=== PATIENT | male | born 1945 | race Caucasian/White ===

== ENCOUNTER 2022-12-01 10:36 | Outpatient (RCR) | payer OTHER, SELFPAY | END 2023-03-08 13:46 | disposition home or self-care (01) | PROVIDERS: PCP Family Medicine; Visit Provider Specialist | DX: M48.062 Spinal stenosis, lumbar region with neurogenic claudication (principal); M54.50 Low back pain, unspecified; Z74.09 Other reduced mobility; M62.81 Muscle weakness (generalized); Z51.89 Encounter for other specified aftercare | CPT/HCPCS: 97110; 97162 ==

== ENCOUNTER 2023-03-17 12:43 | Emergency (ER) | payer OTHER, SELFPAY ==
[2023-03-17 13:26] VITALS: BP 189/69; PULSE 100; RESP 16; TEMP 36.9; O2SAT 95; BMI 26.3
[2023-03-17 13:49] LABS: Appearance Urine Clear (Clear); Bilirubin Urine Negative (Negative); Blood Urine Trace-intact (Negative); Color Urine Yellow (Yellow); Glucose Urine Negative (Negative); Ketones Urine 1+ (Negative); Leukocyte Esterase Urine Negative (Negative); Nitrite Urine Negative (Negative); Protein Urine 1+ (Negative); Specific Gravity Urine 1.015 (1.000-1.030); Urobilinogen Urine 0.2 (0.2-1.0)
[2023-03-17 13:57] LABS: RBC Urine 0-2 (0-2); WBC Urine 0-2 (0-5)
--- NOTE | 2023-03-17 14:03 | ED_ITS ---
HPI - General Adult General Time Seen by Provider: 14:03 Date Seen: 03/17/23 Chief complaint: Back Injury/Pain Stated complaint: Pinched nerves in back Time Seen by Provider: 03/17/23 13:21 Source: patient Mode of arrival: wheelchair Limitations: physical limitation History of Present Illness HPI narrative: Patient is a 78 year white male has has significant lumbar spinal stenosis and Dr. Diamond terrell at [facility] is scheduled to do a decompression within the next 2 weeks. The patient reports his pain is intense. He has tried tramadol, tried oxycodone recently. He has used oxycodone 3 to 4 times a day without much relief. He is having trouble sleeping. He has not lost control of his bowel or bladder. His pain is just increased but he is feeling about the same as he has only just more pain. He denies significant weakness in his legs, he denies any bladder bowel incontinence as mention. He actually has imaging scheduled for tonight at 6:00 p.m. preoperatively. He has no history of sleep apnea or breathing difficulty., with exception of some mild COPD. He really has at his wits end in terms of pain and states ?I need help with this ?. Related Data Home Medications Medication Instructions Recorded Confirmed ascorbic acid (vitamin C) 500 mg 1 cap PO DAILY 08/05/22 03/17/23 capsule aspirin 325 mg tablet 325 mg PO QDAY 08/05/22 03/17/23 ergocalciferol (vitamin D2) 10 mcg 400 unit PO Q OTHER DAY 08/05/22 03/17/23 (400 unit) tablet latanoprost 0.005 % eye drops 1 drp ophthalmic (eye) QDAY 08/05/22 03/17/23 multivitamin (Multiple Vitamins 1 tab PO QDAY 08/05/22 03/17/23 tablet) nitroglycerin 0.4 mg sublingual 0.4 mg sublingual Q5-15M PRN 08/05/22 03/17/23 tablet Previous Rx's Medication Instructions Recorded alprazolam 0.25 mg tablet 0.25 mg PO BID PRN anxiety #60 tabs 12/17/22 simvastatin 20 mg tablet 20 mg PO QPM #180 tabs 02/01/23 lisinopril 20 mg tablet 20 mg PO DAILY #30 tabs 02/04/23 tramadol 50 mg tablet 50 - 100 mg (1 - 2 x 50 mg) PO Q6H 02/05/23 PRN pain #60 tabs oxycodone-acetaminophen 5 mg-325 1 tab PO Q6H PRN pain #28 tabs 03/15/23 mg tablet fentanyl 12 mcg/hr transdermal 1 patch transdermal Q72H #5 ea 03/17/23 patch Allergies Allergy/AdvReac Type Severity Reaction Status Date / Time No Known Allergies Allergy Unknown Unknown Verified 03/17/23 13:24 Review of Systems Status of ROS: Reports: 6 or more systems reviewed and unremarkable except as noted in History and below [facility] Medical History History of tinnitus (09/18/09) ?Z86.69 - Personal history of other diseases of the nervous system and sense organs (ICD-10) Surgical History S/P anal fissurectomy ?Z98.890 - Other specified postprocedural states (ICD-10) ?Z87.19 - Personal history of other diseases of the digestive system (ICD-10) Status post coronary artery stent placement ?Z95.5 - Presence of coronary angioplasty implant and graft (ICD-10) Status post cataract extraction ?Z98.49 - Cataract extraction status, unspecified eye (ICD-10) History of tonsillectomy and adenoidectomy (03/07/13) ?Z90.89 - Acquired absence of other organs (ICD-10) History of rhinoplasty (03/07/13) ?Z98.890 - Other specified postprocedural states (ICD-10) Social History Smoking Status: Current every day smoker What tobacco products do you use: cigarettes Smoking packs per day: 0 Smoking cigarettes per day: 0.0 Do you use any of these nicotine containing products: None Second hand tobacco smoke exposure: No How often do you have a drink containing alcohol: never AUDIT-C Alcohol total score: 0 Non-prescribed substance use: denies use service: Yes Exam Narrative: Exam Narrative: Objective: Patient's vital signs show elevated systolic pressure, afebrile Alert orient x3 Lower extremities show good strength sensation Good peripheral perfusion noted no swelling in the legs. Const: Vital Signs, click to edit/add: Vital Signs - 24 hr 03/17/23 13:26 03/17/23 14:28 03/17/23 15:02 Temperature 98.5 F 98.5 F Pulse Rate [Pulse Oximeter] 100 100 88 Respiratory Rate 16 18 18 Blood Pressure [Ri ght Upper Arm] 189/69 H 184/89 H 161/76 H Pulse Oximetry 95 94 Oxygen Delivery Me thod Room Air Room Air Course Vital Signs Vital signs: Initial Vital Signs Temperature 98.5 F 03/17/23 13:26 Temperature Source Temporal Artery Scan 03/17/23 13:26 Pulse Rate 100 03/17/23 13:26 Pulse Rhythm Regular 03/17/23 13:26 Pulse Strength 3+ Normal 03/17/23 13:26 Respiratory Rate 16 03/17/23 13:26 Blood Pressure 189/69 H 03/17/23 13:26 Blood Pressure Mean 109 H 03/17/23 13:26 Blood Pressure Position Sitting 03/17/23 13:26 Pulse Oximetry 95 03/17/23 13:26 Oxygen Delivery Method Room Air 03/17/23 13:26 Vital Signs Temperature 98.5 F 03/17/23 13:26 Pulse Rate 100 03/17/23 13:26 Respiratory Rate 16 03/17/23 13:26 Blood Pressure 189/69 H 03/17/23 13:26 Pulse Oximetry 95 03/17/23 13:26 Oxygen Delivery Method Room Air 03/17/23 13:26 Temperature 98.5 F 03/17/23 15:02 Pulse Rate 88 03/17/23 15:02 Respiratory Rate 18 03/17/23 15:02 Blood Pressure 161/76 H 03/17/23 15:02 Pulse Oximetry 94 03/17/23 15:02 Oxygen Delivery Method Room Air 03/17/23 15:02 Medical Decision Making MDM Narrative Medical decision making narrative: [age] year white male with history of severe low back pain from lumbar spinal stenosis, scheduled for surgery within the next couple of weeks. At this point he has been using oxycodone regularly without much benefit. I think it be reasonable to given injection of morphine 7.5 mg IM, I think we could try a fentanyl patch 12.5 mg every 72 hours, and he could use 1 oxycodone as annetta akthrough pain relief. Would use the oxycodone very sparingly and maybe only once or twice a day. He has no history of obstructive sleep apnea or breathing difficulty. I do think at this time he needs some relief from his pain and he is in quite a bit of discomfort and appears quite miserable. He will follow up as directed, if he is doing well, if problems or concerns or return to ED at any time. Lab Data Labs: Lab Results 03/17/23 Range/Units 13:36 Urine Color Yellow (Yellow) Urine Appearance Clear (Clear) Urine pH 6.0 (5.0-8.5) Ur Specific [place] 1.015 (1.000-1.030) Urine Protein 1+ A (Negative) Urine Glucose (UA) Negative (Negative) Urine Ketones 1+ A (Negative) Urine Blood Trace-intact A (Negative) Urine Nitrite Negative (Negative) Urine Bilirubin Negative (Negative) Urine Urobilinogen 0.2 (0.2-1.0) Ur Leukocyte Esterase Negative (Negative) Urine RBC 0-2 (0-2) Urine WBC 0-2 (0-5) Ur Squamous Epith Cells None (None-Few) Urine Bacteria None (None) Discharge Plan Discharge Clinical Impression: Lumbar spinal stenosis Patient Disposition: Home w/ Parent or Adult Condition: Stable Additional Instructions: Light activity, gentle range of motion, trial of a fentanyl patch, may use an oxycodone if pain is severe. Update surgeons in the next few days. Return to ED as needed. Activity Level: Light activity Discharge Diet: Regular Prescriptions: New fentanyl 12 mcg/hr patch 72 hour 1 patch transdermal Q72H Qty: 5 0RF No Action aspirin 325 mg tablet 325 mg PO QDAY multivitamin [Multiple Vitamins] Tablet 1 tab PO QDAY nitroglycerin 0.4 mg tablet, sublingual 0.4 mg sublingual Q5-15M PRN Rx Instructions: PRN CHEST PAIN/ MAX 3 DOSES latanoprost 0.005 % drops 1 drp ophthalmic (eye) QDAY ergocalciferol (vitamin D2) 10 mcg (400 unit) tablet 400 unit PO Q OTHER DAY ascorbic acid (vitamin C) 500 mg capsule 1 cap PO DAILY alprazolam 0.25 mg tablet 0.25 mg PO BID PRN (Reason: anxiety) Qty: 60 2RF simvastatin 20 mg tablet 20 mg PO QPM Qty: 180 1RF lisinopril 20 mg tablet 20 mg PO DAILY Qty: 30 0RF tramadol 50 mg tablet 50 - 100 mg PO Q6H PRN (Reason: pain) Qty: 60 1RF Hold Instructions: Order Change oxycodone-acetaminophen 5-325 mg tablet 1 tab PO Q6H PRN (Reason: pain) Qty: 28 0RF Follow Up/Referrals: Marco A Buckley MD [Primary Care Provider] - Stand Alone Forms: [employer] Info Instructions
[2023-03-17] MEDS: MORPHINE 10 MG/ML inj 7.5 MG IM (14:26)
[2023-03-17 14:28] VITALS: BP 184/89; PULSE 100; RESP 18
[2023-03-17 15:02] VITALS: BP 161/76; PULSE 88; RESP 18; TEMP 36.9; O2SAT 94
--- NOTE | 2023-03-17 15:04 | ED.NURSE ---
Pt is A & Ox4, tolerated IM medication and stated pain is less Instructions given and understands D/C information. notified of pt having higher BPs SBP 160-180s, okay with pt discharging.
== END 2023-03-17 15:05 | disposition home or self-care (01) ==
LOC: ED 14:15
PROVIDERS: Emergency Provider Family Medicine; PCP Family Medicine
DX: M48.061 Spinal stenosis, lumbar region without neurogenic claudication (principal)
CPT/HCPCS: 81001; 96372; 99283; 99284; J2270

== ENCOUNTER 2023-03-24 18:23 | Emergency (ER) | payer OTHER, SELFPAY ==
[2023-03-24] VITALS (16 sets, daily range): BP systolic 169–183; BP diastolic 81–88; PULSE 77–97; RESP 16–18; TEMP 37.1; O2SAT 92–96; BMI 26.9
--- NOTE | 2023-03-24 18:33 | ED_ITS ---
HPI - General Adult General Chief complaint: Abdominal Pain <Raulito Leslie MD - Last Filed: 03/30/23 11:27> Stated complaint: Abdominal pain--mass in body <Raulito Leslie MD - Last Filed: 03/30/23 11:27> Time Seen by Provider: 03/24/23 18:32 <Raulito Leslie MD - Last Filed: 03/30/23 11:27> History of Present Illness HPI narrative: 78-year-old man presenting to the emergency department upon recommendation from urgent care where he was to have a preop for radicular symptoms from lumbar spinal stenosis; anticipated decompression surgery. Concern expressed by provider was that he had a pelvic mass, lumbar MRI from 2 days ago thought to be diverticular related abscess and has elevated white count. No fever. Mr. Wu was anticipating spinal decompression for severe lumbar back pain from spinal stenosis. Sounds to have been struggling with constipation. Had been taking tramadol but this last week was changed also to a fentanyl patch which has improved degree of pain tremendously. Also takes 5/325 Percocet q.i.d. Would say that over last couple of weeks feels like has to strain more at stool. Producing little. Some discomfort more in in the low abdomen/pelvis over the last 2 days. Has also been having some urinary frequency. Has had 2 colonosc opies. Last 1 was 8 years ago. He reports that in 1 of the 2 a benign polyp was found. Underlying history of coronary artery disease status post stenting. Continues to smoke. Does not have known history of CHF either systolic or diastolic. Has however over last few days had significant painless swelling in his legs. <Raulito Leslie MD - Last Filed: 03/30/23 11:27> Related Data Home medications: Home Medications Medication Instructions Recorded Confirmed ascorbic acid (vitamin C) 500 mg 1 cap PO DAILY 08/05/22 03/24/23 capsule aspirin 325 mg tablet 325 mg PO QDAY 08/05/22 03/24/23 ergocalciferol (vitamin D2) 10 mcg 400 unit PO Q OTHER DAY 08/05/22 03/24/23 (400 unit) tablet latanoprost 0.005 % eye drops 1 drp ophthalmic (eye) QDAY 08/05/22 03/24/23 multivitamin (Multiple Vitamins 1 tab PO QDAY 08/05/22 03/24/23 tablet) nitroglycerin 0.4 mg sublingual 0.4 mg sublingual Q5-15M PRN 08/05/22 03/24/23 tablet Previous Rx's Medication Instructions Recorded alprazolam 0.25 mg tablet 0.25 mg PO BID PRN anxiety #60 tabs 12/17/22 simvastatin 20 mg tablet 20 mg PO QPM #180 tabs 02/01/23 lisinopril 20 mg tablet 20 mg PO DAILY #30 tabs 02/04/23 tramadol 50 mg tablet 50 - 100 mg (1 - 2 x 50 mg) PO Q6H 02/05/23 PRN pain #60 tabs fentanyl 12 mcg/hr transdermal 1 patch transdermal Q72H #5 ea 03/17/23 patch oxycodone-acetaminophen 5 mg-325 1 tab PO Q6H PRN pain #56 tabs 03/22/23 mg tablet amoxicillin 875 mg-potassium 1 tab PO BID 14 days #28 tabs 03/26/23 clavulanate 125 mg tablet <Raulito Leslie MD - Last Filed: 03/30/23 11:27> Allergies/adverse reactions: Allergies Allergy/AdvReac Type Severity Reaction Status Date / Time No Known Allergies Allergy Unknown Unknown Verified 03/24/23 18:41 <Raulito Leslie MD - Last Filed: 03/30/23 11:27> Review of Systems Status of ROS: Reports: 6 or more systems reviewed and unremarkable except as noted in History and below <Raulito Leslie MD - Last Filed: 03/30/23 11:27> [facility] Medical History: Medical History Peripheral edema ?R60.9 - Edema, unspecified (ICD-10) Pelvic mass in male ?R19.00 - Intra-abdominal and pelvic swelling, mass and lump, unspecified site (ICD-10) History of tinnitus (09/18/09) ?Z86.69 - Personal history of other diseases of the nervous system and sense organs (ICD-10) <Raulito Leslie MD - Last Filed: 03/30/23 11:27> Surgical History: Surgical History S/P anal fissurectomy ?Z98.890 - Other specified postprocedural states (ICD-10) ?Z87.19 - Personal history of other diseases of the digestive system (ICD-10) Status post coronary artery stent placement ?Z95.5 - Presence of coronary angioplasty implant and graft (ICD-10) Status post cataract extraction ?Z98.49 - Cataract extraction status, unspecified eye (ICD-10) History of tonsillectomy and adenoidectomy (03/07/13) ?Z90.89 - Acquired absence of other organs (ICD-10) History of rhinoplasty (03/07/13) ?Z98.890 - Other specified postprocedural states (ICD-10) <Raulito Leslie MD - Last Filed: 03/30/23 11:27> Social History: Social History Smoking Status: Current every day smoker What tobacco products do you use: cigarettes Smoking packs per day: 2 Smoking cigarettes per day: 40.0 Years smoked: 65 Smoking pack-years: 130.00 Do you use any of these nicotine containing products: None Second hand tobacco smoke exposure: No How often do you have a drink containing alcohol: never AUDIT-C Alcohol total score: 0 Non-prescribed substance use: denies use service: Yes <Raulito Leslie MD - Last Filed: 03/30/23 11:27> Exam Narrative: Exam Narrative: Very pleasant. Talkative. Oropharynx is moist. Dentures. Is breathing easily. Lungs appear to be clear. Heart with elevated rate in a regular rhythm without murmur rub or gallop though admittedly little distant. Abdomen with normoactive bowel sounds is full, soft, nontender though with repeated palpation a little uncomfortable in the low pelvis. I cannot appreciate a mass here. Is well-perfused peripherally. Lower extremities with a knee sleeve on the left knee. 1+ pitting edema above the knees through the feet. <Raulito Leslie MD - Last Filed: 03/30/23 11:27> Const: Vital Signs, click to edit/add: Vital Signs - 24 hr 03/24/23 18:36 03/24/23 18:45 03/24/23 19:00 Temperature 98.7 F Pulse Rate 92 93 Pulse Rate [Pulse Oximeter] 97 Respiratory Rate 16 Blood Pressure Blood Pressure [Ri ght Upper Arm] 176/88 H Pulse Oximetry 95 96 96 Oxygen Delivery Me thod Room Air 03/24/23 19:02 03/24/23 20:20 03/24/23 20:30 Temperature Pulse Rate 92 81 Pulse Rate [Pulse Oximeter] Respiratory Rate Blood Pressure 169/84 H Blood Pressure [Ri ght Upper Arm] Pulse Oximetry 92 93 Oxygen Delivery Me thod 03/24/23 20:32 03/24/23 20:45 03/24/23 21:09 Temperature Pulse Rate 80 86 83 Pulse Rate [Pulse Oximeter] Respiratory Rate Blood Pressure 178/87 H 179/84 H Blood Pressure [Ri ght Upper Arm] Pulse Oximetry 92 92 95 Oxygen Delivery Me thod 03/24/23 21:10 03/24/23 21:15 03/24/23 21:30 Temperature Pulse Rate 81 78 79 Pulse Rate [Pulse Oximeter] Respiratory Rate Blood Pressure Blood Pressure [Ri ght Upper Arm] Pulse Oximetry 94 93 94 Oxygen Delivery Me thod 03/24/23 21:31 03/24/23 21:45 03/24/23 23:37 Temperature Pulse Rate 79 80 77 Pulse Rate [Pulse Oximeter] Respiratory Rate 18 Blood Pressure 179/81 H 183/86 H Blood Pressure [Ri ght Upper Arm] Pulse Oximetry 94 92 93 Oxygen Delivery Me thod Room Air 03/25/23 01:28 Temperature Pulse Rate Pulse Rate [Pulse Oximeter] 78 Respiratory Rate 18 Blood Pressure Blood Pressure [Ri ght Upper Arm] Pulse Oximetry 93 Oxygen Delivery Me thod Room Air <Raulito Leslie MD - Last Filed: 03/30/23 11:27> Vital Signs, click to edit/add: Vital Signs - 24 hr 03/24/23 18:36 03/24/23 18:45 03/24/23 19:00 Temperature 98.7 F Pulse Rate 92 93 Pulse Rate [Pulse Oximeter] 97 Respiratory Rate 16 Blood Pressure Blood Pressure [Ri ght Upper Arm] 176/88 H Pulse Oximetry 95 96 96 Oxygen Delivery Me thod Room Air 03/24/23 19:02 03/24/23 20:20 03/24/23 20:30 Temperature Pulse Rate 92 81 Pulse Rate [Pulse Oximeter] Respiratory Rate Blood Pressure 169/84 H Blood Pressure [Ri ght Upper Arm] Pulse Oximetry 92 93 Oxygen Delivery Me thod 03/24/23 20:32 03/24/23 20:45 03/24/23 21:09 Temperature Pulse Rate 80 86 83 Pulse Rate [Pulse Oximeter] Respiratory Rate Blood Pressure 178/87 H 179/84 H Blood Pressure [Ri ght Upper Arm] Pulse Oximetry 92 92 95 Oxygen Delivery Me thod 03/24/23 21:10 03/24/23 21:15 03/24/23 21:30 Temperature Pulse Rate 81 78 79 Pulse Rate [Pulse Oximeter] Respiratory Rate Blood Pressure Blood Pressure [Ri ght Upper Arm] Pulse Oximetry 94 93 94 Oxygen Delivery Me thod 03/24/23 21:31 03/24/23 21:45 03/24/23 23:37 Temperature Pulse Rate 79 80 77 Pulse Rate [Pulse Oximeter] Respiratory Rate 18 Blood Pressure 179/81 H 183/86 H Blood Pressure [Ri ght Upper Arm] Pulse Oximetry 94 92 93 Oxygen Delivery Me thod Room Air 03/25/23 01:28 Temperature Pulse Rate Pulse Rate [Pulse Oximeter] 78 Respiratory Rate 18 Blood Pressure Blood Pressure [Ri ght Upper Arm] Pulse Oximetry 93 Oxygen Delivery Me thod Room Air <River Moon MD - Last Filed: 03/25/23 02:17> Documenting provider has reviewed patient's vital signs: yes <Raulito Leslie MD - Last Filed: 03/30/23 11:27> Course Reevaluation(s) Time of Reevaluation #1: 01:09 <River Moon MD - Last Filed: 03/25/23 02:17> Reevaluation #1: Patient accepted in sign-out from Dr. Rodriguez. Please see his note for complete details. Briefly, this is a 78-year-old male who has been dealing with back pain for last several months, MRI done about a week ago demonstrated multilevel degeneration but also a soft tissue mass with air-fluid level in the pelvis, patient was referred to the emergency department for further evaluation. [place] [address], CT scan demonstrates two pelvic abscess not amenable to percutaneous drainage. Care discussed with general surgery at [place] who feels that because the abscess is deep, this is a surgical case that would be better off at a site with surgical ICU capability. 1:20 a.m. care was discussed with Dr. Chavez, hospitalist at [facility] who would like me to consult with Colorectal surgery. Care was discussed with colorectal surgeryat [facility], concern that the abscess is deep and abuts the spine, recommends consultation with [facility]. 1:51 a.m. Care discussed with Dr. Miller, [facility] colorectal who recommends transfer to [facility] ED for further evaluation. Patient accepted by Dr. Ashley, emergency department. Updated patient's spouse. <River Moon MD - Last Filed: 03/25/23 02:17> Vital Signs Vital signs: Initial Vital Signs Temperature 98.7 F 03/24/23 18:36 Temperature Source Temporal Artery Scan 03/24/23 18:36 Pulse Rate 97 03/24/23 18:36 Pulse Rhythm Regular 03/24/23 18:36 Pulse Strength 3+ Normal 03/24/23 18:36 Respiratory Rate 16 03/24/23 18:36 Blood Pressure 176/88 H 03/24/23 18:36 Blood Pressure Mean 117 H 03/24/23 18:36 Blood Pressure Position Semi-Fowlers 03/24/23 18:36 Pulse Oximetry 95 03/24/23 18:36 Oxygen Delivery Method Room Air 03/24/23 18:36 Vital Signs Temperature 98.7 F 03/24/23 18:36 Pulse Rate 97 03/24/23 18:36 Respiratory Rate 16 03/24/23 18:36 Blood Pressure 176/88 H 03/24/23 18:36 Pulse Oximetry 95 03/24/23 18:36 Oxygen Delivery Method Room Air 03/24/23 18:36 Temperature 98.7 F 03/24/23 18:36 Pulse Rate 86 03/25/23 02:21 Respiratory Rate 18 03/25/23 01:28 Blood Pressure 168/74 H 03/25/23 02:21 Pulse Oximetry 90 03/25/23 02:25 Oxygen Delivery Method Room Air 03/25/23 01:28 <Raulito Leslie MD - Last Filed: 03/30/23 11:27> Initial Vital Signs Temperature 98.7 F 03/24/23 18:36 Temperature Source Temporal Artery Scan 03/24/23 18:36 Pulse Rate 97 03/24/23 18:36 Pulse Rhythm Regular 03/24/23 18:36 Pulse Strength 3+ Normal 03/24/23 18:36 Respiratory Rate 16 03/24/23 18:36 Blood Pressure 176/88 H 03/24/23 18:36 Blood Pressure Mean 117 H 03/24/23 18:36 Blood Pressure Position Semi-Fowlers 03/24/23 18:36 Pulse Oximetry 95 03/24/23 18:36 Oxygen Delivery Method Room Air 03/24/23 18:36 Vital Signs Temperature 98.7 F 03/24/23 18:36 Pulse Rate 97 03/24/23 18:36 Respiratory Rate 16 03/24/23 18:36 Blood Pressure 176/88 H 03/24/23 18:36 Pulse Oximetry 95 03/24/23 18:36 Oxygen Delivery Method Room Air 03/24/23 18:36 Temperature 98.7 F 03/24/23 18:36 Pulse Rate 86 03/25/23 02:21 Respiratory Rate 18 03/25/23 01:28 Blood Pressure 168/74 H 03/25/23 02:21 Pulse Oximetry 90 03/25/23 02:25 Oxygen Delivery Method Room Air 03/25/23 01:28 <River Moon MD - Last Filed: 03/25/23 02:17> Medical Decision Making MDM Narrative Medical decision making narrative: Reviewing notes from urgent care provider today and post MRI report, recommendations look to be for a contrasted CT abdomen pelvis with IV and oral contrast to elucidate this pelvic mass. Will also do a bladder scan. Bladder scan for 115 mL. Had both CBC and comprehensive metabolic panel earlier today. Will add to that CRP. IV hydration. White count earlier today was 13.9. Hemoglobin is 10.9 down 3 and a half g since July of this year. Platelets are elevated at 575. Creatinine is 0.8. CT scan reviewed by me clearly shows pelvic mass with some inflammatory stranding. In the area of the sigmoid. See radiology read below. INDICATION: Pelvic mass seen on lumbar MRI, leukocytosis TECHNIQUE: CT abdomen and pelvis acquired with IV contrast. COMPARISON: MRI pelvis report FINDINGS: Lower chest: Mild subpleural pulmonary fibrotic changes. Liver: Unremarkable. Spleen: Unremarkable. Pancreas: Unremarkable. Gallbladder and bile ducts: Unremarkable. Adrenal glands: Unremarkable. Kidneys: Simple cyst on the right kidney. Mild left hydronephrosis and hydroureter down to the level of the fluid collections in the pelvis. GI tract: Wall thickening of the mid sigmoid colon with mild surrounding fat stranding. There are two rim enhancing air and fluid collections adjacent to the sigmoid colon. One measures 2.2 x 1.9 x 2.1 cm and is best seen on image 76 series 2. The adjacent, larger rim enhancing air and fluid collection measures 5.2 x 4.5 x 4.3 cm. Vascular structures: Aortoiliac calcifications. Lymph nodes: Unremarkable. Miscellaneous: Unremarkable. No free air or significant free fluid. Pelvic Organs: The left testicle is located in the inguinal canal. Bones: Moderate to severe multilevel degenerative disc and facet changes. No suspicious osseous lesions. IMPRESSION: Two fluid collections adjacent to the sigmoid colon. This may be sequelae of diverticulitis or neoplasm. There is some mild wall thickening of the mid sigmoid colon and mild surrounding fat stranding. The collections are unlikely to be able to be drained by an interventional radiology drain. Mild left hydronephrosis and hydroureter down to the level of the fluid collections in the pelvis. There is no stone within the ureter. The left testicle is located in the inguinal canal. This is of unknown acuity. Mild subpleural pulmonary fibrosis. Findings discussed with Dr. Leslie at 5:58 p.m. on March 24, 2023. Did discuss these findings with radiology. Furthermore went back to recheck location of this left testicle. It is easily placed within the scrotum. Concern of ability for IR access per radiology. Did discuss with our hospitalist and General surgery on-call whether not Mr. Wu is somebody we can care for here. Concern of location of these abscesses and potential complication/involvement of retroperitoneal space in the setting of comorbidities and need for SICU postop. Challenging tertiary facility bed situation at this point. We have been calling around. This point spoke with drop machine operator and then general surgery Dr. Blevins at [place] where Mr. Wu has been cared for prior. There would be accepting him on wait list. Has needed a couple of doses of Dilaudid for pain management. Continuing NPO at this point. Blood cultures were drawn times 2 and initiated on Zosyn. Will be handed off at change of shift <Raulito Leslie MD - Last Filed: 03/30/23 11:27> Medical Records Medical records reviewed: Yes I reviewed the patient's medical records <Raulito Leslie MD - Last Filed: 03/30/23 11:27> Lab Data Lab results reviewed: Yes I reviewed the patient's lab results <Raluito Leslie MD - Last Filed: 03/30/23 11:27> Labs: Lab Results 03/24/23 Range/Units 23:55 Lab Acknowledgement Test Added <Raulito Leslie MD - Last Filed: 03/30/23 11:27> Lab Results 03/24/23 Range/Units 23:55 Lab Acknowledgement Test Added <River Moon MD - Last Filed: 03/25/23 02:17> Discharge Plan Discharge Clinical Impression: Pelvic abscess, Diverticular disease, Peripheral edema, Ureteral obstruction, left <Raulito Leslie MD - Last Filed: 03/30/23 11:27> Patient Disposition: Xfer Other <Raulito Leslie MD - Last Filed: 03/30/23 11:27> Prescriptions: No Action aspirin 325 mg tablet 325 mg PO QDAY multivitamin [Multiple Vitamins] Tablet 1 tab PO QDAY nitroglycerin 0.4 mg tablet, sublingual 0.4 mg sublingual Q5-15M PRN Rx Instructions: PRN CHEST PAIN/ MAX 3 DOSES latanoprost 0.005 % drops 1 drp ophthalmic (eye) QDAY ergocalciferol (vitamin D2) 10 mcg (400 unit) tablet 400 unit PO Q OTHER DAY ascorbic acid (vitamin C) 500 mg capsule 1 cap PO DAILY fentanyl 12 mcg/hr patch 72 hour 1 patch transdermal Q72H Qty: 5 0RF alprazolam 0.25 mg tablet 0.25 mg PO BID PRN (Reason: anxiety) Qty: 60 2RF simvastatin 20 mg tablet 20 mg PO QPM Qty: 180 1RF lisinopril 20 mg tablet 20 mg PO DAILY Qty: 30 0RF tramadol 50 mg tablet 50 - 100 mg PO Q6H PRN (Reason: pain) Qty: 60 1RF Hold Instructions: Order Change oxycodone-acetaminophen 5-325 mg tablet 1 tab PO Q6H PRN (Reason: pain) Qty: 56 0RF amoxicillin-pot clavulanate 875-125 mg tablet 1 tab PO BID 14 Days Qty: 28 0RF <Raulito Leslie MD - Last Filed: 03/30/23 11:27> Stand Alone Forms: MyHealth Info Instructions <Raulito Leslie MD - Last Filed: 03/30/23 11:27>
--- NOTE | 2023-03-24 19:02 | CRLHL7_ITS ---
For Patients: As a result of the Century Cures Act, medical imaging exams and procedure reports are released immediately into your electronic medical record. You may view this report before your referring provider. If you have questions, please contact your health care provider. INDICATION: Pelvic mass seen on lumbar MRI, leukocytosis TECHNIQUE: CT abdomen and pelvis acquired with IV contrast. COMPARISON: MRI pelvis report FINDINGS: Lower chest: Mild subpleural pulmonary fibrotic changes. Liver: Unremarkable. Spleen: Unremarkable. Pancreas: Unremarkable. Gallbladder and bile ducts: Unremarkable. Adrenal glands: Unremarkable. Kidneys: Simple cyst on the right kidney. Mild left hydronephrosis and hydroureter down to the level of the fluid collections in the pelvis. GI tract: Wall thickening of the mid sigmoid colon with mild surrounding fat stranding. There are two rim enhancing air and fluid collections adjacent to the sigmoid colon. One measures 2.2 x 1.9 x 2.1 cm and is best seen on image 76 series 2. The adjacent, larger rim enhancing air and fluid collection measures 5.2 x 4.5 x 4.3 cm. Vascular structures: Aortoiliac calcifications. Lymph nodes: Unremarkable. Miscellaneous: Unremarkable. No free air or significant free fluid. Pelvic Organs: The left testicle is located in the inguinal canal. Bones: Moderate to severe multilevel degenerative disc and facet changes. No suspicious osseous lesions. IMPRESSION: Two fluid collections adjacent to the sigmoid colon. This may be sequelae of diverticulitis or neoplasm. There is some mild wall thickening of the mid sigmoid colon and mild surrounding fat stranding. The collections are unlikely to be able to be drained by an interventional radiology drain. Mild left hydronephrosis and hydroureter down to the level of the fluid collections in the pelvis. There is no stone within the ureter. The left testicle is located in the inguinal canal. This is of unknown acuity. Mild subpleural pulmonary fibrosis. Findings discussed with Dr. Leslie at 5:58 p.m. on March 24, 2023. Please note that all CT scans at this facility use dose modulation, iterative reconstruction, and/or weight-based dosing when appropriate to reduce radiation dose to as low as reasonably achievable. Dictated by Luanne Mishra MD @ 03/24/2023 9:10:46 PM (Electronically Signed)
[2023-03-24] MEDS: 0.9 % SODIUM CHLORIDE 1000 ml 1,000 ML IV (19:25)
[2023-03-24] MEDS: HYDROmorphone 0.5 mg/0.5 ml inj IVP (20:53)
[2023-03-24] MEDS: PIPERACILLIN/TAZOBACTAM 3.375 GM in 0.9 % SODIUM CHLORIDE Mini-bag 100 ML IVPB (22:15)
[2023-03-24] MEDS: HYDROmorphone 0.5 mg/0.5 ml inj 1 MG IVP (23:51)
[2023-03-25] MEDS: 0.9 % SODIUM CHLORIDE 1000 ml 1,000 ML 150 ML IV (00:01)
[2023-03-25 01:28] VITALS: PULSE 78; RESP 18; O2SAT 93
--- NOTE | 2023-03-25 02:09 | PC.NURSE ---
[facility]
[2023-03-25 02:21] VITALS: BP 168/74; PULSE 86; O2SAT 90
[2023-03-25 02:25] VITALS: O2SAT 90
[2023-03-25] MEDS: HYDROmorphone 0.5 mg/0.5 ml inj IVP (02:30)
--- NOTE | 2023-03-25 02:39 | PC.NURSE ---
Addendum entered by Aria Galaviz RN 03/25/23 03:02: all belongings sent with . Original Note: patient left via EMS.
== END 2023-03-25 02:40 | disposition other institution (70) ==
PROVIDERS: Family Medicine; Emergency Provider Family Medicine; PCP Family Medicine
DX: K65.1 Peritoneal abscess (principal); R60.0 Localized edema; N13.5 Crossing vessel and stricture of ureter without hydronephrosis
CPT/HCPCS: 36415; 51798; 74177; 80053; 82565; 84153; 86140; 87040; 87086; 94761; 96365; 96375; 96376; 99285; J1170; J2543; J7030; Q9967

== ENCOUNTER 2023-03-25 02:26 | Outpatient (CLI) | payer OTHER, SELFPAY | END 2023-03-25 02:27 | disposition home or self-care (01) | LOC: AMB 03-26 14:42 | PROVIDERS: PCP Family Medicine; Visit Provider Family Medicine | DX: K65.1 Peritoneal abscess (principal); K57.20 Diverticulitis of large intestine with perforation and abscess without bleeding | CPT/HCPCS: A0425; A0433 ==

== ENCOUNTER 2023-04-09 09:34 | Outpatient (CLI) | payer OTHER, SELFPAY | END 2023-04-09 09:35 | disposition home or self-care (01) | PROVIDERS: PCP Family Medicine; Visit Provider Family Medicine | DX: E78.5 Hyperlipidemia, unspecified (principal); I10 Essential (primary) hypertension; D64.9 Anemia, unspecified | CPT/HCPCS: 80048; 86140 ==

== ENCOUNTER 2023-04-20 09:26 | Outpatient (CLI) | payer OTHER, SELFPAY ==
--- NOTE | 2023-04-20 10:00 | CRLHL7_ITS ---
For Patients: As a result of the Century Cures Act, medical imaging exams and procedure reports are released immediately into your electronic medical record. You may view this report before your referring provider. If you have questions, please contact your health care provider. Indication: Peritoneal abscess Technique: Postcontrast CT abdomen and pelvis. 84 cc Isovue 370 intravenous contrast. Please note that all CT scans at this facility use dose modulation, iterative reconstruction, and/or weight-based dosing when appropriate to reduce radiation dose to as low as reasonably achievable. Comparison: 03/24/2023 Findings: Fibrotic changes are present in both lung bases. No free intraperitoneal air. No intrahepatic masses. Gallbladder normal. No calcified gallstones or biliary obstruction. The spleen is within normal limits. Normal adrenal glands. Simple cyst arises from the upper pole of the right kidney. Left extrarenal pelvis. Extensive vascular calcifications are present. There is ectasia of the aorta. No pancreatic mass. Similar appearance of the inguinal canal on the left with incomplete left testicular migration. Decreased size of abscess beneath the aortic bifurcation containing air and fluid measuring 3.2 cm. No air in the bladder wall. No fracture. Degenerative changes Impression: Decreased size of abscess superior to the sigmoid colon and inferior to the aortic bifurcation. Please note that all CT scans at this facility use dose modulation, iterative reconstruction, and/or weight-based dosing when appropriate to reduce radiation dose to as low as reasonably achievable. Dictated by Raulito Carey MD @ 04/20/2023 12:32:18 PM (Electronically Signed)
== END 2023-04-20 09:27 | disposition home or self-care (01) ==
PROVIDERS: PCP Family Medicine; Visit Provider Family Medicine
DX: K65.1 Peritoneal abscess (principal)
CPT/HCPCS: 74177; Q9967

== ENCOUNTER 2023-05-04 13:36 | Outpatient (CLI) | payer OTHER, SELFPAY ==
--- NOTE | 2023-05-04 14:00 | CRLHL7_ITS ---
For Patients: As a result of the Century Cures Act, medical imaging exams and procedure reports are released immediately into your electronic medical record. You may view this report before your referring provider. If you have questions, please contact your health care provider. Indication: PERITONEAL ABSCESS Technique: Postcontrast CT abdomen and pelvis. 84 cc Isovue 370 intravenous contrast. Please note that all CT scans at this facility use dose modulation, iterative reconstruction, and/or weight-based dosing when appropriate to reduce radiation dose to as low as reasonably achievable. Comparison: 04/20/2023 Findings: Mild fibrotic changes are present within both lower lobes. No pleural effusion. No intrahepatic mass is present. The adrenal glands are normal. Normal spleen. Pancreas normal. Normal gallbladder. Simple cyst arises from the upper pole of the right kidney, as before. Similar extrarenal pelvis on the left. No hydronephrosis. Normal bladder. Ureters normal. Atherosclerotic changes with ectasia of the aorta. Similar appearance of the inguinal canals. Normal appendix. Sigmoid diverticulosis. Persistent circumscribed air and fluid collection superior to the sigmoid colon in the presacral space measuring 3.2 cm. 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 Surgical consultation recommended. Please note that all CT scans at this facility use dose modulation, iterative reconstruction, and/or weight-based dosing when appropriate to reduce radiation dose to as low as reasonably achievable. Dictated by Raulito Carey MD @ 05/05/2023 1:12:51 PM (Electronically Signed)
== END 2023-05-04 13:37 | disposition home or self-care (01) ==
LOC: CT 13:37
PROVIDERS: PCP Family Medicine; Visit Provider Family Medicine
DX: K65.1 Peritoneal abscess (principal)
CPT/HCPCS: 74177; Q9967

== ENCOUNTER 2023-05-27 12:32 | Outpatient (CLI) | payer OTHER, SELFPAY ==
--- NOTE | 2023-05-27 13:00 | CRLHL7_ITS ---
For Patients: As a result of the Century Cures Act, medical imaging exams and procedure reports are released immediately into your electronic medical record. You may view this report before your referring provider. If you have questions, please contact your health care provider. Indication: F/U PERITONEAL ABSCESS Technique: CT Abdomen/Pelvis 81CC ISOVUE 370 and water prep Please note that all CT scans at this facility use dose modulation, iterative reconstruction, and/or weight-based dosing when appropriate to reduce radiation dose to as low as reasonably achievable. Comparison: 05/04/2023, 04/20/2023, 03/24/2023 Findings: There is no significant interval change in the walled-off abscess containing air and fluid within the posterior midline of the upper pelvis adjacent to the left common iliac vessels measuring 3.2 cm. No air in the bladder. No bowel obstruction. No recurrent diverticulitis. Appendix normal. Incompletely descended left testicle incidentally noted. Mild prominence of the left renal collecting system and left ureter. No solid renal mass. Vascular calcifications with ectasia of the aorta. Simple cyst arising from the upper pole of the right kidney. Mild fatty liver. Gallbladder distended. No biliary obstruction. Spleen normal. Normal adrenal glands. Pancreas normal. Mild fibrotic changes within both lung bases. Multilevel degenerative disc disease and facet degeneration throughout the lumbar spine. No vertebral body compression fracture. Impression: No significant interval change in the chronic walled-off abscess in the posterior midline of the upper pelvis. Mild persistent left hydroureteronephrosis. Please note that all CT scans at this facility use dose modulation, iterative reconstruction, and/or weight-based dosing when appropriate to reduce radiation dose to as low as reasonably achievable. Dictated by Raulito Carey MD @ 05/28/2023 11:14:44 AM (Electronically Signed)
[2023-05-27 13:14] LABS: Creatinine* 0.7 mg/dL (0.5-1.5); Estimated Glomerular Filt Rate 94 ml/min
== END 2023-05-27 12:33 | disposition home or self-care (01) ==
LOC: CT 12:32
PROVIDERS: PCP Family Medicine; Visit Provider Family Medicine
DX: K65.1 Peritoneal abscess (principal); N13.30 Unspecified hydronephrosis
CPT/HCPCS: 36415; 74177; 82565; Q9967

== ENCOUNTER 2023-06-08 09:25 | Outpatient (CLI) | payer OTHER, SELFPAY | END 2023-06-08 09:26 | disposition home or self-care (01) | LOC: LONREF 09:26 | PROVIDERS: PCP Family Medicine; Visit Provider Family Medicine | DX: K65.1 Peritoneal abscess (principal) | CPT/HCPCS: 86140 ==

== ENCOUNTER 2023-06-14 13:37 | Outpatient (CLI) | payer OTHER, SELFPAY ==
--- OUTSIDE RECORDS SUMMARY | 2023-06-18 20:40 | XMS_ITS | Continuity of Care Document ---
Author Name Unknown Organization [facility] Address [address] [place] [address] Phone Care Team Providers Care Special Events Manager Name Role Phone Magalie Palumbo MD Unavailable [...] C, [address], [place], [address], [place] tel:[phone] [facility] No Information 3 Linwood Amisathya. [facility] [place], [address] [place] [address] [address], [place], [place], [address] , [place]. tel:[phone] Office/Outpat ient Visit,Est, Mod [facility], [address], [place], [address], [place] tel:[phone] [facility] Spinal stenosis, lumbar region with neurogenic claudication 3 Mehbod Amir. [facility], [address] [place] [address] [address], [place], [address] , [place]. tel:[phone] Referring Provider: Juan Pablo Amaya, [facility] [address], [place], [address]. tel:[phone] Office/Outpat ient Visit,[facility], [facility], [address], [place], [address], [place] tel:[phone] [facility] Low back painSpinal stenosis, lumbar region with neurogenic claudication 1 Kenzie Leary. [facility], [address], [place] [facility] [place], [address] , [place]. tel:[phone] Referring Provider: Juan Pablo Amaya, [facility] [address], [place], [address]. tel:[phone] Family History Family Member Type Diagnosis Age At Onset No Information Payers Payer name Insurance type Covered democrat ID Authoriza tion(s) Hum[employer] Medicare Gold Choice Ramesh [id number] Social History Type Description Quantity Date [...]
--- OUTSIDE RECORDS SUMMARY | 2023-06-18 20:41 | XMS_ITS | Continuity of Care Document ---
Author Name Unknown Organization Mal[facility] Address [address] [place] [address] Phone Care Team Providers Care Statuary Painter Name Role Phone Emmanuel Marya ROMAN Unavailable [...] by oral route 2 times every week 42594 UNITS - Active Procedures Procedure Date Est [...] Providers Copied on Encounter MONSERRAT Ly, [address], [place], [place], [address], [place] tel:[phone] [facility] No Information 3 [facility]. [address], [place], [address], [place]. tel:[phone] Referring Provider: Kaleb Lee, [address], [place], [address] . tel:[phone] Est Pt Eval 25 Min [facility], [address], [place], [place], [address], [place] tel:[phone] [facility] back pain (chief complaint) Body mass index (BMI) 26.0-26.9, adultRadiculopathy, lumbar region 3 Emmanuel Marya. [address], [place], [address], [place]. tel:[phone] Referring Provider: Kaleb Lee, [address], [place], [address] . tel:[phone] [facility], [address], [place], [place], [address], [place] tel:[phone] [facility] No Information 3 Jesus Zapata. [address], [place], [place], [address], [place]. tel:[phone] Referring Provider: Benny Lee, [address], [place], [address] . tel:[phone] [facility], [address], [place], [address], [place] tel:[phone] [facility] back pain (chief complaint) Radiculopathy, lumbar regionRadiculopathy , lumbar region 3 [facility]. [address], [place], [address], [place]. tel:[phone] Referring Provider: Benny Lee, [address], [place], [address] . tel:[phone] [facility], [facility], [address], [place], [place], [address], [place] tel:[phone] [facility] No Information 3 Jesus Zapata. [address], [place], [place], [address], [place]. tel:[phone] Referring Provider: Benny Lee, [address], [place], [address] . tel:[phone] New Pt Eval [address] [facility], [facility], [address], [place], [place], [address], [place] tel:[phone] [facility] back pain (chief complaint) Radiculopathy, lumbar regionVertebrogenic low back painBody mass index (BMI) 27.0-27.9, adult Fe- 3 Foster Florin. [address], [place], [address], [place]. tel:[phone] Referring Provider: Kaleb Lee, [address], [place], [address] . tel:[phone] Family History Family Member Type Diagnosis Age At Onset No Information Payers Payer name Insurance type Covered alliance party ID Anne brian(s) Jacki Medicare PPO 16 [id number] Social History Type Description Quantity Date Captured [...]
== END 2023-06-14 13:38 | disposition home or self-care (01) ==
LOC: NFLDREF 06-18 20:39
PROVIDERS: PCP Family Medicine; Referring Provider Family Medicine; Visit Provider Family Medicine
DX: K65.1 Peritoneal abscess (principal)
CPT/HCPCS: 86140

== ENCOUNTER 2023-06-18 11:06 | Emergency (ER) | payer OTHER, SELFPAY ==
[2023-06-18 11:27] VITALS: BP 145/75; PULSE 72; RESP 18; TEMP 36.5; O2SAT 98; BMI 25.1
--- OUTSIDE RECORDS SUMMARY | 2023-06-18 12:13 | XMS_ITS | Continuity of Care Document ---
Author Name Unknown Organization [facility] Address [address] [place] [address] Phone Care Team Providers Care Squash Centre Manager Name Role Phone Emmanuel Marya ROMAN Unavailable Unavailable Allergies, Adverse Reactions, Alerts Substance Reaction Status Criticality No Known Allergies Active No Inform ation Medications Medication Instructions Dosage Effective Dates (start - stop) Status Comments alprazolam 0.25 mg tablet take 1 tablet by oral route 3 times every day 0.25 MG - Active aspirin 325 mg tablet take 2 tablet by oral route 5 times every day 650 MG - Active latanoprost 0.005 % eye drops instill 1 drop by ophthalmic route every day into affected eye(s) in the evening 1.00 drop - Active lisinopril 20 mg tablet take 1 tablet by oral route 2 times every day 20 MG - Active multivitamin tablet take 1 tablet by oral route every day for 1 day 1 tablet - Active nitroglycerin 0.[address] 1 tablet by sublingual route every 5 minutes as needed for chest pain. Do not exceed 3 doses in 15 minutes. 0.4 MG - Active simvastatin 40 mg tablet take 1 tablet by oral route every day in the evening 40 MG - Active tramadol 50 mg tablet take 1 tablet by oral route every 12 hours as needed 50 MG - Active Vitamin C 500 mg tablet take 2 tablet by oral route every day 2 tablet - Active Vitamin D2 1,250 mcg (50,000 unit) capsule take 1 capsule by oral route 2 times every week 78275 UNITS - Active Procedures Procedure Date Est Pt Eval 25 Min Inject, Spine, Lumb/sacr, Epi/subarc w/ img Guid Inject, Spine, Lumb/sacr, Epi/subarc w/ img Guid Verified No Separate Anesthesia 023 New Pt Eval 60 Min Advance Directives Directive Yes / No Effective Date File Name No Information Encounters Encounter Description Practice Location Reason(s) For Visit Diagnoses Date Provider Providers Copied on Encounter MONSERRAT Ly, [address], [place], [place], [id number], [place] tel:[phone] [facility] No Information 3 [facility]. [address], [place], [address], [place]. tel:[phone] Referring Provider: Kaleb Lee, [address], [place], [address] . tel:[phone] Est Pt Eval 25 Min [facility], [address], [place], [place], [address], [place] tel:[phone] [facility] back pain (chief complaint) Body mass index (BMI) 26.0-26.9, adultRadiculopathy, lumbar region 3 Emmanuel Marya. [address], [place], [address], [place]. tel:[phone] Referring Provider: Kaleb Lee, [address], [place], [address] . tel:[phone] [facility], [address], [place], [place], [address], [place] tel:[phone] [facility] [place] No Information 3 Jesus Zapata. [address], [address], [place], [place], [address], [place]. tel:[phone] Referring Provider: Benny Lee, [address], [place], [address] . tel:[phone] [facility], [address], [place], [address], [place] tel:[phone] [facility] back pain (chief complaint) Radiculopathy, lumbar regionRadiculopathy , lumbar region 3 [facility]. [address], [place], [address], [place]. tel:[phone] Referring Provider: Benny Lee, [address], [place], [address] . tel:[phone] [facility], [facility], [address], [place], [place], [address], [place] tel:[phone] [facility] No Information 3 Jesus Zapata. [address], [address], [place], [place], [address], [place]. tel:[phone] Referring Provider: Benny Lee, [address], [place], [address] . tel:[phone] New Pt Eval 60 Min [facility], [facility], [address], [place], [place], [address], [place] tel:[phone] [facility] back pain (chief complaint) Radiculopathy, lumbar regionVertebrogenic low back painBody mass index (BMI) 27.0-27.9, adult Fe- 3 Foster Florin. [address], [place], [address], [place]. tel:[phone] Referring Provider: Kaleb Lee, [address], [place], [address] . tel:[phone] Family History Family Member Type Diagnosis Age At Onset No Information Payers Payer name Insurance type Covered alliance party ID Anne brian(s) Jacki Medicare PPO 16 [id number] Social History Type Description Quantity Date Captured Comments Alcohol Use Details Unknown Caffeine Use Details Unknown Tobacco Use Status Smoking Status No Information Sex Male Chief Complaint And Reason For Visit No Information Reason For Referral Reason For Referral No Information Plan Of Treatment Date Type Action Status Goal Tobacco cessation counseling completed Goal Lifestyle education regardin g diet completed Goal Lifestyle education regardin g diet completed Referral Referred To: Physical Therapy Ordered: Referrals: Physical Therapy. Evaluate and treat ordered History Of Present Illness Encounter Date Complaint History Of Prese nt Illness back pain Location of pain is lower back. Pain is radiated to the pelvis and left knee. back pain Location of pain is lower back. back pain Location of pain is lower back. Pain is radiated to the Right Hip and Right Knee. The patient describes the pain as sharp and Sharp in the morning. Symptoms are aggravated by bending, daily activities, lifting, standing, twisting and walking. Symptoms are relieved by exercise, pain meds/drugs and physical therapy. Functional Status Date Functional Assessmen t No Information Instructions Date Instruction Additional Infor waiion -Ordered Intracept p rocedure today, implant team will meet with you today to discuss the procedure-Per prior authorization for the intracept procedure, need to complete one session of physical therapy, ordered today and scheduling will reach out to create an appointment-Follow up with [facility] in one month or as needed, telehealth ok Related to Radiculopathy, lumbar region Lifestyle education regarding di et Related to Body mass index [BMI] 26.0-26.9, adult - Follow up in the c linic to discuss the results of the injection Related to Radiculopathy, lumbar region - Beginning tracking and authorization for intraceptLiterature provided today Related to Vertebrogenic low back pain - Schedule lumbar ep idural steroid injection as desiredOrdered today- Follow up in the clinic 2-3 weeks following the injection Related to Radiculopathy, lumbar region Lifestyle education regarding di et Related to Body mass index [BMI] 27.0-27.9, adult Assessments Type Assessment Date No Information Patient Care Teams Name Effective Dates (start - stop) Status Members No Information
--- OUTSIDE RECORDS SUMMARY | 2023-06-18 12:13 | XMS_ITS | Continuity of Care Document ---
Author Name Unknown Organization Mal[facility] Address [address] [place] [address] Phone Care Team Providers Care Graduation Coach Name Role Phone Emmanuel Marya ROMAN Unavailable [...] by oral route 2 times every week 23067 UNITS - Active Procedures Procedure Date Est [...] Providers Copied on Encounter MONSERRAT Ly, [address], [place], [place], [address], [place] tel:[phone] [facility] No Information 3 [facility]. [address], [place], [address], [place]. tel:[phone] Referring Provider: Kaleb Lee, [address], [place], [address] . tel:[phone] Est Pt Eval 25 Min Mal[facility], [address], [place], [place], [address], [place] tel:[phone] [facility] back pain (chief complaint) Body mass index (BMI) 26.0-26.9, adultRadiculopathy, lumbar region 3 Emmanuel Marya. [address], [place], [address], [place]. tel:[phone] Referring Provider: Kaleb Lee, [address], [place], [address] . tel:[phone] [facility], [address], [place], [place], [address], [place] tel:[phone] [facility] No Information 3 Jesus Zapata. [address], [place], [place], [address], [place]. tel:[phone] Referring Provider: Benny Lee, [address], [place], [address] . tel:[phone] [facility], [address], [place], [address], [place] tel:[phone] [facility] back pain (chief complaint) Radiculopathy, lumbar regionRadiculopathy , lumbar region 3 [facility]. [address], [place], [address], [place]. tel:[phone] Referring Provider: Benny Lee, [address], [place], [address] . tel:[phone] [facility], [facility], [address], [place], [place], [address], [place] tel:[phone] [facility] No Information 3 Jesus Zapata. [address], [place], [place], [address], [place]. tel:[phone] Referring Provider: Benny Lee, [address], [place], [address] . tel:[phone] New Pt Eval 60 Min [facility], [facility], [address], [place], [place], [address], [place] tel:[phone] [facility] back pain (chief complaint) Radiculopathy, lumbar regionVertebrogenic low back painBody mass index (BMI) 27.0-27.9, adult Fe- 3 Foster Florin. [address], [place], [address], [place]. tel:[phone] Referring Provider: Kaleb Lee, [address], [place], [address] . tel:[phone] Family History Family Member Type Diagnosis Age At Onset No Information Payers Payer name Insurance type Covered libertarian ID Anne brian(s) Jacki Medicare PPO 16 [id number] Social History Type Description Quantity Date Captured [...]
--- OUTSIDE RECORDS SUMMARY | 2023-06-18 12:13 | XMS_ITS | Continuity of Care Document ---
Author Name Unknown Organization [facility] Address [address] [place] [address] Phone Care Team Providers Care Fundraiser Name Role Phone Magalie Palumbo MD Unavailable Unavailable Allergies, Adverse Reactions, Alerts Substance Reaction Status Criticality No Known Allergies Active No Inform ation Medications Medication Instructions Dosage Effective Dates (start - stop) Status Comments SIMVASTATIN (unknown strength) Not Available - Active ASPIRIN (unknown strength) Not Available - Active LISINOPRIL (unknown strength) Not Available - Active Procedures Procedure Date Office/Outpatient Visit,Est, Mod 2022 Office/Outpatient Visit,New, Mod 2020 Advance Directives Directive Yes / No Effective Date File Name No Information Encounters Encounter Description Practice Location Reason(s) For Visit Diagnoses Date Provider Providers Copied on Encounter [facility], [address], [place], [address], [place] tel:[phone] [facility] No Information 3 Linwood Amisathya. [facility] [place], [address] [place] [address] [address], [place], [place], [address] , [place]. tel:[phone] Office/Outpat ient Visit,Est, Mod [facility], [address], [place], [address], [place] tel:[phone] [facility] - [facility] Spinal stenosis, lumbar region with neurogenic claudication 3 Mehbod Amir. [facility], [address] [place] [address] [address], [place], [address] , [place]. tel:[phone] Referring Provider: Juan Pablo Amaya, [facility] [address], [place], [address]. tel:[phone] Office/Outpat ient Visit,[facility], [facility], [address], [place], [address], [place] tel:[phone] [facility] Low back painSpinal stenosis, lumbar region with neurogenic claudication 1 Kenzie Leary. [facility], [address], [address], [facility], [address] , [place]. tel:[phone] Referring Provider: Juan Pablo Amaya, [facility] [address], [place], [address]. tel:[phone] Family History Family Member Type Diagnosis Age At Onset No Information Payers Payer name Insurance type Covered constitution party ID Authoriza tion(s) [employer] Medicare Gold Choice Ramesh [id number] Social History Type Description Quantity Date Captured Comments Sex Male Smoking Status No Information Chief Complaint And Reason For Visit No Information Reason For Referral Reason For Referral No Information Plan Of Treatment Date Type Action Status Appointment Theodore Wu BOOKED History Of Present Illness Encounter Date Complaint History Of Prese nt Illness No Information Functional Status Date Functional Assessmen t No Information Instructions Date Instruction Additional Infor mation No Information Assessments Type Assessment Date No Information Patient Care Teams Name Effective Dates (start - stop) Status Members No Information
--- OUTSIDE RECORDS SUMMARY | 2023-06-18 12:13 | XMS_ITS | Continuity of Care Document ---
Author Name Unknown Organization [facility] Address [address] [place] [address] Phone Care Team Providers Care Die Inspector Name Role Phone Linwood DAVID Amisathya Unavailable Unavailable Allergies, Adverse Reactions, Alerts Substance Reaction Status Criticality No Known Allergies Active No Inform ation Medications Medication Instructions Dosage Effective Dates (start - stop) Status Comments LISINOPRIL (unknown strength) Not Available - Active ASPIRIN (unknown strength) Not Available - Active SIMVASTATIN (unknown strength) Not Available - Active Procedures Procedure Date Office/Outpatient Visit,Est, Mod 2022 Office/Outpatient Visit,New, Mod 2020 Advance Directives Directive Yes / No Effective Date File Name No Information Encounters Encounter Description Practice Location Reason(s) For Visit Diagnoses Date Provider Providers Copied on Encounter [facility], [address], [place], [address], [place] tel:[phone] [facility] No Information 3 hbjames Amir. [facility] [place], [address], [place], [place], [address] , [place]. tel:[phone] Office/Outpat ient Visit,Est, Mod [facility], [address], [place], [address], [place] tel:[phone] [facility] - [facility] Spinal stenosis, lumbar region with neurogenic claudication 3 Mehbod Amir. [facility] [place], [address] [place] [address] [address], [place], [place], [address] , [place]. tel:[phone] Referring Provider: Juan Pablo Amaya, [facility] [address], [place], [address]. tel:[phone] Office/Outpat ient Visit,[facility], [facility], [address], [place], [address], [place] tel:[phone] [facility] Low back painSpinal stenosis, lumbar region with neurogenic claudication 1 Kenzie Leary. [facility], [address], [facility] [place], [address] , [place]. tel:[phone] Referring Provider: Juan Pablo Amaya, [facility] [address], [place], [address]. tel:[phone] Family History Family Member Type Diagnosis Age At Onset No Information Payers Payer name Insurance type Covered green party ID Authoriza tion(s) Hum[employer] Medicare Gold Choice Ramesh [id number] Social History Type Description Quantity Date [...]
== END 2023-06-18 12:23 | disposition left against medical advice (07) ==
PROVIDERS: Emergency Provider Emergency Medicine; PCP Family Medicine
DX: Z53.21 Procedure and treatment not carried out due to patient leaving prior to being seen by health care provider (principal)

== ENCOUNTER 2023-07-08 12:50 | Outpatient (CLI) | payer OTHER, SELFPAY ==
--- OUTSIDE RECORDS SUMMARY | 2023-07-08 12:53 | XMS_ITS | Continuity of Care Document ---
Author Name Unknown Organization [facility] Address [address] [place] [address] Phone Care Team Providers Care Welt Treater Name Role Phone Linwood DAVID Amisathya Unavailable [...] C, [address], [place], [id number], [place] tel:[phone] [facility] No Information 3 hbjames Amir. [facility] [place], [address], [place], [place], [id number] , [place]. tel:[phone] Office/Outpat ient Visit,Est, Mod [facility], [address], [place], [id number], [place] tel:[phone] [facility] Spinal stenosis, lumbar region with neurogenic claudication 3 Mehbod Amir. [facility] [place], [address] [place] [address] [address], [place], [id number] , [place]. tel:[phone] Referring Provider: Juan Pablo Amaya, [facility] [address], [place], [address]. tel:[phone] Office/Outpat ient Visit,[facility], [facility], [address], [place], [id number], [place] tel:[phone] [facility] Low back painSpinal stenosis, lumbar region with neurogenic claudication 1 Kenzie Leary. [facility], [address], [address], [facility] [place], [id number] , [place]. tel:[phone] Referring Provider: Juan Pablo Amaya, [facility] [address], [place], [address]. tel:[phone] Family History Family Member Type Diagnosis Age At Onset No Information Payers Payer name Insurance type Covered alliance party ID Authoriza tion(s) [employer] Medicare Gold Choice Ramesh CONTRERAS [id number] Social History Type Description Quantity Date Captured Comments Sex Male Smoking Status No Information Chief Complaint And Reason For Visit No Information Reason For Referral Reason For Referral No Information History Of Present Illness Encounter Date Complaint History Of Prese nt Illness No Information Functional Status Date Functional Assessmen t No Information Instructions Date Instruction Additional Infor mation No Information Assessments Type Assessment Date No Information Patient Care Teams Name Effective Dates (start - stop) Status Members No Information
--- NOTE | 2023-07-08 13:00 | CRLHL7_ITS ---
For Patients: As a result of the Century Cures Act, medical imaging exams and procedure reports are released immediately into your electronic medical record. You may view this report before your referring provider. If you have questions, please contact your health care provider. Indication: COLONIC DIVERTICULAR ABSCESS Technique: Pre and post-contrast CT abdomen and pelvis. CT Abdomen/Pelvis W/ 79CC [id number] Please note that all CT scans at this facility use dose modulation, iterative reconstruction, and/or weight-based dosing when appropriate to reduce radiation dose to as low as reasonably achievable. Comparison: 05/27/2023 Findings: Mild fibrotic change noted in the periphery of both lower lobes. No pleural effusion. No intrahepatic mass. No calcified gallstones. No biliary obstruction. The pancreas is normal. Normal spleen. Adrenal glands normal. Extrarenal pelvis is present bilaterally, left greater than right. Exophytic cyst upper pole right kidney. Atherosclerotic changes with ectasia of the aorta. Bladder normal. Undescended left testicle within the left inguinal canal. Persistent diverticular abscess in the posterior midline of the upper pelvis measuring approximately 3 cm. No disseminated free air. Multilevel degenerative disc disease. No vertebral body compression fracture. Noncontrast images demonstrate no evidence of renal stone. Impression: Persistent diverticular abscess measuring approximately 3 cm. Unchanged morphology of the left renal pelvis and left ureter. Please note that all CT scans at this facility use dose modulation, iterative reconstruction, and/or weight-based dosing when appropriate to reduce radiation dose to as low as reasonably achievable. Dictated by Raulito Carey MD @ 07/09/2023 9:01:22 AM (Electronically Signed)
[2023-07-08 13:37] LABS: Creatinine* 0.8 mg/dL (0.5-1.5); Estimated Glomerular Filt Rate 90 ml/min
== END 2023-07-08 12:51 | disposition home or self-care (01) ==
LOC: CT 12:52
PROVIDERS: PCP Family Medicine; Visit Provider Student in an Organized Health Care Education/Training Program
DX: K57.20 Diverticulitis of large intestine with perforation and abscess without bleeding (principal)
CPT/HCPCS: 36415; 74178; 82565; Q9967

== ENCOUNTER 2023-07-15 11:15 | Outpatient (CLI) | payer OTHER, SELFPAY ==
--- OUTSIDE RECORDS SUMMARY | 2023-07-17 05:44 | XMS_ITS | Continuity of Care Document ---
Author Name Unknown Organization [facility] Address [address] [place] [address] Phone Care Team Providers Care Heating Plant Superintendent Name Role Phone Magalie Palumbo MD Unavailable [...] C, [address], [place], [address], [place] tel:[phone] [facility] No Information 3 Linwood Amir. [facility], [address] [place] [address] [address], [place], [place], [address] , [place]. tel:[phone] Office/Outpat ient Visit,Est, Mod [facility], [address], [place], [address], [place] tel:[phone] [facility] Spinal stenosis, lumbar region with neurogenic claudication 3 Mehbod Amir. [facility], [address] [place] [address] [address], [place], [address] , [place]. tel:[phone] Referring Provider: Juan Pablo Amaya, [facility] [address], [place], [address]. tel:[phone] Office/Outpat ient Visit,[facility], [facility], [address], [place], [address], [place] tel:[phone] [facility] Low back painSpinal stenosis, lumbar region with neurogenic claudication 1 Kenzie Leary. [facility], [address], [facility] [place], [address] , [place]. tel:[phone] Referring Provider: Juan Pablo Amaya, [facility] [address], [place], [address]. tel:[phone] Family History Family Member Type Diagnosis Age At Onset No Information Payers Payer name Insurance type Covered green party ID Authoriza tion(s) Hum[employer] Medicare Gold Choice Ramesh CONTRERAS [id number] Social History Type Description Quantity Date [...]
--- OUTSIDE RECORDS SUMMARY | 2023-07-17 05:44 | XMS_ITS | Continuity of Care Document ---
Author Name Unknown Organization Malachi [facility] Address [address] [place] [address] Phone Care Team Providers Care Bear Keeper Name Role Phone Emmanuel Marya ROMAN Unavailable [...] by oral route 2 times every week [address] UNITS - Active Procedures Procedure Date Est [...] Providers Copied on Encounter MONSERRAT Ly, [address], [place], [place], [address], [place] tel:[phone] [facility] No Information 3 [facility]. [address], [place], [address], [place]. tel:[phone] Referring Provider: Kaleb Lee, [address], [place], [address] . tel:[phone] Est Pt Eval 25 Min Malachi [facility], [address], [place], [place], [address], [place] tel:[phone] [facility] back pain (chief complaint) Body mass index (BMI) 26.0-26.9, adultRadiculopathy, lumbar region 3 Emmanuel Marya. [address], [place], [address], [place]. tel:[phone] Referring Provider: Kaleb Lee, [address], [place], [address] . tel:[phone] Malachi [facility], [address], [place], [place], [address], [place] tel:[phone] [facility] No Information 3 Jesus Zapata. [address], [place], [place], [address], [place]. tel:[phone] Referring Provider: Benny Lee, [address], [place], [address] . tel:[phone] [facility], [address], [place], [address], [place] tel:[phone] [facility] back pain (chief complaint) Radiculopathy, lumbar regionRadiculopathy , lumbar region 3 [facility]. [address], [place], [address], [place]. tel:[phone] Referring Provider: Benny Lee, [address], [place], [address] . tel:[phone] [facility], [facility], [address], [place], [place], [address], [place] tel:[phone] [facility] No Information 3 Jesus Zapata. [address], [address], [place], [place], [address], [place]. tel:[phone] Referring Provider: Benny Lee, [address], [place], [address] . tel:[phone] New Pt Eval 60 Min [facility], [facility], [address], [place], [place], [address], [place] tel:[phone] [facility] back pain (chief complaint) Radiculopathy, lumbar regionVertebrogenic low back painBody mass index (BMI) 27.0-27.9, adult Fe- 3 Foster Florin. [address], [place], [address], [place]. tel:[phone] Referring Provider: Kaleb Lee, [address], [place], [address] . tel:[phone] Family History Family Member Type Diagnosis Age At Onset No Information Payers Payer name Insurance type Covered republican ID Anne brian(s) Jacki Medicare PPO 16 [id number] Social History Type Description Quantity Date Captured [...]
== END 2023-07-15 11:16 | disposition home or self-care (01) ==
LOC: AMB 07-17 05:42
PROVIDERS: PCP Family Medicine; Visit Provider Family Medicine
DX: R53.1 Weakness (principal); S99.912A Unspecified injury of left ankle, initial encounter; W01.0XXA Fall on same level from slipping, tripping and stumbling without subsequent striking against object, initial encounter; Y92.008 Other place in unspecified non-institutional (private) residence as the place of occurrence of the external cause
CPT/HCPCS: A0425; A0427

== ENCOUNTER 2023-07-15 11:52 | Emergency (ER) | payer OTHER, SELFPAY ==
[2023-07-15] VITALS (65 sets, daily range): BP systolic 89–162; BP diastolic 43–93; PULSE 96–116; RESP 18; TEMP 37.2–37.8; O2SAT 76–98; BMI 25.8
--- NOTE | 2023-07-15 12:14 | CRLHL7_ITS ---
For Patients: As a result of the Century Cures Act, medical imaging exams and procedure reports are released immediately into your electronic medical record. You may view this report before your referring provider. If you have questions, please contact your health care provider. INDICATION: Fall, hit head. COMPARISON: Radiographs 11/15/2020. TECHNIQUE: CT of the cervical spine without contrast. Multiplanar axial, coronal, and sagittal reformats were reconstructed. FINDINGS: No fracture or dislocation. Anterolisthesis C3 on C4, mild and unchanged. Straightening of the normal cervical lordosis. Multilevel advanced disc degenerative change. Multilevel facet degenerative change. Multilevel neural foraminal stenosis. No central canal stenosis. No focal bony lesions. Limited exam of the intracranial contents, soft tissues of the neck, and the lung apices is normal. IMPRESSION: No acute findings in the cervical spine. Degenerative change as above. Please note that all CT scans at this facility use dose modulation, iterative reconstruction, and/or weight-based dosing when appropriate to reduce radiation dose to as low as reasonably achievable. Dictated by Bozena Raymundo MD @ 07/15/2023 2:18:43 PM (Electronically Signed)
--- NOTE | 2023-07-15 12:14 | CRLHL7_ITS ---
For Patients: As a result of the Century Cures Act, medical imaging exams and procedure reports are released immediately into your electronic medical record. You may view this report before your referring provider. If you have questions, please contact your health care provider. INDICATION: Fall, hit head. COMPARISON: None. TECHNIQUE: CT of the brain/head without the use of IV contrast. Multiplanar axial, coronal, and sagittal reformats were reconstructed. FINDINGS: Generalized age-related cerebral parenchymal volume loss. Scattered small hypodensities consistent with chronic microvascular ischemic change. No acute or subacute territorial infarct. No intracranial hemorrhage. No mass, mass effect, or midline shift. T dilated ventricles are slightly out of proportion to the overall volume loss. Third and 4th ventricles are not significantly dilated. No fracture or focal osseous lesion. The mastoid and middle ears are clear. 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 The other paranasal sinuses are well aerated. Included orbit and globe are normal. IMPRESSION: 1. No acute intracranial hemorrhage or calvarial fracture. 2. Possible normal pressure hydrocephalus. Please note that all CT scans at this facility use dose modulation, iterative reconstruction, and/or weight-based dosing when appropriate to reduce radiation dose to as low as reasonably achievable. Dictated by Bozena Raymundo MD @ 07/15/2023 2:15:45 PM (Electronically Signed)
--- NOTE | 2023-07-15 12:19 | ED_ITS ---
HPI - General Adult General Date Seen: 07/15/23 Chief complaint: Fall/Minor Trauma Stated complaint: Fall Time Seen by Provider: 07/15/23 11:52 Source: patient Mode of arrival: EMS Limitations: no limitations History of Present Illness HPI narrative: Patient is a is a 78-year-old male history of coronary artery disease with stents, hypertension, hyperlipidemia, anxiety, abdominal abscess with surgery planned in July presenting to emergency department for a fall. Patient states today when he was out in his shop he felt like his legs became very weak causing him to fall. He states he has been him being issues with falls over the past here but is usually due to his right leg pain with his bad knee and hip. He states this felt different than just like the legs became weak suddenly. He is unable to get himself back up on his own in EMS was called. The time he arrived to the emergency department he felt like his strength was almost back to normal and was able to ambulate on his own. He states he caught himself with his arms but still hit his head against the floor. Denies any blood thinners. Denies lightheadedness, dizziness, fevers, chills, headache, vision changes, n umbness. He of note he says he has been having soft stools today he has been dealing with this for several weeks now. He has he has abscesses in his abdomen and is having surgery next month. He was initially on amoxicillin but was having soft stools a it sounds like he was switched to Cipro last week. He was having normal bowel movements again until today. He still says it was not watery but more ?mushy? just like his previous episodes. Is not having any chest pain, shortness of breath, abdominal pain. Related Data Home Medications Medication Instructions Recorded Confirmed ascorbic acid (vitamin C) 500 mg 1 cap PO DAILY 08/05/22 06/08/23 capsule aspirin 325 mg tablet 325 mg PO QDAY 08/05/22 06/08/23 ergocalciferol (vitamin D2) 10 mcg 400 unit PO Q OTHER DAY 08/05/22 06/08/23 (400 unit) tablet latanoprost 0.005 % eye drops 1 drp ophthalmic (eye) QDAY 08/05/22 06/08/23 multivitamin (Multiple Vitamins 1 tab PO QDAY 08/05/22 06/08/23 tablet) nitroglycerin 0.4 mg sublingual 0.4 mg sublingual Q5-15M PRN 08/05/22 06/08/23 tablet nicotine 11 mg/24 hr daily mg transdermal Q24H 04/09/23 06/08/23 transdermal patch Previous Rx's Medication Instructions Recorded simvastatin 20 mg tablet 20 mg PO QPM #180 tabs 02/01/23 lisinopril 20 mg tablet 20 mg PO DAILY #90 tabs 04/27/23 alprazolam 0.5 mg tablet 0.5 mg PO BID PRN anxiety #30 tabs 06/29/23 ciprofloxacin HCl 500 mg tablet 500 mg PO BID #20 tabs 06/29/23 metronidazole 500 mg tablet 500 mg PO BID #20 tabs 06/29/23 Allergies Allergy/AdvReac Type Severity Reaction Status Date / Time No Known Allergies Allergy Unknown Unknown Verified 07/15/23 18:18 Review of Systems Status of ROS: Reports: 10 or more systems reviewed and unremarkable except as noted in History and below PFSH PFS Medical History History of tinnitus (09/18/09) ?Z86.69 - Personal history of other diseases of the nervous system and sense organs (ICD-10) Surgical History S/P anal fissurectomy ?Z98.890 - Other specified postprocedural states (ICD-10) ?Z87.19 - Personal history of other diseases of the digestive system (ICD-10) Status post coronary artery stent placement ?Z95.5 - Presence of coronary angioplasty implant and graft (ICD-10) Status post cataract extraction ?Z98.49 - Cataract extraction status, unspecified eye (ICD-10) History of tonsillectomy and adenoidectomy (03/07/13) ?Z90.89 - Acquired absence of other organs (ICD-10) History of rhinoplasty (03/07/13) ?Z98.890 - Other specified postprocedural states (ICD-10) Social History Smoking Status: Current every day smoker What tobacco products do you use: cigarettes Smoking packs per day: 2 Smoking cigarettes per day: 40.0 Years smoked: 65 Smoking pack-years: 130.00 Do you use any of these nicotine containing products: None Second hand tobacco smoke exposure: No How often do you have a drink containing alcohol: never AUDIT-C Alcohol total score: 0 Non-prescribed substance use: denies use service: Yes Exam Narrative: Exam Narrative: Const: Well-nourished, Well-developed, in no distress Eyes: PERRL, no conjunctival injection, and symmetrical lids HENT: Atraumatic external nose and ears. Moist mucous membranes. Neck: Symmetric, trachea midline, No thyromegaly. CVS: RRR, No murmurs or gallops. Peripheral pulses 2+ and equal in all e xtremities RESP: Unlabored respiratory effort. Clear to auscultation bilaterally. GI: Nontender/Nondistended, No rebound or guarding. MSK:Extremities w/o deformity, Normal Active ROM Skin: Warm, Dry. No rashes or lesions. Neuro: Normal Muscle tone, No focal neurological deficits. Psych: Awake, Alert, & Oriented x3. Appropriate mood and affect. Const: Vital Signs, click to edit/add: Vital Signs - 24 hr 07/15/23 12:01 07/15/23 12:01 07/15/23 12:02 Temperature 98.9 F Pulse Rate 108 H 109 H Pulse Rate [Right Pulse Oximeter] 109 H Respiratory Rate 18 Blood Pressure 122/61 132/62 Blood Pressure [Ri ght Upper Arm] 122/61 Pulse Oximetry 96 96 94 Oxygen Delivery Me thod Room Air 07/15/23 12:03 07/15/23 12:10 07/15/23 12:20 Temperature Pulse Rate 108 H 110 H 109 H Pulse Rate [Right Pulse Oximeter] Respiratory Rate Blood Pressure Blood Pressure [Ri ght Upper Arm] Pulse Oximetry 96 96 94 Oxygen Delivery Me thod 07/15/23 12:57 07/15/23 13:00 07/15/23 13:02 Temperature Pulse Rate 115 H 111 H 107 H Pulse Rate [Right Pulse Oximeter] Respiratory Rate Blood Pressure 137/93 H Blood Pressure [Ri ght Upper Arm] Pulse Oximetry 82 L 98 96 Oxygen Delivery Me thod 07/15/23 13:07 07/15/23 13:32 07/15/23 18:16 Temperature 99.6 F Pulse Rate 116 H Pulse Rate [Right Pulse Oximeter] 106 H Respiratory Rate Blood Pressure 162/75 H 150/70 H Blood Pressure [Ri ght Upper Arm] 137/93 H Pulse Oximetry 78 L Oxygen Delivery Me thod 07/15/23 18:17 07/15/23 18:20 07/15/23 18:22 Temperature Pulse Rate 114 H 114 H 112 H Pulse Rate [Right Pulse Oximeter] Respiratory Rate Blood Pressure 147/67 H Blood Pressure [Ri ght Upper Arm] Pulse Oximetry 76 L 86 L 94 Oxygen Delivery Me thod 07/15/23 18:30 07/15/23 18:32 07/15/23 18:40 Temperature Pulse Rate 111 H 113 H 113 H Pulse Rate [Right Pulse Oximeter] Respiratory Rate Blood Pressure 145/68 H Blood Pressure [Ri ght Upper Arm] Pulse Oximetry 94 95 94 Oxygen Delivery Me thod 07/15/23 18:42 07/15/23 18:43 07/15/23 18:50 Temperature Pulse Rate 113 H 115 H 111 H Pulse Rate [Right Pulse Oximeter] Respiratory Rate Blood Pressure 125/61 Blood Pressure [Ri ght Upper Arm] Pulse Oximetry 94 94 94 Oxygen Delivery Me thod 07/15/23 18:51 07/15/23 18:52 07/15/23 19:00 Temperature Pulse Rate 113 H 113 H 109 H Pulse Rate [Right Pulse Oximeter] Respiratory Rate Blood Pressure 125/60 Blood Pressure [Ri ght Upper Arm] Pulse Oximetry 94 92 93 Oxygen Delivery Me thod 07/15/23 19:02 07/15/23 19:03 07/15/23 19:10 Temperature Pulse Rate 107 H 107 H 110 H Pulse Rate [Right Pulse Oximeter] Respiratory Rate Blood Pressure 113/49 L Blood Pressure [Ri ght Upper Arm] Pulse Oximetry 93 93 89 Oxygen Delivery Me thod 07/15/23 19:12 07/15/23 19:17 07/15/23 19:20 Temperature Pulse Rate 109 H 108 H 105 H Pulse Rate [Right Pulse Oximeter] Respiratory Rate Blood Pressure 100/48 L 103/49 L Blood Pressure [Ri ght Upper Arm] Pulse Oximetry 83 L 93 95 Oxygen Delivery Me thod 07/15/23 19:22 07/15/23 19:23 07/15/23 19:30 Temperature Pulse Rate 104 H 106 H 101 H Pulse Rate [Right Pulse Oximeter] Respiratory Rate Blood Pressure 104/59 L Blood Pressure [Ri ght Upper Arm] Pulse Oximetry 95 95 95 Oxygen Delivery Me thod 07/15/23 19:32 07/15/23 19:40 07/15/23 19:42 Temperature Pulse Rate 100 97 97 Pulse Rate [Right Pulse Oximeter] Respiratory Rate Blood Pressure 102/45 L 98/43 L Blood Pressure [Ri ght Upper Arm] Pulse Oximetry 96 96 96 Oxygen Delivery Me thod 07/15/23 19:50 07/15/23 19:52 07/15/23 20:51 Temperature 100.0 F H Pulse Rate 101 H 101 H Pulse Rate [Right Pulse Oximeter] Respiratory Rate Blood Pressure 99/58 L Blood Pressure [Ri ght Upper Arm] Pulse Oximetry 97 95 Oxygen Delivery Me thod Course Vital Signs Vital signs: Initial Vital Signs Temperature 98.9 F 07/15/23 12:01 Temperature Source Temporal Artery Scan 07/15/23 12:01 Pulse Rate 108 H 07/15/23 12:01 Pulse Rhythm Regular 07/15/23 12:01 Pulse Strength 3+ Normal 07/15/23 12:01 Respiratory Rate 18 07/15/23 12:01 Blood Pressure 122/61 07/15/23 12:01 Blood Pressure Mean 81 07/15/23 12:01 Blood Pressure Position Sitting 07/15/23 12:01 Pulse Oximetry 96 07/15/23 12:01 Oxygen Delivery Method Room Air 07/15/23 12:01 Vital Signs Temperature 98.9 F 07/15/23 12:01 Pulse Rate 108 H 07/15/23 12:01 Respiratory Rate 18 07/15/23 12:01 Blood Pressure 122/61 07/15/23 12:01 Pulse Oximetry 96 07/15/23 12:01 Oxygen Delivery Method Room Air 07/15/23 12:01 Temperature 100.0 F H 07/15/23 20:51 Pulse Rate 101 H 07/15/23 19:52 Respiratory Rate 18 07/15/23 12:01 Blood Pressure 99/58 L 07/15/23 19:52 Pulse Oximetry 95 07/15/23 19:52 Oxygen Delivery Method Room Air 07/15/23 12:01 Medications Administered Medications: Generic Name Dose Route Start Last Admin Trade Name Freq PRN Reason Stop Dose Admin Piperacillin Sod/Tazobactam 100 mls @ 200 mls/hr 07/15/23 14:00 07/15/23 15:11 Sod 3.375 gm/ Sodium Chloride IVPB Infused Q6H TALAT Infusion Discontinued Medications Generic Name Dose Route Start Last Admin Trade Name Jolanta PRN Reason Stop Dose Admin Acetaminophen 650 mg 07/15/23 17:30 07/15/23 20:51 Acetaminophen 325 Mg Tablet PO 07/15/23 17:31 650 mg ONCE ONE Administration Lactated Ringer's 1,000 mls @ 1,000 mls/hr 07/15/23 12:14 07/15/23 16:15 Lactated Ringers 1000 Ml IV 07/15/23 13:13 Infused .Q1H ONE Infusion Sodium Chloride 1,000 mls @ 1,000 mls/hr 07/15/23 15:15 07/15/23 16:15 0.9 % Sodium Chloride 1000 Ml IV 07/15/23 16:14 Infused .Q1H TALAT Infusion Sodium Chloride 250 mls @ 1,000 mls/hr 07/15/23 15:15 07/15/23 16:15 0.9 % Sodium Chloride 250 Ml IV 07/15/23 15:29 Infused .Q15M ONE Infusion Ondansetron HCl 4 mg 07/15/23 18:12 07/15/23 18:15 Ondansetron 2 Mg/Ml Inj IVP 07/15/23 18:13 4 mg ONCE ONE Administration Vancomycin HCl 125 mg 07/15/23 19:52 07/15/23 20:52 Vancomycin 125 Mg Capsule PO 07/15/23 19:53 125 mg ONCE ONE Administration Medical Decision Making [facility] Narrative Medical decision making narrative: Patient is a 78-year-old male presenting to the ED after a fall. He says the fall was due to lower extremity weakness thigh feels like it is resolving. He has been having soft stool and has been on chronic antibiotics now with his abd ominal abscesses. Right now he is tachycardic and dehydration is on the differential. I considered C diff but the stool description does not sound like C diff and he has been having these issues in the past so do not believe testing for C diff is necessary at this point as there is a relatively high false- positive rate. I will do a CT scan of his head and neck. He has no other injuries and further imaging is not necessary. With his tachycardia I will preemptively do a septic workup. This included CBC, CMP, lactate, troponin, EKG. Given 1 L of lactated Ringer's. CT scans of his head and cervical spine showed no concerning findings. His lab work returned with a white count of 24. He meets all SIRS criteria and has a lactic 2.2. Due to his known abscess there is concerned this could be the cause of his symptoms. Zosyn was started. I did speak to his colorectal surgeon and she is agreeable with this. While patient was in the emergency department his mental status seemed to worsen and we at have a delayed CT scan due to the scanner being down. While this was pending we did chest x-ray which showed possible mild pulmonary edema versus viral atypical pneumonia. He is not have any respiratory symptoms at this time and pneumonia seems unlikely. While he was getting his CT scan he had emesis and diarrhea. C diff was ordered. There is concerned he aspirated as he is now requiring oxygen and a repeat chest x-ray was ordered. Another L of fluid was also given because his blood pressure started to go down. He has not meet criteria for septic shock yet but we are watching him closely. CT scan returned showing hastings colitis and a smaller abscess. Is now 2 x 2.2 cm versus previously being 3. There is also the possibility of the start of a small-bowel obstruction. I spoke to [facility] again and at this time they state they do not believe the abscess is causing this but with the diarrhea they are concerned for C diff. Due to his worsening medical state they do recommend transfer at this time. Patient will be transferred to [facility]. Family is agreeable with this plan. Lab Data Labs: Lab Results 07/15/23 07/15/23 07/15/23 Range/Units 12:30 12:43 12:49 WBC 24.27 H (4.50-11.00) K/uL RBC 4.25 L (4.30-5.90) m/uL Hgb 13.1 L (13.5-17.5) gm/dL Hct 39.6 (37.0-53.0) % MCV 93 (80-100) fL MCH 31 (26-34) pg MCHC 33 (32-36) gm/dL RDW Coeff of Jose 14.2 (11.5-15.5) % Plt Count 326 (140-440) K/uL Neut % (Auto) 91.9 H (42.0-72.0) % Lymph % (Auto) 3.7 L (20-44) % [place] % (Auto) 3.8 (0.0-11.0) % Eos % (Auto) 0.3 (0.0-7.0) % Baso % (Auto) 0.1 (0.0-3.0) % Neut # (Auto) 22.30 H (1.7-7.0) K/uL Lymph # (Auto) 0.90 (0.90-2.90) K/uL [place] # (Auto) 0.90 (0.00-0.90) K/UL Eos # (Auto) 0.10 (0.00-0.50) K/uL Baso # (Auto) 0.00 (0.00-0.30) K/uL Abs Immat Gran (auto) 0.00 (0.00-0.30) K/uL Imm/Tot Granulo (auto) 0.2 % Diff Slide Review Acceptable Review (Acceptable) Sodium 136 (135-149) mmol/L Potassium 4.3 (3.6-5.1) mmol/L Chloride 102 (96-114) mmol/L Carbon Dioxide 26 (20-32) mmol/L Anion Gap 8 (7-15) mEq/L BUN 21 (7-30) mg/dL Creatinine 0.7 (0.5-1.5) mg/dL Estimated Creat Clear 56.00 Estimated GFR 94 ml/min Glucose 147 H (60-115) mg/dL Lactate 2.2 H (0.5-1.9) mmol/L Calcium 9.3 (8.4-10.6) mg/dL Total Bilirubin 0.4 (0.1-1.5) mg/dL AST 30 (12-35) U/L ALT 19 (4-50) U/L Alkaline Phosphatase 94 (40-150) U/L Troponin I < 0.01 L (0.01-0.04) ng/mL Total Protein 7.7 (6.0-8.3) g/dL Albumin 4.1 (3.3-5.0) g/dL Lipase 103 (23-300) U/L Urine Color Yellow (Yellow) Urine Appearance Clear (Clear) Urine pH 6.0 (5.0-8.5) Ur Specific [place] 1.020 (1.000-1.030) Urine Protein Negative (Negative) Urine Glucose (UA) Negative (Negative) Urine Ketones Negative (Negative) Urine Blood Negative (Negative) Urine Nitrite Negative (Negative) Urine Bilirubin Negative (Negative) Urine Urobilinogen 0.2 (0.2-1.0) Ur Leukocyte Esterase Negative (Negative) Urine RBC 0-2 (0-2) Urine WBC 0-2 (0-5) Ur Squamous Epith Cells Few (None-Few) Urine Bacteria None (None) Urine Mucus Moderate A (None) Stl C. diff Tox B Gene (Negative) Stl C. diff 027-NAP1-BI (Negative) SARS-CoV-2 (PCR) Negative SARS-CoV-2 (Negative) Influenza Type A (PCR) Negative PCR FLU A (Negative) Influenza Type B (PCR) Negative PCR FLU B (Negative) 07/15/23 Range/Units 18:16 WBC (4.50-11.00) K/uL RBC (4.30-5.90) m/uL Hgb (13.5-17.5) gm/dL Hct (37.0-53.0) % MCV (80-100) fL MCH (26-34) pg MCHC (32-36) gm/dL RDW Coeff of Jose (11.5-15.5) % Plt Count (140-440) K/uL Neut % (Auto) (42.0-72.0) % Lymph % (Auto) (20-44) % [place] % (Auto) (0.0-11.0) % Eos % (Auto) (0.0-7.0) % Baso % (Auto) (0.0-3.0) % Neut # (Auto) (1.7-7.0) K/uL Lymph # (Auto) (0.90-2.90) K/uL [place] # (Auto) (0.00-0.90) K/UL Eos # (Auto) (0.00-0.50) K/uL Baso # (Auto) (0.00-0.30) K/uL Abs Immat Gran (auto) (0.00-0.30) K/uL Imm/Tot Granulo (auto) % Diff Slide Review (Acceptable) Sodium (135-149) mmol/L Potassium (3.6-5.1) mmol/L Chloride (96-114) mmol/L Carbon Dioxide (20-32) mmol/L Anion Gap (7-15) mEq/L BUN (7-30) mg/dL Creatinine (0.5-1.5) mg/dL Estimated Creat Clear Estimated GFR ml/min Glucose (60-115) mg/dL Lactate (0.5-1.9) mmol/L Calcium (8.4-10.6) mg/dL Total Bilirubin (0.1-1.5) mg/dL AST (12-35) U/L ALT (4-50) U/L Alkaline Phosphatase (40-150) U/L Troponin I (0.01-0.04) ng/mL Total Protein (6.0-8.3) g/dL Albumin (3.3-5.0) g/dL Lipase (23-300) U/L Urine Color (Yellow) Urine Appearance (Clear) Urine pH (5.0-8.5) Ur Specific [place] (1.000-1.030) Urine Protein (Negative) Urine Glucose (UA) (Negative) Urine Ketones (Negative) Urine Blood (Negative) Urine Nitrite (Negative) Urine Bilirubin (Negative) Urine Urobilinogen (0.2-1.0) Ur Leukocyte Esterase (Negative) Urine RBC (0-2) Urine WBC (0-5) Ur Squamous Epith Cells (None-Few) Urine Bacteria (None) Urine Mucus (None) Stl C. diff Tox B Gene POSITIVE A* (Negative) Stl C. diff 027-NAP1-BI PRESUMPTIVE NEGATIVE (Negative) SARS-CoV-2 (PCR) (Negative) Influenza Type A (PCR) (Negative) Influenza Type B (PCR) (Negative) Imaging Data CT scan head: Radiologist's impression: 1. No acute intracranial hemorrhage or calvarial fracture. 2. Possible normal pressure hydrocephalus. Please note that all CT scans at this facility use dose modulation, iterative reconstruction, and/or weight-based dosing when appropriate to reduce radiation dose to as low as reasonably achievable. Dictated by Bozena Raymundo MD @ 07/15/2023 2:15:[address] scan cervical spine: Radiologist's impression: No acute findings in the cervical spine. Degenerative change as above. Please note that all CT scans at this facility use dose modulation, iterative reconstruction, and/or weight-based dosing when appropriate to reduce radiation dose to as low as reasonably achievable. Dictated by Bozena Raymundo MD @ 07/15/2023 2:18:43 PM Chest x-ray: Radiologist's impression: 1. Mild interstitial opacities bilaterally, may reflect component of mild pulmonary edema versus atypical viral process. 2. Mild cardiomegaly. Dictated by Campbell Azevedo MD @ 07/15/2023 5:37:48 PM Chest Xray post emesis: Radiologist's impression: No evidence of an acute pulmonary process. Dictated by Theodore Gallegos MD @ 07/15/2023 8:11:[address] scan abdomen and pelvis: Radiologist's impression: 1. Interval decrease in size of the peridiverticular abscess, now measuring 2.2 x 2.0 cm. 2. Pancolitis. 3. Prominent loop of nondilated fluid-filled small bowel in the left lower quadrant of the abdomen, with a transition point in the left hemipelvis. This may reflect isolated ileus versus early small bowel obstruction. 4. Stable mild left hydronephrosis and proximal left hydroureter, without obstructing calculus identified. This raises concern for possible ureteral stricture. Please note that all CT scans at this facility use dose modulation, iterative reconstruction, and/or weight-based dosing when appropriate to reduce radiation dose to as low as reasonably achievable. Dictated by Campbell Azevedo MD @ 07/15/2023 7:33:46 PM ECG Data Attestation: I personally reviewed and interpreted this ECG as follows: Prior ECG tracings: available for review Interpretation: Sinus tachycardia with a rate of 106 beats per minute, normal intervals, left axis deviation normal left fascicular walk smaller or waves in the lateral leads compared to previous EKG on file. No ST or T-wave abnormalities Critical Care Time Critical Care Time Critical Care Time: Yes Attestation: The patient required my highest level preparedness to intervene emergently and I personally spent this critical care time directly and personally managing the patient. This critical care time included: Obtaining a history; Examining the patient; Pulse oximetry; Ordering and reviewing of studies; Arranging urgent treatment with development of a management plan; Evaluation of patients response to treatment; Frequent reassessment discussions with other providers. This critical care time was performed to assess and manage the high probability of imminent life-threatening deterioration that could result in multiorgan failure. It was exclusive of separate billable procedures and treating other patients and teaching time. Total Critical Care Time in Minutes: 70 Discharge Plan Discharge Clinical Impression: C. difficile colitis Sepsis Qualifiers: Sepsis type: sepsis due to unspecified organism Sepsis acute organ dysfunction status: unspecified Qualified Code(s): A41.9 - Sepsis, unspecified organism Patient Disposition: Xfer Other Discharge Location: [facility] Condition: Guarded Prescriptions: No Action nicotine 11 mg/24 hr patch 24 hour transdermal Q24H aspirin 325 mg tablet 325 mg PO QDAY multivitamin [Multiple Vitamins] Tablet 1 tab PO QDAY nitroglycerin 0.4 mg tablet, sublingual 0.4 mg sublingual Q5-15M PRN Rx Instructions: PRN CHEST PAIN/ MAX 3 DOSES latanoprost 0.005 % drops 1 drp ophthalmic (eye) QDAY ergocalciferol (vitamin D2) 10 mcg (400 unit) tablet 400 unit PO Q OTHER DAY ascorbic acid (vitamin C) 500 mg capsule 1 cap PO DAILY simvastatin 20 mg tablet 20 mg PO QPM Qty: 180 1RF lisinopril 20 mg tablet 20 mg PO DAILY Qty: 90 3RF metronidazole 500 mg tablet 500 mg PO BID Qty: 20 0RF ciprofloxacin HCl 500 mg tablet 500 mg PO BID Qty: 20 0RF alprazolam 0.5 mg tablet 0.5 mg PO BID PRN (Reason: anxiety) Qty: 30 1RF Follow Up/Referrals: Marco A Buckley MD [Primary Care Provider] - Stand Alone Forms: [facility] Info Instructions
--- OUTSIDE RECORDS SUMMARY | 2023-07-15 12:25 | XMS_ITS | Continuity of Care Document ---
Author Name Unknown Organization [facility] Address [address] [place] [address] Phone Care Team Providers Care Assistant Produce Manager Name Role Phone Linwood DAVID Amisathya Unavailable [...] C, [address], [place], [id number], [place] tel:[phone] [facility] No Information 3 hbjames Amir. [facility], [address], [place], [place], [id number] , [place]. tel:[phone] Office/Outpat ient Visit,Est, Mod [facility], [address], [place], [id number], [place] tel:[phone] [facility] Spinal stenosis, lumbar region with neurogenic claudication 3 Mehbod Amir. [facility], [address] [place] [address] [address], [place], [place], [id number] , [place]. tel:[phone] Referring Provider: Juan Pablo Amaya, [facility] [address], [place], [address]. tel:[phone] Office/Outpat ient Visit,[facility], [facility], [address], [place], [id number], [place] tel:[phone] [facility] Low back painSpinal stenosis, lumbar region with neurogenic claudication 1 Kenzie Leary. [facility], [address], [address], [facility] [place], [place], [id number] , [place]. tel:[phone] Referring Provider: Juan Pablo Amaya, [facility] [address], [place], [address]. tel:[phone] Family History Family Member Type Diagnosis Age At Onset No Information Payers Payer name Insurance type Covered green party ID Authoriza tion(s) [employer] Gold Choice Ramesh CONTRERAS [id number] Social History Type Description Quantity Date [...]
--- OUTSIDE RECORDS SUMMARY | 2023-07-15 12:25 | XMS_ITS | Continuity of Care Document ---
Author Name Unknown Organization Malachi [facility] Address [address] [place] [address] Phone Care Team Providers Care Referral Nurse Name Role Phone Emmanuel Marya ROMAN Unavailable [...] by oral route 2 times every week [address] UNITS - Active Procedures Procedure Date Est [...] Providers Copied on Encounter MONSERRAT Ly, [address], [place], [place], [address], [place] tel:[phone] [facility] No Information 3 [facility]. [address], [place], [address], [place]. tel:[phone] Referring Provider: Kaleb Lee, [address], [place], [address] . tel:[phone] Est Pt Eval 25 Min Malachi [facility], [address], [place], [place], [address], [place] tel:[phone] [facility] back pain (chief complaint) Body mass index (BMI) 26.0-26.9, adultRadiculopathy, lumbar region 3 Emmanuel Marya. [address], [place], [address], [place]. tel:[phone] Referring Provider: Kaleb Lee, [address], [place], [address] . tel:[phone] [facility], [address], [place], [place], [address], [place] tel:[phone] [facility] No Information 3 Jesus Zapata. [address], [place], [place], [address], [place]. tel:[phone] Referring Provider: Benny Lee, [address], [place], [address] . tel:[phone] [facility], [address], [place], [address], [place] tel:[phone] [facility] back pain (chief complaint) Radiculopathy, lumbar regionRadiculopathy , lumbar region 3 [facility]. [address], [place], [address], [place]. tel:[phone] Referring Provider: Benny Lee, [address], [place], [address] . tel:[phone] [facility], [facility], [address], [place], [place], [address], [place] tel:[phone] [facility] No Information 3 Jesus Zapata. [address], [address], [place], [place], [address], [place]. tel:[phone] Referring Provider: Benny Lee, [address], [place], [address] . tel:[phone] New Pt Eval 60 Min [facility], [facility], [address], [place], [place], [address], [place] tel:[phone] [facility] back pain (chief complaint) Radiculopathy, lumbar regionVertebrogenic low back painBody mass index (BMI) 27.0-27.9, adult Fe- 3 Foster Florin. [address], [place], [address], [place]. tel:[phone] Referring Provider: Kaleb Lee, [address], [place], [address] . tel:[phone] Family History Family Member Type Diagnosis Age At Onset No Information Payers Payer name Insurance type Covered green party ID Anne brian(s) Jacki Medicare PPO 16 [id number] Social History Type Description Quantity Date Captured [...]
--- OUTSIDE RECORDS SUMMARY | 2023-07-15 12:25 | XMS_ITS | Continuity of Care Document ---
Author Name Unknown Organization [facility] Address [address] [place] [address] Phone Care Team Providers Care Appraiser Art Name Role Phone Linwood DAVID Amisathya Unavailable [...] C, [address], [place], [address], [place] tel:[phone] [facility] No Information 3 hbjames Amir. [facility], [address], [place], [place], [address] , [place]. tel:[phone] Office/Outpat ient Visit,Est, Mod [facility], [address], [place], [address], [place] tel:[phone] [facility] Spinal stenosis, lumbar region with neurogenic claudication 3 Mehbod Amir. [facility], [address] [place] [address] [address], [place], [address] , [place]. tel:[phone] Referring Provider: Juan Pablo Amaya, [facility] [address], [place], [address]. tel:[phone] Office/Outpat ient Visit,[facility], [facility], [address], [place], [address], [place] tel:[phone] [facility] Low back painSpinal stenosis, lumbar region with neurogenic claudication 1 Kenzie Leary. [facility], [address], [address], [facility] [place], [address] , [place]. tel:[phone] Referring Provider: Juan Pablo Amaya, [facility] [address], [place], [address]. tel:[phone] Family History Family Member Type Diagnosis Age At Onset No Information Payers Payer name Insurance type Covered libertarian ID Authoriza tion(s) Hum[employer] Medicare Gold Choice Ramesh CONTRERAS [id number] Social History Type Description Quantity Date [...]
--- OUTSIDE RECORDS SUMMARY | 2023-07-15 12:25 | XMS_ITS | Continuity of Care Document ---
Author Name Unknown Organization Malachi [facility] Address [address] [facility] [place] [address] Phone Care Team Providers Care Single Needle Tufting Machine Operator Name Role Phone Emmanuel Marya ROMAN Unavailable [...] by oral route 2 times every week [address] UNITS - Active Procedures Procedure Date Est [...] Providers Copied on Encounter MONSERRAT Ly, [address], [place], [place], [address], [place] tel:[phone] [facility] No Information 3 [facility]. [address], [place], [address], [place]. tel:[phone] Referring Provider: Kaleb Lee, [address], [place], [address] . tel:[phone] Est Pt Eval 25 Min Malachi [facility], [address], [place], [place], [address], [place] tel:[phone] [facility] back pain (chief complaint) Body mass index (BMI) 26.0-26.9, adultRadiculopathy, lumbar region 3 Emmanuel Marya. [address], [place], [address], [place]. tel:[phone] Referring Provider: Kaleb Lee, [address], [place], [address] . tel:[phone] Malachi [facility], [address], [place], [place], [address], [place] tel:[phone] [facility] No Information 3 Jesus Zapata. [address], [address], [place], [place], [address], [place]. tel:[phone] Referring Provider: Benny Lee, [address], [place], [address] . tel:[phone] [facility], [address], [place], [address], [place] tel:[phone] [facility] back pain (chief complaint) Radiculopathy, lumbar regionRadiculopathy , lumbar region 3 [facility]. [address], [place], [address], [place]. tel:[phone] Referring Provider: Benny Lee, [address], [place], [address] . tel:[phone] [facility], [facility], [address], [place], [place], [address], [place] tel:[phone] [facility] No Information 3 Jesus Zapata. [address], [address], [place], [place], [address], [place]. tel:[phone] Referring Provider: Benny Lee, [address], [place], [address] . tel:[phone] New Pt Eval 60 Min [facility], [facility], [address], [place], [place], [address], [place] tel:[phone] [facility] back pain (chief complaint) Radiculopathy, lumbar regionVertebrogenic low back painBody mass index (BMI) 27.0-27.9, adult Fe- 3 Foster Florin. [address], [place], [address], [place]. tel:[phone] Referring Provider: Kaleb Lee, [address], [place], [address] . tel:[phone] Family History Family Member Type Diagnosis Age At Onset No Information Payers Payer name Insurance type Covered constitution party ID Anne brian(s) Jacki Medicare PPO 16 [id number] Social History Type Description Quantity Date Captured [...]
[2023-07-15 12:40] LABS: Lactate* 2.2 mmol/L (0.5-1.9)
[2023-07-15 12:41] LABS: Basophils Percent Auto 0.1 % (0.0-3.0); Eosinophils Percent Auto 0.3 % (0.0-7.0); Hematocrit 39.6 % (37.0-53.0); Hemoglobin* 13.1 gm/dL (13.5-17.5); Immature Granulocytes Pct Auto 0.2 %; Lymphocytes Percent Auto 3.7 % (20-44); Mean Corpuscular HGB Conc 33 gm/dL (32-36); Mean Corpuscular Hemoglobin 31 pg (26-34); Mean Corpuscular Volume 93 fL (80-100); Monocytes Percent Auto 3.8 % (0.0-11.0); Neutrophils Percent Auto 91.9 % (42.0-72.0); Platelet Count* 326 K/uL (140-440); RDW Coefficient of Variation % 14.2 % (11.5-15.5); Red Blood Count 4.25 m/uL (4.30-5.90); White Blood Count* 24.27 K/uL (4.50-11.00)
[2023-07-15 12:43] LABS: Slide Review Reflex Yes
[2023-07-15 12:57] LABS: Albumin* 4.1 g/dL (3.3-5.0); Chloride* 102 mmol/L (96-114); Potassium* 4.3 mmol/L (3.6-5.1); Sodium* 136 mmol/L (135-149)
[2023-07-15 12:59] LABS: Bilirubin Total* 0.4 mg/dL (0.1-1.5); Creatinine* 0.7 mg/dL (0.5-1.5); Estimated Glomerular Filt Rate 94 ml/min
[2023-07-15 13:00] LABS: Alanine Aminotransferase* 19 U/L (4-50); Alkaline Phosphatase* 94 U/L (40-150); Anion Gap 8 mEq/L (7-15); Aspartate Amino Transferase* 30 U/L (12-35); Blood Urea Nitrogen* 21 mg/dL (7-30); Calcium* 9.3 mg/dL (8.4-10.6); Carbon Dioxide* 26 mmol/L (20-32); Glucose* 147 mg/dL (60-115); Lipase* 103 U/L (23-300); Total Protein* 7.7 g/dL (6.0-8.3)
[2023-07-15 13:04] LABS: Slide Review Acceptable Review (Acceptable)
[2023-07-15] MEDS: LACTATED RINGERS 1000 ML 1,000 ML IV (13:07)
[2023-07-15 13:12] LABS: Appearance Urine Clear (Clear); Bilirubin Urine Negative (Negative); Blood Urine Negative (Negative); Color Urine Yellow (Yellow); Glucose Urine Negative (Negative); Ketones Urine Negative (Negative); Leukocyte Esterase Urine Negative (Negative); Nitrite Urine Negative (Negative); Protein Urine Negative (Negative); Urobilinogen Urine 0.2 (0.2-1.0)
[2023-07-15 13:12] LABS: Troponin I* < 0.01 ng/mL (0.01-0.04)
[2023-07-15 13:21] LABS: Mucus Urine Moderate; RBC Urine 0-2 (0-2); Squamous Epithelial Cell Urine Few (None-Few); WBC Urine 0-2 (0-5)
[2023-07-15 13:29] LABS: PCR FLU A Negative PCR FLU A (Negative); PCR FLU B Negative PCR FLU B (Negative)
--- NOTE | 2023-07-15 13:29 | CRLHL7_ITS ---
For Patients: As a result of the Century Cures Act, medical imaging exams and procedure reports are released immediately into your electronic medical record. You may view this report before your referring provider. If you have questions, please contact your health care provider. INDICATION: Previous abdominal abscess. Leukocytosis. Weakness. TECHNIQUE: CT abdomen and pelvis acquired with 81 mL Isovue 370 IV contrast. COMPARISON: CT abdomen/pelvis dated 07/08/2023. FINDINGS: Lower chest: Significant motion artifact. Subpleural fibrotic changes in the bilateral lung bases. Liver: No suspicious focal hepatic lesion. Gallbladder and bile ducts: Unremarkable. Pancreas: Unremarkable. Spleen: Unremarkable. Adrenal glands: Unremarkable. Kidneys: Kidneys enhance symmetrically, without hydronephrosis. Stable cyst in the upper pole of the right kidney. Too small to characterize hypodense left renal lesions. Stable mild left hydronephrosis and proximal left hydroureter. Retroperitoneum: No lymphadenopathy. Bowel and mesentery: Pancolitis. Interval decrease in size of the peridiverticular abscess, now measuring 2.2 x 2.0 cm. Normal appendix. There is a prominent loop of nondilated fluid-filled small bowel in the left lower quadrant of the abdomen, with a transition point in the left hemipelvis. No significant ascites. Bladder: Unremarkable for degree of distension. Reproductive organs: Unremarkable. Pelvic lymph nodes: No lymphadenopathy. Vessels: Extensive atherosclerotic plaque. Abdominal wall: No acute abdominal wall abnormality. Bones: Multilevel degenerative changes of the spine. Bones are osteopenic. IMPRESSION: 1. Interval decrease in size of the peridiverticular abscess, now measuring 2.2 x 2.0 cm. 2. Pancolitis. 3. Prominent loop of nondilated fluid-filled small bowel in the left lower quadrant of the abdomen, with a transition point in the left hemipelvis. This may reflect isolated ileus versus early small bowel obstruction. 4. Stable mild left hydronephrosis and proximal left hydroureter, without obstructing calculus identified. This raises concern for possible ureteral stricture. Please note that all CT scans at this facility use dose modulation, iterative reconstruction, and/or weight-based dosing when appropriate to reduce radiation dose to as low as reasonably achievable. Dictated by Campbell Azevedo MD @ 07/15/2023 7:33:46 PM (Electronically Signed)
--- NOTE | 2023-07-15 13:29 | CRLHL7_ITS ---
For Patients: As a result of the Cures Act, medical imaging exams and procedure reports are released immediately into your electronic medical record. You may view this report before your referring provider. If you have questions, please contact your health care provider. INDICATION: Weakness, leukocytosis. TECHNIQUE: Chest 1 view(s) COMPARISON: None. FINDINGS: Mild cardiomegaly. Normal pulmonary vasculature. Lungs are hypoinflated. Mild interstitial opacities bilaterally. No layering pleural effusion. No pneumothorax. No acute chest wall abnormality. IMPRESSION: 1. Mild interstitial opacities bilaterally, may reflect component of mild pulmonary edema versus atypical viral process. 2. Mild cardiomegaly. Dictated by Campbell Azevedo MD @ 07/15/2023 5:37:48 PM (Electronically Signed)
[2023-07-15 14:13] LABS: SARS PCR* Negative SARS-CoV-2 (Negative)
[2023-07-15] MEDS: PIPERACILLIN/TAZOBACTAM 3.375 GM in 0.9 % SODIUM CHLORIDE Mini-bag 100 ML IVPB ×2 (14:29→14:31)
--- NOTE | 2023-07-15 14:37 | ED.NURSE ---
Pt went to the bathroom and wet his jeans. This nurse and aide tried to change him and he is verbally belligerent and refusing care. Doctor notified.
[2023-07-15] MEDS: 0.9 % SODIUM CHLORIDE 1000 ml 1,000 ML IV (15:16)
[2023-07-15] MEDS: 0.9 % SODIUM CHLORIDE 250 ml 250 ML 1000 ML IV (16:00)
--- NOTE | 2023-07-15 18:14 | CRLHL7_ITS ---
For Patients: As a result of the Century Cures Act, medical imaging exams and procedure reports are released immediately into your electronic medical record. You may view this report before your referring provider. If you have questions, please contact your health care provider. INDICATION: Possible aspiration TECHNIQUE: Chest 1 view. Permanently recorded images are archived. COMPARISON: CT abdomen and pelvis from the same day FINDINGS: Cardiovascular and mediastinum: Heart size and vasculature are normal in caliber and appearance. Lungs and pleural spaces: Left basilar atelectasis and/or fibrotic changes. No focal consolidation. No pleural effusion or pneumothorax. Bones and soft tissues: Tiny calcified intra-articular body in the right glenohumeral joint. Small calcification about the distal clavicle at the coracoclavicular interval, likely sequela of remote trauma. IMPRESSION: No evidence of an acute pulmonary process. Dictated by Theodore Gallegos MD @ 07/15/2023 8:11:30 PM (Electronically Signed)
[2023-07-15] MEDS: ONDANSETRON 2 MG/ML inj 4 MG IVP (18:15)
[2023-07-15 20:33] LABS: CDIFFEPI 027 PRESUMPTIVE NEGATIVE (Negative)
[2023-07-15 20:36] LABS: C.Difficile POSITIVE (Negative)
--- NOTE | 2023-07-15 20:37 | PC.NURSE ---
positive Cdiff per lab. Reported to Dr Kirby
[2023-07-15] MEDS: ACETAMINOPHEN 325 MG TABLET 650 MG PO (20:51)
[2023-07-15] MEDS: VANCOMYCIN 125 MG CAPSULE PO (20:52)
[2023-07-15 20:59] LABS: Lactate* 0.9 mmol/L (0.5-1.9)
--- NOTE | 2023-07-15 22:50 | ED.NURSE ---
report to [facility]s for transfer
== END 2023-07-15 22:52 | disposition other institution (70) ==
PROVIDERS: Emergency Provider Student in an Organized Health Care Education/Training Program; PCP Family Medicine
DX: A04.72 Enterocolitis due to Clostridium difficile, not specified as recurrent (principal); A41.9 Sepsis, unspecified organism
CPT/HCPCS: 36415; 70450; 71045; 72125; 74177; 80053; 81001; 83605; 83690; 84484; 85025; 87040; 87493; 87631; 93005; 96365; 96375; 99284; 99291; A9270; J2405; J2543; J7030; J7050; J7120; Q9967

== ENCOUNTER 2023-07-15 22:34 | Outpatient (CLI) | payer OTHER, SELFPAY ==
--- OUTSIDE RECORDS SUMMARY | 2023-07-17 06:46 | XMS_ITS | Continuity of Care Document ---
Author Name Unknown Organization [facility] Address [address] [place] [address] Phone Care Team Providers Care Multiple Cut Off Saw Operator Name Role Phone Linwood DAVID Amisathya Unavailable [...] C, [address], [place], [address], [place] tel:[phone] [facility] No Information 3 hbjames Amir. [facility], [address], [place], [place], [address] , [place]. tel:[phone] Office/Outpat ient Visit,Est, [facility], [address], [place], [address], [place] tel:[phone] [facility] [place] [facility] Spinal stenosis, lumbar region with neurogenic claudication 3 Mehbod Amir. [facility], [address] [place] [address] [address], [place], [address] , [place]. tel:[phone] Referring Provider: Juan Pablo Amaya, [facility] [address], [place], [address]. tel:[phone] Office/Outpat ient Visit,[facility], [facility], [address], [place], [address], [place] tel:[phone] [facility] Low back painSpinal stenosis, lumbar region with neurogenic claudication 1 Kenzie Leary. [facility], [address], [facility] [place], [address] , [place]. tel:[phone] Referring Provider: Juan Pablo Amaya, [facility] [address], [place], [address]. tel:[phone] Family History Family Member Type Diagnosis Age At Onset No Information Payers Payer name Insurance type Covered libertarian ID Authoriza tion(s) [employer] Medicare Gold Choice Ramesh CONTRERAS [id number] Social History Type Description Quantity Date [...]
--- OUTSIDE RECORDS SUMMARY | 2023-07-17 06:46 | XMS_ITS | Continuity of Care Document ---
Author Name Unknown Organization Malachi [facility] Address [address] [facility] [address] [place] [address] Phone Care Team Providers Care Cashier Associate Name Role Phone Emmanuel Marya ROMAN Unavailable [...] by oral route 2 times every week 18080 UNITS - Active Procedures Procedure Date Est [...] Providers Copied on Encounter MONSERRAT Ly, [address], [place], [place], [address], [place] tel:[phone] [facility] No Information 3 [facility]. [address], [place], [address], [place]. tel:[phone] Referring Provider: Kaleb Lee, [address], [place], [address] . tel:[phone] Est Pt Eval 25 Min Malachi [facility], [address], [place], [place], [address], [place] tel:[phone] [facility] back pain (chief complaint) Body mass index (BMI) 26.0-26.9, adultRadiculopathy, lumbar region 3 Emmanuel Marya. [address], [place], [address], [place]. tel:[phone] Referring Provider: Kaleb Lee, [address], [place], [address] . tel:[phone] Mal[facility], [address], [place], [place], [address], [place] tel:[phone] [facility] No Information 3 Jesus Zapata. [address], [place], [place], [address], [place]. tel:[phone] Referring Provider: Benny Lee, [address], [place], [address] . tel:[phone] [facility], [address], [place], [address], [place] tel:[phone] [facility] back pain (chief complaint) Radiculopathy, lumbar regionRadiculopathy , lumbar region 3 [facility]. [address], [place], [place], [address], [place]. tel:[phone] Referring Provider: Benny Lee, [address], [place], [address] . tel:[phone] [facility], [facility], [address], [place], [place], [address], [place] tel:[phone] [facility] No Information 3 Jesus Zapata. [address], [place], [place], [address], [place]. tel:[phone] Referring Provider: Benny Lee, [address], [place], [address] . tel:[phone] New Pt Eval 60 Min [facility], [facility], [address], [place], [place], [address], [place] tel:[phone] [facility] back pain (chief complaint) Radiculopathy, lumbar regionVertebrogenic low back painBody mass index (BMI) 27.0-27.9, adult Fe- 3 Foster Florni. [address], [place], [address], [place]. tel:[phone] Referring Provider: Kaleb Lee, [address], [place], [address] . tel:[phone] Family History Family Member Type Diagnosis Age At Onset No Information Payers Payer name Insurance type Covered green party ID Anne brian(s) Jacki Medicare PPO 16 [id number] Social History Type Description Quantity Date Captured [...]
== END 2023-07-15 22:35 | disposition home or self-care (01) ==
LOC: AMB 07-17 06:45
PROVIDERS: PCP Family Medicine; Visit Provider Emergency Medicine
DX: R53.1 Weakness (principal); A41.9 Sepsis, unspecified organism
CPT/HCPCS: A0425; A0426

== ENCOUNTER 2023-07-28 12:51 | Outpatient (CLI) | payer MEDICARE, SELFPAY ==
--- OUTSIDE RECORDS SUMMARY | 2023-08-01 08:39 | XMS_ITS | Continuity of Care Document ---
Author Name Unknown Organization [facility] Address [address] [place] [address] Phone Care Team Providers Care Bell Spinner Sousaphones Name Role Phone Magalie Palumbo MD Unavailable [...] C, [address], [place], [id number], [place] tel:[phone] [facility] No Information 3 Linwood Amir. [facility], [address], [place], [place], [id number] , [place]. tel:[phone] Office/Outpat ient Visit,Est, Mod [facility], [address], [place], [id number], [place] tel:[phone] [facility] Spinal stenosis, lumbar region with neurogenic claudication 3 Mehbod Amir. [facility], [address] [place] [address] [address], [place], [place], [id number] , [place]. tel:[phone] Referring Provider: Juan Pablo Amaya, [facility] [address], [place], [address]. tel:[phone] Office/Outpat ient Visit,[facility], [facility], [address], [place], [id number], [place] tel:[phone] [facility] Low back painSpinal stenosis, lumbar region with neurogenic claudication 1 Kenzie Leary. [facility], [address], [address], [facility] [place], [address] , [place]. tel:[phone] Referring Provider: Juan Pablo Amaya, [facility] [address], [place], [address]. tel:[phone] Family History Family Member Type Diagnosis Age At Onset No Information Payers Payer name Insurance type Covered constitution party ID Authoriza tion(s) [employer] Medicare Gold Choice Ramesh CONTRERAS [id number] Social History Type Description Quantity Date [...]
--- OUTSIDE RECORDS SUMMARY | 2023-08-01 08:39 | XMS_ITS | Continuity of Care Document ---
Author Name Unknown Organization [facility] Address [address] [place] [address] Phone Care Team Providers Care Electrotype Finisher Name Role Phone Emmanuel Marya ROMAN Unavailable [...] by oral route 2 times every week [address] UNITS - Active Procedures Procedure Date Est [...] Providers Copied on Encounter MONSERRAT Ly, [address], [place], [place], [address], [place] tel:[phone] [facility] No Information 3 [facility]. [address], [place], [address], [place]. tel:[phone] Referring Provider: Kaleb Lee, [address], [place], [address] . tel:[phone] Est Pt Eval [address] [facility], [address], [place], [place], [address], [place] tel:[phone] [facility] back pain (chief complaint) Body mass index (BMI) 26.0-26.9, adultRadiculopathy, lumbar region 3 Emmanuel Marya. [address], [place], [address], [place]. tel:[phone] Referring Provider: Kaleb Lee, [address], [place], [address] . tel:[phone] [facility], [address], [place], [place], [address], [place] tel:[phone] [facility] No Information 3 Jesus Zapata. [address], [place], [place], [address], [place]. tel:[phone] Referring Provider: Benny Lee, [address], [place], [address] . tel:[phone] [facility], [address], [place], [address], [place] tel:[phone] [facility] back pain (chief complaint) Radiculopathy, lumbar regionRadiculopathy , lumbar region 3 [facility]. [address], [place], [address], [place]. tel:[phone] Referring Provider: Benny Lee, [address], [place], [address] . tel:[phone] [facility], [facility], [address], [place], [place], [address], [place] tel:[phone] [facility] No Information 3 Jesus Zapata. [address], [place], [place], [address], [place]. tel:[phone] Referring Provider: Benny Lee, [address], [place], [address] . tel:[phone] New Pt Eval 60 Min [facility], [facility], [address], [place], [place], [address], [place] tel:[phone] [facility] back pain (chief complaint) Radiculopathy, lumbar regionVertebrogenic low back painBody mass index (BMI) 27.0-27.9, adult Fe- 3 Foster Florin. [address], [place], [address], [place]. tel:[phone] Referring Provider: Kaleb eLe, [address], [place], [address] . tel:[phone] Family History Family Member Type Diagnosis Age At Onset No Information Payers Payer name Insurance type Covered republican ID Anne brian(s) Jacki Medicare PPO 16 [id number] Social History Type Description Quantity Date Captured [...]
== END 2023-07-28 12:52 | disposition home or self-care (01) ==
LOC: AMB 08-01 08:38
PROVIDERS: PCP Family Medicine; Visit Provider Family Medicine
DX: R53.1 Weakness (principal)
CPT/HCPCS: A0429; A0998

== ENCOUNTER 2023-08-31 14:31 | Outpatient (CLI) | payer MEDICARE, SELFPAY ==
--- OUTSIDE RECORDS SUMMARY | 2023-08-31 14:35 | XMS_ITS | Continuity of Care Document ---
Author Name Unknown Organization [facility] Address [address] [place] [address] Phone Care Team Providers Care General Internal Medicine Doctor Name Role Phone Linwood DAVID Amisathya Unavailable [...] C, [address], [place], [id number], [place] tel:[phone] [facility] No Information 3 hbjames Amir. [facility], [address], [place], [place], [address] , [place]. tel:[phone] Office/Outpat ient Visit,Est, Mod [facility], [address], [place], [id number], [place] tel:[phone] [facility] Spinal stenosis, lumbar region with neurogenic claudication 3 Mehbod Amir. [facility], [address], [place], [address] , [place]. tel:[phone] Referring Provider: Juan Pablo Amaya, [facility] [address], [place], [address]. tel:[phone] Office/Outpat ient Visit,[facility], [facility], [address], [place], [id number], [place] tel:[phone] [facility] Low back painSpinal stenosis, lumbar region with neurogenic claudication 1 Kenzie Leary. [facility], [address], [facility] [place], [address] , [place]. tel:[phone] Referring Provider: Juan Pablo Amaya, [facility] [address], [place], [address]. tel:[phone] Family History Family Member Type Diagnosis Age At Onset No Information Payers Payer name Insurance type Covered alliance party ID Authoriza tion(s) [employer] Medicare Gold Choice Ramesh CONTRERAS [id number] Social History Type Description Quantity Date [...]
--- OUTSIDE RECORDS SUMMARY | 2023-08-31 14:35 | XMS_ITS | Clinical Summary ---
Author Name Unknown Organization [facility] Address [address] [place] [id number] Care Team Providers Care Lining Inserter Name Role Phone No Ref-Primary, Physician Primary Care Provider Allergies No known active allergies Medications Medication Sig Dispensed Refills Start Date End Date Status aspirin (ASA) 325 MG EC tablet Take 325 mg by mouth daily 0 Active simvastatin (ZOCOR) 20 MG tablet Take 20 mg by mouth At Bedtime 0 Active lisinopril (ZESTRIL) 20 MG tablet Take 20 mg by mouth at bedtime 0 Active multivitamin w/minerals (MULTI-VITAMIN) tablet Take 1 tablet by mouth daily 0 Active acetaminophen (TYLENOL) 325 MG tabletIndication s:Intra-abdomina l abscess (H) Take 2 tablets (650 mg) by mouth every 6 hours as needed for mild pain Maximum of 4,000 mg of acetaminophen in any 24 hour period. 0 03/30/2023 Active ALPRAZolam (XANAX) 0.5 MG tablet Take 0.5 mg by mouth 2 times daily as needed for anxiety 0 Active Ascorbic Acid (VITAMIN C) 500 MG CAPS Take 500 mg by mouth every other day 0 Active latanoprost (XALATAN) 0.005 % ophthalmic solution Place 1 drop into both eyes every 3 days 0 Active nicotine (NICODERM CQ) 21 MG/24HR [address] 1 patch onto the skin daily as needed for smoking cessation 0 Active traMADol (ULTRAM) 50 MG tablet TAKE ONE OR TWO TABLETS BY MOUTH EVERY SIX HOURS NEEDED FOR PAIN* 0 Active nitroGLYcerin (NITROSTAT) 0.[address] 0.4 mg under the tongue every 5 minutes as needed for chest pain 0 08/05/2022 Active cholecalciferol (VITAMIN D3) 125 mcg (5000 units) capsule Take 125 mcg by mouth daily 0 Active lactobacillus rhamnosus, GG, (CULTURELL) capsule Take 1 capsule by mouth daily 0 Active ibuprofen (ADVIL/MOTRIN) 200 MG tablet Take 600-800 mg by mouth every 6 hours as needed for pain 0 Active ergocalciferol (VITAMIN D2) 400 units (10 mcg) TABS tablet Take 400 Units by mouth daily 0 4 Discontinued (Med Rec(No AVS / No eCancel)) vancomycin (VANCOCIN) 125 MG capsuleIndicatio ns:Clostridioide s difficile Take 1 capsule (125 mg) by mouth 4 times daily 4 capsule 0 07/19/2023 4 Discontinued (Med Rec(No AVS / No eCancel)) multivitamin w/minerals (MULTI-VITAMIN) tablet Take by mouth every 24 hours 0 4 Discontinued (Med Rec(No AVS / No eCancel)) fidaxomicin (DIFICID) 200 MG tabletIndication s:Clostridioides difficile Take 1 tablet (200 mg) by mouth 2 times daily for 9 days 18 tablet 0 08/20/2023 4 Active Problems Problem Noted Date Diagnosed Date Pancolitis 08/18/2023 C. difficile colitis 08/18/2023 Clostridioides difficile infection 07/16/2023 Intra-abdominal abscess 03/25/2023 Encounters Date Type Department Care Team Description 08/20/2023 Hospital Encounter [facility] [address] [place] [id number] Mauricio Padilla MD Colonic diverticular abscess 08/18/2023 9:47 PM PRINCIPAL INVESTIGATOR - 08/21/2023 1:51 PM PRINCIPAL INVESTIGATOR Hospital Encounter [facility] General Surgery [address] [place] [address] Luisa Mendoza MD Schneider, Jun Zapata MD Clostridioides difficile infection (Primary Dx); Pancolitis (H); Intra-abdominal abscess (H); C. difficile colitis Discharge Disposition: Home-Health Care [facility] [place] 08/18/2023 Travel 08/18/2023 Orders Only [facility] [address] [place] [address] Carlyn Barba MD C. difficile diarrhea (Primary Dx) 08/17/2023 Orders Only [facility] [address] [place] [place] [address] Carlyn Barba MD 08/12/2023 Hospital Encounter [facility] Endoscopy [address] [id number] Carlyn Barba MD 08/02/2023 Prep for Procedure [facility] [address] [place] [id number] Mauricio Padilla MD Colonic diverticular abscess (Primary Dx) 07/15/2023 11:33 PM PRINCIPAL INVESTIGATOR - 07/19/2023 1:53 PM PRINCIPAL INVESTIGATOR Hospital Encounter [facility] Intermediate Care [address] [phone] Jun Dobbs, Gene Christianson MD Clostridioides difficile infection (Primary Dx) Discharge Disposition: Home or Self Care from Last 3 Months Social History Tobacco Use Types Packs/Day Years Used Date Smoking Tobacco: Every Day Cigarettes Smokeless Tobacco: Never Tobacco Cessation:Ready to Q uit: Not Asked; Counseling Given: Not Answered Alcohol Use Standard Drinks/Week Comments Not Currently 0 (1 standard drink = 0.6 oz pur e alcohol) Adolescent Education Answer Date Record ed Getting School Help Needed Not on file 04/17 Sex and Gender Information Value Date Recorded Sex Assigned at Not on file Gender Identity Not on file Sexual Orientation Not on file Last Filed Vital Signs Vital Sign Reading Time Taken Comments Blood Pressure 184/94 08/21/2023 11:03 AM PRINCIPAL INVESTIGATOR Pulse 74 08/21/2023 11:03 AM PRINCIPAL INVESTIGATOR Temperature 36.7 ??C (98 ??F) 08/21/2023 11:03 AM PRINCIPAL INVESTIGATOR Respiratory Rate 18 08/21/2023 11:03 AM PRINCIPAL INVESTIGATOR Oxygen Saturation 95% 08/21/2023 11:03 AM PRINCIPAL INVESTIGATOR Inhaled Oxygen Concentration - - Weight 73 kg (161 lb) 08/18/2023 7:03 PM PRINCIPAL INVESTIGATOR Height 170.2 cm (5' 7) 08/18/2023 7:03 PM PRINCIPAL INVESTIGATOR Body Mass Index 25.22 08/18/2023 7:03 PM PRINCIPAL INVESTIGATOR Plan of Treatment Health Maintenance Due Date Last Done Comments ADVANCE CARE PLANNING 1945 ANNUAL REVIEW OF HM ORDERS 1944 LIPID 1944 NICOTINE/TOBACCO CESSATION COUNSELING Q 1 YR 1944 HEPATITIS C SCREENING 1962 LUNG CANCER SCREENING 1994 ZOSTER IMMUNIZATION (1 of 2) 1994 RSV VACCINE ( & 60+) (1 - 1-dose 60+ series) 2004 FALL RISK ASSESSMENT 2009 MEDICARE ANNUAL WELLNESS VISIT 2009 DTAP/TDAP/TD IMMUNIZATION (1 - Tdap) 07/03/2018 07/02/2018, 07/02/2018 PHQ-2 (once per calendar year) 2023 GLUCOSE 08/21/2026 08/21/2023, 07/27, 08/18/2023, Additional history exists Pneumococcal Vaccine: 65+ Years Completed 04/15/2018, 07/25/2014 COVID-19 Vaccine Completed 05/07/2023, , 01/01/2022, Additional history exists INFLUENZA VACCINE Completed 05/07/2023, , 04/11/2021, Additional history exists HPV IMMUNIZATION Aged Out No longer e ligible based on patient's age to complete this topic IPV IMMUNIZATION Aged Out No longer e ligible based on patient's age to complete this topic MENINGITIS IMMUNIZATION Aged Out No l onger eligible based on patient's age to complete this topic RSV MONOCLONAL ANTIBODY Aged Out No l onger eligible based on patient's age to complete this topic Procedures Procedure Name Priority Date/Time Associated Diagnosis Comments CBC WITH PLATELETS & DIFFERENTIAL Routine 08/21/2023 7:42 AM PRINCIPAL INVESTIGATOR CBC WITH PLATELETS AND DIFFERENTIAL Routine 08/21/2023 7:42 AM PRINCIPAL INVESTIGATOR BASIC METABOLIC PANEL Routine 08/21/2023 7:42 AM PRINCIPAL INVESTIGATOR PHOSPHORUS Routine 08/21/2023 7:42 AM PRINCIPAL INVESTIGATOR POTASSIUM Timed 08/20/2023 10:02 PM PRINCIPAL INVESTIGATOR CBC WITH PLATELETS & DIFFERENTIAL Routine 08/20/2023 7:00 AM PRINCIPAL INVESTIGATOR CBC WITH PLATELETS AND DIFFERENTIAL Routine 08/20/2023 7:00 AM PRINCIPAL INVESTIGATOR PHOSPHORUS Routine 08/20/2023 7:00 AM PRINCIPAL INVESTIGATOR BASIC METABOLIC PANEL Routine 08/20/2023 7:00 AM PRINCIPAL INVESTIGATOR PHOSPHORUS Routine 08/19/2023 3:45 PM PRINCIPAL INVESTIGATOR ROUTINE UA WITH MICROSCOPIC REFLEX TO CULTURE Routine 08/19/2023 2:55 AM PRINCIPAL INVESTIGATOR C. DIFFICILE ANTIGEN AND TOXINS A/B BY ENZYME IMMUNOASSAY STAT 08/18/2023 11:41 PM PRINCIPAL INVESTIGATOR C. DIFFICILE TOXIN B PCR WITH REFLEX TO C. DIFFICILE ANTIGEN AND TOXINS A/B EIA STAT 08/18/2023 11:[address] ABDOMEN PELVIS W/O & W CONTRAST STAT 08/18/2023 8:56 PM PRINCIPAL INVESTIGATOR CBC WITH PLATELETS & DIFFERENTIAL STAT 08/18/2023 7:11 PM PRINCIPAL INVESTIGATOR CBC WITH PLATELETS AND DIFFERENTIAL STAT 08/18/2023 7:11 PM PRINCIPAL INVESTIGATOR COMPREHENSIVE METABOLIC PANEL STAT 08/18/2023 7:11 PM PRINCIPAL INVESTIGATOR MAGNESIUM STAT 08/18/2023 7:11 PM PRINCIPAL INVESTIGATOR MAGNESIUM Routine 07/19/2023 6:13 AM PRINCIPAL INVESTIGATOR BASIC METABOLIC PANEL Routine 07/19/2023 6:13 AM PRINCIPAL INVESTIGATOR CBC WITH PLATELETS Routine 07/19/2023 6: 13 AM PRINCIPAL INVESTIGATOR CBC WITH PLATELETS Timed 07/18/2023 2: 30 PM PRINCIPAL INVESTIGATOR BASIC METABOLIC PANEL Timed 07/18/2023 2:30 PM PRINCIPAL INVESTIGATOR POTASSIUM Timed 07/18/2023 5:52 AM PRINCIPAL INVESTIGATOR POTASSIUM Timed 07/18/2023 12:57 AM PRINCIPAL INVESTIGATOR POTASSIUM Timed 07/17/2023 6:58 PM PRINCIPAL INVESTIGATOR MAGNESIUM Add-On 07/17/2023 5:57 AM PRINCIPAL INVESTIGATOR BASIC METABOLIC PANEL Routine 07/17/2023 5:57 AM PRINCIPAL INVESTIGATOR CBC WITH PLATELETS Routine 07/17/2023 5: 57 AM PRINCIPAL INVESTIGATOR LACTIC ACID WHOLE BLOOD Routine 07/16/2023 5:42 AM PRINCIPAL INVESTIGATOR CBC WITH PLATELETS Routine 07/16/2023 5: 42 AM PRINCIPAL INVESTIGATOR COMPREHENSIVE METABOLIC PANEL Routine 07/16/2023 5:42 AM PRINCIPAL INVESTIGATOR C. DIFFICILE ANTIGEN AND TOXINS A/B BY ENZYME IMMUNOASSAY Routine 07/16/2023 1:57 AM PRINCIPAL INVESTIGATOR C. DIFFICILE TOXIN B PCR WITH REFLEX TO C. DIFFICILE ANTIGEN AND TOXINS A/B EIA Routine 07/16/2023 1:57 AM PRINCIPAL INVESTIGATOR BASIC METABOLIC PANEL STAT 07/16/2023 12:42 AM PRINCIPAL INVESTIGATOR LACTIC ACID WHOLE BLOOD STAT 07/16/2023 12:42 AM PRINCIPAL INVESTIGATOR CBC WITH PLATELETS STAT 07/16/2023 12 :42 AM PRINCIPAL INVESTIGATOR EKG CARDIAC - HIM SCAN 12:00 AM PRINCIPAL INVESTIGATOR XRAY IMAGING - HIM SCAN 07/15/2023 12:00 AM PRINCIPAL INVESTIGATOR from Last 3 Months Results * (ABNORMAL) CBC with platelets and differential (08/21/2023 7:42 AM [facility]) Only the most recent of3 resultswithin the time period is included. WBC Count 8.9 4.0 - 11.0 10e3/uL 08/21/2023 7:56 AM [facility] RBC Count 4.30(L) 4.40 - 5.90 10e6/uL 08/21/2023 7:56 AM [facility] Hemoglobin 13.0(L) 13.3 - 17.7 g/dL 08/21/2023 7:56 AM [facility] Hematocrit 38.4(L) 40.0 - 53.0 % 08/21/2023 7:56 AM [facility] MCV 89 78 - 100 fL 08/21/2023 7:56 AM [facility] MCH 30.2 26.5 - 33.0 pg 08/21/2023 7:56 AM [facility] MCHC 33.9 31.5 - 36.5 g/dL 08/21/2023 7:56 AM [facility] RDW 13.8 10.0 - 15.0 % 08/21/2023 7:56 AM [facility] Platelet Count 136(L) 150 - 450 10e3/uL 08/21/2023 7:56 AM [facility] % Neutrophils 67 % 08/21/2023 7:56 AM [facility] % Lymphocytes 22 % 08/21/2023 7:56 AM [facility] % Monocytes 9 % 08/21/2023 7:56 AM [facility] % Eosinophils 1 % 08/21/2023 7:56 AM [facility] % Basophils 0 % 08/21/2023 7:56 AM [facility] % Immature Granulocytes 1 % 08/21/2023 7:56 AM [facility] NRBCs per 100 WBC 0 <1 /100 024 7:56 AM [facility] Absolute Neutrophils 6.0 1.6 - 8.3 10e3/uL 08/21/2023 7:56 AM [facility] Absolute Lymphocytes 2.0 0.8 - 5.3 10e3/uL 08/21/2023 7:56 AM [facility] Absolute Monocytes 0.8 0.0 - 1.3 10e3/uL 08/21/2023 7:56 AM [facility] Absolute Eosinophils 0.1 0.0 - 0.7 10e3/uL 08/21/2023 7:56 AM [facility] Absolute Basophils 0.0 0.0 - 0.2 10e3/uL 08/21/2023 7:56 AM [facility] Absolute Immature Granulocytes 0.1 <=0.4 10e3/uL 08/21/2023 7:56 AM [facility] Absolute NRBCs 0.0 10e3/uL 08/21/2023 7:56 AM PRINCIPAL INVESTIGATOR LABORATORY Blood BLOOD SPECIMEN / Unknown Venipuncture / Unknown 08/21/2023 7:42 AM PRINCIPAL INVESTIGATOR 08/21/2023 7:48 AM PRINCIPAL INVESTIGATOR Chris Marie MD LAB - BLOOD ORDERAB LES [facility] [address], [address] [place] [address], [facility] [phone] * Phosphorus (08/21/2023 7:42 AM PRINCIPAL INVESTIGATOR) Only the most recent of3 resultswithin the time period is included. [facility] Signature Phosphorus 3.1 2.5 - 4.5 mg/dL 08/21/2023 8:15 AM [facility] Blood BLOOD SPECIMEN / Unknown Venipuncture / Unknown 08/21/2023 7:42 AM PRINCIPAL INVESTIGATOR 08/21/2023 7:48 AM PRINCIPAL INVESTIGATOR Jun Leone MD LAB - BLOOD OR DERABLES [facility] [address], [address] [place] [address], [facility] [phone] * (ABNORMAL) Basic metabolic panel (08/21/2023 7:42 AM PRINCIPAL INVESTIGATOR) Only the most recent of6 resultswithin the time period is included. Sodium 136 135 - 145 mmol/L 08/21/2023 8:15 AM [facility] Comment:Reference intervals for this test were updated on 04/20/2023 to more accurately reflect our healthy population. There may be differences in the flagging of prior results with similar values performed with this method. Interpretation of those prior results can be made in the context of the updated reference intervals. Potassium 3.3(L) 3.4 - 5.3 mmol/L 08/21/2023 8:15 AM [facility] Chloride 100 98 - 107 mmol/L 08/21/2023 8:15 AM [facility] Carbon Dioxide (CO2) 25 22 - 29 mmol/L 08/21/2023 8:15 AM [facility] Anion Gap 11 7 - 15 mmol/L 08/21/2023 8:15 AM [facility] Urea Nitrogen 6.9(L) 8.0 - 23.0 mg/dL 08/21/2023 8:15 AM [facility] Creatinine 0.70 0.67 - 1.17 mg/dL 08/21/2023 8:15 AM [facility] GFR Estimate >90 >60 mL/min/1. 73m2 08/21/2023 8:15 AM [facility] Calcium 8.8 8.8 - 10.2 mg/dL 08/21/2023 8:15 AM [facility] Glucose 98 70 - 99 mg/dL 08/21/2023 8:15 AM [facility] Blood BLOOD SPECIMEN / Unknown Venipuncture / Unknown 08/21/2023 7:42 AM PRINCIPAL INVESTIGATOR 08/21/2023 7:48 AM [facility] Chris Marie MD LAB - BLOOD ORDERAB LES LABORATORY [facility] [address], [address] [place] [address], [facility] [phone] * Potassium (08/20/2023 10:02 PM PRINCIPAL INVESTIGATOR) Only the most recent of4 resultswithin the time period is included. Potassium 3.6 3.4 - 5.3 mmol/L 08/20/2023 10:20 PM [facility] Blood STRUCTURE OF LEFT UPPER LIMB / Unknown Venipuncture / Unknown 08/20/2023 10:02 PM PRINCIPAL INVESTIGATOR 08/20/2023 10:07 PM [facility] Jun Leone MD LAB - BLOOD OR DERABLES LABORATORY [facility] [address], [address] [place] [address], [facility] [phone] * (ABNORMAL) UA with Microscopic reflex to Culture (08/19/2023 2:55 AM [facility]) Color Urine Light Yellow Colorless, Straw, Light Yellow, Yellow 08/19/2023 3:13 AM [facility] Appearance Urine Clear Clear 08/19/19 3:13 AM [facility] Glucose Urine Negative Negative mg/dL 08/19/2023 3:13 AM [facility] Bilirubin Urine Negative Negative 3:13 AM [facility] Ketones Urine 10(A) Negative mg/dL 08/19/2023 3:13 AM [facility] Specific [place] Urine 1.015 1.003 - 1.035 STEPHEN 08/19/2023 3:13 AM [facility] Blood Urine Negative Negative 08/19/2023 3:13 AM [facility] pH Urine 5.5 5.0 - 7.0 08/19/2023 3:13 AM [facility] Protein Albumin Urine Negative Negative mg/dL 08/19/2023 3:13 AM [facility] Urobilinogen Urine Normal Normal, 2.0 mg/dL 08/19/2023 3:13 AM [facility] Nitrite Urine Negative Negative 08/19/2023 3:13 AM [facility] Leukocyte Esterase Urine Negative Negative 08/19/2023 3:13 AM [facility] Mucus Urine Present(A) None Seen /LPF 08/19/2023 3:13 AM [facility] RBC Urine 1 <=2 /HPF 08/19/2023 3:13 AM [facility] WBC Urine 1 <=5 /HPF 08/19/2023 3:13 AM PRINCIPAL INVESTIGATOR LABORATORY Urine URINE SPECIMEN OBTAINED BY CLEAN CATCH PROCEDURE / Unknown Non-blood Collection / Unknown 08/19/2023 2:55 AM PRINCIPAL INVESTIGATOR 08/19/2023 3:05 AM PRINCIPAL INVESTIGATOR Narrative LABORATORY - 08/19/2023 3:13 AM PRINCIPAL INVESTIGATOR Urine Culture not indicated Jun Leone MD LAB - URINE OR DERABLES LABORATORY [facility] [address], [address] [place] [address], [place] [phone] * (ABNORMAL) C. difficile Antigen and Toxins A/B by Enzyme Immunoassay (08/18/2023 11:41 PM PRINCIPAL INVESTIGATOR) Only the most recent of2 resultswithin the time period is included. C. difficile GDH Antigen Positive(A ) Negative STEPHEN 08/19/2023 6:00 AM PRINCIPAL INVESTIGATOR [facility] C. difficile Toxin Positive(A ) Negative STEPHEN 08/19/2023 6:00 AM PRINCIPAL INVESTIGATOR [facility] Stool RECTAL CONTENTS / Unknown Non-blood Collection / Unknown 08/18/2023 11:41 PM PRINCIPAL INVESTIGATOR 08/18/2023 11:51 PM PRINCIPAL INVESTIGATOR Narrative [facility] - 08/19/2023 6:00 AM PRINCIPAL INVESTIGATOR C. difficile GDH antigen and C. difficile toxin were detected by enzyme immunoassay. Results must be interpreted based on clinical findings and are supportive of C. difficile infection. Luisa Mendoza MD LAB - MICRO GENERAL ORDERABLES [facility] Inf. Diseases Diag. Lab [address] [facility], [address] [place] [address], [place] [phone] * (ABNORMAL) C. difficile Toxin B PCR with reflex to C. difficile Antigen and Toxins A/B EIA (08/18/2023 11:41 PM PRINCIPAL INVESTIGATOR) Only the most recent of2 resultswithin the time period is included. C Difficile Toxin B by PCR Positive( A) Negative 08/19/2023 5:02 AM PRINCIPAL INVESTIGATOR [facility] Comment: Detection of C. difficile nucleic acid in stools confirms the presence of these organisms in diarrheal patients but may not indicate that C. difficile is the etiologic agent of the diarrhea. Results from the Xpert C. difficile assay should be interpreted in conjunction with other laboratory and clinical data available to the clinician. Patients with a positive C. difficile PCR result will receive reflex GDH/Toxin Immunoassay testing. Please interpret the PCR test result in conjunction with GDH/Toxin Immunoassay results and the clinical status of patient. Stool RECTAL CONTENTS / Unknown Non-blood Collection / Unknown 08/18/2023 11:41 PM PRINCIPAL INVESTIGATOR 08/18/2023 11:51 PM PRINCIPAL INVESTIGATOR Narrative [facility] - 08/19/2023 5:02 AM PRINCIPAL INVESTIGATOR [employer] Xpert C. difficile Assay, performed on the [employer], is a qualitative in vitro diagnostic test for rapid detection of toxin B gene sequences from unformed (liquid or soft) stool specimens collected from patients suspected of having Clostridioides difficile infection (CDI). The test utilizes automated real-time polymerase chain reaction (PCR) to detect toxin gene sequences associated with toxin producing C. difficile. The Xpert C. difficile Assay is intended as an aid in the diagnosis of CDI. Luisa Mendoza MD LAB - MICRO GENERAL ORDERABLES [facility] Inf. Diseases Diag. Lab [address] [facility], [address] [place] [address], [facility] [phone] * CT Abdomen Pelvis w/o & w Contrast (08/18/2023 8:56 PM PRINCIPAL INVESTIGATOR) Anatomical Region Laterality Modality Abdomen/Pelvis, SUBRAD CT SISSY DY, UMP CT ABDOMEN PELVIS, RAD CT Computed Tomography 08/18/2023 8:56 PM PRINCIPAL INVESTIGATOR Impressions 08/18/2023 9:14 PM PRINCIPAL INVESTIGATOR IMPRESSION: 1. ??Pancolitis, likely infectious or inflammatory. 2. ??Fluid and gas containing pelvic abscess at the level of L5-S1 has decreased in size since 03/28/2023, now measuring up to 2.2 cm. A small bowel loop and the sigmoid colon are tethered by scar tissue to the abscess, without a definite clear communication with the bowel lumen. 3. ??No new pelvic abscess. 4. ??Possible cystitis. Correlate with urinalysis. Narrative 08/18/2023 9:14 PM PRINCIPAL INVESTIGATOR EXAM: CT ABDOMEN PELVIS W/O and W CONTRAST LOCATION: [facility] DATE: 08/18/2023 INDICATION: Diarrhea. Concern for abdominal abscess. Weight loss. COMPARISON: CT abdomen pelvis 03/28/2023. TECHNIQUE: CT scan of the abdomen and pelvis was performed before and after injection of IV contrast. Multiplanar reformats were obtained. Dose reduction techniques were used. CONTRAST: 83mL Isovue 370 FINDINGS: LOWER CHEST: Paraseptal emphysema. No consolidations or pleural effusions. HEPATOBILIARY: No calcified gallstones or biliary ductal dilation. No liver lesions. PANCREAS: Normal. SPLEEN: Normal. ADRENAL GLANDS: Normal. KIDNEYS/BLADDER: Benign renal cysts, which do not require follow-up. Vascular calcifications at the right renal hilum. No urinary calculi or hydronephrosis. Mild diffuse bladder wall thickening with haziness of the surrounding perivesical fat. BOWEL: No bowel obstruction. No small bowel inflammation. Normal appendix. Diffuse wall thickening and mucosal enhancement of the colon extending from the cecum through the rectum, compatible with colitis. No pneumatosis or colonic dilation. Sigmoid colon and an adjacent small bowel loop are tethered by scar tissue to a gas and fluid containing abscess at the level of L5-S1 measuring 1.7 x 1.6 x 2.2 cm (7/#120, 14/#59), previously 5.0 x 4.0 x 5.1 cm. No clear communication with the bowel lumen. No additional pelvic abscess. Sigmoid colonic diverticulosis. LYMPH NODES: No enlarged lymph nodes. VASCULATURE: Patent portal, splenic, and superior mesenteric veins. Extensive atherosclerosis. No abdominal aortic aneurysm. PELVIC ORGANS: Normal prostate. Left testicle is slightly retracted into the left inguinal canal. MUSCULOSKELETAL: Multilevel degenerative changes of the spine. Transitional anatomy on the left at L5-S1. No acute bony abnormality. Procedure Note Venkat Lofton MD - 08/18/2023 EXAM: CT ABDOMEN PELVIS W/O and W CONTRAST LOCATION: [facility] DATE: 08/18/2023 INDICATION: Diarrhea. Concern for abdominal abscess. Weight loss. COMPARISON: CT abdomen pelvis 03/28/2023. TECHNIQUE: CT scan of the abdomen and pelvis was performed before andafter injection of IV contrast. Multiplanar reformats were obtained. Dosereduction techniques were used. CONTRAST: 83mL Isovue 370 FINDINGS: LOWER CHEST: Paraseptal emphysema. No consolidations or pleuraleffusions. HEPATOBILIARY: No calcified gallstones or biliary ductal dilation. [place]ol[place] lesions. PANCREAS: Normal. SPLEEN: Normal. ADRENAL GLANDS: Normal. KIDNEYS/BLADDER: Benign renal cysts, which do not require follow-up.Vascular calcifications at the right renal hilum. No urinary calculi orhydronephrosis. Mild diffuse bladder wall thickening with haziness of thesurrounding perivesical fat. BOWEL: No bowel obstruction. No small bowel inflammation. Normal appendix.Diffuse wall thickening and mucosal enhancement of the colon extendingfrom the cecum through the rectum, compatible with colitis. No pneumatosisor colonic dilation. Sigmoid colon and an adjacent small bowel loop are tethered by scar tissue to agas and fluid containing abscess at the level of L5-S1 measuring 1.7 x 1.6x 2.2 cm (7/#120, 14/#59), previously 5.0 x 4.0 x 5.1 cm. No clearcommunication with the bowel lumen. No additional pelvic abscess. Sigmoid colonic diverticulosis. LYMPH NODES: No enlarged lymph nodes. VASCULATURE: Patent portal, splenic, and superior mesenteric veins.Extensive atherosclerosis. No abdominal aortic aneurysm. PELVIC ORGANS: Normal prostate. Left testicle is slightly retracted intothe left inguinal canal. MUSCULOSKELETAL: Multilevel degenerative changes of the spine.Transitional anatomy on the left at L5-S1. No acute bony abnormality. IMPRESSION: 1. Pancolitis, likely infectious or inflammatory. 2. Fluid and gas containing pelvic abscess at the level of L5-S1 hasdecreased in size since 03/28/2023, now measuring up to 2.2 cm. A smallbowel loop and the sigmoid colon are tethered by scar tissue to theabscess, without a definite clear communication with the bowel lumen. 3. No new pelvic abscess. 4. Possible cystitis. Correlate with urinalysis. Luisa Mendoza MD IMG CT ORDERABLES * Magnesium (08/18/2023 7:11 PM PRINCIPAL INVESTIGATOR) Only the most recent of3 resultswithin the time period is included. Magnesium 2.1 1.7 - 2.3 mg/dL 08/18/2023 8:14 PM [facility] Blood BLOOD SPECIMEN / Unknown Venipuncture / Unknown 08/18/2023 7:11 PM PRINCIPAL INVESTIGATOR 08/18/2023 7:42 PM PRINCIPAL INVESTIGATOR Luisa Mendoza MD LAB - BLOOD ORDERABL ES LABORATORY [facility] Acute Care Lab [address], [address] [place] [address], [facility] [phone] * Comprehensive metabolic panel (08/18/2023 7:11 PM PRINCIPAL INVESTIGATOR) Only the most recent of2 resultswithin the time period is included. Pathologist [facility] Sodium 140 135 - 145 mmol/L 08/18/2023 8:14 PM [facility] Comment:Reference intervals for this test were updated on 04/20/2023 to more accurately reflect our healthy population. There may be differences in the flagging of prior results with similar values performed with this method. Interpretation of those prior results can be made in the context of the updated reference intervals. Potassium 3.8 3.4 - 5.3 mmol/L 08/18/2023 8:14 PM [facility] Carbon Dioxide (CO2) 25 22 - 29 mmol/L 08/18/2023 8:14 PM [facility] Anion Gap 11 7 - 15 mmol/L 08/18/2023 8:14 PM [facility] Urea Nitrogen 16.8 8.0 - 23.0 mg/dL 08/18/2023 8:14 PM [facility] Creatinine 0.80 0.67 - 1.17 mg/dL 08/18/2023 8:14 PM [facility] GFR Estimate 90 >60 mL/min/1. 73m2 08/18/2023 8:14 PM [facility] Calcium 9.0 8.8 - 10.2 mg/dL 08/18/2023 8:14 PM [facility] Chloride 104 98 - 107 mmol/L 08/18/2023 8:14 PM [facility] Glucose 82 70 - 99 mg/dL 08/18/2023 8:14 PM [facility] Alkaline Phosphatase 86 40 - 150 U/L 08/18/2023 8:14 PM [facility] Comment:Reference intervals for this test were updated on 06/08/2023 to more accurately reflect our healthy population. There may be differences in the flagging of prior results with similar values performed with this method. Interpretation of those prior results can be made in the context of the updated reference intervals. AST 23 0 - 45 U/L 08/18/2023 8:14 PM [facility] Comment:Reference intervals for this test were updated on 01/04/2023 to more accurately reflect our healthy population. There may be differences in the flagging of prior results with similar values performed with this method. Interpretation of those prior results can be made in the context of the updated reference intervals. ALT 22 0 - 70 U/L 08/18/2023 8:14 PM [facility] Comment:Reference intervals for this test were updated on 01/04/2023 to more accurately reflect our healthy population. There may be differences in the flagging of prior results with similar values performed with this method. Interpretation of those prior results can be made in the context of the updated reference intervals. Protein Total 6.7 6.4 - 8.3 g/dL 08/18/2023 8:14 PM [facility] Albumin 3.5 3.5 - 5.2 g/dL 08/18/2023 8:14 PM [facility] Bilirubin Total 0.5 <=1.2 mg/dL 08/18/2023 8:14 PM [facility] Blood BLOOD SPECIMEN / Unknown Venipuncture / Unknown 08/18/2023 7:11 PM PRINCIPAL INVESTIGATOR 08/18/2023 7:42 PM [facility] Luisa Mendoza MD LAB - BLOOD ORDERABL ES LABORATORY [facility] Acute Care Lab [address], [address] [place] [address], [facility] [phone] * (ABNORMAL) CBC with platelets (07/19/2023 6:13 AM PRINCIPAL INVESTIGATOR) Only the most recent of5 resultswithin the time period is included. WBC Count 7.4 4.0 - 11.0 10e3/uL 07/19/2023 6:41 AM [facility] RBC Count 3.71(L) 4.40 - 5.90 10e6/uL 07/19/2023 6:41 AM [facility] Hemoglobin 11.1(L) 13.3 - 17.7 g/dL 07/19/2023 6:41 AM [facility] Hematocrit 33.9(L) 40.0 - 53.0 % 07/19/2023 6:41 AM [facility] MCV 91 78 - 100 fL 07/19/2023 6:41 AM [facility] MCH 29.9 26.5 - 33.0 pg 07/19/2023 6:41 AM [facility] MCHC 32.7 31.5 - 36.5 g/dL 07/19/2023 6:41 AM [facility] RDW 13.6 10.0 - 15.0 % 07/19/2023 6:41 AM [facility] Platelet Count 256 150 - 450 10e3/uL 07/19/2023 6:41 AM [facility] Blood BLOOD SPECIMEN / Unknown Venipuncture / Unknown 07/19/2023 6:13 AM PRINCIPAL INVESTIGATOR 07/19/2023 6:40 AM [facility] Wiliam Henley MD LAB - BLOOD OR DERABLES LABORATORY [facility] Acute Care Lab [address], [address] [place] [address], [facility] [phone] * Lactic acid whole blood (07/16/2023 5:42 AM PRINCIPAL INVESTIGATOR) Only the most recent of2 resultswithin the time period is included. Lactic Acid 1.2 0.7 - 2.0 mmol/L 07/16/2023 6:02 AM [facility] Blood STRUCTURE OF RIGHT HAND / Unknown Venipuncture / Unknown 07/16/2023 5:42 AM PRINCIPAL INVESTIGATOR 07/16/2023 5:51 AM PRINCIPAL INVESTIGATOR Gene Nielsen MD LAB - BLOOD ORDERAB LES LABORATORY [facility] Acute Care Lab [address], [address] [place] [address], [facility] [phone] * XRAY IMAGING - HIM SCAN (07/15/2023 12:00 AM PRINCIPAL INVESTIGATOR) Anatomical Region Laterality Modality Other 07/15/2023 Provider Outside IMG DIAGNOSTIC IMAGI NG ORDERABLES * EKG CARDIAC - HIM SCAN (07/15/2023 12:00 AM PRINCIPAL INVESTIGATOR) 07/15/2023 Provider Outside ECG ORDERABLES from Last 3 Months Additional Health Concerns Infection Onset Date Last Indicated C-difficile 08/18/2023 08/18/2023 Advance Directives For more information, please contact: [phone] Latest Code Status on File Code Status Date Activated Date Inactivated Comments Full Code 08/19/2023 2:46 AM 08/21/2023 3:51 PM All b asic and advanced life-sustaining interventions are performed as appropriate Question Answer Comments Code status determined by: Discussion with patient/ legal decision maker Code Status History Code Status Date Activated Date Inactivated Comments Full Code 08/19/2023 1:00 AM 08/19/2023 2:46 AM All b asic and advanced life-sustaining interventions are performed as appropriate Question Answer Comments Code status determined by: Discussion with patient/ legal decision maker Full Code 07/16/2023 12:19 AM 07/19/2023 3:54 PM Al l basic and advanced life-sustaining interventions are performed as appropriate Question Answer Comments Code status determined by: Unable to discuss and no AD/POLST on file; continue PREVIOUSLY ORDERED code status Full Code 03/27/2023 7:49 PM 03/30/2023 4:50 PM All bas ic and advanced life-sustaining interventions are performed as appropriate Question Answer Comments Code status determined by: Discussion with patient/ legal decision maker Full Code 03/25/2023 4:53 AM 03/26/2023 3:01 AM All ba sic and advanced life-sustaining interventions are performed as appropriate Question Answer Comments Code status determined by: Discussion with patient/ legal decision maker Care Teams Lining Inserter Relationship Specialty Start Date End Date No Ref-Primary, Physician PCP - General 03/25/23
--- OUTSIDE RECORDS SUMMARY | 2023-08-31 14:36 | XMS_ITS | Encounter Summary ---
Author Name Unknown Organization [facility] Address [address] [place] [address]. [place] [address] Care Team Providers Care Gun Striper Name Role Phone No Ref-Primary, Physician Primary Care Provider Reason for Referral * Home Health Therapies & Aides (Routine: Next available opening) - Pending Review Specialty Diagnoses / Procedures Referred By Conthowie acharya Referred To Contact Diagnoses Clostridioides difficile infection Liberty Morrow MD [address] [facility] [place] [address] Referral ID Status Reason Start Date Expiration Date V isits Requested Visits Authorized [id number] Pending Review 08/21/2023 08/20/2024 1 1 Question Answer Reason for Referral: Fpc, Physical Therapy Physical Therapy Eval and Treat for: Therapeutic Exercise Fpc Eval and Treat for: Disease management Additional Services Needed: Occupational Therapy Occupational Therapy Eval and Treat for: ADLs Is the patient homebound? Yes Homebound Status (describe the functional limitations that support this patient is confined to his/her home. Medicaid recipients are not required to be homebound.): Patient has difficulty ambulating >100 ft, Mental Health condition is exacerbated by exposure to crowds, unfamiliar environment or new stressful situations I attest that I saw or will see the patient on this date: 08/21/2023 Provider to follow patient NO REF-PRIMARY, PHYSICIAN [[id number]] Comments Your provider has ordered home health services. If you have not been contacted within 2 days of your discharge please call the selected Home Care agency listed on your Discharge document. If a Home Care agency is NOT listed, please call [phone]. OSITE ASSEMBLER Reason for Visit * Reason Comments Wound Infection * Auth/Cert (Routine) Specialty Diagnoses / Procedures Referred By Contac t Referred To Contact Med Surg Diagnoses Pancolitis (H) Intra-abdominal abscess (H) C. difficile colitis Pancolitis (H) Intra-abdominal abscess (H) C. difficile colitis Gen Surg [address] [place] [address] Referral ID Status Reason Start Date Expiration Date Visits Re quested Visits Authorized [id number] 1 1 Encounter Details Date Type Department Care Team (Late st Contact Info) Description 08/18/2023 9:47 PM COMPOSITE ASSEMBLER - 08/21/2023 1:51 PM COMPOSITE ASSEMBLER Hospital Encounter [facility] Surgery [address] [place] [address] Luisa Mendoza MD [facility] [address] [place] [address] Jun Leone MD [address] [facility] [place] [address] Clostridioides difficile infection (Primary Dx); Pancolitis (H); Intra-abdominal abscess (H); C. difficile colitis Discharge Disposition: Home-Health Care Svc Social History Tobacco Use Types Packs/Day Years Used Date Smoking Tobacco: Every Day Cigarettes Smokeless Tobacco: Never Alcohol Use Standard Drinks/Week Comments Not Currently 0 (1 standard drink = 0.6 oz pur e alcohol) Adolescent Education Answer Date Record ed Getting School Help Needed Not on file 04/17 Sex and Gender Information Value Date Recorded Sex Assigned at Not on file Gender Identity Not on file Sexual Orientation Not on file documented as of this encounter Last Filed Vital Signs Vital Sign Reading Time Taken Comments Blood Pressure 184/94 08/21/2023 11:03 AM COMPOSITE ASSEMBLER Pulse 74 08/21/2023 11:03 AM COMPOSITE ASSEMBLER Temperature 36.7 ??C (98 ??F) 08/21/2023 11:03 AM COMPOSITE ASSEMBLER Respiratory Rate 18 08/21/2023 11:03 AM COMPOSITE ASSEMBLER Oxygen Saturation 95% 08/21/2023 11:03 AM COMPOSITE ASSEMBLER Inhaled Oxygen Concentration - - Weight 73 kg (161 lb) 08/18/2023 7:03 PM COMPOSITE ASSEMBLER Height 170.2 cm (5' 7) 08/18/2023 7:03 PM COMPOSITE ASSEMBLER Body Mass Index 25.22 08/18/2023 7:03 PM COMPOSITE ASSEMBLER documented in this encounter Discharge Summaries * Liberty Morrow MD - 08/21/2023 11:35 AM CST Images from the original note were not included. [facility] Hospitalist Discharge Summary Date of Admission: 08/18/2023 Date of Discharge: 08/21/2023 Discharging Provider: Liberty Morrow MD Discharge Service: Hospitalist Service Discharge Diagnoses See difficile associated pancolitis/diarrhea Mild infectious encephalopathy, due to above, resolved history of diverticulitis with colonic absence CAD, S/P stent to circumflex 2004 Hypertension Hyperlipidemia COPD Tobacco use disorder Generalized anxiety disorder Lumbar stenosis Glaucoma Depression Severe malnutrition Hypokalemia Thrombocytopenia Clinically Significant Risk Factors # Overweight: Estimated body mass index is 25.22 kg/m?? as calculated from the following: Height as of this encounter: 1.702 m (5' 7). Weight as of this encounter: 73 kg (161 lb). # Severe Malnutrition: based on nutrition assessment Follow-ups Needed After Discharge Follow-up Appointments Follow-up and recommended labs and tests Follow up with primary care provider, Physician No Ref-Primary, within 7 days to evaluate medication change, for hospital follow- up, and regarding new diagnosis. No follow up labs or test are needed. Follow up with Dr. Steinberg (infectious disease MD) via virtual visit. Call [phone] for appointment. Follow up with Dr. Barba as instructed by her. Unresulted Labs Ordered in the Past 30 Days of this Admission No orders found from 07/19/2023 to 08/19/2023. Discharge Disposition Discharged to home with home health care Condition at discharge: Stable Hospital Course This is a 78-year-old male with history of anxiety, COPD, coronary disease status post PCI in the past, hypertension, hyperlipidemia, history of diverticulitis with pelvic abscess, history of recurrent C. difficile, he was scheduled to have sigmoid colectomy by colorectal surgery, but developed diar elliott and come to the hospital and found to have C. difficile again, CT scan shows pancolitis subsequently get admitted. Assessment & Plan C. difficile associated pancolitis/diarrhea Mild infection encephalopathy: Resolved Patient has recent history of pancolitis secondary to C. difficile, in June 2023. Recently developed diarrhea again, was on oral vancomycin, and was scheduled to have sigmoid colectomy 08/20 by colorectal surgery. Surgery was canceled due to recurrent C. difficile infection. ID consult requested, I appreciate Dr. Steinberg's evaluation and recommendations She agrees with Fidaxomicin 10-day course Also per Dr. Steinberg, do not recommend any additional systemic antibiotics for the small, stable abscesses given severe recurrent C. difficile. Symptoms already started to improve, and getting better at this time. Stools are more formed and less frequent. IV fluids discontinued 08/20 Continue regular diet Colorectal surgery consult requested, I appreciate Dr. Barba's evaluation and recommendations Per her, at this time, we need to treat his C. difficile infection and get this under control before surgery. History of diverticulitis with colonic abscess Incidentally found on lumbar MRI 02/2023. Not amenable to drainage. Has been on multiple courses of inpatient and outpatient antibiotics. CT a/p 07/15 w/ decrease in size of abscess. Plan is sigmoid colectomy. This was scheduled for 08/20 but surgery was postponed due to C. difficile infection. CAD s/p stenting Cx 2003 HTN HLD He is on aspirin, lisinopril and simvastatin we will continue with that. Blood pressure is reasonably controlled COPD Not in acute exacerbation, not use any inhalers and outpatient Tobacco use disorder Smokes 1/2-1 ppd nicoderm 21 mg patch encourage cessation/ cutting back MARISOL- Xanax 0.5 mg BID prn available Lumbar stenosis- prn analgesics available Glaucoma- resume home eye gtts Depression Patient family concerned about patient being depressed, requesting psych to be evaluated. Psychiatry consult requested, I appreciate Dr. Blevins's evaluation and recommendations Please see comments in her note,I do not recommend an antidepressant currently, and patient does not want one. She makes additional comments about the risks and benefits of various antidepressant medications patient could trial if he wants to begin antidepressants in the future Psychiatry signed off, okay to discharge from a psychiatric standpoint when medically clear. Severe malnutrition Appreciate input from the dietitian/vp compliance Ensure Enlive @ 10 am and 2 pm Hypokalemia Replace potassium per protocol Thrombocytopenia Mild, likely secondary to acute infection at this time. Will continue monitor Consultations This Hospital Stay COLORECTAL SURGERY IP CONSULT INFECTIOUS DISEASES IP CONSULT SMOKING CESSATION PROGRAM IP CONSULT PHYSICAL THERAPY ADULT IP CONSULT PHYSICAL THERAPY ADULT IP CONSULT PSYCHIATRY IP CONSULT CARE MANAGEMENT / SOCIAL WORK IP CONSULT Code Status Full Code Time Spent on this Encounter I, Liberty Morrow MD, personally saw the patient today and spent greater than 30 minutes discharging this patient. Liberty Morrow MD [address] [address] Physical Exam Vital Signs: Temp: 98 ??F (36.7 ??C) Temp src: Oral BP: (!) 184/94 Pulse: 74 Resp: 18 SpO2: 95 % [id number]: None (Room air) Weight: 161 lbs 0 oz I saw and examined the patient on the date of discharge. Primary Care Physician Physician No Ref-Primary Discharge Orders Home Care Referral Reason for your hospital stay You had diarrhea due to C diff infection. Follow-up and recommended labs and tests Follow up with primary care provider, Physician No Ref-Primary, within 7 days to evaluate medication change, for hospital follow- up, and regarding new diagnosis. No follow up labs or test are needed. Follow up with Dr. Steinberg (infectious disease MD) via virtual visit. Call [phone] for appointment. Follow up with Dr. Barba as instructed by her. Activity Your activity upon discharge: activity as tolerated Diet Follow this diet upon discharge: Orders Placed This Encounter Snacks/Supplements Adult: Ensure Enlive; Between Meals Regular Diet Adult Significant Results and Procedures Most Recent 3 CBC's: Recent Labs Lab Test 08/21/23 0742 08/20/23 0700 08/18/231910 WBC 8.9 9.5 17.1* HGB 13.0* 12.4* 12.8* MCV 89 90 91 PLT 136* 110* 117* Most Recent 3 BMP's: Recent Labs Lab Test 08/21/23 0742 08/20/232 08/20/23 0700 08/18/231910 NA 136 -- 137 140 POTASSIUM 3.3* 3.6 3.1* 3.8 CHLORIDE 100 -- 102 104 CO2 -- 27 25 BUN 6.9* -- 6.4* 16.8 CR 0.70 -- 0.71 0.80 ANIONGAP 11 -- 8 11 ALEIDA 8.8 -- 8.5* 9.0 GLC 98 -- 88 82 7-Day Micro Results Collected Updated Procedure Result Status 08/18/2023 23408/19/2023 0502 C. difficile Toxin B PCR with reflex to C. difficile Antigen and Toxins A/B EIA [[id number]] (Abnormal) Stool from Per Rectum Final result Component Value C Difficile Toxin B by PCR Positive Detection of C. difficile nucleic acid in [...] PCR result will receive reflex GDH/Toxin Immunoassay testing.Please interpret the PCR test result in conjunction with GDH/Toxin Immunoassay results and the clinical status of patient. 08/18/2023 2341 08/19/2023 0600 C. difficile Antigen and Toxins A/B by Enzyme Immunoassay [[id number]] (Abnormal) Stool from Per Rectum Final result Component Value C. difficile GDH Antigen Positive C. difficile Toxin Positive , Results for orders placed or performed during the hospital encounter of 08/18/23 CT Abdomen Pelvis w/o & w Contrast Narrative EXAM: CT ABDOMEN PELVIS W/O and W CONTRAST LOCATION: [facility] DATE: 08/18/2023 INDICATION: Diarrhea. Concern for [...] do not require follow-up. Vascular calcifications at theright renal hilum. No urinary calculi or hydronephrosis. [...] left at L5-S1. No acute bony abnormality. Impression IMPRESSION: 1. Pancolitis, likely infectious or inflammatory. [...] abscess. 4. Possible cystitis. Correlate with urinalysis. Discharge Medications Current Discharge Medication List START taking these medications Details fidaxomicin (DIFICID) 200 MG tablet Take 1 tablet (200 mg) by mouth 2 times daily for 9 days Qty: 18 tablet, Refills: 0 Associated Diagnoses: Clostridioides difficile infection CONTINUE these medications which have NOT CHANGED Details acetaminophen (TYLENOL) 325 MG tablet Take 2 tablets (650 mg) by mouth every 6 hours as needed for mild pain Maximum of 4,000 mg of acetaminophen in any 24 hour period. Associated Diagnoses: Intra-abdominal abscess (H) ALPRAZolam (XANAX) 0.5 MG tablet Take 0.5 mg by mouth 2 times daily as needed for anxiety Ascorbic Acid (VITAMIN C) 500 MG CAPS Take 500 mg by mouth every other day aspirin (ASA) 325 MG EC tablet Take 325 mg by mouth daily cholecalciferol (VITAMIN D3) 125 mcg (5000 units) capsule Take 125 mcg by mouth daily ibuprofen (ADVIL/MOTRIN) 200 MG tablet Take 600-800 mg by mouth every 6 hours as needed for pain lactobacillus rhamnosus, GG, (CULTURELL) capsule Take 1 capsule by mouth daily latanoprost (XALATAN) 0.005 % ophthalmic solution Place 1 drop into both eyes every 3 days lisinopril (ZESTRIL) 20 MG tablet Take 20 mg by mouth at bedtime multivitamin w/minerals (MULTI-VITAMIN) tablet Take 1 tablet by mouth daily nicotine (NICODERM CQ) 21 MG/24HR [address] 1 patch onto the skin daily as needed for smoking cessation nitroGLYcerin (NITROSTAT) 0.[address] 0.4 mg under the tongue every 5 minutes asneeded for chest pain simvastatin (ZOCOR) 20 MG tablet Take 20 mg by mouth At Bedtime traMADol (ULTRAM) 50 MG tablet TAKE ONE OR TWO TABLETS BY MOUTH EVERY SIX HOURS NEEDED FOR PAIN* STOP taking these medications multivitamin w/minerals (MULTI-VITAMIN) tablet Comments: Reason for Stopping: Allergies No Known Allergies OSITE ASSEMBLER documented in this encounter Discharge Instructions * Discharge Instructions* Ivette Huffman LSW - 08/20/2023 3:20 PM COMPOSITE ASSEMBLER Images from the original note were not included. Some additional resources: Web: https://[employer].org/ [employer] Your [employer] is a nonprofit serving seniors and individuals with disabilities across [place]???[facility]. Our grocery assistance, home support and transportation services provide help with in-home tasks and chores. Meals on Wheels [facility] call Web: [email or web address].org/services/ If your family would like extra support, here is one great resource: Care[employer]iver [employer] call 761-667-RRMH(4474) Customer service hours: Wednesday - Wednesday, 9 a.m. - 7 p.m. Other resources: https://zbqyo-lh-uantlhFloqq/get-meals/ Meals on Wheels Getting started with Meals on Wheels is easy. Either give us a call at [phone] or complete your order right here! [employer]- [phone], or [employer]- [phone] [place] [id number] OSITE ASSEMBLER documented in this encounter Medications at Time of Discharge Medication Sig Dispensed Refills Start Date End Date acetaminophen (TYLENOL) 325 MG tabletIndications:In tra-abdominal abscess (H) Take 2 tablets (650 mg) by mouth every 6 hours as needed for mild pain Maximum of 4,000 mg of acetaminophen in any 24 hour period. 0 03/30/2023 ALPRAZolam (XANAX) 0.5 MG tablet Take 0.5 mg by mouth 2 times daily as needed for anxiety 0 Ascorbic Acid (VITAMIN C) 500 MG CAPS Take 500 mg by mouth every other day 0 aspirin (ASA) 325 MG EC tablet Take 325 mg by mouth daily 0 cholecalciferol (VITAMIN D3) 125 mcg (5000 units) capsule Take 125 mcg by mouth daily 0 ibuprofen (ADVIL/MOTRIN) 200 MG tablet Take 600-800 mg by mouth every 6 hours as needed for pain 0 lactobacillus rhamnosus, GG, (CULTURELL) capsule Take 1 capsule by mouth daily 0 latanoprost (XALATAN) 0.005 % ophthalmic solution Place 1 drop into both eyes every 3 days 0 lisinopril (ZESTRIL) 20 MG tablet Take 20 mg by mouth at bedtime 0 multivitamin w/minerals (MULTI-VITAMIN) tablet Take 1 tablet by mouth daily 0 nicotine (NICODERM CQ) 21 MG/24HR [address] 1 patch onto the skin daily as needed for smoking cessation 0 nitroGLYcerin (NITROSTAT) 0.[address] 0.4 mg under the tongue every 5 minutes as needed for chest pain 0 08/05/2022 simvastatin (ZOCOR) 20 MG tablet Take 20 mg by mouth At Bedtime 0 traMADol (ULTRAM) 50 MG tablet TAKE ONE OR TWO TABLETS BY MOUTH EVERY SIX HOURS NEEDED FOR PAIN* 0 fidaxomicin (DIFICID) 200 MG tabletIndications:Cl ostridioides difficile Take 1 tablet (200 mg) by mouth 2 times daily for 9 days 18 tablet 0 08/20/2023 08/29/2023 documented as of this encounter Progress Notes * Keri Piedra RN - 08/21/2023 9:56 AM CST Care Management Discharge Note Discharge Date: 08/21/2023 Discharge Disposition: Home Discharge Services: home Care Discharge DME: Discharge Transportation: family or friend will provide Private pay costs discussed: Not applicable Does the patient's insurance plan have a 3 day qualifying hospital stay waiver? No PAS Confirmation Code: Patient/family educated on Medicare website which has current facility and service quality ratings: Education Provided on the Discharge Plan: Persons Notified of Discharge Plans: Patient/Family in Agreement with the Plan: Handoff Referral Completed: Yes Additional Information: When medically ready to discharge, patient will go home with Home RN, PT, OT through [facility]. Please reconsult care management if new discharge needs arise. 1140 discharge orders faxed via DOD to [facility]. Roll Coating Machine Operator called intake to alert them of discharge today. Keri Peralta RN [facility] , [facility] or [phone] OSITE ASSEMBLER * Rakesh Ross PT - 08/20/2023 12:01 PM CST 08/20/23 1053 Appointment Info Signing Clinician's Name / Credentials (PT) Rakesh Ross, PT, DPT Living Environment People in Home spouse Current Living Arrangements house (one level [facility]) Home Accessibility stairs to enter home (threshold to enter house in front) Number of Stairs, Main Entrance 1 Stair Railings, Main Entrance none Transportation Anticipated family or friend will provide Living Environment Comments Patient lives in house with spouse, one step/threshold to enter house. One level house, all needs on main level. Self-Care Usual Activity Tolerance moderate Current Activity Tolerance fair Equipment Currently Used at Home cane, straight;walker, rolling Fall history within last six months yes Number of times patient has fallen within last six months 5 (per family, ~5 times) Activity/Exercise/Self-Care Comment Patient IND with mobility and cares at baseline, using General Information Onset of Illness/Injury or Date of Surgery 08/18/23 Referring Physician Jun Leone MD Patient/Family Therapy Goals Statement (PT) Patient would like to go home Pertinent History of Current Problem (include personal factors and/or comorbidities that impact thePOC) 78-year-old male with history of anxiety, COPD, coronary disease status post PCI in the past, hypertension, hyperlipidemia, history of diverticulitis with pelvic abscess, history of recurrent C.difficile, he was scheduled to have sigmoid colectomy by colorectal surgery, but developed diarrheaand come to the hospital and found to have C. difficile again, CT scan shows pancolitis subsequently get admitted. Existing Precautions/Restrictions fall General Observations current smoker. Cognition Affect/Mental Status (Cognition) WFL Orientation Status (Cognition) oriented x 4 Follows Commands (Cognition) WFL Cognitive Status Comments Difficulty with remembering year. Pain Assessment Patient Currently in Pain Yes, see Vital Sign flowsheet Strength (Manual Muscle Testing) Strength (Manual Muscle Testing) Able to perform R SLR;Able to perform L SLR Bed Mobility Comment, (Bed Mobility) supine<>sit with supervision, HOB elevated, and use of bedrail. Transfers Comment, (Transfers) sit<>stand transfers with SBA and FWW Gait/Stairs (Locomotion) Distance in Feet (Gait) 5' Comment, (Gait/Stairs) ambulation with FWW and CGA Balance Balance Comments impaired balance requiring BUE support on FWW at all times Sensory Examination Sensory Perception Comments no deficits noted. Clinical Impression Criteria for Skilled Therapeutic Intervention Yes, treatment indicated PT Diagnosis (PT) impaired mobility Influenced by the following impairments weakness, reduced activity tolerance, impaired balance Functional limitations due to impairments impaired functional mobility, impaired gait, transfers, stair navigation Clinical Presentation (PT Evaluation Complexity) stable Clinical Presentation Rationale clinical judgement Clinical Decision Making (Complexity) low complexity Planned Therapy Interventions (PT) balance training;bed mobility training;gait training;neuromuscular re-education;patient/family education;stair training;strengthening;transfer training;progressive activity/exercise Risk & Benefits of therapy have been explained evaluation/treatment results reviewed;care plan/treatment goals reviewed;risks/benefits reviewed;current/potential barriers reviewed;participants voiced agreement with care plan;participants included;patient;spouse/significant other;sibling PT Total Evaluation Time PT Eval, Low Complexity Minutes (06448) 8 Physical Therapy Goals PT Frequency Daily PT Predicted Duration/Target Date for Goal Attainment 08/25/23 PT Goals Bed Mobility;Transfers;Gait;Stairs PT: Bed Mobility Modified independent;Supine to/from sit PT: Transfers Modified independent;Sit to/from stand;Assistive device PT: Gait Modified independent;Rolling walker;Greater than 200 feet PT: Stairs Modified independent;1 stair Interventions Interventions Quick Adds Gait Training;Therapeutic Activity Therapeutic Activity Therapeutic Activities: dynamic activities to improve functional performance Minutes (83954) 18 Symptoms Noted During/After Treatment Fatigue Treatment Detail/Skilled Intervention Patient supine in bed at beginning of session with family present, agreeable to participate in PT. Performing supine<>sit transfers during session with supervision, HOB elevated, and use of bedrail. Patient performing several sit<>stands with SBA and FWW, cues for hand placement. Patient requesting use of restroom x2 during session, extra time need ed. Performing sit<>stands from toilet with supervision-SBA, unilateral grab bar, and FWW. Patient leaving walker outside of bathroom, cues to utilize assistive device when walking into bathroom for improved stability, close CGA provided when ambulating into bathroom with no AD. Patient seated at EOB with MD at end of session, all needs within reach. Gait Training Gait Training Minutes (40913) 14 Symptoms Noted During/After Treatment (Gait Training) fatigue Treatment Detail/Skilled Intervention Patient completing bout of ambulation for 150' with FWW and CGA, progressing to close SBA. Cues for upright posture and walker in closer proximity to body. Cues for keeping feet inside walker with turns. Decreased step length and gait velocity noted, cuess for increased foot clearance while ambulating. Patient completing bout of stair navigation x4 steps withbilateral handrails and CGA. Cues for sequencing, utilized reciprocal pattern while ascending and step to while descending. No overt LOB throughout. Near end of session, patient standing up from EOB and attempting to walk to bathroom impulsively. Cues and assist for pausing as patient leaving IV pole nehind and attempting to walk into bathroom. Some cognitive concerns during session, defer to OT for further assessment. Distance in Feet 150', 4 stairs, 20' PT Discharge Planning PT Plan progress ambulation distance, repeated sit<>stands, standing balance, LE exercises, stair training as needed PT Discharge Recommendation (DC Rec) home with assist;home with home care physical therapy PT Rationale for DC Rec Patient below baseline functional mobility. Presents with deficits in strength, balance, and activity tolerance resulting in need for CGA and FWW to safely mobilize. Lives in accesssible house with supportive spouse. May benefit from further cognitive assessment, defer to OT. Recommend discharge home with initial supervision and assist for mobility and cares from spouse. Use of FWW for all mobility. Recommend HH PT for improvement of strength, activity tolerance, balance, and safety/independence with functional mobility. HH OT for home safety evaluation and cognition. PT Brief overview of current status SBA-CGA for mobility with FWW Total Session Time Timed Code Treatment Minutes 32 Total Session Time (sum of timed and untimed services) 40 OSITE ASSEMBLER * Chris Marie MD - 08/20/2023 11:28 AM CST [facility] Hospitalist Progress Note Brief Summary: This is a 78-year-old male with history of anxiety, COPD, coronary disease status post PCI in the past, hypertension, hyperlipidemia, history of diverticulitis with pelvic abscess, history of recurrent C. difficile, he was scheduled to have sigmoid colectomy by colorectal surgery, but developed diar elliott and come to the hospital and found to have C. difficile again, CT scan shows pancolitis subsequently get admitted. Assessment & Plan C. difficile associated pancolitis/diarrhea Mild infection encephalopathy: Resolved Patient has recent history of pancolitis secondary to C. difficile, in June 2023. Recently developed diarrhea again, was on oral vancomycin, and scheduled to have sigmoid colectomy tomorrow by colorectal surgery. Because of worsening diarrhea he come to the hospital and found to have recurrent C. difficile. He is started on Dificid/fidaxomicin 200 mg twice daily, I agree with that we will continue for 10 days. ID consulted and agree with that. Symptoms already started to improve, and getting better at this time. Stools are more formed and less frequent. He is on IV fluids at 100 ML per hour, I will discontinue IV fluids today. Encouraged him to eat more, he is on regular diet. I will discontinue his IV Flagyl, continue with Dificid 200 mg twice daily at this time Recommend him to be more active today, ambulate few times, eat better, and discontinue IV fluids. If he tolerates oral diet well, diarrhea continue to improve, he will be able to discharge home tomorrow with oral Dificid. History of diverticulitis with colonic abscess Incidentally found on lumbar MRI 02/2023. Not amenable to drainage. Has been on multiple courses of inpatient and outpatient antibiotics. CT a/p 07/15 w/ decrease in size of abscess. - CRS already has plan to do the surgery,, but is now postponed giving current C. difficile infection. Appreciate input from the colorectal surgery No need for any antibiotics as per infectious disease which I agree. CAD s/p stenting Cx 2003 HTN HLD -He is on aspirin, lisinopril and simvastatin we will continue with that. Blood pressure is reasonably controlled COPD Not in acute exacerbation, not use any inhalers and outpatient Tobacco use disorder Smokes 1/2-1 ppd - nicoderm 21 mg patch - encourage cessation/ cutting back MARISOL- Xanax 0.5 mg BID prn available Lumbar stenosis- prn analgesics available Glaucoma- resume home eye gtts with rec Depression Patient family concerned about patient being depressed, requesting psych to be evaluated. I will I will consult psych to evaluate him for underlying depression Severe malnutrition Appreciate input from the dietitian/vp compliance Ensure Enlive @ 10 am and 2 pm Hypokalemia Will start him on replacement protocol. Thrombocytopenia Mild, likely secondary to acute infection at this time. Will continue monitor DVT Prophylaxis: Pneumatic Compression Devices Code Status: Full Code Disposition: Expected discharge tomorrow if remains stable. Chris Marie MD, Text Page (7am - 6pm) Interval History Patient feeling much better this morning, he says that his diarrhea is improved, his stools are much more formed as compared to before. He never have any pain, he denies any fever chills nausea vomiting dizziness or lightheadedness. He did not eat much yesterday, planning to have more food today No other significant event overnight -Data reviewed today: I reviewed all new labs and imaging results over the last 24 hours. I personally reviewed no images or EKG's today. Physical Exam Temp: 97.9 ??F (36.6 ??C) Temp src: Oral BP: (!) 154/88 Pulse: 76 Resp: 18 SpO2: 96 % O2 Device: None (Room air) Vitals: 08/18/231902 Weight: 73 kg (161 lb) Vital Signs with Ranges Temp: [97.6 ??F (36.4 ??C)-98.1 ??F (36.7 ??C)] 97.9 ??F (36.6 ??C) Pulse: [76-89] 76 Resp: [18] 18 BP: (131-164)/(53-88) 154/88 SpO2: [94 %-96 %] 96 % I/O last 3 completed shifts: In: 2019 [I.V.:2019] Out: 1899 [Urine:1900] Constitutional: awake, alert, cooperative, no apparent distress, and appears stated age Eyes: Lids and lashes normal, pupils equal, round and reactive to light, extra ocular muscles intact, sclera clear, conjunctiva normal Respiratory: No increased work of breathing, good air exchange, clear to auscultation bilaterally, no crackles or wheezing Cardiovascular: Normal apical impulse, regular rate and rhythm, normal S1 and S2, no S3 or S4, and no murmur noted GI: No scars, normal bowel sounds, soft, non-distended, non-tender, no masses palpated, no hepatosplenomegally Musculoskeletal: no lower extremity pitting edema present Neurologic: No focal deficit Medications fidaxomicin 200 mg Oral BID latanoprost 1 drop Both Eyes QPM lisinopril 20 mg Oral Daily multivitamin w/minerals 1 tablet Oral Q24H nicotine 1 patch Transdermal Daily nicotine Transdermal Q8H simvastatin 20 mg Oral At Bedtime sodium chloride (PF) 3 mL Intracatheter Q8H Data Recent Labs Lab 08/20/23 0700 08/18/23 1911 WBC 9.5 17.1* HGB 12.4* 12.8* MCV 90 91 PLT 110* 117* NA 137 140 POTASSIUM 3.1* 3.8 CHLORIDE 102 104 CO2 27 25 BUN 6.4* 16.8 CR 0.71 0.80 ANIONGAP 8 11 ALEIDA 8.5* 9.0 GLC 88 82 ALBUMIN -- 3.5 PROTTOTAL -- 6.7 BILITOTAL -- 0.5 ALKPHOS -- 86 ALT -- 22 AST -- 23 No results found for this or any previous visit (from the past 24 hour(s)). OSITE ASSEMBLER * Sybil Steinberg MD - 08/20/2023 10:19 AM CST [facility] Infectious Disease Progress Note Date of Service (when I saw the patient): 08/20/2023 Assessment & Plan Theodore Wu is a 78 year old who was admitted on 08/18/2023. 78 yo with PMH of hypertension, CAD s/p CABG, current smoker c/b COPD Long standing history of intra-abdominal abscess incidentally [facility]. [facility] was noted that this abscess would not amenable to IR drainage due to location. He signed out AGAINST MEDICAL ADVICE at that time. He also has history of chronic low back pain with finding of lumbar stenosis and has been seen by neurosurgery. He was admitted to [facility] from 03/27 - 03/30/23 with acute sigmoid diverticulitis with associatedpelvic abscess. He was seen by colorectal surgery. He was seen by IR and once again did not have access to safely put a percutaneous drain. It was decided that he will be treated with antibiotics with repeat scans and outpatient follow-up with colorectal surgery. Patient known to me from recent admission for c diff colitis. CT of the abdomen pelvis showed interval decrease in the peridiverticular abscess now measuring 2.2 x 2 cm. There is evidence of pancolitis. Prominent loops of nondilated fluid-filled small bowel in the left lower quadrant noted this reflected isolated ileus versus early small bowel obstruction. Now again admitted with diarrhea, tested positive for C diff Repeat CT: Fluid and gas containing pelvic abscess at the level of L5-S1 has decreased in size since 03/28/2023, now measuring up to 2.2 cm. A small bowel loop and the sigmoid colon are tethered by scar tissue to the abscess, without a definite clear communication with the bowel lumen Started on fidaxomicin Recommendations; Agree with Fidaxomicin 10 day course Diarrhea slightly better than at home Do not recommend any additional systemic antibiotics for the small stable abscesses given severe recurrent C diff Timing of surgery per surgery Patient encouraged to do a virtual follow up with ID in 2 weeks ( [place] ) call soonerif issues Discussed plan with , brother, sister in law in the room of note family feels he is not ready for discharge Sybil Steinberg MD Interval History Tolerating antibiotics ok No new rashes or issues with antibiotics Labs reviewed No changes to past medical, social or family history Still some diarrhea but not every 2 hours WBCIs better Physical Exam Temp: 97.9 ??F (36.6 ??C) Temp src: Oral BP: (!) 154/88 Pulse: 76 Resp: 18 SpO2: 96 % O2 Device: None (Room air) Vitals: 08/18/231902 Weight: 73 kg (161 lb) Vital Signs with Ranges Temp: [97.6 ??F (36.4 ??C)-98.1 ??F (36.7 ??C)] 97.9 ??F (36.6 ??C) Pulse: [76-89] 76 Resp: [18] 18 BP: (131-164)/(53-88) 154/88 SpO2: [94 %-96 %] 96 % Constitutional: Awake, alert, cooperative, no apparent distress Lungs: Clear to auscultation bilaterally, no crackles or wheezing Cardiovascular: Regular rate and rhythm, normal S1 and S2, and no murmur noted Abdomen: Normal bowel sounds, soft, non-distended, non-tender Skin: No rashes, no cyanosis, no edema Other: Medications sodium chloride 100 mL/hr at 08/19/23 1248 fidaxomicin 200 mg Oral BID latanoprost 1 drop Both Eyes QPM lisinopril 20 mg Oral Daily metroNIDAZOLE 500 mg Intravenous Q8H multivitamin w/minerals 1 tablet Oral Q24H nicotine 1 patch Transdermal Daily nicotine Transdermal Q8H simvastatin 20 mg Oral At Bedtime sodium chloride (PF) 3 mL Intracatheter Q8H Data All microbiology laboratory data reviewed. Recent Labs Lab Test 08/20/23 0708/18/23191007/19/23 0613 WBC 9.5 17.1* 7.4 HGB 12.4* 12.8* 11.1* HCT 36.5* 38.2* 33.9* MCV 90 91 91 PLT 110* 117* 256 Recent Labs Lab Test 08/20/23 0708/18/23191007/19/23 0613 CR 0.71 0.80 0.69 No lab results found. No lab results found. Invalid input(s): UC All cultures: No results for input(s): CULTURE in the last 168 hours. Blood culture: Results for orders placed or performed during the hospital encounter of 03/27/23 Blood Culture Peripheral Blood Specimen: Peripheral Blood Result Value Ref Range Culture No Growth Blood Culture Peripheral Blood Specimen: Peripheral Blood Result Value Ref Range Culture No Growth Urine culture: No results found for this or any previous visit. OSITE ASSEMBLER * Ivette Huffman, AIRPLANE FLIGHT ATTENDANT SUPERVISOR - 08/20/2023 10:14 AM CST Care Management Follow Up Length of Stay (days): 2 Expected Discharge Date: 08/21/2023 Concerns to be Addressed: Patient plan of care discussed at interdisciplinary rounds: Yes Anticipated Discharge Disposition: Anticipated Discharge Services: Anticipated Discharge DME: Patient/family educated on Medicare website which has current facility and service quality ratings: Education Provided on the Discharge Plan: Patient/Family in Agreement with the Plan: Referrals Placed by CM/SW: Private pay costs discussed: Not applicable Additional Information: Roll Coating Machine Operator approached by patients family and friends to discuss patient discharge plan. Cynthia, patients spouse, Shelby a family friend [phone]. And Arle, patiens brother. Family reported ever since patients C - diff diagnosis he has been very depressed hardly able to walk, falling a lot and generally feeling hopeless and he was unable to get the surgery he needs andis feeling overwhelmed about possibly being in pain for several more months. Family was asking for assistance with possible TCU placement or home care. Roll Coating Machine Operator assured family that we could assist with discharge planning and would wait to see assessments from PT and OT. Roll Coating Machine Operator also explained that patient is his own decision maker and director underwriter sales would not be able to talk patient into doing something he did not agree to do. (Family keeps mentioning patient is stubborn, grumpy and mean) Shelby and Bruce had concerns about the way patient treats his spouse, no indication of abuse, just that Cynthia is tired and overwhelmed. Roll Coating Machine Operator provided Cynthia with resources and encouraged her to call the senior linkage line and connect with her PCP for assistance. Roll Coating Machine Operator asking doctor for a psych consult for patient and will do a consult for discharge planning. LISS Arevalo OSITE ASSEMBLER * Carlyn Barba MD - 08/20/2023 9:17 AM CST Images from the original note were not included. COLON & RECTAL SURGERY PROGRESS NOTE August 20, 2023 SUBJECTIVE: Pain improved. Controlled with tramadol and tylenol. Had a few loose stools since last evening. Tolerating diet, but states he has not had much to eat. Tolerated oatmeal, hot chocolate yesterday. Mildly nauseous currently, denies emesis. States he is at the end of his rope due to troubles at home. WBC 9.5 from 17.1 yesterday. AVSS. OBJECTIVE: Temp: [97.6 ??F (36.4 ??C)-98.1 ??F (36.7 ??C)] 97.9 ??F (36.6 ??C) Pulse: [76-89] 76 Resp: [18] 18 BP: (131-164)/(53-88) 154/88 SpO2: [94 %-96 %] 96 % Intake/Output Summary (Last 24 hours) at 08/20/2023 0917 Last data filed at 08/20/2023 0744 Gross per 24 hour Intake 2019 ml Output 2100 ml Net -80 ml GENERAL: Awake, alert, no acute distress, lying in bed HEAD: Nomocephalic atraumatic SCLERA: anicteric EXTREMITIES: warm and well perfused ABDOMEN: Soft, non tender, non-distended, no rebound or guarding, no peritoneal signs LABS: Lab Results Component Value Date WBC 9.5 08/20/2023 Lab Results Component Value Date HGB 12.4 08/20/2023 Lab Results Component Value Date HCT 36.5 08/20/2023 Lab Results Component Value Date PLT 110 08/20/2023 Last Basic Metabolic Panel: Lab Results Component Value Date NA 137 08/20/2023 Lab Results Component Value Date POTASSIUM 3.1 08/20/2023 Lab Results Component Value Date CHLORIDE 102 08/20/2023 Lab Results Component Value Date ALEIDA 8.5 08/20/2023 Lab Results Component Value Date CO2 27 08/20/2023 Lab Results Component Value Date BUN 6.4 08/20/2023 Lab Results Component Value Date CR 0.71 08/20/2023 Lab Results Component Value Date GLC 88 08/20/2023 ASSESSMENT/PLAN: Theodore Wu is a 78-year-old male with multiple comorbidities and history of diverticulitis with persistent pelvic abscess and C. Difficile colitis admitted on 08/18/23 with recurrent C. Difficile colitis. He was scheduled for surgery on 08/20/23 which was cancelled due to recurrent C. Difficile infection. -Regular diet as tolerated -Continue antibiotics. Appreciate ID recs. -Encourage ambulation -Pain management, minimize narcotics -PRN Zofran for nausea For questions/paging, please contact the CRS office at [phone]. Galen Moffett PA-C [facility] Rectal Surgery Staff I performed a history and physical examination of the patient and discussed their management with the physician certified ophthalmic surgical assistant. I reviewed the physician assistants note and agree with the documented findings and plan of care. Feeling better, stools firming up, leukocytosis resolved. Family and family friend at bedside. Discussed will need to recover from c. Diff colitis before abdominal surgery. Would recommend close follow-up with PCP, ID and myself after discharge. Defer ABx management and other medication management to hospitalist and ID. Will have patient follow-up with me in clinic in 2-3 weeks with repeat imaging to discuss surgery in the future. Maddi Barba MD, FACS, FASCRS [facility] [address] [place] [address] T: [phone] F: [phone] OSITE ASSEMBLER * Brandi Matthews RN - 08/19/2023 4:21 PM CST Images from the original note were not included. Surgery/POD#: Cdiff colitis, pelvic abscess Orientation: A&Ox4 ABNL VS/O2: VSS on RA ABNL Labs: WBC 17.1 Pain Management: PRN Tramadol Bowel/Bladder: Voiding adequately in urinal. No BM since transfer from ED. Drains: PIV infusing NS at 100 ml/hr Diet: Regular Activity Level: SBA Tests/Procedures: ID & colorectal consults Anticipated DC Date: pending Significant Information: Blanchable redness to perineum & coccyx. Enteric precautions maintained. OSITE ASSEMBLER * Chris Marie MD - 08/19/2023 1:00 PM CST [facility] Hospitalist Progress Note Brief Summary: This is a 78-year-old male with history of anxiety, COPD, coronary disease status post PCI in the past, hypertension, hyperlipidemia, history of diverticulitis with pelvic abscess, history of recurrent C. difficile, he was scheduled to have sigmoid colectomy by colorectal surgery, but developed diar elliott and come to the hospital and found to have C. difficile again, CT scan shows pancolitis subsequently get admitted. Assessment & Plan C. difficile associated pancolitis/diarrhea Mild infection encephalopathy: Improved Patient has recent history of pancolitis secondary to C. difficile, in June 2023. Recently developed diarrhea again, was on oral vancomycin, and scheduled to have sigmoid colectomy tomorrow by colorectal surgery. Because of worsening diarrhea he come to the hospital and found to have recurrent C. difficile. He is started on Dificid/fidaxomicin 200 mg twice daily, I agree with that we will continue for 10 days. ID consulted and agree with that. Symptoms already started to improve, of only 1 or 2 bowel movements overnight and feeling better. He is on IV fluids at 100 mm/h we will continue with that. His diet is advanced to regular diet at this time. He was started on IV Flagyl as well, which I do not think is needed. If ID okay we can discontinue Flagyl. History of diverticulitis with colonic abscess Incidentally found on lumbar MRI 02/2023. Not amenable to drainage. Has been on multiple courses of inpatient and outpatient antibiotics. CT a/p 07/15 w/ decrease in size of abscess. - CRS already has plan to do the surgery tomorrow, but is postponed giving current C. difficile infection. Appreciate input from the colorectal surgery CAD s/p stenting Cx 2003 HTN HLD -He is on aspirin, lisinopril and simvastatin we will continue with that. Blood pressure is reasonably controlled COPD Not in acute exacerbation, not use any inhalers and outpatient Tobacco use disorder Smokes 1/2-1 ppd - nicoderm 21 mg patch - encourage cessation/ cutting back MARISOL- Xanax 0.5 mg BID prn available Lumbar stenosis- prn analgesics available Glaucoma- resume home eye gtts with rec DVT Prophylaxis: Pneumatic Compression Devices Code Status: Full Code Disposition: Expected discharge in 2 to 3 days once diarrhea improving remains stable Chris Marie MD, MD Text Page (7am - 6pm) Interval History Patient seen and evaluated in his room today, feeling better, diarrhea is already improving. No fever chills headache dizziness lightheadedness. Denies any pain, have 2 BM overnight. No other significant event overnight -Data reviewed today: I reviewed all new labs and imaging results over the last 24 hours. I personally reviewed no images or EKG's today. Physical Exam Temp: 97.3 ??F (36.3 ??C) Temp src: Oral BP: (!) 158/69 Pulse: 97 Resp: 18 SpO2: 93 % O2 Device: None (Room air) Vitals: 08/18/23 1903 Weight: 73 kg (161 lb) Vital Signs with Ranges Temp: [97.3 ??F (36.3 ??C)-98.3 ??F (36.8 ??C)] 97.3 ??F (36.3 ??C) Pulse: [72-97] 97 Resp: [18-20] 18 BP: (136-158)/(59-69) 158/69 SpO2: [93 %-97 %] 93 % I/O last 3 completed shifts: In: 624 [P.O.:120; I.V.:504] Out: 200 [Urine:200] Constitutional: awake, alert, cooperative, no apparent distress, and appears stated age Eyes: Lids and lashes normal, pupils equal, round and reactive to light, extra ocular muscles intact, sclera clear, conjunctiva normal Respiratory: No increased work of breathing, good air exchange, clear to auscultation bilaterally, no crackles or wheezing Cardiovascular: Normal apical impulse, regular rate and rhythm, normal S1 and S2, no S3 or S4, and no murmur noted GI: No scars, normal bowel sounds, soft, non-distended, non-tender, no masses palpated, no hepatosplenomegally Musculoskeletal: no lower extremity pitting edema present Neurologic: No focal deficit Medications sodium chloride 100 mL/hr at 08/19/23 1248 fidaxomicin 200 mg Oral BID latanoprost 1 drop Both Eyes QPM lisinopril 20 mg Oral Daily metroNIDAZOLE 500 mg Intravenous Q8H multivitamin w/minerals 1 tablet Oral Q24H nicotine 1 patch Transdermal Daily nicotine Transdermal Q8H simvastatin 20 mg Oral At Bedtime sodium chloride (PF) 3 mL Intracatheter Q8H Data Recent Labs Lab 08/18/23 1911 WBC 17.1* HGB 12.8* MCV 91 PLT 117* NA 140 POTASSIUM 3.8 CHLORIDE 104 CO2 25 BUN 16.8 CR 0.80 ANIONGAP 11 ALEIDA 9.0 GLC 82 ALBUMIN 3.5 PROTTOTAL 6.7 BILITOTAL 0.5 ALKPHOS 86 ALT 22 AST 23 Recent Results (from the past 24 hour(s)) CT Abdomen Pelvis w/o & w Contrast Narrative EXAM: CT ABDOMEN PELVIS W/O and W CONTRAST LOCATION: [facility] DATE: 08/18/2023 INDICATION: Diarrhea. Concern for [...] do not require follow-up. Vascular calcifications at theright renal hilum. No urinary calculi or hydronephrosis. [...] left at L5-S1. No acute bony abnormality. Impression IMPRESSION: 1. Pancolitis, likely infectious or inflammatory. [...] abscess. 4. Possible cystitis. Correlate with urinalysis. OSITE ASSEMBLER * Clarice Castellano - 08/19/2023 9:40 AM CST CLINICAL NUTRITION SERVICES - ASSESSMENT NOTE Recommendations Ordered by Registered Dietitian (RD): Ordered chocolate Ensure Enlive @ [address] am [address] introduced self to pt, discussed role in care. Discussed having them scheduled between meals andpt to continue ordering 3 meals/day. Try to consume what he can and supplement with Ensure between meals Malnutrition: % Weight Loss: > 5% in 1 month (severe malnutrition)-- 5% loss w/in 1 month % Intake: <75% for >/= 3 months (moderate malnutrition)-- suspected based on recent clinical course and d/w pt Subcutaneous Fat Loss: Orbital region moderate depletion and Upper arm region moderate depletion Muscle Loss: Temporal region mild depletion and Clavicle bone region moderate depletion Fluid Retention: None noted Malnutrition Diagnosis: Severe malnutrition in the context of -- Acute illness or injury Chronic illness or disease REASON FOR ASSESSMENT Theodore Wu is a 78 year old male seen by Registered Dietitian for Admission Nutrition Risk Screen for positive. Recent wt loss of 14-23# w/ decreased appetite reported. NUTRITION HISTORY Information obtained from chart review and d/w pt PMH of HTN, HLD, Anemia, MARISOL, COPD, CAD s/p stenting (2003), Hx of diverticular abscess, Tobacco use disorder, Lumbar stenosis, Glaucoma Admitted to [facility] for Acute sigmoid diverticulitis with associated pelvic abscesses 03/27-11/2022 Recent admission to [facility] for C.diff 07/15- Admitted for: Pancolitis 08/27 C. diff, Mild infectious encephalopathy Pt reported he has been eating poorly at home d/t ongoing diarrhea. Appetite is ok, not wonderfulunderstandably. Has been drinking 2 Boost supplements/day. Was told to stay away from diary products but has been tolerating the Boost fine. Endorsed wt loss. UBW about 170#. Now down to 160#. CURRENT NUTRITION ORDERS Diet: Regular Diet Adult Current Intake/Tolerance: Pt had just finished breakfast. Tolerating it ok. Appetite is a little better but still not great. Prefers Boost supplements but wiling to have Ensure Enlive. Would like chocolate BID. Discussed having them scheduled between meals and pt to continue ordering 3 meals/day. Try to consume what he can and supplement with Ensure between meals. Hopeful to start feeling better as he reported being started on a different antibiotic now. Ordered first meal today, breakfast, per health touch. No intakes documented this admission per nursing flow sheet. NUTRITION FOCUSED PHYSICAL ASSESSMENT FOR DIAGNOSING MALNUTRITION) Yes-- visual, pt up in chair w/ breakfast Observed: Muscle wasting (refer to documentation in Malnutrition section) Subcutaneous fat loss (refer to documentation in Malnutrition section) Obtained from Chart/Interdisciplinary Team: CRS consult today = At this time we need to treat his C. difficile infection and get this under control before surgery. Therefore I have canceled his surgery for tomorrow. 08/18/23 23:41 C Difficile Toxin B by PCR Positive ! C. difficile GDH Antigen Positive ! C. Difficile Toxin Positive ! ANTHROPOMETRICS Height: 5' 7 Weight: 161 lbs 0 oz Body mass index is 25.22 kg/m??. Weight Status: Overweight BMI 25-29.9 IBW: 67.3 kg % IBW: 108% Weight History: Wt loss of 4 kg over past 1 month (5%) 08/18/23 73 kg (161 lb) 07/19/23 77 kg (169 lb 11.2 oz) 03/30/23 72.4 kg (159 lb 11.2 oz) 03/25/23 77.1 kg (170 lb) No recent wt hx per care everywhere LABS Reviewed MEDICATIONS multivitamin w/minerals 1 tablet Oral Q24H sodium chloride 100 mL/hr at 08/19/23 0121 ASSESSED NUTRITION NEEDS PER APPROVED PRACTICE GUIDELINES: Dosing Weight: 73 kg (08/18) Estimated Energy Needs: 2799-6851 kcal (25-30 Kcal/Kg) Justification: maintenance Estimated Protein Needs: 88-110 grams protein (1.2-1.5 g pro/Kg) Justification: hypercatabolism with acute illness Estimated Fluid Needs: 1 mL/kcal Justification: maintenance MALNUTRITION: % Weight Loss: > 5% in 1 month (severe malnutrition)-- 5% loss w/in 1 month % Intake: <75% for >/= 3 months (moderate malnutrition)-- suspected based on recent clinical course and d/w pt Subcutaneous Fat Loss: Orbital region moderate depletion and Upper arm region moderate depletion Muscle Loss: Temporal region mild depletion and Clavicle bone region moderate depletion Fluid Retention: None noted Malnutrition Diagnosis: Severe malnutrition in the context of -- Acute illness or injury Chronic illness or disease NUTRITION DIAGNOSIS: Altered GI function related to ongoing diarrhea 2/2 c.diff pancolitis as evidenced by 5% wt loss w/in 1 month, difficulty tolerating adequate PO x3 months NUTRITION INTERVENTIONS Recommendations / Nutrition Prescription Ordered chocolate Ensure Enlive @ 10 am [address] introduced self to pt, discussed role in care. Discussed having them scheduled between meals andpt to continue ordering 3 meals/day. Try to consume what he can and supplement with Ensure between meals Implementation Medical food supplement therapy Nutrition education Nutrition Goals Pt to consume >75% of >2 meals/day Wt >73 kg MONITORING AND EVALUATION: Progress towards goals will be monitored and evaluated per protocol and Practice Guidelines Clarice Castellano RD, LD Pager: [phone] OSITE ASSEMBLER * Aurea New RN - 08/18/2023 11:28 PM CST RECEIVING UNIT ED HANDOFF REVIEW ED Nurse Handoff Report was reviewed by: Aurea New, RN on August 18, 2023 at 11:28 PM OSITE ASSEMBLER documented in this encounter H&P Notes * Jun Leone MD - 08/19/2023 1:48 AM CST [facility] History and Physical - Hospitalist Service Date of Admission: 08/18/2023 Assessment & Plan Theodore Wu is a 78 year old male admitted on 08/18/2023. He presents with diarrhea Pancolitis 2/2 C diff Mild infectious encephalopathy Hospitalized 06/2023 with pancolitis 2/2 c diff. Significant diarrhea for last week, appears to have been back on vanco QID since 08/09. No abdominal pain, no reported fevers, no blood in stools. N EDafebrile, VSS. WBC 17.1. CT w/ pancolitis infectious vs inflammatory. Abscess decreased in size c/o03/2023, now at 2.2 cm. - fidaxomicin 200 mg PO BID pending ID consult - IV flagyl - ID consult - CRS consult - IV fluids Colonic abscess Incidentally found on lumbar MRI 02/2023. Not amenable to drainage. Has been on multiple courses of inpatient and outpatient antibiotics. CT a/p 07/15 w/ decrease in size of abscess. - CRS consult CAD s/p stenting Cx 2003 HTN HLD - resume meds with rec COPD Not on inhalers outpatient Tobacco use disorder Smokes /2- ppd - nicoderm 21 mg patch - encourage cessation/ cutting back MARISOL- Xanax 0.5 mg BID prn available Lumbar stenosis- prn analgesics available Glaucoma- resume home eye gtts with rec Diet: Clear Liquid Diet DVT Prophylaxis: PCDs Velazquez Catheter: Not present Lines: None Cardiac Monitoring: None Code Status: Full Code Clinically Significant Risk Factors Present on Admission # Drug Induced Platelet Defect: home medication list includes an antiplatelet medication # Hypertension: Home medication list includes antihypertensive(s) # Overweight: Estimated body mass index is 25.22 kg/m?? as calculated from the following: Height as of this encounter: 1.702 m (5' 7). Weight as of this encounter: 73 kg (161 lb). Disposition Plan Expected Discharge Date: 08/20/2023 Jun Leone MD Hospitalist Service [facility] Securely message with [facility] (more info) Text page via [email or web address] Paging/Directory Chief Complaint diarrhea History is obtained from the patient, electronic health record, and emergency department physician History of Present Illness Theodore Wu is a 78 year old male who presents with diarrhea. Patient has had a complex recent history. He has been dealing with a colonic diverticular abscess which was incidentally found in February 2023 and MRI. He has been through outpatient and inpatient courses of antibiotics. The location of the abscess makes it not amenable to IR drainage. He has been followed by colorectal surgery. He was also admitted in June for pancolitis secondary to C. difficile. He was treated with vancomycin. Note, patient appears to be mildly encephalopathic and does not know specifics of his history. He he thinks that his stools got better after his hospitalization in June but now have worsened again with diarrhea. He is not sure if he is taking antibiotics at this time although he did have his pre scription for vancomycin filled on August 09 it would appear. He denies any blood in his stool. Hedoes state his stools are very frequent and he is becoming raw and painful in the back from cleaning himself. He has no abdominal pain. He has no chest pain or shortness of breath. Denies fevers or chills. Past Medical History Past Medical History: Diagnosis Date Anemia Anxiety COPD (chronic obstructive pulmonary disease) (H) Coronary artery disease 2003 s/p stent to circumflex History of diverticular abscess Hypertension Mixed hyperlipidemia Past Surgical History Past Surgical History: Procedure Laterality Date CARDIAC SURGERY s/p CABG Prior to Admission Medications Prior to Admission Medications Prescriptions Last Dose Informant Patient Reported? Taking? ALPRAZolam (XANAX) 0.5 MG tablet Yes No Sig: Take 0.5 mg by mouth 2 times daily as needed for anxiety Ascorbic Acid (VITAMIN C) 500 MG CAPS Yes No Sig: Take 500 mg by mouth every other day acetaminophen (TYLENOL) 325 MG tablet No No Sig: Take 2 tablets (650 mg) by mouth every 6 hours as needed for mild pain Maximum of 4,000 mg of acetaminophen in any 24 hour period. aspirin (ASA) 325 MG EC tablet Self Yes No Sig: Take 325 mg by mouth daily Patient not taking: Reported on 07/16/2023 ergocalciferol (VITAMIN D2) 400 units (10 mcg) TABS tablet Yes No Sig: Take 400 Units by mouth daily latanoprost (XALATAN) 0.005 % ophthalmic solution Yes No Sig: Place 1 drop into both eyes every evening lisinopril (ZESTRIL) 20 MG tablet Self Yes No Sig: Take 20 mg by mouth daily multivitamin w/minerals (MULTI-VITAMIN) tablet Self Yes No Sig: Take 1 tablet by mouth daily multivitamin w/minerals (MULTI-VITAMIN) tablet Yes No Sig: Take by mouth every 24 hours nicotine (NICODERM CQ) 21 MG/24HR 24 hr patch Yes No Sig: Place 1 patch onto the skin daily as needed for smoking cessation nitroGLYcerin (NITROSTAT) 0.4 MG sublingual tablet Yes No Sig: every 5 to 15 minutes simvastatin (ZOCOR) 20 MG tablet Self Yes No Sig: Take 20 mg by mouth At Bedtime traMADol (ULTRAM) 50 MG tablet Yes No Sig: TAKE ONE OR TWO TABLETS BY MOUTH EVERY SIX HOURS NEEDED FOR PAIN* vancomycin (VANCOCIN) 125 MG capsule No No Sig: Take 1 capsule (125 mg) by mouth 4 times daily Facility-Administered Medications: None Review of Systems The 10 point Review of Systems is negative other than noted in the HPI or here. Social History I have reviewed this patient's social history and updated it with pertinent information if needed. Social History Tobacco Use Smoking status: Every Day Types: Cigarettes Smokeless tobacco: Never Substance Use Topics Alcohol use: Not Currently Drug use: Never Physical Exam Vital Signs: Temp: 97.6 ??F (36.4 ??C) Temp src: Oral BP: (!) 150/69 Pulse: 74 Resp: 18 SpO2: 95 % O2 Device: None (Room air) Weight: 161 lbs 0 oz General Appearance: Alert, very pleasant, no distress, sl confused Respiratory: CTA B Cardiovascular: RRR, no murmur. No edema GI: soft, nt/nd Skin: no rashes or lesions grossly Other: CN grossly intact, PEARCE Medical Decision Making 70 MINUTES SPENT BY ME on the date of service doing chart review, history, exam, documentation & further activities per the note. Data PAST 24 HR DATA REVIEWED I have personally reviewed the following data over the past 24 hrs: 17.1 (H) \ 12.8 (L) / 117 (L) 140 104 16.8 / 82 3.8 25 0.80 \ ALT: 22 AST: 23 AP: 86 TBILI: 0.5 ALB: 3.5 TOT PROTEIN: 6.7 LIPASE: N/A Imaging results reviewed over the past 24 hrs: Recent Results (from the past 24 hour(s)) CT Abdomen Pelvis w/o & w Contrast Narrative EXAM: CT ABDOMEN PELVIS W/O and W CONTRAST LOCATION: [facility] DATE: 08/18/2023 INDICATION: Diarrhea. Concern for [...] do not require follow-up. Vascular calcifications at theright renal hilum. No urinary calculi or hydronephrosis. [...] left at L5-S1. No acute bony abnormality. Impression IMPRESSION: 1. Pancolitis, likely infectious or inflammatory. [...] abscess. 4. Possible cystitis. Correlate with urinalysis. OSITE ASSEMBLER documented in this encounter Consult Notes * Ivette Huffman, LISS - 08/20/2023 12:41 PM CSTAssociated Order(s): CARE MANAGEMENT / SOCIAL WORK IP CONSULT Care Management Initial Consult General Information Assessment completed with: Patient, (Estevan) Type of CM/SW Visit: Initial Assessment Primary Care Provider verified and updated as needed: Yes (Dr Juan Pablo Buckley) Readmission within the last 30 days: no previous admission in last 30 days Reason for Consult: discharge planning Advance Care Planning: Advance Care Planning Reviewed: no concerns identified Communication Assessment Patient's communication style: spoken language (Cuban or Bilingual) Hearing Difficulty or Deaf: no Wear Glasses or Blind: yes Cognitive Cognitive/Neuro/Behavioral: WDL Living Environment: People in home: spouse (Mary. Barreto) Current living Arrangements: house Able to return to prior arrangements: yes Living Arrangement Comments: (All on one level) Family/Social Support: Care provided by: self, spouse/significant other Provides care for: no one Marital Status: , Children, Other (specify) (Friend) Cynthia Description of Support System: Supportive, Involved Support Assessment: Adequate family and caregiver support Current Resources: Patient receiving home care services: No Community Resources: Equipment currently used at home: cane, straight, walker, rolling Supplies currently used at home: Employment/Financial: Employment Status: retired Financial Concerns: none Referral to Financial Worker: No Does the patient's insurance plan have a 3 day qualifying hospital stay waiver? No Lifestyle & Psychosocial Needs: Social Determinants of Health Food Insecurity: Not on file Depression: Not on file Housing Stability: Not on file Tobacco Use: High Risk (08/18/2023) Patient History Smoking Tobacco Use: Every Day Smokeless Tobacco Use: Never Passive Exposure: Not on file Financial Resource Strain: Not on file Alcohol Use: Not on file Transportation Needs: Not on file Physical Activity: Not on file Interpersonal Safety: Not on file Stress: Not on file Social Connections: Not on file Functional Status: Prior to admission patient needed assistance: Dependent ADLs:: Ambulation-walker, Ambulation-cane Dependent IADLs:: Independent Mental Health Status: Mental Health Status: Current Concern Mental Health Management: Medication Chemical Dependency Status: Chemical Dependency Status: No Current Concerns Values/Beliefs: Spiritual, Cultural Beliefs, Confucianist Practices, Values that affect care: Additional Information: Consult for discharge planning. 78 year old male patient admitted on 08/18/2023 for C diff and mileencephalopathy. From chart review Patient history of colonic diverticular abscess which was incidentally found in February 2023 and MRI. He has been through outpatient and inpatient courses of antibiotics. The location of the abscess makes it not amenable to IR drainage. He has been followed by colorectal surgery. He was also admitted in June for pancolitis secondary to C. difficile. He was treated with vancomycin. Roll Coating Machine Operator met with patient at bedside and introduced self and role. Patient reports using a cane and walker at baseline and independent with ADLs. Patient is interested in home care nursing, PT and OT and wants referrals sent. Roll Coating Machine Operator sending through [facility]. Patient wanted referrals for energy assistance and also for senior linkage line and meals on wheels, resources were added to patients discharge paper work. Patient also mentioned being connected with support for anxiety when prompted and admittingthat he has had a had tie adjusting to diagnosis. LISS Arevalo OSITE ASSEMBLER * Laine Blevins MD - 08/20/2023 11:33 AM CSTAssociated Order(s): PSYCHIATRY IP CONSULT Images from the original note were not included. Initial Psychiatric Consult Consult date: August 20, 2023 Reason for Consult, requesting source: Depression Requesting source: Jun Leone Labs and imaging reviewed. Patient seen and evaluated by Laine Blevins MD HPI: This is a 78-year-old male with a history of anxiety, COPD, coronary artery disease status post PCIin the past, hypertension, hyperlipidemia. Patient has a history of by reticulitis with pelvic abscess and recurrent C. difficile infection. Patient was scheduled to have sigmoid colectomy might colorectal surgery but developed diarrhea came in the hospital and was found to have C. difficile again.CT scan shows pancolitis. Patient apparently had mild encephalopathy initially, but this is improved. Patient apparently has been very depressed per family, and they are hoping for him to be assessed. Had a pleasant conversation with this gentleman today. He is insightful, and reports that he has a history of anxiety. He uses Xanax very sparingly in the community, and finds it helpful. He also reports that he has a short fuse, and tends to blow up with his anger, and then be over it. He realizesthat this is something he needs to work on. Patient identifies that his 's memory problems are something that he reacts poorly to, and does not feel good about. We discussed antidepressants, and I told the patient I would make a recommendation in the event that he wants to start them in the future. He is not inclined to start antidepressant currently, and I am in agreement. Past Psychiatric History: Patient has a history of anxiety, and has used intermittent Xanax for symptom control Substance Use and History: Patient has a history of alcohol use disorder, and has been sober for over 30 years. He attends . Past Medical History: PAST MEDICAL HISTORY: Past Medical History: Diagnosis Date Anemia Anxiety COPD (chronic obstructive pulmonary disease) (H) Coronary artery disease 2003 s/p stent to circumflex History of diverticular abscess Hypertension Mixed hyperlipidemia PAST SURGICAL HISTORY: Past Surgical History: Procedure Laterality Date CARDIAC SURGERY s/p CABG Family History: FAMILY HISTORY: No family history on file. Family Psychiatric History: Social History: SOCIAL HISTORY: Social History Tobacco Use Smoking status: Every Day Types: Cigarettes Smokeless tobacco: Never Substance Use Topics Alcohol use: Not Currently Physical ROS: The 10 point Review of Systems is negative other than noted in the HPI or here. Medications: fidaxomicin 200 mg Oral BID latanoprost 1 drop Both Eyes QPM lisinopril 20 mg Oral Daily multivitamin w/minerals 1 tablet Oral Q24H nicotine 1 patch Transdermal Daily nicotine Transdermal Q8H simvastatin 20 mg Oral At Bedtime sodium chloride (PF) 3 mL Intracatheter Q8H Allergies: No Known Allergies Labs and Imaging: Recent Results (from the past 48 hour(s)) Magnesium Collection Time: 08/18/23 7:11 PM Result Value Ref Range Magnesium 2.1 1.7 - 2.3 mg/dL Comprehensive metabolic panel Collection Time: 08/18/23 7:11 PM Result Value Ref Range Sodium 140 135 - 145 mmol/L Potassium 3.8 3.4 - 5.3 mmol/L Carbon Dioxide (CO2) 25 22 - 29 mmol/L Anion Gap 11 7 - 15 mmol/L Urea Nitrogen 16.8 8.0 - 23.0 mg/dL Creatinine 0.80 0.67 - 1.17 mg/dL GFR Estimate 90 >60 mL/min/1.73m2 Calcium 9.0 8.8 - 10.2 mg/dL Chloride 104 98 - 107 mmol/L Glucose 82 70 - 99 mg/dL Alkaline Phosphatase 86 40 - 150 U/L AST 23 0 - 45 U/L ALT 22 0 - 70 U/L Protein Total 6.7 6.4 - 8.3 g/dL Albumin 3.5 3.5 - 5.2 g/dL Bilirubin Total 0.5 <=1.2 mg/dL CBC with platelets and differential Collection Time: 08/18/23 7:11 PM Result Value Ref Range WBC Count 17.1 (H) 4.0 - 11.0 10e3/uL RBC Count 4.19 (L) 4.40 - 5.90 10e6/uL Hemoglobin 12.8 (L) 13.3 - 17.7 g/dL Hematocrit 38.2 (L) 40.0 - 53.0 % MCV 91 78 - 100 fL MCH 30.5 26.5 - 33.0 pg MCHC 33.5 31.5 - 36.5 g/dL RDW 13.9 10.0 - 15.0 % Platelet Count 117 (L) 150 - 450 10e3/uL % Neutrophils 76 % % Lymphocytes 16 % % Monocytes 5 % % Eosinophils 2 % % Basophils 0 % % Immature Granulocytes 1 % NRBCs per 100 WBC 0 <1 /100 Absolute Neutrophils 13.1 (H) 1.6 - 8.3 10e3/uL Absolute Lymphocytes 2.7 0.8 - 5.3 10e3/uL Absolute Monocytes 0.8 0.0 - 1.3 10e3/uL Absolute Eosinophils 0.3 0.0 - 0.7 10e3/uL Absolute Basophils 0.1 0.0 - 0.2 10e3/uL Absolute Immature Granulocytes 0.2 <=0.4 10e3/uL Absolute NRBCs 0.0 10e3/uL C. difficile Toxin B PCR with reflex to C. difficile Antigen and Toxins A/B EIA Collection Time: 08/18/23 11:41 PM Specimen: Per Rectum; Stool Result Value Ref Range C Difficile Toxin B by PCR Positive (A) Negative C. difficile Antigen and Toxins A/B by Enzyme Immunoassay Collection Time: 08/18/23 11:41 PM Specimen: Per Rectum; Stool Result Value Ref Range C. difficile GDH Antigen Positive (A) Negative C. difficile Toxin Positive (A) Negative UA with Microscopic reflex to Culture Collection Time: 08/19/23 2:55 AM Specimen: Urine, Clean Catch Result Value Ref Range Color Urine Light Yellow Colorless, Straw, Light Yellow, Yellow Appearance Urine Clear Clear Glucose Urine Negative Negative mg/dL Bilirubin Urine Negative Negative Ketones Urine 10 (A) Negative mg/dL Specific [place] Urine 1.015 1.003 - 1.035 Blood Urine Negative Negative pH Urine 5.5 5.0 - 7.0 Protein Albumin Urine Negative Negative mg/dL Urobilinogen Urine Normal Normal, 2.0 mg/dL Nitrite Urine Negative Negative Leukocyte Esterase Urine Negative Negative Mucus Urine Present (A) None Seen /LPF RBC Urine 1 <=2 /HPF WBC Urine 1 <=5 /HPF Phosphorus Collection Time: 08/19/23 3:45 PM Result Value Ref Range Phosphorus 2.8 2.5 - 4.5 mg/dL Basic metabolic panel Collection Time: 08/20/23 7:00 AM Result Value Ref Range Sodium 137 135 - 145 mmol/L Potassium 3.1 (L) 3.4 - 5.3 mmol/L Chloride 102 98 - 107 mmol/L Carbon Dioxide (CO2) 27 22 - 29 mmol/L Anion Gap 8 7 - 15 mmol/L Urea Nitrogen 6.4 (L) 8.0 - 23.0 mg/dL Creatinine 0.71 0.67 - 1.17 mg/dL GFR Estimate >90 >60 mL/min/1.73m2 Calcium 8.5 (L) 8.8 - 10.2 mg/dL Glucose 88 70 - 99 mg/dL Phosphorus Collection Time: 08/20/23 7:00 AM Result Value Ref Range Phosphorus 2.9 2.5 - 4.5 mg/dL CBC with platelets and differential Collection Time: 08/20/23 7:00 AM Result Value Ref Range WBC Count 9.5 4.0 - 11.0 10e3/uL RBC Count 4.06 (L) 4.40 - 5.90 10e6/uL Hemoglobin 12.4 (L) 13.3 - 17.7 g/dL Hematocrit 36.5 (L) 40.0 - 53.0 % MCV 90 78 - 100 fL MCH 30.5 26.5 - 33.0 pg MCHC 34.0 31.5 - 36.5 g/dL RDW 13.5 10.0 - 15.0 % Platelet Count 110 (L) 150 - 450 10e3/uL % Neutrophils 74 % % Lymphocytes 16 % % Monocytes 8 % % Eosinophils 1 % % Basophils 0 % % Immature Granulocytes 1 % NRBCs per 100 WBC 0 <1 /100 Absolute Neutrophils 7.0 1.6 - 8.3 10e3/uL Absolute Lymphocytes 1.5 0.8 - 5.3 10e3/uL Absolute Monocytes 0.7 0.0 - 1.3 10e3/uL Absolute Eosinophils 0.1 0.0 - 0.7 10e3/uL Absolute Basophils 0.0 0.0 - 0.2 10e3/uL Absolute Immature Granulocytes 0.1 <=0.4 10e3/uL Absolute NRBCs 0.0 10e3/uL Physical and Psychiatric Examination: BP (!) 154/88 Pulse 76 Temp 97.9 ??F (36.6 ??C) (Oral) Resp 18 Ht 1.702 m (5' 7) Wt 73 kg (161 lb) SpO2 96% BMI 25.22 kg/m?? Weight is 161 lbs 0 oz Body mass index is 25.22 kg/m??. Physical Exam: I have reviewed the physical exam as documented by by the medical team and agree with findings and assessment and have no additional findings to add at this time. Mental Status Exam: Appearance: awake, alert, adequately groomed, and appeared younger than stated age Attitude: cooperative Eye Contact: good Mood: better Affect: appropriate and in normal range Speech: clear, coherent Language: Fluent in mohawk Psychomotor Behavior: no evidence of tardive dyskinesia, dystonia, or tics Thought Process: logical, linear, and goal oriented Associations: no loose associations Thought Content: no evidence of suicidal ideation or homicidal ideation and no evidence of psychotic thought Insight: good Judgement: intact Oriented to: time, person, and place Attention Span and Concentration: intact Recent and Remote Memory: intact Fund of Knowledge: Appropriate Gait and Station: DSM-5 Diagnosis: Mood disorder due to general medical condition Alcohol dependence in long-term remission Anxiety C. difficile colitis History of diverticulitis with colonic abscess Assessment: This is a 78-year-old male with recent struggles with sequelae of a colonic abscess related to diverticulitis. He is also had C. difficile colitis. Patient was supposed to have a hemicolectomy on this hospitalization, but was found to have C. difficile again. I was asked to see him due to family's concern that he is depressed. Patient states at this point he is just frustrated and pissed off. He was humorous about this, and insightful. He is in recovery for decades from alcoholism, and attends AA. Patient uses Xanax very intermittently for anxiety. He wanted to talk about antidepressants, but did not feel like this is appropriate for him currently. I am in agreement with this. He has significant gastrointestinal issues which could be exacerbated by an antidepressant. He is also thrombocytopenic. Much of his mood is related to not feeling well, and I do not think that an antidepressant is going to help that. It is more likely to be problematic due to side effects. Summary of Recommendations: 1. I do not recommend an antidepressant currently, and patient does not want 1. 2. If an antidepressant is trialed because the patient wants to at some point, would recommend a very low-dose medication such as Lexapro 2.5 mg daily with food. Remeron 7.5 mg p.o. nightly would be another thought. I would avoid Zoloft altogether due to the propensity for GI side effects. Prozac has an extremely long half-life, which I would also avoid, because if it is problematic for him. It will take quite a while to metabolize out. 3. Psychiatry will sign off. Patient is okay to discharge from a psychiatric standpoint when medically clear. Laine Blevins MD Consult/Liaison Psychiatry and Addiction Medicine [facility] OSITE ASSEMBLER * Sybil Steinberg MD - 08/19/2023 9:53 AM CSTAssociated Order(s): INFECTIOUS DISEASES IP CONSULT [facility] Infectious Disease Consultation Date of Admission: 08/18/2023 Date of Consult (When I saw the patient): 08/19/23 Assessment & Plan Theodore Wu is a 78 year old who was admitted on 08/18/2023. Impression: 78 yo with PMH of hypertension, CAD s/p CABG, current smoker c/b COPD Long standing history of intra-abdominal abscess [facility]ally [facility]. [facility] was noted that this abscess would not amenable to IR drainage due to location. He signed out AGAINST MEDICAL ADVICE at that time. He also has history of chronic low back pain with finding of lumbar stenosis and has been seen by neurosurgery. He was admitted to [facility] from 03/27 - 03/30/23 with acute sigmoid diverticulitis with associatedpelvic abscess. He was seen by colorectal surgery. He was seen by IR and once again did not have access to safely put a percutaneous drain. It was decided that he will be treated with antibiotics with repeat scans and outpatient follow-up with colorectal surgery. Patient known to me from recent admission for c diff colitis. CT of the abdomen pelvis showed interval decrease in the peridiverticular abscess now measuring 2.2 x 2 cm. There is evidence of pancolitis. Prominent loops of nondilated fluid-filled small bowel in the left lower quadrant noted this reflected isolated ileus versus early small bowel obstruction. Now again admitted with diarrhea, tested positive for C diff Repeat CT: Fluid and gas containing pelvic abscess at the level of L5-S1 has decreased in size since 03/28/2023, now measuring up to 2.2 cm. A small bowel loop and the sigmoid colon are tethered by scar tissue to the abscess, without a definite clear communication with the bowel lumen Started on fidaxomicin Recommendations; Agree with Fidaxomicin 10 day course Sybil Steinberg MD Reason for Consult Reason for consult: I was asked to evaluate this patient for recurrent C diff . Primary Care Physician Physician No Ref-Primary Chief Complaint Diarrhea History is obtained from the patient and medical records History of Present Illness Theodore Wu is a 78 year old male who presents with diarrhea every 2 hours tested positive for Cdif Past Medical History I have reviewed this patient's medical history and updated it with pertinent information if needed. Past Medical History: Diagnosis Date Anemia Anxiety COPD (chronic obstructive pulmonary disease) (H) Coronary artery disease 2003 s/p stent to circumflex History of diverticular abscess Hypertension Mixed hyperlipidemia Past Surgical History I have reviewed this patient's surgical history and updated it with pertinent information if needed. Past Surgical History: Procedure Laterality Date CARDIAC SURGERY s/p CABG Prior to Admission Medications Prior to Admission Medications Prescriptions Last Dose Informant Patient Reported? Taking? ALPRAZolam (XANAX) 0.5 MG tablet Yes No Sig: Take 0.5 mg by mouth 2 times daily as needed for anxiety Ascorbic Acid (VITAMIN C) 500 MG CAPS Yes No Sig: Take 500 mg by mouth every other day acetaminophen (TYLENOL) 325 MG tablet No No Sig: Take 2 tablets (650 mg) by mouth every 6 hours as needed for mild pain Maximum of 4,000 mg of acetaminophen in any 24 hour period. aspirin (ASA) 325 MG EC tablet Self Yes No Sig: Take 325 mg by mouth daily Patient not taking: Reported on 07/16/2023 ergocalciferol (VITAMIN D2) 400 units (10 mcg) TABS tablet Yes No Sig: Take 400 Units by mouth daily latanoprost (XALATAN) 0.005 % ophthalmic solution Yes No Sig: Place 1 drop into both eyes every evening lisinopril (ZESTRIL) 20 MG tablet Self Yes No Sig: Take 20 mg by mouth daily multivitamin w/minerals (MULTI-VITAMIN) tablet Self Yes No Sig: Take 1 tablet by mouth daily multivitamin w/minerals (MULTI-VITAMIN) tablet Yes No Sig: Take by mouth every 24 hours nicotine (NICODERM CQ) 21 MG/24HR 24 hr patch Yes No Sig: Place 1 patch onto the skin daily as needed for smoking cessation nitroGLYcerin (NITROSTAT) 0.4 MG sublingual tablet Yes No Sig: every 5 to 15 minutes simvastatin (ZOCOR) 20 MG tablet Self Yes No Sig: Take 20 mg by mouth At Bedtime traMADol (ULTRAM) 50 MG tablet Yes No Sig: TAKE ONE OR TWO TABLETS BY MOUTH EVERY SIX HOURS NEEDED FOR PAIN* vancomycin (VANCOCIN) 125 MG capsule No No Sig: Take 1 capsule (125 mg) by mouth 4 times daily Facility-Administered Medications: None Allergies No Known Allergies Immunization History Immunization History Administered Date(s) Administered COVID-19 12+ (2022-) (MODERNA) 05/07/2023 COVID-19 Bivalent 12+ (Pfizer) 04/20/2022 COVID-19 MONOVALENT 12+ (Pfizer) 09/27/2020, 10/18/2020, 06/10/2021 COVID-19 Monovalent 12+ (Pfizer 2021) 01/01/2022 Social History I have reviewed this patient's social history and updated it with pertinent information if needed. Theodore Wu reports that he has been smoking cigarettes. He has never used smokeless tobacco. He reports that he does not currently use alcohol. He reports that he does not use drugs. Family History I have reviewed this patient's family history and updated it with pertinent information if needed. No family history on file. Review of Systems The 10 point Review of Systems is negative Physical Exam Temp: 97.3 ??F (36.3 ??C) Temp src: Oral BP: (!) 158/69 Pulse: 97 Resp: 18 SpO2: 93 % O2 Device: None (Room air) Vital Signs with Ranges Temp: [97.3 ??F (36.3 ??C)-98.3 ??F (36.8 ??C)] 97.3 ??F (36.3 ??C) Pulse: [72-97] 97 Resp: [18-20] 18 BP: (136-158)/(59-69) 158/69 SpO2: [93 %-97 %] 93 % 161 lbs 0 oz Body mass index is 25.22 kg/m??. GENERAL APPEARANCE: awake EYES: Eyes grossly normal to inspection NECK: no adenopathy RESP: lungs clear CV: regular rates and rhythm LYMPHATICS: normal ant/post cervical and supraclavicular nodes ABDOMEN: soft, nontender MS: extremities normal SKIN: no suspicious lesions or rashes Data All laboratory data reviewed No results for input(s): CULT in the last 168 hours. No lab results found. Invalid input(s): UC All cultures: No results for input(s): CULTURE in the last 168 hours. Blood culture: Results for orders placed or performed during the hospital encounter of 03/27/23 Blood Culture Peripheral Blood Specimen: Peripheral Blood Result Value Ref Range Culture No Growth Blood Culture Peripheral Blood Specimen: Peripheral Blood Result Value Ref Range Culture No Growth Urine culture: No results found for this or any previous visit. 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 Leone Reason for consult: Recurrent C. difficile colitis History of Present Illness: Theodore uW is a 78 year old male, seen at the request of Dr. Leone, presents with diarrhea.He has a history of CAD status post stenting in 2003, hypertension, hyperlipidemia, COPD, current smoker diverticulitis with a persistent pelvic abscess and prior C. difficile colitis. He is well-known to me and we actually had surgery scheduled for tomorrow August 20. Unfortunately he started noticing problems with recurrent diarrhea earlier this week. I did send another prescription for oral vancomycin and schedule some outpatient workup but he continued to struggle and therefore I told his Cynthia to bring him to the hospital. He reports that he has been having diarrhea every 2 hours. He does feel like he is getting weak. He has also been confused and more combative at home according to his Cynthia. This is consistent with his presentation of C. difficile colitis back at the end of June. Lab workup was notable for white count of 17,000. CT scan shows pancolitis and his C. difficile testing is positive. Colonoscopy History: 8 years prior No prior abdominal surgery Past Medical History: Past Medical History: Diagnosis Date Anemia Anxiety COPD (chronic obstructive pulmonary disease) (H) Coronary artery disease 2003 s/p stent to circumflex History of diverticular abscess Hypertension Mixed hyperlipidemia Past Surgical History: Past Surgical History: Procedure Laterality Date CARDIAC SURGERY s/p CABG Social History: Social History Tobacco Use Smoking status: Every Day Types: Cigarettes Smokeless tobacco: Never Substance Use Topics Alcohol use: Not Currently Family History: No family history on file. Allergies: No Known Allergies Medications: fidaxomicin 200 mg Oral BID metroNIDAZOLE 500 mg Intravenous Q8H nicotine 1 patch Transdermal Daily nicotine Transdermal Q8H sodium chloride (PF) 3 mL Intracatheter Q8H Review of Systems: A comprehensive greater than 10 system review of systems was carried out. Pertinent positives and negatives are noted above. Otherwise negative for contributory info. Physical Exam: Blood pressure (!) 150/69, pulse 74, temperature 97.6 ??F (36.4 ??C), temperature source Oral, resp. rate 18, height 1.702 m (5' 7), weight 73 kg (161 lb), SpO2 95%. Intake/Output Summary (Last 24 hours) at 08/19/2023 2103 Last data filed at 08/19/2023 0625 Gross per 24 hour Intake 624 ml Output 200 ml Net 424 ml Exam: General - Awake alert and oriented, appears stated age Pulm - Non-labored breathing with normal respiratory effort CVS - reg rate and rhythm, no peripheral edema Abd -soft, nontender, nondistended, Rectal exam was not performed. Neuro - CN II-XII grossly intact Musculoskeletal - extremities with no clubbing, cyanosis or edema; able to ambulate Psych - responsive, alert, cooperative; oriented x3; appropriate mood and affect External/skin - inspection reveals no rashes, lesions or ulcers, normal coloring Data Reviewed: Recent Results (from the past 24 hour(s)) CT Abdomen Pelvis w/o & w Contrast Narrative EXAM: CT ABDOMEN PELVIS W/O and W CONTRAST LOCATION: [facility] DATE: 08/18/2023 INDICATION: Diarrhea. Concern for [...] do not require follow-up. Vascular calcifications at theright renal hilum. No urinary calculi or hydronephrosis. [...] left at L5-S1. No acute bony abnormality. Impression IMPRESSION: 1. Pancolitis, likely infectious or inflammatory. [...] abscess. 4. Possible cystitis. Correlate with urinalysis. Recent Labs Lab 08/18/231910 WBC 17.1* HGB 12.8* HCT 38.2* MCV 91 PLT 117* Recent Labs Lab 08/18/231910 NA 140 POTASSIUM 3.8 CHLORIDE 104 CO2 25 ANIONGAP 11 GLC 82 BUN 16.8 CR 0.80 GFRESTIMATED 90 ALEIDA 9.0 Assessment and Plan: This is a 78-year-old male with multiple medical comorbidities and history of diverticulitis with persistent pelvic abscess as well as C. difficile colitis well-known to myself was admitted for recurrent C. difficile colitis. At this time we need to treat his C. difficile infection and get this under control before surgery. Therefore I have canceled his surgery for tomorrow. Will have ID involvedso that they can help with outpatient management and ensure that he is recovering from his C. difficile colitis before we proceed with surgical resection. Plan: Admit to hospitalist Surgery: (non-op, OR, elective, emergent, urgent) nonoperative Diet: Okay for clears and advance as tolerated IV Fluids: Yes Antibiotics: Per infectious disease Medications: (ie. Home meds to give/hold, blood thinners) per medicine I&O? s: strict I&O? s, (stoma output?, velazquez?) Monitor stool output Labs: - Reviewed: WBC 17K - Ordered: A.m. labs Imaging: - I have personally viewed: CT abd/pelvis - Ordered: NA Activity: (ambulate, PT/OT) up ad gem. DVT prophylaxis: SCD???s, Patient specific identified risk factors considered as part of today???s evaluation include: CAD, COPD, smoker, HTN, recurrent C. difficile infection (Blood thinners, BMI>30, Smoker, Diabetic etc.etc.) Additional history obtained from patient, patient's . Time spent on consultation: 45 minutes, greater than 50% of total encounter time was spent in counseling and or coordination of care. Maddi Barba MD [facility] [employer] documented in this encounter ED Notes * Neema Wheatley RN - 08/18/2023 11:03 PM CST [facility] ED Nurse Handoff Report ED Chief complaint: Wound Infection ED Diagnosis: Final diagnoses: Pancolitis (H) Intra-abdominal abscess (H) C. difficile colitis Code Status: MD to address Allergies: No Known Allergies Patient Story: Pt was told to come to ED by primary provider for a known colon abscess. Focused Assessment: Abd discomfort, colon abscess decreased in size, pancolitis Treatments and/or interventions provided: abx, imaging, labs Patient's response to treatments and/or interventions: in progress To be done/followed up on inpatient unit: n/a Does this patient have any cognitive concerns?: n.a Activity level - Baseline/Home: Stand with Assist Activity Level - Current: Stand with Assist Patient's Preferred language: Cuban Principal Bioinformatics Specialist Needed?: No Isolation: contact Infection: Not Applicable C-Diff Pending Patient tested for COVID 19 prior to admission: NO Bariatric?: No Vital Signs: Vitals: 08/18/23 1903 08/18/23 2203 08/18/23 2208 BP: 136/59 (P) 139/64 139/64 Pulse: 80 72 Resp: 18 (P) 20 18 Temp: 97.7 ??F (36.5 ??C) (P) 98.3 ??F (36.8 ??C) 98.3 ??F (36.8 ??C) TempSrc: (P) Oral Oral SpO2: 96% 97% Weight: 73 kg (161 lb) Height: 1.702 m (5' 7) Cardiac Rhythm: Was the PSS-3 completed: Yes What interventions are required if any? OBS brochure/video discussed/provided to patient/family: N/A For the majority of the shift this patient's behavior was Green. ED NURSE PHONE NUMBER: [phone] [employer]SEM[employer]ER * Abdirizak Michael RN - 08/18/2023 9:47 PM CST Bed: ED09 Expected date: Expected time: Means of arrival: Comments: Triage [employer]ER * Terra Alejandro RN - 08/18/2023 7:03 PM CST Pt was told by PCP to come to the hospital for a colon abscess. Triage Assessment (Adult) Row Name 08/18/23 4605 Triage Assessment Airway WDL WDL Respiratory WDL Respiratory WDL WDL Skin Circulation/Temperature WDL Skin Circulation/Temperature WDL WDL Cardiac WDL Cardiac WDL WDL Peripheral/Neurovascular WDL Peripheral Neurovascular WDL WDL Cognitive/Neuro/Behavioral WDL Cognitive/Neuro/Behavioral WDL WDL [employer]ER * Luisa Mendoza MD - 08/18/2023 6:41 PM CST History Chief Complaint: Wound Infection The history is provided by the patient. Theodore Wu is a 78 year old male who presents for evaluation of colonic abscess. Theodore reports that he has an abscess in his colon. The patient also reports that he has currently received C. Diff treatment after reported experiencing diarrhea for the past week. He is on vancomycin but he and his feel that this is actually making his symptoms worse. He talked to his doctor today who recommended that he present to the ED for admission prior to surgery to repair the can you give it to another doctor sorry abscess. Independent Historian: None - Patient Only Review of External Notes: Reviewed past medical records. Patient does have a history of C. difficile in June. He has a history of a colonic diverticular abscess. He was apparently scheduled for a robotic possible open sigmoid colectomy possible stoma a little as well as a cystoscopy with bilateral ureteric catheter and surgery at [facility] in [address] Barba is his colorectal surgeon. Medications: Acetaminophen Alprazolam Aspirin Latanoprost Lisinopril Nicotine Nitroglycerin Simvastatin Tramadol Vancomycin Past Medical History: Anemia Anxiety COPD Coronary artery disease History of diverticular abscess Hypertension Mixed hyperlipidemia Past Surgical History: Cardiac surgery Physical Exam Patient Vitals for the past 24 hrs: BP Temp Temp src Pulse Resp SpO2 Height Weight 08/19/23 0001 (!) 150/69 97.6 ??F (36.4 ??C) Oral 74 18 95 % -- -- 08/18/23 2208 139/64 98.3 ??F (36.8 ??C) Oral 72 18 97 % -- -- 08/18/23 2203 (P) 139/64 (P) 98.3 ??F (36.8 ??C) (P) Oral -- (P) 20 -- -- -- 08/18/23 1903 136/59 97.7 ??F (36.5 ??C) -- 80 18 96 % 1.702 m (5' 7) 73 kg (161 lb) Physical Exam General: Well-nourished, appears fatigued Eyes: PERRL, conjunctivae pink no scleral icterus or conjunctival injection ENT: Moist mucus membranes, posterior oropharynx clear without erythema or exudates Respiratory: Lungs clear to auscultation bilaterally, no crackles/rubs/wheezes. Good air movement CV: Normal rate and rhythm, no murmurs/rubs/gallops GI: Abdomen soft and non-distended. Normoactive BS. No tenderness, guarding or rebound Skin: Warm, dry. No rashes or petechiae Musculoskeletal: No peripheral edema or calf tenderness Neuro: Alert and oriented to person/place/time Psychiatric: Normal affect Emergency Department Course Imaging: CT Abdomen Pelvis w/o & w Contrast Final Result IMPRESSION: 1. Pancolitis, likely infectious or inflammatory. [...] abscess. 4. Possible cystitis. Correlate with urinalysis. Report per radiology. Laboratory: Labs Ordered and Resulted from Time of ED Arrival to Time of ED Departure CBC WITH PLATELETS AND DIFFERENTIAL - Abnormal Result Value WBC Count 17.1 (*) RBC Count 4.19 (*) Hemoglobin 12.8 (*) Hematocrit 38.2 (*) MCV 91 MCH 30.5 MCHC 33.5 RDW 13.9 Platelet Count 117 (*) % Neutrophils 76 % Lymphocytes 16 % Monocytes 5 % Eosinophils 2 % Basophils 0 % Immature Granulocytes 1 NRBCs per 100 WBC 0 Absolute Neutrophils 13.1 (*) Absolute Lymphocytes 2.7 Absolute Monocytes 0.8 Absolute Eosinophils 0.3 Absolute Basophils 0.1 Absolute Immature Granulocytes 0.2 Absolute NRBCs 0.0 MAGNESIUM - Normal Magnesium 2.1 COMPREHENSIVE METABOLIC PANEL - Normal Sodium 140 Potassium 3.8 Carbon Dioxide (CO2) 25 Anion Gap 11 Urea Nitrogen 16.8 Creatinine 0.80 GFR Estimate 90 Calcium 9.0 Chloride 104 Glucose 82 Alkaline Phosphatase 86 AST 23 ALT 22 Protein Total 6.7 Albumin 3.5 Bilirubin Total 0.5 C. DIFFICILE TOXIN B PCR WITH REFLEX TO C. DIFFICILE ANTIGEN AND TOXINS A/B EIA Emergency Department Course & Assessments: Interventions: Medications sodium chloride 0.9 % infusion ( Intravenous $New Bag 08/19/23 0121) traMADol (ULTRAM) tablet 50 mg (has no administration in time range) traMADol (ULTRAM) tablet 50 mg (has no administration in time range) nicotine Patch in Place (has no administration in time range) nicotine (NICODERM CQ) 21 MG/24HR 24 hr patch 1 patch (has no administration in time range) naloxone (NARCAN) injection 0.2 mg (has no administration in time range) Or naloxone (NARCAN) injection 0.4 mg (has no administration in time range) Or naloxone (NARCAN) injection 0.2 mg (has no administration in time range) Or naloxone (NARCAN) injection 0.4 mg (has no administration in time range) Saline (63 mLs As instructed $Given 08/18/232040) iopamidol (ISOVUE-370) solution 83 mL (83 mLs Intravenous $Given 08/18/232041) fidaxomicin (DIFICID) tablet 200 mg (200 mg Oral $Given 08/18/232342) Independent Interpretation (X-rays, CTs, rhythm strip): None Assessments/Consultations/Discussion of Management or Tests: ED Course as of 08/19/23241Aug 18, 20231905 Initial evaluation 2140 I spoke with Colorectal surgery regarding the patient's history and presentation in the emergency department today. 2199 I spoke with the clinical pharmacist. Given the patient's presentation and failure of outpatient oral vancomycin, they felt that I could start the patient on Dificid but did alert me that the hospitalist would need to order an infectious disease consult for additional doses. [address] Leone of the hospitalist team regarding the patient, who accepted the patient for admission. Social Determinants of Health affecting care: None Disposition: The patient was admitted to the hospital under the care of Dr. Leone. Impression & Plan [facility] Diagnoses: None Medical Decision Making: Theodore Wu is a 78 year old male with a history of C. difficile as well as a colonic diverticular abscess who comes today with ongoing diarrhea that is become too much for him. Abdomen is benign.He denies a fever. However, he does have an elevated white count and CT scan shows pancolitis. Given that he is having such a significant increase in the stool output and the findings of leukocytosisand pancolitis, I suspect this is all secondary to C. difficile colitis. This is not responded to oral vancomycin as an outpatient. I consulted with the clinical pharmacist and they felt that I couldgo ahead and treat with Dificid. First dose was given in the emergency department. Colorectal surgery on-call recommended that we go ahead and admit for likely C. difficile infection as this needs cullen treated before the patient will qualify for any sort of surgery. Colorectal will be consulted asan inpatient. Dr. Leone graciously agreed to admit the patient. Diagnosis: ICD-10-CM 1. Pancolitis (H) K51.00 2. Intra-abdominal abscess (H) K65.1 3. C. difficile colitis A04.72 Scribe Disclosure: IKen, am serving as a scribe at 7:06 PM on 08/18/2023 to document services personallyperformed by Luisa Mendoza MD based on my observations and the provider's statements to me. I, Vidya Pickens, am serving as a scribe at 7:28 PM on 08/18/2023 to document services personally performed by Luisa Mendoza MD based on my observations and the provider's statements to me. 08/18/2023 Luisa Mendoza MD Cho, Amy C, MD 08/19/23 0243 [employer]SEM[employer]ER documented in this encounter Miscellaneous Notes * Plan of Care - Aurea Donis PT - 08/21/2023 1:51 PM CST Physical Therapy Discharge Summary Reason for therapy discharge: Discharged to home with home therapy. Progress towards therapy goal(s). See goals on Care Plan in [facility] electronic health record for goal details. Goals partially met. Barriers to achieving goals: discharge from facility. Therapy recommendation(s): Continued therapy is recommended. Rationale/Recommendations: . PT Discharge Planning: PT Plan: progress ambulation distance, repeated sit<>stands, standing balance, LE exercises, stair training as needed PT Discharge Recommendation (DC Rec): home with assist, home with home care physical therapy PT Rationale for DC Rec: Patient below baseline functional mobility. Presents with deficits in strength, balance, and activity tolerance resulting in need for CGA and FWW to safely mobilize. Lives inaccesssible house with supportive spouse. May benefit from further cognitive assessment, defer to OT. Recommend discharge home with initial supervision and assist for mobility and cares from spouse. Use of FWW for all mobility. Recommend HH PT for improvement of strength, activity tolerance, balance, and safety/independence with functional mobility. HH OT for home safety evaluation and cognition. PT Brief overview of current status: SBA-CGA for mobility with FWW Recommendation above provided by last treating therapist. [employer]ITE [employer]SEMBLER * Plan of Care - Agustín Prince RN - 08/21/2023 1:43 PM CST Patient discharging home with family. AVS gone over with patient in room and prescriptions given topatient. Instructed patient on contacting pharmacy near them to fill rest of his abx as our pharmacy did not have enough. PIV removed. All belongings left with patient. Home medications returned to patient. All questions answered. 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 Denies pain. On enteric isolation. PIV intact, flushed, SL with intermittent antibiotics. No BM this shift. On regular diet. Up with SBA to the bathroom. Voiding using urinal. Continue with plan of care. OSITE ASSEMBLER * Plan of Care - Carmenza Thompson RN - 08/20/2023 9:57 PM CST Pt up with SBA. Denies pain. 1 stool on this shift, on abx. Potassium replaced, needed lab recollect. Await discharge plan [employer]ITE ASSEMBLER * Plan of Care - Agustín Prince RN - 08/20/2023 6:24 PM CST Shift: 08/20/23 [id number] Surgery/POD#: Cdiff colitis, pelvic abscess Orientation: A&O x4 Pain: Denies during shift Vitals/Tele: VSS on RA ex HTN IV Access/drains: PIV SL Diet: Regular Mobility: SBA GI/: Continent, urinal at bedside. BM x1 Wound/Skin: Blanchable redness to perineum & coccyx. Consults: ID/Colorectal Discharge Plan: Pending improvement OSITE ASSEMBLER * Plan of Care - Anna Tucker RN - 08/20/2023 1:49 PM CST Here for CDIFF. A&O x4, forgetful. VSS on RA. Up w/ SBA. Denied pain. Voiding in bathroom. Had multiple loose stools today. Encouraging PO fluids. Alarms on. Plan for possible discharge home tomorrow. OSITE ASSEMBLER * Plan of Care - Anu Munoz RN - 08/20/2023 6:30 AM CST Goal Outcome Evaluation: Patient is A&O X4, VSS on RA. Denies pain. On enteric isolation. PIV intact, infusing Ns at 100mL/hr with intermittent antibiotics and flagyl. BM X1 this shift, soft/formed. On regular diet. Up with SBA to the bathroom. Voiding using urinal. Continue with plan of care. OSITE ASSEMBLER * Plan of Care - Luba Olivo RN - 08/19/2023 11:06 PM CST Goal Outcome Evaluation: Shift: [id number] 08/19/2023 Surgery/POD#: Cdiff colitis, pelvic abscess Orientation: AO x4 Pain: Received PO Tylenol x1 for a headache Vitals/Tele: VSS RA IV Access/drains: PIV infusing NS at 100 mL/hr Diet: Regular Mobility: SBA GI/: Continent, urinal at Bedside; No BM this shift Wound/Skin: Blanchable redness to perineum & coccyx. Consults: ID/Colorectal Discharge Plan: TBD See Flow sheets for assessment OSITE ASSEMBLER * Plan of Care - Elizabeth Moran RN - 08/19/2023 6:01 PM CST Neuro: A&O x4 Tele/cardiac: N/A Respiration: on RA Activity: SBA Pain: ultram given for back and neck pain Drips: IVF Drains/tubes: none Skin: blanchable redness to coccyx GI/: incontinent at times, stool starting to form has had 4 BM today Aggression color: green Isolation:enteric precautions [employer] * Pharmacy-Admission Medication History - Syeda Hubbard [facility] - 08/19/2023 10:09 AM CST Pharmacist Admission Medication History Admission medication history is complete. The information provided in this note is only as accurateas the sources available at the time of the update. Information Source(s): Patient and CareEverywhere/SureScripts via in-person Pertinent Information: Pt hasn't taken aspirin for a while since he's been dealing with medical issues. Changes made to [facility] medication list: Added: probiotic, ibuprofen Deleted: None Changed: Vit D Allergies reviewed with patient and updates made in EHR: done by inflated pad buffer History Completed By: Syeda Hubbard [facility] 08/19/2023 10:10 AM [facility] Med List Medication Sig Last Dose acetaminophen (TYLENOL) 325 MG tablet Take 2 tablets (650 mg) by mouth every 6 hours as needed for mild pain Maximum of 4,000 mg of acetaminophen in any 24 hour period. at prn ALPRAZolam (XANAX) 0.5 MG tablet Take 0.5 mg by mouth 2 times daily as needed for anxiety at prn Ascorbic Acid (VITAMIN C) 500 MG CAPS Take 500 mg by mouth every other day 08/18/2023 at am aspirin (ASA) 325 MG EC tablet Take 325 mg by mouth daily Past Month cholecalciferol (VITAMIN D3) 125 mcg (5000 units) capsule Take 125 mcg by mouth daily 08/18/2023 at am ibuprofen (ADVIL/MOTRIN) 200 MG tablet Take 600-800 mg by mouth every 6 hours as needed for pain atprn lactobacillus rhamnosus, GG, (CULTURELL) capsule Take 1 capsule by mouth daily 08/18/2023 at am latanoprost (XALATAN) 0.005 % ophthalmic solution Place 1 drop into both eyes every 3 days 08/17/2023 at hs lisinopril (ZESTRIL) 20 MG tablet Take 20 mg by mouth at bedtime 08/17/2023 at hs multivitamin w/minerals (MULTI-VITAMIN) tablet Take 1 tablet by mouth daily 08/18/2023 at am nicotine (NICODERM CQ) 21 MG/24HR [address] 1 patch onto the skin daily as needed for smoking cessation at prn nitroGLYcerin (NITROSTAT) 0.[address] 0.4 mg under the tongue every 5 minutes asneeded for chest pain at prn simvastatin (ZOCOR) 20 MG tablet Take 20 mg by mouth At Bedtime 08/17/2023 at hs traMADol (ULTRAM) 50 MG tablet TAKE ONE OR TWO TABLETS BY MOUTH EVERY SIX HOURS NEEDED FOR PAIN*at prn [employer] * Plan of Care - Aurea New RN - 08/19/2023 6:49 AM CST Surgery/POD#: Cdiff colitis, pelvic abscess Orientation: A&Ox4 ABNL VS/O2: VSS on RA ABNL Labs: WBC 17.2 Pain Management: PRN Tramadol Bowel/Bladder: Voiding adequately in urinal. No BM since transfer from ED. Drains: PIV infusing NS at 100 ml/hr Diet: Regular Activity Level: SBA Tests/Procedures: ID & colorectal consults Anticipated DC Date: pending Significant Information: Blanchable redness to perineum & coccyx. Enteric precautions maintained. [employer] documented in this encounter Plan of Treatment Scheduled Referrals Name Type Priority Associated Diagnoses Orde r Schedule Home Care Referral Referral Routine: Next available opening Clostridioides difficile infection Ordered: 08/21/2023 documented as of this encounter Procedures Procedure Name Priority Date/Time Associated Diagnosis Comments CBC WITH PLATELETS AND DIFFERENTIAL Routine 08/21/2023 7:42 AM COMPOSITE [employer]SEMBLER CBC WITH PLATELETS & DIFFERENTIAL Routine 08/21/2023 7:42 AM COMPOSITE ASSEMBLER PHOSPHORUS Routine 08/21/2023 7:42 AM COMPOSITE ASSEMBLER BASIC METABOLIC PANEL Routine 08/21/2023 7:42 AM COMPOSITE ASSEMBLER POTASSIUM Timed 08/20/2023 10:02 PM COMPOSITE ASSEMBLER CBC WITH PLATELETS AND DIFFERENTIAL Routine 08/20/2023 7:00 AM COMPOSITE ASSEMBLER CBC WITH PLATELETS & DIFFERENTIAL Routine 08/20/2023 7:00 AM COMPOSITE ASSEMBLER PHOSPHORUS Routine 08/20/2023 7:00 AM COMPOSITE ASSEMBLER BASIC METABOLIC PANEL Routine 08/20/2023 7:00 AM COMPOSITE ASSEMBLER PHOSPHORUS Routine 08/19/2023 3:45 PM COMPOSITE ASSEMBLER ROUTINE UA WITH MICROSCOPIC REFLEX TO CULTURE Routine 08/19/2023 2:55 AM COMPOSITE ASSEMBLER C. DIFFICILE ANTIGEN AND TOXINS A/B BY ENZYME IMMUNOASSAY STAT 08/18/2023 11:41 PM COMPOSITE ASSEMBLER C. DIFFICILE TOXIN B PCR WITH REFLEX TO C. DIFFICILE ANTIGEN AND TOXINS A/B EIA STAT 08/18/2023 11:[address] ABDOMEN PELVIS W/O & W CONTRAST STAT 08/18/2023 8:56 PM COMPOSITE ASSEMBLER CBC WITH PLATELETS AND DIFFERENTIAL STAT 08/18/2023 7:11 PM COMPOSITE ASSEMBLER CBC WITH PLATELETS & DIFFERENTIAL STAT 08/18/2023 7:11 PM COMPOSITE ASSEMBLER MAGNESIUM STAT 08/18/2023 7:11 PM COMPOSITE ASSEMBLER COMPREHENSIVE METABOLIC PANEL STAT 08/18/2023 7:11 PM COMPOSITE ASSEMBLER documented in this encounter Results * (ABNORMAL) CBC with platelets and differential (08/21/2023 7:42 AM COMPOSITE ASSEMBLER) [facility] Signature WBC Count 8.9 4.0 - 11.0 10e3/uL 08/21/2023 7:56 AM [facility]ITE [facility]BL[facility] LABORATORY RBC Count 4.30(L) 4.40 - 5.90 10e6/uL 08/21/2023 7:56 AM [facility] Hemoglobin 13.0(L) 13.3 - 17.7 g/dL 08/21/2023 7:56 AM [facility] Hematocrit 38.4(L) 40.0 - 53.0 % 08/21/2023 7:56 AM [facility] MCV 89 78 - 100 fL 08/21/2023 7:56 AM [facility] MCH 30.2 26.5 - 33.0 pg 08/21/2023 7:56 AM [facility] MCHC 33.9 31.5 - 36.5 g/dL 08/21/2023 7:56 AM [facility] RDW 13.8 10.0 - 15.0 % 08/21/2023 7:56 AM [facility] Platelet Count 136(L) 150 - 450 10e3/uL 08/21/2023 7:56 AM [facility] % Neutrophils 67 % 08/21/2023 7:56 AM [facility] % Lymphocytes 22 % 08/21/2023 7:56 AM [facility] % Monocytes 9 % 08/21/2023 7:56 AM [facility] % Eosinophils 1 % 08/21/2023 7:56 AM [facility] % Basophils 0 % 08/21/2023 7:56 AM [facility] % Immature Granulocytes 1 % 08/21/2023 7:56 AM [facility] NRBCs per 100 WBC 0 <1 /100 024 7:56 AM [facility] Absolute Neutrophils 6.0 1.6 - 8.3 10e3/uL 08/21/2023 7:56 AM [facility] Absolute Lymphocytes 2.0 0.8 - 5.3 10e3/uL 08/21/2023 7:56 AM [facility] Absolute Monocytes 0.8 0.0 - 1.3 10e3/uL 08/21/2023 7:56 AM [facility] Absolute Eosinophils 0.1 0.0 - 0.7 10e3/uL 08/21/2023 7:56 AM [facility] Absolute Basophils 0.0 0.0 - 0.2 10e3/uL 08/21/2023 7:56 AM [facility] Absolute Immature Granulocytes 0.1 <=0.4 10e3/uL 08/21/2023 7:56 AM [facility] Absolute NRBCs 0.0 10e3/uL 08/21/2023 7:56 AM [facility] Blood BLOOD SPECIMEN / Unknown Venipuncture / Unknown 08/21/2023 7:42 AM [facility] 08/21/2023 7:48 AM [facility] Chris Marie MD LAB - BLOOD ORDERAB LES LABORATORY [facility] [address], [address] [place] [address], [facility] [phone] * (ABNORMAL) Basic metabolic panel (08/21/2023 7:42 AM [facility]) [facility] Signature Sodium 136 135 - 145 mmol/L 08/21/2023 8:15 AM [facility] Comment:Reference intervals for this test were updated on 04/20/2023 to more accurately reflect our healthy population. There may be differences in the flagging of prior results with similar values performed with this method. Interpretation of those prior results can be made in the context of the updated reference intervals. Potassium 3.3(L) 3.4 - 5.3 mmol/L 08/21/2023 8:15 AM [facility] Chloride 100 98 - 107 mmol/L 08/21/2023 8:15 AM [facility] Carbon Dioxide (CO2) 25 22 - 29 mmol/L 08/21/2023 8:15 AM [facility] Anion Gap 11 7 - 15 mmol/L 08/21/2023 8:15 AM [facility] Urea Nitrogen 6.9(L) 8.0 - 23.0 mg/dL 08/21/2023 8:15 AM [facility] Creatinine 0.70 0.67 - 1.17 mg/dL 08/21/2023 8:15 AM [facility] GFR Estimate >90 >60 mL/min/1. 73m2 08/21/2023 8:15 AM [facility] Calcium 8.8 8.8 - 10.2 mg/dL 08/21/2023 8:15 AM [facility] Glucose 98 70 - 99 mg/dL 08/21/2023 8:15 AM [facility] Blood BLOOD SPECIMEN / Unknown Venipuncture / Unknown 08/21/2023 7:42 AM [employer] 08/21/2023 7:48 AM [facility] Chris Marie MD LAB - BLOOD ORDERAB LES LABORATORY [facility] [address], [address] [place] [address], [facility] [phone] * Phosphorus (08/21/2023 7:42 AM COMPOSITE ASSEMBLER) Pathologist [facility] Phosphorus 3.1 2.5 - 4.5 mg/dL 08/21/2023 8:15 AM [facility] LABORATORY Blood BLOOD SPECIMEN / Unknown Venipuncture / Unknown 08/21/2023 7:42 AM COMPOSITE ASSEMBLER 08/21/2023 7:48 AM COMPOSITE ASSEMBLER Jun Leone MD LAB - BLOOD OR DERABLES LABORATORY [facility] [address], [address] [place] [address], [facility] [phone] * Potassium (08/20/2023 10:02 PM COMPOSITE ASSEMBLER) [facility] Potassium 3.6 3.4 - 5.3 mmol/L 08/20/2023 10:20 PM [facility] Blood STRUCTURE OF LEFT UPPER LIMB / Unknown Venipuncture / Unknown 08/20/2023 10:02 PM COMPOSITE ASSEMBLER 08/20/2023 10:07 PM COMPOSITE ASSEMBLER Jun Leone MD LAB - BLOOD OR DERABLES LABORATORY [facility] [address], [address] [place] [address], [facility] [phone] * (ABNORMAL) CBC with platelets and differential (08/20/2023 7:00 AM COMPOSITE ASSEMBLER) WBC Count 9.5 4.0 - 11.0 10e3/uL 08/20/2023 7:47 AM [facility] RBC Count 4.06(L) 4.40 - 5.90 10e6/uL 08/20/2023 7:47 AM [facility] LABORATORY Hemoglobin 12.4(L) 13.3 - 17.7 g/dL 08/20/2023 7:47 AM [facility] Hematocrit 36.5(L) 40.0 - 53.0 % 08/20/2023 7:47 AM [facility] MCV 90 78 - 100 fL 08/20/2023 7:47 AM [facility] MCH 30.5 26.5 - 33.0 pg 08/20/2023 7:47 AM [facility] MCHC 34.0 31.5 - 36.5 g/dL 08/20/2023 7:47 AM [facility] RDW 13.5 10.0 - 15.0 % 08/20/2023 7:47 AM [facility] Platelet Count 110(L) 150 - 450 10e3/uL 08/20/2023 7:47 AM [facility] % Neutrophils 74 % 08/20/2023 7:47 AM [facility] % Lymphocytes 16 % 08/20/2023 7:47 AM [facility] % Monocytes 8 % 08/20/2023 7:47 AM [facility] % Eosinophils 1 % 08/20/2023 7:47 AM [facility] % Basophils 0 % 08/20/2023 7:47 AM [facility] % Immature Granulocytes 1 % 08/20/2023 7:47 AM [facility] NRBCs per 100 WBC 0 <1 /100 024 7:47 AM [facility] Absolute Neutrophils 7.0 1.6 - 8.3 10e3/uL 08/20/2023 7:47 AM [facility] Absolute Lymphocytes 1.5 0.8 - 5.3 10e3/uL 08/20/2023 7:47 AM [facility] Absolute Monocytes 0.7 0.0 - 1.3 10e3/uL 08/20/2023 7:47 AM [facility] Absolute Eosinophils 0.1 0.0 - 0.7 10e3/uL 08/20/2023 7:47 AM [facility] Absolute Basophils 0.0 0.0 - 0.2 10e3/uL 08/20/2023 7:47 AM [facility] Absolute Immature Granulocytes 0.1 <=0.4 10e3/uL 08/20/2023 7:47 AM [facility] Absolute NRBCs 0.0 10e3/uL 08/20/2023 7:47 AM [facility] Blood STRUCTURE OF LEFT UPPER LIMB / Unknown Venipuncture / Unknown 08/20/2023 7:00 AM COMPOSITE ASSEMBLER 08/20/2023 7:33 AM COMPOSITE ASSEMBLER Chris Marie MD LAB - BLOOD ORDERAB LES LABORATORY [facility] [address], [address] [place] [address], [place] [phone] * Phosphorus (08/20/2023 7:00 AM COMPOSITE ASSEMBLER) Phosphorus 2.9 2.5 - 4.5 mg/dL 08/20/2023 8:00 AM [facility] Blood STRUCTURE OF LEFT UPPER LIMB / Unknown Venipuncture / Unknown 08/20/2023 7:00 AM COMPOSITE ASSEMBLER 08/20/2023 7:33 AM COMPOSITE ASSEMBLER Chris Marie MD LAB - BLOOD ORDERAB LES LABORATORY [facility] [address], [address] [address], [place] [phone] * (ABNORMAL) Basic metabolic panel (08/20/2023 7:00 AM COMPOSITE ASSEMBLER) Sodium 137 135 - 145 mmol/L 08/20/2023 8:00 AM [facility] Comment:Reference intervals for this test were updated on 04/20/2023 to more accurately reflect our healthy population. There may be differences in the flagging of prior results with similar values performed with this method. Interpretation of those prior results can be made in the context of the updated reference intervals. Potassium 3.1(L) 3.4 - 5.3 mmol/L 08/20/2023 8:00 AM [facility] Chloride 102 98 - 107 mmol/L 08/20/2023 8:00 AM [facility] Carbon Dioxide (CO2) 27 22 - 29 mmol/L 08/20/2023 8:00 AM [facility] Anion Gap 8 7 - 15 mmol/L 08/20/2023 8:00 AM [facility] Urea Nitrogen 6.4(L) 8.0 - 23.0 mg/dL 08/20/2023 8:00 AM [facility] Creatinine 0.71 0.67 - 1.17 mg/dL 08/20/2023 8:00 AM [facility] GFR Estimate >90 >60 mL/min/1. 73m2 08/20/2023 8:00 AM [facility] Calcium 8.5(L) 8.8 - 10.2 mg/dL 08/20/2023 8:00 AM [facility] Glucose 88 70 - 99 mg/dL 08/20/2023 8:00 AM [facility] Blood STRUCTURE OF LEFT UPPER LIMB / Unknown Venipuncture / Unknown 08/20/2023 7:00 AM COMPOSITE ASSEMBLER 08/20/2023 7:33 AM COMPOSITE ASSEMBLER Chris Marie MD LAB - BLOOD ORDERAB LES [facility] [address], [address] [address], [facility] [phone] * Phosphorus (08/19/2023 3:45 PM COMPOSITE ASSEMBLER) Phosphorus 2.8 2.5 - 4.5 mg/dL 08/19/2023 4:10 PM [facility] Blood STRUCTURE OF LEFT HAND / Unknown Venipuncture / Unknown 08/19/2023 3:45 PM COMPOSITE ASSEMBLER 08/19/2023 3:52 PM COMPOSITE ASSEMBLER Chris Marie MD LAB - BLOOD ORDERAB LES [facility] [address], [address] [place] [address], [facility] [phone] * (ABNORMAL) UA with Microscopic reflex to Culture (08/19/2023 2:55 AM COMPOSITE ASSEMBLER) Color Urine Light Yellow Colorless, Straw, Light Yellow, Yellow 08/19/2023 3:13 AM [facility] Appearance Urine Clear Clear 08/19/19 3:13 AM [facility] Glucose Urine Negative Negative mg/dL 08/19/2023 3:13 AM [facility] Bilirubin Urine Negative Negative 3:13 AM COM[facility]ITE [employer]SEM[facility]ER LABORATORY Ketones Urine 10(A) Negative mg/dL 08/19/2023 3:13 AM [facility] Specific [place] Urine 1.015 1.003 - 1.035 STEPHEN 08/19/2023 3:13 AM COMPOSITE ASSEMBLER LABORATORY Blood Urine Negative Negative 08/19/2023 3:13 AM [facility] pH Urine 5.5 5.0 - 7.0 08/19/2023 3:13 AM [facility] Protein Albumin Urine Negative Negative mg/dL 08/19/2023 3:13 AM COM[facility]ITE [employer]SEM[employer]ER LABORATORY Urobilinogen Urine Normal Normal, 2.0 mg/dL 08/19/2023 3:13 AM [facility] Nitrite Urine Negative Negative 08/19/2023 3:13 AM [facility] Leukocyte Esterase Urine Negative Negative 08/19/2023 3:13 AM [facility] Mucus Urine Present(A) None Seen /LPF 08/19/2023 3:13 AM [facility] RBC Urine 1 <=2 /HPF 08/19/2023 3:13 AM [facility] WBC Urine 1 <=5 /HPF 08/19/2023 3:13 AM [facility] Urine URINE SPECIMEN OBTAINED BY CLEAN CATCH PROCEDURE / Unknown Non-blood Collection / Unknown 08/19/2023 2:55 AM COMPOSITE ASSEMBLER 08/19/2023 3:05 AM COMPOSITE ASSEMBLER [facility] LABORATORY - 08/19/2023 3:13 AM COMPOSITE ASSEMBLER Urine Culture not indicated Jun Leone MD LAB - URINE OR DERABLES LABORATORY [facility] [address], [address] [place] [address], [facility] [phone] * (ABNORMAL) C. difficile Antigen and Toxins A/B by Enzyme Immunoassay (08/18/2023 11:41 PM COMPOSITE ASSEMBLER) C. difficile GDH Antigen Positive(A ) Negative STEPHEN 08/19/2023 6:00 AM COMPOSITE ASSEMBLER [facility] C. difficile Toxin Positive(A ) Negative STEPHEN 08/19/2023 6:00 AM COMPOSITE ASSEMBLER [facility] Stool RECTAL CONTENTS / Unknown Non-blood Collection / Unknown 08/18/2023 11:41 PM COMPOSITE ASSEMBLER 08/18/2023 11:51 PM COMPOSITE ASSEMBLER Narrative [facility] - 08/19/2023 6:00 AM COMPOSITE ASSEMBLER C. difficile GDH antigen and C. difficile toxin were detected by enzyme immunoassay. Results must be interpreted based on clinical findings and are supportive of C. difficile infection. Luisa Mendoza MD LAB - MICRO GENERAL ORDERABLES [facility] Inf. Diseases Diag. Lab [address] [facility], [address] [place] [address], [facility] [phone] * (ABNORMAL) C. difficile Toxin B PCR with reflex to C. difficile Antigen and Toxins A/B EIA (08/18/2023 11:41 PM COMPOSITE ASSEMBLER) [facility] C Difficile Toxin B by PCR Positive( A) Negative 08/19/2023 5:02 AM COMPOSITE ASSEMBLER [facility] Comment: Detection of C. [...] Non-blood Collection / Unknown 08/18/2023 11:41 PM COMPOSITE ASSEMBLER 08/18/2023 11:51 PM COMPOSITE ASSEMBLER Narrative [facility] - 08/19/2023 5:02 AM COMPOSITE ASSEMBLER The [employer] Xpert C. difficile Assay, performed on the YesGraph?? Instrument Systems, is a qualitative in vitro [...] - MICRO GENERAL ORDERABLES [facility] Inf. Diseases Diag. Lab [address] [facility], [address] [place] [address], [facility] [phone] * CT Abdomen Pelvis w/o & w Contrast (08/18/2023 8:56 PM COMPOSITE ASSEMBLER) Anatomical Region Laterality Modality Abdomen/Pelvis, SUBRAD CT SISSY DY, UMP CT ABDOMEN PELVIS, RAD CT Computed Tomography 08/18/2023 8:56 PM COMPOSITE ASSEMBLER Impressions 08/18/2023 9:14 PM COMPOSITE ASSEMBLER IMPRESSION: 1. ??Pancolitis, likely infectious or inflammatory. [...] Correlate with urinalysis. Narrative 08/18/2023 9:14 PM COMPOSITE ASSEMBLER EXAM: CT ABDOMEN PELVIS W/O and W CONTRAST LOCATION: [facility] DATE: 08/18/2023 INDICATION: Diarrhea. Concern for [...] ABDOMEN PELVIS W/O and W CONTRAST LOCATION: [facility] DATE: 08/18/2023 INDICATION: Diarrhea. Concern for [...] cystitis. Correlate with urinalysis. Luisa Mendoza MD [facility] CT ORDERABLES * (ABNORMAL) CBC with platelets and differential (08/18/2023 7:11 PM COMPOSITE ASSEMBLER) WBC Count 17.1(H) 4.0 - 11.0 10e3/uL 08/18/2023 7:50 PM [facility] RBC Count 4.19(L) 4.40 - 5.90 10e6/uL 08/18/2023 7:50 PM COMPOSITE ASSEMBLER LABORATORY Hemoglobin 12.8(L) 13.3 - 17.7 g/dL 08/18/2023 7:50 PM [facility] Hematocrit 38.2(L) 40.0 - 53.0 % 08/18/2023 7:50 PM [facility] MCV 91 78 - 100 fL 08/18/2023 7:50 PM [facility] MCH 30.5 26.5 - 33.0 pg 08/18/2023 7:50 PM [facility] MCHC 33.5 31.5 - 36.5 g/dL 08/18/2023 7:50 PM [facility] RDW 13.9 10.0 - 15.0 % 08/18/2023 7:50 PM [facility] Platelet Count 117(L) 150 - 450 10e3/uL 08/18/2023 7:50 PM COMPOSITE ASSEMBLER LABORATORY % Neutrophils 76 % 08/18/2023 7:50 PM COMPOSITE ASSEMBLER LABORATORY % Lymphocytes 16 % 08/18/2023 7:50 PM COMPOSITE ASSEMBLER LABORATORY % Monocytes 5 % 08/18/2023 7:50 PM COMPOSITE ASSEMBLER LABORATORY % Eosinophils 2 % 08/18/2023 7:50 PM COMPOSITE ASSEMBLER LABORATORY % Basophils 0 % 08/18/2023 7:50 PM [facility] % Immature Granulocytes 1 % 08/18/2023 7:50 PM [facility] NRBCs per 100 WBC 0 <1 /100 024 7:50 PM [facility] Absolute Neutrophils 13.1(H) 1.6 - 8.3 10e3/uL 08/18/2023 7:50 PM [facility] Absolute Lymphocytes 2.7 0.8 - 5.3 10e3/uL 08/18/2023 7:50 PM [facility] Absolute Monocytes 0.8 0.0 - 1.3 10e3/uL 08/18/2023 7:50 PM [facility] Absolute Eosinophils 0.3 0.0 - 0.7 10e3/uL 08/18/2023 7:50 PM [facility] Absolute Basophils 0.1 0.0 - 0.2 10e3/uL 08/18/2023 7:50 PM [facility] Absolute Immature Granulocytes 0.2 <=0.4 10e3/uL 08/18/2023 7:50 PM [facility] Absolute NRBCs 0.0 10e3/uL 08/18/2023 7:50 PM [facility] Blood BLOOD SPECIMEN / Unknown Venipuncture / Unknown 08/18/2023 7:11 PM [facility] 08/18/2023 7:42 PM [facility] Luisa Mendoza MD LAB - BLOOD ORDERABL ES LABORATORY [facility] [address], [address] [place] [address], [place] [phone] * Comprehensive metabolic panel (08/18/2023 7:11 PM [employer] [employer]) [facility] Sodium 140 135 - 145 mmol/L 08/18/2023 8:14 PM [facility] Comment:Reference intervals for this test were updated on 04/20/2023 to more accurately reflect our healthy population. There may be differences in the flagging of prior results with similar values performed with this method. Interpretation of those prior results can be made in the context of the updated reference intervals. Potassium 3.8 3.4 - 5.3 mmol/L 08/18/2023 8:14 PM [facility] [facility] Carbon Dioxide (CO2) 25 22 - 29 mmol/L 08/18/2023 8:14 PM [facility] Anion Gap 11 7 - 15 mmol/L 08/18/2023 8:14 PM [facility] Urea Nitrogen 16.8 8.0 - 23.0 mg/dL 08/18/2023 8:14 PM [facility] Creatinine 0.80 0.67 - 1.17 mg/dL 08/18/2023 8:14 PM [facility] GFR Estimate 90 >60 mL/min/1. 73m2 08/18/2023 8:14 PM [facility] Calcium 9.0 8.8 - 10.2 mg/dL 08/18/2023 8:14 PM [facility] Chloride 104 98 - 107 mmol/L 08/18/2023 8:14 PM [facility] Glucose 82 70 - 99 mg/dL 08/18/2023 8:14 PM [facility] Alkaline Phosphatase 86 40 - 150 U/L 08/18/2023 8:14 PM [facility] Comment:Reference intervals for this test were updated on 06/08/2023 to more accurately reflect our healthy population. There may be differences in the flagging of prior results with similar values performed with this method. Interpretation of those prior results can be made in the context of the updated reference intervals. AST 23 0 - 45 U/L 08/18/2023 8:14 PM [facility] Comment:Reference intervals for this test were updated on 01/04/2023 to more accurately reflect our healthy population. There may be differences in the flagging of prior results with similar values performed with this method. Interpretation of those prior results can be made in the context of the updated reference intervals. ALT 22 0 - 70 U/L 08/18/2023 8:14 PM [facility] Comment:Reference intervals for this test were updated on 01/04/2023 to more accurately reflect our healthy population. There may be differences in the flagging of prior results with similar values performed with this method. Interpretation of those prior results can be made in the context of the updated reference intervals. Protein Total 6.7 6.4 - 8.3 g/dL 08/18/2023 8:14 PM [facility] Albumin 3.5 3.5 - 5.2 g/dL 08/18/2023 8:14 PM [facility] Bilirubin Total 0.5 <=1.2 mg/dL 08/18/2023 8:14 PM [facility] Blood BLOOD SPECIMEN / Unknown Venipuncture / Unknown 08/18/2023 7:11 PM [facility] 08/18/2023 7:42 PM [facility] Luisa Mendoza MD LAB - BLOOD ORDERABL ES [facility] [address], [address] [place] [address], [facility] [phone] * Magnesium (08/18/2023 7:11 PM [facility]) [facility] Magnesium 2.1 1.7 - 2.3 mg/dL 08/18/2023 8:14 PM [facility] Blood BLOOD SPECIMEN / Unknown Venipuncture / Unknown 08/18/2023 7:11 PM [facility] 08/18/2023 7:42 PM [facility] Luisa Mendoza MD LAB - BLOOD ORDERABL ES [facility] [address], [address] [place] [address], [facility] [phone] documented in this encounter Visit Diagnoses Diagnosis C. difficile colitis- Primary Intestinal infection due to clostridium difficile Pancolitis (H) Sims ulcerative (chronic) colitis Intra-abdominal abscess (H) Peritoneal abscess C. difficile colitis Intestinal infection due to clostridium difficile Clostridioides difficile infection Pancolitis (H) Sims ulcerative (chronic) colitis Intra-abdominal abscess (H) Peritoneal abscess documented in this encounter Admitting Diagnoses Diagnosis C. difficile colitis Intestinal infection due to clostridium difficile documented in this encounter Administered Medications Inactive Administered Medications - up to 3 most recent administrations Medication Order MAR Action Action Date Dose Rate Site acetaminophen (TYLENOL) Suppository 650 mg 650 mg, Rectal, EVERY 4 HOURS PRN, mild pain, other, and adjunct with moderate or severe pain or per patient request, Starting on Bree 08/19/23 at 0244, Alternate with ibuprofen if ordered. Maximum acetaminophen dose from all sources = 75 mg/kg/day not to exceed 4 grams/day. acetaminophen (TYLENOL) tablet 650 mg 650 mg, Oral, EVERY 4 HOURS PRN, mild pain, other, and adjunct with moderate or severe pain or per patient request, Starting on Bree 08/19/23 at 0244, Alternate with ibuprofen if ordered. Maximum acetaminophen dose from all sources = 75 mg/kg/day not to exceed 4 grams/day. $Given 08/19/2023 10:05 PM [facility] [employer] 650 mg ALPRAZolam (XANAX) tablet 0.5 mg 0.5 mg, Oral, 2 TIMES DAILY PRN, anxiety, Starting on Wed08/19/23 at 0242, Avoid taking with grapefruit juice $Given 08/20/2023 7:36 AM [facility] [employer] 0.5 mg calcium carbonate (TUMS) chewable tablet 1,000 mg 1,000 mg, Oral, 4 TIMES DAILY PRN, heartburn, Starting on Wed08/19/23 at 0243 $Given 08/20/2023 9:48 PM [facility] [employer] 1,000 mg fidaxomicin (DIFICID) tablet 200 mg STAT, 200 mg, Oral, ONCE, On Wed08/18/23 at 2250, For 1 dose, Indications: Clostridioides difficile $Given 08/18/2023 11:43 PM [facility] [employer] 200 mg fidaxomicin (DIFICID) tablet 200 mg Routine, 200 mg, Oral, 2 TIMES DAILY, First dose on Wed08/19/23 at 0900, ID consulted, will see 08/19, Indications: Clostridioides difficile $Given 08/21/2023 9:20 AM [facility] [employer] 200 mg $Given 08/20/2023 9:48 PM [facility] 200 mg $Given 08/20/2023 9:30 AM [facility] [employer] 200 mg hydrALAZINE (APRESOLINE) injection 10 mg 10 mg, Intravenous, EVERY 4 HOURS PRN, high blood pressure, for systolic BP greater than 180 mmHg, Administer over 1 Minutes, Starting on Wed08/19/23 at 0244 hydrALAZINE (APRESOLINE) tablet 10 mg 10 mg, Oral, EVERY 4 HOURS PRN, high blood pressure, for systolic BP greater than 180 mmHg, Starting on Wed08/19/23 at 0244 $Given 08/21/2023 11:14 AM [facility] [employer] 10 mg iopamidol (ISOVUE-370) solution 83 mL 83 mL, Intravenous, ONCE, On Wed08/18/23 at 2030, For 1 dose $Given 08/18/2023 8:42 PM [facility] 83 mLs lactobacillus rhamnosus (GG) (CULTURELL) capsule 1 capsule 1 capsule, Oral, DAILY, First dose on Wed08/21/23 at 0930, Administer at least 2 hours before or after oral antibiotics. Capsules may be opened. $Given 08/21/2023 10:41 AM [facility] 1 caps ule latanoprost (XALATAN) 0.005 % ophthalmic solution 1 drop 1 drop, Both Eyes, EVERY EVENING, First dose on Wed08/19/23 at 2000 $Given 08/19/2023 10:00 PM [facility] [employer] 1 drop lisinopril (ZESTRIL) tablet 20 mg 20 mg, Oral, DAILY, First dose on Wed08/19/23 at 0930 $Given 08/21/2023 9:19 AM [facility] [employer] 20 mg $Given 08/20/2023 9:30 AM [facility] [employer] 20 mg $Given 08/19/2023 9:15 AM [employer] [employer] 20 mg metroNIDAZOLE (FLAGYL) infusion 500 mg Routine, 500 mg, Intravenous, EVERY 8 HOURS, First dose on Wed08/19/23 at 0300, Do not refrigerate., Indications: Clostridioides difficile $New Bag 08/20/2023 10:39 AM [facility] [employer] 500 mg $New Bag 08/20/2023 2:50 AM [facility] 500 mg $New Bag 08/19/2023 6:12 PM [facility] [employer] 500 mg multivitamin w/minerals (THERA-VIT-M) tablet 1 tablet 1 tablet, Oral, EVERY 24 HOURS, First dose on Wed08/19/23 at 0930 $Given 08/21/2023 9:19 AM [employer] [employer] 1 tablet $Given 08/20/2023 9:30 AM [facility] 1 tablet $Given 08/19/2023 9:15 AM [facility] 1 tablet naloxone (NARCAN) injection 0.2 mg 0.2 mg, Intravenous, EVERY 2 MIN PRN, opioid reversal, Starting on Bree 08/19/23 at 0241, Administer intravenous route when available and notify provider when administered. For unintended sedation or respiratory depression if all of the below criteria are met: ~ respiratory rate LESS than or EQUAL to 8. ~SaO2 less than 92% and or/end-tidal CO2 is greater than 50. ~ the patient is receiving an opioid, has unintended sedations assessed as RASS (-3), and is currently not on mechanical ventilation. RASS scale moderate (-3) is movement or eye opening to voice but no eye contact. Patient Monitoring Once the patient has demonstrated a response to the naloxone, continue to monitor respiratory rate, depth, oxygen saturation and end-tidal CO2 (if available) every 15 minutes x 2, then every 30 minutes x 2, then every 1 hour x 1 after each naloxone dose. Consider transfer to ICU if patient respiratory parameters have not improved after 4 naloxone doses. naloxone (NARCAN) injection 0.2 mg 0.2 mg, Intramuscular, EVERY 2 MIN PRN, opioid reversal, Starting on Bree 08/19/23 at 0241, Administer intramuscular if an intravenous route is not available and notify provider when administered. For unintended sedation or respiratory depression if all of the below criteria are met: ~ respiratory rate LESS than or EQUAL to 8. ~SaO2 less than 92% and or/end-tidal CO2 is greater than 50. ~ the patient is receiving an opioid, has unintended sedations assessed as RASS (-3), and is currently not on mechanical ventilation. RASS scale moderate (-3) is movement or eye opening to voice but no eye contact. Patient Monitoring Once the patient has demonstrated a response to the naloxone, continue to monitor respiratory rate, depth, oxygen saturation and end-tidal CO2 (if available) every 15 minutes x 2, then every 30 minutes x 2, then every 1 hour x 1 after each naloxone dose. Consider transfer to ICU if patient respiratory parameters have not improved after 4 naloxone doses. naloxone (NARCAN) injection 0.4 mg 0.4 mg, Intravenous, EVERY 2 MIN PRN, opioid reversal, Starting on Bree 08/19/23 at 0241, Administer intravenous route when available and notify provider when administered. For unintended sedation or respiratory depression if all of the below criteria are met: ~ respiratory rate LESS than or EQUAL to 8. ~ SaO2 less than 92% and or/end-tidal CO2 is greater than 50. ~ the patient is receiving an opioid, has unintended sedation assessed as RASS (-4) or (-5) and patient is currently not on mechanical ventilation. RASS scale (-4) is deep sedation with no response to voice but movement or eye opening to physical stimulation. RASS scale (-5) is unarousable. Patient Monitoring Once the patient has demonstrated a response to the naloxone, continue to monitor respiratory rate, depth, oxygen saturation and end-tidal CO2 (if available) every 15 minutes x 2, then every 30 minutes x 2, then every 1 hour x 1 after each naloxone dose. Consider transfer to ICU if patient respiratory parameters have not improved after 4 naloxone doses. naloxone (NARCAN) injection 0.4 mg 0.4 mg, Intramuscular, EVERY 2 MIN PRN, opioid reversal, Starting on Bree 08/19/23 at 0241, Administer intramuscular if an intravenous route is not available and notify provider when administered. For unintended sedation or respiratory depression if all of the below criteria are met: ~ respiratory rate LESS than or EQUAL to 8. ~ SaO2 less than 92% and or/end-tidal CO2 is greater than 50. ~ the patient is receiving an opioid, has unintended sedation assessed as RASS (-4) or (-5) and patient is currently not on mechanical ventilation. RASS scale (-4) is deep sedation with no response to voice but movement or eye opening to physical stimulation. RASS scale (-5) is unarousable. Patient Monitoring Once the patient has demonstrated a response to the naloxone, continue to monitor respiratory rate, depth, oxygen saturation and end-tidal CO2 (if available) every 15 minutes x 2, then every 30 minutes x 2, then every 1 hour x 1 after each naloxone dose. Consider transfer to ICU if patient respiratory parameters have not improved after 4 naloxone doses. nicotine (NICODERM CQ) 21 MG/24HR 24 hr patch 1 patch 1 patch, Transdermal, DAILY, Administer over 24 Hours, First dose on Bree 08/19/23 at 0900, Reminder: Remove previous patch before applying new patch. $Patch/Med Applied 08/21/2023 9:21 AM [facility] 1 patch Left Arm $Patch/Med Applied 08/20/2023 9:30 AM [facility] 1 patch Right Arm $Patch/Med Applied 08/19/2023 9:16 AM [facility]ITE [facility]ER 1 patch Left Arm nicotine Patch in Place First dose on Wed08/19/23 at 0300, Chart every shift, confirming that patch is still in place on patient (no barcode scan needed). See patch order for dose information. ondansetron (ZOFRAN ODT) ODT tab 4 mg 4 mg, Oral, EVERY 6 HOURS PRN, nausea, vomiting, Starting on Wed08/19/23 at 0244, This is Step 1 of nausea and vomiting management. If nausea not resolved in 15 minutes, go to Step 2 prochlorperazine (COMPAZINE). With dry hands, peel back foil backing and gently remove tablet. Do not push oral disintegrating tablet through foil backing. Administer immediately on tongue and oral disintegrating tablet dissolves in seconds, then swallow with saliva. Liquid not required. ondansetron (ZOFRAN) injection 4 mg 4 mg, Intravenous, EVERY 6 HOURS PRN, nausea, vomiting, Administer over 2-5 Minutes, Starting on Wed08/19/23 at 0244, Give IF patient unable to tolerate oral medication. This is Step 1 of nausea and vomiting management. If nausea not resolved in 15 minutes, go to Step 2 prochlorperazine (COMPAZINE). Irritant. potassium chloride ER (KLOR-CON M) CR tablet 40 mEq 40 mEq, Oral, ONCE, On Wed08/20/23 at 0900, For 1 dose, Potassium level 3.1 - 3.4 mmol/L Ordered from the Potassium replacement order set. DO NOT CRUSH, Potassium Replacement: Potassium level 3.1-3.4 mmol/L, Recheck: Potassium level 4 hours AFTER last oral dose $Given 08/20/2023 9:30 AM [facility] [employer] 40 mEq potassium chloride ER (KLOR-CON M) CR tablet 40 mEq 40 mEq, Oral, ONCE, On Wed08/21/23 at 1000, For 1 dose, Potassium level 3.1 - 3.4 mmol/L Ordered from the Potassium replacement order set. DO NOT CRUSH, Potassium Replacement: Potassium level 3.1-3.4 mmol/L, Recheck: Potassium level 4 hours AFTER last oral dose $Given 08/21/2023 10:41 AM [facility] 40 mEq Saline As instructed, 63 mL, ONCE, On Wed08/18/23 at 2030, For 1 dose, This entry is for use by Radiology to intermittently used as a flush in patients receiving a CT scan. $Given 08/18/2023 8:41 PM [facility] 63 mL s simvastatin (ZOCOR) tablet 20 mg 20 mg, Oral, AT BEDTIME, First dose on Wed08/19/23 at 2200 $Given 08/20/2023 9:48 PM [facility] 20 mg $Given 08/19/2023 10:00 PM [facility] 20 mg sodium chloride (PF) 0.9% PF flush 3 mL 3 mL, Intracatheter, EVERY 8 HOURS, First dose on Wed08/19/23 at 0300, to lock peripheral IV dormant line $Given 08/21/2023 10:43 AM [facility] 3 mLs $Given 08/21/2023 2:34 AM [facility] 3 mLs sodium chloride 0.9 % infusion at 100 mL/hr, Intravenous, CONTINUOUS, Starting on Wed08/19/23 at 0130, Until Wed08/20/23 at 1036 $New Bag 08/19/2023 12:48 PM [facility] 100 mL/hr $New Bag 08/19/2023 1:21 AM [facility]ITE [employer]ER 100 mL/hr traMADol (ULTRAM) tablet 50 mg 50 mg, Oral, EVERY 6 HOURS PRN, moderate pain, Starting on Wed08/19/23 at 0240 $Given 08/19/2023 6:33 PM [facility] 50 mg $Given 08/19/2023 10:14 AM [employer]ITE [employer]ER 50 mg traMADol (ULTRAM) tablet 50 mg 50 mg, Oral, ONCE, On Wed08/19/23 at 0300, For 1 dose $Given 08/19/2023 2:47 AM [facility] [employer]ER 50 mg documented in this encounter Active and Recently Administered Medications Times are shown in [facility]. Scheduled Medication Order 08/19/2023 08/20/2023 08/21/2023 fidaxomicin (DIFICID) tablet 200 mg Routine, 200 mg, Oral, 2 TIMES DAILY, First dose on Wed08/19/23 at 0900, ID consulted, will see 08/19, Indications: Clostridioides difficile 1247 ($Given - Provider: Brandi A Byron, RN)2200 ($Given - Provider: Luba Olivo RN) 0930 ($Given - Provider: Anna Tucker, MEDHAT)2148 ($Given - Provider: Carmenza Thompson, MEDHAT) 0920 ($Given - Provider: Agustín Prince, MEDHAT) lactobacillus rhamnosus (GG) (CULTURELL) capsule 1 capsule 1 capsule, Oral, DAILY, First dose on 08/21/23 at 0930, Administer at least 2 hours before or after oral antibiotics. Capsules may be opened. 1041 ($Given - Provider: Agustín Prince, MEDHAT) latanoprost (XALATAN) 0.005 % ophthalmic solution 1 drop 1 drop, Both Eyes, EVERY EVENING, First dose on Bree 08/19/23 at 2000 2200 ($Given - Provider: Luba Olivo RN) 2150 (Not Given - Provider: Carmenza Thompson RN - Reason: Patient/family refused) lisinopril (ZESTRIL) tablet 20 mg 20 mg, Oral, DAILY, First dose on Bree 08/19/23 at 0930 0915 ($Given - Provider: Brandi Matthews RN) 0930 ($Given - Provider: Anna Tucker RN) 0919 ($Given - Provider: Agustín Prince RN) metroNIDAZOLE (FLAGYL) infusion 500 mg (CANCELED) Routine, 500 mg, Intravenous, EVERY 8 HOURS, First dose on Bree 08/19/23 at 0300, Do not refrigerate., Indications: Clostridioides difficile 0345 ($New Bag - Provider: Aurea New RN)1455 ($New Bag - Provider: Brandi Matthews RN)1812 ($New Bag - Provider: Elizabeth Moran RN) 0250 ($New Bag - Provider: Anu Munoz RN)1039 ($New Bag - Provider: Anna Tucker RN) multivitamin w/minerals (THERA-VIT-M) tablet 1 tablet 1 tablet, Oral, EVERY 24 HOURS, First dose on Bree 08/19/23 at 0930 0915 ($Given - Provider: Brandi Matthews RN) 0930 ($Given - Provider: Anna Tucker RN) 0919 ($Given - Provider: Agustín Prince RN) nicotine (NICODERM CQ) 21 MG/24HR 24 hr patch 1 patch 1 patch, Transdermal, DAILY, Administer over 24 Hours, First dose on Wed08/19/23 at 0900, Reminder: Remove previous patch before applying new patch. 0916 ($Patch/Med Applied - Provider: Brandi Matthews RN) 0930 ($Patch/Med Applied - Provider: Anna Tucker, RN)0931 (Patch/Med Removed - Provider: Anna Tucker RN) 0907 (Patch/Med Removed - Provider: Agustín Prince RN)0921 ($Patch/Med Applied - Provider: Agustín Prince, MEDHAT)1351 (Due: Patch/Med Removed - Provider: Orders Generic Provider - Comment: Time automatically adjusted from order being discontinued) nicotine Patch in Place First dose on Wed08/19/23 at 0300, Chart every shift, confirming that patch is still in place on patient (no barcode scan needed). See patch order for dose information. 0249 (Patch Free Period - Provider: Aurea New RN)1133 (Patch in Place - Provider: Brandi Matthews RN)1813 (Patch in Place - Provider: Elizabeth Moran, MEDHAT) 0250 (Patch in Place - Provider: Anu Munoz RN)1013 (Patch in Place - Provider: Anna Tucker RN)2141 (Patch in Place - Provider: Carmenza Thompson, MEDHAT) 0235 (Patch in Place - Provider: Azeem Vega, MEDHAT)1027 (Patch in Place - Provider: Agustín Prince, MEDHAT) potassium chloride ER (KLOR-CON M) CR tablet 40 mEq (COMPLETED) 40 mEq, Oral, ONCE, On Wed08/20/23 at 0900, For 1 dose, Potassium level 3.1 - 3.4 mmol/L Ordered from the Potassium replacement order set. DO NOT CRUSH, Potassium Replacement: Potassium level 3.1-3.4 mmol/L, Recheck: Potassium level 4 hours AFTER last oral dose 0930 ($Given - Provider: Anna Tucker RN) potassium chloride ER (KLOR-CON M) CR tablet 40 mEq (COMPLETED) 40 mEq, Oral, ONCE, On Wed08/21/23 at 1000, For 1 dose, Potassium level 3.1 - 3.4 mmol/L Ordered from the Potassium replacement order set. DO NOT CRUSH, Potassium Replacement: Potassium level 3.1-3.4 mmol/L, Recheck: Potassium level 4 hours AFTER last oral dose 1041 ($Given - Provider: Agustín Prince, MEDHAT) simvastatin (ZOCOR) tablet 20 mg 20 mg, Oral, AT BEDTIME, First dose on Bree 08/19/23 at 2200 2200 ($Given - Provider: Luba Olivo, MEDHAT) 2148 ($Given - Provider: Carmenza Thompson, MEDHAT) sodium chloride (PF) 0.9% PF flush 3 mL 3 mL, Intracatheter, EVERY 8 HOURS, First dose on Wed08/19/23 at 0300, to lock peripheral IV dormant line 0248 (Not Given - Provider: Aurea New RN - Reason: IV Infusing)1134 (Not Given - Provider: Brandi Matthews RN - Reason: IV Infusing)1812 (Not Given - Provider: Elizabeth Moran RN - Reason: IV Infusing) 0251 (Not Given - Provider: Anu Munoz RN - Reason: IV Infusing)1013 (Not Given - Provider: Anna Tucker, MEDHAT - Reason: IV Infusing)2149 (Canceled Entry - Provider: Carmenza Thompson, MEDHAT) 0234 ($Given - Provider: Azeem Vega, MEDHAT)1043 ($Given - Provider: Agustín Prince, MEDHAT) traMADol (ULTRAM) tablet 50 mg (COMPLETED) 50 mg, Oral, ONCE, On Bree 08/19/23 at 0300, For 1 dose 0247 ($Given - Provider: Aurea New, MEDHAT) Continuous Medication Order 08/19/2023 08/20/2023 08/21/2023 sodium chloride 0.9 % infusion (CANCELED) at 100 mL/hr, Intravenous, CONTINUOUS, Starting on Bree 08/19/23 at 0130, Until Wed08/20/23 at 1036 0121 ($New Bag - Provider: Aurea New, MEDHAT)1248 ($New Bag - Provider: Brandi Matthews RN) 1036 (Stopped - Provider: Anna Tucker RN) PRN Medication Order 08/19/2023 08/20/2023 08/21/2023 acetaminophen (TYLENOL) Suppository 650 mg(Linked Group 1) 650 mg, Rectal, EVERY 4 HOURS PRN, mild pain, other, and adjunct with moderate or severe pain or per patient request, Starting on Bree 08/19/23 at 0244, Alternate with ibuprofen if ordered. Maximum acetaminophen dose from all sources = 75 mg/kg/day not to exceed 4 grams/day. 220 (See Alternative - Provider: Odette Ramirez Do, RN) acetaminophen (TYLENOL) tablet 650 mg(Linked Group 1) 650 mg, Oral, EVERY 4 HOURS PRN, mild pain, other, and adjunct with moderate or severe pain or per patient request, Starting on Bree 08/19/23 at 0244, Alternate with ibuprofen if ordered. Maximum acetaminophen dose from all sources = 75 mg/kg/day not to exceed 4 grams/day. 220 ($Given - Provider: Odette Ramirez Do, RN) ALPRAZolam (XANAX) tablet 0.5 mg 0.5 mg, Oral, 2 TIMES DAILY PRN, anxiety, Starting on Bree 08/19/23 at 0242, Avoid taking with grapefruit juice 0736 ($Given - Provider: Anna Tucker RN) calcium carbonate (TUMS) chewable tablet 1,000 mg 1,000 mg, Oral, 4 TIMES DAILY PRN, heartburn, Starting on Bree 08/19/23 at 0243 2148 ($Given - Provider: Carmenza Thompson RN) hydrALAZINE (APRESOLINE) injection 10 mg(Linked Group 2) 10 mg, Intravenous, EVERY 4 HOURS PRN, high blood pressure, for systolic BP greater than 180 mmHg, Administer over 1 Minutes, Starting on Bree 08/19/23 at 0244 1114 (See Alternative - Provider: Agustín Prince, MEDHAT) hydrALAZINE (APRESOLINE) tablet 10 mg(Linked Group 2) 10 mg, Oral, EVERY 4 HOURS PRN, high blood pressure, for systolic BP greater than 180 mmHg, Starting on Bree 08/19/23 at 0244 1114 ($Given - Provider: Agustín Prince, MEDHAT) lidocaine (LMX4) cream Topical, EVERY 1 HOUR PRN, pain, with VAD insertion, Starting on Bree 08/19/23 at 0243, Apply at least 30 minutes prior to VAD insertion in divided doses as needed for size of site for insertion. MAX Dose: 2.5 g (?? of 5 g tube) Do NOT give if patient has a history of allergy to any local anesthetic or any luis alfredo product. Do NOT use both lidocaine intradermal/subcutaneous injection and the lidocaine cream on the same site. lidocaine 1 % 0.1-1 mL 0.1-1 mL, Other, EVERY 1 HOUR PRN, mild pain with VAD insertion, Starting on Bree 08/19/23 at 0243, MAX dose 1 mL subcutaneous OR intradermal along the side of the vein in divided doses as needed for VAD insertion. Do NOT give if patient has a history of allergy to any local anesthetic or any luis alfredo product. Do NOT use both lidocaine intradermal/subcutaneous injection and the lidocaine cream on the same site. naloxone (NARCAN) injection 0.2 mg(Linked Group 3) 0.2 mg, Intravenous, EVERY 2 MIN PRN, opioid reversal, Starting on Bree 08/19/23 at 0241, Administer intravenous route when available and notify provider when administered. For unintended sedation or respiratory depression if all of the below criteria are met: ~ respiratory rate LESS than or EQUAL to 8. ~SaO2 less than 92% and or/end-tidal CO2 is greater than 50. ~ the patient is receiving an opioid, has unintended sedations assessed as RASS (-3), and is currently not on mechanical ventilation. RASS scale moderate (-3) is movement or eye opening to voice but no eye contact. Patient Monitoring Once the patient has demonstrated a response to the naloxone, continue to monitor respiratory rate, depth, oxygen saturation and end-tidal CO2 (if available) every 15 minutes x 2, then every 30 minutes x 2, then every 1 hour x 1 after each naloxone dose. Consider transfer to ICU if patient respiratory parameters have not improved after 4 naloxone doses. naloxone (NARCAN) injection 0.2 mg(Linked Group 3) 0.2 mg, Intramuscular, EVERY 2 MIN PRN, opioid reversal, Starting on Bree 08/19/23 at 0241, Administer intramuscular if an intravenous route is not available and notify provider when administered. For unintended sedation or respiratory depression if all of the below criteria are met: ~ respiratory rate LESS than or EQUAL to 8. ~SaO2 less than 92% and or/end-tidal CO2 is greater than 50. ~ the patient is receiving an opioid, has unintended sedations assessed as RASS (-3), and is currently not on mechanical ventilation. RASS scale moderate (-3) is movement or eye opening to voice but no eye contact. Patient Monitoring Once the patient has demonstrated a response to the naloxone, continue to monitor respiratory rate, depth, oxygen saturation and end-tidal CO2 (if available) every 15 minutes x 2, then every 30 minutes x 2, then every 1 hour x 1 after each naloxone dose. Consider transfer to ICU if patient respiratory parameters have not improved after 4 naloxone doses. naloxone (NARCAN) injection 0.4 mg(Linked Group 3) 0.4 mg, Intravenous, EVERY 2 MIN PRN, opioid reversal, Starting on Bree 08/19/23 at 0241, Administer intravenous route when available and notify provider when administered. For unintended sedation or respiratory depression if all of the below criteria are met: ~ respiratory rate LESS than or EQUAL to 8. ~ SaO2 less than 92% and or/end-tidal CO2 is greater than 50. ~ the patient is receiving an opioid, has unintended sedation assessed as RASS (-4) or (-5) and patient is currently not on mechanical ventilation. RASS scale (-4) is deep sedation with no response to voice but movement or eye opening to physical stimulation. RASS scale (-5) is unarousable. Patient Monitoring Once the patient has demonstrated a response to the naloxone, continue to monitor respiratory rate, depth, oxygen saturation and end-tidal CO2 (if available) every 15 minutes x 2, then every 30 minutes x 2, then every 1 hour x 1 after each naloxone dose. Consider transfer to ICU if patient respiratory parameters have not improved after 4 naloxone doses. naloxone (NARCAN) injection 0.4 mg(Linked Group 3) 0.4 mg, Intramuscular, EVERY 2 MIN PRN, opioid reversal, Starting on Bree 08/19/23 at 0241, Administer intramuscular if an intravenous route is not available and notify provider when administered. For unintended sedation or respiratory depression if all of the below criteria are met: ~ respiratory rate LESS than or EQUAL to 8. ~ SaO2 less than 92% and or/end-tidal CO2 is greater than 50. ~ the patient is receiving an opioid, has unintended sedation assessed as RASS (-4) or (-5) and patient is currently not on mechanical ventilation. RASS scale (-4) is deep sedation with no response to voice but movement or eye opening to physical stimulation. RASS scale (-5) is unarousable. Patient Monitoring Once the patient has demonstrated a response to the naloxone, continue to monitor respiratory rate, depth, oxygen saturation and end-tidal CO2 (if available) every 15 minutes x 2, then every 30 minutes x 2, then every 1 hour x 1 after each naloxone dose. Consider transfer to ICU if patient respiratory parameters have not improved after 4 naloxone doses. nitroGLYcerin (NITROSTAT) sublingual tablet 0.4 mg 0.4 mg, Sublingual, EVERY 5 MIN PRN, chest pain, Starting on Bree 08/19/23 at 0900 ondansetron (ZOFRAN ODT) ODT tab 4 mg(Linked Group 4) 4 mg, Oral, EVERY 6 HOURS PRN, nausea, vomiting, Starting on Bree 08/19/23 at 0244, This is Step 1 of nausea and vomiting management. If nausea not resolved in 15 minutes, go to Step 2 prochlorperazine (COMPAZINE). With dry hands, peel back foil backing and gently remove tablet. Do not push oral disintegrating tablet through foil backing. Administer immediately on tongue and oral disintegrating tablet dissolves in seconds, then swallow with saliva. Liquid not required. ondansetron (ZOFRAN) injection 4 mg(Linked Group 4) 4 mg, Intravenous, EVERY 6 HOURS PRN, nausea, vomiting, Administer over 2-5 Minutes, Starting on Bree 08/19/23 at 0244, Give IF patient unable to tolerate oral medication. This is Step 1 of nausea and vomiting management. If nausea not resolved in 15 minutes, go to Step 2 prochlorperazine (COMPAZINE). Irritant. sodium chloride (PF) 0.9% PF flush 3 mL 3 mL, Intracatheter, EVERY 1 MIN PRN, line flush, other, to ensure patency or to lock dormant line, Starting on Bree 08/19/23 at 0243 traMADol (ULTRAM) tablet 50 mg 50 mg, Oral, EVERY 6 HOURS PRN, moderate pain, Starting on Bree 08/19/23 at 0240 1014 ($Given - Provider: Brandi Matthews RN)[id number] ($Given - Provider: Elizabeth Moran RN) Linked Groups Order Group 1: acetaminophen (TYLENOL) tablet 650 mgJump to med 650 mg, Oral, EVERY 4 HOURS PRN, mild pain, other, and adjunct with moderate or severe pain or per patient request, Starting on Bere 08/19/23 at 0244, Alternate with ibuprofen if ordered. Maximum acetaminophen dose from all sources = 75 mg/kg/day not to exceed 4 grams/day. Or acetaminophen (TYLENOL) Suppository 650 mgJump to med 650 mg, Rectal, EVERY 4 HOURS PRN, mild pain, other, and adjunct with moderate or severe pain or per patient request, Starting on Bree 08/19/23 at 0244, Alternate with ibuprofen if ordered. Maximum acetaminophen dose from all sources = 75 mg/kg/day not to exceed 4 grams/day. Group 2: hydrALAZINE (APRESOLINE) tablet 10 mgJump to med 10 mg, Oral, EVERY 4 HOURS PRN, high blood pressure, for systolic BP greater than 180 mmHg, Starting on Bree 08/19/23 at 0244 Or hydrALAZINE (APRESOLINE) injection 10 mgJump to med 10 mg, Intravenous, EVERY 4 HOURS PRN, high blood pressure, for systolic BP greater than 180 mmHg, Administer over 1 Minutes, Starting on Bree 08/19/23 at 0244 Group 3: naloxone (NARCAN) injection 0.2 mgJump to med 0.2 mg, Intravenous, EVERY 2 MIN PRN, opioid reversal, Starting on Bree 08/19/23 at 0241, Administer intravenous route when available and notify provider when administered. For unintended sedation or respiratory depression if all of the below criteria are met: ~ respiratory rate LESS than or EQUAL to 8. ~SaO2 less than 92% and or/end-tidal CO2 is greater than 50. ~ the patient is receiving an opioid, has unintended sedations assessed as RASS (-3), and is currently not on mechanical ventilation. RASS scale moderate (-3) is movement or eye opening to voice but no eye contact. Patient Monitoring Once the patient has demonstrated a response to the naloxone, continue to monitor respiratory rate, depth, oxygen saturation and end-tidal CO2 (if available) every 15 minutes x 2, then every 30 minutes x 2, then every 1 hour x 1 after each naloxone dose. Consider transfer to ICU if patient respiratory parameters have not improved after 4 naloxone doses. Or naloxone (NARCAN) injection 0.4 mgJump to med 0.4 mg, Intravenous, EVERY 2 MIN PRN, opioid reversal, Starting on Bree 08/19/23 at 0241, Administer intravenous route when available and notify provider when administered. For unintended sedation or respiratory depression if all of the below criteria are met: ~ respiratory rate LESS than or EQUAL to 8. ~ SaO2 less than 92% and or/end-tidal CO2 is greater than 50. ~ the patient is receiving an opioid, has unintended sedation assessed as RASS (-4) or (-5) and patient is currently not on mechanical ventilation. RASS scale (-4) is deep sedation with no response to voice but movement or eye opening to physical stimulation. RASS scale (-5) is unarousable. Patient Monitoring Once the patient has demonstrated a response to the naloxone, continue to monitor respiratory rate, depth, oxygen saturation and end-tidal CO2 (if available) every 15 minutes x 2, then every 30 minutes x 2, then every 1 hour x 1 after each naloxone dose. Consider transfer to ICU if patient respiratory parameters have not improved after 4 naloxone doses. Or naloxone (NARCAN) injection 0.2 mgJump to med 0.2 mg, Intramuscular, EVERY 2 MIN PRN, opioid reversal, Starting on Bree 08/19/23 at 0241, Administer intramuscular if an intravenous route is not available and notify provider when administered. For unintended sedation or respiratory depression if all of the below criteria are met: ~ respiratory rate LESS than or EQUAL to 8. ~SaO2 less than 92% and or/end-tidal CO2 is greater than 50. ~ the patient is receiving an opioid, has unintended sedations assessed as RASS (-3), and is currently not on mechanical ventilation. RASS scale moderate (-3) is movement or eye opening to voice but no eye contact. Patient Monitoring Once the patient has demonstrated a response to the naloxone, continue to monitor respiratory rate, depth, oxygen saturation and end-tidal CO2 (if available) every 15 minutes x 2, then every 30 minutes x 2, then every 1 hour x 1 after each naloxone dose. Consider transfer to ICU if patient respiratory parameters have not improved after 4 naloxone doses. Or naloxone (NARCAN) injection 0.4 mgJump to med 0.4 mg, Intramuscular, EVERY 2 MIN PRN, opioid reversal, Starting on Bree 08/19/23 at 0241, Administer intramuscular if an intravenous route is not available and notify provider when administered. For unintended sedation or respiratory depression if all of the below criteria are met: ~ respiratory rate LESS than or EQUAL to 8. ~ SaO2 less than 92% and or/end-tidal CO2 is greater than 50. ~ the patient is receiving an opioid, has unintended sedation assessed as RASS (-4) or (-5) and patient is currently not on mechanical ventilation. RASS scale (-4) is deep sedation with no response to voice but movement or eye opening to physical stimulation. RASS scale (-5) is unarousable. Patient Monitoring Once the patient has demonstrated a response to the naloxone, continue to monitor respiratory rate, depth, oxygen saturation and end-tidal CO2 (if available) every 15 minutes x 2, then every 30 minutes x 2, then every 1 hour x 1 after each naloxone dose. Consider transfer to ICU if patient respiratory parameters have not improved after 4 naloxone doses. Group 4: ondansetron (ZOFRAN ODT) ODT tab 4 mgJump to med 4 mg, Oral, EVERY 6 HOURS PRN, nausea, vomiting, Starting on Bree 08/19/23 at 0244, This is Step 1 of nausea and vomiting management. If nausea not resolved in 15 minutes, go to Step 2 prochlorperazine (COMPAZINE). With dry hands, peel back foil backing and gently remove tablet. Do not push oral disintegrating tablet through foil backing. Administer immediately on tongue and oral disintegrating tablet dissolves in seconds, then swallow with saliva. Liquid not required. Or ondansetron (ZOFRAN) injection 4 mgJump to med 4 mg, Intravenous, EVERY 6 HOURS PRN, nausea, vomiting, Administer over 2-5 Minutes, Starting on Bree 08/19/23 at 0244, Give IF patient unable to tolerate oral medication. This is Step 1 of nausea and vomiting management. If nausea not resolved in 15 minutes, go to Step 2 prochlorperazine (COMPAZINE). Irritant. 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
--- OUTSIDE RECORDS SUMMARY | 2023-08-31 14:36 | XMS_ITS | Encounter Summary ---
Author Name Unknown Organization [facility] Address [address] [place] [address]. [place] [address] Care Team Providers Care Tin Dipper Name Role Phone No Ref-Primary, Physician Primary Care Provider Encounter Details Date Type Department Care Team (Late st Contact Info) Description 08/18/2023 Orders Only [facility] [address] [place] [address] Carlyn Barba MD [facility] [address] [id number] C. difficile diarrhea (Primary Dx) Social History Tobacco Use Types Packs/Day Years [...] on file documented as of this encounter Plan of Treatment Scheduled Orders Name Type Priority Associated Diagnoses Orde r Schedule CBC with Platelets & Differential Lab Panel Routine C. difficile diarrhea Expected: 08/18/2023 (Approximate), Expires: 08/16/2024 Comprehensive metabolic panel Lab Routine C. difficile diarrhea Expected: 08/18/2023 (Approximate), Expires: 08/16/2024 C. difficile Toxin B PCR with reflex to C. difficile Antigen and Toxins A/B EIA Microbiology Routine C. difficile diarrhea Expected: 08/18/2023 (Approximate), Expires: 08/16/2024 documented as of this encounter Visit Diagnoses Diagnosis C. difficile diarrhea- Primary Intestinal infection due to clostridium difficile documented in this encounter Additional Health Concerns Infection Onset Date Last Indicated Resolved Time Rule Out C-difficile 08/18/2023 08/18/2023 024 5:02 AM TRANSPORTATION LEAD C-difficile 08/18/2023 08/18/2023 documented as of this encounter Care Teams Tin Dipper Relationship Specialty Start Date End Date No Ref-Primary, Physician PCP - General 03/25/23 documented as of this encounter
--- OUTSIDE RECORDS SUMMARY | 2023-08-31 14:36 | XMS_ITS | Encounter Summary ---
Author Name Unknown Organization [facility] Address [address] [place] [address] Care Team Providers Care Historiography Teacher Name Role Phone No Ref-Primary, Physician Primary Care Provider 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] Procedures IA LAP,SURG,COLECTOMY, PARTIAL, W/ANAST IA LAP,SURG,COLECTOMY,W/REMVL TERM ILEUM IA LAP,SURG,COLECTOMY,W/END COLOST & CLOSUR IA LAP,SURG,COLECTOMY,W/ANAST IA LAP, SURG, COLECTOMY, W/ANAST, W/COLOSTOMY IA LAP,SURG,COLECTOMY,TOTAL,W/O PROCTECTOMY IA LAP,SURG,COLECTOMY,TOTAL,W/PROCT ECTOMY IA LAP,SURG,COLECT,TOT,W/PROCTECT,W /ILEOST IA CYSTOURETHROSCOPY W URETERAL CATH IA CYSTOURETHROSCOPY W URETERAL CATH IA CYSTOSCOPY,INSERT URETERAL STENT cystoscopy with bilateral ureteral catheter insertion [facility] [address] [place] [address] Referral ID Status Reason Start Date Expiration Date Visits Re quested Visits Authorized [id number] 1 1 Encounter Details Date Type Department Care Team (Latest Contact Info) Description 08/20/2023 Hospital Encounter [facility] [address] [place] [address] Mauricio Padilla MD [address] [place] [address] Colonic diverticular abscess Social History Tobacco Use Types Packs/Day Years [...] as of this encounter Plan of Treatment Not on file documented as of this encounter Visit Diagnoses Diagnosis Colonic diverticular abscess documented in this encounter Additional Health Concerns Infection Onset Date Last Indicated Resolved Time C-difficile 08/18/2023 08/18/2023 documented as of this encounter Care Teams Historiography Teacher Relationship Specialty Start Date End Date No Ref-Primary, Physician PCP - General 03/25/23 documented as of this encounter
--- OUTSIDE RECORDS SUMMARY | 2023-08-31 14:36 | XMS_ITS | Encounter Summary ---
Author Name Unknown Organization [facility] Address [address] [place] [address]. [place] [address] Care Team Providers Care Medical Scientist Name Role Phone No Ref-Primary, Physician Primary Care Provider Encounter Details Date Type Department Care Team (Latest Contact Info) Description 08/02/2023 Prep for Procedure [facility] [place] [address] [place] [phone] Mauricio Padilla MD [address] [place] [address] Colonic diverticular abscess (Primary Dx) Social History Tobacco Use Types Packs/Day Years Used Date Smoking Tobacco: Never Assessed Adolescent Education Answer Date Record ed Getting School Help Needed Not on file 04/17 Sex and Gender Information Value Date Recorded Sex Assigned at Not on file Gender Identity Not on file Sexual Orientation Not on file documented as of this encounter Plan of Treatment Not on file documented as of this encounter Visit Diagnoses Diagnosis Colonic diverticular abscess- Primary documented in this encounter Additional Health Concerns Infection Onset Date Last Indicated Resolved Time C-difficile 07/16/2023 07/16/2023 08/15/2023 11:3 9 PM TOOL MAKER 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
--- OUTSIDE RECORDS SUMMARY | 2023-08-31 14:36 | XMS_ITS | Encounter Summary ---
Author Name Unknown Organization [facility] Address [address] [place] [address]. [place] [address] Care Team Providers Care Orthodontist Assistant Name Role Phone No Ref-Primary, Physician Primary Care Provider Encounter Details Date Type Department Care Team (Late st Contact Info) Description 08/17/2023 Orders Only [facility] [address] [place] [phone] Carlyn Barba MD [facility] [address] [id number] Social History Tobacco Use Types Packs/Day Years [...] documented as of this encounter Visit Diagnoses Not on filedocumented in this encounter Additional Health Concerns Infection Onset Date Last Indicated Resolved Time Rule Out C-difficile 08/18/2023 08/18/2023 024 5: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
--- OUTSIDE RECORDS SUMMARY | 2023-08-31 14:36 | XMS_ITS | Encounter Summary ---
Author Name Unknown Organization [facility] Address [address] [place] [address] Care Team Providers Care Patient Service Coordinator Name Role Phone No Ref-Primary, Physician Primary Care Provider Encounter Details Date Type Department Care Team (Latest Contact Info) Description 08/18/2023 Travel Social History Tobacco Use Types Packs/Day Years [...] Out C-difficile 08/18/2023 08/18/2023 024 5:02 AM INFORMATION SYSTEMS TECHNICIAN documented as of this encounter Care Teams Patient Service Coordinator Relationship Specialty Start Date End Date No Ref-Primary, Physician PCP - General 03/25/23 documented as of this encounter
--- OUTSIDE RECORDS SUMMARY | 2023-08-31 14:36 | XMS_ITS | Encounter Summary ---
Author Name Unknown Organization [facility] Address [address] [place] [address]. 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
--- OUTSIDE RECORDS SUMMARY | 2023-08-31 14:36 | XMS_ITS | Referral Summary ---
Author Name Unknown Organization [place] Address [address] [place] [address]. [place] [address] Care Team Providers Care Fire Alarm Dispatcher Name Role Phone No Ref-Primary, Physician Primary Care Provider Encounters Date Type Department Care Team Description 08/18/2023 9:47 PM THREAT ANALYST - 08/21/2023 1:51 PM THREAT ANALYST Hospital Encounter [facility] General Surgery [address] [place] [address] Luisa Mendoza MD Schneider, Jun Zapata MD Clostridioides difficile infection (Primary Dx); Pancolitis (H); Intra-abdominal abscess (H); C. difficile colitis Discharge Disposition: Home-Health Care [facility] 08/20/2023 Hospital Encounter [facility] PeriOp Services [address] [place] [address] Mauricio Padilla MD Colonic diverticular abscess 08/18/2023 Travel 08/18/2023 Orders Only [facility] [address] [place] [address] Carlyn Barba MD C. difficile diarrhea (Primary Dx) 08/17/2023 Orders Only [facility] [address] [place] [address] Carlyn Barba MD 08/12/2023 Hospital Encounter [facility] Endoscopy [address] [phone] Caryln Barba MD 08/02/2023 Prep for Procedure [facility] [place] [address] [place] [phone] Mauricio Padilla MD Colonic diverticular abscess (Primary Dx) 07/15/2023 11:33 PM THREAT ANALYST - 07/19/2023 1:53 PM THREAT ANALYST Hospital Encounter [facility] Intermediate Care [address] [phone] Jun Dobbs DO Dasari, Paul Dayan, MD Clostridioides difficile infection (Primary Dx) Discharge Disposition: Home or Self Care from Last 3 Months Allergies No known active allergies Medications Medication [...] Clostridioides difficile infection 07/16/2023 Intra-abdominal abscess 03/25/2023 Social History Tobacco Use Types Packs/Day Years [...] Comments Blood Pressure 184/94 08/21/2023 11:03 AM THREAT ANALYST Pulse 74 08/21/2023 11:03 AM THREAT ANALYST Temperature 36.7 ??C (98 ??F) 08/21/2023 11:03 AM THREAT ANALYST Respiratory Rate 18 08/21/2023 11:03 AM THREAT ANALYST Oxygen Saturation 95% 08/21/2023 11:03 AM THREAT ANALYST Inhaled Oxygen Concentration - - Weight 73 kg (161 lb) 08/18/2023 7:03 PM THREAT ANALYST Height 170.2 cm (5' 7) 08/18/2023 7:03 PM THREAT ANALYST Body Mass Index 25.22 08/18/2023 7:03 PM THREAT ANALYST Plan of Treatment Not on file Procedures Procedure Name Priority Date/Time Associated Diagnosis Comments CBC WITH PLATELETS & DIFFERENTIAL Routine 08/21/2023 7:42 AM THREAT ANALYST CBC WITH PLATELETS AND DIFFERENTIAL Routine 08/21/2023 7:42 AM THREAT ANALYST BASIC METABOLIC PANEL Routine 08/21/2023 7:42 AM THREAT ANALYST PHOSPHORUS Routine 08/21/2023 7:42 AM THREAT ANALYST POTASSIUM Timed 08/20/2023 10:02 PM THREAT ANALYST CBC WITH PLATELETS & DIFFERENTIAL Routine 08/20/2023 7:00 AM THREAT ANALYST CBC WITH PLATELETS AND DIFFERENTIAL Routine 08/20/2023 7:00 AM THREAT ANALYST PHOSPHORUS Routine 08/20/2023 7:00 AM THREAT ANALYST BASIC METABOLIC PANEL Routine 08/20/2023 7:00 AM THREAT ANALYST PHOSPHORUS Routine 08/19/2023 3:45 PM THREAT ANALYST ROUTINE UA WITH MICROSCOPIC REFLEX TO CULTURE Routine 08/19/2023 2:55 AM THREAT ANALYST C. DIFFICILE ANTIGEN AND TOXINS A/B BY ENZYME IMMUNOASSAY STAT 08/18/2023 11:41 PM THREAT ANALYST C. DIFFICILE TOXIN B PCR WITH REFLEX TO C. DIFFICILE ANTIGEN AND TOXINS A/B EIA STAT 08/18/2023 11:[address] ABDOMEN PELVIS W/O & W CONTRAST STAT 08/18/2023 8:56 PM THREAT ANALYST CBC WITH PLATELETS & DIFFERENTIAL STAT 08/18/2023 7:11 PM THREAT ANALYST CBC WITH PLATELETS AND DIFFERENTIAL STAT 08/18/2023 7:11 PM THREAT ANALYST COMPREHENSIVE METABOLIC PANEL STAT 08/18/2023 7:11 PM THREAT ANALYST MAGNESIUM STAT 08/18/2023 7:11 PM THREAT ANALYST MAGNESIUM Routine 07/19/2023 6:13 AM THREAT ANALYST BASIC METABOLIC PANEL Routine 07/19/2023 6:13 AM THREAT ANALYST CBC WITH PLATELETS Routine 07/19/2023 6: 13 AM THREAT ANALYST CBC WITH PLATELETS Timed 07/18/2023 2: 30 PM THREAT ANALYST BASIC METABOLIC PANEL Timed 07/18/2023 2:30 PM THREAT ANALYST POTASSIUM Timed 07/18/2023 5:52 AM THREAT ANALYST POTASSIUM Timed 07/18/2023 12:57 AM THREAT ANALYST POTASSIUM Timed 07/17/2023 6:58 PM THREAT ANALYST MAGNESIUM Add-On 07/17/2023 5:57 AM THREAT ANALYST BASIC METABOLIC PANEL Routine 07/17/2023 5:57 AM THREAT ANALYST CBC WITH PLATELETS Routine 07/17/2023 5: 57 AM THREAT ANALYST LACTIC ACID WHOLE BLOOD Routine 07/16/2023 5:42 AM THREAT ANALYST CBC WITH PLATELETS Routine 07/16/2023 5: 42 AM THREAT ANALYST COMPREHENSIVE METABOLIC PANEL Routine 07/16/2023 5:42 AM THREAT ANALYST C. DIFFICILE ANTIGEN AND TOXINS A/B BY ENZYME IMMUNOASSAY Routine 07/16/2023 1:57 AM THREAT ANALYST C. DIFFICILE TOXIN B PCR WITH REFLEX TO C. DIFFICILE ANTIGEN AND TOXINS A/B EIA Routine 07/16/2023 1:57 AM THREAT ANALYST BASIC METABOLIC PANEL STAT 07/16/2023 12:42 AM THREAT ANALYST LACTIC ACID WHOLE BLOOD STAT 07/16/2023 12:42 AM THREAT ANALYST CBC WITH PLATELETS STAT 07/16/2023 12 :42 AM THREAT ANALYST EKG CARDIAC - HIM SCAN 12:00 AM THREAT ANALYST XRAY IMAGING - HIM SCAN 07/15/2023 12:00 AM THREAT ANALYST from Last 3 Months Results * (ABNORMAL) CBC with platelets and differential (08/21/2023 7:42 AM THREAT ANALYST) Only the most recent of3 resultswithin the time period is included. WBC Count 8.9 4.0 - 11.0 10e3/uL 08/21/2023 7:[address] [facility] RBC Count 4.30(L) 4.40 - 5.90 10e6/uL 08/21/2023 7:[address] [facility] Hemoglobin 13.0(L) 13.3 - 17.7 g/dL 08/21/2023 7:[address] [facility] Hematocrit 38.4(L) 40.0 - 53.0 % 08/21/2023 7:[address] [facility] MCV 89 78 - 100 fL 08/21/2023 7:[address] [facility] MCH 30.2 26.5 - 33.0 pg 08/21/2023 7:[address] [facility] MCHC 33.9 31.5 - 36.5 g/dL 08/21/2023 7:[address] [facility] RDW 13.8 10.0 - 15.0 % 08/21/2023 7:[address] [facility] Platelet Count 136(L) 150 - 450 10e3/uL 08/21/2023 7:[address] [facility] % Neutrophils 67 % 08/21/2023 7:[address] [facility] % Lymphocytes 22 % 08/21/2023 7:[address] [facility] % Monocytes 9 % 08/21/2023 7:[address] [facility] % Eosinophils 1 % 08/21/2023 7:[address] [facility] % Basophils 0 % 08/21/2023 7:[address] [facility] % Immature Granulocytes 1 % 08/21/2023 7:[address] [facility] NRBCs per 100 WBC 0 <1 /100 024 7:[address] [facility] Absolute Neutrophils 6.0 1.6 - 8.3 10e3/uL 08/21/2023 7:[address] [facility] Absolute Lymphocytes 2.0 0.8 - 5.3 10e3/uL 08/21/2023 7:[address] [facility] Absolute Monocytes 0.8 0.0 - 1.3 10e3/uL 08/21/2023 7:[address] [facility] Absolute Eosinophils 0.1 0.0 - 0.7 10e3/uL 08/21/2023 7:[address] [facility] Absolute Basophils 0.0 0.0 - 0.2 10e3/uL 08/21/2023 7:[address] [facility] Absolute Immature Granulocytes 0.1 <=0.4 10e3/uL 08/21/2023 7:[address] [facility] Absolute NRBCs 0.0 10e3/uL 08/21/2023 7:[address] [facility] Blood BLOOD SPECIMEN / Unknown Venipuncture / Unknown 08/21/2023 7:42 AM THREAT ANALYST 08/21/2023 7:48 AM [facility] Chris Marie MD LAB - BLOOD ORDERAB LES LABORATORY [facility] [address], [address] [place] [address], [facility] [phone] * Phosphorus (08/21/2023 7:42 AM THREAT ANALYST) Only the most recent of3 resultswithin the time period is included. [facility] Phosphorus 3.1 2.5 - 4.5 mg/dL 08/21/2023 8:[address] [facility] Blood BLOOD SPECIMEN / Unknown Venipuncture / Unknown 08/21/2023 7:42 AM THREAT ANALYST 08/21/2023 7:48 AM [facility] Jun Leone MD LAB - BLOOD OR DERABLES LABORATORY [facility] [address], [address] [place] [address], [facility] [phone] * (ABNORMAL) Basic metabolic panel (08/21/2023 7:42 AM [facility]) Only the most recent of6 resultswithin the time period is included. [facility] Sodium 136 135 - 145 mmol/L 08/21/2023 8:[address] [facility] Comment:Reference intervals for this test were updated on 04/20/2023 to more accurately reflect our healthy population. There may be differences in the flagging of prior results with similar values performed with this method. Interpretation of those prior results can be made in the context of the updated reference intervals. Potassium 3.3(L) 3.4 - 5.3 mmol/L 08/21/2023 8:[address] [facility] Chloride 100 98 - 107 mmol/L 08/21/2023 8:[address] [facility] Carbon Dioxide (CO2) 25 22 - 29 mmol/L 08/21/2023 8:[address] [facility] Anion Gap 11 7 - 15 mmol/L 08/21/2023 8:[address] [facility] Urea Nitrogen 6.9(L) 8.0 - 23.0 mg/dL 08/21/2023 8:[address] [facility] Creatinine 0.70 0.67 - 1.17 mg/dL 08/21/2023 8:[address] [facility] GFR Estimate >90 >60 mL/min/1. 73m2 08/21/2023 8:[address] [facility] Calcium 8.8 8.8 - 10.2 mg/dL 08/21/2023 8:[address] [facility] Glucose 98 70 - 99 mg/dL 08/21/2023 8:[address] [facility] Blood BLOOD SPECIMEN / Unknown Venipuncture / Unknown 08/21/2023 7:42 AM THREAT ANALYST 08/21/2023 7:48 AM THREAT ANALYST Chris Marie MD LAB - BLOOD ORDERAB LES LABORATORY [facility] [address], [address] [place] [address], [facility] [phone] * Potassium (08/20/2023 10:02 PM THREAT ANALYST) Only the most recent of4 resultswithin the time period is included. Potassium 3.6 3.4 - 5.3 mmol/L 08/20/2023 10:[address] [facility] Blood STRUCTURE OF LEFT UPPER LIMB / Unknown Venipuncture / Unknown 08/20/2023 10:02 PM THREAT ANALYST 08/20/2023 10:07 PM THREAT ANALYST Jun Leone MD LAB - BLOOD OR DERABLES Performing Organization Address City/[facility]/ZIP Co de Phone Number [facility] [address], [address] [address], [facility] [phone] * (ABNORMAL) UA with Microscopic reflex to Culture (08/19/2023 2:55 AM THREAT ANALYST) Color Urine Light Yellow Colorless, Straw, Light Yellow, Yellow 08/19/2023 3:[address] [facility] Appearance Urine Clear Clear 08/19/19 24 3:[address] [facility] Glucose Urine Negative Negative mg/dL 08/19/2023 3:[address] [facility] Bilirubin Urine Negative Negative 4 3:[address] [facility] Ketones Urine 10(A) Negative mg/dL 08/19/2023 3:[address] [facility] Specific Vestal Urine 1.015 1.003 - 1.035 STEPHEN 08/19/2023 3:[address] [facility] Blood Urine Negative Negative 08/19/2023 3:[address] [facility] pH Urine 5.5 5.0 - 7.0 08/19/2023 3:13 AM THREAT ANALYST LABORATORY Protein Albumin Urine Negative Negative mg/dL 08/19/2023 3:13 AM THREAT ANALYST LABORATORY Urobilinogen Urine Normal Normal, 2.0 mg/dL 08/19/2023 3:13 AM THREAT ANALYST LABORATORY Nitrite Urine Negative Negative 08/19/2023 3:13 AM THREAT ANALYST LABORATORY Leukocyte Esterase Urine Negative Negative 08/19/2023 3:13 AM THREAT ANALYST LABORATORY Mucus Urine Present(A) None Seen /LPF 08/19/2023 3:13 AM THREAT ANALYST LABORATORY RBC Urine 1 <=2 /HPF 08/19/2023 3:13 AM THREAT ANALYST LABORATORY WBC Urine 1 <=5 /HPF 08/19/2023 3:13 AM THREAT ANALYST LABORATORY Urine URINE SPECIMEN OBTAINED BY CLEAN CATCH PROCEDURE / Unknown Non-blood Collection / Unknown 08/19/2023 2:55 AM THREAT ANALYST 08/19/2023 3:05 AM THREAT ANALYST Narrative LABORATORY - 08/19/2023 3:13 AM THREAT ANALYST Urine Culture not indicated Jun Leone MD LAB - URINE OR DERABLES LABORATORY [facility] [address], [address] [place] [address], [facility] [phone] * (ABNORMAL) C. difficile Antigen and Toxins A/B by Enzyme Immunoassay (08/18/2023 11:41 PM THREAT ANALYST) Only the most recent of2 resultswithin the time period is included. C. difficile GDH Antigen Positive(A ) Negative STEPHEN 08/19/2023 6:00 AM THREAT ANALYST [facility] C. difficile Toxin Positive(A ) Negative STEPHEN 08/19/2023 6:00 AM THREAT ANALYST [facility] Stool RECTAL CONTENTS / Unknown Non-blood Collection / Unknown 08/18/2023 11:41 PM THREAT ANALYST 08/18/2023 11:51 PM THREAT ANALYST Narrative [facility] - 08/19/2023 6:00 AM THREAT ANALYST C. difficile GDH antigen and C. difficile toxin were detected by enzyme immunoassay. Results must be interpreted based on clinical findings and are supportive of C. difficile infection. Luisa Mendoza MD LAB - MICRO GENERAL ORDERABLES [facility] [address] [facility], [address] [place] [address], [facility] [phone] * (ABNORMAL) C. difficile Toxin B PCR with reflex to C. difficile Antigen and Toxins A/B EIA (08/18/2023 11:41 PM THREAT ANALYST) Only the most recent of2 resultswithin the time period is included. C Difficile Toxin B by PCR Positive( A) Negative 08/19/2023 5:02 AM THREAT ANALYST [facility] Comment: Detection of C. [...] Non-blood Collection / Unknown 08/18/2023 11:41 PM THREAT ANALYST 08/18/2023 11:51 PM THREAT ANALYST Narrative [facility] - 08/19/2023 5:02 AM THREAT ANALYST The CepP[employer]oid Xpert C. difficile Assay, performed on the [employer] GeneXpert?? Instrument Systems, is a qualitative in vitro [...] - MICRO GENERAL ORDERABLES [facility] [address] [facility], [address] [place] [address], [facility] [phone] * CT Abdomen Pelvis w/o & w Contrast (08/18/2023 8:56 PM THREAT ANALYST) Anatomical Region Laterality Modality Abdomen/Pelvis, SUBRAD CT SISSY DY, UMP CT ABDOMEN PELVIS, RAD CT Computed Tomography 08/18/2023 8:56 PM THREAT ANALYST Impressions 08/18/2023 9:14 PM THREAT ANALYST IMPRESSION: 1. ??Pancolitis, likely infectious or inflammatory. [...] Correlate with urinalysis. Narrative 08/18/2023 9:14 PM THREAT ANALYST EXAM: CT ABDOMEN PELVIS W/O and W CONTRAST LOCATION: [facility] DATE: 08/18/2023 INDICATION: Diarrhea. Concern for abdominal [...] ABDOMEN PELVIS W/O and W CONTRAST LOCATION: [facility] DATE: 08/18/2023 INDICATION: Diarrhea. Concern for abdominal [...] CT ORDERABLES * Magnesium (08/18/2023 7:11 PM THREAT ANALYST) Only the most recent of3 resultswithin the time period is included. Magnesium 2.1 1.7 - 2.3 mg/dL 08/18/2023 8:14 PM THREAT ANALYST LABORATORY Blood BLOOD SPECIMEN / Unknown Venipuncture / Unknown 08/18/2023 7:11 PM THREAT ANALYST 08/18/2023 7:42 PM THREAT ANALYST Luisa Mendoza MD LAB - BLOOD ORDERABL ES LABORATORY [facility] [address], [address] [place] [address], [facility] [phone] * Comprehensive metabolic panel (08/18/2023 7:11 PM THREAT ANALYST) Only the most recent of2 resultswithin the time period is included. Sodium 140 135 - 145 mmol/L 08/18/2023 8:[address] [facility] Comment:Reference intervals for this test were updated on 04/20/2023 to more accurately reflect our healthy population. There may be differences in the flagging of prior results with similar values performed with this method. Interpretation of those prior results can be made in the context of the updated reference intervals. Potassium 3.8 3.4 - 5.3 mmol/L 08/18/2023 8:14 PM THREAT ANALYST LABORATORY Carbon Dioxide (CO2) 25 22 - 29 mmol/L 08/18/2023 8:[address] [facility] Anion Gap 11 7 - 15 mmol/L 08/18/2023 8:[address] [facility] Urea Nitrogen 16.8 8.0 - 23.0 mg/dL 08/18/2023 8:[address] [facility] Creatinine 0.80 0.67 - 1.17 mg/dL 08/18/2023 8:[address] [facility] GFR Estimate 90 >60 mL/min/1. 73m2 08/18/2023 8:[address] [facility] Calcium 9.0 8.8 - 10.2 mg/dL 08/18/2023 8:[address] [facility] Chloride 104 98 - 107 mmol/L 08/18/2023 8:[address] [facility] Glucose 82 70 - 99 mg/dL 08/18/2023 8:[address] [facility] Alkaline Phosphatase 86 40 - 150 U/L 08/18/2023 8:[address] [facility] Comment:Reference intervals for this test were updated on 06/08/2023 to more accurately reflect our healthy population. There may be differences in the flagging of prior results with similar values performed with this method. Interpretation of those prior results can be made in the context of the updated reference intervals. AST 23 0 - 45 U/L 08/18/2023 8:[address] [facility] Comment:Reference intervals for this test were updated on 01/04/2023 to more accurately reflect our healthy population. There may be differences in the flagging of prior results with similar values performed with this method. Interpretation of those prior results can be made in the context of the updated reference intervals. ALT 22 0 - 70 U/L 08/18/2023 8:[address] [facility] Comment:Reference intervals for this test were updated on 01/04/2023 to more accurately reflect our healthy population. There may be differences in the flagging of prior results with similar values performed with this method. Interpretation of those prior results can be made in the context of the updated reference intervals. Protein Total 6.7 6.4 - 8.3 g/dL 08/18/2023 8:[address] [facility] Albumin 3.5 3.5 - 5.2 g/dL 08/18/2023 8:[address] [facility] Bilirubin Total 0.5 <=1.2 mg/dL 08/18/2023 8:[address] [facility] Blood BLOOD SPECIMEN / Unknown Venipuncture / Unknown 08/18/2023 7:11 PM THREAT ANALYST 08/18/2023 7:42 PM THREAT ANALYST Luisa Mendoza MD LAB - BLOOD ORDERABL ES LABORATORY [facility] [address], [address] [place] [address], [facility] [phone] * (ABNORMAL) CBC with platelets (07/19/2023 6:13 AM THREAT ANALYST) Only the most recent of5 resultswithin the time period is included. WBC Count 7.4 4.0 - 11.0 10e3/uL 07/19/2023 6:[address] [facility] RBC Count 3.71(L) 4.40 - 5.90 10e6/uL 07/19/2023 6:[address] [facility] Hemoglobin 11.1(L) 13.3 - 17.7 g/dL 07/19/2023 6:[address] [facility] Hematocrit 33.9(L) 40.0 - 53.0 % 07/19/2023 6:[address] [facility] MCV 91 78 - 100 fL 07/19/2023 6:[address] [facility] MCH 29.9 26.5 - 33.0 pg 07/19/2023 6:[address] [facility] MCHC 32.7 31.5 - 36.5 g/dL 07/19/2023 6:[address] [facility] RDW 13.6 10.0 - 15.0 % 07/19/2023 6:[address] [facility] Platelet Count 256 150 - 450 10e3/uL 07/19/2023 6:[address] [facility] Blood BLOOD SPECIMEN / Unknown Venipuncture / Unknown 07/19/2023 6:13 AM THREAT ANALYST 07/19/2023 6:40 AM THREAT ANALYST Wiliam Henley MD LAB - BLOOD OR DERABLES Performing Organization Address City/[facility]/ZIP Co de Phone Number LABORATORY [facility] [address], [address] [place] [address], [facility] [phone] * Lactic acid whole blood (07/16/2023 5:42 AM THREAT ANALYST) Only the most recent of2 resultswithin the time period is included. Lactic Acid 1.2 0.7 - 2.0 mmol/L 07/16/2023 6:02 AM THREAT ANALYST LABORATORY Blood STRUCTURE OF RIGHT HAND / Unknown Venipuncture / Unknown 07/16/2023 5:42 AM THREAT ANALYST 07/16/2023 5:51 AM THREAT ANALYST Gene Nielsen MD LAB - BLOOD ORDERAB LES Performing Organization Address [facility]/ZIP Co de Phone Number LABORATORY [facility] [address], [address] [place] [address], [facility] [phone] * XRAY IMAGING - HIM SCAN (07/15/2023 12:00 AM THREAT ANALYST) Anatomical Region Laterality Modality Other 07/15/2023 Provider Outside IMG DIAGNOSTIC IMAGI NG ORDERABLES * EKG CARDIAC - HIM SCAN (07/15/2023 12:00 AM THREAT ANALYST) 07/15/2023 Provider Outside ECG ORDERABLES from Last 3 Months Additional Health Concerns Infection Onset Date Last Indicated C-difficile 08/18/2023 08/18/2023 Advance Directives For more information, please contact: [phone] Latest Code Status on File Code Status [...] with patient/ legal decision maker Care Teams Fire Alarm Dispatcher Relationship Specialty Start Date End Date No Ref-Primary, Physician PCP - General 03/25/23
--- OUTSIDE RECORDS SUMMARY | 2023-08-31 14:37 | XMS_ITS | Encounter Summary ---
Author Name Unknown Organization [place] Address [address] [place] [address] Care Team Providers Care Java Technical Architect Name Role Phone No Ref-Primary, Physician Primary Care Provider Encounter Details Date Type Department Care Team (Latest Contact Info) Description 03/27/2023 Travel Social History Tobacco Use Types Packs/Day Years Used Date Smoking Tobacco: Never Assessed Sex and Gender Information Value Date Recorded Sex Assigned at Not on file Gender Identity Not on file Sexual Orientation Not on file COVID-19 Exposure Response Date Recorded In the last 10 days, have yo u been in contact with someone who was confirmed or suspected to have Coronavirus/COVID-19? No / Unsure 03/27/2023 2:42 PM CDT documented as of this encounter Plan of Treatment Not on file documented as of this encounter Visit Diagnoses Not on filedocumented in this encounter Care Teams Java Technical Architect Relationship Specialty Start Date End Date No Ref-Primary, Physician PCP - General 03/25/23 documented as of this encounter
--- OUTSIDE RECORDS SUMMARY | 2023-08-31 14:37 | XMS_ITS | Encounter Summary ---
Author Name Unknown Organization [facility] Address [address] [place] [address]. 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 Name Role Phone No Ref-Primary, Physician Primary Care Provider Reason for Visit * Reason Comments Wound Infection * Auth/Cert (Routine) Specialty Diagnoses / Procedures Referred By Henry acharya Referred To Contact Med Surg Diagnoses Intra-abdominal abscess (H) Intra-abdominal abscess (H) Gen Surg [address] [place] [address] Referral ID Status Reason Start Date Expiration Date Visits Re quested Visits Authorized [id number] 1 1 Encounter Details Date Type Department Care Team (Late st Contact Info) Description 03/27/2023 4:05 PM CDT - 03/30/2023 2:45 PM CDT Hospital Encounter [facility] General Surgery [address] [place] [address] Davis Titus, [facility] [address] [place], [place] [id number] Eldon Webster MD [address] [place] [id number] Constipation, unspecified constipation type (Primary Dx); Intra-abdominal abscess (H) Discharge Disposition: Home or Self Care Social History Tobacco Use Types Packs/Day Years [...] PM CDT documented as of this encounter Last Filed Vital Signs Vital Sign Reading Time Taken Comments Blood Pressure 173/85 03/30/2023 7:51 AM CDT Pulse 69 03/30/2023 7:51 AM CDT Temperature 36.6 ??C (97.9 ??F) 03/30/2023 7:51 AM CD T Respiratory Rate 16 03/30/2023 7:51 AM CDT Oxygen Saturation 97% 03/30/2023 7:51 AM CDT Inhaled Oxygen Concentration - - Weight 72.4 kg (159 lb 11.2 oz) 03/30/2023 6:07 AM CDT Height 170.2 cm (5' 7) 03/27/2023 2:54 PM CDT Body Mass Index 25.01 03/27/2023 2:54 PM CDT documented in this encounter Discharge Summaries * Wiliam Henley MD - 03/30/2023 1:13 PM CDT [facility] Hospitalist Discharge Summary Date of Admission: 03/27/2023 Date of Discharge: 03/30/2023 Discharging Provider: Wiliam Henley MD Discharge Service: Hospitalist Service Discharge Diagnoses Acute sigmoid diverticulitis with associated pelvic abscesses New peripheral edema Lumbar stenosis Constipation since starting narcotics CAD, s/p stent to the circumflex in 2003 Hypertension Hyperlipidemia Anemia Generalized anxiety COPD Tobacco use disorder Clinically Significant Risk Factors # Overweight: Estimated body mass index is 25.01 kg/m?? as calculated from the following: Height as of this encounter: 1.702 m (5' 7). Weight as of this encounter: 72.4 kg (159 lb 11.2 oz). Follow-ups Needed After Discharge Follow-up Appointments Follow-up and recommended labs and tests Follow up with primary care provider within 7 days for hospital follow up. The following labs/tests are recommended: CBC and BMP. Follow up with Dr. Rojo at [facility]. Their clinic will contact you to arrange follow up. If you do not hear from them in the next few days, you can contact their office at: [phone]. Unresulted Labs Ordered in the Past 30 Days of this Admission Date and Time Order Name Status Description 03/27/2023 5:07 PM Blood Culture Peripheral Blood Preliminary 03/27/2023 5:07 PM Blood Culture Peripheral Blood Preliminary These results will be followed up by Dr. Henley. Discharge Disposition Discharged to home Condition at discharge: Stable Hospital Course Matthew Wu is a very pleasant 78 year old male history of lumbar spinal stenosis, CAD, COPD, tobacco use disorder who admitted on 03/27/2023 for evaluation and treatment of 2 fluid collections adjacent to the sigmoid colon seen on CT on 03/25 concerning for diverticulitis versus neoplasm. Patient is from [place] so records were scanned in under media file. Basically he has been struggling with pain from spinal stenosis and was undergoing preoperative evaluation with MRI when he was found tohave a fluid collection in his pelvis. Subsequent CT as outlined below revealed 2 fluid collectionssuggestive of diverticulitis versus neoplasm. He then went to the [facility] where IR was consulted and found no amendable window for drainage. Given the delay in admission he left the ED AGAINST MEDICAL ADVICE on 03/25 he taking oral antibiotics since that time. He actually reports doing fairly well since he left the ED denying abdominal pain, fevers or chills and states his back pain has been better over the last week. He came into the ED to be admitted after a call from his primary care doctor. Acute sigmoid diverticulitis with associated pelvic abscesses *Colonoscopy 8 years ago with diverticulosis. *Repeat CT abd pelvis w/ shows abscesses without obvious change in size. Admitted to inpatient. Colorectal surgery consulted, appreciate their assistance. IR consulted, unable to percutaneously drain either abscess. Options for surgery now vs continuing antibiotics for 1-2 weeks with repeat imaging were discussed with patient by colorectal surgery. Patient opted for trial of antibiotics, see colorectal surgery notes for details. Treated with IV Zosyn in the hospital. Symptoms improved. Tolerating oral intake. Abdominal pain improved. Feels ready for discharge home. Discharge home today. Follow-up with PCP and colorectal surgery as noted below. Discussed antibiotic plan with ID on day of discharge. No indication for ongoing IV antibiotics at this time. No prior history resistant organisms. OK to transition to oral antibiotics to complete course. Will transition to oral Augmentin this evening, continue for 14 days. Follow-up with colorectal surgery with repeat imagine in 1-2 weeks. Discussed reasons to seek medical attention prior to follow-up appointments. New peripheral edema He thinks this has started in the last 2 to 3 weeks. He denies new onset shortness of breath, orthopnea, PND. No recent chest pain or palpitations. He has not noted any weight gain, actually thinks he lost a few pounds. Edema is a known side effect of fentanyl and onset correlates. Therefore removed fentanyl patch. TTE fairly unremarkable, see report in Epic. Normal albumin and creatinine, so nephrotic syndrome less likely. Edema improved, follow-up with PCP. Lumbar stenosis Pain has been much improved over the last week. Stopped [employer] fentanyl patch at 12 mcg per 72 hours as above (recently started). Continued [employer] oxycodone 5 mg every 6 hours as needed, however he has not used it over the past 72 hours. PRN acetaminophen available. Follow-up with neurosurgery as outpatient for potential surgery once he recovers from diverticulitis. Suspect that majority of his lumbar pain is related to diverticulitis and NOT lumbar stenosis. Question if lumbar surgery is truly needed. Constipation since starting narcotics Not on bowel regimen [employer]. Bowel regimen ordered in the hospital. Had a BM prior to discharge. Continue PRN miralax upon discharge. CAD, s/p stent to the circumflex in 2003 Hypertension Hyperlipidemia *Echo 2010 mild sclerotic aortic and mitral valve without Doppler abnormalities. Normal LV size andfunction with EF of 65% Continue [employer] lisinopril, simvastatin. Resume [employer] aspirin upon discharge. Blood pressure elevated on the morning of discharge, recheck at follow-up with PCP. Has been somewhat labile over past 24-48 hours, no changes were made to his antihypertensive regimen. Anemia Unfortunately do not have prior baseline but I see this listed in his past medical history. Hemoglobin has been stable around 10 since 03/25. No sign of bleeding. B12 level OK. Iron panel with normal sat index, low iron and iron binding capacity. Hemoglobin stable at 9.5 on 03/30. Recheck at follow-up with PCP. Generalized anxiety Continue [employer] Xanax as needed. COPD -on no [employer] FIN[employer]ER bronchodilators or inhaled steroids Tobacco use disorder - Smokes 1 pack/day. He does want to quit. He states the only reason he does it is because he is a boy and he is stupid. He has been using Nicorette lozenges at home and wantedto try the patch here. Nicotine patch 21 mg ordered with Nicorette lozenges as needed. Counseled on tobacco cessation. Consultations This Hospital Stay COLORECTAL SURGERY IP CONSULT INTERVENTIONAL RADIOLOGY ADULT/PEDS IP CONSULT CARE MANAGEMENT / SOCIAL WORK IP CONSULT Code Status Full Code Time Spent on this Encounter I, Wiliam Henley MD, personally saw the patient today and spent greater than 30 minutes discharging this patient. Wiliam Henley MD [address] [address] Physical Exam Vital Signs: Temp: 97.9 ??F (36.6 ??C) Temp src: Oral BP: (!) 173/85 Pulse: 69 Resp: 16 SpO2: 97 % O2 Device: None (Room air) Weight: 159 lbs 11.2 oz Constitutional: awake, alert, cooperative, no apparent distress, ambulating around the hospital room Respiratory: no increased work of breathing, clear to auscultation bilaterally, no crackles or wheezing Cardiovascular: regular rate and rhythm, normal S1 and S2, no murmur noted GI: normal bowel sounds, soft, non-distended, non-tender Skin: warm, dry Musculoskeletal: no lower extremity pitting edema present Neurologic: awake, alert, answers questions appropriately, moves all extremities Primary Care Physician Physician No Ref-Primary Discharge Orders Reason for your hospital stay Acute sigmoid diverticulitis with intraabdominal abscesses Follow-up and recommended labs and tests Follow up with primary care provider within 7 days for hospital follow up. The following labs/testsare recommended: CBC and BMP. Follow up with Dr. Rojo at [facility]. Their clinic will contact you to arrange follow up. If you do not hear from them in the next few days, you can contact their office at: [phone]. Activity Your activity upon discharge: activity as tolerated Diet Follow this diet upon discharge: Low Fiber Diet Significant Results and Procedures Most Recent 3 CBC's: Recent Labs Lab Test 03/30/23 0636 03/28/23 0652 03/27/23 1510 WBC 8.0 9.5 9.3 HGB 9.5* 9.1* 10.5* MCV 93 91 91 PLT 613* 614* 677* Most Recent 3 BMP's: Recent Labs Lab Test 03/30/23 0636 03/28/23 0652 03/27/23 1510 NA 144 140 142 POTASSIUM 3.4 3.6 4.0 CHLORIDE 106 105 103 CO2 28 25 25 BUN 9.0 10.3 11.4 CR 0.98 0.83 0.81 ANIONGAP 10 10 14 ALEIDA 8.8 8.8 9.3 GLC 94 90 107* Results for orders placed or performed during the hospital encounter of 03/27/23 CT Abdomen Pelvis w Contrast Narrative EXAM: CT ABDOMEN PELVIS W CONTRAST LOCATION: [facility] DATE: 03/28/2023 INDICATION: Diverticulitis. Pelvic abscess. COMPARISON: None. TECHNIQUE: CT scan of the abdomen and pelvis was performed following injection of IV contrast. Multiplanar reformats were obtained. Dose reduction techniques were used. CONTRAST: 82mL Isovue 370 FINDINGS: LOWER CHEST: Mild paraseptal emphysema. HEPATOBILIARY: Normal. PANCREAS: Normal. SPLEEN: Normal. ADRENAL GLANDS: Normal. KIDNEYS/BLADDER: Mild left hydronephrosis and left ureterectasis likely secondary to mass effect from the left pelvic abscess. Simple appearing bilateral renal cysts. No follow-up required for these. BOWEL: Normal caliber small bowel. Small appendicolith within a normal-appearing appendix. 5 x 5 x 4.1 cm peripheral enhancing fluid and gas collection within the posterior superior aspect of the pelvis, abutting the superior aspect of the sigmoid colon. There is either an anterior loculation or separate, anterior fluid collection, measuring 2.3 x 2 cm(image #125 series 3). Moderate sigmoid colon wall thickening with mild pericolonic fat stranding consistent with diverticulitis. Sigmoid colon diverticulosis. Normal caliber colon. LYMPH NODES: Normal. VASCULATURE: Moderate, partially calcified atherosclerotic changes throughout a normal caliber abdominal aorta. PELVIC ORGANS: Mild prostatic enlargement. Soft tissue thickening of the inferior aspect of the visualized left inguinal canal. MUSCULOSKELETAL: Multilevel degenerative disc disease. Degenerative changes lumbar facet joints andbilateral sacroiliac joints. Impression IMPRESSION: 1. Acute sigmoid diverticulitis with a 5 cm posterior superior pelvic abscess. 2. 2.3 cm anterior loculation versus separate, adjacent anterior abscess. 3. Mild left hydronephrosis and left ureterectasis, likely secondary to mass effect upon the distalureter from the pelvic abscess. CT Abdomen Peritonium Abscess Drainage Narrative CT ABDOMEN PERITONEUM ABSCESS DRAIN WITH CATH PLACE March 29, 2023 at 1758 hours HISTORY: 78-year-old patient with abscess in the lower abdomen/pelvis adjacent to L5-S1 and just below the aortic bifurcation. This is a difficult location for access, though attempt will be made percutaneously. TECHNIQUE: Patient was brought to the radiology department and informed consent obtained. Patient was initially placed in a supine position and skin overlying the lower abdomen was prepped and draped in standard sterile fashion. 1% lidocaine was used for local anesthesia. Attempts were made with CT guidance to access the abscess cavity anteriorly, though with mobile loops of bowel, this window closed during the procedure. Patient was then placed in a prone position and sought for a right transgluteal access, though this window also obscured by rectum and bone. Patient was then placed in the right lateral decubitus position and attempts were be made for left lower quadrant approach. However, multiple small vessels noted between the psoas muscle and sigmoid colon, as well as the ureter, therefore this access option not felt to be feasible. Iliac arterial system also overlying this area. Therefore, in summary, unable to obtain percutaneous access to this cavity, unfortunately. Sedation was administered during the procedure. MEDICATIONS: A moderate level of sedation was achieved with 1 mg IV Versed and 50 mcg IV fentanyl. Sedation time: 45 minutes. Please note the medications were administered by resource nursing staff under my direct supervision. Patient's vital signs were monitored and remained stable throughout the procedure. Contrast: None. FINDINGS: Radiation dose for this scan was reduced using automated exposure control, adjustment of the mA and/or kV according to patient size, or iterative reconstruction technique. Total of nine CT sequences obtained throughout the procedure. Initially, images obtained in supine position demonstrating no anterior ability to access the collection, prone position where a right transgluteal thought to be an option, though found to not be an option. Subsequently, right lateral decubitus position was obtained without appropriate access given overlying vasculature and ureter. Ultimately, unable to obtain percutaneous access. Impression IMPRESSION: Unsuccessful attempt at percutaneous abscess to deep abscess cavity near L5-S1. Anterior, posterior transgluteal, and right lateral decubitus position with left lower quadrant window all obscured by bowel, bone, vasculature, and left ureter. Therefore, it is felt percutaneous drainage is not an option. FINN LANDRY MD Echocardiogram Complete Value LVEF 55-60% Narrative [id number]^DARIN^ELDON^Maru [facility] Echocardiography [facility] [address] [place] [address] Name: MATTHEW WU : 1945 Study Date: 03/29/2023 08:24 AM Age: 78 yrs Gender: Male Patient Location: [facility] Reason For Study: Edema Ordering Physician: ELDON WEBSTER Referring Physician: ELDON WEBSTER Performed By: Khadijah Holland BSA: 1.9 m2 Height: 67 in Weight: 170 lb HR: 92 Procedure Complete Echo Adult. Interpretation Summary The left ventricle is normal in size. The visual ejection fraction is 55-60%. Diastolic Doppler findings (E/E' ratio and/or other parameters) suggest left ventricular filling pressures are indeterminate. No regional wall motion abnormalities noted. No significant valvular heart disease. Left Ventricle The left ventricle is normal in size. There is normal left ventricular wall thickness. The visual ejection fraction is 55-60%. Diastolic Doppler findings (E/E' ratio and/or other parameters) suggest left ventricular filling pressures are indeterminate. No regional wall motion abnormalities noted. Right Ventricle The right ventricle is normal in size and function. Atria Normal left atrial size. Right atrial size is normal. There is no color Doppler evidence of an atrial shunt. Mitral Valve The mitral valve leaflets are mildly thickened. There is trace mitral regurgitation. Tricuspid Valve There is trace tricuspid regurgitation. Right ventricular systolic pressure could not be approximated due to inadequate tricuspid regurgitation. Aortic Valve There is trivial trileaflet aortic sclerosis. No aortic regurgitation is present. Pulmonic Valve There is trace pulmonic valvular regurgitation. Vessels Normal size aorta. The aortic root is normal size. Pericardium There is no pericardial effusion. Rhythm Sinus rhythm was noted. MMode/2D Measurements & Calculations IVSd: 0.72 cm LVIDd: 4.8 cm LVIDs: 2.8 cm LVPWd: 0.85 cm FS: 41.4 % LV mass(C)d: 121.7 grams LV mass(C)dI: 64.5 grams/m2 Ao root diam: 3.1 cm asc Aorta Diam: 3.6 cm LVOT diam: 2.0 cm LVOT area: 3.1 cm2 Ao root diam Index (cm/m2): 1.6 asc Aorta Diam Index (cm/m2): 1.9 LA Volume (BP): 59.9 ml LA Volume Index (BP): 31.7 ml/m2 RWT: 0.36 TAPSE: 2.8 cm Doppler Measurements & Calculations MV E max nelson: 114.0 cm/sec MV A max nelson: 128.0 cm/sec MV E/A: 0.89 MV dec slope: 655.0 cm/sec2 MV dec time: 0.17 sec Ao V2 max: 213.0 cm/sec Ao max P.0 mmHg Ao V2 mean: 151.0 cm/sec Ao mean P.0 mmHg Ao V2 VTI: 39.5 cm DIOR(I,D): 2.3 cm2 DIOR(V,D): 1.9 cm2 LV V1 max P.8 mmHg LV V1 max: 130.0 cm/sec LV V1 VTI: 28.5 cm SV(LVOT): 89.5 ml SI(LVOT): 47.4 ml/m2 PA V2 max: 112.0 cm/sec PA max P.0 mmHg PA acc time: 0.11 sec AV Nelson Ratio (DI): 0.61 DIOR Index (cm2/m2): 1.2 E/E' av.0 Lateral E/e': 8.9 Medial E/e': 11.1 Report approved by: [employer] 03/29/2023 11:27 AM Discharge Medications Current Discharge Medication List START taking these medications Details acetaminophen (TYLENOL) 325 MG tablet Take 2 tablets (650 mg) by mouth every 6 hours as needed for mild pain Maximum of 4,000 mg of acetaminophen in any 24 hour period. Associated Diagnoses: Intra-abdominal abscess (H) polyethylene glycol (MIRALAX) 17 GM/Dose powder Take 17 g by mouth daily as needed for constipation Qty: 510 g, Refills: 0 Associated Diagnoses: Constipation, unspecified constipation type CONTINUE these medications which have CHANGED Details amoxicillin-clavulanate (AUGMENTIN) 875-125 MG tablet Take 1 tablet by mouth 2 times daily for 14 days Qty: 28 tablet, Refills: 0 Associated Diagnoses: Intra-abdominal abscess (H) oxyCODONE-acetaminophen (PERCOCET) 5-325 MG tablet Take 1 tablet by mouth every 6 hours as needed for severe pain . Maximum of 4,000 mg of acetaminophen in any 24 hour period. Refills: 0 CONTINUE these medications which have NOT CHANGED Details ALPRAZolam (XANAX) 0.25 MG tablet Take 0.25 mg by mouth 2 times daily as needed for anxiety aspirin (ASA) 325 MG EC tablet Take 325 mg by mouth daily lisinopril (ZESTRIL) 20 MG tablet Take 20 mg by mouth daily multivitamin w/minerals (MULTI-VITAMIN) tablet Take 1 tablet by mouth daily nitroGLYcerin (NITROSTAT) 0.[address] 0.4 mg under the tongue every 5 minutes asneeded for chest pain For chest pain place 1 tablet under the tongue every 5 minutes for 3 doses. If symptoms persist 5 minutes after 1st dose call 911. simvastatin (ZOCOR) 20 MG tablet Take 20 mg by mouth At Bedtime STOP taking these medications fentaNYL (DURAGESIC) 12 mcg/hr 72 hr patch Comments: Reason for Stopping: Allergies No Known Allergies documented in this encounter Medications at Time of Discharge Medication Sig Dispensed Refills Start Date End Date acetaminophen (TYLENOL) 325 MG tabletIndications:Int ra-abdominal abscess (H) Take 2 tablets (650 mg) by mouth every 6 hours as needed for mild pain Maximum of 4,000 mg of acetaminophen in any 24 hour period. 0 03/30/2023 aspirin (ASA) 325 MG EC tablet Take 325 mg by mouth daily 0 lisinopril (ZESTRIL) 20 MG tablet Take 20 mg by mouth at bedtime 0 multivitamin w/minerals (MULTI-VITAMIN) tablet Take 1 tablet by mouth daily 0 nitroGLYcerin (NITROSTAT) 0.[address] 0.4 mg under the tongue every 5 minutes as needed for chest pain 0 08/05/2022 simvastatin (ZOCOR) 20 MG tablet Take 20 mg by mouth At Bedtime 0 amoxicillin-clavulana te (AUGMENTIN) 875-125 MG tabletIndications:Int ra-abdominal abscess (H) Take 1 tablet by mouth 2 times daily for 14 days 28 tablet 0 03/30/2023 04/13/2023 ALPRAZolam (XANAX) 0.25 MG tablet Take 0.25 mg by mouth 2 times daily as needed for anxiety 0 07/16/2023 nitroGLYcerin (NITROSTAT) 0.[address] 0.4 mg under the tongue every 5 minutes as needed for chest pain For chest pain place 1 tablet under the tongue every 5 minutes for 3 doses. If symptoms persist 5 minutes after 1st dose call 911. 0 07/16/2023 oxyCODONE-acetaminoph en (PERCOCET) 5-325 MG tablet Take 1 tablet by mouth every 6 hours as needed for severe pain . Maximum of 4,000 mg of acetaminophen in any 24 hour period. 0 03/30/2023 07/16/2023 polyethylene glycol (MIRALAX) 17 GM/Dose powderIndications:Con stipation, unspecified constipation type Take 17 g by mouth daily as needed for constipation 510 g 0 03/30/2023 07/16/2023 documented as of this encounter Progress Notes * Dori Rodríguez RN - 03/30/2023 1:17 PM CDT Pt is alert and oriented, up independently, tolerates diet, denies the need for pain medications atthis time, will discharge to home, pt given written and verbal discharge instructions and knows that follow up care is needed, pt knows who to call with any questions or concern. All medications reviewed and all questions answered. * Jayme Walls MD - 03/30/2023 8:02 AM CDT Colon & Rectal Surgery Progress Note Interval History: Multiple attempts by IR yesterday to percutaneously drain his abscess were unsuccessful. He has no new complaints this morning. Stable back pain. No abdominal pain. Tolerating low fiber diet. Medications: I have reviewed this patient's current medications Physical Exam: Blood pressure (!) 173/85, pulse 69, temperature 97.9 ??F (36.6 ??C), temperature source Oral, resp. rate 16, height 1.702 m (5' 7), weight 72.4 kg (159 lb 11.2 oz), SpO2 97 %. Intake/Output Summary (Last 24 hours) at 03/29/2023 0957 Last data filed at 03/29/2023 0556 Gross per 24 hour Intake 600 ml Output 1675 ml Net -1075 ml GEN: alert, NAD HEART: RRR LUNGS: normal WOB on RA ABD: soft, NT, ND Data: Lab Results Component Value Date NA 140 03/28/2023 Lab Results Component Value Date CHLORIDE 105 03/28/2023 Lab Results Component Value Date BUN 10.3 03/28/2023 Lab Results Component Value Date POTASSIUM 3.6 03/28/2023 Lab Results Component Value Date CO2 25 03/28/2023 Lab Results Component Value Date CR 0.83 03/28/2023 CR 0.81 03/27/2023 Lab Results Component Value Date HGB 9.5 (L) 03/30/2023 HGB 9.1 (L) 03/28/2023 Lab Results Component Value Date PLT 613 (H) 03/30/2023 PLT 614 (H) 03/28/2023 Lab Results Component Value Date WBC 8.0 03/30/2023 WBC 9.5 03/28/2023 Assessment and Plan: 78 yo male with complicated diverticulitis with pelvic abscess x2, which are unfortunately located in the colonic mesentery and RP in a highly difficult to access area. Multiple attempts by IR to percutaneously drain the abscesses yesterday were unsuccessful. Otherwise stable. We discussed with him this morning that the 2 options moving forward are to continue IV antibioticsand repeat CT scan in 1 to 2 weeks to see if the abscess is shrinking, versus proceeding to surgerywhich would entail a sigmoid colectomy with surgical drainage of his abscesses. We again discussed how his surgery would be higher risk than average due to the location of the abscesses and may result in a colostomy. After discussing the possibilities, the patient states that he strongly prefers to try IV antibiotics first. 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 They have limited financial resources and no children in the area to help. He is worried about who willcare for her if he undergoes surgery. Based on this, it is reasonable to proceed with a trial of IVantibiotics. -Recommend placement of PICC line; defer to hospital medicine and ID regarding home IV antibiotic regimen and duration -Okay to discharge later today from a CRS perspective if PICC line is placed and his home antibiotics are set up -We will schedule a repeat CT scan in 1 to 2 weeks and follow-up in our clinic after this -Continue low fiber diet; no activity restrictions from our point of view Patient discussed with Dr. Barba and Dr. Rojo. Jayme Walls MD, MS Fellow, Colon & Rectal Surgery [facility] 03/30/2023 8:07 AM Associated attestation - Laura Rojo MD - 03/30/2023 10:49 AM CDT Physician Attestation I saw and evaluated Matthwe Wu as part of a shared DIGITAL ASSET COORDINATOR/PA visit. I personally reviewed the vital signs, medications, labs, and imaging. I personally performed the substantive portion of the medical decision making for this visit - please see the TRAVIS's documentation for full details. Rai management decisions made by me and carried out under my direction: Matthew Wu is a 78 year old man admitted with acute, perforated diverticulitis with 2 pelvic abscesses. Unfortunately the abscesses are not amenable to IR drainage. He reports significant improvement in his abdominal pain today. Low fiber diet. MiraLAX as needed for constipation Continue IV antibiotics. Plan for a 2-week course. Will need home health arranged for PICC and IV antibiotics. Okay for discharge today if able to coordinate outpatient antibiotics. We will plan for follow-up in colorectal surgery clinic in 1 to 2 weeks with a repeat abdominal CT scan and plans to discuss semielective surgery in 6 to 8 weeks. I personally performed the substantive portion of the physical exam - please see the TRAVIS's documentation for full details. I concur with the TRAVIS exam findings, in addition I have noted: Abdomen is soft, nontender nondistended Laura Rojo MD Date of Service (when I saw the patient): 03/30/23 * Junior Steen, RN - 03/29/2023 6:48 PM CDT Reason for admission: Diverticulitis with pelvic abscess x2 Procedure/s: CT guided access to abscess attempted via IR, but unsuccessful. Mental Status: Ox4 Activity: Ind Diet: LFD Pain: Denies /GI: Continent. Tele/Restraints/Iso: NA LDA: PIV SL w/ intermittent abx Expected D/C Date: TBD Other Info: Per CRS to continue ABx for another 1-2 weeks with repeat imaging versus proceeding with surgery. * Norberto Hinds MD - 03/29/2023 9:59 AM CDT [facility] Medicine Progress Note - Hospitalist Service Date of Admission: 03/27/2023 Assessment & Plan Matthew Wu is a very pleasant 78 year old male history of lumbar spinal stenosis, CAD, COPD, tobacco use disorder who admitted on 03/27/2023 for evaluation and treatment of 2 fluid collections adjacent to the sigmoid colon seen on CT on 03/25 concerning for diverticulitis versus neoplasm. Patient is from [place] so records were scanned in under media file. Basically he has been struggling with pain from spinal stenosis and was undergoing preoperative evaluation with MRI when he was found tohave a fluid collection in his pelvis. Subsequent CT as outlined below revealed 2 fluid collectionssuggestive of diverticulitis versus neoplasm. He then went to the [facility] where IR was consulted and found no amendable window for drainage. Given the delay in admission he left the ED AGAINST MEDICAL ADVICE on 03/25 he taking oral antibiotics since that time. He actually reports doing fairly well since he left the ED denying abdominal pain, fevers or chills and states his back pain has been better over the last week. He came into the ED to be admitted after a call from his primary care doctor. Diverticulitis, fluid collections adjacent to sigmoid colon Leukocytosis, resolved (14 on 03/25 > 9 on admission) No current signs of SIRS, and although he notes constipation after starting narcotics denies any significant abdominal pain, fevers or chills. * colonoscopy 8 years ago with diverticulosis *Repeat CT abd pelvis w/ shows abscesses without obvious change in size Zosyn ADAT to full liquids Currently not having abdominal pain. Continue WOOD [employer] FINISHER pain regimen as discussed below. N/V protocol ordered. Colorectal consulted Consult IR to see if drain can be placed, if drain cannot be placed will either need operative intervention or watch on abx for a week and then re-scan Abscess is adjacent to ureter so will need to be alert to symptoms of obstruction Follow up colonoscopy in 6 weeks. New peripheral edema - He thinks this is started in the last 2 to 3 weeks. He denies new onset shortness of breath orthopnea PND.. No recent chest pain or palpitations. He has not noted any weight gain, actually thinks he lost a few pounds. Edema is a known side effect of fentanyl and onset correlates. Therefore will remove fentanyl patch TTE pending Normal albumin, and Cr so nephrotic syndrome less likely. Lumbar stenosis - pain has been much improved over the last week Stop WO[employer] FINISHER fentanyl patch at 12 mcg per 72 hours as above (recently started) Continue WOOD [employer] FINISHER oxycodone 5 mg every 6 hours as needed Tylenol as needed ordered Follow-up with neurosurgery as outpatient for potential surgery once he recovers from diverticulitis. Suspect that majority of his lumbar pain is related to diverticulitis and NOT lumbar stenosis. Question if lumbar surgery is truly needed. Constipation since starting narcotics. Not on bowel regimen WOOD TYPE FINISHER Start MiraLAX daily As needed regimen ordered with senna increased frequency of MiraLAX and Dulcolax. CAD, s/p stent to the circumflex in 2003 Hypertension, hyperlipidemia *Echo 2010 mild sclerotic aortic and mitral valve without Doppler abnormalities. Normal LV size andfunction with EF of 65% Continue WOOD [employer] FINISHER lisinopril, simvastatin Hold aspirin initially as we await colorectal review He reports being able to climb stairs and and walks regularly without chest pain or shortness of breath. Anemia, unfortunately do not have prior baseline but I see this listed in his past medical history.Hemoglobin has been stable around 10 since 03/25. No sign of bleeding. Check iron panel and B12 Follow-up hemoglobin ordered Generalized anxiety Continue WOOD TYPE FINISHER Xanax as needed COPD -on no WOOD TYPE FINISHER bronchodilators or inhaled steroids Tobacco use disorder - Smokes 1 pack/day. He does want to quit. He states the only reason he does it is because he is a boy and he is stupid. He has been using Nicorette lozenges at home and would like to try the patch here Nicotine patch 21 mg ordered with Nicorette lozenges as needed Diet: Low Fiber Diet DVT Prophylaxis: Pneumatic Compression Devices Velazquez Catheter: Not present Lines: None Cardiac Monitoring: None Code Status: Full Code Clinically Significant Risk Factors # Hypoalbuminemia: Lowest albumin = 3.3 g/dL at 03/27/2023 3:10 PM, will monitor as appropriate # Overweight: Estimated body mass index is 25.24 kg/m?? as calculated from the following: Height as of this encounter: 1.702 m (5' 7). Weight as of this encounter: 73.1 kg (161 lb 2.5 oz). , PRESENT ON ADMISSION Disposition Plan Expected Discharge Date: 03/30/2023 Norberto Hinds MD Hospitalist Service [facility] Securely message with [employer] (more info) Text page via [employer] Paging/Directory Interval History Feels well. No new symptoms. Poor sleep overnight, wants something for this. Discussed with Dr. Barba from CRS. IR to eval if drain can be placed but she doesn't see a window for access. He may needsurgery. Physical Exam Vital Signs: Temp: 97.9 ??F (36.6 ??C) Temp src: Oral BP: 124/73 Pulse: 75 Resp: 18 SpO2: 96 % O2 Device: None (Room air) Weight: 161 lbs 2.5 oz Constitutional: Awake, alert, cooperative, no apparent distress Respiratory: Clear to auscultation bilaterally, no crackles or wheezing Cardiovascular: Regular rate and rhythm, normal S1 and S2, and no murmur noted GI: Normal bowel sounds, soft, non-distended, non-tender Skin/Integumen: No rashes, no cyanosis, no edema Other: Medical Decision Making MEDICAL DECISION MAKING MANAGEMENT DISCUSSED with the following over the past 24 hours: ETHAN MD, patient, RN, charge, sw NOTE(S)/MEDICAL RECORDS REVIEWED over the past 24 hours: ETHAN note, prior IR ontes Tests ORDERED & REVIEWED in the past 24 hours: - BMP - CBC Tests personally interpreted in the past 24 hours: - ABDOMINAL CT showing unchanged abscess Medical complexity over the past 24 hours: HIGH RISK FOR MORBIDITY - Parenteral (IV) CONTROLLED SUBSTANCES ordered Data PAST 24 HR DATA REVIEWED Imaging results reviewed over the past 24 hrs: Recent Results (from the past 24 hour(s)) CT Abdomen Pelvis w Contrast Narrative EXAM: CT ABDOMEN PELVIS W CONTRAST LOCATION: [facility] DATE: 03/28/2023 INDICATION: Diverticulitis. Pelvic abscess. COMPARISON: None. TECHNIQUE: CT scan of the abdomen and pelvis was performed following injection of IV contrast. Multiplanar reformats were obtained. Dose reduction techniques were used. CONTRAST: 82mL Isovue 370 FINDINGS: LOWER CHEST: Mild paraseptal emphysema. HEPATOBILIARY: Normal. PANCREAS: Normal. SPLEEN: Normal. ADRENAL GLANDS: Normal. KIDNEYS/BLADDER: Mild left hydronephrosis and left ureterectasis likely secondary to mass effect from the left pelvic abscess. Simple appearing bilateral renal cysts. No follow-up required for these. BOWEL: Normal caliber small bowel. Small appendicolith within a normal-appearing appendix. 5 x 5 x 4.1 cm peripheral enhancing fluid and gas collection within the posterior superior aspect of the pelvis, abutting the superior aspect of the sigmoid colon. There is either an anterior loculation or separate, anterior fluid collection, measuring 2.3 x 2 cm(image #125 series 3). Moderate sigmoid colon wall thickening with mild pericolonic fat stranding consistent with diverticulitis. Sigmoid colon diverticulosis. Normal caliber colon. LYMPH NODES: Normal. VASCULATURE: Moderate, partially calcified atherosclerotic changes throughout a normal caliber abdominal aorta. PELVIC ORGANS: Mild prostatic enlargement. Soft tissue thickening of the inferior aspect of the visualized left inguinal canal. MUSCULOSKELETAL: Multilevel degenerative disc disease. Degenerative changes lumbar facet joints andbilateral sacroiliac joints. Impression IMPRESSION: 1. Acute sigmoid diverticulitis with a 5 cm posterior superior pelvic abscess. 2. 2.3 cm anterior loculation versus separate, adjacent anterior abscess. 3. Mild left hydronephrosis and left ureterectasis, likely secondary to mass effect upon the distalureter from the pelvic abscess. * Carlyn Barba MD - 03/29/2023 9:57 AM CDT Images from the original note were not included. Colon & Rectal Surgery Progress Note Interval History: Stable. No significant pain. Repeat CT scan stable, no sig decrease in size of abscess. Medications: I have reviewed this patient's current medications Physical Exam: Blood pressure 124/73, pulse 75, temperature 97.9 ??F (36.6 ??C), temperature source Oral, resp. rate 18, height 1.702 m (5' 7), weight 73.1 kg (161 lb 2.5 oz), SpO2 96 %. Intake/Output Summary (Last 24 hours) at 03/29/2023 0957 Last data filed at 03/29/2023 0556 Gross per 24 hour Intake 600 ml Output 1675 ml Net -1075 ml GEN: alert, NAD ABD: soft, NT, ND Data: Lab Results Component Value Date NA 140 03/28/2023 Lab Results Component Value Date CHLORIDE 105 03/28/2023 Lab Results Component Value Date BUN 10.3 03/28/2023 Lab Results Component Value Date POTASSIUM 3.6 03/28/2023 Lab Results Component Value Date CO2 25 03/28/2023 Lab Results Component Value Date CR 0.83 03/28/2023 CR 0.81 03/27/2023 Lab Results Component Value Date HGB 9.1 (L) 03/28/2023 HGB 10.5 (L) 03/27/2023 Lab Results Component Value Date PLT 614 (H) 03/28/2023 PLT 677 (H) 03/27/2023 Lab Results Component Value Date WBC 9.5 03/28/2023 WBC 9.3 03/27/2023 Assessment and Plan: 78 yo male with complicated diverticulitis with pelvic abscess x2. Appears not ammenable to perc drainage. Otherwise stable. - will ask IR if they see a window to drain. - if unable to drain either cont ABx for another 1-2 weeks with repeat imaging versus proceeding with surgery which we discussed could result in temp stoma. - cont IV Abx for now Maddi Barba MD, FACS Colorectal Surgery [facility] [address] [facility] [place] [address] [address] T: [phone] F: [phone] * Claudette Blevins RN - 03/28/2023 7:04 PM CDT Pt here with pelvic abscess. A&Ox4. VSS on RA. Tolerating regular diet. Takes pills as whole. Up independently in the room. continent of bowel and bladder. Denied pain and nausea. On IV abx. Willcontinue to monitor. * Norberto Hinds MD - 03/28/2023 8:38 AM CDT [facility] Medicine Progress Note - Hospitalist Service Date of Admission: 03/27/2023 Assessment & Plan Matthew Wu is a very pleasant 78 year old male history of lumbar spinal stenosis, CAD, COPD, tobacco use disorder who admitted on 03/27/2023 for evaluation and treatment of 2 fluid collections adjacent to the sigmoid colon seen on CT on 03/25 concerning for diverticulitis versus neoplasm. Patient is from [place] so records were scanned in under media file. Basically he has been struggling with pain from spinal stenosis and was undergoing preoperative evaluation with MRI when he was found tohave a fluid collection in his pelvis. Subsequent CT as outlined below revealed 2 fluid collectionssuggestive of diverticulitis versus neoplasm. He then went to the [facility] where IR was consulted and found no amendable window for drainage. Given the delay in admission he left the ED AGAINST MEDICAL ADVICE on 03/25 he taking oral antibiotics since that time. He actually reports doing fairly well since he left the ED denying abdominal pain, fevers or chills and states his back pain has been better over the last week. He came into the ED to be admitted after a call from his primary care doctor. Suspect diverticulitis, fluid collections adjacent to sigmoid colon - not amendable to drainage by IR. Leukocytosis, resolved (14 on 03/25 > 9 on admission) No current signs of SIRS, and although he notes constipation after starting narcotics denies any significant abdominal pain, fevers or chills. * colonoscopy 8 years ago with diverticulosis Zosyn ADAT to full liquids Currently not having abdominal pain. Continue WOOD TYPE FINISHER pain regimen as discussed below. N/V protocol ordered. Colorectal consulted Repeat CT abd pelvis w03/28 Follow up colonoscopy in 6 weeks. New peripheral edema - He thinks this is started in the last 2 to 3 weeks. He denies new onset shortness of breath orthopnea PND.. No recent chest pain or palpitations. He has not noted any weight gain, actually thinks he lost a few pounds. Edema is a known side effect of fentanyl and onset correlates. Therefore will remove fentanyl patch Check echocardiogram, bnp Normal albumin, and Cr so nephrotic syndrome less likely. Lumbar stenosis - pain has been much improved over the last week Stop WO[employer] FINISHER fentanyl patch at 12 mcg per 72 hours as above (recently started) Continue WOOD [employer] FINISHER oxycodone 5 mg every 6 hours as needed Tylenol as needed ordered Follow-up with neurosurgery as outpatient for potential surgery once he recovers from diverticulitis. Constipation since starting narcotics. Not on bowel regimen WOOD TYPE FINISHER Start MiraLAX daily As needed regimen ordered with senna increased frequency of MiraLAX and Dulcolax. CAD, s/p stent to the circumflex in 2003 Hypertension, hyperlipidemia *Echo 2010 mild sclerotic aortic and mitral valve without Doppler abnormalities. Normal LV size andfunction with EF of 65% Continue WOOD TYPE FINISHER lisinopril, simvastatin Hold aspirin initially as we await colorectal review He reports being able to climb stairs and and walks regularly without chest pain or shortness of breath. Anemia, unfortunately do not have prior baseline but I see this listed in his past medical history.Hemoglobin has been stable around 10 since 03/25. No sign of bleeding. Check iron panel and B12 Follow-up hemoglobin ordered Generalized anxiety Continue WOOD TYPE FINISHER Xanax as needed COPD -on no WOOD TYPE FINISHER bronchodilators or inhaled steroids Tobacco use disorder - Smokes 1 pack/day. He does want to quit. He states the only reason he does it is because he is a boy and he is stupid. He has been using Nicorette lozenges at home and would like to try the patch here Nicotine patch 21 mg ordered with Nicorette lozenges as needed Diet: Advance Diet as Tolerated: Full Liquid Diet DVT Prophylaxis: Pneumatic Compression Devices Velazquez Catheter: Not present Lines: None Cardiac Monitoring: None Code Status: Full Code Clinically Significant Risk Factors Present on Admission # Hypoalbuminemia: Lowest albumin = 3.3 g/dL at 03/27/2023 3:10 PM, will monitor as appropriate # Drug Induced Platelet Defect: home medication list includes an antiplatelet medication # Hypertension: Home medication list includes antihypertensive(s) # Overweight: Estimated body mass index is 25.59 kg/m?? as calculated from the following: Height as of this encounter: 1.702 m (5' 7). Weight as of this encounter: 74.1 kg (163 lb 5.8 oz). Disposition Plan Expected Discharge Date: 03/29/2023 Norberto Hinds MD Hospitalist Service [facility] Securely message with [employer] (more info) Text page via [employer] Paging/Directory Interval History Feels well. Eager to get up and move. Doesn't like being in hospital.would like to be able to smoke. Discussed with patient and Dr. Barba of colorectal. Will repeat CT and further plan pending this. Physical Exam Vital Signs: Temp: 97.7 ??F (36.5 ??C) Temp src: Oral BP: (!) 146/67 Pulse: 70 Resp: 18 SpO2: 93 % O2 Device: None (Room air) Weight: 163 lbs 5.77 oz Constitutional: Awake, alert, cooperative, no apparent distress Respiratory: Clear to auscultation bilaterally, no crackles or wheezing Cardiovascular: Regular rate and rhythm, normal S1 and S2, and no murmur noted GI: Normal bowel sounds, soft, non-distended, non-tender Skin/Integumen: No rashes, no cyanosis, no edema Other: Medical Decision Making MEDICAL DECISION MAKING MANAGEMENT DISCUSSED with the following over the past 24 hours: patient, RN, home health care worker, colorectal surgery NOTE(S)/MEDICAL RECORDS REVIEWED over the past 24 hours: ED note, outside ED note, prior H&P, this H&P, prior colorectal and IR onsults Tests ORDERED & REVIEWED in the past 24 hours: - BMP - CBC Tests personally interpreted in the past 24 hours: - ABDOMINAL CT showing abscess Medical complexity over the past 24 hours: HIGH RISK FOR MORBIDITY - Parenteral (IV) CONTROLLED SUBSTANCES ordered Data PAST 24 HR DATA REVIEWED I have personally reviewed the following data over the past 24 hrs: 9.5 \ 9.1 (L) / 614 (H) 140 105 10.3 / 90 3.6 25 0.83 \ ALT: 32 AST: N/A AP: 118 TBILI: 0.3 ALB: 3.3 (L) TOT PROTEIN: 7.6 LIPASE: N/A Trop: N/A BNP: 591 Procal: N/A CRP: N/A Lactic Acid: 0.6 Imaging results reviewed over the past 24 hrs: No results found for this or any previous visit (from the past 24 hour(s)). * Keri Gerard RN - 03/27/2023 10:00 PM CDT Pt here with Intra-abdominal abscess (H) [K65.1]. Cognitive/Mentation: alert and oriented times VS: WDL Activity: WDL, SBA, GB Diet: Liquid, advanced diet as tolerated, Denies nausea and abd pain Pulmonary: WDL Pain: Denies at this time GI: BS +, + flatus. : Frequency. Continent/incontinent. IVs: PIV SL Drains: n/a Intergument, Lower extrimity +2 edema shift summary Settled to room after admission from the ED. Pt is alert and oriented times four. Skin assessment done with Christiano Montejo RN, No skin issues noted except +2 bilateral edema on lower extremities. Removed a fentanyl patch on pt from home and destroyed it in the rx med destroyer container in med room, witnessed by Jun Bentley RN documented in this encounter H&P Notes * Eldon Webster MD - 03/27/2023 6:50 PM CDT [facility] History and Physical - Hospitalist Service Date of Admission: 03/27/2023 Assessment & Plan Matthew Wu is a very pleasant 78 year old male history of lumbar spinal stenosis, CAD, COPD, tobacco use disorder who admitted on 03/27/2023 for evaluation and treatment of 2 fluid collections adjacent to the sigmoid colon seen on CT on 03/25 concerning for diverticulitis versus neoplasm. Patient is from [place] so records were scanned in under media file. Basically he has been struggling with pain from spinal stenosis and was undergoing preoperative evaluation with MRI when he was found tohave a fluid collection in his pelvis. Subsequent CT as outlined below revealed 2 fluid collectionssuggestive of diverticulitis versus neoplasm. He then went to the [facility] where IR was consulted and found no amendable window for drainage. Given the delay in admission he left the ED AGAINST MEDICAL ADVICE on 03/25 he taking oral antibiotics since that time. He actually reports doing fairly well since he left the ED denying abdominal pain, fevers or chills and states his back pain has been better over the last week. He came into the ED to be admitted after a call from his primary care doctor. At presentation. BP (!) 181/83 Pulse 100 Temp 98.3 ??F (36.8 ??C) (Oral) Resp 18 Ht 1.702 m (5' 7) Wt 77.1 kg (170 lb) SpO2 94% BMI 26.63 kg/m?? Lytes normal. BUN 11 Cr 0.81. Glucose 107, lactic acid 0.6 WBC 9.3 (previously 14.8 on 03/25), Hgb 10.5 (stable since 03/25), plts 677 INR 1.19 BCx x 2 obtained 03/23/23 MRI lumbar spine without contrast conclusion by Dr. Walter Arguello MD: 1. Midline gas containing soft tissue or complex cystic mass at the pelvic inlet below the aortic bifurcation measuring 6.3 cm in greatest dimension. Differential considerations would include diverticular abscess. Recommend CT scan of the abdomen and pelvis with IV and oral water-soluble contrast for further evaluation before general surgical consultation. 2. Multi level advanced lumbar disc degeneration, severe right L5-S1 foraminal stenosis, moderate to severe central stenosis at L3-4 with moderate right foraminal stenosis, and severe central/subarticular stenosis at L2-3 3. Mild L1-2 central/left subarticular stenosis and poorly visualized central disc herniation/stenosis at T10-11 4. No fractures identified. Note: Comparison to 03/25/2022 shows new midline pelvic inlet mass/complex cystic collection. Otherwise no obvious interval change in multilevel lumbar spondylolysis. 03/25/2023 CT abdomen/pelvis scan with IV and oral contrast 2 fluid collections adjacent to the sigmoid colon. This may be sequela of diverticulitis or neoplasm. There is some mild wall thickening of the mid sigmoid colon and mild surrounding fat stranding. The collections are unlikely to be able to be drained by interventional radiology drain. Mild left hydronephrosis and hydroureter down to the level of the fluid collection in the pelvis. There is no stone within the ureter. The left testicle is located in the inguinal canal. This is of unknown acuity. Mild subpleural pulmonary fibrosis Report by Dr. Luanne Mishra. Suspect diverticulitis, fluid collections adjacent to sigmoid colon - not amendable to drainage by IR. Leukocytosis, resolved (14 on 03/25 > 9 on admission) No current signs of SIRS, and although he notes constipation after starting narcotics denies any significant abdominal pain, fevers or chills. * colonoscopy 8 years ago with diverticulosis Zosyn started in the ED. ADAT to full liquids Currently not having abdominal pain. Continue WOOD TYPE FINISHER pain regimen as discussed below. N/V protocol ordered. Colorectal consulted Plan for follow-up CT as per colorectal recommendations Follow up colonoscopy in 6 weeks. New peripheral edema - He thinks this is started in the last 2 to 3 weeks. He denies new onset shortness of breath orthopnea PND.. No recent chest pain or palpitations. He has not noted any weight gain, actually thinks he lost a few pounds. Edema is a known side effect of fentanyl and onset correlates. Therefore will remove fentanyl patch Check echocardiogram, bnp Normal albumin, and Cr so nephrotic syndrome less likely. Lumbar stenosis - pain has been much improved over the last week Stop [employer] fentanyl patch at 12 mcg per 72 hours as above (recently started) Continue [employer] oxycodone 5 mg every 6 hours as needed Tylenol as needed ordered Follow-up with neurosurgery as outpatient for potential surgery once he recovers from diverticulitis. Constipation since starting narcotics. Not on bowel regimen [employer] Start MiraLAX daily As needed regimen ordered with senna increased frequency of MiraLAX and Dulcolax. CAD, s/p stent to the circumflex in 2003 Hypertension, hyperlipidemia *Echo 2010 mild sclerotic aortic and mitral valve without Doppler abnormalities. Normal LV size andfunction with EF of 65% Continue [employer] lisinopril, simvastatin Hold aspirin initially as we await colorectal review He reports being able to climb stairs and and walks regularly without chest pain or shortness of breath. Anemia, unfortunately do not have prior baseline but I see this listed in his past medical history.Hemoglobin has been stable around 10 since 03/25. No sign of bleeding. Check iron panel and B12 Follow-up hemoglobin ordered Generalized anxiety Continue [employer] FIN[employer]ER Xanax as needed COPD -on no [employer]OD [employer] FIN[employer]ER bronchodilators or inhaled steroids Tobacco use disorder - Smokes 1 pack/day. He does want to quit. He states the only reason he does it is because he is a boy and he is stupid. He has been using Nicorette lozenges at home and would like to try the patch here Nicotine patch 21 mg ordered with Nicorette lozenges as needed Diet: DVT Prophylaxis: Pneumatic Compression Devices Velazquez Catheter: Not present Lines: None Cardiac Monitoring: None Code Status: Full code, discussed Clinically Significant Risk Factors Present on Admission # Hypoalbuminemia: Lowest albumin = 3.3 g/dL at 03/27/2023 3:10 PM, will monitor as appropriate # Coagulation Defect: INR = 1.19 (Ref range: 0.85 - 1.15) and/or PTT = N/A, will monitor for bleeding # Drug Induced Platelet Defect: home medication list includes an antiplatelet medication # Hypertension: Home medication list includes antihypertensive(s) # Overweight: Estimated body mass index is 26.63 kg/m?? as calculated from the following: Height as of this encounter: 1.702 m (5' 7). Weight as of this encounter: 77.1 kg (170 lb). Disposition Plan Expected Discharge Date: 03/29/2023 Eldon Webster MD Hospitalist Service [facility] Securely message with [employer] (more info) Text page via [facility] Paging/Directory Chief Complaint Diverticulitis History is obtained from the patient and EMR History of Present Illness Matthew Wu is a 78 year old male history of lumbar spinal stenosis, CAD, COPD, tobacco use disorder who admitted on 03/27/2023 for evaluation and treatment of 2 fluid collections adjacent to the sigmoid colon seen on CT on 03/25 concerning for diverticulitis versus neoplasm. Patient is from [place] so records were scanned in under media file. Basically he has been struggling with pain from spinal stenosis and was undergoing preoperative evaluation with MRI when he was found to have a fluid collection in his pelvis. Subsequent CT as outlined below revealed 2 fluid collections suggestive ofdiverticulitis versus neoplasm. He then went to the [facility] where IR was consulted and found no amendable window for drainage. Given the delay in admission he left the ED AGAINST MEDICAL ADVICE on 03/25 he has been taking oral antibiotics since that time. He actually reports doing fairly well since he left the ED denying abdominal pain, fevers or chills and states his back pain hasbeen better over the last week. He came into the ED to be admitted after a call from his primary care doctor He is also noted new onset swelling. He thinks this is started in the last 2 to 3 weeks. He denies new onset shortness of breath orthopnea PND.. No recent chest pain or palpitations. He states the fentanyl and oxycodone was started in the last month he is has difficulty with the timing of things. But he does state the pain is much better. He has difficulty describing his prior pain. Although he does not recall having any significant abdominal pain. He does note onset of constipation after starting narcotics. Past Medical History No past medical history on file. As outlined above in assessment and plan as well as the following Osteoarthritis Erectile dysfunction Asthma Past Surgical History No past surgical history on file. Status post anal fissurectomy Status post CAD stent placement Status post cataract extraction Status post tonsillectomy and adenoidectomy History of rhinoplasty Prior to Admission Medications Prior to Admission Medications Prescriptions Last Dose Informant Patient Reported? Taking? ALPRAZolam (XANAX) 0.25 MG tablet Unknown at PRN Self Yes Yes Sig: Take 0.25 mg by mouth 2 times daily as needed for anxiety amoxicillin-clavulanate (AUGMENTIN) 875-125 MG tablet 03/27/2023 at AM, 2nd dose in course Self Yes Yes Sig: Take 1 tablet by mouth 2 times daily For 14 days starting 03/26/23 aspirin (ASA) 325 MG EC tablet 03/26/2023 at PM Self Yes Yes Sig: Take 325 mg by mouth daily fentaNYL (DURAGESIC) 12 mcg/hr 72 hr patch 03/27/2023 at applied in AM Self Yes Yes Sig: Place 1 patch onto the skin every 72 hours remove old patch. lisinopril (ZESTRIL) 20 MG tablet 03/26/2023 at PM Self Yes Yes Sig: Take 20 mg by mouth daily multivitamin w/minerals (MULTI-VITAMIN) tablet 03/27/2023 at AM Self Yes Yes Sig: Take 1 tablet by mouth daily nitroGLYcerin (NITROSTAT) 0.4 MG sublingual tablet Unknown at PRN, never taken but has home supply Self Yes Yes Sig: Place 0.4 mg under the tongue every 5 minutes as needed for chest pain For chest pain place 1 tablet under the tongue every 5 minutes for 3 doses. If symptoms persist 5 minutes after 1st dose call 911. oxyCODONE-acetaminophen (PERCOCET) 5-325 MG tablet 03/27/2023 at AM Self Yes Yes Sig: Take 1 tablet by mouth every 6 hours as needed for severe pain simvastatin (ZOCOR) 20 MG tablet 03/26/2023 at PM Self Yes Yes Sig: Take 20 mg by mouth At Bedtime Facility-Administered Medications: None Social History I have reviewed this patient's social history and updated it with pertinent information if needed. He is lives with his . He ambulates independently. He states his is starting at memory problem so he wants to stay alive to be able to take care of her. He continues to smoke 1 pack/day. He has a history of alcohol use disorder but has not drank for over 20 years. Physical Exam Vital Signs: Temp: 98.3 ??F (36.8 ??C) Temp src: Oral BP: (!) 181/83 Pulse: 100 Resp: 18 SpO2: 94 %O2 Device: None (Room air) Weight: 170 lbs 0 oz Constitutional: awake, alert, cooperative, no apparent distress, and appears stated age Lungs: No increased work of breathing, decreased air exchange, clear to auscultation bilaterally, no crackles or wheezing Cardiovascular: Regular rate and rhythm, normal S1 and S2, no S3 or S4, and no murmur noted. Extremities are warm. 2+ edema. Abdomen: Normal bowel sounds, soft, non-distended, non-tender, no masses palpated, no hepatosplenomegally Musculoskeletal: There is no redness, warmth, or swelling of the joints. Normal build. Neurologic: Awake, alert, oriented to name, place, but does have difficulty remembering details in recent past medical history. Speech intact. Follows commands Face symmetric Moving all 4 extremities without gross focal deficit. Neuropsychiatric: General: normal, calm and normal eye contact Skin: No excessive bruising. No bleeding, redness, warmth, or swelling and no rashes Medical Decision Making Over 75 MINUTES SPENT BY ME on the date of service doing chart review, history, exam, documentation& further activities per the note. Data I have personally reviewed the following data over the past 24 hrs: 9.3 \ 10.5 (L) / 677 (H) 142 103 11.4 / 107 (H) 4.0 25 0.81 \ ALT: 32 AST: N/A AP: 118 TBILI: 0.3 ALB: 3.3 (L) TOT PROTEIN: 7.6 LIPASE: N/A Procal: N/A CRP: N/A Lactic Acid: 0.6 Imaging results reviewed over the past 24 hrs: No results found for this or any previous visit (from the past 24 hour(s)). documented in this encounter Consult Notes * Finn Landry MD - 03/29/2023 2:01 PM CDTAssociated Order(s): INTERVENTIONAL RADIOLOGY ADULT/PEDS IP CONSULT IR Asked about deep midline lower abdominal/pelvis abscess. If CT and flying squad nurse available, will call down now in attempt to access. I see one option with right transgluteal route and angled cranially in attempt at access. Will be difficult and may be inaccessible once patient in position. Finn Landry MD * Carlyn Barba MD - 03/28/2023 11:51 AM CDT [facility] Colon and Rectal Surgery Consult Note Name: Matthew Wu Date of : 1945 Age: [age] year old Date of admission: 03/27/2023 Primary care provider: No Ref-Primary, Physician Requesting Physician: Dr. Hinds Reason for consult: Diverticulitis with abscess History of Present Illness: Matthew Wu is a 78 year old male, seen at the request of Dr. Hinds, presents with known pelvic abscess. He has medical history of hypertension, CAD, current smoker presenting with intra-abdominal abscess found on lumbar MRI. He was initially supposed to be admitted to the [facility] but left AGAINST MEDICAL ADVICE. He has been taking oral antibiotics since March 25. [facility] after speaking with his primary care physician. The patient has had back pain for quite some time and is scheduled for an upcoming procedure, this was found on an MRI. Denies fevers, abd pain, nausea, vomiting or change in bowel habits. He has had some urinary frequency but no dysuria. Hx of diverticulosis w/o diverticulitis. No prior abdominal surgeries. Colonoscopy History: 8 year prior. Past Medical History: No past medical history on file. Past Surgical History: No past surgical history on file. Social History: Social History Tobacco Use Smoking status: Not on file Smokeless tobacco: Not on file Substance Use Topics Alcohol use: Not on file Family History: No family history on file. Allergies: No Known Allergies Medications: lisinopril 20 mg Oral Daily nicotine 1 patch Transdermal Daily nicotine Transdermal Q8H piperacillin-tazobactam 3.375 g Intravenous Q6H polyethylene glycol 17 g Oral Daily simvastatin 20 mg Oral At Bedtime sodium chloride (PF) 3 mL Intracatheter Q8H Review of Systems: A comprehensive greater than 10 system review of systems was carried out. Pertinent positives and negatives are noted above. Otherwise negative for contributory info. Physical Exam: Blood pressure (!) 146/67, pulse 70, temperature 97.7 ??F (36.5 ??C), temperature source Oral, resp. rate 18, height 1.702 m (5' 7), weight 74.1 kg (163 lb 5.8 oz), SpO2 93 %. Intake/Output Summary (Last 24 hours) at 03/28/2023 1146 Last data filed at 03/28/2023 1000 Gross per 24 hour Intake 360 ml Output 645 ml Net -285 ml Exam: General - Awake alert and [...] lesions or ulcers, normal coloring Data Reviewed: No results found for this or any previous visit (from the past 24 hour(s)). Recent Labs Lab 03/28/23 0652 03/27/23 1510 03/25/23 0606 WBC 9.5 9.3 14.8* HGB 9.1* 10.5* 9.9* HCT 27.9* 32.0* 30.2* MCV 91 91 92 PLT 614* 677* 510* Lab Results Component Value Date NA 140 03/28/2023 NA 142 03/27/2023 NA 140 03/25/2023 Lab Results Component Value Date CHLORIDE 105 03/28/2023 CHLORIDE 103 03/27/2023 CHLORIDE 105 03/25/2023 Lab Results Component Value Date BUN 10.3 03/28/2023 BUN 11.4 03/27/2023 BUN 12.0 03/25/2023 Lab Results Component Value Date POTASSIUM 3.6 03/28/2023 POTASSIUM 4.0 03/27/2023 POTASSIUM 3.4 03/25/2023 Lab Results Component Value Date CO2 25 03/28/2023 CO2 25 03/27/2023 CO2 25 03/25/2023 Lab Results Component Value Date CR 0.83 03/28/2023 CR 0.81 03/27/2023 CR 0.87 03/25/2023 Assessment and Plan: This is a 78-year-old male with CAD, COPD who was admitted with concern for diverticulitis with to pelvic abscesses. I reviewed his scans from the outside facility and these do not appear to be amenable to percutaneous drainage. Given that his last CT scan was about 5 days prior we will repeat his scan to see if there is been any change or if he is on we review amenable to drainage. Otherwise at this time would continue with IV antibiotics. Plan: Admit to medicine Surgery: (non-op, OR, elective, emergent, urgent) nonoperative at this time Diet: Okay for low fiber diet IV Fluids: Per medicine Antibiotics: IV antibiotics Medications: (ie. Home meds to give/hold, blood thinners) okay for [employer] FIN[employer]ER meds I&O? s: strict I&O? s, (stoma output?, velazquez?) Monitor Labs: - Reviewed: yes - Ordered: N/A Imaging: - I have personally viewed: CT abd/pelvis pelvic abscess seen just inferior to the aortic bifurcation at the pelvic brim. - Ordered: Repeat CT scan with contrast today Activity: (ambulate, PT/OT) up ad gem. DVT prophylaxis: SCD???s, This plan has been discussed with Dr. Hinds Patient specific identified risk factors considered as part of today???s evaluation include: COPD, CAD, smoker (Blood thinners, BMI>30, Smoker, Diabetic etc. etc.) Additional history obtained from patient and chart. Time spent on consultation: 45 minutes greater than 50% of total encounter time was spent in counseling and or coordination of care. Maddi Barba MD [facility] documented in this encounter ED Notes * Sariah Duvall RN - 03/27/2023 5:09 PM CDT [facility] ED Nurse Handoff Report ED Chief complaint: Wound Infection ED Diagnosis: Final diagnoses: None Code Status: not addressed at this time Allergies: No Known Allergies Patient Story: Patient was seen at [facility] on 03/25 and was suppose to be admitted for an intraabdominal abscess. Patient left AMA, d/t feeling like he wasn't getting the help he needed. Patient is back to be admitted. Focused Assessment: patient is very anxious. Patient c/o low back pain, and a little abd pain. Denies respiratory symptoms. 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 Family Comments: at bedside OBS brochure/video discussed/provided to patient/family: N/A Name of person given brochure if not patient: NA Relationship to patient: NA For the majority of the shift this patient's behavior was Green. Behavioral interventions performed were None. ED NURSE PHONE NUMBER: [phone] * Sariah Duvall RN - 03/27/2023 2:57 PM CDT Patient was seen at [facility] on 03/25 and was suppose to be admitted for an intraabdominal abscess. Patient left AMA, d/t feeling like he wasn't getting the help he needed. Patient is back to be admitted. * Davis Titus DO - 03/27/2023 2:41 PM CDT History Chief Complaint: Wound Infection HPI Matthew Wu is a 78 year old male who presents with concern of intra- abdominal abscess. The patient reports chronic low back pain. He reports that he has been seen at [facility] spine and the [facility] pain clinic. Reports that he has had MRIs of the lumbar spine. He does not know where these were performed. He reports that he had a CT scan done through the [facility] recently that showed a intra-abdominal abscess. He reports that this was done in preoperative planning. The intra-abdominal abscess was incidental. The patient went to the [facility] for admission. They reviewed the CT and found that it was not able to be drained by interventional radiology. He was awaitingan inpatient medical bed, but got frustrated because he was waiting in the ED and left AGAINST MEDICAL ADVICE. The patient reports that his back pain is actually improved over the past week. He denies any abdominal pain, fever or chills. He has not had any nausea or vomiting. He has had no abdominal surgery. He reports a history of an anal fistula repair in the past. He had a colonoscopy 8 years ago that showed diverticulosis, but he has no history of diverticulitis. The patient is confused andunclear about any additional medical history or details of where testing was performed, but does report that his primary care physician is Dr. Buckley and he goes through the [facility]. Independent Historian: His Cynthia is concerned because of over the past few months he has had more difficulty walking because of the low back pain. She reports no noticed fever or chills recently. Review of External Notes: 03/25/2023 [facility] for a intra-abdominal abscess. 03/24/23 [facility] note which includes the report from the MRI below. 03/23/23 MRI lumbar spine without contrast conclusion by Dr. Walter Arguello MD: 1. Midline gas containing soft tissue or complex cystic mass at the pelvic inlet below the aortic bifurcation measuring 6.3 cm in greatest dimension. Differential considerations would include diverticular abscess. Recommend CT scan of the abdomen and pelvis with IV and oral water-soluble contrast for further evaluation before general surgical consultation. 2. Multi level advanced lumbar disc degeneration, severe right L5-S1 foraminal stenosis, moderate to severe central stenosis at L3-4 with moderate right foraminal stenosis, and severe central/subarticular stenosis at L2-3 3. Mild L1-2 central/left subarticular stenosis and poorly visualized central disc herniation/stenosis at T10-11 4. No fractures identified. Note: Comparison to 03/25/2022 shows new midline pelvic inlet mass/complex cystic collection. Otherwise no obvious interval change in multilevel lumbar spondylolysis. 03/25/2023 CT scan with IV and oral contrast 2 fluid collections adjacent to the sigmoid colon. This may be sequela of diverticulitis or neoplasm. There is some mild wall thickening of the mid sigmoid colon and mild surrounding fat stranding. The collections are unlikely to be able to be drained by interventional radiology drain. Mild left hydronephrosis and hydroureter down to the level of the fluid collection in the pelvis. There is no stone within the ureter. The left testicle is located in the inguinal canal. This is of unknown acuity. Mild subpleural pulmonary fibrosis Report by Dr. Luanne Mishra. Medications: ALPRAZolam (XANAX) 0.25 MG tablet amoxicillin-clavulanate (AUGMENTIN) 875-125 MG tablet aspirin (ASA) 325 MG EC tablet fentaNYL (DURAGESIC) 12 mcg/hr 72 hr patch lisinopril (ZESTRIL) 20 MG tablet multivitamin w/minerals (MULTI-VITAMIN) tablet nitroGLYcerin (NITROSTAT) 0.4 MG sublingual tablet oxyCODONE-acetaminophen (PERCOCET) 5-325 MG tablet simvastatin (ZOCOR) 20 MG tablet Past Medical History: No past medical history on file. Past Surgical History: No past surgical history on file. Physical Exam Patient Vitals for the past 24 hrs: BP Temp Temp src Pulse Resp SpO2 Height Weight 03/27/23 1454 (!) 181/83 98.3 ??F (36.8 ??C) Oral 100 18 94 % 1.702 m (5' 7) 77.1 kg (170 lb) Physical Exam General: Sitting on bed. HENT: No obvious trauma to head Right Ear: External ear normal. Left Ear: External ear normal. Nose: Nose normal. Eyes: Conjunctivae and EOM are normal. Pupils are equal, round, and reactive. Neck: Normal range of motion. Neck supple. No tracheal deviation present. CV: Normal heart sounds. No murmur heard. Pulm/Chest: Effort normal and breath sounds normal. Abd: Soft. No distension. There is no tenderness. There is no rigidity, no rebound and no guarding. M/S: Normal range of motion. Muscle strength is +5 bilateral to the lower extremities proximal and distal. Neuro: Awake and alert. Reflexes are +1 bilateral to the patella and Achilles. Skin: Skin is warm and dry. No rash noted. Not diaphoretic. Psych: Normal mood and affect. Behavior is normal. Emergency Department Course Laboratory: Labs Ordered and Resulted from Time of ED Arrival to Time of ED Departure CBC WITH PLATELETS - Abnormal Result Value WBC Count 9.3 RBC Count 3.52 (*) Hemoglobin 10.5 (*) Hematocrit 32.0 (*) MCV 91 MCH 29.8 MCHC 32.8 RDW 13.8 Platelet Count 677 (*) COMPREHENSIVE METABOLIC PANEL - Abnormal Sodium 142 Potassium 4.0 Chloride 103 Carbon Dioxide (CO2) 25 Anion Gap 14 Urea Nitrogen 11.4 Creatinine 0.81 Calcium 9.3 Glucose 107 (*) Alkaline Phosphatase 118 AST ALT 32 Protein Total 7.6 Albumin 3.3 (*) Bilirubin Total 0.3 GFR Estimate 90 ISTAT GASES LACTATE VENOUS POCT - Abnormal Lactic Acid POCT 0.6 Bicarbonate Venous POCT 29 (*) O2 Sat, Venous POCT 56 (*) pCO2 Venous POCT 41 pH Venous POCT 7.46 (*) pO2 Venous POCT 28 BLOOD CULTURE BLOOD CULTURE Emergency Department Course & Assessments: Interventions: Medications piperacillin-tazobactam (ZOSYN) 4.5 g vial to attach to NS 100 mL bag (has no administration in time range) Assessments: 1704 I evaluated the patient, obtained the above history and performed the physical exam. Independent Interpretation (X-rays, CTs, rhythm strip): None Consultations/Discussion of Management or Tests: 1753 I spoke to the hospitalist, , who has agreed to admit the patient for continued evaluation and treatment. 1816 I consulted the colorectal surgeon, , and he or one of his team members will consult andsee the patient during this admission. He agreed with continued IV antibiotics at this time. Social Determinants of Health affecting care: Healthcare Access/Compliance Disposition: The patient was admitted to the hospital under the care of Dr. Webster. Impression & Plan Medical Decision Making: Matthew Wu is a very pleasant 78 year old year old patient who presents to the emergency department with concern of an intra-abdominal abscess. The patient has had chronic low back pain secondaryto spinal stenosis. He had an outpatient lumbar spine MRI that showed an intra-abdominal abscess. He then had a follow- up CT scan that confirmed this. This was performed at the [facility]. It was recommended he go up to the [facility] to be admitted to the [facility]. He went to their ED. He reports boarding in the ED and got frustrated that he was not going to be admitted soon enough so he eloped and then came to our facility. Since eloping and arriving at our facility, he has had no fever or chills. He has a benign, nonsurgical abdomen. He has no fever or leukocytosis and lactate is normal. He did have a prior leukocytosis, but had already received IV antibiotics during his hospitalization. Blood culture report scanned into the computer from the [facility] shows no growth. I can see that he did have a leukocytosis with left shift from chart review. No blood cultures were obtained at the [facility] ED so 2 blood cultures were obtained here and he was provided Zosyn. He has not been on oral antibiotics since his elopement. The radiologist did not feel that this would be drainable by interventional radiology. The colorectal surgeon has been consulted through the [place]. The patient requires admission for continued IV antibiotics and colorectal surgery consult during his hospitalization. The patient and are in agreement. I spoke to the hospitalist, Dr. Webster, who has agreed to admit the patient for continued evaluation and treatment. Dr. Webster requested that I speak to the colorectal surgeon. I paged and spoke to who agreed with admission to the hospitalist and antibiotics. Of note, patient has [employer] and a BPA indicated his insurance may not cover an admission here, but all hospitals are currently full and he cannot be transferred because of this and requires admission for this medical condition. Diagnosis: ICD-10-CM 1. Intra-abdominal abscess (H) K65.1 Discharge Medications: New Prescriptions No medications on file 03/27/2023 Davis Titus DO Anderson, Robert James, DO 03/27/23 1822 documented in this encounter Miscellaneous Notes * Plan of Care - Aurea New RN - 03/30/2023 6:37 AM CDT A&Ox4. VSS on RA except HTN. Back pain managed w/ Tylenol. PIV SL w/ intermittent Zosyn. Tolerating low fiber diet. Voiding adequately. Up independently in room. Plan to continue ABX w/ repeat imaging vs. possible surgery. Discharge pending. * IR Note - Finn Landry MD - 03/29/2023 5:50 PM CDT IR Patient brought to CT and access to abscess attempted, though unsuccessful. Was as far as placing Yueh needle/catheter, though window of access closed anteriorly due to loops of bowel. Patient positioned supine, prone, and RL decubitus in attempt for access and none amenable. Therefore, percutaneous drainage confirmed to not be an option. Finn Landry MD * IR Note - Finn Landry MD - 03/29/2023 2:35 PM CDT IR Unable to get transport for patient. Will [place] back later to determine if logistically possible to perform procedure in this hospital. Finn Landry MD * Plan of Care - Bozena Benitez RN - 03/29/2023 6:44 AM CDT Date & Time: [id number] Surgery/POD#: Here with pelvic abscess Behavior & Aggression: Green Orientation: A&Ox4 ABNL VS/O2: VSS on RA Pain Management: Denies pain Bowel/Bladder: Continent of B/B. Voiding adequately, passing gas, no BM over shift Drains: PIV SL with int abx Diet: Advanced to low fiber for AM Activity Level: IND Anticipated DC Date: Pending Significant Information: Nicotine patch on L arm. * Plan of Care - Leighann Cole RN - 03/28/2023 10:15 PM CDT Goal Outcome Evaluation: A&O x4. Calm and cooperative. VSS on RA ex hypertensive. Up ad gem. Denies pain/nausea. Voidingspontaneously in urinal. Last BM 03/28. PIV SL between IV antibiotics. Nicotine patch on left arm. Full liquids, ADAT. Daily weights. Potential discharge 03/29. * Plan of Care - Mitra Parekh RN - 03/28/2023 2:47 PM CDT Date & Time: 03/28/23 1145-0786 Fall Risk: No Orientation: A&Ox4 ABNL VS/O2:VSS on RA ABNL Labs: Hgb 9.1 Pain Management: Denies pain. PRN Nicotine lozenges Bowel/Bladder: Up to BR Drains: PIV SL with intermittent abx. Diet:Full liq Activity Level: Ind Tests/Procedures: Abd CT this afternoon Anticipated DC Date: Pending Significant Information: Colorectal following. Nicotine patch on L arm. * Plan of Care - Bozena Benitez RN - 03/28/2023 7:00 AM CDT Date & Time: 2874-2224 Surgery/POD#: Here with inta-abdominal abscess Behavior & Aggression: Green Fall Risk: Yes Orientation: A&Ox4 ABNL VS/O2: VSS on RA, except HTN Pain Management: Some back pain, gave tylenol x1. Was anxious over night, gave xanax x1. Bowel/Bladder: Continent of B/B. Voiding adequately. One small loose BM over shift. Passing gas Drains: PIV SL Diet:Tolerating full liquid diet Activity Level: Up SBA Anticipated DC Date: Pending Significant Information: Edema in lower extremities. Gave nicotine lozenge x1. * Provider Notification - Christiano Montejo RN - 03/27/2023 8:31 PM CDT MD Notification Notified Person: MD Notified Person Name: Dr. Eldon Webster Notification Date/Time: 202903/27/23 Notification Interaction: AMCOM Purpose of Notification: Pt and family requesting [employer] nitroglycerin be ordered Orders Received: Med ordered Comments: * Pharmacy-Admission Medication History - Edith Waletrs RP - 03/27/2023 5:32 PM CDT Pharmacist Admission Medication History Admission medication history is complete. The information provided in this note is only as accurateas the sources available at the time of the update. Medication reconciliation/reorder completed by provider prior to medication history? No Information Source(s): Patient and CareEverywhere/SureScripts via in-person -also reviewed med scribe note from 03/25/23 Pertinent Information: Tramadol recently filled 03/14/23; confirmed with patient not taking. Changes made to [employer] medication list: Added: Augmentin, multivitamin, nitrostat Deleted: None Changed: None Medication Affordability: Not including over the counter (OTC) medications, was there a time in the past 3 months when you did not take your medications as prescribed because of cost?: No Allergies reviewed with patient and updates made in EHR: yes Medication History Completed By: Edith Walters RPH 03/27/2023 5:32 PM Prior to Admission medications Medication Sig Last Dose Taking? Auth Provider ALPRAZolam (XANAX) 0.25 MG tablet Take 0.25 mg by mouth 2 times daily as needed for anxiety Unknownat PRN Yes Unknown, Entered By History amoxicillin-clavulanate (AUGMENTIN) 875-125 MG tablet Take 1 tablet by mouth 2 times daily For 14 days starting 03/26/23 03/27/2023 at AM, 2nd dose in course Yes Unknown, Entered By History aspirin (ASA) 325 MG EC tablet Take 325 mg by mouth daily 03/26/2023 at PM Yes Unknown, Entered By History fentaNYL (DURAGESIC) 12 mcg/hr [address] 1 patch onto the skin every 72 hours remove old patch. 03/27/2023 at applied in AM Yes Unknown, Entered By History lisinopril (ZESTRIL) 20 MG tablet Take 20 mg by mouth daily 03/26/2023 at PM Yes Unknown, Entered By History multivitamin w/minerals (MULTI-VITAMIN) tablet Take 1 tablet by mouth daily 03/27/2023 at AM Yes Unknown, Entered By History nitroGLYcerin (NITROSTAT) 0.[address] 0.4 mg under the tongue every 5 minutes asneeded for chest pain For chest pain place 1 tablet under the tongue every 5 minutes for 3 doses. If symptoms persist 5 minutes after 1st dose call 911. Unknown at PRN, never taken but has home supply Yes Unknown, Entered By History oxyCODONE-acetaminophen (PERCOCET) 5-325 MG tablet Take 1 tablet by mouth every 6 hours as needed for severe pain 03/27/2023 at AM Yes Unknown, Entered By History simvastatin (ZOCOR) 20 MG tablet Take 20 mg by mouth At Bedtime 03/26/2023 at PM Yes Unknown, EnteredBy History documented in this encounter Plan of Treatment Not on file documented as of this encounter Procedures Procedure Name Priority Date/Time Associated Diagnosis Comments BASIC METABOLIC PANEL Routine 03/30/2023 6:36 AM CDT CBC WITH PLATELETS Routine 03/30/2023 6: [address] ABDOMEN PERITONEUM ABSCESS DRAIN W CATH PLACE STAT 03/29/2023 5:58 PM CDT ECHO COMPLETE Routine 03/29/2023 9:[address] ABDOMEN PELVIS W CONTRAST Routine 03/28/2023 2:03 PM CDT BASIC METABOLIC PANEL Routine 03/28/2023 6:52 AM CDT CBC WITH PLATELETS Routine 03/28/2023 6: 52 AM CDT NT PROBNP INPATIENT Add-On 03/27/2023 8 :56 PM CDT IRON AND IRON BINDING CAPACITY Add-On 03/27/2023 8:56 PM CDT BLOOD CULTURE STAT 03/27/2023 6:10 PM CDT ISTAT GASES LACTATE VENOUS POCT STAT 03/27/2023 3:12 PM CDT EXTRA TUBE STAT 03/27/2023 3:11 PM CDT EXTRA BLOOD CULTURE BOTTLE STAT 03/27/2023 3:11 PM CDT BLOOD CULTURE STAT 03/27/2023 3:11 PM CDT EXTRA TUBE STAT 03/27/2023 3:10 PM CDT EXTRA RED TOP TUBE STAT 03/27/2023 3: 10 PM CDT EXTRA BLUE TOP TUBE STAT 03/27/2023 3 :10 PM CDT COMPREHENSIVE METABOLIC PANEL STAT 03/27/2023 3:10 PM CDT VITAMIN B12 Add-On 03/27/2023 3:10 PM CDT CBC WITH PLATELETS STAT 03/27/2023 3: 10 PM CDT documented in this encounter Results * Basic metabolic panel (03/30/2023 6:36 AM CDT) [facility] Sodium 144 136 - 145 mmol/L 03/30/2023 7:46 AM CDT LABORATORY Potassium 3.4 3.4 - 5.3 mmol/L 03/30/2023 7:46 AM CDT LABORATORY Chloride 106 98 - 107 mmol/L 03/30/2023 7:46 AM CDT LABORATORY Carbon Dioxide (CO2) 28 22 - 29 mmol/L 03/30/2023 7:46 AM CDT LABORATORY Anion Gap 10 7 - 15 mmol/L 03/30/2023 7:46 AM CDT LABORATORY Urea Nitrogen 9.0 8.0 - 23.0 mg/dL 03/30/2023 7:46 AM CDT LABORATORY Creatinine 0.98 0.67 - 1.17 mg/dL 03/30/2023 7:46 AM CDT LABORATORY Calcium 8.8 8.8 - 10.2 mg/dL 03/30/2023 7:46 AM CDT LABORATORY Glucose 94 70 - 99 mg/dL 03/30/2023 7:46 AM CDT LABORATORY GFR Estimate 78 >60 mL/min/1.7 3m2 03/30/2023 7:46 AM CDT LABORATORY Blood STRUCTURE OF LEFT HAND / Unknown Venipuncture / Unknown 03/30/2023 6:36 AM CDT 03/30/2023 7:16 AM CDT Norberto Hinds MD LAB - BLOOD [facility] Organization Address City/State/ZIP Co de Phone Number LABORATORY [facility] [address], [address] [place] [address], [facility] [phone] * (ABNORMAL) CBC with platelets (03/30/2023 6:36 AM CDT) [facility] Signature WBC Count 8.0 4.0 - 11.0 10e3/uL 03/30/2023 7:19 AM CDT LABORATORY RBC Count 3.20(L) 4.40 - 5.90 10e6/uL 03/30/2023 7:19 AM CDT LABORATORY Hemoglobin 9.5(L) 13.3 - 17.7 g/dL 03/30/2023 7:19 AM CDT LABORATORY Hematocrit 29.6(L) 40.0 - 53.0 % 03/30/2023 7:19 AM CDT LABORATORY MCV 93 78 - 100 fL 03/30/2023 7:19 AM CDT LABORATORY MCH 29.7 26.5 - 33.0 pg 03/30/2023 7:19 AM CDT LABORATORY MCHC 32.1 31.5 - 36.5 g/dL 03/30/2023 7:19 AM CDT LABORATORY RDW 13.8 10.0 - 15.0 % 03/30/2023 7:19 AM CDT LABORATORY Platelet Count 613(H) 150 - 450 10e3/uL 03/30/2023 7:19 AM CDT LABORATORY Blood STRUCTURE OF LEFT HAND / Unknown Venipuncture / Unknown 03/30/2023 6:36 AM CDT 03/30/2023 7:16 AM CDT Norberto Hinds MD LAB - BLOOD [place] [place] [facility] Organization Address City/State/ZIP Co de Phone Number LABORATORY [facility] [address], [address] [place] [address], [facility] [phone] * CT Abdomen Peritonium Abscess Drainage (03/29/2023 5:58 PM CDT) Anatomical Region Laterality Modality Abdomen/Pelvis Computed Tomogra phy Impressions 03/30/2023 7:55 AM CDT IMPRESSION: Unsuccessful attempt at percutaneous abscess to deep abscess cavity near L5-S1. Anterior, posterior transgluteal, and right lateral decubitus position with left lower quadrant window all obscured by bowel, bone, vasculature, and left ureter. Therefore, it is felt percutaneous drainage is not an option. FINN LANDRY MD Narrative 03/30/2023 7:[address] ABDOMEN PERITONEUM ABSCESS DRAIN WITH CATH PLACE March 29, 2023 at 1758 hours HISTORY: 78-year-old patient with abscess in the lower abdomen/pelvis adjacent to L5-S1 and just below the aortic bifurcation. This is a difficult location for access, though attempt will be made percutaneously. TECHNIQUE: Patient was brought to the radiology department and informed consent obtained. Patient was initially placed in a supine position and skin overlying the lower abdomen was prepped and draped in standard sterile fashion. 1% lidocaine was used for local anesthesia. Attempts were made with CT guidance to access the abscess cavity anteriorly, though with mobile loops of bowel, this window closed during the procedure. Patient was then placed in a prone position and sought for a right transgluteal access, though this window also obscured by rectum and bone. Patient was then placed in the right lateral decubitus position and attempts were be made for left lower quadrant approach. However, multiple small vessels noted between the psoas muscle and sigmoid colon, as well as the ureter, therefore this access option not felt to be feasible. Iliac arterial system also overlying this area. Therefore, in summary, unable to obtain percutaneous access to this cavity, unfortunately. Sedation was administered during the procedure. MEDICATIONS: A moderate level of sedation was achieved with 1 mg IV Versed and 50 mcg IV fentanyl. Sedation time: 45 minutes. Please note the medications were administered by resource nursing staff under my direct supervision. Patient's vital signs were monitored and remained stable throughout the procedure. Contrast: None. FINDINGS: Radiation dose for this scan was reduced using automated exposure control, adjustment of the mA and/or kV according to patient size, or iterative reconstruction technique. Total of nine CT sequences obtained throughout the procedure. Initially, images obtained in supine position demonstrating no anterior ability to access the collection, prone position where a right transgluteal thought to be an option, though found to not be an option. Subsequently, right lateral decubitus position was obtained without appropriate access given overlying vasculature and ureter. Ultimately, unable to obtain percutaneous access. Procedure Note Finn Landry MD - 03/30/2023 CT ABDOMEN PERITONEUM ABSCESS DRAIN WITH CATH PLACE March 29, 2023 at 1758 hours HISTORY: 78-year-old patient with abscess in the lower abdomen/pelvis adjacent to L5-S1 and just below the aortic bifurcation. This is a difficult location for access, though attempt will be made percutaneously. TECHNIQUE: Patient was brought to the radiology department and informed consent obtained. Patient was initially placed in a supine position and skin overlying the lower abdomen was prepped and draped in standard sterile fashion. 1% lidocaine was used for local anesthesia. Attempts were made with CT guidance to access the abscess cavity anteriorly, though with mobile loops of bowel, this window closed during the procedure. Patient was then placed in a prone position and sought for a right transgluteal access, though this window also obscured by rectum and bone. Patient was then placed in the right lateral decubitus position and attempts were be made for left lower quadrant approach. However, multiple small vessels noted between the psoas muscle and sigmoid colon, as well as the ureter, therefore this access option not felt to be feasible. Iliac arterial system also overlying this area. Therefore, in summary, unable to obtain percutaneous access to this cavity, unfortunately. Sedation was administered during the procedure. MEDICATIONS: A moderate level of sedation was achieved with 1 mg IV Versed and 50 mcg IV fentanyl. Sedation time: 45 minutes. Please note the medications were administered by resource nursing staff under my direct supervision. Patient's vital signs were monitored and remained stable throughout the procedure. Contrast: None. FINDINGS: Radiation dose for this scan was reduced using automated exposure control, adjustment of the mA and/or kV according to patient size, or iterative reconstruction technique. Total of nine CT sequences obtained throughout the procedure. Initially, images obtained in supine position demonstrating no anterior ability to access the collection, prone position where a right transgluteal thought to be an option, though found to not be an option. Subsequently, right lateral decubitus position was obtained without appropriate access given overlying vasculature and ureter. Ultimately, unable to obtain percutaneous access. IMPRESSION: Unsuccessful attempt at percutaneous abscess to deep abscess cavity near L5-S1. Anterior, posterior transgluteal, and right lateral decubitus position with left lower quadrant window all obscured by bowel, bone, vasculature, and left ureter. Therefore, it is felt percutaneous drainage is not an option. FINN LANDRY MD Finn Landry MD IMG CT ORDERAB LES * ECHO COMPLETE (03/29/2023 9:39 AM CDT) LVEF 55-60% CARDIOLOGY RESULTS Anatomical Region Laterality Modality Echocardiography 03/29/2023 8:24 AM CDT Narrative 03/29/2023 11:27 AM CDT [id number]^DARIN^ELDON^E [facility] [address] [place], [place] [address] Name: MATTHEW WU : 1945 Study Date: 03/29/2023 08:24 AM Age: 78 yrs Gender: Male Patient Location: [facility] Reason For Study: Edema Ordering Physician: ELDON WEBSTER Referring Physician: ELDON WEBSTER Performed By: Khadijah Holland BSA: 1.9 m2 Height: 67 in Weight: 170 lb HR: 92 Procedure Complete Echo Adult. Interpretation Summary The left ventricle is normal in size. The visual ejection fraction is 55-60%. Diastolic Doppler findings (E/E' ratio and/or other parameters) suggest left ventricular filling pressures are indeterminate. No regional wall motion abnormalities noted. No significant valvular heart disease. Left Ventricle The left ventricle is normal in size. There is normal left ventricular wall thickness. The visual ejection fraction is 55-60%. Diastolic Doppler findings (E/E' ratio and/or other parameters) suggest left ventricular filling pressures are indeterminate. No regional wall motion abnormalities noted. Right Ventricle The right ventricle is normal in size and function. Atria Normal left atrial size. Right atrial size is normal. There is no color Doppler evidence of an atrial shunt. Mitral Valve The mitral valve leaflets are mildly thickened. There is trace mitral regurgitation. Tricuspid Valve There is trace tricuspid regurgitation. Right ventricular systolic pressure could not be approximated due to inadequate tricuspid regurgitation. Aortic Valve There is trivial trileaflet aortic sclerosis. No aortic regurgitation is present. Pulmonic Valve There is trace pulmonic valvular regurgitation. Vessels Normal size aorta. The aortic root is normal size. Pericardium There is no pericardial effusion. Rhythm Sinus rhythm was noted. MMode/2D Measurements & Calculations IVSd: 0.72 cm LVIDd: 4.8 cm LVIDs: 2.8 cm LVPWd: 0.85 cm FS: 41.4 % LV mass(C)d: 121.7 grams LV mass(C)dI: 64.5 grams/m2 Ao root diam: 3.1 cm asc Aorta Diam: 3.6 cm LVOT diam: 2.0 cm LVOT area: 3.1 cm2 Ao root diam Index (cm/m2): 1.6 asc Aorta Diam Index (cm/m2): 1.9 LA Volume (BP): 59.9 ml LA Volume Index (BP): 31.7 ml/m2 RWT: 0.36 TAPSE: 2.8 cm Doppler Measurements & Calculations MV E max nelson: 114.0 cm/sec MV A max nelson: 128.0 cm/sec MV E/A: 0.89 MV dec slope: 655.0 cm/sec2 MV dec time: 0.17 sec Ao V2 max: 213.0 cm/sec Ao max P.0 mmHg Ao V2 mean: 151.0 cm/sec Ao mean P.0 mmHg Ao V2 VTI: 39.5 cm DIOR(I,D): 2.3 cm2 DIOR(V,D): 1.9 cm2 LV V1 max P.8 mmHg LV V1 max: 130.0 cm/sec LV V1 VTI: 28.5 cm SV(LVOT): 89.5 ml SI(LVOT): 47.4 ml/m2 PA V2 max: 112.0 cm/sec PA max P.0 mmHg PA acc time: 0.11 sec AV Nelson Ratio (DI): 0.61 DIOR Index (cm2/m2): 1.2 E/E' av.0 Lateral E/e': 8.9 Medial E/e': 11.1 Report approved by: [employer] 03/29/2023 11:27 AM Procedure Note Jayme Clements MD - 03/29/2023 [id number]^DARIN^ELDON^Maru [facility] [address] [place] [address] Name: MATTHEW WU : 1945 Study Date: 03/29/2023 08:24 AM Age: 78 yrs Gender: Male Patient Location: [facility] Reason For Study: Edema Ordering Physician: ELDON WEBSTER Referring Physician: ELDON WEBSTER Performed By: Khadijah Holland BSA: 1.9 m2 Height: 67 in Weight: 170 lb HR: 92 Procedure Complete Echo Adult. Interpretation Summary The left ventricle is normal in size. The visual ejection fraction is 55-60%. Diastolic Doppler findings (E/E' ratio and/or other parameters) suggestleft ventricular filling pressures are indeterminate. No regional wall motion abnormalities noted. No significant valvular heart disease. Left Ventricle The left ventricle is normal in size. There is normal left ventricularwall thickness. The visual ejection fraction is 55-60%. Diastolic Dopplerfindings (E/E' ratio and/or other parameters) suggest left ventricular filling pressures are indeterminate. No regional wall motion abnormalitiesnoted. Right Ventricle The right ventricle is normal in size and function. Atria Normal left atrial size. Right atrial size is normal. There is no color Doppler evidence of an atrial shunt. Mitral Valve The mitral valve leaflets are mildly thickened. There is trace mitral regurgitation. Tricuspid Valve There is trace tricuspid regurgitation. Right ventricular systolicpressure could not be approximated due to inadequate tricuspid regurgitation. Aortic Valve There is trivial trileaflet aortic sclerosis. No aortic regurgitation is present. Pulmonic Valve There is trace pulmonic valvular regurgitation. Vessels Normal size aorta. The aortic root is normal size. Pericardium There is no pericardial effusion. Rhythm Sinus rhythm was noted. MMode/2D Measurements & Calculations IVSd: 0.72 cm LVIDd: 4.8 cm LVIDs: 2.8 cm LVPWd: 0.85 cm FS: 41.4 % LV mass(C)d: 121.7 grams LV mass(C)dI: 64.5 grams/m2 Ao root diam: 3.1 cm asc Aorta Diam: 3.6 cm LVOT diam: 2.0 cm LVOT area: 3.1 cm2 Ao root diam Index (cm/m2): 1.6 asc Aorta Diam Index (cm/m2): 1.9 LA Volume (BP): 59.9 ml LA Volume Index (BP): 31.7 ml/m2 RWT: 0.36 TAPSE: 2.8 cm Doppler Measurements & Calculations MV E max nelson: 114.0 cm/sec MV A max nelson: 128.0 cm/sec MV E/A: 0.89 MV dec slope: 655.0 cm/sec2 MV dec time: 0.17 sec Ao V2 max: 213.0 cm/sec Ao max P.0 mmHg Ao V2 mean: 151.0 cm/sec Ao mean P.0 mmHg Ao V2 VTI: 39.5 cm DOIR(I,D): 2.3 cm2 DIOR(V,D): 1.9 cm2 LV V1 max P.8 mmHg LV V1 max: 130.0 cm/sec LV V1 VTI: 28.5 cm SV(LVOT): 89.5 ml SI(LVOT): 47.4 ml/m2 PA V2 max: 112.0 cm/sec PA max P.0 mmHg PA acc time: 0.11 sec AV Nelson Ratio (DI): 0.61 DIOR Index (cm2/m2): 1.2 E/E' av.0 Lateral E/e': 8.9 Medial E/e': 11.1 Report approved by: [employer] 03/29/2023 11:27 AM Eldon Webster MD CV ECHO ORDERABLES * CT Abdomen Pelvis w Contrast (03/28/2023 2:03 PM CDT) Anatomical Region Laterality Modality Abdomen/Pelvis, SUBRAD CT SISSY DY, UMP CT ABDOMEN PELVIS, RAD CT Computed Tomography 03/28/2023 2:03 PM CDT Impressions 03/28/2023 2:16 PM CDT IMPRESSION: 1. ??Acute sigmoid diverticulitis with a 5 cm posterior superior pelvic abscess. 2. ?? 2.3 cm anterior loculation versus separate, adjacent anterior abscess. 3. ??Mild left hydronephrosis and left ureterectasis, likely secondary to mass effect upon the distal ureter from the pelvic abscess. Narrative 03/28/2023 2:16 PM CDT EXAM: CT ABDOMEN PELVIS W CONTRAST LOCATION: [facility] DATE: 03/28/2023 INDICATION: Diverticulitis. Pelvic abscess. COMPARISON: None. TECHNIQUE: CT scan of the abdomen and pelvis was performed following injection of IV contrast. Multiplanar reformats were obtained. Dose reduction techniques were used. CONTRAST: 82mL Isovue 370 FINDINGS: LOWER CHEST: Mild paraseptal emphysema. HEPATOBILIARY: Normal. PANCREAS: Normal. SPLEEN: Normal. ADRENAL GLANDS: Normal. KIDNEYS/BLADDER: Mild left hydronephrosis and left ureterectasis likely secondary to mass effect from the left pelvic abscess. Simple appearing bilateral renal cysts. No follow-up required for these. BOWEL: Normal caliber small bowel. Small appendicolith within a normal-appearing appendix. 5 x 5 x 4.1 cm peripheral enhancing fluid and gas collection within the posterior superior aspect of the pelvis, abutting the superior aspect of the sigmoid colon. There is either an anterior loculation or separate, anterior fluid collection, measuring 2.3 x 2 cm (image #125 series 3). Moderate sigmoid colon wall thickening with mild pericolonic fat stranding consistent with diverticulitis. Sigmoid colon diverticulosis. Normal caliber colon. LYMPH NODES: Normal. VASCULATURE: Moderate, partially calcified atherosclerotic changes throughout a normal caliber abdominal aorta. PELVIC ORGANS: Mild prostatic enlargement. Soft tissue thickening of the inferior aspect of the visualized left inguinal canal. MUSCULOSKELETAL: Multilevel degenerative disc disease. Degenerative changes lumbar facet joints and bilateral sacroiliac joints. Procedure Note Ned Ortiz MD - 03/28/2023 EXAM: CT ABDOMEN PELVIS W CONTRAST LOCATION: [facility] DATE: 03/28/2023 INDICATION: Diverticulitis. Pelvic abscess. COMPARISON: None. TECHNIQUE: CT scan of the abdomen and pelvis was performed followinginjection of IV contrast. Multiplanar reformats were obtained. Dosereduction techniques were used. CONTRAST: 82mL Isovue 370 FINDINGS: LOWER CHEST: Mild paraseptal emphysema. HEPATOBILIARY: Normal. PANCREAS: Normal. SPLEEN: Normal. ADRENAL GLANDS: Normal. KIDNEYS/BLADDER: Mild left hydronephrosis and left ureterectasis likelysecondary to mass effect from the left pelvic abscess. Simple appearingbilateral renal cysts. No follow-up required for these. BOWEL: Normal caliber small bowel. Small appendicolith within anormal-appearing appendix. 5 x 5 x 4.1 cm peripheral enhancing fluid andgas collection within the posterior superior aspect of the pelvis,abutting the superior aspect of the sigmoid colon. There is either an anterior loculation or separate, anterior fluidcollection, measuring 2.3 x 2 cm (image #125 series 3). Moderate sigmoidcolon wall thickening with mild pericolonic fat stranding consistent withdiverticulitis. Sigmoid colon diverticulosis. Normal caliber colon. LYMPH NODES: Normal. VASCULATURE: Moderate, partially calcified atherosclerotic changesthroughout a normal caliber abdominal aorta. PELVIC ORGANS: Mild prostatic enlargement. Soft tissue thickening of theinferior aspect of the visualized left inguinal canal. MUSCULOSKELETAL: Multilevel degenerative disc disease. Degenerativechanges lumbar facet joints and bilateral sacroiliac joints. IMPRESSION: 1. Acute sigmoid diverticulitis with a 5 cm posterior superior pelvicabscess. 2. 2.3 cm anterior loculation versus separate, adjacent anteriorabscess. 3. Mild left hydronephrosis and left ureterectasis, likely secondary tomass effect upon the distal ureter from the pelvic abscess. Norberto Hinds MD [facility] [place] S * (ABNORMAL) CBC with platelets (03/28/2023 6:52 AM CDT) [facility] WBC Count 9.5 4.0 - 11.0 10e3/uL 03/28/2023 7:50 AM CDT LABORATORY RBC Count 3.06(L) 4.40 - 5.90 10e6/uL 03/28/2023 7:50 AM CDT LABORATORY Hemoglobin 9.1(L) 13.3 - 17.7 g/dL 03/28/2023 7:50 AM CDT LABORATORY Hematocrit 27.9(L) 40.0 - 53.0 % 03/28/2023 7:50 AM CDT LABORATORY MCV 91 78 - 100 fL 03/28/2023 7:50 AM CDT LABORATORY MCH 29.7 26.5 - 33.0 pg 03/28/2023 7:50 AM CDT LABORATORY MCHC 32.6 31.5 - 36.5 g/dL 03/28/2023 7:50 AM CDT LABORATORY RDW 13.9 10.0 - 15.0 % 03/28/2023 7:50 AM CDT LABORATORY Platelet Count 614(H) 150 - 450 10e3/uL 03/28/2023 7:50 AM CDT LABORATORY Blood STRUCTURE OF LEFT UPPER LIMB / Unknown Venipuncture / Unknown 03/28/2023 6:52 AM CDT 03/28/2023 7:46 AM CDT Eldon Webster MD LAB - BLOOD ORDERABL ES LABORATORY [facility] [address], [address] [place] [address], [facility] [phone] * Basic metabolic panel (03/28/2023 6:52 AM CDT) Sodium 140 136 - 145 mmol/L 03/28/2023 8:11 AM CDT LABORATORY Potassium 3.6 3.4 - 5.3 mmol/L 03/28/2023 8:11 AM CDT LABORATORY Chloride 105 98 - 107 mmol/L 03/28/2023 8:11 AM CDT LABORATORY Carbon Dioxide (CO2) 25 22 - 29 mmol/L 03/28/2023 8:11 AM CDT LABORATORY Anion Gap 10 7 - 15 mmol/L 03/28/2023 8:11 AM CDT LABORATORY Urea Nitrogen 10.3 8.0 - 23.0 mg/dL 03/28/2023 8:11 AM CDT LABORATORY Creatinine 0.83 0.67 - 1.17 mg/dL 03/28/2023 8:11 AM CDT LABORATORY Calcium 8.8 8.8 - 10.2 mg/dL 03/28/2023 8:11 AM CDT LABORATORY Glucose 90 70 - 99 mg/dL 03/28/2023 8:11 AM CDT LABORATORY GFR Estimate 89 >60 mL/min/1.7 3m2 03/28/2023 8:11 AM CDT LABORATORY Blood STRUCTURE OF LEFT UPPER LIMB / Unknown Venipuncture / Unknown 03/28/2023 6:52 AM CDT 03/28/2023 7:46 AM CDT Eldon Webster MD LAB - BLOOD ORDERABL ES LABORATORY [facility] [address], [address] [place] [address], [place] [phone] * Nt probnp inpatient (03/27/2023 8:56 PM CDT) N terminal Pro BNP Inpatient 591 0 - 1,800 pg/mL 03/28/2023 1:59 AM CDT LABORATORY Comment: Reference range shown and results flagged as abnormal are suggested inpatient cut points for confirming diagnosis if CHF in an acute setting. Establishing a baseline value for each individual patient is useful for follow-up. An inpatient or emergency department NT-proPBNP <300 pg/mL effectively rules out acute CHF, with 99% negative predictive value. The outpatient non-acute reference range for ruling out CHF is: 0-125 pg/mL (age 18 to less than 75) 0-450 pg/mL (age 75 yrs and older) Blood STRUCTURE OF RIGHT UPPER LIMB / Unknown Venipuncture / Unknown 03/27/2023 8:56 PM CDT 03/27/2023 9:51 PM CDT Eldon Webster MD LAB - BLOOD ORDERABL ES LABORATORY [facility] [address], [address] [place] [address], [place] [phone] * (ABNORMAL) Iron and iron binding capacity (03/27/2023 8:56 PM CDT) Iron 39(L) 61 - 157 ug/dL 03/27/2023 10:16 PM CDT LABORATORY Iron Binding Capacity 164(L) 240 - 430 ug/dL 03/27/2023 10:16 PM CDT LABORATORY Iron Sat Index 24 15 - 46 % 03/27/2023 10:16 PM CDT LABORATORY Blood STRUCTURE OF RIGHT UPPER LIMB / Unknown Venipuncture / Unknown 03/27/2023 8:56 PM CDT 03/27/2023 9:51 PM CDT Eldon Webster MD LAB - BLOOD ORDERABL ES LABORATORY [facility] [address], [address] [place] [address], [place] [phone] * Blood Culture Peripheral Blood (03/27/2023 6:10 PM CDT) Pathologist [facility] Culture No Growth 04/01/2023 9:31 PM CDT [facility] LABORATORY Blood BLOOD SPECIMEN / Unknown Venipuncture / Unknown 03/27/2023 6:10 PM CDT 03/27/2023 6:13 PM CDT Davis Titus DO LAB - MICRO GEN ERAL ORDERABLES [facility] LABORATORY [facility] Lab [address], [address] [place] [address], [place] [phone] * (ABNORMAL) iStat Gases (lactate) venous, POCT (03/27/2023 3:12 PM CDT) Lactic Acid POCT 0.6 <=2.0 mmol/L 03/27/2023 3:16 PM CDT LABORATORY POC Bicarbonate Venous POCT 29(H) 21 - 28 mmol/L 03/27/2023 3:16 PM CDT LABORATORY POC O2 Sat, Venous POCT 56(L) 94 - 100 % 03/27/2023 3:16 PM CDT LABORATORY POC pCO2 Venous POCT 41 40 - 50 mm Hg 03/27/2023 3:16 PM CDT LABORATORY POC pH Venous POCT 7.46(H) 7.32 - 7.43 03/27/2023 3:16 PM CDT LABORATORY POC pO2 Venous POCT 28 25 - 47 mm Hg 03/27/2023 3:16 PM CDT LABORATORY POC Blood, venous BLOOD SPECIMEN / Unknown 03/27/2023 3:12 PM CDT 03/27/2023 3:16 PM CDT Provider Unknown LAB - BEAKER POCT LABORATORY POC [facility] [address], [address] [place] [address], [place] [phone] * Blood Culture Peripheral Blood (03/27/2023 3:11 PM CDT) Culture No Growth 04/01/2023 9:31 PM CDT [facility] LABORATORY Blood BLOOD SPECIMEN / Unknown Venipuncture / Unknown 03/27/2023 3:11 PM CDT 03/27/2023 6:14 PM CDT Davis Titus DO LAB - MICRO GEN ERAL ORDERABLES [facility] LABORATORY [facility] Lab [address] [facility], [address] [place] [address], [place] [phone] * Extra Blood Culture Bottle (03/27/2023 3:11 PM CDT) Hold Specimen JIC 03/27/2023 4:32 PM CDT LABORATORY Blood STRUCTURE OF RIGHT UPPER LIMB / Unknown Venipuncture / Unknown 03/27/2023 3:11 PM CDT 03/27/2023 3:19 PM CDT Davis Titus DO LAB - BLOOD ORD ERABLES LABORATORY [facility] [address], [address] [place] [address], [place] [phone] * Vitamin B12 (03/27/2023 3:10 PM CDT) Vitamin B12 1,230 232 - 1,245 pg/mL 03/28/2023 12:47 AM CDT LABORATORY Blood BLOOD SPECIMEN / Unknown Venipuncture / Unknown 03/27/2023 3:10 PM CDT 03/27/2023 3:19 PM CDT Eldon Webster MD LAB - BLOOD ORDERABL ES LABORATORY [facility] [address] [facility] [address], [address] [place] [address], [place] [phone] * Extra Red Top Tube (03/27/2023 3:10 PM CDT) Hold Specimen [facility] 03/27/2023 4:32 PM CDT LABORATORY Blood STRUCTURE OF RIGHT UPPER LIMB / Unknown Venipuncture / Unknown 03/27/2023 3:10 PM CDT 03/27/2023 3:19 PM CDT Davis Titus DO LAB - BLOOD ORD ERABLES LABORATORY [facility] [address], [address] [place] [address], [place] [phone] * Extra Blue Top Tube (03/27/2023 3:10 PM CDT) Hold Specimen [facility] 03/27/2023 4:32 PM CDT LABORATORY Blood STRUCTURE OF RIGHT UPPER LIMB / Unknown Venipuncture / Unknown 03/27/2023 3:10 PM CDT 03/27/2023 3:19 PM CDT Davis Titus DO LAB - BLOOD ORD ERABLES LABORATORY [facility] [address], [address] [place] [address], [facility] [phone] * (ABNORMAL) Comprehensive metabolic panel (03/27/2023 3:10 PM CDT) Sodium 142 136 - 145 mmol/L 03/27/2023 3:56 PM CDT LABORATORY Potassium 4.0 3.4 - 5.3 mmol/L 03/27/2023 3:56 PM CDT LABORATORY Chloride 103 98 - 107 mmol/L 03/27/2023 3:56 PM CDT LABORATORY Carbon Dioxide (CO2) 25 22 - 29 mmol/L 03/27/2023 3:56 PM CDT LABORATORY Anion Gap 14 7 - 15 mmol/L 03/27/2023 3:56 PM CDT LABORATORY Urea Nitrogen 11.4 8.0 - 23.0 mg/dL 03/27/2023 3:56 PM CDT LABORATORY Creatinine 0.81 0.67 - 1.17 mg/dL 03/27/2023 3:56 PM CDT LABORATORY Calcium 9.3 8.8 - 10.2 mg/dL 03/27/2023 3:56 PM CDT LABORATORY Glucose 107(H) 70 - 99 mg/dL 03/27/2023 3:56 PM CDT LABORATORY Alkaline Phosphatase 118 40 - 129 U/L 03/27/2023 3:56 PM CDT LABORATORY AST 03/27/2023 3:56 PM CDT LABORATORY Comment: Hemolyzed, results maybe affected Reference intervals for this test were updated on 01/04/2023 to more accurately reflect our healthy population. There may be differences in the flagging of prior results with similar values performed with this method. Interpretation of those prior results can be made in the context of the updated reference intervals. ALT 32 0 - 70 U/L 03/27/2023 3:56 PM CDT LABORATORY Comment:Reference intervals for this test were updated on 01/04/2023 to more accurately reflect our healthy population. There may be differences in the flagging of prior results with similar values performed with this method. Interpretation of those prior results can be made in the context of the updated reference intervals. Protein Total 7.6 6.4 - 8.3 g/dL 03/27/2023 3:56 PM CDT LABORATORY Albumin 3.3(L) 3.5 - 5.2 g/dL 03/27/2023 3:56 PM CDT LABORATORY Bilirubin Total 0.3 <=1.2 mg/dL 03/27/2023 3:56 PM CDT LABORATORY GFR Estimate 90 >60 mL/min/1. 73m2 03/27/2023 3:56 PM CDT LABORATORY Blood BLOOD SPECIMEN / Unknown Venipuncture / Unknown 03/27/2023 3:10 PM CDT 03/27/2023 3:19 PM CDT Davis Titus DO LAB - BLOOD ORD ERABLES LABORATORY [facility] [address], [address] [place] [address], [facility] [phone] * (ABNORMAL) CBC with platelets (03/27/2023 3:10 PM CDT) WBC Count 9.3 4.0 - 11.0 10e3/uL 03/27/2023 3:21 PM CDT LABORATORY RBC Count 3.52(L) 4.40 - 5.90 10e6/uL 03/27/2023 3:21 PM CDT LABORATORY Hemoglobin 10.5(L) 13.3 - 17.7 g/dL 03/27/2023 3:21 PM CDT LABORATORY Hematocrit 32.0(L) 40.0 - 53.0 % 03/27/2023 3:21 PM CDT LABORATORY MCV 91 78 - 100 fL 03/27/2023 3:21 PM CDT LABORATORY MCH 29.8 26.5 - 33.0 pg 03/27/2023 3:21 PM CDT LABORATORY MCHC 32.8 31.5 - 36.5 g/dL 03/27/2023 3:21 PM CDT LABORATORY RDW 13.8 10.0 - 15.0 % 03/27/2023 3:21 PM CDT LABORATORY Platelet Count 677(H) 150 - 450 10e3/uL 03/27/2023 3:21 PM CDT LABORATORY Blood BLOOD SPECIMEN / Unknown Venipuncture / Unknown 03/27/2023 3:10 PM CDT 03/27/2023 3:19 PM CDT Davis Titus DO LAB - BLOOD ORD ERABLES LABORATORY [facility] [address], [address] [place] [address], [facility] [phone] documented in this encounter Visit Diagnoses Diagnosis Intra-abdominal abscess (H)- Primary Peritoneal abscess Intra-abdominal abscess (H) Peritoneal abscess Constipation, unspecified constipation type documented in this encounter Admitting Diagnoses Diagnosis Intra-abdominal abscess (H) Peritoneal abscess documented in this encounter Administered Medications Inactive Administered Medications - up to 3 most recent administrations Medication Order MAR Action Action Date Dose Rate Site acetaminophen (TYLENOL) Suppository 650 mg 650 mg, Rectal, EVERY 6 HOURS PRN, mild pain, other, and adjunct with moderate or severe pain or per patient request, Starting on 03/27/23 at 194, Alternate with ibuprofen if ordered. Maximum acetaminophen dose from all sources = 75 mg/kg/day not to exceed 4 grams/day. acetaminophen (TYLENOL) tablet 650 mg 650 mg, Oral, EVERY 6 HOURS PRN, mild pain, other, and adjunct with moderate or severe pain or per patient request, Starting on 03/27/23 at 194, Alternate with ibuprofen if ordered. Maximum acetaminophen dose from all sources = 75 mg/kg/day not to exceed 4 grams/day. $Given 03/30/2023 12:45 AM CDT 650 mg $Given 03/29/2023 12:03 PM CDT 650 mg $Given 03/28/2023 5:53 AM CDT 650 mg ALPRAZolam (XANAX) tablet 0.25 mg 0.25 mg, Oral, 2 TIMES DAILY PRN, anxiety, Starting on 03/27/23 at 1949, Avoid taking with grapefruit juice $Given 03/28/2023 2:45 AM CDT 0.25 mg fentaNYL (DURAGESIC) 12 mcg/hr 72 hr patch 1 patch 1 patch (12 mcg), Transdermal, EVERY 72 HOURS, Administer over 72 Hours, First dose on 03/27/23 at 2000, Used fentaNYL patches must be disposed of by placing the patch in the slot of the CsRX container. Reminder: Remove previous patch before applying new patch., Long-acting opiates are recommended to ONLY use in the setting of chronic opiate use. Does this patient have history of chronic opiate use? Yes $Patch/Med Applied 03/27/2023 9:49 PM CDT 1 patch Right Chest fentaNYL (PF) (SUBLIMAZE) injection 25-50 mcg 25-50 mcg, Intravenous, EVERY 5 MIN PRN, severe pain, If inadequate response may repeat 25 mcg IV slowly every 5 min PRN severe pain; when verbally requested by provider., Administer over 2 Minutes, Starting on Wed03/29/23 at 1305, Doses can be exceeded under direct oversight of patient by physician., IR Intra-procedure $Given 03/29/2023 5:02 PM CDT 50 mcg iopamidol (ISOVUE-370) solution 82 mL 82 mL, Intravenous, ONCE, On 03/28/23 at 1400, For 1 dose $Given 03/28/2023 1:39 PM CDT 82 mLs lisinopril (ZESTRIL) tablet 20 mg 20 mg, Oral, DAILY, First dose on 03/27/23 at 2000 $Given 03/30/2023 8:10 AM CDT 20 mg $Given 03/29/2023 9:01 AM CDT 20 mg $Given 03/28/2023 8:34 AM CDT 20 mg melatonin tablet 3 mg 3 mg, Oral, AT BEDTIME PRN, sleep, Starting on Wed03/29/23 at 1012 midazolam (VERSED) injection 0.5-2 mg 0.5-2 mg, Intravenous, Administer over 1 Minutes, EVERY 4 MIN PRN, sedation, If inadequate response may repeat 0.5 mg IV slowly every 4 minutes PRN sedation until desired response; when verbally requested by provider., Starting on Wed03/29/23 at 1305, Doses can be exceeded under direct oversight of patient by physician. This drug may cause significant respiratory depression. Monitor respiratory status and vital signs carefully for 1 hour after each dose., IR Intra-procedure $Given 03/29/2023 5:02 PM CDT 1 mg naloxone (NARCAN) injection 0.2 mg 0.2 mg, Intravenous, EVERY 2 MIN PRN, opioid reversal, Starting on 03/27/23 at 2004, Administer intravenous route when available and notify [...] 2 MIN PRN, opioid reversal, Starting on 03/27/23 at 2004, Administer intramuscular if an intravenous route is [...] 2 MIN PRN, opioid reversal, Starting on 03/27/23 at 2004, Administer intravenous route when available and notify [...] 2 MIN PRN, opioid reversal, Starting on 03/27/23 at 2005, Administer intramuscular if an intravenous route is [...] not improved after 4 naloxone doses. nicotine (COMMIT) lozenge 2 mg 2 mg, Buccal, EVERY 1 HOUR PRN, nicotine withdrawal symptoms, Starting on 03/28/23 at 0128, Allow lozenge to dissolve completely. Do Not Bite, Chew, or Swallow. $Given 03/28/2023 8:41 AM CDT 2 mg $Given 03/28/2023 5:58 AM CDT 2 mg nicotine (NICODERM CQ) 21 MG/24HR 24 hr patch 1 patch 1 patch, Transdermal, DAILY, Administer over 24 Hours, First dose on 03/28/23 at 0900, Reminder: Remove previous patch before applying new patch. $Patch/Med Applied 03/30/2023 8:12 AM CDT 1 patch Left Arm $Patch/Med Applied 03/29/2023 9:02 AM CDT 1 patch Right Shoulder $Patch/Med Applied 03/28/2023 8:34 AM CDT 1 patch Left Arm nicotine Patch in Place First dose on 03/28/23 at 0900, Chart every shift, confirming that patch is still in place on patient (no barcode scan needed). See patch order for dose information. ondansetron (ZOFRAN ODT) ODT tab 4 mg 4 mg, Oral, EVERY 6 HOURS PRN, nausea, vomiting, Starting on 03/27/23 at 1949, This is Step 1 of nausea and [...] vomiting, Administer over 2-5 Minutes, Starting on 03/27/23 at 1949, Give IF patient unable to tolerate oral medication. This is Step 1 of nausea and vomiting management. If nausea not resolved in 15 minutes, go to Step 2 prochlorperazine (COMPAZINE). Irritant. piperacillin-tazobactam (ZOSYN) 3.375 g vial to attach to NS 100 mL bag STAT, 3.375 g, Intravenous, ONCE, On 03/27/23 at 1750, For 1 dose, Lactated Ringer's solution is not compatible with piperacillin-tazobactam for injection., Indications: Intra-Abdominal Infection $New Bag 03/27/2023 6:11 PM CDT 3.375 g piperacillin-tazobactam (ZOSYN) 3.375 g vial to attach to NS 100 mL bag Routine, 3.375 g, Intravenous, EVERY 6 HOURS, First dose on Wed03/28/23 at 0000, Lactated Ringer's solution is not compatible with piperacillin-tazobactam for injection., Indications: Intra-Abdominal Infection $New Bag 03/30/2023 12:09 PM CDT 3.375 g $New Bag 03/30/2023 6:24 AM CDT 3.375 g $New Bag 03/30/2023 12:38 AM CDT 3.375 g polyethylene glycol (MIRALAX) Packet 17 g 17 g, Oral, DAILY, First dose on 03/28/23 at 0900, 1 Packet = 17 grams. Mix each gram with at least 1/2 ounce (15 mL) of water - 8 ounces for 17 g dose, 4 ounces for 8.5 g dose, 2 ounces for 4 g dose. Follow with the same volume of water. Hold for loose stools unless being administered as part of a bowel prep regimen or bowel clean out. $Given 03/30/2023 8:11 AM CDT 17 g $Given 03/29/2023 9:00 AM CDT 17 g $Given 03/28/2023 8:34 AM CDT 17 g polyethylene glycol (MIRALAX) Packet 17 g 17 g, Oral, 2 TIMES DAILY PRN, constipation, Starting on Wed03/28/23 at 0122, IF more than 1 constipation PRN medication is ordered, administer step-keith as indicated, moving to the next step ONLY if prior step ineffective. Step 1: senna-docusate (SENOKOT-S; PERICOLACE) OR bisacodyl (DULCOLAX) EC tablet Step 2: magnesium hydroxide (MILK OF MAGNESIA) OR polyethylene glycol (MIRALAX/GLYCOLAX) Step 3: bisacodyl (DULCOLAX) suppository Step 4: sodium phosphate (FLEET ENEMA) 1 Packet = 17 grams. Mix each gram with at least 1/2 ounce (15 mL) of water - 8 ounces for 17 g dose, 4 ounces for 8.5 g dose, 2 ounces for 4 g dose. Follow with the same volume of water. Hold for loose stools unless being administered as part of a bowel prep regimen or bowel clean out. Saline As instructed, 63 mL, ONCE, On 03/28/23 at 1400, For 1 dose, This entry is for use by Radiology to intermittently used as a flush in patients receiving a CT scan. $Given 03/28/2023 1:39 PM CDT 63 mL s senna-docusate (SENOKOT-S/PERICOLACE) 8.6-50 MG per tablet 1 tablet 1 tablet, Oral, 2 TIMES DAILY PRN, constipation, Starting on 03/27/23 at 1949, If no bowel movement in 24 hours, increase to 2 tablets by mouth. IF more than 1 constipation PRN medication is ordered, administer step-keith as indicated, moving to the next step ONLY if prior step ineffective. Step 1: senna-docusate (SENOKOT-S; PERICOLACE) OR bisacodyl (DULCOLAX) EC tablet Step 2: magnesium hydroxide (MILK OF MAGNESIA) OR polyethylene glycol (MIRALAX/GLYCOLAX) Step 3: bisacodyl (DULCOLAX) suppository Step 4: sodium phosphate (FLEET ENEMA) Hold for loose stools. senna-docusate (SENOKOT-S/PERICOLACE) 8.6-50 MG per tablet 2 tablet 2 tablet, Oral, 2 TIMES DAILY PRN, constipation, Starting on 03/27/23 at 1949, IF more than 1 constipation PRN medication is ordered, administer step-keith as indicated, moving to the next step ONLY if prior step ineffective. Step 1: senna-docusate (SENOKOT-S; PERICOLACE) OR bisacodyl (DULCOLAX) EC tablet Step 2: magnesium hydroxide (MILK OF MAGNESIA) OR polyethylene glycol (MIRALAX/GLYCOLAX) Step 3: bisacodyl (DULCOLAX) suppository Step 4: sodium phosphate (FLEET ENEMA) Hold for loose stools. simvastatin (ZOCOR) tablet 20 mg 20 mg, Oral, AT BEDTIME, First dose on 03/27/23 at 2200 $Given 03/29/2023 10:07 PM CDT 20 mg $Given 03/28/2023 10:06 PM CDT 20 mg $Given 03/27/2023 8:37 PM CDT 20 mg sodium chloride (PF) 0.9% PF flush 3 mL 3 mL, Intracatheter, EVERY 8 HOURS, First dose on 03/27/23 at 2000, to lock peripheral IV dormant line $Given 03/30/2023 12:10 PM CDT 3 mLs $Given 03/30/2023 6:25 AM CDT 3 mLs $Given 03/29/2023 10:08 PM CDT 3 mLs traZODone (DESYREL) half-tab 25 mg 25 mg, Oral, AT BEDTIME, First dose on Wed03/29/23 at 2200 $Given 03/29/2023 10:07 PM CDT 25 mg traZODone (DESYREL) tablet 50 mg 50 mg, Oral, AT BEDTIME, First dose on Wed03/29/23 at 2200 documented in this encounter Active and Recently Administered Medications Times are shown in CDT. Scheduled Medication Order 03/28/2023 03/29/2023 03/30/2023 iopamidol (ISOVUE-370) solution 82 mL (COMPLETED) 82 mL, Intravenous, ONCE, On 03/28/23 at 1400, For 1 dose 1339 ($Given - Provider: Darin Darden) lidocaine 1 % 30 mL 30 mL, Injection, ONCE, On Wed03/29/23 at 1700, For 1 dose 1806 (Canceled Entry - Provider: Junior Steen RN) lisinopril (ZESTRIL) tablet 20 mg 20 mg, Oral, DAILY, First dose on 03/27/23 at 2000 0834 ($Given - Provider: Mitra Parekh RN) 0901 ($Given - Provider: Junior Steen RN) 0810 ($Given - Provider: Dori Rodríguez, MEDHAT) nicotine (NICODERM CQ) 21 MG/24HR 24 hr patch 1 patch 1 patch, Transdermal, DAILY, Administer over 24 Hours, First dose on 03/28/23 at 0900, Reminder: Remove previous patch before applying new patch. 0834 ($Patch/Med Applied - Provider: Mitra Parekh RN) 0901 (Patch/Med Removed - Provider: Junior Steen RN)0902 ($Patch/Med Applied - Provider: Junior Steen RN) 0811 (Patch/Med Removed - Provider: Dori Rodríguez RN)0812 ($Patch/Med Applied - Provider: Dori Rodríguez RN)1445 (Due: Patch/Med Removed - Provider: Orders Generic Provider - Comment: Time automatically adjusted from order being discontinued) nicotine Patch in Place First dose on 03/28/23 at 0900, Chart every shift, confirming that patch is still in place on patient (no barcode scan needed). See patch order for dose information. 0837 (Patch in Place - Provider: Mitra Parekh RN)1708 (Patch in Place - Provider: Claudette Blevins RN) 0039 (Patch in Place - Provider: Bozena Benitez RN)0903 (Patch in Place - Provider: Junior Steen, MEDHAT)1714 (Patch in Place - Provider: Junior Steen RN) 0039 (Patch in Place - Provider: Aurea New, MEDHAT)0812 (Patch in Place - Provider: Droi Rodríguez, MEDHAT) piperacillin-tazobactam (ZOSYN) 3.375 g vial to attach to NS 100 mL bag Routine, 3.375 g, Intravenous, EVERY 6 HOURS, First dose on 03/28/23 at 0000, Lactated Ringer's solution is not compatible with piperacillin-tazobactam for injection., Indications: Intra-Abdominal Infection 0047 ($New Bag - Provider: Bozena Benitez RN)0559 ($New Bag - Provider: Boezna Benitez RN)1159 ($New Bag - Provider: Mitra Parekh RN)1816 ($New Bag - Provider: Claudette Blevins RN) 0028 ($New Bag - Provider: Bozena Benitez RN)0553 ($New Bag - Provider: Bozena Benitez, MEDHAT)1157 ($New Bag - Provider: Junior Steen, MEDHAT)1826 ($New Bag - Provider: Junior Steen RN) 0038 ($New Bag - Provider: Aurea New, MEDHAT)0624 ($New Bag - Provider: Aurea New, MEDHAT)1209 ($New Bag - Provider: Dori Rodríguez, MEDHAT) polyethylene glycol (MIRALAX) Packet 17 g 17 g, Oral, DAILY, First dose on 03/28/23 at 0900, 1 Packet = 17 grams. Mix each gram with at least 1/2 ounce (15 mL) of water - 8 ounces for 17 g dose, 4 ounces for 8.5 g dose, 2 ounces for 4 g dose. Follow with the same volume of water. Hold for loose stools unless being administered as part of a bowel prep regimen or bowel clean out. 0834 ($Given - Provider: Mitra Parekh RN) 0900 ($Given - Provider: Junior Steen RN) 0811 ($Given - Provider: Dori Rodríguez, MEDHAT) Saline (COMPLETED) As instructed, 63 mL, ONCE, On 03/28/23 at 1400, For 1 dose, This entry is for use by Radiology to intermittently used as a flush in patients receiving a CT scan. 1339 ($Given - Provider: Darin Darden) simvastatin (ZOCOR) tablet 20 mg 20 mg, Oral, AT BEDTIME, First dose on 03/27/23 at 2200 2206 ($Given - Provider: Leighann Cole RN) 2207 ($Given - Provider: Aurea New, MEDHAT) sodium chloride (PF) 0.9% PF flush 3 mL 3 mL, Intracatheter, EVERY 8 HOURS, First dose on 03/27/23 at 2000, to lock peripheral IV dormant line 0400 (Not Given - Provider: Bozena Benitez, MEDHAT - Reason: Patient sleeping)1159 ($Given - Provider: Mitra Parekh RN)1951 ($Given - Provider: Leighann Cole RN) 0435 (Not Given - Provider: Bozena Benitez, MEDHAT - Reason: Patient sleeping)1157 ($Given - Provider: Junior Steen RN)2208 ($Given - Provider: Aurea New, MEDHAT) 0625 ($Given - Provider: Aurea New, MEDHAT)1210 ($Given - Provider: Dori Rodríguez, MEDHAT) traZODone (DESYREL) half-tab 25 mg(Linked Group 1) 25 mg, Oral, AT BEDTIME, First dose on 03/29/23 at 2200 2207 ($Given - Provider: Aurea New, MEDHAT) traZODone (DESYREL) tablet 50 mg(Linked Group 1) 50 mg, Oral, AT BEDTIME, First dose on 03/29/23 at 2200 2207 (See Alternative - Provider: Aurea New, MEDHAT) PRN Medication Order 03/28/2023 03/29/2023 03/30/2023 acetaminophen (TYLENOL) Suppository 650 mg(Linked Group 2) 650 mg, Rectal, EVERY 6 HOURS PRN, mild pain, other, and adjunct with moderate or severe pain or per patient request, Starting on 03/27/23 at 1949, Alternate with ibuprofen if ordered. Maximum acetaminophen dose from all sources = 75 mg/kg/day not to exceed 4 grams/day. 0553 (See Alternative - Provider: Bozena Benitez RN) 1203 (See Alternative - Provider: Junior Steen RN) 0045 (See Alternative - Provider: Aurea New, MEDHAT) acetaminophen (TYLENOL) tablet 650 mg(Linked Group 2) 650 mg, Oral, EVERY 6 HOURS PRN, mild pain, other, and adjunct with moderate or severe pain or per patient request, Starting on 03/27/23 at 1949, Alternate with ibuprofen if ordered. Maximum acetaminophen dose from all sources = 75 mg/kg/day not to exceed 4 grams/day. 0553 ($Given - Provider: Bozena Benitez RN) 1203 ($Given - Provider: Junior Steen RN) 0045 ($Given - Provider: Aurea New, MEDHAT) ALPRAZolam (XANAX) tablet 0.25 mg 0.25 mg, Oral, 2 TIMES DAILY PRN, anxiety, Starting on 03/27/23 at 1949, Avoid taking with grapefruit juice 0125 (Not Given - Provider: Bozena Benitez RN - Reason: Patient/family refused)0245 ($Given - Provider: Bozena Benitez RN) bisacodyl (DULCOLAX) suppository 10 mg 10 mg, Rectal, DAILY PRN, constipation, Starting on 03/27/23 at 1949, IF more than 1 constipation PRN medication is ordered, administer step-keith as indicated, moving to the next step ONLY if prior step ineffective. Step 1: senna-docusate (SENOKOT-S; PERICOLACE) OR bisacodyl (DULCOLAX) EC tablet Step 2: magnesium hydroxide (MILK OF MAGNESIA) OR polyethylene glycol (MIRALAX/GLYCOLAX) Step 3: bisacodyl (DULCOLAX) suppository Step 4: sodium phosphate (FLEET ENEMA) Hold for loose stools. fentaNYL (PF) (SUBLIMAZE) injection 25-50 mcg (CANCELED) 25-50 mcg, Intravenous, EVERY 5 MIN PRN, severe pain, If inadequate response may repeat 25 mcg IV slowly every 5 min PRN severe pain; when verbally requested by provider., Administer over 2 Minutes, Starting on Wed03/29/23 at 1305, Doses can be exceeded under direct oversight of patient by physician., IR Intra-procedure 1533 (Canceled Entry - Provider: David Castillo RN - Comment: meds returned, procedure delayed)1702 ($Given - Provider: Dvaid Castillo RN) lidocaine (LMX4) cream Topical, EVERY 1 HOUR PRN, pain, with VAD insertion, Starting on 03/27/23 at 1949, Apply at least 30 minutes prior to [...] mild pain with VAD insertion, Starting on 03/27/23 at 1949, MAX dose 1 mL subcutaneous OR intradermal along the side of the vein in divided doses as needed for VAD insertion. Do NOT give if patient has a history of allergy to any local anesthetic or any luis alfredo product. Do NOT use both lidocaine intradermal/subcutaneous injection and the lidocaine cream on the same site. melatonin tablet 3 mg 3 mg, Oral, AT BEDTIME PRN, sleep, Starting on 03/29/23 at 1012 midazolam (VERSED) injection 0.5-2 mg (CANCELED) 0.5-2 mg, Intravenous, Administer over 1 Minutes, EVERY 4 MIN PRN, sedation, If inadequate response may repeat 0.5 mg IV slowly every 4 minutes PRN sedation until desired response; when verbally requested by provider., Starting on 03/29/23 at 1305, Doses can be exceeded under direct oversight of patient by physician. This drug may cause significant respiratory depression. Monitor respiratory status and vital signs carefully for 1 hour after each dose., IR Intra-procedure 1534 (Canceled Entry - Provider: David Castillo RN - Comment: meds returned, Procedure delayed)1702 ($Given - Provider: David Castillo RN) naloxone (NARCAN) injection 0.2 mg(Linked Group 3) 0.2 mg, Intravenous, EVERY 2 MIN PRN, opioid reversal, Starting on 03/27/23 at 2004, Administer intravenous route when available and notify [...] 2 MIN PRN, opioid reversal, Starting on 03/27/23 at 2004, Administer intramuscular if an intravenous route is [...] 2 MIN PRN, opioid reversal, Starting on 03/27/23 at 2004, Administer intravenous route when available and notify [...] 2 MIN PRN, opioid reversal, Starting on 03/27/23 at 2004, Administer intramuscular if an intravenous route is [...] not improved after 4 naloxone doses. nicotine (COMMIT) lozenge 2 mg 2 mg, Buccal, EVERY 1 HOUR PRN, smoking cessation, Starting on 03/28/23 at 0128, Allow lozenge to dissolve completely. Do Not Bite, Chew, or Swallow. 0558 ($Given - Provider: Bozena Benitez, MEDHAT)0841 ($Given - Provider: Mitra Parekh RN) nitroGLYcerin (NITROSTAT) sublingual tablet 0.4 mg 0.4 mg, Sublingual, EVERY 5 MIN PRN, chest pain, Starting on 03/27/23 at 2037 ondansetron (ZOFRAN ODT) ODT tab 4 mg(Linked Group 4) 4 mg, Oral, EVERY 6 HOURS PRN, nausea, vomiting, Starting on 03/27/23 at 1949, This is Step 1 of nausea and [...] vomiting, Administer over 2-5 Minutes, Starting on 03/27/23 at 1949, Give IF patient unable to tolerate oral medication. This is Step 1 of nausea and vomiting management. If nausea not resolved in 15 minutes, go to Step 2 prochlorperazine (COMPAZINE). Irritant. oxyCODONE (ROXICODONE) tablet 5 mg 5 mg, Oral, EVERY 6 HOURS PRN, severe pain, Starting on 03/27/23 at 1949 polyethylene glycol (MIRALAX) Packet 17 g 17 g, Oral, 2 TIMES DAILY PRN, constipation, Starting on 03/28/23 at 0122, IF more than 1 constipation PRN medication is ordered, administer step-keith as indicated, moving to the next step ONLY if prior step ineffective. Step 1: senna-docusate (SENOKOT-S; PERICOLACE) OR bisacodyl (DULCOLAX) EC tablet Step 2: magnesium hydroxide (MILK OF MAGNESIA) OR polyethylene glycol (MIRALAX/GLYCOLAX) Step 3: bisacodyl (DULCOLAX) suppository Step 4: sodium phosphate (FLEET ENEMA) 1 Packet = 17 grams. Mix each gram with at least 1/2 ounce (15 mL) of water - 8 ounces for 17 g dose, 4 ounces for 8.5 g dose, 2 ounces for 4 g dose. Follow with the same volume of water. Hold for loose stools unless being administered as part of a bowel prep regimen or bowel clean out. senna-docusate (SENOKOT-S/PERICOLACE) 8.6-50 MG per tablet 1 tablet(Linked Group 5) 1 tablet, Oral, 2 TIMES DAILY PRN, constipation, Starting on 03/27/23 at 1949, If no bowel movement in 24 hours, increase to 2 tablets by mouth. IF more than 1 constipation PRN medication is ordered, administer step-keith as indicated, moving to the next step ONLY if prior step ineffective. Step 1: senna-docusate (SENOKOT-S; PERICOLACE) OR bisacodyl (DULCOLAX) EC tablet Step 2: magnesium hydroxide (MILK OF MAGNESIA) OR polyethylene glycol (MIRALAX/GLYCOLAX) Step 3: bisacodyl (DULCOLAX) suppository Step 4: sodium phosphate (FLEET ENEMA) Hold for loose stools. senna-docusate (SENOKOT-S/PERICOLACE) 8.6-50 MG per tablet 2 tablet(Linked Group 5) 2 tablet, Oral, 2 TIMES DAILY PRN, constipation, Starting on 03/27/23 at 1949, IF more than 1 constipation PRN medication is ordered, administer step-keith as indicated, moving to the next step ONLY if prior step ineffective. Step 1: senna-docusate (SENOKOT-S; PERICOLACE) OR bisacodyl (DULCOLAX) EC tablet Step 2: magnesium hydroxide (MILK OF MAGNESIA) OR polyethylene glycol (MIRALAX/GLYCOLAX) Step 3: bisacodyl (DULCOLAX) suppository Step 4: sodium phosphate (FLEET ENEMA) Hold for loose stools. sodium chloride (PF) 0.9% PF flush 3 mL 3 mL, Intracatheter, EVERY 1 MIN PRN, line flush, other, to ensure patency or to lock dormant line, Starting on 03/27/23 at 1949 Linked Groups Order Group 1: traZODone (DESYREL) half-tab 25 mgJump to med 25 mg, Oral, AT BEDTIME, First dose on Wed03/29/23 at 2200 Or traZODone (DESYREL) tablet 50 mgJump to med 50 mg, Oral, AT BEDTIME, First dose on Wed03/29/23 at 2200 Group 2: acetaminophen (TYLENOL) tablet 650 mgJump to med 650 mg, Oral, EVERY 6 HOURS PRN, mild pain, other, and adjunct with moderate or severe pain or per patient request, Starting on 03/27/23 at 194, Alternate with ibuprofen if ordered. Maximum acetaminophen dose from all sources = 75 mg/kg/day not to exceed 4 grams/day. Or acetaminophen (TYLENOL) Suppository 650 mgJump to med 650 mg, Rectal, EVERY 6 HOURS PRN, mild pain, other, and adjunct with moderate or severe pain or per patient request, Starting on 03/27/23 at 194, Alternate with ibuprofen if ordered. Maximum acetaminophen dose from all sources = 75 mg/kg/day not to exceed 4 grams/day. Group 3: naloxone (NARCAN) injection 0.2 mgJump to med 0.2 mg, Intravenous, EVERY 2 MIN PRN, opioid reversal, Starting on 03/27/23 at 2005, Administer intravenous route when available and notify [...] 2 MIN PRN, opioid reversal, Starting on 03/27/23 at 2004, Administer intravenous route when available and notify [...] 2 MIN PRN, opioid reversal, Starting on 03/27/23 at 2004, Administer intramuscular if an intravenous route is [...] 2 MIN PRN, opioid reversal, Starting on 03/27/23 at 2005, Administer intramuscular if an intravenous route is [...] 6 HOURS PRN, nausea, vomiting, Starting on 03/27/23 at 1949, This is Step 1 of nausea and [...] vomiting, Administer over 2-5 Minutes, Starting on 03/27/23 at 1949, Give IF patient unable to tolerate oral medication. This is Step 1 of nausea and vomiting management. If nausea not resolved in 15 minutes, go to Step 2 prochlorperazine (COMPAZINE). Irritant. Group 5: senna-docusate (SENOKOT-S/PERICOLACE) 8.6-50 MG per tablet 1 tabletJump to med 1 tablet, Oral, 2 TIMES DAILY PRN, constipation, Starting on 03/27/23 at 1949, If no bowel movement in 24 hours, increase to 2 tablets by mouth. IF more than 1 constipation PRN medication is ordered, administer step-keith as indicated, moving to the next step ONLY if prior step ineffective. Step 1: senna-docusate (SENOKOT-S; PERICOLACE) OR bisacodyl (DULCOLAX) EC tablet Step 2: magnesium hydroxide (MILK OF MAGNESIA) OR polyethylene glycol (MIRALAX/GLYCOLAX) Step 3: bisacodyl (DULCOLAX) suppository Step 4: sodium phosphate (FLEET ENEMA) Hold for loose stools. Or senna-docusate (SENOKOT-S/PERICOLACE) 8.6-50 MG per tablet 2 tabletJump to med 2 tablet, Oral, 2 TIMES DAILY PRN, constipation, Starting on 03/27/23 at 1949, IF more than 1 constipation PRN medication is ordered, administer step-keith as indicated, moving to the next step ONLY if prior step ineffective. Step 1: senna-docusate (SENOKOT-S; PERICOLACE) OR bisacodyl (DULCOLAX) EC tablet Step 2: magnesium hydroxide (MILK OF MAGNESIA) OR polyethylene glycol (MIRALAX/GLYCOLAX) Step 3: bisacodyl (DULCOLAX) suppository Step 4: sodium phosphate (FLEET ENEMA) Hold for loose stools. documented in this encounter Care Teams Office Machine Service Supervisor Relationship Specialty Start Date End Date No Ref-Primary, Physician PCP - General 03/25/23 documented as of this encounter
--- OUTSIDE RECORDS SUMMARY | 2023-08-31 14:37 | XMS_ITS | Encounter Summary ---
Author Name Unknown Organization [employer] Address [address] [place] [address]. [place] [address] Care Team Providers Care Wire Fence Builder Name Role Phone No Ref-Primary, Physician Primary Care Provider Reason for Visit * Auth/Cert (Routine) Specialty Diagnoses / Procedures Referred By Conthowie t Referred To Contact Med Surg Diagnoses Clostridioides difficile infection Sepsis, colonic abscess, aspiration pneumonia Clostridioides difficile infection [facility] [address] [id number] Referral ID Status Reason Start Date Expiration Date Visits Re quested Visits Authorized [id number] 1 1 Encounter Details Date Type Department Care Team (Latest Contact Info) Description 07/15/2023 11:33 PM [employer] - 07/19/2023 1:53 PM [employer] Hospital Encounter [facility] [address] [id number] Jun Dobbs DO [address] [id number] Gene Nielsen MD [address] [id number] Clostridioides difficile infection (Primary Dx) Discharge Disposition: Home or Self Care Social [...] Sign Reading Time Taken Comments Blood Pressure 173/89 07/19/2023 12:00 PM [employer] Pulse 73 07/19/2023 12:00 PM [employer] Temperature 36.4 ??C (97.6 ??F) 07/19/2023 12:[address] Respiratory Rate 16 07/18/2023 3:34 PM [employer] Oxygen Saturation 93% 07/19/2023 12:00 PM [employer] Inhaled Oxygen Concentration - - Weight 77 kg (169 lb 11.2 oz) 07/19/2023 5:51 AM [employer] Height - - Body Mass Index 26.58 03/27/2023 2:54 PM CDT documented in this encounter Discharge Summaries * Wiliam Henley MD - 07/19/2023 12:28 PM CST [facility] Hospitalist Discharge Summary Date of Admission: 07/15/2023 Date of Discharge: 07/19/2023 Discharging Provider: Wiliam Henley MD Discharge Service: Hospitalist Service Discharge Diagnoses Acute C.diff pancolitis Possible developing ileus, ruled out Diverticular abscess, improved Hypokalemia Lumbar stenosis Coronary artery disease, s/p stent to the circumflex in 2003 Hypertension Hyperlipidemia Anemia Generalized anxiety COPD Tobacco use disorder Glaucoma Clinically Significant Risk Factors Follow-ups Needed After Discharge Follow-up Appointments Follow-up and recommended labs and tests Follow up with primary care provider within 7 days for hospital follow up. The following labs/tests are recommended: CBC and BMP. Follow up with colorectal surgery this week, their office should contact you to arrange an appointment. If you do not hear from them in the next few days you can contact them at: [facility], [address] [place] [address], phone #: [phone]. Discharge Disposition Discharged to home Condition at discharge: Stable Hospital Course Matthew Wu is a 78 year old male with history of hypertension, CAD s/p CABG, current smoker c/bCOPD who initially presented with intra-abdominal abscess incidentally found on a lumbar MRI at theend of February 2023. The abscess is not amenable to drainage and he has been followed by colorectal surgery and has had a few admissions and is being treated with oral antibiotics with future surgical treatment by colorectal surgery. He has been on multiple courses of inpatient and outpatient antibiotics. He acute became ill yesterday with increased weakness and fell a couple of times. He was taken to [facility], where he had a normal CXR but elevated wbc. CT showed improved diverticular abscess sizes. He further decompensated with sever diarrhea associated with nausea and vomiting and repeat CXR showed possible aspiration. CT of abdomen/pelvis shows diffuse hastings colitis and c.diff toxin came back +. He was treated with initial dose of zosyn and vancomycin and transferred to [facility]. Acute C.diff pancolitis Possible developing ileus, ruled out Patient presented with soft blood pressures, but abdomen was soft, borderline tachycardic but mentation at baseline, accompanied by his . Admitted to inpatient under IMC status. Treated with oral vancomycin and IV flagyl in the hospital. IV fluids. As needed pain and nausea medications available. Colorectal surgery consulted, appreciate their assistance. Infectious disease consulted, appreciate their assistance. Symptoms slowly improved. Bowel movements much less frequent and more formed now. Tolerating regular diet. Feels ready for discharge home. Discharge home today. Follow up with PCP as noted below. Discussed reasons to seek medical attention prior to follow up appointment. Some difficulty finding oral vancomycin for discharge today. His insurance requires prior authorization for the capsules and our discharge pharmacy does not have the oral solution in stock today. Tried calling local pharmacies, however they were either closed or also did not have the vancomycin solution in stock. Will discharge home on vancomycin 125 mg capsules four times daily for four doses (he will obtain from the discharge pharmacy here today) and then can fill prescription for the vancomycin oral solution tomorrow at his local pharmacy to complete the remainder of the 14 day total course of oral vancomycin. See discharge orders below. Diverticular abscess, improved Diagnosed in March 2023. Unable to be drained percutaneously. Has been on antibiotics with someimprovement, but he does have a persistent abscess. Has been followed by colorectal surgery as an outpatient, planning sigmoid colectomy on 08/13/23. CT abdomen/pelvis on 07/15/23 at outside facility showed decrease in size of abscess. Colorectal surgery consulted, appreciate their assistance. Infectious disease consulted, appreciate their assistance. Holding off on any further antibiotics for diverticular abscess at this time given the improvement on imaging and the severity of his episode of c.diff. He would be at high risk of recurrent c.diff if restarted on antibiotics for the abscess right now. Plan for follow up with colorectal surgery this week and potential surgery in about three weeks. Discussed reasons to seek medical attention priorto follow up appointments as noted below. Hypokalemia Replaced prior to discharge. Recheck at follow up with PCP. Lumbar stenosis Tylenol as needed ordered. Follow-up with neurosurgery as outpatient for potential surgery once he recovers from his acute illness. Coronary artery disease, s/p stent to the circumflex in 2003 Hypertension Hyperlipidemia Echo 2010 mild sclerotic aortic and mitral valve without Doppler abnormalities. Normal LV size and function with EF of 65%. Continue X RAY DEVELOPER simvastatin. X RAY DEVELOPER lisinopril restarted on 07/17/23. Blood pressure elevated, discussed with patient on day of discharge. Rather than adjusting medications right now, he will monitor this after home and follow up with his primary care provider within aweek. Has not been taking aspirin for the past two months, will not resume right now. Anemia Hemoglobin has been stable around 10 since 03/25. No sign of bleeding. Hgb of 11.7 in the ER, then 11.1 on 07/19/23. Generalized anxiety Continue X RAY DEVELOPER PRN Xanax. COPD Not on bronchodilators or inhaled steroids prior to admission. PRN DuoNebs were available in the hospital but were not needed. Tobacco use disorder Smokes 1 pack/day. Nicotine patch 21 mg ordered with Nicorette lozenges as needed. Encouraged to continue to use nicotine patches after discharge and abstain from tobacco use. Glaucoma Continue X RAY DEVELOPER latanoprost drops every evening. Consultations This Hospital Stay COLORECTAL SURGERY IP CONSULT INFECTIOUS DISEASES IP CONSULT VASCULAR ACCESS ADULT IP CONSULT Code Status Full Code Time Spent on this Encounter I, Wiliam Henley MD, personally saw the patient today and spent greater than 30 minutes discharging this patient. Wiliam Henley MD [place] [address] [place] [address] Physical Exam Vital Signs: Temp: 97.6 ??F (36.4 ??C) Temp src: Oral BP: (!) 173/89 Pulse: 73 Resp: 16 SpO2: 93 % O2 Device: None (Room air) Weight: 169 lbs 11.2 oz Constitutional: awake, alert, cooperative, no apparent distress, sitting up in a chair Respiratory: no increased work of breathing, clear to auscultation bilaterally, no crackles or wheezing Cardiovascular: regular rate and rhythm, normal S1 and S2, no murmur noted GI: normal bowel sounds, soft, non-distended, non-tender Skin: warm, dry Musculoskeletal: no lower extremity pitting edema present Neurologic: awake, alert, oriented, answers questions appropriately, moves all extremities Primary Care Physician Physician No Ref-Primary Discharge Orders Reason for your hospital stay C.diff colitis Follow-up and recommended labs and tests Follow up with primary care provider within 7 days for hospital follow up. The following labs/testsare recommended: CBC and BMP. Follow up with colorectal surgery this week, their office should contact you to arrange an appointment. If you do not hear from them in the next few days you can contact them at: [facility], [address] [place] [address], phone #: [phone]. Activity Your activity upon discharge: activity as tolerated When to contact your care team Call your primary doctor if you have any of the following: fevers, chills, sweats, worsening abdominal pain, increased loose stools, or any other questions/concerns about your health. Diet Follow this diet upon discharge: Regular Diet Adult, recommend fiber and nutritional supplements w/protein Significant Results and Procedures Most Recent 3 CBC's: Recent Labs Lab Test 07/19/23 0613 07/18/23 1430 07/17/23 0557 WBC 7.4 10.8 15.8* HGB 11.1* 12.3* 11.8* MCV 91 91 92 PLT 256 276 254 Most Recent 3 BMP's: Recent Labs Lab Test 07/19/23 0613 07/18/23 1430 07/18/23 0552 07/17/23 1858 07/17/23 0557 NA 140 140 -- -- 137 POTASSIUM 3.3* 3.8 3.1* < > 3.0* CHLORIDE 108* 107 -- -- 103 CO2 23 22 -- -- 25 BUN 7.5* 11.5 -- -- 18.5 CR 0.69 0.65* -- -- 0.72 ANIONGAP 9 11 -- -- 9 ALEIDA 8.5* 8.7* -- -- 8.7* GLC 89 157* -- -- 97 < > = values in this interval not displayed. Results for orders placed or performed during the hospital encounter of 03/27/23 CT Abdomen Pelvis w Contrast Narrative EXAM: CT ABDOMEN PELVIS W CONTRAST LOCATION: [facility] DATE: 03/28/2023 INDICATION: Diverticulitis. Pelvic abscess. COMPARISON: [...] LANDRY MD Echocardiogram Complete Value LVEF 55-60% [facility] [id number]^DEBORAH^ELDON^Maru [facility] Echocardiography Laboratory [address] [place] [address] Name: MATTHEW WU : 1945 Study Date: 03/29/2023 08:24 AM Age: 78 yrs Gender: Male Patient Location: [facility] Reason For Study: Edema Ordering Physician: ELDON CABRERA Referring Physician: ELDON CABRERA Performed By: Khadijah Holland BSA: 1.9 m2 [...] Medication List START taking these medications Details vancomycin (FIRVANQ) 50 MG/ML oral solution Take 2.5 mLs (125 mg) by mouth 4 times daily for 10 days Starting on 07/20/23. Qty: 100 mL, Refills: 0 Associated Diagnoses: Clostridioides difficile infection vancomycin (VANCOCIN) 125 MG capsule Take 1 capsule (125 mg) by mouth 4 times daily Qty: 4 capsule, Refills: 0 Associated Diagnoses: Clostridioides difficile infection [...] 500 mg by mouth every other day ergocalciferol (VITAMIN D2) 400 units (10 mcg) TABS tablet Take 400 Units by mouth daily latanoprost (XALATAN) 0.005 % ophthalmic solution Place 1 drop into both eyes every evening lisinopril (ZESTRIL) 20 MG tablet Take 20 mg by mouth daily multivitamin w/minerals (MULTI-VITAMIN) tablet Take 1 tablet by mouth daily nicotine (NICODERM CQ) 21 MG/24HR [address] 1 patch onto the skin daily as needed for smoking cessation simvastatin (ZOCOR) 20 MG tablet Take 20 mg by mouth At Bedtime aspirin (ASA) 325 MG EC tablet Take 325 mg by mouth daily Allergies No Known Allergies [employer] documented in this encounter Medications at Time [...] Take 325 mg by mouth daily 0 latanoprost (XALATAN) 0.005 [...] 20 mg by mouth At Bedtime 0 vancomycin (FIRVANQ) 50 MG/ML oral solutionIndications: Clostridioides difficile infection Take 2.5 mLs (125 mg) by mouth 4 times daily for 10 days Starting on 07/20/23. 100 mL 0 07/20/2023 07/30/2023 ergocalciferol (VITAMIN D2) 400 units (10 mcg) TABS tablet Take 400 Units by mouth daily 0 08/19/2023 vancomycin (VANCOCIN) 125 MG capsuleIndications:C lostridioides difficile Take 1 capsule (125 mg) by mouth 4 times daily 4 capsule 0 07/19/2023 08/19/2023 documented as of this encounter Progress Notes * Susu Alaniz RN - 07/19/2023 1:50 PM CST Discharged to home, ride provided by brother. Discharge instructions reviewed, partial prescriptionsent with patient, additional prescription to be picked up at local pharmacy tomorrow. Pt demonstrates understanding of all discharge paperwork including follow up appointment with PCP and Colorectalteam. [employer] * Vidya Roldan MD - 07/19/2023 9:52 AM CST Images from the original note were not included. COLON & RECTAL SURGERY PROGRESS NOTE S: in good spirits, tolerating a regular diet and stools more formed. No pain Vitals: Vitals: 07/18/23 2100 07/19/23 0315 07/19/23 0551 07/19/23 0750 BP: (!) 166/94 (!) 154/77 (!) 164/85 BP Location: Right arm Right arm Left arm Patient Position: Semi-Taylor's Supine Cuff Size: Adult Regular Adult Regular Pulse: 76 74 76 Resp: Temp: 97.8 ??F (36.6 ??C) 98.1 ??F (36.7 ??C) 98 ??F (36.7 ??C) TempSrc: Oral Oral Oral SpO2: 96% 95% 94% Weight: 77 kg (169 lb 11.2 oz) I/O: I/O last 3 completed shifts: In: 3530 [P.O.:480; I.V.:3050] Out: 1675 [Urine:1675] PE: General Appearance: no acute distress, alert and oriented Abdomen: soft, not tender, minimally distended Ext: warm and well-perfused Labs: Recent Labs Lab 07/19/23 0613 07/18/23 1430 07/18/23 0552 07/18/23 0057 07/17/23 1858 07/17/23 0557 07/16/23 0542 WBC 7.4 10.8 -- -- -- 15.8* 21.3* HGB 11.1* 12.3* -- -- -- 11.8* 11.7* PLT 256 276 -- -- -- 254 271 NA 140 140 -- -- -- 137 137 POTASSIUM 3.3* 3.8 3.1* 3.1* < > 3.0* 3.5 CHLORIDE 108* 107 -- -- -- 103 105 CO2 23 22 -- -- -- 25 21* BUN 7.5* 11.5 -- -- -- 18.5 19.6 CR 0.69 0.65* -- -- -- 0.72 0.81 GLC 89 157* -- -- -- 97 109* MAG 1.7 -- -- -- -- 1.8 -- AST -- -- -- -- -- -- 25 ALT -- -- -- -- -- -- 12 < > = values in this interval not displayed. A/P: 78 year old man with diverticular abscess c/b C.diff infection. Clinically he is improving andon regular diet. Recommend fiber and nutritional supplements w/protein at discharge. OK for discharge from colorectal perspective with ID input. Will have our office follow-up with him this week. Plan for surgery in ~3 weeks. For questions/paging, please contact the CRS office at [phone]. Vidya Roldan MD Colorectal Surgery Fellow [facility] [address] [place] [address] T: [phone] F: [phone] [email or web address] [employer] * Nakia Lamb RN - 07/18/2023 3:12 PM CST [id number] Orientations: A&O x4- forgetful Vitals/Pain: VSS on room air. HTN. Denies pain. Tele: n/a Lines/Drains: L PIV infusing LR at 100, intermittent flagyl Skin/Wounds: redness to bottom GI/: loose stools x3. Continent bowel and bladder. Tolerating regular diet. Labs: Abnormal/Trends, Electrolyte Replacement- K replaced po per protocol Ambulation/Assist: SBA, independent to and from bedside commode. Plan: continue antibiotics. Continue plan of care. [employer] * Sybil Steinberg MD - 07/18/2023 11:30 AM CST ID brief note Chart reviewed WBC better yesterday, pending today Still a lot of stooling Continue on both IV flagyl and oral vanco for now. Sybil Steinberg MD Infectious Disease [employer] * Wiliam Henley MD - 07/18/2023 9:55 AM CST [facility] Medicine Progress Note - Hospitalist Service Date of Admission: 07/15/2023 Assessment & Plan Matthew Wu is a 78 year old male with history of hypertension, CAD s/p CABG, current smoker c/bCOPD who initially presented with intra-abdominal abscess incidentally found on a lumbar MRI at theend of February 2023. The abscess is not amenable to drainage and he has been followed by colorectal surgery and has had a few admissions and is being treated with oral antibiotics with future surgical treatment by colorectal surgery. He has been on multiple courses of inpatient and outpatient antibiotics. He acute became ill yesterday with increased weakness and fell a couple of times. He was taken to [facility], where he had a normal CXR but elevated wbc. CT showed improved diverticular abscess sizes. He further decompensated with sever diarrhea associated with nausea and vomiting and repeat CXR showed possible aspiration. CT of abdomen/pelvis shows diffuse hastings colitis and c.diff toxin came back +. He was treated with initial dose of zosyn and vancomycin and transferred to [facility]. Acute C.diff pancolitis Possible developing ileus Patient presented with soft blood pressures, but abdomen was soft, borderline tachycardic but mentation at baseline, accompanied by his . Admitted to inpatient under IMC status. IV fluids. Continue oral vancomycin and IV flagyl. As needed pain and nausea medications available. Symptoms improved overall, but still having fairly frequent loose stools. Tolerating regular diet, but appetite isn't very good. Colorectal surgery consulted, appreciate their assistance. Infectious disease consulted, appreciate their assistance. Patient hopeful to discharge home soon, frustrated with length of stay. Would like to see significant decrease in loose stools, improvement in oral intake, stability of electrolytes prior to discharge, this was discussed with the patient today - he is frustrated with being in the hospital but seemsto understand the recommendation. Diverticular abscess, improved Diagnosed in March 2023. Unable to be drained percutaneously. Has been on antibiotics with someimprovement, but he does have a persistent abscess. Has been followed by colorectal surgery as an outpatient, planning sigmoid colectomy on 08/13/23. CT abdomen/pelvis on 07/15/23 at outside facility showed decrease in size of abscess. Colorectal surgery consulted, appreciate their assistance. Infectious disease consulted, appreciate their assistance. Hypokalemia Replace and recheck per RN managed protocol. Lumbar stenosis Would like to avoid narcotics as much as possible in setting of c.diff hastinsg colitis. Tylenol as needed ordered. Follow-up with neurosurgery as outpatient for potential surgery once he recovers from his acute illness. Coronary artery disease, s/p stent to the circumflex in 2003 Hypertension Hyperlipidemia Echo 2010 mild sclerotic aortic and mitral valve without Doppler abnormalities. Normal LV size and function with EF of 65%. Continue X RAY DEVELOPER simvastatin. X RAY DEVELOPER lisinopril restarted on 07/17/23. Blood pressure elevated, continue to monitor and consider adjusting antihypertensive medications ifpersistently elevated. Has not been taking aspirin for the past two months, will not resume right now. Anemia Hemoglobin has been stable around 10 since 03/25. No sign of bleeding. Hgb of 11.7 in the ER. Stable at 12.3 on 07/18/23. Generalized anxiety Continue X RAY DEVELOPER Xanax. COPD Not on bronchodilators or inhaled steroids prior to admission. PRN DuoNebs available. Tobacco use disorder Smokes 1 pack/day. Nicotine patch 21 mg ordered with Nicorette lozenges as needed. Encouraged to continue to abstain from tobacco use. Glaucoma Continue X RAY DEVELOPER latanoprost drops every evening. Diet: Regular Diet Adult Room Service DVT Prophylaxis: Pneumatic Compression Devices Gomez Catheter: Not present Lines: None Cardiac Monitoring: None Code Status: Full Code Clinically Significant Risk Factors # Hypokalemia: Lowest K = 3 mmol/L in last 2 days, will replace as needed # Hypoalbuminemia: Lowest albumin = 3 g/dL at 07/16/2023 5:42 AM, will monitor as appropriate Disposition Plan Expected Discharge Date: 07/20/2023, 3:00 PM Discharge Comments: 07/15 Direct admit from [place]. septic. C Wiliam Henley MD Hospitalist Service [facility] Securely message with [employer] (more info) Text page via [facility] Paging/Directory Interval History Matthew Wu was seen this morning. He feels better. Continues to have loose stools, went about 11 times yesterday. Overall feels like the amount of loose stools is improving. Denies fevers, chest pain, shortness of breath, nausea, abdominal pain. Tolerating oral intake, but appetite isn't very good. Physical Exam Vital Signs: Temp: 98 ??F (36.7 ??C) Temp src: Oral BP: (!) 157/81 Pulse: 80 Resp: 16 SpO2: 92 % [id number]: None (Room air) Weight: 166 lbs 3.2 oz Constitutional: awake, alert, cooperative, no apparent distress, sitting at the edge of the hospital bed Respiratory: no increased work of breathing, clear to auscultation bilaterally, no crackles or wheezing Cardiovascular: regular rate and rhythm, normal S1 and S2, no murmur noted GI: normal bowel sounds, soft, non-distended, non-tender Skin: warm, dry Musculoskeletal: no lower extremity pitting edema present Neurologic: awake, alert, oriented, answers questions appropriately, moves all extremities Medical Decision Making 40 MINUTES SPENT BY ME on the date of service doing chart review, history, exam, documentation & further activities per the note. Data I have personally reviewed the following data over the past 24 hrs: 10.8 \ 12.3 (L) / 276 N/A N/A N/A / N/A 3.1 (L) N/A N/A \ [employer] * Dori Sutherland MD - 07/18/2023 8:51 AM CST Images from the original note were not included. Colorectal Surgery Progress Note Subjective: No acute events overnight. Pain well controlled.Tolerating a regular diet. No nausea oremesis. Tolerating PO with regular diet but only 220 recorded in. Had 11 stools. Ambulating. He is frustrated with his stay, would like to smoke and threatened to leave AMA several times in a dejected way. He is tired. Vitals: Vitals: 07/17/23 1614 07/17/23 1924 07/18/23 0400 07/18/23 0836 BP: 139/70 (!) 151/83 (!) 154/84 (!) 157/81 BP Location: Right arm Right arm Right arm Right arm Patient Position: Supine Supine Cuff Size: Adult Regular Pulse: 81 91 74 80 Resp: 16 16 16 Temp: 98.3 ??F (36.8 ??C) 98.1 ??F (36.7 ??C) 98.2 ??F (36.8 ??C) 98 ??F (36.7 ??C) TempSrc: Oral Oral Oral Oral SpO2: 97% 94% 95% 92% Weight: I/O: I/O last 3 completed shifts: In: 1820 [P.O.:220; I.V.:1600] Out: - Physical Exam: Gen: NAD Cardio: RRR Chest: NLB on RA Abd: Soft, non-distended, appropriately tender, no guarding BMP Recent Labs Lab 07/18/23 0552 07/18/23 0057 07/17/23 1858 07/17/23 0557 07/16/23 0542 07/16/23 0042 NA -- -- -- 137 137 138 POTASSIUM 3.1* 3.1* 3.4 3.0* 3.5 3.7 CHLORIDE -- -- -- 103 105 105 CO2 -- -- -- 25 21* 22 BUN -- -- -- 18.5 19.6 18.3 CR -- -- -- 0.72 0.81 0.88 GLC -- -- -- 97 109* 106* MAG -- -- -- 1.8 -- -- CBC Recent Labs Lab 07/17/23 0557 07/16/23 0542 07/16/23 0042 WBC 15.8* 21.3* 26.3* HGB 11.8* 11.7* 12.2* HCT 35.1* 34.7* 36.7* PLT 254 271 268 ASSESSMENT: This is a 78 year old male with diverticular abscess complicated by c diff infection. Clinically stable, awaiting return of bowel function. PLAN: No indications for urgent surgical management. Continue regular diet. Support with IVF as PO intake seems to be poor. Add metamucil. No imodium. Consider nutrition consult Potassium being replaced. Senna discontinued. Continue vanc and flagyl. No other antibiosis per ID. Last CT demonstrated 2x2 cm abscess. Would like to get him through this acute episode for elective surgery in the future. Will continue to follow along Dori Sutherland MD [facility] [address] [place] [address] T: [phone] F: [phone] Pager: [phone] For questions/paging, please contact the CRS office at [phone]. 07/18/2023 10:29 AM [employer] * Vidya Roldan MD - 07/17/2023 10:54 AM CST Images from the original note were not included. COLON & RECTAL SURGERY PROGRESS NOTE S: feels much better this AM, still having diarrhea but no pain and already OOB Vitals: Vitals: 07/16/23 2200 07/17/23 0040 07/17/23 0340 07/17/23 0741 BP: (!) 147/76 (!) 155/70 BP Location: Right arm Right arm Patient Position: Supine Cuff Size: Adult Regular Pulse: 85 80 Resp: 16 Temp: 98.7 ??F (37.1 ??C) 98.1 ??F (36.7 ??C) TempSrc: Oral Oral SpO2: 92% 94% 92% 95% Weight: I/O: I/O last 3 completed shifts: In: 2498 [P.O.:480; I.V.:2018] Out: 200 [Urine:200] PE: General - Awake alert and oriented, appears stated age Pulm - Non-labored breathing with normal respiratory effort CVS - reg rate and rhythm, no peripheral edema Abd - soft, non-tender, non-distended. No guarding, rigidity or peritoneal signs. Labs: Recent Labs Lab 07/17/23 0557 07/16/23 0542 07/16/23 0042 WBC 15.8* 21.3* 26.3* HGB 11.8* 11.7* 12.2* PLT 254 271 268 NA 137 137 138 POTASSIUM 3.0* 3.5 3.7 CHLORIDE 103 105 105 CO2 25 21* 22 BUN 18.5 19.6 18.3 CR 0.72 0.81 0.88 GLC 97 109* 106* AST -- 25 -- ALT -- 12 -- A/P: 78 year old man with diverticulitis w/abscess not amenable to percutaneous drainage, managed with courses of antibiotics who now presents with C.diff colitis. Clinically he appears well, WBC andsymptoms improving. No indication for urgent surgical intervention. Ok for diet as tolerated from CRS perspective. Appreciate hospitalist or ID management of antibiotic regimen for C.diff colitis in setting of recent antibiotic use. Will plan for surgery in a few weeks as is scheduled. CRS will follow. For questions/paging, please contact the CRS office at [phone]. Vidya Roldan MD Colorectal Surgery Fellow [facility] [address] [place] [address] T: [phone] F: [phone] [email or web address] [employer] * Wiliam Henley MD - 07/17/2023 9:57 AM CST [facility] Medicine Progress Note - Hospitalist Service Date of Admission: 07/15/2023 Assessment & Plan Matthew Wu is a 78 year old male with history of hypertension, CAD s/p CABG, current smoker c/bCOPD who initially presented with intra-abdominal abscess incidentally found on a lumbar MRI at theend of February 2023. The abscess is not amenable to drainage and he has been followed by colorectal surgery and has had a few admissions and is being treated with oral antibiotics with future surgical treatment by colorectal surgery. He has been on multiple courses of inpatient and outpatient antibiotics. He acute became ill yesterday with increased weakness and fell a couple of times. He was taken to [place] ER, where he had a normal CXR but elevated wbc. CT showed improved diverticular abscess sizes. He further decompensated with sever diarrhea associated with nausea and vomiting and repeat CXR showed possible aspiration. CT of abdomen/pelvis shows diffuse hastings colitis and c.diff toxin came back +. He was treated with initial dose of zosyn and vancomycin and transferred to [facility]. Acute C.diff pancolitis Possible developing ileus Patient presented with soft blood pressures, but abdomen was soft, borderline tachycardic but mentation at baseline, accompanied by his . Admitted to inpatient under IMC status. IV fluids. Continue oral vancomycin and IV flagyl. As needed pain and nausea medications available. Symptoms improved per patient report, but still having fairly frequent loose stools. Advance to regular diet. Colorectal surgery consulted, appreciate their assistance. Infectious disease consulted, appreciate their assistance. Diverticular abscess, improved Diagnosed in March 2023. Unable to be drained percutaneously. Has been on antibiotics with someimprovement, but he does have a persistent abscess. Has been followed by colorectal surgery as an outpatient, planning sigmoid colectomy on 08/13/23. CT abdomen/pelvis on 07/15/23 at outside facility showed decrease in size of abscess. Colorectal surgery consulted, appreciate their assistance. Infectious disease consulted, appreciate their assistance. Hypokalemia Replace and recheck per RN managed protocol. Lumbar stenosis Would like to avoid narcotics as much as possible in setting of c.diff hastings colitis. Tylenol as needed ordered. Follow-up with neurosurgery as outpatient for potential surgery once he recovers from his acute illness. Coronary artery disease, s/p stent to the circumflex in 2003 Hypertension Hyperlipidemia Echo 2010 mild sclerotic aortic and mitral valve without Doppler abnormalities. Normal LV size and function with EF of 65%. Continue [employer] simvastatin. Restart X [employer]ELOPER lisinopril today as blood pressure trending up. Has not been taking aspirin for the past two months, will not resume right now. Anemia Hemoglobin has been stable around 10 since 03/25. No sign of bleeding. Hgb of 11.7 in the ER. Stable at 11.8 on 07/17/23. Generalized anxiety Continue X R[employer]ELOPER Xanax. COPD Not on bronchodilators or inhaled steroids prior to admission. PRN DuoNebs available. Tobacco use disorder Smokes 1 pack/day. Nicotine patch 21 mg ordered with Nicorette lozenges as needed. Encouraged to continue to abstain from tobacco use. Glaucoma Continue X [employer]ELOPER latanoprost drops every evening. Diet: Clear Liquid Diet DVT Prophylaxis: Pneumatic Compression Devices Gomez Catheter: Not present Lines: None Cardiac Monitoring: None Code Status: Full Code Clinically Significant Risk Factors # Hypokalemia: Lowest K = 3 mmol/L in last 2 days, will replace as needed # Hypoalbuminemia: Lowest albumin = 3 g/dL at 07/16/2023 5:42 AM, will monitor as appropriate Disposition Plan Expected Discharge Date: 07/20/2023 Discharge Comments: 07/15 Direct admit [facility] [place] Wiliam Henley MD Hospitalist Service [facility] Securely message with [employer] (more info) Text page via [facility] Paging/Directory Interval History Matthew Wu was seen this morning. He feels better today. Denies fevers, chest pain, shortness of breath, nausea, abdominal pain. Continues to have loose stools, has had about 4 so far since midnight. Feels hungry and wants to advance diet. Physical Exam Vital Signs: Temp: 98.1 ??F (36.7 ??C) Temp src: Oral BP: (!) 155/70 Pulse: 80 Resp: 16 SpO2: 95 % O2 Device: None (Room air) Oxygen Delivery: 2 LPM Weight: 166 lbs 3.2 oz Constitutional: awake, alert, cooperative, no apparent distress, laying in the hospital bed with the head of the bed elevated Respiratory: no increased work of breathing, clear to auscultation bilaterally, no crackles or wheezing Cardiovascular: regular rate and rhythm, normal S1 and S2, no murmur noted GI: normal bowel sounds, soft, non-distended, non-tender Skin: warm, dry Musculoskeletal: no lower extremity pitting edema present Neurologic: awake, alert, answers questions appropriately, moves all extremities Medical Decision Making 40 MINUTES SPENT BY ME on the date of service doing chart review, history, exam, documentation & further activities per the note. Data I have personally reviewed the following data over the past 24 hrs: 15.8 (H) \ 11.8 (L) / 254 137 103 18.5 / 97 3.0 (L) 25 0.72 \ [facility] [employer] * Wiliam Henley MD - 07/16/2023 11:19 AM CST [facility] Medicine Progress Note - Hospitalist Service Date of Admission: 07/15/2023 Assessment & Plan Matthew Wu is a 78 year old male with history of hypertension, CAD s/p CABG, current smoker c/bCOPD who initially presented with intra-abdominal abscess incidentally found on a lumbar MRI at theend of February 2023. The abscess is not amenable to drainage and he has been followed by colorectal surgery and has had a few admissions and is being treated with oral antibiotics with future surgical treatment by colorectal surgery. He has been on multiple courses of inpatient and outpatient antibiotics. He acute became ill yesterday with increased weakness and fell a couple of times. He was taken to [place] ER, where he had a normal CXR but elevated wbc. CT showed improved diverticular abscess sizes. He further decompensated with sever diarrhea associated with nausea and vomiting and repeat CXR showed possible aspiration. CT of abdomen/pelvis shows diffuse hastings colitis and c.diff toxin came back +. He was treated with initial dose of zosyn and vancomycin and transferred to [facility]. Acute C.diff pancolitis Possible developing ileus Patient presented with soft blood pressures, but abdomen was soft, borderline tachycardic but mentation at baseline, accompanied by his . Admitted to inpatient under IMC status. IV fluids. Continue oral vancomycin and IV flagyl. As needed pain and nausea medications available. Clear liquid diet for now. Colorectal surgery consulted, appreciate their assistance. Infectious disease consulted, appreciate their assistance. Diverticular abscess, improved Diagnosed in March 2023. Unable to be drained percutaneously. Has been on antibiotics with someimprovement, but he does have a persistent abscess. Has been followed by colorectal surgery as an outpatient, planning sigmoid colectomy on 08/13/23. CT abdomen/pelvis on 07/15/23 at outside facility showed decrease in size of abscess. Colorectal surgery consulted, appreciate their assistance. Infectious disease consulted, appreciate their assistance. Lumbar stenosis Would like to avoid narcotics as much as possible in setting of c.diff hastings colitis. Tylenol as needed ordered. Follow-up with neurosurgery as outpatient for potential surgery once he recovers from his acute illness. Coronary artery disease, s/p stent to the circumflex in 2003 Hypertension Hyperlipidemia Echo 2010 mild sclerotic aortic and mitral valve without Doppler abnormalities. Normal LV size and function with EF of 65%. Continue X [employer]ELOPER simvastatin. X RAY DEVELOPER lisinopril on hold, consider restarting as BP trends up. Has not been taking aspirin for the past two months, will not resume right now. Anemia Hemoglobin has been stable around 10 since 03/25. No sign of bleeding. Hgb of 11.7 Follow-up hemoglobin ordered Generalized anxiety Continue X [employer]ELOPER Xanax as needed once verified COPD Not on bronchodilators or inhaled steroids prior to admission. PRN DuoNebs available. Tobacco use disorder Smokes 1 pack/day. Nicotine patch 21 mg ordered with Nicorette lozenges as needed. Glaucoma Continue X [employer]ELOPER latanoprost drops every evening. Diet: Clear Liquid Diet DVT Prophylaxis: Pneumatic Compression Devices Gomez Catheter: Not present Lines: None Cardiac Monitoring: ACTIVE order. Indication: sepsis Code Status: Full Code Clinically Significant Risk Factors Present on Admission # Hypoalbuminemia: Lowest albumin = 3 g/dL at 07/16/2023 5:42 AM, will monitor as appropriate # Drug Induced Platelet Defect: home medication list includes an antiplatelet medication # Hypertension: Home medication list includes antihypertensive(s) Disposition Plan Expected Discharge Date: 07/20/2023 Discharge Comments: 07/15 Direct admit [facility] [place] Wiliam Henley MD Hospitalist Service [facility] Securely message with [employer] (more info) Text page via [employer] Paging/Directory Interval History Matthew Wu was seen this morning. He feels a little better today. No abdominal pain. Continues to have loose, watery stools. No fevers, chest pain, shortness of breath, nausea. Appetite is poor. His was in the room with him, discussed plan of care. Physical Exam Vital Signs: Temp: 98.3 ??F (36.8 ??C) Temp src: Oral BP: 115/62 Pulse: 90 Resp: 20 SpO2: 96 % O2 Device: Oxymask Oxygen Delivery: 3 LPM Weight: 166 lbs 3.2 oz Constitutional: awake, alert, cooperative, no apparent distress, laying in the hospital bed with the head of the bed elevated Respiratory: no increased work of breathing, clear to auscultation bilaterally, no crackles or wheezing Cardiovascular: regular rate and rhythm, normal S1 and S2, no murmur noted GI: normal bowel sounds, soft, non-distended, non-tender Skin: warm, dry Musculoskeletal: no lower extremity pitting edema present Neurologic: awake, alert, answers questions appropriately, moves all extremities Medical Decision Making 55 MINUTES SPENT BY ME on the date of service doing chart review, history, exam, documentation & further activities per the note. Data I have personally reviewed the following data over the past 24 hrs: 21.3 (H) \ 11.7 (L) / 271 137 105 19.6 / 109 (H) 3.5 21 (L) 0.81 \ ALT: 12 AST: 25 AP: 68 TBILI: 0.4 ALB: 3.0 (L) TOT PROTEIN: 5.9 (L) LIPASE: N/A Procal: N/A CRP: N/A Lactic Acid: 1.2 [employer] documented in this encounter H&P Notes * Gene Nielsen MD - 07/16/2023 7:49 AM CST [facility] History and Physical - Hospitalist Service Date of Admission: 07/15/2023 Assessment & Plan Matthew Wu is a 78 year old male with history of hypertension, CAD s/p CABG, current smoker c/bCOPD who initially presented with intra-abdominal abscess incidentally found on a lumbar MRI at theend of February 2023. The abscess is not amenable to drainage and he has been followed by colorectal surgery and has had a few admissions and is being treated with oral antibiotics with future surgical treatment by colorectal surgery. He has been on multiple courses of inpatient and outpatient antibiotics. He acute became ill yesterday with increased weakness and fell a couple of times. He was taken to [place] ER, where he had a normal CXR but elevated wbc. CT showed improved diverticular abscess sizes. He further decompensated with sever diarrhea associated with nausea and vomiting and repeat CXR showed possible aspiration. CT of abd shows diffuse hastings colitis and c.diff toxin came back +.He was treated with initial dose of zosyn and vancomycin and transferred to [facility]. ## Acute C.diff pancolitis ## Possible developing ileus Patient presented with soft blood pressures, but abdomen is soft, borderline tachycardia but mentation at baseline accompanied by his -- admit to [facility] -- LR infusion, was given 500 ml bolus for SBP in the 90's upon arrival -- will keep NPO -- oral vancomycin, start IV flagyl -- monitor with serial abdominal exam, Abd is distended but able to palpate deeply without any tenderness -- lactic acid is normal -- ID consultation -- CRS consultation ## Diverticular abscess - stable Overall size of these abscesses have improved from prior imaging. -- suspect these abscess are not playing any active role in his current decompensation -- patient is set to undergo surgery on 08/13/23 ## Lumbar stenosis Would like to avoid narcotics as much as possible in setting of c.diff hastings colitis Tylenol as needed ordered Follow-up with neurosurgery as outpatient for potential surgery once he recovers from diverticulitis. ## CAD, s/p stent to the circumflex in 2003 ## Hypertension, hyperlipidemia *Echo 2010 mild sclerotic aortic and mitral valve without Doppler abnormalities. Normal LV size andfunction with EF of 65% hold X R[employer] DEVELOPER lisinopril, simvastatin Hold aspirin initially as we await colorectal review Anemia, unfortunately do not have prior baseline but I see this listed in his past medical history.Hemoglobin has been stable around 10 since 03/25. No sign of bleeding. Hgb of 11.7 Follow-up hemoglobin ordered Generalized anxiety Continue X R[employer] DEVELOPER Xanax as needed once verified COPD -on no X R[employer] DEVELOPER bronchodilators or inhaled steroids Tobacco use disorder - Smokes 1 pack/day. Nicotine patch 21 mg ordered with Nicorette lozenges as needed Will order duonebs prn as needed Diet: NPO for Medical/Clinical Reasons Except for: Meds DVT Prophylaxis: Pneumatic Compression Devices Gomez Catheter: Not present Lines: None Cardiac Monitoring: ACTIVE order. Indication: sepsis Code Status: Full Code Clinically Significant Risk Factors Present on Admission # Hypoalbuminemia: Lowest albumin = 3 g/dL at 07/16/2023 5:42 AM, will monitor as appropriate # Drug Induced Platelet Defect: home medication list includes an antiplatelet medication # Hypertension: Home medication list includes antihypertensive(s) Disposition Plan Expected Discharge Date: 07/20/2023 Discharge Comments: 07/15 Direct admit [facility] [place] Gene Nielsen MD Hospitalist Service [facility] Securely message with [employer] (more info) Text page via [facility] Paging/Directory Chief Complaint Fall, weakness, diarrhea History is obtained from the patient medical records, patient and his significant others. History of Present Illness Matthew Wu is a 78 year old male with history of hypertension, CAD s/p CABG, current smoker c/bCOPD who initially presented with intra-abdominal abscess incidentally found on a lumbar MRI. He was seen at [facility] at the end of February and it was noted that this abscess would not amenable toIR drainage due to location. He signed out AGAINST MEDICAL ADVICE at that time. He also has historyof chronic low back pain with finding of lumbar stenosis and has been seen by neurosurgery. He was admitted to [facility] from 03/27 - 03/30/23 with acute sigmoid diverticulitis with associated pelvic abscess. He was seen by colorectal surgery. He was seen by IR and once again did not have access to s afely put a percutaneous drain. It was decided that he will be treated with antibiotics with repeatscans and outpatient follow-up with colorectal surgery. The patient lives in [place] and suddenly became weak with multiple falls on the morning of July 15. He was taken to the emergency department after a fall. He had an episode of severe watery stools and nausea vomiting. His BMP was significant for sodium 136 potassium 4.3 normal creatinine glucose of 147 lactate of 2.2 normal LFTs and negative troponin. WBC is 24, hgb 13 and PLT 326. COVID and influenza was negative. Portable chest x-ray showed no evidence of acute pulmonary process. However after the aspiration episode a repeat chest ray showed mild interstitial opacities bilaterally that may reflect a mild pulm edema versus atypical viral process. CT of the abdomen pelvis showed interval decrease in the peridiverticular abscess now measuring 2.2 x 2 cm. There is evidence of pancolitis. Prominent loops of nondilated fluid-filled small bowel in the left lower quadrant noted this reflected isolated ileus versus early small bowel obstruction. There is also mild stable left hydronephrosis and proximal left hydroureter without obstructing stone identified. The ER physician discussed with colorectal surgery and was given Zosyn initially for possible aspiration pneumonitis. The patient's C. difficile toxin also came back positive and the patient was on oral vancomycin prior to transfer Past Medical History Osteoarthritis Erectile dysfunction Asthma Diverticulitis with diverticular abscess ASCVD with CABG COPD with hx of tobacco Lumbar stenosis HTN HLP Generalized anxiety Past Surgical History CABG Status post anal fissurectomy Status post CAD stent placement Status post cataract extraction Status post tonsillectomy and adenoidectomy History of rhinoplasty Prior to Admission Medications Prior to Admission Medications Prescriptions Last Dose Informant Patient Reported? Taking? ALPRAZolam (XANAX) 0.25 MG tablet Self Yes No Sig: Take 0.25 mg by mouth 2 times daily as needed for anxiety acetaminophen (TYLENOL) 325 MG tablet No No Sig: Take 2 tablets (650 mg) by mouth every 6 hours as needed for mild pain Maximum of 4,000 mg of acetaminophen in any 24 hour period. aspirin (ASA) 325 MG EC tablet Self Yes No Sig: Take 325 mg by mouth daily lisinopril (ZESTRIL) 20 MG tablet Self Yes No Sig: Take 20 mg by mouth daily multivitamin w/minerals (MULTI-VITAMIN) tablet Self Yes No Sig: Take 1 tablet by mouth daily nitroGLYcerin (NITROSTAT) 0.4 MG sublingual tablet Self Yes No Sig: Place 0.4 mg under the tongue every 5 minutes as needed for chest pain For chest pain place 1 tablet under the tongue every 5 minutes for 3 doses. If symptoms persist 5 minutes after 1st dose call 911. oxyCODONE-acetaminophen (PERCOCET) 5-325 MG tablet Yes No Sig: Take 1 tablet by mouth every 6 hours as needed for severe pain . Maximum of 4,000 mg of acetaminophen in any 24 hour period. polyethylene glycol (MIRALAX) 17 GM/Dose powder No No Sig: Take 17 g by mouth daily as needed for constipation simvastatin (ZOCOR) 20 MG tablet Self Yes No Sig: Take 20 mg by mouth At Bedtime Facility-Administered Medications: None Physical Exam Vital Signs: Temp: 98.6 ??F (37 ??C) Temp src: Oral BP: 105/52 Pulse: 86 Resp: 22 SpO2: 96 % O2 Device: Oxymask Oxygen Delivery: 3 LPM Weight: 166 lbs 3.2 oz General Appearance: Awake and alert, dysphoric Respiratory: diminished bilaterally Cardiovascular: RRR GI: Soft minimal bowel sounds, distended, non tender, no guard or rebound Skin: warm and dry Other: Moves all 4 ext Medical Decision Making 80 MINUTES SPENT BY ME on the date of service doing chart review, history, exam, documentation & further activities per the note. Data I have personally reviewed the following data over the past 24 hrs: 21.3 (H) \ 11.7 (L) / 271 137 105 19.6 / 109 (H) 3.5 21 (L) 0.81 \ ALT: 12 AST: 25 AP: 68 TBILI: 0.4 ALB: 3.0 (L) TOT PROTEIN: 5.9 (L) LIPASE: N/A Procal: N/A CRP: N/A Lactic Acid: 1.2 Imaging results reviewed over the past 24 hrs: No results found for this or any previous visit (from the past 24 hour(s)). [facility] [employer] documented in this encounter Consult Notes * Sybil Steinberg MD - 07/16/2023 11:15 AM CSTAssociated Order(s): INFECTIOUS DISEASES IP CONSULT [facility] Infectious Disease Consultation Date of Admission: 07/15/2023 Date of Consult (When I saw the patient): 07/16/23 Assessment & Plan Matthew Wu is a 78 year old who was admitted on 07/15/2023. Impression: 78 yo with PMH of hypertension, CAD s/p CABG, current smoker c/b COPD Long standing history of intra-abdominal abscess [facility]ally [facility]. [facility] it was noted that this abscess would not amenable to IR drainage due to location. He signed out AGAINST MEDICAL ADVICE at that time. He also has history of chronic low back pain with finding of lumbar stenosis and has been seen by neurosurgery. He was admitted to [facility] from 03/27 - 03/30/23 with acute sigmoid diverticulitis with associatedpelvic abscess. He was seen by colorectal surgery. He was seen by IR and once again did not have access to safely put a percutaneous drain. It was decided that he will be treated with antibiotics with repeat scans and outpatient follow-up with colorectal surgery. The patient lives in [place] and suddenly became weak with multiple falls on the morning of July 15. He was taken to the emergency department after a fall. He had an episode of severe watery stools and nausea vomiting. CT of the abdomen pelvis showed interval decrease in the peridiverticular abscess now measuring 2.2x 2 cm. There is evidence of pancolitis. Prominent loops of nondilated fluid-filled small bowel in the left lower quadrant noted this reflected isolated ileus versus early small bowel obstruction. Tested positive for C diff On oral vanco + metronidazole IV Pending colorectal eval Recommendations: Patient has been on one antibiotics or other systemic for the past many weeks Last antibiotics he was on was cipro C diff most likely antibiotics use related Agree with Oral Vanco + Iv flagyl Given decrease in the intraabdominal abscess size, and current constant diarrhea due to C diff, hold systemic antibiotics Watch for clinical improvement might have to consider a sooner surgery if not improving or any worsening in symptoms. Sybil Steinberg MD Reason for Consult Reason for consult: I was asked to evaluate this patient for severe C difficile infection. Primary Care Physician Physician No Ref-Primary Chief Complaint Abdomen pain Generalized weakness History is obtained from the patient and medical records History of Present Illness Matthew Wu is a 78 year old male who presents with continued diarrhea for last few days, abdominal cramping falls feeling very unwell for past few days Past Medical History I have reviewed this patient's medical history and updated it with pertinent information if needed. No past medical history on file. Past Surgical History I have reviewed this patient's surgical history and updated it with pertinent information if needed. No past surgical history on file. Prior to Admission Medications Prior to Admission Medications Prescriptions Last Dose Informant Patient Reported? Taking? ALPRAZolam (XANAX) 0.25 MG tablet Self Yes No Sig: Take 0.25 mg by mouth 2 times daily as needed for anxiety acetaminophen (TYLENOL) 325 MG tablet No No Sig: Take 2 tablets (650 mg) by mouth every 6 hours as needed for mild pain Maximum of 4,000 mg of acetaminophen in any 24 hour period. aspirin (ASA) 325 MG EC tablet Self Yes No Sig: Take 325 mg by mouth daily lisinopril (ZESTRIL) 20 MG tablet Self Yes No Sig: Take 20 mg by mouth daily multivitamin w/minerals (MULTI-VITAMIN) tablet Self Yes No Sig: Take 1 tablet by mouth daily nitroGLYcerin (NITROSTAT) 0.4 MG sublingual tablet Self Yes No Sig: Place 0.4 mg under the tongue every 5 minutes as needed for chest pain For chest pain place 1 tablet under the tongue every 5 minutes for 3 doses. If symptoms persist 5 minutes after 1st dose call 911. oxyCODONE-acetaminophen (PERCOCET) 5-325 MG tablet Yes No Sig: Take 1 tablet by mouth every 6 hours as needed for severe pain . Maximum of 4,000 mg of acetaminophen in any 24 hour period. polyethylene glycol (MIRALAX) 17 GM/Dose powder No No Sig: Take 17 g by mouth daily as needed for constipation simvastatin (ZOCOR) 20 MG tablet Self Yes No Sig: Take 20 mg by mouth At Bedtime Facility-Administered Medications: None Allergies No Known Allergies Immunization History Immunization History Administered Date(s) Administered COVID-19 12+ (2022-) (MODERNA) 05/07/2023 COVID-19 Bivalent 12+ (Pfizer) 04/20/2022 COVID-19 MONOVALENT 12+ (Pfizer) 09/27/2020, 10/18/2020, 06/10/2021 COVID-19 Monovalent 12+ (Pfizer 2021) 01/01/2022 Social History I have reviewed this patient's social history and updated it with pertinent information if needed. Matthew Wu Family History I have reviewed this patient's family history and updated it with pertinent information if needed. No family history on file. Review of Systems The 10 point Review of Systems is negative Physical Exam Temp: 98.3 ??F (36.8 ??C) Temp src: Oral BP: 115/62 Pulse: 90 Resp: 20 SpO2: 96 % O2 Device: Oxymask Oxygen Delivery: 3 LPM Vital Signs with Ranges Temp: [97.8 ??F (36.6 ??C)-99.2 ??F (37.3 ??C)] 98.3 ??F (36.8 ??C) Pulse: [86-90] 90 Resp: [16-23] 20 BP: (93-115)/(51-84) 115/62 SpO2: [95 %-99 %] 96 % 166 lbs 3.2 oz Body mass index is 26.03 kg/m??. GENERAL APPEARANCE: awake EYES: Eyes grossly normal to inspection NECK: no adenopathy RESP: lungs clear CV: regular rates and rhythm LYMPHATICS: normal ant/post cervical and supraclavicular nodes ABDOMEN: soft, nontender MS: extremities normal SKIN: no suspicious lesions or rashes Data All laboratory and imaging data in the past 24 hours reviewed No results for input(s): CULT in [...] found for this or any previous visit. [facility] [employer] * Dandy New PA-C - 07/16/2023 8:33 AM CSTAssociated Order(s): COLORECTAL SURGERY IP CONSULT Images from the original note were not included. [facility] Rectal Surgery Consult Note Name: Matthew Wu Date of : 1945 Age: [age] year old Date of admission: 07/15/2023 Primary care provider: No Ref-Primary, Physician Requesting Physician: Dr. Nielsen Reason for consult: C diff, diverticular abscess History of Present Illness: Matthew Wu is a 78 year old male with a history of CAD s/p CABG, HTN, current smoker with COPD,intraabdominal abscess, seen at the request of Dr. Nielsen, who presented to the [place] ED yesterday with weakness and diarrhea. He was admitted in March with diverticulitis with an abscess. This was discovered on workup for back pain. Surgical intervention was recommended but declined. Unfortunately percutaneous drainage was not possible. He did eventually improve with conservative management. He did continue to have some symptoms so his PCP had him on Cipro and Flagyl which she just recently finished. Repeat CT scans as recently as 07/08 showed a persistent. He followed up in clinic with Dr. Barba on 07/12 and was doing well at that time, but given the ongoing abscess he is now scheduled for a sigmoid colectomy on 08/13/23. He presented to the [place] ED yesterday after developing weakness and some diarrhea. While in the ED he had multiple episodes of diarrhea and some vomiting. Labs are notable for lactate 2.2, WBC 24, Hgb 13, and he is positive for C. difficile. CT abdomen/pelvis showed an interval decrease in the abscess compared to previous CT. There was also pancolitis and some fluid-filled loops of small bowel. He was transferred here for further evaluation and management. He is on oral vancomycin and IV Flagyl. ID has been consulted. This morning Estevan seems slightly confused/forgetful, otherwise reports he is feeling better. He denies having abdominal pain currently or when he came into the ED yesterday. He continues to have diarrhea. No longer feeling nauseous. He says he feels very thirsty and wants something to drink. He states he will leave if he is not already home by . He is hemodynamically stable and afebrile. WBC recheck was 21.3. Lactate improved to 1.2. Colonoscopy History: Last done about 8 years ago Past abdominal surgery: None Past Medical History: No past medical history on file. Past Surgical History: No past surgical history on file. Social History: Social History Tobacco Use Smoking status: Not on file Smokeless tobacco: Not on file Substance Use Topics Alcohol use: Not on file Family History: No family history on file. Allergies: No Known Allergies Medications: lactobacillus rhamnosus (GG) 1 capsule Oral TID AC metroNIDAZOLE 500 mg Intravenous Q8H nicotine 1 patch Transdermal Daily nicotine Transdermal Q8H sodium chloride (PF) 3 mL Intracatheter Q8H vancomycin 125 mg Oral 4x Daily Review of Systems: A comprehensive greater than 10 system review of systems was carried out. Pertinent positives and negatives are noted above. Otherwise negative for contributory info. Physical Exam: Blood pressure 105/52, pulse 86, temperature 99.2 ??F (37.3 ??C), temperature source Oral, resp. rate 22, weight 75.4 kg (166 lb 3.2 oz), SpO2 96%. Intake/Output Summary (Last 24 hours) at 07/16/2023 1042 Last data filed at 07/16/2023 0757 Gross per 24 hour Intake 508.33 ml Output 400 ml Net 108.33 ml Exam: General - Awake alert and oriented, appears stated age Pulm - Non-labored breathing with normal respiratory effort CVS - reg rate and rhythm, no peripheral edema Abd - soft, non-tender, non-distended. No guarding, rigidity or peritoneal signs. Neuro - CN II-XII grossly intact Musculoskeletal - extremities with no clubbing, cyanosis or edema; able to ambulate Psych - responsive, alert, cooperative; oriented x3; appropriate mood and affect External/skin - inspection reveals no rashes, lesions or ulcers, normal coloring Data Reviewed: No results found for this or any previous visit (from the past 48 hour(s)). Recent Labs Lab 07/16/23 0542 07/16/23 0042 WBC 21.3* 26.3* HGB 11.7* 12.2* HCT 34.7* 36.7* MCV 93 93 PLT 271 268 Recent Labs Lab 07/16/23 0542 07/16/23 0042 NA 137 138 POTASSIUM 3.5 3.7 CHLORIDE 105 105 CO2 21* 22 ANIONGAP 11 11 GLC 109* 106* BUN 19.6 18.3 CR 0.81 0.88 GFRESTIMATED 90 87 ALEIDA 8.3* 8.3* PROTTOTAL 5.9* -- ALBUMIN 3.0* -- BILITOTAL 0.4 -- ALKPHOS 68 -- AST 25 -- ALT 12 -- Assessment and Plan: Matthew Wu is a 78 year old male with a history of diverticulitis with an abscess which has been managed conservatively as he review surgery initially and it was not amenable to percutaneous drainage. He has been on antibiotics recently and the abscess is still there on recent scans, so he is now scheduled for sigmoid colectomy on 08/13/[address] Barba. He presented to the [place] ED yesterday with weakness and diarrhea. Workup was notable for leukocytosis to 26, C. difficile positive, and CT findings of ongoing abscess and pancolitis. He was transferred here for further evaluationand management. He is on oral Vanco and IV Flagyl. No indication for surgical intervention at this time. Recommend continuing antibiotics for treatment of C. difficile, defer to ID for duration. He denies any abdominal pain and exam is benign so there is no indication for more urgent surgery for his diverticulitis/abscess. Gave him clear liquids but stressed the importance of bowel rest. For now we will keep surgery scheduled for 08/13 as previously planned. If he has complications related to c diff he may end up needing surgery sooner. CRS willcontinue to follow. Discussed with Dr. Barba. Patient specific identified risk factors considered as part of today???s evaluation include: CAD, COPD, smoker, HTN, c diff Additional history obtained from patient/spouse, chart review, [facility] records. Time spent on consultation: 45 minutes, greater than 50% spent on counseling and/or coordination of care. 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 I personally reviewed the vital signs, medications, labs, and imaging. I personally performed the substantive portion of the medical decision making for this visit - please see the TRAVIS's documentation for full details. Rai management decisions made by me and carried out under my direction: Matthew Wu is a 78-year-old male well-known to me who was admitted with weakness, diarrhea and C.difficile colitis. Actually just saw him in clinic on Wednesday and we had planned for surgery for hispersistent pelvic abscess which is likely due to diverticulitis. He had been doing well at that time unfortunately he had acute clinical decline which prompted his visit to the ER yesterday. He is significantly improved since admission with improving mental status. He denies any abdominal pain and his white count is improved. Appreciate infectious disease recommendations regarding management of his C. difficile. We will continue to follow the patient but I do not anticipate any acute surgical in tervention during this hospitalization. I do still recommend that we proceed with surgery for his diverticulitis and pelvic abscess we will have to see how he does over the next several days. We may need to push back the surgery depending on his recovery. I personally performed the substantive portion of the history for this visit - please see the RTAVIS'sdocumentation for full details. Rai additional history findings made by me: This is a 78-year-old male with a history of coronary artery disease status post CABG, hypertension, current smoker with COPD who was admitted with weakness, diarrhea and C. difficile colitis. I had initially met him back in March when he was admitted to the hospital for pelvic abscess. We had attempted percutaneous drainage unfortunately the location of the abscess was not accessible. We therefore elected to treat him with antibiotics and he was discharged home. He had not had any follow-up with me in clinic until this past Wednesday, although we have been trying to get him into clinic for follow-up for a couple of months.. He had been seeing his primary care physician in [place] and had been on a steady course of antibiotics for roughly 8 weeks. He reports that he finished antibiotics about a week ago. When I saw him on Wednesday he was actually doing quite well. We actually scheduled him for surgery for sigmoid colectomy. He reports that after discharge she did well for couple of days and then had acute weakness and diarrhea which prompted him to present to the ER. In the ER he was noted to be tachycardic and slightly hypotensive with altered mental status. A CT scan was obtained which showed decreased size in the pelvic abscess but also pancolitis. He had stool testing which was positive for C. difficile and therefore this is likely due to C. difficile colitis. He reports since admission he is doing better. He is more alert and oriented. He continues to deny any abdominal pain. His labs have improved with a decrease in leukocytosis. Unfortunately continues tohave diarrhea and has had about 6 loose watery stools today. I personally performed the substantive portion of the physical exam - please see the TRAVIS's documentation for full details. I concur with the TRAVIS exam findings, in addition I have noted: On exam he is alert and oriented in no acute distress. His abdomen is soft, mildly distended but nontender. There is no rebound guarding or peritoneal signs. Carlyn Barba MD Date of Service (when I saw the patient): 07/16/23 documented in this encounter Miscellaneous Notes * Plan of Care - Kalyn Villalobos RN - 07/19/2023 6:50 AM CST AxOx4, forgetful. Intermittently anxious and/or frustrated. Enteric precautions. VSS on RA except HTN. Assist x1 GB; able to pivot independently to commode. Regular diet. Urinal atbedside with adequate output. BM x1. PIV x1, infusing LR at 100. Scheduled abx. Redness to perineum/buttocks. Denies pain / nausea / shortness of breath. Continue plan of care. Currently planning for colorectal surgery in July as scheduled prior to admission. [facility] [employer] * Plan of Care - Kalyn Villalobos RN - 07/18/2023 6:45 AM CST AxOx4, forgetful. Anxious at times. Enteric precautions. VSS on RA. Assist x1 GB. Regular diet, low appetite but denies nausea. Urinal at bedside with adequate output. BM x4. PIV x1, infusing LR at 100. Scheduled abx. Redness to perineum and buttocks, barrier cream applied. Denies pain / nausea / shortness of breath. K replaced x2 this shift per protocol. Continue plan of care. Currently planning for surgery in July as scheduled. [facility] [employer] * Plan of Care - Apple Betts RN - 07/17/2023 6:22 PM CST Orientation: A&Ox4, forgetful. Vitals/Pain: VSS on RA. Diet: Tolerates regular diet. Lungs: Clear/dim LS. Lines/Drains: PIV infusing LR @100 ml/hr, int abx. Skin/Wounds: Blanchable red bottom, barrier cream applied. GI/: AUO. Multiple watery/loose BM's. Enteric precautions maintained. Labs: Replaced K per protocol, awaiting for new K lab to be drawn. Ambulation/Assist: Up SBA to BSC, sat in chair. Plan: Pt will have surgery in a few weeks per colorectal. Continue to monitor. [employer] * Plan of Care - Kalyn Villalobos RN - 07/17/2023 6:50 AM CST 0526-3607. AxOx4, forgetful. Enteric precautions. VSS on RA. Assist x1 GB/W. Clear liquid diet. Urinal at bedside with adequate output. BM x3. PIV x1, infusing LR at 100. Scheduled abx. Blanchable redness/rash to buttocks + perineum. Denies pain / nausea / shortness of breath. Continue plan of care. [facility] [employer] * Plan of Care - Sissy Bustillo RN - 07/16/2023 10:29 PM CST 3073-0644: A&Ox4, forgetful. VSS. Weaned off oxygen, sating 90-92% on room air. Denies pain. LS diminished. +BS, +Gas, Diarrhea (BMx3 - 1 incontinent). Voiding via urinal. Up to bedside commode with assist of 1 w/ GB. Bottom red, applied barrier cream. LR infusing @ 100ml/hr. Continue antibiotics. Tolerating clear liquids. [facility] [employer] * Plan of Care - Deysi Boyd RN - 07/16/2023 6:30 PM CST hift: [id number] Cognition/Mentation/Neuro: Aox4, forgetful at times. Calm and cooperative. VS: VSS on RA Cardiac: SR, tele discontinued GI/: Continued to have multiple incontinent loose stools this shift. Continent in urinal. Pulmonary: LS diminished Pain: Denies Drains/Lines: LR 100/hr to R hand PIV Skin: scattered bruising, reddened groin- barrier cream applied Activity: Ax1-2 Diet: Clear liquid Discharge: Pending [facility] [employer] * Utilization Review - Michael Middleton DO - 07/16/2023 1:01 PM [employer] Admission Status; Secondary Review Determination Admission Date: 07/15/2023 11:33 PM Under the authority of the Utilization Management Committee, the utilization review process indicated a secondary review on the above patient. The review outcome is based on review of the medical records, discussions with staff, and applying clinical experience noted on the date of the review. (x) Inpatient Status Appropriate - This patient's medical care is consistent with medical management for inpatient care and reasonable inpatient medical practice. () Observation Status Appropriate - This patient does not meet hospital inpatient criteria and is placed in observation status. If this patient's primary payer is Medicare and was admitted as an inpatient, Condition Code 44 should be used and patient status changed to observation. () Admission Status NOT Appropriate - This patient's medical care is not consistent with medical management for Inpatient or Observation Status. RATIONALE FOR DETERMINATION Matthew Wu is a 78 year old male with history of hypertension, CAD s/p CABG, current smoker c/bCOPD. He presented to outside hospital with weakness and falls. Developed severe diarrhea, nausea, and vomiting. Found to have C. difficile colitis. Requiring treatment with oral vancomycin and IV met ronidazole. Also on continuous IV fluids. Expected to require a prolonged hospital stay. Has been seen consultation by infectious disease specialist. Due to this patient's advanced age, complex past medical history, acute C. difficile colitis, need for vancomycin and IV metronidazole, need for continuous IV fluids, and expectation of a prolonged hospital stay, it is appropriate to have him admitted to the hospital as an inpatient. The severity of illness, intensity of service provided, expected LOS and risk for adverse outcome make the care complex, high risk and appropriate for hospital admission. The information on this document is developed by the utilization review team in order for the business office to ensure compliance. This only denotes the appropriateness of proper admission status and does not reflect the quality of care rendered. The definitions of Inpatient Status and Observation Status used in making the determination above are those provided in the CMS Coverage Manual, Chapter 1 and Chapter 6, section 70.4. Sincerely, Michael Middleton D.O. Utilization Review/ Case Management [facility]. [facility] [employer] * Pharmacy-Admission Medication History - Diana Loya [facility] - 07/16/2023 12:14 PM CST Pharmacist Admission Medication History Admission medication history is complete. The information provided in this note is only as accurateas the sources available at the time of the update. Information Source(s): Patient and CareEverywhere/SureScripts via in-person Pertinent Information: Pt recently completed outpatient RXs for Cipro BID x 10 days and Metronidazole BID x 10 days Changes made to [employer] DEVELOPER medication list: Added: Vit C, Vit D, Nicotine patch PRN and Latanoprost ophth Deleted: Percocet PRN Changed: Alprazolam dose to 0.5 mg BID prn, Changed Aspirin to not taking as pt states he was told to hold it - he last took 1-2 months ago per pt Medication Affordability: did not ask Allergies reviewed with patient and updates made in EHR: Done by recruiter coordinator History Completed By: Diana Loya RPH 07/16/2023 12:14 PM [employer] DEVELOPER Med List Medication Sig Last Dose acetaminophen (TYLENOL) 325 MG tablet Take 2 tablets (650 mg) by mouth every 6 hours as needed for mild pain Maximum of 4,000 mg of acetaminophen in any 24 hour period. PRN ALPRAZolam (XANAX) 0.5 MG tablet Take 0.5 mg by mouth 2 times daily as needed for anxiety PRN Ascorbic Acid (VITAMIN C) 500 MG CAPS Take 500 mg by mouth every other day ergocalciferol (VITAMIN D2) 400 units (10 mcg) TABS tablet Take 400 Units by mouth daily latanoprost (XALATAN) 0.005 % ophthalmic solution Place 1 drop into both eyes every evening lisinopril (ZESTRIL) 20 MG tablet Take 20 [...] 5 minutes after 1st dose call 911. PRN at never used polyethylene glycol (MIRALAX) 17 GM/Dose powder Take 17 g by mouth daily as needed for constipationPRN simvastatin (ZOCOR) 20 MG tablet Take 20 mg by mouth At Bedtime [facility] [employer] * Plan of Care - Marcus Harvey RN - 07/16/2023 6:55 AM CST Goal Outcome Evaluation: 23:35: Received patient from [facility] as Direct admission. Orientations:Alert and oriented x 4 Vitals/Pain: Vital signs stable except for soft BP,Oxymask at 3 LPM.Denies pain. Tele: NSR Diet: NPO Except meds Lungs: Clear with wheezing Lines/Drains: R/ L PIV inserted from [facility],Infusing with LR x 100 ml/hr.Intermittent antibiotic. Skin/Wounds: WNL GI/: With BM on this shift,loose watery.Voiding freely. Labs: Abnormal/Trends, Electrolyte Replacement- Routine Ambulation/Assist: Assist x 2,GB,Walker. Pivot to Bedside commode. Sleep Quality:Fair Plan: Continue plan of care. [facility] [employer] documented in this encounter Plan of Treatment Not on file documented as of this encounter Procedures Procedure Name Priority Date/Time Associated Diagnosis Comments MAGNESIUM Routine 07/19/2023 6:13 AM [employer] [employer] BASIC METABOLIC PANEL Routine 07/19/2023 6:13 AM [facility] [employer] CBC WITH PLATELETS Routine 07/19/2023 6: 13 AM [facility] [employer] BASIC METABOLIC PANEL Timed 07/18/2023 2:30 PM [employer] CBC WITH PLATELETS Timed 07/18/2023 2: 30 PM [employer] [employer] POTASSIUM Timed 07/18/2023 5:52 AM [facility] [employer] POTASSIUM Timed 07/18/2023 12:57 AM [employer] POTASSIUM Timed 07/17/2023 6:58 PM [employer] [employer] MAGNESIUM Add-On 07/17/2023 5:57 AM [employer] BASIC METABOLIC PANEL Routine 07/17/2023 5:57 AM [employer] CBC WITH PLATELETS Routine 07/17/2023 5: 57 AM [employer] [employer] LACTIC ACID WHOLE BLOOD Routine 07/16/2023 5:42 AM [employer] [employer] COMPREHENSIVE METABOLIC PANEL Routine 07/16/2023 5:42 AM [employer] CBC WITH PLATELETS Routine 07/16/2023 5: 42 AM [employer] [employer] C. DIFFICILE ANTIGEN AND TOXINS A/B BY ENZYME IMMUNOASSAY Routine 07/16/2023 1:57 AM [employer] [employer] C. DIFFICILE TOXIN B PCR WITH REFLEX TO C. DIFFICILE ANTIGEN AND TOXINS A/B EIA Routine 07/16/2023 1:57 AM [employer] [employer] LACTIC ACID WHOLE BLOOD STAT 07/16/2023 12:42 AM [employer] BASIC METABOLIC PANEL STAT 07/16/2023 12:42 AM [employer] CBC WITH PLATELETS STAT 07/16/2023 12 :42 AM [employer] documented in this encounter Results * Magnesium (07/19/2023 6:13 AM [employer]) Magnesium 1.7 1.7 - 2.3 mg/dL 07/19/2023 7:32 AM [facility] [employer] LABORATORY Blood BLOOD SPECIMEN / Unknown Venipuncture / Unknown 07/19/2023 6:13 AM [employer] [employer] 07/19/2023 7:17 AM [employer] [employer] Wiliam Henley MD LAB - BLOOD OR DERABLES LABORATORY [facility] [address], [address] [place] [address], [facility] [phone] * (ABNORMAL) Basic metabolic panel (07/19/2023 6:13 AM [employer]) Sodium 140 135 - 145 mmol/L 07/19/2023 7:32 AM [facility]OR[facility]ORY Comment:Reference intervals for this test were updated on 04/20/2023 to more accurately reflect our healthy population. There may be differences in the flagging of prior results with similar values performed with this method. Interpretation of those prior results can be made in the context of the updated reference intervals. Potassium 3.3(L) 3.4 - 5.3 mmol/L 07/19/2023 7:32 AM [facility] Chloride 108(H) 98 - 107 mmol/L 07/19/2023 7:32 AM [facility] Carbon Dioxide (CO2) 23 22 - 29 mmol/L 07/19/2023 7:32 AM [facility] LABORATORY Anion Gap 9 7 - 15 mmol/L 07/19/2023 7:32 AM [facility] Urea Nitrogen 7.5(L) 8.0 - 23.0 mg/dL 07/19/2023 7:32 AM [facility] Creatinine 0.69 0.67 - 1.17 mg/dL 07/19/2023 7:32 AM [facility] GFR Estimate >90 >60 mL/min/1. 73m2 07/19/2023 7:32 AM [facility] Calcium 8.5(L) 8.8 - 10.2 mg/dL 07/19/2023 7:32 AM [facility] Glucose 89 70 - 99 mg/dL 07/19/2023 7:32 AM [facility] Blood BLOOD SPECIMEN / Unknown Venipuncture / Unknown 07/19/2023 6:13 AM [employer] 07/19/2023 7:17 AM [facility] Wiliam Henley MD LAB - BLOOD OR DERABLES LABORATORY [facility] [address], [address] [place] [address], [facility] [phone] * (ABNORMAL) CBC with platelets (07/19/2023 6:13 AM [facility]) [facility] WBC Count 7.4 4.0 - 11.0 10e3/uL 07/19/2023 6:41 AM [facility] RBC Count 3.71(L) 4.40 - 5.90 10e6/uL 07/19/2023 6:41 AM [facility] Hemoglobin 11.1(L) 13.3 - 17.7 g/dL 07/19/2023 6:41 AM [facility] Hematocrit 33.9(L) 40.0 - 53.0 % 07/19/2023 6:41 AM [facility] MCV 91 78 - 100 fL 07/19/2023 6:41 AM [facility] MCH 29.9 26.5 - 33.0 pg 07/19/2023 6:41 AM [facility] MCHC 32.7 31.5 - 36.5 g/dL 07/19/2023 6:41 AM [facility] RDW 13.6 10.0 - 15.0 % 07/19/2023 6:41 AM [facility] Platelet Count 256 150 - 450 10e3/uL 07/19/2023 6:41 AM [facility] Blood BLOOD SPECIMEN / Unknown Venipuncture / Unknown 07/19/2023 6:13 AM [employer] 07/19/2023 6:40 AM [employer] Wiliam Henley MD LAB - BLOOD OR DERABLES LABORATORY [facility] [address], [address] [place] [address], [facility] [phone] * (ABNORMAL) CBC with platelets (07/18/2023 2:30 PM [employer]) [facility] Signature WBC Count 10.8 4.0 - 11.0 10e3/uL 07/18/2023 2:35 PM [facility] RBC Count 4.06(L) 4.40 - 5.90 10e6/uL 07/18/2023 2:35 PM [facility] Hemoglobin 12.3(L) 13.3 - 17.7 g/dL 07/18/2023 2:35 PM [facility] Hematocrit 36.8(L) 40.0 - 53.0 % 07/18/2023 2:35 PM [facility] MCV 91 78 - 100 fL 07/18/2023 2:35 PM [facility] MCH 30.3 26.5 - 33.0 pg 07/18/2023 2:35 PM [facility] MCHC 33.4 31.5 - 36.5 g/dL 07/18/2023 2:35 PM [facility] RDW 13.9 10.0 - 15.0 % 07/18/2023 2:35 PM [facility] Platelet Count 276 150 - 450 10e3/uL 07/18/2023 2:35 PM [facility] Blood BLOOD SPECIMEN / Unknown Venipuncture / Unknown 07/18/2023 2:30 PM [employer] 07/18/2023 2:33 PM [employer] Wiliam Henley MD LAB - BLOOD OR DERABLES LABORATORY [facility] [address], [address] [place] [address], [facility] [phone] * (ABNORMAL) Basic metabolic panel (07/18/2023 2:30 PM [employer]) [facility] Sodium 140 135 - 145 mmol/L 07/18/2023 2:58 PM [facility] Comment:Reference intervals for this test were updated on 04/20/2023 to more accurately reflect our healthy population. There may be differences in the flagging of prior results with similar values performed with this method. Interpretation of those prior results can be made in the context of the updated reference intervals. Potassium 3.8 3.4 - 5.3 mmol/L 07/18/2023 2:58 PM [facility] Chloride 107 98 - 107 mmol/L 07/18/2023 2:58 PM [facility] Carbon Dioxide (CO2) 22 22 - 29 mmol/L 07/18/2023 2:58 PM [facility] Anion Gap 11 7 - 15 mmol/L 07/18/2023 2:58 PM [facility] Urea Nitrogen 11.5 8.0 - 23.0 mg/dL 07/18/2023 2:58 PM [facility] Creatinine 0.65(L) 0.67 - 1.17 mg/dL 07/18/2023 2:58 PM [facility] GFR Estimate >90 >60 mL/min/1. 73m2 07/18/2023 2:58 PM [facility] Calcium 8.7(L) 8.8 - 10.2 mg/dL 07/18/2023 2:58 PM [facility] Glucose 157(H) 70 - 99 mg/dL 07/18/2023 2:58 PM [facility] Blood STRUCTURE OF RIGHT UPPER LIMB / Unknown Venipuncture / Unknown 07/18/2023 2:30 PM [employer] 07/18/2023 2:33 PM [employer] Wiliam Henley MD LAB - BLOOD OR DERABLES LABORATORY [facility] [address], [address] [place] [address], [facility] [phone] * (ABNORMAL) Potassium (07/18/2023 5:52 AM [employer]) Potassium 3.1(L) 3.4 - 5.3 mmol/L 07/18/2023 6:27 AM [employer] LABORATORY Blood STRUCTURE OF RIGHT UPPER LIMB / Unknown Venipuncture / Unknown 07/18/2023 5:52 AM [employer] 07/18/2023 6:07 AM [employer] Wiliam Henley MD LAB - BLOOD OR DERABLES Performing Organization Address City/[facility]/ZIP Co de Phone Number LABORATORY [facility] [address], [place] [address] [address], [facility] [phone] * (ABNORMAL) Potassium (07/18/2023 12:57 AM [employer]) Potassium 3.1(L) 3.4 - 5.3 mmol/L 07/18/2023 1:22 AM [employer] LABORATORY Blood STRUCTURE OF RIGHT UPPER LIMB / Unknown Venipuncture / Unknown 07/18/2023 12:57 AM [employer] 07/18/2023 1:00 AM [employer] Wiliam Henley MD LAB - BLOOD OR DERABLES LABORATORY [facility] [address], [address] [place] [address], [facility] [phone] * Potassium (07/17/2023 6:58 PM [employer]) Pathologist [facility] Potassium 3.4 3.4 - 5.3 mmol/L 07/17/2023 7:38 PM [facility] Blood STRUCTURE OF LEFT UPPER LIMB / Unknown Venipuncture / Unknown 07/17/2023 6:58 PM [employer] 07/17/2023 7:18 PM [employer] Wiliam Henley MD LAB - BLOOD OR DERABLES LABORATORY [facility] [address], [address] [place] [address], [facility] [phone] * Magnesium (07/17/2023 5:57 AM [employer]) [facility] Magnesium 1.8 1.7 - 2.3 mg/dL 07/17/2023 3:03 PM [facility] Blood STRUCTURE OF LEFT UPPER LIMB / Unknown Venipuncture / Unknown 07/17/2023 5:57 AM [employer] 07/17/2023 6:03 AM [employer] Wiliam Henley MD LAB - BLOOD OR DERABLES LABORATORY [facility] [address], [address] [place] [address], [facility] [phone] * (ABNORMAL) Basic metabolic panel (07/17/2023 5:57 AM [employer]) [facility] Sodium 137 135 - 145 mmol/L 07/17/2023 6:27 AM [facility] Comment:Reference intervals for this test were updated on 04/20/2023 to more accurately reflect our healthy population. There may be differences in the flagging of prior results with similar values performed with this method. Interpretation of those prior results can be made in the context of the updated reference intervals. Potassium 3.0(L) 3.4 - 5.3 mmol/L 07/17/2023 6:27 AM [facility] Chloride 103 98 - 107 mmol/L 07/17/2023 6:27 AM [facility] Carbon Dioxide (CO2) 25 22 - 29 mmol/L 07/17/2023 6:27 AM [facility] Anion Gap 9 7 - 15 mmol/L 07/17/2023 6:27 AM [facility] Urea Nitrogen 18.5 8.0 - 23.0 mg/dL 07/17/2023 6:27 AM [facility] Creatinine 0.72 0.67 - 1.17 mg/dL 07/17/2023 6:27 AM [facility] GFR Estimate >90 >60 mL/min/1. 73m2 07/17/2023 6:27 AM [facility] Calcium 8.7(L) 8.8 - 10.2 mg/dL 07/17/2023 6:27 AM [facility] Glucose 97 70 - 99 mg/dL 07/17/2023 6:27 AM [facility] Blood STRUCTURE OF LEFT UPPER LIMB / Unknown Venipuncture / Unknown 07/17/2023 5:57 AM [employer] 07/17/2023 6:03 AM [facility] Wiliam Henley MD LAB - BLOOD OR DERABLES LABORATORY [facility] [address], [address] [place] [address], [facility] [phone] * (ABNORMAL) CBC with platelets (07/17/2023 5:57 AM [facility]) WBC Count 15.8(H) 4.0 - 11.0 10e3/uL 07/17/2023 6:06 AM [facility] RBC Count 3.83(L) 4.40 - 5.90 10e6/uL 07/17/2023 6:06 AM [facility] Hemoglobin 11.8(L) 13.3 - 17.7 g/dL 07/17/2023 6:06 AM [facility] Hematocrit 35.1(L) 40.0 - 53.0 % 07/17/2023 6:06 AM [facility] MCV 92 78 - 100 fL 07/17/2023 6:06 AM [facility] MCH 30.8 26.5 - 33.0 pg 07/17/2023 6:06 AM [facility] MCHC 33.6 31.5 - 36.5 g/dL 07/17/2023 6:06 AM [facility] RDW 14.1 10.0 - 15.0 % 07/17/2023 6:06 AM [facility] Platelet Count 254 150 - 450 10e3/uL 07/17/2023 6:06 AM [facility] Blood STRUCTURE OF LEFT UPPER LIMB / Unknown Venipuncture / Unknown 07/17/2023 5:57 AM [employer] 07/17/2023 6:03 AM [employer] Wiliam Henley MD LAB - BLOOD OR DERABLES [facility] Lab [address], [address] [place] [address], [facility] [phone] * Lactic acid whole blood (07/16/2023 5:42 AM [employer]) Lactic Acid 1.2 0.7 - 2.0 mmol/L 07/16/2023 6:02 AM [facility] Blood STRUCTURE OF RIGHT HAND / Unknown Venipuncture / Unknown 07/16/2023 5:42 AM [employer] 07/16/2023 5:51 AM [employer] Gene Nielsen MD LAB - BLOOD ORDERAB LES [facility] Lab [address], [address] [place] [address], [facility] [phone] * (ABNORMAL) CBC with platelets (07/16/2023 5:42 AM [employer]) WBC Count 21.3(H) 4.0 - 11.0 10e3/uL 07/16/2023 5:53 AM [facility] RBC Count 3.75(L) 4.40 - 5.90 10e6/uL 07/16/2023 5:53 AM [facility] Hemoglobin 11.7(L) 13.3 - 17.7 g/dL 07/16/2023 5:53 AM [facility] Hematocrit 34.7(L) 40.0 - 53.0 % 07/16/2023 5:53 AM [facility] MCV 93 78 - 100 fL 07/16/2023 5:53 AM [facility] MCH 31.2 26.5 - 33.0 pg 07/16/2023 5:53 AM [facility] MCHC 33.7 31.5 - 36.5 g/dL 07/16/2023 5:53 AM [facility] RDW 14.6 10.0 - 15.0 % 07/16/2023 5:53 AM [facility] Platelet Count 271 150 - 450 10e3/uL 07/16/2023 5:53 AM [facility] Blood STRUCTURE OF RIGHT HAND / Unknown Venipuncture / Unknown 07/16/2023 5:42 AM [employer] 07/16/2023 5:50 AM [facility] Gene Nielsen MD LAB - BLOOD ORDERAB LES LABORATORY [facility] [address], [address] [place] [address], [facility] [phone] * (ABNORMAL) Comprehensive metabolic panel (07/16/2023 5:42 AM [facility]) [facility] Sodium 137 135 - 145 mmol/L 07/16/2023 6:11 AM [facility] Comment:Reference intervals for this test were updated on 04/20/2023 to more accurately reflect our healthy population. There may be differences in the flagging of prior results with similar values performed with this method. Interpretation of those prior results can be made in the context of the updated reference intervals. Potassium 3.5 3.4 - 5.3 mmol/L 07/16/2023 6:11 AM [facility] Carbon Dioxide (CO2) 21(L) 22 - 29 mmol/L 07/16/2023 6:11 AM [facility] Anion Gap 11 7 - 15 mmol/L 07/16/2023 6:11 AM [facility] Urea Nitrogen 19.6 8.0 - 23.0 mg/dL 07/16/2023 6:11 AM [facility] Creatinine 0.81 0.67 - 1.17 mg/dL 07/16/2023 6:11 AM [facility] GFR Estimate 90 >60 mL/min/1. 73m2 07/16/2023 6:11 AM [facility] Calcium 8.3(L) 8.8 - 10.2 mg/dL 07/16/2023 6:11 AM [facility] Chloride 105 98 - 107 mmol/L 07/16/2023 6:11 AM [facility] Glucose 109(H) 70 - 99 mg/dL 07/16/2023 6:11 AM [facility] Alkaline Phosphatase 68 40 - 150 U/L 07/16/2023 6:11 AM [facility] Comment:Reference intervals for this test were updated on 06/08/2023 to more accurately reflect our healthy population. There may be differences in the flagging of prior results with similar values performed with this method. Interpretation of those prior results can be made in the context of the updated reference intervals. AST 25 0 - 45 U/L 07/16/2023 6:11 AM [facility] Comment:Reference intervals for this test were updated on 01/04/2023 to more accurately reflect our healthy population. There may be differences in the flagging of prior results with similar values performed with this method. Interpretation of those prior results can be made in the context of the updated reference intervals. ALT 12 0 - 70 U/L 07/16/2023 6:11 AM [facility] Comment:Reference intervals for this test were updated on 01/04/2023 to more accurately reflect our healthy population. There may be differences in the flagging of prior results with similar values performed with this method. Interpretation of those prior results can be made in the context of the updated reference intervals. Protein Total 5.9(L) 6.4 - 8.3 g/dL 07/16/2023 6:11 AM [facility] Albumin 3.0(L) 3.5 - 5.2 g/dL 07/16/2023 6:11 AM [facility] Bilirubin Total 0.4 <=1.2 mg/dL 07/16/2023 6:11 AM [facility] Blood STRUCTURE OF RIGHT HAND / Unknown Venipuncture / Unknown 07/16/2023 5:42 AM [employer] 07/16/2023 5:50 AM [employer] Gene Nielsen MD LAB - BLOOD ORDERAB LES LABORATORY [facility] [address], [address] [place] [address], [place] [phone] * (ABNORMAL) C. difficile Antigen and Toxins A/B by Enzyme Immunoassay (07/16/2023 1:57 AM [employer]) C. difficile GDH Antigen Positive(A ) Negative STEPHEN 07/16/2023 6:10 AM [employer] [facility] C. difficile Toxin Positive(A ) Negative STEPHEN 07/16/2023 6:10 AM [employer] [facility] Stool RECTAL CONTENTS / Unknown Non-blood Collection / Unknown 07/16/2023 1:57 AM [employer] 07/16/2023 2:13 AM [employer] Narrative [facility] - 07/16/2023 6:10 AM [employer] C. difficile GDH antigen and C. difficile toxin were detected by enzyme immunoassay. Results must be interpreted based on clinical findings and are supportive of C. difficile infection. Gene Nielsen MD LAB - MICRO GENERAL ORDERABLES [facility] Inf. Diseases Diag. Lab [address], [address] [place] [address], [place] [phone] * (ABNORMAL) C. difficile Toxin B PCR with reflex to C. difficile Antigen and Toxins A/B EIA (07/16/2023 1:57 AM [employer]) C Difficile Toxin B by PCR Positive( A) Negative 07/16/2023 5:19 AM [employer] [facility] Comment: Detection of C. [...] CONTENTS / Unknown Non-blood Collection / Unknown 07/16/2023 1:57 AM [employer] 07/16/2023 2:13 AM [employer] Narrative [facility] - 07/16/2023 5:19 AM [employer] Xpert C. difficile Assay, performed on the [employer], is a qualitative in vitro [...] an aid in the diagnosis of CDI. Gene Nielsen MD LAB - MICRO GENERAL ORDERABLES [facility] Inf. Diseases Diag. Lab [address], [address] [place] [address], [facility] [phone] * (ABNORMAL) Basic metabolic panel (07/16/2023 12:42 AM [employer]) [facility] Sodium 138 135 - 145 mmol/L 07/16/2023 1:08 AM [facility] Comment:Reference intervals for this test were updated on 04/20/2023 to more accurately reflect our healthy population. There may be differences in the flagging of prior results with similar values performed with this method. Interpretation of those prior results can be made in the context of the updated reference intervals. Potassium 3.7 3.4 - 5.3 mmol/L 07/16/2023 1:08 AM [facility] Chloride 105 98 - 107 mmol/L 07/16/2023 1:08 AM [facility] Carbon Dioxide (CO2) 22 22 - 29 mmol/L 07/16/2023 1:08 AM [facility] Anion Gap 11 7 - 15 mmol/L 07/16/2023 1:08 AM [facility] Urea Nitrogen 18.3 8.0 - 23.0 mg/dL 07/16/2023 1:08 AM [facility] Creatinine 0.88 0.67 - 1.17 mg/dL 07/16/2023 1:08 AM [facility] GFR Estimate 87 >60 mL/min/1. 73m2 07/16/2023 1:08 AM [facility] Calcium 8.3(L) 8.8 - 10.2 mg/dL 07/16/2023 1:08 AM [facility] Glucose 106(H) 70 - 99 mg/dL 07/16/2023 1:08 AM [facility] Blood STRUCTURE OF RIGHT HAND / Unknown Venipuncture / Unknown 07/16/2023 12:42 AM [employer] 07/16/2023 12:48 AM [employer] Gene Nielsen MD LAB - BLOOD ORDERAB LES [facility] Lab [address], [address] [address], [facility] [phone] * Lactic acid whole blood (07/16/2023 12:42 AM [employer]) Lactic Acid 1.1 0.7 - 2.0 mmol/L 07/16/2023 12:50 AM [facility] Blood STRUCTURE OF RIGHT HAND / Unknown Venipuncture / Unknown 07/16/2023 12:42 AM [employer] 07/16/2023 12:48 AM [employer] Gene Nielsen MD LAB - BLOOD ORDERAB LES [facility] Lab [address], [address] [place] [address], [facility] [phone] * (ABNORMAL) CBC with platelets (07/16/2023 12:42 AM [employer]) WBC Count 26.3(H) 4.0 - 11.0 10e3/uL 07/16/2023 12:51 AM [facility] RBC Count 3.96(L) 4.40 - 5.90 10e6/uL 07/16/2023 12:51 AM [facility] Hemoglobin 12.2(L) 13.3 - 17.7 g/dL 07/16/2023 12:51 AM [facility] Hematocrit 36.7(L) 40.0 - 53.0 % 07/16/2023 12:51 AM [facility] MCV 93 78 - 100 fL 07/16/2023 12:51 AM [facility] MCH 30.8 26.5 - 33.0 pg 07/16/2023 12:51 AM [facility] MCHC 33.2 31.5 - 36.5 g/dL 07/16/2023 12:51 AM [facility] RDW 14.5 10.0 - 15.0 % 07/16/2023 12:51 AM [facility] Platelet Count 268 150 - 450 10e3/uL 07/16/2023 12:51 AM [facility] Blood STRUCTURE OF RIGHT HAND / Unknown Venipuncture / Unknown 07/16/2023 12:42 AM [employer] 07/16/2023 12:48 AM [employer] Gene Nielsen MD LAB - BLOOD ORDERAB LES [facility] Organization Address City/State/[facility] Co de Phone Number LABORATORY [facility] [address], [address] [place] [address], [facility] [phone] documented in this encounter Visit Diagnoses Diagnosis Clostridioides difficile infection- Primary Clostridioides difficile infection documented in this encounter Admitting Diagnoses Diagnosis Clostridioides difficile infection documented in this encounter Administered Medications Inactive Administered Medications - up to 3 most recent administrations Medication Order MAR Action Action Date Dose Rate Site acetaminophen (TYLENOL) Suppository 650 mg 650 mg, Rectal, EVERY 4 HOURS PRN, mild pain, other, and adjunct with moderate or severe pain or per patient request, Starting on Wed07/16/23 at 0018, Alternate with ibuprofen if ordered. Maximum acetaminophen dose from all sources = 75 mg/kg/day not to exceed 4 grams/day. acetaminophen (TYLENOL) tablet 650 mg 650 mg, Oral, EVERY 4 HOURS PRN, mild pain, other, and adjunct with moderate or severe pain or per patient request, Starting on Wed07/16/23 at 0018, Alternate with ibuprofen if ordered. Maximum acetaminophen dose from all sources = 75 mg/kg/day not to exceed 4 grams/day. ipratropium - albuterol 0.5 mg/2.5 mg/3 mL (DUONEB) neb solution 3 mL 3 mL, Nebulization, EVERY 4 HOURS PRN, wheezing, Starting on Wed07/16/23 at 0831 lactated ringers infusion at 100 mL/hr, Intravenous, CONTINUOUS, Starting on Wed07/16/23 at 0030, Until Wed07/19/23 at 1554 Rate/Dose Verify 07/19/2023 8:33 AM [employer] 100 mL/hr $New Bag 07/19/2023 3:15 AM [employer] 100 mL/hr $New Bag 07/18/2023 2:22 PM [employer] 100 mL/hr lactobacillus rhamnosus (GG) (CULTURELL) capsule 1 capsule 1 capsule, Oral, 3 TIMES DAILY BEFORE MEALS, First dose on Wed07/16/23 at 0730, Administer at least 2 hours before or after oral antibiotics. Capsules may be opened. $Given 07/19/2023 11:52 AM [employer] 1 capsule $Given 07/19/2023 6:49 AM [employer] 1 capsule $Given 07/18/2023 5:22 PM [employer] 1 capsule latanoprost (XALATAN) 0.005 % ophthalmic solution 1 drop 1 drop, Both Eyes, EVERY EVENING, First dose on Wed07/16/23 at 2000 $Given 07/18/2023 9:03 PM [employer] 1 drop $Given 07/17/2023 9:15 PM [employer] 1 drop $Given 07/16/2023 9:37 PM [employer] 1 drop lisinopril (ZESTRIL) tablet 20 mg 20 mg, Oral, DAILY, First dose on Wed07/17/23 at 1000, Hold if SBP < 100 mmHg. $Given 07/19/2023 8:35 AM [employer] 20 mg $Given 07/18/2023 8:38 AM [employer] 20 mg $Given 07/17/2023 10:07 AM [employer] 20 mg metroNIDAZOLE (FLAGYL) infusion 500 mg Routine, 500 mg, Intravenous, EVERY 8 HOURS, First dose on Wed07/16/23 at 0030, Do not refrigerate., Indications: Clostridioides difficile $New Bag 07/19/2023 8:35 AM [employer] 500 mg $New Bag 07/19/2023 12:09 AM [employer] 500 mg 100 mL/hr $New Bag 07/18/2023 5:22 PM [employer] 500 mg nicotine (COMMIT) lozenge 2 mg 2 mg, Buccal, EVERY 1 HOUR PRN, nicotine withdrawal symptoms, Starting on Wed07/16/23 at 0830, Allow lozenge to dissolve completely. Do Not Bite, Chew, or Swallow. nicotine (NICODERM CQ) 21 MG/24HR 24 hr patch 1 patch 1 patch, Transdermal, DAILY, Administer over 24 Hours, First dose on Wed07/16/23 at 0900, Reminder: Remove previous patch before applying new patch. $Patch/Med Applied 07/19/2023 8:34 AM [employer] 1 patch Right Arm $Patch/Med Applied 07/18/2023 8:38 AM [employer] 1 patch Left Shoulder $Patch/Med Applied 07/17/2023 9:38 AM [employer] 1 patch Right Shoulder nicotine Patch in Place First dose on Wed07/16/23 at 0900, Chart every shift, confirming that patch is still in place on patient (no barcode scan needed). See patch order for dose information. ondansetron (ZOFRAN ODT) ODT tab 4 mg 4 mg, Oral, EVERY 6 HOURS PRN, nausea, vomiting, Starting on Wed07/16/23 at 0018, This is Step 1 of nausea and [...] vomiting, Administer over 2-5 Minutes, Starting on Wed07/16/23 at 0018, Give IF patient unable to tolerate oral medication. This is Step 1 of nausea and vomiting management. If nausea not resolved in 15 minutes, go to Step 2 prochlorperazine (COMPAZINE). Irritant. potassium chloride ER (KLOR-CON M) CR tablet 20 mEq 20 mEq, Oral, ONCE, On 07/17/23 at 1130, For 1 dose, Potassium level 2.7 - 3 mmol/L Ordered from the Potassium replacement order set. DO NOT CRUSH, Potassium Replacement: Potassium level 2.7-3 mmol/L, Recheck: Potassium level 4 hours AFTER last oral dose $Given 07/17/2023 11:30 AM [employer] 20 mEq potassium chloride ER (KLOR-CON M) CR tablet 40 mEq 40 mEq, Oral, ONCE, On 07/17/23 at 0930, For 1 dose, Potassium level 2.7 - 3 mmol/L Ordered from the Potassium replacement order set. DO NOT CRUSH, Potassium Replacement: Potassium level 2.7-3 mmol/L, Recheck: Potassium level 4 hours AFTER last oral dose $Given 07/17/2023 9:35 AM [employer] 40 mEq potassium chloride ER (KLOR-CON M) CR tablet 40 mEq 40 mEq, Oral, ONCE, On 07/17/23 at 2000, For 1 dose, Potassium level 3.1 - 3.4 mmol/L Ordered from the Potassium replacement order set. DO NOT CRUSH, Potassium Replacement: Potassium level 3.1-3.4 mmol/L, Recheck: Potassium level 4 hours AFTER last oral dose $Given 07/17/2023 9:13 PM [employer] 40 mEq potassium chloride ER (KLOR-CON M) CR tablet 40 mEq 40 mEq, Oral, ONCE, On 07/18/23 at 0200, For 1 dose, Potassium level 3.1 - 3.4 mmol/L Ordered from the Potassium replacement order set. DO NOT CRUSH, Potassium Replacement: Potassium level 3.1-3.4 mmol/L, Recheck: Potassium level 4 hours AFTER last oral dose $Given 07/18/2023 2:55 AM [employer] 40 mEq potassium chloride ER (KLOR-CON M) CR tablet 40 mEq 40 mEq, Oral, ONCE, On 07/18/23 at 0700, For 1 dose, Potassium level 3.1 - 3.4 mmol/L Ordered from the Potassium replacement order set. DO NOT CRUSH, Potassium Replacement: Potassium level 3.1-3.4 mmol/L, Recheck: Potassium level 4 hours AFTER last oral dose $Given 07/18/2023 8:38 AM [employer] 40 mEq potassium chloride ER (KLOR-CON M) CR tablet 40 mEq 40 mEq, Oral, ONCE, On 07/19/23 at 1130, For 1 dose, DO NOT CRUSH $Given 07/19/2023 11:52 AM [employer] 40 mEq psyllium (METAMUCIL/KONSYL) Packet 1 packet 1 packet, Oral, DAILY, First dose on Wed07/18/23 at 1100, Powder should be diluted with fluid before given. $Given 07/19/2023 8:35 AM [employer] 1 packet $Given 07/18/2023 12:05 PM [employer] 1 packet simvastatin (ZOCOR) tablet 20 mg 20 mg, Oral, AT BEDTIME, First dose on Wed07/16/23 at 2200 $Given 07/18/2023 9:01 PM [employer] 20 mg $Given 07/17/2023 9:13 PM [employer] 20 mg $Given 07/16/2023 9:06 PM [employer] 20 mg sodium chloride (PF) 0.9% PF flush 3 mL 3 mL, Intracatheter, EVERY 8 HOURS, First dose on Wed07/16/23 at 0030, to lock peripheral IV dormant line $Given 07/16/2023 4:24 PM [employer] 3 mLs $Given 07/16/2023 9:20 AM [employer] 3 mLs $Given 07/16/2023 1:03 AM [employer] 3 mLs sodium chloride (PF) 0.9% PF flush 3 mL 3 mL, Intracatheter, EVERY 8 HOURS, First dose on Wed07/16/23 at 0130, to lock peripheral IV dormant line $Given 07/16/2023 1:12 AM [employer] 3 mLs vancomycin (VANCOCIN) capsule 125 mg Routine, 125 mg, Oral, 4 TIMES DAILY, First dose on Wed07/16/23 at 0900, Indications: Clostridioides difficile $Given 07/19/2023 1:12 PM [employer] 125 mg $Given 07/19/2023 8:35 AM [employer] 125 mg $Given 07/18/2023 9:02 PM [employer] 125 mg documented in this encounter Active and Recently Administered Medications Times are shown in [employer]. Scheduled Medication Order 07/17/2023 07/18/2023 07/19/2023 lactobacillus rhamnosus (GG) (CULTURELL) capsule 1 capsule 1 capsule, Oral, 3 TIMES DAILY BEFORE MEALS, First dose on Wed07/16/23 at 0730, Administer at least 2 hours before or after oral antibiotics. Capsules may be opened. 0636 ($Given - Provider: Kalyn Villalobos RN)1130 ($Given - Provider: Apple Betts RN)1718 ($Given - Provider: Apple Betts RN) 0630 ($Given - Provider: Kalyn Villalobos, MEDHAT)1205 ($Given - Provider: Nakia Lamb, MEDHAT)1722 ($Given - Provider: Nakia Lamb RN) 0649 ($Given - Provider: Kalyn Villalobos RN)1152 ($Given - Provider: Susu Alaniz, MEDHAT) latanoprost (XALATAN) 0.005 % ophthalmic solution 1 drop 1 drop, Both Eyes, EVERY EVENING, First dose on Wed07/16/23 at 2000 2115 ($Given - Provider: Kalyn Villalobos RN) 2103 ($Given - Provider: Kalyn Villalobos RN) lisinopril (ZESTRIL) tablet 20 mg 20 mg, Oral, DAILY, First dose on Wed07/17/23 at 1000, Hold if SBP < 100 mmHg. 1007 ($Given - Provider: Apple Betts RN) 0838 ($Given - Provider: Nakia Lamb, MEDHAT) 0835 ($Given - Provider: Susu Alaniz, MEDHAT) metroNIDAZOLE (FLAGYL) infusion 500 mg Routine, 500 mg, Intravenous, EVERY 8 HOURS, First dose on Wed07/16/23 at 0030, Do not refrigerate., Indications: Clostridioides difficile 0037 ($New Bag - Provider: Kalyn Villalobos RN)0935 ($New Bag - Provider: Apple Betts RN)1543 ($New Bag - Provider: Apple Betts RN) 0042 ($New Bag - Provider: Kalyn Villalobos RN)0839 ($New Bag - Provider: Nakia Lamb, MEDHAT)1722 ($New Bag - Provider: Nakia Lamb, MEDHAT) 0009 ($New Bag - Provider: Kalyn Villalobos RN)0835 ($New Bag - Provider: Susu Alaniz RN) nicotine (NICODERM CQ) 21 MG/24HR 24 hr patch 1 patch 1 patch, Transdermal, DAILY, Administer over 24 Hours, First dose on Wed07/16/23 at 0900, Reminder: Remove previous patch before applying new patch. 0934 (Patch/Med Removed - Provider: Apple Betts RN)0938 ($Patch/Med Applied - Provider: Apple Betts RN) 0830 (Patch/Med Removed - Provider: Nakia Lamb, RN)0838 ($Patch/Med Applied - Provider: Nakia Lamb RN) 0830 (Patch/Med Removed - Provider: Susu Alaniz, RN)0834 ($Patch/Med Applied - Provider: Susu Alaniz, RN)1353 (Due: Patch/Med Removed - Provider: Orders Generic Provider - Comment: Time automatically adjusted from order being discontinued) nicotine Patch in Place First dose on Wed07/16/23 at 0900, Chart every shift, confirming that patch is still in place on patient (no barcode scan needed). See patch order for dose information. 0044 (Patch in Place - Provider: Kalyn Villalobos RN)0944 (Patch in Place - Provider: Apple Betts RN)1720 (Patch in Place - Provider: Apple Betts RN) 0020 (Patch in Place - Provider: Kalyn Villalobos RN)0840 (Patch in Place - Provider: Nakia Lamb, MEDHAT)1705 (Patch in Place - Provider: Nakia Lamb, MEDHAT) 0017 (Patch in Place - Provider: Kalyn Villalobos, MEDHAT)0956 (Patch in Place - Provider: Susu Alaniz, MEDHAT) potassium chloride ER (KLOR-CON M) CR tablet 20 mEq (COMPLETED) 20 mEq, Oral, ONCE, On 07/17/23 at 1130, For 1 dose, Potassium level 2.7 - 3 mmol/L Ordered from the Potassium replacement order set. DO NOT CRUSH, Potassium Replacement: Potassium level 2.7-3 mmol/L, Recheck: Potassium level 4 hours AFTER last oral dose 1130 ($Given - Provider: Apple Betts RN) potassium chloride ER (KLOR-CON M) CR tablet 40 mEq (COMPLETED) 40 mEq, Oral, ONCE, On 07/17/23 at 0930, For 1 dose, Potassium level 2.7 - 3 mmol/L Ordered from the Potassium replacement order set. DO NOT CRUSH, Potassium Replacement: Potassium level 2.7-3 mmol/L, Recheck: Potassium level 4 hours AFTER last oral dose 0935 ($Given - Provider: Apple Betts RN) potassium chloride ER (KLOR-CON M) CR tablet 40 mEq (COMPLETED) 40 mEq, Oral, ONCE, On 07/17/23 at 2000, For 1 dose, Potassium level 3.1 - 3.4 mmol/L Ordered from the Potassium replacement order set. DO NOT CRUSH, Potassium Replacement: Potassium level 3.1-3.4 mmol/L, Recheck: Potassium level 4 hours AFTER last oral dose 2113 ($Given - Provider: Kalyn Villalobos RN) potassium chloride ER (KLOR-CON M) CR tablet 40 mEq (COMPLETED) 40 mEq, Oral, ONCE, On 07/18/23 at 0200, For 1 dose, Potassium level 3.1 - 3.4 mmol/L Ordered from the Potassium replacement order set. DO NOT CRUSH, Potassium Replacement: Potassium level 3.1-3.4 mmol/L, Recheck: Potassium level 4 hours AFTER last oral dose 0255 ($Given - Provider: Kalyn Villalobos RN) potassium chloride ER (KLOR-CON M) CR tablet 40 mEq (COMPLETED) 40 mEq, Oral, ONCE, On 07/18/23 at 0700, For 1 dose, Potassium level 3.1 - 3.4 mmol/L Ordered from the Potassium replacement order set. DO NOT CRUSH, Potassium Replacement: Potassium level 3.1-3.4 mmol/L, Recheck: Potassium level 4 hours AFTER last oral dose 0838 ($Given - Provider: Nakia Lamb RN) potassium chloride ER (KLOR-CON M) CR tablet 40 mEq (COMPLETED) 40 mEq, Oral, ONCE, On 07/19/23 at 1130, For 1 dose, DO NOT CRUSH 1152 ($Given - Provider: Susu Alaniz RN) psyllium (METAMUCIL/KONSYL) Packet 1 packet 1 packet, Oral, DAILY, First dose on 07/18/23 at 1100, Powder should be diluted with fluid before given. 1205 ($Given - Provider: Nakia Lamb RN) 0835 ($Given - Provider: Susu Alaniz RN) simvastatin (ZOCOR) tablet 20 mg 20 mg, Oral, AT BEDTIME, First dose on Wed07/16/23 at 2200 2113 ($Given - Provider: Kalyn Villalobos RN) 2101 ($Given - Provider: Kalyn Villalobos RN) sodium chloride (PF) 0.9% PF flush 3 mL 3 mL, Intracatheter, EVERY 8 HOURS, First dose on Wed07/16/23 at 0030, to lock peripheral IV dormant line 0040 (Not Given - Provider: Kalyn Villalobos RN - Reason: IV Infusing)0938 (Not Given - Provider: Apple Betts RN - Reason: IV Infusing)1542 (Not Given - Provider: Apple Betts RN - Reason: IV Infusing) 0020 (Not Given - Provider: Kalyn Villalobos RN - Reason: IV Infusing)0840 (Not Given - Provider: Nakia Lamb RN - Reason: IV Infusing)1705 (Not Given - Provider: Nakia Lamb RN - Reason: Patient/family refused) 0030 (Not Given - Provider: Kalyn Villalobos RN - Reason: IV Infusing)0835 (Not Given - Provider: Susu Alaniz RN - Reason: IV Infusing) vancomycin (VANCOCIN) capsule 125 mg Routine, 125 mg, Oral, 4 TIMES DAILY, First dose on Wed07/16/23 at 0900, Indications: Clostridioides difficile 0935 ($Given - Provider: Apple Betts RN)1310 ($Given - Provider: Martha Lopez RN)1718 ($Given - Provider: Apple Betts RN)2113 ($Given - Provider: Kalyn Villalobos RN) 0838 ($Given - Provider: Nakia Lamb RN)1205 ($Given - Provider: Nakia Lamb RN)1722 ($Given - Provider: Nakia Lamb RN)2102 ($Given - Provider: Kalyn Villalobos RN) 0835 ($Given - Provider: Susu Alaniz RN)1312 ($Given - Provider: Susu Alaniz RN) Continuous Medication Order 07/17/2023 07/18/2023 07/19/2023 lactated ringers infusion at 100 mL/hr, Intravenous, CONTINUOUS, Starting on Wed07/16/23 at 0030, Until Wed07/19/23 at 1554 0039 ($New Bag - Provider: Kalyn Villalobos, RN)0730 (Rate/Dose Verify - Provider: Apple Betts RN)1311 ($New Bag - Provider: Martha Lopez RN)2120 (Paused - Provider: Kalyn Villalobos, MEDHAT)2145 (Restarted - Provider: Kalyn Villalobos, RN) 0255 ($New Bag - Provider: Kalyn Villalobos, MEDHAT)1422 ($New Bag - Provider: Nakia Lamb, MEDHAT) 0315 ($New Bag - Provider: Kalyn Villalobos, MEDHAT)0833 (Rate/Dose Verify - Provider: Susu Alaniz RN)1319 (Stopped - Provider: Susu Alaniz RN) PRN Medication Order 07/17/2023 07/18/2023 07/19/2023 acetaminophen (TYLENOL) Suppository 650 mg(Linked Group 1) 650 mg, Rectal, EVERY 4 HOURS PRN, mild pain, other, and adjunct with moderate or severe pain or per patient request, Starting on Wed07/16/23 at 0018, Alternate with ibuprofen if ordered. Maximum acetaminophen dose from all sources = 75 mg/kg/day not to exceed 4 grams/day. acetaminophen (TYLENOL) tablet 650 mg(Linked Group 1) 650 mg, Oral, EVERY 4 HOURS PRN, mild pain, other, and adjunct with moderate or severe pain or per patient request, Starting on Wed07/16/23 at 0018, Alternate with ibuprofen if ordered. Maximum acetaminophen dose from all sources = 75 mg/kg/day not to exceed 4 grams/day. ALPRAZolam (XANAX) tablet 0.5 mg 0.5 mg, Oral, 2 TIMES DAILY PRN, anxiety, Starting on Wed07/16/23 at 1636, Avoid taking with grapefruit juice calcium carbonate (TUMS) chewable tablet 1,000 mg 1,000 mg, Oral, 4 TIMES DAILY PRN, heartburn, Starting on Wed07/16/23 at 0016 ipratropium - albuterol 0.5 mg/2.5 mg/3 mL (DUONEB) neb solution 3 mL 3 mL, Nebulization, EVERY 4 HOURS PRN, wheezing, Starting on Wed07/16/23 at 0831 lidocaine (LMX4) cream Topical, EVERY 1 HOUR PRN, pain, with VAD insertion, Starting on Wed07/16/23 at 0016, Apply at least 30 minutes prior to [...] mild pain with VAD insertion, Starting on Wed07/16/23 at 0016, MAX dose 1 mL subcutaneous OR intradermal along the side of the vein in divided doses as needed for VAD insertion. Do NOT give if patient has a history of allergy to any local anesthetic or any luis alfredo product. Do NOT use both lidocaine intradermal/subcutaneous injection and the lidocaine cream on the same site. nicotine (COMMIT) lozenge 2 mg 2 mg, Buccal, EVERY 1 HOUR PRN, smoking cessation, Starting on Wed07/16/23 at 0830, Allow lozenge to dissolve completely. Do Not Bite, Chew, or Swallow. ondansetron (ZOFRAN ODT) ODT tab 4 mg(Linked Group 2) 4 mg, Oral, EVERY 6 HOURS PRN, nausea, vomiting, Starting on Wed07/16/23 at 0018, This is Step 1 of nausea and [...] required. ondansetron (ZOFRAN) injection 4 mg(Linked Group 2) 4 mg, Intravenous, EVERY 6 HOURS PRN, nausea, vomiting, Administer over 2-5 Minutes, Starting on Wed07/16/23 at 0018, Give IF patient unable to tolerate oral medication. This is Step 1 of nausea and vomiting management. If nausea not resolved in 15 minutes, go to Step 2 prochlorperazine (COMPAZINE). Irritant. sodium chloride (PF) 0.9% PF flush 3 mL 3 mL, Intracatheter, EVERY 1 MIN PRN, line flush, other, to ensure patency or to lock dormant line, Starting on Wed07/16/23 at 0016 Linked Groups Order Group 1: acetaminophen (TYLENOL) tablet 650 mgJump to med 650 mg, Oral, EVERY 4 HOURS PRN, mild pain, other, and adjunct with moderate or severe pain or per patient request, Starting on Wed07/16/23 at 0018, Alternate with ibuprofen if ordered. Maximum acetaminophen dose from all sources = 75 mg/kg/day not to exceed 4 grams/day. Or acetaminophen (TYLENOL) Suppository 650 mgJump to med 650 mg, Rectal, EVERY 4 HOURS PRN, mild pain, other, and adjunct with moderate or severe pain or per patient request, Starting on Wed07/16/23 at 0018, Alternate with ibuprofen if ordered. Maximum acetaminophen dose from all sources = 75 mg/kg/day not to exceed 4 grams/day. Group 2: ondansetron (ZOFRAN ODT) ODT tab 4 mgJump to med 4 mg, Oral, EVERY 6 HOURS PRN, nausea, vomiting, Starting on Wed07/16/23 at 0018, This is Step 1 of nausea and [...] vomiting, Administer over 2-5 Minutes, Starting on Wed07/16/23 at 0018, Give IF patient unable to tolerate oral medication. This is Step 1 of nausea and vomiting management. If nausea not resolved in 15 minutes, go to Step 2 prochlorperazine (COMPAZINE). Irritant. documented in this encounter Additional Health Concerns Infection Onset Date Last Indicated Resolved Time Rule Out C-difficile 07/16/2023 07/16/2023 023 5:19 AM [employer] C-difficile 07/16/2023 07/16/2023 08/15/2023 11:3 9 PM [employer] documented as of this encounter Care Teams Wire Fence Builder Relationship Specialty Start Date End Date No Ref-Primary, Physician PCP - General 03/25/23 documented as of this encounter
--- OUTSIDE RECORDS SUMMARY | 2023-08-31 14:37 | XMS_ITS | Clinical Summary ---
Author Name Unknown Organization [facility] [facility] Address [place], [place] [address] Care Team Providers Care Promotions Specialist Name Role Phone Marco A Buckley MD Primary Care Provider [phone] Allergies No known active allergies Medications Medication Sig Dispensed Refills Start Date End Date Status ASPIRIN 325 MG ORAL TAB once a day ? 0 06/25/2004 Active NITROGLYCERIN 0.4 MG SL SUBL as needed ? 0 06/25/2004 Active MULTIVITAMIN ORAL TAB once a day ? 0 06/25/2004 Active ALPRAZolam (XANAX) 0.25 mg tablet 0 10/04/2014 Active lisinopril (PRINIVIL; ZESTRIL) 20 mg tablet Take 20 mg by mouth once daily. 0 07/30/2014 Active simvastatin (ZOCOR) 40 mg tablet Take 20 mg by mouth at bedtime. 0 07/05/2014 Active latanoprost (XALATAN) 0.005 % ophthalmic solution Place 1 Drop into both eyes at bedtime. 2.5 mL 0 10/11/2014 Active Active Problems Problem Noted Date Diagnosed Date Penile pain 10/21/2015 Social History Tobacco Use Types Packs/Day Years Used Date Smoking Tobacco: Every Day Cigarettes Smokeless Tobacco: Never Tobacco Cessation:Ready to Q uit: No; Counseling Given: Yes Alcohol Use Standard Drinks/Week Comments No 0 (1 standard drink = 0.6 oz pur e alcohol) Social Connections Answer Date Recorded Frequency of Communication with Friends and Fami ly Not on file 07/26/2021 Financial Resource Strain Answer Date R ecorded Difficulty of Paying Living Expenses Not on file 07/26/2021 Difficulty of Paying Living Expenses Not on file 07/26/2021 Sex and Gender Information Value Date Recorded Sex Assigned at Not on file Gender Identity Not on file Sexual Orientation Not on file Obstetrics History Last Filed Vital Signs Vital Sign Reading Time Taken Comments Blood Pressure 147/74 07/09/2020 3:17 PM [employer] Pulse 77 07/09/2020 3:17 PM [employer] Temperature 36.3 ??C (97.4 ??F) 10/21/2015 9:36 AM CD T Respiratory Rate - - Oxygen Saturation 100% 07/09/2020 3:17 PM [employer] Inhaled Oxygen Concentration - - Weight 85.4 kg (188 lb 3.2 oz) 07/09/2020 3:17 P M [employer] Height 172.1 cm (5' 7.75) 10/21/2015 9:36 AM CD T Body Mass Index 28.83 10/21/2015 9:36 AM CDT Plan of Treatment Health Maintenance Due Date Last Done Comments Tdap 1955 Depression screening for age 12+ 1956 Hepatitis C screening for ag e 18-79 1962 Tetanus booster 1964 Zoster (shingles) series for age 50+ (1 of 2) 1994 Medicare Wellness for age 65+ 2009 Pneumococcal series for age 65+ (1 of 1 - PCV) 2009 BMI (ht and wt on same day) for age 18+ 10/20/2016 10/21/2015 COVID-19 vaccine series (2022-24 season) 2023 04/20/2022, 01/01/2022, 06/10/2021, Additional history exists Influenza for age 65+ 03/26/2023 Care Teams Promotions Specialist Relationship Specialty Start Date End Date Marco A Buckley MD PCP - General Family Practice 03/18/23
--- OUTSIDE RECORDS SUMMARY | 2023-08-31 14:37 | XMS_ITS | Encounter Summary ---
Author Name Unknown Organization [facility] Address [address] [place] [id number] Care Team Providers Care Consultant Education Name Role Phone No Ref-Primary, Physician Primary Care Provider Reason for Visit * Reason Comments Mass Pelvic mass * Auth/Cert (Routine) Specialty Diagnoses / Procedures Referred By Henry acharya Referred To Contact EMERGENCY MEDICINE Diagnoses Intra-abdominal abscess (H) Intra-abdominal abscess (H) [facility] [address] [place] [address] Referral ID Status Reason Start Date Expiration Date Visits Re quested Visits Authorized [id number] 1 1 Encounter Details Date Type Department Care Team ([facility] Contact Info) Description 03/25/2023 3:29 AM CDT - 03/25/2023 4:00 PM CDT Hospital Encounter [facility] Emergency Department [address] [place] [address] Margarito Ashley MD [address] [place] [address] [id number] Maxwell Miller MD [address] [place], [place] [id number] Intra-abdominal abscess (H) Discharge Disposition: Left Against Medical Advice Social History Tobacco Use Types Packs/Day Years [...] suspected to have Coronavirus/COVID-19? No / Unsure 03/25/2023 3:34 AM CDT documented as of this encounter Last Filed Vital Signs Vital Sign Reading Time Taken Comments Blood Pressure 167/75 03/25/2023 7:51 AM CDT Pulse 69 03/25/2023 5:39 AM CDT Temperature 36.8 ??C (98.2 ??F) 03/25/2023 5:39 AM CD T Respiratory Rate 12 03/25/2023 7:51 AM CDT Oxygen Saturation 93% 03/25/2023 5:39 AM CDT Inhaled Oxygen Concentration - - Weight 77.1 kg (170 lb) 03/25/2023 3:32 AM CDT Height 170.2 cm (5' 7) 03/25/2023 3:32 AM CDT Body Mass Index 26.63 03/25/2023 3:32 AM CDT documented in this encounter Discharge Summaries * Demetria Park PA-C - 03/25/2023 4:00 PM CDT [facility] Discharge Summary Colon and Rectal Surgery Elected to Discharge Against Medical Advice Theodore Wu Date of : 1945 Age: [age] year old Date of Admission: 03/25/2023 Date of Discharge:: 03/25/2023 4:00 PM Admitting Physician: Maxwell Miller MD Discharge Physician: Maxwell Miller MD Primary Care Physician: No Ref-Primary, Physician Admission Diagnoses: Intra-abdominal abscess (H) [K65.1] Hypertension CAD s/p prior CABG Current tobacco use COPD Acute on chronic back pain Discharge Diagnosis: Intra-abdominal abscess (H) [K65.1] Hypertension CAD s/p prior CABG Current tobacco use COPD Acute on chronic back pain Consultations: INTERVENTIONAL RADIOLOGY ADULT/PEDS IP CONSULT Imaging Studies: No results found for this or any previous visit. Discharge Medications: Discharge Medication List as of 03/26/2023 12:56 AM CONTINUE these medications which have NOT CHANGED Details ALPRAZolam (XANAX) 0.25 MG tablet Take 0.25 mg by mouth 2 times daily as needed for anxiety, Historical aspirin (ASA) 325 MG EC tablet Take 325 mg by mouth daily, Historical lisinopril (ZESTRIL) 20 MG tablet Take 20 mg by mouth daily, Historical simvastatin (ZOCOR) 20 MG tablet Take 20 mg by mouth At Bedtime, Historical fentaNYL (DURAGESIC) 12 mcg/hr [address] 1 patch onto the skin every 72 hours remove old patch., Historical oxyCODONE-acetaminophen (PERCOCET) 5-325 MG tablet Take 1 tablet by mouth every 6 hours as needed for severe pain, Historical Brief History of Illness: This is a 78 year old male PMH HTN, CAD s/p CABG, current tobacco use, COPD. Presents w/ incidentally found intra-abd abscess on lumbar MRI for acute on chronic back pain work up. Pt reports back pain for several years, however in the last 6 months back pain has significantly increased. Pt reports recently taking tramadol and then becoming constipated. Last BM was yesterday (03/24) evening. Vitalsstable. WBC 14.[address] with deep pelvic posterior abscess 2.2 x 1.9 x 2.1 cm and 5.2 x 4.5 x 4.3 cm. Hospital Course: Pt was treated conservatively with ceftriaxone and flagyl and given bowel rest. Pt did report passing gas and stools while in the ED. IR was consulted but there was no safe percutaneous window for presumed diverticular abscess. Reviewed OSH images at length with radiology and neuro radiology and also discussed at length with the Neurosurgery team. Neurosurgery recommended MRI lumbar spine with and without contrast. However, pt elected to discharge against medical advice prior to full work up and additional treatment despite multiple conversations. Do recommend that patient follows up with CRS clinic as but defer to patient wishes. Day of Discharge Physical Exam: Blood pressure (!) 167/75, pulse 69, temperature 98.2 ??F (36.8 ??C), temperature source Oral, resp. rate 12, height 1.702 m (5' 7), weight 77.1 kg (170 lb), SpO2 93 %. Gen: AAOx3, NAD Pulm: Non-labored breathing Abd: Soft, non-distended, non- tender, no guarding/rebound Ext: Warm and well-perfused Discharge Instructions and Follow-Up: No discharge procedures on file. Patient elected to discharge AMA Condition at discharge: Stable Demetria Park PA-C ..................04/13/2023 9:54 AM Colon and Rectal Surgery Pt was seen and discussed with Dr. Roldan on 03/25/2023 The above plan of care was performed and communicated to me by CRS Staff: Dr. Maxwell Miller I spent 75 minute [id number] or coordinating care of Theodore Wu. Over 50% of our time on the unit was spent counseling the patient and/or coordinating care as documented in the assessment and plan. Associated attestation - Maxwell Miller MD - 04/13/2023 11:26 AM CDT Attestation: I agree, patient left AMA. Maxwell Miller MD Division of Colon and Rectal Surgery [facility] [phone] documented in this encounter Medications at Time of Discharge Medication Sig Dispensed Refills Start Date End Date aspirin (ASA) 325 MG EC tablet Take 325 mg by mouth daily 0 lisinopril (ZESTRIL) 20 MG tablet Take 20 mg by mouth at bedtime 0 nitroGLYcerin (NITROSTAT) 0.[address] 0.4 mg under the tongue every 5 minutes as needed for chest pain 0 08/05/2022 simvastatin (ZOCOR) 20 MG tablet Take 20 mg by mouth At Bedtime 0 ALPRAZolam (XANAX) 0.25 MG tablet Take 0.25 mg by mouth 2 times daily as needed for anxiety 0 07/16/2023 fentaNYL (DURAGESIC) 12 mcg/hr [address] 1 patch onto the skin every 72 hours remove old patch. 0 03/30/2023 oxyCODONE-acetaminophen (PERCOCET) 5-325 MG tablet Take 1 tablet by mouth every 6 hours as needed for severe pain 0 03/30/2023 documented as of this encounter Progress Notes * Anna Dukes RN - 03/25/2023 3:44 PM CDT Patient left AMA, Provider notified and came down to talk with pt and family. Pt signed AMA form * Demetria Park PA-C - 03/25/2023 7:09 AM CDT Colorectal Surgery Progress Note [facility] Subjective: frustrated. Has had a rough 2 weeks. Denies current abdominal pain, N/V. Last BM was small and hard last night around supper time. Vitals: Vitals: 03/25/23 0332 03/25/23 0341 03/25/23 0436 03/25/23 0539 BP: (!) 170/87 (!) 167/78 131/68 (!) 146/69 Pulse: 82 90 67 69 Resp: 18 16 Temp: 98.4 ??F (36.9 ??C) 98.2 ??F (36.8 ??C) TempSrc: Oral Oral SpO2: 92% 94% 93% Weight: 77.1 kg (170 lb) Height: 1.702 m (5' 7) I/O: No intake/output data recorded. Physical Exam: Gen: AAOx3, NAD Pulm: Non-labored breathing Abd: Soft, non-distended, non- tender, no guarding/rebound Ext: Warm and well-perfused BMP Recent Labs Lab 03/25/23 0606 03/25/23 0339 NA 140 142 POTASSIUM 3.4 3.6 CHLORIDE 105 105 CO2 25 25 BUN 12.0 12.4 CR 0.87 0.89 GLC 100* 98 MAG 2.1 -- PHOS 3.7 -- CBC Recent Labs Lab 03/25/23 0606 03/25/23 0339 WBC 14.8* 13.6* HGB 9.9* 10.2* HCT 30.2* 31.2* PLT 510* 572* ASSESSMENT: This is a 78 year old male PMH HTN, CAD s/p CABG, current tobacco use, COPD. Presents w/ incidentally found intra-abd abscess on lumbar MRI for acute on chronic back pain work up. Pt reports back pain for several years, however in the last 6 months back pain has significantly increased.Pt reports recently taking tramadol and then becoming constipated. Last BM was yesterday (03/24) evening. Vitals stable. WBC 14.[address] with deep pelvic posterior abscess 2.2 x 1.9 x 2.1 cm and 5.2 x 4.5 x 4.3 cm. Neuro/Pain: tylenol, lidocaine patch, robaxin CV: hold home aspirin, nitroglycerin prn, lisinopril, simvastatin PULM: encourage IS. GI/FEN: - NPO - IVF - ceftriaxone and flagyl for now - apprec IR consult to review images to see if drain/aspiration/cultures are possible - apprec Neurosurgery/Ortho consult : no acute concerns at this time. Strict in and outs Heme: no acute concerns at this time ID: intra-abd abscess - ceftriaxone and flagyl Endocrine: no acute concerns at this time Activity: as tolerated. Ppx: hold for now Dispo: pending IR & neurosurg/Ortho consult, pending antibiotic plan Demetria Park PA-C ..................03/25/2023 7:09 AM Colon and Rectal Surgery Patient was seen and discussed with Dr. Roldan The above plan of care was performed and communicated to me by Dr. Miller I spent 60 minute [id number] or coordinating care of Theodore Wu. Over 50% of our time on the unit was spent counseling the patient and/or coordinating care as documented in the assessment and plan. Addendum: Requested OSH MRI Lumbar spine to be pushed from [facility]. [phone] radiology and also discussed with neuro radiology. Discussed with neurosurgery - recommend MRI lumbar Spine with and without contrast. As OSH MRI is done without contrast. Discussed with IR - no safe window for drain/aspiration Patient also reported now a small soft BM while in ED this morning. documented in this encounter H&P Notes * Yunior Greenwood MD - 03/25/2023 4:47 AM CDT Images from the original note were not included. [facility] H&P Note - Colorectal Surgery Service Date of Admission: 03/25/2023 Admitting Attending: Dr. Miller Reason for Consult: Pelvic Abscesses Assessment & Plan: Surgery Theodore Wu is a 78 year old male who has medical history of hypertension, CAD s/p CABG, currentsmoker c/b COPD. He presented with intra-abdominal abscess incidentally found on lumbar MRI. Patient was seen in outside hospital, where it was determined that the abscess is not amenable to IR drainage. Due to the deep location and adjacency to the spine, the patient was transferred to [facility] for colorectal surgery evaluation. The patient has had back pain for quite some time and is scheduled for an upcoming procedure, however, two abscesses were incidentally found on MRI and confirmed on CT afterward (2.2 x 1.9 x 2.1cm and 5.2 x 4.5 x 4.3 cm), with the larger abscess quite adjacent to the spine. Other than mild constipation (1bm/d with some straining), he is otherwise asymptomatic. No hx ofdiverticulitis. Last colonoscopy was 8yrs ago and notable for severe diverticular disease involving the sigmoid colon. No hx of abdominal surgery or hx of cancer. Plan: - NPO w/ Meds - IV ABX - IV fluids - Admit to colorectal surgery Recent Labs Lab 03/25/23 0339 WBC 13.6* HGB 10.2* PLT 572* Recent Labs Lab 03/25/23 0339 NA 142 POTASSIUM 3.6 CHLORIDE 105 CO2 25 BUN 12.4 CR 0.89 GLC 98 Drains: None Code Status: Full Code Clinically Significant Risk Factors Present on Admission # Hypoalbuminemia: Lowest albumin = 3.2 g/dL at 03/25/2023 3:39 AM, will monitor as appropriate # Coagulation Defect: INR = 1.19 (Ref range: 0.85 - 1.15) and/or PTT = N/A, will monitor for bleeding # Overweight: Estimated body mass index is 26.63 kg/m?? as calculated from the following: Height as of this encounter: 1.702 m (5' 7). Weight as of this encounter: 77.1 kg (170 lb). The patient's care was discussed with the CR fellow, Dr. Roldan. Yunior Greenwood MD General Surgery Resident [facility] Text page via [facility] Paging/Directory Chief Complaint Pelvis Mass History is obtained from the patient and the patient's chart. History of Present Illness Theodore Wu is a 78 year old male who has medical history of hypertension, CAD, current smoker presenting with intra-abdominal abscess found on lumbar MRI. Patient was seen in outside hospital, apparently the abscess is not amenable to IR drainage. The patient has had back pain for quite some time and is scheduled for an upcoming procedure, this was found on an MRI. Denies fevers, abd pain, nausea, vomiting or change in bowel habits. He has had some urinary frequency but no dysuria. Hx of diverticulosis w/o diverticulitis. Past Medical History No past medical history on file. Past Surgical History No past surgical history on file. Prior to Admission Medications I have reviewed this patient's current medications No current outpatient medications on file prior to encounter. Review of Systems The 10 point Review of Systems is negative other than noted in the HPI or here. Social History I have reviewed this patient's social history and updated it with pertinent information if needed. Family History Allergies No Known Allergies Physical Exam Vitals: Most Recent Ranges (Last 24 hours) Temp: 98.4 ??F (36.9 ??C) Pulse: 90 BP: (!) 167/78 Resp: 18 SpO2: 92 % O2 Device: None (Room air) Temp Min: 98.4 ??F (36.9 ??C) Max: 98.4 ??F (36.9 ??C) Pulse Min: 82 Max: 90 BP Min: 167/78 Max: 170/87 Resp Min: 18 Max: 18 SpO2 Min: 92 % Max: 92 % Physical Exam: Gen: Appears stated age, NAD HEENT: NC/AT, PERRL, EOMI, Sclera Anicteric, Hearing intact Neuro: AO, no focal deficits Psych: Affect appropriate, Behavior appropriate, Cooperative CV: Hypertensive, Normocardic Pulm: NWOB on NC ABD: Soft, NT, ND MSK: MAEx4, warm, PPP Skin: No obvious rashes, jaundice, erythema Data I have personally reviewed the following data over the past 24 hrs: 13.6 (H) \ 10.2 (L) / 572 (H) 142 105 12.4 / 98 3.6 25 0.89 \ ALT: 26 AST: 34 AP: 125 TBILI: 0.4 ALB: 3.2 (L) TOT PROTEIN: 7.0 LIPASE: N/A INR: 1.19 (H) PTT: N/A D-dimer: N/A Fibrinogen: N/A Imaging results reviewed over the past 24 hrs: No results found for this or any previous visit (from the past 24 hour(s)). Associated attestation - Maxwell Miller MD - 03/25/2023 9:56 AM CDT Attestation: I have reviewed vital signs, medications, lab work, imaging. This patient has been seen and evaluated by me on rounds. I agree with the findings and plan in this note. Rai Findings: Diagnoses - perforated complex diverticulitis with two abscesses, larger one overlying spine. He remains nontoxic, with a benign abdomen. -Continue IV abx, NPO for now. -Consult ortho spine. This is more for the possibility of the need of a surgical intervention, should there be anything operatively needed. -This ultimately may require a surgical intervention given its likely inaccessibility radiologically, its size, and involvement in the mesentery. Patient seen on March 25, 2023, time spent 60 minutes. Maxwell Miller MD Division of Colon and Rectal Surgery [facility] [phone] documented in this encounter Consult Notes * Mauricio Nieto PA-C - 03/25/2023 11:23 AM CDTAssociated Order(s): INTERVENTIONAL RADIOLOGY ADULT/PEDS IP CONSULT Images from the original note were not included. Interventional Radiology [facility] Consult Service Note 03/25/23 11:30 AM Consult Requested: Diverticular abscess aspiration or drainage Recommendations/Plan: Imaging reviewed with Dr. Ashley Unfortunately, there is no percutaneous window to drain or aspirate the diverticular abscess Could consider consulting GI or managing medically. If no clinical improvement, can re scan and seeif collection has grown and a window develops. Recommendations were reviewed with Vonnie Park PA-C with colorectal History of Present Illness: Theodore Wu is a 78 year old [place] male with past medical history of CAD, incidentally found abscess on MR of lumbar spine looking into back pain. Comes to ED with diverticular abscess. Denies fever or pain other than back pain. Pertinent Imaging Reviewed: Expected date of discharge: 03/29/2023 Vitals: BP (!) 167/75 Pulse 69 Temp 98.2 ??F (36.8 ??C) (Oral) Resp 12 Ht 1.702 m (5' 7) Wt 77.1kg (170 lb) SpO2 93% BMI 26.63 kg/m?? Pertinent Labs: Lab Results Component Value Date WBC 14.8 (H) 03/25/2023 WBC 13.6 (H) 03/25/2023 Lab Results Component Value Date HGB 9.9 03/25/2023 HGB 10.2 03/25/2023 Lab Results Component Value Date PLT 510 03/25/2023 PLT 572 03/25/2023 Lab Results Component Value Date INR 1.19 (H) 03/25/2023 Lab Results Component Value Date POTASSIUM 3.4 03/25/2023 COVID-19 Antibody Results, Testing for Immunity No data to display COVID-19 PCR Results No data to display Mauricio Nieto PA-C Interventional Radiology Pager: [phone] documented in this encounter ED Notes * Lis Jha RN - 03/25/2023 3:31 AM CDT [facility] from [facility] for pelvic masses - needs CRS consult. * Mariela Rosales RN - 03/25/2023 3:29 AM CDT Bed: ED07 Expected date: Expected time: Means of arrival: Comments: Kristal * Margarito Ashley MD - 03/25/2023 3:29 AM CDT ED Provider Note [facility] History Chief Complaint Patient presents with Mass Pelvic mass HPI Theodore Wu is a 78 year old male who has medical history of hypertension, CAD, current smoker presenting with intra-abdominal abscess found on lumbar MRI. Patient was seen in outside hospital, apparently the abscess is not amenable to IR drainage. The patient has had back pain for quite some time and is scheduled for an upcoming procedure, this was found on an MRI. Denies fevers, Chaz pain, nausea, vomiting or change in bowel habits. He has had some urinary frequency but no dysuria. Past Medical History No past medical history on file. No past surgical history on file. No current outpatient medications on file. No Known Allergies Family History No family history on file. Social History A medically appropriate review of systems was performed with pertinent positives and negatives noted in the HPI, and all other systems negative. Physical Exam BP: (!) 170/87 Pulse: 82 Temp: 98.4 ??F (36.9 ??C) Resp: 18 Height: 170.2 cm (5' 7) Weight: 77.1 kg (170 lb) Physical Exam Physical Exam Constitutional: oriented to person, place, and time. appears well-developed and well-nourished. HENT: Head: Normocephalic and atraumatic. Neck: Normal range of motion. Pulmonary/Chest: Effort normal. No respiratory distress. Cardiac: No murmurs, rubs, gallops. RRR. Abdominal: Abdomen soft, nontender, nondistended. No rebound tenderness. MSK: Long bones without deformity or evidence of trauma Neurological: alert and oriented to person, place, and time. Skin: Skin is warm and dry. Psychiatric: normal mood and affect. behavior is normal. Thought content normal. ED Course, Procedures, & Data Procedures Results for orders placed or performed during the hospital encounter of 03/25/23 INR Status: Abnormal Result Value Ref Range INR 1.19 (H) 0.85 - 1.15 Comprehensive metabolic panel Status: Abnormal Result Value Ref Range Sodium 142 136 - 145 mmol/L Potassium 3.6 3.4 - 5.3 mmol/L Chloride 105 98 - 107 mmol/L Carbon Dioxide (CO2) 25 22 - 29 mmol/L Anion Gap 12 7 - 15 mmol/L Urea Nitrogen 12.4 8.0 - 23.0 mg/dL Creatinine 0.89 0.67 - 1.17 mg/dL Calcium 8.8 8.8 - 10.2 mg/dL Glucose 98 70 - 99 mg/dL Alkaline Phosphatase 125 40 - 129 U/L AST 34 0 - 45 U/L ALT 26 0 - 70 U/L Protein Total 7.0 6.4 - 8.3 g/dL Albumin 3.2 (L) 3.5 - 5.2 g/dL Bilirubin Total 0.4 <=1.2 mg/dL GFR Estimate 87 >60 mL/min/1.73m2 CBC with platelets and differential Status: Abnormal Result Value Ref Range WBC Count 13.6 (H) 4.0 - 11.0 10e3/uL RBC Count 3.42 (L) 4.40 - 5.90 10e6/uL Hemoglobin 10.2 (L) 13.3 - 17.7 g/dL Hematocrit 31.2 (L) 40.0 - 53.0 % MCV 91 78 - 100 fL MCH 29.8 26.5 - 33.0 pg MCHC 32.7 31.5 - 36.5 g/dL RDW 13.9 10.0 - 15.0 % Platelet Count 572 (H) 150 - 450 10e3/uL % Neutrophils 78 % % Lymphocytes 11 % % Monocytes 9 % % Eosinophils 1 % % Basophils 0 % % Immature Granulocytes 1 % NRBCs per 100 WBC 0 <1 /100 Absolute Neutrophils 10.6 (H) 1.6 - 8.3 10e3/uL Absolute Lymphocytes 1.5 0.8 - 5.3 10e3/uL Absolute Monocytes 1.2 0.0 - 1.3 10e3/uL Absolute Eosinophils 0.1 0.0 - 0.7 10e3/uL Absolute Basophils 0.1 0.0 - 0.2 10e3/uL Absolute Immature Granulocytes 0.1 <=0.4 10e3/uL Absolute NRBCs 0.0 10e3/uL Adult Type and Screen Status: None Result Value Ref Range ABO/RH(D) O POS Antibody Screen Negative Negative SPECIMEN EXPIRATION DATE [id number] CBC with platelets differential Status: Abnormal Narrative The following orders were created for panel order CBC with platelets differential. Procedure Abnormality Status --------- ------ CBC with platelets and d...[[id number]] Abnormal Final result Please view results for these tests on the individual orders. ABO/Rh type and screen Status: None Narrative The following orders were created for panel order ABO/Rh type and screen. Procedure Abnormality Status --------- ------ Adult Type and Screen[[id number]] Final result Please view results for these tests on the individual orders. Medications - No data to display Labs Ordered and Resulted from Time of ED Arrival to Time of ED Departure - No data to display No orders to display Critical care was not performed. Medical Decision Making The patient's presentation was of high complexity (an acute health issue posing potential threat tolife or bodily function). The patient's evaluation involved: review of external note(s) from 1 sources (ED note from outside hospital) review of 3+ test result(s) ordered prior to this encounter (CT, labs) ordering and/or review of 3+ test(s) in this encounter (see separate area of note for details) discussion of management or test interpretation with another health professional (colorectal surgery) The patient's management necessitated high risk (a parenteral controlled substance) and high risk (a decision regarding hospitalization). Assessment & Plan MDM Patient here with complex intraabdominal abscess. Abx given prior to arrival. I discussed with colorectal surgery who will admit patient for IV abx and possible OR. Patient stable here, wbc elevated,labs otherwise largely unremarkable. I have reviewed the nursing notes. I have reviewed the findings, diagnosis, plan and need for follow up with the patient. New Prescriptions No medications on file Final diagnoses: Intra-abdominal abscess (H) Margarito Ashley [facility] EMERGENCY DEPARTMENT 03/25/2023 Margarito Ashley MD 03/25/23 0451 documented in this encounter Miscellaneous Notes * Provider Notification - Anna Dukes RN - 03/25/2023 12:17 PM CDT RE: ED. rm 7 M.N, Pt is requesting nicotine lozenge and patch. Anna Salinas [phone] * Medication Scribe - Admission Medication History - Antonieta Castrejon - 03/25/2023 8:26 AM CDT Medication Scribe Admission Medication History Admission medication history is complete. The information provided in this note is only as accurateas the sources available at the time of the update. Medication reconciliation/reorder completed by provider prior to medication history? No Information Source(s): Patient and Patient's pharmacy via in-person and phone Pertinent Information: No medications were listed on pt's OFFICE SUPPORT ASSISTANT prior to arrival. Pt told me a few ofhis medications, the rest and all doses were verified through pt's pharmacy. Pt falling asleep throughout interview, could not gather last doses or med affordability. Changes made to OFFICE SUPPORT ASSISTANT medication list: Added: Alprazolam Aspirin Fentanyl patch Lisinopril Oxycodone-acetaminophen Simvastatin Deleted: None Changed: None Medication Affordability: Not including over the counter (OTC) medications, was there a time in the past 3 months when you did not take your medications as prescribed because of cost?: Unable to Assess Allergies reviewed with patient and updates made in EHR: yes Medication History Completed By: Antonieta Castrejon 03/25/2023 8:26 AM Prior to Admission medications Medication Sig Last Dose Taking? Auth Provider Half-Way End Date ALPRAZolam (XANAX) 0.25 MG tablet Take 0.25 mg by mouth 2 times daily as needed for anxiety Unknownat unknown Yes Unknown, Entered By History aspirin (ASA) 325 MG EC tablet Take 325 mg by mouth daily Unknown at unknown Yes Unknown, Entered By History fentaNYL (DURAGESIC) 12 mcg/hr [address] 1 patch onto the skin every 72 hours remove old patch. Unknown at unknown Yes Unknown, Entered By History lisinopril (ZESTRIL) 20 MG tablet Take 20 mg by mouth daily Unknown at unknown Yes Unknown, EnteredBy History Yes oxyCODONE-acetaminophen (PERCOCET) 5-325 MG tablet Take 1 tablet by mouth every 6 hours as needed for severe pain Unknown at unknown Yes Unknown, Entered By History simvastatin (ZOCOR) 20 MG tablet Take 20 mg by mouth At Bedtime Unknown at unknown Yes Unknown, Entered By History Yes documented in this encounter Plan of Treatment Pending Results Name Type Priority Associated Diagnoses Date /Time [facility] STAT 03/25 11:42 AM CDT MR [facility] STAT 03/25 11:42 AM CDT Scheduled Orders Name Type Priority Associated Diagnoses Orde r Schedule [facility] t [facility] for 1 Occurrences starting 03/25/2023 until 03/25/2023 MR [facility] STAT One t chely imaging for 1 Occurrences starting 03/25/2023 until 03/25/2023 documented as of this encounter Procedures Procedure Name Priority Date/Time Associated Diagnosis Comments PHOSPHORUS STAT 03/25/2023 6:06 AM CDT MAGNESIUM STAT 03/25/2023 6:06 AM CDT BASIC METABOLIC PANEL STAT 03/25/2023 6:06 AM CDT CBC WITH PLATELETS STAT 03/25/2023 6: 06 AM CDT CBC WITH PLATELETS AND DIFFERENTIAL STAT 03/25/2023 3:39 AM CDT TYPE AND SCREEN, ADULT STAT 3:39 AM CDT CBC WITH PLATELETS & DIFFERENTIAL STAT 03/25/2023 3:39 AM CDT INR STAT 03/25/2023 3:39 AM CDT PREALBUMIN Add-On 03/25/2023 3:39 AM CDT CRP INFLAMMATION Add-On 03/25/2023 3:39 AM CDT COMPREHENSIVE METABOLIC PANEL STAT 03/25/2023 3:39 AM CDT ALBUMIN LEVEL Add-On 03/25/2023 3:39 AM CDT ABO/RH TYPE AND SCREEN STAT 3:39 AM CDT documented in this encounter Results * Phosphorus (03/25/2023 6:06 AM CDT) Phosphorus 3.7 2.5 - 4.5 mg/dL 03/25/2023 6:50 AM CDT [facility] Blood STRUCTURE OF RIGHT HAND / Unknown Venipuncture / Unknown 03/25/2023 6:06 AM CDT 03/25/2023 6:21 AM CDT Yunior Greenwood MD LAB - BLOOD ORDERABL ES [facility] [address] [facility], [address] [id number], [facility] [phone] * Magnesium (03/25/2023 6:06 AM CDT) Magnesium 2.1 1.7 - 2.3 mg/dL 03/25/2023 6:50 AM CDT [facility] Blood STRUCTURE OF RIGHT HAND / Unknown Venipuncture / Unknown 03/25/2023 6:06 AM CDT 03/25/2023 6:21 AM CDT Yunior Greenwood MD LAB - BLOOD ORDERABL ES [facility] [address] [facility], [address] [id number], [facility] [phone] * (ABNORMAL) Basic metabolic panel (03/25/2023 6:06 AM CDT) Sodium 140 136 - 145 mmol/L 03/25/2023 6:50 AM CDT [facility] Potassium 3.4 3.4 - 5.3 mmol/L 03/25/2023 6:50 AM CDT [facility] Chloride 105 98 - 107 mmol/L 03/25/2023 6:50 AM CDT [facility] Carbon Dioxide (CO2) 25 22 - 29 mmol/L 03/25/2023 6:50 AM CDT [facility] Anion Gap 10 7 - 15 mmol/L 03/25/2023 6:50 AM CDT [facility] Urea Nitrogen 12.0 8.0 - 23.0 mg/dL 03/25/2023 6:50 AM CDT [facility] Creatinine 0.87 0.67 - 1.17 mg/dL 03/25/2023 6:50 AM CDT [facility] Calcium 8.7(L) 8.8 - 10.2 mg/dL 03/25/2023 6:50 AM CDT [facility] Glucose 100(H) 70 - 99 mg/dL 03/25/2023 6:50 AM CDT [facility] GFR Estimate 88 >60 mL/min/1.7 3m2 03/25/2023 6:50 AM CDT [facility] Blood STRUCTURE OF RIGHT HAND / Unknown Venipuncture / Unknown 03/25/2023 6:06 AM CDT 03/25/2023 6:21 AM CDT Yunior Greenwood MD LAB - BLOOD ORDERABL ES [facility] [address] [facility], [address] [place] [address], [facility] [phone] * (ABNORMAL) CBC with platelets (03/25/2023 6:06 AM CDT) WBC Count 14.8(H) 4.0 - 11.0 10e3/uL 03/25/2023 6:30 AM CDT [facility] RBC Count 3.27(L) 4.40 - 5.90 10e6/uL 03/25/2023 6:30 AM CDT [facility] Hemoglobin 9.9(L) 13.3 - 17.7 g/dL 03/25/2023 6:30 AM CDT [facility] Hematocrit 30.2(L) 40.0 - 53.0 % 03/25/2023 6:30 AM CDT [facility] MCV 92 78 - 100 fL 03/25/2023 6:30 AM CDT [facility] MCH 30.3 26.5 - 33.0 pg 03/25/2023 6:30 AM CDT [facility] MCHC 32.8 31.5 - 36.5 g/dL 03/25/2023 6:30 AM CDT [facility] RDW 13.9 10.0 - 15.0 % 03/25/2023 6:30 AM CDT [facility] Platelet Count 510(H) 150 - 450 10e3/uL 03/25/2023 6:30 AM CDT [facility] Blood STRUCTURE OF RIGHT HAND / Unknown Venipuncture / Unknown 03/25/2023 6:06 AM CDT 03/25/2023 6:22 AM CDT Yunior Greenwood MD LAB - BLOOD ORDERABL ES [facility] [address] [facility], [address] [phone] [phone] * (ABNORMAL) Prealbumin (03/25/2023 3:39 AM CDT) Prealbumin 10(L) 15 - 45 mg/dL 03/25/2023 9:54 AM CDT SPECIALTY CORE/PROT/ENDO Blood BLOOD SPECIMEN / Unknown Venipuncture / Unknown 03/25/2023 3:39 AM CDT 03/25/2023 3:50 AM CDT Yunior Greenwood MD LAB - BLOOD ORDERABL ES [facility] Special[facility] Lab [address] [facility], [address] [address], [facility] [phone] SPECIALTY CORE/PROT/ENDO Specialty Core/Prot/Endo [address] [facility], [address] [address], [facility] [phone] * (ABNORMAL) Albumin level (03/25/2023 3:39 AM CDT) Albumin 3.2(L) 3.5 - 5.2 g/dL 03/25/2023 5:33 AM CDT [facility] Blood BLOOD SPECIMEN / Unknown Venipuncture / Unknown 03/25/2023 3:39 AM CDT 03/25/2023 3:50 AM CDT Yunior Greenwood MD LAB - BLOOD ORDERABL ES [facility] [address] [place] [address], [address] [address], [facility] [phone] * (ABNORMAL) CRP inflammation (03/25/2023 3:39 AM CDT) CRP Inflammation 174.00(H) <5.00 mg/L 03/25/2023 5:25 AM CDT [facility] Blood BLOOD SPECIMEN / Unknown Venipuncture / Unknown 03/25/2023 3:39 AM CDT 03/25/2023 3:50 AM CDT Yunior Greenwood MD LAB - BLOOD ORDERABL ES [facility] [address] [facility], [address] [address], [facility] [phone] * Adult Type and Screen (03/25/2023 3:39 AM CDT) ABO/RH(D) O POS 03/25/2023 3:39 AM CDT [facility] Antibody Screen Negative Negative 03/25/2023 3:39 AM CDT [facility] SPECIMEN EXPIRATION DATE [id number] 03/25/2023 3:39 AM CDT [facility] Blood BLOOD SPECIMEN / Unknown Venipuncture / Unknown 03/25/2023 3:39 AM CDT 03/25/2023 3:49 AM CDT Margarito Ashley MD LAB - BLOOD BANK TEST ORDER Performing Organization Address City/State/[facility] Co de Phone Number [facility] [address] [place] [address] * (ABNORMAL) CBC with platelets and differential (03/25/2023 3:39 AM CDT) WBC Count 13.6(H) 4.0 - 11.0 10e3/uL 03/25/2023 3:57 AM CDT [facility] RBC Count 3.42(L) 4.40 - 5.90 10e6/uL 03/25/2023 3:57 AM CDT [facility] Hemoglobin 10.2(L) 13.3 - 17.7 g/dL 03/25/2023 3:57 AM CDT [facility] Hematocrit 31.2(L) 40.0 - 53.0 % 03/25/2023 3:57 AM CDT [facility] MCV 91 78 - 100 fL 03/25/2023 3:57 AM CDT [facility] MCH 29.8 26.5 - 33.0 pg 03/25/2023 3:57 AM CDT [facility] MCHC 32.7 31.5 - 36.5 g/dL 03/25/2023 3:57 AM CDT [facility] RDW 13.9 10.0 - 15.0 % 03/25/2023 3:57 AM CDT [facility] Platelet Count 572(H) 150 - 450 10e3/uL 03/25/2023 3:57 AM CDT [facility] % Neutrophils 78 % 03/25/2023 3:57 AM CDT [facility] % Lymphocytes 11 % 03/25/2023 3:57 AM CDT [facility] % Monocytes 9 % 03/25/2023 3:57 AM CDT [facility] % Eosinophils 1 % 03/25/2023 3:57 AM CDT [facility] % Basophils 0 % 03/25/2023 3:57 AM CDT [facility] % Immature Granulocytes 1 % 03/25/2023 3:57 AM CDT [facility] NRBCs per 100 WBC 0 <1 /100 023 3:57 AM CDT [facility] Absolute Neutrophils 10.6(H) 1.6 - 8.3 10e3/uL 03/25/2023 3:57 AM CDT [facility] Absolute Lymphocytes 1.5 0.8 - 5.3 10e3/uL 03/25/2023 3:57 AM CDT [facility] Absolute Monocytes 1.2 0.0 - 1.3 10e3/uL 03/25/2023 3:57 AM CDT [facility] Absolute Eosinophils 0.1 0.0 - 0.7 10e3/uL 03/25/2023 3:57 AM CDT [facility] Absolute Basophils 0.1 0.0 - 0.2 10e3/uL 03/25/2023 3:57 AM CDT [facility] Absolute Immature Granulocytes 0.1 <=0.4 10e3/uL 03/25/2023 3:57 AM CDT [facility] Absolute NRBCs 0.0 10e3/uL 03/25/2023 3:57 AM CDT [facility] Blood BLOOD SPECIMEN / Unknown Venipuncture / Unknown 03/25/2023 3:39 AM CDT 03/25/2023 3:50 AM CDT Margarito Ashley MD LAB - BLOOD [facility] Organization Address City/State/ZIP Co de Phone Number [facility] [address] [facility] [address], [address] [place] [address], [facility] [phone] * (ABNORMAL) Comprehensive metabolic panel (03/25/2023 3:39 AM CDT) Sodium 142 136 - 145 mmol/L 03/25/2023 4:18 AM CDT [facility] Potassium 3.6 3.4 - 5.3 mmol/L 03/25/2023 4:18 AM CDT [facility] Chloride 105 98 - 107 mmol/L 03/25/2023 4:18 AM CDT [facility] Carbon Dioxide (CO2) 25 22 - 29 mmol/L 03/25/2023 4:18 AM CDT [facility] Anion Gap 12 7 - 15 mmol/L 03/25/2023 4:18 AM CDT [facility] Urea Nitrogen 12.4 8.0 - 23.0 mg/dL 03/25/2023 4:18 AM CDT [facility] Creatinine 0.89 0.67 - 1.17 mg/dL 03/25/2023 4:18 AM CDT [facility] Calcium 8.8 8.8 - 10.2 mg/dL 03/25/2023 4:18 AM CDT [facility] Glucose 98 70 - 99 mg/dL 03/25/2023 4:18 AM CDT [facility] Alkaline Phosphatase 125 40 - 129 U/L 03/25/2023 4:18 AM CDT [facility] AST 34 0 - 45 U/L 03/25/2023 4:18 AM CDT [facility] Comment:Reference intervals for this test were updated on 01/04/2023 to more accurately reflect our healthy population. There may be differences in the flagging of prior results with similar values performed with this method. Interpretation of those prior results can be made in the context of the updated reference intervals. ALT 26 0 - 70 U/L 03/25/2023 4:18 AM CDT [facility] Comment:Reference intervals for this test were updated on 01/04/2023 to more accurately reflect our healthy population. There may be differences in the flagging of prior results with similar values performed with this method. Interpretation of those prior results can be made in the context of the updated reference intervals. Protein Total 7.0 6.4 - 8.3 g/dL 03/25/2023 4:18 AM CDT [facility] Albumin 3.2(L) 3.5 - 5.2 g/dL 03/25/2023 4:18 AM CDT [facility] Bilirubin Total 0.4 <=1.2 mg/dL 03/25/2023 4:18 AM CDT [facility] GFR Estimate 87 >60 mL/min/1. 73m2 03/25/2023 4:18 AM CDT [facility] Blood BLOOD SPECIMEN / Unknown Venipuncture / Unknown 03/25/2023 3:39 AM CDT 03/25/2023 3:50 AM CDT Margarito Ashley MD LAB - BLOOD [facility] [address] [facility], [address] [place] [address], [facility] [phone] * (ABNORMAL) INR (03/25/2023 3:39 AM CDT) INR 1.19(H) 0.85 - 1.15 03/25/2023 4:06 AM CDT [facility] Blood BLOOD SPECIMEN / Unknown Venipuncture / Unknown 03/25/2023 3:39 AM CDT 03/25/2023 3:50 AM CDT Margarito Ashley MD LAB - BLOOD [facility] LAB[facility] [address] [facility], [address] [place] [address], [facility] [phone] documented in this encounter Visit Diagnoses Diagnosis Intra-abdominal abscess (H)- Primary Peritoneal abscess Intra-abdominal abscess (H) Peritoneal abscess documented in this encounter Admitting Diagnoses Diagnosis Intra-abdominal abscess (H) Peritoneal abscess documented in this encounter Administered Medications Inactive Administered Medications - up to 3 most recent administrations Medication Order MAR Action Action Date Dose Rate Site acetaminophen (TYLENOL) tablet 975 mg 975 mg, Oral, EVERY 8 HOURS, First dose on Wed03/25/23 at 0600, Maximum acetaminophen dose from all sources = 75 mg/kg/day not to exceed 4 grams/day. $Given 03/25/2023 1:52 PM CDT 975 mg $Given 03/25/2023 5:20 AM CDT 975 mg artificial saliva (BIOTENE DRY MOUTHWASH) liquid 15 mL 15 mL, Swish & Spit, 4 TIMES DAILY PRN, dry mouth, Starting on Bree 03/25/23 at 0449 calcium carbonate (TUMS) chewable tablet 500-1,000 mg 500-1,000 mg, Oral, DAILY PRN, heartburn, Starting on Wed03/25/23 at 0450, Indications: Acid Indigestion, Heartburn cefTRIAXone (ROCEPHIN) 1 g vial to attach to NS 100 mL bag for ADULTS or NS 50 mL bag for PEDS STAT, 1 g, Intravenous, EVERY 24 HOURS, First dose on Bree 03/25/23 at 0505, Indications: Abscess $New Bag 03/25/2023 5:20 AM CDT 1 g dextrose 5% and 0.45% NaCl + KCl 20 mEq/L infusion at 100 mL/hr, Intravenous, CONTINUOUS, Starting on Wed03/25/23 at 0455, Until Wed03/26/23 at 0256 Rate/Dose Verify 03/25/2023 7:49 AM CDT 100 mL/hr Rate/Dose Verify 03/25/2023 7:16 AM CDT 100 mL/ hr $New Bag 03/25/2023 5:10 AM CDT 100 mL/hr HYDROmorphone (PF) (DILAUDID) injection 0.5 mg 0.5 mg, Intravenous, ONCE, On Wed03/25/23 at 0435, For 1 dose $Given 03/25/2023 4:36 AM CDT 0.5 mg melatonin sublingual tablet 5 mg 5 mg, Sublingual, AT BEDTIME PRN, sleep, Starting on Wed03/25/23 at 0449 metroNIDAZOLE (FLAGYL) infusion 500 mg STAT, 500 mg, Intravenous, EVERY 12 HOURS, First dose on Wed03/25/23 at 0505, Do not refrigerate., Indications: Abscess $New Bag 03/25/2023 5:33 AM CDT 500 mg nicotine (NICORETTE) gum 2 mg 2 mg, Buccal, EVERY 1 HOUR PRN, nicotine withdrawal symptoms, Starting on Wed03/25/23 at 1315, Gum should be chewed slowly until it tingles, then placed between cheek and gum: when tingle gone, repeat process until tingle gone (about 30 minutes). $Given 03/25/2023 1:51 PM CDT 2 mg nicotine (NICORETTE) gum 4 mg 4 mg, Buccal, EVERY 1 HOUR PRN, nicotine withdrawal symptoms, Starting on Wed03/25/23 at 1447, Gum should be chewed slowly until it tingles, then placed between cheek and gum: when tingle gone, repeat process until tingle gone (about 30 minutes). oxyCODONE (ROXICODONE) tablet 5-10 mg 5-10 mg, Oral, EVERY 3 HOURS PRN, other, Pain, Starting on Bree 03/25/23 at 0452, For mild to moderate pain, use 5mg. For severe pain, use 10mg. $Given 03/25/2023 6:50 AM CDT 5 mg simethicone (MYLICON) chewable tablet 80 mg 80 mg, Oral, EVERY 6 HOURS PRN, cramping, Starting on Bree 03/25/23 at 0450 documented in this encounter Active and Recently Administered Medications Times are shown in CDT. Scheduled Medication Order 03/23/2023 03/24/2023 03/25/2023 acetaminophen (TYLENOL) tablet 975 mg 975 mg, Oral, EVERY 8 HOURS, First dose on Bree 03/25/23 at 0600, Maximum acetaminophen dose from all sources = 75 mg/kg/day not to exceed 4 grams/day. 0520 ($Given - Provi aurelio: Lis Jha, MEDHAT)1352 ($Given - Provider: Anna Dukes RN)2200 (Canceled Entry - Provider: Orders Generic Provider - Comment: Automatically canceled at discontinue of medication order) cefTRIAXone (ROCEPHIN) 1 g vial to attach to NS 100 mL bag for ADULTS or NS 50 mL bag for PEDS STAT, 1 g, Intravenous, EVERY 24 HOURS, First dose on Wed03/25/23 at 0505, Indications: Abscess 0520 ($New Bag - Pro vider: Lis Jha, MEDHAT)0550 (Stopped - Provider: Margarito Acosta RN) HYDROmorphone (PF) (DILAUDID) injection 0.5 mg (COMPLETED) 0.5 mg, Intravenous, ONCE, On Bree 03/25/23 at 0435, For 1 dose 0436 ($Given - Provi aurelio: Lis Jha, MEDHAT) Lidocaine (LIDOCARE) 4 % Patch 2 patch 2 patch, Transdermal, EVERY 24 HOURS 0800, Administer over 12 Hours, First dose on Wed03/25/23 at 0800, Apply patch(s) to lumbar back. To prevent lidocaine toxicity, patient should be patch free for 12 hrs daily. Patches may be cut to smaller size prior to removing release liner. Reminder: Remove previous patch before applying new patch. NEVER APPLY HEAT OVER PATCH which increases absorption and may lead to local anesthetic toxicity. Do not apply over area where liposomal bupivacaine was injected for 96 hours post injection. 0800 (Canceled Entry - Provider: Orders Generic Provider - Comment: Automatically canceled at discontinue of medication order) metroNIDAZOLE (FLAGYL) infusion 500 mg STAT, 500 mg, Intravenous, EVERY 12 HOURS, First dose on Wed03/25/23 at 0505, Do not refrigerate., Indications: Abscess 0533 ($New Bag - Pro vider: Lis Jha RN)1705 (Canceled Entry - Provider: Orders Generic Provider - Comment: Automatically canceled at discontinue of medication order) Continuous Medication Order 03/23/2023 03/24/2023 03/25/2023 dextrose 5% and 0.45% NaCl + KCl 20 mEq/L infusion at 100 mL/hr, Intravenous, CONTINUOUS, Starting on Wed03/25/23 at 0455, Until Wed03/26/23 at 0256 0510 ($New Bag - Pro vider: Lis Jha RN)0716 (Rate/Dose Verify - Provider: Lis Jha RN)0749 (Rate/Dose Verify - Provider: Margarito Acosta RN) PRN Medication Order 03/23/2023 03/24/2023 03/25/2023 acetaminophen (TYLENOL) tablet 325 mg 325 mg, Oral, EVERY 8 HOURS PRN, mild pain, fever, headaches, Starting on Wed03/25/23 at 0452, Maximum acetaminophen dose from all sources = 75 mg/kg/day not to exceed 4 grams/day. artificial saliva (BIOTENE DRY MOUTHWASH) liquid 15 mL 15 mL, Swish & Spit, 4 TIMES DAILY PRN, dry mouth, Starting on Wed03/25/23 at 0449 calcium carbonate (TUMS) chewable tablet 500-1,000 mg 500-1,000 mg, Oral, DAILY PRN, heartburn, Starting on Wed03/25/23 at 0450, Indications: Acid Indigestion, Heartburn HYDROmorphone (DILAUDID) injection 0.2-0.4 mg 0.2-0.4 mg, Intravenous, EVERY 1 HOUR PRN, other, For breakthrough pain, Starting on Wed03/25/23 at 0452 hydrOXYzine (ATARAX) tablet 25-50 mg 25-50 mg, Oral, 3 TIMES DAILY PRN, itching, anxiety, other, insomnia, Starting on Wed03/25/23 at 0452 melatonin sublingual tablet 5 mg 5 mg, Sublingual, AT BEDTIME PRN, sleep, Starting on Wed03/25/23 at 0449 nicotine (NICORETTE) gum 2 mg (CANCELED) 2 mg, Buccal, EVERY 1 HOUR PRN, nicotine withdrawal symptoms, Starting on Wed03/25/23 at 1315, Gum should be chewed slowly until it tingles, then placed between cheek and gum: when tingle gone, repeat process until tingle gone (about 30 minutes). 1351 ($Given - Provi aurelio: Anna Dukes RN) nicotine (NICORETTE) gum 4 mg 4 mg, Buccal, EVERY 1 HOUR PRN, nicotine withdrawal symptoms, Starting on Wed03/25/23 at 1447, Gum should be chewed slowly until it tingles, then placed between cheek and gum: when tingle gone, repeat process until tingle gone (about 30 minutes). oxyCODONE (ROXICODONE) tablet 5-10 mg 5-10 mg, Oral, EVERY 3 HOURS PRN, other, Pain, Starting on Wed03/25/23 at 0452, For mild to moderate pain, use 5mg. For severe pain, use 10mg. 0650 ($Given - Provi aurelio: Lis Jha RN) simethicone (MYLICON) chewable tablet 80 mg 80 mg, Oral, EVERY 6 HOURS PRN, cramping, Starting on Wed03/25/23 at 0450 documented in this encounter Care Teams Consultant Education Relationship Specialty Start Date End Date No Ref-Primary, Physician PCP - General 03/25/23 documented as of this encounter
--- OUTSIDE RECORDS SUMMARY | 2023-08-31 14:37 | XMS_ITS ---
Author Name Unknown Organization [facility] Address [address] [place] [id number] Care Team Providers Care Diesel Mechanic Apprentice Name Role Phone No Ref-Primary, Physician Primary Care Provider Transitional Care Management Status:Closed (Closed) Start date:03/31/2023 Enrollment date:04/01/2023 End date:04/14/2023 Close reason:Goals met Continued Care and Services Coordination
--- OUTSIDE RECORDS SUMMARY | 2023-08-31 14:37 | XMS_ITS | Encounter Summary ---
Author Name Unknown Organization [facility] Address [address] [place] [address] Care Team Providers Care Airport Control Operator Name Role Phone No Ref-Primary, Physician Primary Care Provider Encounter Details Date Type Department Care Team (Latest Contact Info) Description 03/25/2023 Travel Social History Tobacco Use Types Packs/Day [...] AM CDT documented as of this encounter Plan of Treatment Not on file documented as of this encounter Visit Diagnoses Not on filedocumented in this encounter Care Teams Airport Control Operator Relationship Specialty Start Date End Date No Ref-Primary, Physician PCP - General 03/25/23 documented as of this encounter
--- OUTSIDE RECORDS SUMMARY | 2023-08-31 14:37 | XMS_ITS ---
Author Name Unknown Organization [facility] Address [address] [place] [id number] Care Team Providers Care Field Rep Name Role Phone No Ref-Primary, Physician Primary Care Provider Transitional Care Management Status:Enrolled (Active) Start date:08/23/2023 Enrollment date:08/24/2023 Continued Care and Services Coordination
--- NOTE | 2023-08-31 15:00 | CT_ITS ---
INDICATION: COLONIC DIVERTICULAR ABSCESS COMPARISON: 07/15/2023 PROCEDURE: POSTCONTRAST CT ABDOMEN AND PELVIS. 78 ML ISOVUE 370 INTRAVENOUS CONTRAST. FINDINGS: CONTINUE DECREASED SIZE OF THE CHEN DIVERTICULAR ABSCESS IN THE MIDLINE OF THE POSTERIOR PELVIS, NOW MEASURING 1.4 X 1.2 CM, PREVIOUSLY MEASURING 2.2 X 2.0 CM. EXTENSIVE DIVERTICULOSIS NOTED THROUGHOUT THE SIGMOID COLON WITH CHRONIC RETICULAR STRANDING EXTENDING SUPERIOR FROM THE SIGMOID COLON TOWARD THE RESIDUAL ABSCESS CAVITY. NO MECHANICAL BOWEL OBSTRUCTION. INCREASED STOOL NOTED WITHIN THE REDUNDANT COLON. THE APPENDIX IS WITHIN NORMAL LIMITS. MILD FIBROTIC CHANGES ARE PRESENT WITHIN THE LUNG BASES. FATTY LIVER NOTED. NO INTRAHEPATIC MASS. SPLEEN IS WITHIN NORMAL LIMITS. NORMAL ADRENAL GLANDS. SIMPLE CYST ARISES FROM THE UPPER POLE OF THE RIGHT KIDNEY. SMALL CYST LEFT KIDNEY. ATHEROSCLEROTIC DISEASE WITH ECTATIC ABDOMINAL AORTA. PANCREAS APPEARS SIMILAR WITH MILD ECTASIA OF THE PANCREATIC DUCT. THE GALLBLADDER IS INCOMPLETELY DISTENDED. NO ENLARGED LYMPH NODES. THE BLADDER IS INCOMPLETELY DISTENDED. SIMILAR APPEARANCE OF THE LEFT INGUINAL CANAL. MULTILEVEL DEGENERATIVE CHANGES THROUGHOUT THE THORACIC SPINE WITH ASSOCIATED FACET DEGENERATION. IMPRESSION: CONTINUED DECREASED SIZE OF THE DIVERTICULAR ABSCESS WITHIN THE MIDLINE OF THE POSTERIOR PELVIS. A SMALL RESIDUAL FISTULA TRACT MAY BE PRESENT ARISING FROM THE SUPERIOR MARGIN OF THE SIGMOID COLON EXTENDING TOWARD THE ABSCESS. RESOLUTION OF THE PREVIOUSLY NOTED LEFT HYDRONEPHROSIS. CONSTIPATION WITHIN THE REDUNDANT COLON. NO SMALL BOWEL OBSTRUCTION.
[2023-08-31 15:15] LABS: Creatinine* 0.8 mg/dL (0.5-1.5); Estimated Glomerular Filt Rate 90 ml/min
== END 2023-08-31 14:32 | disposition home or self-care (01) ==
LOC: CT 14:32
PROVIDERS: PCP Family Medicine; Visit Provider Physician Assistant
DX: K57.20 Diverticulitis of large intestine with perforation and abscess without bleeding (principal)
CPT/HCPCS: 36415; 74177; 82565; Q9967

== ENCOUNTER 2023-09-17 17:22 | Emergency (ER) | payer MEDICARE, SELFPAY ==
[2023-09-17 17:48] VITALS: BP 130/66; PULSE 90; RESP 16; TEMP 36.9; O2SAT 95; BMI 23.5
[2023-09-17 19:41] LABS: Basophils Percent Auto 0.2 % (0.0-3.0); Eosinophils Percent Auto 2.4 % (0.0-7.0); Hematocrit 36.7 % (37.0-53.0); Immature Granulocytes Pct Auto 0.2 %; Lymphocytes Percent Auto 17.8 % (20-44); Mean Corpuscular HGB Conc 33 gm/dL (32-36); Mean Corpuscular Hemoglobin 30 pg (26-34); Mean Corpuscular Volume 92 fL (80-100); Monocytes Percent Auto 7.3 % (0.0-11.0); Neutrophils Percent Auto 72.1 % (42.0-72.0); Platelet Count* 227 K/uL (140-440); RDW Coefficient of Variation % 15.6 % (11.5-15.5); Red Blood Count 3.97 m/uL (4.30-5.90)
--- NOTE | 2023-09-17 19:48 | ED.GENADULT ---
HPI - General Adult General Date Seen: 09/17/23 Chief complaint: Weakness Stated complaint: Inf disease drs told him to get electrolytes check Time Seen by Provider: 09/17/23 18:50 Source: patient Mode of arrival: ambulatory Limitations: no limitations History of Present Illness HPI narrative: Patient is a 78-year-old male presenting to the emergency department to get electrolytes checked in concern for C diff. patient states he started noticing soft stools last night and have continued today. He states they are similar to the previous time he was diagnosed with C diff for the months ago. He denies abdominal pain, weakness, dizziness, chest pain, shortness of breath, diarrhea, muscle aches. States he is otherwise feeling asymptomatic. He spoke to his doctor today and was told to come to emergency department to get checked out before being started on any C diff medications. Of note he does have a colonic abscess that has been known for several months now. They have tried IV antibiotics that have not worked and plan on having it removed in about a month. Related Data Home Medications Medication Instructions Recorded Confirmed ascorbic acid (vitamin C) 500 mg 1 cap PO DAILY 08/05/22 08/23/23 capsule latanoprost 0.005 % eye drops 1 drp ophthalmic (eye) QDAY 08/05/22 08/23/23 multivitamin (Multiple Vitamins 1 tab PO QDAY 08/05/22 08/23/23 tablet) nitroglycerin 0.4 mg sublingual 0.4 mg sublingual Q5-15M PRN 08/05/22 08/23/23 tablet nicotine 11 mg/24 hr daily mg transdermal Q24H 04/09/23 08/23/23 transdermal patch Previous Rx's Medication Instructions Recorded simvastatin 20 mg tablet 20 mg PO QPM #180 tabs 02/01/23 lisinopril 20 mg tablet 20 mg PO DAILY #90 tabs 04/27/23 ergocalciferol (vitamin D2) 50 mcg 100 mcg (2 x 50 mcg (2,000 unit)) 07/22/23 (2,000 unit) capsule PO QDAY #60 caps alprazolam 0.5 mg tablet 0.5 mg PO BID PRN anxiety #30 tabs 08/18/23 tramadol 50 mg tablet 50 mg PO Q6H PRN pain #40 tabs 08/18/23 escitalopram oxalate 10 mg tablet 10 mg PO QDAY #30 tabs 08/23/23 fidaxomicin 200 mg tablet (Dificid) 200 mg PO Q12H 10 days #20 tabs 09/17/23 Allergies Allergy/AdvReac Type Severity Reaction Status Date / Time No Known Allergies Allergy Unknown Unknown Verified 09/17/23 17:50 PFSH [facility] Medical History History of tinnitus (09/18/09) ?Z86.69 - Personal history of other diseases of the nervous system and sense organs (ICD-10) Surgical History S/P anal fissurectomy ?Z98.890 - Other specified postprocedural states (ICD-10) ?Z87.19 - Personal history of other diseases of the digestive system (ICD-10) Status post coronary artery stent placement ?Z95.5 - Presence of coronary angioplasty implant and graft (ICD-10) Status post cataract extraction ?Z98.49 - Cataract extraction status, unspecified eye (ICD-10) History of tonsillectomy and adenoidectomy (03/07/13) ?Z90.89 - Acquired absence of other organs (ICD-10) History of rhinoplasty (03/07/13) ?Z98.890 - Other specified postprocedural states (ICD-10) Social History Smoking Status: Current every day smoker What tobacco products do you use: cigarettes Smoking packs per day: 2 Smoking cigarettes per day: 40.0 Years smoked: 65 Smoking pack-years: 130.00 Do you use any of these nicotine containing products: None Second hand tobacco smoke exposure: No How often do you have a drink containing alcohol: never AUDIT-C Alcohol total score: 0 Non-prescribed substance use: denies use service: Yes Exam Const: Vital Signs, click to edit/add: Vital Signs - 24 hr 09/17/23 17:48 Temperature 98.4 F Pulse Rate [Right Pulse Oximeter] 90 Respiratory Rate 16 Blood Pressure [Ri ght Upper Arm] 130/66 Pulse Oximetry 95 Oxygen Delivery Me thod Room Air Course Vital Signs Vital signs: Initial Vital Signs Temperature 98.4 F 09/17/23 17:48 Temperature Source Temporal Artery Scan 09/17/23 17:48 Pulse Rate 90 09/17/23 17:48 Pulse Rhythm Regular 09/17/23 17:48 Pulse Strength 3+ Normal 09/17/23 17:48 Respiratory Rate 16 09/17/23 17:48 Blood Pressure 130/66 09/17/23 17:48 Blood Pressure Mean 87 09/17/23 17:48 Blood Pressure Position Sitting 09/17/23 17:48 Pulse Oximetry 95 09/17/23 17:48 Oxygen Delivery Method Room Air 09/17/23 17:48 Vital Signs Temperature 98.4 F 09/17/23 17:48 Pulse Rate 90 09/17/23 17:48 Respiratory Rate 16 09/17/23 17:48 Blood Pressure 130/66 09/17/23 17:48 Pulse Oximetry 95 09/17/23 17:48 Oxygen Delivery Method Room Air 09/17/23 17:48 Temperature 98.4 F 09/17/23 17:48 Pulse Rate 90 09/17/23 17:48 Respiratory Rate 16 09/17/23 17:48 Blood Pressure 130/66 09/17/23 17:48 Pulse Oximetry 95 09/17/23 17:48 Oxygen Delivery Method Room Air 09/17/23 17:48 Medical Decision Making MDM Narrative Medical decision making narrative: Patient 78-year-old male presenting for concern of C diff. he states he has been having multiple stools per day saying it feels like he goes every few minutes. Has not had any episodes of diarrhea here in the emergency department. Patient last was treated for C diff 08/21/2023 in states [facility] States he otherwise feels fine not having any other symptoms. He was told to come here to get his electrolytes checked. CBC and CMP were ordered CBC shows a white count of 13. His white counts have been elevated recently to and last time he had C diff it was 24 in our emergency department. His CMP shows no concerning findings. Even though he has not produced a stool sample for us at this time he states the stools are the exact same as last time he was diagnosed with C diff he has been dealing with it a lot. I do not believe further workup is necessary as he is otherwise asymptomatic. At this time I will prescribe him the antibiotic but told him he needs to follow up with primary care provider on Wednesday and also given a cup to catch a stool sample over the weekend. He is otherwise doing well be discharged home. Lab Data Labs: Lab Results 09/17/23 Range/Units 19:28 WBC 13.10 H (4.50-11.00) K/uL RBC 3.97 L (4.30-5.90) m/uL Hgb 12.0 L (13.5-17.5) gm/dL Hct 36.7 L (37.0-53.0) % MCV 92 (80-100) fL MCH 30 (26-34) pg MCHC 33 (32-36) gm/dL RDW Coeff of Jose 15.6 H (11.5-15.5) % Plt Count 227 (140-440) K/uL Neut % (Auto) 72.1 H (42.0-72.0) % Lymph % (Auto) 17.8 L (20-44) % [place] % (Auto) 7.3 (0.0-11.0) % Eos % (Auto) 2.4 (0.0-7.0) % Baso % (Auto) 0.2 (0.0-3.0) % Neut # (Auto) 9.40 H (1.7-7.0) K/uL Lymph # (Auto) 2.30 (0.90-2.90) K/uL [place] # (Auto) 1.00 H (0.00-0.90) K/UL Eos # (Auto) 0.30 (0.00-0.50) K/uL Baso # (Auto) 0.00 (0.00-0.30) K/uL Abs Immat Gran (auto) 0.00 (0.00-0.30) K/uL Imm/Tot Granulo (auto) 0.2 % Sodium 137 (135-149) mmol/L Potassium 3.4 L (3.6-5.1) mmol/L Chloride 103 (96-114) mmol/L Carbon Dioxide 27 (20-32) mmol/L Anion Gap 7 (7-15) mEq/L BUN 20 (7-30) mg/dL Creatinine 0.6 (0.5-1.5) mg/dL Estimated Creat Clear 56.00 Estimated GFR 98 ml/min Glucose 86 (60-115) mg/dL Calcium 9.3 (8.4-10.6) mg/dL Total Bilirubin 0.7 (0.1-1.5) mg/dL AST 22 (12-35) U/L ALT 11 (4-50) U/L Alkaline Phosphatase 95 (40-150) U/L Total Protein 7.2 (6.0-8.3) g/dL Albumin 3.7 (3.3-5.0) g/dL Discharge Plan Discharge Clinical Impression: Diarrhea Qualifiers: Diarrhea type: unspecified type Qualified Code(s): R19.7 - Diarrhea, unspecified Patient Disposition: Home, Self-Care Condition: Stable Instructions: Infectious Colitis (ED) Additional Instructions: We will provide UA cup to collect a stool sample to bring to your primary care provider if they wanted. Make sure you follow-up with the primary care provider soon as possible next week. Return for new or worsening symptoms. Take the antibiotic as prescribed Prescriptions: New Dificid 200 mg tablet 200 mg PO Q12H 10 Days Qty: 20 0RF No Action nicotine 11 mg/24 hr patch 24 hour transdermal Q24H multivitamin [Multiple Vitamins] Tablet 1 tab PO QDAY nitroglycerin 0.4 mg tablet, sublingual 0.4 mg sublingual Q5-15M PRN Rx Instructions: PRN CHEST PAIN/ MAX 3 DOSES latanoprost 0.005 % drops 1 drp ophthalmic (eye) QDAY ascorbic acid (vitamin C) 500 mg capsule 1 cap PO DAILY escitalopram oxalate 10 mg tablet 10 mg PO QDAY Qty: 30 5RF simvastatin 20 mg tablet 20 mg PO QPM Qty: 180 1RF lisinopril 20 mg tablet 20 mg PO DAILY Qty: 90 3RF ergocalciferol (vitamin D2) 50 mcg (2,000 unit) capsule 100 mcg PO QDAY Qty: 60 5RF tramadol 50 mg tablet 50 mg PO Q6H PRN (Reason: pain) Qty: 40 1RF alprazolam 0.5 mg tablet 0.5 mg PO BID PRN (Reason: anxiety) Qty: 30 1RF Follow Up/Referrals: Marco A Buckley MD [Primary Care Provider] - Stand Alone Forms: [employer] Info Instructions
[2023-09-17 19:54] LABS: Albumin* 3.7 g/dL (3.3-5.0); Chloride* 103 mmol/L (96-114)
[2023-09-17 19:55] LABS: Potassium* 3.4 mmol/L (3.6-5.1); Sodium* 137 mmol/L (135-149)
[2023-09-17 19:57] LABS: Alkaline Phosphatase* 95 U/L (40-150); Anion Gap 7 mEq/L (7-15); Aspartate Amino Transferase* 22 U/L (12-35); Bilirubin Total* 0.7 mg/dL (0.1-1.5); Carbon Dioxide* 27 mmol/L (20-32); Creatinine* 0.6 mg/dL (0.5-1.5); Estimated Glomerular Filt Rate 98 ml/min; Total Protein* 7.2 g/dL (6.0-8.3)
[2023-09-17 19:58] LABS: Alanine Aminotransferase* 11 U/L (4-50); Blood Urea Nitrogen* 20 mg/dL (7-30); Calcium* 9.3 mg/dL (8.4-10.6); Glucose* 86 mg/dL (60-115)
[2023-09-17 20:00] LABS: Slide Review Reflex No
[2023-09-17 20:45] VITALS: BP 148/75; PULSE 76; RESP 18; O2SAT 95
== END 2023-09-17 20:36 | disposition home or self-care (01) ==
PROVIDERS: Emergency Provider Student in an Organized Health Care Education/Training Program; PCP Family Medicine
DX: R19.7 Diarrhea, unspecified (principal)
CPT/HCPCS: 36415; 80053; 85025; 99283

== ENCOUNTER 2023-10-06 14:06 | Outpatient (CLI) | payer MEDICARE, SELFPAY | END 2023-10-06 14:07 | disposition home or self-care (01) | LOC: LKVREF 14:08 | PROVIDERS: PCP Family Medicine; Visit Provider Family Medicine | DX: I10 Essential (primary) hypertension (principal) | CPT/HCPCS: 80048 ==

== ENCOUNTER 2023-11-10 15:44 | Outpatient (CLI) | payer MEDICARE, SELFPAY ==
--- OUTSIDE RECORDS SUMMARY | 2023-11-15 12:50 | XMS_ITS | Encounter Summary ---
Author Name Unknown Organization [facility] Address [address], [place] [address] Phone Care Team Providers Care Railway Engineer Name Role Phone Unavailable Primary Care Provider Unavailabl e Encounter Details Date Type Department Care Team (Late st Contact Info) Description 09/29/2023 11:00 AM [facility] Office Visit [employer] [facility] [address] [place] [address] Sybil Steinberg MD [address] [place] [address] Abdominal abscess ([facility]) (Primary Dx) Social History Tobacco Use Types [...] on difficid Was seen in ER at [facility] where again Difficid was prescribed. He still [...] [facility] was noted that this abscess would not amenable to IR drainage due to location. He signed out AGAINST MEDICAL ADVICE at that time. He also has history of chronic low back pain with finding of lumbar stenosis and has been seen by neurosurgery. He was admitted to [facility] from 03/27 - 03/30/23 with acute sigmoid [...] ID in 2 weeks ( [place] ) call soonerif issues. [facility] documented in this encounter Plan of Treatment Upcoming Encounters Date Type Department Care Team (Late st Contact Info) Description 11/17/2023 11:00 AM MDT Office Visit [facility] [address] [facility] [address] [place], [place] [address] Sybil Steinberg MD [address] [facility] [address] [place] [address] documented as of this encounter Visit Diagnoses Diagnosis Abdominal abscess (CMS-HCC)- Primary documented in this encounter
--- OUTSIDE RECORDS SUMMARY | 2023-11-15 12:50 | XMS_ITS | Encounter Summary ---
Author Name Unknown Organization [facility] Address [address] [place] [address] Phone Care Team Providers Care Tube Room Supervisor Name Role Phone Unavailable Primary Care Provider Unavailabl e Encounter Details Date Type Department Care Team (Late st Contact Info) Description 10/06/2023 Telephone [facility] [employer] [address] [place] [address] Mercy Bo RN Social History Tobacco Use [...] Sent 9 days of the vancomycin to [facility] in [place]. Patient stated understanding. documented in this encounter Plan of Treatment Upcoming Encounters Date Type Department Care Team (Late st Contact Info) Description 11/17/2023 11:00 AM MDT Office Visit [employer] [address] [place] [address] Sybil Steinberg MD [address] [facility] [address] [place] [address] documented as of this encounter Visit Diagnoses Not on filedocumented in this encounter
--- OUTSIDE RECORDS SUMMARY | 2023-11-15 12:50 | XMS_ITS | Encounter Summary ---
Author Name Unknown Organization [facility] Address [address] [place] [address] Phone Care Team Providers Care Fur Examiner Name Role Phone Unavailable Primary Care Provider Unavailabl e Encounter Details Date Type Department Care Team (Late st Contact Info) Description 10/21/2023 Telephone [employer] [address] [place] [address] Mercy Bo RN Social History Tobacco Use [...] Received a voicemail from Galen DSOUZA with [facility] Patient is currently in patient at [facility] having had a sigmoidectomy. They are calling on treatment for C diff following his surgery. Dr Steinberg is out of the clinic currently. Dr Martin stated that no treatment of C diff is needed. Per office visit note, Patient has been treated until his surgery date to prevent relapse. Spoke to staff at [facility] and they are going to page this message out to Galen DSOUZA. documented in this encounter Plan of Treatment Upcoming Encounters Date Type Department Care Team (Late st Contact Info) Description 11/17/2023 11:00 AM MDT Office Visit [employer] [address] [place] [address] Sybil Steinberg MD [address] [facility] [address] [place] [address] documented as of this encounter Visit Diagnoses Not on filedocumented in this encounter
--- OUTSIDE RECORDS SUMMARY | 2023-11-15 12:50 | XMS_ITS | Clinical Summary ---
Author Name Unknown Organization [place] Address [address] [place] [address] Care Team Providers Care Adolescent Medicine Specialist Name Role Phone Juan Pablo Buckley MD Primary Care Provider [phone] Allergies No known active allergies Medications Medication [...] for moderate pain 15 tablet 10/27/2023 Active vancomycin (VANCOCIN) 125 MG capsule Take 125 mg by mouth 2 times daily Discontinue d(Stop at Discharge) Active Problems Problem Noted Date Diagnosed Date Diverticulitis 10/20/2023 Pancolitis 08/18/2023 C. difficile colitis 08/18/2023 Clostridioides difficile infection 07/16/2023 Intra-abdominal abscess 03/25/2023 Encounters Date Type Department Care Team Description 10/20/2023 1:30 PM CDT Anesthesia Event [facility] PeriOp Services [address] [place] [address] Brandon Gold MD 10/20/2023 12:50 PM CDT - 10/20/2023 6:30 PM CDT Surgery [facility] [address] [place] [address] Tammy Montoya MD Intraoperative colonoscopy 10/20/2023 10:11 AM CDT - 10/27/2023 3:38 PM CDT Hospital Encounter [facility] 5 Medical Surgical [address] [place] [address] Tammy Montoya MD S/P colectomy (Primary Dx) [place]charge Disposition: [place] [facility] [place] 10/12/2023 Travel 08/20/2023 Hospital Encounter [facility] PeriOp Services [address] [place] [address] Mauricio Padilla MD Colonic diverticular abscess 08/18/2023 9:47 PM RECRUITER MANAGER - 08/21/2023 1:51 PM RECRUITER MANAGER Hospital Encounter [facility] General Surgery [address] [place] [address] Luisa Mendoza MD Schneider, Jun Zapata MD Clostridioides difficile infection (Primary Dx); Pancolitis (H); Intra-abdominal abscess (H); C. difficile colitis Discharge Disposition: Home-Health Care Svc 08/18/2023 Travel 08/18/2023 Orders Only [facility] [address] [place] [address] Tammy Montoya MD C. difficile diarrhea (Primary Dx) 08/17/2023 Orders Only [facility] [address] [place] [address] Tammy Montoya MD from Last 3 Months [...] PLATELETS & DIFFERENTIAL Routine 08/21/2023 7:42 AM RECRUITER MANAGER CBC WITH PLATELETS AND DIFFERENTIAL Routine 08/21/2023 7:42 AM RECRUITER MANAGER BASIC METABOLIC PANEL Routine 08/21/2023 7:42 AM RECRUITER MANAGER PHOSPHORUS Routine 08/21/2023 7:42 AM RECRUITER MANAGER POTASSIUM Timed 08/20/2023 10:02 PM RECRUITER MANAGER CBC WITH PLATELETS & DIFFERENTIAL Routine 08/20/2023 7:00 AM RECRUITER MANAGER CBC WITH PLATELETS AND DIFFERENTIAL Routine 08/20/2023 7:00 AM RECRUITER MANAGER PHOSPHORUS Routine 08/20/2023 7:00 AM RECRUITER MANAGER BASIC METABOLIC PANEL Routine 08/20/2023 7:00 AM RECRUITER MANAGER PHOSPHORUS Routine 08/19/2023 3:45 PM RECRUITER MANAGER ROUTINE UA WITH MICROSCOPIC REFLEX TO CULTURE Routine 08/19/2023 2:55 AM RECRUITER MANAGER C. DIFFICILE ANTIGEN AND TOXINS A/B BY ENZYME IMMUNOASSAY STAT 08/18/2023 11:41 PM RECRUITER MANAGER C. DIFFICILE TOXIN B PCR WITH REFLEX TO C. DIFFICILE ANTIGEN AND TOXINS A/B EIA STAT 08/18/2023 11:[address] ABDOMEN PELVIS W/O & W CONTRAST STAT 08/18/2023 8:56 PM RECRUITER MANAGER CBC WITH PLATELETS & DIFFERENTIAL STAT 08/18/2023 7:11 PM RECRUITER MANAGER CBC WITH PLATELETS AND DIFFERENTIAL STAT 08/18/2023 7:11 PM RECRUITER MANAGER COMPREHENSIVE METABOLIC PANEL STAT 08/18/2023 7:11 PM RECRUITER MANAGER MAGNESIUM STAT 08/18/2023 7:11 PM RECRUITER MANAGER from Last 3 Months Results * Platelet [...] MD LAB - BLOOD ORDER CHANEL LABORATORY [facility] Acute [facility] Lab [address] Lab (1st floor, no room number) [place] [address] * Basic metabolic panel (10/25/2023 7:49 AM [...] AM CDT 10/25/2023 7:57 AM CDT Adán Mcnela MD LAB - BLOOD ORDERABL ES LABORATORY [facility] [address] [facility] Lab (1st floor, no room number) [place] [address] * (ABNORMAL) CBC with platelets (10/25/2023 7:49 [...] Mcneal MD LAB - BLOOD ORDERABL ES [facility] Lab [address] [facility] Lab (1st floor, no room number) [place] [address], [facility] * XR Abdomen Port 1 View (10/23/2023 4:14 PM CDT) Anatomical Region Laterality Modality Abdomen/Pelvis Digital Radiogra phy 10/23/2023 4:14 PM CDT Impressions 10/23/2023 7:05 PM CDT IMPRESSION: Enteric tube in the body the stomach. Overall bowel loops not well assessed on this study for NG tube placement. Narrative 10/23/2023 7:05 PM CDT EXAM: XR ABDOMEN PORT 1 VIEW LOCATION: [facility] DATE: 10/23/2023 INDICATION: NG tube placement COMPARISON: None. Procedure Note Venkat Martinez MD - 10/23/2023 EXAM: XR ABDOMEN PORT 1 VIEW LOCATION: [facility] DATE: 10/23/2023 INDICATION: NG tube placement COMPARISON: [...] CDT EXAM: XR ABDOMEN 2 VIEWS LOCATION: [facility] DATE: 10/23/2023 INDICATION: Evaluate for ileus. COMPARISON: CT abdomen and pelvis 08/18/2023. Procedure Note Jillian Nicole MD - 10/23/2023 EXAM: XR ABDOMEN 2 VIEWS LOCATION: [facility] DATE: 10/23/2023 INDICATION: Evaluate for ileus. COMPARISON: [...] Tammy Montoya MD LAB - BEAKER POCT [facility] Acute Care Lab [address] [facility] Lab (1st floor, no room number) [place] [address] * Phosphorus (10/21/2023 6:22 AM CDT) Only the most recent of4 resultswithin the time period is included. Phosphorus 2.9 2.5 - 4.5 mg/dL 10/21/2023 6:58 AM CDT LABORATORY Blood STRUCTURE OF RIGHT UPPER LIMB / Unknown Venipuncture / Unknown 10/21/2023 6:22 AM CDT 10/21/2023 6:31 AM CDT Tammy Montoya MD LAB - BLOOD ORDER CHANEL [facility] [address] [facility] Lab (1st floor, no room number) [place] [phone] * Magnesium (10/21/2023 6:22 AM CDT) Only the most recent of2 resultswithin the time period is included. Magnesium 1.8 1.7 - 2.3 mg/dL 10/21/2023 6:58 AM CDT LABORATORY Blood STRUCTURE OF RIGHT UPPER LIMB / Unknown Venipuncture / Unknown 10/21/2023 6:22 AM CDT 10/21/2023 6:31 AM CDT Tammy Montoya MD LAB - BLOOD ORDER CHANEL [facility] [address] [facility] Lab (1st floor, no room number) [place] [phone] * Surgical Pathology Exam (10/20/2023 1:59 PM CDT) Case Report Surgical Pathology Report ? Case: [id number] ? Authorizing Provider: ??Tammy Montoya MD ?? Collected: ? 10/20/2023 01:59 PM ? Ordering Location: ? [facility] ?? Received: ?10/20/2023 02:44 PM [...] flowers-pink and contains a normal folding pattern. Senior Test Analyst sections are submitted as follows: B1-proximal margin, en face B2-distal margin, en face I2-V3-hjskou diverticula and mucosa B7-additional portion of bowel mucosa (MEET Oliveira) 10/22/2023 2:54 PM CDT LABORATORY Microscopic Description Microscopic examination was performed. 10/22/2023 2:54 PM CDT LABORATORY Performing Labs The technical component of this testing was completed at [facility] 10/22/2023 2:54 PM CDT LABORATORY Case Images 10/22/2023 2:54 PM CDT LABORATORY Polyp ASCENDING COLON STRUCTURE / Unknown 10/20/2023 1:59 PM CDT 10/20/2023 2:44 PM CDT Tissue specimen (specimen) SIGMOID COLON PART / Unknown 10/20/2023 4:32 PM CDT 10/20/2023 6:13 PM CDT Tammy Montoya MD LAB - KAYKAY LOPEZ LABORATORY [facility] [address] [facility] Lab (1st floor, no room number) [place] [address], [facility] * ANE AIRWAY ETT PERFORMABLE (10/20/2023 1:46 PM CDT) Narrative Layla Abdullahi APRN RISK AND INSURANCE CONSULTANT - 10/20/2023 1:46 PM CDT Layla Abdullahi APRN RISK AND INSURANCE CONSULTANT ? 10/20/2023 ??1:52 PM Airway ? Patient location during procedure: OR ? Procedure Start/Stop Times: 10/20/2023 1:46 PM Staff - ? Anesthesiologist: ??Layla Abdullahi APRN RISK AND INSURANCE CONSULTANT ? Performed By: RISK AND INSURANCE CONSULTANT Consent for Airway ? Urgency: elective Indications [...] Time: 10/20/2023 1:46 PM Brandon Gold MD PA ANESTHESIA * COLONOSCOPY (10/20/2023 1:02 PM CDT) [facility] Patient Name: Theodore Wu ? Procedure Date: [...] continuously. The ?Olympus Adult Colonoscope, Model # CF-FR257W, ?Censitrac # [id number] was introduced through the ?anus and advanced [...] Procedure Code(s): ? --- Professional --- ? 75434, Colonoscopy, flexible; with removal of tumor(s), polyp(s), or ? other lesion(s) by snare technique CPT copyright 2021 [employer]. All rights reserved. The codes documented in this report are preliminary and upon processing technologist review may be revised to meet current compliance requirements. TAMMY MONTOYA MD 10/22/2023 5:35:05 PM I was physically present for the entire viewing portion of the exam. TAMMY MONTOYA MD Number of Addenda: 0 Note Initiated On: 10/20/2023 1:02 PM MRN: ?[id number] Procedure Date: ? 10/20/2023 1:02:04 PM Scope [...] with platelets and differential (08/21/2023 7:42 AM RECRUITER MANAGER) Only the most recent of3 resultswithin the time period is included. WBC Count 8.9 4.0 - 11.0 10e3/uL 08/21/2023 7:[address] [facility] RBC Count 4.30(L) 4.40 - 5.90 10e6/uL 08/21/2023 7:[address] [facility] Hemoglobin 13.0(L) 13.3 - 17.7 g/dL 08/21/2023 7:[address] [facility] Hematocrit 38.4(L) 40.0 - 53.0 % 08/21/2023 7:[address] [facility] MCV 89 78 - 100 fL 08/21/2023 7:[address] [facility] MCH 30.2 26.5 - 33.0 pg 08/21/2023 7:[address] [facility] MCHC 33.9 31.5 - 36.5 g/dL 08/21/2023 7:[address] [facility] RDW 13.8 10.0 - 15.0 % 08/21/2023 7:[address] [facility] Platelet Count 136(L) 150 - 450 10e3/uL 08/21/2023 7:[address] [facility] % Neutrophils 67 % 08/21/2023 7:[address] [facility] % Lymphocytes 22 % 08/21/2023 7:[address] [facility] % Monocytes 9 % 08/21/2023 7:[address] [facility] % Eosinophils 1 % 08/21/2023 7:[address] [facility] % Basophils 0 % 08/21/2023 7:[address] [facility] % Immature Granulocytes 1 % 08/21/2023 7:[address] [facility] NRBCs per 100 WBC 0 <1 /100 024 7:[address] [facility] Absolute Neutrophils 6.0 1.6 - 8.3 10e3/uL 08/21/2023 7:[address] [facility] Absolute Lymphocytes 2.0 0.8 - 5.3 10e3/uL 08/21/2023 7:[address] [facility] Absolute Monocytes 0.8 0.0 - 1.3 10e3/uL 08/21/2023 7:[address] [facility] Absolute Eosinophils 0.1 0.0 - 0.7 10e3/uL 08/21/2023 7:[address] [facility] Absolute Basophils 0.0 0.0 - 0.2 10e3/uL 08/21/2023 7:[address] [facility] Absolute Immature Granulocytes 0.1 <=0.4 10e3/uL 08/21/2023 7:[address] [facility] Absolute NRBCs 0.0 10e3/uL 08/21/2023 7:[address] [facility] Blood BLOOD SPECIMEN / Unknown Venipuncture / Unknown 08/21/2023 7:42 AM RECRUITER MANAGER 08/21/2023 7:48 AM [facility] Chris Marie MD LAB - BLOOD ORDERAB LES LABORATORY [facility] Acute Care Lab [address] 1[address] floor, [address] [place] [address], [facility] [phone] * Potassium (08/20/2023 10:02 PM [facility]) [facility] Potassium 3.6 3.4 - 5.3 mmol/L 08/20/2023 10:[address] [facility] Blood STRUCTURE OF LEFT UPPER LIMB / Unknown Venipuncture / Unknown 08/20/2023 10:02 PM RECRUITER MANAGER 08/20/2023 10:07 PM RECRUITER MANAGER Jun Leone MD LAB - BLOOD OR DERABLES LABORATORY [facility] Acute [facility] Lab [address] 1[address] floor, [address] [place] [address], [facility] [phone] * (ABNORMAL) UA with Microscopic reflex to Culture (08/19/2023 2:55 AM RECRUITER MANAGER) Color Urine Light Yellow Colorless, Straw, Light Yellow, Yellow 08/19/2023 3:[address] [facility] Appearance Urine Clear Clear 08/19/19 3:[address] [facility] Glucose Urine Negative Negative mg/dL 08/19/2023 3:[address] [facility] Bilirubin Urine Negative Negative 3:[address] [facility] Ketones Urine 10(A) Negative mg/dL 08/19/2023 3:[address] [facility] Specific [place] Urine 1.015 1.003 - 1.035 STEPHEN 08/19/2023 3:[address] [facility] Blood Urine Negative Negative 08/19/2023 3:[address] [facility] pH Urine 5.5 5.0 - 7.0 08/19/2023 3:[address] [facility] Protein Albumin Urine Negative Negative mg/dL 08/19/2023 3:[address] [facility] Urobilinogen Urine Normal Normal, 2.0 mg/dL 08/19/2023 3:[address] [facility] Nitrite Urine Negative Negative 08/19/2023 3:[address] [facility] Leukocyte Esterase Urine Negative Negative 08/19/2023 3:[address] [facility] Mucus Urine Present(A) None Seen /LPF 08/19/2023 3:[address] [facility] RBC Urine 1 <=2 /HPF 08/19/2023 3:[address] [facility] WBC Urine 1 <=5 /HPF 08/19/2023 3:[address] [facility] Urine URINE SPECIMEN OBTAINED BY CLEAN CATCH PROCEDURE / Unknown Non-blood Collection / Unknown 08/19/2023 2:55 AM RECRUITER MANAGER 08/19/2023 3:05 AM RECRUITER MANAGER Narrative LABORATORY - 08/19/2023 3:13 AM RECRUITER MANAGER Urine Culture not indicated Jun Leone MD LAB - URINE OR DERABLES LABORATORY [facility] Lab [address] 1[address] floor, [address] [place] [address], [place] [phone] * (ABNORMAL) C. difficile Antigen and Toxins A/B by Enzyme Immunoassay (08/18/2023 11:41 PM RECRUITER MANAGER) C. difficile GDH Antigen Positive(A ) Negative STEPHEN 08/19/2023 6:00 AM RECRUITER MANAGER [facility] C. difficile Toxin Positive(A ) Negative STEPHEN 08/19/2023 6:00 AM RECRUITER MANAGER [facility] Stool RECTAL CONTENTS / Unknown Non-blood Collection / Unknown 08/18/2023 11:41 PM RECRUITER MANAGER 08/18/2023 11:51 PM RECRUITER MANAGER Narrative [facility] - 08/19/2023 6:00 AM RECRUITER MANAGER C. difficile GDH antigen and C. difficile toxin were detected by enzyme immunoassay. Results must be interpreted based on clinical findings and are supportive of C. difficile infection. Luisa Mendoza MD LAB - MICRO GENERAL ORDERABLES [facility] Inf. Diseases Diag. Lab [address] [facility], [address] [place] [address], [place] [phone] * (ABNORMAL) C. difficile Toxin B PCR with reflex to C. difficile Antigen and Toxins A/B EIA (08/18/2023 11:41 PM RECRUITER MANAGER) C Difficile Toxin B by PCR Positive( A) Negative 08/19/2023 5:02 AM RECRUITER MANAGER [facility] Comment: Detection of C. [...] Non-blood Collection / Unknown 08/18/2023 11:41 PM RECRUITER MANAGER 08/18/2023 11:51 PM RECRUITER MANAGER Narrative [facility] - 08/19/2023 5:02 AM RECRUITER MANAGER The CepMet[employer]id Xpert C. difficile Assay, performed on the [employer] Systems, is a qualitative in vitro [...] - MICRO GENERAL ORDERABLES [facility] Inf. Diseases Diag. Lab [address] [facility], [address] [place] [address], [facility] [phone] * CT Abdomen Pelvis w/o & w Contrast (08/18/2023 8:56 PM RECRUITER MANAGER) Anatomical Region Laterality Modality Abdomen/Pelvis, SUBRAD CT SISSY DY, UMP CT ABDOMEN PELVIS, RAD CT Computed Tomography 08/18/2023 8:56 PM RECRUITER MANAGER Impressions 08/18/2023 9:14 PM RECRUITER MANAGER IMPRESSION: 1. ??Pancolitis, likely infectious or inflammatory. [...] Correlate with urinalysis. Narrative 08/18/2023 9:14 PM RECRUITER MANAGER EXAM: CT ABDOMEN PELVIS W/O and W CONTRAST LOCATION: [facility] DATE: 08/18/2023 INDICATION: Diarrhea. Concern [...] ABDOMEN PELVIS W/O and W CONTRAST LOCATION: [facility] DATE: 08/18/2023 INDICATION: Diarrhea. Concern [...] cystitis. Correlate with urinalysis. Luisa Mendoza MD [facility] [place] * Comprehensive metabolic panel (08/18/2023 7:11 PM RECRUITER MANAGER) Pathologist [facility] Sodium 140 135 - 145 mmol/L 08/18/2023 8:14 PM RECRUITER MANAGER LABORATORY Comment:Reference intervals for this test were updated on 04/20/2023 to more accurately reflect our healthy population. There may be differences in the flagging of prior results with similar values performed with this method. Interpretation of those prior results can be made in the context of the updated reference intervals. Potassium 3.8 3.4 - 5.3 mmol/L 08/18/2023 8:[address] [facility] Carbon Dioxide (CO2) 25 22 - 29 mmol/L 08/18/2023 8:[address] [facility] Anion Gap 11 7 - 15 mmol/L 08/18/2023 8:[address] [facility] Urea Nitrogen 16.8 8.0 - 23.0 mg/dL 08/18/2023 8:[address] [facility] Creatinine 0.80 0.67 - 1.17 mg/dL 08/18/2023 8:[address] [facility] GFR Estimate 90 >60 mL/min/1. 73m2 08/18/2023 8:[address] [facility] Calcium 9.0 8.8 - 10.2 mg/dL 08/18/2023 8:[address] [facility] Chloride 104 98 - 107 mmol/L 08/18/2023 8:[address] [facility] Glucose 82 70 - 99 mg/dL 08/18/2023 8:[address] [facility] Alkaline Phosphatase 86 40 - 150 U/L 08/18/2023 8:[address] [facility] Comment:Reference intervals for this test were updated on 06/08/2023 to more accurately reflect our healthy population. There may be differences in the flagging of prior results with similar values performed with this method. Interpretation of those prior results can be made in the context of the updated reference intervals. AST 23 0 - 45 U/L 08/18/2023 8:[address] [facility] Comment:Reference intervals for this test were updated on 01/04/2023 to more accurately reflect our healthy population. There may be differences in the flagging of prior results with similar values performed with this method. Interpretation of those prior results can be made in the context of the updated reference intervals. ALT 22 0 - 70 U/L 08/18/2023 8:[address] [facility] Comment:Reference intervals for this test were updated on 01/04/2023 to more accurately reflect our healthy population. There may be differences in the flagging of prior results with similar values performed with this method. Interpretation of those prior results can be made in the context of the updated reference intervals. Protein Total 6.7 6.4 - 8.3 g/dL 08/18/2023 8:14 PM RECRUITER MANAGER LABORATORY Albumin 3.5 3.5 - 5.2 g/dL 08/18/2023 8:14 PM RECRUITER MANAGER LABORATORY Bilirubin Total 0.5 <=1.2 mg/dL 08/18/2023 8:14 PM RECRUITER MANAGER LABORATORY Blood BLOOD SPECIMEN / Unknown Venipuncture / Unknown 08/18/2023 7:11 PM RECRUITER MANAGER 08/18/2023 7:42 PM RECRUITER MANAGER Luisa Mendoza MD LAB - BLOOD ORDERABL ES LABORATORY [facility] Lab [address], [address] [place] [address], [facility] [phone] from Last 3 Months Advance Directives For more information, please contact: [phone] * Full Code (Latest Code Status on [...] deidre nt/ legal decision maker Care Teams Adolescent Medicine Specialist Relationship Specialty Start Date End Date Juan Pablo Buckley MD [facility] [id number] [place] [id number] PCP - General Family Medicine 10/20/23
--- OUTSIDE RECORDS SUMMARY | 2023-11-15 12:50 | XMS_ITS | Encounter Summary ---
Author Name Unknown Organization [facility] Address [address] [place] [address] Phone Care Team Providers Care Checker In Name Role Phone Unavailable Primary Care Provider Unavailabl e Encounter Details Date Type Department Care Team (Late st Contact Info) Description 11/11/2023 [address] [place] [address] [facility] Bo RN Social History Tobacco Use [...] Description 11/17/2023 11:00 AM MDT Office Visit [facility] [id number] [address] [place] [id number] Sybil Steinberg MD [address] [facility] [address] [place] [address] documented as of this encounter Visit Diagnoses Not on filedocumented in this encounter
--- OUTSIDE RECORDS SUMMARY | 2023-11-15 12:50 | XMS_ITS | Continuity of Care Document ---
Author Name Unknown Organization [facility] Address [address] [place] [address] Phone Care Team Providers Care Lighting Engineering Technician Name Role Phone Emmanuel Marya ROMAN Unavailable [...] by oral route 2 times every week [address] UNITS - Active Procedures Procedure Date Est [...] Providers Copied on Encounter MONSERRAT Ly, [address], [place], [place], [id number], [place] tel:[phone] [facility] No Information 3 [facility]. [address], [place], [address], [place]. tel:[phone] Referring Provider: Kaleb Lee, [address], [place], [address] . tel:[phone] Est Pt Eval 25 Min [facility], [address], [place], [place], [address], [place] tel:[phone] [facility] back pain (chief complaint) Body mass index (BMI) 26.0-26.9, adultRadiculopathy, lumbar region 3 Emmanuel Marya. [address], [place], [address], [place]. tel:[phone] Referring Provider: Kaleb Lee, [address], [place], [address] . tel:[phone] [facility], [address], [place], [place], [address], [place] tel:[phone] [facility] [place] No Information 3 Jesus Zapata. [address], [address], [place], [place], [address], [place]. tel:[phone] Referring Provider: Benny Lee, [address], [place], [address] . tel:[phone] [facility], [address], [place], [address], [place] tel:[phone] [facility] back pain (chief complaint) Radiculopathy, lumbar regionRadiculopathy , lumbar region 3 [facility]. [address], [place], [address], [place]. tel:[phone] Referring Provider: Benny Lee, [address], [place], [address] . tel:[phone] [facility], [facility], [address], [place], [place], [address], [place] tel:[phone] [facility] No Information 3 Jesus Zapata. [address], [address], [place], [place], [address], [place]. tel:[phone] Referring Provider: Benny Lee, [address], [place], [address] . tel:[phone] New Pt Eval 60 Min [facility], [facility], [address], [place], [place], [address], [place] tel:[phone] [facility] back pain (chief complaint) Radiculopathy, lumbar regionVertebrogenic low back painBody mass index (BMI) 27.0-27.9, adult Fe- 3 Foster Florin. [address], [place], [address], [place]. tel:[phone] Referring Provider: Kaleb Lee, [address], [place], [address] . tel:[phone] Family History Family Member Type Diagnosis Age At Onset No Information Payers Payer name Insurance type Covered constitution party ID Anne brian(s) Jacki Medicare PPO 16 [id number] Social History Type Description Quantity Date Captured [...]
--- OUTSIDE RECORDS SUMMARY | 2023-11-15 12:50 | XMS_ITS | Encounter Summary ---
Author Name Unknown Organization [facility] Address [address] [place] [address] Phone Care Team Providers Care Cytogenetic Technologist Name Role Phone Unavailable Primary Care Provider Unavailabl e Reason for Visit * Reason Onset Date Comments Diarrhea 09/17/2023 Encounter Details Date Type Department Care Team (Late st Contact Info) Description 09/17/2023 Telephone [employer] [place] [address] Alysia Estrada RN Diarrhea Social History Tobacco [...] Description 11/17/2023 11:00 AM MDT Office Visit [facility] [address] [place] [address] Sybil Steinberg MD [address] [facility] [address] [place] [address] documented as of this encounter Visit Diagnoses Not on filedocumented in this encounter
--- OUTSIDE RECORDS SUMMARY | 2023-11-15 12:50 | XMS_ITS | Clinical Summary ---
Author Name Unknown Organization [facility] Address [address] [place] [address] Phone Care Team Providers Care Gold Layer Name Role Phone Unavailable Primary Care Provider [...] Type Department Care Team Description 11/11/[address] [place] [address] Mercy Bo RN 10/21/2023 Telephone [employer] [address] [place] [address] [facility] Bo RN 10/06/2023 9:00 AM MDT Office Visit [address] [place] [address] Amarilys Lamb PA Clostridium difficile colitis (Primary Dx); Abdominal abscess ([facility]) 10/06/[address] [place] [address] [facility] Bo, MEDHAT 09/29/2023 11:00 AM MST Office Visit rocket staff [address] [place] [address] Sybil Steinberg MD Abdominal abscess ([facility]) (Primary Dx) 09/17/[address] [place] [id number] Alysia Estrada RN Diarrhea from Last 3 [...] Description 11/17/2023 11:00 AM MDT Office Visit [facility] [address] [facility] [address] [place], [place] [id number] Sybil Steinberg MD [address] [facility] [address] [place], [place] [id number] Health Maintenance Due Date Last Done Comments Pneumococcal PPSV23/PCV13 65 + Years / High and Highest Risk (1 of 4 - PCV) 1951 Influenza Vaccine (Season Ended) 2024
--- OUTSIDE RECORDS SUMMARY | 2023-11-15 12:50 | XMS_ITS | Continuity of Care Document ---
Author Name Unknown Organization [facility] Address [address] [place] [address] Phone Care Team Providers Care Bleach Boiler Puller Name Role Phone Linwood DAVID Amisathya Unavailable [...] C, [address], [place], [id number], [place] tel:[phone] [facility] No Information 3 hbjames Amir. [facility] [place], [address], [place], [place], [address] , [place]. tel:[phone] Office/Outpat ient Visit,Est, Mod [facility] C, [address], [place], [id number], [place] tel:[phone] [facility] Spinal stenosis, lumbar region with neurogenic claudication 3 Mehbod Amir. [facility] [place], [address], [place], [address] , [place]. tel:[phone] Referring Provider: Juan Pablo Amaya, [facility] [address], [place], [address]. tel:[phone] Office/Outpat ient Visit,[facility], [facility], [address], [place], [id number], [place] tel:[phone] [facility] Low back painSpinal stenosis, lumbar region with neurogenic claudication 1 Kenzie Leary. [facility], [address], [address], [place] [facility] [place], [address] , [place]. tel:[phone] Referring Provider: Juan Pablo Amaya, [facility] [address], [place], [address]. tel:[phone] Family History Family Member Type Diagnosis Age At Onset No Information Payers Payer name Insurance type Covered republican ID Authoriza tion(s) [employer] Medicare Gold Choice Ramesh CONTRERAS [id number] Social History Type Description Quantity Date [...]
--- OUTSIDE RECORDS SUMMARY | 2023-11-15 12:50 | XMS_ITS | Encounter Summary ---
Author Name Unknown Organization [facility] Address [address] [place] [address] Phone Care Team Providers Care Industrial Tech Instructor Name Role Phone Unavailable Primary Care Provider Unavailabl e Encounter Details Date Type Department Care Team (Late st Contact Info) Description 10/06/2023 9:00 AM MDT Office Visit [facility] [address] [place], [place] [phone] Amarilys Lamb PA [address] [place], [place] [phone] Clostridium difficile colitis (Primary Dx); Abdominal abscess ([facility]) Social History Tobacco Use Types Packs/Day [...] [facility]. [facility] noted that this abscess would not amenable to IR drainage due to location. He signed out AGAINST MEDICAL ADVICE at that time. He also has history of chronic low back pain with finding of lumbar stenosis and has been seen by neurosurgery. He was admitted to [facility] from 03/27 - 03/30/23 with acute [...] day course More recently presented again to [place] with recurrent C.diff. Fidaxomicin again prescribed. Doing [...] Description 11/17/2023 11:00 AM MDT Office Visit [facility] [address] [facility] [address] [place] [id number] Sybil Steinberg MD [address] [facility] [address] [place] [address] documented as of this encounter Visit Diagnoses Diagnosis Clostridium difficile colitis- Primary Abdominal abscess ([facility]-HCC) documented in this encounter
--- OUTSIDE RECORDS SUMMARY | 2023-11-15 12:51 | XMS_ITS | Encounter Summary ---
Author Name Unknown Organization [facility] Address [address] [place] [address] Care Team Providers Care Geosciences Professor Name Role Phone Juan Pablo Buckley MD [...] on filedocumented in this encounter Care Teams Geosciences Professor Relationship Specialty Start Date End Date Juan Pablo Buckley MD [facility] [address] [place] [address] PCP - General Family Medicine 10/20/23 documented as of this encounter
--- OUTSIDE RECORDS SUMMARY | 2023-11-15 12:51 | XMS_ITS | Encounter Summary ---
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] Procedures MD COLONOSCOPY W/WO BRUSH/WASH MD LAP,SURG,COLECTOMY, PARTIAL, W/ANAST MD LAP,SURG,COLECTOMY,W/REMVL TERM ILEUM MD LAP,SURG,COLECTOMY,W/END COLOST & CLOSUR MD LAP,SURG,COLECTOMY,W/ANAST MD LAP, SURG, COLECTOMY, W/ANAST, W/COLOSTOMY MD LAP,SURG,COLECTOMY,TOTAL,W/O PROCTECTOMY MD LAP,SURG,COLECTOMY,TOTAL,W/PRO CTECTOMY MD LAP,SURG,COLECT,TOT,W/PROCTECT ,W/ILEOST MD PART REMOVAL COLON W ANASTOMOSIS MD PART REMOVAL COLON W COLOSTOMY MD PART REMOVAL COLON W END COLOSTOMY MD PART REMOVAL COLON W OSTOMY/MUCOFIST MD PART REMOVAL COLON W COLOPROCTOSTOMY MD PART REMOVAL COLON W COLOPROC,COLOST MD PART REMOVAL COLON,ABD/TRANSANAL TRAVIS MD REMOVAL COLON/ILEOSTOMY ZZC REMOVAL COLON/ILEOSTOMY,CONTINENT MD REMOVAL COLON/PROCTECTOMY/ILEOSTOMY ZZC REMOVAL COLON/PROCTEC/ILEOSTOMY CONT ZZC REMOVAL COLON/PROCTEC/ ILEOANAL ANAST MD REMOVAL COLON/PROCTEC/ILEOANAL ANAST POUCH MD REMVL COLON/TERM ILEUM/ILEOCOLOSTOMY Intraoperative colonoscopy robotic sigmoid colectomy possible open, possible stoma [facility] [address] [place] [address] Referral ID Status Reason Start Date Expiration Date Visits Re quested Visits Authorized [id number] 1 1 Encounter Details Date Type Department Care Team (Late st Contact Info) Description 10/20/2023 1:30 PM CDT Anesthesia Event [facility] [address] [place] [address] Brandon Gold MD [facility] [address] [place], [place] [id number] Anesthesia Record Procedure Summary Procedure Name Responsible Anesthesiologist Anesthesia Start Time Anesthesia Stop Time Intraoperative colonoscopy (Rectum) Brandon Gold MD 10/20/23 1330 10/20/23 1807 Events Date Time Event Comment 10/20/2023 1232 RECORDS MANAGEMENT SPECIALIST Ready for Procedure 1330 An Start 1333 An Start Data 1334 AN REASSESS I attest that I have identified and re-evaluated the patient immediately before the induction of anesthesia and I am satisfied that the anesthetic plan is suitable for the patient's condition and procedure. The first vital signs recorded are pre- induction. Layla Abdullahi APRN RECORDS MANAGEMENT SPECIALIST 1343 An Induction 1343 MD Present 1346 [...] Stop Electronically signed by Margarito Thapa APRN RECORDS MANAGEMENT SPECIALIST on October 20, 2023 6:07 PM 1807 [...] Drain 10/20/23; 1716; LLQ ; Bulb; 19 Citizen Of [place] 10/20/23 1716 by Xenia Leal RN 10/22/23 [...] - 10/20/2023 6:58 PM CDT Patient: Christi Wu Procedure: Procedure(s): [...] PM Staff - Anesthesiologist: Layla Abdullahi APRN RECORDS MANAGEMENT SPECIALIST Performed By: RECORDS MANAGEMENT SPECIALIST Consent for Airway Urgency: elective Indications and [...] and realistic alternatives discussed. Questions answered and patient/customer loyalty representative(s) expressed understanding. - Discussed: - Discussed [...] ??Layla Abdullahi APRN CRNA ? Performed By: RECORDS MANAGEMENT SPECIALIST Consent for Airway ? Urgency: elective Indications [...] Time: 10/20/2023 1:46 PM Brandon Gold MD MD ANESTHESIA documented in this encounter Visit Diagnoses [...] mg documented in this encounter Care Teams Biopharmaceutical Rep Relationship Specialty Start Date End Date Juan Pablo Buckley MD [facility] [address] [place] [address] PCP - General Family Medicine 10/20/23 documented as of this encounter
--- OUTSIDE RECORDS SUMMARY | 2023-11-15 12:51 | XMS_ITS | Encounter Summary ---
Author Name Unknown Organization [place] Address [facility] [place] [address] Care Team Providers Care Puncher And Fastener Name Role Phone Sarina Mello MD Primary Care Provider [phone] Reason for Referral * Home Health Therapies & Aides (Routine: Next available opening) - Pending Review Specialty Diagnoses / Procedures Referred By Contac t Referred To Contact Diagnoses S/P colectomy Kalyn Villagomez PA-C [facility] [address] [place] [address] [address] Referral ID Status Reason Start Date Expiration Date V isits Requested Visits Authorized [id number] Pending Review 10/27/2023 10/26/2024 1 1 Question [...] 10/27/2023 Provider to follow patient SARINA MELLO [[id number]] Comments Your provider has ordered home health services. If you have not been contacted within 2 days of your discharge please call the selected Home Care agency listed on your Discharge document. If a Home Care agency is NOT listed, please call [phone]. 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] Procedures KS COLONOSCOPY W/WO BRUSH/WASH KS LAP,SURG,COLECTOMY, PARTIAL, W/ANAST KS LAP,SURG,COLECTOMY,W/REMVL TERM ILEUM KS LAP,SURG,COLECTOMY,W/END COLOST & CLOSUR KS LAP,SURG,COLECTOMY,W/ANAST KS LAP, SURG, COLECTOMY, W/ANAST, W/COLOSTOMY KS LAP,SURG,COLECTOMY,TOTAL,W/O PROCTECTOMY KS LAP,SURG,COLECTOMY,TOTAL,W/PRO CTECTOMY KS LAP,SURG,COLECT,TOT,W/PROCTECT ,W/ILEOST KS PART REMOVAL COLON W ANASTOMOSIS KS PART REMOVAL COLON W COLOSTOMY KS PART REMOVAL COLON W END COLOSTOMY KS PART REMOVAL COLON W OSTOMY/MUCOFIST KS PART REMOVAL COLON W COLOPROCTOSTOMY KS PART REMOVAL COLON W COLOPROC,COLOST KS PART REMOVAL COLON,ABD/TRANSANAL TRAVIS KS REMOVAL COLON/ILEOSTOMY ZZC REMOVAL COLON/ILEOSTOMY,CONTINENT KS REMOVAL COLON/PROCTECTOMY/ILEOSTOMY ZZC REMOVAL COLON/PROCTEC/ILEOSTOMY CONT ZZC REMOVAL COLON/PROCTEC/ ILEOANAL ANAST KS REMOVAL COLON/PROCTEC/ILEOANAL ANAST POUCH KS REMVL COLON/TERM ILEUM/ILEOCOLOSTOMY Intraoperative colonoscopy robotic sigmoid colectomy possible open, possible stoma [facility] [address] [place] [address] Referral ID Status Reason Start Date Expiration Date Visits Re quested Visits Authorized [id number] 1 1 Encounter Details Date Type Department Care Team (Latest Contact Info) Description 10/20/2023 10:11 AM CDT - 10/27/2023 3:38 PM CDT Hospital Encounter [place] [address] Medical Surgical [address] [place] [id number] Tammy Montoya MD [facility] [address] [place] [address] S/P colectomy (Primary Dx) Discharge Disposition: Home-Health [...] Villagomez PA-C - 10/27/2023 1:28 PM CDT [facility] Discharge Summary Christi Wu Age: [age] year old Date of : 1945 Date of Admission: 10/20/2023 Date of Discharge:: 10/27/2023 Admitting Physician: Tammy Montoya MD Discharge Physician: Tammy Montoya MD PCP: Sarina Mello Disposition: Patient discharged from [facility] to home in stable condition. Primary [...] No DVT No PE No CVA No CA No Enterocutaneous fistula No Peripheral nerve injury No Abscess (not adjacent to anastomosis) No Leak No Treated with: Antibiotics N/A Drain N/A Reoperation N/A within 30 days No Reintubation No Reoperation No Procedure N/A Associated attestation - Tammy Montoya MD - 10/28/2023 12:24 PM CDT Physician Attestation I have reviewed and discussed with the advanced practice provider their discharge plan for Chrisit Wu. I did not participate in a [...] Your home care referral was sent to [facility] If you haven't heard from them within the next 24-48 hours, Please call them at [phone] documented in this encounter Medications at Time [...] and faxed them the pt's discharge orders P:[phone] F: [phone]. Sw will continue to be available as needed until discharge. TATIANNA Alvarenga, [employer] Inpatient Care Coordination [facility] [phone] * Lexie Bang, PT - 10/27/2023 1:52 PM CDT PT: Noted in chart pt with discharge orders. Stopped in pt's room to check in if he had any additional mobility concerns to address prior to discharge and pt denied concern. Has been mobilizing well with previous PT sessions and with [facility] staff. Physical Therapy Discharge Summary Reason for therapy discharge: Discharged to home. Progress towards therapy goal(s). See goals on Care Plan in [facility] electronic health record for goal [...] questions/paging, please contact the CRS office at [phone]. Galen Moffett PA-C Colon [facility] Rectal Surgery [...] needed, minimize narcotics - Encourage ambulation - [facility] for ppx Disposition: Expected discharge in 1-2 days. Barriers to discharge: Tolerating low fiber diet, pain controlled with oral meds, return of bowel function. For questions/paging, please contact the CRS office at [phone]. Galen Moffett PA-C [facility] Associated attestation - Laura Rojo MD - 10/26/2023 1:08 PM CDT Physician Attestation I saw and evaluated Christi Wu as part of a shared PEDIATRIC DENTIST/PA visit. I personally reviewed the vital signs, [...] questions/paging, please contact the CRS office at [phone]. Galen Moffett PA-C [facility] CRS Staff. Seen and examined independently. Agree with above. I performed a history and physical examination of the patient and discussed their management with the physician railways assistant. I reviewed the physician assistants note and agree with the documented findings and plan of care. Adán Mcneal MD [facility] Colorectal Surgeon [facility] [address], [address] [place] [address] T: [phone] F: [phone] Pager: [phone] [email or web address] * Adán Mcneal MD - 10/24/2023 [...] Colorectal Surgeon [facility] [address], [address] [place] [address] T: [phone] F: [phone] Pager: [phone] [email or web address] Interval History: Xray demonstrating some ileus yesterday. [...] Colorectal Surgeon [facility] [address], [address] [place] [address] T: [phone] F: [phone] Pager: [phone] [email or web address] Interval History: Hypertensive overnight. Reports bloating and [...] needed, minimize narcotics - Encourage ambulation - [facility] for ppx Disposition: Expected discharge in 1-2 days. Barriers to discharge: Tolerating low fiber diet, pain controlled with oral meds, return of bowel function. Clinically Significant Risk Factors # Financial/Environmental Concerns: For questions/paging, please contact the CRS office at [phone]. Kalyn Villagomez PA-C Colon & Rectal Surgery [...] Evaluation Time PT Eval, Moderate Complexity Minutes (45962) 10 Physical Therapy Goals PT Frequency Daily PT Predicted Duration/Target Date for Goal Attainment 10/27/23 PT Goals Bed Mobility;Transfers;Gait PT: Bed Mobility Supine to/from sit;Rolling;Within precautions;Independent PT: Transfers Modified independent;Bed to/from chair;Sit to/from stand;Assistive device;Within precautions PT: Gait Supervision/stand-by assist;Rolling walker;150 feet Interventions Interventions Quick Adds Therapeutic Activity;Gait Training Therapeutic Activity Therapeutic Activities: dynamic activities to improve functional performance Minutes (14414) 8 Symptoms Noted During/After Treatment Increased pain;Fatigue [...] of session. Gait Training Gait Training Minutes (99150) 8 Symptoms Noted During/After Treatment (Gait Training) [...] needed, minimize narcotics - Encourage ambulation - [facility] for ppx For questions/paging, please contact the CRS office at [phone]. Kalyn Villagomez PA-C [facility] Associated attestation - Laura Rojo MD - 10/21/2023 6:45 PM CDT Physician Attestation I saw and evaluated Christi Wu as part of a shared PEDIATRIC DENTIST/PA visit. I personally reviewed the vital signs, [...] in Home spouse Current Living Arrangements house ([facility]) Home Accessibility no concerns Self-Care Usual Activity [...] weakness Bed Mobility Bed Mobility supine-sit;sit-supine Supine-Sit [place] (Bed Mobility) minimum assist (75% patient effort) Sit-Supine [place] (Bed Mobility) minimum assist (75% patient effort) Transfers Transfers sit-stand transfer;toilet transfer Sit-Stand Transfer Sit-Stand [place] (Transfers) supervision Toilet Transfer [place] Level (Toilet Transfer) supervision Balance Balance Comments Benefits from FWW, history of falls. Activities of Daily Living BADL Assessment/Intervention lower body dressing;grooming Lower Body Dressing Assessment/Training [place] Level (Lower Body Dressing) contact guard assist Grooming Assessment/Training [place] Level (Grooming) supervision Clinical Impression Criteria for [...] Evaluation Time OT Eval, Low Complexity Minutes (64081) 10 OT Goals Therapy Frequency (OT) Daily [...] Management Self-Care/Home Mgmt/ADL, Compensatory, Meal Prep Minutes (53414) 8 Symptoms Noted During/After Treatment (Meal Preparation/Planning [...] at sink. Therapeutic Activities Therapeutic Activity Minutes (23937) 29 Symptoms noted during/after treatment increased pain;fatigue [...] Communication Assessment Patient's communication style: spoken language (Bolivian or Bilingual) Hearing Difficulty or Deaf: no [...] Chemical Dependency Status: Values/Beliefs: Spiritual, Cultural Beliefs, Evangelical Practices, Values that affect care: Additional Information: [...] will transport at discharge. Referral sent to [facility] for home PT. Addendum Pt accepted by [facility] for home PT. AVS updated. Mili Proctor/TATIANNA Coley LGSW Inpatient Care Coordination Emergency Room Scrub Nurse/Float [phone] Mili Proctor LGSW documented in this encounter Miscellaneous Notes * Plan of Care - Luisa Montes OT - 10/27/2023 3:38 PM CDT Occupational Therapy Discharge Summary Reason for therapy discharge: Discharged to home with home therapy. Progress towards therapy goal(s). See goals on Care Plan in [facility] electronic health record for goal [...] and complete assessments, please see documentation flowsheets. [id number] Pertinent assessments: Pt A&Ox4. SBA with walker [...] shift note. Outcome: Progressing Flowsheets (Taken 10/27/2023 8177) Outcome Evaluation: Pt is passing gas & [...] shift note. Outcome: Progressing Flowsheets (Taken 10/26/2023 3412) Outcome Evaluation: had large bm, passing lots [...] shift note. Outcome: Progressing Flowsheets (Taken 10/26/2023 1264) Outcome Evaluation: ambulating in [place], pain controlled [...] RN Outcome: Progressing 10/25/2023 230 by Wes Biu RN Outcome: Progressing Goal: Blood Glucose Level [...] Transition of Care 10/25/2023 1438 by Lili Kmep RN Outcome: Progressing 10/25/2023 1348 by Lili [...] Flowsheet Documentation Taken 10/24/2023 1618 by Jeanie Acevse RN Infection Prevention: single patient room provided [...] Recent Flowsheet Documentation Taken 10/23/20231840 by Jeanie Aceevs RN Infection Prevention: single patient room provided [...] note. Outcome: Not Progressing Flowsheets (Taken 10/22/2023 4891) Outcome Evaluation: no gas yet, intermittent abdominal [...] and complete assessments, please see documentation flowsheets. [id number] Pertinent assessments: POD#2. Pt A&Ox4. On 2L NC. Afebrile.Elevated BP other VSS. C/O pain, nausea, & hiccups given prn oxy, one time order of baclofen, & zofran odt. PIV infusing LR at 75mls/hr. MARIZA drain in place with bloody output. B Major Shift Events: After taking oxy & tylenol Pt had a small emesis episode witnessed by gas charger. In addition Pt was found to have [...] shift note. Outcome: Progressing Flowsheets (Taken 10/21/2023 8076) Outcome Evaluation: Velazquez removed, Capno D/C'd. Pain [...] Fall Risk Recent Flowsheet Documentation Taken 10/21/2023 7535 by Milli Morales RN Safety Promotion/Fall Prevention: activity supervised assistive device/personal items within reach Intervention: Prevent Skin Injury Recent Flowsheet Documentation Taken 10/21/2023824 by Milli oMrales RN Body Position: position changed independently Intervention: [...] Flowsheet Documentation Taken 10/21/2023909 by Milli Morales RNsurveyor instrument assistant Interventions: medication (see MAR) Taken 10/21/2023824 by Milli Morales RNsurveyor instrument assistant Interventions: medication (see MAR) Goal: Readiness for [...] Flowsheet Documentation Taken 10/21/2023909 by Milli Morales RNsurveyor instrument assistant Interventions: medication (see MAR) Taken 10/21/2023824 by Milli Morales RNsurveyor instrument assistant Interventions: medication (see MAR) Goal: Nausea and [...] and complete assessments, please see documentation flowsheets. [id number] Pertinent assessments: POD#1. Pt A&Ox4. On 3L [...] Zaldivar RN Outcome: Progressing Goal: Anesthesia/Sedation Recovery 10/21/2023 [...] Jacobs MD - 10/20/2023 6:06 PM CDT [facility] Brief Operative Note Pre-operative diagnosis: Colonic [...] pneumatic leak testing Surgeon: Maddi Montoya MD Customer Solutions Supervisor: Kalyn Villagomez PA-C A skilled legal executive assistant was necessary due to the technical complexity of the procedure and for the patient's safety. The railways assistant helped me with positioning, retraction, visualization of the operative field, meticulous wound closure and moreover helped to complete the procedures in a technicallysafe and efficient manner. Second Customer Solutions Supervisor: Milli Jacobs MD (colorectal surgery fellow) Anesthesia: [...] gown and gloves. We placed a 19 Wol[place] Lit channel drain through the left most [...] interview completed by pre-admitting RN or pre- op/PROPERTY CARETAKER. Reviewed by pharmacist, including [facility] dispense records, [facility] Care Everywhere, and chart review. Jeffery Menard, Pharm.D., [facility] Last Reviewed by Lesa Reyes RN on 10/12/2023 at 4:31 PM ASSISTANT ELEMENTARY TEACHER Med List Medication Sig Last Dose acetaminophen [...] LAB - BLOOD ORDER CHANEL RH LABORATORY [facility] Lab [address] Lab (1st floor, no room number) [place] [address] * (ABNORMAL) CBC with platelets (10/25/2023 7:49 AM CDT) [facility] WBC Count 9.8 4.0 - 11.0 10e3/uL [...] LAB - BLOOD ORDERABL ES RH LABORATORY [facility] [address] Lab (1st floor, no room number) [place] [address], [facility] * Basic metabolic panel (10/25/2023 7:49 AM [...] LAB - BLOOD ORDERABL ES RH LABORATORY [facility] [address] Lab (1st floor, no room number) [place] [address], [facility] * XR Abdomen Port 1 View (10/23/2023 4:14 PM CDT) Anatomical Region Laterality Modality Abdomen/Pelvis Digital Radiogra phy 10/23/2023 4:14 PM CDT Impressions 10/23/2023 7:05 PM CDT IMPRESSION: Enteric tube in the body the stomach. Overall bowel loops not well assessed on this study for NG tube placement. Narrative 10/23/2023 7:05 PM CDT EXAM: XR ABDOMEN PORT 1 VIEW LOCATION: [facility] DATE: 10/23/2023 INDICATION: NG tube placement COMPARISON: None. Procedure Note Venkat Martinez MD - 10/23/2023 EXAM: XR ABDOMEN PORT 1 VIEW LOCATION: [facility] DATE: 10/23/2023 INDICATION: NG tube placement [...] MD LAB - BLOOD ORDERABL ES LABORATORY [facility] [address] Lab (1st floor, no room number) [place] [address] * XR Abdomen 2 Views (10/23/2023 9:42 [...] CDT EXAM: XR ABDOMEN 2 VIEWS LOCATION: [facility] DATE: 10/23/2023 INDICATION: Evaluate for ileus. COMPARISON: CT abdomen and pelvis 08/18/2023. Procedure Note Jillian Nicole MD - 10/23/2023 EXAM: XR ABDOMEN 2 VIEWS LOCATION: [facility] DATE: 10/23/2023 INDICATION: Evaluate for ileus. [...] MD LAB - BLOOD ORDERABL ES LABORATORY [facility] [address] Lab (1st floor, no room number) [place] [address], [facility] * Platelet count (10/23/2023 8:45 AM CDT) Platelet Count 320 150 - 450 10e3/uL 10/23/2023 9:00 AM CDT LABORATORY Blood STRUCTURE OF LEFT UPPER LIMB / Unknown Venipuncture / Unknown 10/23/2023 8:45 AM CDT 10/23/2023 8:57 AM CDT Tammy Montoya MD LAB - BLOOD ORDER CHANEL LABORATORY [facility] [address] Lab (1st floor, no room number) [place] [address] * (ABNORMAL) Glucose by meter (10/22/2023 6:13 AM CDT) GLUCOSE BY METER POCT 149(H) 70 - 99 mg/dL 10/22/2023 6:20 AM CDT LABORATORY POC Blood, Capillary BLOOD SPECIMEN / Unknown 10/22/2023 6:13 AM CDT 10/22/2023 6:20 AM CDT Tammy ALMARAZ - BEAKER POCT Performing Organization Address City/[facility]/ZIP Co de Phone Number LABORATORY [facility] Lab [address] Lab (1st floor, no room number) [place] [address] * (ABNORMAL) Glucose by meter (10/21/2023 6:35 AM CDT) GLUCOSE BY METER POCT 133(H) 70 - 99 mg/dL 10/21/2023 6:42 AM CDT LABORATORY POC Blood, Capillary BLOOD SPECIMEN / Unknown 10/21/2023 6:35 AM CDT 10/21/2023 6:42 AM CDT Tammy ALMARAZ - BEAKER POCT LABORATORY [facility] Care Lab [address] Lab (1st floor, no room number) [place] [id number] [place] [address] * Phosphorus (10/21/2023 6:22 AM CDT) Phosphorus 2.9 2.5 - 4.5 mg/dL 10/21/2023 6:58 AM CDT RH LABORATORY Blood STRUCTURE OF RIGHT UPPER LIMB / Unknown Venipuncture / Unknown 10/21/2023 6:22 AM CDT 10/21/2023 6:31 AM CDT Tammy Montoya MD LAB - BLOOD ORDER CHANEL LABORATORY [facility] [address] Lab (1st floor, no room number) [address] [place] [address] * Magnesium (10/21/2023 6:22 AM CDT) Magnesium 1.8 1.7 - 2.3 mg/dL 10/21/2023 6:58 AM CDT RH LABORATORY Blood STRUCTURE OF RIGHT UPPER LIMB / Unknown Venipuncture / Unknown 10/21/2023 6:22 AM CDT 10/21/2023 6:31 AM CDT Tammy Montoya MD LAB - BLOOD ORDER CHANEL LABORATORY [facility] [address] Lab (1st floor, no room number) [address] * (ABNORMAL) CBC with platelets (10/21/2023 [...] LAB - BLOOD ORDER CHANEL RH LABORATORY [facility] [address] Lab (1st floor, no room number) [place] [address] * (ABNORMAL) Basic metabolic panel (10/21/2023 6:22 AM CDT) [facility] Sodium 137 135 - 145 mmol/L 10/21/2023 [...] MD LAB - BLOOD ORDER CHANEL LABORATORY [facility] [address] Lab (1st floor, no room number) [address] [place] [address] * Platelet count (10/20/2023 8:56 PM CDT) Platelet Count 315 150 - 450 10e3/uL 10/20/2023 9:10 PM CDT RH LABORATORY Blood STRUCTURE OF LEFT UPPER LIMB / Unknown Venipuncture / Unknown 10/20/2023 8:56 PM CDT 10/20/2023 9:03 PM CDT Tammy Montoya MD LAB - BLOOD ORDER CHANEL LABORATORY [facility] [address] Lab (1st floor, no room number) [place] [phone] [place] [address] * Surgical Pathology Exam (10/20/2023 1:59 PM CDT) Case Report Surgical Pathology Report ? Case: [id number] ? Authorizing Provider: ??Tammy Montoya MD ?? Collected: ? 10/20/2023 01:59 PM ? Ordering Location: ? [facility] ?? Received: ?10/20/2023 02:44 PM ? [...] Colonic diverticular abscess [ICD-10-CM] 10/22/2023 2:54 PM [facility] Gross Description A(1). Large Intestine, Colon, [...] flowers-pink and contains a normal folding pattern. Concrete Block Plant Supervisor sections are submitted as follows: B1-proximal margin, en face B2-distal margin, en face P3-O1-ajuyel diverticula and mucosa B7-additional portion of bowel mucosa (MEET Oliveira) 10/22/2023 2:54 PM [facility] Microscopic Description Microscopic examination was performed. 10/22/2023 2:54 PM [facility]ORY Performing Labs The technical component of this testing was completed at [facility] 10/22/2023 2:54 PM [facility] Case Images 10/22/2023 2:54 PM T LABORATORY Polyp ASCENDING COLON STRUCTURE / Unknown 10/20/2023 1:59 PM CDT 10/20/2023 2:44 PM CDT Tissue specimen (specimen) SIGMOID COLON PART / Unknown 10/20/2023 4:32 PM CDT 10/20/2023 6:13 PM CDT Tammy ALMARAZ - KAYKAY LOPEZ [facility] Acute Care Lab [address] Lab (1st floor, no room number) [place] [address] * COLONOSCOPY (10/20/2023 1:02 PM CDT) Pathologist [facility] COLONOSCOPY [facility] Patient Name: Christi Santa Talongarth ? Procedure [...] and ?oxygen saturations were monitored continuously. The ?uShare Adult Colonoscope, Model # CF-ES571I, ?Censitrac # [id number] was introduced through the ?anus and advanced [...] Procedure Code(s): ? --- Professional --- ? 13336, Colonoscopy, flexible; with removal of tumor(s), polyp(s), or ? other lesion(s) by snare technique CPT copyright 2021 [employer]. All rights reserved. The codes documented in this report are preliminary and upon checker bakery products review may be revised to meet current compliance requirements. TAMMY MONTOYA MD 10/22/2023 5:35:05 PM I was physically present for the entire viewing portion of the exam. TAMMY MONTOYA MD Number of Addenda: 0 Note Initiated On: 10/20/2023 1:02 PM MRN: ?[id number] Procedure Date: ? 10/20/2023 1:02:04 PM Scope [...] AM CDT [facility] Acute Care Lab [address] Lab (1st floor, no room number) [place] [address], [facility] * EKG CARDIAC - HIM SCAN (10/06/2023 [...] analgesic side effects. Hold while on IV CHARGE MASTER ANALYST or with regular IV opioid dosing. $Given [...] analgesic side effects. Hold while on IV CHARGE MASTER ANALYST or with regular IV opioid dosing. $Given [...] analgesic side effects. Hold while on IV CHARGE MASTER ANALYST or with regular IV opioid dosing. 0435 [...] analgesic side effects. Hold while on IV CHARGE MASTER ANALYST or with regular IV opioid dosing. 0435 [...] analgesic side effects. Hold while on IV CHARGE MASTER ANALYST or with regular IV opioid dosing. Or oxyCODONE (ROXICODONE) tablet 10 mgJump to med 10 mg, Oral, EVERY 4 HOURS PRN, severe pain, Starting on Wed10/20/23 at 2038, Hold oral PRN dose for analgesic side effects. Notify provider to assess for uncontrolled pain or analgesic side effects. Hold while on IV CHARGE MASTER ANALYST or with regular IV opioid dosing. documented in this encounter Care Teams Puncher And Fastener Relationship Specialty Start Date End Date Sarina Mello MD [facility] [address] [place] [address] PCP - General Family Medicine 10/20/23 documented as of this encounter
--- OUTSIDE RECORDS SUMMARY | 2023-11-15 12:51 | XMS_ITS | Referral Summary ---
Author Name Unknown Organization [place] Address [address] [place] [address]. [place] [address] Care Team Providers Care Education Department Chair Name Role Phone Juan Pablo Buckley MD Primary Care Provider [phone] Encounters Date Type Department Care Team Description 10/20/2023 10:11 AM CDT - 10/27/2023 3:38 PM CDT Hospital Encounter [place] [address] Medical Surgical [address] [address] Tammy Montoya MD S/P colectomy (Primary Dx) Discharge Disposition: Home-Health Care [facility] [place] 10/20/2023 1:30 PM CDT Anesthesia Event [facility] [address] [place] [address] Brandon Gold MD 10/20/2023 Travel 10/20/2023 12:50 PM CDT - 10/20/2023 6:30 PM CDT Surgery [facility] [address] [phone] Tammy Montoya MD Intraoperative colonoscopy 10/12/2023 Travel 08/18/2023 9:47 PM ESTIMATING ENGINEER - 08/21/2023 1:51 PM ESTIMATING ENGINEER Hospital Encounter [facility] General Surgery [address] [phone] Luisa Mendoza MD Schneider, Jun Zapata MD Clostridioides difficile infection (Primary Dx); Pancolitis (H); Intra-abdominal abscess (H); C. difficile colitis Discharge Disposition: Home-Health Care [facility] [place] 08/20/2023 Hospital Encounter [facility] [address] [place] [phone] Mauricio Padilla MD Colonic diverticular abscess 08/18/2023 Travel 08/18/2023 Orders Only [facility] [address] [place] [phone] Tammy Montoya MD C. difficile diarrhea (Primary Dx) 08/17/2023 Orders Only [facility] [address] [place] [phone] Tammy Montoya MD from Last 3 Months [...] PLATELETS & DIFFERENTIAL Routine 08/21/2023 7:42 AM ESTIMATING ENGINEER CBC WITH PLATELETS AND DIFFERENTIAL Routine 08/21/2023 7:42 AM ESTIMATING ENGINEER BASIC METABOLIC PANEL Routine 08/21/2023 7:42 AM ESTIMATING ENGINEER PHOSPHORUS Routine 08/21/2023 7:42 AM ESTIMATING ENGINEER POTASSIUM Timed 08/20/2023 10:02 PM ESTIMATING ENGINEER CBC WITH PLATELETS & DIFFERENTIAL Routine 08/20/2023 7:00 AM ESTIMATING ENGINEER CBC WITH PLATELETS AND DIFFERENTIAL Routine 08/20/2023 7:00 AM ESTIMATING ENGINEER PHOSPHORUS Routine 08/20/2023 7:00 AM ESTIMATING ENGINEER BASIC METABOLIC PANEL Routine 08/20/2023 7:00 AM ESTIMATING ENGINEER PHOSPHORUS Routine 08/19/2023 3:45 PM ESTIMATING ENGINEER ROUTINE UA WITH MICROSCOPIC REFLEX TO CULTURE Routine 08/19/2023 2:55 AM ESTIMATING ENGINEER C. DIFFICILE ANTIGEN AND TOXINS A/B BY ENZYME IMMUNOASSAY STAT 08/18/2023 11:41 PM ESTIMATING ENGINEER C. DIFFICILE TOXIN B PCR WITH REFLEX TO C. DIFFICILE ANTIGEN AND TOXINS A/B EIA STAT 08/18/2023 11:[address] ABDOMEN PELVIS W/O & W CONTRAST STAT 08/18/2023 8:56 PM ESTIMATING ENGINEER CBC WITH PLATELETS & DIFFERENTIAL STAT 08/18/2023 7:11 PM ESTIMATING ENGINEER CBC WITH PLATELETS AND DIFFERENTIAL STAT 08/18/2023 7:11 PM ESTIMATING ENGINEER COMPREHENSIVE METABOLIC PANEL STAT 08/18/2023 7:11 PM ESTIMATING ENGINEER MAGNESIUM STAT 08/18/2023 7:11 PM ESTIMATING ENGINEER from Last 3 Months Results * Platelet count (10/26/2023 6:08 AM CDT) Only the most recent of3 resultswithin the time period is included. Platelet Count 345 150 - 450 10e3/uL 10/26/2023 6:20 AM CDT LABORATORY Blood STRUCTURE OF RIGHT UPPER LIMB / Unknown Venipuncture / Unknown 10/26/2023 6:08 AM CDT 10/26/2023 6:17 AM CDT Tammy Montoya MD LAB - BLOOD ORDER CHANEL LABORATORY [facility] Acute Care Lab [address] [facility] Lab (1st floor, no room number) [place] [address] * Basic metabolic panel (10/25/2023 7:49 AM [...] LAB - BLOOD ORDERABL ES RH LABORATORY [facility] Acute Care Lab [address] [facility] Lab (1st floor, no room number) [place] [address], [facility] * (ABNORMAL) CBC with platelets (10/25/2023 [...] MD LAB - BLOOD ORDERABL ES LABORATORY [facility] Lab [address] Lab (1st floor, no room number) [place] [address] * XR Abdomen Port 1 View (10/23/2023 4:14 PM CDT) Anatomical Region Laterality Modality Abdomen/Pelvis Digital Radiogra phy 10/23/2023 4:14 PM CDT Impressions 10/23/2023 7:05 PM CDT IMPRESSION: Enteric tube in the body the stomach. Overall bowel loops not well assessed on this study for NG tube placement. Narrative 10/23/2023 7:05 PM CDT EXAM: XR ABDOMEN PORT 1 VIEW LOCATION: [facility] DATE: 10/23/2023 INDICATION: NG tube placement COMPARISON: None. Procedure Note Venkat Martinez MD - 10/23/2023 EXAM: XR ABDOMEN PORT 1 VIEW LOCATION: [facility] DATE: 10/23/2023 INDICATION: NG tube placement [...] CDT EXAM: XR ABDOMEN 2 VIEWS LOCATION: [facility] DATE: 10/23/2023 INDICATION: Evaluate for ileus. COMPARISON: CT abdomen and pelvis 08/18/2023. Procedure Note Jillian Nicole MD - 10/23/2023 EXAM: XR ABDOMEN 2 VIEWS LOCATION: [facility] DATE: 10/23/2023 INDICATION: Evaluate for ileus. [...] of3 resultswithin the time period is included. [facility] GLUCOSE BY METER POCT 149(H) 70 - 99 mg/dL 10/22/2023 6:20 AM CDT LABORATORY POC Blood, Capillary BLOOD SPECIMEN / Unknown 10/22/2023 6:13 AM CDT 10/22/2023 6:20 AM CDT Tammy ALMARAZ - REGINOAKER POCT RH LABORATORY [facility] Acute Care Lab [address] Lab (1st floor, no room number) [place] [phone] [place] [address] * Phosphorus (10/21/2023 6:22 AM CDT) Only the most recent of4 resultswithin the time period is included. Phosphorus 2.9 2.5 - 4.5 mg/dL 10/21/2023 6:58 AM CDT RH LABORATORY Blood STRUCTURE OF RIGHT UPPER LIMB / Unknown Venipuncture / Unknown 10/21/2023 6:22 AM CDT 10/21/2023 6:31 AM CDT Tammy Montoya MD LAB - BLOOD ORDER CHANEL [facility] Acute Care Lab [address] [employer] Lab (1st floor, no room number) [address] * Magnesium (10/21/2023 6:22 AM CDT) Only the most recent of2 resultswithin the time period is included. Magnesium 1.8 1.7 - 2.3 mg/dL 10/21/2023 6:58 AM CDT RH LABORATORY Blood STRUCTURE OF RIGHT UPPER LIMB / Unknown Venipuncture / Unknown 10/21/2023 6:22 AM CDT 10/21/2023 6:31 AM CDT Tammy Montoya MD LAB - BLOOD ORDER CHANEL Performing Organization Address City/[facility]/ZIP Co de Phone Number [facility] Acute Care Lab [address] Lab (1st floor, no room number) [address] * Surgical Pathology Exam (10/20/2023 1:59 PM CDT) Case Report Surgical Pathology Report ? Case: [id number] ? Authorizing Provider: ??Tammy Montoya MD ?? Collected: ? 10/20/2023 01:59 PM ? Ordering Location: ? [facility] ?? Received: ?10/20/2023 02:44 PM ? Main [...] flowers-pink and contains a normal folding pattern. Foreign Trade Teacher sections are submitted as follows: B1-proximal margin, en face B2-distal margin, en face N3-E9-jhdcfy diverticula and mucosa B7-additional portion of bowel mucosa (MEET Oliveira) 10/22/2023 2:54 PM CDT LABORATORY Microscopic Description Microscopic examination was performed. 10/22/2023 2:54 PM T LABORATORY Performing Labs The technical component of this testing was completed at [facility] 10/22/2023 2:54 PM CDT LABORATORY Case Images 10/22/2023 2:54 PM CDT LABORATORY Polyp ASCENDING COLON STRUCTURE / Unknown 10/20/2023 1:59 PM CDT 10/20/2023 2:44 PM CDT Tissue specimen (specimen) SIGMOID COLON PART / Unknown 10/20/2023 4:32 PM CDT 10/20/2023 6:13 PM CDT Tammy MCCRACKEN [facility] Acute Care Lab [address] [facility] Lab (1st floor, no room number) [place] [address], [facility] * ANE AIRWAY ETT PERFORMABLE (10/20/2023 1:46 PM CDT) Narrative Layla Abdullahi APRN ROOF TILE LAYER - 10/20/2023 1:46 PM CDT Layla Abdullahi APRN CRNA ? 10/20/2023 ??1:52 PM Airway ? Patient location during procedure: OR ? Procedure Start/Stop Times: 10/20/2023 1:46 PM Staff - ? Anesthesiologist: ??Layla Abdullahi APRN ROOF TILE LAYER ? Performed By: ROOF TILE LAYER Consent for Airway ? Urgency: elective Indications [...] Time: 10/20/2023 1:46 PM Brandon Gold MD [place] [facility] * COLONOSCOPY (10/20/2023 1:02 PM CDT) Pathologist [facility] COLONOSCOPY [facility] Patient Name: Theodore Wu ? Procedure Date: 10/20/2023 1:02 PM ? Date of : 1945 ?Admit Type: Inpatient Age: 78 ? Gender: Male Attending MD: TAMMY MONTOYA MD, ??Total Sedation Time: per anesthesia record. Instrument Name: 223 - Adult Colonoscope Procedure: ?Colonoscopy Indications: ?Screening for colorectal malignant neoplasm, ?Incidental - Follow-up of diverticulitis Providers: ?ATMMY MONTOYA MD (Doctor) Referring MD: ? Medicines: [...] continuously. The ?Olympus Adult Colonoscope, Model # CF-QL799Q, ?Censitrac # [id number] was introduced through the ?anus and advanced [...] Procedure Code(s): ? --- Professional --- ? 14884, Colonoscopy, flexible; with removal of tumor(s), polyp(s), or ? other lesion(s) by snare technique CPT copyright 2022 [employer]. All rights reserved. The codes documented in this report are preliminary and upon local company refrigerated truck driver review may be revised to meet current compliance requirements. TAMMY MONTOYA MD 10/22/2023 5:35:05 PM I was physically present for the entire viewing portion of the exam. TAMMY MONTOYA MD Number of Addenda: 0 Note Initiated On: 10/20/2023 1:02 PM MRN: ?[id number] Procedure Date: ? 10/20/2023 1:02:04 PM Scope [...] with platelets and differential (08/21/2023 7:42 AM ESTIMATING ENGINEER) Only the most recent of3 resultswithin the time period is included. WBC Count 8.9 4.0 - 11.0 10e3/uL 08/21/2023 7:56 AM ESTIMATING ENGINEER LABORATORY RBC Count 4.30(L) 4.40 - 5.90 10e6/uL 08/21/2023 7:56 AM ESTIMATING ENGINEER LABORATORY Hemoglobin 13.0(L) 13.3 - 17.7 g/dL 08/21/2023 7:56 AM ESTIMATING ENGINEER LABORATORY Hematocrit 38.4(L) 40.0 - 53.0 % 08/21/2023 7:56 AM [facility] MCV 89 78 - 100 fL 08/21/2023 7:56 AM [facility] MCH 30.2 26.5 - 33.0 pg 08/21/2023 7:56 AM [facility] MCHC 33.9 31.5 - 36.5 g/dL 08/21/2023 7:56 AM [facility] RDW 13.8 10.0 - 15.0 % 08/21/2023 7:56 AM [facility] Platelet Count 136(L) 150 - 450 10e3/uL 08/21/2023 7:56 AM [facility] % Neutrophils 67 % 08/21/2023 7:56 AM [facility] % Lymphocytes 22 % 08/21/2023 7:56 AM [facility] % Monocytes 9 % 08/21/2023 7:56 AM [facility] % Eosinophils 1 % 08/21/2023 7:56 AM [facility] % Basophils 0 % 08/21/2023 7:56 AM [facility] % Immature Granulocytes 1 % 08/21/2023 7:56 AM [facility] NRBCs per 100 WBC 0 <1 /100 024 7:56 AM [facility] Absolute Neutrophils 6.0 1.6 - 8.3 10e3/uL 08/21/2023 7:56 AM [facility] Absolute Lymphocytes 2.0 0.8 - 5.3 10e3/uL 08/21/2023 7:56 AM [facility] Absolute Monocytes 0.8 0.0 - 1.3 10e3/uL 08/21/2023 7:56 AM [facility] Absolute Eosinophils 0.1 0.0 - 0.7 10e3/uL 08/21/2023 7:56 AM [facility] Absolute Basophils 0.0 0.0 - 0.2 10e3/uL 08/21/2023 7:56 AM [facility] Absolute Immature Granulocytes 0.1 <=0.4 10e3/uL 08/21/2023 7:56 AM [facility] Absolute NRBCs 0.0 10e3/uL 08/21/2023 7:56 AM [facility] Blood BLOOD SPECIMEN / Unknown Venipuncture / Unknown 08/21/2023 7:42 AM ESTIMATING ENGINEER 08/21/2023 7:48 AM ESTIMATING ENGINEER Chris Marie MD LAB - BLOOD ORDERAB LES LABORATORY [facility] [address] 1[address] floor, [address] [place] [address], [place] [phone] * Potassium (08/20/2023 10:02 PM ESTIMATING ENGINEER) Potassium 3.6 3.4 - 5.3 mmol/L 08/20/2023 10:20 PM [facility] Blood STRUCTURE OF LEFT UPPER LIMB / Unknown Venipuncture / Unknown 08/20/2023 10:02 PM ESTIMATING ENGINEER 08/20/2023 10:07 PM ESTIMATING ENGINEER Jun Leone MD LAB - BLOOD OR DERABLES Performing Organization Address City/[facility]/ZIP Co de Phone Number LABORATORY [facility] [address] 1[address] floor, [address] [place] [address], [place] [phone] * (ABNORMAL) UA with Microscopic reflex to Culture (08/19/2023 2:55 AM ESTIMATING ENGINEER) Color Urine Light Yellow Colorless, Straw, Light Yellow, Yellow 08/19/2023 3:13 AM [facility] Appearance Urine Clear Clear 08/19/19 3:13 AM [facility] Glucose Urine Negative Negative mg/dL 08/19/2023 3:13 AM [facility] Bilirubin Urine Negative Negative 3:13 AM [facility] Ketones Urine 10(A) Negative mg/dL 08/19/2023 3:13 AM [facility] Specific Bloomer Urine 1.015 1.003 - 1.035 STEPHEN 08/19/2023 3:13 AM [facility] Blood Urine Negative Negative 08/19/2023 3:13 AM [facility] pH Urine 5.5 5.0 - 7.0 08/19/2023 3:13 AM [facility] Protein Albumin Urine Negative Negative mg/dL 08/19/2023 3:13 AM [facility] Urobilinogen Urine Normal Normal, 2.0 mg/dL 08/19/2023 3:13 AM ESTIMATING ENGINEER LABORATORY Nitrite Urine Negative Negative 08/19/2023 3:13 AM ESTIMATING ENGINEER LABORATORY Leukocyte Esterase Urine Negative Negative 08/19/2023 3:13 AM ESTIMATING ENGINEER LABORATORY Mucus Urine Present(A) None Seen /LPF 08/19/2023 3:13 AM ESTIMATING ENGINEER LABORATORY RBC Urine 1 <=2 /HPF 08/19/2023 3:13 AM ESTIMATING ENGINEER LABORATORY WBC Urine 1 <=5 /HPF 08/19/2023 3:13 AM ESTIMATING ENGINEER LABORATORY Urine URINE SPECIMEN OBTAINED BY CLEAN CATCH PROCEDURE / Unknown Non-blood Collection / Unknown 08/19/2023 2:55 AM ESTIMATING ENGINEER 08/19/2023 3:05 AM ESTIMATING ENGINEER Narrative [facility] LAB[facility]ATORY - 08/19/2023 3:13 AM ESTIMATING ENGINEER Urine Culture not indicated Jun Leone MD LAB - URINE OR DERABLES SH LABORATORY [facility] Acute [facility] Lab [address] 1[address], [address] [place] [address], [facility] [phone] * (ABNORMAL) C. difficile Antigen and Toxins A/B by Enzyme Immunoassay (08/18/2023 11:41 PM ESTIMATING ENGINEER) C. difficile GDH Antigen Positive(A ) Negative STEPHEN 08/19/2023 6:00 AM ESTIMATING ENGINEER [facility] C. difficile Toxin Positive(A ) Negative STEPHEN 08/19/2023 6:00 AM ESTIMATING ENGINEER [facility] Stool RECTAL CONTENTS / Unknown Non-blood Collection / Unknown 08/18/2023 11:41 PM ESTIMATING ENGINEER 08/18/2023 11:51 PM ESTIMATING ENGINEER Narrative [facility] - 08/19/2023 6:00 AM ESTIMATING ENGINEER C. difficile GDH antigen and C. difficile toxin were detected by enzyme immunoassay. Results must be interpreted based on clinical findings and are supportive of C. difficile infection. Luisa Mendoza MD LAB - MICRO GENERAL ORDERABLES [facility] Inf. Diseases Diag. Lab [address] [facility], [address] [place] [address], [facility] [phone] * (ABNORMAL) C. difficile Toxin B PCR with reflex to C. difficile Antigen and Toxins A/B EIA (08/18/2023 11:41 PM ESTIMATING ENGINEER) C Difficile Toxin B by PCR Positive( A) Negative 08/19/2023 5:02 AM ESTIMATING ENGINEER [facility] Comment: Detection of C. [...] Non-blood Collection / Unknown 08/18/2023 11:41 PM ESTIMATING ENGINEER 08/18/2023 11:51 PM ESTIMATING ENGINEER Narrative [facility] - 08/19/2023 5:02 AM ESTIMATING ENGINEER The [employer] Xpert C. difficile Assay, performed on the Interactive [employer] Instrument Systems, is a qualitative in vitro [...] [facility] Lab [address] [facility], [address] [place] [address], [facility] [phone] * CT Abdomen Pelvis w/o & w Contrast (08/18/2023 8:56 PM ESTIMATING ENGINEER) Anatomical Region Laterality Modality Abdomen/Pelvis, SUBRAD CT SISSY DY, UMP CT ABDOMEN PELVIS, RAD CT Computed Tomography 08/18/2023 8:56 PM ESTIMATING ENGINEER Impressions 08/18/2023 9:14 PM ESTIMATING ENGINEER IMPRESSION: 1. ??Pancolitis, likely infectious or inflammatory. [...] Correlate with urinalysis. Narrative 08/18/2023 9:14 PM ESTIMATING ENGINEER EXAM: CT ABDOMEN PELVIS W/O and W CONTRAST LOCATION: [facility] DATE: 08/18/2023 INDICATION: Diarrhea. Concern for [...] PELVIS W/O and W CONTRAST LOCATION: [facility] DATE: 08/18/2023 INDICATION: Diarrhea. Concern for [...] * Comprehensive metabolic panel (08/18/2023 7:11 PM ESTIMATING ENGINEER) [facility] Sodium 140 135 - 145 mmol/L 08/18/2023 8:14 PM [facility] Comment:Reference intervals for this test were updated on 04/20/2023 to more accurately reflect our healthy population. There may be differences in the flagging of prior results with similar values performed with this method. Interpretation of those prior results can be made in the context of the updated reference intervals. Potassium 3.8 3.4 - 5.3 mmol/L 08/18/2023 8:14 PM [facility] Carbon Dioxide (CO2) 25 22 - 29 mmol/L 08/18/2023 8:14 PM [facility] Anion Gap 11 7 - 15 mmol/L 08/18/2023 8:14 PM [facility] Urea Nitrogen 16.8 8.0 - 23.0 mg/dL 08/18/2023 8:14 PM [facility] Creatinine 0.80 0.67 - 1.17 mg/dL 08/18/2023 8:14 PM [facility] GFR Estimate 90 >60 mL/min/1. 73m2 08/18/2023 8:14 PM [facility] Calcium 9.0 8.8 - 10.2 mg/dL 08/18/2023 8:14 PM [facility] Chloride 104 98 - 107 mmol/L 08/18/2023 8:14 PM [facility] Glucose 82 70 - 99 mg/dL 08/18/2023 8:14 PM [facility] Alkaline Phosphatase 86 40 - 150 U/L 08/18/2023 8:14 PM [facility] Comment:Reference intervals for this test were updated on 06/08/2023 to more accurately reflect our healthy population. There may be differences in the flagging of prior results with similar values performed with this method. Interpretation of those prior results can be made in the context of the updated reference intervals. AST 23 0 - 45 U/L 08/18/2023 8:14 PM [facility] Comment:Reference intervals for this test were updated on 01/04/2023 to more accurately reflect our healthy population. There may be differences in the flagging of prior results with similar values performed with this method. Interpretation of those prior results can be made in the context of the updated reference intervals. ALT 22 0 - 70 U/L 08/18/2023 8:14 PM [facility] Comment:Reference intervals for this test were updated on 01/04/2023 to more accurately reflect our healthy population. There may be differences in the flagging of prior results with similar values performed with this method. Interpretation of those prior results can be made in the context of the updated reference intervals. Protein Total 6.7 6.4 - 8.3 g/dL 08/18/2023 8:14 PM [facility] Albumin 3.5 3.5 - 5.2 g/dL 08/18/2023 8:14 PM [facility] Bilirubin Total 0.5 <=1.2 mg/dL 08/18/2023 8:14 PM [facility] Blood BLOOD SPECIMEN / Unknown Venipuncture / Unknown 08/18/2023 7:11 PM ESTIMATING ENGINEER 08/18/2023 7:42 PM ESTIMATING ENGINEER Luisa Mendoza MD LAB - BLOOD ORDERABL ES LABORATORY [facility] Lab [address], [address] [place] [address], [facility] [phone] from Last 3 Months Advance Directives For more information, please contact: [phone] * Full Code (Latest Code Status on [...] patie nt/ legal decision maker Care Teams Education Department Chair Relationship Specialty Start Date End Date Juan Pablo Buckley MD [facility] [address] [place] [address] PCP - General Family Medicine 10/20/23
--- OUTSIDE RECORDS SUMMARY | 2023-11-15 12:52 | XMS_ITS ---
Author Name Unknown Organization [facility] [facility] Address [address] [place] [address] Care Team Providers Care Occupational Health Physician Name Role Phone Juan Pablo Buckley MD Primary Care Provider [phone] Transitional Care Management Status:Closed (Closed) Start date:08/23/2023 Enrollment date:08/24/2023 End date:09/06/2023 Close reason:Goals met Continued Care and Services Coordination
--- OUTSIDE RECORDS SUMMARY | 2023-11-15 12:52 | XMS_ITS | Clinical Summary ---
Author Name Unknown Organization [facility] Address [place], [place] [address] Care Team Providers Care On Air Personality Name Role Phone Marco A Buckley MD Primary Care Provider [phone] Allergies No known active allergies Medications Medication [...] Comments Blood Pressure 147/74 07/09/2020 3:17 PM BRIM PRESSER Pulse 77 07/09/2020 3:17 PM BRIM PRESSER Temperature 36.3 ??C (97.4 ??F) 10/21/2015 9:36 AM CD T Respiratory Rate - - Oxygen Saturation 100% 07/09/2020 3:17 PM BRIM PRESSER Inhaled Oxygen Concentration - - Weight 85.4 kg (188 lb 3.2 oz) 07/09/2020 3:17 P M BRIM PRESSER Height 172.1 cm (5' 7.75) 10/21/2015 9:36 [...] Influenza for age 65+ 03/26/2024 Care Teams On Air Personality Relationship Specialty Start Date End Date Marco A Buckley MD PCP - General Family Practice 03/18/23
--- OUTSIDE RECORDS SUMMARY | 2023-11-15 12:52 | XMS_ITS | Encounter Summary ---
Author Name Unknown Organization [place] Address [facility] [place] [address] Care Team Providers Care Media Manager Name Role Phone Juan Pablo Buckley MD Primary Care Provider [phone] 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] Procedures WV COLONOSCOPY W/WO BRUSH/WASH WV LAP,SURG,COLECTOMY, PARTIAL, W/ANAST WV LAP,SURG,COLECTOMY,W/REMVL TERM ILEUM WV LAP,SURG,COLECTOMY,W/END COLOST & CLOSUR WV LAP,SURG,COLECTOMY,W/ANAST WV LAP, SURG, COLECTOMY, W/ANAST, W/COLOSTOMY WV LAP,SURG,COLECTOMY,TOTAL,W/O PROCTECTOMY WV LAP,SURG,COLECTOMY,TOTAL,W/PRO CTECTOMY WV LAP,SURG,COLECT,TOT,W/PROCTECT ,W/ILEOST WV PART REMOVAL COLON W ANASTOMOSIS WV PART REMOVAL COLON W COLOSTOMY WV PART REMOVAL COLON W END COLOSTOMY WV PART REMOVAL COLON W OSTOMY/MUCOFIST WV PART REMOVAL COLON W COLOPROCTOSTOMY WV PART REMOVAL COLON W COLOPROC,COLOST WV PART REMOVAL COLON,ABD/TRANSANAL TRAVIS WV REMOVAL COLON/ILEOSTOMY [facility] REMOVAL COLON/ILEOSTOMY,CONTINENT WV REMOVAL COLON/PROCTECTOMY/ILEOSTOMY [facility] REMOVAL COLON/PROCTEC/ILEOSTOMY CONT [facility] REMOVAL COLON/PROCTEC/ ILEOANAL ANAST WV REMOVAL COLON/PROCTEC/ILEOANAL ANAST POUCH WV REMVL COLON/TERM ILEUM/ILEOCOLOSTOMY Intraoperative colonoscopy robotic sigmoid colectomy possible open, possible stoma [facility] [address] [place] [address] Referral ID Status Reason Start Date Expiration Date Visits Re quested Visits Authorized [id number] 1 1 Encounter Details Date Type Department Care Team (Late st Contact Info) Description 10/20/2023 12:50 PM CDT - 10/20/2023 6:30 PM CDT Surgery [facility] [address] [place] [id number] Tammy Montoya MD COLO & RECTAL SURGERY [address] [id number] Intraoperative colonoscopy Surgery Details Date/Time Status Location [...] Role Service Panel Kalyn Villagomez PA-C Assisting Rehabilitation Nurse Authori zation 1 Tammy Montoya MD Primary General 1 Milli Jacobs MD Fellow - Assisting [place]-Rectal 1 Special Needs 4hr req documented in [...] - 10/27/2023 1:28 PM CDT [facility] Discharge Summary Christi Wu Age: [age] year old Date of : 1945 Date of Admission: 10/20/2023 Date of Discharge:: 10/27/2023 Admitting Physician: Tammy Montoya MD Discharge Physician: Tammy Montoya MD PCP: Juan Pablo Buckley Disposition: Patient discharged from [facility] to home in stable condition. Primary Diagnosis: [...] No DVT No PE No CVA No FL No Enterocutaneous fistula No Peripheral nerve injury [...] Your home care referral was sent to [facility] If you haven't heard from them within the next 24-48 hours, Please call them at [phone] documented in this encounter Medications at Time [...] yes Persons Notified of Discharge Plans: Home [facility] Patient/Family in Agreement with the Plan: yes Handoff Referral Completed: No Additional Information: The pt will discharge home today with resumption of [facility] PT services. Sw updated [facility] on the pt's discharge today and faxed them the pt's discharge orders P:[phone] F: [phone]. Sw will continue to be available as needed until discharge. Sonia Small, TATIANNA, [facility] Inpatient Care Coordination [facility] [phone] * Lexie Bang PT - 10/27/2023 1:52 [...] See goals on Care Plan in [facility] electronic health record for goal details. Goals [...] questions/paging, please contact the CRS office at [phone]. Galen Moffett PA-C Colon & Rectal Surgery [...] Intake/Output Summary (Last 24 hours) at 10/26/2023 0904 Last data filed at 10/26/2023 0511 Gross [...] questions/paging, please contact the CRS office at [phone]. Galen Moffett PA-C [facility] Associated attestation - Laura Rojo MD - 10/26/2023 1:08 PM CDT Physician Attestation I saw and evaluated Christi Wu as part of a shared BEAUTY COUNSELOR/PA visit. I personally reviewed the vital signs, [...] questions/paging, please contact the CRS office at [phone]. Galen Moffett PA-C [facility] CRS Staff. Seen and examined independently. Agree with above. I performed a history and physical examination of the patient and discussed their management with the physician automotive service assistant. I reviewed the physician assistants note and agree with the documented findings and plan of care. MD JEANE Villegas Colorectal Surgeon [facility] [address] , [address] [place] [address] T: [phone] F: [phone] Pager: [phone] [email or web address] * Adán Mcneal MD - 10/24/2023 [...] Colorectal Surgeon [facility] [address] , [address] [place] [address] T: [phone] F: [phone] Pager: [phone] [email or web address] Interval History: Xray demonstrating some ileus [...] Colorectal Surgeon [facility] [address], [address] [place] [address] T: [phone] F: [phone] Pager: [phone] [email or web address] Interval History: Hypertensive overnight. Reports bloating and [...] PLT 315 10/20/2023 PLT 136 (L) 08/21/2023 [facility] Recent Labs Lab Test 10/22/23 0613 10/21/23 [...] needed, minimize narcotics - Encourage ambulation - [facility] for ppx Disposition: Expected discharge in 1-2 days. Barriers to discharge: Tolerating low fiber diet, pain controlled with oral meds, return of bowel function. Clinically Significant Risk Factors # Financial/Environmental Concerns: For questions/paging, please contact the CRS office at [phone]. Kalyn Villagomez PA-C Colon & Rectal Surgery [...] Evaluation Time PT Eval, Moderate Complexity Minutes (49093) 10 Physical Therapy Goals PT Frequency Daily PT Predicted Duration/Target Date for Goal Attainment 10/27/23 PT Goals Bed Mobility;Transfers;Gait PT: Bed Mobility Supine to/from sit;Rolling;Within precautions;Independent PT: Transfers Modified independent;Bed to/from chair;Sit to/from stand;Assistive device;Within precautions PT: Gait Supervision/stand-by assist;Rolling walker;150 feet Interventions Interventions Quick Adds Therapeutic Activity;Gait Training Therapeutic Activity Therapeutic Activities: dynamic activities to improve functional performance Minutes (16326) 8 Symptoms Noted During/After Treatment Increased pain;Fatigue [...] of session. Gait Training Gait Training Minutes (19715) 8 Symptoms Noted During/After Treatment (Gait Training) [...] needed, minimize narcotics - Encourage ambulation - [facility] for ppx For questions/paging, please contact the CRS office at [phone]. Kalyn Villagomez PA-C [facility] Associated attestation - Laura Rooj MD - 10/21/2023 6:45 PM CDT Physician Attestation I saw and evaluated Christi Wu as part of a shared BEAUTY COUNSELOR/PA visit. I personally reviewed the vital signs, [...] Multimodal pain control Encourage ambulation SCDs and [facility] for DVT prophylaxis. Laura Rojo MD Date of Service (when I saw the patient): 10/21/23 * Saul Ayo Jonah, OTR - 10/21/2023 9:40 AM CDT 10/21/23 0835 Appointment Info Signing Clinician's Name / Credentials (OT) Ayo Hughes OTR/L Living Environment People in Home spouse Current Living Arrangements [facility] Home Accessibility no concerns Self-Care Usual [...] weakness Bed Mobility Bed Mobility supine-sit;sit-supine Supine-Sit Howe (Bed Mobility) minimum assist (75% patient effort) Sit-Supine Howe (Bed Mobility) minimum assist (75% patient effort) Transfers Transfers sit-stand transfer;toilet transfer Sit-Stand Transfer Sit-Stand Howe (Transfers) supervision Toilet Transfer Howe Level (Toilet Transfer) supervision Balance Balance Comments Benefits from FWW, history of falls. Activities of Daily Living BADL Assessment/Intervention lower body dressing;grooming Lower Body Dressing Assessment/Training Howe Level (Lower Body Dressing) contact guard assist Grooming Assessment/Training Howe Level (Grooming) supervision Clinical Impression Criteria for [...] Evaluation Time OT Eval, Low Complexity Minutes (49738) 10 OT Goals Therapy Frequency (OT) Daily [...] Management Self-Care/Home Mgmt/ADL, Compensatory, Meal Prep Minutes (11374) 8 Symptoms Noted During/After Treatment (Meal Preparation/Planning [...] at sink. Therapeutic Activities Therapeutic Activity Minutes (06993) 29 Symptoms noted during/after treatment increased pain;fatigue [...] Communication Assessment Patient's communication style: spoken language (Kiswahili or Bilingual) Hearing Difficulty or Deaf: no [...] Chemical Dependency Status: Values/Beliefs: Spiritual, Cultural Beliefs, Jainism Practices, Values that affect care: Additional Information: [...] will transport at discharge. Referral sent to [facility] hub for home PT. Addendum Pt accepted by Home [facility] for home PT. AVS updated. Mili Proctor/TATIANNA Coley, JAIMEE Inpatient Care Coordination Emergency Room Electric Pile Driver Operator/Float [phone] Mili Proctor LGSW documented in this encounter Miscellaneous Notes * Plan of Care - Luisa Montes OT - 10/27/2023 3:38 PM CDT Occupational Therapy Discharge Summary Reason for therapy discharge: Discharged to home with home therapy. Progress towards therapy goal(s). See goals on Care Plan in [facility] electronic health record for goal details. Patient [...] and complete assessments, please see documentation flowsheets. [id number] Pertinent assessments: Pt A&Ox4. SBA with walker [...] shift note. Outcome: Progressing Flowsheets (Taken 10/27/2023 9650) Outcome Evaluation: Pt is passing gas & [...] shift note. Outcome: Progressing Flowsheets (Taken 10/26/2023 0872) Outcome Evaluation: had large bm, passing lots [...] shift note. Outcome: Progressing Flowsheets (Taken 10/26/2023 0548) Outcome Evaluation: ambulating in [place], pain controlled [...] Flowsheet Documentation Taken 10/25/2023 0916 by Lili Kepm RN Safety Promotion/Fall Prevention: safety round/check completed [...] Documentation Taken 10/25/2023 0916 by Lili Kemp, water softener installer Interventions: rest medication (see MAR) Goal: Nausea [...] Risk Recent Flowsheet Documentation Taken 10/23/20231840 by Jeanei Aceves RN VTE Prevention/Management: SCDs (sequential compression [...] and complete assessments, please see documentation flowsheets. [id number] Pertinent assessments: POD#2. Pt A&Ox4. On 2L NC. Afebrile.Elevated BP other VSS. C/O pain, nausea, & hiccups given prn oxy, one time order of baclofen, & zofran odt. PIV infusing LR at 75mls/hr. MARIZA drain in place with bloody output. B Major Shift Events: After taking oxy & tylenol Pt had a small emesis episode witnessed by foam charger. In addition Pt was found to [...] note. Outcome: Not Progressing Flowsheets (Taken 10/22/2023 2553) Outcome Evaluation: Pt is voiding, on 2L [...] Documentation Taken 10/21/2023 09 by Milli Morales RNwater softener installer Interventions: medication (see MAR) Taken 10/21/2023824 by Milli Morales RNwater softener installer Interventions: medication (see MAR) Goal: Readiness for [...] Documentation Taken 10/21/2023 09 by Milli Morales RNwater softener installer Interventions: medication (see MAR) Taken 10/21/2023824 by Milli Morales RNwater softener installer Interventions: medication (see MAR) Goal: Nausea and [...] and complete assessments, please see documentation flowsheets. [id number] Pertinent assessments: POD#1. Pt A&Ox4. On 3L [...] Goal: Fluid and Electrolyte Balance 10/21/2023703 by Satish Zaldivar RN Outcome: Not [...] RN Outcome: Not Progressing 10/21/2023702 by Satish Zalidvar RN Outcome: Progressing Goal: Effective Urinary Elimination [...] Jacobs MD - 10/20/2023 6:06 PM CDT [facility] Brief Operative Note Pre-operative diagnosis: Colonic diverticular [...] not done) negative * Op Note - aTmmy Montoya MD - 10/20/2023 2:37 PM CDT Operative Report Pre Operative Diagnosis: 1) Complicated Sigmoid Diverticulitis with pelvic abscess Post Operative Diagnosis 1) Same Surgery: Intraoperative colonoscopy with polypectomy Robotic converted to open sigmoid colectomy Intraoperative fluorescence angiography Colorectal anastomosis Rigid proctoscopy with pneumatic leak testing Surgeon: Maddi Montoya MD Rehabilitation Nurse: Kalyn Villagomez PA-C A skilled assistant food service director was necessary due to the technical complexity of the procedure and for the patient's safety. The automotive service assistant helped me with positioning, retraction, visualization of the operative field, meticulous wound closure and moreover helped to complete the procedures in a technicallysafe and efficient manner. Second Rehabilitation Nurse: Milli Jacobs MD (colorectal surgery fellow) Anesthesia: [...] gown and gloves. We placed a 19 Japanese Lit channel drain through the left most [...] * Pharmacy-Admission Medication History - Jeffery Menard [facility] - 10/15/2023 2:21 PM CDT Pre-Admission Medication History Medication history and patient interview completed by pre-admitting RN or pre- op/PRESS OPERATOR HELPER. [facility], [facility] Everywhere, and chart review. Jeffery Menard, Pharm.D., [facility] Last Reviewed by Lesa Reyes RN on 10/12/2023 at 4:31 PM CASH REGISTER OPERATOR Med List Medication Sig Last Dose acetaminophen [...] MD LAB - BLOOD ORDER CHANEL LABORATORY [facility] Acute Care Lab [address] Lab (1st floor, no room number) [place] [address], [facility] * (ABNORMAL) CBC with platelets (10/25/2023 7:49 [...] MD LAB - BLOOD ORDERABL ES LABORATORY [facility] Acute Care Lab [address] [facility] Lab (1st floor, no room number) [place] [address], [facility] * Basic metabolic panel (10/25/2023 7:49 AM CDT) [facility] Signature Sodium 140 135 - 145 [...] Mcneal MD LAB - BLOOD ORDERABL ES [facility] Acute Care Lab [address] [facility] [address] Lab (1st floor, no room number) [place] [address] * XR Abdomen Port 1 View (10/23/2023 4:14 PM CDT) Anatomical Region Laterality Modality Abdomen/Pelvis Digital Radiogra phy 10/23/2023 4:14 PM CDT Impressions 10/23/2023 7:05 PM CDT IMPRESSION: Enteric tube in the body the stomach. Overall bowel loops not well assessed on this study for NG tube placement. Narrative 10/23/2023 7:05 PM CDT EXAM: XR ABDOMEN PORT 1 VIEW LOCATION: [facility] DATE: 10/23/2023 INDICATION: NG tube placement COMPARISON: None. Procedure Note Venkat Martinez MD - 10/23/2023 EXAM: XR ABDOMEN PORT 1 VIEW LOCATION: [facility] DATE: 10/23/2023 INDICATION: NG tube placement COMPARISON: [...] MD LAB - BLOOD ORDERABL ES LABORATORY [facility] Acute Care Lab [address] [facility] Lab (1st floor, no room number) [place] [address], [facility] * XR Abdomen 2 Views (10/23/2023 9:42 [...] CDT EXAM: XR ABDOMEN 2 VIEWS LOCATION: [facility] DATE: 10/23/2023 INDICATION: Evaluate for ileus. COMPARISON: CT abdomen and pelvis 08/18/2023. Procedure Note Jillian Nicole MD - 10/23/2023 EXAM: XR ABDOMEN 2 VIEWS LOCATION: [facility] DATE: 10/23/2023 INDICATION: Evaluate for ileus. COMPARISON: [...] 8:45 AM CDT 10/23/2023 8:57 AM CDT Adná Mcneal MD LAB - BLOOD ORDERABL ES [facility] Care Lab [address] Lab (1st floor, no room number) [address] * Platelet count (10/23/2023 8:45 AM CDT) Platelet Count 320 150 - 450 10e3/uL 10/23/2023 9:00 AM CDT RH LABORATORY Blood STRUCTURE OF LEFT UPPER LIMB / Unknown Venipuncture / Unknown 10/23/2023 8:45 AM CDT 10/23/2023 8:57 AM CDT Tammy Montoya MD LAB - BLOOD ORDER CHANEL [facility] Acute Care Lab [address] Lab (1st floor, no room number) [place] [phone] [place] [address] * (ABNORMAL) Glucose by meter (10/22/2023 6:13 AM CDT) GLUCOSE BY METER POCT 149(H) 70 - 99 mg/dL 10/22/2023 6:20 AM CDT RH LABORATORY POC Blood, Capillary BLOOD SPECIMEN / Unknown 10/22/2023 6:13 AM CDT 10/22/2023 6:20 AM CDT Tammy ALMARAZ - BEAKER POCT LABORATORY [facility] Care Lab [address] Lab (1st floor, no room number) [place] [address], [facility] * (ABNORMAL) Glucose by meter (10/21/2023 6:35 AM CDT) GLUCOSE BY METER POCT 133(H) 70 - 99 mg/dL 10/21/2023 6:42 AM CDT RH LABORATORY POC Blood, Capillary BLOOD SPECIMEN / Unknown 10/21/2023 6:35 AM CDT 10/21/2023 6:42 AM CDT Tammy ALMARAZ - BEAKER POCT LABORATORY [facility] Lab [address] Lab (1st floor, no room number) [place] [address], [facility] * Phosphorus (10/21/2023 6:22 AM CDT) Phosphorus 2.9 2.5 - 4.5 mg/dL 10/21/2023 6:58 AM CDT LABORATORY Blood STRUCTURE OF RIGHT UPPER LIMB / Unknown Venipuncture / Unknown 10/21/2023 6:22 AM CDT 10/21/2023 6:31 AM CDT Tammy Montoya MD LAB - BLOOD ORDER CHANEL [facility] Lab [address] Lab (1st floor, no room number) [place] [address] * Magnesium (10/21/2023 6:22 AM CDT) Magnesium 1.8 1.7 - 2.3 mg/dL 10/21/2023 6:58 AM CDT RH LABORATORY Blood STRUCTURE OF RIGHT UPPER LIMB / Unknown Venipuncture / Unknown 10/21/2023 6:22 AM CDT 10/21/2023 6:31 AM CDT Tammy Montoya MD LAB - BLOOD ORDER CHANEL [facility] LABORATORY [facility] Lab [address] [facility] Lab (1st floor, no room number) [place] [address] * (ABNORMAL) CBC with platelets (10/21/2023 6:22 [...] MD LAB - BLOOD ORDER CHANEL LABORATORY [facility] Lab [address] Lab (1st floor, no room number) [place] [address], [facility] * (ABNORMAL) Basic metabolic panel (10/21/2023 6:22 AM CDT) [facility] Sodium 137 135 - 145 mmol/L 10/21/2023 [...] - BLOOD ORDER CHANEL Performing Organization Address [facility]/ZIP Co de Phone Number [facility] Lab [address] Lab (1st floor, no room number) [address] * Platelet count (10/20/2023 8:56 PM CDT) Platelet Count 315 150 - 450 10e3/uL 10/20/2023 9:10 PM CDT LABORATORY Blood STRUCTURE OF LEFT UPPER LIMB / Unknown Venipuncture / Unknown 10/20/2023 8:56 PM CDT 10/20/2023 9:03 PM CDT Tammy Montoya MD LAB - BLOOD ORDER CHANEL Performing Organization Address [facility] Co de Phone Number [facility] Lab [address] [facility] Lab (1st floor, no room number) [address] * Surgical Pathology Exam (10/20/2023 1:59 PM CDT) Case Report Surgical Pathology Report ? Case: [id number] ? Authorizing Provider: ??Tammy Montoya MD ?? Collected: ? 10/20/2023 01:59 PM ? Ordering Location: ? [facility] ?? Received: ?10/20/2023 02:44 PM [...] flowers-pink and contains a normal folding pattern. Hand Stapler sections are submitted as follows: B1-proximal margin, en face B2-distal margin, en face J9-S6-ifgles diverticula and mucosa B7-additional portion of bowel mucosa (MEET Oliveira) 10/22/2023 2:54 PM CDT LABORATORY Microscopic Description Microscopic examination was performed. 10/22/2023 2:54 PM CDT LABORATORY Performing Labs The technical component of this testing was completed at [facility] Laboratory 10/22/2023 2:54 PM CDT LABORATORY Case Images 10/22/2023 2:54 PM CDT LABORATORY Polyp ASCENDING COLON STRUCTURE / Unknown 10/20/2023 1:59 PM CDT 10/20/2023 2:44 PM CDT Tissue specimen (specimen) SIGMOID COLON PART / Unknown 10/20/2023 4:32 PM CDT 10/20/2023 6:13 PM CDT Tammy Montoya MD LAB - KAYKAY LOPEZ LABORATORY [facility] Lab [address] [facility] Lab (1st floor, no room number) [place] [address] * COLONOSCOPY (10/20/2023 1:02 PM CDT) COLONOSCOPY [facility] Patient Name: Christi Wu ? Procedure [...] continuously. The ?Olympus Adult Colonoscope, Model # CF-FP862T, ?Censitrac # [id number] was introduced through the ?anus and advanced [...] Procedure Code(s): ? --- Professional --- ? 28837, Colonoscopy, flexible; with removal of tumor(s), polyp(s), or ? other lesion(s) by snare technique CPT copyright 2021 [employer]. All rights reserved. The codes documented in this report are preliminary and upon green chain operator review may be revised to meet current compliance requirements. TAMMY MONTOYA MD 10/22/2023 5:35:05 PM I was physically present for the entire viewing portion of the exam. TAMMY MONTOYA MD Number of Addenda: 0 Note Initiated On: 10/20/2023 1:02 PM MRN: ?[id number] Procedure Date: ? 10/20/2023 1:02:04 PM Scope [...] MD LAB - BEAKER POCT LABORATORY POC [facility] Lab [address] Lab (1st floor, no room number) [place] [address], [facility] * EKG CARDIAC - HIM SCAN (10/06/2023 [...] analgesic side effects. Hold while on IV ORACLE CONSULTANT or with regular IV opioid dosing. $Given [...] analgesic side effects. Hold while on IV ORACLE CONSULTANT or with regular IV opioid dosing. $Given [...] dormant line 1050 ($Given - Provider: Lili Kmep RN)1752 ($Given - Provider: Wes Bui RN) [...] analgesic side effects. Hold while on IV ORACLE CONSULTANT or with regular IV opioid dosing. 0435 [...] analgesic side effects. Hold while on IV ORACLE CONSULTANT or with regular IV opioid dosing. 0435 [...] analgesic side effects. Hold while on IV ORACLE CONSULTANT or with regular IV opioid dosing. Or oxyCODONE (ROXICODONE) tablet 10 mgJump to med 10 mg, Oral, EVERY 4 HOURS PRN, severe pain, Starting on Wed10/20/23 at 2038, Hold oral PRN dose for analgesic side effects. Notify provider to assess for uncontrolled pain or analgesic side effects. Hold while on IV ORACLE CONSULTANT or with regular IV opioid dosing. documented in this encounter Care Teams Media Manager Relationship Specialty Start Date End Date Juan Pablo Buckley MD [facility] [address] [place] [address] PCP - General Family Medicine 10/20/23 documented as of this encounter
--- OUTSIDE RECORDS SUMMARY | 2023-11-15 12:52 | XMS_ITS | Encounter Summary ---
Author Name Unknown Organization [place] Address [facility] [place] [address] Care Team Providers Care Cook Seafood Name Role Phone No Ref-Primary, Physician Primary Care Provider Juan Pablo Buckley MD Primary Care Provider [phone] Encounter Details Date Type Department Care Team (Late st Contact Info) Description 08/18/2023 Orders Only [facility] [address] [place] [address] Carlyn Barba MD COLO & RECTAL SURGERY [address] [id number] C. difficile diarrhea (Primary Dx) Social History [...] Out C-difficile 08/18/2023 08/18/2023 024 5:02 AM TWISTING FRAME OPERATOR C-difficile 08/18/2023 08/18/2023 09/17/2023 11:3 9 PM TWISTING FRAME OPERATOR documented as of this encounter Care Teams Cook Seafood Relationship Specialty Start Date End Date No Ref-Primary, Physician PCP - General 03/25/23 10/19/23 Juan Pablo Buckley MD [facility] [id number] [place] [address] PCP - General Family Medicine 10/20/23 documented as of this encounter
--- OUTSIDE RECORDS SUMMARY | 2023-11-15 12:52 | XMS_ITS | Encounter Summary ---
Author Name Unknown Organization [place] Address [facility] [place] [address] Care Team Providers Care Floorhand Name Role Phone No Ref-Primary, Physician Primary Care Provider Juan Pablo Buckley MD Primary Care Provider [phone] Encounter Details Date Type Department Care Team (Late st Contact Info) Description 08/17/2023 Orders Only [facility] [address] [place] [address] Carlyn Barba MD [facility] [address] [id number] Social History Tobacco Use Types Packs/Day Years [...] Out C-difficile 08/18/2023 08/18/2023 024 5:02 AM FOIL SPINNER C-difficile 08/18/2023 08/18/2023 09/17/2023 11:3 9 PM FOIL SPINNER documented as of this encounter Care Teams Floorhand Relationship Specialty Start Date End Date No Ref-Primary, Physician PCP - General 03/25/23 10/19/23 Juan Pablo Buckley MD [facility] [id number] [place] [id number] PCP - General Family Medicine 10/20/23 documented as of this encounter
--- OUTSIDE RECORDS SUMMARY | 2023-11-15 12:52 | XMS_ITS | Encounter Summary ---
Author Name Unknown Organization [place] Address [facility] [place] [address] Care Team Providers Care Area Sales Manager Name Role Phone No Ref-Primary, Physician Primary Care Provider Juan Pablo Buckley MD Primary Care Provider [phone] Encounter Details Date Type Department Care Team (Late st Contact Info) Description 08/12/2023 Hospital Encounter [facility] [address] [address] Carlyn Barba MD [facility] [address] [place] [id number] Social History Tobacco Use Types Packs/Day Years [...] C-difficile 07/16/2023 07/16/2023 08/15/2023 11:3 9 PM PAINTING MANAGER Rule Out C-difficile 08/18/2023 08/18/2023 024 5:02 AM PAINTING MANAGER C-difficile 08/18/2023 08/18/2023 09/17/2023 11:3 9 PM PAINTING MANAGER documented as of this encounter Care Teams Area Sales Manager Relationship Specialty Start Date End Date No Ref-Primary, Physician PCP - General 03/25/23 10/19/23 Juan Pablo Buckley MD [facility] [id number] [place] [id number] PCP - General Family Medicine 10/20/23 documented as of this encounter
--- OUTSIDE RECORDS SUMMARY | 2023-11-15 12:52 | XMS_ITS ---
Author Name Unknown Organization [place] Address [address] [place] [address] Care Team Providers Care Wardrobe Image Consultant Name Role Phone Juan Pablo Buckley MD Primary Care Provider [phone] Transitional Care Management Status:Closed (Closed) Start date:10/28/2023 Enrollment date:10/29/2023 End date:11/11/2023 Close reason:Goals met Continued Care and Services Coordination
--- OUTSIDE RECORDS SUMMARY | 2023-11-15 12:52 | XMS_ITS | Encounter Summary ---
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] Procedures SC LAP,SURG,COLECTOMY, PARTIAL, W/ANAST SC LAP,SURG,COLECTOMY,W/REMVL TERM ILEUM SC LAP,SURG,COLECTOMY,W/END COLOST & CLOSUR SC LAP,SURG,COLECTOMY,W/ANAST SC LAP, SURG, COLECTOMY, W/ANAST, W/COLOSTOMY SC LAP,SURG,COLECTOMY,TOTAL,W/O PROCTECTOMY SC LAP,SURG,COLECTOMY,TOTAL,W/PROCT ECTOMY SC LAP,SURG,COLECT,TOT,W/PROCTECT,W /ILEOST SC CYSTOURETHROSCOPY W URETERAL CATH SC CYSTOURETHROSCOPY W URETERAL CATH SC CYSTOSCOPY,INSERT URETERAL STENT cystoscopy with bilateral ureteral catheter insertion [facility] [address] [place] [address] Referral ID Status Reason Start Date Expiration Date Visits Re quested Visits Authorized [id number] 1 1 Encounter Details Date Type Department Care Team (Latest Contact Info) Description 08/20/2023 Hospital Encounter [facility] [address] [place] [id number] Mauricio Padilla MD [address] [place] [address] Colonic diverticular abscess Social History Tobacco Use [...] C-difficile 08/18/2023 08/18/2023 09/17/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
--- OUTSIDE RECORDS SUMMARY | 2023-11-15 12:52 | XMS_ITS | Encounter Summary ---
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
--- OUTSIDE RECORDS SUMMARY | 2023-11-15 12:52 | XMS_ITS | Encounter Summary ---
Author Name Unknown Organization [place] Address [address] [facility] [place] [address] Care Team Providers Care Boss Dyer Name Role Phone No Ref-Primary, Physician Primary Care Provider Reason for Referral * Home Health Therapies & Aides (Routine: Next available opening) - Pending Review Specialty Diagnoses / Procedures Referred By Contac t Referred To Contact Diagnoses Clostridioides difficile infection Liberty Morrow MD [address] [place] [address] Referral ID Status Reason Start Date Expiration Date V isits Requested Visits Authorized [id number] Pending Review 08/21/2023 08/20/2024 1 1 Question Answer Reason for Referral: Prison, Physical Therapy Physical Therapy Eval and Treat for: Therapeutic Exercise Prison Eval and Treat for: Disease management Additional [...] Provider to follow patient NO REF-PRIMARY, PHYSICIAN [[id number]] Comments Your provider has ordered home health services. If you have not been contacted within 2 days of your discharge please call the selected Home Care agency listed on your Discharge document. If a Home Care agency is NOT listed, please call [phone]. F NURSE ANESTHETIST Reason for Visit * Reason Comments Wound Infection * Auth/Cert (Routine) Specialty Diagnoses / Procedures Referred By Contac t Referred To Contact Med Surg Diagnoses Pancolitis (H) Intra-abdominal abscess (H) C. difficile colitis Pancolitis (H) Intra-abdominal abscess (H) C. difficile colitis Gen Surg [address] [place] [address] Referral ID Status Reason Start Date Expiration Date Visits Re quested Visits Authorized [id number] 1 1 Encounter Details Date Type Department Care Team (Late st Contact Info) Description 08/18/2023 9:47 PM STAFF NURSE ANESTHETIST - 08/21/2023 1:51 PM STAFF NURSE ANESTHETIST Hospital Encounter [facility] Surgery [address] [facility] [place] [address] Luisa Mendoza MD [facility] [address] [place] [address] Jun Leone MD [address] [facility] [place] [id number] Clostridioides difficile infection (Primary Dx); Pancolitis (H); [...] Comments Blood Pressure 184/94 08/21/2023 11:03 AM STAFF NURSE ANESTHETIST Pulse 74 08/21/2023 11:03 AM STAFF NURSE ANESTHETIST Temperature 36.7 ??C (98 ??F) 08/21/2023 11:03 AM STAFF NURSE ANESTHETIST Respiratory Rate 18 08/21/2023 11:03 AM STAFF NURSE ANESTHETIST Oxygen Saturation 95% 08/21/2023 11:03 AM STAFF NURSE ANESTHETIST Inhaled Oxygen Concentration - - Weight 73 kg (161 lb) 08/18/2023 7:03 PM STAFF NURSE ANESTHETIST Height 170.2 cm (5' 7) 08/18/2023 7:03 PM STAFF NURSE ANESTHETIST Body Mass Index 25.22 08/18/2023 7:03 PM STAFF NURSE ANESTHETIST documented in this encounter Discharge Summaries * Liberty Morrow MD - 08/21/2023 11:35 AM CST Images from the original note were not included. [facility] Hospitalist Discharge Summary Date of Admission: 08/18/2023 [...] (infectious disease MD) via virtual visit. Call [phone] for appointment. Follow up with Dr. Barba [...] clear. Severe malnutrition Appreciate input from the dietitian/laborer high density press Ensure Enlive @ 10 am and 2 [...] minutes discharging this patient. Liberty Morrow MD [address] [address] Physical Exam Vital Signs: Temp: 98 ??F (36.7 ??C) Temp src: Oral BP: (!) 184/94 Pulse: 74 Resp: 18 SpO2: 95 % N4Ypxatl: None (Room air) Weight: 161 lbs 0 [...] (infectious disease MD) via virtual visit. Call [phone] for appointment. Follow up with Dr. Barba [...] C. difficile Antigen and Toxins A/B EIA [[id number]] (Abnormal) Stool from Per Rectum Final result [...] Antigen and Toxins A/B by Enzyme Immunoassay [[id number]] (Abnormal) Stool from Per Rectum Final result Component Value C. difficile GDH Antigen Positive C. difficile Toxin Positive , Results for orders placed or performed during the hospital encounter of 08/18/23 CT Abdomen Pelvis w/o & w Contrast Narrative EXAM: CT ABDOMEN PELVIS W/O and W CONTRAST LOCATION: [facility] DATE: 08/18/2023 INDICATION: Diarrhea. Concern for [...] Reason for Stopping: Allergies No Known Allergies F NURSE ANESTHETIST documented in this encounter Discharge Instructions * Discharge Instructions* Ivette Huffman LSW - 08/20/2023 3:20 PM STAFF NURSE ANESTHETIST Images from the original note were not included. Some additional resources: Web: https://Hit [employer].org/ Help At Your Door is a nonprofit serving seniors and individuals with disabilities across [place]???[facility]. Our grocery assistance, home support and transportation services provide help with in-home tasks and chores. Meals on Wheels [facility] call Web: https://multiBIND biotec/services/ If your family would like extra support, here is one great resource: Caregiver Assurance call 781-980-FSOL(9536) Customer service hours: Wednesday - Wednesday, 9 a.m. - 7 p.m. Other resources: https://zpxkk-wh-tzedwkTicketFire/get-meals/ Meals on Wheels Getting started with Meals on Wheels is easy. Either give us a call at [phone] or complete your order right here! Meals [employer] Wheels- [phone], or [employer]- [phone] [place], [place] [address] F NURSE ANESTHETIST documented in this encounter Medications at Time [...] home with Home RN, PT, OT through [employer] [facility]. Please reconsult care management if new discharge needs arise. 1140 discharge orders faxed via [facility] to [employer] [facility]. Mold Preparer called intake to alert them of discharge today. Keri Peralta RN [facility] , [employer] Merchant or [phone] F NURSE ANESTHETIST * Rakesh Ross, PT - 08/20/2023 12:01 PM CST 08/20/23 1053 Appointment Info Signing Clinician's Name / Credentials (PT) Rakesh Ross PT, DPT Living Environment People in Home spouse Current Living Arrangements house (one level [facility]) Home Accessibility stairs to enter home [...] Evaluation Time PT Eval, Low Complexity Minutes (75566) 8 Physical Therapy Goals PT Frequency Daily [...] dynamic activities to improve functional performance Minutes (36927) 18 Symptoms Noted During/After Treatment Fatigue Treatment [...] within reach. Gait Training Gait Training Minutes (73135) 14 Symptoms Noted During/After Treatment (Gait Training) [...] (sum of timed and untimed services) 40 F NURSE ANESTHETIST * Chris Marie MD - 08/20/2023 11:28 AM CST [facility] Hospitalist Progress Note Brief Summary: This is [...] depression Severe malnutrition Appreciate input from the dietitian/laborer high density press Ensure Enlive @ 10 am and 2 pm Hypokalemia Will start him on replacement protocol. Thrombocytopenia Mild, likely secondary to acute infection at this time. Will continue monitor DVT Prophylaxis: Pneumatic Compression Devices Code Status: Full Code Disposition: Expected discharge tomorrow if remains stable. Chris Maire MD, MD Text Page (7am - 6pm) [...] previous visit (from the past 24 hour(s)). F NURSE ANESTHETIST * Sybil Steinberg MD - 08/20/2023 10:19 AM CST [facility] Infectious Disease Progress Note Date of Service (when I saw the patient): 08/20/2023 Assessment & Plan Theodore Wu is a 78 year old who was admitted on 08/18/2023. 78 yo with PMH of hypertension, CAD s/p CABG, current smoker c/b COPD Long standing history of intra-abdominal abscess incidentally [facility] a [facility]. [facility] it was noted that this abscess would not amenable to IR drainage due to location. He signed out AGAINST MEDICAL ADVICE at that time. He also has history of chronic low back pain with finding of lumbar stenosis and has been seen by neurosurgery. He was admitted to [facility] from 03/27 - 03/30/23 with acute sigmoid [...] ID in 2 weeks ( lives in [place] ) call soonerif issues Discussed plan with [...] found for this or any previous visit. F NURSE ANESTHETIST * Ivette Huffman LSW - 08/20/2023 10:14 [...] pay costs discussed: Not applicable Additional Information: Mold Preparer approached by patients family and friends to discuss patient discharge plan. Cynthia, patients spouse, Shelby a family friend [phone]. And Bruce, patiens brother. Family reported ever since patients C - diff diagnosis he has been very depressed hardly able to walk, falling a lot and generally feeling hopeless and he was unable to get the surgery he needs andis feeling overwhelmed about possibly being in pain for several more months. Family was asking for assistance with possible TCU placement or home care. Mold Preparer assured family that we could assist with discharge planning and would wait to see assessments from PT and OT. Mold Preparer also explained that patient is his own decision maker and technical writer and editor would not be able to talk patient into doing something he did not agree to do. (Family keeps mentioning patient is stubborn, grumpy and mean) Shelby and Bruce had concerns about the way patient treats his spouse, no indication of abuse, just that Cynthia is tired and overwhelmed. Mold Preparer provided Cynthia with resources and encouraged her to call the senior linkage line and connect with her PCP for assistance. Mold Preparer asking doctor for a psych consult for patient and will do a consult for discharge planning. LISS Arevalo F NURSE ANESTHETIST * Carlyn Barba MD - 08/20/2023 9:17 [...] questions/paging, please contact the CRS office at [phone]. Galen Moffett PA-C [facility] Staff I performed a history and physical examination of the patient and discussed their management with the physician retail administrative assistant. I reviewed the physician assistants note [...] Associates [address] [place] [address] T: [phone] F: [phone] F NURSE ANESTHETIST * Brandi Matthews RN - 08/19/2023 4:21 [...] to perineum & coccyx. Enteric precautions maintained. F NURSE ANESTHETIST * Chris Marie MD - 08/19/2023 1:00 PM CST [facility] Hospitalist Progress Note Brief Summary: This is [...] ABDOMEN PELVIS W/O and W CONTRAST LOCATION: [facility] DATE: 08/18/2023 INDICATION: Diarrhea. Concern for [...] abscess. 4. Possible cystitis. Correlate with urinalysis. F NURSE ANESTHETIST * Clarice Castellano - 08/19/2023 9:40 AM [...] use disorder, Lumbar stenosis, Glaucoma Admitted to [facility] for Acute sigmoid diverticulitis with associated pelvic abscesses 03/27-11/2022 Recent admission to [facility] for C.diff 07/15- Admitted for: Pancolitis 08/27 [...] Weight: 73 kg (08/18) Estimated Energy Needs: 2870-8109 kcal (25-30 Kcal/Kg) Justification: maintenance Estimated Protein [...] Practice Guidelines Clarice Castellano RD, LD Pager: [phone] F NURSE ANESTHETIST * Aurea New RN - 08/18/2023 11:28 PM CST RECEIVING UNIT ED HANDOFF REVIEW ED Nurse Handoff Report was reviewed by: Aurea New, MEDHAT on August 18, 2023 at 11:28 PM F NURSE ANESTHETIST documented in this encounter H&P Notes * Jun Leone MD - 08/19/2023 1:48 AM CST [facility] History and Physical - Hospitalist [...] Date: 08/20/2023 Jun Leone MD Hospitalist Service [facility] Securely message with AI Merchant (more info) Text page via [facility] Paging/Directory Chief Complaint diarrhea History [...] ABDOMEN PELVIS W/O and W CONTRAST LOCATION: [facility] DATE: 08/18/2023 INDICATION: Diarrhea. Concern for [...] abscess. 4. Possible cystitis. Correlate with urinalysis. F NURSE ANESTHETIST documented in this encounter Consult Notes * [...] Communication Assessment Patient's communication style: spoken language (Filipino or Bilingual) Hearing Difficulty or Deaf: no [...] No Current Concerns Values/Beliefs: Spiritual, Cultural Beliefs, Hoahaoism Practices, Values that affect care: Additional Information: [...] C. difficile. He was treated with vancomycin. Mold Preparer met with patient at bedside and introduced self and role. Patient reports using a cane and walker at baseline and independent with ADLs. Patient is interested in home care nursing, PT and OT and wants referrals sent. Mold Preparer sending through [facility]. Patient wanted referrals for energy assistance and also for senior linkage line and meals on wheels, resources were added to patients discharge paper work. Patient also mentioned being connected with support for anxiety when prompted and admittingthat he has had a had tie adjusting to diagnosis. LISS Arevalo F NURSE ANESTHETIST * Laine Blevins MD - 08/20/2023 11:33 [...] Ketones Urine 10 (A) Negative mg/dL Specific [place] Urine 1.015 1.003 - 1.035 Blood Urine [...] range Speech: clear, coherent Language: Fluent in uruguayan Psychomotor Behavior: no evidence of tardive dyskinesia, [...] Blevins MD Consult/Liaison Psychiatry and Addiction Medicine [facility] F NURSE ANESTHETIST * Sybil Steinberg MD - 08/19/2023 9:53 AM CSTAssociated Order(s): INFECTIOUS DISEASES IP CONSULT [facility] Infectious Disease Consultation Date of Admission: 08/18/2023 Date of Consult (When I saw the patient): 08/19/23 Assessment & Plan Theodore Wu is a 78 year old who was admitted on 08/18/2023. Impression: 78 yo with PMH of hypertension, CAD s/p CABG, current smoker c/b COPD Long standing history of intra-abdominal abscess incidentally [facility]. [facility] was noted that this abscess would not amenable to IR drainage due to location. He signed out AGAINST MEDICAL ADVICE at that time. He also has history of chronic low back pain with finding of lumbar stenosis and has been seen by neurosurgery. He was admitted to [facility] from 03/27 - 03/30/23 with acute sigmoid [...] found for this or any previous visit. F NURSE ANESTHETIST * Carlyn Barba MD - 08/19/2023 8:40 AM CSTAssociated Order(s): COLORECTAL SURGERY IP CONSULT [facility] Colon and Rectal Surgery Consult Note [...] Intake/Output Summary (Last 24 hours) at 08/19/2023 5389 Last data filed at 08/19/2023 0625 Gross [...] ABDOMEN PELVIS W/O and W CONTRAST LOCATION: [facility] DATE: 08/18/2023 INDICATION: Diarrhea. Concern for [...] Barba MD [facility] F NURSE ANESTHETIST documented in this encounter ED Notes * Neema Wheatley RN - 08/18/2023 11:03 PM CST [facility] ED Nurse Handoff Report ED Chief [...] Current: Stand with Assist Patient's Preferred language: Filipino Handkerchief Sample Clerk Needed?: No Isolation: contact Infection: Not Applicable [...] behavior was Green. ED NURSE PHONE NUMBER: [phone] F NURSE ANESTHETIST * Abdirizak Michael RN - 08/18/2023 9:47 PM CST Bed: ED09 Expected date: Expected time: Means of arrival: Comments: Triage F NURSE ANESTHETIST * Terra Alejandro RN - 08/18/2023 7:03 PM CST Pt was told by PCP to come to the hospital for a colon abscess. Triage Assessment (Adult) Row Name 08/18/23 6747 Triage Assessment Airway WDL WDL Respiratory WDL Respiratory WDL WDL Skin Circulation/Temperature WDL Skin Circulation/Temperature WDL WDL Cardiac WDL Cardiac WDL WDL Peripheral/Neurovascular WDL Peripheral Neurovascular WDL WDL Cognitive/Neuro/Behavioral WDL Cognitive/Neuro/Behavioral WDL WDL F NURSE ANESTHETIST * Luisa Mendoza MD - 08/18/2023 6:41 [...] with bilateral ureteric catheter and surgery at [facility] in [address] Barba [...] care of Dr. Leone. Impression & Plan [facility] Diagnoses: None Medical Decision Making: Theodore Wu [...] MD Cho, Amy C, MD 08/19/23 0243 F NURSE ANESTHETIST documented in this encounter Miscellaneous Notes * Plan of Care - Aurea Donis PT - 08/21/2023 1:51 PM CST Physical Therapy Discharge Summary Reason for therapy discharge: Discharged to home with home therapy. Progress towards therapy goal(s). See goals on Care Plan in [facility] electronic health record for goal details. [...] Recommendation above provided by last treating therapist. F NURSE ANESTHETIST * Plan of Care - Agustín Prince [...] medications returned to patient. All questions answered. F NURSE ANESTHETIST * Plan of Care - Anu Munoz RN - 08/21/2023 6:56 AM CST Goal Outcome Evaluation: Patient is A&O X4, VSS on RA. Denies pain. On enteric isolation. PIV intact, flushed, SL with intermittent antibiotics. No BM this shift. On regular diet. Up with SBA to the bathroom. Voiding using urinal. Continue with plan of care. F NURSE ANESTHETIST * Plan of Care - Carmenza Thompson RN - 08/20/2023 9:57 PM CST Pt up with SBA. Denies pain. 1 stool on this shift, on abx. Potassium replaced, needed lab recollect. Await discharge plan F NURSE ANESTHETIST * Plan of Care - Agustín Prince RN - 08/20/2023 6:24 PM CST Shift: 08/20/23 [id number] Surgery/POD#: Cdiff colitis, pelvic abscess Orientation: A&O x4 Pain: Denies during shift Vitals/Tele: VSS on RA ex HTN IV Access/drains: PIV SL Diet: Regular Mobility: SBA GI/: Continent, urinal at bedside. BM x1 Wound/Skin: Blanchable redness to perineum & coccyx. Consults: ID/Colorectal Discharge Plan: Pending improvement F NURSE ANESTHETIST * Plan of Care - Anna Tucker RN - 08/20/2023 1:49 PM CST Here for CDIFF. A&O x4, forgetful. VSS on RA. Up w/ SBA. Denied pain. Voiding in bathroom. Had multiple loose stools today. Encouraging PO fluids. Alarms on. Plan for possible discharge home tomorrow. F NURSE ANESTHETIST * Plan of Care - Anu Munoz RN - 08/20/2023 6:30 AM CST Goal Outcome Evaluation: Patient is A&O X4, VSS on RA. Denies pain. On enteric isolation. PIV intact, infusing Ns at 100mL/hr with intermittent antibiotics and flagyl. BM X1 this shift, soft/formed. On regular diet. Up with SBA to the bathroom. Voiding using urinal. Continue with plan of care. F NURSE ANESTHETIST * Plan of Care - Luba Olivo RN - 08/19/2023 11:06 PM CST Goal Outcome Evaluation: Shift: [id number] 08/19/2023 Surgery/POD#: Cdiff colitis, pelvic abscess Orientation: AO x4 Pain: Received PO Tylenol x1 for a headache Vitals/Tele: VSS RA IV Access/drains: PIV infusing NS at 100 mL/hr Diet: Regular Mobility: SBA GI/: Continent, urinal at Bedside; No BM this shift Wound/Skin: Blanchable redness to perineum & coccyx. Consults: ID/Colorectal Discharge Plan: TBD See Flow sheets for assessment F NURSE ANESTHETIST * Plan of Care - Elizabeth Moran RN - 08/19/2023 6:01 PM CST Neuro: A&O x4 Tele/cardiac: N/A Respiration: on RA Activity: SBA Pain: ultram given for back and neck pain Drips: IVF Drains/tubes: none Skin: blanchable redness to coccyx GI/: incontinent at times, stool starting to form has had 4 BM today Aggression color: green Isolation:enteric precautions F NURSE ANESTHETIST * Pharmacy-Admission Medication History - Syeda Hubbard, [facility] - 08/19/2023 10:09 AM CST Pharmacist Admission Medication History Admission medication history is complete. The information provided in this note is only as accurateas the sources available at the time of the update. Information Source(s): Patient and CareEverywhere/SureScripts via in-person Pertinent Information: Pt hasn't taken aspirin for a while since he's been dealing with medical issues. Changes made to INDUSTRIAL EDITOR medication list: Added: probiotic, ibuprofen Deleted: None Changed: Vit D Allergies reviewed with patient and updates made in EHR: done by american indian policy specialist History Completed By: Syeda Hubbard [facility] 08/19/2023 10:10 AM INDUSTRIAL EDITOR Med List Medication Sig Last Dose acetaminophen [...] EVERY SIX HOURS NEEDED FOR PAIN*at prn F NURSE ANESTHETIST * Plan of Care - Aurea New [...] to perineum & coccyx. Enteric precautions maintained. F NURSE ANESTHETIST documented in this encounter Plan of Treatment Scheduled Referrals Name Type Priority Associated Diagnoses Orde r Schedule Home Care Referral Referral Routine: Next available opening Clostridioides difficile infection Ordered: 08/21/2023 documented as of this encounter Procedures Procedure Name Priority Date/Time Associated Diagnosis Comments CBC WITH PLATELETS AND DIFFERENTIAL Routine 08/21/2023 7:42 AM STAFF NURSE ANESTHETIST CBC WITH PLATELETS & DIFFERENTIAL Routine 08/21/2023 7:42 AM STAFF NURSE ANESTHETIST PHOSPHORUS Routine 08/21/2023 7:42 AM STAFF NURSE ANESTHETIST BASIC METABOLIC PANEL Routine 08/21/2023 7:42 AM STAFF NURSE ANESTHETIST POTASSIUM Timed 08/20/2023 10:02 PM STAFF NURSE ANESTHETIST CBC WITH PLATELETS AND DIFFERENTIAL Routine 08/20/2023 7:00 AM STAFF NURSE ANESTHETIST CBC WITH PLATELETS & DIFFERENTIAL Routine 08/20/2023 7:00 AM STAFF NURSE ANESTHETIST PHOSPHORUS Routine 08/20/2023 7:00 AM STAFF NURSE ANESTHETIST BASIC METABOLIC PANEL Routine 08/20/2023 7:00 AM STAFF NURSE ANESTHETIST PHOSPHORUS Routine 08/19/2023 3:45 PM STAFF NURSE ANESTHETIST ROUTINE UA WITH MICROSCOPIC REFLEX TO CULTURE Routine 08/19/2023 2:55 AM STAFF NURSE ANESTHETIST C. DIFFICILE ANTIGEN AND TOXINS A/B BY ENZYME IMMUNOASSAY STAT 08/18/2023 11:41 PM STAFF NURSE ANESTHETIST C. DIFFICILE TOXIN B PCR WITH REFLEX TO C. DIFFICILE ANTIGEN AND TOXINS A/B EIA STAT 08/18/2023 11:41 [address]SE ANESTHETIST CT ABDOMEN PELVIS W/O & W CONTRAST STAT 08/18/2023 8:56 PM STAFF NURSE ANESTHETIST CBC WITH PLATELETS AND DIFFERENTIAL STAT 08/18/2023 7:11 PM STAFF NURSE ANESTHETIST CBC WITH PLATELETS & DIFFERENTIAL STAT 08/18/2023 7:11 PM STAFF NURSE ANESTHETIST MAGNESIUM STAT 08/18/2023 7:11 PM STAFF NURSE ANESTHETIST COMPREHENSIVE METABOLIC PANEL STAT 08/18/2023 7:11 PM STAFF NURSE ANESTHETIST documented in this encounter Results * (ABNORMAL) CBC with platelets and differential (08/21/2023 7:42 AM STAFF NURSE ANESTHETIST) [facility] WBC Count 8.9 4.0 - 11.0 10e3/uL 08/21/2023 7:56 AM STAFF NURSE ANESTHETIST LABORATORY RBC Count 4.30(L) 4.40 - 5.90 10e6/uL 08/21/2023 7:56 AM STAFF NURSE ANESTHETIST LABORATORY Hemoglobin 13.0(L) 13.3 - 17.7 g/dL 08/21/2023 7:56 AM STAFF NURSE ANESTHETIST LABORATORY Hematocrit 38.4(L) 40.0 - 53.0 % 08/21/2023 7:56 AM STAFF NURSE ANESTHETIST LABORATORY MCV 89 78 - 100 fL 08/21/2023 7:56 AM [facility] MCH 30.2 26.5 - 33.0 pg 08/21/2023 7:56 AM [facility] MCHC 33.9 31.5 - 36.5 g/dL 08/21/2023 7:56 AM [facility] RDW 13.8 10.0 - 15.0 % 08/21/2023 7:56 AM [facility] Platelet Count 136(L) 150 - 450 10e3/uL 08/21/2023 7:56 AM [facility] % Neutrophils 67 % 08/21/2023 7:56 AM [facility] % Lymphocytes 22 % 08/21/2023 7:56 AM [facility] % Monocytes 9 % 08/21/2023 7:56 AM [facility] % Eosinophils 1 % 08/21/2023 7:56 AM [facility] % Basophils 0 % 08/21/2023 7:56 AM [facility] % Immature Granulocytes 1 % 08/21/2023 7:56 AM [facility] NRBCs per 100 WBC 0 <1 /100 024 7:56 AM [facility] Absolute Neutrophils 6.0 1.6 - 8.3 10e3/uL 08/21/2023 7:56 AM [facility] Absolute Lymphocytes 2.0 0.8 - 5.3 10e3/uL 08/21/2023 7:56 AM [facility] Absolute Monocytes 0.8 0.0 - 1.3 10e3/uL 08/21/2023 7:56 AM [facility] Absolute Eosinophils 0.1 0.0 - 0.7 10e3/uL 08/21/2023 7:56 AM [facility] Absolute Basophils 0.0 0.0 - 0.2 10e3/uL 08/21/2023 7:56 AM [facility] Absolute Immature Granulocytes 0.1 <=0.4 10e3/uL 08/21/2023 7:56 AM [facility] Absolute NRBCs 0.0 10e3/uL 08/21/2023 7:56 AM [facility] Blood BLOOD SPECIMEN / Unknown Venipuncture / Unknown 08/21/2023 7:42 AM [facility] 08/21/2023 7:48 AM STAFF NURSE ANESTHETIST Chris Marie MD LAB - BLOOD ORDERAB LES [facility] [address], [address] [place] [address], [facility] [phone] * (ABNORMAL) Basic metabolic panel (08/21/2023 7:42 AM STAFF NURSE ANESTHETIST) [facility] Sodium 136 135 - 145 mmol/L 08/21/2023 8:15 AM [facility] Comment:Reference intervals for this test were updated on 04/20/2023 to more accurately reflect our healthy population. There may be differences in the flagging of prior results with similar values performed with this method. Interpretation of those prior results can be made in the context of the updated reference intervals. Potassium 3.3(L) 3.4 - 5.3 mmol/L 08/21/2023 8:15 AM [facility] Chloride 100 98 - 107 mmol/L 08/21/2023 8:15 AM [facility] Carbon Dioxide (CO2) 25 22 - 29 mmol/L 08/21/2023 8:15 AM [facility] Anion Gap 11 7 - 15 mmol/L 08/21/2023 8:15 AM [facility] Urea Nitrogen 6.9(L) 8.0 - 23.0 mg/dL 08/21/2023 8:15 AM [facility] Creatinine 0.70 0.67 - 1.17 mg/dL 08/21/2023 8:15 AM [facility] GFR Estimate >90 >60 mL/min/1. 73m2 08/21/2023 8:15 AM [facility] Calcium 8.8 8.8 - 10.2 mg/dL 08/21/2023 8:15 AM [facility] Glucose 98 70 - 99 mg/dL 08/21/2023 8:15 AM [facility] Blood BLOOD SPECIMEN / Unknown Venipuncture / Unknown 08/21/2023 7:42 AM STAFF NURSE ANESTHETIST 08/21/2023 7:48 AM STAFF NURSE ANESTHETIST Chris Marie MD LAB - BLOOD ORDERAB LES [facility] [address], [address] [place] [address], [facility] [phone] * Phosphorus (08/21/2023 7:42 AM STAFF NURSE ANESTHETIST) [facility] Phosphorus 3.1 2.5 - 4.5 mg/dL 08/21/2023 8:15 AM STAFF NURSE ANESTHETIST LABORATORY Blood BLOOD SPECIMEN / Unknown Venipuncture / Unknown 08/21/2023 7:42 AM STAFF NURSE ANESTHETIST 08/21/2023 7:48 AM STAFF NURSE ANESTHETIST Jun Leone MD LAB - BLOOD OR DERABLES [facility] [address], [address] [place] [address], [facility] [phone] * Potassium (08/20/2023 10:02 PM STAFF NURSE ANESTHETIST) [facility] Potassium 3.6 3.4 - 5.3 mmol/L 08/20/2023 10:20 PM STAFF NURSE ANESTHETIST LABORATORY Blood STRUCTURE OF LEFT UPPER LIMB / Unknown Venipuncture / Unknown 08/20/2023 10:02 PM STAFF NURSE ANESTHETIST 08/20/2023 10:07 PM STAFF NURSE ANESTHETIST Jun Leone MD LAB - BLOOD OR DERABLES [facility] [address], [address] [place] [address], [facility] [phone] * (ABNORMAL) CBC with platelets and differential (08/20/2023 7:00 AM STAFF NURSE ANESTHETIST) [facility] WBC Count 9.5 4.0 - 11.0 10e3/uL 08/20/2023 7:47 AM STAFF NURSE ANESTHETIST LABORATORY RBC Count 4.06(L) 4.40 - 5.90 10e6/uL 08/20/2023 7:47 AM STAFF NURSE ANESTHETIST LABORATORY Hemoglobin 12.4(L) 13.3 - 17.7 g/dL 08/20/2023 7:47 AM [facility] Hematocrit 36.5(L) 40.0 - 53.0 % 08/20/2023 7:47 AM [facility] MCV 90 78 - 100 fL 08/20/2023 7:47 AM [facility] MCH 30.5 26.5 - 33.0 pg 08/20/2023 7:47 AM [facility] MCHC 34.0 31.5 - 36.5 g/dL 08/20/2023 7:47 AM [facility] RDW 13.5 10.0 - 15.0 % 08/20/2023 7:47 AM [facility] Platelet Count 110(L) 150 - 450 10e3/uL 08/20/2023 7:47 AM [facility] % Neutrophils 74 % 08/20/2023 7:47 AM [facility] % Lymphocytes 16 % 08/20/2023 7:47 AM [facility] % Monocytes 8 % 08/20/2023 7:47 AM [facility] % Eosinophils 1 % 08/20/2023 7:47 AM [facility] % Basophils 0 % 08/20/2023 7:47 AM [facility] % Immature Granulocytes 1 % 08/20/2023 7:47 AM [facility] NRBCs per 100 WBC 0 <1 /100 024 7:47 AM [facility] Absolute Neutrophils 7.0 1.6 - 8.3 10e3/uL 08/20/2023 7:47 AM [facility] Absolute Lymphocytes 1.5 0.8 - 5.3 10e3/uL 08/20/2023 7:47 AM [facility] Absolute Monocytes 0.7 0.0 - 1.3 10e3/uL 08/20/2023 7:47 AM [facility] Absolute Eosinophils 0.1 0.0 - 0.7 10e3/uL 08/20/2023 7:47 AM [facility] Absolute Basophils 0.0 0.0 - 0.2 10e3/uL 08/20/2023 7:47 AM [facility] Absolute Immature Granulocytes 0.1 <=0.4 10e3/uL 08/20/2023 7:47 AM [facility] Absolute NRBCs 0.0 10e3/uL 08/20/2023 7:47 AM [facility] Blood STRUCTURE OF LEFT UPPER LIMB / Unknown Venipuncture / Unknown 08/20/2023 7:00 AM STAFF NURSE ANESTHETIST 08/20/2023 7:33 AM STAFF NURSE ANESTHETIST Chris Marie MD LAB - BLOOD ORDERAB LES LABORATORY [facility] [address], [address] [address], [facility] [phone] * Phosphorus (08/20/2023 7:00 AM [facility]) Phosphorus 2.9 2.5 - 4.5 mg/dL 08/20/2023 8:00 AM [facility] Blood STRUCTURE OF LEFT UPPER LIMB / Unknown Venipuncture / Unknown 08/20/2023 7:00 AM STAFF NURSE ANESTHETIST 08/20/2023 7:33 AM STAFF NURSE ANESTHETIST Chris Marie MD LAB - BLOOD ORDERAB LES LABORATORY [facility] [address], [address] [address], [facility] [phone] * (ABNORMAL) Basic metabolic panel (08/20/2023 7:00 AM [facility]) Sodium 137 135 - 145 mmol/L 08/20/2023 8:00 AM [facility] Comment:Reference intervals for this test were updated on 04/20/2023 to more accurately reflect our healthy population. There may be differences in the flagging of prior results with similar values performed with this method. Interpretation of those prior results can be made in the context of the updated reference intervals. Potassium 3.1(L) 3.4 - 5.3 mmol/L 08/20/2023 8:00 AM [facility] Chloride 102 98 - 107 mmol/L 08/20/2023 8:00 AM [facility] Carbon Dioxide (CO2) 27 22 - 29 mmol/L 08/20/2023 8:00 AM [facility] Anion Gap 8 7 - 15 mmol/L 08/20/2023 8:00 AM [facility] Urea Nitrogen 6.4(L) 8.0 - 23.0 mg/dL 08/20/2023 8:00 AM [facility] Creatinine 0.71 0.67 - 1.17 mg/dL 08/20/2023 8:00 AM [facility] GFR Estimate >90 >60 mL/min/1. 73m2 08/20/2023 8:00 AM [facility] Calcium 8.5(L) 8.8 - 10.2 mg/dL 08/20/2023 8:00 AM [facility] Glucose 88 70 - 99 mg/dL 08/20/2023 8:00 AM [facility] Blood STRUCTURE OF LEFT UPPER LIMB / Unknown Venipuncture / Unknown 08/20/2023 7:00 AM STAFF NURSE ANESTHETIST 08/20/2023 7:33 AM STAFF NURSE ANESTHETIST Chris Marie MD LAB - BLOOD ORDERAB LES [facility] [address], [address] [address], [facility] [phone] * Phosphorus (08/19/2023 3:45 PM STAFF NURSE ANESTHETIST) Phosphorus 2.8 2.5 - 4.5 mg/dL 08/19/2023 4:10 PM STAFF NURSE ANESTHETIST LABORATORY Blood STRUCTURE OF LEFT HAND / Unknown Venipuncture / Unknown 08/19/2023 3:45 PM STAFF NURSE ANESTHETIST 08/19/2023 3:52 PM STAFF NURSE ANESTHETIST Chris Marie MD LAB - BLOOD ORDERAB LES [facility] [address], [address] [place] [address], [place] [phone] * (ABNORMAL) UA with Microscopic reflex to Culture (08/19/2023 2:55 AM STAFF NURSE ANESTHETIST) Color Urine Light Yellow Colorless, Straw, Light Yellow, Yellow 08/19/2023 3:13 AM [facility] Appearance Urine Clear Clear 08/19/19 3:13 AM [facility] Glucose Urine Negative Negative mg/dL 08/19/2023 3:13 AM [facility] Bilirubin Urine Negative Negative 3:13 AM [facility] Ketones Urine 10(A) Negative mg/dL 08/19/2023 3:13 AM [facility] Specific [place] Urine 1.015 1.003 - 1.035 STEPHEN 08/19/2023 3:13 AM [facility] Blood Urine Negative Negative 08/19/2023 3:13 AM [facility] pH Urine 5.5 5.0 - 7.0 08/19/2023 3:13 AM [facility] Protein Albumin Urine Negative Negative mg/dL 08/19/2023 3:13 AM [facility] Urobilinogen Urine Normal Normal, 2.0 mg/dL 08/19/2023 3:13 AM [facility] Nitrite Urine Negative Negative 08/19/2023 3:13 AM [facility] Leukocyte Esterase Urine Negative Negative 08/19/2023 3:13 AM [facility] Mucus Urine Present(A) None Seen /LPF 08/19/2023 3:13 AM [facility] RBC Urine 1 <=2 /HPF 08/19/2023 3:13 AM [facility] WBC Urine 1 <=5 /HPF 08/19/2023 3:13 AM [facility] Urine URINE SPECIMEN OBTAINED BY CLEAN CATCH PROCEDURE / Unknown Non-blood Collection / Unknown 08/19/2023 2:55 AM STAFF NURSE ANESTHETIST 08/19/2023 3:05 AM STAFF NURSE ANESTHETIST Narrative LABORATORY - 08/19/2023 3:13 AM [facility] Urine Culture not indicated Jun Leone MD LAB - URINE OR DERABLES LABORATORY [facility] [address], [address] [place] [address], [facility] [phone] * (ABNORMAL) C. difficile Antigen and Toxins A/B by Enzyme Immunoassay (08/18/2023 11:41 PM STAFF NURSE ANESTHETIST) C. difficile GDH Antigen Positive(A ) Negative STEPHEN 08/19/2023 6:00 AM STAFF NURSE ANESTHETIST [facility] C. difficile Toxin Positive(A ) Negative STEPHEN 08/19/2023 6:00 AM STAFF NURSE ANESTHETIST [facility] Stool RECTAL CONTENTS / Unknown Non-blood Collection / Unknown 08/18/2023 11:41 PM STAFF NURSE ANESTHETIST 08/18/2023 11:51 PM STAFF NURSE ANESTHETIST Narrative [facility] - 08/19/2023 6:00 AM STAFF NURSE ANESTHETIST C. difficile GDH antigen and C. difficile toxin were detected by enzyme immunoassay. Results must be interpreted based on clinical findings and are supportive of C. difficile infection. Luisa Mendoza MD LAB - MICRO GENERAL ORDERABLES [facility] [address] [facility], [address] [place] [address], [facility] [phone] * (ABNORMAL) C. difficile Toxin B PCR with reflex to C. difficile Antigen and Toxins A/B EIA (08/18/2023 11:41 PM STAFF NURSE ANESTHETIST) C Difficile Toxin B by PCR Positive( A) Negative 08/19/2023 5:02 AM STAFF NURSE ANESTHETIST [facility] Comment: Detection of C. [...] Non-blood Collection / Unknown 08/18/2023 11:41 PM STAFF NURSE ANESTHETIST 08/18/2023 11:51 PM STAFF NURSE ANESTHETIST Narrative [facility] - 08/19/2023 5:02 AM STAFF NURSE ANESTHETIST The [employer] Expeditionid Xpert C. difficile Assay, performed on the [employer] Systems, is a qualitative in vitro [...] - MICRO GENERAL ORDERABLES [facility]. [facility] [address] [facility], [address] [place] [address], [facility] [phone] * CT Abdomen Pelvis w/o & w Contrast (08/18/2023 8:56 PM STAFF NURSE ANESTHETIST) Anatomical Region Laterality Modality Abdomen/Pelvis, SUBRAD CT SISSY DY, P CT ABDOMEN PELVIS, RAD CT Computed Tomography 08/18/2023 8:56 PM STAFF NURSE ANESTHETIST Impressions 08/18/2023 9:14 PM STAFF NURSE ANESTHETIST IMPRESSION: 1. ??Pancolitis, likely infectious or inflammatory. [...] Correlate with urinalysis. Narrative 08/18/2023 9:14 PM STAFF NURSE ANESTHETIST EXAM: CT ABDOMEN PELVIS W/O and W CONTRAST LOCATION: [facility] DATE: 08/18/2023 INDICATION: Diarrhea. Concern for [...] ABDOMEN PELVIS W/O and W CONTRAST LOCATION: [facility] DATE: 08/18/2023 INDICATION: Diarrhea. Concern for [...] cystitis. Correlate with urinalysis. Luisa Mendoza MD [facility] CT ORDERABLES * (ABNORMAL) CBC with platelets and differential (08/18/2023 7:11 PM STAFF NURSE ANESTHETIST) WBC Count 17.1(H) 4.0 - 11.0 10e3/uL 08/18/2023 7:50 PM STAFF NURSE ANESTHETIST LABORATORY RBC Count 4.19(L) 4.40 - 5.90 10e6/uL 08/18/2023 7:50 PM STAFF NURSE ANESTHETIST LABORATORY Hemoglobin 12.8(L) 13.3 - 17.7 g/dL 08/18/2023 7:50 PM STAFF NURSE ANESTHETIST LABORATORY Hematocrit 38.2(L) 40.0 - 53.0 % 08/18/2023 7:50 PM STAFF NURSE ANESTHETIST LABORATORY MCV 91 78 - 100 fL 08/18/2023 7:50 PM STAFF NURSE ANESTHETIST LABORATORY MCH 30.5 26.5 - 33.0 pg 08/18/2023 7:50 PM STAFF NURSE ANESTHETIST LABORATORY MCHC 33.5 31.5 - 36.5 g/dL 08/18/2023 7:50 PM STAFF NURSE ANESTHETIST LABORATORY RDW 13.9 10.0 - 15.0 % 08/18/2023 7:50 PM STAFF NURSE ANESTHETIST LABORATORY Platelet Count 117(L) 150 - 450 10e3/uL 08/18/2023 7:50 PM STAFF NURSE ANESTHETIST LABORATORY % Neutrophils 76 % 08/18/2023 7:50 PM STAFF NURSE ANESTHETIST LABORATORY % Lymphocytes 16 % 08/18/2023 7:50 PM STAFF NURSE ANESTHETIST LABORATORY % Monocytes 5 % 08/18/2023 7:50 PM STAFF NURSE ANESTHETIST LABORATORY % Eosinophils 2 % 08/18/2023 7:50 PM STAFF NURSE ANESTHETIST LAB[facility]ATORY % Basophils 0 % 08/18/2023 7:50 PM STAFF NURSE ANESTHETIST LABORATORY % Immature Granulocytes 1 % 08/18/2023 7:50 PM [facility] NRBCs per 100 WBC 0 <1 /100 024 7:50 PM [facility] Absolute Neutrophils 13.1(H) 1.6 - 8.3 10e3/uL 08/18/2023 7:50 PM STAFF NURSE ANESTHETIST LABORATORY Absolute Lymphocytes 2.7 0.8 - 5.3 10e3/uL 08/18/2023 7:50 PM [facility] Absolute Monocytes 0.8 0.0 - 1.3 10e3/uL 08/18/2023 7:50 PM STAFF NURSE ANESTHETIST LABORATORY Absolute Eosinophils 0.3 0.0 - 0.7 10e3/uL 08/18/2023 7:50 PM [facility] Absolute Basophils 0.1 0.0 - 0.2 10e3/uL 08/18/2023 7:50 PM STAFF NURSE ANESTHETIST LABORATORY Absolute Immature Granulocytes 0.2 <=0.4 10e3/uL 08/18/2023 7:50 PM [facility] Absolute NRBCs 0.0 10e3/uL 08/18/2023 7:50 PM [facility] Blood BLOOD SPECIMEN / Unknown Venipuncture / Unknown 08/18/2023 7:11 PM STAFF NURSE ANESTHETIST 08/18/2023 7:42 PM STAFF NURSE ANESTHETIST Luisa Mendoza MD LAB - BLOOD ORDERABL ES LABORATORY [facility] [address], [address] [place] [address], [facility] [phone] * Comprehensive metabolic panel (08/18/2023 7:11 PM [facility]) [facility] Sodium 140 135 - 145 mmol/L 08/18/2023 8:14 PM [facility] Comment:Reference intervals for this test were updated on 04/20/2023 to more accurately reflect our healthy population. There may be differences in the flagging of prior results with similar values performed with this method. Interpretation of those prior results can be made in the context of the updated reference intervals. Potassium 3.8 3.4 - 5.3 mmol/L 08/18/2023 8:14 PM [facility] Carbon Dioxide (CO2) 25 22 - 29 mmol/L 08/18/2023 8:14 PM [facility] Anion Gap 11 7 - 15 mmol/L 08/18/2023 8:14 PM [facility] Urea Nitrogen 16.8 8.0 - 23.0 mg/dL 08/18/2023 8:14 PM [facility] Creatinine 0.80 0.67 - 1.17 mg/dL 08/18/2023 8:14 PM [facility] GFR Estimate 90 >60 mL/min/1. 73m2 08/18/2023 8:14 PM [facility] Calcium 9.0 8.8 - 10.2 mg/dL 08/18/2023 8:14 PM [facility] Chloride 104 98 - 107 mmol/L 08/18/2023 8:14 PM [facility] Glucose 82 70 - 99 mg/dL 08/18/2023 8:14 PM [facility] Alkaline Phosphatase 86 40 - 150 U/L 08/18/2023 8:14 PM [facility] Comment:Reference intervals for this test were updated on 06/08/2023 to more accurately reflect our healthy population. There may be differences in the flagging of prior results with similar values performed with this method. Interpretation of those prior results can be made in the context of the updated reference intervals. AST 23 0 - 45 U/L 08/18/2023 8:14 PM [facility] Comment:Reference intervals for this test were updated on 01/04/2023 to more accurately reflect our healthy population. There may be differences in the flagging of prior results with similar values performed with this method. Interpretation of those prior results can be made in the context of the updated reference intervals. ALT 22 0 - 70 U/L 08/18/2023 8:14 PM [facility] Comment:Reference intervals for this test were updated on 01/04/2023 to more accurately reflect our healthy population. There may be differences in the flagging of prior results with similar values performed with this method. Interpretation of those prior results can be made in the context of the updated reference intervals. Protein Total 6.7 6.4 - 8.3 g/dL 08/18/2023 8:14 PM [facility] Albumin 3.5 3.5 - 5.2 g/dL 08/18/2023 8:14 PM STAFF NURSE ANESTHETIST LABORATORY Bilirubin Total 0.5 <=1.2 mg/dL 08/18/2023 8:14 PM [facility] Blood BLOOD SPECIMEN / Unknown Venipuncture / Unknown 08/18/2023 7:11 PM STAFF NURSE ANESTHETIST 08/18/2023 7:42 PM STAFF NURSE ANESTHETIST Luisa Mendoza MD LAB - BLOOD ORDERABL ES [facility] [address], [address] [place] [address], [facility] [phone] * Magnesium (08/18/2023 7:11 PM STAFF NURSE ANESTHETIST) [facility] Magnesium 2.1 1.7 - 2.3 mg/dL 08/18/2023 8:14 PM [facility] Blood BLOOD SPECIMEN / Unknown Venipuncture / Unknown 08/18/2023 7:11 PM STAFF NURSE ANESTHETIST 08/18/2023 7:42 PM STAFF NURSE ANESTHETIST Luisa Mendoza MD LAB - BLOOD ORDERABL ES [facility] [address], [address] [place] [address], [place] [phone] documented in this encounter Visit Diagnoses Diagnosis C. difficile colitis- Primary Intestinal infection due to clostridium difficile Pancolitis (H) [place] ulcerative (chronic) colitis Intra-abdominal abscess (H) Peritoneal abscess C. difficile colitis Intestinal infection due to clostridium difficile Clostridioides difficile infection Pancolitis (H) [place] ulcerative (chronic) colitis Intra-abdominal abscess (H) Peritoneal [...] exceed 4 grams/day. $Given 08/19/2023 10:05 PM STAFF NURSE ANESTHETIST 650 mg ALPRAZolam (XANAX) tablet 0.5 mg 0.5 mg, Oral, 2 TIMES DAILY PRN, anxiety, Starting on Wed08/19/23 at 0242, Avoid taking with grapefruit juice $Given 08/20/2023 7:36 AM STAFF NURSE ANESTHETIST 0.5 mg calcium carbonate (TUMS) chewable tablet 1,000 mg 1,000 mg, Oral, 4 TIMES DAILY PRN, heartburn, Starting on Wed08/19/23 at 0243 $Given 08/20/2023 9:48 PM STAFF NURSE ANESTHETIST 1,000 mg fidaxomicin (DIFICID) tablet 200 mg STAT, 200 mg, Oral, ONCE, On Wed08/18/23 at 2250, For 1 dose, Indications: Clostridioides difficile $Given 08/18/2023 11:43 PM STAFF NURSE ANESTHETIST 200 mg fidaxomicin (DIFICID) tablet 200 mg Routine, 200 mg, Oral, 2 TIMES DAILY, First dose on Wed08/19/23 at 0900, ID consulted, will see 08/19, Indications: Clostridioides difficile $Given 08/21/2023 9:20 AM STAFF NURSE ANESTHETIST 200 mg $Given 08/20/2023 9:48 PM STAFF NURSE ANESTHETIST 200 mg $Given 08/20/2023 9:30 AM STAFF NURSE ANESTHETIST 200 mg hydrALAZINE (APRESOLINE) injection 10 mg [...] Wed08/19/23 at 0244 $Given 08/21/2023 11:14 AM STAFF NURSE ANESTHETIST 10 mg iopamidol (ISOVUE-370) solution 83 mL 83 mL, Intravenous, ONCE, On Wed08/18/23 at 2030, For 1 dose $Given 08/18/2023 8:42 PM STAFF NURSE ANESTHETIST 83 mLs lactobacillus rhamnosus (GG) (CULTURELL) capsule 1 capsule 1 capsule, Oral, DAILY, First dose on Wed08/21/23 at 0930, Administer at least 2 hours before or after oral antibiotics. Capsules may be opened. $Given 08/21/2023 10:41 AM STAFF NURSE ANESTHETIST 1 caps ule latanoprost (XALATAN) 0.005 % ophthalmic solution 1 drop 1 drop, Both Eyes, EVERY EVENING, First dose on Wed08/19/23 at 2000 $Given 08/19/2023 10:00 PM STAFF NURSE ANESTHETIST 1 drop lisinopril (ZESTRIL) tablet 20 mg 20 mg, Oral, DAILY, First dose on Wed08/19/23 at 0930 $Given 08/21/2023 9:19 AM STAFF NURSE ANESTHETIST 20 mg $Given 08/20/2023 9:30 AM STAFF NURSE ANESTHETIST 20 mg $Given 08/19/2023 9:15 AM STAFF NURSE ANESTHETIST 20 mg metroNIDAZOLE (FLAGYL) infusion 500 mg Routine, 500 mg, Intravenous, EVERY 8 HOURS, First dose on Wed08/19/23 at 0300, Do not refrigerate., Indications: Clostridioides difficile $New Bag 08/20/2023 10:39 AM STAFF NURSE ANESTHETIST 500 mg $New Bag 08/20/2023 2:50 AM STAFF NURSE ANESTHETIST 500 mg $New Bag 08/19/2023 6:12 PM STAFF NURSE ANESTHETIST 500 mg multivitamin w/minerals (THERA-VIT-M) tablet 1 tablet 1 tablet, Oral, EVERY 24 HOURS, First dose on Bree 08/19/23 at 0930 $Given 08/21/2023 9:19 AM STAFF NURSE ANESTHETIST 1 tablet $Given 08/20/2023 9:30 AM STAFF NURSE ANESTHETIST 1 tablet $Given 08/19/2023 9:15 AM STAFF NURSE ANESTHETIST 1 tablet naloxone (NARCAN) injection 0.2 mg [...] new patch. $Patch/Med Applied 08/21/2023 9:21 AM STAFF NURSE ANESTHETIST 1 patch Left Arm $Patch/Med Applied 08/20/2023 9:30 AM STAFF NURSE ANESTHETIST 1 patch Right Arm $Patch/Med Applied 08/19/2023 9:16 AM STAFF NURSE ANESTHETIST 1 patch Left Arm nicotine Patch in [...] last oral dose $Given 08/20/2023 9:30 AM STAFF NURSE ANESTHETIST 40 mEq potassium chloride ER (KLOR-CON M) CR tablet 40 mEq 40 mEq, Oral, ONCE, On Wed08/21/23 at 1000, For 1 dose, Potassium level 3.1 - 3.4 mmol/L Ordered from the Potassium replacement order set. DO NOT CRUSH, Potassium Replacement: Potassium level 3.1-3.4 mmol/L, Recheck: Potassium level 4 hours AFTER last oral dose $Given 08/21/2023 10:41 AM STAFF NURSE ANESTHETIST 40 mEq Saline As instructed, 63 mL, ONCE, On Wed08/18/23 at 2030, For 1 dose, This entry is for use by Radiology to intermittently used as a flush in patients receiving a CT scan. $Given 08/18/2023 8:41 PM STAFF NURSE ANESTHETIST 63 mL s simvastatin (ZOCOR) tablet 20 mg 20 mg, Oral, AT BEDTIME, First dose on Wed08/19/23 at 2200 $Given 08/20/2023 9:48 PM STAFF NURSE ANESTHETIST 20 mg $Given 08/19/2023 10:00 PM STAFF NURSE ANESTHETIST 20 mg sodium chloride (PF) 0.9% PF flush 3 mL 3 mL, Intracatheter, EVERY 8 HOURS, First dose on Wed08/19/23 at 0300, to lock peripheral IV dormant line $Given 08/21/2023 10:43 AM STAFF NURSE ANESTHETIST 3 mLs $Given 08/21/2023 2:34 AM STAFF NURSE ANESTHETIST 3 mLs sodium chloride 0.9 % infusion at 100 mL/hr, Intravenous, CONTINUOUS, Starting on Wed08/19/23 at 0130, Until Wed08/20/23 at 1036 $New Bag 08/19/2023 12:48 PM STAFF NURSE ANESTHETIST 100 mL/hr $New Bag 08/19/2023 1:21 AM STAFF NURSE ANESTHETIST 100 mL/hr traMADol (ULTRAM) tablet 50 mg 50 mg, Oral, EVERY 6 HOURS PRN, moderate pain, Starting on Wed08/19/23 at 0240 $Given 08/19/2023 6:33 PM STAFF NURSE ANESTHETIST 50 mg $Given 08/19/2023 10:14 AM STAFF NURSE ANESTHETIST 50 mg traMADol (ULTRAM) tablet 50 mg 50 mg, Oral, ONCE, On Wed08/19/23 at 0300, For 1 dose $Given 08/19/2023 2:47 AM STAFF NURSE ANESTHETIST 50 mg documented in this encounter Active and Recently Administered Medications Times are shown in STAFF NURSE ANESTHETIST. Scheduled Medication Order 08/19/2023 08/20/2023 08/21/2023 fidaxomicin [...] 1 capsule, Oral, DAILY, First dose on [facility] 08/21/23 at 0930, Administer at least [...] 08/19/23 at 0244 1114 ($Given - Provider: gAustín Prince RN) lidocaine (LMX4) cream Topical, EVERY [...] Out C-difficile 08/18/2023 08/18/2023 024 5:02 AM STAFF NURSE ANESTHETIST C-difficile 08/18/2023 08/18/2023 09/17/2023 11:3 9 PM STAFF NURSE ANESTHETIST documented as of this encounter Care Teams Boss Dyer Relationship Specialty Start Date End Date No Ref-Primary, Physician PCP - General 03/25/23 10/19/23 documented as of this encounter
--- OUTSIDE RECORDS SUMMARY | 2023-11-15 12:52 | XMS_ITS | Encounter Summary ---
Author Name Unknown Organization [facility] Address [address] [place] [address] Care Team Providers Care Logistics/Shipper Name Role Phone No Ref-Primary, Physician Primary [...] on filedocumented in this encounter Care Teams Logistics/Shipper Relationship Specialty Start Date End Date No Ref-Primary, Physician PCP - General 03/25/23 10/19/23 documented as of this encounter
== END 2023-11-10 15:45 | disposition home or self-care (01) ==
LOC: NFLDREF 11-15 12:48
PROVIDERS: PCP Family Medicine; Referring Provider Family Medicine; Visit Provider Nurse Practitioner
DX: A04.72 Enterocolitis due to Clostridium difficile, not specified as recurrent (principal)
CPT/HCPCS: 87493

== ENCOUNTER 2023-11-12 17:24 | Outpatient (REF) | payer MEDICARE, SELFPAY ==
--- OUTSIDE RECORDS SUMMARY | 2023-11-12 17:27 | XMS_ITS | Continuity of Care Document ---
Author Name Unknown Organization [facility] Address [address] [place] [address] Phone Care Team Providers Care Lead Security Officer Name Role Phone Emmanuel Marya ROMAN Unavailable [...] by oral route 2 times every week [id number] UNITS - Active Procedures Procedure Date Est [...] Providers Copied on Encounter MONSERRAT Ly, [address], [place], [place], [id number], [place] tel:[phone] [facility] No Information 3 [facility]. [address], [place], [address], [place]. tel:[phone] Referring Provider: Kaleb Lee, [address], [place], [address] . tel:[phone] Est Pt Eval 25 Min [facility], [address], [place], [place], [id number], [place] tel:[phone] [facility] back pain (chief complaint) Body mass index (BMI) 26.0-26.9, adultRadiculopathy, lumbar region 3 Emmanuel Marya. [address], [place], [address], [place]. tel:[phone] Referring Provider: Kaleb Lee, [address], [place], [address] . tel:[phone] [facility], [address], [place], [place], [id number], [place] tel:[phone] [facility] No Information 3 Jesus Zapata. [address], [place], [place], [id number], [place]. tel:[phone] Referring Provider: Benny Lee, [address], [place], [address] . tel:[phone] [facility], [address], [place], [address], [place] tel:[phone] [facility] back pain (chief complaint) Radiculopathy, lumbar regionRadiculopathy , lumbar region 3 [facility]. [address], [place], [place], [id number], [place]. tel:[phone] Referring Provider: Benny Lee, [address], [place], [address] . tel:[phone] [facility], [facility], [address], [place], [place], [id number], [place] tel:[phone] [facility] No Information 3 Jesus Zapata. [address], [place], [place], [address], [place]. tel:[phone] Referring Provider: Benny Lee, [address], [place], [address] . tel:[phone] New Pt Eval 60 Min [facility], [facility], [address], [place], [place], [id number], [place] tel:[phone] [facility] back pain (chief complaint) Radiculopathy, lumbar regionVertebrogenic low back painBody mass index (BMI) 27.0-27.9, adult Fe- 3 Foster Florin. [address], [place], [address], [place]. tel:[phone] Referring Provider: Kaleb Lee, [address], [place], [address] . tel:[phone] Family History Family Member Type Diagnosis Age At Onset No Information Payers Payer name Insurance type Covered constitution party ID Anne brian(s) Jacki Medicare PPO 16 [id number] Social History Type Description Quantity Date Captured [...]
--- OUTSIDE RECORDS SUMMARY | 2023-11-12 17:27 | XMS_ITS | Clinical Summary ---
Author Name Unknown Organization [place] Address [address] [place] [id number] Care Team Providers Care Manager Planning Name Role Phone Juan Pablo Buckley MD Primary Care Provider [phone] Allergies No known active allergies Medications Medication Sig Dispensed Refills Start Date End Date Status simvastatin (ZOCOR) 20 MG tablet Take 20 mg by mouth At Bedtime Active lisinopril (ZESTRIL) 20 MG tablet Take 20 mg by mouth at bedtime Active multivitamin w/minerals (MULTI-VITAMIN) tablet Take 1 tablet by mouth daily Active acetaminophen (TYLENOL) 325 MG tabletIndication s:Intra-abdomina l abscess (H) Take 2 tablets (650 mg) by mouth every 6 hours as needed for mild pain Maximum of 4,000 mg of acetaminophen in any 24 hour period. 03/30/2023 Active ALPRAZolam (XANAX) 0.5 MG tablet Take 0.5 mg by mouth 2 times daily as needed for anxiety Active latanoprost (XALATAN) 0.005 % ophthalmic solution Place 1 drop into both eyes every 3 days Active nitroGLYcerin (NITROSTAT) 0.[address] 0.4 mg under the tongue every 5 minutes as needed for chest pain 08/05/2022 Active lactobacillus rhamnosus, GG, (CULTURELL) capsule Take 1 capsule by mouth daily Active niacin 50 MG tablet Take 50 mg by mouth daily (with breakfast) Active nicotine (COMMIT) [address] 2 mg inside cheek 3 times daily Active oxyCODONE (ROXICODONE) 5 MG tabletIndication s:S/P colectomy Take 1 tablet (5 mg) by mouth every 4 hours as needed for moderate pain 15 tablet 10/27/2023 Active NONFORMULARY 3 times daily Nicorette tabs ? 4 Discontinue d(Med Rec(No AVS / No eCancel)) vancomycin (VANCOCIN) 125 MG capsule Take 125 mg by mouth 2 times daily 4 Discontinue d(Stop at Discharge) Active Problems Problem Noted Date Diagnosed Date Diverticulitis 10/20/2023 Pancolitis 08/18/2023 C. difficile colitis 08/18/2023 Clostridioides difficile infection 07/16/2023 Intra-abdominal abscess 03/25/2023 Encounters Date Type Department Care Team Description 10/20/2023 1:30 PM CDT Anesthesia Event [facility] PeriOp Services [address] [phone] Brandon Gold MD 10/20/2023 12:50 PM CDT - 10/20/2023 6:30 PM CDT Surgery [facility] [address] [phone] Tammy Montoya MD Intraoperative colonoscopy 10/20/2023 10:11 AM CDT - 10/27/2023 3:38 PM CDT Hospital Encounter [facility] 5 Medical Surgical [address] [phone] Tammy Montoya MD S/P colectomy (Primary Dx) Discharge Disposition: Home-Health Care [facility] 10/20/2023 Travel 10/12/2023 Travel 08/20/2023 Hospital Encounter [facility] PeriOp Services [address] [phone] Mauricio Padilla MD Colonic diverticular abscess 08/18/2023 9:47 PM ALUMINUM WELDER - 08/21/2023 1:51 PM ALUMINUM WELDER Hospital Encounter [facility] [address] [place] [phone] Luisa Mendoza MD Schneider, Jun Zapata MD Clostridioides difficile infection (Primary Dx); Pancolitis (H); Intra-abdominal abscess (H); C. difficile colitis Discharge Disposition: Home-Health Care [facility] 08/18/2023 Travel 08/18/2023 Orders Only [facility] [address] [place] [phone] Tammy Montoya MD C. difficile diarrhea (Primary Dx) 08/17/2023 Orders Only [facility] [address] [place] [phone] Tammy Montoya MD from Last 3 Months Social History Tobacco [...] Sign Reading Time Taken Comments Blood Pressure 170/79 10/27/2023 7:37 AM CDT Pulse 62 10/27/2023 7:23 AM CDT Temperature 36.7 ??C (98.1 ??F) 10/27/2023 7:23 AM CD T Respiratory Rate 16 10/27/2023 7:23 AM CDT Oxygen Saturation 90% 10/27/2023 7:23 AM CDT Inhaled Oxygen Concentration - - Weight 69.7 kg (153 lb 9.6 oz) 10/20/2023 10:43 AM CDT Height 170.2 cm (5' 7.01) 10/20/2023 10:43 AM C DT Body Mass Index 24.05 10/20/2023 10:43 AM CDT Plan of Treatment Health Maintenance Due Date Last Done Comments ADVANCE CARE PLANNING 1945 ANNUAL REVIEW OF ORDERS 1945 LIPID 1945 NICOTINE/TOBACCO CESSATION COUNSELING Q 1 YR 1945 HEPATITIS C SCREENING 1962 ZOSTER IMMUNIZATION (1 of 2) 1963 LUNG CANCER SCREENING 1994 RSV VACCINE ( & 60+) (1 - 1-dose 60+ series) 2004 FALL RISK ASSESSMENT 2009 MEDICARE ANNUAL WELLNESS VISIT 2009 DTAP/TDAP/TD IMMUNIZATION (1 - Tdap) 07/03/2018 07/02/2018 PHQ-2 (once per calendar year) 2023 GLUCOSE 10/24/2026 10/25/2023, 09/25, 10/22/2023, Additional history exists Pneumococcal Vaccine: 65+ Years [...] Procedure Name Priority Date/Time Associated Diagnosis Comments PLATELET COUNT Routine 10/26/2023 6:08 AM CDT CBC WITH PLATELETS Routine 10/25/2023 7: 49 AM CDT BASIC METABOLIC PANEL Routine 10/25/2023 7:49 AM CDT XR ABDOMEN PORT 1 VIEW Routine 10/23/2023 4:14 PM CDT BASIC METABOLIC PANEL STAT 10/23/2023 9:50 AM CDT XR ABDOMEN 2 VIEWS Routine 10/23/2023 9: 42 AM CDT CBC WITH PLATELETS STAT Add-on 10/23/2023 8: 45 AM CDT PLATELET COUNT Routine 10/23/2023 8:45 AM CDT GLUCOSE BY METER Routine 10/22/2023 6:13 AM CDT GLUCOSE BY METER Routine 10/21/2023 6:35 AM CDT PHOSPHORUS Routine 10/21/2023 6:22 AM CDT MAGNESIUM Routine 10/21/2023 6:22 AM CDT CBC WITH PLATELETS Routine 10/21/2023 6: 22 AM CDT BASIC METABOLIC PANEL Routine 10/21/2023 6:22 AM CDT PLATELET COUNT Routine 10/20/2023 8:56 PM CDT SURGICAL PATHOLOGY EXAM Routine 10/20/2023 1:59 PM CDT ANE AIRWAY ETT PERFORMABLE Routine 10/20/2023 1:46 PM CDT COLECTOMY, ROBOT-ASSISTED, USING DA ANA LAURA XI 10/20/2023 1:34 PM CDT Colonic diverticular abscess Special Needs 4hr req COLONOSCOPY 10/20/2023 1:34 PM CDT Colonic diverticular abscess Special Needs 4hr req COLONOSCOPY Routine 10/20/2023 1:02 PM CDT GLUCOSE BY METER Routine 10/20/2023 10:3 4 AM CDT EKG CARDIAC - HIM SCAN 10/06/2023 12:00 AM CDT EKG CARDIAC - HIM SCAN 10/06/2023 12:00 AM CDT CBC WITH PLATELETS & DIFFERENTIAL Routine 08/21/2023 7:42 AM ALUMINUM WELDER CBC WITH PLATELETS AND DIFFERENTIAL Routine 08/21/2023 7:42 AM ALUMINUM WELDER BASIC METABOLIC PANEL Routine 08/21/2023 7:42 AM ALUMINUM WELDER PHOSPHORUS Routine 08/21/2023 7:42 AM ALUMINUM WELDER POTASSIUM Timed 08/20/2023 10:02 PM ALUMINUM WELDER CBC WITH PLATELETS & DIFFERENTIAL Routine 08/20/2023 7:00 AM ALUMINUM WELDER CBC WITH PLATELETS AND DIFFERENTIAL Routine 08/20/2023 7:00 AM ALUMINUM WELDER PHOSPHORUS Routine 08/20/2023 7:00 AM ALUMINUM WELDER BASIC METABOLIC PANEL Routine 08/20/2023 7:00 AM ALUMINUM WELDER PHOSPHORUS Routine 08/19/2023 3:45 PM ALUMINUM WELDER ROUTINE UA WITH MICROSCOPIC REFLEX TO CULTURE Routine 08/19/2023 2:55 AM ALUMINUM WELDER C. DIFFICILE ANTIGEN AND TOXINS A/B BY ENZYME IMMUNOASSAY STAT 08/18/2023 11:41 PM ALUMINUM WELDER C. DIFFICILE TOXIN B PCR WITH REFLEX TO C. DIFFICILE ANTIGEN AND TOXINS A/B EIA STAT 08/18/2023 11:[address] ABDOMEN PELVIS W/O & W CONTRAST STAT 08/18/2023 8:56 PM ALUMINUM WELDER CBC WITH PLATELETS & DIFFERENTIAL STAT 08/18/2023 7:11 PM ALUMINUM WELDER CBC WITH PLATELETS AND DIFFERENTIAL STAT 08/18/2023 7:11 PM ALUMINUM WELDER COMPREHENSIVE METABOLIC PANEL STAT 08/18/2023 7:11 PM ALUMINUM WELDER MAGNESIUM STAT 08/18/2023 7:11 PM ALUMINUM WELDER from Last 3 Months Results * Platelet count (10/26/2023 6:08 AM CDT) Only the most recent of3 resultswithin the time period is included. Platelet Count 345 150 - 450 10e3/uL 10/26/2023 6:20 AM CDT [facility] Blood STRUCTURE OF RIGHT UPPER LIMB / Unknown Venipuncture / Unknown 10/26/2023 6:08 AM CDT 10/26/2023 6:17 AM CDT Tammy Montoya MD LAB - BLOOD ORDER CHANEL [facility] [address] Lab (1st floor, no room number) [place] [phone] * Basic metabolic panel (10/25/2023 7:49 AM CDT) Only the most recent of5 resultswithin the time period is included. Sodium 140 135 - 145 mmol/L 10/25/2023 8:17 AM CDT [facility] Comment:Reference intervals for this test were updated on 04/20/2023 to more accurately reflect our healthy population. There may be differences in the flagging of prior results with similar values performed with this method. Interpretation of those prior results can be made in the context of the updated reference intervals. Potassium 3.5 3.4 - 5.3 mmol/L 10/25/2023 8:17 AM CDT [facility] Chloride 101 98 - 107 mmol/L 10/25/2023 8:17 AM CDT [facility] Carbon Dioxide (CO2) 29 22 - 29 mmol/L 10/25/2023 8:17 AM CDT [facility] Anion Gap 10 7 - 15 mmol/L 10/25/2023 8:17 AM CDT [facility] Urea Nitrogen 15.4 8.0 - 23.0 mg/dL 10/25/2023 8:17 AM CDT [facility] Creatinine 0.78 0.67 - 1.17 mg/dL 10/25/2023 8:17 AM CDT [facility] GFR Estimate >90 >60 mL/min/1. 73m2 10/25/2023 8:17 AM CDT [facility] Calcium 8.9 8.8 - 10.2 mg/dL 10/25/2023 8:17 AM CDT [facility] Glucose 92 70 - 99 mg/dL 10/25/2023 8:17 AM CDT [facility] Blood STRUCTURE OF RIGHT UPPER LIMB / Unknown Venipuncture / Unknown 10/25/2023 7:49 AM CDT 10/25/2023 7:57 AM CDT Adán Mcneal MD LAB - BLOOD ORDERABL ES [facility] [address] Lab (1st floor, no room number) [place] [address], [facility] * (ABNORMAL) CBC with platelets (10/25/2023 7:49 AM CDT) Only the most recent of3 resultswithin the time period is included. WBC Count 9.8 4.0 - 11.0 10e3/uL 10/25/2023 7:59 AM CDT [facility] RBC Count 3.91(L) 4.40 - 5.90 10e6/uL 10/25/2023 7:59 AM CDT [facility] Hemoglobin 12.0(L) 13.3 - 17.7 g/dL 10/25/2023 7:59 AM CDT [facility] Hematocrit 35.9(L) 40.0 - 53.0 % 10/25/2023 7:59 AM CDT [facility] MCV 92 78 - 100 fL 10/25/2023 7:59 AM CDT [facility] MCH 30.7 26.5 - 33.0 pg 10/25/2023 7:59 AM CDT [facility] MCHC 33.4 31.5 - 36.5 g/dL 10/25/2023 7:59 AM CDT [facility] RDW 15.5(H) 10.0 - 15.0 % 10/25/2023 7:59 AM CDT [facility] Platelet Count 337 150 - 450 10e3/uL 10/25/2023 7:59 AM CDT [facility] Blood STRUCTURE OF RIGHT UPPER LIMB / Unknown Venipuncture / Unknown 10/25/2023 7:49 AM CDT 10/25/2023 7:57 AM CDT Adán Mcneal MD LAB - BLOOD ORDERABL ES [facility] [address] [facility] Lab (1st floor, no room number) [place] [phone] * XR Abdomen Port 1 View (10/23/2023 4:14 PM CDT) Anatomical Region Laterality Modality Abdomen/Pelvis Digital Radiogra phy 10/23/2023 4:14 PM CDT Impressions 10/23/2023 7:05 PM CDT IMPRESSION: Enteric tube in the body the stomach. Overall bowel loops not well assessed on this study for NG tube placement. Narrative 10/23/2023 7:05 PM CDT EXAM: XR ABDOMEN PORT 1 VIEW LOCATION: [facility] DATE: 10/23/2023 INDICATION: NG tube placement COMPARISON: None. Procedure Note Venkat Martinez MD - 10/23/2023 EXAM: XR ABDOMEN PORT 1 VIEW LOCATION: [facility] DATE: 10/23/2023 INDICATION: NG tube placement COMPARISON: None. IMPRESSION: Enteric tube in the body the stomach. Overall bowel loops notwell assessed on this study for NG tube placement. Tammy Montoya MD IMG DIAGNOSTIC IM AGING ORDERABLES * XR Abdomen 2 Views (10/23/2023 9:42 AM CDT) Anatomical Region Laterality Modality Abdomen/Pelvis Digital Radiogra phy 10/23/2023 9:42 AM CDT Impressions 10/23/2023 2:07 PM CDT IMPRESSION: Mildly distended large and small bowel loops throughout the abdomen most likely reflecting ileus, although obstruction would be difficult to exclude. A few scattered air-fluid levels. No convincing free air or pneumatosis. Presumed endoscopy clip in the right colon. Probable bibasilar atelectasis. Degenerative changes of the spine. Narrative 10/23/2023 2:07 PM CDT EXAM: XR ABDOMEN 2 VIEWS LOCATION: [facility] DATE: 10/23/2023 INDICATION: Evaluate for ileus. COMPARISON: CT abdomen and pelvis 08/18/2023. Procedure Note Jillian Nicole MD - 10/23/2023 EXAM: XR ABDOMEN 2 VIEWS LOCATION: [facility] DATE: 10/23/2023 INDICATION: Evaluate for ileus. COMPARISON: CT abdomen and pelvis 08/18/2023. IMPRESSION: Mildly distended large and small bowel loops throughout theabdomen most likely reflecting ileus, although obstruction would bedifficult to exclude. A few scattered air-fluid levels. No convincing freeair or pneumatosis. Presumed endoscopy clip in the right colon. Probable bibasilar atelectasis. Degenerativechanges of the spine. Adán Mcneal MD IMG DIAGNOSTIC IMAGI NG ORDERABLES * (ABNORMAL) Glucose by meter (10/22/2023 6:13 AM CDT) Only the most recent of3 resultswithin the time period is included. GLUCOSE BY METER POCT 149(H) 70 - 99 mg/dL 10/22/2023 6:20 AM CDT LABORATORY POC Blood, Capillary BLOOD SPECIMEN / Unknown 10/22/2023 6:13 AM CDT 10/22/2023 6:20 AM CDT Tammy Montoya MD LAB - [facility] POCT LABORATORY [facility] Acute Care Lab [address] [facility] Lab (1st floor, no room number) [place] [address] * Phosphorus (10/21/2023 6:22 AM CDT) Only the most recent of4 resultswithin the time period is included. Phosphorus 2.9 2.5 - 4.5 mg/dL 10/21/2023 6:58 AM CDT LABORATORY Blood STRUCTURE OF RIGHT UPPER LIMB / Unknown Venipuncture / Unknown 10/21/2023 6:22 AM CDT 10/21/2023 6:31 AM CDT Tammy Montoya MD LAB - BLOOD ORDER CHANEL Performing Organization Address [facility] Co de Phone Number [facility] [address] Lab (1st floor, no room number) [address] * Magnesium (10/21/2023 6:22 AM CDT) Only the most recent of2 resultswithin the time period is included. Magnesium 1.8 1.7 - 2.3 mg/dL 10/21/2023 6:58 AM CDT LABORATORY Blood STRUCTURE OF RIGHT UPPER LIMB / Unknown Venipuncture / Unknown 10/21/2023 6:22 AM CDT 10/21/2023 6:31 AM CDT Tammy Montoya MD LAB - BLOOD ORDER CHANEL Performing Organization Address [facility] Co de Phone Number [facility] [address] [facility], no room number) [address] * Surgical Pathology Exam (10/20/2023 1:59 PM CDT) Case Report Surgical Pathology Report ? Case: [id number] ? Authorizing Provider: ??Tammy Montoya MD ?? Collected: ? 10/20/2023 01:59 PM ? Ordering Location: ? [facility] ?? Received: ?10/20/2023 02:44 PM ? Main OR ? Pathologist: ? Sharad Tyler MD ? Specimens: ?? A) - Large Intestine, Colon, Ascending, ASCENDING COLON POLYP ? B) - Large Intestine, Colon, Sigmoid, Sigmoid colon - suture madison distal ? 10/22/2023 2:54 PM CDT LABORATORY Final Diagnosis A(1). Colon, Ascending, polyp, polypectomy: -Fragments of sessile serrated adenoma(s) -Adenoma extends to multiple mucosal edges of fragments. -Negative for conventional dysplasia and malignancy B(2). Colon, sigmoid, segmental resection: -Colon with acute diverticulitis, subserosal abscess and focal acute serositis. -Proximal and distal margins are viable no significant pathological changes. -Negative for dysplasia or malignancy 10/22/2023 2:54 PM CDT LABORATORY Clinical Information Procedure: Intraoperative colonoscopy robotic sigmoid colectomy possible open, possible stoma Pre-op Diagnosis: Colonic diverticular abscess [K57.20] Post-op Diagnosis: K57.20 - Colonic diverticular abscess [ICD-10-CM] 10/22/2023 2:54 PM CDT LABORATORY Gross Description A(1). Large Intestine, Colon, Ascending, ASCENDING COLON POLYP: The specimen is received in formalin, labeled with the patient's name, medical record number and other identifying information designated ascending colon polyp. It consists of 2 polypoid tissue fragments, 1.0 and 1.1 cm. Inked blue and black. Sectioned and entirely submitted in 1 cassette. (MEET Oliveira) B(2). Large Intestine, Colon, Sigmoid, Sigmoid colon - suture madison distal: The specimen is received in formalin, labeled with the patient's name, medical record number and other identifying information designated sigmoid colon. It consists of a 12.5 cm in length by up to 4.1 cm in diameter portion of bowel stapled closed at each resection margin. A stitch designates distal. There is up to 2.1 cm of shaggy fat. The wall thickness averages 0.3 cm. The mucosa is flowers-pink and contains a normal folding pattern. There are multiple uncomplicated diverticula throughout the specimen. A definitive mass is not grossly identified. Also received in the same container is a 3.1 cm in length by 2.5 cm in diameter portion of additional bowel. No mass is grossly identified within the additional portion of bowel the mucosa is flowers-pink and contains a normal folding pattern. Fertilizer Applicator sections are submitted as follows: B1-proximal margin, en face B2-distal margin, en face [id number] diverticula and mucosa B7-additional portion of bowel mucosa (MEET Oliveira) 10/22/2023 2:54 PM CDT LABORATORY Microscopic Description Microscopic examination was performed. 10/22/2023 2:54 PM CDT LABORATORY Performing Labs The technical component of this testing was completed at [facility] 10/22/2023 2:54 PM CDT LABORATORY Case Images 10/22/2023 2:54 PM CDT LABORATORY Polyp ASCENDING COLON STRUCTURE / Unknown 10/20/2023 1:59 PM CDT 10/20/2023 2:44 PM CDT Tissue specimen (specimen) SIGMOID COLON PART / Unknown 10/20/2023 4:32 PM CDT 10/20/2023 6:13 PM CDT Tammy ALMARAZ - KAYKAY LOPEZ LABORATORY [facility] [address] [facility] ([facility]st floor, no room number) [place] [address], [facility] * ANE AIRWAY ETT PERFORMABLE (10/20/2023 1:46 PM CDT) Narrative Layla Abdullahi APRN GUT SNATCHER - 10/20/2023 1:46 PM CDT Layla Abdullahi APRN GUT SNATCHER ? 10/20/2023 ??1:52 PM Airway ? Patient location during procedure: OR ? Procedure Start/Stop Times: 10/20/2023 1:46 PM Staff - ? Anesthesiologist: ??Layla Abdullahi APRN GUT SNATCHER ? Performed By: GUT SNATCHER Consent for Airway ? Urgency: elective Indications and Patient Condition ? Indications for airway management: tam-procedural ? Induction type:intravenous ? Mask difficulty assessment: 1 - vent by mask Final Airway Details ? Final airway type: endotracheal airway ? Successful airway: ETT - single and Oral Endotracheal Airway Details ? ETT size (mm): 8.0 ? Cuffed: yes ? Successful intubation technique: direct laryngoscopy ? DL Blade Type: Mishra 3 ? Grade View of Cords: 1 ? Adjucts: stylet ? Position: Right ? Bite block used: None Post intubation assessment ? Placement verified by: capnometry, equal breath sounds and chest rise ? Number of attempts at approach: 1 ? Secured with: tape ? Ease of procedure: easy ? Dentition: Intact Medication(s) Administered Medication Administration Time: 10/20/2023 1:46 PM Brandon Gold MD [place] ANESTHESIA * COLONOSCOPY (10/20/2023 1:02 PM CDT) [facility] Patient Name: Theodore MontgomeryLucas Wu ? Procedure Date: 10/20/2023 1:02 PM ? Date of : 1945 ?Admit Type: Inpatient Age: 78 ? Gender: Male Attending MD: TAMMY MONTOYA MD, ??Total Sedation Time: per anesthesia record. Instrument Name: 223 - Adult Colonoscope Procedure: ?Colonoscopy Indications: ?Screening for colorectal malignant neoplasm, ?Incidental - Follow-up of diverticulitis Providers: ?TAMMY MONTOYA MD (Doctor) Referring MD: ? Medicines: ?General Anesthesia Complications: ?No immediate complications. Procedure: ?Pre-Anesthesia Assessment: ?- Prior to the procedure, a History and Physical ?was performed, and patient medications and ?allergies were reviewed. The patient's tolerance of ?previous anesthesia was also reviewed. The risks ?and benefits of the procedure and the sedation ?options and risks were discussed with the patient. ?All questions were answered, and informed consent ?was obtained. Prior Anticoagulants: The patient has ?taken no anticoagulant or antiplatelet agents ?except for aspirin. ASA Grade Assessment: III - A ?patient with severe systemic disease. After ?reviewing the risks and benefits, the patient was ?deemed in satisfactory condition to undergo the ?procedure. ?- Prior to the procedure, a History and Physical ?was performed, and patient medications, allergies ?and sensitivities were reviewed. The patient's ?tolerance of previous anesthesia was reviewed. ?- After reviewing the risks and benefits, the ?patient was deemed in satisfactory condition to ?undergo the procedure in an ambulatory setting. ?- Prior to the procedure, a History and Physical ?was performed, and patient medications, allergies ?and sensitivities were reviewed. The patient's ?tolerance of previous anesthesia was reviewed. ?- Pre-procedure physical examination revealed no ?contraindication s to sedation. ?- The heart rate, respiratory rate, oxygen ?saturations, blood pressure, adequacy of pulmonary ?ventilation, and response to care were monitored ?throughout the procedure. ?- The heart rate, respiratory rate, oxygen ?saturations, blood pressure, adequacy of pulmonary ?ventilation, and response to care were monitored ?throughout the procedure. ?After obtaining informed consent, the colonoscope ?was passed under direct vision. Throughout the ?procedure, the patient's blood pressure, pulse, and ?oxygen saturations were monitored continuously. The ?Olympus Adult Colonoscope, Model # CF-WP354C, ?Censitrac # [id number] was introduced through the ?anus and advanced to the terminal ileum. The ?colonoscopy was performed without difficulty. The ?patient tolerated the procedure well. The quality ?of the bowel preparation was adequate. ? Findings: ? The perianal and digital rectal examinations were normal. Pertinent ? negatives include normal sphincter tone, no palpable rectal lesions and ? normal prostate (size, shape, and consistency). ? The terminal ileum appeared normal. ? A 16 mm polyp was found in the ascending colon. The polyp was sessile. ? The polyp was removed with a piecemeal technique using a cold snare. ? Resection and retrieval were complete. To prevent bleeding after the ? polypectomy, one hemostatic clip was successfully placed. There was no ? bleeding at the end of the procedure. ? Multiple small and large-mouthed diverticula were found in the sigmoid ? colon. ? The exam was otherwise without abnormality on direct and retroflexion ? views. ? Impression: ? - The examined portion of the ileum was normal. ?- One 16 mm polyp in the ascending colon, removed ?piecemeal using a cold snare. Resected and ?retrieved. Clip was placed. ?- Diverticulosis in the sigmoid colon. ?- The examination was otherwise normal on direct ?and retroflexion views. Recommendation: ? - Proceed with planned sigmoidectomy today. ?- Await pathology results. ?- Repeat colonoscopy in 1 year for surveillance ?based on pathology results. ? Procedure Code(s): ? --- Professional --- ? 27458, Colonoscopy, flexible; with removal of tumor(s), polyp(s), or ? other lesion(s) by snare technique CPT copyright 2021 [employer]. All rights reserved. The codes documented in this report are preliminary and upon insulation blanket maker review may be revised to meet current compliance requirements. TAMMY MONTOYA MD 10/22/2023 5:35:05 PM I was physically present for the entire viewing portion of the exam. TAMMY MONTOYA MD Number of Addenda: 0 Note Initiated On: 10/20/2023 1:02 PM MRN: ?[id number] Procedure Date: ? 10/20/2023 1:02:04 PM Scope Withdrawal Time: 0 hours 12 minutes 56 seconds Total Procedure Duration: 0 hours 19 minutes 53 seconds Estimated Blood Loss: ? Scope In: 1:50:49 PM Scope Out: 2:10:42 PM RADIOLOGY RESULTS 10/20/2023 1:02 PM CDT Tammy Montoya MD PROCEDURES RADIOLOGY RESULTS * EKG CARDIAC - HIM SCAN (10/06/2023 12:00 AM CDT) Only the most recent of2 resultswithin the time period is included. 10/06/2023 Provider Outside ECG ORDERABLES * (ABNORMAL) CBC with platelets and differential (08/21/2023 7:42 AM ALUMINUM WELDER) Only the most recent of3 resultswithin the time period is included. WBC Count 8.9 4.0 - 11.0 10e3/uL 08/21/2023 7:56 AM [facility] RBC Count 4.30(L) 4.40 - 5.90 [...] Unknown Venipuncture / Unknown 08/21/2023 7:42 AM [facility] 08/21/2023 7:48 AM [facility] Chris Marie MD LAB - BLOOD ORDERAB LES LABORATORY [facility] Acute Care Lab [address] floor, [address] [place] [address], [facility] [phone] * Potassium (08/20/2023 10:02 PM ALUMINUM WELDER) [facility] Potassium 3.6 3.4 - 5.3 mmol/L 08/20/2023 10:20 PM [facility] Blood STRUCTURE OF LEFT UPPER LIMB / Unknown Venipuncture / Unknown 08/20/2023 10:02 PM AL[facility]INUM WELDER 08/20/2023 10:07 PM [facility] Jun Leone MD LAB - BLOOD OR DERABLES LABORATORY [facility] Acute Care Lab [address] floor, [address] [place] [address], [facility] [phone] * (ABNORMAL) UA with Microscopic reflex to Culture (08/19/2023 2:55 AM ALUMINUM WELDER) Color Urine Light Yellow Colorless, Straw, Light Yellow, Yellow 08/19/2023 3:13 AM [facility] Appearance Urine Clear Clear 08/19/19 3:13 AM [facility] Glucose Urine Negative Negative mg/dL 08/19/2023 3:13 AM [facility] Bilirubin Urine Negative Negative 3:13 AM [facility] Ketones Urine 10(A) Negative mg/dL 08/19/2023 3:13 AM [facility] Specific [place] Urine 1.015 1.003 - 1.035 STEPHEN 08/19/2023 3:13 AM [facility] Blood Urine Negative Negative 08/19/2023 3:13 AM [facility] pH Urine 5.5 5.0 - 7.0 08/19/2023 3:13 AM [facility] Protein Albumin Urine Negative Negative mg/dL 08/19/2023 3:13 AM [facility] Urobilinogen Urine Normal Normal, 2.0 mg/dL [...] Non-blood Collection / Unknown 08/19/2023 2:55 AM [facility] WELDER 08/19/2023 3:05 AM [facility]UM WELDER Narrative LABORATORY - 08/19/2023 3:13 AM [facility]ELDER Urine Culture not indicated Jun Leone MD LAB - URINE OR DERABLES LABORATORY [facility] Acute Care Lab [address] 1[address] floor, [address] [place] [address], [place] [phone] * (ABNORMAL) C. difficile Antigen and Toxins A/B by Enzyme Immunoassay (08/18/2023 11:41 PM ALUMINUM WELDER) C. difficile GDH Antigen Positive(A ) Negative STEPHEN 08/19/2023 6:00 AM [facility]UMINUM WELDER [facility] C. difficile Toxin Positive(A ) Negative STEPHEN 08/19/2023 6:00 AM [facility]UMINUM WELDER [facility] Stool RECTAL CONTENTS / Unknown Non-blood Collection / Unknown 08/18/2023 11:41 PM ALUMINUM WELDER 08/18/2023 11:51 PM ALUMINUM WELDER Narrative [facility] - 08/19/2023 6:00 AM ALUMINUM WELDER C. difficile GDH antigen and C. difficile toxin were detected by enzyme immunoassay. Results must be interpreted based on clinical findings and are supportive of C. difficile infection. Luisa Mendoza MD LAB - MICRO GENERAL ORDERABLES [facility] Inf. Diseases Diag. Lab [address], [address] [place] [address], [place] [phone] * (ABNORMAL) C. difficile Toxin B PCR with reflex to C. difficile Antigen and Toxins A/B EIA (08/18/2023 11:41 PM ALUMINUM WELDER) C Difficile Toxin B by PCR Positive( A) Negative 08/19/2023 5:02 AM ALUMINUM WELDER [facility] Comment: Detection of C. [...] Non-blood Collection / Unknown 08/18/2023 11:41 PM ALUMINUM WELDER 08/18/2023 11:51 PM ALUMINUM WELDER Narrative [facility] - 08/19/2023 5:02 AM ALUMINUM WELDER The [employer] Xpert C. difficile Assay, performed on the [place] Systems, is a qualitative in vitro [...] - MICRO GENERAL ORDERABLES [facility] Inf. Diseases Diag. Lab [address], [address] [place] [address], [facility] [phone] * CT Abdomen Pelvis w/o & w Contrast (08/18/2023 8:56 PM ALUMINUM WELDER) Anatomical Region Laterality Modality Abdomen/Pelvis, SUBRAD CT SISSY DY, UMP CT ABDOMEN PELVIS, RAD CT Computed Tomography 08/18/2023 8:56 PM ALUMINUM WELDER Impressions 08/18/2023 9:14 PM ALUMINUM WELDER IMPRESSION: 1. ??Pancolitis, likely infectious or inflammatory. [...] Correlate with urinalysis. Narrative 08/18/2023 9:14 PM ALUMINUM WELDER EXAM: CT ABDOMEN PELVIS W/O and W CONTRAST LOCATION: [facility] DATE: 08/18/2023 INDICATION: Diarrhea. Concern for abdominal [...] ABDOMEN PELVIS W/O and W CONTRAST LOCATION: [facility] DATE: 08/18/2023 INDICATION: Diarrhea. Concern for abdominal [...] Luisa Mendoza MD IMG CT ORDERABLES * Comprehensive metabolic panel (08/18/2023 7:11 PM ALUMINUM WELDER) Sodium 140 135 - 145 mmol/L 08/18/2023 [...] 6.4 - 8.3 g/dL 08/18/2023 8:14 PM [facility] LABORATORY Albumin 3.5 3.5 - 5.2 g/dL 08/18/2023 8:14 PM [facility] LABORATORY Bilirubin Total 0.5 <=1.2 mg/dL 08/18/2023 8:14 PM [facility] LABORATORY Blood BLOOD SPECIMEN / Unknown Venipuncture / Unknown 08/18/2023 7:11 PM ALUMINUM WELDER 08/18/2023 7:42 PM AL[facility]INUM WELDER Luisa Mendoza MD LAB - BLOOD ORDERABL ES LABORATORY [facility] Acute Care Lab [address], [address] [place] [address], [facility] [phone] from Last 3 Months Advance Directives For more information, please contact: [phone] * Full Code (Latest Code Status on File) Date Activated Date Inactivated Comments 10/20/2023 8:39 PM 10/27/2023 5:48 PM All basic and advanced life-sustaining interventions are performed as appropriate Question Answer Comments Code status determined by: Discussion with patie nt/ legal decision maker * Full Code Date Activated Date Inactivated Comments 08/19/2023 2:46 AM 08/21/2023 3:51 PM All basic an d advanced life-sustaining interventions are performed as appropriate Question Answer Comments Code status determined by: Discussion with patie nt/ legal decision maker * Full Code Date Activated Date Inactivated Comments 08/19/2023 1:00 AM 08/19/2023 2:46 AM All basic an d advanced life-sustaining interventions are performed as appropriate Question Answer Comments Code status determined by: Discussion with deidre nt/ legal decision maker * Full Code Date Activated Date Inactivated Comments 07/16/2023 12:19 AM 07/19/2023 3:54 PM All basic and advanced life-sustaining interventions are performed as appropriate Question Answer Comments Code status determined by: Unable to dis cuss and no AD/POLST on file; continue PREVIOUSLY ORDERED code status * Full Code Date Activated Date Inactivated Comments 03/27/2023 7:49 PM 03/30/2023 4:50 PM All basic and advanced life-sustaining interventions are performed as appropriate Question Answer Comments Code status determined by: Discussion with deidre nt/ legal decision maker Care Teams Manager Planning Relationship Specialty Start Date End Date Juan Pablo Buckley MD [facility] [address] [place] [address] PCP - General Family Medicine 10/20/23
--- OUTSIDE RECORDS SUMMARY | 2023-11-12 17:27 | XMS_ITS | Encounter Summary ---
Author Name Unknown Organization [facility] Address [address] [place] [address] Phone Care Team Providers Care Hatchery Supervisor Name Role Phone Unavailable Primary Care Provider Unavailabl e Encounter Details Date Type Department Care Team (Late st Contact Info) Description 10/06/2023 9:00 AM MDT Office Visit [facility] [address] [place], [place] [address] Amarilys Lamb PA [address] [place], [place] [id number] Clostridium difficile colitis (Primary Dx); Abdominal abscess ([facility]) Social History Tobacco Use Types Packs/Day Years Used Date Smoking Tobacco: Every Day Cigarettes Passive Smoke Exposure: Current Smokeless Tobacco: Never Alcohol Use Standard Drinks/Week Comments Not Currently 0 (1 standard drink = 0.6 oz pur e alcohol) Sex and Gender Information Value Date Recorded Sex Assigned at Not on file Gender Identity Not on file Sexual Orientation Not on file documented as of this encounter Progress Notes * MEET Gutierrez - 10/06/2023 9:00 AM CDT Subjective History of Present Illness: Theodore Wu is a 78 y.o. male with a long history of intra-abdominalabscess noted incidentally on lumbar MRI in 02/2023. This was not amenable to drainage due to anatomical location. He was then hospitalized with sigmoid diverticulitis in 03/2023 with associated abscess and again the abscess was not amenable to drainage. He was placed on antibiotics with close follow-up. Unfortunately, he developed c.diff colitis in 06/2023. There was slight interval decrease of the abscess size and evidence of pancolitis on CT. He was treated but returned the end of 07/2023 with recurrent c.diff and again in early 09/2023. He has been on Difficid and is now doing well with no further diarrhea or abdominal pain. He is scheduled for surgery by colorectal surgery on 10/20/23. Review of Systems Constitutional: Positive for appetite change (poor appetite, but has had this for some time.). Respiratory: Negative. Cardiovascular: Negative. Gastrointestinal: Negative. Skin: Negative. All other systems reviewed and are negative. Objective There were no vitals taken for this visit. Unable to do a physical exam as this was a telephone visit. Assessment/Plan Theodore Wu is a 78 year old who was admitted on 08/18/2023. 78 yo with PMH of hypertension, CAD s/p CABG, current smoker c/b COPD Long standing history of intra-abdominal abscess incidentally found on a [facility] MRI. [facility] was noted that this abscess would not amenable to IR drainage due to location. He signed out AGAINST MEDICAL ADVICE at that time. He also has history of chronic low back pain with finding of lumbar stenosis and has been seen by neurosurgery. He was admitted to [facility] from 03/27 - 03/30/23 with acute sigmoid diverticulitis with associatedpelvic abscess. He was seen by colorectal surgery. He was seen by IR and once again did not have access to safely put a percutaneous drain. It was decided that he will be treated with antibiotics with repeat scans and outpatient follow-up with colorectal surgery. Admitted for c diff colitis in 07/15/23. CT of the abdomen pelvis showed interval decrease in the peridiverticular abscess now measuring 2.2 x 2 cm. There was evidence of pancolitis. Prominent loops of nondilated fluid-filled small bowel in the left lower quadrant noted this reflected isolated ileus versus early small bowel obstruction. Now again admitted with diarrhea in 07/2023, tested positive for C diff Repeat CT: Fluid and gas containing pelvic abscess at the level of L5-S1 has decreased in size since 03/28/2023, now measuring up to 2.2 cm. A small bowel loop and the sigmoid colon are tethered by scar tissue to the abscess, without a definite clear communication with the bowel lumen Started on fidaxomicin and completed 10 day course More recently presented again to [place] with recurrent C.diff. Fidaxomicin again prescribed. Doing well. Diarrhea has resolved and having formed BMs with no abdominal pain. Recommendations Complete Fidaxomicin course (has about 5 days left). Further Fiaxomicin is not indicated. Once finished with Fidaxomicin, switch to oral Vancomycin 125 mg BID until surgery to prevent any recurrent c.diff as this has resulted in his surgery being cancelled on a few occasions. Do not recommend any additional systemic antibiotics for the small stable abscesses given severe recurrent C diff Surgery is scheduled for 10/19. Follow up with ID as needed. Patient and plan discussed with Dr. Steinberg. Amarilys Lamb PA-C documented in this encounter Plan of Treatment Upcoming Encounters Date Type Department Care Team (Late st Contact Info) Description 11/17/2023 11:00 AM MDT Office Visit [facility] [address] [facility] [address] [place] [phone] Sybil Steinberg MD [address] [facility] [address] [place] [address] documented as of this encounter Visit Diagnoses Diagnosis Clostridium difficile colitis- Primary Abdominal abscess (CMS-HCC) documented in this encounter
--- OUTSIDE RECORDS SUMMARY | 2023-11-12 17:27 | XMS_ITS | Encounter Summary ---
Author Name Unknown Organization [facility] Address [address], [place] [address] Phone Care Team Providers Care Chemical Equipment Sales Engineer Name Role Phone Unavailable Primary Care Provider Unavailabl e Encounter Details Date Type Department Care Team (Late st Contact Info) Description 09/29/2023 11:00 AM [facility] Office Visit [facility] [address] [place] [address] Sybil Steinberg MD [address] [place] [address] Abdominal abscess ([facility]) (Primary Dx) Social History Tobacco Use Types Packs/Day Years Used Date Smoking Tobacco: Every Day Cigarettes Passive Smoke Exposure: Current Smokeless Tobacco: Never Tobacco Cessation:Ready to Q uit: No; Counseling Given: Yes Alcohol Use Standard Drinks/Week Comments Not Currently 0 (1 standard drink = 0.6 oz pur e alcohol) Sex and Gender Information Value Date Recorded Sex Assigned at Not on file Gender Identity Not on file Sexual Orientation Not on file documented as of this encounter Progress Notes * Sybil Steinberg MD - 09/29/2023 11:00 AM CST Infectious disease FU: Since discharged last time C diff relapsed and is back on difficid Was seen in ER at [facility] where again Difficid was prescribed. He still has 10 more days of medication left. His diarrhea is improved I will check with them again next week. Theodore Wu is a 78 year old who was admitted on 08/18/2023. 78 yo with PMH of hypertension, CAD s/p CABG, current smoker c/b COPD Long standing history of intra-abdominal abscess incidentally found [facility] a lumbar MRI. [facility] and it was noted that this abscess would not amenable to IR drainage due to location. He signed out AGAINST MEDICAL ADVICE at that time. He also has history of chronic low back pain with finding of lumbar stenosis and has been seen by neurosurgery. He was admitted to [facility] from 03/27 - 03/30/23 with acute sigmoid [...] ID in 2 weeks ( [place] ) call soonerif issues. [facility] documented in this encounter Plan of Treatment Upcoming Encounters Date Type Department Care Team (Late st Contact Info) Description 11/17/2023 11:00 AM MDT Office Visit [facility] [address] [facility] [address] [place], [place] [phone] Sybil Steinberg MD [address] [facility] [address] [place] [address] documented as of this encounter Visit Diagnoses Diagnosis Abdominal abscess (CMS-HCC)- Primary documented in this encounter
--- OUTSIDE RECORDS SUMMARY | 2023-11-12 17:27 | XMS_ITS | Clinical Summary ---
Author Name Unknown Organization [facility] Address [address] [place] [address] Phone Care Team Providers Care Retail Property Manager Name Role Phone Unavailable Primary Care Provider Unavailabl e Allergies No known active allergies Medications Medication Sig Dispensed Refills Start Date End Date Status acetaminophen (TYLENOL) 325 MG tablet Take 650 mg by mouth every 6 (six) hours if needed for mild pain Active ALPRAZolam (XANAX) 0.5 MG tablet Take 0.5 mg by mouth 2 (two) times a day if needed for anxiety Active ascorbic acid (VITAMIN C) 500 MG CR capsule Take 500 mg by mouth every other day Active latanoprost (XALATAN) 0.005 % ophthalmic solution Administer 1 drop into both eyes 1 (one) time each day Active lisinopril (PRINIVIL) 20 MG tablet Take 20 mg by mouth 1 (one) time each day Active multivitamin (THERAGRAN) tablet Take 1 tablet by mouth 1 (one) time each day Active nicotine (NICODERM CQ) 21 MG/24HR Place 1 patch on the skin 1 (one) time each day at the same time Active nitroglycerin (NITROSTAT) 0.[address] 0.4 mg under the tongue every 5 (five) minutes if needed for chest pain Active simvastatin (ZOCOR) 20 MG tablet Take 20 mg by mouth every night Active traMADol (ULTRAM) 50 MG tablet Take 50-100 mg by mouth every 6 (six) hours if needed for moderate pain Active aspirin 325 MG tablet Take 325 mg by mouth 1 (one) time each day Active cholecalciferol, vitamin D3, 5,000 Units tablet tablet Take 5,000 Units by mouth 1 (one) time each day Active ibuprofen (ADVIL) 200 MG tablet Take 600-800 mg by mouth every 6 (six) hours if needed for mild pain Active Lactobacillus-In ulin (CULTURELLE DIGESTIVE DAILY PO) Take 1 capsule by mouth 1 (one) time each day Active vancomycin (VANCOCIN) 125 MG capsule Take 1 capsule (125 mg total) by mouth in the morning and 1 capsule (125 mg total) at noon and 1 capsule (125 mg total) in the evening and 1 capsule (125 mg total) before bedtime. Do all this for 14 days. 56 capsule 11/11/2023 4 Active vancomycin (VANCOCIN) 125 MG capsule Take 1 capsule (125 mg total) by mouth in the morning and 1 capsule (125 mg total) in the evening. Do all this for 9 days. 18 capsule 10/11/2023 4 vancomycin (VANCOCIN) 125 MG capsule Take 125 mg by mouth in the morning and 125 mg at noon and 125 mg in the evening and 125 mg before bedtime. 4 Discontinued (Reorder) Active Problems Problem Noted Date Diagnosed Date Abdominal abscess 03/25/2023 Encounters Date Type Department Care Team Description 11/11/[address] [place] [address] [facility] RN 10/21/[address] [place] [address] [facility] RN 10/06/2023 9:00 AM MDT Office Visit [address] [place] [address] Amarilys Lamb PA Clostridium difficile colitis (Primary Dx); Abdominal abscess ([facility]) 10/06/[address] [place] [address] [facility], [facility] 09/29/2023 11:00 AM MST Office Visit [facility] [address] [place] [address] Sybil Steinberg MD Abdominal abscess ([facility]) (Primary Dx) 09/17/[address] [place] [phone] Alysia Estrada RN Diarrhea from Last 3 Months Social History Tobacco [...] on file Sexual Orientation Not on file Plan of Treatment Upcoming Encounters Date Type Department Care Team (Late st Contact Info) Description 11/17/2023 11:00 AM MDT Office Visit [facility] [address] [facility] [address] [place], [place] [phone] Sybil Steinberg MD [address] [facility] [address] [place], [place] [phone] Health Maintenance Due Date Last Done Comments Pneumococcal PPSV23/PCV13 65 + Years / High and Highest Risk (1 of 4 - PCV) 1951 Influenza Vaccine (Season Ended) 2024
--- OUTSIDE RECORDS SUMMARY | 2023-11-12 17:27 | XMS_ITS | Continuity of Care Document ---
Author Name Unknown Organization [facility] Address [address] [place] [address] Phone Care Team Providers Care Director Airport Name Role Phone Magalie Palumbo MD Unavailable [...] C, [address], [place], [id number], [place] tel:[phone] [facility] No Information 3 Linwood Amir. [facility], [address], [place], [place], [id number] , [place]. tel:[phone] Office/Outpat ient Visit,Est, Mod [facility], [address], [place], [id number], [place] tel:[phone] [facility] Spinal stenosis, lumbar region with neurogenic claudication 3 Mehbod Amir. [facility], [address], [place], [id number] , [place]. tel:[phone] Referring Provider: Juan Pablo Amaya, [facility] [address], [place], [address]. tel:[phone] Office/Outpat ient Visit,[facility], [facility], [address], [place], [id number], [place] tel:[phone] [facility] Low back painSpinal stenosis, lumbar region with neurogenic claudication 1 Kenzie Leary. [facility], [address], [address], [facility] [place], [id number] , [place]. tel:[phone] Referring Provider: Juan Pablo Amaya, [facility] [address], [place], [address]. tel:[phone] Family History Family Member Type Diagnosis Age At Onset No Information Payers Payer name Insurance type Covered republican ID Authoriza tion(s) [employer] Medicare Gold Choice Ramesh CONTRERAS [id number] Social History Type Description Quantity Date [...]
--- OUTSIDE RECORDS SUMMARY | 2023-11-12 17:27 | XMS_ITS | Encounter Summary ---
Author Name Unknown Organization [facility] Address [address] [place] [address] Phone Care Team Providers Care Direct Marketing Manager Name Role Phone Unavailable Primary Care Provider Unavailabl e Encounter Details Date Type Department Care Team (Late st Contact Info) Description 11/11/2023 Telephone [employer] [address] [place] [address] [facility] RN Social History Tobacco Use Types Packs/Day Years [...] on file documented as of this encounter Miscellaneous Notes * Telephone Encounter - [facility] RN - 11/11/2023 3:52 PM CDT Theodore and his called yesterday to report increased diarrhea, going constantly. Previously treated for C diff with dificid and vanco Did have a stool sample done and C Diff toxin came back positive. Per Dr Martin can use vanco 125 mg QID for 2 weeks and to follow up with Dr Steinberg Sent Rx to [facility], patient has a follow up appointment already 11/17/23. Reviewed home cares and signs and symptoms of when to be seen. documented in this encounter Plan of Treatment Upcoming Encounters Date Type Department Care Team (Late st Contact Info) Description 11/17/2023 11:00 AM MDT Office Visit [employer] [address] [place] [phone] Sybil Steinberg MD [address] [facility] [address] [place] [address] documented as of this encounter Visit Diagnoses Not on filedocumented in this encounter
--- OUTSIDE RECORDS SUMMARY | 2023-11-12 17:27 | XMS_ITS | Encounter Summary ---
Author Name Unknown Organization [facility] Address [address] [place] [phone] Phone Care Team Providers Care Military Analyst Name Role Phone Unavailable Primary Care Provider Unavailabl e Encounter Details Date Type Department Care Team (Late st Contact Info) Description 10/21/2023 Telephone [address] [employer] [place] [address] Mercy Bo RN Social History Tobacco Use [...] Telephone Encounter - Mercy Bo RN - 10/21/2023 1:03 PM CDT Received a voicemail from Galen DSOUZA with [facility] Patient is currently in patient at [facility] having had a sigmoidectomy. They are calling on treatment for C diff following his surgery. Dr Steinberg is out of the clinic currently. Dr Martin stated that no treatment of C diff is needed. Per office visit note, Patient has been treated until his surgery date to prevent relapse. Spoke to staff at [facility] and they are going to page this message out to Galen DSOUZA. documented in this encounter Plan of Treatment Upcoming Encounters Date Type Department Care Team (Late st Contact Info) Description 11/17/2023 11:00 AM MDT Office Visit [facility] [address] [employer] [address] [place] [address] Sybil Steinberg MD [address] [facility] [address] [place] [address] documented as of this encounter Visit Diagnoses Not on filedocumented in this encounter
--- OUTSIDE RECORDS SUMMARY | 2023-11-12 17:27 | XMS_ITS | Encounter Summary ---
Author Name Unknown Organization [facility] Address [address] [place] [phone] Phone Care Team Providers Care Utilities Manager Name Role Phone Unavailable Primary Care Provider Unavailabl e Encounter Details Date Type Department Care Team (Late st Contact Info) Description 10/06/2023 Telephone [employer] [address] [place] [address] Mercy Bo RN Social History Tobacco Use [...] Telephone Encounter - Mercy Bo RN - 10/06/2023 1:33 PM CDT After visit orders: Call to patient to explain that Dr Steinberg stated Vancomycin 125 bid until day of surgery. That is the treatment of choice. Sent 9 days of the vancomycin to [facility] in [place]. Patient stated understanding. documented in this encounter Plan of Treatment Upcoming Encounters Date Type Department Care Team (Late st Contact Info) Description 11/17/2023 11:00 AM MDT Office Visit [facility] [address] [place] [address] Sybil Steinberg MD [address] [facility] [address] [facility] [address] [place] [address] documented as of this encounter Visit Diagnoses Not on filedocumented in this encounter
--- OUTSIDE RECORDS SUMMARY | 2023-11-12 17:27 | XMS_ITS | Encounter Summary ---
Author Name Unknown Organization [facility] Address [address] [place] [phone] Phone Care Team Providers Care Loom Fixer Name Role Phone Unavailable Primary Care Provider Unavailabl e Reason for Visit * Reason Onset Date Comments Diarrhea 09/17/2023 Encounter Details Date Type Department Care Team (Late st Contact Info) Description 09/17/2023 Telephone [employer] [employer] [address] [place] [address] Alysia Estrada RN Diarrhea Social History Tobacco Use Types Packs/Day Years Used Date Smoking Tobacco: Never Assessed Sex and Gender Information Value Date Recorded Sex Assigned at Not on file Gender Identity Not on file Sexual Orientation Not on file documented as of this encounter Miscellaneous Notes * Telephone Encounter - Alysia Estrada RN - 09/17/2023 4:34 PM CST Mrs. Wu called to report 2 days of diarrhea that she is confident is c-diff. It is liquid and constant, He can barely get off the toilet before he has to go again. Call reviewed with Dr. Steinberg on the phone. She feels Mr. Wu needs UC/ER evaluation to ensure he is not dehydrated, that electrolytes and RF are stable. She is not going to treat the cdiff at this time without evaluation. Message conveyed back to Mrs. Wu. She will discuss with Theodore. documented in this encounter Plan of Treatment Upcoming Encounters Date Type Department Care Team (Late st Contact Info) Description 11/17/2023 11:00 AM MDT Office Visit [employer] [address] [place] [address] Sybil Steinberg MD [address] [facility] [address] [place] [address] documented as of this encounter Visit Diagnoses Not on filedocumented in this encounter
--- OUTSIDE RECORDS SUMMARY | 2023-11-12 17:28 | XMS_ITS | Encounter Summary ---
Author Name Unknown Organization [facility] Address [facility] [place] [address] Care Team Providers Care Horse Trader Name Role Phone Juan Pablo Buckley MD Primary Care Provider [phone] 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] Procedures MI COLONOSCOPY W/WO BRUSH/WASH MI LAP,SURG,COLECTOMY, PARTIAL, W/ANAST MI LAP,SURG,COLECTOMY,W/REMVL TERM ILEUM MI LAP,SURG,COLECTOMY,W/END COLOST & CLOSUR MI LAP,SURG,COLECTOMY,W/ANAST MI LAP, SURG, COLECTOMY, W/ANAST, W/COLOSTOMY MI LAP,SURG,COLECTOMY,TOTAL,W/O PROCTECTOMY MI LAP,SURG,COLECTOMY,TOTAL,W/PRO CTECTOMY MI LAP,SURG,COLECT,TOT,W/PROCTECT ,W/ILEOST MI PART REMOVAL COLON W ANASTOMOSIS MI PART REMOVAL COLON W COLOSTOMY MI PART REMOVAL COLON W END COLOSTOMY MI PART REMOVAL COLON W OSTOMY/MUCOFIST MI PART REMOVAL COLON W COLOPROCTOSTOMY MI PART REMOVAL COLON W COLOPROC,COLOST MI PART REMOVAL COLON,ABD/TRANSANAL TRAVIS MI REMOVAL COLON/ILEOSTOMY ZZC REMOVAL COLON/ILEOSTOMY,CONTINENT MI REMOVAL COLON/PROCTECTOMY/ILEOSTOMY ZZC REMOVAL COLON/PROCTEC/ILEOSTOMY CONT ZZC REMOVAL COLON/PROCTEC/ ILEOANAL ANAST MI REMOVAL COLON/PROCTEC/ILEOANAL ANAST POUCH MI REMVL COLON/TERM ILEUM/ILEOCOLOSTOMY Intraoperative colonoscopy robotic sigmoid colectomy possible open, possible stoma Periop Services [address] [place] [place] [address] Referral ID Status Reason Start Date Expiration Date Visits Re quested Visits Authorized [id number] 1 1 Encounter Details Date Type Department Care Team (Late st Contact Info) Description 10/20/2023 12:50 PM CDT - 10/20/2023 6:30 PM CDT Surgery [facility] [address] [place] [phone] Tammy Montoya MD [facility] RECT[facility] SURGERY [address] [id number] Intraoperative colonoscopy Surgery Details Date/Time Status Location OR Service Patient Class Case Class Case Type Trauma Case? 10/20/23 12:50 PM Posted OR OR General Surgery Admit Elective Panel 1 Procedure LRB Anes Op Region Wound Class Comments Intraoperative colonoscopy N/A General Rectum II- Clean Contaminated robotic sigmoid colectomy converted to open N/A General Abdomen III-Contaminated Surgeon Surgeon Role Service Panel Kalyn Villagomez PA-C Assisting [employer] Operations Manager Authori zation 1 Tammy Montoya MD Primary General 1 Milli Jacobs MD Fellow - Assisting [place]-Rectal 1 Special Needs 4hr req documented in this encounter Social History Tobacco Use Types Packs/Day Years [...] Sign Reading Time Taken Comments Blood Pressure 160/95 10/20/2023 6:25 PM CDT Pulse 85 10/20/2023 6:25 PM CDT Temperature 36.2 ??C (97.1 ??F) 10/20/2023 6:05 PM CD T Respiratory Rate 15 10/20/2023 6:25 PM CDT Oxygen Saturation 100% 10/20/2023 6:25 PM CDT Inhaled Oxygen Concentration - - Weight 69.7 kg (153 lb 9.6 oz) 10/20/2023 10:43 AM CDT Height 170.2 cm (5' 7.01) 10/20/2023 10:43 AM C DT Body Mass Index 24.05 10/20/2023 10:43 AM CDT documented in this encounter Discharge Summaries * Kalyn Villagomez PA-C - 10/27/2023 1:28 PM CDT [facility] Discharge Summary Christi Wu Age: [age] year old Date of : 1945 Date of Admission: 10/20/2023 Date of Discharge:: 10/27/2023 Admitting Physician: Tammy Montoya MD Discharge Physician: Tammy Montoya MD PCP: Juan Pablo Buckley Disposition: Patient discharged from [facility] to home in stable condition. Primary Diagnosis: Colonic diverticular abscess Discharge Medications: Current Discharge Medication List START taking these medications Details oxyCODONE (ROXICODONE) 5 MG tablet Take 1 tablet (5 mg) by mouth every 4 hours as needed for moderate pain Qty: 15 tablet, Refills: 0 Associated Diagnoses: S/P colectomy CONTINUE these medications which have NOT CHANGED Details acetaminophen (TYLENOL) 325 MG tablet Take 2 tablets (650 mg) by mouth every 6 hours as needed for mild pain Maximum of 4,000 mg of acetaminophen in any 24 hour period. Associated Diagnoses: Intra-abdominal abscess (H) ALPRAZolam (XANAX) 0.5 MG tablet Take 0.5 mg by mouth 2 times daily as needed for anxiety lactobacillus rhamnosus, GG, (CULTURELL) capsule Take 1 capsule by mouth daily latanoprost (XALATAN) 0.005 % ophthalmic solution Place 1 drop into both eyes every 3 days lisinopril (ZESTRIL) 20 MG tablet Take 20 mg by mouth at bedtime multivitamin w/minerals (MULTI-VITAMIN) tablet Take 1 tablet by mouth daily niacin 50 MG tablet Take 50 mg by mouth daily (with breakfast) nicotine (COMMIT) [address] 2 mg inside cheek 3 times daily nitroGLYcerin (NITROSTAT) 0.[address] 0.4 mg under the tongue every 5 minutes asneeded for chest pain simvastatin (ZOCOR) 20 MG tablet Take 20 mg by mouth At Bedtime STOP taking these medications vancomycin (VANCOCIN) 125 MG capsule Comments: Reason for Stopping: Follow Up, Special Instructions: Discharge diet: Low residue Discharge activity: No heavy lifting, pushing, pulling for 6 week(s) Discharge follow-up: Follow up with Dr. Montoya in 3-4 weeks Wound care: May get incision wet in shower but do not soak or scrub Procedures: Procedure(s): Robotic sigmoid colectomy converted to open No other procedures performed during this admission Consultations: None Brief Hospital Summary: Patient is a 78 year old man who underwent Robotic sigmoid colectomy converted to open on 10/20/[address] Montoya. There were no immediate complications during this procedure. Please refer to the full operative summary for details. The patient's hospital course was remarkable for a post op ileus which resolved conservatively. Pain was controlled on oral pain regimen. He was tolerating a low fiber diet. Bowel function had returned prior to discharge. He recovered as anticipated and experienced no post-operative complications. Attestation: I have reviewed today's vital signs, notes, medications, labs and imaging. Kalyn Villagomez PA-C [facility] ADDENDUM: Length of stay: 7 days Indicate Y or N for the following: UTI No C diff No PNA No SSI No DVT No PE No CVA No [place] No Enterocutaneous fistula No Peripheral nerve injury No Abscess (not adjacent to anastomosis) No Leak No Treated with: Antibiotics N/A Drain N/A Reoperation N/A within 30 days No Reintubation No Reoperation No Procedure N/A Associated attestation - Tammy Montoya MD - 10/28/2023 12:24 PM CDT Physician Attestation I have reviewed and discussed with the advanced practice provider their discharge plan for Christi Wu. I did not participate in a shared visit by interviewing or examining the patient and this should be billed as an advanced practice provider only discharge. Tammy Montoya MD Date of Service (when I saw the patient): I did not personally see this patient on the day of discharge. documented in this encounter Discharge Instructions * Discharge Instructions* Mili Proctor LGSW - 10/22/2023 11:08 AM CDT Your home care referral was sent to [facility] If you haven't heard from them within the next 24-48 hours, Please call them at [phone] documented in this encounter Medications at Time of Discharge Medication Sig Dispensed Refills Start Date End Date acetaminophen (TYLENOL) 325 MG tabletIndications:Int ra-abdominal abscess (H) Take 2 tablets (650 mg) by mouth every 6 hours as needed for mild pain Maximum of 4,000 mg of acetaminophen in any 24 hour period. 03/30/2023 ALPRAZolam (XANAX) 0.5 MG tablet Take 0.5 mg by mouth 2 times daily as needed for anxiety lactobacillus rhamnosus, GG, (CULTURELL) capsule Take 1 capsule by mouth daily latanoprost (XALATAN) 0.005 % ophthalmic solution Place 1 drop into both eyes every 3 days lisinopril (ZESTRIL) 20 MG tablet Take 20 mg by mouth at bedtime multivitamin w/minerals (MULTI-VITAMIN) tablet Take 1 tablet by mouth daily niacin 50 MG tablet Take 50 mg by mouth daily (with breakfast) nicotine (COMMIT) [address] 2 mg inside cheek 3 times daily nitroGLYcerin (NITROSTAT) 0.[address] 0.4 mg under the tongue every 5 minutes as needed for chest pain 08/05/2022 oxyCODONE (ROXICODONE) 5 MG tabletIndications:S/P colectomy Take 1 tablet (5 mg) by mouth every 4 hours as needed for moderate pain 15 tablet 10/27/2023 simvastatin (ZOCOR) 20 MG tablet Take 20 mg by mouth At Bedtime documented as of this encounter Progress Notes * Sonia Small LSW - 10/27/2023 1:58 PM CDT Care Management Discharge Note Discharge Date: 10/27/2023 Discharge Disposition: Home Discharge Services: Home Care Discharge DME: None Discharge Transportation: family or friend will provide Private pay costs discussed: Not applicable Does the patient's insurance plan have a 3 day qualifying hospital stay waiver? No PAS Confirmation Code: N/A Patient/family educated on Medicare website which has current facility and service quality ratings:N/A Education Provided on the Discharge Plan: yes Persons Notified of Discharge Plans: [facility] Patient/Family in Agreement with the Plan: yes Handoff Referral Completed: No Additional Information: The pt will discharge home today with resumption of [facility] PT services. Sw updated [facility] on the pt's discharge today and faxed them the pt's discharge orders P:[phone] F: [phone]. Sw will continue to be available as needed until discharge. Sonia Small, TATIANNA, [facility] Inpatient Care Coordination [facility] [phone] * Lexie Bang PT - 10/27/2023 1:52 PM CDT PT: Noted in chart pt with discharge orders. Stopped in pt's room to check in if he had any additional mobility concerns to address prior to discharge and pt denied concern. Has been mobilizing well with previous PT sessions and with nrs staff. Physical Therapy Discharge Summary Reason for therapy discharge: Discharged to home. Progress towards therapy goal(s). See goals on Care Plan in [facility] electronic health record for goal details. Goals partially met. Barriers to achieving goals: discharge from facility. Therapy recommendation(s): Continued therapy is recommended. Rationale/Recommendations: Patient plans to discharge home with assisting. HHPT to promote strength, balance, and endurance.. * Galen Moffett PA-C - 10/27/2023 10:09 AM CDT COLON & RECTAL SURGERY PROGRESS NOTE October 27, 2023 Post-op Day # 7 SUBJECTIVE: Doing well, pain controlled with tylenol and oxy. Tolerating LFD from an abdominal standpoint but mostly doing a full liquid diet due to throat pain. Denies N/V. Ambulated x2. +flatus and3 stools without blood. No new labs. AVSS. OBJECTIVE: Temp: [98.1 ??F (36.7 ??C)-99.4 ??F (37.4 ??C)] 98.1 ??F (36.7 ??C) Pulse: [62-69] 62 Resp: [16-20] 16 BP: (145-180)/(63-79) 170/79 SpO2: [90 %-91 %] 90 % No intake or output data in the 24 hours ending 10/27/23 1010 GENERAL: Awake, alert, no acute distress, sitting in chair HEAD: Nomocephalic atraumatic SCLERA: anicteric EXTREMITIES: warm and well perfused ABDOMEN: Soft with some firmness above the midline incision, appropriately tender, non-distended, no rebound or guarding, no peritoneal signs INCISION: C/d/i LABS: Lab Results Component Value Date WBC 9.8 10/25/2023 Lab Results Component Value Date HGB 12.0 10/25/2023 Lab Results Component Value Date HCT 35.9 10/25/2023 Lab Results Component Value Date PLT 345 10/26/2023 Last Basic Metabolic Panel: Lab Results Component Value Date NA 140 10/25/2023 Lab Results Component Value Date POTASSIUM 3.5 10/25/2023 Lab Results Component Value Date CHLORIDE 101 10/25/2023 Lab Results Component Value Date DELMA 8.9 10/25/2023 Lab Results Component Value Date CO2 29 10/25/2023 Lab Results Component Value Date BUN 15.4 10/25/2023 Lab Results Component Value Date CR 0.78 10/25/2023 Lab Results Component Value Date GLC 92 10/25/2023 GLC 149 10/22/2023 ASSESSMENT/PLAN: Estevan is a 78 year old man who is POD # 7 s/p robotic assisted converted to open sigmoid colectomy. - LFD - Abdominal binder for comfort - Pain management as needed, minimize narcotics - Encourage ambulation - SQH for ppx, will not need at discharge - Likely discharge later today if continues to do well For questions/paging, please contact the CRS office at [phone]. Galen Moffett PA-C [facility] * Glaen Moffett PA-C - 10/26/2023 9:58 AM CDT COLON & RECTAL SURGERY PROGRESS NOTE October 26, 2023 Post-op Day # 6 SUBJECTIVE: Feeling a bit better than yesterday. Pain controlled. Had a loose BM yesterday and passing a lot of flatus. Denies blood. Tolerating fulls. No N/V. AVSS. OBJECTIVE: Temp: [97.9 ??F (36.6 ??C)-98.9 ??F (37.2 ??C)] 98 ??F (36.7 ??C) Pulse: [69-85] 69 Resp: [15-20] 15 BP: (145-179)/(61-77) 169/70 SpO2: [90 %-94 %] 92 % Intake/Output Summary (Last 24 hours) at 10/26/2023 0929 Last data filed at 10/26/2023 0511 Gross per 24 hour Intake 360 ml Output -- Net 360 ml GENERAL: Awake, alert, no acute distress, sitting in chair HEAD: Nomocephalic atraumatic SCLERA: anicteric EXTREMITIES: warm and well perfused ABDOMEN: Soft, appropriately tender, mildly-distended, no rebound or guarding, no peritoneal signs INCISION: C/d/i LABS: Lab Results Component Value Date WBC 9.8 10/25/2023 Lab Results Component Value Date HGB 12.0 10/25/2023 Lab Results Component Value Date HCT 35.9 10/25/2023 Lab Results Component Value Date PLT 345 10/26/2023 Last Basic Metabolic Panel: Lab Results Component Value Date NA 140 10/25/2023 Lab Results Component Value Date POTASSIUM 3.5 10/25/2023 Lab Results Component Value Date CHLORIDE 101 10/25/2023 Lab Results Component Value Date DELMA 8.9 10/25/2023 Lab Results Component Value Date CO2 29 10/25/2023 Lab Results Component Value Date BUN 15.4 10/25/2023 Lab Results Component Value Date CR 0.78 10/25/2023 Lab Results Component Value Date GLC 92 10/25/2023 GLC 149 10/22/2023 ASSESSMENT/PLAN: Estevan is a 78 year old man who is POD#6 s/p robotic assisted converted to open sigmoid colectomy. - Advance to low fiber diet - Abdominal binder for comfort - Pain management as needed, minimize narcotics - Encourage ambulation - SQH for ppx Disposition: Expected discharge in 1-2 days. Barriers to discharge: Tolerating low fiber diet, pain controlled with oral meds, return of bowel function. For questions/paging, please contact the CRS office at [phone]. Galen Moffett PA-C [facility] Associated attestation - Laura Rojo MD - 10/26/2023 1:08 PM CDT Physician Attestation I saw and evaluated Christi Wu as part of a shared AUTOMATIC FOLDER SEAMER/PA visit. I personally reviewed the vital signs, medications, and labs. I personally provided a substantive portion of care for this patient and I approve the care plan aswritten by the TRAVIS. I was involved with Medical Decision Making including: Please see A&P for additional details of medical decision making. Christi Wu is a 78 year old man POD # 6 s/p robotic converted to open sigmoid colectomy for management of diverticular disease. Low fiber diet. Multimodal pain control Encourage ambulation Possible discharge later on today versus tomorrow pending toleration of diet and comfort with discharging to home. Laura Rojo MD Date of Service (when I saw the patient): 10/26/23 * Adán Mcneal MD - 10/25/2023 10:21 AM CDT Images from the original note were not included. COLON & RECTAL SURGERY PROGRESS NOTE October 25, 2023 Post-op Day # 5 SUBJECTIVE: Doing okay. Tolerating diet without N/V but mainly doing clear liquids. Complains of sore throat with swallowing. Abdominal pain about the same as yesterday, controlled with tylenol and 5mg oxy. Ambulating in room. Passing flatus, no BM yet. WBC 9.8 from 13.8 two days ago. AVSS on 2 L O2. OBJECTIVE: Temp: [98.1 ??F (36.7 ??C)-98.5 ??F (36.9 ??C)] 98.1 ??F (36.7 ??C) Pulse: [68-87] 68 Resp: [16] 16 BP: (171-176)/(74-82) 171/74 SpO2: [94 %-96 %] 95 % Intake/Output Summary (Last 24 hours) at 10/25/2023 1022 Last data filed at 10/25/2023 0500 Gross per 24 hour Intake -- Output 400 ml Net -400 ml GENERAL: Awake, alert, no acute distress, lying in bed HEAD: Nomocephalic atraumatic SCLERA: anicteric EXTREMITIES: warm and well perfused ABDOMEN: Soft, appropriately tender, mildly distended, no rebound or guarding, no peritoneal signs INCISION: C/d/i LABS: Lab Results Component Value Date WBC 9.8 10/25/2023 Lab Results Component Value Date HGB 12.0 10/25/2023 Lab Results Component Value Date HCT 35.9 10/25/2023 Lab Results Component Value Date PLT 337 10/25/2023 Last Basic Metabolic Panel: Lab Results Component Value Date NA 140 10/25/2023 Lab Results Component Value Date POTASSIUM 3.5 10/25/2023 Lab Results Component Value Date CHLORIDE 101 10/25/2023 Lab Results Component Value Date DELMA 8.9 10/25/2023 Lab Results Component Value Date CO2 29 10/25/2023 Lab Results Component Value Date BUN 15.4 10/25/2023 Lab Results Component Value Date CR 0.78 10/25/2023 Lab Results Component Value Date GLC 92 10/25/2023 GLC 149 10/22/2023 ASSESSMENT/PLAN: Estevan is a 78 year old man who is POD#5 s/p robotic assisted converted to open sigmoid colectomy. - Full liquids - Abdominal binder for comfort - Pain management as needed, minimize narcotics - Encourage ambulation - SQH for ppx For questions/paging, please contact the CRS office at [phone]. Galen Moffett PA-C [facility] CRS Staff. Seen and examined independently. Agree with above. I performed a history and physical examination of the patient and discussed their management with the physician certified medical technician assistant. I reviewed the physician assistants note and agree with the documented findings and plan of care. MD JEANE Villegas Colorectal Surgeon [facility] [address] , [address] [place] [address] T: [phone] F: [phone] Pager: [phone] [email or web address] * Adán Mcneal MD - 10/24/2023 8:41 AM CDT Images from the original note were not included. [facility] Rect[facility] Progress Note Assessment and Plan: 78 yo M s/p POD #4 lap converted to open sigmoid colectomy Seems to be having some bowel function Ok for full liquid diet Stop fluids Check labs in am Adán Mcneal MD FACS FASCALESHIA Colorectal Surgeon [facility] [address] , [address] [place] [address] T: [phone] F: [phone] Pager: [phone] [email or web address] Interval History: Xray demonstrating some ileus yesterday. NG placed without much output. Patient removed NG on his own. Complains of less pain. Reports he is passing gas. Physical Exam: Vitals were reviewed Patient Vitals for the past 24 hrs: BP Temp Temp src Pulse Resp SpO2 10/24/23 0747 (!) 149/69 98.8 ??F (37.1 ??C) Oral 89 16 95 % 10/24/23 0502 (!) 161/68 -- -- 93 -- 93 % 10/24/23 0500 -- -- -- -- -- (!) 85 % 10/24/23 0452 -- -- -- -- -- 97 % 10/24/23 0420 -- -- -- -- -- 95 % 10/24/23 0414 -- -- -- -- -- 96 % 10/23/23 2303 (!) 178/74 98.6 ??F (37 ??C) Oral 85 16 94 % 10/23/23 1612 (!) 166/69 98.6 ??F (37 ??C) Oral 93 16 97 % 10/23/23 1239 (!) 140/77 -- -- -- -- -- Intake/Output Summary (Last 24 hours) at 10/24/2023 0841 Last data filed at 10/24/2023 0127 Gross per 24 hour Intake 910 ml Output -- Net 910 ml Head - Nomocephalic atraumatic Sclera anicteric Extremities warm and well perfused Lungs - breathing non labored, Abdomen - softer, but still distended but less so. No peritoneal signs Rectal exam - deferred Skin - no rash Psych - affect appropriate Neuro - no focal deficits Data: All laboratory and imaging data in the past 24 hours reviewed CBC Lab Results Component Value Date WBC 13.8 (H) 10/23/2023 WBC 12.8 (H) 10/21/2023 WBC 8.9 08/21/2023 HGB 13.1 (L) 10/23/2023 HGB 13.4 10/21/2023 HGB 13.0 (L) 08/21/2023 HCT 39.5 (L) 10/23/2023 HCT 41.4 10/21/2023 HCT 38.4 (L) 08/21/2023 PLT 320 10/23/2023 PLT 320 10/23/2023 PLT 302 10/21/2023 BMP Recent Labs Lab Test 10/23/23 0950 10/22/23 0613 10/21/23 0635 10/21/23 0622 NA 136 -- -- 137 POTASSIUM 4.2 -- -- 5.3 CHLORIDE 97* -- -- 102 CO2 31* -- -- 27 ANIONGAP 8 -- -- 8 GLC 138* 149* < > 137* BUN 12.4 -- -- 14.9 CR 0.84 -- -- 0.96 DELMA 10.0 -- -- 9.5 < > = values in this interval not displayed. Liver Function Studies - Recent Labs Lab Test 08/18/23 1911 PROTTOTAL 6.7 ALBUMIN 3.5 BILITOTAL 0.5 ALKPHOS 86 AST 23 ALT 22 New imaging data reviewed: no Total time spent in counseling, direct patient care, coordination of care, and review of data 10 min * Adán Mcneal MD - 10/23/2023 8:57 AM CDT Images from the original note were not included. [facility] Rectal Surgery Progress Note Assessment and Plan: POD #3 Seems to have an ileus NPO Check labs and xray May need NG tube Adán Mcneal MD FACS FASCRS Colorectal Surgeon [facility] [address], [address] [place] [address] T: [phone] F: [phone] Pager: [phone] [email or web address] Interval History: Hypertensive overnight. Reports bloating and burping. Passed gas x 1 Physical Exam: Vitals were reviewed Patient Vitals for the past 24 hrs: BP Temp Temp src Pulse Resp SpO2 10/23/23 0803 -- -- -- -- -- 93 % 10/23/23 0748 (!) 170/77 97.7 ??F (36.5 ??C) Oral 100 16 95 % 10/23/23 0635 (!) 182/72 -- -- -- -- -- 10/23/23 0507 (!) 194/94 -- -- -- -- -- 10/23/23 0503 (!) 202/99 98.2 ??F (36.8 ??C) Oral 85 20 96 % 10/23/23 0038 (!) 178/89 -- -- -- -- 96 % 10/22/23 2326 (!) 184/81 98.7 ??F (37.1 ??C) Oral 85 20 95 % 10/22/23 2230 (!) 166/78 98.5 ??F (36.9 ??C) Oral 90 18 95 % 10/22/23 1554 (!) 162/83 98.3 ??F (36.8 ??C) Oral 103 20 90 % Intake/Output Summary (Last 24 hours) at 10/23/2023 0857 Last data filed at 10/23/2023 0532 Gross per 24 hour Intake 1428 ml Output 120 ml Net 1308 ml Head - Nomocephalic atraumatic Sclera anicteric Extremities warm and well perfused Lungs - breathing non labored, Abdomen - soft, distended, tender, wounds ok Rectal exam - deferred Skin - no rash Psych - affect appropriate Neuro - no focal deficits Data: All laboratory and imaging data in the past 24 hours reviewed CBC Lab Results Component Value Date WBC 12.8 (H) 10/21/2023 WBC 8.9 08/21/2023 WBC 9.5 08/20/2023 HGB 13.4 10/21/2023 HGB 13.0 (L) 08/21/2023 HGB 12.4 (L) 08/20/2023 HCT 41.4 10/21/2023 HCT 38.4 (L) 08/21/2023 HCT 36.5 (L) 08/20/2023 PLT 302 10/21/2023 PLT 315 10/20/2023 PLT 136 (L) 08/21/2023 [facility] Recent Labs Lab Test 10/22/23 0613 10/21/23 0635 10/21/23 0622 10/20/23 1034 08/21/23 0742 NA -- -- 137 -- 136 POTASSIUM -- -- 5.3 -- 3.3* CHLORIDE -- -- 102 -- 100 CO2 -- -- 27 -- 25 ANIONGAP -- -- 8 -- 11 GLC 149* 133* 137* < > 98 BUN -- -- 14.9 -- 6.9* CR -- -- 0.96 -- 0.70 DELMA -- -- 9.5 -- 8.8 < > = values in this interval not displayed. Liver Function Studies - Recent Labs Lab Test 08/18/231910 PROTTOTAL 6.7 ALBUMIN 3.5 BILITOTAL 0.5 ALKPHOS 86 AST 23 ALT 22 New imaging data reviewed: no Total time spent in counseling, direct patient care, coordination of care, and review of data 10 min * Kalyn Villagomez PA-C - 10/22/2023 8:49 AM CDT COLON & RECTAL SURGERY PROGRESS NOTE October 22, 2023 Post-op Day # 2 SUBJECTIVE: Had some hiccups, nausea, and one small emesis overnight. Feeling better this morning. No gas or stool yet. AVSS. OBJECTIVE: Temp: [97.6 ??F (36.4 ??C)-97.9 ??F (36.6 ??C)] 97.6 ??F (36.4 ??C) Pulse: [82-102] 102 Resp: [16-22] 20 BP: (134-164)/(62-75) 134/75 SpO2: [90 %-95 %] 90 % Intake/Output Summary (Last 24 hours) at 10/22/2023 0849 Last data filed at 10/22/2023 0750 Gross per 24 hour Intake -- Output 1070 ml Net -1070 ml GENERAL: Awake, alert, no acute distress, lying in bed HEAD: Nomocephalic atraumatic SCLERA: anicteric EXTREMITIES: warm and well perfused ABDOMEN: Soft, appropriately tender, distended, no rebound or guarding, no peritoneal signs INCISION: C/d/i LABS: Lab Results Component Value Date WBC 12.8 10/21/2023 Lab Results Component Value Date HGB 13.4 10/21/2023 Lab Results Component Value Date HCT 41.4 10/21/2023 Lab Results Component Value Date PLT 302 10/21/2023 Last Basic Metabolic Panel: Lab Results Component Value Date NA 137 10/21/2023 Lab Results Component Value Date POTASSIUM 5.3 10/21/2023 Lab Results Component Value Date CHLORIDE 102 10/21/2023 Lab Results Component Value Date DELMA 9.5 10/21/2023 Lab Results Component Value Date CO2 27 10/21/2023 Lab Results Component Value Date BUN 14.9 10/21/2023 Lab Results Component Value Date CR 0.96 10/21/2023 Lab Results Component Value Date GLC 149 10/22/2023 ASSESSMENT/PLAN: Estevan is a 78 year old man who is POD#2 s/p robotic assisted converted to open sigmoid colectomy. - Continue full liquids. AROBF. - Abdominal binder for comfort - Spoke with ID yesterday, no need for further Vancomycin coverage for C. Diff. Will discontinue Vancomycin today. - Pain management as needed, minimize narcotics - Encourage ambulation - [facility] for ppx Disposition: Expected discharge in 1-2 days. Barriers to discharge: Tolerating low fiber diet, pain controlled with oral meds, return of bowel function. Clinically Significant Risk Factors # Financial/Environmental Concerns: For questions/paging, please contact the CRS office at [phone]. Kalyn Villagomez PA-C [facility] * Satish Zaldivar, RN - 10/22/2023 2:32 AM CDT Messaged provider: Pt requested that I ask the provider if there is anything he could have to help with hiccups. Pt stated it is keeping him from sleeping. * Aurea Ang PT - 10/21/2023 2:40 PM CDT 10/21/23 1400 Appointment Info Signing Clinician's Name / Credentials (PT) Aurea Ang, PT, DPT Rehab Comments (PT) Abdominal Living Environment People in Home spouse Current Living Arrangements house Home Accessibility no concerns Transportation Anticipated family or friend will provide Living Environment Comments Patient lives in a townhouse with his . He reports all needs are met on the main floor. Self-Care Usual Activity Tolerance good Current Activity Tolerance moderate Equipment Currently Used at Home cane, straight;walker, rolling;grab bar, tub/shower Fall history within last six months yes Number of times patient has fallen within last six months 2 Activity/Exercise/Self-Care Comment Patient reports baseline independence with I/ADLs. Prior to surgery, he was walking with a 4WW for exercise. Patient also uses a cane. General Information Onset of Illness/Injury or Date of Surgery 10/20/23 Referring Physician Tammy Montoya MD Patient/Family Therapy Goals Statement (PT) Patient hopes to return home with at discharge. Pertinent History of Current Problem (include personal factors and/or comorbidities that impact thePOC) 78 year old man who is s/p robotic assisted converted to open sigmoid colectomy. Existing Precautions/Restrictions fall;abdominal Cognition Affect/Mental Status (Cognition) WFL Orientation Status (Cognition) oriented x 3 Follows Commands (Cognition) WFL;delayed response/completion;increased processing time needed Pain Assessment Patient Currently in Pain Yes, see Vital Sign flowsheet (Reporting both abdominal pain and pain at velazquez catheter site. Also with chronic low back pain.) Integumentary/Edema Integumentary/Edema Comments Age-related skin changes, abdominal incision Posture Posture Forward head position;Protracted shoulders Range of Motion (ROM) Range of Motion ROM deficits secondary to surgical procedure ROM Comment Abdominal precautions Strength (Manual Muscle Testing) Strength (Manual Muscle Testing) Able to perform R SLR;Able to perform L SLR;Deficits observed during functional mobility Bed Mobility Comment, (Bed Mobility) SBA supine > sit transfer with UE support on L bed rail, utilizing logroll. Transfers Comment, (Transfers) SBA sit <> stand. Gait/Stairs (Locomotion) Comment, (Gait/Stairs) Progressing from CGA to SBA with FWW x 15 ft. Slow gait speed and forward flexed posture, tends to position FWW too far from body. Balance Balance Comments Impaired dynamic balance, uses cane or walker at baseline. Sensory Examination Sensory Perception patient reports no sensory changes Clinical Impression Criteria for Skilled Therapeutic Intervention Yes, treatment indicated PT Diagnosis (PT) Impaired functional mobility Influenced by the following impairments Abdominal incision, pain, weakness, decreased activity tolerance, impaired balance Functional limitations due to impairments Impaired independence with bed mobility, transfers, and ambulation Clinical Presentation (PT Evaluation Complexity) evolving Clinical Presentation Rationale Clinical judgement, PMH, social support Clinical Decision Making (Complexity) moderate complexity Planned Therapy Interventions (PT) balance training;bed mobility training;cryotherapy;gait training;home exercise program;neuromuscular re- education;patient/family education;postural re-education;strengthening;transfer training;progressive activity/exercise Risk & Benefits of therapy have been explained evaluation/treatment results reviewed;care plan/treatment goals reviewed;risks/benefits reviewed;participants voiced agreement with care plan;participants included;patient;spouse/significant other PT Total Evaluation Time PT Eval, Moderate Complexity Minutes (47938) 10 Physical Therapy Goals PT Frequency Daily PT Predicted Duration/Target Date for Goal Attainment 10/27/23 PT Goals Bed Mobility;Transfers;Gait PT: Bed Mobility Supine to/from sit;Rolling;Within precautions;Independent PT: Transfers Modified independent;Bed to/from chair;Sit to/from stand;Assistive device;Within precautions PT: Gait Supervision/stand-by assist;Rolling walker;150 feet Interventions Interventions Quick Adds Therapeutic Activity;Gait Training Therapeutic Activity Therapeutic Activities: dynamic activities to improve functional performance Minutes (04973) 8 Symptoms Noted During/After Treatment Increased pain;Fatigue Treatment Detail/Skilled Intervention Patient greeted supine in bed, present. Patient reporting increased abdominal pain as well as significant pain at velazquez catheter. Abdominal binder in place throughout session, used for comfort. RN aware of pain, may pull catheter this afternoon pending ambulation. Patient able to perform ankle pumps and SLRs to promote circulation while in bed. Cued for supine > sit via logroll to facilitate bed mobility. Patient needing cues for logroll sequencing.Patient able to complete supine > sit with SBA, maintains sitting balance with SBA. Increased abdominal pain with coughing, education on using pillow to brace abdomen for comfort. Patient performing x3 sit <> stands with SBA, reaching for IV pole so provided FWW for stability. Patient ending session seated in chair, cues for pursed lip breathing to facilitate aerobic recovery. RN presentwith pain meds and planning to remove urinary catheter at end of session. Gait Training Gait Training Minutes (62933) 8 Symptoms Noted During/After Treatment (Gait Training) fatigue;increased pain Treatment Detail/Skilled Intervention Patient ambulates ~120' with FWW, progressing to close SBA. Patient ambulates with slow gait speed and decreased step length. Cues for upright posture and keeping walker closer to body. Also instructed for pursed lip breathing to facilitate aerobic recovery. Patient does brace forearms on walker when coughing, painful. No overt loss of balance. Distance in Feet 15' eval + 120' treatment PT Discharge Planning PT Plan Progress gait with walker (bring 4WW), repeated sit <> stands, bed mob with abd precautions PT Discharge Recommendation (DC Rec) home with assist;home with home care physical therapy PT Rationale for DC Rec Patient presents below his IND/mod I prior level of function, currently needing Ax1 with FWW for mobility. Limited by pain at abdomen and velazquez catheter. Patient plans to discharge home with assisting. HHPT to promote strength, balance, and endurance. PT Brief overview of current status Ax1 FWW Total Session Time Timed Code Treatment Minutes 16 Total Session Time (sum of timed and untimed services) 26 * Kalyn Villagomez PA-C - 10/21/2023 10:15 AM CDT [facility] PROGRESS NOTE October 21, 2023 Post-op Day # 1 SUBJECTIVE: Patient doing well. Pain controlled but worse with coughing. Tolerating clear liquids. No n/v. No gas or stool yet. Main concern is that the velazquez is bothering him. AVSS. WBC 12.8. OBJECTIVE: Temp: [97.1 ??F (36.2 ??C)-98.4 ??F (36.9 ??C)] 97.9 ??F (36.6 ??C) Pulse: [67-93] 72 Resp: [0-18] 16 BP: (132-207)/(57-105) 153/57 SpO2: [86 %-100 %] 98 % Intake/Output Summary (Last 24 hours) at 10/21/2023 1015 Last data filed at 10/21/2023 0600 Gross per 24 hour Intake 2400 ml Output 1715 ml Net 685 ml GENERAL: Awake, alert, no acute distress, lying in bed HEAD: Nomocephalic atraumatic SCLERA: anicteric EXTREMITIES: warm and well perfused ABDOMEN: Soft, appropriately tender, non-distended, no rebound or guarding, no peritoneal signs. JPdrain with 190 ml serosang output. INCISION: C/d/i LABS: Lab Results Component Value Date WBC 12.8 10/21/2023 Lab Results Component Value Date HGB 13.4 10/21/2023 Lab Results Component Value Date HCT 41.4 10/21/2023 Lab Results Component Value Date PLT 302 10/21/2023 Last Basic Metabolic Panel: Lab Results Component Value Date NA 137 10/21/2023 Lab Results Component Value Date POTASSIUM 5.3 10/21/2023 Lab Results Component Value Date CHLORIDE 102 10/21/2023 Lab Results Component Value Date DELMA 9.5 10/21/2023 Lab Results Component Value Date CO2 27 10/21/2023 Lab Results Component Value Date BUN 14.9 10/21/2023 Lab Results Component Value Date CR 0.96 10/21/2023 Lab Results Component Value Date GLC 133 10/21/2023 GLC 137 10/21/2023 ASSESSMENT/PLAN: Estevan is a 78 year old man who is POD#1 s/p robotic assisted converted to open sigmoid colectomy. - Full liquids - Keep velazquez this morning. May remove this later in the afternoon - Abdominal binder for comfort - Continue Vancomycin - Pain management as needed, minimize narcotics - Encourage ambulation - [facility] for ppx For questions/paging, please contact the CRS office at [phone]. Kalyn Villagomez PA-C [facility] Associated attestation - Laura Rojo MD - 10/21/2023 6:45 PM CDT Physician Attestation I saw and evaluated Christi Wu as part of a shared [employer]/PA visit. I personally reviewed the vital signs, medications, and labs. I personally provided a substantive portion of care for this patient and I approve the care plan aswritten by the TRAVIS. I was involved with Medical Decision Making including: Please see A&P for additional details of medical decision making. Christi Wu is a 78 year old man POD # 1 s/p robotic converted to open sigmoid colectomy for management of chronic diverticulitis. Full liquid diet as tolerated. Await return of bowel function. Velazquez removed and voiding. Continue antibiotics for C. difficile. Multimodal pain control Encourage ambulation SCDs and [facility] for DVT prophylaxis. Laura Rojo MD Date of Service (when I saw the patient): 10/21/23 * Saul Ayo Jonah, OTR - 10/21/2023 9:40 AM CDT 10/21/23 0835 Appointment Info Signing Clinician's Name / Credentials (OT) Ayo Hughes OTR/L Living Environment People in Home spouse Current Living Arrangements house ([facility]) Home Accessibility no concerns Self-Care Usual Activity Tolerance moderate Current Activity Tolerance fair Equipment Currently Used at Home cane, straight;walker, rolling;grab bar, tub/shower Fall history within last six months yes Number of times patient has fallen within last six months 2 Activity/Exercise/Self-Care Comment Independent with ADL and IADL. Uses 4WW or cane for mobility. General Information Onset of Illness/Injury or Date of Surgery 10/20/23 Referring Physician Tammy Montoya MD Patient/Family Therapy Goal Statement (OT) To get better and go home Additional Occupational Profile Info/Pertinent History of Current Problem 78 YO male who is POD#1 robotic sigmoid colectomy converted to open Existing Precautions/Restrictions fall;abdominal Cognitive Status Examination Orientation Status orientation to person, place and time Follows Commands follows one-step commands;over 90% accuracy Cognitive Status Comments Forgetful Visual Perception Visual Impairment/Limitations WFL;corrective lenses for reading Pain Assessment Patient Currently in Pain Yes, see Vital Sign flowsheet Range of Motion Comprehensive Comment, General Range of Motion Impaired ROM at trunk 2/2 abdominal and back pain Strength Comprehensive (MMT) Comment, General Manual Muscle Testing (MMT) Assessment Generalized weakness Bed Mobility Bed Mobility supine-sit;sit-supine Supine-Sit [place] (Bed Mobility) minimum assist (75% patient effort) Sit-Supine [place] (Bed Mobility) minimum assist (75% patient effort) Transfers Transfers sit-stand transfer;toilet transfer Sit-Stand Transfer Sit-Stand [place] (Transfers) supervision Toilet Transfer [place] Level (Toilet Transfer) supervision Balance Balance Comments Benefits from FWW, history of falls. Activities of Daily Living BADL Assessment/Intervention lower body dressing;grooming Lower Body Dressing Assessment/Training [place] Level (Lower Body Dressing) contact guard assist Grooming Assessment/Training [place] Level (Grooming) supervision Clinical Impression Criteria for Skilled Therapeutic Interventions Met (OT) Yes, treatment indicated OT Diagnosis Decline in function OT Problem List-Impairments impacting ADL problems related to;activity tolerance impaired;balance;cognition;mobility;range of motion (ROM);strength;pain Assessment of Occupational Performance 5 or more Performance Deficits Identified Performance Deficits Dressing, bathing, toileting, functional mobility, home mgmt, and other taxing IADL Planned Therapy Interventions (OT) ADL retraining;IADL retraining;transfer training;progressive activity/exercise;home program guidelines;risk factor education Clinical Decision Making Complexity (OT) problem focused assessment/low complexity Risk & Benefits of therapy have been explained evaluation/treatment results reviewed;care plan/treatment goals reviewed;risks/benefits reviewed;current/potential barriers reviewed;participants voiced agreement with care plan;participants included;patient OT Total Evaluation Time OT Eval, Low Complexity Minutes (60705) 10 OT Goals Therapy Frequency (OT) Daily OT Predicted Duration/Target Date for Goal Attainment 10/28/23 OT Goals Hygiene/Grooming;Upper Body Dressing;Lower Body Dressing;Lower Body Bathing;Toilet Transfer/Toileting;Home Management;Cognition OT: Hygiene/Grooming modified independent OT: Upper Body Dressing Modified independent OT: Lower Body Dressing Modified independent OT: Lower Body Bathing Modified independent OT: Toilet Transfer/Toileting Modified independent OT: Home Management Modified independent;with light demand household tasks OT: Cognitive Patient/caregiver will verbalize understanding of cognitive assessment results/recommendations as needed for safe discharge planning Interventions Interventions Quick Adds Therapeutic Activity Self-Care/Home Management Self-Care/Home Mgmt/ADL, Compensatory, Meal Prep Minutes (78499) 8 Symptoms Noted During/After Treatment (Meal Preparation/Planning Training) increased pain;fatigue Treatment Detail/Skilled Intervention Pt standing at sink for standing g/h tasks to progress activity tolerance and ADL independence. Instructed on body and FWW position for safe stable posture at sink as pt tending to hunch/lean anteriorly. Tolerates 8 minutes of standing for functional tasks at sink, washing face, hands, dentures, etc. Close SBA. 1 VC to prevent excessive bending at sink. Therapeutic Activities Therapeutic Activity Minutes (05846) 29 Symptoms noted during/after treatment increased pain;fatigue Treatment Detail/Skilled Intervention The patient is supine at encounter and agreeable to OT with encouragment. Educating pt on purpose of OT and importance of mobilization post surgrery. Provided edu on general abdominal precautions to avoid straining surgical area. Edu on log roll technique for bed mobility. Pt completes supine to sit w/ min A and VCs for technique. Back to supine with mod A atLEs and VCs for log roll tech. Completing supine>sit again and pt completes min A w/ minimal VCs. STS w/ FWW and close SBA, VCs for hand placement. Extended time required to manage multiple lines.Pt ambulates ~30 feet in room with close SBA, FWW, assist for lines, and verbal cueing for walker managment. VCs for FWW proximity and upright posture w/ FWW. Transfers supine w/ min A and min cues for log roll. Positioned pt for comfort and oriented to call light, alarm on. 3 VCs for abdominal precautions throughout transfers OT Discharge Planning OT Plan Dressing with retrieval, shower transfer, toilet transfer and toileting, AE recommendationsfor home. Monitor cognition and assess if appropriate. OT Discharge Recommendation (DC Rec) home with assist OT Rationale for DC Rec The patient is presenting below his baseline of independent. Currenlty limited by pain, decreased activity tolerance, and post surgical precautions. The patient demonstrates ability to complete ADL and functional ability with minimal - supervsion assist. Anticipate that withmedical management and continued IP therapy, pt will progress to safe discharge home with assist asneeded from spouse and friends. OT Brief overview of current status SB-min A w/ FWW Total Session Time Timed Code Treatment Minutes 37 Total Session Time (sum of timed and untimed services) 47 * Dana Hull RN - 10/20/2023 8:25 PM CDT MDA updated with pt elevated BP. Labetolol given x2 with some effect. Back up to 170/80. No furtherinterventions ordered. documented in this encounter Consult Notes * Mili Proctor LGSW - 10/22/2023 10:49 AM CDTAssociated Order(s): CARE MANAGEMENT / SOCIAL WORK IP CONSULT Care Management Initial Consult General Information Assessment completed with: , Primary Care Provider verified and updated as needed: Readmission within the last 30 days: Advance Care Planning: Communication Assessment Patient's communication style: spoken language (Ukrainian or Bilingual) Hearing Difficulty or Deaf: no Wear Glasses or Blind: yes Cognitive Cognitive/Neuro/Behavioral: WDL Level of Consciousness: alert Arousal Level: opens eyes spontaneously Orientation: oriented x 4 Living Environment: People in home: spouse Cynthia Current living Arrangements: Able to return to prior arrangements: Family/Social Support: Care provided by: Provides care for: Description of Support System: Current Resources: Patient receiving home care services: Community Resources: Equipment currently used at home: cane, straight, walker, rolling, grab bar, tub/shower Supplies currently used at home: Employment/Financial: Employment Status: Financial Concerns: Does the patient's insurance plan have a 3 day qualifying hospital stay waiver? Yes Which insurance plan 3 day waiver is available? Alternative insurance waiver Will the waiver be used for post-acute placement? No Lifestyle & Psychosocial Needs: Social Determinants of Health Food Insecurity: Not on file Depression: Not on file Housing Stability: Not on file Tobacco Use: High Risk (10/20/2023) Patient History Smoking Tobacco Use: Every Day Smokeless Tobacco Use: Never Passive Exposure: Not on file Financial Resource Strain: Not on file Alcohol Use: Not on file Transportation Needs: Not on file Physical Activity: Not on file Interpersonal Safety: Not on file Stress: Not on file Social Connections: Not on file Functional Status: Prior to admission patient needed assistance: Mental Health Status: Chemical Dependency Status: Values/Beliefs: Spiritual, Cultural Beliefs, Mormon Practices, Values that affect care: Additional Information: Chart reviewed, PT recommends homecare PT. SW met with pt at the bedside who reports that he lives in a home with his spouse and would be homebound at discharge. Pt is interested in the recommendation for homecare PT and is agreeable to a referral. Pt confirms his PCP as listed in the chart. Pt reports that family will transport at discharge. Referral sent to [facility] hub for home PT. Addendum Pt accepted by [facility] [employer] [facility] for home PT. AVS updated. Mili Proctor/TATIANNA Coley, JAIMEE Inpatient Care Coordination Emergency Room Hyperion Analyst/Float [phone] Mili Proctor LGSW documented in this encounter Miscellaneous Notes * Plan of Care - Luisa Montes OT - 10/27/2023 3:38 PM CDT Occupational Therapy Discharge Summary Reason for therapy discharge: Discharged to home with home therapy. Progress towards therapy goal(s). See goals on Care Plan in [facility] electronic [facility] record for goal details. Patient was making progress towards mod I with ADLs and functional transfers at time of discharge. Therapy recommendation(s): Per treating OT At this time, pt is slightly below baseline, however continues to progress.Continues to be limited by post surgical precautions, cognition, and general weakness. Recommend assist from with IADLs due to cog concerns and reminders for abdominal precautions. Anticipate that with medical management and continued IP therapy, pt will progress to safe discharge home with assist as n eeded from spouse and friends. This patient was not seen by writing OT, information for discharge summary taken from treating OT's notes. * Plan of Care - Aria Harrison RN - 10/27/2023 11:16 AM CDT Goal Outcome Evaluation: Plan of Care Reviewed With: patient Overall Patient Progress: improvingOverall Patient Progress: improving The patient remains alert and oriented x4 and call light appropriate. Up to the bathroom SBA with walker. Has minor amount of urgency and frequency with going to the bathroom. No pain reported. VSS on RA. Discharged from the unit at 1537. Problem: Adult Inpatient Plan of Care Goal: Plan of Care Review Description: The Plan of Care Review/Shift note should be completed every shift. The Outcome Evaluation is a brief statement about your assessment that the patient is improving, declining, or no change. This information will be displayed automatically on your shift note. Outcome: Progressing Flowsheets (Taken 10/27/2023 1116) Plan of Care Reviewed With: patient Overall Patient Progress: improving Goal: Patient-Specific Goal (Individualized) Description: You can add care plan individualizations to a care plan. Examples of Individualizationmight be: Parent requests to be called daily at 9am for status, I have a hard time hearing out of my right ear, or Do not touch me to wake me up as it startles me. Outcome: Progressing Goal: Absence of Hospital-Acquired Illness or Injury Outcome: Progressing Intervention: Identify and Manage Fall Risk Recent Flowsheet Documentation Taken 10/27/2023740 by Aria Harrison RN Safety Promotion/Fall Prevention: activity supervised Intervention: Prevent Skin Injury Recent Flowsheet Documentation Taken 10/27/2023740 by Aria Harrison RN Body Position: position changed independently Intervention: Prevent and Manage VTE (Venous Thromboembolism) Risk Recent Flowsheet Documentation Taken 10/27/2023740 by Aria Harrison RN VTE Prevention/Management: SCDs (sequential compression devices) off Intervention: Prevent Infection Recent Flowsheet Documentation Taken 10/27/2023740 by Aria Harrison RN Infection Prevention: rest/sleep promoted Goal: Optimal Comfort and Wellbeing Outcome: Progressing Goal: Readiness for Transition of Care Outcome: Progressing Problem: Surgery Nonspecified Goal: Absence of Bleeding Outcome: Progressing Goal: Effective Bowel Elimination Outcome: Progressing Goal: Fluid and Electrolyte Balance Outcome: Progressing Goal: Blood Glucose Level Within Targeted Range Outcome: Progressing Goal: Absence of Infection Signs and Symptoms Outcome: Progressing Goal: Anesthesia/Sedation Recovery Outcome: Progressing Intervention: Optimize Anesthesia Recovery Recent Flowsheet Documentation Taken 10/27/2023740 by Aria Harrison RN Safety Promotion/Fall Prevention: activity supervised Administration (IS): self-administered Level Incentive Spirometer (mL): 1500 Number of Repetitions (IS): 10 Patient Tolerance (IS): good Goal: Optimal Pain Control and Function Outcome: Progressing Goal: Nausea and Vomiting Relief Outcome: Progressing Goal: Effective Urinary Elimination Outcome: Progressing Goal: Effective Oxygenation and Ventilation Outcome: Progressing Intervention: Optimize Oxygenation and Ventilation Recent Flowsheet Documentation Taken 10/27/2023740 by Aria Harrison RN Head of Bed (HOB) Positioning: HOB at 20-30 degrees * Plan of Care - Satish Zaldivar RN - 10/27/2023 5:52 AM CDT Goal Outcome Evaluation: For vital signs and complete assessments, please see documentation flowsheets. [id number] Pertinent assessments: Pt A&Ox4. SBA with walker & gait belt in room. On RA Afebrile. Elevated BP, other VSS. Denies pain, nausea, & SOB. PIV saline locked. Had one BM during shift. Major Shift Events: none Treatment Plan: Pain control. Monitor bowel function. Advance diet as tolerated. Bedside Nurse: Satish Zaldivar RN Problem: Adult Inpatient Plan of Care Goal: Plan of Care Review Description: The Plan of Care Review/Shift note should be completed every shift. The Outcome Evaluation is a brief statement about your assessment that the patient is improving, declining, or no change. This information will be displayed automatically on your shift note. Outcome: Progressing Flowsheets (Taken 10/27/2023 3444) Outcome Evaluation: Pt is passing gas & had one BM during shift ambulating SBA with walker & gait belt Plan of Care Reviewed With: patient Overall Patient Progress: improving Goal: Patient-Specific Goal (Individualized) Description: You can add care plan individualizations to a care plan. Examples of Individualizationmight be: Parent requests to be called daily at 9am for status, I have a hard time hearing out of my right ear, or Do not touch me to wake me up as it startles me. Outcome: Progressing Goal: Absence of Hospital-Acquired Illness or Injury Outcome: Progressing Intervention: Identify and Manage Fall Risk Recent Flowsheet Documentation Taken 10/27/202333 by Satish Zaldivar RN Safety Promotion/Fall Prevention: activity supervised mobility aid in reach lighting adjusted nonskid shoes/slippers when out of bed room door open room near nurse's station safety round/check completed assistive device/personal items within reach clutter free environment maintained Intervention: Prevent Skin Injury Recent Flowsheet Documentation Taken 10/27/202333 by Satish Zaldivar RN Body Position: position changed independently Intervention: Prevent and Manage VTE (Venous Thromboembolism) Risk Recent Flowsheet Documentation Taken 10/27/202333 by Satish Zaldivar RN VTE Prevention/Management: SCDs (sequential compression devices) off Intervention: Prevent Infection Recent Flowsheet Documentation Taken 10/27/202333 by Satish Zaldivar RN Infection Prevention: rest/sleep promoted single patient room provided hand hygiene promoted Goal: Optimal Comfort and Wellbeing Outcome: Progressing Goal: Readiness for Transition of Care Outcome: Progressing Problem: Surgery Nonspecified Goal: Absence of Bleeding Outcome: Progressing Goal: Effective Bowel Elimination Outcome: Progressing Goal: Fluid and Electrolyte Balance Outcome: Progressing Goal: Blood Glucose Level Within Targeted Range Outcome: Progressing Goal: Absence of Infection Signs and Symptoms Outcome: Progressing Goal: Anesthesia/Sedation Recovery Outcome: Progressing Intervention: Optimize Anesthesia Recovery Recent Flowsheet Documentation Taken 10/27/202333 by Satish Zaldivar, RN Safety Promotion/Fall Prevention: activity supervised mobility aid in reach lighting adjusted nonskid shoes/slippers when out of bed room door open room near nurse's station safety round/check completed assistive device/personal items within reach clutter free environment maintained Goal: Optimal Pain Control and Function Outcome: Progressing Goal: Nausea and Vomiting Relief Outcome: Progressing Goal: Effective Urinary Elimination Outcome: Progressing Goal: Effective Oxygenation and Ventilation Outcome: Progressing Intervention: Optimize Oxygenation and Ventilation Recent Flowsheet Documentation Taken 10/27/202333 by Satish Zaldivar, RN Head of Bed (HOB) Positioning: HOB at 20-30 degrees Plan of Care Reviewed With: patient Overall Patient Progress: improvingOverall Patient Progress: improving Outcome Evaluation: Pt is passing gas & had one BM during shift ambulating SBA with walker & gait belt * Plan of Care - Wes Bui RN - 10/26/2023 10:41 PM CDT Assessments: A&Ox4, VSS, on room air. Up with SBA walker. Oxycodone 5mg given x1 fro abdominal pain. Patientcomplained of some discomfort after eating low fiber. Lap sites and midline incisions CDI. Pt passed lots of gas and had 1 large and regular bm during shift. Treatment Plan: Pain control, encourage ambulation, monitor bowel function Bedside Nurse: Wes uBi RN Goal Outcome Evaluation: Plan of Care Reviewed With: patient Problem: Adult Inpatient Plan of Care Goal: Plan of Care Review Description: The Plan of Care Review/Shift note should be completed every shift. The Outcome Evaluation is a brief statement about your assessment that the patient is improving, declining, or no change. This information will be displayed automatically on your shift note. Outcome: Progressing Flowsheets (Taken 10/26/2023 0812) Outcome Evaluation: had large bm, passing lots of gas, ambulating well Plan of Care Reviewed With: patient Goal: Patient-Specific Goal (Individualized) Description: You can add care plan individualizations to a care plan. Examples of Individualizationmight be: Parent requests to be called daily at 9am for status, I have a hard time hearing out of my right ear, or Do not touch me to wake me up as it startles me. Outcome: Progressing Goal: Absence of Hospital-Acquired Illness or Injury Outcome: Progressing Goal: Optimal Comfort and Wellbeing Outcome: Progressing Goal: Readiness for Transition of Care Outcome: Progressing Problem: Surgery Nonspecified Goal: Absence of Bleeding Outcome: Progressing Goal: Effective Bowel Elimination Outcome: Progressing Goal: Fluid and Electrolyte Balance Outcome: Progressing Goal: Blood Glucose Level Within Targeted Range Outcome: Progressing Goal: Absence of Infection Signs and Symptoms Outcome: Progressing Goal: Anesthesia/Sedation Recovery Outcome: Progressing Goal: Optimal Pain Control and Function Outcome: Progressing Goal: Nausea and Vomiting Relief Outcome: Progressing Goal: Effective Urinary Elimination Outcome: Progressing Goal: Effective Oxygenation and Ventilation Outcome: Progressing * Plan of Care - Laura Martínez RN - 10/26/2023 2:58 PM CDT End of Shift Summary For vital signs and complete assessments, please see documentation flowsheets. Pertinent assessments: Pt A&Ox4, up with SBA walker and gait belt. Ambulated well with therapy in [place]. C/o throat pain, oxycodone and hurricaine spray given with relief. No BM today, passing gas, tolerating low fiber diet. Lap sites and midline CDI. Major Shift Events: none Treatment Plan: Pain control, tolerate diet, discharge home Problem: Adult Inpatient Plan of Care Goal: Plan of Care Review Description: The Plan of Care Review/Shift note should be completed every shift. The Outcome Evaluation is a brief statement about your assessment that the patient is improving, declining, or no change. This information will be displayed automatically on your shift note. Outcome: Progressing Flowsheets (Taken 10/26/2023 3068) Outcome Evaluation: ambulating in [place], pain controlled with PO pain medication Plan of Care Reviewed With: patient Overall Patient Progress: improving Goal: Patient-Specific Goal (Individualized) Description: You can add care plan individualizations to a care plan. Examples of Individualizationmight be: Parent requests to be called daily at 9am for status, I have a hard time hearing out of my right ear, or Do not touch me to wake me up as it startles me. Outcome: Progressing Goal: Absence of Hospital-Acquired Illness or Injury Outcome: Progressing Goal: Optimal Comfort and Wellbeing Outcome: Progressing Goal: Readiness for Transition of Care Outcome: Progressing Problem: Surgery Nonspecified Goal: Absence of Bleeding Outcome: Progressing Goal: Effective Bowel Elimination Outcome: Progressing Goal: Fluid and Electrolyte Balance Outcome: Progressing Goal: Blood Glucose Level Within Targeted Range Outcome: Progressing Goal: Absence of Infection Signs and Symptoms Outcome: Progressing Goal: Anesthesia/Sedation Recovery Outcome: Progressing Goal: Optimal Pain Control and Function Outcome: Progressing Goal: Nausea and Vomiting Relief Outcome: Progressing Goal: Effective Urinary Elimination Outcome: Progressing Goal: Effective Oxygenation and Ventilation Outcome: Progressing Goal Outcome Evaluation: Plan of Care Reviewed With: patient Overall Patient Progress: improvingOverall Patient Progress: improving Outcome Evaluation: ambulating in [place], pain controlled with PO pain medication * Plan of Care - Luanne Cedillo RN - 10/26/2023 6:22 AM CDT Assessments: VSS on room air, maintaining sats low 90s. Bowel sounds present, passing flatus. Voiding adequate amounts. Moderate abdominal pain, but declined interventions. Lap sites and midline incisions CDI. Pt's mood was more elevated than the previous night. Treatment Plan: Pain control. Encourage activity/ambulation. Monitor bowel function. CRS following * Plan of Care - Wes Bui RN - 10/25/2023 11:04 PM CDT Assessments: A/O x4. VSS. Weaned O2 to room air, maintaining sats on low 90s. Bowel sounds active. Ambulates with Ax1 with walker. No PRN analgesics given during shift. Lap sites and midline incisions CDI. Scheduled Lidocaine patch applied. Tolerated full liquid, patient just had some half of orange sherbet. Treatment Plan: Pain control. Encourage activity/ambulation. Monitor bowel function. CRS following Bedside Nurse: Wes Bui RN Problem: Adult Inpatient Plan of Care Goal: Plan of Care Review Description: The Plan of Care Review/Shift note should be completed every shift. The Outcome Evaluation is a brief statement about your assessment that the patient is improving, declining, or no change. This information will be displayed automatically on your shift note. 10/25/20232303 by Wes Bui RN Outcome: Progressing Flowsheets (Taken 10/25/20232303) Plan of Care Reviewed With: patient 10/25/20232302 by Wes Bui RN Outcome: Progressing Flowsheets (Taken 10/25/20232302) Outcome Evaluation: passing gas, cooperative with ambulation, no n/v, no PRN analgesics given Goal: Patient-Specific Goal (Individualized) Description: You can add care plan individualizations to a care plan. Examples of Individualizationmight be: Parent requests to be called daily at 9am for status, I have a hard time hearing out of my right ear, or Do not touch me to wake me up as it startles me. 10/25/20232303 by Wes Bui RN Outcome: Progressing 10/25/20232302 by Wes Bui RN Outcome: Progressing Goal: Absence of Hospital-Acquired Illness or Injury 10/25/20232303 by Wes Bui RN Outcome: Progressing 10/25/20232302 by Wes Bui RN Outcome: Progressing Intervention: Identify and Manage Fall Risk Recent Flowsheet Documentation Taken 10/25/20230 by Wes Bui RN Safety Promotion/Fall Prevention: safety round/check completed treat reversible contributory factors room near nurse's station nonskid shoes/slippers when out of bed patient and family education increase visualization of patient assistive device/personal items within reach Intervention: Prevent Skin Injury Recent Flowsheet Documentation Taken 10/25/2023 1700 by Wes Bui RN Body Position: weight shifting Intervention: Prevent and Manage VTE (Venous Thromboembolism) Risk Recent Flowsheet Documentation Taken 10/25/2023 1700 by Wes Bui RN VTE Prevention/Management: SCDs (sequential compression devices) off Intervention: Prevent Infection Recent Flowsheet Documentation Taken 10/25/2023 1700 by Wes Bui RN Infection Prevention: rest/sleep promoted Goal: Optimal Comfort and Wellbeing 10/25/2023 230 by Wes Bui RN Outcome: Progressing 10/25/2023 230 by Wes Bui RN Outcome: Progressing Goal: Readiness for Transition of Care 10/25/20232303 by Wes Bui RN Outcome: Progressing 10/25/20232302 by Wes Bui RN Outcome: Progressing Problem: Surgery Nonspecified Goal: Absence of Bleeding 10/25/20232303 by Wes Bui RN Outcome: Progressing 10/25/20232302 by Wes Bui RN Outcome: Progressing Goal: Effective Bowel Elimination 10/25/20232303 by Wes Bui RN Outcome: Progressing 10/25/20232302 by Wes Bui RN Outcome: Progressing Goal: Fluid and Electrolyte Balance 10/25/20232303 by Wes Bui RN Outcome: Progressing 10/25/20232302 by Wes Bui RN Outcome: Progressing Goal: Blood Glucose Level Within Targeted Range 10/25/20232303 by Wes Bui RN Outcome: Progressing 10/25/2023 230 by Wes Bui RN Outcome: Progressing Goal: Absence of Infection Signs and Symptoms 10/25/20232303 by Wes Bui, MEDHAT Outcome: Progressing 10/25/20232302 by Wes Bui RN Outcome: Progressing Goal: Anesthesia/Sedation Recovery 10/25/20232303 by Wes Bui, MEDHAT Outcome: Progressing 10/25/2023 230 by Wes Bui RN Outcome: Progressing Intervention: Optimize Anesthesia Recovery Recent Flowsheet Documentation Taken 10/25/2023 1700 by Wes Bui RN Safety Promotion/Fall Prevention: safety round/check completed treat reversible contributory factors room near nurse's station nonskid shoes/slippers when out of bed patient and family education increase visualization of patient assistive device/personal items within reach Goal: Optimal Pain Control and Function 10/25/20232303 by Wes Bui RN Outcome: Progressing 10/25/20232302 by Wes Bui RN Outcome: Progressing Goal: Nausea and Vomiting Relief 10/25/20232303 by Wes Bui RN Outcome: Progressing 10/25/20232302 by Wes Bui RN Outcome: Progressing Goal: Effective Urinary Elimination 10/25/20232303 by Wes Bui RN Outcome: Progressing 10/25/20232302 by Wes Bui RN Outcome: Progressing Goal: Effective Oxygenation and Ventilation 10/25/20232303 by Wes Bui RN Outcome: Progressing 10/25/20232302 by Wes Bui RN Outcome: Progressing Goal Outcome Evaluation: Outcome Evaluation: passing gas, cooperative with ambulation, no n/v, no PRN analgesics given * Plan of Care - Lili Kemp RN - 10/25/2023 2:39 PM CDT To Do: End of Shift Summary For vital signs and complete assessments, please see documentation flowsheets. Pertinent assessments: VSS except hypertensive. On 2 L NC. BS active, passing flatus, and first BM since surgery. Oxycodone and tylenol given x 1 for abdominal pain. Benzocaine spray given x1 for throat pain. Lap sites and midline incisions with no drainage. Major shift: none Treatment Plan: full liquid, pain control. -wean O2 as tolerated, Encourage activity/ambulation as tolerated. Monitor bowel function. Symptom management, CRS following Bedside Nurse: Kacy Kemp RN Goal Outcome Evaluation: Problem: Adult Inpatient Plan of Care Goal: Plan of Care Review Description: The Plan of Care Review/Shift note should be completed every shift. The Outcome Evaluation is a brief statement about your assessment that the patient is improving, declining, or no change. This information will be displayed automatically on your shift note. 10/25/2023 1438 by Lili Kemp RN Outcome: Progressing Flowsheets (Taken 10/25/2023 1438) Outcome Evaluation: Passing gas, had first NM today since surgery. No nausea/vomiting. Pain managedwith tylenol and oxycodone. Plan of Care Reviewed With: patient Overall Patient Progress: improving 10/25/2023 1348 by Lili Kemp RN Outcome: Progressing Flowsheets (Taken 10/25/2023 1348) Outcome Evaluation: Passing gas, had first BM today since surgery. No nausea/vomiting. Pain managedwith tylenol and oxycodone. Plan of Care Reviewed With: patient Overall Patient Progress: improving Goal: Patient-Specific Goal (Individualized) Description: You can add care plan individualizations to a care plan. Examples of Individualizationmight be: Parent requests to be called daily at 9am for status, I have a hard time hearing out of my right ear, or Do not touch me to wake me up as it startles me. 10/25/2023 1438 by Lili Kemp RN Outcome: Progressing 10/25/2023 1348 by Lili Kemp RN Outcome: Progressing Goal: Absence of Hospital-Acquired Illness or Injury 10/25/2023 1438 by Lili Kemp RN Outcome: Progressing 10/25/2023 1348 by Lili Kemp RN Outcome: Progressing Intervention: Identify and Manage Fall Risk Recent Flowsheet Documentation Taken 10/25/2023 0916 by Lili Kemp RN Safety Promotion/Fall Prevention: safety round/check completed Goal: Optimal Comfort and Wellbeing 10/25/2023 1438 by Lili Kemp RN Outcome: Progressing 10/25/2023 1348 by Lili Kemp RN Outcome: Progressing Intervention: Monitor Pain and Promote Comfort Recent Flowsheet Documentation Taken 10/25/2023 0916 by Lili Kemp RN Pain Management Interventions: rest medication (see MAR) Goal: Readiness for Transition of Care 10/25/2023 1438 by Lili Kemp, MEDHAT Outcome: Progressing 10/25/2023 1348 by Lili Kemp, RN Outcome: Progressing Problem: Surgery Nonspecified Goal: Absence of Bleeding 10/25/2023 1438 by Lili Kemp, MEDHAT Outcome: Progressing 10/25/2023 1348 by Lili Kemp, RN Outcome: Progressing Goal: Effective Bowel Elimination 10/25/2023 1438 by Lili Kemp, RN Outcome: Progressing 10/25/2023 1348 by Lili Kemp, MEDHAT Outcome: Progressing Goal: Fluid and Electrolyte Balance 10/25/2023 1438 by Lili Kemp, RN Outcome: Progressing 10/25/2023 1348 by Lili Kemp, RN Outcome: Progressing Goal: Blood Glucose Level Within Targeted Range 10/25/2023 1438 by Lili Kemp, RN Outcome: Progressing 10/25/2023 1348 by Lili Kemp, MEDHAT Outcome: Progressing Goal: Absence of Infection Signs and Symptoms 10/25/2023 1438 by Lili Kemp, RN Outcome: Progressing 10/25/2023 1348 by Lili Kemp, MEDHAT Outcome: Progressing Goal: Anesthesia/Sedation Recovery 10/25/2023 1438 by Lili Kemp, RN Outcome: Progressing 10/25/2023 1348 by Lili Kemp, RN Outcome: Progressing Intervention: Optimize Anesthesia Recovery Recent Flowsheet Documentation Taken 10/25/2023 0916 by Lili Kemp, MEDHAT Safety Promotion/Fall Prevention: safety round/check completed Goal: Optimal Pain Control and Function 10/25/2023 1438 by Lili Kemp, MEDHAT Outcome: Progressing 10/25/2023 1348 by Lili Kemp, MEDHAT Outcome: Progressing Intervention: Prevent or Manage Pain Recent Flowsheet Documentation Taken 10/25/2023 0916 by Lili Kemp, comber tender Interventions: rest medication (see MAR) Goal: Nausea and Vomiting Relief 10/25/2023 1438 by Lili Kemp, MEDHAT Outcome: Progressing 10/25/2023 1348 by Lili Kemp RN Outcome: Progressing Goal: Effective Urinary Elimination 10/25/2023 1438 by Lili Kemp RN Outcome: Progressing 10/25/2023 1348 by Lili Kemp RN Outcome: Progressing Goal: Effective Oxygenation and Ventilation 10/25/2023 1438 by Lili Kemp RN Outcome: Progressing 10/25/2023 1348 by Lili Kemp RN Outcome: Progressing Plan of Care Reviewed With: patient Overall Patient Progress: improvingOverall Patient Progress: improving Outcome Evaluation: Passing gas, had first NM today since surgery. No nausea/vomiting. Pain managedwith tylenol and oxycodone. * Plan of Care - Luanne Cedillo RN - 10/25/2023 5:43 AM CDT End of Shift Summary For vital signs and complete assessments, please see documentation flowsheets. Pertinent assessments: VSS except hypertensive. On 2 L NC. BS active, positive flautus. Oxycodone given x 2 for abdominal pains, lidocaine patches also in use. Lap sites and midline incisions with nodrainage. Pt was in a negative mood tonight, stating he doesn't feel like he's going to recover from this. Emotional support and encouragement offered. Treatment Plan: full liquid, pain control. -wean O2 as tolerated, Encourage activity/ambulation as tolerated. Monitor bowel function. Symptom management, CRS following * Plan of Care - Jeanie Aceves RN - 10/24/2023 11:36 PM CDT Pertinent assessments: oriented x4, VSS on 2L 02. BS active and endorses passing flautus. PRN tylenol given 1x, for abdominal pains, Lidocaine patch in place on the abdomen. Lap sites and midline incisions with no drainage, on full liquids, tolerating. Major shift: passing gas, ambulating the halls, abd soft Treatment Plan: full liquid, pain control. -wean O2 as tolerated, Encourage activity/ambulation as tolerated. Monitor bowel function. Symptom management, CRS following Problem: Adult Inpatient Plan of Care Goal: Plan of Care Review Description: The Plan of Care Review/Shift note should be completed every shift. The Outcome Evaluation is a brief statement about your assessment that the patient is improving, declining, or no change. This information will be displayed automatically on your shift note. Outcome: Progressing Flowsheets (Taken 10/24/2023 2336) Outcome Evaluation: passing gas, BS active, No nausea/emesis, pain managed with Tylenol Goal: Patient-Specific Goal (Individualized) Description: You can add care plan individualizations to a care plan. Examples of Individualizationmight be: Parent requests to be called daily at 9am for status, I have a hard time hearing out of my right ear, or Do not touch me to wake me up as it startles me. Outcome: Progressing Goal: Absence of Hospital-Acquired Illness or Injury Outcome: Progressing Intervention: Identify and Manage Fall Risk Recent Flowsheet Documentation Taken 10/24/2023 1618 by Jeanie Aceves RN Safety Promotion/Fall Prevention: assistive device/personal items within reach room organization consistent safety round/check completed room near nurse's station Intervention: Prevent Skin Injury Recent Flowsheet Documentation Taken 10/24/2023 1618 by Jeanie Aceves RN Body Position: position changed independently Intervention: Prevent Infection Recent Flowsheet Documentation Taken 10/24/2023 1618 by Jeanie Aceves RN Infection Prevention: single patient room provided Goal: Optimal Comfort and Wellbeing Outcome: Progressing Goal: Readiness for Transition of Care Outcome: Progressing * Plan of Care - Blanco Vila RN - 10/24/2023 3:44 PM CDT Goal Outcome Evaluation: Plan of Care Reviewed With: patient End of Shift Summary For vital signs and complete assessments, please see documentation flowsheets. Pertinent assessments: oriented x4, VSS on 1L 02, passing gas, BS present. PRN tylenol given 2x, for abdominal pain. Incisions with no drainage, on full liquid Major shift: passing gas, ambulating the halls, abd soft Treatment Plan: full liquid, pain control. -wean O2 as tolerated, Encourage activity/ambulation as tolerated. Monitor bowel function. Symptom management. IVF, CRS following * Plan of Care - Luanne Cedillo RN - 10/24/2023 7:30 AM CDT End of Shift Summary For vital signs and complete assessments, please see documentation flowsheets. Pertinent assessments: VSS except hypertensive. Attempted to wean pt from oxygen, but would desat with sleep and activity, down to mid 80s.It takes several minutes on 2 LPM to recover. Patient passing gas, BS present. PRN tylenol given for abdominal pain. Incisions CDI. Moderate abdominal pain overn ight, alleviated with tylenol. Treatment Plan: NPO, pain control. -wean O2 as tolerated, Encourage activity/ambulation as tolerated. Monitor bowel function. Symptom management. IVF, CRS following * Plan of Care - Jeanie Aceves RN - 10/23/2023 11:06 PM CDT Pertinent assessments: pt A&O 4, forgetful. Denies N/V/SOB, O2 on NC at 2L for dyspnea while lying flat/with exertion. Endorses abdominal pain, 6-8/10, PRN Dilaudid administered. Colectomy convertion site dressing CDI, lap sites/midline OPA, no drainage noted. BS hypoactive. Up assist of 1 withgait belt walker. Voiding spontaneously. LR at 50 mL/Hr Major shift: Pulled NG, refuses reinsertion, CRS notified Ok to have it OFF. NPO Treatment Plan: Pain control. -wean O2 as tolerated, Encourage activity/ambulation as tolerated. Monitor bowel function. Symptom management. IVF, CRS following Problem: Adult Inpatient Plan of Care Goal: Plan of Care Review Description: The Plan of Care Review/Shift note should be completed every shift. The Outcome Evaluation is a brief statement about your assessment that the patient is improving, declining, or no change. This information will be displayed automatically on your shift note. Outcome: Progressing Goal: Patient-Specific Goal (Individualized) Description: You can add care plan individualizations to a care plan. Examples of Individualizationmight be: Parent requests to be called daily at 9am for status, I have a hard time hearing out of my right ear, or Do not touch me to wake me up as it startles me. Outcome: Progressing Goal: Absence of Hospital-Acquired Illness or Injury Outcome: Progressing Intervention: Identify and Manage Fall Risk Recent Flowsheet Documentation Taken 10/23/20231840 by Jeanie Aceves RN Safety Promotion/Fall Prevention: assistive device/personal items within reach safety round/check completed room organization consistent Intervention: Prevent Skin Injury Recent Flowsheet Documentation Taken 10/23/20231840 by Jeanie Aceves RN Body Position: position changed independently Intervention: Prevent and Manage VTE (Venous Thromboembolism) Risk Recent Flowsheet Documentation Taken 10/23/20231840 by Jeanie Aceves RN VTE Prevention/Management: SCDs (sequential compression devices) off Intervention: Prevent Infection Recent Flowsheet Documentation Taken 10/23/20231840 by Jeanie Aceves RN Infection Prevention: single patient room provided rest/sleep promoted Goal: Optimal Comfort and Wellbeing Outcome: Progressing Intervention: Monitor Pain and Promote Comfort Recent Flowsheet Documentation Taken 10/23/20231840 by Jeanie Aceves RN Pain Management Interventions: medication (see MAR) Goal: Readiness for Transition of Care Outcome: Progressing Goal Outcome Evaluation: * Plan of Care - Jeanie Aceves RN - 10/23/2023 7:26 PM CDT Patient removed NG placed earlier, refuses reinsertion, paged CrsDr. Mccain called back and states OK to leave NG out at this time * Plan of Care - Blanco Vila RN - 10/23/2023 4:14 PM CDT Goal Outcome Evaluation: Plan of Care Reviewed With: patient End of Shift Summary For vital signs and complete assessments, please see documentation flowsheets. Pertinent assessments: pt A&O 4, forgetful, Ls dim, denies nausea, SOB, complained of abd pain,05/04/ gave dilaudid 1x oxy 1x Abdominal incisions, no drainage, Audible bowel sounds, pass gas 1x , Major shift: NG placed, x-ray ordered by flyer Treatment Plan: Pain control. O2 support - wean O2 as able. Encourage activity/ambulation as tolerated. Monitor bowel function. Symptom management. IVF, CRS following * Plan of Care - Luanne Cedillo RN - 10/23/2023 5:53 AM CDT End of Shift Summary For vital signs and complete assessments, please see documentation flowsheets. Pertinent assessments: A&O with intermittent mild confusion.. Abdominal incisions CDI. Audible bowel sounds, but not passing flatus yet. Voiding adequate amounts. No emesis or nausea overnight. Scheduled tylenol and prn IV Dilaudid given for abdominal pain. Major Shift Events: Elevated BP. One time dose of IV hydralzine was ordered by on -call MD. Treatment Plan: Pain control. O2 support - wean O2 as able. Encourage activity/ambulation as tolerated. Monitor bowel function. Symptom management. IVF, CRS following * Provider Notification - Luanne Cedillo RN - 10/23/2023 5:17 AM CDT Called the CRS answering service regarding elevated blood pressures. Dr Walls returned my call. He ordered a one time dose of IV hydralazine 10mg. Will continue to monitor. * Plan of Care - Wes Bui RN - 10/22/2023 11:55 PM CDT Assessments: POD#2. A&Ox3, some intermittent mild confusion noted. Abdominal incisions CDI. Audible bowel sounds. Up Ax1 gb and walker to bathroom. No flatus yet. Major Shift Events: 1x brown emesis which looked like hot chocolate from patient's supper. Abdomen was slightly distended with audible bowel sounds, pt complained of increasing abdominal epigastric pain, on-call MD was notified, PRN dilaudid and zofran given. Advised to inform patient to regulate oral fluid intake. No imaging for now and re-assess in AM. Notify back MD if patient keeps vomiting. Lidocaine patch was also ordered. Placed to 3L/nc and now saturating at mid 90s from low 80s after IV dilaudid. Treatment Plan: Pain control. O2 support - wean O2 as able. Encourage activity/ambulation as tolerated. Monitor bowel function. Symptom management. IVF, Colorectal Surgery following Bedside Nurse: Wes Bui RN Problem: Adult Inpatient Plan of Care Goal: Plan of Care Review Description: The Plan of Care Review/Shift note should be completed every shift. The Outcome Evaluation is a brief statement about your assessment that the patient is improving, declining, or no change. This information will be displayed automatically on your shift note. Outcome: Not Progressing Flowsheets (Taken 10/22/2023 2355) Outcome Evaluation: no gas yet, intermittent abdominal pain, BP elevated, 1x emesis, unable to tolerate doet Plan of Care Reviewed With: patient Goal: Patient-Specific Goal (Individualized) Description: You can add care plan individualizations to a care plan. Examples of Individualizationmight be: Parent requests to be called daily at 9am for status, I have a hard time hearing out of my right ear, or Do not touch me to wake me up as it startles me. Outcome: Not Progressing Goal: Absence of Hospital-Acquired Illness or Injury Outcome: Not Progressing Intervention: Identify and Manage Fall Risk Recent Flowsheet Documentation Taken 10/22/2023 1600 by Wes Bui RN Safety Promotion/Fall Prevention: activity supervised assistive device/personal items within reach lighting adjusted mobility aid in reach nonskid shoes/slippers when out of bed safety round/check completed room near nurse's station treat reversible contributory factors increase visualization of patient Intervention: Prevent Skin Injury Recent Flowsheet Documentation Taken 10/22/2023 1600 by Wes Bui RN Body Position: sitting up in bed Intervention: Prevent and Manage VTE (Venous Thromboembolism) Risk Recent Flowsheet Documentation Taken 10/22/2023 1600 by Wes Bui RN VTE Prevention/Management: SCDs (sequential compression devices) off Intervention: Prevent Infection Recent Flowsheet Documentation Taken 10/22/2023 1600 by Wes Bui RN Infection Prevention: rest/sleep promoted single patient room provided Goal: Optimal Comfort and Wellbeing Outcome: Not Progressing Goal: Readiness for Transition of Care Outcome: Not Progressing Problem: Surgery Nonspecified Goal: Absence of Bleeding Outcome: Not Progressing Goal: Effective Bowel Elimination Outcome: Not Progressing Goal: Fluid and Electrolyte Balance Outcome: Not Progressing Goal: Blood Glucose Level Within Targeted Range Outcome: Not Progressing Goal: Absence of Infection Signs and Symptoms Outcome: Not Progressing Goal: Anesthesia/Sedation Recovery Outcome: Not Progressing Intervention: Optimize Anesthesia Recovery Recent Flowsheet Documentation Taken 10/22/2023 1600 by Wes Bui RN Safety Promotion/Fall Prevention: activity supervised assistive device/personal items within reach lighting adjusted mobility aid in reach nonskid shoes/slippers when out of bed safety round/check completed room near nurse's station treat reversible contributory factors increase visualization of patient Goal: Optimal Pain Control and Function Outcome: Not Progressing Goal: Nausea and Vomiting Relief Outcome: Not Progressing Goal: Effective Urinary Elimination Outcome: Not Progressing Goal: Effective Oxygenation and Ventilation Outcome: Not Progressing Goal Outcome Evaluation: Plan of Care Reviewed With: patient, spouse Outcome Evaluation: no gas yet, intermittent abdominal pain, BP elevated, 1x emesis, unable to tolerate doet * Plan of Care - Blanco Vila RN - 10/22/2023 3:42 PM CDT Goal Outcome Evaluation: Plan of Care Reviewed With: patient End of Shift Summary For vital signs and complete assessments, please see documentation flowsheets. Pertinent assessments: POD#2. Pt A&Ox4. On room air, VSS. Denies SOB, nausea or vomiting, BS audible, abdominal soft, midline incision with no drainage, and 4 lap sites open to air, no gas, no BM, C/O pain, given prn oxy, 1x, and schedule tylenol, PIV infusing LR at 50mls/hr. MARIZA removed, pt ambulated to the bathroom and sat on the chair Major Shift Events: None Treatment Plan: Pain control. O2 support-wean O2. Encourage activity as tolerated. Monitor bowel function. Symptom management. IVF * Plan of Care - Satish Zaldivar RN - 10/22/2023 7:30 AM CDT For vital signs and complete assessments, please see documentation flowsheets. [id number] Pertinent assessments: POD#2. Pt A&Ox4. On 2L NC. Afebrile.Elevated BP other VSS. C/O pain, nausea, & hiccups given prn oxy, one time order of baclofen, & zofran odt. PIV infusing LR at 75mls/hr. MARIZA drain in place with bloody output. B Major Shift Events: After taking oxy & tylenol Pt had a small emesis episode witnessed by charge weigher. In addition Pt was found to have home meds in his bed inside of an Altoids container. Treatment Plan: Pain control. O2 support-wean O2. Encourage activity as tolerated. Monitor bowel function. Symptom management. IVF. MARIZA drain. Bedside Nurse: Satish Zaldivar RN Problem: Adult Inpatient Plan of Care Goal: Plan of Care Review Description: The Plan of Care Review/Shift note should be completed every shift. The Outcome Evaluation is a brief statement about your assessment that the patient is improving, declining, or no change. This information will be displayed automatically on your shift note. Outcome: Not Progressing Flowsheets (Taken 10/22/2023 6410) Outcome Evaluation: Pt is voiding, on 2L NC IVF infusing, Elevated BP pain control with tylenol & oxycodone Plan of Care Reviewed With: patient Goal: Patient-Specific Goal (Individualized) Description: You can add care plan individualizations to a care plan. Examples of Individualizationmight be: Parent requests to be called daily at 9am for status, I have a hard time hearing out of my right ear, or Do not touch me to wake me up as it startles me. Outcome: Not Progressing Goal: Absence of Hospital-Acquired Illness or Injury Outcome: Not Progressing Intervention: Identify and Manage Fall Risk Recent Flowsheet Documentation Taken 10/22/2023127 by Satish Zaldivar RN Safety Promotion/Fall Prevention: assistive device/personal items within reach clutter free environment maintained nonskid shoes/slippers when out of bed room near nurse's station room organization consistent safety round/check completed treat reversible contributory factors Intervention: Prevent Skin Injury Recent Flowsheet Documentation Taken 10/22/2023127 by Satish Zaldivar RN Body Position: position changed independently Intervention: Prevent and Manage VTE (Venous Thromboembolism) Risk Recent Flowsheet Documentation Taken 10/22/2023127 by Satish Zaldivar RN VTE Prevention/Management: SCDs (sequential compression devices) off Intervention: Prevent Infection Recent Flowsheet Documentation Taken 10/22/2023127 by Satish Zaldivar RN Infection Prevention: cohorting utilized personal protective equipment utilized rest/sleep promoted single patient room provided Goal: Optimal Comfort and Wellbeing Outcome: Not Progressing Goal: Readiness for Transition of Care Outcome: Not Progressing Problem: Surgery Nonspecified Goal: Absence of Bleeding Outcome: Not Progressing Goal: Effective Bowel Elimination Outcome: Not Progressing Goal: Fluid and Electrolyte Balance Outcome: Not Progressing Goal: Blood Glucose Level Within Targeted Range Outcome: Not Progressing Goal: Absence of Infection Signs and Symptoms Outcome: Not Progressing Goal: Anesthesia/Sedation Recovery Outcome: Not Progressing Intervention: Optimize Anesthesia Recovery Recent Flowsheet Documentation Taken 10/22/2023127 by Satish Zaldivar RN Safety Promotion/Fall Prevention: assistive device/personal items within reach clutter free environment maintained nonskid shoes/slippers when out of bed room near nurse's station room organization consistent safety round/check completed treat reversible contributory factors Goal: Optimal Pain Control and Function Outcome: Not Progressing Goal: Nausea and Vomiting Relief Outcome: Not Progressing Goal: Effective Urinary Elimination Outcome: Not Progressing Goal: Effective Oxygenation and Ventilation Outcome: Not Progressing Intervention: Optimize Oxygenation and Ventilation Recent Flowsheet Documentation Taken 10/22/2023127 by Satish Zaldivar RN Head of Bed (HOB) Positioning: HOB at 20-30 degrees Goal Outcome Evaluation: Plan of Care Reviewed With: patient Outcome Evaluation: Pt is voiding, on 2L NC IVF infusing, Elevated BP pain control with tylenol & oxycodone * Significant Event - Kenyatta Hopper MD - 10/22/2023 2:37 AM CDT Significant Event Note Time of event: 2:37 AM October 22, 2023 Description of event: Contacted by nursing that the patient was having intractable hiccups preventing him from sleeping Plan: Chart reviewed, baclofen 10 mg orally x 1 ordered Discussed with: bedside nurse Kenyatta Hopper MD * Plan of Care - Blanco Vila RN - 10/21/2023 10:51 PM CDT Goal Outcome Evaluation: Plan of Care Reviewed With: patient End of Shift Summary For vital signs and complete assessments, please see documentation flowsheets. Pertinent assessments: pt A&Ox4, VSS. On . Denies nausea and SOB,complained of abd pain, gavePRN Oxycodone 1x, refused schedule tylenol, Assist x1 with walker & gait belt. LR infusing at 75ml/hr. Midline incision & lap sites sites are open to air. No drainage noted. BS are audible, No passing gas. Tolerating full liquid diet well Major Shift Events: voided urine Treatment Plan: IVF. Pain & symptom management. IS, PT & OT, Encourage activity as tolerated * Plan of Care - Milli Morales RN - 10/21/2023 2:57 PM CDT Goal Outcome Evaluation: Plan of Care Reviewed With: patient, spouse Outcome Evaluation: Velazquez removed, Capno D/C'd. Pain control with Tylenol & Oxycodone Pertinent assessments: A&Ox4, VSS. On RA. C/O incision pain. PRN Oxycodone & scheduled Tylenol given for pain control. Assist x1 with walker & gait belt. Velazquez catheter D/C'd. Due to void. Advanced to full liquid & tolerating well. LR infusing at 75ml/hr. Midline incision & lap sites sites are open to air. No drainage noted. Ice applied for comfort. Denied Nausea or vomiting. BS are hypoactive. No passing gas. IS provided. Ambulated to [address] x1. Major Shift Events: Velazquez catheter removed, Capno D/C'd. Pain control. Treatment Plan: IVF. Pain & symptom management. IS, PT & OT, Encourage activity as tolerated Problem: Adult Inpatient Plan of Care Goal: Plan of Care Review Description: The Plan of Care Review/Shift note should be completed every shift. The Outcome Evaluation is a brief statement about your assessment that the patient is improving, declining, or no change. This information will be displayed automatically on your shift note. Outcome: Progressing Flowsheets (Taken 10/21/2023 1457) Outcome Evaluation: Velazquez removed, Capno D/C'd. Pain control with Tylenol & Oxycodone Plan of Care Reviewed With: patient spouse Goal: Patient-Specific Goal (Individualized) Description: You can add care plan individualizations to a care plan. Examples of Individualizationmight be: Parent requests to be called daily at 9am for status, I have a hard time hearing out of my right ear, or Do not touch me to wake me up as it startles me. Outcome: Progressing Goal: Absence of Hospital-Acquired Illness or Injury Outcome: Progressing Intervention: Identify and Manage Fall Risk Recent Flowsheet Documentation Taken 10/21/2023824 by Milli Morales RN Safety Promotion/Fall Prevention: activity supervised assistive device/personal items within reach Intervention: Prevent Skin Injury Recent Flowsheet Documentation Taken 10/21/2023824 by Milli Morales RN Body Position: position changed independently Intervention: Prevent and Manage VTE (Venous Thromboembolism) Risk Recent Flowsheet Documentation Taken 10/21/2023824 by Milli Morales RN VTE Prevention/Management: compression stockings off Intervention: Prevent Infection Recent Flowsheet Documentation Taken 10/21/2023824 by Milli Morales RN Infection Prevention: personal protective equipment utilized Goal: Optimal Comfort and Wellbeing Outcome: Progressing Intervention: Monitor Pain and Promote Comfort Recent Flowsheet Documentation Taken 10/21/2023 09 by Milli Morales RNcomber tender Interventions: medication (see MAR) Taken 10/21/2023824 by Milli Morales RNcomber tender Interventions: medication (see MAR) Goal: Readiness for Transition of Care Outcome: Progressing Problem: Surgery Nonspecified Goal: Absence of Bleeding Outcome: Progressing Goal: Effective Bowel Elimination Outcome: Progressing Goal: Fluid and Electrolyte Balance Outcome: Progressing Goal: Blood Glucose Level Within Targeted Range Outcome: Progressing Goal: Absence of Infection Signs and Symptoms Outcome: Progressing Goal: Anesthesia/Sedation Recovery Outcome: Progressing Intervention: Optimize Anesthesia Recovery Recent Flowsheet Documentation Taken 10/21/2023824 by Milli Morales RN Safety Promotion/Fall Prevention: activity supervised assistive device/personal items within reach Goal: Optimal Pain Control and Function Outcome: Progressing Intervention: Prevent or Manage Pain Recent Flowsheet Documentation Taken 10/21/2023 09 by Milli Morales RNcomber tender Interventions: medication (see MAR) Taken 10/21/2023824 by Milli Morales RNcomber tender Interventions: medication (see MAR) Goal: Nausea and Vomiting Relief Outcome: Progressing Goal: Effective Urinary Elimination Outcome: Progressing Goal: Effective Oxygenation and Ventilation Outcome: Progressing Intervention: Optimize Oxygenation and Ventilation Recent Flowsheet Documentation Taken 10/21/2023824 by Milli Morales RN Head of Bed (HOB) Positioning: HOB at 20-30 degrees * Plan of Care - Satish Zaldivar RN - 10/21/2023 7:05 AM CDT For vital signs and complete assessments, please see documentation flowsheets. [id number] Pertinent assessments: POD#1. Pt A&Ox4. On 3L NC. Afebrile. Elevated BP other VSS. Denies nausea. C/O pain given prn oxy po,dilaudid IV & scheduled tylenol. Velazquez in place with adequate output. MARIZA in place with bloody output. Capno in place. PIV infusing LR at 75mls/hr. B Major Shift Events: none Treatment Plan: Pain Control. IVF. Symptom management. Monitor BP. Velazquez. Encourage activity as tolerated Bedside Nurse: Satish Zaldivar RN Problem: Adult Inpatient Plan of Care Goal: Plan of Care Review Description: The Plan of Care Review/Shift note should be completed every shift. The Outcome Evaluation is a brief statement about your assessment that the patient is improving, declining, or no change. This information will be displayed automatically on your shift note. 10/21/2023703 by Satish Zaldivar RN Outcome: Not Progressing Flowsheets (Taken 10/21/2023703) Plan of Care Reviewed With: patient Overall Patient Progress: no change 10/21/2023702 by Satish Zaldivar RN Outcome: Progressing Goal: Patient-Specific Goal (Individualized) Description: You can add care plan individualizations to a care plan. Examples of Individualizationmight be: Parent requests to be called daily at 9am for status, I have a hard time hearing out of my right ear, or Do not touch me to wake me up as it startles me. 10/21/2023703 by Satish Zaldivar RN Outcome: Not Progressing 10/21/2023702 by Satish Zaldivar RN Outcome: Progressing Goal: Absence of Hospital-Acquired Illness or Injury 10/21/2023703 by Satish Zaldivar RN Outcome: Not Progressing 10/21/2023702 by Satish Zaldivar RN Outcome: Progressing Intervention: Identify and Manage Fall Risk Recent Flowsheet Documentation Taken 10/21/2023147 by Satish Zaldivar RN Safety Promotion/Fall Prevention: lighting adjusted clutter free environment maintained increased rounding and observation safety round/check completed assistive device/personal items within reach nonskid shoes/slippers when out of bed room near nurse's station room organization consistent treat reversible contributory factors Intervention: Prevent Skin Injury Recent Flowsheet Documentation Taken 10/21/2023147 by Satish Zaldivar RN Body Position: position changed independently Goal: Optimal Comfort and Wellbeing 10/21/2023703 by Satish Zaldivar RN Outcome: Not Progressing 10/21/2023702 by Satish Zaldivar RN Outcome: Progressing Goal: Readiness for Transition of Care 10/21/2023703 by Satish Zaldivar RN Outcome: Not Progressing 10/21/2023702 by Satish Zaldivar RN Outcome: Progressing Problem: Surgery Nonspecified Goal: Absence of Bleeding 10/21/2023703 by Satish Zaldivar RN Outcome: Not Progressing 10/21/2023702 by Satish Zaldivar RN Outcome: Progressing Goal: Effective Bowel Elimination 10/21/2023703 by Satish Zaldivar RN Outcome: Not Progressing 10/21/2023702 by Satish Zaldivar RN Outcome: Progressing Goal: Fluid and Electrolyte Balance 10/21/2023703 by Saitsh Zaldivar RN Outcome: Not Progressing 10/21/2023702 by Satish Zaldivar RN Outcome: Progressing Goal: Blood Glucose Level Within Targeted Range 10/21/2023703 by Satish Zaldivar RN Outcome: Not Progressing 10/21/2023702 by Satish Zaldivar RN Outcome: Progressing Goal: Absence of Infection Signs and Symptoms 10/21/2023703 by Satish Zaldivar RN Outcome: Not Progressing 10/21/2023702 by Satish Zaldivar RN Outcome: Progressing Goal: Anesthesia/Sedation Recovery 10/21/2023703 by Satish Zaldivar RN Outcome: Not Progressing 10/21/2023702 by Satish Zaldivar RN Outcome: Progressing Intervention: Optimize Anesthesia Recovery Recent Flowsheet Documentation Taken 10/21/2023 0148 by Satish Zaldivar RN Safety Promotion/Fall Prevention: lighting adjusted clutter free environment maintained increased rounding and observation safety round/check completed assistive device/personal items within reach nonskid shoes/slippers when out of bed room near nurse's station room organization consistent treat reversible contributory factors Goal: Optimal Pain Control and Function 10/21/2023703 by Satish Zaldivar RN Outcome: Not Progressing 10/21/2023702 by Satish Zaldivar RN Outcome: Progressing Goal: Nausea and Vomiting Relief 10/21/2023703 by Satish Zaldivar RN Outcome: Not Progressing 10/21/2023702 by Satish Zaldivar RN Outcome: Progressing Goal: Effective Urinary Elimination 10/21/2023703 by Satish Zaldivar RN Outcome: Not Progressing 10/21/2023702 by Satish Zaldivar RN Outcome: Progressing Goal: Effective Oxygenation and Ventilation 10/21/2023703 by Zaldivar, Satish R, RN Outcome: Not Progressing 10/21/2023 0703 by Satish Zaldivar RN Outcome: Progressing Intervention: Optimize Oxygenation and Ventilation Recent Flowsheet Documentation Taken 10/21/2023 0148 by Satish Zaldivar RN Head of Bed (HOB) Positioning: HOB at 20-30 degrees Goal Outcome Evaluation: Plan of Care Reviewed With: patient Overall Patient Progress: no changeOverall Patient Progress: no change * Plan of Care - Kaylin Bright RN - 10/20/2023 10:38 PM CDT Pertinent assessments: A&Ox4. BP elevated, but improving after better pain control. 3LNC. Incisions open to air with glue, no BS, not passing gas. Velazquez in place. MARIZA with bloody output. IV dilaudid & scheduled tylenol given for pain. Abd binder in place and ice applied. Tolerating clears. Major Shift Events Arrived from PACU @ 2029. Treatment Plan: IVF, pain control, Bedside Nurse: Kaylin Bright RN Problem: Adult Inpatient Plan of Care Goal: Plan of Care Review Description: The Plan of Care Review/Shift note should be completed every shift. The Outcome Evaluation is a brief statement about your assessment that the patient is improving, declining, or no change. This information will be displayed automatically on your shift note. Outcome: Progressing Flowsheets (Taken 10/20/20232236) Outcome Evaluation: Arrived from PACU, pt stable Plan of Care Reviewed With: patient Overall Patient Progress: no change Goal: Patient-Specific Goal (Individualized) Description: You can add care plan individualizations to a care plan. Examples of Individualizationmight be: Parent requests to be called daily at 9am for status, I have a hard time hearing out of my right ear, or Do not touch me to wake me up as it startles me. Outcome: Progressing Goal: Absence of Hospital-Acquired Illness or Injury Outcome: Progressing Intervention: Identify and Manage Fall Risk Recent Flowsheet Documentation Taken 10/20/20232223 by Kaylin Bright, RN Safety Promotion/Fall Prevention: lighting adjusted clutter free environment maintained increased rounding and observation safety round/check completed Intervention: Prevent Skin Injury Recent Flowsheet Documentation Taken 10/20/20232223 by Kaylin Bright RN Body Position: supine, head elevated Intervention: Prevent and Manage VTE (Venous Thromboembolism) Risk Recent Flowsheet Documentation Taken 10/20/20232223 by Kaylin Bright RN VTE Prevention/Management: SCDs (sequential compression devices) on Goal: Optimal Comfort and Wellbeing Outcome: Progressing Goal: Readiness for Transition of Care Outcome: Progressing Intervention: Mutually Develop Transition Plan Recent Flowsheet Documentation Taken 10/20/20232229 by Kaylin Bright RN Equipment Currently Used at Home: none Goal Outcome Evaluation: Plan of Care Reviewed With: patient Overall Patient Progress: no changeOverall Patient Progress: no change Outcome Evaluation: Arrived from PACU, pt stable * Brief Op Note - Milli Jacobs MD - 10/20/2023 6:06 PM CDT [facility] Brief Operative Note Pre-operative diagnosis: Colonic diverticular abscess [K57.20] Post-operative diagnosis Same as pre-operative diagnosis Procedure: Intraoperative colonoscopy, N/A - Rectum robotic sigmoid colectomy converted to open, N/A - Abdomen Surgeon: Surgeon(s) and Role: * Tammy Montoya MD - Primary * Kalyn Villagomez PA-C - Assisting * Milli Jacobs MD - Fellow - Assisting Anesthesia: General Estimated Blood Loss: 50 mL from 10/20/2023 1:34 PM to 10/20/2023 6:03 PM Drains: Billy-Mitchell Specimens: ID Type Source Tests Collected by Time Destination 1 : ASCENDING COLON POLYP Polyp Large Intestine, Colon, Ascending SURGICAL PATHOLOGY EXAM Tammy Montoya MD 10/20/2023 1:59 PM 2 : Sigmoid colon - suture madison distal Tissue Large Intestine, Colon, Sigmoid SURGICAL PATHOLOGY EXAM Tammy Montoya MD 10/20/2023 4:32 PM Findings: 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 Anastomosis 11 cm from anal verge. Complications: None. Implants: * No implants in log * ADDENDUM: PATIENT DATA Indicate Y or N: Home O2 No Hemodialysis No Transplant patient No Cirrhosis No Steroids in last 30 days No Immunomodulators in last 30 days No Anticoagulation at time of surgery No List medication N/A Prior abdominal surgery No Pelvic irradiation No Albumin within 30 days if known N/A Hgb within 30 days if known N/A Cr within 30 days if known N/A Body mass index is 24.05 kg/m??. OR DATA Emergent No <24 hours No <1 week No Bowel Prep (Y or N) Yes Antibiotics (Y or N) Yes DVT prophylaxis Heparin Yes SCD Yes None No Drain Yes ASA (1,2,3,4,5 if unknown) 3 OR time (min) 197 Stents No Transfuse >/= 2U No Anastomosis Stapled Yes Handsewn Yes Leak Test (pos, neg, not done) negative * Op Note - Tammy Montoya MD - 10/20/2023 2:37 PM CDT Operative Report Pre Operative Diagnosis: 1) Complicated Sigmoid Diverticulitis with pelvic abscess Post Operative Diagnosis 1) Same Surgery: Intraoperative colonoscopy with polypectomy Robotic converted to open sigmoid colectomy Intraoperative fluorescence angiography Colorectal anastomosis Rigid proctoscopy with pneumatic leak testing Surgeon: Maddi Montoya MD Wind Farm Operations Manager: Kalyn Villagomez PA-C A skilled evaluation assistant was necessary due to the technical complexity of the procedure and for the patient's safety. The certified medical technician assistant helped me with positioning, retraction, visualization of the operative field, meticulous wound closure and moreover helped to complete the procedures in a technicallysafe and efficient manner. Second Wind Farm Operations Manager: Milli Jacobs MD (colorectal surgery fellow) Anesthesia: General EBL: 50 mL Findings: There was a large flat polyp removed from the ascending colon on colonoscopy. A clip was placed. There was evidence of sigmoid diverticulitis with a chronic abscess cavity at the sacral promontory. There was a significant amount of fibrosis and scarring posterior to the sigmoid colon at the location of the abscess cavity. Given the significant amount of scarring and fibrosis from this chronic infection we had difficulty mobilizing the colon robotically and therefore elected to proceedwith open procedure. There was adhesions of the sigmoid colon to the pelvic sidewall and a loop of small bowel. The small bowel was dissected free and there is no evidence of injury. The colorectal an astomosis was noted at 11 cm from the anal verge. 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 He was advised of the risks and benefits or surgery. The risks discussed include but are not limited to the risk of bleeding, anastomotic leak, wound infection, injury to adjacent structures, development of a hernia, need for further surgeryincluding creating a stoma, and even more serious complications. We discussed expectations regarding recovery. He wishes to proceed. Description of procedure: After obtaining informed consent the patient was brought to the operatingroom after a complete bowel prep. He was placed on the operating table and general anesthesia was induced. He was intubated by the anesthesia service without difficulty. We then proceeded with intraoperative colonoscopy. Please see the Provation dictation for full details regarding this portion of the procedure. Velazquez catheter was placed under sterile conditions. An orogastric tube was placed. The patient's arms were tucked at his side. He was secured to the table with tape across the chest. He was placed inthe low modified lithotomy position. All pressure points were inspected and padded appropriately. The abdomen was shaved prepped and draped in the usual sterile fashion. A timeout was undertaken which identified the patient and the correct procedure. We began by making a stab incision in the left upper quadrant of the abdomen. A Veres needle was used to establish pneumoperitoneum. A small incision was made in the supraumbilical position. An 8 mm robotic trocar was placed here without difficulty. We then surveyed the abdomen with 30 degree angled robotic camera. There is no evidence of injury to the underlying viscera and the Veres needle was removed. The abdomen was surveyed and there is no evidence of other pathology. We then performed a laparoscopic-assisted TAP block utilizing 30 mL of half percent Marcaine plain. This was injected in four aliquots; one for each quadrant of the abdomen. We placed 2 additional 8 mm trochars on the left side of the abdomen running in the line across theabdomen transversely. We placed an additional 12 mm robotic trocar in the right lower quadrant and a 5 mm air seal trocar in the right upper quadrant. The air seal device was used to maintain pneumoperitoneum throughout the case. We then placed the patient in steep Trendelenburg position. At this point we docked the robot over the patient's left side and centered the robot on the inferior mesenteric artery. We utilized a tip up grasper in arm #1 fenestrated bipolar in arm #2 the camera in arm #3 and a monopolar scissors in arm #4. Arm #4 was switched out to the vessel sealing device and a robotic stapler as needed. With this instrumentation we performed a mobilization of the colon. We performed a lateral to medial mobilization by the utilizing the monopolar scissors to incise thelateral attachments of the colon to the pelvic sidewall incising along the white line at Toldt. There was significant adhesions of the sigmoid colon to the left pelvic sidewall. There was also evidence of scarring and fibrosis of the mesocolon of the sigmoid at the level of the sacral promontory. There was a loop of small bowel that was stuck to the area of the known chronic pelvic abscess and the area of scarring of the sigmoid mesocolon. We were able to sharply dissect this away using the robotic scissors. After this we attempted to continue to mobilize the sigmoid colon but this is very dif ficult due to the scarring. We also noted that along the left pelvic sidewall there was scarring and we were concerned about being able to identify the left ureter. At this point we elected to convert to an open procedure. The robotic instruments were removed. The robot was undocked. Removed the robotic trocars as well as the air seal device. We then made a lower midline incision extending this from the pubic symphysisto just above the umbilicus. This was done with a 10 blade scalpel. This was carried down through the subcutaneous tissue to the fascia with Bovie electrocautery. The fascia was incised and the abdomen was entered. We then placed large Sascha wound retractor within the wound. The Bookwalter device was assembled and used for retraction. We were able to pack the small bowel and the rest of the colon into the upper abdomen using the Bookwalter device. We then turned our attention back to mobilization of the sigmoid colon. We continued our lateral dissection's down towards the pelvis. We were able to clearly identify the left ureter. The left ureter was kept out of harm's way although we did note that it traveled an area of dense fibrosis and was being pulled medially towards the sigmoid colon where there is the diverticulitis and chronic abscess cavity. Ultimately we are able to dissect the sigmoid colon away from the retroperitoneum and the left pelvic sidewall using a combination of blunt and sharp dissection visualizing the left ureter at all times. Once we are able to mobilize the sigmoid colon we then chose a point for proximal transection. This was at junction of the descending and sigmoid colon. The colon was isolated here and was divided using contour stapler with a green load. We then radially divided the mesocolon using the LigaSure device. When we got towards the area of fibrosis of the mesocolon we stayed very close to the bowel wall and carefully divided the mesocolon with the LigaSure device. Again we made sure that the left ureter was out of harm's way. We thenchose our point of proximal transection a point in the upper rectum where the bowel was healthy. The rectal wall was isolated. An additional green load of the contour stapler was used to divide the rectum. The remaining mesorectum was divided with the LigaSure device. The specimen was passed off the field as sigmoid colon with suture line marking distal. We then irrigated out the abdomen with several liters of warm sterile saline. We ensured that we had adequate drainage of the chronic abscess cavity at the sacral promontory. We then ran our small bowel from the ligament of Treitz to the terminal ileum. There was no evidence of serosal injury. We paid special attention to the area of the small bowel that had been stuck to the chronic abscess cavity. There was no evidence of injury to the small bowel here. I then performed rigid proctoscopy of the rectal stump with rectal stump submerged under saline. There was no evidence of leak from the rectal stump. We then prepared the proximal bowel for anastomosis. Prior to doing this we did have to mobilize the descending colon towards the splenic flexure in order to have adequate reach. After doing so we noticed that there was about a centimeter and a halfdistal descending colon with inadequate perfusion. We elected to resect this prior to creating our anastomosis. The colon wall was isolated and the descending colon was then divided between a Annmarie and a Satish clamp. This additional piece colon was passed off the field to be sent to pathology. A 2-0 Prolene suture was then placed in a pursestring fashion around the cut edge of the bowel wall. The anvil of a 29 mm EEA stapler was then secured within the lumen of the bowel and the suture was tied down to bring the bowel wall type to the shaft of the anvil. Fat was cleared of the adjacent bowel wall close to the anvil and a second pursestring suture of the 2-0 Prolene was placed to secure the anvil. Prior to creating our anastomosis, we assessed perfusion to our proximal colonic conduit with intraoperative fluorescence angiography. Four mL of dilute indocyanine green was injected intravenously by the anesthesia team. We utilized the Firefly technology on the robotic laparoscope to identify blood flow. We identified excellent perfusion of the bowel to the entire conduit. Next the small bowel was swept up out of the pelvis. I then went to the perineal field. I then placed sizers via the anus to the top of the rectal stump. The EEA stapler was then placed via the anus to the top of the rectal stump. Stapler was flush with the bowel wall here and the spike was deployed through the bowel wall just adjacent to the staple line in its midportion. The anvil was to the stapler, stapler was closed and fired after ensuring that the proximal bowel was in proper orientation by inspecting the cut edge of the mesentery to its origin. The stapler was easily retrieved. The anastomotic rings were inspected and found to be intact. The pelvis was filled with saline fora pneumatic leak test. I performed a rigid proctoscopy and a pneumatic leak test was negative. We then proceeded with closure of the abdomen. We changed into clean closing tray as well as clean gown and gloves. We placed a 19 Amharic Lit channel drain through the left most lateral robotic port site is placed this down to the pelvis. This was secured to the skin with a 2-0 nylon drain stitch. We did closed the right lower quadrant 12 mm robotic port site with a 0 Vicryl fascial stitch. Themidline abdominal incision was then closed with looped 0 PDS from either end. The subcutaneous tissue was irrigated with sterile saline. The skin was then closed with a running subcuticular suture atthe midline incision and buried subdermal sutures at the robotic port sites with 4-0 Monocryl. Dermabond was placed as a dressing. The patient was placed in supine position, drapes were taken down, he was awakened extubated and transferred to the PACU in stable condition. Lap, sponge, and needle counts correct at the end of the case x2. SPECIMEN: Ascending colon polyp Sigmoid colon, suture madison distal Maddi Montoya MD * Provider Notification - Viridiana Aguilera RN - 10/20/2023 11:[address] Montoya would like pt to have IV vanco before IV flagyl. Verified length of each infusion and that flagyl will go into OR time. Dr Montoya aware and ordered to give vanco first. * Pharmacy-Admission Medication History - Jeffery Menard [facility] - 10/15/2023 2:21 PM CDT Pre-Admission Medication History Medication history and patient interview completed by pre-admitting RN or pre- op/[employer]. [facility]ist[facility] Everywhere, and chart review. Jeffery Menard, Pharm.D., [facility] Last Reviewed by Lesa Reyes RN on 10/12/2023 at 4:31 PM STRAIGHT CUTTER Med List Medication Sig Last Dose acetaminophen (TYLENOL) 325 MG tablet Take 2 tablets (650 mg) by mouth every 6 hours as needed for mild pain Maximum of 4,000 mg of acetaminophen in any 24 hour period. ALPRAZolam (XANAX) 0.5 MG tablet Take 0.5 mg by mouth 2 times daily as needed for anxiety lactobacillus rhamnosus, GG, (CULTURELL) capsule Take 1 capsule by mouth daily latanoprost (XALATAN) 0.005 % ophthalmic solution Place 1 drop into both eyes every 3 days lisinopril (ZESTRIL) 20 MG tablet Take 20 mg by mouth at bedtime multivitamin w/minerals (MULTI-VITAMIN) tablet Take 1 tablet by mouth daily niacin 50 MG tablet Take 50 mg by mouth daily (with breakfast) nicotine (COMMIT) [address] 2 mg inside cheek 3 times daily nitroGLYcerin (NITROSTAT) 0.[address] 0.4 mg under the tongue every 5 minutes asneeded for chest pain simvastatin (ZOCOR) 20 MG tablet Take 20 mg by mouth At Bedtime vancomycin (VANCOCIN) 125 MG capsule Take 125 mg by mouth 2 times daily documented in this encounter Plan of Treatment Scheduled Referrals Name Type Priority Associated Diagnoses Orde r Schedule Home Care Referral Referral Routine: Next available opening S/P colectomy Ordered: 10/27/2023 documented as of this encounter Procedures Procedure Name Priority Date/Time Associated Diagnosis Comments PLATELET COUNT Routine 10/26/2023 6:08 AM CDT BASIC METABOLIC PANEL Routine 10/25/2023 7:49 AM CDT CBC WITH PLATELETS Routine 10/25/2023 7: 49 AM CDT XR ABDOMEN PORT 1 VIEW Routine 10/23/2023 4:14 PM CDT BASIC METABOLIC PANEL STAT 10/23/2023 9:50 AM CDT XR ABDOMEN 2 VIEWS Routine 10/23/2023 9: 42 AM CDT PLATELET COUNT Routine 10/23/2023 8:45 AM CDT CBC WITH PLATELETS STAT Add-on 10/23/2023 8: 45 AM CDT GLUCOSE BY METER Routine 10/22/2023 6:13 AM CDT GLUCOSE BY METER Routine 10/21/2023 6:35 AM CDT PHOSPHORUS Routine 10/21/2023 6:22 AM CDT MAGNESIUM Routine 10/21/2023 6:22 AM CDT BASIC METABOLIC PANEL Routine 10/21/2023 6:22 AM CDT CBC WITH PLATELETS Routine 10/21/2023 6: 22 AM CDT PLATELET COUNT Routine 10/20/2023 8:56 PM CDT SURGICAL PATHOLOGY EXAM Routine 10/20/2023 1:59 PM CDT COLECTOMY, ROBOT-ASSISTED, USING DA ANA LAURA XI 10/20/2023 1:34 PM CDT Colonic diverticular abscess Special Needs 4hr req COLONOSCOPY 10/20/2023 1:34 PM CDT Colonic diverticular abscess Special Needs 4hr req COLONOSCOPY Routine 10/20/2023 1:02 PM CDT GLUCOSE BY METER Routine 10/20/2023 10:3 4 AM CDT EKG CARDIAC - HIM SCAN 10/06/2023 12:00 AM CDT documented in this encounter Results * Platelet count (10/26/2023 6:08 AM CDT) Platelet Count 345 150 - 450 10e3/uL 10/26/2023 6:20 AM CDT LABORATORY Blood STRUCTURE OF RIGHT UPPER LIMB / Unknown Venipuncture / Unknown 10/26/2023 6:08 AM CDT 10/26/2023 6:17 AM CDT Tammy Montoya MD LAB - BLOOD ORDER CHANEL LABORATORY [facility] [address] Lab (1st floor, no room number) [place] [address], [facility] * (ABNORMAL) CBC with platelets (10/25/2023 7:49 AM CDT) WBC Count 9.8 4.0 - 11.0 10e3/uL [...] Mcneal MD LAB - BLOOD ORDERABL ES LABORATORY [facility] Lab [address] [facility] Lab (1st floor, no room number) [place] [address], [facility] * Basic metabolic panel (10/25/2023 7:49 AM CDT) [facility] Signature Sodium 140 135 - 145 mmol/L 10/25/2023 [...] - 29 mmol/L 10/25/2023 8:17 AM CDT LABORATORY Anion Gap 10 7 - 15 mmol/L 10/25/2023 8:17 AM CDT LABORATORY Urea Nitrogen 15.4 8.0 - 23.0 mg/dL 10/25/2023 8:17 AM CDT LABORATORY Creatinine 0.78 0.67 - 1.17 mg/dL 10/25/2023 8:17 AM CDT LABORATORY GFR Estimate >90 >60 mL/min/1. 73m2 10/25/2023 8:17 AM CDT LABORATORY Calcium 8.9 8.8 - 10.2 mg/dL 10/25/2023 8:17 AM CDT LABORATORY Glucose 92 70 - 99 mg/dL 10/25/2023 8:17 AM CDT LABORATORY Blood STRUCTURE OF RIGHT UPPER LIMB / Unknown Venipuncture / Unknown 10/25/2023 7:49 AM CDT 10/25/2023 7:57 AM CDT Adán Mcneal MD LAB - BLOOD ORDERABL ES [facility] Acute Care Lab [address] [facility] Lab (1st floor, no room number) [place] [address] * XR Abdomen Port 1 View (10/23/2023 4:14 PM CDT) Anatomical Region Laterality Modality Abdomen/Pelvis Digital Radiogra phy 10/23/2023 4:14 PM CDT Impressions 10/23/2023 7:05 PM CDT IMPRESSION: Enteric tube in the body the stomach. Overall bowel loops not well assessed on this study for NG tube placement. Narrative 10/23/2023 7:05 PM CDT EXAM: XR ABDOMEN PORT 1 VIEW LOCATION: [facility] DATE: 10/23/2023 INDICATION: NG tube placement COMPARISON: None. Procedure Note Venkat Martinez MD - 10/23/2023 EXAM: XR ABDOMEN PORT 1 VIEW LOCATION: [facility] DATE: 10/23/2023 INDICATION: NG tube placement COMPARISON: None. IMPRESSION: Enteric tube in the body the stomach. Overall bowel loops notwell assessed on this study for NG tube placement. Tammy Montoya MD IMG DIAGNOSTIC IM AGING ORDERABLES * (ABNORMAL) Basic metabolic panel (10/23/2023 9:50 AM CDT) Sodium 136 135 - 145 mmol/L 10/23/2023 10:20 AM CDT LABORATORY Comment:Reference intervals for this test were updated on 04/20/2023 to more accurately reflect our healthy population. There may be differences in the flagging of prior results with similar values performed with this method. Interpretation of those prior results can be made in the context of the updated reference intervals. Potassium 4.2 3.4 - 5.3 mmol/L 10/23/2023 10:20 AM CDT LABORATORY Chloride 97(L) 98 - 107 mmol/L 10/23/2023 10:20 AM CDT LABORATORY Carbon Dioxide (CO2) 31(H) 22 - 29 mmol/L 10/23/2023 10:20 AM CDT LABORATORY Anion Gap 8 7 - 15 mmol/L 10/23/2023 10:20 AM CDT LABORATORY Urea Nitrogen 12.4 8.0 - 23.0 mg/dL 10/23/2023 10:20 AM CDT LABORATORY Creatinine 0.84 0.67 - 1.17 mg/dL 10/23/2023 10:20 AM CDT LABORATORY GFR Estimate 89 >60 mL/min/1. 73m2 10/23/2023 10:20 AM CDT LABORATORY Calcium 10.0 8.8 - 10.2 mg/dL 10/23/2023 10:20 AM CDT LABORATORY Glucose 138(H) 70 - 99 mg/dL 10/23/2023 10:20 AM CDT LABORATORY Blood STRUCTURE OF RIGHT UPPER LIMB / Unknown Venipuncture / Unknown 10/23/2023 9:50 AM CDT 10/23/2023 9:54 AM CDT Adán Mcneal MD LAB - BLOOD ORDERABL ES LABORATORY [facility] Lab [address] [facility] Lab (1st floor, no room number) [place] [address], [facility] * XR Abdomen 2 Views (10/23/2023 9:42 [...] CDT EXAM: XR ABDOMEN 2 VIEWS LOCATION: [facility] DATE: 10/23/2023 INDICATION: Evaluate for ileus. COMPARISON: CT abdomen and pelvis 08/18/2023. Procedure Note Jillian Nicole MD - 10/23/2023 EXAM: XR ABDOMEN 2 VIEWS LOCATION: [facility] DATE: 10/23/2023 INDICATION: Evaluate for ileus. COMPARISON: [...] IMG DIAGNOSTIC IMAGI NG ORDERABLES * (ABNORMAL) CBC with platelets (10/23/2023 8:45 AM CDT) WBC Count 13.8(H) 4.0 - 11.0 10e3/uL 10/23/2023 10:10 AM CDT [facility] LAB[facility]AT[facility] RBC Count 4.30(L) 4.40 - 5.90 10e6/uL 10/23/2023 10:10 AM CDT [facility] Hemoglobin 13.1(L) 13.3 - 17.7 g/dL 10/23/2023 10:10 AM CDT [facility] Hematocrit 39.5(L) 40.0 - 53.0 % 10/23/2023 10:10 AM CDT [facility] MCV 92 78 - 100 fL 10/23/2023 10:10 AM CDT [facility] MCH 30.5 26.5 - 33.0 pg 10/23/2023 10:10 AM CDT [facility] MCHC 33.2 31.5 - 36.5 g/dL 10/23/2023 10:10 AM CDT [facility] RDW 15.4(H) 10.0 - 15.0 % 10/23/2023 10:10 AM CDT [facility] Platelet Count 320 150 - 450 10e3/uL 10/23/2023 10:10 AM CDT [facility] LAB[facility]AT[facility] Blood STRUCTURE OF LEFT UPPER LIMB / Unknown Venipuncture / Unknown 10/23/2023 8:45 AM CDT 10/23/2023 8:57 AM CDT Adán Mcneal MD LAB - BLOOD ORDERABL ES [facility] [address] Lab (1st floor, no room number) [address] * Platelet count (10/23/2023 8:45 AM CDT) Platelet Count 320 150 - 450 10e3/uL 10/23/2023 9:00 AM CDT [facility] LABORATORY Blood STRUCTURE OF LEFT UPPER LIMB / Unknown Venipuncture / Unknown 10/23/2023 8:45 AM CDT 10/23/2023 8:57 AM CDT Tammy Montoya MD LAB - BLOOD ORDER CHANEL [facility] Acute Care Lab [address] Lab (1st floor, no room number) [place] [id number] [place] [address] * (ABNORMAL) Glucose by meter (10/22/2023 6:13 AM CDT) GLUCOSE BY METER POCT 149(H) 70 - 99 mg/dL 10/22/2023 6:20 AM CDT [facility] LABORATORY POC Blood, Capillary BLOOD SPECIMEN / Unknown 10/22/2023 6:13 AM CDT 10/22/2023 6:20 AM CDT Tammy ALMARAZ - BEAKER POCT LABORATORY [facility] Lab [address] Lab (1st floor, no room number) [place] [address], [facility] * (ABNORMAL) Glucose by meter (10/21/2023 6:35 AM CDT) GLUCOSE BY METER POCT 133(H) 70 - 99 mg/dL 10/21/2023 6:42 AM CDT [facility] LABORATORY POC Blood, Capillary BLOOD SPECIMEN / Unknown 10/21/2023 6:35 AM CDT 10/21/2023 6:42 AM CDT Tammy ALMARAZ - BEAKER POCT LABORATORY [facility] [address] Lab (1st floor, no room number) [place] [address], [facility] * Phosphorus (10/21/2023 6:22 AM CDT) Phosphorus 2.9 2.5 - 4.5 mg/dL 10/21/2023 6:58 AM CDT LABORATORY Blood STRUCTURE OF RIGHT UPPER LIMB / Unknown Venipuncture / Unknown 10/21/2023 6:22 AM CDT 10/21/2023 6:31 AM CDT Tammy Montoya MD LAB - BLOOD ORDER CHANEL [facility] Lab [address] Lab (1st floor, no room number) [place] [address] * Magnesium (10/21/2023 6:22 AM CDT) Magnesium 1.8 1.7 - 2.3 mg/dL 10/21/2023 6:58 AM CDT [facility] Blood STRUCTURE OF RIGHT UPPER LIMB / Unknown Venipuncture / Unknown 10/21/2023 6:22 AM CDT 10/21/2023 6:31 AM CDT Tammy Montoya MD LAB - BLOOD ORDER CHANEL [facility] [address] [facility] Lab (1st floor, no room number) [place] [address] * (ABNORMAL) CBC with platelets (10/21/2023 6:22 AM CDT) WBC Count 12.8(H) 4.0 - 11.0 10e3/uL 10/21/2023 6:35 AM CDT [facility] RBC Count 4.42 4.40 - 5.90 10e6/uL 10/21/2023 6:35 AM CDT [facility] Hemoglobin 13.4 13.3 - 17.7 g/dL 10/21/2023 6:35 AM CDT [facility] Hematocrit 41.4 40.0 - 53.0 % 10/21/2023 6:35 AM CDT [facility] MCV 94 78 - 100 fL 10/21/2023 6:35 AM CDT [facility] MCH 30.3 26.5 - 33.0 pg 10/21/2023 6:35 AM CDT [facility] MCHC 32.4 31.5 - 36.5 g/dL 10/21/2023 6:35 AM CDT [facility] RDW 15.4(H) 10.0 - 15.0 % 10/21/2023 6:35 AM CDT [facility] Platelet Count 302 150 - 450 10e3/uL 10/21/2023 6:35 AM CDT [facility] Blood STRUCTURE OF RIGHT UPPER LIMB / Unknown Venipuncture / Unknown 10/21/2023 6:22 AM CDT 10/21/2023 6:31 AM CDT Tammy Montoya MD LAB - BLOOD ORDER CHANEL LABORATORY [facility] Lab [address] Lab (1st floor, no room number) [place] [address], [facility] * (ABNORMAL) Basic metabolic panel (10/21/2023 6:22 AM CDT) [facility] Sodium 137 135 - 145 mmol/L 10/21/2023 7:30 AM CDT LABORATORY Comment:Reference intervals for this test were updated on 04/20/2023 to more accurately reflect our healthy population. There may be differences in the flagging of prior results with similar values performed with this method. Interpretation of those prior results can be made in the context of the updated reference intervals. Potassium 5.3 3.4 - 5.3 mmol/L 10/21/2023 7:30 AM CDT LABORATORY Chloride 102 98 - 107 mmol/L 10/21/2023 7:30 AM CDT LABORATORY Carbon Dioxide (CO2) 27 22 - 29 mmol/L 10/21/2023 7:30 AM CDT LABORATORY Anion Gap 8 7 - 15 mmol/L 10/21/2023 7:30 AM CDT LABORATORY Urea Nitrogen 14.9 8.0 - 23.0 mg/dL 10/21/2023 7:30 AM CDT LABORATORY Creatinine 0.96 0.67 - 1.17 mg/dL 10/21/2023 7:30 AM CDT LABORATORY GFR Estimate 80 >60 mL/min/1. 73m2 10/21/2023 7:30 AM CDT LABORATORY Calcium 9.5 8.8 - 10.2 mg/dL 10/21/2023 7:30 AM CDT LABORATORY Glucose 137(H) 70 - 99 mg/dL 10/21/2023 7:30 AM CDT LABORATORY Blood STRUCTURE OF RIGHT UPPER LIMB / Unknown Venipuncture / Unknown 10/21/2023 6:22 AM CDT 10/21/2023 6:31 AM CDT Tammy Montoya MD LAB - BLOOD ORDER CHANEL Performing Organization Address [facility]/ZIP Co de Phone Number [facility] [address] Lab (1st floor, no room number) [address] * Platelet count (10/20/2023 8:56 PM CDT) Platelet Count 315 150 - 450 10e3/uL 10/20/2023 9:10 PM CDT LABORATORY Blood STRUCTURE OF LEFT UPPER LIMB / Unknown Venipuncture / Unknown 10/20/2023 8:56 PM CDT 10/20/2023 9:03 PM CDT Tammy Montoya MD LAB - BLOOD ORDER CHANEL Performing Organization Address [facility] Co de Phone Number [facility] [address] [facility] Lab (1st floor, no room number) [address] * Surgical Pathology Exam (10/20/2023 1:59 PM CDT) Case Report Surgical Pathology Report ? Case: [id number] ? Authorizing Provider: ??Tammy Montoya MD ?? Collected: ? 10/20/2023 01:59 PM ? Ordering Location: ? [facility] ?? Received: ?10/20/2023 02:44 PM ? Main [...] flowers-pink and contains a normal folding pattern. Telephone Installer sections are submitted as follows: B1-proximal margin, en face B2-distal margin, en face T2-G1-azpbed diverticula and mucosa B7-additional portion of bowel mucosa (MEET Oliveira) 10/22/2023 2:54 PM CDT LABORATORY Microscopic Description Microscopic examination was performed. 10/22/2023 2:54 PM CDT LABORATORY Performing Labs The technical component of this testing was completed at [facility] 10/22/2023 2:54 PM CDT LABORATORY Case Images 10/22/2023 2:54 PM CDT LABORATORY Polyp ASCENDING COLON STRUCTURE / Unknown 10/20/2023 1:59 PM CDT 10/20/2023 2:44 PM CDT Tissue specimen (specimen) SIGMOID COLON PART / Unknown 10/20/2023 4:32 PM CDT 10/20/2023 6:13 PM CDT Tammy Montoya MD LAB - KAYK[facility] LOPEZ LABORATORY [facility] [address] [facility] Lab (1st floor, no room number) [place] [address] * COLONOSCOPY (10/20/2023 1:02 PM CDT) COLONOSCOPY [facility] Patient Name: Christi Wu ? Procedure Date: 10/20/2023 1:02 PM [...] continuously. The ?Olympus Adult Colonoscope, Model # CF-CC674C, ?Censitrac # [id number] was introduced through the ?anus and advanced [...] Procedure Code(s): ? --- Professional --- ? 64872, Colonoscopy, flexible; with removal of tumor(s), polyp(s), or ? other lesion(s) by snare technique CPT copyright 2021 [employer]. All rights reserved. The codes documented in this report are preliminary and upon right of way agent review may be revised to meet current compliance requirements. TAMMY MONTOYA MD 10/22/2023 5:35:05 PM I was physically present for the entire viewing portion of the exam. TAMMY MONTOYA MD Number of Addenda: 0 Note Initiated On: 10/20/2023 1:02 PM MRN: ?[id number] Procedure Date: ? 10/20/2023 1:02:04 PM Scope Withdrawal Time: 0 hours 12 minutes 56 seconds Total Procedure Duration: 0 hours 19 minutes 53 seconds Estimated Blood Loss: ? Scope In: 1:50:49 PM Scope Out: 2:10:42 PM RADIOLOGY RESULTS 10/20/2023 1:02 PM CDT Tammy Montoya MD PROCEDURES RADIOLOGY RESULTS * Glucose by meter (10/20/2023 10:34 AM CDT) GLUCOSE BY METER POCT 83 70 - 99 mg/dL 10/20/2023 10:41 AM CDT LABORATORY POC Blood, Capillary BLOOD SPECIMEN / Unknown 10/20/2023 10:34 AM CDT 10/20/2023 10:41 AM CDT Tammy Montoya MD LAB - BEAKER POCT LABORATORY POC [facility] [address] Lab (1st floor, no room number) [place] [address], [facility] * EKG CARDIAC - HIM SCAN (10/06/2023 12:00 AM CDT) 10/06/2023 Provider Outside ECG ORDERABLES documented in this encounter Visit Diagnoses Diagnosis S/P colectomy Other postprocedural status Colonic diverticular abscess documented in this encounter Admitting Diagnoses Diagnosis Diverticulitis Diverticulitis of colon (without mention of hemorrhage) documented in this encounter Administered Medications Inactive Administered Medications - up to 3 most recent administrations Medication Order MAR Action Action Date Dose Rate Site acetaminophen (TYLENOL) tablet 650 mg 650 mg, Oral, EVERY 4 HOURS PRN, other, For optimal non-opioid multimodal pain management to improve pain control., Starting on 10/23/23 at 0000, May give first dose 4 hours after last scheduled dose of acetaminophen (TYLENOL). Maximum acetaminophen dose from all sources = 75 mg/kg/day not to exceed 4 grams/day. $Given 10/27/2023 2:31 PM CDT 650 mg $Given 10/27/2023 2:30 PM CDT 650 mg $Given 10/26/2023 3:01 PM CDT 650 mg benzocaine 20% (HURRICAINE/TOPEX) 20 % spray 0.5-1 mL 0.5-1 mL (1-2 spray), Mouth/Throat, EVERY 3 HOURS PRN, sore throat, Starting on 10/24/23 at 1541 $Given 10/26/2023 12:34 PM CDT 0.5 mLs $Given 10/25/2023 10:50 AM CDT 0.5 mLs $Given 10/24/2023 5:54 PM CDT 0.5 mLs benzocaine-menthol (CHLORASEPTIC) 6-10 MG lozenge 1 lozenge 1 lozenge, Buccal, EVERY 1 HOUR PRN, sore throat, Starting on 10/24/23 at 1541 $Given 10/24/2023 5:49 PM CDT 1 lozenge $Given 10/24/2023 4:09 PM CDT 1 lozenge BUPivacaine (MARCAINE) 0.5% preservative free injection PRN, Starting on 10/20/23 at 1506, Intra-procedure $Given 10/20/2023 3:06 PM CDT 30 mLs Operative Site/Surgical Site heparin ANTICOAGULANT injection 5,000 Units 5,000 Units, Subcutaneous, EVERY 8 HOURS, First dose on Bree 10/21/23 at 1230, Check to make sure start date/time is 12-24 hours post op unless documented complication. Continue until discharge to home. HOLD if platelet count falls below 50% of baseline or less than 100,000/??L and notify provider. High concentration heparin. Not for line flush or cath care. $Given 10/27/2023 8:48 AM CDT 5,000 Units $Given 10/27/2023 12:39 AM CDT 5,000 Units $Given 10/26/2023 4:38 PM CDT 5,000 Units hydrALAZINE (APRESOLINE) injection 10 mg 10 mg, Intravenous, EVERY 6 HOURS PRN, SBP > 180, hold if HR > 100, Administer over 1 Minutes, Starting on Wed10/24/23 at 1723 HYDROmorphone (DILAUDID) injection 0.2 mg 0.2 mg, Intravenous, EVERY 2 HOURS PRN, moderate pain, Starting on Wed10/20/23 at 2038, IF patient unable to take oral pain medication or pain not controlled with oral analgesics. Hold IV PRN opioid dose for analgesic side effects. Notify provider to assess for uncontrolled pain or analgesic side effects. $Given 10/23/2023 4:35 AM CDT 0.2 mg $Given 10/22/2023 8:37 PM CDT 0.2 mg $Given 10/21/2023 2:03 AM CDT 0.2 mg HYDROmorphone (DILAUDID) injection 0.4 mg 0.4 mg, Intravenous, EVERY 2 HOURS PRN, severe pain, Starting on Wed10/20/23 at 2038, IF patient unable to take oral pain medication or pain not controlled with oral analgesics. Hold IV PRN opioid dose for analgesic side effects. Notify provider to assess for uncontrolled pain or analgesic side effects. $Given 10/23/2023 10:57 AM CDT 0.4 mg $Given 10/23/2023 6:59 AM CDT 0.4 mg $Given 10/22/2023 10:30 PM CDT 0.4 mg Lidocaine (LIDOCARE) 4 % Patch 2 patch 2 patch, Transdermal, EVERY 24 HOURS 1999, Administer over 12 Hours, First dose on Wed10/22/23 at 2300, Apply patch(s) to affected area. To prevent lidocaine toxicity, patient should be patch free for 12 hrs daily. Patches may be cut to smaller size prior to removing release liner. Reminder: Remove previous patch before applying new patch. NEVER APPLY HEAT OVER PATCH which increases absorption and may lead to local anesthetic toxicity. Do not apply over area where liposomal bupivacaine was injected for 96 hours post injection. $Patch/Med Applied 10/25/2023 8:28 PM CDT 2 patches Other (see comments) $Patch/Med Applied 10/24/2023 9:22 PM CDT 2 patches Other (see comments) $Patch/Med Applied 10/23/2023 9:29 PM CDT 2 patches Other (see comments) lisinopril (ZESTRIL) tablet 20 mg 20 mg, Oral, AT BEDTIME, First dose on Bree 10/21/23 at 2200 $Given 10/26/2023 9:25 PM CDT 20 mg $Given 10/25/2023 9:31 PM CDT 20 mg $Given 10/24/2023 9:22 PM CDT 20 mg naloxone (NARCAN) injection 0.2 mg 0.2 mg, Intravenous, EVERY 2 MIN PRN, opioid reversal, Starting on Wed10/20/23 at 2043, Administer intravenous route when available and notify [...] 2 MIN PRN, opioid reversal, Starting on Wed10/20/23 at 2043, Administer intramuscular if an intravenous route is [...] 2 MIN PRN, opioid reversal, Starting on Wed10/20/23 at 2043, Administer intravenous route when available and notify [...] 2 MIN PRN, opioid reversal, Starting on Wed10/20/23 at 2043, Administer intramuscular if an intravenous route is [...] have not improved after 4 naloxone doses. ondansetron (ZOFRAN ODT) ODT tab 4 mg 4 mg, Oral, EVERY 6 HOURS PRN, nausea, vomiting, Starting on Wed10/20/23 at 2038, This is Step 1 of nausea and vomiting management. If nausea not resolved in 15 minutes, go to Step 2 prochlorperazine (COMPAZINE). Do NOT administer if patient received granisetron (KYTRIL) pre-operatively. With dry hands, peel back foil backing and gently remove tablet. Do not push oral disintegrating tablet through foil backing. Administer immediately on tongue and oral disintegrating tablet dissolves in seconds, then swallow with saliva. Liquid not required. $Given 10/22/2023 5: 05 AM CDT 4 mg ondansetron (ZOFRAN) injection 4 mg 4 mg, Intravenous, EVERY 6 HOURS PRN, nausea, vomiting, Administer over 2-5 Minutes, Starting on Wed10/20/23 at 2038, Give IF patient unable to tolerate oral medication. This is Step 1 of nausea and vomiting management. If nausea not resolved in 15 minutes, go to Step 2 prochlorperazine (COMPAZINE). Do NOT administer if patient received granisetron (KYTRIL) pre-operatively. Irritant. $Given 10/23/2023 6:04 AM CDT 4 mg $Given 10/22/2023 10:27 PM CDT 4 mg oxyCODONE (ROXICODONE) tablet 10 mg 10 mg, Oral, EVERY 4 HOURS PRN, severe pain, Starting on Wed10/20/23 at 2038, Hold oral PRN dose for analgesic side effects. Notify provider to assess for uncontrolled pain or analgesic side effects. Hold while on IV MANAGER BEHAVIORAL or with regular IV opioid dosing. $Given 10/23/2023 5:15 PM CDT 10 mg $Given 10/22/2023 7:32 PM CDT 10 mg $Given 10/22/2023 9:16 AM CDT 10 mg oxyCODONE (ROXICODONE) tablet 5 mg 5 mg, Oral, EVERY 4 HOURS PRN, moderate pain, Starting on Wed10/20/23 at 2039, Hold oral PRN dose for analgesic side effects. Notify provider to assess for uncontrolled pain or analgesic side effects. Hold while on IV MANAGER BEHAVIORAL or with regular IV opioid dosing. $Given 10/26/2023 4:49 PM CDT 5 mg $Given 10/26/2023 12:34 PM CDT 5 mg $Given 10/25/2023 1:06 PM CDT 5 mg simvastatin (ZOCOR) tablet 20 mg 20 mg, Oral, AT BEDTIME, First dose on Wed10/21/23 at 2200 $Given 10/26/2023 9:25 PM CDT 20 mg $Given 10/25/2023 9:31 PM CDT 20 mg $Given 10/24/2023 9:22 PM CDT 20 mg sodium chloride (OCEAN) 0.65 % nasal spray 1 spray 1 spray, Both Nostrils, EVERY 1 HOUR PRN, congestion, Starting on Wed10/26/23 at 1024 $Given 10/26/2023 11:03 AM CDT 1 spray sodium chloride (PF) 0.9% PF flush 3 mL 3 mL, Intracatheter, EVERY 8 HOURS, First dose on Wed10/20/23 at 2100, to lock peripheral IV dormant line $Given 10/27/2023 8:48 AM CDT 3 mLs $Given 10/27/2023 12:39 AM CDT 3 mLs $Given 10/26/2023 4:38 PM CDT 3 mLs sodium chloride 0.9% (bottle) irrigation PRN, Starting on Wed10/20/23 at 1712, Intra-procedure $Given 10/20/2023 5:12 PM CDT 1,000 mLs Operative Site/Surgi delma Site sodium chloride 0.9% irrigation (bag) PRN, Starting on Wed10/20/23 at 1634, Intra-procedure $Given 10/20/2023 4:34 PM CDT 2,000 mLs Operative Site/Surgi delma Site documented in this encounter Active and Recently Administered Medications Times are shown in CDT. Scheduled Medication Order 10/25/2023 10/26/2023 10/27/2023 heparin ANTICOAGULANT injection 5,000 Units 5,000 Units, Subcutaneous, EVERY 8 HOURS, First dose on Bree 10/21/23 at 1230, Check to make sure start date/time is 12-24 hours post op unless documented complication. Continue until discharge to home. HOLD if platelet count falls below 50% of baseline or less than 100,000/??L and notify provider. High concentration heparin. Not for line flush or cath care. 0000 (Not Given - Provider: Luanne Cedillo RN - Reason: Patient/family refused)0916 ($Given - Provider: Lili Kemp RN)1751 ($Given - Provider: Wes Bui, MEDHAT) 0029 ($Given - Provider: Luanne Cedillo RN)0758 ($Given - Provider: Latesha Finn)1638 ($Given - Provider: Wes Bui RN) 0039 ($Given - Provider: Satish Zaldivar, MEDHAT)0848 ($Given - Provider: Aria Harrison RN)1600 (Canceled Entry - Provider: Orders Generic Provider - Comment: Automatically canceled at discontinue of medication order) Lidocaine (LIDOCARE) 4 % Patch 2 patch 2 patch, Transdermal, EVERY 24 HOURS 1999, Administer over 12 Hours, First dose on Wed10/22/23 at 2300, Apply patch(s) to affected area. To prevent lidocaine toxicity, patient should be patch free for 12 hrs daily. Patches may be cut to smaller size prior to removing release liner. Reminder: Remove previous patch before applying new patch. NEVER APPLY HEAT OVER PATCH which increases absorption and may lead to local anesthetic toxicity. Do not apply over area where liposomal bupivacaine was injected for 96 hours post injection. 0916 (Patch/Med Removed - Provider: Lili Kemp RN)2028 ($Patch/Med Applied - Provider: Wes Bui RN - Comment: abdomen) 0759 (Patch/Med Removed - Provider: Latesha Finn)212 (Not Given - Provider: Wes Bui RN - Reason: Patient/family refused) lisinopril (ZESTRIL) tablet 20 mg 20 mg, Oral, AT BEDTIME, First dose on Bree 10/21/23 at 2200 2131 ($Given - Provider: Wes Bui RN) 2124 ($Given - Provider: Wes Bui RN) simvastatin (ZOCOR) tablet 20 mg 20 mg, Oral, AT BEDTIME, First dose on Bree 10/21/23 at 2200 2131 ($Given - Provider: Wes Bui RN) 2124 ($Given - Provider: Wes Bui, MEDHAT) sodium chloride (PF) 0.9% PF flush 3 mL 3 mL, Intracatheter, EVERY 8 HOURS, First dose on Wed10/20/23 at 2100, to lock peripheral IV dormant line 1050 ($Given - Provider: Lili Kemp RN)1752 ($Given - Provider: Wes Bui RN) 0033 ($Given - Provider: Luanne Cedillo RN)0759 ($Given - Provider: Latesha Finn)1638 ($Given - Provider: Wes Bui RN) 0039 ($Given - Provider: Satish Zaldivar RN)0848 ($Given - Provider: Aria Harrison, MEDHAT)1600 (Canceled Entry - Provider: Orders Generic Provider - Comment: Automatically canceled at discontinue of medication order) PRN Medication Order 10/25/2023 10/26/2023 10/27/2023 acetaminophen (TYLENOL) tablet 650 mg 650 mg, Oral, EVERY 4 HOURS PRN, other, For optimal non-opioid multimodal pain management to improve pain control., Starting on 10/23/23 at 0000, May give first dose 4 hours after last scheduled dose of acetaminophen (TYLENOL). Maximum acetaminophen dose from all sources = 75 mg/kg/day not to exceed 4 grams/day. 1137 ($Given - Provider: Lili Kemp RN) 1501 ($Given - Provider: Laura Martínez RN) 1430 ($Given - Provider: Aria Harrison RN)1431 ($Given - Provider: Aria Harrison RN) benzocaine 20% (HURRICAINE/TOPEX) 20 % spray 0.5-1 mL 0.5-1 mL (1-2 spray), Mouth/Throat, EVERY 3 HOURS PRN, sore throat, Starting on 10/24/23 at 1541 1050 ($Given - Provider: Lili Kemp, MEDHAT) 1234 ($Given - Provider: Laura Martínez RN) benzocaine-menthol (CHLORASEPTIC) 6-10 MG lozenge 1 lozenge 1 lozenge, Buccal, EVERY 1 HOUR PRN, sore throat, Starting on 10/24/23 at 1541 diazepam (VALIUM) injection 2.5 mg 2.5 mg, Intravenous, Administer over 1-4 Minutes, EVERY 6 HOURS PRN, anxiety, muscle spasms, Starting on Wed10/20/23 at 2039, Vesicant. This drug may cause significant respiratory depression. Monitor respiratory status and vital signs carefully for 1 hour after each dose. hydrALAZINE (APRESOLINE) injection 10 mg 10 mg, Intravenous, EVERY 6 HOURS PRN, SBP > 180, hold if HR > 100, Administer over 1 Minutes, Starting on 10/24/23 at 1723 HYDROmorphone (DILAUDID) injection 0.2 mg(Linked Group 1) 0.2 mg, Intravenous, EVERY 2 HOURS PRN, moderate pain, Starting on Wed10/20/23 at 2038, IF patient unable to take oral pain medication or pain not controlled with oral analgesics. Hold IV PRN opioid dose for analgesic side effects. Notify provider to assess for uncontrolled pain or analgesic side effects. HYDROmorphone (DILAUDID) injection 0.4 mg(Linked Group 1) 0.4 mg, Intravenous, EVERY 2 HOURS PRN, severe pain, Starting on Wed10/20/23 at 2038, IF patient unable to take oral pain medication or pain not controlled with oral analgesics. Hold IV PRN opioid dose for analgesic side effects. Notify provider to assess for uncontrolled pain or analgesic side effects. lidocaine (LMX4) cream Topical, EVERY 1 HOUR PRN, pain, with VAD insertion, Starting on Wed10/20/23 at 2038, Apply at least 30 minutes prior to [...] mild pain with VAD insertion, Starting on Wed10/20/23 at 2038, MAX dose 1 mL subcutaneous OR intradermal along the side of the vein in divided doses as needed for VAD insertion. Do NOT give if patient has a history of allergy to any local anesthetic or any luis alfredo product. Do NOT use both lidocaine intradermal/subcutaneous injection and the lidocaine cream on the same site. naloxone (NARCAN) injection 0.2 mg(Linked Group 2) 0.2 mg, Intravenous, EVERY 2 MIN PRN, opioid reversal, Starting on Wed10/20/23 at 2043, Administer intravenous route when available and notify [...] doses. naloxone (NARCAN) injection 0.2 mg(Linked Group 2) 0.2 mg, Intramuscular, EVERY 2 MIN PRN, opioid reversal, Starting on Wed10/20/23 at 2043, Administer intramuscular if an intravenous route is [...] doses. naloxone (NARCAN) injection 0.4 mg(Linked Group 2) 0.4 mg, Intravenous, EVERY 2 MIN PRN, opioid reversal, Starting on Wed10/20/23 at 2043, Administer intravenous route when available and notify [...] doses. naloxone (NARCAN) injection 0.4 mg(Linked Group 2) 0.4 mg, Intramuscular, EVERY 2 MIN PRN, opioid reversal, Starting on Wed10/20/23 at 2043, Administer intramuscular if an intravenous route is [...] have not improved after 4 naloxone doses. ondansetron (ZOFRAN ODT) ODT tab 4 mg(Linked Group 3) 4 mg, Oral, EVERY 6 HOURS PRN, nausea, vomiting, Starting on Wed10/20/23 at 2038, This is Step 1 of nausea and vomiting management. If nausea not resolved in 15 minutes, go to Step 2 prochlorperazine (COMPAZINE). Do NOT administer if patient received granisetron (KYTRIL) pre-operatively. With dry hands, peel back foil backing and gently remove tablet. Do not push oral disintegrating tablet through foil backing. Administer immediately on tongue and oral disintegrating tablet dissolves in seconds, then swallow with saliva. Liquid not required. ondansetron (ZOFRAN) injection 4 mg(Linked Group 3) 4 mg, Intravenous, EVERY 6 HOURS PRN, nausea, vomiting, Administer over 2-5 Minutes, Starting on Wed10/20/23 at 2038, Give IF patient unable to tolerate oral medication. This is Step 1 of nausea and vomiting management. If nausea not resolved in 15 minutes, go to Step 2 prochlorperazine (COMPAZINE). Do NOT administer if patient received granisetron (KYTRIL) pre-operatively. Irritant. oxyCODONE (ROXICODONE) tablet 10 mg(Linked Group 4) 10 mg, Oral, EVERY 4 HOURS PRN, severe pain, Starting on Wed10/20/23 at 2038, Hold oral PRN dose for analgesic side effects. Notify provider to assess for uncontrolled pain or analgesic side effects. Hold while on IV MANAGER BEHAVIORAL or with regular IV opioid dosing. 0435 (See Alternative - Provider: Luanne Cedillo, MEDHAT)1306 (See Alternative - Provider: Lili Kemp RN) 1234 (See Alternative - Provider: Laura Martínez RN)1649 (See Alternative - Provider: Wes Bui RN) oxyCODONE (ROXICODONE) tablet 5 mg(Linked Group 4) 5 mg, Oral, EVERY 4 HOURS PRN, moderate pain, Starting on Wed10/20/23 at 2038, Hold oral PRN dose for analgesic side effects. Notify provider to assess for uncontrolled pain or analgesic side effects. Hold while on IV MANAGER BEHAVIORAL or with regular IV opioid dosing. 0435 ($Given - Provider: Luanne Cedillo, RN)1306 ($Given - Provider: Lili Kemp, RN) 1234 ($Given - Provider: Laura Martínez, MEDHAT)1649 ($Given - Provider: Wes Bui, MEDHAT) sodium chloride (OCEAN) 0.65 % nasal spray 1 spray 1 spray, Both Nostrils, EVERY 1 HOUR PRN, congestion, Starting on Wed10/26/23 at 1024 1103 ($Given - Provider: Laura Martínez, MEDHAT) sodium chloride (PF) 0.9% PF flush 3 mL 3 mL, Intracatheter, EVERY 1 MIN PRN, line flush, other, to ensure patency or to lock dormant line, Starting on Wed10/20/23 at 2038 Linked Groups Order Group 1: HYDROmorphone (DILAUDID) injection 0.2 mgJump to med 0.2 mg, Intravenous, EVERY 2 HOURS PRN, moderate pain, Starting on Wed10/20/23 at 2038, IF patient unable to take oral pain medication or pain not controlled with oral analgesics. Hold IV PRN opioid dose for analgesic side effects. Notify provider to assess for uncontrolled pain or analgesic side effects. Or HYDROmorphone (DILAUDID) injection 0.4 mgJump to med 0.4 mg, Intravenous, EVERY 2 HOURS PRN, severe pain, Starting on Wed10/20/23 at 2038, IF patient unable to take oral pain medication or pain not controlled with oral analgesics. Hold IV PRN opioid dose for analgesic side effects. Notify provider to assess for uncontrolled pain or analgesic side effects. Group 2: naloxone (NARCAN) injection 0.2 mgJump to med 0.2 mg, Intravenous, EVERY 2 MIN PRN, opioid reversal, Starting on Wed10/20/23 at 2043, Administer intravenous route when available and notify [...] 2 MIN PRN, opioid reversal, Starting on Wed10/20/23 at 2043, Administer intravenous route when available and notify [...] 2 MIN PRN, opioid reversal, Starting on Wed10/20/23 at 2043, Administer intramuscular if an intravenous route is [...] 2 MIN PRN, opioid reversal, Starting on Wed10/20/23 at 2043, Administer intramuscular if an intravenous route is [...] not improved after 4 naloxone doses. Group 3: ondansetron (ZOFRAN ODT) ODT tab 4 mgJump to med 4 mg, Oral, EVERY 6 HOURS PRN, nausea, vomiting, Starting on Wed10/20/23 at 2038, This is Step 1 of nausea and vomiting management. If nausea not resolved in 15 minutes, go to Step 2 prochlorperazine (COMPAZINE). Do NOT administer if patient received granisetron (KYTRIL) pre-operatively. With dry hands, peel back foil backing and gently remove tablet. Do not push oral disintegrating tablet through foil backing. Administer immediately on tongue and oral disintegrating tablet dissolves in seconds, then swallow with saliva. Liquid not required. Or ondansetron (ZOFRAN) injection 4 mgJump to med 4 mg, Intravenous, EVERY 6 HOURS PRN, nausea, vomiting, Administer over 2-5 Minutes, Starting on Wed10/20/23 at 2038, Give IF patient unable to tolerate oral medication. This is Step 1 of nausea and vomiting management. If nausea not resolved in 15 minutes, go to Step 2 prochlorperazine (COMPAZINE). Do NOT administer if patient received granisetron (KYTRIL) pre-operatively. Irritant. Group 4: oxyCODONE (ROXICODONE) tablet 5 mgJump to med 5 mg, Oral, EVERY 4 HOURS PRN, moderate pain, Starting on Wed10/20/23 at 2038, Hold oral PRN dose for analgesic side effects. Notify provider to assess for uncontrolled pain or analgesic side effects. Hold while on IV MANAGER BEHAVIORAL or with regular IV opioid dosing. Or oxyCODONE (ROXICODONE) tablet 10 mgJump to med 10 mg, Oral, EVERY 4 HOURS PRN, severe pain, Starting on Wed10/20/23 at 2038, Hold oral PRN dose for analgesic side effects. Notify provider to assess for uncontrolled pain or analgesic side effects. Hold while on IV MANAGER BEHAVIORAL or with regular IV opioid dosing. documented in this encounter Care Teams Horse Trader Relationship Specialty Start Date End Date Juan Pablo Buckley MD [facility] [address] [place] [address] PCP - General Family Medicine 10/20/23 documented as of this encounter
--- OUTSIDE RECORDS SUMMARY | 2023-11-12 17:28 | XMS_ITS | Encounter Summary ---
Author Name Unknown Organization [facility] Address [address] [place] [address] Care Team Providers Care Procurement Forester Name Role Phone Juan Pablo Buckley MD Primary Care Provider Encounter Details Date Type Department Care Team (Latest Contact Info) Description 10/20/2023 Travel Social History Tobacco Use Types Packs/Day [...] on filedocumented in this encounter Care Teams Procurement Forester Relationship Specialty Start Date End Date Juan Pablo Buckley MD [facility] [address] [place] [address] PCP - General Family Medicine 10/20/23 documented as of this encounter
--- OUTSIDE RECORDS SUMMARY | 2023-11-12 17:28 | XMS_ITS | Encounter Summary ---
Author Name Unknown Organization [facility] Address [facility] [place] [address] Care Team Providers Care Smelter Charger Name Role Phone Juan Pablo Buckley MD Primary Care Provider [phone] 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] Procedures WI COLONOSCOPY W/WO BRUSH/WASH WI LAP,SURG,COLECTOMY, PARTIAL, W/ANAST WI LAP,SURG,COLECTOMY,W/REMVL TERM ILEUM WI LAP,SURG,COLECTOMY,W/END COLOST & CLOSUR WI LAP,SURG,COLECTOMY,W/ANAST WI LAP, SURG, COLECTOMY, W/ANAST, W/COLOSTOMY WI LAP,SURG,COLECTOMY,TOTAL,W/O PROCTECTOMY WI LAP,SURG,COLECTOMY,TOTAL,W/PRO CTECTOMY WI LAP,SURG,COLECT,TOT,W/PROCTECT ,W/ILEOST WI PART REMOVAL COLON W ANASTOMOSIS WI PART REMOVAL COLON W COLOSTOMY WI PART REMOVAL COLON W END COLOSTOMY WI PART REMOVAL COLON W OSTOMY/MUCOFIST WI PART REMOVAL COLON W COLOPROCTOSTOMY WI PART REMOVAL COLON W COLOPROC,COLOST WI PART REMOVAL COLON,ABD/TRANSANAL TRAVIS WI REMOVAL COLON/ILEOSTOMY ZZC REMOVAL COLON/ILEOSTOMY,CONTINENT WI REMOVAL COLON/PROCTECTOMY/ILEOSTOMY ZZC REMOVAL COLON/PROCTEC/ILEOSTOMY CONT ZZC REMOVAL COLON/PROCTEC/ ILEOANAL ANAST WI REMOVAL COLON/PROCTEC/ILEOANAL ANAST POUCH WI REMVL COLON/TERM ILEUM/ILEOCOLOSTOMY Intraoperative colonoscopy robotic sigmoid colectomy possible open, possible stoma [facility] [address] [place] [address] Referral ID Status Reason Start Date Expiration Date Visits Re quested Visits Authorized [id number] 1 1 Encounter Details Date Type Department Care Team (Late st Contact Info) Description 10/20/2023 1:30 PM CDT Anesthesia Event [facility] [address] [place] [address] Brandon Gold MD [facility] [address] [place], [place] [id number] Anesthesia Record Procedure Summary Procedure Name Responsible Anesthesiologist Anesthesia Start Time Anesthesia Stop Time Intraoperative colonoscopy (Rectum) Brandon Gold MD 10/20/23 1330 10/20/23 1807 Events Date Time Event Comment 10/20/2023 1232 GARBAGE PICK UP WORKER Ready for Procedure 1330 An Start 1333 An Start Data 1334 AN REASSESS I attest that I have identified and re-evaluated the patient immediately before the induction of anesthesia and I am satisfied that the anesthetic plan is suitable for the patient's condition and procedure. The first vital signs recorded are pre- induction. Layla Abdulalhi APRN GARBAGE PICK UP WORKER 1343 An Induction 1343 MD Present 1346 An Intubation 1346 MD Present 1350 Anesthesia Ready for Procedu re 1415 Quick Note BP monitor not recording BP. BP cord reinserted. 1430 Quick Note BP npt recordin g. Pt's arm untucked and retucked. 1437 Quick Note Pt's arm retuck ed with tape removed across arm that surgeon applied for body slippage on bed. 1455 MD Present 1542 MD Present 1542 Quick Note Converting lapa roscopic to open. 1625 MD Present 1657 MD Present 1735 MD Present 1803 AN Extubation All extubation criteria met prior to removal. 1803 an stop data 1804 MD Present 180 An Stop Electronically signed by Margarito Thapa APRN GARBAGE PICK UP WORKER on October 20, 2023 6:07 PM 1807 MD Present Meds Name Total fentaNYL 50 mcg/mL 350 mcg HYDROmorphone 1 mg/mL 1 mg lidocaine 2% 50 mg propofol 10 mg/mL 200 mg propofol drip mcg/kg/min 1,014.14 mg rocuronium 10 mg/mL 120 mg ePHEDrine 5 mg/mL in NS 10 mg dexamethasone (DECADRON) 4 mg/mL 4 mg ondansetron 2 mg/mL 4 mg sugammadex (BRIDION) 200mg/2mL 200 mg labetalol 5 mg/mL 5 mg indocyanine green 25 mg 10 mg LR 2,400 mL * Agents Name NO HELIOX O2 N2O Air Exp Sevoflurane Exp Isoflurane Exp Desflurane Exp N2O Ins Sevoflurane Ins Isoflurane Ins Desflurane O2 Auxiliary * Blood No blood administrations on file. Lines, Drains, and Airways Type Details Placement Removal Incision/Surgical Site 10/20/23; 1718; U pper; Abdomen; 3 port sites and 1 mini lap incision - glue 10/20/23 1718 by Xenia Leal RN Peripheral IV 10/20/23; 1202; 20 G ; Right, Dorsal; Lower forearm; Chlorhexidine 10/20/23 1202 by Viridiana Aguilera RN 10/27/23 1500 by Aria Harrison RN ETT Placement Date: 09/24 02/15; Placement Time: 1346 (created via procedure documentation); Mask Ventilation: 1; Induction Type: Intravenous; Ease of Intubation: Easy; Technique: Direct laryngoscopy; Tube Size: 8 mm; DL Blade Size: Mishra 3; Grade View: 1; Adjucts: Stylet; Placement Person: TIMBO; Attempts: 1 10/20/23 1346 by Layla Abdullahi APRN CRNA 10/20/23 1803 by Margarito Thapa APRN CRNA Gastric Tube 10/20/23; 1357; Decompression 10/20/23 1357 by Layla Abdullahi APRN CRNA 10/20/23 1816 by Dana Hull RN Urethral Catheter 10/20/23; 1426; No; Surgical procedure; 16 fr 10/20/23 1426 by Xenia Leal RN 10/21/23 1447 by Milli Morales RN Closed/Suction Drain 10/20/23; 1716; LLQ ; Bulb; 19 Solomon Islander 10/20/23 1716 by Xenia Leal RN 10/22/23 1114 by Blanco Vila RN documented in this encounter Social History Tobacco [...] on file documented as of this encounter OR Notes * Anesthesia Postprocedure Evaluation - Davis Mcgowan MD - 10/20/2023 6:58 PM CDT Patient: Christi uW Procedure: Procedure(s): Intraoperative colonoscopy robotic sigmoid colectomy converted to open Anesthesia Type: General Note: Disposition: Inpatient Postop Pain Control: Uneventful Sign Out: Well controlled pain PONV: No Neuro/Psych: Uneventful Sign Out: Acceptable/Baseline neuro status Airway/Respiratory: Uneventful Sign Out: Acceptable/Baseline resp. status CV/Hemodynamics: Uneventful Sign Out: Acceptable CV status; No obvious hypovolemia; No obvious fluid overload Other NRE: NONE DID A NON-ROUTINE EVENT OCCUR? No Last vitals: Vitals Value Taken Time BP 164/72 10/20/23 1855 Temp 97.1 ??F (36.2 ??C) 10/20/23 1805 Pulse 75 10/20/23 1857 Resp 11 10/20/23 1857 SpO2 93 % 10/20/23 1857 Vitals shown include unfiled device data. Electronically Signed By: Davis Mcgowan MD October 20, 2023 6:58 PM * Anesthesia Procedure Notes - Layla Abdullahi APRN CRNA - 10/20/2023 1:51 PM CDTAssociated Order(s): Airway Airway Patient location during procedure: OR Procedure Start/Stop Times: 10/20/2023 1:46 PM Staff - Anesthesiologist: Layla Abdullahi APRN GARBAGE PICK UP WORKER Performed By: GARBAGE PICK UP WORKER Consent for Airway Urgency: elective Indications and Patient Condition Indications for airway management: tam-procedural Induction type:intravenous Mask difficulty assessment: 1 - vent by mask Final Airway Details Final airway type: endotracheal airway Successful airway: ETT - single and Oral Endotracheal Airway Details ETT size (mm): 8.0 Cuffed: yes Successful intubation technique: direct laryngoscopy DL Blade Type: Mishra 3 Grade View of Cords: 1 Adjucts: stylet Position: Right Bite block used: None Post intubation assessment Placement verified by: capnometry, equal breath sounds and chest rise Number of attempts at approach: 1 Secured with: tape Ease of procedure: easy Dentition: Intact Medication(s) Administered Medication Administration Time: 10/20/2023 1:46 PM * Anesthesia Preprocedure Evaluation - Brandon Gold MD - 10/20/2023 12:26 PM CDT Anesthesia Pre-Procedure Evaluation Patient: Christi Wu : 1945 Procedure : Procedure(s): Intraoperative colonoscopy robotic sigmoid colectomy possible open, possible stoma Past Medical History: Diagnosis Date Anemia Anxiety COPD (chronic obstructive pulmonary disease) (H) Coronary artery disease 2003 s/p stent to circumflex History of diverticular abscess Hypertension Mixed hyperlipidemia Stented coronary artery Past Surgical History: Procedure Laterality Date CARDIAC SURGERY s/p CABG No Known Allergies Social History Tobacco Use Smoking status: Every Day Types: Cigarettes Smokeless tobacco: Never Substance Use Topics Alcohol use: Not Currently Wt Readings from Last 1 Encounters: 10/20/23 69.7 kg (153 lb 9.6 oz) Anesthesia Evaluation Pt has had prior anesthetic. Type: General. No history of anesthetic complications ROS/MED HX ENT/Pulmonary: (+) mild, COPD, Neurologic: - neg neurologic ROS Cardiovascular: - neg cardiovascular ROS (+) hypertension- - CAD - - - METS/Exercise Tolerance: Hematologic: - neg hematologic ROS Musculoskeletal: - neg musculoskeletal ROS GI/Hepatic: Comment: Colonic abscess Renal/Genitourinary: - neg Renal ROS Endo: - neg endo ROS Psychiatric/Substance Use: - neg psychiatric ROS Infectious Disease: - neg infectious disease ROS Malignancy: - neg malignancy ROS Other: - neg other ROS Physical Exam Airway Mallampati: I TM distance: > 3 FB Neck ROM: full Mouth opening: > 3 cm Respiratory Devices and Support Dental no notable dental history (+) Edentulous Cardiovascular cardiovascular exam normal Pulmonary pulmonary exam normal OUTSIDE LABS: CBC: Lab Results Component Value Date WBC 8.9 08/21/2023 WBC 9.5 08/20/2023 HGB 13.0 (L) 08/21/2023 HGB 12.4 (L) 08/20/2023 HCT 38.4 (L) 08/21/2023 HCT 36.5 (L) 08/20/2023 PLT 136 (L) 08/21/2023 PLT 110 (L) 08/20/2023 BMP: Lab Results Component Value Date NA 136 08/21/2023 NA 137 08/20/2023 POTASSIUM 3.3 (L) 08/21/2023 POTASSIUM 3.6 08/20/2023 CHLORIDE 100 08/21/2023 CHLORIDE 102 08/20/2023 CO2 25 08/21/2023 CO2 27 08/20/2023 BUN 6.9 (L) 08/21/2023 BUN 6.4 (L) 08/20/2023 CR 0.70 08/21/2023 CR 0.71 08/20/2023 GLC 83 10/20/2023 GLC 98 08/21/2023 COAGS: Lab Results Component Value Date INR 1.19 (H) 03/25/2023 POC: No results found for: BGM, HCG, HCGS HEPATIC: Lab Results Component Value Date ALBUMIN 3.5 08/18/2023 PROTTOTAL 6.7 08/18/2023 ALT 22 08/18/2023 AST 23 08/18/2023 ALKPHOS 86 08/18/2023 BILITOTAL 0.5 08/18/2023 OTHER: Lab Results Component Value Date LACT 1.2 07/16/2023 ALEIDA 8.8 08/21/2023 PHOS 3.1 08/21/2023 MAG 2.1 08/18/2023 Anesthesia Plan ASA Status: 3 NPO Status: NPO Appropriate Anesthesia Type: General. - Airway: ETT Induction: Intravenous, Propofol. Maintenance: Balanced. Consents Anesthesia Plan(s) and associated risks, benefits, and realistic alternatives discussed. Questions answered and patient/enrollment representative(s) expressed understanding. - Discussed: - Discussed with: Patient Postoperative Care Pain management: IV analgesics, Oral pain medications, Multi-modal analgesia. PONV prophylaxis: Ondansetron (or other 5HT-3), Dexamethasone or Solumedrol Comments: Brandon Gold MD I have reviewed the pertinent notes and labs in the chart from the past 30 days and (re)examined the patient. Any updates or changes from those notes are reflected in this note. documented in this encounter Miscellaneous Notes * Anesthesia Care Transfer Note - Margarito Thapa APRN CRNA - 10/20/2023 6:07 PM CDT Patient: Christi Wu Procedure: Procedure(s): Intraoperative colonoscopy robotic sigmoid colectomy converted to open Diagnosis: Colonic diverticular abscess [K57.20] Diagnosis Additional Information: No value filed. Anesthesia Type: General Note: Oropharynx: oral airway in place and spontaneously breathing Level of Consciousness: drowsy Oxygen Supplementation: face mask Level of Supplemental Oxygen (L/min / FiO2): 10 Independent Airway: airway patency satisfactory and stable Dentition: dentition unchanged Vital Signs Stable: post-procedure vital signs reviewed and stable Report to RN Given: handoff report given Patient transferred to: PACU Handoff Report: Identifed the Patient, Identified the Reponsible Provider, Reviewed the pertinent medical history, Discussed the surgical course, Reviewed Intra-OP anesthesia mangement and issues during anesthesia, Set expectations for post-procedure period and Allowed opportunity for questions andacknowledgement of understanding Vitals: Vitals Value Taken Time BP Temp Pulse 67 10/20/23 1807 Resp 9 10/20/23 1807 SpO2 100 % 10/20/23 1807 Vitals shown include unfiled device data. Electronically Signed By: Margarito Thapa APRN CRNA October 20, 2023 6:07 PM documented in this encounter Plan of Treatment Not on file documented as of this encounter Procedures Procedure Name Priority Date/Time Associated Diagnosis Comments ANE AIRWAY ETT PERFORMABLE Routine 10/20/2023 1:46 PM CDT documented in this encounter Results * ANE AIRWAY ETT PERFORMABLE (10/20/2023 1:46 PM CDT) Narrative Layla Abdullahi APRN CRNA - 10/20/2023 1:46 PM CDT Layla Abdullahi APRN CRNA ? 10/20/2023 ??1:52 PM Airway ? Patient location during procedure: OR ? Procedure Start/Stop Times: 10/20/2023 1:46 PM Staff - ? Anesthesiologist: ??Layla Abdullahi APRN CRNA ? Performed By: GARBAGE PICK UP WORKER Consent for Airway ? Urgency: elective Indications [...] Time: 10/20/2023 1:46 PM Brandon Gold MD [facility] documented in this encounter Visit Diagnoses Not on filedocumented in this encounter Administered Medications Inactive Administered Medications - up to 3 most recent administrations Medication Order MAR Action Action Date Dose Rate Site dexAMETHasone (DECADRON) injection Intravenous, PRN, Administer over 1 Minutes, Starting on Wed10/20/23 at 1344, Anesthesia Intra-op $Given 10/20/2023 1:44 PM CDT 4 mg ePHEDrine injection Intravenous, PRN, Starting on Wed10/20/23 at 1438, Anesthesia Intra-op $Given 10/20/2023 2:38 PM CDT 5 mg $Given 10/20/2023 2:32 PM CDT 5 mg fentaNYL (PF) (SUBLIMAZE) injection Intravenous, PRN, Administer over 3-5 Minutes, Starting on Wed10/20/23 at 1343, Anesthesia Intra-op $Given 10/20/2023 5:43 PM CDT 100 mcg $Given 10/20/2023 2:49 PM CDT 50 mcg $Given 10/20/2023 2:43 PM CDT 50 mcg HYDROmorphone (DILAUDID) injection Intravenous, PRN, Starting on Wed10/20/23 at 1554, Anesthesia Intra-op $Given 10/20/2023 5:24 PM CDT 0.5 mg $Given 10/20/2023 3:54 PM CDT 0.5 mg indocyanine green (IC-GREEN) injection Intravenous, PRN, Starting on Wed10/20/23 at 1650, Anesthesia Intra-op $Given 10/20/2023 4:50 PM CDT 10 mg labetalol (NORMODYNE/TRANDATE) syringe Intravenous, PRN, Starting on Wed10/20/23 at 1531, Anesthesia Intra-op $Given 10/20/2023 3:31 PM CDT 5 mg lactated ringers infusion Intravenous, CONTINUOUS PRN, Anesthesia Intra-op, Starting on Wed10/20/23 at 1330, Until Wed10/20/23 at 1807 $New Bag 10/20/2023 4:47 PM CDT $New Bag 10/20/2023 2:30 PM CDT $New Bag 10/20/2023 1:30 PM CDT lidocaine 2% injection (MDV) Intravenous, PRN, Starting on Wed10/20/23 at 1343, Anesthesia Intra-op $Given 10/20/2023 1:43 PM CDT 50 mg ondansetron (ZOFRAN) injection Intravenous, PRN, Administer over 2-5 Minutes, Starting on Wed10/20/23 at 1727, Anesthesia Intra-op $Given 10/20/2023 5:27 PM CDT 4 mg propofol (DIPRIVAN) infusion Intravenous, CONTINUOUS PRN, Starting on Wed10/20/23 at 1401, Anesthesia Intra-op Rate/Dose Change 10/20/2023 3:01 PM CDT 75 mcg/kg/min 31.365 mL/hr Rate/Dose Change 10/20/2023 2:55 PM CDT 50 mcg/kg/min 20.9 1 mL/hr Rate/Dose Change 10/20/2023 2:43 PM CDT 150 mcg/kg/min 62. 73 mL/hr propofol (DIPRIVAN) injection 10 mg/mL vial Intravenous, PRN, Starting on Wed10/20/23 at 1343, Anesthesia Intra-op $Given 10/20/2023 2:43 PM CDT 50 mg $Given 10/20/2023 1:43 PM CDT 150 mg rocuronium injection Intravenous, PRN, Starting on Wed10/20/23 at 1344, Anesthesia Intra-op $Given 10/20/2023 4:40 PM CDT 20 mg $Given 10/20/2023 3:13 PM CDT 40 mg $Given 10/20/2023 2:27 PM CDT 10 mg sugammadex (BRIDION) injection Intravenous, PRN, Starting on Wed10/20/23 at 1739, Anesthesia Intra-op $Given 10/20/2023 5:39 PM CDT 200 mg documented in this encounter Care Teams Smelter Charger Relationship Specialty Start Date End Date Juan Pablo Buckley MD [facility] [address] [place] [address] PCP - General Family Medicine 10/20/23 documented as of this encounter
--- OUTSIDE RECORDS SUMMARY | 2023-11-12 17:28 | XMS_ITS | Encounter Summary ---
Author Name Unknown Organization [facility]ba Address [facility] [place] [address] Care Team Providers Care Silk Screen Printer Helper Name Role Phone Sarina Mello MD Primary Care Provider [phone] Reason for Referral * Home Health Therapies & Aides (Routine: Next available opening) - Pending Review Specialty Diagnoses / Procedures Referred By Contac t Referred To Contact Diagnoses S/P colectomy Kalyn Villagomez PA-C [facility] [address] [address] Referral ID Status Reason Start Date Expiration Date V isits Requested Visits Authorized [id number] Pending Review 10/27/2023 10/26/2024 1 1 Question Answer Reason for Referral: Physical Therapy Physical Therapy Eval and Treat for: Therapeutic Exercise Is the patient homebound? Yes Homebound Status (describe the functional limitations that support this patient is confined to his/her home. Medicaid recipients are not required to be homebound.): Requires assistance of another person or specialized equipment is needed I attest that I saw or will see the patient on this date: 10/27/2023 Provider to follow patient SARINA MELLO [[id number]] Comments Your provider has ordered home health services. If you have not been contacted within 2 days of your discharge please call the selected Home Care agency listed on your Discharge document. If a Home Care agency is NOT listed, please call [phone]. 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] Procedures IN COLONOSCOPY W/WO BRUSH/WASH IN LAP,SURG,COLECTOMY, PARTIAL, W/ANAST IN LAP,SURG,COLECTOMY,W/REMVL TERM ILEUM IN LAP,SURG,COLECTOMY,W/END COLOST & CLOSUR IN LAP,SURG,COLECTOMY,W/ANAST IN LAP, SURG, COLECTOMY, W/ANAST, W/COLOSTOMY IN LAP,SURG,COLECTOMY,TOTAL,W/O PROCTECTOMY IN LAP,SURG,COLECTOMY,TOTAL,W/PRO CTECTOMY IN LAP,SURG,COLECT,TOT,W/PROCTECT ,W/ILEOST IN PART REMOVAL COLON W ANASTOMOSIS IN PART REMOVAL COLON W COLOSTOMY IN PART REMOVAL COLON W END COLOSTOMY IN PART REMOVAL COLON W OSTOMY/MUCOFIST IN PART REMOVAL COLON W COLOPROCTOSTOMY IN PART REMOVAL COLON W COLOPROC,COLOST IN PART REMOVAL COLON,ABD/TRANSANAL TRAVIS IN REMOVAL COLON/ILEOSTOMY ZZC REMOVAL COLON/ILEOSTOMY,CONTINENT IN REMOVAL COLON/PROCTECTOMY/ILEOSTOMY ZZC REMOVAL COLON/PROCTEC/ILEOSTOMY CONT ZZC REMOVAL COLON/PROCTEC/ ILEOANAL ANAST IN REMOVAL COLON/PROCTEC/ILEOANAL ANAST POUCH IN REMVL COLON/TERM ILEUM/ILEOCOLOSTOMY Intraoperative colonoscopy robotic sigmoid colectomy possible open, possible stoma [facility] [address] [place] [address] Referral ID Status Reason Start Date Expiration Date Visits Re quested Visits Authorized [id number] 1 1 Encounter Details Date Type Department Care Team (Latest Contact Info) Description 10/20/2023 10:11 AM CDT - 10/27/2023 3:38 PM CDT Hospital Encounter [place] [id number] Medical Surgical [address] [place] [id number] Tammy Montoya MD [facility] [address] [id number] S/P colectomy (Primary Dx) Discharge Disposition: Home-Health Care Svc Social History [...] Villagomez PA-C - 10/27/2023 1:28 PM CDT [facility] Summary Christi Wu Age: [age] year old Date of : 1945 Date of Admission: 10/20/2023 Date of Discharge:: 10/27/2023 Admitting Physician: Tammy Montoya MD Discharge Physician: Tammy Montoya MD PCP: Sarina Mello Disposition: Patient discharged from [facility] to home in stable condition. Primary [...] No DVT No PE No CVA No NM No Enterocutaneous fistula No Peripheral nerve injury [...] Your home care referral was sent to [facility] If you haven't heard from them within the next 24-48 hours, Please call them at [phone] documented in this encounter Medications at Time [...] yes Persons Notified of Discharge Plans: [facility] Patient/Family in Agreement with the Plan: yes Handoff Referral Completed: No Additional Information: The pt will discharge home today with resumption of [facility] PT services. Jewel updated [facility] on the pt's discharge today and faxed them the pt's discharge orders P:[phone] F: [phone]. Sw will continue to be available as needed until discharge. TATIANNA Alvarenga, DIGITAL MEDIA PRODUCER Inpatient Care Coordination [facility] [phone] * Lexie Bang, PT - 10/27/2023 1:52 PM CDT PT: Noted in chart pt with discharge orders. Stopped in pt's room to check in if he had any additional mobility concerns to address prior to discharge and pt denied concern. Has been mobilizing well with previous PT sessions and with [facility] staff. Physical Therapy Discharge Summary Reason for therapy discharge: Discharged to home. Progress towards therapy goal(s). See goals on Care Plan in [facility] electronic health record for goal details. [...] 101 10/25/2023 Lab Results Component Value Date ALEIDA 8.9 10/25/2023 Lab Results Component Value Date [...] questions/paging, please contact the CRS office at [phone]. Galen Moffett PA-C [facility] * Galen Moffett PA-C - 10/26/2023 9:58 AM CDT [...] Intake/Output Summary (Last 24 hours) at 10/26/2023 0958 Last data filed at 10/26/2023 0511 Gross [...] 101 10/25/2023 Lab Results Component Value Date ALEIDA 8.9 10/25/2023 Lab Results Component Value Date [...] needed, minimize narcotics - Encourage ambulation - [facility] for ppx Disposition: Expected discharge in 1-2 days. Barriers to discharge: Tolerating low fiber diet, pain controlled with oral meds, return of bowel function. For questions/paging, please contact the CRS office at [phone]. 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 I personally reviewed the vital signs, [...] 101 10/25/2023 Lab Results Component Value Date ALEIDA 8.9 10/25/2023 Lab Results Component Value Date [...] needed, minimize narcotics - Encourage ambulation - H for ppx For questions/paging, please contact the CRS office at [phone]. Galen Moffett PA-C [facility] CRS Staff. Seen and examined independently. Agree with above. I performed a history and physical examination of the patient and discussed their management with the physician medical records assistant. I reviewed the physician assistants note and agree with the documented findings and plan of care. Adán Mcneal MD [facility] FASCRS Colorectal Surgeon [facility] [address], [address] [place] [address] T: [phone] F: [phone] Pager: [phone] [email or web address] * Adán Mcneal MD - 10/24/2023 8:41 AM CDT Images from the original note were not included. [facility] Progress Note Assessment and Plan: 78 yo M s/p POD #4 lap converted to open sigmoid colectomy Seems to be having some bowel function Ok for full liquid diet Stop fluids Check labs in am Adán Mcneal MD FACS [facility] Colorectal Surgeon [facility] [address], [address] [place] [address] T: [phone] F: [phone] Pager: [phone] [email or web address] Interval History: Xray demonstrating some ileus yesterday. [...] -- 14.9 CR 0.84 -- -- 0.96 ALEIDA 10.0 -- -- 9.5 < > = [...] Colorectal Surgeon [facility] [address], [address] [place] [address] T: [phone] F: [phone] Pager: [phone] [email or web address] Interval History: Hypertensive overnight. Reports bloating and [...] PLT 315 10/20/2023 PLT 136 (L) 08/21/2023 BMP Recent Labs Lab Test 10/22/23 0613 10/21/23 0635 10/21/23 0622 10/20/23 1034 08/21/23 0742 NA -- -- 137 -- 136 POTASSIUM -- -- 5.3 -- 3.3* CHLORIDE -- -- 102 -- 100 CO2 -- -- 27 -- 25 ANIONGAP -- -- 8 -- 11 GLC 149* 133* 137* < > 98 BUN -- -- 14.9 -- 6.9* CR -- -- 0.96 -- 0.70 ALEIDA -- -- 9.5 -- 8.8 < > [...] 102 10/21/2023 Lab Results Component Value Date ALEIDA 9.5 10/21/2023 Lab Results Component Value Date [...] needed, minimize narcotics - Encourage ambulation - [facility] for ppx Disposition: Expected discharge in 1-2 days. Barriers to discharge: Tolerating low fiber diet, pain controlled with oral meds, return of bowel function. Clinically Significant Risk Factors # Financial/Environmental Concerns: For questions/paging, please contact the CRS office at [phone]. Kalyn Villagomez PA-C [facility] * Satish Zaldivar, RN - 10/22/2023 2:32 AM CDT Messaged provider: Pt requested that I ask the provider if there is anything he could have to help with hiccups. Pt stated it is keeping him from sleeping. * Aurea Ang, PT - 10/21/2023 2:40 PM CDT 10/21/23 [...] Evaluation Time PT Eval, Moderate Complexity Minutes (02460) 10 Physical Therapy Goals PT Frequency Daily PT Predicted Duration/Target Date for Goal Attainment 10/27/23 PT Goals Bed Mobility;Transfers;Gait PT: Bed Mobility Supine to/from sit;Rolling;Within precautions;Independent PT: Transfers Modified independent;Bed to/from chair;Sit to/from stand;Assistive device;Within precautions PT: Gait Supervision/stand-by assist;Rolling walker;150 feet Interventions Interventions Quick Adds Therapeutic Activity;Gait Training Therapeutic Activity Therapeutic Activities: dynamic activities to improve functional performance Minutes (32049) 8 Symptoms Noted During/After Treatment Increased pain;Fatigue [...] of session. Gait Training Gait Training Minutes (72099) 8 Symptoms Noted During/After Treatment (Gait Training) [...] 102 10/21/2023 Lab Results Component Value Date ALEIDA 9.5 10/21/2023 Lab Results Component Value Date [...] needed, minimize narcotics - Encourage ambulation - [facility] for ppx For questions/paging, please contact the CRS office at [phone]. Kalyn Villagomez PA-C [facility] Associated attestation - Laura Rojo MD - 10/21/2023 6:45 PM CDT Physician Attestation I saw and evaluated Christi Wu as part of a shared [employer]OWER [employer]ANT SUPERINTENDENT/PA visit. I personally reviewed the vital signs, [...] Multimodal pain control Encourage ambulation SCDs and SQH for DVT prophylaxis. Laura Rojo MD Date of Service (when I saw the patient): 10/21/23 * Ayo Hughes OTR - 10/21/2023 9:40 AM CDT 10/21/23 0835 Appointment Info Signing Clinician's Name / Credentials (OT) BAILEY Luevano/L Living Environment People in Home spouse Current Living Arrangements house ([facility]) Home Accessibility no concerns Self-Care Usual Activity [...] weakness Bed Mobility Bed Mobility supine-sit;sit-supine Supine-Sit [place] (Bed Mobility) minimum assist (75% patient effort) Sit-Supine [place] (Bed Mobility) minimum assist (75% patient effort) Transfers Transfers sit-stand transfer;toilet transfer Sit-Stand Transfer Sit-Stand [place] (Transfers) supervision Toilet Transfer [place] Level (Toilet Transfer) supervision Balance Balance Comments Benefits from FWW, history of falls. Activities of Daily Living BADL Assessment/Intervention lower body dressing;grooming Lower Body Dressing Assessment/Training [place] Level (Lower Body Dressing) contact guard assist Grooming Assessment/Training [place] Level (Grooming) supervision Clinical Impression Criteria for [...] Evaluation Time OT Eval, Low Complexity Minutes (29085) 10 OT Goals Therapy Frequency (OT) Daily [...] Management Self-Care/Home Mgmt/ADL, Compensatory, Meal Prep Minutes (41299) 8 Symptoms Noted During/After Treatment (Meal Preparation/Planning [...] at sink. Therapeutic Activities Therapeutic Activity Minutes (50045) 29 Symptoms noted during/after treatment increased pain;fatigue [...] Communication Assessment Patient's communication style: spoken language (Malagasy or Bilingual) Hearing Difficulty or Deaf: no [...] Chemical Dependency Status: Values/Beliefs: Spiritual, Cultural Beliefs, Caodaism Practices, Values that affect care: Additional Information: [...] will transport at discharge. Referral sent to [facility] for home PT. Addendum Pt accepted by [facility] for home PT. AVS updated. Mili Proctor/TATIANNA Coley LGSW Inpatient Care Coordination Emergency Room Human Resource Adviser/Float [phone] Mili Proctor LGSW documented in this encounter Miscellaneous Notes * Plan of Care - Luisa Montes OT - 10/27/2023 3:38 PM CDT Occupational Therapy Discharge Summary Reason for therapy discharge: Discharged to home with home therapy. Progress towards therapy goal(s). See goals on Care Plan in [facility] electronic health record for goal details. Patient [...] Oxygenation and Ventilation Recent Flowsheet Documentation Taken 10/27/2023 0741 by Aria Harrison RN Head of Bed (HOB) Positioning: HOB at 20-30 degrees * Plan of Care - Satish Zaldivar RN - 10/27/2023 5:52 AM CDT Goal Outcome Evaluation: For vital signs and complete assessments, please see documentation flowsheets. [id number] Pertinent assessments: Pt A&Ox4. SBA with walker [...] shift note. Outcome: Progressing Flowsheets (Taken 10/27/2023 3099) Outcome Evaluation: Pt is passing gas & [...] Manage Fall Risk Recent Flowsheet Documentation Taken 10/27/2023 0034 by Satish Zaldivar RN Safety Promotion/Fall Prevention: [...] Documentation Taken 10/27/202333 by Satish Zaldivar RN Head of Bed [...] ambulation, monitor bowel function Bedside Nurse: Wes Bui RN Goal Outcome Evaluation: Plan of Care [...] shift note. Outcome: Progressing Flowsheets (Taken 10/26/2023 0322) Outcome Evaluation: had large bm, passing lots [...] shift note. Outcome: Progressing Flowsheets (Taken 10/26/2023 8937) Outcome Evaluation: ambulating in [place], pain controlled [...] Fall Risk Recent Flowsheet Documentation Taken 10/25/2023 1700 [...] rest/sleep promoted Goal: Optimal Comfort and Wellbeing 10/25/20232303 by Wes Bui RN Outcome: Progressing [...] Infection Signs and Symptoms 10/25/20232303 by Wes Bui RN Outcome: Progressing 10/25/2023 230 by Wes Bui RN Outcome: Progressing Goal: Anesthesia/Sedation Recovery 10/25/20232303 by Wes Bui RN Outcome: Progressing [...] Symptom management, CRS following Bedside Nurse: Kacy eKmp RN Goal Outcome Evaluation: Problem: Adult Inpatient [...] by Lili Kemp, RN Outcome: Progressing Goal: Absence of Hospital-Acquired Illness or Injury 10/25/2023 1438 by Lili Kemp, RN Outcome: Progressing 10/25/2023 1348 by Lili Kemp, RN Outcome: Progressing Intervention: Identify and Manage Fall Risk Recent Flowsheet Documentation Taken 10/25/2023 0916 by Lili Kemp, MEDHAT Safety Promotion/Fall Prevention: safety round/check completed Goal: Optimal Comfort and Wellbeing 10/25/2023 1438 by Lili Kemp, RN Outcome: Progressing 10/25/2023 1348 by Lili Kemp, MEDHAT Outcome: Progressing Intervention: Monitor Pain and Promote Comfort Recent Flowsheet Documentation Taken 10/25/2023 0916 by Lili Kemp RN Pain Management Interventions: rest medication (see MAR) Goal: Readiness for Transition of Care 10/25/2023 1438 by Lili Kemp RN Outcome: Progressing 10/25/2023 1348 by Lili Kemp, MEDHAT Outcome: Progressing Problem: Surgery Nonspecified Goal: Absence of Bleeding 10/25/2023 1438 by Lili Kemp, MEDHAT Outcome: Progressing 10/25/2023 1348 by Lili Kemp, MEDHAT Outcome: Progressing Goal: Effective Bowel Elimination 10/25/2023 1438 by Lili Kemp, RN Outcome: Progressing 10/25/2023 1348 by Lili Kemp, RN Outcome: Progressing Goal: Fluid and Electrolyte Balance 10/25/2023 1438 by Lili Kemp, RN Outcome: Progressing 10/25/2023 1348 by Lili Kemp, RN Outcome: Progressing Goal: Blood Glucose Level Within Targeted Range 10/25/2023 1438 by Lili Kemp, RN Outcome: Progressing 10/25/2023 1348 by Lili Kemp, RN Outcome: Progressing Goal: Absence of Infection Signs and Symptoms 10/25/2023 1438 by Lili Kemp, RN Outcome: Progressing 10/25/2023 1348 by Lili Kemp, RN Outcome: Progressing Goal: Anesthesia/Sedation Recovery 10/25/2023 1438 by Lili Kemp RN Outcome: Progressing 10/25/2023 1348 by Lili Kemp RN Outcome: Progressing Intervention: Optimize Anesthesia Recovery Recent Flowsheet Documentation Taken 10/25/2023 0916 by Lili Kemp RN Safety Promotion/Fall Prevention: safety round/check completed Goal: Optimal Pain Control and Function 10/25/2023 1438 by Lili Kemp RN Outcome: Progressing 10/25/2023 1348 by Lili Kemp RN Outcome: Progressing Intervention: Prevent or Manage Pain Recent Flowsheet Documentation Taken 10/25/2023 0916 by Lili Kemp RN Pain Management Interventions: rest medication (see MAR) Goal: Nausea and Vomiting Relief 10/25/2023 1438 by Lili Kemp RN Outcome: [...] removed NG placed earlier, refuses reinsertion, paged Crs, Dr. Mccain called back and states OK to leave NG out at this time * Plan of Care - Blanco Vila RN - 10/23/2023 4:14 PM CDT Goal Outcome Evaluation: Plan of Care Reviewed With: patient End of Shift Summary For vital signs and complete assessments, please see documentation flowsheets. Pertinent assessments: pt A&O 4, forgetful, Ls dim, denies nausea, SOB, complained of abd pain,10// gave dilaudid 1x oxy 1x Abdominal incisions, [...] note. Outcome: Not Progressing Flowsheets (Taken 10/22/2023 7265) Outcome Evaluation: no gas yet, intermittent abdominal [...] and complete assessments, please see documentation flowsheets. [id number] Pertinent assessments: POD#2. Pt A&Ox4. On 2L NC. Afebrile.Elevated BP other VSS. C/O pain, nausea, & hiccups given prn oxy, one time order of baclofen, & zofran odt. PIV infusing LR at 75mls/hr. MARIZA drain in place with bloody output. B Major Shift Events: After taking oxy & tylenol Pt had a small emesis episode witnessed by vice president and portfolio manager. In addition Pt was found to have [...] shift note. Outcome: Not Progressing Flowsheets (Taken 10/22/2023727) Outcome Evaluation: Pt is voiding, on 2L [...] Oxygenation and Ventilation Recent Flowsheet Documentation Taken 10/22/2023 0128 by Satish Zaldivar RN Head of Bed [...] flowsheets. Pertinent assessments: pt A&Ox4, VSS. On RA. Denies nausea and SOB,complained of abd pain, [...] shift note. Outcome: Progressing Flowsheets (Taken 10/21/2023 4810) Outcome Evaluation: Velazquez removed, Capno D/C'd. Pain [...] Manage Fall Risk Recent Flowsheet Documentation Taken 10/21/2023 0518 by Milli Morales RN Safety Promotion/Fall Prevention: [...] and Promote Comfort Recent Flowsheet Documentation Taken 10/21/2023909 by Milli Morales RNhand plug shaper Interventions: medication (see MAR) Taken 10/21/2023824 by Milli Morales RNhand plug shaper Interventions: medication (see MAR) Goal: Readiness for [...] or Manage Pain Recent Flowsheet Documentation Taken 10/21/2023909 by Milli Morales RNhand plug shaper Interventions: medication (see MAR) Taken 10/21/2023824 by Milli Morales RNhand plug shaper Interventions: medication (see MAR) Goal: Nausea and [...] and complete assessments, please see documentation flowsheets. [id number] Pertinent assessments: POD#1. Pt A&Ox4. On 3L [...] Recent Flowsheet Documentation Taken 10/21/2023147 by Satish Zaldivar, RN Safety Promotion/Fall Prevention: lighting adjusted clutter free environment maintained increased rounding and observation safety round/check completed assistive device/personal items within reach nonskid shoes/slippers when out of bed room near nurse's station room organization consistent treat reversible contributory factors Intervention: Prevent Skin Injury Recent Flowsheet Documentation Taken 10/21/2023147 by Satish Zaldivar RN Body Position: position changed independently Goal: Optimal Comfort and Wellbeing 10/21/2023 07 by Satish Zaldivar RN Outcome: Not Progressing 10/21/2023 07 by Satish Zaldivar RN Outcome: Progressing Goal: Readiness for Transition of Care 10/21/2023 07 by Satish Zaldivar RN Outcome: Not Progressing 10/21/2023 07 by Satish Zaldivar RN Outcome: Progressing Problem: Surgery Nonspecified Goal: Absence of Bleeding 10/21/2023 07 by Satish Zaldivar RN Outcome: Not Progressing 10/21/2023 07 by Satish Zaldivar RN Outcome: Progressing Goal: Effective Bowel Elimination 10/21/2023 07 by Satish Zaldivar RN Outcome: Not Progressing 10/21/2023 07 by Satish Zaldivar RN Outcome: Progressing Goal: Fluid and Electrolyte Balance 10/21/2023 07 by Satish Zaldivar RN Outcome: Not Progressing 10/21/2023 07 by Satish Zaldivar RN Outcome: Progressing Goal: Blood Glucose Level Within Targeted Range 10/21/2023 07 by Satish Zaldivar RN Outcome: Not Progressing 10/21/2023 07 by Satish Zaldivar RN Outcome: Progressing Goal: Absence of Infection Signs and Symptoms 10/21/2023 07 by Satish Zaldivar RN Outcome: Not Progressing 10/21/2023 07 by Satish Zladivar RN Outcome: Progressing Goal: Anesthesia/Sedation Recovery 10/21/2023 07 by Satish Zaldivar RN Outcome: Not Progressing 10/21/2023702 by Satish Zaldivar RN Outcome: Progressing Intervention: Optimize Anesthesia Recovery Recent Flowsheet Documentation Taken 10/21/2023147 by Satish Zaldivar RN Safety Promotion/Fall Prevention: lighting adjusted clutter free environment maintained increased rounding and observation safety round/check completed assistive device/personal items within reach nonskid shoes/slippers when out of bed room near nurse's station room organization consistent treat reversible contributory factors Goal: Optimal Pain Control and Function 10/21/2023 07 by Satish Zaldivar RN Outcome: Not Progressing 10/21/2023 07 by Satish Zaldivar RN Outcome: Progressing Goal: Nausea and Vomiting Relief 10/21/2023703 by Satish Zaldivar RN Outcome: Not Progressing 10/21/2023702 by Satish Zaldivar RN Outcome: Progressing Goal: Effective Urinary Elimination 10/21/2023703 by Satish Zaldivar RN Outcome: Not Progressing 10/21/2023702 by Satish Zaldivar RN Outcome: Progressing Goal: Effective Oxygenation and Ventilation 10/21/2023703 by Satish Zaldivar RN Outcome: Not Progressing 10/21/2023702 by Satish Zaldivar RN Outcome: Progressing Intervention: Optimize Oxygenation and Ventilation Recent Flowsheet Documentation Taken 10/21/2023 014 by Satish Zaldivar RN Head of Bed [...] Documentation Taken 10/20/20232223 by Kaylin Bright RN Safety Promotion/Fall Prevention: lighting adjusted clutter [...] Jacobs MD - 10/20/2023 6:06 PM CDT [facility] Brief Operative Note Pre-operative diagnosis: Colonic diverticular [...] pneumatic leak testing Surgeon: Maddi Montoya MD Lead Cargo Mover: Kalyn Villagomez PA-C A skilled first aid director was necessary due to the technical complexity of the procedure and for the patient's safety. The medical records assistant helped me with positioning, retraction, visualization of the operative field, meticulous wound closure and moreover helped to complete the procedures in a technicallysafe and efficient manner. Second Lead Cargo Mover: Milli Jacobs MD (colorectal surgery fellow) Anesthesia: [...] gown and gloves. We placed a 19 Turkish Lit channel drain through the left most [...] * Pharmacy-Admission Medication History - Jeffery Menard RPH - 10/15/2023 2:21 PM CDT Pre-Admission Medication History Medication history and patient interview completed by pre-admitting RN or pre- op/CENTRIFUGE SEPARATOR OPERATOR. Reviewed by pharmacist, including [employer] dispense records, [facility] Care Everywhere, and chart review. Jeffery Menard, Pharm.D., [facility] Last Reviewed by Lesa Reyes RN on 10/12/2023 at 4:31 PM INSURANCE CHECKER Med List Medication Sig Last Dose acetaminophen [...] LAB - BLOOD ORDER [facility] [address] Lab (1st floor, no room number) [place] [address] * (ABNORMAL) CBC with platelets (10/25/2023 7:49 AM CDT) [facility] WBC Count 9.8 4.0 - 11.0 10e3/uL [...] LAB - BLOOD ORDERABL ES [facility] [address] Lab (1st floor, no room number) [place] [address], [facility] * Basic metabolic panel (10/25/2023 7:49 AM CDT) Sodium 140 135 - 145 mmol/L 10/25/2023 [...] - 5.3 mmol/L 10/25/2023 8:17 AM CDT LABORATORY Chloride 101 98 - 107 mmol/L 10/25/2023 8:17 AM CDT LABORATORY Carbon Dioxide (CO2) 29 22 - [...] LAB - BLOOD ORDERABL ES RH LABORATORY [facility] Care Lab [address] Lab (1st floor, no room number) [place] [address], [facility] * XR Abdomen Port 1 View (10/23/2023 4:14 PM CDT) Anatomical Region Laterality Modality Abdomen/Pelvis Digital Radiogra phy 10/23/2023 4:14 PM CDT Impressions 10/23/2023 7:05 PM CDT IMPRESSION: Enteric tube in the body the stomach. Overall bowel loops not well assessed on this study for NG tube placement. Narrative 10/23/2023 7:05 PM CDT EXAM: XR ABDOMEN PORT 1 VIEW LOCATION: [facility] DATE: 10/23/2023 INDICATION: NG tube placement COMPARISON: None. Procedure Note Venkat Martinez MD - 10/23/2023 EXAM: XR ABDOMEN PORT 1 VIEW LOCATION: [facility] DATE: 10/23/2023 INDICATION: NG tube placement COMPARISON: [...] - 29 mmol/L 10/23/2023 10:20 AM CDT RH LABORATORY Anion Gap 8 7 - 15 mmol/L 10/23/2023 10:20 AM CDT RH LABORATORY Urea Nitrogen 12.4 8.0 - 23.0 [...] MD LAB - BLOOD ORDERABL ES LABORATORY [facility] Lab [address] Lab (1st floor, no room number) [place] [address] * XR Abdomen 2 Views (10/23/2023 [...] CDT EXAM: XR ABDOMEN 2 VIEWS LOCATION: [facility] DATE: 10/23/2023 INDICATION: Evaluate for ileus. COMPARISON: CT abdomen and pelvis 08/18/2023. Procedure Note Jillian Nicole MD - 10/23/2023 EXAM: XR ABDOMEN 2 VIEWS LOCATION: [facility] DATE: 10/23/2023 INDICATION: Evaluate for ileus. COMPARISON: [...] - 53.0 % 10/23/2023 10:10 AM CDT LABORATORY MCV 92 78 - 100 fL 10/23/2023 10:10 AM CDT LABORATORY MCH 30.5 26.5 - 33.0 pg 10/23/2023 10:10 AM CDT LABORATORY MCHC 33.2 31.5 - 36.5 g/dL 10/23/2023 10:10 AM CDT LABORATORY RDW 15.4(H) 10.0 - 15.0 % 10/23/2023 10:10 AM CDT LABORATORY Platelet Count 320 150 - 450 10e3/uL 10/23/2023 10:10 AM CDT LABORATORY Blood STRUCTURE OF LEFT UPPER LIMB / Unknown Venipuncture / Unknown 10/23/2023 8:45 AM CDT 10/23/2023 8:57 AM CDT Adán Mcneal MD LAB - BLOOD ORDERABL ES LABORATORY [facility] Lab [address] Lab (1st floor, no room number) [place] [address], [facility] * Platelet count (10/23/2023 8:45 AM CDT) Platelet Count 320 150 - 450 10e3/uL 10/23/2023 9:00 AM CDT LABORATORY Blood STRUCTURE OF LEFT UPPER LIMB / Unknown Venipuncture / Unknown 10/23/2023 8:45 AM CDT 10/23/2023 8:57 AM CDT Tammy Montoya MD LAB - BLOOD ORDER CHANEL LABORATORY [facility] Care Lab [address] Lab (1st floor, no room number) [place] [address] * (ABNORMAL) Glucose by meter (10/22/2023 6:13 AM CDT) GLUCOSE BY METER POCT 149(H) 70 - 99 mg/dL 10/22/2023 6:20 AM CDT LABORATORY POC Blood, Capillary BLOOD SPECIMEN / Unknown 10/22/2023 6:13 AM CDT 10/22/2023 6:20 AM CDT Tammy ALMARAZ - BEAKER POCT Performing Organization Address City/[facility]/ZIP Co de Phone Number LABORATORY [facility] Lab [address] Lab (1st floor, no room number) [place] [address] * (ABNORMAL) Glucose by meter (10/21/2023 6:35 AM CDT) GLUCOSE BY METER POCT 133(H) 70 - 99 mg/dL 10/21/2023 6:42 AM CDT LABORATORY POC Blood, Capillary BLOOD SPECIMEN / Unknown 10/21/2023 6:35 AM CDT 10/21/2023 6:42 AM CDT Tammy ALMARAZ - BEAKER POCT LABORATORY [facility] Care Lab [address] Lab (1st floor, no room number) [place] [id number] [place] [address] * Phosphorus (10/21/2023 6:22 AM CDT) Phosphorus 2.9 2.5 - 4.5 mg/dL 10/21/2023 6:58 AM CDT RH LABORATORY Blood STRUCTURE OF RIGHT UPPER LIMB / Unknown Venipuncture / Unknown 10/21/2023 6:22 AM CDT 10/21/2023 6:31 AM CDT Tammy Montoya MD LAB - BLOOD ORDER CHANEL LABORATORY [facility] Lab [address] Lab (1st floor, no room number) [address] [place] [address] * Magnesium (10/21/2023 6:22 AM CDT) Magnesium 1.8 1.7 - 2.3 mg/dL 10/21/2023 6:58 AM CDT RH LABORATORY Blood STRUCTURE OF RIGHT UPPER LIMB / Unknown Venipuncture / Unknown 10/21/2023 6:22 AM CDT 10/21/2023 6:31 AM CDT Tammy Montoya MD LAB - BLOOD ORDER CHANEL LABORATORY [facility] Lab [address] Lab (1st floor, no room number) [address] * (ABNORMAL) CBC with platelets (10/21/2023 6:22 [...] LAB - BLOOD ORDER CHANEL RH LABORATORY [facility] Lab [address] Lab (1st floor, no room number) [place] [address] * (ABNORMAL) Basic metabolic panel (10/21/2023 6:22 AM CDT) [facility] Sodium 137 135 - 145 mmol/L 10/21/2023 7:30 AM CDT RH LABORATORY Comment:Reference intervals for this test were updated on 04/20/2023 to more accurately reflect our healthy population. There may be differences in the flagging of prior results with similar values performed with this method. Interpretation of those prior results can be made in the context of the updated reference intervals. Potassium 5.3 3.4 - 5.3 mmol/L 10/21/2023 7:30 AM CDT RH LABORATORY Chloride 102 98 - 107 mmol/L 10/21/2023 7:30 AM CDT RH LABORATORY Carbon Dioxide (CO2) 27 22 - 29 mmol/L 10/21/2023 7:30 AM CDT RH LABORATORY Anion Gap 8 7 - 15 mmol/L 10/21/2023 7:30 AM CDT RH LABORATORY Urea Nitrogen 14.9 8.0 - 23.0 mg/dL 10/21/2023 7:30 AM CDT RH LABORATORY Creatinine 0.96 0.67 - 1.17 mg/dL 10/21/2023 7:30 AM CDT RH LABORATORY GFR Estimate 80 >60 mL/min/1. 73m2 10/21/2023 7:30 AM CDT RH LABORATORY Calcium 9.5 8.8 - 10.2 mg/dL 10/21/2023 7:30 AM CDT RH LABORATORY Glucose 137(H) 70 - 99 mg/dL 10/21/2023 7:30 AM CDT RH LABORATORY Blood STRUCTURE OF RIGHT UPPER LIMB / Unknown Venipuncture / Unknown 10/21/2023 6:22 AM CDT 10/21/2023 6:31 AM CDT Tammy Montoya MD LAB - BLOOD ORDER CHANEL LABORATORY [facility] Lab [address] [employer] Lab (1st floor, no room number) [address] [place] [address] * Platelet count (10/20/2023 8:56 PM CDT) Platelet Count 315 150 - 450 10e3/uL 10/20/2023 9:10 PM CDT RH LABORATORY Blood STRUCTURE OF LEFT UPPER LIMB / Unknown Venipuncture / Unknown 10/20/2023 8:56 PM CDT 10/20/2023 9:03 PM CDT Tammy Montoya MD LAB - BLOOD ORDER CHANEL LABORATORY [facility] Lab [address] Lab (1st floor, no room number) [place] [id number] [place] [address] * Surgical Pathology Exam (10/20/2023 1:59 PM CDT) Case Report Surgical Pathology Report ? Case: [id number] ? Authorizing Provider: ??Tammy Montoya MD ?? Collected: ? 10/20/2023 01:59 PM ? Ordering Location: ? [facility] ?? Received: ?10/20/2023 02:44 PM ? [...] Colonic diverticular abscess [ICD-10-CM] 10/22/2023 2:54 PM [facility] LABORATORY Gross Description A(1). Large Intestine, Colon, [...] flowers-pink and contains a normal folding pattern. Network Specialist sections are submitted as follows: B1-proximal margin, en face B2-distal margin, en face G0-D9-osydtv diverticula and mucosa B7-additional portion of bowel mucosa (MEET Oliveira) 10/22/2023 2:54 PM [facility] LABORATORY Microscopic Description Microscopic examination was performed. 10/22/2023 2:54 PM [facility] LABORATORY Performing Labs The technical component of this testing was completed at [facility] 10/22/2023 2:54 PM [facility] LABORATORY Case Images 10/22/2023 2:54 PM T LABORATORY Polyp ASCENDING COLON STRUCTURE / Unknown 10/20/2023 1:59 PM CDT 10/20/2023 2:44 PM CDT Tissue specimen (specimen) SIGMOID COLON PART / Unknown 10/20/2023 4:32 PM CDT 10/20/2023 6:13 PM CDT Tammy ALMARAZ - KAYKAY LOPEZ [facility] Acute Care Lab [address] Lab (1st floor, no room number) [place] [address] * COLONOSCOPY (10/20/2023 1:02 PM CDT) Pathologist [facility] COLONOSCOPY [facility] Patient Name: Christi Santa Talongarth ? Procedure Date: 10/20/2023 1:02 PM ? [...] and ?oxygen saturations were monitored continuously. The ?[employer] Adult Colonoscope, Model # CF-OG229W, ?Censit[employer] # [id number] was introduced through the ?anus and advanced [...] Procedure Code(s): ? --- Professional --- ? 49419, Colonoscopy, flexible; with removal of tumor(s), polyp(s), or ? other lesion(s) by snare technique CPT copyright 2021 [employer]. All rights reserved. The codes documented in this report are preliminary and upon inpatient coder review may be revised to meet current compliance requirements. TAMMY MONTOYA MD 10/22/2023 5:35:05 PM I was physically present for the entire viewing portion of the exam. TAMMY MONTOYA MD Number of Addenda: 0 Note Initiated On: 10/20/2023 1:02 PM MRN: ?[id number] Procedure Date: ? 10/20/2023 1:02:04 PM Scope [...] - 99 mg/dL 10/20/2023 10:41 AM CDT RH LABORATORY POC Blood, Capillary BLOOD SPECIMEN / Unknown 10/20/2023 10:34 AM CDT 10/20/2023 10:41 AM CDT Tam[facility] Montoya MD [facility] Acute Care Lab [address] Lab (1st floor, no room number) [place] [address], [facility] * EKG CARDIAC - HIM SCAN (10/06/2023 12:00 AM CDT) 10/06/2023 Provider Outside ECG ORDERABLES documented in this encounter Visit Diagnoses Diagnosis Diverticulitis- Primary Diverticulitis of colon (without mention of hemorrhage) S/P colectomy Other postprocedural status documented in this encounter Admitting Diagnoses Diagnosis [...] $Given 10/26/2023 3:01 PM CDT 650 mg acetaminophen (TYLENOL) tablet 975 mg 975 mg, Oral, EVERY 8 HOURS, First dose on Wed10/20/23 at 2100, For 3 days, Administer for multimodal surgical pain management. Maximum acetaminophen dose from all sources = 75 mg/kg/day not to exceed 4 grams/day. $Given 10/23/2023 4:38 AM CDT 97 5 mg $Given 10/22/2023 1:46 PM CDT 975 mg $Given 10/22/2023 4:57 AM CDT 975 mg baclofen (LIORESAL) tablet 10 mg 10 mg, Oral, ONCE, On Wed10/22/23 at 0300, For 1 dose $Given 10/22/2023 2:57 AM CDT 10 mg benzocaine 20% (HURRICAINE/TOPEX) 20 % spray [...] $Given 10/24/2023 4:09 PM CDT 1 lozenge diazepam (VALIUM) injection 2.5 mg 2.5 mg, Intravenous, Administer over 1-4 Minutes, ONCE MAY REPEAT TIMES ONE, muscle spasms, Starting on Wed10/20/23 at 1822, For 1 day, Vesicant. This drug may cause significant respiratory depression. Monitor respiratory status and vital signs carefully for 1 hour after each dose., PACU $Given 10/20/2023 7:23 PM CDT 2.5 mg fentaNYL (PF) (SUBLIMAZE) injection 50 mcg 50 mcg, Intravenous, EVERY 5 MIN PRN, severe pain, Give fentaNYL (SUBLIMAZE) first if HYDROmorphone (DILAUDID) also ordered., Starting on Wed10/20/23 at 1822, Administer fentaNYL (SUBLIMAZE) for acute pain control. Move to HYDROmorphone (DILAUDID): - IF patient has received up to 200 mcg of fentaNYL (SUBLIMAZE), OR - IF patient has received 2 doses of fentaNYL (SUBLIMAZE) AND continues to have severe pain (pain score greater than or equal to seven (7) or is unable to participate in post op recovery due to pain. Wait 5 minutes AFTER last fentaNYL (SUBLIMAZE) dose before administering HYDROmorphone (DILADUDID). Postop Anesthesia Phase I only. Notify Provider to assess for uncontrolled pain or analgesic side effects. DO NOT revert back to fentanyl (SUBLIMAZE) after administering HYDROmorphone (DILAUDID)., PACU $Given 10/20/2023 6:38 PM CDT 50 mcg $Given 10/20/2023 6:27 PM CDT 50 mcg heparin ANTICOAGULANT injection 5,000 Units 5,000 Units, Subcutaneous, PRE-OP/PRE-PROCEDURE, Starting on Wed10/20/23 at 1102, For 1 dose, IF Nerve Block is planned, DELAY SubQ Heparin administration until AFTER Block is placed. IMPORTANT: IF Patient ONLY receiving a TAP Block, Nursing does NOT need to verify order with Anesthesia, and can proceed with medication administration. High concentration heparin. Not for line flush or cath care., Pre-procedure $Given 10/20/2023 11:53 AM CDT 5,000 Units Left Upper Outer Quadrant heparin ANTICOAGULANT injection 5,000 Units 5,000 Units, [...] (APRESOLINE) injection 10 mg 10 mg, Intravenous, ONCE, Administer over 1 Minutes, On 10/23/23 at 0530, For 1 dose $Given 10/23/2023 5:30 AM C DT 10 mg hydrALAZINE (APRESOLINE) injection 10 mg 10 mg, Intravenous, EVERY 6 HOURS PRN, SBP > 180, hold if HR > 100, Administer over 1 Minutes, Starting on 10/24/23 at 1723 HYDROmorphone (DILAUDID) injection 0.2 mg 0.2 mg, Intravenous, EVERY 5 MIN PRN, moderate pain, Starting on Wed10/20/23 at 1822, Use FentaNYL (SUBLIMAZE) first if ordered. Maximum total cumulative dose NOT to exceed 2 mg. DO NOT revert back to fentanyl (SUBLIMAZE) after administering HYDROmorphone (DILAUDID). Notify Provider to assess for uncontrolled pain or analgesic side effects., PACU $Given 10/20/2023 8:01 PM CDT 0.2 mg $Given 10/20/2023 7:41 PM CDT 0.2 mg HYDROmorphone (DILAUDID) injection 0.2 mg 0.2 mg, [...] injection 0.4 mg 0.4 mg, Intravenous, EVERY 5 MIN PRN, severe pain, Starting on Wed10/20/23 at 182, Use FentaNYL (SUBLIMAZE) first if ordered. Maximum total cumulative dose NOT to exceed 2 mg. DO NOT revert back to fentanyl (SUBLIMAZE) after administering HYDROmorphone (DILAUDID). Notify Provider to assess for uncontrolled pain or analgesic side effects., PACU $Given 10/20/2023 6:56 PM CDT 0.4 mg $Given 10/20/2023 6:42 PM CDT 0.4 mg HYDROmorphone (DILAUDID) injection 0.4 mg 0.4 [...] $Given 10/22/2023 10:30 PM CDT 0.4 mg labetalol (NORMODYNE/TRANDATE) injection 10 mg 10 mg, Intravenous, EVERY 10 MIN PRN, other, for Systolic Blood Pressure greater than 160 mmHg or Diastolic Blood Pressure greater than 94, IF Heart Rate greater than 50 bpm., Starting on Wed10/20/23 at 1822, For 1 day, For PACU USE ONLY. Maximum cumulative dose 100 mg. PROTECT FROM LIGHT., PACU $Given 10/20/2023 7:33 PM CDT 10 mg $Given 10/20/2023 6:49 PM CDT 10 mg lactated ringers infusion at 10 mL/hr, Intravenous, CONTINUOUS, IF patient NOT on dialysis., Pre-procedure, Starting on Wed10/20/23 at 1130, Until Wed10/20/23 at 1805 $New Bag 10/20/2023 1:23 PM CDT 10 mL /hr lactated ringers infusion at 50 mL/hr, Intravenous, CONTINUOUS, Change to saline lock when well tolerated., Starting on Wed10/20/23 at 2100, Until Wed10/24/23 at 0843 Rate/Dose Verify 10/24/2023 1:27 AM CDT 5 0 mL/hr $New Bag 10/23/2023 6:33 PM CDT 50 mL/hr Rate/Dose Verify 10/23/2023 8:06 AM CDT 50 mL/h r Lidocaine (LIDOCARE) 4 % Patch 2 patch 2 patch, Transdermal, EVERY 24 HOURS 2000, Administer over 12 Hours, First dose on [...] $Given 10/24/2023 9:22 PM CDT 20 mg metroNIDAZOLE (FLAGYL) infusion 500 mg Routine, 500 mg, Intravenous, PRE-OP/PRE-PROCEDURE, Starting on Wed10/20/23 at 1102, For 1 dose, Do not refrigerate., Indications: Perioperative Pharmacoprophylaxis, Pre-procedure $New Bag 10/20/2023 1:22 PM CDT 500 mg naloxone (NARCAN) injection 0.2 mg 0.2 [...] with saliva. Liquid not required. $Given 10/22/2023 5:05 AM CDT 4 mg ondansetron (ZOFRAN) injection [...] analgesic side effects. Hold while on IV EVENT PRODUCER or with regular IV opioid dosing. $Given [...] analgesic side effects. Hold while on IV EVENT PRODUCER or with regular IV opioid dosing. $Given [...] $Given 10/26/2023 4:38 PM CDT 3 mLs vancomycin (VANCOCIN) 1,000 mg in 200 mL dextrose intermittent infusion Routine, 1,000 mg, Intravenous, PRE-OP/PRE-PROCEDURE, Starting on Wed10/20/23 at 1148, For 1 dose, Possible Vesicant. Infuse doses less than 1,250 mg over 1 hour. Infuse doses between 1,250 mg and less than 1,750 mg over 90 minutes. Infuse doses 1,750 mg and above over 2 hours., Indications: Perioperative Pharmacoprophylaxis, Pre-procedure $New Bag 10/20/2023 12:10 PM CDT 1,000 mg 200 mL/hr vancomycin (VANCOCIN) capsule 125 mg Routine, 125 mg, Oral, 2 TIMES DAILY, First dose on Wed10/20/23 at 2100, Indications: Perioperative Pharmacoprophylaxis $Given 10/21/2023 8:22 PM CDT 125 mg $Given 10/21/2023 8:26 AM CDT 125 mg $Given 10/20/2023 9:03 PM CDT 125 mg documented in this encounter Active [...] Lili Kemp RN)1751 ($Given - Provider: Wes Bui RN) 0029 ($Given - Provider: Luanne Cedillo RN)0758 ($Given - Provider: Latesha Finn)1638 ($Given - Provider: Wes Bui, MEDHAT) 0039 ($Given - Provider: Satish Zaldivar RN)0848 [...] abdomen) 0759 (Patch/Med Removed - Provider: Latesha Finn)2124 (Not Given - Provider: Wes Bui RN - Reason: Patient/family refused) lisinopril (ZESTRIL) tablet 20 mg 20 mg, Oral, AT BEDTIME, First dose on Wed10/21/23 at 2200 2131 ($Given - Provider: Wes Bui RN) 2124 ($Given - Provider: Wes Bui RN) simvastatin (ZOCOR) tablet 20 mg 20 mg, Oral, AT BEDTIME, First dose on Bree 10/21/23 at 2200 2131 ($Given - Provider: Wes Bui RN) 2124 ($Given - Provider: Wes Bui RN) sodium chloride (PF) 0.9% PF flush [...] Satish Zaldivar RN)0848 ($Given - Provider: Aria Harrison RN)1600 (Canceled [...] Kemp RN) 1501 ($Given - Provider: Laura Martínez, MEDHAT) 1430 ($Given - Provider: Aria Harrison, RN)1431 ($Given - Provider: Aria Harrison, RN) benzocaine 20% (HURRICAINE/TOPEX) 20 % spray 0.5-1 mL 0.5-1 mL (1-2 spray), Mouth/Throat, EVERY 3 HOURS PRN, sore throat, Starting on 10/24/23 at 1541 1050 ($Given - Provider: Lili Kemp RN) 1234 ($Given - Provider: Laura Martínez, MEDHAT) benzocaine-menthol (CHLORASEPTIC) 6-10 MG lozenge 1 lozenge 1 lozenge, Buccal, EVERY 1 HOUR PRN, sore throat, Starting on 10/24/23 at 1541 diazepam (VALIUM) injection 2.5 mg 2.5 mg, Intravenous, Administer over 1-4 Minutes, EVERY 6 HOURS PRN, anxiety, muscle spasms, Starting on Wed10/20/23 at 203, Vesicant. This drug may cause significant respiratory [...] analgesic side effects. Hold while on IV EVENT PRODUCER or with regular IV opioid dosing. 0435 (See Alternative - Provider: Luanne Cedillo RN)1306 (See Alternative - Provider: Lili Kemp RN) 1234 (See Alternative - Provider: Laura Martínez RN)1649 (See Alternative - Provider: Wes Bui, MEDHAT) oxyCODONE (ROXICODONE) tablet 5 mg(Linked Group 4) 5 mg, Oral, EVERY 4 HOURS PRN, moderate pain, Starting on Wed10/20/23 at 2038, Hold oral PRN dose for analgesic side effects. Notify provider to assess for uncontrolled pain or analgesic side effects. Hold while on IV EVENT PRODUCER or with regular IV opioid dosing. 0435 ($Given - Provider: Luanne Cedillo RN)1306 ($Given - Provider: Lili Kemp RN) 1234 ($Given - Provider: Laura Martínez, [...] analgesic side effects. Hold while on IV EVENT PRODUCER or with regular IV opioid dosing. Or oxyCODONE (ROXICODONE) tablet 10 mgJump to med 10 mg, Oral, EVERY 4 HOURS PRN, severe pain, Starting on Wed10/20/23 at 2038, Hold oral PRN dose for analgesic side effects. Notify provider to assess for uncontrolled pain or analgesic side effects. Hold while on IV EVENT PRODUCER or with regular IV opioid dosing. documented in this encounter Care Teams Silk Screen Printer Helper Relationship Specialty Start Date End Date Sarina Mello MD [facility] [id number] [place] [address] PCP - General Family Medicine 10/20/23 documented as of this encounter
--- OUTSIDE RECORDS SUMMARY | 2023-11-12 17:28 | XMS_ITS | Referral Summary ---
Author Name Unknown Organization [facility] Address [address] [place] [address]. [place] [address] Care Team Providers Care Concrete Mixer Operator Name Role Phone Juan Pablo Buckley MD Primary Care Provider [phone] Encounters Date Type Department Care Team Description 10/20/2023 10:11 AM CDT - 10/27/2023 3:38 PM CDT Hospital Encounter [place] [address] Medical Surgical [address] [address] Tammy Montoya MD S/P colectomy (Primary Dx) Discharge Disposition: [place]-Health Care [facility] 10/20/2023 1:30 PM CDT Anesthesia Event [facility] [address] [place] [address] Brandon Gold MD 10/20/2023 Travel 10/20/2023 12:50 PM CDT - 10/20/2023 6:30 PM CDT Surgery [facility] [address] [address] Tammy Montoya MD Intraoperative colonoscopy 10/12/2023 Travel 08/18/2023 9:47 PM PROSTHETIC TECHNICIAN - 08/21/2023 1:51 PM PROSTHETIC TECHNICIAN Hospital Encounter [facility] General Surgery [address] [phone] Luisa Mendoza MD Schneider, Jun Zapata MD Clostridioides difficile infection (Primary Dx); Pancolitis (H); Intra-abdominal abscess (H); C. difficile colitis Discharge Disposition: Home-Health Care [facility] 08/20/2023 Hospital Encounter [facility] [address] [place] [phone] Mauricio Padilla MD Colonic diverticular abscess 08/18/2023 Travel 08/18/2023 Orders Only [facility] [address] [place] [phone] Tammy Montoya MD C. difficile diarrhea (Primary Dx) 08/17/2023 Orders Only [facility] [address] [place] [phone] Tammy Montoya MD from Last 3 Months Allergies No known [...] 10/20/2023 10:43 AM CDT Plan of Treatment Not on file Procedures [...] PLATELETS & DIFFERENTIAL Routine 08/21/2023 7:42 AM PROSTHETIC TECHNICIAN CBC WITH PLATELETS AND DIFFERENTIAL Routine 08/21/2023 7:42 AM PROSTHETIC TECHNICIAN BASIC METABOLIC PANEL Routine 08/21/2023 7:42 AM PROSTHETIC TECHNICIAN PHOSPHORUS Routine 08/21/2023 7:42 AM PROSTHETIC TECHNICIAN POTASSIUM Timed 08/20/2023 10:02 PM PROSTHETIC TECHNICIAN CBC WITH PLATELETS & DIFFERENTIAL Routine 08/20/2023 7:00 AM PROSTHETIC TECHNICIAN CBC WITH PLATELETS AND DIFFERENTIAL Routine 08/20/2023 7:00 AM PROSTHETIC TECHNICIAN PHOSPHORUS Routine 08/20/2023 7:00 AM PROSTHETIC TECHNICIAN BASIC METABOLIC PANEL Routine 08/20/2023 7:00 AM PROSTHETIC TECHNICIAN PHOSPHORUS Routine 08/19/2023 3:45 PM PROSTHETIC TECHNICIAN ROUTINE UA WITH MICROSCOPIC REFLEX TO CULTURE Routine 08/19/2023 2:55 AM PROSTHETIC TECHNICIAN C. DIFFICILE ANTIGEN AND TOXINS A/B BY ENZYME IMMUNOASSAY STAT 08/18/2023 11:41 PM PROSTHETIC TECHNICIAN C. DIFFICILE TOXIN B PCR WITH REFLEX TO C. DIFFICILE ANTIGEN AND TOXINS A/B EIA STAT 08/18/2023 11:[address] ABDOMEN PELVIS W/O & W CONTRAST STAT 08/18/2023 8:56 PM PROSTHETIC TECHNICIAN CBC WITH PLATELETS & DIFFERENTIAL STAT 08/18/2023 7:11 PM PROSTHETIC TECHNICIAN CBC WITH PLATELETS AND DIFFERENTIAL STAT 08/18/2023 7:11 PM PROSTHETIC TECHNICIAN COMPREHENSIVE METABOLIC PANEL STAT 08/18/2023 7:11 PM PROSTHETIC TECHNICIAN MAGNESIUM STAT 08/18/2023 7:11 PM PROSTHETIC TECHNICIAN from Last 3 Months Results * Platelet count (10/26/2023 6:08 AM CDT) Only the most recent of3 resultswithin the time period is included. [facility] Platelet Count 345 150 - 450 10e3/uL 10/26/2023 6:20 AM CDT LABORATORY Blood STRUCTURE OF RIGHT UPPER LIMB / Unknown Venipuncture / Unknown 10/26/2023 6:08 AM CDT 10/26/2023 6:17 AM CDT Tammy Montoya MD LAB - BLOOD ORDER CHANEL LABORATORY [facility] Lab [address] [facility] Lab (1st floor, no room number) [place] [address], [facility] * Basic metabolic panel (10/25/2023 7:49 AM CDT) Only the most recent of5 resultswithin the time period is included. Pathologist [facility] Sodium 140 135 - 145 mmol/L 10/25/2023 8:17 AM CDT LABORATORY Comment:Reference intervals for this [...] MD LAB - BLOOD ORDERABL ES LABORATORY [facility] Lab [address] Lab (1st floor, no room number) [place] [address] * (ABNORMAL) CBC with platelets (10/25/2023 7:49 [...] MD LAB - BLOOD ORDERABL ES LABORATORY [facility] Lab [address] Lab (1st floor, no room number) [place] [address] * XR Abdomen Port 1 View (10/23/2023 4:14 PM CDT) Anatomical Region Laterality Modality Abdomen/Pelvis Digital Radiogra phy 10/23/2023 4:14 PM CDT Impressions 10/23/2023 7:05 PM CDT IMPRESSION: Enteric tube in the body the stomach. Overall bowel loops not well assessed on this study for NG tube placement. Narrative 10/23/2023 7:05 PM CDT EXAM: XR ABDOMEN PORT 1 VIEW LOCATION: [facility] DATE: 10/23/2023 INDICATION: NG tube placement COMPARISON: None. Procedure Note Venkat Martinez MD - 10/23/2023 EXAM: XR ABDOMEN PORT 1 VIEW LOCATION: [facility] DATE: 10/23/2023 INDICATION: NG tube placement [...] CDT EXAM: XR ABDOMEN 2 VIEWS LOCATION: [facility] DATE: 10/23/2023 INDICATION: Evaluate for ileus. COMPARISON: CT abdomen and pelvis 08/18/2023. Procedure Note Jillian Nicole MD - 10/23/2023 EXAM: XR ABDOMEN 2 VIEWS LOCATION: [facility] DATE: 10/23/2023 INDICATION: Evaluate for ileus. [...] AM CDT 10/22/2023 6:20 AM CDT Tammy MCCRACKEN POCT LABORATORY [facility] [address] Lab (1st floor, no room number) [place] [phone] [place] [address] * Phosphorus (10/21/2023 6:22 AM CDT) Only the most recent of4 resultswithin the time period is included. Phosphorus 2.9 2.5 - 4.5 mg/dL 10/21/2023 6:58 AM CDT [facility] LABORATORY Blood STRUCTURE OF RIGHT UPPER LIMB / Unknown Venipuncture / Unknown 10/21/2023 6:22 AM CDT 10/21/2023 6:31 AM CDT Tammy Montoya MD LAB - BLOOD ORDER CHANEL Performing Organization Address [facility]/ZIP Co de Phone Number [facility] Lab [address] Lab (1st floor, no room number) [place] [phone] [place] [address] * Magnesium (10/21/2023 6:22 AM CDT) Only the most recent of2 resultswithin the time period is included. Magnesium 1.8 1.7 - 2.3 mg/dL 10/21/2023 6:58 AM CDT [facility] Blood STRUCTURE OF RIGHT UPPER LIMB / Unknown Venipuncture / Unknown 10/21/2023 6:22 AM CDT 10/21/2023 6:31 AM CDT Tammy Montoya MD LAB - BLOOD ORDER CHANEL Performing Organization Address City/[facility]/ZIP Co de Phone Number [facility] Acute [facility] Lab [address] Lab (1st floor, no room number) [place] [phone] [place] [address] * Surgical Pathology Exam (10/20/2023 1:59 PM CDT) Case Report Surgical Pathology Report ? Case: [id number] ? Authorizing Provider: ??Tammy Montoya MD ?? Collected: ? 10/20/2023 01:59 PM ? Ordering Location: ? [facility] ?? Received: ?10/20/2023 02:44 PM [...] Colonic diverticular abscess [ICD-10-CM] 10/22/2023 2:[address] [facility]AT[facility] Gross Description A(1). Large Intestine, Colon, [...] thickness averages 0.3 cm. The mucosa is flwoers-pink and contains a normal folding pattern. There are multiple uncomplicated diverticula throughout the specimen. A definitive mass is not grossly identified. Also received in the same container is a 3.1 cm in length by 2.5 cm in diameter portion of additional bowel. No mass is grossly identified within the additional portion of bowel the mucosa is flowers-pink and contains a normal folding pattern. Patrol Supervisor sections are submitted as follows: B1-proximal margin, en face B2-distal margin, en face D3-O0-mpsqxj diverticula and mucosa B7-additional portion of bowel mucosa (MEET Oliveira) 10/22/2023 2:[address] [facility] Microscopic Description Microscopic examination was performed. 10/22/2023 2:[address] [facility] Performing Labs The technical component of this testing was completed at [facility] Laboratory 10/22/2023 2:[address] [facility] Case Images 10/22/2023 2:54 PM T LABORATORY Polyp ASCENDING COLON STRUCTURE / Unknown 10/20/2023 1:59 PM CDT 10/20/2023 2:44 PM CDT Tissue specimen (specimen) SIGMOID COLON PART / Unknown 10/20/2023 4:32 PM CDT 10/20/2023 6:13 PM CDT Tammy Montoya MD LAB - KAYK[facility] Acute [facility] Lab [address] [facility] Lab (1st floor, no room number) [place] [address] * ANE AIRWAY ETT PERFORMABLE (10/20/2023 1:46 PM CDT) Narrative Layla Abdullahi APRN CRNA - 10/20/2023 1:46 PM CDT Layla Abdullahi APRN CRNA ? 10/20/2023 ??1:52 PM Airway ? Patient location during procedure: OR ? Procedure Start/Stop Times: 10/20/2023 1:46 PM Staff - ? Anesthesiologist: ??Layla Abdullahi APRN CRNA ? Performed By: LOFT WORKER PILE DRIVING Consent for Airway ? Urgency: elective Indications [...] Time: 10/20/2023 1:46 PM Brandon Gold MD [place] ANESTHESIA * COLONOSCOPY (10/20/2023 1:02 PM CDT) Pathologist [facility] COLONOSCOPY [facility] Patient Name: Theodore Wu ? Procedure Date: 10/20/2023 1:02 PM [...] continuously. The ?Olympus Adult Colonoscope, Model # CF-FX967C, ?[facility] # [id number] was introduced through the ?anus and advanced [...] Procedure Code(s): ? --- Professional --- ? 70719, Colonoscopy, flexible; with removal of tumor(s), polyp(s), or ? other lesion(s) by snare technique CPT copyright 2021 [employer]. All rights reserved. The codes documented in this report are preliminary and upon marketing secretary review may be revised to meet current compliance requirements. TAMMY MONTOYA MD 10/22/2023 5:35:05 PM I was physically present for the entire viewing portion of the exam. TAMMY MONTOYA MD Number of Addenda: 0 Note Initiated On: 10/20/2023 1:02 PM MRN: ?[id number] Procedure Date: ? 10/20/2023 1:02:04 PM Scope [...] with platelets and differential (08/21/2023 7:42 AM PROSTHETIC TECHNICIAN) Only the most recent of3 resultswithin the time period is included. WBC Count 8.9 4.0 - 11.0 10e3/uL 08/21/2023 7:56 AM PROSTHETIC TECHNICIAN LABORATORY RBC Count 4.30(L) 4.40 - 5.90 10e6/uL 08/21/2023 7:56 AM PROSTHETIC TECHNICIAN LABORATORY Hemoglobin 13.0(L) 13.3 - 17.7 g/dL 08/21/2023 7:56 AM [facility] Hematocrit 38.4(L) 40.0 - 53.0 % 08/21/2023 7:56 AM [facility] MCV 89 78 - 100 fL 08/21/2023 7:56 AM [facility] MCH 30.2 26.5 - 33.0 pg 08/21/2023 7:56 AM [facility] MCHC 33.9 31.5 - 36.5 g/dL 08/21/2023 7:56 AM [facility] RDW 13.8 10.0 - 15.0 % 08/21/2023 7:56 AM [facility] Platelet Count 136(L) 150 - 450 10e3/uL 08/21/2023 7:56 AM [facility] % Neutrophils 67 % 08/21/2023 7:56 AM [facility] % Lymphocytes 22 % 08/21/2023 7:56 AM [facility] % Monocytes 9 % 08/21/2023 7:56 AM [facility] % Eosinophils 1 % 08/21/2023 7:56 AM [facility] % Basophils 0 % 08/21/2023 7:56 AM [facility] % Immature Granulocytes 1 % 08/21/2023 7:56 AM [facility] NRBCs per 100 WBC 0 <1 /100 024 7:56 AM [facility] Absolute Neutrophils 6.0 1.6 - 8.3 10e3/uL 08/21/2023 7:56 AM [facility] Absolute Lymphocytes 2.0 0.8 - 5.3 10e3/uL 08/21/2023 7:56 AM [facility] Absolute Monocytes 0.8 0.0 - 1.3 10e3/uL 08/21/2023 7:56 AM [facility] Absolute Eosinophils 0.1 0.0 - 0.7 10e3/uL 08/21/2023 7:56 AM [facility] Absolute Basophils 0.0 0.0 - 0.2 10e3/uL 08/21/2023 7:56 AM [facility] Absolute Immature Granulocytes 0.1 <=0.4 10e3/uL 08/21/2023 7:56 AM [facility] Absolute NRBCs 0.0 10e3/uL 08/21/2023 7:56 AM [facility] Blood BLOOD SPECIMEN / Unknown Venipuncture / Unknown 08/21/2023 7:42 AM PROSTHETIC TECHNICIAN 08/21/2023 7:48 AM PROSTHETIC TECHNICIAN Chris Marie MD LAB - BLOOD ORDERAB LES LABORATORY [facility] Lab [address] 1[address] floor, [address] [place] [address], [facility] [phone] * Potassium (08/20/2023 10:02 PM PROSTHETIC TECHNICIAN) Potassium 3.6 3.4 - 5.3 mmol/L 08/20/2023 10:20 PM [facility] Blood STRUCTURE OF LEFT UPPER LIMB / Unknown Venipuncture / Unknown 08/20/2023 10:02 PM PROSTHETIC TECHNICIAN 08/20/2023 10:07 PM PROSTHETIC TECHNICIAN Jun Leone MD LAB - BLOOD OR DERABLES LABORATORY [facility] Lab [address] 1[address] floor, [address] [place] [address], [facility] [phone] * (ABNORMAL) UA with Microscopic reflex to Culture (08/19/2023 2:55 AM PROSTHETIC TECHNICIAN) Color Urine Light Yellow Colorless, Straw, Light Yellow, Yellow 08/19/2023 3:13 AM [facility] Appearance Urine Clear Clear 08/19/19 3:13 AM [facility] Glucose Urine Negative Negative mg/dL 08/19/2023 3:13 AM [facility] Bilirubin Urine Negative Negative 3:13 AM [facility] Ketones Urine 10(A) Negative mg/dL 08/19/2023 3:13 AM [facility] Specific [place] Urine 1.015 1.003 - 1.035 STEPHEN 08/19/2023 3:13 AM [facility] Blood Urine Negative Negative 08/19/2023 3:13 AM [facility] pH Urine 5.5 5.0 - 7.0 08/19/2023 3:13 AM PROSTHETIC TECHNICIAN LABORATORY Protein Albumin Urine Negative Negative mg/dL 08/19/2023 3:13 AM PROSTHETIC TECHNICIAN LABORATORY Urobilinogen Urine Normal Normal, 2.0 mg/dL 08/19/2023 3:13 AM PROSTHETIC TECHNICIAN LABORATORY Nitrite Urine Negative Negative 08/19/2023 3:13 AM PROSTHETIC TECHNICIAN LABORATORY Leukocyte Esterase Urine Negative Negative 08/19/2023 3:13 AM PROSTHETIC TECHNICIAN LABORATORY Mucus Urine Present(A) None Seen /LPF 08/19/2023 3:13 AM PROSTHETIC TECHNICIAN LABORATORY RBC Urine 1 <=2 /HPF 08/19/2023 3:13 AM PROSTHETIC TECHNICIAN LABORATORY WBC Urine 1 <=5 /HPF 08/19/2023 3:13 AM PROSTHETIC TECHNICIAN LABORATORY Urine URINE SPECIMEN OBTAINED BY CLEAN CATCH PROCEDURE / Unknown Non-blood Collection / Unknown 08/19/2023 2:55 AM PROSTHETIC TECHNICIAN 08/19/2023 3:05 AM PROSTHETIC TECHNICIAN Narrative LABORATORY - 08/19/2023 3:13 AM PROSTHETIC TECHNICIAN Urine Culture not indicated Jun Leone MD LAB - URINE OR DERABLES LABORATORY [facility] Lab [address] 1[address] floor, [address] [place] [address], [facility] [phone] * (ABNORMAL) C. difficile Antigen and Toxins A/B by Enzyme Immunoassay (08/18/2023 11:41 PM PROSTHETIC TECHNICIAN) C. difficile GDH Antigen Positive(A ) Negative STEPHEN 08/19/2023 6:00 AM PROSTHETIC TECHNICIAN [facility] C. difficile Toxin Positive(A ) Negative STEPHEN 08/19/2023 6:00 AM PROSTHETIC TECHNICIAN [facility] Stool RECTAL CONTENTS / Unknown Non-blood Collection / Unknown 08/18/2023 11:41 PM PROSTHETIC TECHNICIAN 08/18/2023 11:51 PM PROSTHETIC TECHNICIAN Narrative [facility] - 08/19/2023 6:00 AM PROSTHETIC TECHNICIAN C. difficile GDH antigen and C. difficile toxin were detected by enzyme immunoassay. Results must be interpreted based on clinical findings and are supportive of C. difficile infection. Luisa Mendoza MD LAB - MICRO GENERAL ORDERABLES Performing Organization Address City/[facility]/ZIP Co de Phone Number [facility] Inf. Diseases Diag. Lab [address] [facility], [address] [place] [address], [facility] [phone] * (ABNORMAL) C. difficile Toxin B PCR with reflex to C. difficile Antigen and Toxins A/B EIA (08/18/2023 11:41 PM PROSTHETIC TECHNICIAN) C Difficile Toxin B by PCR Positive( A) Negative 08/19/2023 5:02 AM PROSTHETIC TECHNICIAN [facility] Comment: Detection of C. [...] Non-blood Collection / Unknown 08/18/2023 11:41 PM PROSTHETIC TECHNICIAN 08/18/2023 11:51 PM PROSTHETIC TECHNICIAN Narrative [facility] - 08/19/2023 5:02 AM PROSTHETIC TECHNICIAN The Cepheid Xpert C. difficile Assay, performed on the [employer], is a qualitative in vitro [...] - MICRO GENERAL ORDERABLES [facility] Inf. Diseases Diag. Lab [address] [facility], [address] [place] [address], [facility] [phone] * CT Abdomen Pelvis w/o & w Contrast (08/18/2023 8:56 PM PROSTHETIC TECHNICIAN) Anatomical Region Laterality Modality Abdomen/Pelvis, SUBRAD CT SISSY DY, UMP CT ABDOMEN PELVIS, RAD CT Computed Tomography 08/18/2023 8:56 PM PROSTHETIC TECHNICIAN Impressions 08/18/2023 9:14 PM PROSTHETIC TECHNICIAN IMPRESSION: 1. ??Pancolitis, likely infectious or inflammatory. [...] Correlate with urinalysis. Narrative 08/18/2023 9:14 PM PROSTHETIC TECHNICIAN EXAM: CT ABDOMEN PELVIS W/O and W CONTRAST LOCATION: [facility] DATE: 08/18/2023 INDICATION: Diarrhea. Concern for [...] ABDOMEN PELVIS W/O and W CONTRAST LOCATION: [facility] DATE: 08/18/2023 INDICATION: Diarrhea. Concern for [...] cystitis. Correlate with urinalysis. Luisa Mendoza MD [facility] CT ORDERABLES * Comprehensive metabolic panel (08/18/2023 7:11 PM PROSTHETIC TECHNICIAN) Sodium 140 135 - 145 mmol/L 08/18/2023 8:14 PM [facility] Comment:Reference intervals for this test were updated on 04/20/2023 to more accurately reflect our healthy population. There may be differences in the flagging of prior results with similar values performed with this method. Interpretation of those prior results can be made in the context of the updated reference intervals. Potassium 3.8 3.4 - 5.3 mmol/L 08/18/2023 8:14 PM [facility] Carbon Dioxide (CO2) 25 22 - 29 mmol/L 08/18/2023 8:14 PM [facility] Anion Gap 11 7 - 15 mmol/L 08/18/2023 8:14 PM [facility] Urea Nitrogen 16.8 8.0 - 23.0 mg/dL 08/18/2023 8:14 PM [facility] Creatinine 0.80 0.67 - 1.17 mg/dL 08/18/2023 8:14 PM [facility] GFR Estimate 90 >60 mL/min/1. 73m2 08/18/2023 8:14 PM [facility] Calcium 9.0 8.8 - 10.2 mg/dL 08/18/2023 8:14 PM [facility] Chloride 104 98 - 107 mmol/L 08/18/2023 8:14 PM [facility] Glucose 82 70 - 99 mg/dL 08/18/2023 8:14 PM [facility] Alkaline Phosphatase 86 40 - 150 U/L 08/18/2023 8:14 PM [facility] Comment:Reference intervals for this test were updated on 06/08/2023 to more accurately reflect our healthy population. There may be differences in the flagging of prior results with similar values performed with this method. Interpretation of those prior results can be made in the context of the updated reference intervals. AST 23 0 - 45 U/L 08/18/2023 8:14 PM [facility] Comment:Reference intervals for this test were updated on 01/04/2023 to more accurately reflect our healthy population. There may be differences in the flagging of prior results with similar values performed with this method. Interpretation of those prior results can be made in the context of the updated reference intervals. ALT 22 0 - 70 U/L 08/18/2023 8:14 PM [facility] Comment:Reference intervals for this test were updated on 01/04/2023 to more accurately reflect our healthy population. There may be differences in the flagging of prior results with similar values performed with this method. Interpretation of those prior results can be made in the context of the updated reference intervals. Protein Total 6.7 6.4 - 8.3 g/dL 08/18/2023 8:14 PM [facility] Albumin 3.5 3.5 - 5.2 g/dL 08/18/2023 8:14 PM PROSTHETIC TECHNICIAN LABORATORY Bilirubin Total 0.5 <=1.2 mg/dL 08/18/2023 8:14 PM [facility] Blood BLOOD SPECIMEN / Unknown Venipuncture / Unknown 08/18/2023 7:11 PM PROSTHETIC TECHNICIAN 08/18/2023 7:42 PM PROSTHETIC TECHNICIAN Luisa Mendoza MD LAB - BLOOD ORDERABL ES LABORATORY [facility] Lab [address] 1[address] floor, [address] [place] [address], [facility] [phone] from Last 3 Months Advance Directives For more information, please contact: [phone] * Full Code (Latest Code Status on [...] Discussion with patie nt/ legal decision maker Care Teams Concrete Mixer Operator Relationship Specialty Start Date End Date Juan Pablo Buckley MD [facility] [address] [place] [address] PCP - General Family Medicine 10/20/23
--- OUTSIDE RECORDS SUMMARY | 2023-11-12 17:28 | XMS_ITS | Encounter Summary ---
Author Name Unknown Organization [facility] Address [address] [place] [address] Care Team Providers Care Auto Design Checker Name Role Phone No Ref-Primary, Physician Primary Care Provider Encounter Details Date Type Department Care Team (Latest Contact Info) Description 10/12/2023 Travel Social History Tobacco Use Types Packs/Day [...] on filedocumented in this encounter Care Teams Auto Design Checker Relationship Specialty Start Date End Date No Ref-Primary, Physician PCP - General 03/25/23 10/19/23 documented as of this encounter
--- OUTSIDE RECORDS SUMMARY | 2023-11-12 17:29 | XMS_ITS | Encounter Summary ---
Author Name Unknown Organization [facility] Address [address] [facility] [place] [address] Care Team Providers Care Structural Metal Fabricator Apprentice Name Role Phone No Ref-Primary, Physician Primary Care Provider Reason for Referral * Home Health Therapies & Aides (Routine: Next available opening) - Pending Review Specialty Diagnoses / Procedures Referred By Contac t Referred To Contact Diagnoses Clostridioides difficile infection Liberty Morrow MD [address] [place] [address] Referral ID Status Reason Start Date Expiration Date V isits Requested Visits Authorized [id number] Pending Review 08/21/2023 08/20/2024 1 1 Question Answer Reason for Referral: Shelter, Physical Therapy Physical Therapy Eval and Treat for: Therapeutic Exercise Shelter Eval and Treat for: Disease management Additional [...] Provider to follow patient NO REF-PRIMARY, PHYSICIAN [[id number]] Comments Your provider has ordered home health services. If you have not been contacted within 2 days of your discharge please call the selected Home Care agency listed on your Discharge document. If a Home Care agency is NOT listed, please call [phone]. RITIES TRADER Reason for Visit * Reason Comments Wound Infection * Auth/Cert (Routine) Specialty Diagnoses / Procedures Referred By Contac t Referred To Contact Med Surg Diagnoses Pancolitis (H) Intra-abdominal abscess (H) C. difficile colitis Pancolitis (H) Intra-abdominal abscess (H) C. difficile colitis Gen Surg [address] [place] [address] Referral ID Status Reason Start Date Expiration Date Visits Re quested Visits Authorized [id number] 1 1 Encounter Details Date Type Department Care Team (Late st Contact Info) Description 08/18/2023 9:47 PM SECURITIES TRADER - 08/21/2023 1:51 PM SECURITIES TRADER Hospital Encounter [facility] Surgery [address] [facility] [place] [address] Luisa Mendoza MD [facility] [address] [place] [address] Jun Leone MD [address] [facility] [place] [id number] Clostridioides difficile infection (Primary Dx); Pancolitis (H); [...] Comments Blood Pressure 184/94 08/21/2023 11:03 AM SECURITIES TRADER Pulse 74 08/21/2023 11:03 AM SECURITIES TRADER Temperature 36.7 ??C (98 ??F) 08/21/2023 11:03 AM SECURITIES TRADER Respiratory Rate 18 08/21/2023 11:03 AM SECURITIES TRADER Oxygen Saturation 95% 08/21/2023 11:03 AM SECURITIES TRADER Inhaled Oxygen Concentration - - Weight 73 kg (161 lb) 08/18/2023 7:03 PM SECURITIES TRADER Height 170.2 cm (5' 7) 08/18/2023 7:03 PM SECURITIES TRADER Body Mass Index 25.22 08/18/2023 7:03 PM SECURITIES TRADER documented in this encounter Discharge Summaries * Liberty Morrow MD - 08/21/2023 11:35 AM CST Images from the original note were not included. [facility] Hospitalist Discharge Summary Date of Admission: 08/18/2023 Date of Discharge: 08/21/2023 Discharging Provider: Liberty Morrow MD Discharge Service: Hospitalist Service Discharge Diagnoses See difficile associated pancolitis/diarrhea Mild infectious encephalopathy, due to above, resolved history of diverticulitis with colonic absence CAD, S/P stent to circumflex 2003 Hypertension Hyperlipidemia COPD Tobacco use disorder Generalized [...] (infectious disease MD) via virtual visit. Call [phone] for appointment. Follow up with Dr. Barba [...] clear. Severe malnutrition Appreciate input from the dietitian/site supervisor Ensure Enlive @ 10 am and 2 [...] minutes discharging this patient. Liberty Morrow MD [address] [address] Physical Exam Vital Signs: Temp: 98 ??F (36.7 ??C) Temp src: Oral BP: (!) 184/94 Pulse: 74 Resp: 18 SpO2: 95 % [id number]: None (Room air) Weight: 161 lbs 0 [...] (infectious disease MD) via virtual visit. Call [phone] for appointment. Follow up with Dr. Barba as instructed by her. Activity Your activity upon discharge: activity as tolerated Diet Follow this diet upon discharge: Orders Placed This Encounter Snacks/Supplements Adult: Ensure Enlive; Between Meals Regular Diet Adult Significant Results and Procedures Most Recent 3 CBC's: Recent Labs Lab Test 08/21/23 0742 08/20/23 0708/18/231910 WBC 8.9 9.5 17.1* HGB 13.0* 12.4* 12.8* MCV 89 90 91 PLT 136* 110* 117* Most Recent 3 BMP's: Recent Labs Lab Test 08/21/23 0742 08/20/23220108/20/2369908/18/231910 NA 136 -- 137 140 POTASSIUM 3.3* 3.6 3.1* 3.8 CHLORIDE 100 -- 102 104 CO2 25 -- 27 25 BUN 6.9* -- 6.4* 16.8 CR 0.70 -- 0.71 0.80 ANIONGAP 11 -- 8 11 ALEIDA 8.8 -- 8.5* 9.0 GLC 98 -- 88 82 7-Day Micro Results Collected Updated Procedure Result Status 08/18/2023234008/19/2023 0502 C. difficile Toxin B PCR with reflex to C. difficile Antigen and Toxins A/B EIA [[id number]] (Abnormal) Stool from Per Rectum Final result [...] Antigen and Toxins A/B by Enzyme Immunoassay [[id number]] (Abnormal) Stool from Per Rectum Final result Component Value C. difficile GDH Antigen Positive C. difficile Toxin Positive , Results for orders placed or performed during the hospital encounter of 08/18/23 CT Abdomen Pelvis w/o & w Contrast Narrative EXAM: CT ABDOMEN PELVIS W/O and W CONTRAST LOCATION: [facility] DATE: 08/18/2023 INDICATION: Diarrhea. Concern for [...] Reason for Stopping: Allergies No Known Allergies RITIES TRADER documented in this encounter Discharge Instructions * Discharge Instructions* Ivette Huffman LSW - 08/20/2023 3:20 PM SECURITIES TRADER Images from the original note were not included. Some additional resources: Web: https://RightAnswers.org/ Help At Your Door is a nonprofit serving seniors and individuals with disabilities across [place]. Our grocery assistance, home support and transportation services provide help with in-home tasks and chores. Meals on Wheels [facility] call Web: https://SignStorey/services/ If your family would like extra support, here is one great resource: Caregiver Assurance call 082-465-YKQA(0180) Customer service hours: Wednesday - Wednesday, 9 a.m. - 7 p.m. Other resources: https://ehpvq-ah-oqdpykInfoflow/get-meals/ Meals on Wheels Getting started with Meals on Wheels is easy. Either give us a call at [phone] or complete your order right here! Meals [employer] Wheels- [phone], or [employer]- [phone] [place] [address] RITIES TRADER documented in this encounter Medications at Time [...] minutes as needed for chest pain 08/05/2022 simvastatin (ZOCOR) 20 MG tablet Take 20 mg by mouth At Bedtime fidaxomicin (DIFICID) 200 MG tabletIndications:Cl ostridioides difficile Take 1 tablet (200 mg) by mouth 2 times daily for 9 days 18 tablet 08/20/2023 08/29/2023 Ascorbic Acid (VITAMIN C) 500 MG CAPS Take 500 mg by mouth every other day 10/12/2023 aspirin (ASA) 325 MG EC tablet Take 325 mg by mouth daily 10/12/2023 cholecalciferol (VITAMIN D3) 125 mcg (5000 units) capsule Take 125 mcg by mouth daily 10/12/2023 ibuprofen (ADVIL/MOTRIN) 200 MG tablet Take 600-800 mg by mouth every 6 hours as needed for pain 10/12/2023 nicotine (NICODERM CQ) 21 MG/24HR [address] 1 patch onto the skin daily as needed for smoking cessation 10/12/2023 traMADol (ULTRAM) 50 MG tablet TAKE ONE OR TWO TABLETS BY MOUTH EVERY SIX HOURS NEEDED FOR PAIN* 10/12/2023 documented as of this encounter Progress Notes [...] home with Home RN, PT, OT through [facility]. Please reconsult care management if new discharge needs arise. 1140 discharge orders faxed via [employer] to [facility]. Cyber Defense Forensics Analyst called intake to alert them of discharge today. Keri Peralta RN [facility] , [employer] or [phone] RITIES TRADER * Rakesh Ross, PT - 08/20/2023 12:01 PM CST 08/20/23 1053 Appointment Info Signing Clinician's Name / Credentials (PT) Rakesh Ross PT, DPT Living Environment People in Home spouse Current Living Arrangements house (one level [facility]) Home Accessibility stairs to enter home [...] Evaluation Time PT Eval, Low Complexity Minutes (06073) 8 Physical Therapy Goals PT Frequency Daily [...] dynamic activities to improve functional performance Minutes (29485) 18 Symptoms Noted During/After Treatment Fatigue Treatment [...] within reach. Gait Training Gait Training Minutes (28939) 14 Symptoms Noted During/After Treatment (Gait Training) [...] (sum of timed and untimed services) 40 RITIES TRADER * Chris Marie MD - 08/20/2023 11:28 AM CST [facility] Hospitalist Progress Note Brief Summary: This is [...] depression Severe malnutrition Appreciate input from the dietitian/site supervisor Ensure Enlive @ 10 am and 2 pm Hypokalemia Will start him on replacement protocol. Thrombocytopenia Mild, likely secondary to acute infection at this time. Will continue monitor DVT Prophylaxis: Pneumatic Compression Devices Code Status: Full Code Disposition: Expected discharge tomorrow if remains stable. Chris Marie MD, MD Text Page (7am [...] previous visit (from the past 24 hour(s)). RITIES TRADER * Sybil Steinberg MD - 08/20/2023 10:19 AM CST [facility] Infectious Disease Progress Note Date of Service (when I saw the patient): 08/20/2023 Assessment & Plan Theodore Wu is a 78 year old who was admitted on 08/18/2023. 78 yo with PMH of hypertension, CAD s/p CABG, current smoker c/b COPD Long standing history of intra-abdominal abscess incidentally found [facility] a [facility]. [facility] was noted that this abscess would not amenable to IR drainage due to location. He signed out AGAINST MEDICAL ADVICE at that time. He also has history of chronic low back pain with finding of lumbar stenosis and has been seen by neurosurgery. He was admitted to [facility] from 03/27 - 03/30/23 with acute [...] ID in 2 weeks ( lives in [place] ) call soonerif issues Discussed plan with [...] data reviewed. Recent Labs Lab Test 08/20/23 0700 08/18/23 1911 07/19/23 0613 WBC 9.5 17.1* 7.4 HGB 12.4* 12.8* 11.1* HCT 36.5* 38.2* 33.9* MCV 90 91 91 PLT 110* 117* 256 Recent Labs Lab Test 08/20/23 0700 08/18/23191007/19/23 0613 CR 0.71 0.80 0.69 No lab [...] found for this or any previous visit. RITIES TRADER * Ivette Huffman LSW - 08/20/2023 10:14 AM CST Care Management [...] pay costs discussed: Not applicable Additional Information: Cyber Defense Forensics Analyst approached by patients family and friends to discuss patient discharge plan. Cynthia, patients spouse, Shelby a family friend [phone]. And Bruce, patiens brother. Family reported ever since patients C - diff diagnosis he has been very depressed hardly able to walk, falling a lot and generally feeling hopeless and he was unable to get the surgery he needs andis feeling overwhelmed about possibly being in pain for several more months. Family was asking for assistance with possible TCU placement or home care. Cyber Defense Forensics Analyst assured family that we could assist with discharge planning and would wait to see assessments from PT and OT. Cyber Defense Forensics Analyst also explained that patient is his own decision maker and typewriter mechanic would not be able to talk patient into doing something he did not agree to do. (Family keeps mentioning patient is stubborn, grumpy and mean) Shelby and Bruce had concerns about the way patient treats his spouse, no indication of abuse, just that Cynthia is tired and overwhelmed. Cyber Defense Forensics Analyst provided Cynthia with resources and encouraged her to call the senior linkage line and connect with her PCP for assistance. Cyber Defense Forensics Analyst asking doctor for a psych consult for patient and will do a consult for discharge planning. LISS Arevalo RITIES TRADER * Carlyn Barba MD - 08/20/2023 9:17 [...] 08/20/2023 0744 Gross per 24 hour Intake 2020 ml Output 2100 ml Net -80 ml [...] questions/paging, please contact the CRS office at [phone]. Galen Moffett PA-C [facility] Colon and Rectal Surgery Staff I performed a history and physical examination of the patient and discussed their management with the physician special education educational assistant. I reviewed the physician assistants note [...] FACS, FASCRS [facility] [address] [place] [address] T: [phone] F: [phone] RITIES TRADER * Brandi Matthews RN - 08/19/2023 4:21 [...] to perineum & coccyx. Enteric precautions maintained. RITIES TRADER * Chris Marie MD - 08/19/2023 1:00 PM CST [facility] Hospitalist Progress Note Brief Summary: This is [...] Intracatheter Q8H Data Recent Labs Lab 08/18/23 191 WBC 17.1* HGB 12.8* MCV 91 PLT 117* NA 140 POTASSIUM 3.8 CHLORIDE 104 CO2 25 BUN 16.8 CR 0.80 ANIONGAP 11 ALEIDA 9.0 GLC 82 ALBUMIN 3.5 PROTTOTAL 6.7 BILITOTAL 0.5 ALKPHOS 86 ALT 22 AST 23 Recent Results (from the past 24 hour(s)) CT Abdomen Pelvis w/o & w Contrast Narrative EXAM: CT ABDOMEN PELVIS W/O and W CONTRAST LOCATION: [facility] DATE: 08/18/2023 INDICATION: Diarrhea. Concern for [...] abscess. 4. Possible cystitis. Correlate with urinalysis. RITIES TRADER * Clarice Castellano - 08/19/2023 9:40 AM [...] use disorder, Lumbar stenosis, Glaucoma Admitted to [facility] for Acute sigmoid diverticulitis with associated pelvic abscesses 03/27-11/2022 Recent admission to [facility] for C.diff 07/15- Admitted for: Pancolitis 08/27 [...] Weight: 73 kg (08/18) Estimated Energy Needs: 5488-6478 kcal (25-30 Kcal/Kg) Justification: maintenance Estimated Protein [...] Practice Guidelines Clarice Castellano RD, LD Pager: [phone] RITIES TRADER * Aurea New RN - 08/18/2023 11:28 PM CST RECEIVING UNIT ED HANDOFF REVIEW ED Nurse Handoff Report was reviewed by: Aurea New, MEDHAT on August 18, 2023 at 11:28 PM RITIES TRADER documented in this encounter H&P Notes * Jun Leone MD - 08/19/2023 1:48 AM CST [facility] History and Physical - Hospitalist Service [...] Date: 08/20/2023 Jun Leone MD Hospitalist Service [facility] Securely message with Xention (more info) Text page via [facility] Paging/Directory Chief Complaint diarrhea History is obtained [...] He denies any blood in his stool. Titusoes state his stools are very frequent and [...] ABDOMEN PELVIS W/O and W CONTRAST LOCATION: [facility] DATE: 08/18/2023 INDICATION: Diarrhea. Concern for [...] abscess. 4. Possible cystitis. Correlate with urinalysis. RITIES TRADER documented in this encounter Consult Notes * Ivette Huffman LSW - 08/20/2023 12:41 PM CSTAssociated Order(s): CARE [...] Communication Assessment Patient's communication style: spoken language (Djiboutian or Bilingual) Hearing Difficulty or Deaf: no [...] No Current Concerns Values/Beliefs: Spiritual, Cultural Beliefs, Denominational Practices, Values that affect care: Additional Information: [...] C. difficile. He was treated with vancomycin. Cyber Defense Forensics Analyst met with patient at bedside and introduced self and role. Patient reports using a cane and walker at baseline and independent with ADLs. Patient is interested in home care nursing, PT and OT and wants referrals sent. Cyber Defense Forensics Analyst sending through [facility]. Patient wanted referrals for energy assistance and also for senior linkage line and meals on wheels, resources were added to patients discharge paper work. Patient also mentioned being connected with support for anxiety when prompted and admittingthat he has had a had tie adjusting to diagnosis. LISS Arevalo RITIES TRADER * Laine Blevins MD - 08/20/2023 11:33 [...] Ketones Urine 10 (A) Negative mg/dL Specific [place] Urine 1.015 1.003 - 1.035 Blood Urine [...] range Speech: clear, coherent Language: Fluent in congolese Psychomotor Behavior: no evidence of tardive dyskinesia, [...] Blevins MD Consult/Liaison Psychiatry and Addiction Medicine [facility] RITIES TRADER * Sybil Steinberg MD - 08/19/2023 9:53 AM CSTAssociated Order(s): INFECTIOUS DISEASES IP CONSULT [facility] Infectious Disease Consultation Date of Admission: 08/18/2023 Date of Consult (When I saw the patient): 08/19/23 Assessment & Plan Theodore Wu is a 78 year old who was admitted on 08/18/2023. Impression: 78 yo with PMH of hypertension, CAD s/p CABG, current smoker c/b COPD Long standing history of intra-abdominal abscess incidentally found [facility] a [facility]. [facility] and it was noted that this abscess would not amenable to IR drainage due to location. He signed out AGAINST MEDICAL ADVICE at that time. He also has history of chronic low back pain with finding of lumbar stenosis and has been seen by neurosurgery. He was admitted to [facility] from 03/27 - 03/30/23 with acute [...] Immunization History Administered Date(s) Administered COVID-19 12+ () (MODERNA) 05/07/2023 COVID-19 Bivalent 12+ (Pfizer) 04/20/2022 [...] found for this or any previous visit. RITIES TRADER * Carlyn Barba MD - 08/19/2023 8:40 AM CSTAssociated Order(s): COLORECTAL SURGERY IP CONSULT [facility] Colon and Rectal Surgery Consult Note Name: Theodore Wu Date of : 1945 Age: [age] year old Date of admission: 08/18/2023 Primary care provider: No Ref-Primary, Physician Requesting Physician: Dr. Leone Reason for consult: Recurrent C. difficile colitis History of Present Illness: Theodore Wu is a 78 year old male, [...] Intake/Output Summary (Last 24 hours) at 08/19/2023 1782 Last data filed at 08/19/2023 0625 Gross [...] ABDOMEN PELVIS W/O and W CONTRAST LOCATION: [facility] DATE: 08/18/2023 INDICATION: Diarrhea. Concern for [...] Barba MD [facility] RITIES TRADER documented in this encounter ED Notes * Neema Wheatley RN - 08/18/2023 11:03 PM CST [facility] ED Nurse Handoff Report ED Chief complaint: [...] Current: Stand with Assist Patient's Preferred language: Djiboutian Pay Agent Needed?: No Isolation: contact Infection: Not Applicable C-Diff Pending Patient tested for COVID 19 prior to admission: NO Bariatric?: No Vital Signs: Vitals: 08/18/23 1903 08/18/23 2203 08/18/238 BP: 136/59 (P) 139/64 139/64 Pulse: 80 [...] behavior was Green. ED NURSE PHONE NUMBER: [phone] RITIES TRADER * Abdirizak Michael RN - 08/18/2023 9:47 PM CST Bed: ED09 Expected date: Expected time: Means of arrival: Comments: Triage RITIES TRADER * Terra Alejandro RN - 08/18/2023 7:03 PM CST Pt was told by PCP to come to the hospital for a colon abscess. Triage Assessment (Adult) Row Name 08/18/23 2654 Triage Assessment Airway WDL WDL Respiratory WDL Respiratory WDL WDL Skin Circulation/Temperature WDL Skin Circulation/Temperature WDL WDL Cardiac WDL Cardiac WDL WDL Peripheral/Neurovascular WDL Peripheral Neurovascular WDL WDL Cognitive/Neuro/Behavioral WDL Cognitive/Neuro/Behavioral WDL WDL RITIES TRADER * Luisa Mendoza MD - 08/18/2023 6:41 [...] with bilateral ureteric catheter and surgery at [facility] in [address] Barba is his [...] Management or Tests: ED Course as of 08/19/23 0242 WedAug 18, 2023 190 Initial evaluation 2140 I spoke with Colorectal [...] care of Dr. Leone. Impression & Plan [facility] Diagnoses: None Medical Decision Making: Theodore Wu [...] observations and the provider's statements to me. IVidya, am serving as a scribe at 7:28 PM on 08/18/2023 to document services personally performed by Luisa Mendoza MD based on my observations and the provider's statements to me. 08/18/2023 Luisa Mendoza MD Cho, Amy C, MD 08/19/23 0243 RITIES TRADER documented in this encounter Miscellaneous Notes * Plan of Care - Aurea Donis PT - 08/21/2023 1:51 PM CST Physical Therapy Discharge Summary Reason for therapy discharge: Discharged to home with home therapy. Progress towards therapy goal(s). See goals on Care Plan in [facility] electronic health record for goal details. Goals [...] Recommendation above provided by last treating therapist. RITIES TRADER * Plan of Care - Agustín Prince [...] medications returned to patient. All questions answered. RITIES TRADER * Plan of Care - Anu Munoz RN - 08/21/2023 6:56 AM CST Goal Outcome Evaluation: Patient is A&O X4, VSS on RA. Denies pain. On enteric isolation. PIV intact, flushed, SL with intermittent antibiotics. No BM this shift. On regular diet. Up with SBA to the bathroom. Voiding using urinal. Continue with plan of care. RITIES TRADER * Plan of Care - Carmenza Thompson RN - 08/20/2023 9:57 PM CST Pt up with SBA. Denies pain. 1 stool on this shift, on abx. Potassium replaced, needed lab recollect. Await discharge plan RITIES TRADER * Plan of Care - Agustín Prince RN - 08/20/2023 6:24 PM CST Shift: 08/20/23 6323-1636 Surgery/POD#: Cdiff colitis, pelvic abscess Orientation: A&O x4 Pain: Denies during shift Vitals/Tele: VSS on RA ex HTN IV Access/drains: PIV SL Diet: Regular Mobility: SBA GI/: Continent, urinal at bedside. BM x1 Wound/Skin: Blanchable redness to perineum & coccyx. Consults: ID/Colorectal Discharge Plan: Pending improvement RITIES TRADER * Plan of Care - Anna Tucker RN - 08/20/2023 1:49 PM CST Here for CDIFF. A&O x4, forgetful. VSS on RA. Up w/ SBA. Denied pain. Voiding in bathroom. Had multiple loose stools today. Encouraging PO fluids. Alarms on. Plan for possible discharge home tomorrow. RITIES TRADER * Plan of Care - Anu Munoz RN - 08/20/2023 6:30 AM CST Goal Outcome Evaluation: Patient is A&O X4, VSS on RA. Denies pain. On enteric isolation. PIV intact, infusing Ns at 100mL/hr with intermittent antibiotics and flagyl. BM X1 this shift, soft/formed. On regular diet. Up with SBA to the bathroom. Voiding using urinal. Continue with plan of care. RITIES TRADER * Plan of Care - Luba Olivo RN - 08/19/2023 11:06 PM CST Goal Outcome Evaluation: Shift: 7116-8384 08/19/2023 Surgery/POD#: Cdiff colitis, pelvic abscess Orientation: AO x4 Pain: Received PO Tylenol x1 for a headache Vitals/Tele: VSS RA IV Access/drains: PIV infusing NS at 100 mL/hr Diet: Regular Mobility: SBA GI/: Continent, urinal at Bedside; No BM this shift Wound/Skin: Blanchable redness to perineum & coccyx. Consults: ID/Colorectal Discharge Plan: TBD See Flow sheets for assessment RITIES TRADER * Plan of Care - Elizabeth Moran RN - 08/19/2023 6:01 PM CST Neuro: A&O x4 Tele/cardiac: N/A Respiration: on RA Activity: SBA Pain: ultram given for back and neck pain Drips: IVF Drains/tubes: none Skin: blanchable redness to coccyx GI/: incontinent at times, stool starting to form has had 4 BM today Aggression color: green Isolation:enteric precautions RITIES TRADER * Pharmacy-Admission Medication History - Syeda Hubbard, [facility] - 08/19/2023 10:09 AM CST Pharmacist Admission Medication History Admission medication history is complete. The information provided in this note is only as accurateas the sources available at the time of the update. Information Source(s): Patient and CareEverywhere/SureScripts via in-person Pertinent Information: Pt hasn't taken aspirin for a while since he's been dealing with medical issues. Changes made to NITRATING ACID MIXER medication list: Added: probiotic, ibuprofen Deleted: None Changed: Vit D Allergies reviewed with patient and updates made in EHR: done by metal handler History Completed By: Syeda Hubbard [facility] 08/19/2023 10:10 AM NITRATING ACID MIXER Med List Medication Sig Last Dose acetaminophen [...] EVERY SIX HOURS NEEDED FOR PAIN*at prn RITIES TRADER * Plan of Care - Aurea New [...] to perineum & coccyx. Enteric precautions maintained. RITIES TRADER documented in this encounter Plan of Treatment Scheduled Referrals Name Type Priority Associated Diagnoses Orde r Schedule Home Care Referral Referral Routine: Next available opening Clostridioides difficile infection Ordered: 08/21/2023 documented as of this encounter Procedures Procedure Name Priority Date/Time Associated Diagnosis Comments CBC WITH PLATELETS AND DIFFERENTIAL Routine 08/21/2023 7:42 AM SECURITIES TRADER CBC WITH PLATELETS & DIFFERENTIAL Routine 08/21/2023 7:42 AM SECURITIES TRADER PHOSPHORUS Routine 08/21/2023 7:42 AM SECURITIES TRADER BASIC METABOLIC PANEL Routine 08/21/2023 7:42 AM SECURITIES TRADER POTASSIUM Timed 08/20/2023 10:02 PM SECURITIES TRADER CBC WITH PLATELETS AND DIFFERENTIAL Routine 08/20/2023 7:00 AM SECURITIES TRADER CBC WITH PLATELETS & DIFFERENTIAL Routine 08/20/2023 7:00 AM SECURITIES TRADER PHOSPHORUS Routine 08/20/2023 7:00 AM SECURITIES TRADER BASIC METABOLIC PANEL Routine 08/20/2023 7:00 AM SECURITIES TRADER PHOSPHORUS Routine 08/19/2023 3:45 PM SECURITIES TRADER ROUTINE UA WITH MICROSCOPIC REFLEX TO CULTURE Routine 08/19/2023 2:55 AM SECURITIES TRADER C. DIFFICILE ANTIGEN AND TOXINS A/B BY ENZYME IMMUNOASSAY STAT 08/18/2023 11:41 PM SECURITIES TRADER C. DIFFICILE TOXIN B PCR WITH REFLEX TO C. DIFFICILE ANTIGEN AND TOXINS A/B EIA STAT 08/18/2023 11:[address] ABDOMEN PELVIS W/O & W CONTRAST STAT 08/18/2023 8:56 PM SECURITIES TRADER CBC WITH PLATELETS AND DIFFERENTIAL STAT 08/18/2023 7:11 PM SECURITIES TRADER CBC WITH PLATELETS & DIFFERENTIAL STAT 08/18/2023 7:11 PM SECURITIES TRADER MAGNESIUM STAT 08/18/2023 7:11 PM SECURITIES TRADER COMPREHENSIVE METABOLIC PANEL STAT 08/18/2023 7:11 PM SECURITIES TRADER documented in this encounter Results * (ABNORMAL) CBC with platelets and differential (08/21/2023 7:42 AM SECURITIES TRADER) [facility] WBC Count 8.9 4.0 - 11.0 10e3/uL 08/21/2023 7:56 AM SECURITIES TRADER LABORATORY RBC Count 4.30(L) 4.40 - 5.90 10e6/uL 08/21/2023 7:56 AM SECURITIES TRADER LABORATORY Hemoglobin 13.0(L) 13.3 - 17.7 g/dL 08/21/2023 7:56 AM SECURITIES TRADER LABORATORY Hematocrit 38.4(L) 40.0 - 53.0 % 08/21/2023 7:56 AM SECURITIES TRADER LABORATORY MCV 89 78 - 100 fL 08/21/2023 7:56 AM [facility] MCH 30.2 26.5 - 33.0 pg 08/21/2023 7:56 AM [facility] MCHC 33.9 31.5 - 36.5 g/dL 08/21/2023 7:56 AM [facility] RDW 13.8 10.0 - 15.0 % 08/21/2023 7:56 AM [facility] Platelet Count 136(L) 150 - 450 10e3/uL 08/21/2023 7:56 AM [facility] % Neutrophils 67 % 08/21/2023 7:56 AM [facility] % Lymphocytes 22 % 08/21/2023 7:56 AM [facility] % Monocytes 9 % 08/21/2023 7:56 AM [facility] % Eosinophils 1 % 08/21/2023 7:56 AM [facility] % Basophils 0 % 08/21/2023 7:56 AM [facility] % Immature Granulocytes 1 % 08/21/2023 7:56 AM [facility] NRBCs per 100 WBC 0 <1 /100 024 7:56 AM [facility] Absolute Neutrophils 6.0 1.6 - 8.3 10e3/uL 08/21/2023 7:56 AM [facility] Absolute Lymphocytes 2.0 0.8 - 5.3 10e3/uL 08/21/2023 7:56 AM [facility] Absolute Monocytes 0.8 0.0 - 1.3 10e3/uL 08/21/2023 7:56 AM [facility] Absolute Eosinophils 0.1 0.0 - 0.7 10e3/uL 08/21/2023 7:56 AM [facility] Absolute Basophils 0.0 0.0 - 0.2 10e3/uL 08/21/2023 7:56 AM [facility] Absolute Immature Granulocytes 0.1 <=0.4 10e3/uL 08/21/2023 7:56 AM [facility] Absolute NRBCs 0.0 10e3/uL 08/21/2023 7:56 AM [facility] Blood BLOOD SPECIMEN / Unknown Venipuncture / Unknown 08/21/2023 7:42 AM [facility] 08/21/2023 7:48 AM SECURITIES TRADER Chris Marie MD LAB - BLOOD ORDERAB LES [facility] Lab [address], [address] [place] [address], [facility] [phone] * (ABNORMAL) Basic metabolic panel (08/21/2023 7:42 AM SECURITIES TRADER) [facility] Sodium 136 135 - 145 mmol/L 08/21/2023 8:15 AM [facility] Comment:Reference intervals for this test were updated on 04/20/2023 to more accurately reflect our healthy population. There may be differences in the flagging of prior results with similar values performed with this method. Interpretation of those prior results can be made in the context of the updated reference intervals. Potassium 3.3(L) 3.4 - 5.3 mmol/L 08/21/2023 8:15 AM [facility] Chloride 100 98 - 107 mmol/L 08/21/2023 8:15 AM [facility] Carbon Dioxide (CO2) 25 22 - 29 mmol/L 08/21/2023 8:15 AM [facility] Anion Gap 11 7 - 15 mmol/L 08/21/2023 8:15 AM [facility] Urea Nitrogen 6.9(L) 8.0 - 23.0 mg/dL 08/21/2023 8:15 AM [facility] Creatinine 0.70 0.67 - 1.17 mg/dL 08/21/2023 8:15 AM [facility] GFR Estimate >90 >60 mL/min/1. 73m2 08/21/2023 8:15 AM [facility] Calcium 8.8 8.8 - 10.2 mg/dL 08/21/2023 8:15 AM [facility] Glucose 98 70 - 99 mg/dL 08/21/2023 8:15 AM [facility] Blood BLOOD SPECIMEN / Unknown Venipuncture / Unknown 08/21/2023 7:42 AM SECURITIES TRADER 08/21/2023 7:48 AM SECURITIES TRADER Chris Marie MD LAB - BLOOD ORDERAB LES [facility] Lab [address], [address] [place] [address], [facility] [phone] * Phosphorus (08/21/2023 7:42 AM SECURITIES TRADER) [facility] Phosphorus 3.1 2.5 - 4.5 mg/dL 08/21/2023 8:15 AM SECURITIES TRADER LABORATORY Blood BLOOD SPECIMEN / Unknown Venipuncture / Unknown 08/21/2023 7:42 AM SECURITIES TRADER 08/21/2023 7:48 AM SECURITIES TRADER Jun Leone MD LAB - BLOOD OR DERABLES [facility] [address], [address] [place] [address], [facility] [phone] * Potassium (08/20/2023 10:02 PM SECURITIES TRADER) [facility] Potassium 3.6 3.4 - 5.3 mmol/L 08/20/2023 10:20 PM SECURITIES TRADER LABORATORY Blood STRUCTURE OF LEFT UPPER LIMB / Unknown Venipuncture / Unknown 08/20/2023 10:02 PM SECURITIES TRADER 08/20/2023 10:07 PM SECURITIES TRADER Jun Leone MD LAB - BLOOD OR DERABLES [facility] [address], [address] [place] [address], [facility] [phone] * (ABNORMAL) CBC with platelets and differential (08/20/2023 7:00 AM SECURITIES TRADER) [facility] WBC Count 9.5 4.0 - 11.0 10e3/uL 08/20/2023 7:47 AM SECURITIES TRADER LABORATORY RBC Count 4.06(L) 4.40 - 5.90 10e6/uL 08/20/2023 7:47 AM SECURITIES TRADER LABORATORY Hemoglobin 12.4(L) 13.3 - 17.7 g/dL 08/20/2023 7:47 AM [facility] Hematocrit 36.5(L) 40.0 - 53.0 % 08/20/2023 7:47 AM [facility] MCV 90 78 - 100 fL 08/20/2023 7:47 AM [facility] MCH 30.5 26.5 - 33.0 pg 08/20/2023 7:47 AM [facility] MCHC 34.0 31.5 - 36.5 g/dL 08/20/2023 7:47 AM [facility] RDW 13.5 10.0 - 15.0 % 08/20/2023 7:47 AM [facility] Platelet Count 110(L) 150 - 450 10e3/uL 08/20/2023 7:47 AM [facility] % Neutrophils 74 % 08/20/2023 7:47 AM [facility] % Lymphocytes 16 % 08/20/2023 7:47 AM [facility] % Monocytes 8 % 08/20/2023 7:47 AM [facility] % Eosinophils 1 % 08/20/2023 7:47 AM [facility] % Basophils 0 % 08/20/2023 7:47 AM [facility] % Immature Granulocytes 1 % 08/20/2023 7:47 AM [facility] NRBCs per 100 WBC 0 <1 /100 024 7:47 AM [facility] Absolute Neutrophils 7.0 1.6 - 8.3 10e3/uL 08/20/2023 7:47 AM [facility] Absolute Lymphocytes 1.5 0.8 - 5.3 10e3/uL 08/20/2023 7:47 AM [facility] Absolute Monocytes 0.7 0.0 - 1.3 10e3/uL 08/20/2023 7:47 AM [facility] Absolute Eosinophils 0.1 0.0 - 0.7 10e3/uL 08/20/2023 7:47 AM [facility] Absolute Basophils 0.0 0.0 - 0.2 10e3/uL 08/20/2023 7:47 AM [facility] Absolute Immature Granulocytes 0.1 <=0.4 10e3/uL 08/20/2023 7:47 AM [facility] Absolute NRBCs 0.0 10e3/uL 08/20/2023 7:47 AM [facility] Blood STRUCTURE OF LEFT UPPER LIMB / Unknown Venipuncture / Unknown 08/20/2023 7:00 AM SECURITIES TRADER 08/20/2023 7:33 AM SECURITIES TRADER Chris Marie MD LAB - BLOOD ORDERAB LES LABORATORY [facility] Lab [address], [address] [address], [facility] [phone] * Phosphorus (08/20/2023 7:00 AM [facility]) Phosphorus 2.9 2.5 - 4.5 mg/dL 08/20/2023 8:00 AM [facility] Blood STRUCTURE OF LEFT UPPER LIMB / Unknown Venipuncture / Unknown 08/20/2023 7:00 AM SECURITIES TRADER 08/20/2023 7:33 AM SECURITIES TRADER Chris Marie MD LAB - BLOOD ORDERAB LES LABORATORY [facility] Lab [address], [address], [place] [address], [facility] [phone] * (ABNORMAL) Basic metabolic panel (08/20/2023 7:00 AM [facility]) Sodium 137 135 - 145 mmol/L 08/20/2023 8:00 AM [facility] Comment:Reference intervals for this test were updated on 04/20/2023 to more accurately reflect our healthy population. There may be differences in the flagging of prior results with similar values performed with this method. Interpretation of those prior results can be made in the context of the updated reference intervals. Potassium 3.1(L) 3.4 - 5.3 mmol/L 08/20/2023 8:00 AM [facility] Chloride 102 98 - 107 mmol/L 08/20/2023 8:00 AM [facility] Carbon Dioxide (CO2) 27 22 - 29 mmol/L 08/20/2023 8:00 AM [facility] Anion Gap 8 7 - 15 mmol/L 08/20/2023 8:00 AM [facility] Urea Nitrogen 6.4(L) 8.0 - 23.0 mg/dL 08/20/2023 8:00 AM [facility] Creatinine 0.71 0.67 - 1.17 mg/dL 08/20/2023 8:00 AM [facility] GFR Estimate >90 >60 mL/min/1. 73m2 08/20/2023 8:00 AM [facility] Calcium 8.5(L) 8.8 - 10.2 mg/dL 08/20/2023 8:00 AM [facility] Glucose 88 70 - 99 mg/dL 08/20/2023 8:00 AM [facility] Blood STRUCTURE OF LEFT UPPER LIMB / Unknown Venipuncture / Unknown 08/20/2023 7:00 AM SECURITIES TRADER 08/20/2023 7:33 AM SECURITIES TRADER Chris Marie MD LAB - BLOOD ORDERAB LES [facility] Lab [address], [address], [place] [address], [facility] [phone] * Phosphorus (08/19/2023 3:45 PM SECURITIES TRADER) Phosphorus 2.8 2.5 - 4.5 mg/dL 08/19/2023 4:10 PM SECURITIES TRADER LABORATORY Blood STRUCTURE OF LEFT HAND / Unknown Venipuncture / Unknown 08/19/2023 3:45 PM SECURITIES TRADER 08/19/2023 3:52 PM SECURITIES TRADER Chris Marie MD LAB - BLOOD ORDERAB LES [facility] [address], [address] [place] [address], [place] [phone] * (ABNORMAL) UA with Microscopic reflex to Culture (08/19/2023 2:55 AM SECURITIES TRADER) Color Urine Light Yellow Colorless, Straw, Light Yellow, Yellow 08/19/2023 3:13 AM [facility] Appearance Urine Clear Clear 08/19/19 3:13 AM [facility] Glucose Urine Negative Negative mg/dL 08/19/2023 3:13 AM [facility] Bilirubin Urine Negative Negative 3:13 AM [facility] Ketones Urine 10(A) Negative mg/dL 08/19/2023 3:13 AM [facility] Specific [place] Urine 1.015 1.003 - 1.035 STEPHEN 08/19/2023 3:13 AM [facility] Blood Urine Negative Negative 08/19/2023 3:13 AM [facility] pH Urine 5.5 5.0 - 7.0 08/19/2023 3:13 AM [facility] Protein Albumin Urine Negative Negative mg/dL 08/19/2023 3:13 AM [facility] Urobilinogen Urine Normal Normal, 2.0 mg/dL 08/19/2023 3:13 AM [facility] Nitrite Urine Negative Negative 08/19/2023 3:13 AM [facility] Leukocyte Esterase Urine Negative Negative 08/19/2023 3:13 AM [facility] Mucus Urine Present(A) None Seen /LPF 08/19/2023 3:13 AM [facility] RBC Urine 1 <=2 /HPF 08/19/2023 3:13 AM [facility] WBC Urine 1 <=5 /HPF 08/19/2023 3:13 AM [facility] Urine URINE SPECIMEN OBTAINED BY CLEAN CATCH PROCEDURE / Unknown Non-blood Collection / Unknown 08/19/2023 2:55 AM SECURITIES TRADER 08/19/2023 3:05 AM SECURITIES TRADER Narrative LABORATORY - 08/19/2023 3:13 AM [facility] Urine Culture not indicated Jun Leone MD LAB - URINE OR DERABLES LABORATORY [facility] Lab [address], [address] [place] [address], [facility] [phone] * (ABNORMAL) C. difficile Antigen and Toxins A/B by Enzyme Immunoassay (08/18/2023 11:41 PM SECURITIES TRADER) C. difficile GDH Antigen Positive(A ) Negative STEPHEN 08/19/2023 6:00 AM SECURITIES TRADER [facility] C. difficile Toxin Positive(A ) Negative STEPHEN 08/19/2023 6:00 AM SECURITIES TRADER [facility] Stool RECTAL CONTENTS / Unknown Non-blood Collection / Unknown 08/18/2023 11:41 PM SECURITIES TRADER 08/18/2023 11:51 PM SECURITIES TRADER Narrative [facility] - 08/19/2023 6:00 AM SECURITIES TRADER C. difficile GDH antigen and C. difficile toxin were detected by enzyme immunoassay. Results must be interpreted based on clinical findings and are supportive of C. difficile infection. Luisa Mendoza MD LAB - MICRO GENERAL ORDERABLES [facility] Inf. Diseases Diag. Lab [address] [facility], [address] [place] [address], [facility] [phone] * (ABNORMAL) C. difficile Toxin B PCR with reflex to C. difficile Antigen and Toxins A/B EIA (08/18/2023 11:41 PM SECURITIES TRADER) C Difficile Toxin B by PCR Positive( A) Negative 08/19/2023 5:02 AM SECURITIES TRADER [facility] Comment: Detection of C. [...] Non-blood Collection / Unknown 08/18/2023 11:41 PM SECURITIES TRADER 08/18/2023 11:51 PM SECURITIES TRADER Narrative [facility] - 08/19/2023 5:02 AM SECURITIES TRADER The [employer] Xpert C. difficile Assay, performed on the [employer], is a qualitative in vitro [...] - MICRO GENERAL ORDERABLES [facility] Inf. Diseases Diag. Lab [address] [facility], [address] [place] [address], [facility] [phone] * CT Abdomen Pelvis w/o & w Contrast (08/18/2023 8:56 PM SECURITIES TRADER) Anatomical Region Laterality Modality Abdomen/Pelvis, SUBRAD CT SISSY DY, P CT ABDOMEN PELVIS, RAD CT Computed Tomography 08/18/2023 8:56 PM SECURITIES TRADER Impressions 08/18/2023 9:14 PM SECURITIES TRADER IMPRESSION: 1. ??Pancolitis, likely infectious or inflammatory. [...] Correlate with urinalysis. Narrative 08/18/2023 9:14 PM SECURITIES TRADER EXAM: CT ABDOMEN PELVIS W/O and W CONTRAST LOCATION: [facility] DATE: 08/18/2023 INDICATION: Diarrhea. Concern for [...] ABDOMEN PELVIS W/O and W CONTRAST LOCATION: [facility] DATE: 08/18/2023 INDICATION: Diarrhea. Concern for [...] cystitis. Correlate with urinalysis. Luisa Mendoza MD [facility] CT ORDERABLES * (ABNORMAL) CBC with platelets and differential (08/18/2023 7:11 PM SECURITIES TRADER) WBC Count 17.1(H) 4.0 - 11.0 10e3/uL 08/18/2023 7:50 PM SECURITIES TRADER LABORATORY RBC Count 4.19(L) 4.40 - 5.90 10e6/uL 08/18/2023 7:50 PM SECURITIES TRADER LABORATORY Hemoglobin 12.8(L) 13.3 - 17.7 g/dL 08/18/2023 7:50 PM SECURITIES TRADER LABORATORY Hematocrit 38.2(L) 40.0 - 53.0 % 08/18/2023 7:50 PM SECURITIES TRADER LABORATORY MCV 91 78 - 100 fL 08/18/2023 7:50 PM SECURITIES TRADER LABORATORY MCH 30.5 26.5 - 33.0 pg 08/18/2023 7:50 PM SECURITIES TRADER LABORATORY MCHC 33.5 31.5 - 36.5 g/dL 08/18/2023 7:50 PM SECURITIES TRADER LABORATORY RDW 13.9 10.0 - 15.0 % 08/18/2023 7:50 PM SECURITIES TRADER LABORATORY Platelet Count 117(L) 150 - 450 10e3/uL 08/18/2023 7:50 PM SECURITIES TRADER LABORATORY % Neutrophils 76 % 08/18/2023 7:50 PM SECURITIES TRADER LABORATORY % Lymphocytes 16 % 08/18/2023 7:50 PM SECURITIES TRADER LABORATORY % Monocytes 5 % 08/18/2023 7:50 PM SECURITIES TRADER LABORATORY % Eosinophils 2 % 08/18/2023 7:50 PM SECURITIES TRADER LABORATORY % Basophils 0 % 08/18/2023 7:50 PM SECURITIES TRADER LABORATORY % Immature Granulocytes 1 % 08/18/2023 7:50 PM [facility] NRBCs per 100 WBC 0 <1 /100 024 7:50 PM [facility] Absolute Neutrophils 13.1(H) 1.6 - 8.3 10e3/uL 08/18/2023 7:50 PM SECURITIES TRADER LABORATORY Absolute Lymphocytes 2.7 0.8 - 5.3 10e3/uL 08/18/2023 7:50 PM [facility] Absolute Monocytes 0.8 0.0 - 1.3 10e3/uL 08/18/2023 7:50 PM SECURITIES TRADER LABORATORY Absolute Eosinophils 0.3 0.0 - 0.7 10e3/uL 08/18/2023 7:50 PM [facility] Absolute Basophils 0.1 0.0 - 0.2 10e3/uL 08/18/2023 7:50 PM SECURITIES TRADER LABORATORY Absolute Immature Granulocytes 0.2 <=0.4 10e3/uL 08/18/2023 7:50 PM [facility] Absolute NRBCs 0.0 10e3/uL 08/18/2023 7:50 PM [facility] Blood BLOOD SPECIMEN / Unknown Venipuncture / Unknown 08/18/2023 7:11 PM SECURITIES TRADER 08/18/2023 7:42 PM SECURITIES TRADER Luisa Mendoza MD LAB - BLOOD ORDERABL ES LABORATORY [facility] [address], [address] [place] [address], [facility] [phone] * Comprehensive metabolic panel (08/18/2023 7:11 PM [facility]) [facility] Sodium 140 135 - 145 mmol/L 08/18/2023 8:14 PM [facility] Comment:Reference intervals for this test were updated on 04/20/2023 to more accurately reflect our healthy population. There may be differences in the flagging of prior results with similar values performed with this method. Interpretation of those prior results can be made in the context of the updated reference intervals. Potassium 3.8 3.4 - 5.3 mmol/L 08/18/2023 8:14 PM [facility] Carbon Dioxide (CO2) 25 22 - 29 mmol/L 08/18/2023 8:14 PM [facility] Anion Gap 11 7 - 15 mmol/L 08/18/2023 8:14 PM [facility] Urea Nitrogen 16.8 8.0 - 23.0 mg/dL 08/18/2023 8:14 PM [facility] Creatinine 0.80 0.67 - 1.17 mg/dL 08/18/2023 8:14 PM [facility] GFR Estimate 90 >60 mL/min/1. 73m2 08/18/2023 8:14 PM [facility] Calcium 9.0 8.8 - 10.2 mg/dL 08/18/2023 8:14 PM [facility] Chloride 104 98 - 107 mmol/L 08/18/2023 8:14 PM [facility] Glucose 82 70 - 99 mg/dL 08/18/2023 8:14 PM [facility] Alkaline Phosphatase 86 40 - 150 U/L 08/18/2023 8:14 PM [facility] Comment:Reference intervals for this test were updated on 06/08/2023 to more accurately reflect our healthy population. There may be differences in the flagging of prior results with similar values performed with this method. Interpretation of those prior results can be made in the context of the updated reference intervals. AST 23 0 - 45 U/L 08/18/2023 8:14 PM [facility] Comment:Reference intervals for this test were updated on 01/04/2023 to more accurately reflect our healthy population. There may be differences in the flagging of prior results with similar values performed with this method. Interpretation of those prior results can be made in the context of the updated reference intervals. ALT 22 0 - 70 U/L 08/18/2023 8:14 PM [facility] Comment:Reference intervals for this test were updated on 01/04/2023 to more accurately reflect our healthy population. There may be differences in the flagging of prior results with similar values performed with this method. Interpretation of those prior results can be made in the context of the updated reference intervals. Protein Total 6.7 6.4 - 8.3 g/dL 08/18/2023 8:14 PM [facility] Albumin 3.5 3.5 - 5.2 g/dL 08/18/2023 8:14 PM SECURITIES TRADER LABORATORY Bilirubin Total 0.5 <=1.2 mg/dL 08/18/2023 8:14 PM [facility] Blood BLOOD SPECIMEN / Unknown Venipuncture / Unknown 08/18/2023 7:11 PM SECURITIES TRADER 08/18/2023 7:42 PM SECURITIES TRADER Luisa Mendoza MD LAB - BLOOD ORDERABL ES [facility] [address], [address] [place] [address], [facility] [phone] * Magnesium (08/18/2023 7:11 PM SECURITIES TRADER) [facility] Magnesium 2.1 1.7 - 2.3 mg/dL 08/18/2023 8:14 PM [facility] Blood BLOOD SPECIMEN / Unknown Venipuncture / Unknown 08/18/2023 7:11 PM SECURITIES TRADER 08/18/2023 7:42 PM SECURITIES TRADER Luisa Mendoza MD LAB - BLOOD ORDERABL ES [facility] [address], [address] [place] [address], [place] [phone] documented in this encounter Visit Diagnoses Diagnosis C. 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 $Given 08/19/2023 10:05 PM SECURITIES TRADER 650 mg ALPRAZolam (XANAX) tablet 0.5 mg 0.5 mg, Oral, 2 TIMES DAILY PRN, anxiety, Starting on Wed08/19/23 at 0242, Avoid taking with grapefruit juice $Given 08/20/2023 7:36 AM SECURITIES TRADER 0.5 mg calcium carbonate (TUMS) chewable tablet 1,000 mg 1,000 mg, Oral, 4 TIMES DAILY PRN, heartburn, Starting on Wed08/19/23 at 0243 $Given 08/20/2023 9:48 PM SECURITIES TRADER 1,000 mg fidaxomicin (DIFICID) tablet 200 mg STAT, 200 mg, Oral, ONCE, On Wed08/18/23 at 2250, For 1 dose, Indications: Clostridioides difficile $Given 08/18/2023 11:43 PM SECURITIES TRADER 200 mg fidaxomicin (DIFICID) tablet 200 mg Routine, 200 mg, Oral, 2 TIMES DAILY, First dose on Wed08/19/23 at 0900, ID consulted, will see 08/19, Indications: Clostridioides difficile $Given 08/21/2023 9:20 AM SECURITIES TRADER 200 mg $Given 08/20/2023 9:48 PM SECURITIES TRADER 200 mg $Given 08/20/2023 9:30 AM SECURITIES TRADER 200 mg hydrALAZINE (APRESOLINE) injection 10 mg [...] Wed08/19/23 at 0244 $Given 08/21/2023 11:14 AM SECURITIES TRADER 10 mg iopamidol (ISOVUE-370) solution 83 mL 83 mL, Intravenous, ONCE, On Wed08/18/23 at 2030, For 1 dose $Given 08/18/2023 8:42 PM SECURITIES TRADER 83 mLs lactobacillus rhamnosus (GG) (CULTURELL) capsule 1 capsule 1 capsule, Oral, DAILY, First dose on Wed08/21/23 at 0930, Administer at least 2 hours before or after oral antibiotics. Capsules may be opened. $Given 08/21/2023 10:41 AM SECURITIES TRADER 1 caps ule latanoprost (XALATAN) 0.005 % ophthalmic solution 1 drop 1 drop, Both Eyes, EVERY EVENING, First dose on Wed08/19/23 at 2000 $Given 08/19/2023 10:00 PM SECURITIES TRADER 1 drop lisinopril (ZESTRIL) tablet 20 mg 20 mg, Oral, DAILY, First dose on Wed08/19/23 at 0930 $Given 08/21/2023 9:19 AM SECURITIES TRADER 20 mg $Given 08/20/2023 9:30 AM SECURITIES TRADER 20 mg $Given 08/19/2023 9:15 AM SECURITIES TRADER 20 mg metroNIDAZOLE (FLAGYL) infusion 500 mg Routine, 500 mg, Intravenous, EVERY 8 HOURS, First dose on Wed08/19/23 at 0300, Do not refrigerate., Indications: Clostridioides difficile $New Bag 08/20/2023 10:39 AM SECURITIES TRADER 500 mg $New Bag 08/20/2023 2:50 AM SECURITIES TRADER 500 mg $New Bag 08/19/2023 6:12 PM SECURITIES TRADER 500 mg multivitamin w/minerals (THERA-VIT-M) tablet 1 tablet 1 tablet, Oral, EVERY 24 HOURS, First dose on Bree 08/19/23 at 0930 $Given 08/21/2023 9:19 AM SECURITIES TRADER 1 tablet $Given 08/20/2023 9:30 AM SECURITIES TRADER 1 tablet $Given 08/19/2023 9:15 AM SECURITIES TRADER 1 tablet naloxone (NARCAN) injection 0.2 mg [...] over 24 Hours, First dose on Bree 1/25/24 at 0900, Reminder: Remove previous patch before applying new patch. $Patch/Med Applied 08/21/2023 9:21 AM SECURITIES TRADER 1 patch Left Arm $Patch/Med Applied 08/20/2023 9:30 AM SECURITIES TRADER 1 patch Right Arm $Patch/Med Applied 08/19/2023 9:16 AM SECURITIES TRADER 1 patch Left Arm nicotine Patch in [...] last oral dose $Given 08/20/2023 9:30 AM SECURITIES TRADER 40 mEq potassium chloride ER (KLOR-CON M) CR tablet 40 mEq 40 mEq, Oral, ONCE, On Wed08/21/23 at 1000, For 1 dose, Potassium level 3.1 - 3.4 mmol/L Ordered from the Potassium replacement order set. DO NOT CRUSH, Potassium Replacement: Potassium level 3.1-3.4 mmol/L, Recheck: Potassium level 4 hours AFTER last oral dose $Given 08/21/2023 10:41 AM SECURITIES TRADER 40 mEq Saline As instructed, 63 mL, ONCE, On Wed08/18/23 at 2030, For 1 dose, This entry is for use by Radiology to intermittently used as a flush in patients receiving a CT scan. $Given 08/18/2023 8:41 PM SECURITIES TRADER 63 mL s simvastatin (ZOCOR) tablet 20 mg 20 mg, Oral, AT BEDTIME, First dose on Wed08/19/23 at 2200 $Given 08/20/2023 9:48 PM SECURITIES TRADER 20 mg $Given 08/19/2023 10:00 PM SECURITIES TRADER 20 mg sodium chloride (PF) 0.9% PF flush 3 mL 3 mL, Intracatheter, EVERY 8 HOURS, First dose on Wed08/19/23 at 0300, to lock peripheral IV dormant line $Given 08/21/2023 10:43 AM SECURITIES TRADER 3 mLs $Given 08/21/2023 2:34 AM SECURITIES TRADER 3 mLs sodium chloride 0.9 % infusion at 100 mL/hr, Intravenous, CONTINUOUS, Starting on Wed08/19/23 at 0130, Until Wed08/20/23 at 1036 $New Bag 08/19/2023 12:48 PM SECURITIES TRADER 100 mL/hr $New Bag 08/19/2023 1:21 AM SECURITIES TRADER 100 mL/hr traMADol (ULTRAM) tablet 50 mg 50 mg, Oral, EVERY 6 HOURS PRN, moderate pain, Starting on Wed08/19/23 at 0240 $Given 08/19/2023 6:33 PM SECURITIES TRADER 50 mg $Given 08/19/2023 10:14 AM SECURITIES TRADER 50 mg traMADol (ULTRAM) tablet 50 mg 50 mg, Oral, ONCE, On Wed08/19/23 at 0300, For 1 dose $Given 08/19/2023 2:47 AM SECURITIES TRADER 50 mg documented in this encounter Active and Recently Administered Medications Times are shown in SECURITIES TRADER. Scheduled Medication Order 08/19/2023 08/20/2023 08/21/2023 fidaxomicin (DIFICID) tablet 200 mg Routine, 200 mg, Oral, 2 TIMES DAILY, First dose on Wed24 at 0900, ID consulted, will see 08/19, Indications: Clostridioides difficile 1247 ($Given - Provider: Brandi Matthews RN)2200 ($Given - Provider: Luba Olivo RN) 0930 ($Given - Provider: Anna Tucker, MEDHAT)2148 ($Given - Provider: Carmenza Thompson, MEDHAT) 0920 ($Given - Provider: Agustín Prince, MEDHAT) lactobacillus rhamnosus (GG) (CULTURELL) capsule 1 capsule 1 capsule, Oral, DAILY, First dose on [facility] 08/21/23 at 0930, Administer at least 2 [...] Matthews RN) 0930 ($Given - Provider: Anna Tucker, MEDHAT) 0919 ($Given - Provider: Agustín Prince, MEDHAT) metroNIDAZOLE (FLAGYL) infusion 500 mg (CANCELED) Routine, [...] Matthews RN) 0930 ($Given - Provider: Anna Tucker, RN) 0919 ($Given - Provider: Agustín Prince, RN) nicotine (NICODERM CQ) 21 MG/24HR 24 hr patch 1 patch 1 patch, Transdermal, DAILY, Administer over 24 Hours, First dose on Wed08/19/23 at 0900, Reminder: Remove previous patch before applying new patch. 0916 ($Patch/Med Applied - Provider: Brandi Matthews RN) 0930 ($Patch/Med Applied - Provider: Anna Tucker, RN)0931 (Patch/Med Removed - Provider: Anna Tucker, RN) 0907 (Patch/Med Removed - Provider: Agustín Prince, RN)0921 ($Patch/Med Applied - Provider: Agustín Prince, RN)1351 (Due: Patch/Med Removed - Provider: Orders Generic [...] RN)1013 (Patch in Place - Provider: Anna Tucker, MEDHAT)2141 (Patch in Place - Provider: Carmenza Thompson, [...] oral dose 0930 ($Given - Provider: Anna Tucker, MEDHAT) potassium chloride ER (KLOR-CON M) CR tablet 40 mEq (COMPLETED) 40 mEq, Oral, ONCE, On 08/21/23 at 1000, For 1 dose, Potassium level [...] Olivo, MEDHAT) 2148 ($Given - Provider: Carmenza Thompson RN) sodium chloride (PF) 0.9% PF flush 3 mL 3 mL, Intracatheter, EVERY 8 HOURS, First dose on Bree 08/19/23 at 0300, to lock peripheral IV dormant line 0248 (Not Given - Provider: Aurea New RN - Reason: IV Infusing)1134 (Not Given - Provider: Brandi Matthews RN - Reason: IV Infusing)1812 (Not Given - Provider: Elizabeth Moran RN - Reason: IV Infusing) 0251 (Not Given - Provider: Anu Munoz RN - Reason: IV Infusing)1013 (Not Given - Provider: Anna Tucker RN - Reason: IV Infusing)2149 (Canceled Entry - Provider: Carmenza Thompson RN) 0234 ($Given - Provider: Azeem Vega RN)1043 ($Given - Provider: Agustín Prince, MEDHAT) traMADol (ULTRAM) tablet 50 mg (COMPLETED) 50 mg, Oral, ONCE, On Bree 08/19/23 at 0300, For 1 dose 0247 ($Given - Provider: Aurea New RN) Continuous Medication Order 08/19/2023 08/20/2023 08/21/2023 sodium chloride 0.9 % infusion (CANCELED) at 100 mL/hr, Intravenous, CONTINUOUS, Starting on Bree 08/19/23 at 0130, Until Wed08/20/23 at 1036 0121 ($New Bag - Provider: Aurea New, RN)1248 ($New Bag - Provider: Brandi Matthews, RN) 1036 (Stopped - Provider: Anna Tucker, MEDHAT) PRN Medication Order 08/19/2023 08/20/2023 08/21/2023 acetaminophen (TYLENOL) Suppository 650 mg(Linked Group 1) 650 mg, Rectal, EVERY 4 HOURS PRN, mild pain, other, and adjunct with moderate or severe pain or per patient request, Starting on Bree 08/19/23 at 0244, Alternate with ibuprofen if ordered. Maximum acetaminophen dose from all sources = 75 mg/kg/day not to exceed 4 grams/day. 2204 (See Alternative - Provider: Odette Ramirez Do, RN) acetaminophen (TYLENOL) tablet 650 mg(Linked Group 1) 650 mg, Oral, EVERY 4 HOURS PRN, mild pain, other, and adjunct with moderate or severe pain or per patient request, Starting on Bree 08/19/23 at 0244, Alternate with ibuprofen if ordered. Maximum acetaminophen dose from all sources = 75 mg/kg/day not to exceed 4 grams/day. 2204 ($Given - Provider: Odette Ramirez Do, RN) ALPRAZolam (XANAX) tablet 0.5 mg 0.5 mg, Oral, 2 TIMES DAILY PRN, anxiety, Starting on Bree 08/19/23 at 0242, Avoid taking with grapefruit juice 0736 ($Given - Provider: Anna Tucker, MEDHAT) calcium carbonate (TUMS) chewable tablet 1,000 mg [...] at 0244 1114 ($Given - Provider: Agustín Prince RN) lidocaine (LMX4) cream Topical, EVERY 1 [...] Out C-difficile 08/18/2023 08/18/2023 024 5:02 AM SECURITIES TRADER C-difficile 08/18/2023 08/18/2023 09/17/2023 11:3 9 PM SECURITIES TRADER documented as of this encounter Care Teams Structural Metal Fabricator Apprentice Relationship Specialty Start Date End Date No Ref-Primary, Physician PCP - General 03/25/23 10/19/23 documented as of this encounter
--- OUTSIDE RECORDS SUMMARY | 2023-11-12 17:29 | XMS_ITS | Clinical Summary ---
Author Name Unknown Organization [employer] Address [place], [place] [address] Care Team Providers Care Treasury Associate Name Role Phone Marco A Buckley MD Primary Care Provider [phone] Allergies No known active allergies Medications Medication Sig Dispensed Refills Start Date End Date Status ASPIRIN 325 MG ORAL TAB once a day ? 0 06/25/2004 Active NITROGLYCERIN 0.4 MG SL SUBL as needed ? 0 06/25/2004 Active MULTIVITAMIN ORAL TAB once a day ? 0 06/25/2004 Active ALPRAZolam (XANAX) 0.25 mg tablet 10/04/2014 Active lisinopril (PRINIVIL; ZESTRIL) 20 mg tablet Take 20 mg by mouth once daily. 07/30/2014 Active simvastatin (ZOCOR) 40 mg tablet Take 20 mg by mouth at bedtime. 07/05/2014 Active latanoprost (XALATAN) 0.005 % ophthalmic [...] Comments Blood Pressure 147/74 07/09/2020 3:17 PM PRODUCT MANAGEMENT INTERN Pulse 77 07/09/2020 3:17 PM PRODUCT MANAGEMENT INTERN Temperature 36.3 ??C (97.4 ??F) 10/21/2015 9:36 AM CD T Respiratory Rate - - Oxygen Saturation 100% 07/09/2020 3:17 PM PRODUCT MANAGEMENT INTERN Inhaled Oxygen Concentration - - Weight 85.4 kg (188 lb 3.2 oz) 07/09/2020 3:17 P M PRODUCT MANAGEMENT INTERN Height 172.1 cm (5' 7.75) 10/21/2015 9:36 [...] age 18+ 10/20/2016 10/21/2015 COVID-19 vaccine series (24 season) 2023 04/20/2022, 01/01/2022, 06/10/2021, Additional history exists Influenza for age 65+ 03/26/2024 Care Teams Treasury Associate Relationship Specialty Start Date End Date Marco A Buckley MD PCP - General Family Practice 03/18/23
--- OUTSIDE RECORDS SUMMARY | 2023-11-12 17:29 | XMS_ITS | Encounter Summary ---
Author Name Unknown Organization [place] Address [facility] [place] [address] Care Team Providers Care Tourist Information Officer Name Role Phone No Ref-Primary, Physician Primary Care Provider Juan Pablo Buckley MD Primary Care Provider Encounter Details Date Type Department Care Team (Late st Contact Info) Description 08/12/2023 Hospital Encounter [facility] Endoscopy [address] [address] Carlyn Barba MD [facility] [address] [place] [id number] Social History Tobacco Use Types Packs/Day Years [...] C-difficile 07/16/2023 07/16/2023 08/15/2023 11:3 9 PM DIRECTOR BUSINESS SYSTEMS Rule Out C-difficile 08/18/2023 08/18/2023 024 5:02 AM DIRECTOR BUSINESS SYSTEMS C-difficile 08/18/2023 08/18/2023 09/17/2023 11:3 9 PM DIRECTOR BUSINESS SYSTEMS documented as of this encounter Care Teams Tourist Information Officer Relationship Specialty Start Date End Date No Ref-Primary, Physician PCP - General 03/25/23 10/19/23 Juan Pablo Buckley MD [facility] [id number] [place] [address] PCP - General Family Medicine 10/20/23 documented as of this encounter
--- OUTSIDE RECORDS SUMMARY | 2023-11-12 17:29 | XMS_ITS | Encounter Summary ---
Author Name Unknown Organization [place] Address [address] [place] [address] Care Team Providers Care Overcoil Stepper Name Role Phone No Ref-Primary, Physician Primary Care Provider Juan Pablo Buckley MD Primary Care Provider [phone] 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] Procedures MA LAP,SURG,COLECTOMY, PARTIAL, W/ANAST MA LAP,SURG,COLECTOMY,W/REMVL TERM ILEUM MA LAP,SURG,COLECTOMY,W/END COLOST & CLOSUR MA LAP,SURG,COLECTOMY,W/ANAST MA LAP, SURG, COLECTOMY, W/ANAST, W/COLOSTOMY MA LAP,SURG,COLECTOMY,TOTAL,W/O PROCTECTOMY MA LAP,SURG,COLECTOMY,TOTAL,W/PROCT ECTOMY MA LAP,SURG,COLECT,TOT,W/PROCTECT,W /ILEOST MA CYSTOURETHROSCOPY W URETERAL CATH MA CYSTOURETHROSCOPY W URETERAL CATH MA CYSTOSCOPY,INSERT URETERAL STENT cystoscopy with bilateral ureteral catheter insertion [facility] [address] [place] [address] Referral ID Status Reason Start Date Expiration Date Visits Re quested Visits Authorized [id number] 1 1 Encounter Details Date Type Department Care Team (Latest Contact Info) Description 08/20/2023 Hospital Encounter [facility] Services [address] [id number] Mauricio Padilla MD [address] [place] [address] Colonic diverticular abscess Social History Tobacco Use [...] Last Indicated Resolved Time C-difficile 08/18/2023 08/18/2023 09/17/2023 11:3 9 PM DATABASES SOFTWARE CONSULTANT documented as of this encounter Care Teams Overcoil Stepper Relationship Specialty Start Date End Date No Ref-Primary, Physician PCP - General 03/25/23 10/19/23 Juan Pablo Buckley MD [facility] [address] [place] [address] PCP - General Family Medicine 10/20/23 documented as of this encounter
--- OUTSIDE RECORDS SUMMARY | 2023-11-12 17:29 | XMS_ITS ---
Author Name Unknown Organization [place] Address [address] [place] [address] Care Team Providers Care Potato Chip Packaging Machine Operator Name Role Phone Juan Pablo Buckley MD Primary Care Provider [phone] Transitional Care Management Status:Closed (Closed) Start date:08/23/2023 Enrollment date:08/24/2023 End date:09/06/2023 Close reason:Goals met Continued Care and Services Coordination
--- OUTSIDE RECORDS SUMMARY | 2023-11-12 17:29 | XMS_ITS | Encounter Summary ---
Author Name Unknown Organization [place] Address [facility] [place] [address] Care Team Providers Care Mower Sharpener Name Role Phone No Ref-Primary, Physician Primary Care Provider Juan Pablo Buckley MD Primary Care Provider [phone] Encounter Details Date Type Department Care Team (Late st Contact Info) Description 08/17/2023 Orders Only [facility] [address] [place] [address] Carlyn Barba MD [facility] [address] [id number] Social History Tobacco Use Types Packs/Day Years [...] Out C-difficile 08/18/2023 08/18/2023 024 5:02 AM DENTAL OFFICER C-difficile 08/18/2023 08/18/2023 09/17/2023 11:3 9 PM DENTAL OFFICER documented as of this encounter Care Teams Mower Sharpener Relationship Specialty Start Date End Date No Ref-Primary, Physician PCP - General 03/25/23 10/19/23 Juan Pablo Buckley MD [facility] [id number] [place] [address] PCP - General Family Medicine 10/20/23 documented as of this encounter
--- OUTSIDE RECORDS SUMMARY | 2023-11-12 17:29 | XMS_ITS | Encounter Summary ---
Author Name Unknown Organization [place] Address [address] [place] [address] Care Team Providers Care Document Control Supervisor Name Role Phone No Ref-Primary, Physician [...] Out C-difficile 08/18/2023 08/18/2023 024 5:02 AM HIGH SCHOOL MATH TEACHER documented as of this encounter Care Teams Document Control Supervisor Relationship Specialty Start Date End Date No Ref-Primary, Physician PCP - General 03/25/23 10/19/23 documented as of this encounter
--- OUTSIDE RECORDS SUMMARY | 2023-11-12 17:29 | XMS_ITS ---
Author Name Unknown Organization [place] Address [address] [place] [address] Care Team Providers Care Concrete Tile Machine Operator Name Role Phone Juan Pablo Buckley MD Primary Care Provider [phone] Transitional Care Management Status:Closed (Closed) Start date:10/28/2023 Enrollment date:10/29/2023 End date:11/11/2023 Close reason:Goals met Continued Care and Services Coordination
--- OUTSIDE RECORDS SUMMARY | 2023-11-12 17:29 | XMS_ITS | Encounter Summary ---
Author Name Unknown Organization [place] Address [facility] [place] [address] Care Team Providers Care Publications Sales Representative Name Role Phone No Ref-Primary, Physician Primary Care Provider Juan Pablo Buckley MD Primary Care Provider [phone] Encounter Details Date Type Department Care Team (Late st Contact Info) Description 08/18/2023 Orders Only [facility] [address] [place] [address] Carlyn Barba MD [facility] [address] [id number] C. difficile diarrhea (Primary Dx) Social History [...] Out C-difficile 08/18/2023 08/18/2023 024 5:02 AM MATTRESS FILLING MACHINE TENDER C-difficile 08/18/2023 08/18/2023 09/17/2023 11:3 9 PM MATTRESS FILLING MACHINE TENDER documented as of this encounter Care Teams Publications Sales Representative Relationship Specialty Start Date End Date No Ref-Primary, Physician PCP - General 03/25/23 10/19/23 Juan Pablo Buckley MD [facility] [id number] [place] [address] PCP - General Family Medicine 10/20/23 documented as of this encounter
[2023-11-12 20:04] LABS: Basophils Absolute Auto 0.03 K/uL (0.00-0.30); Basophils Percent Auto 0.3 % (0.0-3.0); Chloride* 109 mmol/L (96-114); Eosinophils Absolute Auto 0.41 K/uL (0.00-0.50); Eosinophils Percent Auto 4.7 % (0.0-7.0); Hematocrit 38.3 % (37.0-53.0); Hemoglobin* 12.2 gm/dL (13.5-17.5); Immature Granulocytes Abs Auto 0.02 K/uL (0.00-0.30); Immature Granulocytes Pct Auto 0.2 %; Lymphocytes Absolute Auto 2.53 K/uL (0.90-2.90); Lymphocytes Percent Auto 29.3 % (20-44); Mean Corpuscular HGB Conc 32 gm/dL (32-36); Mean Corpuscular Hemoglobin 31 pg (26-34); Mean Corpuscular Volume 97 fL (80-100); Monocytes Percent Auto 9.1 % (0.0-11.0); Neutrophils Absolute Auto 4.86 K/uL (1.7-7.0); Neutrophils Percent Auto 56.4 % (42.0-72.0); Platelet Count* 389 K/uL (140-440); RDW Coefficient of Variation % 15.6 % (11.5-15.5); Red Blood Count 3.97 m/uL (4.30-5.90); Sodium* 142 mmol/L (135-149); White Blood Count* 8.64 K/uL (4.50-11.00)
[2023-11-12 20:05] LABS: Potassium* 3.8 mmol/L (3.6-5.1)
[2023-11-12 20:07] LABS: Creatinine* 0.7 mg/dL (0.5-1.5); Estimated Glomerular Filt Rate 94 ml/min
[2023-11-12 20:08] LABS: Anion Gap 2 mEq/L (7-15); Blood Urea Nitrogen* 21 mg/dL (7-30); Calcium* 9.2 mg/dL (8.4-10.6); Carbon Dioxide* 31 mmol/L (20-32); Glucose* 85 mg/dL (60-115)
[2023-11-12 20:10] LABS: Slide Review Reflex No
== END 2023-11-12 17:25 | disposition home or self-care (01) ==
LOC: NPINS 17:24
PROVIDERS: PCP Family Medicine; Visit Provider Physician Assistant
DX: R53.83 Other fatigue (principal)
CPT/HCPCS: 80048; 85025

== ENCOUNTER 2023-12-29 15:45 | Outpatient (CLI) | payer MEDICARE, SELFPAY ==
[2023-12-29 16:10] LABS: Basophils Absolute Auto 0.03 K/uL (0.00-0.30); Basophils Percent Auto 0.4 % (0.0-3.0); Eosinophils Percent Auto 9.8 % (0.0-7.0); Hematocrit 39.3 % (37.0-53.0); Hemoglobin* 12.9 gm/dL (13.5-17.5); Immature Granulocytes Abs Auto 0.01 K/uL (0.00-0.30); Immature Granulocytes Pct Auto 0.1 %; Lymphocytes Absolute Auto 2.73 K/uL (0.90-2.90); Lymphocytes Percent Auto 40.1 % (20-44); Mean Corpuscular HGB Conc 33 gm/dL (32-36); Mean Corpuscular Hemoglobin 31 pg (26-34); Mean Corpuscular Volume 95 fL (80-100); Monocytes Percent Auto 7.3 % (0.0-11.0); Neutrophils Absolute Auto 2.87 K/uL (1.7-7.0); Neutrophils Percent Auto 42.3 % (42.0-72.0); Platelet Count* 319 K/uL (140-440); RDW Coefficient of Variation % 14.5 % (11.5-15.5); Red Blood Count 4.16 m/uL (4.30-5.90); White Blood Count* 6.81 K/uL (4.50-11.00)
[2023-12-29 16:21] LABS: Slide Review Reflex No
[2023-12-29 16:26] LABS: Chloride* 105 mmol/L (96-114); Sodium* 137 mmol/L (135-149)
[2023-12-29 16:27] LABS: Potassium* 3.9 mmol/L (3.6-5.1)
[2023-12-29 16:29] LABS: Anion Gap 4 mEq/L (7-15); Carbon Dioxide* 28 mmol/L (20-32); Creatinine* 0.7 mg/dL (0.5-1.5); Estimated Glomerular Filt Rate 94 ml/min
[2023-12-29 16:30] LABS: Blood Urea Nitrogen* 18 mg/dL (7-30); Calcium* 9.2 mg/dL (8.4-10.6); Glucose* 166 mg/dL (60-115)
== END 2023-12-29 15:46 | disposition home or self-care (01) ==
LOC: LAB 15:48
PROVIDERS: PCP Family Medicine; Visit Provider Physician Assistant
DX: R53.83 Other fatigue (principal)
CPT/HCPCS: 36415; 80048; 85025

== ENCOUNTER 2023-12-31 13:43 | Outpatient (CLI) | payer MEDICARE, SELFPAY ==
--- OUTSIDE RECORDS SUMMARY | 2024-01-02 16:21 | XMS_ITS | Encounter Summary ---
Author Organization Neha Physician Silvia bansal Address [address] [place] [address] Phone Care Team Providers Care Die Storage Clerk Name Role Phone Unavailable Primary Care Provider Unavailabl e Encounter Details Date Type Department Care Team (Late st Contact Info) Description 10/06/2023 Telephone [employer] [address] [place] [address] Mercy Bo RN Social History Tobacco Use [...] Sent 9 days of the vancomycin to [facility] in [place]. Patient stated understanding. documented in this encounter Plan of Treatment Upcoming Encounters Date Type Department Care Team (Late st Contact Info) Description 02/09/2024 11:00 AM MDT Office Visit [employer] [address] [place] [address] Sybil Steinberg MD [address] [facility] [address] [place] [address] documented as of this encounter Visit Diagnoses Not on filedocumented in this encounter
--- OUTSIDE RECORDS SUMMARY | 2024-01-02 16:21 | XMS_ITS | Continuity of Care Document ---
Author Organization LUNA Ly Address [address] [facility] [address] [place] [address] Phone Care Team Providers Care Rn Er Name Role Phone Emmanuel Marya ROMAN Unavailable [...] by oral route 2 times every week [address]6465 UNITS - Active Procedures Procedure Date Est [...] Providers Copied on Encounter MONSERRAT Ly, [address], [place], [place], [address], [place] tel:[phone] [facility] No Information 3 [facility]. [address], [place], [address], [place]. tel:[phone] Referring Provider: Kaleb Lee, [address], [place], [address] . tel:[phone] Est Pt Eval 25 Min Malachi [facility], [address], [place], [place], [address], [place] tel:[phone] [facility] back pain (chief complaint) Body mass index (BMI) 26.0-26.9, adultRadiculopathy, lumbar region 3 Emmanuel Marya. [address], [place], [address], [place]. tel:[phone] Referring Provider: Kaleb Lee, [address], [place], [address] . tel:[phone] Malachi [facility], [address], [place], [place], [address], [place] tel:[phone] [facility] [place] No Information 3 Jesus Zapata. [address], [address], [place], [place], [address], [place]. tel:[phone] Referring Provider: Benny Lee, [address], [place], [address] . tel:[phone] [facility], [address], [place], [address], [place] tel:[phone] [facility] back pain (chief complaint) Radiculopathy, lumbar regionRadiculopathy , lumbar region 3 [facility]. [address], [place], [address], [place]. tel:[phone] Referring Provider: Benny Lee, [address], [place], [address] . tel:[phone] [facility], [facility], [address], [place], [place], [address], [place] tel:[phone] [facility] No Information 3 Jesus Zapata. [address], [address], [place], [address], [place]. tel:[phone] Referring Provider: Benny Lee, [address], [place], [address] . tel:[phone] New Pt Eval 60 Min [facility], [facility], [address], [place], [place], [address], [place] tel:[phone] [facility] back pain (chief complaint) Radiculopathy, lumbar regionVertebrogenic low back painBody mass index (BMI) 27.0-27.9, adult Fe- 3 Foster Florin. [address], [place], [address], [place]. tel:[phone] Referring Provider: Kaleb Lee, [address], [place], [address] . tel:[phone] Family History Family Member Type Diagnosis Age At Onset No Information Payers Payer name Insurance type Covered constitution party ID Anne brian(s) Jacki Medicare PPO 16 [id number] Social History Type Description Quantity Date Captured [...]
--- OUTSIDE RECORDS SUMMARY | 2024-01-02 16:21 | XMS_ITS | Clinical Summary ---
Author Organization Neha Physician Silvia bansal Address [address] [place] [address] Phone Care Team Providers Care Speedometer Mechanic Name Role Phone Unavailable Primary Care Provider [...] mg by mouth Taper called in to [facility] pharmacy in [place] 125 mg qid x 4 weeks 125 [...] Description 11/30/2023 9:00 AM MDT Office Visit [employer] [address] [place] [address] Amarilys Lamb PA Clostridium difficile colitis (Primary Dx) 11/24/[address] [place] [address] Mercy Bo RN 11/17/2023 11:00 AM MDT Office Visit [employer] [place] [address] Sybil Steinberg MD Recurrent Clostridium difficile infection (Primary Dx) 11/11/2023 Telephone [employer] [address] [place] [address] Mercy Bo RN 10/21/2023 Telephone [employer] [place] [address] Mercy Bo RN 10/06/2023 9:00 AM MDT Office Visit [employer] [place] [address] Amarilys Lamb PA Clostridium difficile colitis (Primary Dx); Abdominal abscess ([facility]) 10/06/2023 Telephone [employer] [address] [facility] [employer] [address] [place] [address] Mercy Bo RN from Last 3 Months [...] Description 02/09/2024 11:00 AM MDT Office Visit [employer] [address] [facility] [address] [place] [address] Sybil Steinberg MD [address] [facility] [address] [place] [address] Health Maintenance Due Date Last Done Comments Pneumococcal PPSV23/PCV13 65 + Years / High and Highest Risk (1 of 4 - PCV) 1951 Influenza Vaccine (Season Ended) 2024
--- OUTSIDE RECORDS SUMMARY | 2024-01-02 16:21 | XMS_ITS | Encounter Summary ---
Author Organization Neha Physician Silvia bansal Address [address] [place] [address] Phone Care Team Providers Care Travel Consultant Name Role Phone Unavailable Primary Care Provider Unavailabl e Encounter Details Date Type Department Care Team (Late st Contact Info) Description 11/11/2023 Telephone [employer] [address] [place] [address] Mercy Bo RN Social History Tobacco Use [...] Description 02/09/2024 11:00 AM MDT Office Visit [employer] [address] [place] [address] Sybil Steinberg MD [address] [facility] [address] [place] [address] documented as of this encounter Visit Diagnoses Not on filedocumented in this encounter
--- OUTSIDE RECORDS SUMMARY | 2024-01-02 16:21 | XMS_ITS | Encounter Summary ---
Author Organization Neha Physician Silvia bansal Address [address] [place] [address] Phone Care Team Providers Care Supervisor Plastering Name Role Phone Unavailable Primary Care Provider Unavailabl e Encounter Details Date Type Department Care Team (Late st Contact Info) Description 09/29/2023 11:00 AM [facility] Office Visit [employer] [address] [place] [address] Sybil Steinberg MD [address] [place] [address] Abdominal [facility]) (Primary Dx) Social History Tobacco Use [...] on difficid Was seen in ER at [place] where again Difficid was prescribed. He still [...] [facility]. [facility] was noted that this abscess would not amenable to IR drainage due to location. He signed out AGAINST MEDICAL ADVICE at that time. He also has history of chronic low back pain with finding of lumbar stenosis and has been seen by neurosurgery. He was admitted to [facility] from 03/27 - 03/30/23 with [...] ID in 2 weeks ( [place] ) call soonerif issues. [facility] documented in this encounter Plan of Treatment Upcoming Encounters Date Type Department Care Team (Late st Contact Info) Description 02/09/2024 11:00 AM MDT Office Visit [facility] [address] [facility] [address] [place], [place] [address] Sybil Steinberg MD [address] [facility] [address] [place] [address] documented as of this encounter Visit Diagnoses Diagnosis Abdominal abscess (CMS-HCC)- Primary documented in this encounter
--- OUTSIDE RECORDS SUMMARY | 2024-01-02 16:21 | XMS_ITS | Continuity of Care Document ---
Author Organization [facility] Address [address] [place] [address] Phone Care Team Providers Care Golf Caddy Name Role Phone Linwood DAVID, Amisathya Unavailable [...] C, [address], [place], [address], [place] tel:[phone] [facility] No Information 3 Mehbod Amir. [facility] [place], [address] [place] [address] [address], [place], [place], [address] , [place]. tel:[phone] Office/Outpat ient Visit,Est, Mod [facility], [address], [place], [address], [place] tel:[phone] [facility] Spinal stenosis, lumbar region with neurogenic claudication 3 Mehbod Amir. [facility] [place], [address] [place] [address] [address], [facility] [place], [address] , [place]. tel:[phone] Referring Provider: Juan Pablo Amaya, [facility] [address], [place], [address]. tel:[phone] Office/Outpat ient Visit,[facility], [facility], [address], [place], [id number], [place] tel:[phone] [facility] Low back painSpinal stenosis, lumbar region with neurogenic claudication 1 Kenzie Leary. [facility], [address], [address], [place], [address] , [place]. tel:[phone] Referring Provider: Juan Pablo Amaya, [facility] [address], [place], [address]. tel:[phone] Family History Family Member Type Diagnosis Age At Onset No Information Payers Payer name Insurance type Covered democrat ID Authoriza tion(s) [employer] Medicare Gold Choice Ramesh CONTRERAS [id number] Social History Type Description Quantity Date [...]
--- OUTSIDE RECORDS SUMMARY | 2024-01-02 16:21 | XMS_ITS | Encounter Summary ---
Author Organization Neha Physician Silvia bansal Address [address] [place] [address] Phone Care Team Providers Care Environmental Services Associate Name Role Phone Unavailable Primary Care Provider Unavailabl e Encounter Details Date Type Department Care Team (Late st Contact Info) Description 10/06/2023 9:00 AM MDT Office Visit [employer] [address] [place] [address] Amarilys Lamb PA [address] [place] [address] Clostridium difficile colitis (Primary Dx); Abdominal abscess ([facility]) Social History Tobacco Use Types Packs/Day Years [...] [facility]. [facility] was noted that this abscess would not amenable to IR drainage due to location. He signed out AGAINST MEDICAL ADVICE at that time. He also has history of chronic low back pain with finding of lumbar stenosis and has been seen by neurosurgery. He was admitted to [facility] from 03/27 - 03/30/23 with acute sigmoid [...] day course More recently presented again to [place] with recurrent C.diff. Fidaxomicin again prescribed. Doing [...] Description 02/09/2024 11:00 AM MDT [facility] [address] [place], [place] [address] Sybil Steinberg MD [address] [facility] [address] [place] [address] documented as of this encounter Visit Diagnoses Diagnosis Clostridium difficile colitis- Primary Abdominal abscess (CMS-HCC) documented in this encounter
--- OUTSIDE RECORDS SUMMARY | 2024-01-02 16:21 | XMS_ITS | Encounter Summary ---
Author Organization Neha Physician Silvia bansal Address [address] [place] [address] Phone Care Team Providers Care Buffing Wheel Former Automatic Name Role Phone Unavailable Primary Care Provider Unavailabl e Encounter Details Date Type Department Care Team (Late st Contact Info) Description 11/17/2023 11:00 AM MDT Office Visit [employer] [address] [employer] [address] [place] [address] Sybil Steinberg MD [address] [employer] [place] [address] Recurrent Clostridium difficile infection (Primary [...] [facility] a [facility]. [facility] was noted that this abscess would not amenable to IR drainage due to location. He signed out AGAINST MEDICAL ADVICE at that time. He also has history of chronic low back pain with finding of lumbar stenosis and has been seen by neurosurgery. He was admitted to [facility] from 03/27 - 03/30/23 with acute [...] Description 02/09/2024 11:00 AM MDT Office Visit [facility] [address] [facility] [address] [place] [address] Sybil Steinberg MD [address] [facility] [address] [place] [address] documented as of this encounter Visit Diagnoses Diagnosis Recurrent Clostridium difficile infection- Primary documented in this encounter
--- OUTSIDE RECORDS SUMMARY | 2024-01-02 16:21 | XMS_ITS | Encounter Summary ---
Author Organization Neha Physician Silvia bansal Address [address] [place] [address] Phone Care Team Providers Care Operations Plant Attendant Name Role Phone Unavailable Primary Care Provider Unavailabl e Encounter Details Date Type Department Care Team (Late st Contact Info) Description 11/30/2023 9:00 AM MDT Office Visit [employer] [address] [place] [address] Amarilys Lamb PA [address] [place] [address] Clostridium difficile colitis (Primary Dx) [...] on a lumbar [facility]. [facility] and it was noted that this abscess would not be amenable to IR drainage due to location. He signed out AMA at that time. He also has history of chronic low back pain with finding of lumbar stenosis and has been seen by neurosurgery. He was admitted to [facility] from 03/27 - 03/30/23 with acute [...] of Fidaxomicin Presented again shortly thereafter to [place] with recurrent C.diff. Fidaxomicin again prescribed. Maintained [...] [facility] [address] [facility] [address] [place] [address] Sybil Steinberg MD [address] [facility] [address] [place], [place] [address] documented as of this encounter Visit Diagnoses Diagnosis Clostridium difficile colitis- Primary documented in this encounter
--- OUTSIDE RECORDS SUMMARY | 2024-01-02 16:21 | XMS_ITS | Encounter Summary ---
Author Organization Neha Physician Silvia bansal Address [address] [place] [address] Phone Care Team Providers Care Golf Ball Marker Name Role Phone Unavailable Primary Care Provider Unavailabl e Encounter Details Date Type Department Care Team (Late st Contact Info) Description 11/24/2023 Telephone [employer] [address] [place] [address] Mercy Bo RN Social History Tobacco Use [...] daily x 1 month Left message on [employer] indicating new RX called to pharmacy of record vancomycin prolonged taper. Called with verbal order to [facility] pharmacist Laura at [facility] documented in this encounter Plan of Treatment Upcoming Encounters Date Type Department Care Team (Late st Contact Info) Description 02/09/2024 11:00 AM MDT Office Visit [employer] [address] [place] [address] Sybil Steinberg MD [address] [place] [address] documented as of this encounter Visit Diagnoses Not on filedocumented in this encounter
--- OUTSIDE RECORDS SUMMARY | 2024-01-02 16:21 | XMS_ITS | Encounter Summary ---
Author Organization Neha Physician Silvia bansal Address [address] [place] [address] Phone Care Team Providers Care Brim Blocker Name Role Phone Unavailable Primary Care Provider Unavailabl e Encounter Details Date Type Department Care Team (Late st Contact Info) Description 10/21/2023 Telephone [employer] [address] [place] [address] Mercy Bo RN Social History Tobacco Use [...] Received a voicemail from Galen DSOUZA with [facility] Patient is currently in patient at [facility] having had a sigmoidectomy. They are calling on treatment for C diff following his surgery. Dr Steinberg is out of the clinic currently. Dr Martin stated that no treatment of C diff is needed. Per office visit note, Patient has been treated until his surgery date to prevent relapse. Spoke to staff at [facility] and they are going to page this message out to Galen DSOUZA. documented in this encounter Plan of Treatment Upcoming Encounters Date Type Department Care Team (Late st Contact Info) Description 02/09/2024 11:00 AM MDT Office Visit [employer] [address] [place] [id number] Sybil Steinberg MD [address] [facility] [address] [place] [address] documented as of this encounter Visit Diagnoses Not on filedocumented in this encounter
--- OUTSIDE RECORDS SUMMARY | 2024-01-02 16:22 | XMS_ITS | Encounter Summary ---
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] Procedures NH COLONOSCOPY W/WO BRUSH/WASH NH LAP,SURG,COLECTOMY, PARTIAL, W/ANAST NH LAP,SURG,COLECTOMY,W/REMVL TERM ILEUM NH LAP,SURG,COLECTOMY,W/END COLOST & CLOSUR NH LAP,SURG,COLECTOMY,W/ANAST NH LAP, SURG, COLECTOMY, W/ANAST, W/COLOSTOMY NH LAP,SURG,COLECTOMY,TOTAL,W/O PROCTECTOMY NH LAP,SURG,COLECTOMY,TOTAL,W/PRO CTECTOMY NH LAP,SURG,COLECT,TOT,W/PROCTECT ,W/ILEOST NH PART REMOVAL COLON W ANASTOMOSIS NH PART REMOVAL COLON W COLOSTOMY NH PART REMOVAL COLON W END COLOSTOMY NH PART REMOVAL COLON W OSTOMY/MUCOFIST NH PART REMOVAL COLON W COLOPROCTOSTOMY NH PART REMOVAL COLON W COLOPROC,COLOST NH PART REMOVAL COLON,ABD/TRANSANAL TRAVIS NH REMOVAL COLON/ILEOSTOMY ZZC REMOVAL COLON/ILEOSTOMY,CONTINENT NH REMOVAL COLON/PROCTECTOMY/ILEOSTOMY ZZC REMOVAL COLON/PROCTEC/ILEOSTOMY CONT ZZC REMOVAL COLON/PROCTEC/ ILEOANAL ANAST NH REMOVAL COLON/PROCTEC/ILEOANAL ANAST POUCH NH REMVL COLON/TERM ILEUM/ILEOCOLOSTOMY Intraoperative colonoscopy robotic sigmoid colectomy possible open, possible stoma [facility] [address] [place] [address] Referral ID Status Reason Start Date Expiration Date Visits Re quested Visits Authorized [id number] 1 1 Encounter Details Date Type Department Care Team (Late st Contact Info) Description 10/20/2023 1:30 PM CDT Anesthesia Event [facility] [address] [place] [phone] Brandon Gold MD [facility] [address] [place] [address] Anesthesia Record Procedure Summary Procedure Name Responsible Anesthesiologist Anesthesia Start Time Anesthesia Stop Time Intraoperative colonoscopy (Rectum) Brandon Gold MD 10/20/23 1330 10/20/23 1807 Events Date Time Event Comment 10/20/2023 1232 MUNICIPAL MAINTENANCE WORKER Ready for Procedure 1330 An Start 1333 An Start Data 1334 AN REASSESS I attest that I have identified and re-evaluated the patient immediately before the induction of anesthesia and I am satisfied that the anesthetic plan is suitable for the patient's condition and procedure. The first vital signs recorded are pre- induction. Layla Abdullahi APRN MUNICIPAL MAINTENANCE WORKER 1343 An Induction 1343 MD Present [...] Stop Electronically signed by Margarito Thapa APRN MUNICIPAL MAINTENANCE WORKER on October 20, 2023 6:07 PM [...] Grade View: 1; Adjucts: Stylet; Placement Person: MUNICIPAL MAINTENANCE WORKER; Attempts: 1 10/20/23 1346 by Layla Abdullahi APRN CRNA 10/20/23 1803 by Margarito Thapa APRN CRNA Gastric Tube 10/20/23; 1357; Decompression 10/20/23 1357 by Layla Abdullahi APRN CRNA 10/20/23 1816 by Dana Hull RN Urethral Catheter 10/20/23; 1426; No; Surgical procedure; 16 fr 10/20/23 1426 by Xenia Leal RN 10/21/23 1447 by Milli Morales RN Closed/Suction Drain 10/20/23; 1716; LLQ ; Bulb; 19 Egyptian 10/20/23 1716 by Xenia Leal RN 10/22/23 [...] PM Staff - Anesthesiologist: Layla Abdullahi APRN MUNICIPAL MAINTENANCE WORKER Performed By: MUNICIPAL MAINTENANCE WORKER Consent for Airway Urgency: elective Indications [...] and realistic alternatives discussed. Questions answered and patient/ict sales representative(s) expressed understanding. - Discussed: - Discussed [...] ??Layla Abdullahi APRN CRNA ? Performed By: MUNICIPAL MAINTENANCE WORKER Consent for Airway ? Urgency: elective [...] Time: 10/20/2023 1:46 PM Brandon Gold MD [facility] documented in this encounter Visit Diagnoses [...] mg documented in this encounter Care Teams Protective Signal Repairer Helper Relationship Specialty Start Date End Date Juan Pablo Buckley MD PCP - General Family Medicine 10/20/23 documented as of this encounter
--- OUTSIDE RECORDS SUMMARY | 2024-01-02 16:22 | XMS_ITS | Encounter Summary ---
Author Organization [facility] Address [address] [place] [id number] Care Team Providers Care Pv Installer Tech Name Role Phone Juan Pablo Buckley MD Primary Care Provider [phone] Encounter Details Date Type Department Care Team [...] on filedocumented in this encounter Care Teams Pv Installer Tech Relationship Specialty Start Date End Date Juan Pablo Buckley MD PCP - General Family Medicine 10/20/23 documented as of this encounter
--- OUTSIDE RECORDS SUMMARY | 2024-01-02 16:22 | XMS_ITS | Encounter Summary ---
Author Organization [facility] Address [address] [place] [address] Care Team Providers Care Glost Kiln Placer Name Role Phone Juan Pablo Buckley MD Primary Care Provider [phone] Encounter Details Date Type Department Care Team (Late st Contact Info) Description 11/19/[address] [facility] [address] [place] [phone] Galen Moffett PA-C [facility] [address] [place] [id number] Fatigue (Primary Dx) Social History Tobacco Use [...] fatigue documented in this encounter Care Teams Glost Kiln Placer Relationship Specialty Start Date End Date Juan Pablo Buckley MD PCP - General Family Medicine 10/20/23 documented as of this encounter
--- OUTSIDE RECORDS SUMMARY | 2024-01-02 16:22 | XMS_ITS | Encounter Summary ---
Author Organization [facility] Address [address] [place] [id number] Care Team Providers Care Honey Producer Name Role Phone Sarina Mello MD Primary Care Provider [phone] Reason for Referral * Home Health Therapies & Aides (Routine: Next available opening) - Pending Review Specialty Diagnoses / Procedures Referred By Henry t Referred To Contact Diagnoses S/P colectomy Kalyn Villagomez PA-C [facility] [address] [facility] [address] [address] Referral ID Status Reason Start Date Expiration Date V isits Requested Visits Authorized [id number] Pending Review 10/27/2023 10/26/2024 1 1 Question [...] 10/27/2023 Provider to follow patient SARINA MELLO [[id number]] Comments Your provider has ordered home health services. If you have not been contacted within 2 days of your discharge please call the selected Home Care agency listed on your Discharge document. If a Home Care agency is NOT listed, please call [phone]. 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] Procedures ID COLONOSCOPY W/WO BRUSH/WASH ID LAP,SURG,COLECTOMY, PARTIAL, W/ANAST ID LAP,SURG,COLECTOMY,W/REMVL TERM ILEUM ID LAP,SURG,COLECTOMY,W/END COLOST & CLOSUR ID LAP,SURG,COLECTOMY,W/ANAST ID LAP, SURG, COLECTOMY, W/ANAST, W/COLOSTOMY ID LAP,SURG,COLECTOMY,TOTAL,W/O PROCTECTOMY ID LAP,SURG,COLECTOMY,TOTAL,W/PRO CTECTOMY ID LAP,SURG,COLECT,TOT,W/PROCTECT ,W/ILEOST ID PART REMOVAL COLON W ANASTOMOSIS ID PART REMOVAL COLON W COLOSTOMY ID PART REMOVAL COLON W END COLOSTOMY ID PART REMOVAL COLON W OSTOMY/MUCOFIST ID PART REMOVAL COLON W COLOPROCTOSTOMY ID PART REMOVAL COLON W COLOPROC,COLOST ID PART REMOVAL COLON,ABD/TRANSANAL TRAVIS ID REMOVAL COLON/ILEOSTOMY ZZ[facility] REMOVAL COLON/ILEOSTOMY,CONTINENT ID REMOVAL COLON/PROCTECTOMY/ILEOSTOMY ZZC REMOVAL COLON/PROCTEC/ILEOSTOMY CONT ZZC REMOVAL COLON/PROCTEC/ ILEOANAL ANAST ID REMOVAL COLON/PROCTEC/ILEOANAL ANAST POUCH ID REMVL COLON/TERM ILEUM/ILEOCOLOSTOMY Intraoperative colonoscopy robotic sigmoid colectomy possible open, possible stoma [facility] [address] [place] [address] Referral ID Status Reason Start Date Expiration Date Visits Re quested Visits Authorized [id number] 1 1 Encounter Details Date Type Department Care Team (Latest Contact Info) Description 10/20/2023 10:11 AM CDT - 10/27/2023 3:38 PM CDT Hospital Encounter [place] [address] [facility] [address] [place] [id number] Tammy Montoya MD [facility] [address] [place] [address] S/P colectomy (Primary Dx) Discharge Disposition: Home-Health [...] Villagomez PA-C - 10/27/2023 1:28 PM CDT [facility] Discharge Summary Theodore Wu Age: [age] year old Date of : 1945 Date of Admission: 10/20/2023 Date of Discharge:: 10/27/2023 Admitting Physician: Tammy Montoya MD Discharge Physician: Tammy Montoya MD PCP: Sarina Mello Disposition: Patient discharged from [facility] to home in stable condition. [...] No DVT No PE No CVA No NH No Enterocutaneous fistula No Peripheral nerve injury [...] Your home care referral was sent to [facility] If you haven't heard from them within the next 24-48 hours, Please call them at [phone] documented in this encounter Medications at Time [...] and faxed them the pt's discharge orders P:[phone] F: [phone]. Sw will continue to be available as needed until discharge. TATIANNA Alvarenga, TEST DATA DEVELOPER Inpatient Care Coordination [facility] [phone] * Lexie Bang, PT - 10/27/2023 1:52 [...] goal(s). See goals on Care Plan in [facility] electronic health record for goal details. Goals [...] questions/paging, please contact the CRS office at [phone]. Galen Moffett PA-C [facility] [...] needed, minimize narcotics - Encourage ambulation - [facility] for ppx Disposition: Expected discharge in 1-2 days. Barriers to discharge: Tolerating low fiber diet, pain controlled with oral meds, return of bowel function. For questions/paging, please contact the CRS office at [phone]. Galen Moffett PA-C [facility] Associated attestation - Laura Rojo MD - 10/26/2023 1:08 PM CDT Physician Attestation I saw and evaluated Theodore Wu as part of a shared BRUSH CLEARER SURVEYING/PA visit. I personally reviewed the vital signs, [...] needed, minimize narcotics - Encourage ambulation - [facility] for ppx For questions/paging, please contact the CRS office at [phone]. Galen Moffett PA-C [facility] CRS Staff. Seen and examined independently. Agree with above. I performed a history and physical examination of the patient and discussed their management with the physician medical receptionist medical assistant. I reviewed the physician assistants note and agree with the documented findings and plan of care. Adán Mcneal MD FACS FASCRS Colorectal Surgeon [facility] [address], [address] [place] [address] T: [phone] F: [phone] Pager: [phone] [email or web address] * Adán Mcneal MD - 10/24/2023 [...] Colorectal Surgeon [facility] [address], [address] [place] [address] T: [phone] F: [phone] Pager: [phone] [email or web address] Interval History: Xray demonstrating some ileus yesterday. [...] Colorectal Surgeon [facility] [address], [address] [place] [address] T: [phone] F: [phone] Pager: [phone] [email or web address] Interval History: Hypertensive overnight. Reports [...] needed, minimize narcotics - Encourage ambulation - [facility] for ppx Disposition: Expected discharge in 1-2 days. Barriers to discharge: Tolerating low fiber diet, pain controlled with oral meds, return of bowel function. Clinically Significant Risk Factors # Financial/Environmental Concerns: For questions/paging, please contact the CRS office at [phone]. Kalyn Villagomez PA-C Colon & Rectal Surgery [...] Evaluation Time PT Eval, Moderate Complexity Minutes (97166) 10 Physical Therapy Goals PT Frequency Daily PT Predicted Duration/Target Date for Goal Attainment 10/27/23 PT Goals Bed Mobility;Transfers;Gait PT: Bed Mobility Supine to/from sit;Rolling;Within precautions;Independent PT: Transfers Modified independent;Bed to/from chair;Sit to/from stand;Assistive device;Within precautions PT: Gait Supervision/stand-by assist;Rolling walker;150 feet Interventions Interventions Quick Adds Therapeutic Activity;Gait Training Therapeutic Activity Therapeutic Activities: dynamic activities to improve functional performance Minutes (48295) 8 Symptoms Noted During/After Treatment Increased pain;Fatigue [...] of session. Gait Training Gait Training Minutes (86671) 8 Symptoms Noted During/After Treatment (Gait Training) [...] 102 10/21/2023 Lab Results Component Value Date AELIDA 9.5 10/21/2023 Lab Results Component Value Date [...] needed, minimize narcotics - Encourage ambulation - [facility] for ppx For questions/paging, please contact the CRS office at [phone]. Kalyn Villagomez PA-C [facility] Associated attestation - Laura Rojo MD - 10/21/2023 6:45 PM CDT Physician Attestation I saw and evaluated Theodore Wu as part of a shared BRUSH CLEARER SURVEYING/PA visit. I personally reviewed the vital signs, [...] in Home spouse Current Living Arrangements house ([facility]) Home Accessibility no concerns Self-Care Usual [...] weakness Bed Mobility Bed Mobility supine-sit;sit-supine Supine-Sit [place] (Bed Mobility) minimum assist (75% patient effort) Sit-Supine [place] (Bed Mobility) minimum assist (75% patient effort) Transfers Transfers sit-stand transfer;toilet transfer Sit-Stand Transfer Sit-Stand [place] (Transfers) supervision Toilet Transfer [place] Level (Toilet Transfer) supervision Balance Balance Comments Benefits from FWW, history of falls. Activities of Daily Living BADL Assessment/Intervention lower body dressing;grooming Lower Body Dressing Assessment/Training [place] Level (Lower Body Dressing) contact guard assist Grooming Assessment/Training [place] Level (Grooming) supervision Clinical Impression Criteria for [...] Evaluation Time OT Eval, Low Complexity Minutes (92990) 10 OT Goals Therapy Frequency (OT) Daily [...] Management Self-Care/Home Mgmt/ADL, Compensatory, Meal Prep Minutes (45797) 8 Symptoms Noted During/After Treatment (Meal Preparation/Planning [...] at sink. Therapeutic Activities Therapeutic Activity Minutes (51429) 29 Symptoms noted during/after treatment increased pain;fatigue [...] Communication Assessment Patient's communication style: spoken language (Martiniquais or Bilingual) Hearing Difficulty or Deaf: no [...] Chemical Dependency Status: Values/Beliefs: Spiritual, Cultural Beliefs, Restorationism Practices, Values that affect care: Additional Information: [...] will transport at discharge. Referral sent to [facility] for home PT. Addendum Pt accepted by [facility] for home PT. AVS updated. Mili Proctor/TATIANNA Coley LGSW Inpatient Care Coordination Emergency Room Clothes Presser/Float [phone] Mili Proctor LGSW documented in this encounter [...] and complete assessments, please see documentation flowsheets. [phone] Pertinent assessments: Pt A&Ox4. SBA with walker [...] shift note. Outcome: Progressing Flowsheets (Taken 10/27/2023 0503) Outcome Evaluation: Pt is passing gas & [...] shift note. Outcome: Progressing Flowsheets (Taken 10/26/2023 3715) Outcome Evaluation: ambulating in [place], pain controlled [...] note. Outcome: Not Progressing Flowsheets (Taken 10/22/2023 9489) Outcome Evaluation: no gas yet, intermittent abdominal [...] and complete assessments, please see documentation flowsheets. [id number] Pertinent assessments: POD#2. Pt A&Ox4. On 2L NC. Afebrile.Elevated BP other VSS. C/O pain, nausea, & hiccups given prn oxy, one time order of baclofen, & zofran odt. PIV infusing LR at 75mls/hr. MARIZA drain in place with bloody output. B Major Shift Events: After taking oxy & tylenol Pt had a small emesis episode witnessed by fire extinguisher charger. In addition Pt was found to [...] shift note. Outcome: Progressing Flowsheets (Taken 10/21/2023 5148) Outcome Evaluation: Velazquez removed, Capno D/C'd. Pain [...] Fall Risk Recent Flowsheet Documentation Taken 10/21/2023 0837 by Milli Morales RN Safety Promotion/Fall Prevention: [...] Flowsheet Documentation Taken 10/21/2023909 by Milli Morales RNtechnician plant and maintenance Interventions: medication (see MAR) Taken 10/21/2023824 by Milli Morales RNtechnician plant and maintenance Interventions: medication (see MAR) Goal: Readiness for [...] Flowsheet Documentation Taken 10/21/2023909 by Milli Morales RNtechnician plant and maintenance Interventions: medication (see MAR) Taken 10/21/2023824 by Milli Morales RNtechnician plant and maintenance Interventions: medication (see MAR) Goal: Nausea and [...] and complete assessments, please see documentation flowsheets. [id number] Pertinent assessments: POD#1. Pt A&Ox4. On 3L [...] BS, not passing gas. Velazquez in place. AMRIZA with bloody output. IV dilaudid & scheduled [...] Jacobs MD - 10/20/2023 6:[address] [facility] Brief Operative Note Pre-operative diagnosis: Colonic [...] pneumatic leak testing Surgeon: Maddi Montoya MD Business Area Director: Kalyn Villagomez PA-C A skilled trust operations assistant was necessary due to the technical complexity of the procedure and for the patient's safety. The medical receptionist medical assistant helped me with positioning, retraction, visualization of the operative field, meticulous wound closure and moreover helped to complete the procedures in a technicallysafe and efficient manner. Second Business Area Director: Milli Jacobs MD (colorectal surgery fellow) Anesthesia: [...] gown and gloves. We placed a 19 Salvadorean Lit channel drain through the left most [...] interview completed by pre-admitting RN or pre- op/HOUSEKEEPER NANNY. Reviewed by pharmacist, including [facility] dispense records, [facility] Everywhere, and chart review. Jeffery Menard, Pharm.D., [facility] Last Reviewed by Lesa Reyes RN on 10/12/2023 at 4:31 PM SCIENTIFIC INFORMATICS PROJECT LEADER Med List Medication Sig Last Dose acetaminophen [...] LAB - BLOOD ORDER CHANEL RH LABORATORY [facility] Acute Care Lab [address] Lab (1st floor, no room number) [place] [address] * (ABNORMAL) CBC with platelets (10/25/2023 7:49 AM CDT) [facility] WBC Count 9.8 4.0 - 11.0 10e3/uL [...] LAB - BLOOD ORDERABL ES RH LABORATORY [facility] Acute Care Lab [address] Lab (1st floor, no room number) [place] [address] * Basic metabolic panel (10/25/2023 7:49 [...] LAB - BLOOD ORDERABL ES RH LABORATORY [facility] Acute Care Lab [address] Lab (1st floor, no room number) [place] [address], [facility] * XR Abdomen Port 1 View (10/23/2023 4:14 PM CDT) Anatomical Region Laterality Modality Abdomen/Pelvis Digital Radiogra phy 10/23/2023 4:14 PM CDT Impressions 10/23/2023 7:05 PM CDT IMPRESSION: Enteric tube in the body the stomach. Overall bowel loops not well assessed on this study for NG tube placement. Narrative 10/23/2023 7:05 PM CDT EXAM: XR ABDOMEN PORT 1 VIEW LOCATION: [facility] DATE: 10/23/2023 INDICATION: NG tube placement COMPARISON: None. Procedure Note Venkat Martinez MD - 10/23/2023 EXAM: XR ABDOMEN PORT 1 VIEW LOCATION: [facility] DATE: 10/23/2023 INDICATION: NG tube placement [...] MD LAB - BLOOD ORDERABL ES LABORATORY [facility] Acute Care Lab [address] [facility] Lab (1st floor, no room number) [place] [address] * XR Abdomen 2 Views (10/23/2023 [...] CDT EXAM: XR ABDOMEN 2 VIEWS LOCATION: [facility] DATE: 10/23/2023 INDICATION: Evaluate for ileus. COMPARISON: CT abdomen and pelvis 08/18/2023. Procedure Note Jillian Nicole MD - 10/23/2023 EXAM: XR ABDOMEN 2 VIEWS LOCATION: [facility] DATE: 10/23/2023 INDICATION: Evaluate for ileus. [...] MD LAB - BLOOD ORDERABL ES LABORATORY [facility] Acute Care Lab [address] Lab (1st floor, no room number) [place] [address], [facility] * Platelet count (10/23/2023 8:45 AM CDT) Platelet Count 320 150 - 450 10e3/uL 10/23/2023 9:00 AM CDT LABORATORY Blood STRUCTURE OF LEFT UPPER LIMB / Unknown Venipuncture / Unknown 10/23/2023 8:45 AM CDT 10/23/2023 8:57 AM CDT Tammy Montoya MD LAB - BLOOD ORDER CHANEL LABORATORY [facility] Acute Care Lab [address] Lab (1st floor, no room number) [place] [address] * (ABNORMAL) Glucose by meter (10/22/2023 6:13 AM CDT) GLUCOSE BY METER POCT 149(H) 70 - 99 mg/dL 10/22/2023 6:20 AM CDT LABORATORY POC Blood, Capillary BLOOD SPECIMEN / Unknown 10/22/2023 6:13 AM CDT 10/22/2023 6:20 AM CDT Tammy ALMARAZ - BEAKER POCT Performing Organization Address [facility]/ZIP Co de Phone Number LABORATORY [facility] [address] Lab (1st floor, no room number) [place] [address] * (ABNORMAL) Glucose by meter (10/21/2023 6:35 AM CDT) GLUCOSE BY METER POCT 133(H) 70 - 99 mg/dL 10/21/2023 6:42 AM CDT LABORATORY POC Blood, Capillary BLOOD SPECIMEN / Unknown 10/21/2023 6:35 AM CDT 10/21/2023 6:42 AM CDT Tammy ALMARAZ - BEAKER POCT LABORATORY [facility] Care Lab [address] Lab (1st floor, no room number) [address] * Phosphorus (10/21/2023 6:22 AM CDT) Phosphorus 2.9 2.5 - 4.5 mg/dL 10/21/2023 6:58 AM CDT RH LABORATORY Blood STRUCTURE OF RIGHT UPPER LIMB / Unknown Venipuncture / Unknown 10/21/2023 6:22 AM CDT 10/21/2023 6:31 AM CDT Tammy Montoya MD LAB - BLOOD ORDER CHANEL LABORATORY [facility] Acute Care Lab [address] Lab (1st floor, no room number) [address] * Magnesium (10/21/2023 6:22 AM CDT) Magnesium 1.8 1.7 - 2.3 mg/dL 10/21/2023 6:58 AM CDT RH LABORATORY Blood STRUCTURE OF RIGHT UPPER LIMB / Unknown Venipuncture / Unknown 10/21/2023 6:22 AM CDT 10/21/2023 6:31 AM CDT Tammy Montoya MD LAB - BLOOD ORDER CHANEL LABORATORY [facility] Acute Care Lab [address] Lab (1st floor, no room number) [address] * (ABNORMAL) CBC with platelets (10/21/2023 [...] LAB - BLOOD ORDER CHANEL RH LABORATORY [facility] Acute Care Lab [address] Lab (1st floor, no room number) [place] [address] * (ABNORMAL) Basic metabolic panel (10/21/2023 6:22 AM CDT) [facility] Sodium 137 135 - 145 mmol/L 10/21/2023 [...] - BLOOD ORDER CHANEL Performing Organization Address City/[facility]/ZIP Co de Phone Number LABORATORY [facility] Acute Care Lab [address] Lab (1st floor, no room number) [address] * Platelet count (10/20/2023 8:56 PM CDT) Platelet Count 315 150 - 450 10e3/uL 10/20/2023 9:10 PM CDT RH LABORATORY Blood STRUCTURE OF LEFT UPPER LIMB / Unknown Venipuncture / Unknown 10/20/2023 8:56 PM CDT 10/20/2023 9:03 PM CDT Tammy Montoya MD LAB - BLOOD ORDER CHANEL [facility] Acute Care Lab [address] Lab (1st floor, no room number) [address] * Surgical Pathology Exam (10/20/2023 1:59 PM CDT) Case Report Surgical Pathology Report ? Case: [id number] ? Authorizing Provider: ??Tammy Montoya MD ?? Collected: ? 10/20/2023 01:59 PM ? Ordering Location: ? [facility] ?? Received: ?10/20/2023 02:44 PM [...] Colonic diverticular abscess [ICD-10-CM] 10/22/2023 2:54 PM [facility] Gross Description A(1). Large [...] flowers-pink and contains a normal folding pattern. Wet Process Head Miller sections are submitted as follows: B1-proximal margin, en face B2-distal margin, en face K7-U8-igngpf diverticula and mucosa B7-additional portion of bowel mucosa (MEET Oliveira) 10/22/2023 2:54 PM [facility] Microscopic Description Microscopic examination was performed. 10/22/2023 2:54 PM [facility] Performing Labs The technical component of this testing was completed at [facility] 10/22/2023 2:54 PM [facility] Case Images 10/22/2023 2:54 PM [facility] Polyp ASCENDING COLON STRUCTURE / Unknown 10/20/2023 1:59 PM CDT 10/20/2023 2:44 PM CDT Tissue specimen (specimen) SIGMOID COLON PART / Unknown 10/20/2023 4:32 PM CDT 10/20/2023 6:13 PM CDT Tammy ALMARAZ - KAYKAY LOPEZ [facility] Acute Care Lab [address] Lab (1st floor, no room number) [place] [address] * COLONOSCOPY (10/20/2023 1:02 PM CDT) [facility] Signature COLONOSCOPY [facility] Patient Name: Theodore MontgomeryLucas Wu ? [...] and ?oxygen saturations were monitored continuously. The ?Alma Johns Adult Colonoscope, Model # CF-XP362L, ?Censitrac # [id number] was introduced through the ?anus and advanced [...] Procedure Code(s): ? --- Professional --- ? 39836, Colonoscopy, flexible; with removal of tumor(s), polyp(s), or ? other lesion(s) by snare technique CPT copyright 2021 [employer]. All rights reserved. The codes documented in this report are preliminary and upon wood car builder review may be revised to meet current compliance requirements. TAMMY MONTOYA MD 10/22/2023 5:35:05 PM I was physically present for the entire viewing portion of the exam. TAMMY MONTOYA MD Number of Addenda: 0 Note Initiated On: 10/20/2023 1:02 PM MRN: ?[id number] Procedure Date: ? 10/20/2023 1:02:04 PM Scope [...] CDT [facility] Montoya MD [facility] Acute Care Lab [address] Lab (1st floor, no room number) [place] [address], [facility] * EKG CARDIAC - HIM [...] analgesic side effects. Hold while on IV PARCEL POST ORDER CLERK or with regular IV opioid dosing. [...] analgesic side effects. Hold while on IV PARCEL POST ORDER CLERK or with regular IV opioid dosing. [...] analgesic side effects. Hold while on IV PARCEL POST ORDER CLERK or with regular IV opioid dosing. [...] analgesic side effects. Hold while on IV PARCEL POST ORDER CLERK or with regular IV opioid dosing. [...] analgesic side effects. Hold while on IV PARCEL POST ORDER CLERK or with regular IV opioid dosing. Or oxyCODONE (ROXICODONE) tablet 10 mgJump to med 10 mg, Oral, EVERY 4 HOURS PRN, severe pain, Starting on Wed10/20/23 at 2038, Hold oral PRN dose for analgesic side effects. Notify provider to assess for uncontrolled pain or analgesic side effects. Hold while on IV PARCEL POST ORDER CLERK or with regular IV opioid dosing. documented in this encounter Care Teams Honey Producer Relationship Specialty Start Date End Date Sarina Mello MD PCP - General Family Medicine 10/20/23 documented as of this encounter
--- OUTSIDE RECORDS SUMMARY | 2024-01-02 16:22 | XMS_ITS | Referral Summary ---
Author Organization [place] Address [address] [place] [address] Care Team Providers Care Paste Up Artist Name Role Phone Juan Pablo Buckley MD Primary Care Provider [phone] Encounters Date Type Department Care Team Description 11/19/2023 Orders Only [facility] [address] [place] [address] Galen Moffett PA-C Fatigue (Primary Dx) 10/20/2023 10:11 AM CDT - 10/27/2023 3:38 PM CDT Hospital Encounter [place] [address] [facility] [address] [place] [address] Tammy Montoya MD S/P colectomy (Primary Dx) Discharge Disposition: Home-Health Care Svc 10/20/2023 1:30 PM CDT Anesthesia Event [facility] [address] [place] [address] Brandon Gold MD 10/20/2023 Travel 10/20/2023 12:50 PM CDT - 10/20/2023 6:30 PM CDT Surgery [facility] [address] [place] [address] Tammy Montoya MD Intraoperative colonoscopy 10/12/2023 Travel [...] MD LAB - BLOOD ORDER [facility]ANEL LABORATORY [facility] Lab [address] Lab (1st floor, no room number) [place] [address], [facility] * Basic metabolic panel (10/25/2023 [...] MD LAB - BLOOD ORDERABL ES LABORATORY [facility] [address] Lab (1st floor, no room number) [place] [address], [facility] * (ABNORMAL) CBC with platelets [...] LAB - BLOOD ORDERABL ES RH LABORATORY [facility] [address] Lab (1st floor, no room number) [place] [address], [facility] * XR Abdomen Port 1 View (10/23/2023 4:14 PM CDT) Anatomical Region Laterality Modality Abdomen/Pelvis Digital Radiogra phy 10/23/2023 4:14 PM CDT Impressions 10/23/2023 7:05 PM CDT IMPRESSION: Enteric tube in the body the stomach. Overall bowel loops not well assessed on this study for NG tube placement. Narrative 10/23/2023 7:05 PM CDT EXAM: XR ABDOMEN PORT 1 VIEW LOCATION: [facility] DATE: 10/23/2023 INDICATION: NG tube placement COMPARISON: None. Procedure Note Venkat Martinez MD - 10/23/2023 EXAM: XR ABDOMEN PORT 1 VIEW LOCATION: [facility] DATE: 10/23/2023 INDICATION: NG tube placement [...] CDT EXAM: XR ABDOMEN 2 VIEWS LOCATION: [facility] DATE: 10/23/2023 INDICATION: Evaluate for ileus. COMPARISON: CT abdomen and pelvis 08/18/2023. Procedure Note Jillian Nicole MD - 10/23/2023 EXAM: XR ABDOMEN 2 VIEWS LOCATION: [facility] DATE: 10/23/2023 INDICATION: Evaluate for ileus. [...] Montoya MD LAB - BEAKER POCT LABORATORY [facility] Lab [address] Lab (1st floor, no room number) [address] * Phosphorus (10/21/2023 6:22 AM CDT) Phosphorus 2.9 2.5 - 4.5 mg/dL 10/21/2023 6:58 AM CDT RH LABORATORY Blood STRUCTURE OF RIGHT UPPER LIMB / Unknown Venipuncture / Unknown 10/21/2023 6:22 AM CDT 10/21/2023 6:31 AM CDT Tammy Montoya MD LAB - BLOOD ORDER CHANEL [facility] Lab [address] Lab (1st floor, no room number) [address] * Magnesium (10/21/2023 6:22 AM CDT) Magnesium 1.8 1.7 - 2.3 mg/dL 10/21/2023 6:58 AM CDT RH LABORATORY Blood STRUCTURE OF RIGHT UPPER LIMB / Unknown Venipuncture / Unknown 10/21/2023 6:22 AM CDT 10/21/2023 6:31 AM CDT Tammy Montoya MD LAB - BLOOD ORDER [facility] Acute [facility] Lab [address] [facility] Lab (1st floor, no room number) [place] [address] * Surgical Pathology Exam (10/20/2023 1:59 PM CDT) Case Report Surgical Pathology Report ? Case: [id number] ? Authorizing Provider: ??Tammy Montoya MD ?? Collected: ? 10/20/2023 01:59 PM ? Ordering Location: ? [facility] ?? Received: ?10/20/2023 02:44 PM [...] Sectioned and entirely submitted in 1 cassette. (EMET Oliveira) B(2). Large Intestine, Colon, Sigmoid, Sigmoid [...] flowers-pink and contains a normal folding pattern. Power Electronics Research Engineer sections are submitted as follows: B1-proximal margin, en face B2-distal margin, en face L2-N1-hejpxi diverticula and mucosa B7-additional portion of bowel mucosa (MEET Oliveira) 10/22/2023 2:54 PM CDT LABORATORY Microscopic Description Microscopic examination was performed. 10/22/2023 2:54 PM CDT LABORATORY Performing Labs The technical component of this testing was completed at [facility] Laboratory 10/22/2023 2:54 PM CDT RH LABORATORY Case Images 10/22/2023 2:54 PM CDT LABORATORY Polyp ASCENDING COLON STRUCTURE / Unknown 10/20/2023 1:59 PM CDT 10/20/2023 2:44 PM CDT Tissue specimen (specimen) SIGMOID COLON PART / Unknown 10/20/2023 4:32 PM CDT 10/20/2023 6:13 PM CDT Tammy Montoya MD LAB - [facility] LABORATORY [facility] Lab [address] Lab (1st floor, no room number) [place] [address] * ANE AIRWAY ETT PERFORMABLE (10/20/2023 1:46 PM CDT) Narrative Layla Abdullahi APRN CRNA - 10/20/2023 1:46 PM CDT Layla Abdullahi APRN RESOURCE CONSERVATIONIST ? 10/20/2023 ??1:52 PM Airway ? Patient location during procedure: OR ? Procedure Start/Stop Times: 10/20/2023 1:46 PM Staff - ? Anesthesiologist: ??Layla Abdullahi APRN RESOURCE CONSERVATIONIST ? Performed By: RESOURCE CONSERVATIONIST Consent for Airway ? Urgency: elective Indications [...] Time: 10/20/2023 1:46 PM Brandon Gold MD [place] ANESTHESIA * COLONOSCOPY (10/20/2023 1:02 PM CDT) [facility] COLONOSCOPY [facility] Patient Name: Theodore MontgomeryLucas Wu ? Procedure [...] and ?oxygen saturations were monitored continuously. The ?Going My Way Adult Colonoscope, Model # CF-OQ459Y, ?[employer] # [id number] was introduced through the ?anus and advanced [...] Procedure Code(s): ? --- Professional --- ? 17804, Colonoscopy, flexible; with removal of tumor(s), polyp(s), or ? other lesion(s) by snare technique CPT copyright 2021 [employer]. All rights reserved. The codes documented in this report are preliminary and upon web mobile designer review may be revised to meet current compliance requirements. TAMMY MONTOYA MD 10/22/2023 5:35:05 PM I was physically present for the entire viewing portion of the exam. TAMMY MONTOYA MD Number of Addenda: 0 Note Initiated On: 10/20/2023 1:02 PM MRN: ?[id number] Procedure Date: ? 10/20/2023 1:02:04 PM Scope [...] Advance Directives For more information, please contact: [phone] * Full Code (Latest Code Status on [...] patie nt/ legal decision maker Care Teams Paste Up Artist Relationship Specialty Start Date End Date Juan Pablo Buckley MD PCP - General Family Medicine 10/20/23
--- OUTSIDE RECORDS SUMMARY | 2024-01-02 16:22 | XMS_ITS | Clinical Summary ---
Author Organization [place] Address [address] [place] [address] Care Team Providers Care Flattening Machine Operator Name Role Phone Juan Pablo Buckley MD Primary Care Provider [phone] Allergies No known active allergies Medications Medication [...] Department Care Team Description 11/19/2023 Orders Only [facility] [address] [place] [address] Galen Moffett PA-C Fatigue (Primary Dx) 10/20/2023 1:30 PM CDT Anesthesia Event [facility] [address] [place] [address] Brandon Gold MD 10/20/2023 12:50 PM CDT - 10/20/2023 6:30 PM CDT Surgery [facility] [address] [place] [address] Tammy Montoya MD Intraoperative colonoscopy 10/20/2023 10:11 AM CDT - 10/27/2023 3:38 PM CDT Hospital Encounter [place] [address] [facility] [address] [place] [address] Tammy Montoya MD S/P colectomy (Primary Dx) Discharge Disposition: Home-Health Care [facility] 10/20/2023 Travel 10/12/2023 Travel from Last 3 [...] MD LAB - BLOOD ORDER [facility]ANEL LABORATORY [facility] Acute Care Lab [address] [facility] Lab (1st floor, no room number) [place] [address], [facility] * Basic metabolic panel (10/25/2023 7:49 [...] MD LAB - BLOOD ORDERABL ES LABORATORY [facility] Acute Care Lab [address] [facility] Lab (1st floor, no room number) [place] [address], [facility] * (ABNORMAL) CBC with platelets (10/25/2023 [...] MD LAB - BLOOD ORDERABL ES LABORATORY [facility] Lab [address] Lab (1st floor, no room number) [place] [address] * XR Abdomen Port 1 View (10/23/2023 4:14 PM CDT) Anatomical Region Laterality Modality Abdomen/Pelvis Digital Radiogra phy 10/23/2023 4:14 PM CDT Impressions 10/23/2023 7:05 PM CDT IMPRESSION: Enteric tube in the body the stomach. Overall bowel loops not well assessed on this study for NG tube placement. Narrative 10/23/2023 7:05 PM CDT EXAM: XR ABDOMEN PORT 1 VIEW LOCATION: [facility] DATE: 10/23/2023 INDICATION: NG tube placement COMPARISON: None. Procedure Note Venkat Martinez MD - 10/23/2023 EXAM: XR ABDOMEN PORT 1 VIEW LOCATION: [facility] DATE: 10/23/2023 INDICATION: NG tube placement [...] CDT EXAM: XR ABDOMEN 2 VIEWS LOCATION: [facility] DATE: 10/23/2023 INDICATION: Evaluate for ileus. COMPARISON: CT abdomen and pelvis 08/18/2023. Procedure Note Jillian Nicole MD - 10/23/2023 EXAM: XR ABDOMEN 2 VIEWS LOCATION: [facility] DATE: 10/23/2023 INDICATION: Evaluate for ileus. [...] LAB - BEAKER POCT Performing Organization Address City/[facility]/ZIP Co de Phone Number LABORATORY POC [facility] Acute Care Lab [address] Lab (1st floor, no room number) [address] * Phosphorus (10/21/2023 6:22 AM CDT) Phosphorus 2.9 2.5 - 4.5 mg/dL 10/21/2023 6:58 AM CDT RH LABORATORY Blood STRUCTURE OF RIGHT UPPER LIMB / Unknown Venipuncture / Unknown 10/21/2023 6:22 AM CDT 10/21/2023 6:31 AM CDT Tammy Montoya MD LAB - BLOOD ORDER CHANEL Performing Organization Address City/[facility]/ZIP Co de Phone Number [facility] Lab [address] Lab (1st floor, no room number) [address] * Magnesium (10/21/2023 6:22 AM CDT) Magnesium 1.8 1.7 - 2.3 mg/dL 10/21/2023 6:58 AM CDT RH LABORATORY Blood STRUCTURE OF RIGHT UPPER LIMB / Unknown Venipuncture / Unknown 10/21/2023 6:22 AM CDT 10/21/2023 6:31 AM CDT Tammy Montoya MD LAB - BLOOD ORDER CHANEL [facility] Acute Care Lab [address] Lab (1st floor, no room number) [address] * Surgical Pathology Exam (10/20/2023 1:59 PM CDT) Case Report Surgical Pathology Report ? Case: [id number] ? Authorizing Provider: ??Tammy Montoya MD ?? Collected: ? 10/20/2023 01:59 PM ? Ordering Location: ? [facility] ?? Received: ?10/20/2023 02:44 PM ? Main [...] abscess [ICD-10-CM] 10/22/2023 2:[address] [facility] LABORATORY Gross Description A(1). Large [...] flowers-pink and contains a normal folding pattern. Small Appliance Assembly Supervisor sections are submitted as follows: B1-proximal margin, en face B2-distal margin, en face [id number]-otgsjq diverticula and mucosa B7-additional portion of bowel mucosa (MEET Oliveira) 10/22/2023 2:[address] [facility] LABORATORY Microscopic Description Microscopic examination was performed. 10/22/2023 2:[address] [facility] LABORATORY Performing Labs The technical component of this testing was completed at [facility] Laboratory 10/22/2023 2:[address] [facility] LABORATORY Case Images 10/22/2023 2:[address] [facility] LABORATORY Polyp ASCENDING COLON STRUCTURE / Unknown 10/20/2023 1:59 PM CDT 10/20/2023 2:44 PM CDT Tissue specimen (specimen) SIGMOID COLON PART / Unknown 10/20/2023 4:32 PM CDT 10/20/2023 6:13 PM CDT Tammy Montoya MD LAB - KAYKAY [facility] Lab [address] [facility] Lab (1st floor, no room number) [place] [address] * ANE AIRWAY ETT PERFORMABLE (10/20/2023 1:46 PM CDT) Narrative Layla Abdullahi APRN CRNA - 10/20/2023 1:46 PM CDT Layla Abdullahi APRN CRNA ? 10/20/2023 ??1:52 PM Airway ? Patient location during procedure: OR ? Procedure Start/Stop Times: 10/20/2023 1:46 PM Staff - ? Anesthesiologist: ??Layla Abdullahi APRN CRNA ? Performed By: GRIPPER ATTACHER Consent for Airway ? Urgency: elective Indications [...] Time: 10/20/2023 1:46 PM Brandon Gold MD [place] ANESTHESIA * COLONOSCOPY (10/20/2023 1:02 PM CDT) COLONOSCOPY [facility] Patient Name: Theodore Wu ? Procedure [...] continuously. The ?Olympus Adult Colonoscope, Model # CF-GX983A, ?[facility] # [id number] was introduced through the ?anus and advanced [...] Procedure Code(s): ? --- Professional --- ? 13163, Colonoscopy, flexible; with removal of tumor(s), polyp(s), or ? other lesion(s) by snare technique CPT copyright 2021 [employer]. All rights reserved. The codes documented in this report are preliminary and upon him coder review may be revised to meet current compliance requirements. TAMMY MONTOYA MD 10/22/2023 5:35:05 PM I was physically present for the entire viewing portion of the exam. TAMMY MONTOYA MD Number of Addenda: 0 Note Initiated On: 10/20/2023 1:02 PM MRN: ?[id number] Procedure Date: ? 10/20/2023 1:02:04 PM Scope [...] Advance Directives For more information, please contact: [phone] * Full Code (Latest Code Status on [...] patie nt/ legal decision maker Care Teams Flattening Machine Operator Relationship Specialty Start Date End Date Juan Pablo Buckley MD PCP - General Family Medicine 10/20/23
--- OUTSIDE RECORDS SUMMARY | 2024-01-02 16:22 | XMS_ITS | Encounter Summary ---
Author Organization [place] Address [address] [place] [address] Care Team Providers Care Cafeteria Operator Name Role Phone Juan Pablo Buckley MD Primary Care Provider 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] Procedures FL COLONOSCOPY W/WO BRUSH/WASH FL LAP,SURG,COLECTOMY, PARTIAL, W/ANAST FL LAP,SURG,COLECTOMY,W/REMVL TERM ILEUM FL LAP,SURG,COLECTOMY,W/END COLOST & CLOSUR FL LAP,SURG,COLECTOMY,W/ANAST FL LAP, SURG, COLECTOMY, W/ANAST, W/COLOSTOMY FL LAP,SURG,COLECTOMY,TOTAL,W/O PROCTECTOMY FL LAP,SURG,COLECTOMY,TOTAL,W/PRO CTECTOMY FL LAP,SURG,COLECT,TOT,W/PROCTECT ,W/ILEOST FL PART REMOVAL COLON W ANASTOMOSIS FL PART REMOVAL COLON W COLOSTOMY FL PART REMOVAL COLON W END COLOSTOMY FL PART REMOVAL COLON W OSTOMY/MUCOFIST FL PART REMOVAL COLON W COLOPROCTOSTOMY FL PART REMOVAL COLON W COLOPROC,COLOST FL PART REMOVAL COLON,ABD/TRANSANAL TRAVIS FL REMOVAL COLON/ILEOSTOMY ZZC REMOVAL COLON/ILEOSTOMY,CONTINENT FL REMOVAL COLON/PROCTECTOMY/ILEOSTOMY ZZC REMOVAL COLON/PROCTEC/ILEOSTOMY CONT ZZC REMOVAL COLON/PROCTEC/ ILEOANAL ANAST FL REMOVAL COLON/PROCTEC/ILEOANAL ANAST POUCH FL REMVL COLON/TERM ILEUM/ILEOCOLOSTOMY Intraoperative colonoscopy robotic sigmoid colectomy possible open, possible stoma Periop Services [address] [place] [address] Referral ID Status Reason Start Date Expiration Date Visits Re quested Visits Authorized [id number] 1 1 Encounter Details Date Type Department Care Team (Late st Contact Info) Description 10/20/2023 12:50 PM CDT - 10/20/2023 6:30 PM CDT Surgery [facility] PeriOp Services [address] [place] [phone] Tammy Montoya MD COLO & RECTAL SURGERY [address] [id number] Intraoperative colonoscopy Surgery Details Date/Time Status Location [...] Role Service Panel Kalyn Villagomez PA-C Assisting Weatherstrip Machine Operator Authori zation 1 Tammy Montoya MD Primary General 1 Milli Jacobs MD Fellow - Assisting Swengel-Rectal 1 Special Needs 4hr req documented in [...] Villagomez PA-C - 10/27/2023 1:28 PM CDT [facility] Discharge Summary Christi Wu Age: [age] year old Date of : 1945 Date of Admission: 10/20/2023 Date of Discharge:: 10/27/2023 Admitting Physician: Tammy Montoya MD Discharge Physician: Tammy Montoya MD PCP: Juan Pablo Buckley Disposition: Patient discharged from [facility] to home in stable condition. Primary [...] No DVT No PE No CVA No MS No Enterocutaneous fistula No Peripheral nerve injury [...] Your home care referral was sent to [facility] If you haven't heard from them within the next 24-48 hours, Please call them at [phone] documented in this encounter Medications at Time [...] and faxed them the pt's discharge orders P:[phone] F: [phone]. Sw will continue to be available as needed until discharge. TATIANNA Alvarenga, [facility] Inpatient Care Coordination [facility] [phone] * Lexie Bang PT - 10/27/2023 1:52 [...] questions/paging, please contact the CRS office at [phone]. Galen Moffett PA-C Colon & Rectal Surgery [...] questions/paging, please contact the CRS office at [phone]. Galen Moffett PA-C [facility] Associated attestation - Laura Rojo MD - 10/26/2023 1:08 PM CDT Physician Attestation I saw and evaluated Christi Wu as part of a shared CRM MANAGER/PA visit. I personally reviewed the vital [...] questions/paging, please contact the CRS office at [phone]. Galen Moffett PA-C [facility] CRS Staff. Seen and examined independently. Agree with above. I performed a history and physical examination of the patient and discussed their management with the physician assistant kitchen manager. I reviewed the physician assistants note and agree with the documented findings and plan of care. MD JEANE Villegas Colorectal Surgeon [facility] [address] , [address] [place] [address] T: [phone] F: [phone] Pager: [phone] [email or web address] * Adán Mcneal MD - 10/24/2023 [...] Colorectal Surgeon [facility] [address] , [address] [place] [address] T: [phone] F: [phone] Pager: [phone] [email or web address] Interval History: Xray demonstrating some ileus yesterday. [...] Colorectal Surgeon [facility] [address], [address] [place] [address] T: [phone] F: [phone] Pager: [phone] [email or web address] Interval History: Hypertensive overnight. Reports bloating and [...] PLT 315 10/20/2023 PLT 136 (L) 08/21/2023 [facility] Recent Labs Lab Test 10/22/23 0613 [...] questions/paging, please contact the CRS office at [phone]. Kalyn Villagomez PA-C Colon & Rectal Surgery [...] Evaluation Time PT Eval, Moderate Complexity Minutes (01747) 10 Physical Therapy Goals PT Frequency Daily PT Predicted Duration/Target Date for Goal Attainment 10/27/23 PT Goals Bed Mobility;Transfers;Gait PT: Bed Mobility Supine to/from sit;Rolling;Within precautions;Independent PT: Transfers Modified independent;Bed to/from chair;Sit to/from stand;Assistive device;Within precautions PT: Gait Supervision/stand-by assist;Rolling walker;150 feet Interventions Interventions Quick Adds Therapeutic Activity;Gait Training Therapeutic Activity Therapeutic Activities: dynamic activities to improve functional performance Minutes (77773) 8 Symptoms Noted During/After Treatment Increased pain;Fatigue [...] of session. Gait Training Gait Training Minutes (57565) 8 Symptoms Noted During/After Treatment (Gait Training) [...] questions/paging, please contact the CRS office at [phone]. Kalyn Villagomez PA-C [facility] Associated attestation - Laura Rojo MD - 10/21/2023 6:45 PM CDT Physician Attestation I saw and evaluated Christi Wu as part of a shared CRM MANAGER/PA visit. I personally reviewed the vital [...] Home spouse Current Living Arrangements house ([facility]) Home Accessibility no concerns Self-Care Usual [...] weakness Bed Mobility Bed Mobility supine-sit;sit-supine Supine-Sit [place] (Bed Mobility) minimum assist (75% patient effort) Sit-Supine [place] (Bed Mobility) minimum assist (75% patient effort) Transfers Transfers sit-stand transfer;toilet transfer Sit-Stand Transfer Sit-Stand [place] (Transfers) supervision Toilet Transfer [place] Level (Toilet Transfer) supervision Balance Balance Comments Benefits from FWW, history of falls. Activities of Daily Living BADL Assessment/Intervention lower body dressing;grooming Lower Body Dressing Assessment/Training [place] Level (Lower Body Dressing) contact guard assist Grooming Assessment/Training [place] Level (Grooming) supervision Clinical Impression Criteria for [...] Evaluation Time OT Eval, Low Complexity Minutes (09347) 10 OT Goals Therapy Frequency (OT) Daily [...] Management Self-Care/Home Mgmt/ADL, Compensatory, Meal Prep Minutes (90421) 8 Symptoms Noted During/After Treatment (Meal Preparation/Planning [...] at sink. Therapeutic Activities Therapeutic Activity Minutes (01842) 29 Symptoms noted during/after treatment increased pain;fatigue [...] Communication Assessment Patient's communication style: spoken language (Taiwanese or Bilingual) Hearing Difficulty or Deaf: no [...] Chemical Dependency Status: Values/Beliefs: Spiritual, Cultural Beliefs, Amish Practices, Values that affect care: Additional Information: [...] will transport at discharge. Referral sent to [facility] hub for home PT. Addendum Pt accepted by [facility] for home PT. AVS updated. Mili Proctor/TATIANNA Coley, JAIMEE Inpatient Care Coordination Emergency Room Validation Consultant/Float [phone] Mili Proctor LGSW documented in this encounter Miscellaneous Notes * Plan of Care - Luisa Montes OT - 10/27/2023 3:38 PM CDT Occupational Therapy Discharge Summary Reason for therapy discharge: Discharged to home with home therapy. Progress towards therapy goal(s). See goals on Care Plan in [facility] electronic health record for goal [...] and complete assessments, please see documentation flowsheets. [id number] Pertinent assessments: Pt A&Ox4. SBA with walker [...] shift note. Outcome: Progressing Flowsheets (Taken 10/27/2023 7130) Outcome Evaluation: Pt is passing gas & [...] shift note. Outcome: Progressing Flowsheets (Taken 10/26/2023 4882) Outcome Evaluation: had large bm, passing lots [...] shift note. Outcome: Progressing Flowsheets (Taken 10/26/2023 7707) Outcome Evaluation: ambulating in [place], pain controlled [...] Fluid and Electrolyte Balance 10/25/20232303 by Wes Biu RN Outcome: Progressing 10/25/20232302 by Wes Bui [...] Documentation Taken 10/25/2023 0916 by Lili Kemp, sales attendant Interventions: rest medication (see MAR) Goal: Nausea [...] note. Outcome: Not Progressing Flowsheets (Taken 10/22/2023 0755) Outcome Evaluation: no gas yet, intermittent abdominal [...] and complete assessments, please see documentation flowsheets. [id number] Pertinent assessments: POD#2. Pt A&Ox4. On 2L NC. Afebrile.Elevated BP other VSS. C/O pain, nausea, & hiccups given prn oxy, one time order of baclofen, & zofran odt. PIV infusing LR at 75mls/hr. MARIZA drain in place with bloody output. B Major Shift Events: After taking oxy & tylenol Pt had a small emesis episode witnessed by charge entry clerk. In addition Pt was found to have [...] note. Outcome: Not Progressing Flowsheets (Taken 10/22/2023 2930) Outcome Evaluation: Pt is voiding, on 2L [...] Recent Flowsheet Documentation Taken 10/21/2023 0910 by iMlli Morales RNsales attendant Interventions: medication (see MAR) Taken 10/21/2023824 by Milli Morales RNsales attendant Interventions: medication (see MAR) Goal: Readiness for [...] Documentation Taken 10/21/2023 09 by Milli Morales RNsales attendant Interventions: medication (see MAR) Taken 10/21/2023824 by Milli Morales RNsales attendant Interventions: medication (see MAR) Goal: Nausea and [...] and complete assessments, please see documentation flowsheets. [id number] Pertinent assessments: POD#1. Pt A&Ox4. On 3L [...] Jacobs MD - 10/20/2023 6:06 PM CDT [facility] Brief Operative Note Pre-operative diagnosis: Colonic [...] pneumatic leak testing Surgeon: Maddi Montoya MD Weatherstrip Machine Operator: Kalyn Villagomez PA-C A skilled sampler first was necessary due to the technical complexity of the procedure and for the patient's safety. The assistant kitchen manager helped me with positioning, retraction, visualization of the operative field, meticulous wound closure and moreover helped to complete the procedures in a technicallysafe and efficient manner. Second Weatherstrip Machine Operator: Milli Jacobs MD (colorectal surgery fellow) Anesthesia: [...] * Pharmacy-Admission Medication History - Jeffery Menard [facility] - 10/15/2023 2:21 PM CDT Pre-Admission Medication History Medication history and patient interview completed by pre-admitting RN or pre- op/MACHINE LOAD CLERK. Reviewed by pharmacist, including [employer] dispense records, [facility] Care Everywhere, and chart review. Jeffery Menard, Pharm.D., [facility] Last Reviewed by Lesa Reyes, MEDHAT on 10/12/2023 at 4:31 PM POST OFFICE CLERK Med List Medication Sig Last Dose acetaminophen [...] MD LAB - BLOOD ORDER CHANEL LABORATORY [facility] Acute Care Lab [address] Lab (1st floor, no room number) [place] [address], [facility] * (ABNORMAL) CBC with [...] MD LAB - BLOOD ORDERABL ES LABORATORY [facility] Acute Care Lab [address] [facility] Lab (1st floor, no room number) [place] [address], [facility] * Basic metabolic panel (10/25/2023 [...] Mcneal MD LAB - BLOOD ORDERABL ES [facility] Acute Care Lab [address] [facility] Lab (1st floor, no room number) [place] [address] * XR Abdomen Port 1 View (10/23/2023 4:14 PM CDT) Anatomical Region Laterality Modality Abdomen/Pelvis Digital Radiogra phy 10/23/2023 4:14 PM CDT Impressions 10/23/2023 7:05 PM CDT IMPRESSION: Enteric tube in the body the stomach. Overall bowel loops not well assessed on this study for NG tube placement. Narrative 10/23/2023 7:05 PM CDT EXAM: XR ABDOMEN PORT 1 VIEW LOCATION: [facility] DATE: 10/23/2023 INDICATION: NG tube placement COMPARISON: None. Procedure Note Venkat Martinez MD - 10/23/2023 EXAM: XR ABDOMEN PORT 1 VIEW LOCATION: [facility] DATE: 10/23/2023 INDICATION: NG tube [...] MD LAB - BLOOD ORDERABL ES LABORATORY [facility] [address] [facility] (1st floor, no room number) [place] [address] * XR Abdomen 2 Views (10/23/2023 9:42 [...] EXAM: XR ABDOMEN 2 VIEWS LOCATION: [facility] DATE: 10/23/2023 INDICATION: Evaluate for ileus. COMPARISON: CT abdomen and pelvis 08/18/2023. Procedure Note Jillian Nicole MD - 10/23/2023 EXAM: XR ABDOMEN 2 VIEWS LOCATION: [facility] DATE: 10/23/2023 INDICATION: Evaluate for [...] Mcneal MD LAB - BLOOD ORDERABL ES [facility] Care Lab [address] Lab (1st floor, no room number) [address] [place] [address] * Platelet count (10/23/2023 8:45 AM CDT) Platelet Count 320 150 - 450 10e3/uL 10/23/2023 9:00 AM CDT LABORATORY Blood STRUCTURE OF LEFT UPPER LIMB / Unknown Venipuncture / Unknown 10/23/2023 8:45 AM CDT 10/23/2023 8:57 AM CDT Tammy Montoya MD LAB - BLOOD ORDER CHANEL [facility] Care Lab [address] Lab (1st floor, no room number) [place] [id number] [place] [address] * (ABNORMAL) Glucose by meter (10/22/2023 6:13 AM CDT) GLUCOSE BY METER POCT 149(H) 70 - 99 mg/dL 10/22/2023 6:20 AM CDT RH LABORATORY POC Blood, Capillary BLOOD SPECIMEN / Unknown 10/22/2023 6:13 AM CDT 10/22/2023 6:20 AM CDT Tammy ALMARAZ - BEAKER POCT LABORATORY [facility] Care Lab [address] Lab (1st floor, no room number) [place] [phone] [place] [address] * (ABNORMAL) Glucose by meter (10/21/2023 6:35 AM CDT) GLUCOSE BY METER POCT 133(H) 70 - 99 mg/dL 10/21/2023 6:42 AM CDT LABORATORY POC Blood, Capillary BLOOD SPECIMEN / Unknown 10/21/2023 6:35 AM CDT 10/21/2023 6:42 AM CDT Tammy ALMARAZ - BEAKER POCT LABORATORY [facility] Lab [address] Lab (1st floor, no room number) [place] [id number], [facility] * Phosphorus (10/21/2023 6:22 AM CDT) Phosphorus 2.9 2.5 - 4.5 mg/dL 10/21/2023 6:58 AM CDT LABORATORY Blood STRUCTURE OF RIGHT UPPER LIMB / Unknown Venipuncture / Unknown 10/21/2023 6:22 AM CDT 10/21/2023 6:31 AM CDT Tammy Montoya MD LAB - BLOOD ORDER CHANEL [facility] Lab [address] Lab (1st floor, no room number) [place] [address], [facility] * Magnesium (10/21/2023 6:22 AM CDT) Magnesium 1.8 1.7 - 2.3 mg/dL 10/21/2023 6:58 AM CDT RH LABORATORY Blood STRUCTURE OF RIGHT UPPER LIMB / Unknown Venipuncture / Unknown 10/21/2023 6:22 AM CDT 10/21/2023 6:31 AM CDT Tammy Montoya MD LAB - BLOOD ORDER CHANEL RH LABORATORY [facility] Acute Care Lab [address] [facility] Lab (1st floor, no room number) [place] [address] * (ABNORMAL) CBC with platelets (10/21/2023 6:22 [...] MD LAB - BLOOD ORDER CHANEL LABORATORY [facility] Acute Care Lab [address] Lab (1st floor, no room number) [place] [address], [facility] * (ABNORMAL) Basic metabolic panel (10/21/2023 6:22 AM CDT) [facility] Sodium 137 135 - 145 mmol/L [...] - BLOOD ORDER CHANEL Performing Organization Address [facility] de Phone Number LABORATORY [facility] Lab [address] Lab (1st floor, no room number) [address] * Platelet count (10/20/2023 8:56 PM CDT) Platelet Count 315 150 - 450 10e3/uL 10/20/2023 9:10 PM CDT LABORATORY Blood STRUCTURE OF LEFT UPPER LIMB / Unknown Venipuncture / Unknown 10/20/2023 8:56 PM CDT 10/20/2023 9:03 PM CDT Tammy Montoya MD LAB - BLOOD ORDER CHANEL Performing Organization Address [facility] de Phone Number [facility] Acute Care Lab [address] Lab (1st floor, no room number) [address] * Surgical Pathology Exam (10/20/2023 1:59 PM CDT) Case Report Surgical Pathology Report ? Case: [id number] ? Authorizing Provider: ??Tammy Montoya MD ?? Collected: ? 10/20/2023 01:59 PM ? Ordering Location: ? [facility] ?? Received: ?10/20/2023 02:44 PM ? [...] flowers-pink and contains a normal folding pattern. Automatic Seamer sections are submitted as follows: B1-proximal margin, en face B2-distal margin, en face E9-O8-[id number] diverticula and mucosa B7-additional portion of bowel mucosa (MEET Oliveira) 10/22/2023 2:54 PM CDT LABORATORY Microscopic Description Microscopic examination was performed. 10/22/2023 2:54 PM CDT LABORATORY Performing Labs The technical component of this testing was completed at [facility] Laboratory 10/22/2023 2:54 PM CDT LABORATORY Case Images 10/22/2023 2:54 PM CDT LABORATORY Polyp ASCENDING COLON STRUCTURE / Unknown 10/20/2023 1:59 PM CDT 10/20/2023 2:44 PM CDT Tissue specimen (specimen) SIGMOID COLON PART / Unknown 10/20/2023 4:32 PM CDT 10/20/2023 6:13 PM CDT Tammy Montoya MD LAB - KAYKAY LOPEZ LABORATORY [facility] Acute Care Lab [address] [facility] Lab (1st floor, no room number) [place] [address] * COLONOSCOPY (10/20/2023 1:02 PM CDT) COLONOSCOPY [facility] Patient Name: Christi Wu ? Procedure Date: [...] continuously. The ?Olympus Adult Colonoscope, Model # CF-SP804F, ?Censitrac # [id number] was introduced through the ?anus and advanced [...] Procedure Code(s): ? --- Professional --- ? 40981, Colonoscopy, flexible; with removal of tumor(s), polyp(s), or ? other lesion(s) by snare technique CPT copyright 2021 [employer]. All rights reserved. The codes documented in this report are preliminary and upon custom furrier review may be revised to meet current compliance requirements. TAMMY MONTOYA MD 10/22/2023 5:35:05 PM I was physically present for the entire viewing portion of the exam. TAMMY MONTOYA MD Number of Addenda: 0 Note Initiated On: 10/20/2023 1:02 PM MRN: ?[id number] Procedure Date: ? 10/20/2023 1:02:04 PM Scope [...] MD LAB - BEAKER POCT LABORATORY POC [facility] Lab [address] Lab (1st floor, no room number) [place] [address], [facility] * EKG CARDIAC - HIM [...] analgesic side effects. Hold while on IV RESEARCH PHYSIOLOGIST or with regular IV opioid dosing. $Given [...] analgesic side effects. Hold while on IV RESEARCH PHYSIOLOGIST or with regular IV opioid dosing. $Given [...] - Provider: Latesha Finn)1638 ($Given - Provider: Wse Bui, MEDHAT) 0039 ($Given - Provider: Satish [...] analgesic side effects. Hold while on IV RESEARCH PHYSIOLOGIST or with regular IV opioid dosing. 0435 [...] analgesic side effects. Hold while on IV RESEARCH PHYSIOLOGIST or with regular IV opioid dosing. 0435 [...] analgesic side effects. Hold while on IV RESEARCH PHYSIOLOGIST or with regular IV opioid dosing. Or oxyCODONE (ROXICODONE) tablet 10 mgJump to med 10 mg, Oral, EVERY 4 HOURS PRN, severe pain, Starting on Wed10/20/23 at 2038, Hold oral PRN dose for analgesic side effects. Notify provider to assess for uncontrolled pain or analgesic side effects. Hold while on IV RESEARCH PHYSIOLOGIST or with regular IV opioid dosing. documented in this encounter Care Teams Cafeteria Operator Relationship Specialty Start Date End Date Juan Pablo Buckley MD PCP - General Family Medicine 10/20/23 documented as of this encounter
--- OUTSIDE RECORDS SUMMARY | 2024-01-02 16:23 | XMS_ITS | Encounter Summary ---
Author Organization [place] Address [address] [place] [address]. [place] [address] Care Team Providers Care Unix Consultant Name Role Phone No Ref-Primary, Physician Primary Care Provider Juan Pablo Buckley MD Primary Care Provider [phone] Encounter Details Date Type Department Care Team (Late st Contact Info) Description 08/18/2023 Orders Only [facility] [address] [place] [address] Carlyn Barba MD COLO & RECTAL SURGERY [address] [id number] C. difficile diarrhea (Primary Dx) Social History [...] Out C-difficile 08/18/2023 08/18/2023 024 5:02 AM INDUSTRIAL TRACTOR DRIVER C-difficile 08/18/2023 08/18/2023 09/17/2023 11:3 9 PM INDUSTRIAL TRACTOR DRIVER documented as of this encounter Care Teams Unix Consultant Relationship Specialty Start Date End Date No Ref-Primary, Physician PCP - General 03/25/23 10/19/23 Juan Pablo Buckley MD PCP - General Family Medicine 10/20/23 documented as of this encounter
--- OUTSIDE RECORDS SUMMARY | 2024-01-02 16:23 | XMS_ITS | Encounter Summary ---
Author Organization [place] Address [facility] [place] [address] Care Team Providers Care College Professor Name Role Phone No Ref-Primary, Physician Primary Care Provider Juan Pablo Buckley MD Primary Care Provider [phone] Encounter Details Date Type Department Care Team (Late st Contact Info) Description 08/12/2023 Hospital Encounter [facility] Endoscopy [address] [address] Carlyn Barba MD COLO & RECTAL SURGERY [address] [id number] Social History Tobacco Use Types Packs/Day Years [...] C-difficile 07/16/2023 07/16/2023 08/15/2023 11:3 9 PM CLINICAL RECRUITER Rule Out C-difficile 08/18/2023 08/18/2023 024 5:02 AM CLINICAL RECRUITER C-difficile 08/18/2023 08/18/2023 09/17/2023 11:3 9 PM CLINICAL RECRUITER documented as of this encounter Care Teams College Professor Relationship Specialty Start Date End Date No Ref-Primary, Physician PCP - General 03/25/23 10/19/23 Juan Pablo Buckley MD PCP - General Family Medicine 10/20/23 documented as of this encounter
--- OUTSIDE RECORDS SUMMARY | 2024-01-02 16:23 | XMS_ITS ---
Author Organization [place] Address [address] [place] [address] Care Team Providers Care Electronics Assembler And Tester Name Role Phone Juan Pablo Buckley MD Primary Care Provider [phone] Transitional Care Management Status:Closed (Closed) Start date:10/28/2023 Enrollment date:10/29/2023 End date:11/11/2023 Close reason:Goals met Continued Care and Services Coordination
--- OUTSIDE RECORDS SUMMARY | 2024-01-02 16:23 | XMS_ITS | Encounter Summary ---
Author Organization [facility] Address [address] [place] [address] Care Team Providers Care Tool Carrier Name Role Phone No Ref-Primary, Physician Primary Care Provider Juan Pablo Buckley MD Primary Care Provider [phone] 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] Procedures SD LAP,SURG,COLECTOMY, PARTIAL, W/ANAST SD LAP,SURG,COLECTOMY,W/REMVL TERM ILEUM SD LAP,SURG,COLECTOMY,W/END COLOST & CLOSUR SD LAP,SURG,COLECTOMY,W/ANAST SD LAP, SURG, COLECTOMY, W/ANAST, W/COLOSTOMY SD LAP,SURG,COLECTOMY,TOTAL,W/O PROCTECTOMY SD LAP,SURG,COLECTOMY,TOTAL,W/PROCT ECTOMY SD LAP,SURG,COLECT,TOT,W/PROCTECT,W /ILEOST SD CYSTOURETHROSCOPY W URETERAL CATH SD CYSTOURETHROSCOPY W URETERAL CATH SD CYSTOSCOPY,INSERT URETERAL STENT cystoscopy with bilateral ureteral catheter insertion Periop Services [address] [place] [address] Referral ID Status Reason Start Date Expiration Date Visits Re quested Visits Authorized [id number] 1 1 Encounter Details Date Type Department Care Team (Latest Contact Info) Description 08/20/2023 Hospital Encounter [facility] Services [address] [place] [address] Mauricio Padilla MD [address] [place] [address] Colonic diverticular abscess Social History Tobacco Use [...] C-difficile 08/18/2023 08/18/2023 09/17/2023 11:3 9 PM TELEMETRY NURSE documented as of this encounter Care Teams Tool Carrier Relationship Specialty Start Date End Date No Ref-Primary, Physician PCP - General 03/25/23 10/19/23 Juan Pablo Buckley MD PCP - General Family Medicine 10/20/23 documented as of this encounter
--- OUTSIDE RECORDS SUMMARY | 2024-01-02 16:23 | XMS_ITS | Clinical Summary ---
Author Organization [facility] Address [place], [place] [address] Care Team Providers Care Call Center Operator Name Role Phone Marco A Buckley MD Primary Care Provider [phone] Allergies No known active allergies Medications Medication [...] Comments Blood Pressure 147/74 07/09/2020 3:17 PM INDUSTRIAL CHEMISTRY TEACHER Pulse 77 07/09/2020 3:17 PM INDUSTRIAL CHEMISTRY TEACHER Temperature 36.3 ??C (97.4 ??F) 10/21/2015 9:36 AM CD T Respiratory Rate - - Oxygen Saturation 100% 07/09/2020 3:17 PM INDUSTRIAL CHEMISTRY TEACHER Inhaled Oxygen Concentration - - Weight 85.4 kg (188 lb 3.2 oz) 07/09/2020 3:17 P M INDUSTRIAL CHEMISTRY TEACHER Height 172.1 cm (5' 7.75) 10/21/2015 9:36 [...] Influenza for age 65+ 03/26/2024 Care Teams Call Center Operator Relationship Specialty Start Date End Date Marco A Buckley MD PCP - General Family Practice 03/18/23
--- OUTSIDE RECORDS SUMMARY | 2024-01-02 16:23 | XMS_ITS | Encounter Summary ---
Author Organization [facility] Address [address] [place] [address] Care Team Providers Care Maintenance Mechanic Helper Name Role Phone No Ref-Primary, Physician Primary [...] on filedocumented in this encounter Care Teams Maintenance Mechanic Helper Relationship Specialty Start Date End Date No Ref-Primary, Physician PCP - General 03/25/23 10/19/23 documented as of this encounter
--- OUTSIDE RECORDS SUMMARY | 2024-01-02 16:23 | XMS_ITS | Encounter Summary ---
Author Organization [facility] Address [address] [place] [address]. [place] [address] Care Team Providers Care Rail Car Painter/Sandblaster Name Role Phone No Ref-Primary, Physician Primary Care Provider Juan Pablo Buckley MD Primary Care Provider [phone] Encounter Details Date Type Department Care Team (Late st Contact Info) Description 08/17/2023 Orders Only [facility] [address] [place] [address] Carlyn Barba MD [facility] [address] [id number] Social History Tobacco Use Types Packs/Day Years [...] Out C-difficile 08/18/2023 08/18/2023 024 5:02 AM FISHING VESSEL OPERATOR C-difficile 08/18/2023 08/18/2023 09/17/2023 11:3 9 PM FISHING VESSEL OPERATOR documented as of this encounter Care Teams Rail Car Painter/Sandblaster Relationship Specialty Start Date End Date No Ref-Primary, Physician PCP - General 03/25/23 10/19/23 Juan Pablo Buckley MD PCP - General Family Medicine 10/20/23 documented as of this encounter
== END 2023-12-31 13:44 | disposition home or self-care (01) ==
LOC: AMB 01-02 16:19
PROVIDERS: PCP Family Medicine; Visit Provider Emergency Medicine Emergency Medical Services
DX: R55 Syncope and collapse (principal)
CPT/HCPCS: A0425; A0427

== ENCOUNTER 2023-12-31 14:08 | Emergency (ER) | payer MEDICARE, SELFPAY ==
[2023-12-31] VITALS (20 sets, daily range): BP systolic 83–122; BP diastolic 45–72; PULSE 74–86; RESP 18; TEMP 36.4; O2SAT 83–99; BMI 22.7
--- OUTSIDE RECORDS SUMMARY | 2023-12-31 14:13 | XMS_ITS | Encounter Summary ---
Author Organization [facility] Address [address] [place] [address] Phone Care Team Providers Care Tobacco Sieve Operator Name Role Phone Unavailable Primary Care Provider Unavailabl e Encounter Details Date Type Department Care Team (Late st Contact Info) Description 11/17/2023 11:00 AM MDT Office Visit [facility] [address] [place] [address] Sybil Steinberg MD [address] [place] [address] Recurrent Clostridium difficile infection (Primary Dx) Social History Tobacco Use Types [...] Progress Notes * Sybil Steinberg MD - 11/17/2023 11:00 AM CDT Infectious disease FU: Pt did not make it to the appointment. When I called them they requested to call back again as they were at the gas station I called again and the phone went to voice mail Since seen last time C diff relapsed and is back on oral vanco. s/p robotic assisted converted to open sigmoid colectomy. Story so far: Theodore Wu is a 78 year old who was admitted on 08/18/2023. 78 yo with PMH of hypertension, CAD s/p CABG, current smoker c/b COPD Long standing history of intra-abdominal abscess incidentally found [facility] a [facility] MRI. [facility] was noted that this abscess would not amenable to IR drainage due to location. He signed out AGAINST MEDICAL ADVICE at that time. He also has history of chronic low back pain with finding of lumbar stenosis and has been seen by neurosurgery. He was admitted to [facility] from 03/27 - 03/30/23 with acute [...] definite clear communication with the bowel lumen documented in this encounter Plan of Treatment Upcoming Encounters Date Type Department Care Team (Late st Contact Info) Description 02/09/2024 11:00 AM MDT Office Visit [facility] [address] [facility] [address] [place] [address] Sybil Steinberg MD [address] [facility] [address] [place] [address] documented as of this encounter Visit Diagnoses Diagnosis Recurrent Clostridium difficile infection- Primary documented in this encounter
--- OUTSIDE RECORDS SUMMARY | 2023-12-31 14:13 | XMS_ITS | Encounter Summary ---
Author Organization [facility] Address [address] [place] [address] Phone Care Team Providers Care Specialty Development Consultant Name Role Phone Unavailable Primary Care Provider Unavailabl e Encounter Details Date Type Department Care Team (Late st Contact Info) Description 11/30/2023 9:00 AM MDT Office Visit [facility] [address] [place] [address] Amarilys Lamb PA [address] [place] [address] Clostridium difficile colitis (Primary Dx) Social History Tobacco Use Types [...] encounter Progress Notes * MEET Gutierrez - 11/30/2023 9:00 AM CDT INFECTIOUS DISEASE FOLLOW-UP Subjective History of Present Illness: Theodore Wu [...] c.diff and again in early 09/2023. He had been on Difficid and then was maintained on oral vancomycin until his surgery by colorectal surgery (open sigmoid colectomy) on 10/20/23. In middle of October he developed recurrent c.diff. He was again started on oral vancomycin. Plan hasbeen to do a long taper. He is currently taking it 4 tomes daily. He states he is now down to only 2 BMs per day and they are more formed. He denies abdominal pain, fever, chills. Review of Systems Constitutional: Positive for appetite change (poor appetite, but has had this for some time.). Respiratory: Negative. Cardiovascular: Negative. Gastrointestinal: Negative. Skin: Negative. All other systems reviewed and are negative. Objective There were no vitals taken for this visit. Unable to do a physical exam as this was a telephone visit. Assessment/Plan Impression: 78 yo with PMH of hypertension, CAD s/p CABG, current smoker c/b COPD Long standing history of intra-abdominal abscess incidentally found on a lumbar MRI. [facility] and it was noted that this abscess would not be amenable to IR drainage due to location. He signed out AMA at that time. He also has history of chronic low back pain with finding of lumbar stenosis and has been seen by neurosurgery. He was admitted to [facility] from 03/27 - 03/30/23 with acute sigmoid diverticulitis with associatedpelvic abscess. He was seen by colorectal surgery. He was seen by IR and once again did not have access to safely put a percutaneous drain. It was decided that he will be treated with antibiotics with repeat scans and outpatient follow-up with colorectal surgery. Admitted for c diff colitis on 07/15/23. CT of the abdomen/pelvis showed interval decrease in the peridiverticular abscess now measuring 2.2 x 2 cm. There was evidence of pancolitis. Prominent loops of nondilated fluid-filled small bowel in the left lower quadrant noted this reflected isolated ileus versus early small bowel obstruction. Admitted again with diarrhea in 07/2023, tested positive again for C diff Repeat CT: Fluid and gas containing pelvic abscess at the level of L5-S1 has decreased in size since 03/28/2023, now measuring up to 2.2 cm. A small bowel loop and the sigmoid colon are tethered by scar tissue to the abscess, without a definite clear communication with the bowel lumen Started and completed 10 day course of Fidaxomicin Presented again shortly thereafter to [facility] with recurrent C.diff. Fidaxomicin again prescribed. Maintained on oral vancomycin prophylaxis until his open sigmoid resection on 10/20/23. Now again with recurrent c.diff 10/2023. Started on long taper of oral vancomycin. Doing well with only 2 formed BM per day. Recommendations: Continue oral vancomycin taper: 125 mg qid x 4 weeks 125 mg tid x 2 weeks 125 mg bid x 2 weeks 125 mg daily x 1 month Follow up with Dr. Steinberg in about 2 months (prior to finishing oral vancomycin taper). They had many questions about low fiber diet after surgery. I advised that they follow-up with Colorectal Surgery regarding that. Amarilys Lamb PA-C documented in this encounter Plan of Treatment Upcoming Encounters Date Type Department Care Team (Late st Contact Info) Description 02/09/2024 11:00 AM MDT [facility] [address] [facility] [address] [place] [address] Sybil Steinberg MD [address] [facility] [address] [place], [place] [address] documented as of this encounter Visit Diagnoses Diagnosis Clostridium difficile colitis- Primary documented in this encounter
--- OUTSIDE RECORDS SUMMARY | 2023-12-31 14:13 | XMS_ITS | Continuity of Care Document ---
Author Organization [facility] Address [address] [place] [address] Phone Care Team Providers Care Ground Crew Linesman Name Role Phone Linwood DAVID, Amisathya Unavailable Unavailable Allergies, Adverse Reactions, Alerts [...] C, [address], [place], [id number], [place] tel:[phone] [facility] No Information 3 Mehbod Amir. [facility] [place], [address] [place] [address] [address], [place], [place], [id number] , [place]. tel:[phone] Office/Outpat ient Visit,Est, Mod [facility], [address], [place], [id number], [place] tel:[phone] [facility] Spinal stenosis, lumbar region with neurogenic claudication 3 Mehbod Amir. [facility] [place], [address] [place] [address] [address], [facility], [id number] , [place]. tel:[phone] Referring Provider: Juan Pablo Amaya, [facility] [address], [place], [address]. tel:[phone] Office/Outpat ient Visit,[facility], [facility], [address], [place], [id number], [place] tel:[phone] [facility] Low back painSpinal stenosis, lumbar region with neurogenic claudication 1 Kenzie Leary. [facility], [address], [address], [place], [id number] , [place]. tel:[phone] Referring Provider: Juan Pablo Amaya, [facility] [address], [place], [address]. tel:[phone] Family History Family Member Type Diagnosis Age At Onset No Information Payers Payer name Insurance type Covered green party ID Authoriza tion(s) [employer] Medicare Gold Choice Ramesh CONTRERAS [id number] Social History Type Description Quantity Date [...]
--- OUTSIDE RECORDS SUMMARY | 2023-12-31 14:13 | XMS_ITS | Clinical Summary ---
Author Organization [facility] Address [address] [place] [address] Phone Care Team Providers Care School Cleaner Name Role Phone Unavailable Primary Care Provider [...] hours if needed for mild pain Active Lactobacillus-Inulin (CULTURELLE DIGESTIVE DAILY PO) Take 1 capsule by mouth 1 (one) time each day Active escitalopram (LEXAPRO) 10 MG tablet Take 10 mg by mouth 1 (one) time each day in the morning 08/23/2023 Active vancomycin (VANCOCIN) 125 MG capsule Take 125 mg by mouth Taper called in to [facility] in [place] 125 mg qid x 4 weeks 125 mg tid x 2 weeks 125 mg bid x 2 weeks 125 mg daily x 28 days No refills Active niacin 50 MG tablet Take 50 mg by mouth in the morning. Active oxyCODONE (ROXICODONE) 5 MG immediate release tablet Take 5 mg by mouth 10/27/2023 Active Active Problems Problem Noted Date Diagnosed Date Diverticulitis 10/20/2023 Clostridium difficile colitis 08/18/2023 Pancolitis 08/18/2023 Clostridioides difficile infection 07/16/2023 Abdominal abscess 03/25/2023 Pain in penis 10/21/2015 Encounters Date Type Department Care Team Description 11/30/2023 9:00 AM MDT Office Visit [address] [place] [address] Amarilys Lamb PA Clostridium difficile colitis (Primary Dx) 11/24/[address] [place] [address] Mercy Bo RN 11/17/2023 11:00 AM MDT Office Visit [facility] [place] [address] Sybil Steinberg MD Recurrent Clostridium difficile infection (Primary Dx) 11/11/2023 Telephone [facility] [address] [place] [address] Mercy Bo RN 10/21/[address] [place] [address] Mercy Bo RN 10/06/2023 9:00 AM MDT Office Visit [facility] [place] [address] Amarilys Lamb PA Clostridium difficile colitis (Primary Dx); Abdominal abscess ([facility]) 10/06/2023 Telephone [facility] [address] [facility] [address] [place] [address] Mercy Bo RN from Last 3 Months Social History Tobacco [...] Description 02/09/2024 11:00 AM MDT Office Visit [facility] [address] [facility] [address] [place] [address] Sybil Steinberg MD [address] [facility] [address] [place] [address] Health Maintenance Due Date Last Done Comments Pneumococcal PPSV23/PCV13 65 + Years / High and Highest Risk (1 of 4 - PCV) 1951 Influenza Vaccine (Season Ended) 2024
--- OUTSIDE RECORDS SUMMARY | 2023-12-31 14:13 | XMS_ITS | Clinical Summary ---
Author Organization [facility] Address [address] [place] [address] Care Team Providers Care Easement Worker Name Role Phone Juan Pablo Buckley MD Primary Care Provider [phone] Allergies No known active allergies Medications Medication Sig Dispensed Refills Start Date End Date Status simvastatin (ZOCOR) 20 MG tablet Take 20 mg by mouth At Bedtime Active lisinopril (ZESTRIL) 20 MG tablet Take 20 mg by mouth at bedtime Active multivitamin w/minerals (MULTI-VITAMIN) tablet Take 1 tablet by mouth daily Active acetaminophen (TYLENOL) 325 MG tabletIndications: Intra-abdominal abscess (H) Take 2 tablets (650 mg) [...] times daily Active oxyCODONE (ROXICODONE) 5 MG tabletIndications: S/P colectomy Take 1 tablet (5 mg) by mouth every 4 hours as needed for moderate pain 15 tablet 10/27/2023 Active Active Problems Problem Noted Date Diagnosed Date Diverticulitis 10/20/2023 Pancolitis 08/18/2023 C. difficile colitis 08/18/2023 Clostridioides difficile infection 07/16/2023 Intra-abdominal abscess 03/25/2023 Encounters Date Type Department Care Team Description 11/19/2023 Orders Only [facility] [address] [place] [address] Galen Moffett PA-C Fatigue (Primary Dx) 10/20/2023 1:30 PM CDT Anesthesia Event [facility] [address] [place] [address] Brandon Gold MD 10/20/2023 12:50 PM CDT - 10/20/2023 6:30 PM CDT Surgery [facility] [address] [place] [address] Tammy Montoya MD Intraoperative colonoscopy 10/20/2023 10:11 AM CDT - 10/27/2023 3:38 PM CDT Hospital Encounter [place] [address] [facility] [address] [place] [address] Tammy Montoya MD S/P colectomy (Primary Dx) Discharge Disposition: Home-Health Care [facility] 10/20/2023 Travel 10/12/2023 Travel from Last 3 Months Social History Tobacco [...] DTAP/TDAP/TD IMMUNIZATION (1 - Tdap) 07/03/2018 07/02/2018 COVID-19 Vaccine (2022- season) 2023 05/07/2023, 04/20/2022, 01/01/2022, Additional history exists PHQ-2 (once per calendar year) 2023 GLUCOSE 10/24/2026 10/25/2023, 03, 10/22/2023, Additional history exists Pneumococcal Vaccine: 65+ Years Completed 04/15/2018, 07/25/2014 INFLUENZA VACCINE Completed 05/07/2023, , 04/11/2021, Additional [...] - HIM SCAN 10/06/2023 12:00 AM CDT from Last 3 Months Results * Platelet count (10/26/2023 6:08 AM CDT) Only the most recent of3 resultswithin the time period is included. Platelet Count 345 150 - 450 10e3/uL 10/26/2023 6:20 AM CDT LABORATORY Blood STRUCTURE OF RIGHT UPPER LIMB / Unknown Venipuncture / Unknown 10/26/2023 6:08 AM CDT 10/26/2023 6:17 AM CDT Tammy Montoya MD LAB - BLOOD ORDER CHANEL LABORATORY [facility] [address] [facility] Lab (1st floor, no room number) [place] [address], [facility] * Basic metabolic panel (10/25/2023 7:49 AM CDT) Only the most recent of3 resultswithin the time period is included. Sodium [...] MD LAB - BLOOD ORDERABL ES LABORATORY [facility] [address] [facility] Lab (1st floor, no room number) [place] [address], [facility] * (ABNORMAL) CBC with platelets (10/25/2023 7:49 AM CDT) Only the most recent of3 resultswithin the time period is included. WBC Count 9.8 4.0 - 11.0 10e3/uL 10/25/2023 7:59 AM CDT LABORATORY RBC Count 3.91(L) 4.40 - 5.90 10e6/uL 10/25/2023 7:59 AM CDT LABORATORY Hemoglobin 12.0(L) 13.3 - 17.7 g/dL 10/25/2023 7:59 AM CDT LABORATORY Hematocrit 35.9(L) 40.0 - 53.0 % [...] MD LAB - BLOOD ORDERABL ES LABORATORY [facility] [address] Lab (1st floor, no room number) [place] [address] * XR Abdomen Port 1 View (10/23/2023 4:14 PM CDT) Anatomical Region Laterality Modality Abdomen/Pelvis Digital Radiogra phy 10/23/2023 4:14 PM CDT Impressions 10/23/2023 7:05 PM CDT IMPRESSION: Enteric tube in the body the stomach. Overall bowel loops not well assessed on this study for NG tube placement. Narrative 10/23/2023 7:05 PM CDT EXAM: XR ABDOMEN PORT 1 VIEW LOCATION: [facility] DATE: 10/23/2023 INDICATION: NG tube placement COMPARISON: None. Procedure Note Venkat Martinez MD - 10/23/2023 EXAM: XR ABDOMEN PORT 1 VIEW LOCATION: [facility] DATE: 10/23/2023 INDICATION: NG tube placement [...] CDT EXAM: XR ABDOMEN 2 VIEWS LOCATION: [facility] DATE: 10/23/2023 INDICATION: Evaluate for ileus. COMPARISON: CT abdomen and pelvis 08/18/2023. Procedure Note Jillian Nicole MD - 10/23/2023 EXAM: XR ABDOMEN 2 VIEWS LOCATION: [facility] DATE: 10/23/2023 INDICATION: Evaluate for ileus. [...] Tammy Montoya MD LAB - BEAKER POCT Performing Organization Address City/[facility]/ZIP Co de Phone Number LABORATORY POC [facility] [address] Lab (1st floor, no room number) [address] * Phosphorus (10/21/2023 6:22 AM CDT) Phosphorus 2.9 2.5 - 4.5 mg/dL 10/21/2023 6:58 AM CDT [facility] LABORATORY Blood STRUCTURE OF RIGHT UPPER LIMB / Unknown Venipuncture / Unknown 10/21/2023 6:22 AM CDT 10/21/2023 6:31 AM CDT Tammy Montoya MD LAB - BLOOD ORDER CHANEL Performing Organization Address City/[facility]/ZIP Co de Phone Number [facility] [address] Lab (1st floor, no room number) [address] * Magnesium (10/21/2023 6:22 AM CDT) Magnesium 1.8 1.7 - 2.3 mg/dL 10/21/2023 6:58 AM CDT [facility] LABORATORY Blood STRUCTURE OF RIGHT UPPER LIMB / Unknown Venipuncture / Unknown 10/21/2023 6:22 AM CDT 10/21/2023 6:31 AM CDT Tammy Montoya MD LAB - BLOOD ORDER CHANEL [facility] [address] Lab (1st floor, no room number) [address] * Surgical Pathology Exam (10/20/2023 1:59 PM CDT) Case Report Surgical Pathology Report ? Case: [id number] ? Authorizing Provider: ??Tammy Montoya MD ?? Collected: ? 10/20/2023 01:59 PM ? Ordering Location: ? [facility] ?? Received: ?10/20/2023 02:44 PM ? Main [...] Colonic diverticular abscess [ICD-10-CM] 10/22/2023 2:54 PM [facility] Gross Description A(1). Large Intestine, Colon, [...] flowers-pink and contains a normal folding pattern. Medical Records Coder sections are submitted as follows: B1-proximal margin, en face B2-distal margin, en face Q5-X8-wycpit diverticula and mucosa B7-additional portion of bowel mucosa (MEET Oliveira) 10/22/2023 2:54 PM [facility] Microscopic Description Microscopic examination was performed. 10/22/2023 2:54 PM [facility] Performing Labs The technical component of this testing was completed at [facility] 10/22/2023 2:54 PM [facility] Case Images 10/22/2023 2:54 PM [facility] Polyp ASCENDING COLON STRUCTURE / Unknown 10/20/2023 1:59 PM CDT 10/20/2023 2:44 PM CDT Tissue specimen (specimen) SIGMOID COLON PART / Unknown 10/20/2023 4:32 PM CDT 10/20/2023 6:13 PM CDT Tammy Montoya MD LAB - KAYKAY [facility] [address] [facility] Lab (1st floor, no room number) [place] [address] * ANE AIRWAY ETT PERFORMABLE (10/20/2023 1:46 PM CDT) Narrative Layla Abdullahi APRN CRNA - 10/20/2023 1:46 PM CDT Layla Abdullahi APRN CRNA ? 10/20/2023 ??1:52 PM Airway ? Patient location during procedure: OR ? Procedure Start/Stop Times: 10/20/2023 1:46 PM Staff - ? Anesthesiologist: ??Layla Abdullahi APRN CRNA ? Performed By: SOCIAL WORKER Consent for Airway ? Urgency: elective [...] Time: 10/20/2023 1:46 PM Brandon Gold MD [facility] * COLONOSCOPY (10/20/2023 1:02 PM CDT) COLONOSCOPY [facility] Patient Name: Theodore Wu ? Procedure Date: [...] continuously. The ?Olympus Adult Colonoscope, Model # CF-HZ940F, ?[facility] # [id number] was introduced through the ?anus and advanced [...] Procedure Code(s): ? --- Professional --- ? 26547, Colonoscopy, flexible; with removal of tumor(s), polyp(s), or ? other lesion(s) by snare technique CPT copyright 2021 [employer]. All rights reserved. The codes documented in this report are preliminary and upon retail delivery driver review may be revised to meet current compliance requirements. TAMMY MONTOYA MD 10/22/2023 5:35:05 PM I was physically present for the entire viewing portion of the exam. TAMMY MONTOYA MD Number of Addenda: 0 Note Initiated On: 10/20/2023 1:02 PM MRN: ?[id number] Procedure Date: ? 10/20/2023 1:02:04 PM Scope [...] is included. 10/06/2023 Provider Outside ECG ORDERABLES from Last 3 Months Advance Directives For more information, please contact: [phone] * Full Code (Latest Code Status on [...] patie nt/ legal decision maker Care Teams Easement Worker Relationship Specialty Start Date End Date Juan Pablo Buckley MD PCP - General Family Medicine 10/20/23
--- OUTSIDE RECORDS SUMMARY | 2023-12-31 14:13 | XMS_ITS | Encounter Summary ---
Author Organization [facility] Address [address] [place] [address] Phone Care Team Providers Care Engineering Specialist Technician Name Role Phone Unavailable Primary Care Provider Unavailabl e Encounter Details Date Type Department Care Team (Late st Contact Info) Description 10/06/2023 9:00 AM MDT Office Visit [facility] [address] [place] [address] Amarilys Lamb PA [address] [place] [address] Clostridium difficile colitis (Primary Dx); Abdominal abscess ([facility]) Social History Tobacco Use Types Packs/Day [...] [facility]. [facility] was noted that this abscess would not amenable to IR drainage due to location. He signed out AGAINST MEDICAL ADVICE at that time. He also has history of chronic low back pain with finding of lumbar stenosis and has been seen by neurosurgery. He was admitted to [facility] from 03/27 - 03/30/23 with acute [...] day course More recently presented again to [facility] with recurrent C.diff. Fidaxomicin again prescribed. Doing [...] Description 02/09/2024 11:00 AM MDT [facility] [address] [place], [place] [address] Sybil Steinberg MD [address] [facility] [address] [place] [address] documented as of this encounter Visit Diagnoses Diagnosis Clostridium difficile colitis- Primary Abdominal abscess ([facility]) documented in this encounter
--- OUTSIDE RECORDS SUMMARY | 2023-12-31 14:13 | XMS_ITS | Continuity of Care Document ---
Author Organization [facility] Address [address] [facility] [address] [place] [address] Phone Care Team Providers Care Traveling Secretary Name Role Phone Emmanuel Marya ROMAN Unavailable [...] by oral route 2 times every week [id number] UNITS - Active Procedures Procedure Date Est [...] Providers Copied on Encounter [facility], [address], [place], [place], [id number], [place] tel:[phone] [facility] No Information 3 [facility]. [address], [place], [address], [place]. tel:[phone] Referring Provider: Kaleb Lee, [address], [place], [address] . tel:[phone] Est Pt Eval 25 Min Malachi [facility], [address], [place], [place], [id number], [place] tel:[phone] [facility] back pain (chief complaint) Body mass index (BMI) 26.0-26.9, adultRadiculopathy, lumbar region 3 Emmanuel Marya. [address], [place], [address], [place]. tel:[phone] Referring Provider: Kaleb Lee, [address], [place], [address] . tel:[phone] Malachi [facility], [address], [place], [place], [id number], [place] tel:[phone] [facility] [place] No Information 3 Jesus Zapata. [address], [place], [place], [id number], [place]. tel:[phone] Referring Provider: Benny Lee, [address], [place], [address] . tel:[phone] [facility], [address], [place], [address], [place] tel:[phone] [facility] back pain (chief complaint) Radiculopathy, lumbar regionRadiculopathy , lumbar region 3 [facility]. [address], [place], [address], [place]. tel:[phone] Referring Provider: Benny Lee, [address], [place], [address] . tel:[phone] [facility], [facility], [address], [place], [place], [id number], [place] tel:[phone] [facility] No Information 3 Jesus Zapata. [address], [address], [place], [address], [place]. tel:[phone] Referring Provider: Benny Lee, [address], [place], [address] . tel:[phone] New Pt Eval 60 Min [facility], [facility], [address], [place], [place], [address], [place] tel:[phone] [facility] back pain (chief complaint) Radiculopathy, lumbar regionVertebrogenic low back painBody mass index (BMI) 27.0-27.9, adult Fe- 3 Foster Florin. [address], [place], [address], [place]. tel:[phone] Referring Provider: Kaleb Lee, [address], [place], [address] . tel:[phone] Family History Family Member Type Diagnosis Age At Onset No Information Payers Payer name Insurance type Covered democrat ID Anen brian(s) Jacki Medicare PPO 16 [id number] Social History Type Description Quantity Date Captured [...] No Information Instructions Date Instruction Additional Infor lucita -Ordered Intracept p rocedure today, implant team [...]
--- OUTSIDE RECORDS SUMMARY | 2023-12-31 14:13 | XMS_ITS | Encounter Summary ---
Author Organization [facility] Sil[facility] bansal Address [address] [place] [address] Phone Care Team Providers Care Manufacturing Process Technician Name Role Phone Unavailable Primary Care Provider Unavailabl e Encounter Details Date Type Department Care Team (Late st Contact Info) Description 11/24/2023 Telephone [employer] [address] [place] [address] [facility] RN Social History Tobacco Use [...] Telephone Encounter - [facility] RN - 11/24/2023 2:58 PM CDT Call to christi and his Dr Steinberg would like patient to have a vanco taper to treat recurrent c diff 125 mg qid x 4 weeks 125 mg tid x 2 weeks 125 mg bid x 2 weeks 125 mg daily x 1 month Left message on [employer] indicating new RX called to pharmacy of record vancomycin prolonged taper. Called with verbal order to John pharmacist Laura at [facility] documented in this encounter Plan of Treatment Upcoming Encounters Date Type Department Care Team (Late st Contact Info) Description 02/09/2024 11:00 AM MDT Office Visit [employer] [address] [place] [address] Sybil Steinberg MD [address] [place] [address] documented as of this encounter Visit Diagnoses Not on filedocumented in this encounter
--- OUTSIDE RECORDS SUMMARY | 2023-12-31 14:13 | XMS_ITS | Encounter Summary ---
Author Organization [facility] Silvia bansal Address [address] [place] [address] Phone Care Team Providers Care Beaming Machine Operator Name Role Phone Unavailable Primary Care Provider Unavailabl e Encounter Details Date Type Department Care Team (Late st Contact Info) Description 10/21/2023 Telephone [employer] [address] [place] [address] [facility] Bo RN Social History Tobacco Use [...] Received a voicemail from Galen DSOUZA with [facility] Patient is currently in patient at [facility] having had a sigmoidectomy. They are calling on treatment for C diff following his surgery. Dr Steinberg is out of the clinic currently. Dr Martin stated that no treatment of C diff is needed. Per office visit note, Patient has been treated until his surgery date to prevent relapse. Spoke to staff at [facility] and they are going to page this message out to Galen DSOUZA. documented in this encounter Plan of Treatment Upcoming Encounters Date Type Department Care Team (Late st Contact Info) Description 02/09/2024 11:00 AM MDT Office Visit [employer] [address] [place] [id number] Sybil Steinberg MD [address] [facility] [address] [place] [address] documented as of this encounter Visit Diagnoses Not on filedocumented in this encounter
--- OUTSIDE RECORDS SUMMARY | 2023-12-31 14:13 | XMS_ITS | Encounter Summary ---
Author Organization [facility] Silvia bansal Address [address] [place] [phone] Phone Care Team Providers Care Primary Care Nurse Name Role Phone Unavailable Primary Care Provider Unavailabl e Encounter Details Date Type Department Care Team (Late st Contact Info) Description 11/11/2023 Telephone [employer] [address] [place] [address] [facility] RN Social History Tobacco Use [...] Description 02/09/2024 11:00 AM MDT Office Visit [employer] [address] [place] [address] Sybil Steinberg MD [address] [facility] [address] [place] [address] documented as of this encounter Visit Diagnoses Not on filedocumented in this encounter
--- OUTSIDE RECORDS SUMMARY | 2023-12-31 14:13 | XMS_ITS | Encounter Summary ---
Author Organization [facility] Silvia bansal Address [address] [place] [address] Phone Care Team Providers Care Depot Agent Name Role Phone Unavailable Primary Care Provider Unavailabl e Encounter Details Date Type Department Care Team (Late st Contact Info) Description 09/29/2023 11:00 AM [facility] Office Visit [employer] [address] [place] [address] Sybil Steinberg MD [address] [place] [address] Abdominal abscess ([facility]) (Primary Dx) Social History Tobacco Use [...] on difficid Was seen in ER at [place] where again Difficid was prescribed. He still [...] [facility] was noted that this abscess would not amenable to IR drainage due to location. He signed out AGAINST MEDICAL ADVICE at that time. He also has history of chronic low back pain with finding of lumbar stenosis and has been seen by neurosurgery. He was admitted to [facility] from 03/27 - 03/30/23 with acute [...] ID in 2 weeks ( [place] call soonerif issues. [facility] documented in this encounter Plan of Treatment Upcoming Encounters Date Type Department Care Team (Late st Contact Info) Description 02/09/2024 11:00 AM MDT Office Visit [facility] [address] [facility] [address] [place], [place] [id number] Sybil Steinberg MD [address] [facility] [address] [place] [address] documented as of this encounter Visit Diagnoses Diagnosis Abdominal abscess (CMS-HCC)- Primary documented in this encounter
--- OUTSIDE RECORDS SUMMARY | 2023-12-31 14:13 | XMS_ITS | Encounter Summary ---
Author Organization [facility] Silvia bansal Address [address] [place] [address] Phone Care Team Providers Care Radar Air Traffic Controller Name Role Phone Unavailable Primary Care Provider Unavailabl e Encounter Details Date Type Department Care Team (Late st Contact Info) Description 10/06/2023 Telephone [employer] [address] [place] [address] Mecry Bo RN Social History Tobacco Use Types [...] Sent 9 days of the vancomycin to [facility] in [place]. Patient stated understanding. documented in this encounter Plan of Treatment Upcoming Encounters Date Type Department Care Team (Late st Contact Info) Description 02/09/2024 11:00 AM MDT Office Visit [employer] [address] [place] [address] Sybil Steinberg MD [address] [facility] [address] [place] [address] documented as of this encounter Visit Diagnoses Not on filedocumented in this encounter
--- NOTE | 2023-12-31 14:14 | CRLHL7_ITS ---
For Patients: As a result of the Century Cures Act, medical imaging exams and procedure reports are released immediately into your electronic medical record. You may view this report before your referring provider. If you have questions, please contact your health care provider. INDICATION: Syncope TECHNIQUE: CT head without contrast. COMPARISON: None. FINDINGS: CSF spaces: Within normal limits for age. Brain parenchyma: The foote-white differentiation is normal. No sign of mass, hemorrhage, or midline shift. Cerebral atrophy. Moderate low-density in the deep white matter. Skull base and calvarium: Mucosal thickening paranasal sinuses the visualized orbits are grossly unremarkable. No skull fractures. IMPRESSION: 1. No intracranial bleed or mass effect. 2. Cerebral atrophy with nonspecific white matter disease, likely microangiopathy. 3. Mild sinus disease. Please note that all CT scans at this facility use dose modulation, iterative reconstruction, and/or weight-based dosing when appropriate to reduce radiation dose to as low as reasonably achievable. Dictated by Ed Peter MD @ 12/31/2023 2:46:01 PM (Electronically Signed)
--- OUTSIDE RECORDS SUMMARY | 2023-12-31 14:14 | XMS_ITS | Encounter Summary ---
Author Organization [facility] Address [address] [place] [address] Care Team Providers Care Fire Sprinkler Inspector Name Role Phone No Ref-Primary, Physician Primary [...] on filedocumented in this encounter Care Teams Fire Sprinkler Inspector Relationship Specialty Start Date End Date No Ref-Primary, Physician PCP - General 03/25/23 10/19/23 documented as of this encounter
--- OUTSIDE RECORDS SUMMARY | 2023-12-31 14:14 | XMS_ITS | Encounter Summary ---
Author Organization [place] Address [address] [place] [address] Care Team Providers Care Wet Press Tender Name Role Phone Juan Pablo Buckley MD [...] on filedocumented in this encounter Care Teams Wet Press Tender Relationship Specialty Start Date End Date Juan Pablo Buckley MD PCP - General Family Medicine 10/20/23 documented as of this encounter
--- OUTSIDE RECORDS SUMMARY | 2023-12-31 14:14 | XMS_ITS | Encounter Summary ---
Author Organization [facility] Address [address] [place] [address] Care Team Providers Care Roller Gold Leaf Name Role Phone Sarina Mello MD Primary Care Provider [phone] Reason for Referral * Home Health Therapies & Aides (Routine: Next available opening) - Pending Review Specialty Diagnoses / Procedures Referred By Henry t Referred To Contact Diagnoses S/P colectomy Kalyn Villagomez PA-C [facility] [address] [facility] [address] [address] Referral ID Status Reason Start Date Expiration Date V isits Requested Visits Authorized [id number] Pending Review 10/27/2023 10/26/2024 1 1 Question [...] 10/27/2023 Provider to follow patient SARINA MELLO [[id number]] Comments Your provider has ordered home health services. If you have not been contacted within 2 days of your discharge please call the selected Home Care agency listed on your Discharge document. If a Home Care agency is NOT listed, please call [phone]. 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] Procedures NE COLONOSCOPY W/WO BRUSH/WASH NE LAP,SURG,COLECTOMY, PARTIAL, W/ANAST NE LAP,SURG,COLECTOMY,W/REMVL TERM ILEUM NE LAP,SURG,COLECTOMY,W/END COLOST & CLOSUR NE LAP,SURG,COLECTOMY,W/ANAST NE LAP, SURG, COLECTOMY, W/ANAST, W/COLOSTOMY NE LAP,SURG,COLECTOMY,TOTAL,W/O PROCTECTOMY NE LAP,SURG,COLECTOMY,TOTAL,W/PRO CTECTOMY NE LAP,SURG,COLECT,TOT,W/PROCTECT ,W/ILEOST NE PART REMOVAL COLON W ANASTOMOSIS NE PART REMOVAL COLON W COLOSTOMY NE PART REMOVAL COLON W END COLOSTOMY NE PART REMOVAL COLON W OSTOMY/MUCOFIST NE PART REMOVAL COLON W COLOPROCTOSTOMY NE PART REMOVAL COLON W COLOPROC,COLOST NE PART REMOVAL COLON,ABD/TRANSANAL TRAVIS NE REMOVAL COLON/ILEOSTOMY ZZC REMOVAL COLON/ILEOSTOMY,CONTINENT NE REMOVAL COLON/PROCTECTOMY/ILEOSTOMY ZZC REMOVAL COLON/PROCTEC/ILEOSTOMY CONT ZZC REMOVAL COLON/PROCTEC/ ILEOANAL ANAST NE REMOVAL COLON/PROCTEC/ILEOANAL ANAST POUCH NE REMVL COLON/TERM ILEUM/ILEOCOLOSTOMY Intraoperative colonoscopy robotic sigmoid colectomy possible open, possible stoma [facility] [address] [place] [address] Referral ID Status Reason Start Date Expiration Date Visits Re quested Visits Authorized [id number] 1 1 Encounter Details Date Type Department Care Team (Latest Contact Info) Description 10/20/2023 10:11 AM CDT - 10/27/2023 3:38 PM CDT Hospital Encounter [place] [address] [facility] [address] [place] [phone] Tammy Montoya MD [facility] [address] [place] [place] [address] S/P colectomy (Primary Dx) Discharge Disposition: Home-Health [...] Villagomez PA-C - 10/27/2023 1:28 PM CDT [facility] Discharge Summary Theodore Wu Age: [age] year old Date of : 1945 Date of Admission: 10/20/2023 Date of Discharge:: 10/27/2023 Admitting Physician: Tammy Montoya MD Discharge Physician: Tammy Montoya MD PCP: Sarina Mello Disposition: Patient discharged from [facility] to home in stable condition. Primary Diagnosis: [...] No DVT No PE No CVA No SC No Enterocutaneous fistula No Peripheral nerve injury No Abscess (not adjacent to anastomosis) No Leak No Treated with: Antibiotics N/A Drain N/A Reoperation N/A within 30 days No Reintubation No Reoperation No Procedure N/A Associated attestation - Tammy Montoya MD - 10/28/2023 12:24 PM CDT Physician Attestation I have reviewed and discussed with the advanced practice provider their discharge plan for Theodore Wu. I did not participate in a [...] Your home care referral was sent to [facility] If you haven't heard from them within the next 24-48 hours, Please call them at [phone] documented in this encounter Medications at Time [...] and faxed them the pt's discharge orders P:[phone] F: [phone]. Sw will continue to be available as needed until discharge. TATIANNA Alvarenga, ASIAN ART CURATOR Inpatient Care Coordination [facility] [phone] * Lexie Bang, PT - 10/27/2023 1:52 [...] goal(s). See goals on Care Plan in [facility] electronic health record for goal [...] questions/paging, please contact the CRS office at [phone]. Galen Moffett PA-C Colon [facility] Rectal Surgery [...] needed, minimize narcotics - Encourage ambulation - [facility] for ppx Disposition: Expected discharge in 1-2 days. Barriers to discharge: Tolerating low fiber diet, pain controlled with oral meds, return of bowel function. For questions/paging, please contact the CRS office at [phone]. Galen Moffett PA-C [facility] Associated attestation - Laura Rojo MD - 10/26/2023 1:08 PM CDT Physician Attestation I saw and evaluated Theodore Wu as part of a shared PLANNING ASSISTANT/PA visit. I personally reviewed the vital signs, medications, and labs. I personally provided a substantive portion of care for this patient and I approve the care plan aswritten by the TRAVIS. I was involved with Medical Decision Making including: Please see A&P for additional details of medical decision making. Theodore Wu is a 78 year old man [...] needed, minimize narcotics - Encourage ambulation - [facility] for ppx For questions/paging, please contact the CRS office at [phone]. Galen Moffett PA-C [facility] CRS Staff. Seen and examined independently. Agree with above. I performed a history and physical examination of the patient and discussed their management with the physician drilling assistant. I reviewed the physician assistants note and agree with the documented findings and plan of care. Adán Mcneal MD FACS FASCRS Colorectal Surgeon [facility] [address], [address] [place] [address] T: [phone] F: [phone] Pager: [phone] [email or web address] * Adán Mcneal MD - 10/24/2023 [...] Colorectal Surgeon [facility] [address], [address] [place] [address] T: [phone] F: [phone] Pager: [phone] [email or web address] Interval History: Xray demonstrating some ileus yesterday. [...] Colorectal Surgeon [facility] [address], [address] [place] [address] T: [phone] F: [phone] Pager: [phone] [email or web address] Interval History: Hypertensive overnight. Reports bloating and [...] Studies - Recent Labs Lab Test 08/18/23 191 PROTTOTAL 6.7 ALBUMIN 3.5 BILITOTAL 0.5 ALKPHOS [...] needed, minimize narcotics - Encourage ambulation - [facility] for ppx Disposition: Expected discharge in 1-2 days. Barriers to discharge: Tolerating low fiber diet, pain controlled with oral meds, return of bowel function. Clinically Significant Risk Factors # Financial/Environmental Concerns: For questions/paging, please contact the CRS office at [phone]. Kalyn Villagomez PA-C [facility] * Satish Zaldivar RN - 10/22/2023 2:32 AM CDT Messaged [...] Evaluation Time PT Eval, Moderate Complexity Minutes (50687) 10 Physical Therapy Goals PT Frequency Daily PT Predicted Duration/Target Date for Goal Attainment 10/27/23 PT Goals Bed Mobility;Transfers;Gait PT: Bed Mobility Supine to/from sit;Rolling;Within precautions;Independent PT: Transfers Modified independent;Bed to/from chair;Sit to/from stand;Assistive device;Within precautions PT: Gait Supervision/stand-by assist;Rolling walker;150 feet Interventions Interventions Quick Adds Therapeutic Activity;Gait Training Therapeutic Activity Therapeutic Activities: dynamic activities to improve functional performance Minutes (67963) 8 Symptoms Noted During/After Treatment Increased pain;Fatigue [...] of session. Gait Training Gait Training Minutes (18506) 8 Symptoms Noted During/After Treatment (Gait Training) [...] needed, minimize narcotics - Encourage ambulation - [facility] for ppx For questions/paging, please contact the CRS office at [phone]. Kalyn Villagomez PA-C [facility] Associated attestation - Laura Rojo MD - 10/21/2023 6:45 PM CDT Physician Attestation I saw and evaluated Theodore Wu as part of a shared PLANNING ASSISTANT/PA visit. I personally reviewed the vital signs, medications, and labs. I personally provided a substantive portion of care for this patient and I approve the care plan aswritten by the TRAVIS. I was involved with Medical Decision Making including: Please see A&P for additional details of medical decision making. Theodore Wu is a 78 year old man [...] I saw the patient): 10/21/23 * Ayo Hughes, OTR - 10/21/2023 9:40 AM CDT 10/21/23 0835 Appointment Info Signing Clinician's Name / Credentials (OT) BAILEY Luevano/L Living Environment People in Home spouse Current Living Arrangements house ([facility]) Home Accessibility no concerns Self-Care Usual Activity [...] weakness Bed Mobility Bed Mobility supine-sit;sit-supine Supine-Sit [place] (Bed Mobility) minimum assist (75% patient effort) Sit-Supine [place] (Bed Mobility) minimum assist (75% patient effort) Transfers Transfers sit-stand transfer;toilet transfer Sit-Stand Transfer Sit-Stand [place] (Transfers) supervision Toilet Transfer [place] Level (Toilet Transfer) supervision Balance Balance Comments Benefits from FWW, history of falls. Activities of Daily Living BADL Assessment/Intervention lower body dressing;grooming Lower Body Dressing Assessment/Training [place] Level (Lower Body Dressing) contact guard assist Grooming Assessment/Training [place] Level (Grooming) supervision Clinical Impression Criteria for [...] Evaluation Time OT Eval, Low Complexity Minutes (19709) 10 OT Goals Therapy Frequency (OT) Daily [...] Management Self-Care/Home Mgmt/ADL, Compensatory, Meal Prep Minutes (76264) 8 Symptoms Noted During/After Treatment (Meal Preparation/Planning [...] at sink. Therapeutic Activities Therapeutic Activity Minutes (64087) 29 Symptoms noted during/after treatment increased pain;fatigue [...] Communication Assessment Patient's communication style: spoken language (Namibian or Bilingual) Hearing Difficulty or Deaf: no [...] Chemical Dependency Status: Values/Beliefs: Spiritual, Cultural Beliefs, Sikh Practices, Values that affect care: Additional Information: [...] will transport at discharge. Referral sent to [facility] for home PT. Addendum Pt accepted by [facility] for home PT. AVS updated. Mili Proctor/TATIANNA Coley LGSW Inpatient Care Coordination Emergency Room Intellectual Property Manager/Float [phone] Mili Proctor LGSW documented in this encounter Miscellaneous Notes * Plan of Care - Luisa Montes OT - 10/27/2023 3:38 PM CDT Occupational Therapy Discharge Summary Reason for therapy discharge: Discharged to home with home therapy. Progress towards therapy goal(s). See goals on Care Plan in Epic electronic health record for goal details. Patient [...] and complete assessments, please see documentation flowsheets. [id number] Pertinent assessments: Pt A&Ox4. SBA with walker [...] shift note. Outcome: Progressing Flowsheets (Taken 10/27/2023 0574) Outcome Evaluation: Pt is passing gas & [...] shift note. Outcome: Progressing Flowsheets (Taken 10/26/2023 2242) Outcome Evaluation: had large bm, passing lots [...] shift note. Outcome: Progressing Flowsheets (Taken 10/26/2023 8324) Outcome Evaluation: ambulating in [place], pain controlled [...] Nausea and Vomiting Relief 10/25/20232303 by Wes Bui, MEDHAT Outcome: Progressing [...] RN Outcome: Progressing 10/25/2023 1348 by Lili Kepm, RN Outcome: Progressing Intervention: Identify and Manage [...] following * Plan of Care - Jeanie cAeves RN - 10/24/2023 11:36 PM CDT Pertinent [...] dim, denies nausea, SOB, complained of abd pain,10/ gave dilaudid 1x oxy 1x Abdominal incisions, [...] note. Outcome: Not Progressing Flowsheets (Taken 10/22/2023 0589) Outcome Evaluation: no gas yet, intermittent abdominal [...] and complete assessments, please see documentation flowsheets. [id number] Pertinent assessments: POD#2. Pt A&Ox4. On 2L NC. Afebrile.Elevated BP other VSS. C/O pain, nausea, & hiccups given prn oxy, one time order of baclofen, & zofran odt. PIV infusing LR at 75mls/hr. MARIZA drain in place with bloody output. B Major Shift Events: After taking oxy & tylenol Pt had a small emesis episode witnessed by charge loader. In addition Pt was found to have home meds in his bed inside of an Altoids container. Treatment Plan: Pain control. O2 support-wean O2. Encourage activity as tolerated. Monitor bowel function. Symptom management. IVF. MRAIZA drain. Bedside Nurse: Satish aZldivar RN Problem: Adult Inpatient Plan of Care [...] Flowsheet Documentation Taken 10/22/2023 0128 by Satish Zaldivar, RN Head of Bed [...] shift note. Outcome: Progressing Flowsheets (Taken 10/21/2023 3393) Outcome Evaluation: Velazquez removed, Capno D/C'd. Pain [...] Fall Risk Recent Flowsheet Documentation Taken 10/21/2023 0811 by Milli Morales RN Safety Promotion/Fall Prevention: [...] Flowsheet Documentation Taken 10/21/2023909 by Milli Morales RNenvironmental science professor Interventions: medication (see MAR) Taken 10/21/2023824 by Milli Morales RNenvironmental science professor Interventions: medication (see MAR) Goal: Readiness for [...] Flowsheet Documentation Taken 10/21/2023909 by Milli Morales RNenvironmental science professor Interventions: medication (see MAR) Taken 10/21/2023824 by Milli Morales RNenvironmental science professor Interventions: medication (see MAR) Goal: Nausea and [...] and complete assessments, please see documentation flowsheets. [id number] Pertinent assessments: POD#1. Pt A&Ox4. On 3L [...] pneumatic leak testing Surgeon: Maddi Montoya MD School Age Program Associate: Kalyn Villagomez PA-C A skilled first helper was necessary due to the technical complexity of the procedure and for the patient's safety. The drilling assistant helped me with positioning, retraction, visualization of the operative field, meticulous wound closure and moreover helped to complete the procedures in a technicallysafe and efficient manner. Second School Age Program Associate: Milli Jacobs MD (colorectal surgery fellow) Anesthesia: [...] 11 cm from the anal verge. Indication: Theodore Wu is a 78 year old [...] gown and gloves. We placed a 19 Gabonese Lit channel drain through the left most [...] interview completed by pre-admitting RN or pre- op/BOBBIN FIXER. Reviewed by pharmacist, including [facility] dispense records, [facility] Care Everywhere, and chart review. Jeffery Menard, Pharm.D., [facility] Last Reviewed by Lesa Reyes RN on 10/12/2023 at 4:31 PM TRAVELING PLANT OPERATOR Med List Medication Sig Last Dose [...] LAB - BLOOD ORDER CHANEL RH LABORATORY [facility] [address] Lab (1st floor, no room number) [place] [address] * (ABNORMAL) CBC with platelets (10/25/2023 7:49 AM CDT) [facility] WBC Count 9.8 4.0 - 11.0 [...] LAB - BLOOD ORDERABL ES RH LABORATORY [facility] [address] Lab (1st floor, no room number) [place] [address] * Basic metabolic panel (10/25/2023 7:49 [...] LAB - BLOOD ORDERABL ES RH LABORATORY [facility] [address] Lab (1st floor, no room number) [place] [address], [facility] * XR Abdomen Port 1 View (10/23/2023 4:14 PM CDT) Anatomical Region Laterality Modality Abdomen/Pelvis Digital Radiogra phy 10/23/2023 4:14 PM CDT Impressions 10/23/2023 7:05 PM CDT IMPRESSION: Enteric tube in the body the stomach. Overall bowel loops not well assessed on this study for NG tube placement. Narrative 10/23/2023 7:05 PM CDT EXAM: XR ABDOMEN PORT 1 VIEW LOCATION: [facility] DATE: 10/23/2023 INDICATION: NG tube placement COMPARISON: None. Procedure Note Venkat Martinez MD - 10/23/2023 EXAM: XR ABDOMEN PORT 1 VIEW LOCATION: [facility] DATE: 10/23/2023 INDICATION: NG tube [...] - 1.17 mg/dL 10/23/2023 10:20 AM CDT RH LABORATORY GFR Estimate 89 >60 mL/min/1. 73m2 10/23/2023 10:20 AM CDT LABORATORY Calcium 10.0 8.8 - 10.2 mg/dL 10/23/2023 10:20 AM CDT LABORATORY Glucose 138(H) 70 - 99 mg/dL 10/23/2023 10:20 AM CDT LABORATORY Blood STRUCTURE OF RIGHT UPPER LIMB / Unknown Venipuncture / Unknown 10/23/2023 9:50 AM CDT 10/23/2023 9:54 AM CDT Adán Mcneal MD LAB - BLOOD ORDERABL ES LABORATORY [facility] [address] [facility] Lab (1st floor, no room number) [place] [address] * XR Abdomen 2 Views [...] CDT EXAM: XR ABDOMEN 2 VIEWS LOCATION: [facility] DATE: 10/23/2023 INDICATION: Evaluate for ileus. COMPARISON: CT abdomen and pelvis 08/18/2023. Procedure Note Jillian Nicole MD - 10/23/2023 EXAM: XR ABDOMEN 2 VIEWS LOCATION: [facility] DATE: 10/23/2023 INDICATION: Evaluate for [...] MD LAB - BLOOD ORDERABL ES LABORATORY [facility] [address] Lab (1st floor, no room number) [place] [address], [facility] * Platelet count (10/23/2023 8:45 AM CDT) Platelet Count 320 150 - 450 10e3/uL 10/23/2023 9:00 AM CDT LABORATORY Blood STRUCTURE OF LEFT UPPER LIMB / Unknown Venipuncture / Unknown 10/23/2023 8:45 AM CDT 10/23/2023 8:57 AM CDT Tammy Montoya MD LAB - BLOOD ORDER CHANEL LABORATORY [facility] [address] Lab (1st floor, no room number) [place] [address] * (ABNORMAL) Glucose by meter (10/22/2023 6:13 AM CDT) GLUCOSE BY METER POCT 149(H) 70 - 99 mg/dL 10/22/2023 6:20 AM CDT LABORATORY POC Blood, Capillary BLOOD SPECIMEN / Unknown 10/22/2023 6:13 AM CDT 10/22/2023 6:20 AM CDT Tammy ALMARAZ - BEAKER POCT Performing Organization Address [facility]/ZIP Co de Phone Number LABORATORY [facility] [address] Lab (1st floor, no room number) [place] [address] * (ABNORMAL) Glucose by meter (10/21/2023 6:35 AM CDT) GLUCOSE BY METER POCT 133(H) 70 - 99 mg/dL 10/21/2023 6:42 AM CDT LABORATORY POC Blood, Capillary BLOOD SPECIMEN / Unknown 10/21/2023 6:35 AM CDT 10/21/2023 6:42 AM CDT Tammy ALMARAZ - BEAKER POCT LABORATORY [facility] Care Lab [address] Lab (1st floor, no room number) [address] * Phosphorus (10/21/2023 6:22 AM CDT) Phosphorus 2.9 2.5 - 4.5 mg/dL 10/21/2023 6:58 AM CDT RH LABORATORY Blood STRUCTURE OF RIGHT UPPER LIMB / Unknown Venipuncture / Unknown 10/21/2023 6:22 AM CDT 10/21/2023 6:31 AM CDT Tammy Montoya MD LAB - BLOOD ORDER CHANEL LABORATORY [facility] [address] Lab (1st floor, no room number) [address] * Magnesium (10/21/2023 6:22 AM CDT) Magnesium 1.8 1.7 - 2.3 mg/dL 10/21/2023 6:58 AM CDT RH LABORATORY Blood STRUCTURE OF RIGHT UPPER LIMB / Unknown Venipuncture / Unknown 10/21/2023 6:22 AM CDT 10/21/2023 6:31 AM CDT Tammy Montoya MD LAB - BLOOD ORDER CHANEL LABORATORY [facility] [address] Lab (1st floor, no room number) [address] * (ABNORMAL) CBC with platelets (10/21/2023 [...] LAB - BLOOD ORDER CHANEL RH LABORATORY [facility] [address] Lab (1st floor, no room number) [place] [address] * (ABNORMAL) Basic metabolic panel (10/21/2023 6:22 AM CDT) [facility] Sodium 137 135 - 145 mmol/L [...] - BLOOD ORDER CHANEL Performing Organization Address City/[facility]/ZIP Co de Phone Number LABORATORY [facility] [address] Lab (1st floor, no room number) [address] * Platelet count (10/20/2023 8:56 PM CDT) Platelet Count 315 150 - 450 10e3/uL 10/20/2023 9:10 PM CDT RH LABORATORY Blood STRUCTURE OF LEFT UPPER LIMB / Unknown Venipuncture / Unknown 10/20/2023 8:56 PM CDT 10/20/2023 9:03 PM CDT Tammy Montoya MD LAB - BLOOD ORDER CHANEL [facility] Lab [address] Lab (1st floor, no room number) [address] * Surgical Pathology Exam (10/20/2023 1:59 PM CDT) Case Report Surgical Pathology Report ? Case: [id number] ? Authorizing Provider: ??Tammy Montoya MD ?? Collected: ? 10/20/2023 01:59 PM ? Ordering Location: ? [facility] ?? Received: ?10/20/2023 02:44 PM ? [...] Colonic diverticular abscess [ICD-10-CM] 10/22/2023 2:54 PM [facility] LAB[facility]ATORY Gross Description A(1). Large Intestine, [...] flowers-pink and contains a normal folding pattern. Yolk Spray Drier sections are submitted as follows: B1-proximal margin, en face B2-distal margin, en face U3-J3-xnekva diverticula and mucosa B7-additional portion of bowel mucosa (MEET Oliveira) 10/22/2023 2:54 PM [facility] Microscopic Description Microscopic examination was performed. 10/22/2023 2:54 PM [facility] LABOR[facility]ORY Performing Labs The technical component of this testing was completed at [facility] 10/22/2023 2:54 PM [facility] Case Images 10/22/2023 2:54 PM [facility] Polyp ASCENDING COLON STRUCTURE / Unknown 10/20/2023 1:59 PM CDT 10/20/2023 2:44 PM CDT Tissue specimen (specimen) SIGMOID COLON PART / Unknown 10/20/2023 4:32 PM CDT 10/20/2023 6:13 PM CDT Tammy ALMARAZ - KAYKAY LOPEZ [facility] Lab [address] Lab (1st floor, no room number) [place] [address] * COLONOSCOPY (10/20/2023 1:02 PM CDT) [facility] Signature COLONOSCOPY [facility] Patient Name: Theodore MontgomeryLucas uW ? Procedure Date: 10/20/2023 1:02 PM ? [...] and ?oxygen saturations were monitored continuously. The ?Yibailin Adult Colonoscope, Model # CF-FI937L, ?Censitrac # [id number] was introduced through the ?anus and advanced [...] Procedure Code(s): ? --- Professional --- ? 48806, Colonoscopy, flexible; with removal of tumor(s), polyp(s), or ? other lesion(s) by snare technique CPT copyright 2021 [employer]. All rights reserved. The codes documented in this report are preliminary and upon refrigeration service technician review may be revised to meet current compliance requirements. TAMMY MONTOYA MD 10/22/2023 5:35:05 PM I was physically present for the entire viewing portion of the exam. TAMMY MONTOYA MD Number of Addenda: 0 Note Initiated On: 10/20/2023 1:02 PM MRN: ?[id number] Procedure Date: ? 10/20/2023 1:02:04 PM Scope [...] CDT [facility] Lab [address] Lab (1st floor, no room number) [place] [address], [facility] * EKG CARDIAC - HIM SCAN [...] management to improve pain control., Starting on Wed10/23/23 at 0000, May give first dose 4 [...] PRN, severe pain, Starting on Wed10/20/23 at 1822, Use [...] analgesic side effects. Hold while on IV REGIONAL GEODETIC ADVISOR or with regular IV opioid dosing. $Given [...] analgesic side effects. Hold while on IV REGIONAL GEODETIC ADVISOR or with regular IV opioid dosing. $Given [...] Provider: Latesha Finn)1638 ($Given - Provider: Wes uBi, MEDHAT) 0039 ($Given - Provider: Satish Zaldivar [...] 1 HOUR PRN, sore throat, Starting on Wed10/24/23 at 1541 diazepam (VALIUM) injection 2.5 mg [...] analgesic side effects. Hold while on IV REGIONAL GEODETIC ADVISOR or with regular IV opioid dosing. 0435 [...] analgesic side effects. Hold while on IV REGIONAL GEODETIC ADVISOR or with regular IV opioid dosing. 0435 [...] analgesic side effects. Hold while on IV REGIONAL GEODETIC ADVISOR or with regular IV opioid dosing. Or oxyCODONE (ROXICODONE) tablet 10 mgJump to med 10 mg, Oral, EVERY 4 HOURS PRN, severe pain, Starting on Wed10/20/23 at 2038, Hold oral PRN dose for analgesic side effects. Notify provider to assess for uncontrolled pain or analgesic side effects. Hold while on IV REGIONAL GEODETIC ADVISOR or with regular IV opioid dosing. documented in this encounter Care Teams Roller Gold Leaf Relationship Specialty Start Date End Date Sarina Mello MD PCP - General Family Medicine 10/20/23 documented as of this encounter
--- OUTSIDE RECORDS SUMMARY | 2023-12-31 14:14 | XMS_ITS | Encounter Summary ---
Author Organization [facility] Address [address] [place] [id number] Care Team Providers Care Non Destructive Testing Inspector Name Role Phone Juan Pablo Buckley MD Primary Care Provider [phone] 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] Procedures TN COLONOSCOPY W/WO BRUSH/WASH TN LAP,SURG,COLECTOMY, PARTIAL, W/ANAST TN LAP,SURG,COLECTOMY,W/REMVL TERM ILEUM TN LAP,SURG,COLECTOMY,W/END COLOST & CLOSUR TN LAP,SURG,COLECTOMY,W/ANAST TN LAP, SURG, COLECTOMY, W/ANAST, W/COLOSTOMY TN LAP,SURG,COLECTOMY,TOTAL,W/O PROCTECTOMY TN LAP,SURG,COLECTOMY,TOTAL,W/PRO CTECTOMY TN LAP,SURG,COLECT,TOT,W/PROCTECT ,W/ILEOST TN PART REMOVAL COLON W ANASTOMOSIS TN PART REMOVAL COLON W COLOSTOMY TN PART REMOVAL COLON W END COLOSTOMY TN PART REMOVAL COLON W OSTOMY/MUCOFIST TN PART REMOVAL COLON W COLOPROCTOSTOMY TN PART REMOVAL COLON W COLOPROC,COLOST TN PART REMOVAL COLON,ABD/TRANSANAL TRAVIS TN REMOVAL COLON/ILEOSTOMY ZZC REMOVAL COLON/ILEOSTOMY,CONTINENT TN REMOVAL COLON/PROCTECTOMY/ILEOSTOMY ZZC REMOVAL COLON/PROCTEC/ILEOSTOMY CONT ZZC REMOVAL COLON/PROCTEC/ ILEOANAL ANAST TN REMOVAL COLON/PROCTEC/ILEOANAL ANAST POUCH TN REMVL COLON/TERM ILEUM/ILEOCOLOSTOMY Intraoperative colonoscopy robotic sigmoid colectomy possible open, possible stoma [facility] [address] [place] [address] Referral ID Status Reason Start Date Expiration Date Visits Re quested Visits Authorized [id number] 1 1 Encounter Details Date Type Department Care Team (Late st Contact Info) Description 10/20/2023 12:50 PM CDT - 10/20/2023 6:30 PM CDT Surgery [facility] [address] [place] [phone] Tammy Montoya MD COLO & RECTAL SURGERY [address] [id number] Intraoperative colonoscopy Surgery Details Date/Time Status Location OR Service Patient Class Case Class Case Type Trauma Case? 10/20/23 12:50 PM Posted OR OR 01 General Surgery Admit Elective Panel 1 Procedure LRB Anes Op Region Wound Class Comments Intraoperative colonoscopy N/A General Rectum II- Clean Contaminated robotic sigmoid colectomy converted to open N/A General Abdomen III-Contaminated Surgeon Surgeon Role Service Panel Kalyn Villagomez PA-C Assisting Director Of Pharmacy Authori zation 1 Tammy Montoya MD Primary General 1 Milli Jacobs MD Fellow - Assisting [place]-Rectal 1 Special Needs 4hr req documented in [...] Villagomez PA-C - 10/27/2023 1:28 PM CDT [facility] Discharge Summary Christi Wu Age: [age] year old Date of : 1945 Date of Admission: 10/20/2023 Date of Discharge:: 10/27/2023 Admitting Physician: Tammy Montoya MD Discharge Physician: Tammy Montoya MD PCP: Juan Pablo Buckley Disposition: Patient discharged from [facility] to home in stable condition. [...] week(s) Discharge follow-up: Follow up with Dr. oMntoya in 3-4 weeks Wound care: May get [...] No DVT No PE No CVA No OK No Enterocutaneous fistula No Peripheral nerve injury [...] Your home care referral was sent to [facility] If you haven't heard from them within the next 24-48 hours, Please call them at [phone] documented in this encounter Medications at Time [...] and faxed them the pt's discharge orders P:[phone] F: [phone]. Sw will continue to be available as needed until discharge. TATIANNA Alvarenga, [facility] Inpatient Care Coordination [facility] [phone] * Lexie Bang PT - 10/27/2023 1:52 PM CDT PT: Noted in chart pt with discharge orders. Stopped in pt's room to check in if he had any additional mobility concerns to address prior to discharge and pt denied concern. Has been mobilizing well with previous PT sessions and with [facility] staff. Physical Therapy Discharge Summary Reason for therapy discharge: Discharged to home. Progress towards therapy goal(s). See goals on Care Plan in Epic electronic health record for goal details. Goals [...] questions/paging, please contact the CRS office at [phone]. Galen Moffett PA-C Colon & Rectal Surgery [...] questions/paging, please contact the CRS office at [phone]. Galen Moffett PA-C [facility] Associated attestation - Laura Rojo MD - 10/26/2023 1:08 PM CDT Physician Attestation I saw and evaluated Christi Wu as part of a shared CUSTOMER SALES DISTRIBUTOR/PA visit. I personally reviewed the vital signs, [...] questions/paging, please contact the CRS office at [phone]. Galen Moffett PA-C [facility] CRS Staff. Seen and examined independently. Agree with above. I performed a history and physical examination of the patient and discussed their management with the physician physical laboratory assistant. I reviewed the physician assistants note and agree with the documented findings and plan of care. MD JEANE Villegas Colorectal Surgeon [facility] [address] , [address] [place] [address] T: [phone] F: [phone] Pager: [phone] [email or web address] * Adán Mcneal MD - 10/24/2023 [...] Colorectal Surgeon [facility] [address] , [address] [place] [address] T: [phone] F: [phone] Pager: [phone] [email or web address] Interval History: Xray demonstrating some ileus yesterday. [...] Colorectal Surgeon [facility] [address], [address] [place] [address] T: [phone] F: [phone] Pager: [phone] [email or web address] Interval History: Hypertensive overnight. Reports bloating and [...] PLT 315 10/20/2023 PLT 136 (L) 08/21/2023 [facility] Recent Labs Lab Test 10/22/23 0613 10/21/23 [...] needed, minimize narcotics - Encourage ambulation - [facility] for ppx Disposition: Expected discharge in 1-2 days. Barriers to discharge: Tolerating low fiber diet, pain controlled with oral meds, return of bowel function. Clinically Significant Risk Factors # Financial/Environmental Concerns: For questions/paging, please contact the CRS office at [phone]. Kalyn Villagomez PA-C Colon & Rectal Surgery [...] Evaluation Time PT Eval, Moderate Complexity Minutes (46560) 10 Physical Therapy Goals PT Frequency Daily PT Predicted Duration/Target Date for Goal Attainment 10/27/23 PT Goals Bed Mobility;Transfers;Gait PT: Bed Mobility Supine to/from sit;Rolling;Within precautions;Independent PT: Transfers Modified independent;Bed to/from chair;Sit to/from stand;Assistive device;Within precautions PT: Gait Supervision/stand-by assist;Rolling walker;150 feet Interventions Interventions Quick Adds Therapeutic Activity;Gait Training Therapeutic Activity Therapeutic Activities: dynamic activities to improve functional performance Minutes (40193) 8 Symptoms Noted During/After Treatment Increased pain;Fatigue [...] of session. Gait Training Gait Training Minutes (59672) 8 Symptoms Noted During/After Treatment (Gait Training) [...] questions/paging, please contact the CRS office at [phone]. Kalyn Villagomez PA-C [facility] Associated attestation - Laura Rojo MD - 10/21/2023 6:45 PM CDT Physician Attestation I saw and evaluated Christi Wu as part of a shared CUSTOMER SALES DISTRIBUTOR/PA visit. I personally reviewed the vital signs, [...] in Home spouse Current Living Arrangements house ([facility]) Home Accessibility no concerns Self-Care Usual [...] weakness Bed Mobility Bed Mobility supine-sit;sit-supine Supine-Sit [place] (Bed Mobility) minimum assist (75% patient effort) Sit-Supine [place] (Bed Mobility) minimum assist (75% patient effort) Transfers Transfers sit-stand transfer;toilet transfer Sit-Stand Transfer Sit-Stand [place] (Transfers) supervision Toilet Transfer [place] Level (Toilet Transfer) supervision Balance Balance Comments Benefits from FWW, history of falls. Activities of Daily Living BADL Assessment/Intervention lower body dressing;grooming Lower Body Dressing Assessment/Training [place] Level (Lower Body Dressing) contact guard assist Grooming Assessment/Training [place] Level (Grooming) supervision Clinical Impression Criteria for [...] Evaluation Time OT Eval, Low Complexity Minutes (17988) 10 OT Goals Therapy Frequency (OT) Daily [...] Management Self-Care/Home Mgmt/ADL, Compensatory, Meal Prep Minutes (97568) 8 Symptoms Noted During/After Treatment (Meal Preparation/Planning [...] at sink. Therapeutic Activities Therapeutic Activity Minutes (92834) 29 Symptoms noted during/after treatment increased pain;fatigue [...] Communication Assessment Patient's communication style: spoken language (Mosotho or Bilingual) Hearing Difficulty or Deaf: no [...] Chemical Dependency Status: Values/Beliefs: Spiritual, Cultural Beliefs, Yazidi Practices, Values that affect care: Additional Information: [...] will transport at discharge. Referral sent to [facility] hub for home PT. Addendum Pt accepted by [facility] [employer] for home PT. AVS updated. Mili Proctor/TATIANNA Coley, JAIMEE Inpatient Care Coordination Emergency Room Flower Picker/Float [phone] Mili Proctor LGSW documented in this encounter Miscellaneous Notes * Plan of Care - Luisa Montes OT - 10/27/2023 3:38 PM CDT Occupational Therapy Discharge Summary Reason for therapy discharge: Discharged to home with home therapy. Progress towards therapy goal(s). See goals on Care Plan in [facility] electronic health record for goal details. [...] and complete assessments, please see documentation flowsheets. [id number] Pertinent assessments: Pt A&Ox4. SBA with walker [...] shift note. Outcome: Progressing Flowsheets (Taken 10/27/2023 6420) Outcome Evaluation: Pt is passing gas & [...] shift note. Outcome: Progressing Flowsheets (Taken 10/26/2023 3762) Outcome Evaluation: had large bm, passing lots [...] shift note. Outcome: Progressing Flowsheets (Taken 10/26/2023 3574) Outcome Evaluation: ambulating in byrne, pain controlled [...] of Bleeding 10/25/2023 1438 by Lili Kemp, RN Outcome: [...] Documentation Taken 10/25/2023 0916 by Lili Kemp, services engineer Interventions: rest medication (see MAR) Goal: Nausea [...] note. Outcome: Not Progressing Flowsheets (Taken 10/22/2023 1185) Outcome Evaluation: no gas yet, intermittent abdominal [...] and complete assessments, please see documentation flowsheets. [id number] Pertinent assessments: POD#2. Pt A&Ox4. On 2L NC. Afebrile.Elevated BP other VSS. C/O pain, nausea, & hiccups given prn oxy, one time order of baclofen, & zofran odt. PIV infusing LR at 75mls/hr. MARIZA drain in place with bloody output. B Major Shift Events: After taking oxy & tylenol Pt had a small emesis episode witnessed by roll mill operator. In addition Pt was found to have [...] note. Outcome: Not Progressing Flowsheets (Taken 10/22/2023 9978) Outcome Evaluation: Pt is voiding, on 2L [...] Promote Comfort Recent Flowsheet Documentation Taken 10/21/2023 0910 by Milli Morales RNservices engineer Interventions: medication (see MAR) Taken 10/21/2023824 by Milli Morales RNservices engineer Interventions: medication (see MAR) Goal: Readiness for [...] Documentation Taken 10/21/2023 09 by Milli Morales RNservices engineer Interventions: medication (see MAR) Taken 10/21/2023824 by Milli Morales RNservices engineer Interventions: medication (see MAR) Goal: Nausea and [...] and complete assessments, please see documentation flowsheets. 5604-1960 Pertinent assessments: POD#1. Pt A&Ox4. On 3L [...] Zaldivar RN Outcome: Not Progressing 10/21/2023702 by Staish Zaldivar RN Outcome: Progressing Goal: Absence of [...] Anesthesia Recovery Recent Flowsheet Documentation Taken 10/21/2023 014 by Satish Zaldivar RN Safety Promotion/Fall Prevention: [...] Jacobs MD - 10/20/2023 6:06 PM CDT [facility] Brief Operative Note Pre-operative diagnosis: Colonic diverticular abscess [K57.20] Post-operative diagnosis Same as pre-operative diagnosis Procedure: Intraoperative colonoscopy, N/A - Rectum robotic sigmoid colectomy converted to open, N/A - Abdomen Surgeon: Surgeon(s) and Role: * Tammy Montoya MD - Primary * Kalyn Villagomez PA-Monique - Assisting * Milli Jacobs MD - [...] pneumatic leak testing Surgeon: Maddi Montoya MD Director Of Pharmacy: Kalyn Villagomez PA-C A skilled waiter/waitress first class was necessary due to the technical complexity of the procedure and for the patient's safety. The physical laboratory assistant helped me with positioning, retraction, visualization of the operative field, meticulous wound closure and moreover helped to complete the procedures in a technicallysafe and efficient manner. Second Director Of Pharmacy: Milli Jacobs MD (colorectal surgery fellow) Anesthesia: [...] gown and gloves. We placed a 19 Hungarian Lit channel drain through the left most [...] * Pharmacy-Admission Medication History - Jeffery Menard [facility] - 10/15/2023 2:21 PM CDT Pre-Admission Medication History Medication history and patient interview completed by pre-admitting RN or pre- op/FLAGMAN. Reviewed by pharmacist, including [facility] dispense records, [facility] Care Everywhere, and chart review. Jeffery Menard, Pharm.D., [facility] Last Reviewed by Lesa Reyes, MEDHAT on 10/12/2023 at 4:31 PM [facility] Med List Medication Sig Last Dose acetaminophen [...] MD LAB - BLOOD ORDER CHANEL LABORATORY [facility] [address] Lab (1st floor, no room number) [place] [address], [facility] * (ABNORMAL) CBC with platelets (10/25/2023 [...] MD LAB - BLOOD ORDERABL ES LABORATORY [facility] [address] [facility] Lab (1st floor, no room number) [place] [address], [facility] * Basic metabolic panel (10/25/2023 7:49 [...] Mcneal MD LAB - BLOOD ORDERABL ES [facility] [address] [facility] Lab (1st floor, no room number) [place] [address] * XR Abdomen Port 1 View (10/23/2023 4:14 PM CDT) Anatomical Region Laterality Modality Abdomen/Pelvis Digital Radiogra phy 10/23/2023 4:14 PM CDT Impressions 10/23/2023 7:05 PM CDT IMPRESSION: Enteric tube in the body the stomach. Overall bowel loops not well assessed on this study for NG tube placement. Narrative 10/23/2023 7:05 PM CDT EXAM: XR ABDOMEN PORT 1 VIEW LOCATION: [facility] DATE: 10/23/2023 INDICATION: NG tube placement COMPARISON: None. Procedure Note Venkat Martinez MD - 10/23/2023 EXAM: XR ABDOMEN PORT 1 VIEW LOCATION: [facility] DATE: 10/23/2023 INDICATION: NG tube placement [...] MD LAB - BLOOD ORDERABL ES LABORATORY [facility] [address] Lab (1st floor, no room number) [place] [address]RUST * XR Abdomen 2 Views (10/23/2023 9:42 [...] CDT EXAM: XR ABDOMEN 2 VIEWS LOCATION: [facility] DATE: 10/23/2023 INDICATION: Evaluate for ileus. COMPARISON: CT abdomen and pelvis 08/18/2023. Procedure Note Jillian Nicole MD - 10/23/2023 EXAM: XR ABDOMEN 2 VIEWS LOCATION: [facility] DATE: 10/23/2023 INDICATION: Evaluate for ileus. [...] Mcneal MD LAB - BLOOD ORDERABL ES [facility] [address] [employer] Lab (1st floor, no room number) [address] [place] [address] * Platelet count (10/23/2023 8:45 AM CDT) Platelet Count 320 150 - 450 10e3/uL 10/23/2023 9:00 AM CDT LABORATORY Blood STRUCTURE OF LEFT UPPER LIMB / Unknown Venipuncture / Unknown 10/23/2023 8:45 AM CDT 10/23/2023 8:57 AM CDT Tammy Montoya MD LAB - BLOOD ORDER CHANEL [facility] [address] Lab (1st floor, no room number) [place] [id number] [place] [address] * (ABNORMAL) Glucose by meter (10/22/2023 6:13 AM CDT) GLUCOSE BY METER POCT 149(H) 70 - 99 mg/dL 10/22/2023 6:20 AM CDT RH LABORATORY POC Blood, Capillary BLOOD SPECIMEN / Unknown 10/22/2023 6:13 AM CDT 10/22/2023 6:20 AM CDT Tammy ALMARAZ - BEAKER POCT LABORATORY [facility] [address] Lab (1st floor, no room number) [place] [phone] [place] [address] * (ABNORMAL) Glucose by meter (10/21/2023 6:35 AM CDT) GLUCOSE BY METER POCT 133(H) 70 - 99 mg/dL 10/21/2023 6:42 AM CDT LABORATORY POC Blood, Capillary BLOOD SPECIMEN / Unknown 10/21/2023 6:35 AM CDT 10/21/2023 6:42 AM CDT Tammy ALMARAZ - BEAKER POCT LABORATORY [facility] [address] Lab (1st floor, no room number) [place] [phone], [facility] * Phosphorus (10/21/2023 6:22 AM CDT) Phosphorus 2.9 2.5 - 4.5 mg/dL 10/21/2023 6:58 AM CDT LABORATORY Blood STRUCTURE OF RIGHT UPPER LIMB / Unknown Venipuncture / Unknown 10/21/2023 6:22 AM CDT 10/21/2023 6:31 AM CDT Tammy Montoya MD LAB - BLOOD ORDER CHANEL [facility] [address] Lab (1st floor, no room number) [place] [address], [facility] * Magnesium (10/21/2023 6:22 AM CDT) Magnesium 1.8 1.7 - 2.3 mg/dL 10/21/2023 6:58 AM CDT RH LABORATORY Blood STRUCTURE OF RIGHT UPPER LIMB / Unknown Venipuncture / Unknown 10/21/2023 6:22 AM CDT 10/21/2023 6:31 AM CDT Tammy Montoya MD LAB - BLOOD ORDER CHANEL [facility] LABORATORY [facility] [address] [facility] Lab (1st floor, no room number) [place] [address] * (ABNORMAL) CBC with platelets (10/21/2023 6:22 [...] MD LAB - BLOOD ORDER CHANEL LABORATORY [facility] [address] Lab (1st floor, no room number) [place] [address], [facility] * (ABNORMAL) Basic metabolic panel (10/21/2023 [...] - BLOOD ORDER CHANEL Performing Organization Address [facility] de Phone Number LABORATORY [facility] [address] Lab (1st floor, no room number) [address] * Platelet count (10/20/2023 8:56 PM CDT) Platelet Count 315 150 - 450 10e3/uL 10/20/2023 9:10 PM CDT LABORATORY Blood STRUCTURE OF LEFT UPPER LIMB / Unknown Venipuncture / Unknown 10/20/2023 8:56 PM CDT 10/20/2023 9:03 PM CDT Tammy Montoya MD LAB - BLOOD ORDER CHANEL Performing Organization Address [facility] de Phone Number [facility] [address] Lab (1st floor, no room number) [address] * Surgical Pathology Exam (10/20/2023 1:59 PM CDT) Case Report Surgical Pathology Report ? Case: [id number] ? Authorizing Provider: ??Tammy Montoya MD ?? Collected: ? 10/20/2023 01:59 PM ? Ordering Location: ? [facility] ?? Received: ?10/20/2023 02:44 PM ? Main [...] flowers-pink and contains a normal folding pattern. Director Of Marketing Communications sections are submitted as follows: B1-proximal margin, en face B2-distal margin, en face O7-G8-zlcidu diverticula and mucosa B7-additional portion of bowel mucosa (MEET Oliveira) 10/22/2023 2:54 PM CDT LABORATORY Microscopic Description Microscopic examination was performed. 10/22/2023 2:54 PM CDT LABORATORY Performing Labs The technical component of this testing was completed at [facility] 10/22/2023 2:54 PM CDT LABORATORY Case Images 10/22/2023 2:54 PM CDT LABORATORY Polyp ASCENDING COLON STRUCTURE / Unknown 10/20/2023 1:59 PM CDT 10/20/2023 2:44 PM CDT Tissue specimen (specimen) SIGMOID COLON PART / Unknown 10/20/2023 4:32 PM CDT 10/20/2023 6:13 PM CDT Tammy Montoya MD LAB - KAYKAY LOPEZ LABORATORY [facility] [address] [facility] Lab (1st floor, no room number) [place] [address] * COLONOSCOPY (10/20/2023 1:02 PM CDT) COLONOSCOPY [facility] Patient Name: Christi Wu ? Procedure Date: [...] continuously. The ?Olympus Adult Colonoscope, Model # CF-UI705W, ?Censitrac # [id number] was introduced through the ?anus and advanced [...] Procedure Code(s): ? --- Professional --- ? 61843, Colonoscopy, flexible; with removal of tumor(s), polyp(s), or ? other lesion(s) by snare technique CPT copyright 2021 [employer]. All rights reserved. The codes documented in this report are preliminary and upon senior mortgage underwriter review may be revised to meet current compliance requirements. TAMMY MONTOYA MD 10/22/2023 5:35:05 PM I was physically present for the entire viewing portion of the exam. TAMMY MONTOYA MD Number of Addenda: 0 Note Initiated On: 10/20/2023 1:02 PM MRN: ?[id number] Procedure Date: ? 10/20/2023 1:02:04 PM Scope [...] MD LAB - BEAKER POCT LABORATORY POC [facility] [address] Lab (1st floor, no room number) [place] [address], [facility] * EKG CARDIAC - HIM SCAN [...] analgesic side effects. Hold while on IV MEDICAL DEVICE or with regular IV opioid dosing. $Given [...] analgesic side effects. Hold while on IV MEDICAL DEVICE or with regular IV opioid dosing. $Given [...] Bui, MEDHAT) 0029 ($Given - Provider: Luanne Cedillo, MEDHAT)0758 ($Given - Provider: Latesha Finn)1638 ($Given - Provider: Wes Bui, MEDHAT) 0039 ($Given - Provider: Satish Zaldivar, MEDHAT)0848 [...] abdomen) 0759 (Patch/Med Removed - Provider: Latesha Finn)2125 (Not Given - Provider: Wes Bui RN - Reason: Patient/family refused) lisinopril (ZESTRIL) tablet 20 mg 20 mg, Oral, AT BEDTIME, First dose on Wed10/21/23 at 2200 2131 ($Given - Provider: Wes Bui RN) 2124 ($Given - Provider: Wes Bui, MEDHAT) simvastatin (ZOCOR) tablet 20 mg 20 mg, Oral, AT BEDTIME, First dose on Bree 10/21/23 at 2200 2131 ($Given - Provider: Wes Bui RN) 212 ($Given - Provider: Wes Bui, MEDHAT) sodium [...] Martínez RN) 1430 ($Given - Provider: Aria Harrison, MEDHAT)1431 ($Given - Provider: Aria Harrison, MEDHAT) benzocaine 20% (HURRICAINE/TOPEX) 20 % spray 0.5-1 mL 0.5-1 mL (1-2 spray), Mouth/Throat, EVERY 3 HOURS PRN, sore throat, Starting on 10/24/23 at 1541 1050 ($Given - Provider: Lili Kemp, RN) 1234 ($Given - Provider: Laura Martínez RN) [...] analgesic side effects. Hold while on IV MEDICAL DEVICE or with regular IV opioid dosing. 0435 [...] analgesic side effects. Hold while on IV MEDICAL DEVICE or with regular IV opioid dosing. 0435 [...] analgesic side effects. Hold while on IV MEDICAL DEVICE or with regular IV opioid dosing. Or oxyCODONE (ROXICODONE) tablet 10 mgJump to med 10 mg, Oral, EVERY 4 HOURS PRN, severe pain, Starting on Wed10/20/23 at 2038, Hold oral PRN dose for analgesic side effects. Notify provider to assess for uncontrolled pain or analgesic side effects. Hold while on IV MEDICAL DEVICE or with regular IV opioid dosing. documented in this encounter Care Teams Non Destructive Testing Inspector Relationship Specialty Start Date End Date Juan Pablo Buckley MD PCP - General Family Medicine 10/20/23 documented as of this encounter
--- OUTSIDE RECORDS SUMMARY | 2023-12-31 14:14 | XMS_ITS | Encounter Summary ---
Author Organization [facility] Address [address] [place] [address]. [place] [address] Care Team Providers Care Director Of Agronomy Name Role Phone No Ref-Primary, Physician Primary Care Provider Juan Pablo Buckley MD Primary Care Provider [phone] Encounter Details Date Type Department Care Team (Late st Contact Info) Description 08/18/[address] [facility] [address] [place] [address] Carlyn Barba MD [facility] [address] [id number] C. difficile diarrhea (Primary Dx) Social History [...] Out C-difficile 08/18/2023 08/18/2023 024 5:02 AM MUSIC RESEARCHER C-difficile 08/18/2023 08/18/2023 09/17/2023 11:3 9 PM MUSIC RESEARCHER documented as of this encounter Care Teams Director Of Agronomy Relationship Specialty Start Date End Date No Ref-Primary, Physician PCP - General 03/25/23 10/19/23 Juan Pablo Buckley MD PCP - General Family Medicine 10/20/23 documented as of this encounter
--- OUTSIDE RECORDS SUMMARY | 2023-12-31 14:14 | XMS_ITS | Referral Summary ---
Author Organization [facility] Address [address] [place] [address] Care Team Providers Care Air Liaison And Special Staff Name Role Phone Juan Pablo Buckley MD Primary Care Provider [phone] Encounters Date Type Department Care Team Description 11/19/2023 Orders Only [facility] [address] [place] [address] Galen Moffett PA-C Fatigue (Primary Dx) 10/20/2023 10:11 AM CDT - 10/27/2023 3:38 PM CDT Hospital Encounter [place] [address] [facility] [address] [place] [address] Tammy Montoya MD S/P colectomy (Primary Dx) Discharge Disposition: Home-Health Care Svc 10/20/2023 1:30 PM CDT Anesthesia Event [facility] Services [address] [place] [address] Brandon Gold MD 10/20/2023 Travel 10/20/2023 12:50 PM CDT - 10/20/2023 6:30 PM CDT Surgery [facility] [address] [place] [address] Tammy Montoya MD Intraoperative colonoscopy 10/12/2023 Travel from Last 3 Months Allergies No known [...] [facility] [address] Lab (1st floor, no room number) [place] [address], [facility] * Basic metabolic panel (10/25/2023 [...] [facility] [address] Lab (1st floor, no room number) [place] [address], [facility] * (ABNORMAL) CBC with platelets [...] LAB - BLOOD ORDERABL ES [facility] LABORATORY [facility] [address] Lab (1st floor, no room number) [place] [address], [facility] * XR Abdomen Port 1 View (10/23/2023 4:14 PM CDT) Anatomical Region Laterality Modality Abdomen/Pelvis Digital Radiogra phy 10/23/2023 4:14 PM CDT Impressions 10/23/2023 7:05 PM CDT IMPRESSION: Enteric tube in the body the stomach. Overall bowel loops not well assessed on this study for NG tube placement. Narrative 10/23/2023 7:05 PM CDT EXAM: XR ABDOMEN PORT 1 VIEW LOCATION: [facility] DATE: 10/23/2023 INDICATION: NG tube placement COMPARISON: None. Procedure Note Venkat Martinez MD - 10/23/2023 EXAM: XR ABDOMEN PORT 1 VIEW LOCATION: [facility] DATE: 10/23/2023 INDICATION: NG tube placement [...] CDT EXAM: XR ABDOMEN 2 VIEWS LOCATION: [facility] DATE: 10/23/2023 INDICATION: Evaluate for ileus. COMPARISON: CT abdomen and pelvis 08/18/2023. Procedure Note Jillian Nicole MD - 10/23/2023 EXAM: XR ABDOMEN 2 VIEWS LOCATION: [facility] DATE: 10/23/2023 INDICATION: Evaluate for ileus. [...] Montoya MD LAB - [facility] LABORATORY [facility] Lab [address] Lab (1st floor, no room number) [address] * Phosphorus (10/21/2023 6:22 AM CDT) Phosphorus 2.9 2.5 - 4.5 mg/dL 10/21/2023 6:58 AM CDT [facility] LAB[facility] Blood STRUCTURE OF RIGHT UPPER LIMB / Unknown Venipuncture / Unknown 10/21/2023 6:22 AM CDT 10/21/2023 6:31 AM CDT Tammy Montoya MD LAB - BLOOD ORDER [facility] Lab [address] Lab (1st floor, no room number) [address] * Magnesium (10/21/2023 6:22 AM CDT) Magnesium 1.8 1.7 - 2.3 mg/dL 10/21/2023 6:58 AM CDT [facility] Blood STRUCTURE OF RIGHT UPPER LIMB / Unknown Venipuncture / Unknown 10/21/2023 6:22 AM CDT 10/21/2023 6:31 AM CDT Tammy Montoya MD LAB - BLOOD ORDER [facility] Acute [facility] Lab [address] [facility] Lab (1st floor, no room number) [place] [address] * Surgical Pathology Exam (10/20/2023 1:59 PM CDT) Case Report Surgical Pathology Report ? Case: [id number] ? Authorizing Provider: ??Tammy Montoya MD ?? Collected: ? 10/20/2023 01:59 PM ? Ordering Location: ? [facility] ?? Received: ?10/20/2023 02:44 PM ? Main OR ? Pathologist: ? Sharad Tyler MD ? Specimens: ?? A) - Large Intestine, Colon, Ascending, ASCENDING COLON POLYP ? B) - Large Intestine, Colon, Sigmoid, Sigmoid colon - suture madison distal ? 10/22/2023 2:54 PM CDT [facility] LAB[facility]AT[facility] Final Diagnosis A(1). Colon, Ascending, polyp, [...] diverticular abscess [ICD-10-CM] 10/22/2023 2:54 PM CDT [facility] LAB[facility]AT[facility] Gross Description A(1). Large Intestine, Colon, [...] flowers-pink and contains a normal folding pattern. Base Manager sections are submitted as follows: B1-proximal margin, en face B2-distal margin, en face K7-C2-trlyge diverticula and mucosa B7-additional portion of bowel mucosa (MEET Oliveira) 10/22/2023 2:54 PM CDT LABORATORY Microscopic Description Microscopic examination was performed. 10/22/2023 2:54 PM CDT LABORATORY Performing Labs The technical component of this testing was completed at [facility] 10/22/2023 2:54 PM CDT [facility] LAB[facility]AT[facility] Case Images 10/22/2023 2:54 PM CDT LABORATORY Polyp ASCENDING COLON STRUCTURE / Unknown 10/20/2023 1:59 PM CDT 10/20/2023 2:44 PM CDT Tissue specimen (specimen) SIGMOID COLON PART / Unknown 10/20/2023 4:32 PM CDT 10/20/2023 6:13 PM CDT Tammy Montoya MD LAB - [facility] LABORATORY [facility] [address] Lab (1st floor, no room number) [place] [address] * ANE AIRWAY ETT PERFORMABLE (10/20/2023 1:46 PM CDT) Narrative Layla Abdullahi APRN CRNA - 10/20/2023 1:46 PM CDT Layla Abdullahi APRN SUPERVISOR MATTRESS AND BOXSPRINGS ? 10/20/2023 ??1:52 PM Airway ? Patient location during procedure: OR ? Procedure Start/Stop Times: 10/20/2023 1:46 PM Staff - ? Anesthesiologist: ??Layla Abdullahi APRN SUPERVISOR MATTRESS AND BOXSPRINGS ? Performed By: SUPERVISOR MATTRESS AND BOXSPRINGS Consent for Airway ? Urgency: elective Indications [...] Time: 10/20/2023 1:46 PM Brandon Gold MD [place] ANESTHESIA * COLONOSCOPY (10/20/2023 1:02 PM CDT) [facility] COLONOSCOPY [facility] Patient Name: Theodore MontgomeryLucas Wu ? Procedure [...] and ?oxygen saturations were monitored continuously. The ?Endoclear Adult Colonoscope, Model # CF-HZ209C, ?Censitrac # [id number] was introduced through the ?anus and advanced [...] Procedure Code(s): ? --- Professional --- ? 96864, Colonoscopy, flexible; with removal of tumor(s), polyp(s), or ? other lesion(s) by snare technique CPT copyright 2021 [employer]. All rights reserved. The codes documented in this report are preliminary and upon customer experience intern review may be revised to meet current compliance requirements. TAMMY MONTOYA MD 10/22/2023 5:35:05 PM I was physically present for the entire viewing portion of the exam. TAMMY MONTOYA MD Number of Addenda: 0 Note Initiated On: 10/20/2023 1:02 PM MRN: ?[id number] Procedure Date: ? 10/20/2023 1:02:04 PM Scope [...] Advance Directives For more information, please contact: [phone] * Full Code (Latest Code Status on [...] patie nt/ legal decision maker Care Teams Air Liaison And Special Staff Relationship Specialty Start Date End Date Juan Pablo Buckley MD PCP - General Family Medicine 10/20/23
--- OUTSIDE RECORDS SUMMARY | 2023-12-31 14:14 | XMS_ITS | Encounter Summary ---
Author Organization [facility] Address [address] [place] [address] Care Team Providers Care Second Mate Name Role Phone Juan Pablo Buckley MD Primary Care Provider [phone] Encounter Details Date Type Department Care Team (Late st Contact Info) Description 11/19/2023 Orders Only [facility] [address] [place] [address] Galen Moffett PA-C [facility] [address] [place] [id number] Fatigue (Primary Dx) Social History Tobacco Use Types [...] Type Priority Associated Diagnoses Orde r Schedule Basic metabolic panel Lab Routine Fatigue Expected: 11/19/2023 (Approximate), Expires: 11/18/2024 CBC with platelets Lab Routine Fatigue Expected: 11/19/2023 (Approximate), Expires: 11/18/2024 documented as of this encounter Visit Diagnoses Diagnosis Fatigue- Primary Other malaise and fatigue documented in this encounter Care Teams Second Mate Relationship Specialty Start Date End Date Juan Pablo Buckley MD PCP - General Family Medicine 10/20/23 documented as of this encounter
--- OUTSIDE RECORDS SUMMARY | 2023-12-31 14:14 | XMS_ITS | Encounter Summary ---
Author Organization [facility] Address [address] [place] [address] Care Team Providers Care Body Art Technician Name Role Phone Juan Pablo Buckley MD Primary Care Provider [phone] 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] Procedures SC COLONOSCOPY W/WO BRUSH/WASH SC LAP,SURG,COLECTOMY, PARTIAL, W/ANAST SC LAP,SURG,COLECTOMY,W/REMVL TERM ILEUM SC LAP,SURG,COLECTOMY,W/END COLOST & CLOSUR SC LAP,SURG,COLECTOMY,W/ANAST SC LAP, SURG, COLECTOMY, W/ANAST, W/COLOSTOMY SC LAP,SURG,COLECTOMY,TOTAL,W/O PROCTECTOMY SC LAP,SURG,COLECTOMY,TOTAL,W/PRO CTECTOMY SC LAP,SURG,COLECT,TOT,W/PROCTECT ,W/ILEOST SC PART REMOVAL COLON W ANASTOMOSIS SC PART REMOVAL COLON W COLOSTOMY SC PART REMOVAL COLON W END COLOSTOMY SC PART REMOVAL COLON W OSTOMY/MUCOFIST SC PART REMOVAL COLON W COLOPROCTOSTOMY SC PART REMOVAL COLON W COLOPROC,COLOST SC PART REMOVAL COLON,ABD/TRANSANAL TRAVIS SC REMOVAL COLON/ILEOSTOMY ZZC REMOVAL COLON/ILEOSTOMY,CONTINENT SC REMOVAL COLON/PROCTECTOMY/ILEOSTOMY ZZC REMOVAL COLON/PROCTEC/ILEOSTOMY CONT ZZC REMOVAL COLON/PROCTEC/ ILEOANAL ANAST SC REMOVAL COLON/PROCTEC/ILEOANAL ANAST POUCH SC REMVL COLON/TERM ILEUM/ILEOCOLOSTOMY Intraoperative colonoscopy robotic sigmoid colectomy possible open, possible stoma [facility] [address] [place] [address] Referral ID Status Reason Start Date Expiration Date Visits Re quested Visits Authorized [id number] 1 1 Encounter Details Date Type Department Care Team (Late st Contact Info) Description 10/20/2023 1:30 PM CDT Anesthesia Event [facility] PeriOp Services [address] [place] [address] Brandon Gold MD [facility] [address] [place] [place] [address] Anesthesia Record Procedure Summary Procedure Name Responsible Anesthesiologist Anesthesia Start Time Anesthesia Stop Time Intraoperative colonoscopy (Rectum) Brandon Gold MD 10/20/23 1330 10/20/23 1807 Events Date Time Event Comment 10/20/2023 1232 EXERCISE SCIENCE INTERNSHIP Ready for Procedure 1330 An Start 1333 An Start Data 1334 AN REASSESS I attest that I have identified and re-evaluated the patient immediately before the induction of anesthesia and I am satisfied that the anesthetic plan is suitable for the patient's condition and procedure. The first vital signs recorded are pre- induction. Layla Abdullahi APRN [employer]NSHIP 1343 An Induction 1343 MD Present 1346 [...] prior to removal. 1803 an stop data 180 MD Present 180 An Stop Electronically signed by Margarito Thapa APRN [employer] on October 20, 2023 6:07 PM 1807 [...] Grade View: 1; Adjucts: Stylet; Placement Person: EXERCISE SCIENCE INTERNSHIP; Attempts: 1 10/20/23 1346 by Layla Abdullahi APRN CRNA 10/20/23 1803 by Margarito Thapa APRN CRNA Gastric Tube 10/20/23; 1357; Decompression 10/20/23 1357 by Layla Abdullahi APRN CRNA 10/20/23 1816 by Dana Hull RN Urethral Catheter 10/20/23; 1426; No; Surgical procedure; 16 fr 10/20/23 1426 by Xenia Leal RN 10/21/23 1447 by Milli Morales RN Closed/Suction Drain 10/20/23; 1716; LLQ ; Bulb; 19 Burundian 10/20/23 1716 by Xenia Leal RN 10/22/23 [...] PM Staff - Anesthesiologist: Layla Abdullahi APRN [employer] Performed By: [employer]ERC[employer]IP Consent for Airway Urgency: elective Indications and [...] and realistic alternatives discussed. Questions answered and patient/front office representative(s) expressed understanding. - Discussed: - Discussed [...] ??Layla Abdullahi APRN CRNA ? Performed By: EXERCISE SCI[employer] INTERNSHIP Consent for Airway ? Urgency: elective Indications [...] Time: 10/20/2023 1:46 PM Brandon Gold MD [place] ANESTHESIA documented in this encounter Visit Diagnoses [...] mg documented in this encounter Care Teams Body Art Technician Relationship Specialty Start Date End Date Juan Pablo Buckley MD PCP - General Family Medicine 10/20/23 documented as of this encounter
--- OUTSIDE RECORDS SUMMARY | 2023-12-31 14:14 | XMS_ITS | Encounter Summary ---
Author Organization [facility] Address [address] [place] [address] Care Team Providers Care Doctor'S Assistant Name Role Phone No Ref-Primary, Physician Primary Care Provider Juan Pablo Buckley MD Primary Care Provider [phone] 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] Procedures TX LAP,SURG,COLECTOMY, PARTIAL, W/ANAST TX LAP,SURG,COLECTOMY,W/REMVL TERM ILEUM TX LAP,SURG,COLECTOMY,W/END COLOST & CLOSUR TX LAP,SURG,COLECTOMY,W/ANAST TX LAP, SURG, COLECTOMY, W/ANAST, W/COLOSTOMY TX LAP,SURG,COLECTOMY,TOTAL,W/O PROCTECTOMY TX LAP,SURG,COLECTOMY,TOTAL,W/PROCT ECTOMY TX LAP,SURG,COLECT,TOT,W/PROCTECT,W /ILEOST TX CYSTOURETHROSCOPY W URETERAL CATH TX CYSTOURETHROSCOPY W URETERAL CATH TX CYSTOSCOPY,INSERT URETERAL STENT cystoscopy with bilateral ureteral catheter insertion Periop Services [address] [place] [address] Referral ID Status Reason Start Date Expiration Date Visits Re quested Visits Authorized [id number] 1 1 Encounter Details Date Type Department Care Team (Latest Contact Info) Description 08/20/2023 Hospital Encounter [facility] Services [address] [place] [address] Mauricio Padilla MD [address] [place] [address] Colonic diverticular abscess Social History Tobacco Use [...] C-difficile 08/18/2023 08/18/2023 09/17/2023 11:3 9 PM TEXTILE FINISHER documented as of this encounter Care Teams Doctor'S Assistant Relationship Specialty Start Date End Date No Ref-Primary, Physician PCP - General 03/25/23 10/19/23 Juan Pablo Buckley MD PCP - General Family Medicine 10/20/23 documented as of this encounter
--- OUTSIDE RECORDS SUMMARY | 2023-12-31 14:15 | XMS_ITS | Encounter Summary ---
Author Organization [facility] Address [address] [place] [address]. [place] [address] Care Team Providers Care Quality Measurement Specialist Name Role Phone No Ref-Primary, Physician Primary Care Provider Juan Pablo Buckley MD Primary Care Provider [phone] Encounter Details Date Type Department Care Team (Late st Contact Info) Description 08/17/2023 Orders Only [facility] [address] [place] [address] Carlyn Barba MD [facility] [address] [id number] Social History Tobacco Use Types Packs/Day Years [...] Out C-difficile 08/18/2023 08/18/2023 024 5:02 AM MEDICAL RADIATION DOSIMETRIST C-difficile 08/18/2023 08/18/2023 09/17/2023 11:3 9 PM MEDICAL RADIATION DOSIMETRIST documented as of this encounter Care Teams Quality Measurement Specialist Relationship Specialty Start Date End Date No Ref-Primary, Physician PCP - General 03/25/23 10/19/23 Juan Pablo Buckley MD PCP - General Family Medicine 10/20/23 documented as of this encounter
--- OUTSIDE RECORDS SUMMARY | 2023-12-31 14:15 | XMS_ITS ---
Author Organization [facility] Address [address] [place] [address] Care Team Providers Care Numerical Control Operator Name Role Phone Juan Pablo Buckley MD Primary Care Provider Transitional Care Management Status:Closed (Closed) Start date:10/28/2023 Enrollment date:10/29/2023 End date:11/11/2023 Close reason:Goals met Continued Care and Services Coordination
--- OUTSIDE RECORDS SUMMARY | 2023-12-31 14:15 | XMS_ITS | Encounter Summary ---
Author Organization [facility] Address [facility] 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
--- OUTSIDE RECORDS SUMMARY | 2023-12-31 14:15 | XMS_ITS | Clinical Summary ---
Author Organization [facility] Address [place], [place] [address] Care Team Providers Care Cotton Ginner Name Role Phone Marco A Buckley MD Primary Care Provider [phone] Allergies No known active allergies Medications Medication [...] Comments Blood Pressure 147/74 07/09/2020 3:17 PM CATERING SERVER Pulse 77 07/09/2020 3:17 PM CATERING SERVER Temperature 36.3 ??C (97.4 ??F) 10/21/2015 9:36 AM CD T Respiratory Rate - - Oxygen Saturation 100% 07/09/2020 3:17 PM CATERING SERVER Inhaled Oxygen Concentration - - Weight 85.4 kg (188 lb 3.2 oz) 07/09/2020 3:17 P M CATERING SERVER Height 172.1 cm (5' 7.75) 10/21/2015 9:36 [...] Influenza for age 65+ 03/26/2024 Care Teams Cotton Ginner Relationship Specialty Start Date End Date Marco A Buckley MD PCP - General Family Practice 03/18/23
--- NOTE | 2023-12-31 14:16 | ED.SYNCOPE ---
HPI - Syncope General Chief Complaint: Syncope/Fainted Stated Complaint: Syncope Time Seen by Provider: 12/31/23 14:12 History of Present Illness HPI narrative: This 78-year-old male comes in by ambulance because of a syncopal event. He continued to be unresponsive until ambulance arrived. He was at home in his garage and in a sitting position. When ambulance arrived they laid him down flat on the floor and he awakened rather quickly. He did have low blood pressures initially but arrives here with reassuring vital signs. The patient states that he feels normal and has no complaints. He does not report any injury event. He states that he did have a bowel surgery a couple months ago and is recovering normally from that. He has some chronic back pain that he says needs attention but he needed to have his abdominal surgery first. Related Data Home Medications ?Medication ?Instructions ?Recorded ?Confirmed latanoprost 0.005 % eye drops 1 drp ophthalmic (eye) QDAY 08/05/22 11/10/23 multivitamin (Multiple Vitamins 1 tab PO QDAY 08/05/22 12/31/23 tablet) nicotine 11 mg/24 hr daily mg transdermal Q24H 04/09/23 11/10/23 transdermal patch cholecalciferol (vitamin D3) 125 125 mcg PO QDAY 10/06/23 12/31/23 mcg (5,000 unit) capsule Previous Rx's ?Medication ?Instructions ?Recorded simvastatin 20 mg tablet 20 mg PO QPM #180 tabs 02/01/23 lisinopril 20 mg tablet 20 mg PO DAILY #90 tabs 04/27/23 fidaxomicin 200 mg tablet (Dificid) 200 mg PO Q12H 10 days #20 tabs 11/11/23 alprazolam 0.5 mg tablet 0.5 mg PO BID PRN anxiety #30 tabs 12/17/23 nitroglycerin 0.4 mg sublingual 0.4 mg sublingual Q5-15M PRN chest 12/27/23 tablet pain #25 tabs Allergies Allergy/AdvReac Type Severity Reaction Status Date / Time No Known Allergies Allergy Unknown Unknown Verified 12/31/23 14:19 Review of Systems Status of ROS: Reports: 10 or more systems reviewed and unremarkable except as noted in History and below Narrative: Constitutional: No fevers, no weight gain or loss. Eyes: No discharge. No vision changes. HENT: No congestion, no sore throat, no ear pain. Cardiovascular: No chest pain, no palpitations. Respiratory: No shortness of breath, no wheezes, no cough. Gastrointestinal: No abdominal pain, no vomiting, no diarrhea. Genitourinary: No dysuria, no hematuria. Musculoskeletal: Normal range of motion. He reports chronic low back pain. Skin: No rashes, no pruritis. Neurological: No dizziness, weakness, sensory change, speech change. Endo/Heme/Allergies: No bruising or bleeding. No polydipsia. Pysch: no suicidality, no anxiety, no insomnia. All other systems reviewed and are negative. [facility] Medical History (Updated 12/31/23 @ 16:29 by Marco A Pandey MD) History of tinnitus (09/18/09) ?Z86.69 - Personal history of other diseases of the nervous system and sense organs (ICD-10) Surgical History S/P anal fissurectomy ?Z98.890 - Other specified postprocedural states (ICD-10) ?Z87.19 - Personal history of other diseases of the digestive system (ICD-10) Status post coronary artery stent placement ?Z95.5 - Presence of coronary angioplasty implant and graft (ICD-10) Status post cataract extraction ?Z98.49 - Cataract extraction status, unspecified eye (ICD-10) History of tonsillectomy and adenoidectomy (03/07/13) ?Z90.89 - Acquired absence of other organs (ICD-10) History of rhinoplasty (03/07/13) ?Z98.890 - Other specified postprocedural states (ICD-10) Social History Smoking Status: Current every day smoker What tobacco products do you use: cigarettes Smoking packs per day: 2 Smoking cigarettes per day: 40.0 Years smoked: 65 Smoking pack-years: 130.00 Do you use any of these nicotine containing products: None Second hand tobacco smoke exposure: No How often do you have a drink containing alcohol: never AUDIT-C Alcohol total score: 0 Non-prescribed substance use: denies use service: Yes Exam Narrative: Exam Narrative: Constitutional: Well-developed, well-nourished, no acute distress. HEENT: Normocephalic, atraumatic. Neck: Normal range of motion. Nontender. Supple. Heart: Regular. No murmurs. Normal rate. Intact distal pulses. Lungs: Clear to auscultation. No chest discomfort. No wheezes, rhonchi, or rales. Abdomen: Normal bowel sounds. Nontender. No rebound tenderness. Genitalia: Deferred. Back: No midline tenderness. Normal range of motion. Extremities: Normal range of motion. No injury. Skin: Intact. No rash. Warm. No erythema or pallor. Neurologic: No altered sensation. No weakness. Alert and oriented. GCS is 15. No facial asymmetry. Tongue is midline. [id number] is normal. No pronator drift. Woodwork Teacher strength is equal bilaterally. Able to raise each leg from the bed. Psychiatric: No suicidality. No anxiety or depression. No insomnia. Nursing notes and vitals signs are reviewed. Const: Vital Signs, click to edit/add: Vital Signs - 24 hr 12/31/23 14:14 12/31/23 14:44 12/31/23 14:45 Temperature 97.6 F Pulse Rate 79 78 Pulse Rate [Left P ulse Oximeter] 75 Respiratory Rate 18 Blood Pressure 106/52 L Blood Pressure [Ri ght Upper Arm] 83/45 L Pulse Oximetry 97 95 99 Oxygen Delivery [facility] Room Air 12/31/23 14:46 12/31/23 14:46 12/31/23 14:47 Temperature Pulse Rate 80 80 78 Pulse Rate [Left P ulse Oximeter] Respiratory Rate Blood Pressure 106/53 L 106/53 L Blood Pressure [Ri ght Upper Arm] Pulse Oximetry 98 98 97 [facility] 12/31/23 15:00 12/31/23 15:04 12/31/23 15:15 Temperature Pulse Rate 75 74 75 Pulse Rate [Left P ulse Oximeter] Respiratory Rate Blood Pressure Blood Pressure [Ri ght Upper Arm] Pulse Oximetry 98 98 98 Oxygen Delivery [facility] 12/31/23 15:16 12/31/23 15:30 12/31/23 15:31 Temperature Pulse Rate 77 85 81 Pulse Rate [Left P ulse Oximeter] Respiratory Rate Blood Pressure 116/55 L 115/58 L Blood Pressure [Ri ght Upper Arm] Pulse Oximetry 97 83 L 93 Oxygen Delivery Me thod Course Vital Signs Vital signs: Initial Vital Signs Temperature 97.6 F 12/31/23 14:14 Temperature Source Temporal Artery Scan 12/31/23 14:14 Pulse Rate 75 12/31/23 14:14 Respiratory Rate 18 12/31/23 14:14 Blood Pressure 83/45 L 12/31/23 14:14 Blood Pressure Mean 57 L 12/31/23 14:14 Pulse Oximetry 97 12/31/23 14:14 Oxygen Delivery Method Room Air 12/31/23 14:14 Vital Signs Temperature 97.6 F 12/31/23 14:14 Pulse Rate 75 12/31/23 14:14 Respiratory Rate 18 12/31/23 14:14 Blood Pressure 83/45 L 12/31/23 14:14 Pulse Oximetry 97 12/31/23 14:14 Oxygen Delivery Method Room Air 12/31/23 14:14 Temperature 97.6 F 12/31/23 14:14 Pulse Rate 81 12/31/23 15:31 Respiratory Rate 18 12/31/23 14:14 Blood Pressure 115/58 L 12/31/23 15:31 Pulse Oximetry 93 12/31/23 15:31 Oxygen Delivery Method Room Air 12/31/23 14:14 Medications Administered Medications: Discontinued Medications Generic Name Dose Route Start Last Admin Trade Name Freq PRN Reason Stop Dose Admin Sodium Chloride 1,000 mls @ 1,000 mls/hr 12/31/23 14:30 12/31/23 15:30 0.9 % Sodium Chloride 1000 Ml IV 12/31/23 15:29 Infused .Q1H TALAT Infusion MDM - Syncope MDM Narrative Medical decision making narrative: This patient comes in for evaluation of syncopal event as described above. A CT scan of his head is obtained and returns with reassuring findings. Additionally his lab results are also within normal range except for notable increase in his white blood cell count with a left shift. The patient is currently taking vancomycin because of a C diff infection and did have a bowel surgery a couple months ago. The patient has normal vital signs here. He was able to get up to the bathroom without any difficulty. He is repeatedly stating that he wants to go home. It seems okay for him to be discharged. I encouraged him to continue with his vancomycin and follow up with his colorectal surgeon and primary physician. Lab Data Labs: Lab Results 12/31/23 Range/Units 15:44 WBC 18.86 H (4.50-11.00) K/uL RBC 4.03 L (4.30-5.90) m/uL Hgb 12.7 L (13.5-17.5) gm/dL Hct 38.6 (37.0-53.0) % MCV 96 (80-100) fL MCH 32 (26-34) pg MCHC 33 (32-36) gm/dL RDW Coeff of Jose 14.6 (11.5-15.5) % Plt Count 265 (140-440) K/uL Neut % (Auto) 88.8 H (42.0-72.0) % Lymph % (Auto) 4.0 L (20-44) % [place] % (Auto) 6.6 (0.0-11.0) % Eos % (Auto) 0.2 (0.0-7.0) % Baso % (Auto) 0.1 (0.0-3.0) % Neut # (Auto) 16.70 H (1.7-7.0) K/uL Lymph # (Auto) 0.80 L (0.90-2.90) K/uL [place] # (Auto) 1.20 H (0.00-0.90) K/UL Eos # (Auto) 0.00 (0.00-0.50) K/uL Baso # (Auto) 0.00 (0.00-0.30) K/uL Abs Immat Gran (auto) 0.10 (0.00-0.30) K/uL Imm/Tot Granulo (auto) 0.3 % Sodium 136 (135-149) mmol/L Potassium 4.4 (3.6-5.1) mmol/L Chloride 106 (96-114) mmol/L Carbon Dioxide 27 (20-32) mmol/L Anion Gap 3 L (7-15) mEq/L BUN 25 (7-30) mg/dL Creatinine 0.9 (0.5-1.5) mg/dL Estimated Creat Clear 55.72 Estimated GFR 87 ml/min Glucose 100 (60-115) mg/dL Calcium 8.7 (8.4-10.6) mg/dL POC Troponin I 0.01 (0.01-0.04) ng/ml Imaging Data CT scan - head: Radiologist's impression: 1. No intracranial bleed or mass effect. 2. Cerebral atrophy with nonspecific white matter disease, likely microangiopathy. 3. Mild sinus disease. ECG Data Attestation: I personally reviewed and interpreted this ECG as follows: Interpretation: Normal sinus rhythm. Rate is 75 beats per minute. There are no ST or T-wave abnormalities. Discharge Plan Discharge Clinical Impression: Syncope Patient Disposition: Home w/ Parent or Adult Condition: Improved Additional Instructions: Continue current plans. Follow up with primary physician for ongoing management. Return if symptoms are recurrent or worsening. Prescriptions: No Action nicotine 11 mg/24 hr patch 24 hour transdermal Q24H cholecalciferol (vitamin D3) 125 mcg (5,000 unit) capsule 125 mcg PO QDAY multivitamin [Multiple Vitamins] Tablet 1 tab PO QDAY latanoprost 0.005 % drops 1 drp ophthalmic (eye) QDAY Dificid 200 mg tablet 200 mg PO Q12H 10 Days Qty: 20 0RF simvastatin 20 mg tablet 20 mg PO QPM Qty: 180 1RF lisinopril 20 mg tablet 20 mg PO DAILY Qty: 90 3RF alprazolam 0.5 mg tablet 0.5 mg PO BID PRN (Reason: anxiety) Qty: 30 0RF nitroglycerin 0.4 mg tablet, sublingual 0.4 mg sublingual Q5-15M PRN (Reason: chest pain) Qty: 25 1RF Rx Instructions: PRN CHEST PAIN/ MAX 3 DOSES Follow Up/Referrals: Marco A Buckley MD [Primary Care Provider] - Stand Alone Forms: [employer] Info Instructions
[2023-12-31] MEDS: 0.9 % SODIUM CHLORIDE 1000 ml 1,000 ML IV (14:35)
--- OUTSIDE RECORDS SUMMARY | 2023-12-31 15:10 | XMS_ITS | Encounter Summary ---
Author Organization [facility] Address [address] [place] [address] Phone Care Team Providers Care Director Banking Name Role Phone Unavailable Primary Care Provider Unavailabl e Encounter Details Date Type Department Care Team (Late st Contact Info) Description 11/24/2023 Telephone [employer] [address] [place] [address] Mercy Bo RN Social History Tobacco Use [...] daily x 1 month Left message on [employer] indicating new RX called to pharmacy of record vancomycin prolonged taper. Called with verbal order to [facility] pharmacist Laura at [facility] documented in this encounter Plan of Treatment Upcoming Encounters Date Type Department Care Team (Late st Contact Info) Description 02/09/2024 11:00 AM MDT Office Visit [facility] [address] [place] [address] Sybil Steinberg MD [address] [place] [address] documented as of this encounter Visit Diagnoses Not on filedocumented in this encounter
--- OUTSIDE RECORDS SUMMARY | 2023-12-31 15:10 | XMS_ITS | Encounter Summary ---
Author Organization [facility] Address [address] [place] [address] Phone Care Team Providers Care Statistical Methods Professor Name Role Phone Unavailable Primary Care Provider Unavailabl e Encounter Details Date Type Department Care Team (Late st Contact Info) Description 11/11/2023 Telephone [employer] [address] [place] [address] Mercy Bo RN Social History Tobacco Use [...] Description 02/09/2024 11:00 AM MDT Office Visit [employer] [address] [place] [address] Sybil Steinberg MD [address] [facility] [address] [place] [address] documented as of this encounter Visit Diagnoses Not on filedocumented in this encounter
--- OUTSIDE RECORDS SUMMARY | 2023-12-31 15:10 | XMS_ITS | Encounter Summary ---
Author Organization [facility] bansal Address [address] [place] [address] Phone Care Team Providers Care Admissions Supervisor Name Role Phone Unavailable Primary Care Provider Unavailabl e Encounter Details Date Type Department Care Team (Late st Contact Info) Description 09/29/2023 11:00 AM [facility] [employer] [address] [place] [address] Sybil Steinberg MD [address] [place] [address] Abdominal abscess ([facility]) (Primary Dx) Social History Tobacco Use Types [...] on difficid Was seen in ER at [place] where again Difficid was prescribed. He still [...] [facility] was noted that this abscess would not amenable to IR drainage due to location. He signed out AGAINST MEDICAL ADVICE at that time. He also has history of chronic low back pain with finding of lumbar stenosis and has been seen by neurosurgery. He was admitted to [facility] from 03/27 - 03/30/23 with acute [...] ID in 2 weeks ( lives [place] ) call soonerif issues. [facility] documented in this encounter Plan of Treatment Upcoming Encounters Date Type Department Care Team (Late st Contact Info) Description 02/09/2024 11:00 AM MDT [facility] [address] [facility] [address] [place], [place] [phone] Sybil Steinberg MD [address] [facility] [address] [place] [address] documented as of this encounter Visit Diagnoses Diagnosis Abdominal abscess (CMS-HCC)- Primary documented in this encounter
--- OUTSIDE RECORDS SUMMARY | 2023-12-31 15:10 | XMS_ITS | Clinical Summary ---
Author Organization [facility] bansal Address [address] [place] [address] Phone Care Team Providers Care Pasting Inspector Name Role Phone Unavailable Primary Care Provider [...] mg by mouth Taper called in to [facility] pharmacy in [place] 125 mg qid x 4 weeks 125 [...] Description 11/30/2023 9:00 AM MDT Office Visit [employer] [address] [place] [address] Amarilys Lamb PA Clostridium difficile colitis (Primary Dx) 11/24/[address] [employer] [address] [place] [address] Mercy Bo RN 11/17/2023 11:00 AM MDT Office Visit [employer] [address] [place] [address] Sybil Steinberg MD Recurrent Clostridium difficile infection (Primary Dx) 11/11/2023 Telephone [employer] [address] [place] [address] Mercy Bo RN 10/21/[address] [place] [address] Mercy Bo RN 10/06/2023 9:00 AM MDT Office Visit [employer] [address] [place] [address] Amarilys Lamb PA Clostridium difficile colitis (Primary Dx); Abdominal abscess ([facility]) 10/06/2023 Telephone [employer] [address] [facility] [address] [place] [address] Mercy Bo RN from Last 3 Months [...] Description 02/09/2024 11:00 AM MDT Office Visit [employer] [address] [facility] [address] [place] [address] Sybil Steinberg MD [address] [facility] [address] [place] [address] Health Maintenance Due Date Last Done Comments Pneumococcal PPSV23/PCV13 65 + Years / High and Highest Risk (1 of 4 - PCV) 1951 Influenza Vaccine (Season Ended) 2024
--- OUTSIDE RECORDS SUMMARY | 2023-12-31 15:10 | XMS_ITS | Encounter Summary ---
Author Organization [facility] bansal Address [address] [place] [address] Phone Care Team Providers Care Power Equipment Mechanics Instructor Name Role Phone Unavailable Primary Care Provider Unavailabl e Encounter Details Date Type Department Care Team (Late st Contact Info) Description 11/30/2023 9:00 AM MDT Office Visit [employer] [facility] [address] [place] [address] Amarilys Lamb PA [address] [place] [address] Clostridium difficile colitis (Primary Dx) [...] [facility] a [facility]. [facility] and it was noted that this abscess would not be amenable to IR drainage due to location. He signed out AMA at that time. He also has history of chronic low back pain with finding of lumbar stenosis and has been seen by neurosurgery. He was admitted to [facility] from 03/27 - 03/30/23 with acute [...] of Fidaxomicin Presented again shortly thereafter to [place] with recurrent C.diff. Fidaxomicin again prescribed. Maintained [...] Description 02/09/2024 11:00 AM MDT [facility] [address] [facility] [address] [place] [address] Sybil Steinberg MD [address] [facility] [address] [place], [place] [address] documented as of this encounter Visit Diagnoses Diagnosis Clostridium difficile colitis- Primary documented in this encounter
--- OUTSIDE RECORDS SUMMARY | 2023-12-31 15:10 | XMS_ITS | Encounter Summary ---
Author Organization [facility] bansal Address [address] [place] [address] Phone Care Team Providers Care Buttonhole Machine Operator Name Role Phone Unavailable Primary Care Provider Unavailabl e Encounter Details Date Type Department Care Team (Late st Contact Info) Description 10/21/2023 Telephone [employer] [address] [place] [address] Mercy Bo RN Social History Tobacco Use [...] Received a voicemail from Galen DSOUZA with [facility] Patient is currently in patient at [facility] having had a sigmoidectomy. They are calling on treatment for C diff following his surgery. Dr Steinberg is out of the clinic currently. Dr Martin stated that no treatment of C diff is needed. Per office visit note, Patient has been treated until his surgery date to prevent relapse. Spoke to staff at [facility] and they are going to page this message out to Galen DSOUZA. documented in this encounter Plan of Treatment Upcoming Encounters Date Type Department Care Team (Late st Contact Info) Description 02/09/2024 11:00 AM MDT Office Visit [employer] [address] [place] [id number] Sybil tSeinberg MD [address] [facility] [address] [place] [address] documented as of this encounter Visit Diagnoses Not on filedocumented in this encounter
--- OUTSIDE RECORDS SUMMARY | 2023-12-31 15:10 | XMS_ITS | Encounter Summary ---
Author Organization [facility] bansal Address [address] [place] [address] Phone Care Team Providers Care Shuttle Inspector Name Role Phone Unavailable Primary Care Provider Unavailabl e Encounter Details Date Type Department Care Team (Late st Contact Info) Description 10/06/2023 9:00 AM MDT Office Visit [employer] [address] [place] [address] Amarilys Lamb PA [address] [place] [address] Clostridium difficile colitis (Primary Dx); Abdominal abscess ([facility]) Social History Tobacco Use Types Packs/Day Years [...] [facility]. [facility] was noted that this abscess would not amenable to IR drainage due to location. He signed out AGAINST MEDICAL ADVICE at that time. He also has history of chronic low back pain with finding of lumbar stenosis and has been seen by neurosurgery. He was admitted to [facility] from 03/27 - 03/30/23 with acute [...] day course More recently presented again to [place] with recurrent C.diff. Fidaxomicin again prescribed. Doing [...] 11:00 AM MDT [facility] [address] [place], [place] [address] Sybil Steinberg MD [address] [facility] [address] [place] [address] documented as of this encounter Visit Diagnoses Diagnosis Clostridium difficile colitis- Primary Abdominal abscess (CMS-HCC) documented in this encounter
--- OUTSIDE RECORDS SUMMARY | 2023-12-31 15:10 | XMS_ITS | Encounter Summary ---
Author Organization [facility] bansal Address [address] [place] [address] Phone Care Team Providers Care Ice Guard Inspector Name Role Phone Unavailable Primary Care Provider Unavailabl e Encounter Details Date Type Department Care Team (Late st Contact Info) Description 10/06/2023 Telephone [employer] [address] [place] [address] Mercy Bo RN Social History Tobacco Use [...] Sent 9 days of the vancomycin to [facility] in [place]. Patient stated understanding. documented in this encounter Plan of Treatment Upcoming Encounters Date Type Department Care Team (Late st Contact Info) Description 02/09/2024 11:00 AM MDT Office Visit [employer] [address] [place] [address] Sybil Steinberg MD [address] [facility] [address] [place] [address] documented as of this encounter Visit Diagnoses Not on filedocumented in this encounter
--- OUTSIDE RECORDS SUMMARY | 2023-12-31 15:10 | XMS_ITS | Encounter Summary ---
Author Organization [facility] Sil[facility] bansal Address [address] [place] [address] Phone Care Team Providers Care Baby Formula Worker Name Role Phone Unavailable Primary Care Provider Unavailabl e Encounter Details Date Type Department Care Team (Late st Contact Info) Description 11/17/2023 11:00 AM MDT Office Visit [employer] [address] [place] [address] Sybil Steinberg MD [address] [place] [address] Recurrent Clostridium difficile infection (Primary [...] seen by neurosurgery. He was admitted to [facility] from 03/27 - 03/30/23 with acute sigmoid [...] Description 02/09/2024 11:00 AM MDT Office Visit [facility] [address] [facility] [address] [place] [address] Sybil Steinberg MD [address] [facility] [address] [place] [address] documented as of this encounter Visit Diagnoses Diagnosis Recurrent Clostridium difficile infection- Primary documented in this encounter
--- OUTSIDE RECORDS SUMMARY | 2023-12-31 15:11 | XMS_ITS | Encounter Summary ---
Author Organization [facility] Address [address] [place] [address] Care Team Providers Care Clinical Audiologist Name Role Phone Juan Pablo Buckley MD [...] on filedocumented in this encounter Care Teams Clinical Audiologist Relationship Specialty Start Date End Date Juan Pablo Buckley MD PCP - General Family Medicine 10/20/23 documented as of this encounter
--- OUTSIDE RECORDS SUMMARY | 2023-12-31 15:11 | XMS_ITS | Continuity of Care Document ---
Author Organization [facility] Address [address] [place] [address] Phone Care Team Providers Care Wood Machinist Apprentice Name Role Phone Emmanuel Marya ROMAN Unavailable [...] by oral route 2 times every week [address] UNITS - Active Procedures Procedure Date Est [...] Providers Copied on Encounter [facility], [address], [place], [place], [id number], [place] tel:[phone] [facility] No Information 3 [facility]. [address], [place], [address], [place]. tel:[phone] Referring Provider: Kaleb Lee, [address], [place], [address] . tel:[phone] Est Pt Eval [address] [facility], [address], [place], [place], [address], [place] tel:[phone] [facility] back pain (chief complaint) Body mass index (BMI) 26.0-26.9, adultRadiculopathy, lumbar region 3 Emmanuel Marya. [address], [place], [address], [place]. tel:[phone] Referring Provider: Kaleb Lee, [address], [place], [address] . tel:[phone] [facility], [address], [place], [place], [id number], [place] tel:[phone] [facility] No Information 3 Jesus Zapata. [address], [address], [place], [place], [address], [place]. tel:[phone] Referring Provider: Benny Lee, [address], [place], [address] . tel:[phone] [facility], [address], [place], [address], [place] tel:[phone] [facility] back pain (chief complaint) Radiculopathy, lumbar regionRadiculopathy , lumbar region 3 [facility]. [address], [place], [address], [place]. tel:[phone] Referring Provider: Benny Lee, [address], [place], [address] . tel:[phone] [facility], [facility], [address], [place], [place], [address], [place] tel:[phone] [facility] No Information 3 Jesus Zapata. [address], [address], [place], [address], [place]. tel:[phone] Referring Provider: Benny Lee, [address], [place], [address] . tel:[phone] New Pt Eval 60 Min [facility], [facility], [address], [place], [place], [address], [place] tel:[phone] [facility] back pain (chief complaint) Radiculopathy, lumbar regionVertebrogenic low back painBody mass index (BMI) 27.0-27.9, adult Fe- 3 Foster Florin. [address], [place], [address], [place]. tel:[phone] Referring Provider: Kaleb Lee, [address], [place], [address] . tel:[phone] Family History Family Member Type Diagnosis Age At Onset No Information Payers Payer name Insurance type Covered libertarian ID Anne brian(s) Jacki Medicare PPO 16 [id number] Social History Type Description Quantity Date Captured [...]
--- OUTSIDE RECORDS SUMMARY | 2023-12-31 15:11 | XMS_ITS | Encounter Summary ---
Author Organization [facility] Address [address] [place] [address] Care Team Providers Care Railroad Dining Car Steward/Stewardess Name Role Phone Juan Pablo Buckley MD Primary Care Provider [phone] 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] Procedures [place] COLONOSCOPY W/WO BRUSH/WASH [place] LAP,SURG,COLECTOMY, PARTIAL, W/ANAST [place] LAP,SURG,COLECTOMY,W/REMVL TERM ILEUM [place] LAP,SURG,COLECTOMY,W/END COLOST & CLOSUR [place] LAP,SURG,COLECTOMY,W/ANAST [place] LAP, SURG, COLECTOMY, W/ANAST, W/COLOSTOMY [place] LAP,SURG,COLECTOMY,TOTAL,W/O PROCTECTOMY [place] LAP,SURG,COLECTOMY,TOTAL,W/PRO CTECTOMY [place] LAP,SURG,COLECT,TOT,W/PROCTECT ,W/ILEOST [place] PART REMOVAL COLON W ANASTOMOSIS [place] PART REMOVAL COLON W COLOSTOMY [place] PART REMOVAL COLON W END COLOSTOMY [place] PART REMOVAL COLON W OSTOMY/MUCOFIST [place] PART REMOVAL COLON W COLOPROCTOSTOMY [place] PART REMOVAL COLON W COLOPROC,COLOST [place] PART REMOVAL COLON,ABD/TRANSANAL TRAVIS [place] REMOVAL COLON/ILEOSTOMY ZZC REMOVAL COLON/ILEOSTOMY,CONTINENT [place] REMOVAL COLON/PROCTECTOMY/ILEOSTOMY ZZC REMOVAL COLON/PROCTEC/ILEOSTOMY CONT ZZC REMOVAL COLON/PROCTEC/ ILEOANAL ANAST [place] REMOVAL COLON/PROCTEC/ILEOANAL ANAST POUCH [place] REMVL COLON/TERM ILEUM/ILEOCOLOSTOMY Intraoperative colonoscopy robotic sigmoid colectomy possible open, possible stoma [facility] [address] [place] [address] Referral ID Status Reason Start Date Expiration Date Visits Re quested Visits Authorized [id number] 1 1 Encounter Details Date Type Department Care Team (Late st Contact Info) Description 10/20/2023 1:30 PM CDT Anesthesia Event [facility] [address] [place] [id number] Brandon Gold MD [facility] [address] [place] [address] Anesthesia Record Procedure Summary Procedure Name Responsible Anesthesiologist Anesthesia Start Time Anesthesia Stop Time Intraoperative colonoscopy (Rectum) Brandon Gold MD 10/20/23 1330 10/20/23 1807 Events Date Time Event Comment 10/20/2023 1232 ELEMENTARY SCHOOL TEACHER'S AIDE Ready for Procedure 1330 An Start 1333 An Start Data 1334 AN REASSESS I attest that I have identified and re-evaluated the patient immediately before the induction of anesthesia and I am satisfied that the anesthetic plan is suitable for the patient's condition and procedure. The first vital signs recorded are pre- induction. Layla Abdullahi APRN ELEMENTARY SCHOOL TEACHER'S AIDE 1343 An Induction 1343 MD Present 1346 [...] Stop Electronically signed by Margarito Thapa APRN ELEMENTARY SCHOOL TEACHER'S AIDE on October 20, 2023 6:07 PM 1807 [...] Grade View: 1; Adjucts: Stylet; Placement Person: ELEMENTARY SCHOOL TEACHER'S AIDE; Attempts: 1 10/20/23 1346 by Layla Abdullahi APRN CRNA 10/20/23 1803 by Margarito Thapa APRN CRNA Gastric Tube 10/20/23; 1357; Decompression 10/20/23 1357 by Layla Abdullahi APRN CRNA 10/20/23 1816 by Dana Hull RN Urethral Catheter 10/20/23; 1426; No; Surgical procedure; 16 fr 10/20/23 1426 by Xenia Leal RN 10/21/23 1447 by Milli Morales RN Closed/Suction Drain 10/20/23; 1716; LLQ ; Bulb; 19 Belarusian 10/20/23 1716 by Xenia Leal RN 10/22/23 [...] PM Staff - Anesthesiologist: Layla Abdullahi APRN ELEMENTARY SCHOOL TEACHER'S AIDE Performed By: ELEMENTARY SCHOOL TEACHER'S AIDE Consent for Airway Urgency: elective Indications and [...] and realistic alternatives discussed. Questions answered and patient/technical service representative(s) expressed understanding. - Discussed: - Discussed [...] ??Layla Abdullahi APRN CRNA ? Performed By: ELEMENTARY SCHOOL TEACHER'S AIDE Consent for Airway ? Urgency: elective Indications [...] Time: 10/20/2023 1:46 PM Brandon Gold MD [place] [facility] documented in this encounter Visit Diagnoses [...] mg documented in this encounter Care Teams Railroad Dining Car Steward/Stewardess Relationship Specialty Start Date End Date Juan Pablo Buckley MD PCP - General Family Medicine 10/20/23 documented as of this encounter
--- OUTSIDE RECORDS SUMMARY | 2023-12-31 15:11 | XMS_ITS | Encounter Summary ---
Author Organization [facility] Address [address] [place] [address] Care Team Providers Care Marquetry Worker Name Role Phone Sarina Mello MD Primary Care Provider [phone] Reason for Referral * Home Health Therapies & Aides (Routine: Next available opening) - Pending Review Specialty Diagnoses / Procedures Referred By Henry t Referred To Contact Diagnoses S/P colectomy Kalyn Villagomez PA-C [facility] [address] [facility] [address] [address] Referral ID Status Reason Start Date Expiration Date V isits Requested Visits Authorized [id number] Pending Review 10/27/2023 10/26/2024 1 1 Question [...] 10/27/2023 Provider to follow patient SARINA MELLO [[id number]] Comments Your provider has ordered home health services. If you have not been contacted within 2 days of your discharge please call the selected Home Care agency listed on your Discharge document. If a Home Care agency is NOT listed, please call [phone]. 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] Procedures AL COLONOSCOPY W/WO BRUSH/WASH AL LAP,SURG,COLECTOMY, PARTIAL, W/ANAST AL LAP,SURG,COLECTOMY,W/REMVL TERM ILEUM AL LAP,SURG,COLECTOMY,W/END COLOST & CLOSUR AL LAP,SURG,COLECTOMY,W/ANAST AL LAP, SURG, COLECTOMY, W/ANAST, W/COLOSTOMY AL LAP,SURG,COLECTOMY,TOTAL,W/O PROCTECTOMY AL LAP,SURG,COLECTOMY,TOTAL,W/PRO CTECTOMY AL LAP,SURG,COLECT,TOT,W/PROCTECT ,W/ILEOST AL PART REMOVAL COLON W ANASTOMOSIS AL PART REMOVAL COLON W COLOSTOMY AL PART REMOVAL COLON W END COLOSTOMY AL PART REMOVAL COLON W OSTOMY/MUCOFIST AL PART REMOVAL COLON W COLOPROCTOSTOMY AL PART REMOVAL COLON W COLOPROC,COLOST AL PART REMOVAL COLON,ABD/TRANSANAL TRAVIS AL REMOVAL COLON/ILEOSTOMY ZZC REMOVAL COLON/ILEOSTOMY,CONTINENT AL REMOVAL COLON/PROCTECTOMY/ILEOSTOMY ZZC REMOVAL COLON/PROCTEC/ILEOSTOMY CONT ZZC REMOVAL COLON/PROCTEC/ ILEOANAL ANAST AL REMOVAL COLON/PROCTEC/ILEOANAL ANAST POUCH AL REMVL COLON/TERM ILEUM/ILEOCOLOSTOMY Intraoperative colonoscopy robotic sigmoid colectomy possible open, possible stoma [facility] [address] [place] [address] Referral ID Status Reason Start Date Expiration Date Visits Re quested Visits Authorized [id number] 1 1 Encounter Details Date Type Department Care Team (Latest Contact Info) Description 10/20/2023 10:11 AM CDT - 10/27/2023 3:38 PM CDT Hospital Encounter [place] [address] [facility] [address] [place] [id number] Tammy Montoya MD [facility] [address] [place] [address] S/P colectomy (Primary Dx) Discharge Disposition: Home-Health [...] Villagomez PA-C - 10/27/2023 1:28 PM CDT [facility] Discharge Summary Theodore Wu Age: [age] year old Date of : 1945 Date of Admission: 10/20/2023 Date of Discharge:: 10/27/2023 Admitting Physician: Tammy Montoya MD Discharge Physician: Tammy Montoya MD PCP: Sarina Mello Disposition: Patient discharged from [facility] to home in stable condition. Primary [...] No DVT No PE No CVA No PR No Enterocutaneous fistula No Peripheral nerve injury [...] Your home care referral was sent to [facility] If you haven't heard from them within the next 24-48 hours, Please call them at [phone] documented in this encounter Medications at Time [...] and faxed them the pt's discharge orders P:[phone] F: [phone]. Sw will continue to be available as needed until discharge. TATIANNA Alvarenga, WASTEWATER TREATMENT SUPERVISOR Inpatient Care Coordination [facility] [phone] * Lexie Bang, PT - 10/27/2023 1:52 [...] questions/paging, please contact the CRS office at [phone]. Galen Moffett PA-C [facility] [...] needed, minimize narcotics - Encourage ambulation - [facility] for ppx Disposition: Expected discharge in 1-2 days. Barriers to discharge: Tolerating low fiber diet, pain controlled with oral meds, return of bowel function. For questions/paging, please contact the CRS office at [phone]. Galen Moffett PA-C [facility] Associated attestation - Laura Rojo MD - 10/26/2023 1:08 PM CDT Physician Attestation I saw and evaluated Theodore Wu as part of a shared TEAM MANAGER/PA visit. I personally reviewed the vital signs, [...] needed, minimize narcotics - Encourage ambulation - [facility] for ppx For questions/paging, please contact the CRS office at [phone]. Galen Moffett PA-C [facility] CRS Staff. Seen and examined independently. Agree with above. I performed a history and physical examination of the patient and discussed their management with the physician corporate law assistant. I reviewed the physician assistants note and agree with the documented findings and plan of care. Adán Mcneal MD FACS FASCRS Colorectal Surgeon [facility] [address], [address] [place] [address] T: [phone] F: [phone] Pager: [phone] [email or web address] * Adán Mcneal MD - 10/24/2023 [...] Colorectal Surgeon [facility] [address], [address] [place] [address] T: [phone] F: [phone] Pager: [phone] [email or web address] Interval History: Xray demonstrating some ileus yesterday. [...] Colorectal Surgeon [facility] [address], [address] [place] [address] T: [phone] F: [phone] Pager: [phone] [email or web address] Interval History: Hypertensive overnight. Reports bloating and [...] needed, minimize narcotics - Encourage ambulation - [facility] for ppx Disposition: Expected discharge in 1-2 days. Barriers to discharge: Tolerating low fiber diet, pain controlled with oral meds, return of bowel function. Clinically Significant Risk Factors # Financial/Environmental Concerns: For questions/paging, please contact the CRS office at [phone]. Kalyn Villagomez PA-C Colon [facility] Rectal Surgery [...] Evaluation Time PT Eval, Moderate Complexity Minutes (03679) 10 Physical Therapy Goals PT Frequency Daily PT Predicted Duration/Target Date for Goal Attainment 10/27/23 PT Goals Bed Mobility;Transfers;Gait PT: Bed Mobility Supine to/from sit;Rolling;Within precautions;Independent PT: Transfers Modified independent;Bed to/from chair;Sit to/from stand;Assistive device;Within precautions PT: Gait Supervision/stand-by assist;Rolling walker;150 feet Interventions Interventions Quick Adds Therapeutic Activity;Gait Training Therapeutic Activity Therapeutic Activities: dynamic activities to improve functional performance Minutes (40953) 8 Symptoms Noted During/After Treatment Increased pain;Fatigue [...] of session. Gait Training Gait Training Minutes (96950) 8 Symptoms Noted During/After Treatment (Gait Training) [...] needed, minimize narcotics - Encourage ambulation - [facility] for ppx For questions/paging, please contact the CRS office at [phone]. Kalyn Villagomez PA-C [facility] Associated attestation - Laura Rojo MD - 10/21/2023 6:45 PM CDT Physician Attestation I saw and evaluated Theodore Wu as part of a shared TEAM MANAGER/PA visit. I personally reviewed the vital signs, [...] in Home spouse Current Living Arrangements house ([facility]) Home Accessibility no concerns Self-Care Usual [...] weakness Bed Mobility Bed Mobility supine-sit;sit-supine Supine-Sit Randolph (Bed Mobility) minimum assist (75% patient effort) Sit-Supine Randolph (Bed Mobility) minimum assist (75% patient effort) Transfers Transfers sit-stand transfer;toilet transfer Sit-Stand Transfer Sit-Stand Randolph (Transfers) supervision Toilet Transfer Randolph Level (Toilet Transfer) supervision Balance Balance Comments Benefits from FWW, history of falls. Activities of Daily Living BADL Assessment/Intervention lower body dressing;grooming Lower Body Dressing Assessment/Training Randolph Level (Lower Body Dressing) contact guard assist Grooming Assessment/Training Randolph Level (Grooming) supervision Clinical Impression Criteria for [...] Evaluation Time OT Eval, Low Complexity Minutes (38541) 10 OT Goals Therapy Frequency (OT) Daily [...] Management Self-Care/Home Mgmt/ADL, Compensatory, Meal Prep Minutes (87333) 8 Symptoms Noted During/After Treatment (Meal Preparation/Planning [...] at sink. Therapeutic Activities Therapeutic Activity Minutes (66983) 29 Symptoms noted during/after treatment increased pain;fatigue [...] Chemical Dependency Status: Values/Beliefs: Spiritual, Cultural Beliefs, Islam Practices, Values that affect care: Additional Information: [...] will transport at discharge. Referral sent to [facility] for home PT. Addendum Pt accepted by [facility] for home PT. AVS updated. Mili Proctor/TATIANNA Coley LGSW Inpatient Care Coordination Emergency Room Family Member Caretaker/Float [phone] Mili Proctor LGSW documented in this encounter [...] and complete assessments, please see documentation flowsheets. [id number] Pertinent assessments: Pt A&Ox4. SBA with walker [...] shift note. Outcome: Progressing Flowsheets (Taken 10/27/2023 0528) Outcome Evaluation: Pt is passing gas & [...] shift note. Outcome: Progressing Flowsheets (Taken 10/26/2023 1442) Outcome Evaluation: ambulating in byrne, pain controlled [...] note. Outcome: Not Progressing Flowsheets (Taken 10/22/2023 4006) Outcome Evaluation: no gas yet, intermittent abdominal [...] and complete assessments, please see documentation flowsheets. [id number] Pertinent assessments: POD#2. Pt A&Ox4. On 2L NC. Afebrile.Elevated BP other VSS. C/O pain, nausea, & hiccups given prn oxy, one time order of baclofen, & zofran odt. PIV infusing LR at 75mls/hr. MARIZA drain in place with bloody output. B Major Shift Events: After taking oxy & tylenol Pt had a small emesis episode witnessed by abstract searcher. In addition Pt was found to have [...] shift note. Outcome: Progressing Flowsheets (Taken 10/21/2023 2389) Outcome Evaluation: Velazquez removed, Capno D/C'd. Pain [...] Fall Risk Recent Flowsheet Documentation Taken 10/21/2023 0897 by Milli Morales RN Safety Promotion/Fall Prevention: [...] Flowsheet Documentation Taken 10/21/2023909 by Milli Morales RNcustomer associate Interventions: medication (see MAR) Taken 10/21/2023824 by Milli Morales RNcustomer associate Interventions: medication (see MAR) Goal: Readiness for [...] Flowsheet Documentation Taken 10/21/2023909 by Milli Morales RNcustomer associate Interventions: medication (see MAR) Taken 10/21/2023824 by Milli Morales RNcustomer associate Interventions: medication (see MAR) Goal: Nausea and [...] and complete assessments, please see documentation flowsheets. [id number] Pertinent assessments: POD#1. Pt A&Ox4. On 3L [...] Jacobs MD - 10/20/2023 6:06 PM CDT [facility] Brief Operative Note Pre-operative diagnosis: Colonic diverticular [...] pneumatic leak testing Surgeon: Maddi Montoya MD Bar Turner: Kalyn Villagomez PA-C A skilled student assistant was necessary due to the technical complexity of the procedure and for the patient's safety. The corporate law assistant helped me with positioning, retraction, visualization of the operative field, meticulous wound closure and moreover helped to complete the procedures in a technicallysafe and efficient manner. Second Bar Turner: Milli Jacobs MD (colorectal surgery fellow) Anesthesia: [...] gown and gloves. We placed a 19 Citizen Of [place] Lit channel drain through the left most [...] interview completed by pre-admitting RN or pre- op/DRAWBRIDGE TENDER. Reviewed by pharmacist, including [facility] dispense records, [facility] Care Everywhere, and chart review. Jeffery Menard, Pharm.D., [facility] Last Reviewed by Lesa Reyes RN on 10/12/2023 at 4:31 PM CLOUD ENGINEER Med List Medication Sig Last Dose acetaminophen [...] LAB - BLOOD ORDER CHANEL RH LABORATORY [facility] Acute Care Lab [address] Lab (1st floor, no room number) [place] [address] * (ABNORMAL) CBC with platelets (10/25/2023 7:49 AM CDT) [facility] WBC Count 9.8 4.0 - 11.0 [...] LAB - BLOOD ORDERABL ES RH LABORATORY [facility] Acute Care Lab [address] Lab (1st floor, no room number) [place] [address] * Basic metabolic panel (10/25/2023 7:49 AM [...] LAB - BLOOD ORDERABL ES RH LABORATORY [facility] Acute Care Lab [address] Lab (1st floor, no room number) [place] [address], [facility] * XR Abdomen Port 1 View (10/23/2023 4:14 PM CDT) Anatomical Region Laterality Modality Abdomen/Pelvis Digital Radiogra phy 10/23/2023 4:14 PM CDT Impressions 10/23/2023 7:05 PM CDT IMPRESSION: Enteric tube in the body the stomach. Overall bowel loops not well assessed on this study for NG tube placement. Narrative 10/23/2023 7:05 PM CDT EXAM: XR ABDOMEN PORT 1 VIEW LOCATION: [facility] DATE: 10/23/2023 INDICATION: NG tube placement COMPARISON: None. Procedure Note Venkat Martinez MD - 10/23/2023 EXAM: XR ABDOMEN PORT 1 VIEW LOCATION: [facility] DATE: 10/23/2023 INDICATION: NG tube placement [...] MD LAB - BLOOD ORDERABL ES LABORATORY [facility] Acute Care Lab [address] [facility] Lab (1st floor, no room number) [place] [address] * XR Abdomen 2 Views (10/23/2023 9:42 [...] CDT EXAM: XR ABDOMEN 2 VIEWS LOCATION: [facility] DATE: 10/23/2023 INDICATION: Evaluate for ileus. COMPARISON: CT abdomen and pelvis 08/18/2023. Procedure Note Jillian Nicole MD - 10/23/2023 EXAM: XR ABDOMEN 2 VIEWS LOCATION: [facility] DATE: 10/23/2023 INDICATION: Evaluate for ileus. [...] MD LAB - BLOOD ORDERABL ES LABORATORY [facility] Acute Care Lab [address] Lab (1st floor, no room number) [place] [address], [facility] * Platelet count (10/23/2023 8:45 AM CDT) Platelet Count 320 150 - 450 10e3/uL 10/23/2023 9:00 AM CDT LABORATORY Blood STRUCTURE OF LEFT UPPER LIMB / Unknown Venipuncture / Unknown 10/23/2023 8:45 AM CDT 10/23/2023 8:57 AM CDT Tammy Montoya MD LAB - BLOOD ORDER CHANEL LABORATORY [facility] Acute Care Lab [address] Lab (1st floor, no room number) [place] [address] * (ABNORMAL) Glucose by meter (10/22/2023 6:13 AM CDT) GLUCOSE BY METER POCT 149(H) 70 - 99 mg/dL 10/22/2023 6:20 AM CDT LABORATORY POC Blood, Capillary BLOOD SPECIMEN / Unknown 10/22/2023 6:13 AM CDT 10/22/2023 6:20 AM CDT Tammy ALMARAZ - BEAKER POCT Performing Organization Address [facility]/ZIP Co de Phone Number LABORATORY [facility] Lab [address] Lab (1st floor, no room number) [place] [address] * (ABNORMAL) Glucose by meter (10/21/2023 6:35 AM CDT) GLUCOSE BY METER POCT 133(H) 70 - 99 mg/dL 10/21/2023 6:42 AM CDT LABORATORY POC Blood, Capillary BLOOD SPECIMEN / Unknown 10/21/2023 6:35 AM CDT 10/21/2023 6:42 AM CDT Tammy ALMARAZ - BEAKER POCT LABORATORY [facility] Care Lab [address] Lab (1st floor, no room number) [address] * Phosphorus (10/21/2023 6:22 AM CDT) Phosphorus 2.9 2.5 - 4.5 mg/dL 10/21/2023 6:58 AM CDT RH LABORATORY Blood STRUCTURE OF RIGHT UPPER LIMB / Unknown Venipuncture / Unknown 10/21/2023 6:22 AM CDT 10/21/2023 6:31 AM CDT Tammy Montoya MD LAB - BLOOD ORDER CHANLE LABORATORY [facility] Acute Care Lab [address] Lab (1st floor, no room number) [address] * Magnesium (10/21/2023 6:22 AM CDT) Magnesium 1.8 1.7 - 2.3 mg/dL 10/21/2023 6:58 AM CDT RH LABORATORY Blood STRUCTURE OF RIGHT UPPER LIMB / Unknown Venipuncture / Unknown 10/21/2023 6:22 AM CDT 10/21/2023 6:31 AM CDT Tammy Montoya MD LAB - BLOOD ORDER CHANEL LABORATORY [facility] Care Lab [address] Lab (1st floor, no room number) [address] * (ABNORMAL) CBC with platelets (10/21/2023 [...] LAB - BLOOD ORDER CHANEL RH LABORATORY [facility] Care Lab [address] Lab (1st floor, no room number) [place] [address] * (ABNORMAL) Basic metabolic panel (10/21/2023 6:22 AM CDT) [facility] Sodium 137 135 - 145 mmol/L [...] - BLOOD ORDER CHANEL Performing Organization Address City/[facility]/ZIP Co de Phone Number LABORATORY [facility] Care Lab [address] [facility] Lab (1st floor, no room number) [address] * Platelet count (10/20/2023 8:56 PM CDT) Platelet Count 315 150 - 450 10e3/uL 10/20/2023 9:10 PM CDT RH LABORATORY Blood STRUCTURE OF LEFT UPPER LIMB / Unknown Venipuncture / Unknown 10/20/2023 8:56 PM CDT 10/20/2023 9:03 PM CDT Tammy Montoya MD LAB - BLOOD ORDER CHANEL [facility] Acute Care Lab [address] Lab (1st floor, no room number) [address] * Surgical Pathology Exam (10/20/2023 1:59 PM CDT) Case Report Surgical Pathology Report ? Case: [id number] ? Authorizing Provider: ??Tammy Montoya MD ?? Collected: ? 10/20/2023 01:59 PM ? Ordering Location: ? [facility] ?? Received: ?10/20/2023 02:44 PM [...] Colonic diverticular abscess [ICD-10-CM] 10/22/2023 2:54 PM [facility] Gross Description A(1). Large Intestine, Colon, [...] flowers-pink and contains a normal folding pattern. Jackscrew Worker sections are submitted as follows: B1-proximal margin, en face B2-distal margin, en face K6-E2-lqqwye diverticula and mucosa B7-additional portion of bowel mucosa (MEET Oliveira) 10/22/2023 2:54 PM [facility] Microscopic Description Microscopic examination was performed. 10/22/2023 2:54 PM [facility] Performing Labs The technical component of this testing was completed at [facility] 10/22/2023 2:54 PM [facility] Case Images 10/22/2023 2:54 PM [facility] Polyp ASCENDING COLON STRUCTURE / Unknown 10/20/2023 1:59 PM CDT 10/20/2023 2:44 PM CDT Tissue specimen (specimen) SIGMOID COLON PART / Unknown 10/20/2023 4:32 PM CDT 10/20/2023 6:13 PM CDT Tammy ALMARAZ - KAYKAY LOPEZ [facility] Acute Care Lab [address] Lab (1st floor, no room number) [place] [address] * COLONOSCOPY (10/20/2023 1:02 PM CDT) [facility] Signature COLONOSCOPY [facility] Patient Name: Theodore MontgomeryLucas Wu ? Procedure [...] and ?oxygen saturations were monitored continuously. The ?[employer] Adult Colonoscope, Model # CF-YY583D, ?Censitrac # [id number] was introduced through the ?anus and advanced [...] Procedure Code(s): ? --- Professional --- ? 13692, Colonoscopy, flexible; with removal of tumor(s), polyp(s), or ? other lesion(s) by snare technique CPT copyright 2021 [employer]. All rights reserved. The codes documented in this report are preliminary and upon massage therapist review may be revised to meet current compliance requirements. TAMMY MONTOYA MD 10/22/2023 5:35:05 PM I was physically present for the entire viewing portion of the exam. TAMMY MONTOYA MD Number of Addenda: 0 Note Initiated On: 10/20/2023 1:02 PM MRN: ?[id number] Procedure Date: ? 10/20/2023 1:02:04 PM Scope [...] CDT [facility] MD [facility] Lab [address] Lab (1st floor, no room number) [place] [address], [facility] * EKG CARDIAC - HIM SCAN [...] analgesic side effects. Hold while on IV LICENSE CLERK or with regular IV opioid dosing. $Given [...] analgesic side effects. Hold while on IV LICENSE CLERK or with regular IV opioid dosing. $Given [...] analgesic side effects. Hold while on IV LICENSE CLERK or with regular IV opioid dosing. 0435 [...] analgesic side effects. Hold while on IV LICENSE CLERK or with regular IV opioid dosing. 0435 [...] analgesic side effects. Hold while on IV LICENSE CLERK or with regular IV opioid dosing. Or oxyCODONE (ROXICODONE) tablet 10 mgJump to med 10 mg, Oral, EVERY 4 HOURS PRN, severe pain, Starting on Wed10/20/23 at 2038, Hold oral PRN dose for analgesic side effects. Notify provider to assess for uncontrolled pain or analgesic side effects. Hold while on IV LICENSE CLERK or with regular IV opioid dosing. documented in this encounter Care Teams Marquetry Worker Relationship Specialty Start Date End Date Sarina Mello MD PCP - General Family Medicine 10/20/23 documented as of this encounter
--- OUTSIDE RECORDS SUMMARY | 2023-12-31 15:11 | XMS_ITS | Encounter Summary ---
Author Organization [facility] Address [address] [place] [address] Care Team Providers Care Office Administrator Name Role Phone Juan Pablo Buckley MD Primary Care Provider [phone] Encounter Details Date Type Department Care Team (Late st Contact Info) Description 11/19/2023 Orders Only [facility] [address] [place], [place] [phone] Galen Moffett PA-C [facility] [address] [place] [id number] Fatigue (Primary Dx) Social History Tobacco Use [...] fatigue documented in this encounter Care Teams Office Administrator Relationship Specialty Start Date End Date Juan Pablo Buckley MD PCP - General Family Medicine 10/20/23 documented as of this encounter
--- OUTSIDE RECORDS SUMMARY | 2023-12-31 15:11 | XMS_ITS | Clinical Summary ---
Author Organization [place] Address [address] [place] [address] Care Team Providers Care Crew Dispatcher Name Role Phone Juan Pablo Buckley MD Primary Care Provider [phone] Allergies No known active allergies Medications Medication [...] Orders Only [facility] [address] [place] [address] Galen Moffett PA-C Fatigue (Primary Dx) 10/20/2023 1:30 PM CDT Anesthesia Event [facility] [address] [place] [address] Brandon Gold MD 10/20/2023 12:50 PM CDT - 10/20/2023 6:[address] [facility] [address] [place] [address] Tammy Montoya MD Intraoperative colonoscopy 10/20/2023 10:11 AM CDT - 10/27/2023 3:38 PM CDT Hospital Encounter [place] [address] [facility] [address] [place] [address] Tammy Montoya MD S/P colectomy (Primary Dx) Discharge Disposition: Home-Health Care [facility] 10/20/2023 Travel 10/12/2023 Travel from Last 3 [...] MD LAB - BLOOD ORDER CHANEL LABORATORY [facility] [address] [facility] Lab (1st floor, no room number) [place] [address], [place] * Basic metabolic panel (10/25/2023 7:49 AM [...] MD LAB - BLOOD ORDERABL ES LABORATORY [facility] [address] [facility] Lab (1st floor, no room number) [place] [address], [place] * (ABNORMAL) CBC with platelets (10/25/2023 7:49 [...] MD LAB - BLOOD ORDERABL ES LABORATORY [facility] [address] Lab (1st floor, no room number) [place] [address] * XR Abdomen Port 1 View (10/23/2023 4:14 PM CDT) Anatomical Region Laterality Modality Abdomen/Pelvis Digital Radiogra phy 10/23/2023 4:14 PM CDT Impressions 10/23/2023 7:05 PM CDT IMPRESSION: Enteric tube in the body the stomach. Overall bowel loops not well assessed on this study for NG tube placement. Narrative 10/23/2023 7:05 PM CDT EXAM: XR ABDOMEN PORT 1 VIEW LOCATION: [facility] DATE: 10/23/2023 INDICATION: NG tube placement COMPARISON: None. Procedure Note Venkat Martinez MD - 10/23/2023 EXAM: XR ABDOMEN PORT 1 VIEW LOCATION: [facility] DATE: 10/23/2023 INDICATION: [...] CDT EXAM: XR ABDOMEN 2 VIEWS LOCATION: [facility] DATE: 10/23/2023 INDICATION: Evaluate for ileus. COMPARISON: CT abdomen and pelvis 08/18/2023. Procedure Note Jillian Nicole MD - 10/23/2023 EXAM: XR ABDOMEN 2 VIEWS LOCATION: [facility] DATE: 10/23/2023 INDICATION: [...] LAB - BEAKER POCT Performing Organization Address City/[facility]/ZIP Co de Phone Number LABORATORY POC [facility] [address] Lab (1st floor, no room number) [address] * Phosphorus (10/21/2023 6:22 AM CDT) Phosphorus 2.9 2.5 - 4.5 mg/dL 10/21/2023 6:58 AM CDT [facility] Blood STRUCTURE OF RIGHT UPPER LIMB / Unknown Venipuncture / Unknown 10/21/2023 6:22 AM CDT 10/21/2023 6:31 AM CDT Tammy Montoya MD LAB - BLOOD ORDER CHANEL Performing Organization Address City/[facility]/ZIP Co de Phone Number [facility] [address] Lab (1st floor, no room number) [address] * Magnesium (10/21/2023 6:22 AM CDT) Magnesium 1.8 1.7 - 2.3 mg/dL 10/21/2023 6:58 AM CDT [facility] LAB[facility] Blood STRUCTURE OF RIGHT UPPER LIMB / Unknown Venipuncture / Unknown 10/21/2023 6:22 AM CDT 10/21/2023 6:31 AM CDT Tammy Montoya MD LAB - BLOOD ORDER CHANEL [facility] Lab [address] Lab (1st floor, no room number) [address] * Surgical Pathology Exam (10/20/2023 1:59 PM CDT) Case Report Surgical Pathology Report ? Case: [id number] ? Authorizing Provider: ??Tammy Montoya MD ?? [...] diverticular abscess [ICD-10-CM] 10/22/2023 2:[address] [facility] Gross Description A(1). Large [...] flowers-pink and contains a normal folding pattern. Lab Rn sections are submitted as follows: B1-proximal margin, en face B2-distal margin, en face Q4-S8-ociiyz diverticula and mucosa B7-additional portion of bowel mucosa (MEET Oliveira) 10/22/2023 2:[address] [facility] Microscopic Description Microscopic examination was performed. 10/22/2023 2:[address] [facility] Performing Labs The technical component of this testing was completed at [facility] 10/22/2023 2:[address] [facility] Case Images 10/22/2023 2:[address] [facility] Polyp ASCENDING COLON STRUCTURE / Unknown 10/20/2023 1:59 PM CDT 10/20/2023 2:44 PM CDT Tissue specimen (specimen) SIGMOID COLON PART / Unknown 10/20/2023 4:32 PM CDT 10/20/2023 6:13 PM CDT Tammy Montoya MD LAB - KAYKAY [facility] Lab [address] [facility] Lab (1st floor, no room number) [place] [address] * ANE AIRWAY ETT PERFORMABLE (10/20/2023 1:46 PM CDT) Narrative Layla Abdullahi APRN CRNA - 10/20/2023 1:46 PM CDT Layla Abdullahi APRN CRNA ? 10/20/2023 ??1:52 PM Airway ? Patient location during procedure: OR ? Procedure Start/Stop Times: 10/20/2023 1:46 PM Staff - ? Anesthesiologist: ??Layla Abdullahi APRN CRNA ? Performed By: HEMATOLOGY NURSE Consent for Airway ? Urgency: elective Indications [...] Time: 10/20/2023 1:46 PM Brandon Gold MD [place] ANESTHESIA * COLONOSCOPY (10/20/2023 1:02 PM CDT) COLONOSCOPY [facility] Patient Name: Theodore Wu ? Procedure [...] continuously. The ?[employer] Adult Colonoscope, Model # CF-FZ580B, ?[facility] # [id number] was introduced through the ?anus and advanced [...] Procedure Code(s): ? --- Professional --- ? 00439, Colonoscopy, flexible; with removal of tumor(s), polyp(s), or ? other lesion(s) by snare technique CPT copyright 2021 [employer]. All rights reserved. The codes documented in this report are preliminary and upon logistics technician review may be revised to meet current compliance requirements. TAMMY MONTOYA MD 10/22/2023 5:35:05 PM I was physically present for the entire viewing portion of the exam. TAMMY MONTOYA MD Number of Addenda: 0 Note Initiated On: 10/20/2023 1:02 PM MRN: ?[id number] Procedure Date: ? 10/20/2023 1:02:04 PM Scope [...] Advance Directives For more information, please contact: [phone] * Full Code (Latest Code Status on [...] patie nt/ legal decision maker Care Teams Crew Dispatcher Relationship Specialty Start Date End Date Juan Pablo Buckley MD PCP - General Family Medicine 10/20/23
--- OUTSIDE RECORDS SUMMARY | 2023-12-31 15:11 | XMS_ITS | Referral Summary ---
Author Organization [facility] Address [address] [place] [address] Care Team Providers Care Polysom Tech Name Role Phone Juan Pablo Buckley MD Primary Care Provider [phone] Encounters Date Type Department Care Team Description 11/19/2023 Orders Only [facility] [address] [place] [address] Galen Moffett PA-C Fatigue (Primary Dx) 10/20/2023 10:11 AM CDT - 10/27/2023 3:38 PM CDT Hospital Encounter [place] [address] [facility] [address] [place] [address] Tammy Montoya MD S/P colectomy (Primary Dx) Discharge Disposition: Home-Health Care S[facility] 10/20/2023 1:30 PM CDT Anesthesia Event [facility] [address] [place] [address] Brandon Gold MD 10/20/2023 Travel 10/20/2023 12:50 PM CDT - 10/20/2023 6:30 PM CDT Surgery [facility] [address] [place] [address] Tammy Montoya MD Intraoperative colonoscopy 10/12/2023 Travel [...] MD LAB - BLOOD ORDER CHANEL LABORATORY [facility] Lab [address] Lab (1st floor, no room number) [place] [address], [facility] * Basic metabolic panel [...] MD LAB - BLOOD ORDERABL ES LABORATORY [facility] Lab [address] Lab (1st floor, no room number) [place] [address], [facility] * (ABNORMAL) CBC with platelets [...] LAB - BLOOD ORDERABL ES RH LABORATORY [facility] [address] Lab (1st floor, no room number) [place] [address], [facility] * XR Abdomen Port 1 View (10/23/2023 4:14 PM CDT) Anatomical Region Laterality Modality Abdomen/Pelvis Digital Radiogra phy 10/23/2023 4:14 PM CDT Impressions 10/23/2023 7:05 PM CDT IMPRESSION: Enteric tube in the body the stomach. Overall bowel loops not well assessed on this study for NG tube placement. Narrative 10/23/2023 7:05 PM CDT EXAM: XR ABDOMEN PORT 1 VIEW LOCATION: [facility] DATE: 10/23/2023 INDICATION: NG tube placement COMPARISON: None. Procedure Note Venkat Martinez MD - 10/23/2023 EXAM: XR ABDOMEN PORT 1 VIEW LOCATION: [facility] DATE: 10/23/2023 INDICATION: NG tube placement COMPARISON: [...] CDT EXAM: XR ABDOMEN 2 VIEWS LOCATION: [facility] DATE: 10/23/2023 INDICATION: Evaluate for ileus. COMPARISON: CT abdomen and pelvis 08/18/2023. Procedure Note Jillian Nicole MD - 10/23/2023 EXAM: XR ABDOMEN 2 VIEWS LOCATION: [facility] DATE: 10/23/2023 INDICATION: Evaluate for ileus. COMPARISON: [...] Montoya MD LAB - BEAKER POCT LABORATORY [facility] Lab [address] Lab (1st floor, no room number) [address] * Phosphorus (10/21/2023 6:22 AM CDT) Phosphorus 2.9 2.5 - 4.5 mg/dL 10/21/2023 6:58 AM CDT [facility] LABORATORY Blood STRUCTURE OF RIGHT UPPER LIMB / Unknown Venipuncture / Unknown 10/21/2023 6:22 AM CDT 10/21/2023 6:31 AM CDT Tammy Montoya MD LAB - BLOOD ORDER CHANEL [facility] [address] Lab (1st floor, no room number) [address] * Magnesium (10/21/2023 6:22 AM CDT) Magnesium 1.8 1.7 - 2.3 mg/dL 10/21/2023 6:58 AM CDT [facility] LABORATORY Blood STRUCTURE OF RIGHT UPPER LIMB / Unknown Venipuncture / Unknown 10/21/2023 6:22 AM CDT 10/21/2023 6:31 AM CDT Tammy Montoya MD LAB - BLOOD ORDER [facility] [address] [facility] Lab (1st floor, no room number) [place] [address] * Surgical Pathology Exam (10/20/2023 1:59 PM CDT) Case Report Surgical Pathology Report ? Case: [id number] ? Authorizing Provider: ??Tammy Montoya MD ?? Collected: ? 10/20/2023 01:59 PM ? Ordering Location: ? [facility] ?? Received: ?10/20/2023 02:44 PM ? [...] flowers-pink and contains a normal folding pattern. Safety Analyst sections are submitted as follows: B1-proximal margin, en face B2-distal margin, en face P2-E1-nmizrc diverticula and mucosa B7-additional portion of bowel mucosa (MEET Oliveira) 10/22/2023 2:54 PM CDT LABORATORY Microscopic Description Microscopic examination was performed. 10/22/2023 2:54 PM CDT LABORATORY Performing Labs The technical component of this testing was completed at [facility] 10/22/2023 2:54 PM CDT RH LABORATORY Case Images 10/22/2023 2:54 PM CDT LABORATORY Polyp ASCENDING COLON STRUCTURE / Unknown 10/20/2023 1:59 PM CDT 10/20/2023 2:44 PM CDT Tissue specimen (specimen) SIGMOID COLON PART / Unknown 10/20/2023 4:32 PM CDT 10/20/2023 6:13 PM CDT Tammy Montoya MD LAB - [facility] LABORATORY [facility] [address] Lab (1st floor, no room number) [place] [address] * ANE AIRWAY ETT PERFORMABLE (10/20/2023 1:46 PM CDT) Narrative Layla Abdullahi APRN CRNA - 10/20/2023 1:46 PM CDT Layla Abdullahi APRN ETCHER MACHINE ? 10/20/2023 ??1:52 PM Airway ? Patient location during procedure: OR ? Procedure Start/Stop Times: 10/20/2023 1:46 PM Staff - ? Anesthesiologist: ??Layla Abdullahi APRN ETCHER MACHINE ? Performed By: ETCHER MACHINE Consent for Airway ? Urgency: elective Indications [...] Time: 10/20/2023 1:46 PM Brandon Gold MD [place] ANESTHESIA * COLONOSCOPY (10/20/2023 1:02 PM CDT) [facility] COLONOSCOPY [facility] Patient Name: hTeodore MontgomeryLucas Wu ? Procedure Date: 10/20/2023 1:02 [...] and ?oxygen saturations were monitored continuously. The ?[employer] Adult Colonoscope, Model # CF-JB598W, ?[employer] # [id number] was introduced through the ?anus and advanced [...] Procedure Code(s): ? --- Professional --- ? 51932, Colonoscopy, flexible; with removal of tumor(s), polyp(s), or ? other lesion(s) by snare technique CPT copyright 2021 [employer]. All rights reserved. The codes documented in this report are preliminary and upon electrician office review may be revised to meet current compliance requirements. TAMMY MONTOYA MD 10/22/2023 5:35:05 PM I was physically present for the entire viewing portion of the exam. TAMMY MONTOYA MD Number of Addenda: 0 Note Initiated On: 10/20/2023 1:02 PM MRN: ?[id number] Procedure Date: ? 10/20/2023 1:02:04 PM Scope [...] Advance Directives For more information, please contact: [phone] * Full Code (Latest Code Status on [...] patie nt/ legal decision maker Care Teams Polysom Tech Relationship Specialty Start Date End Date Juan Pablo Buckley MD PCP - General Family Medicine 10/20/23
--- OUTSIDE RECORDS SUMMARY | 2023-12-31 15:11 | XMS_ITS | Continuity of Care Document ---
Author Organization [facility] Address [address] [place] [address] Phone Care Team Providers Care Commuter Pilot Name Role Phone Linwood DAVID, Amisathya Unavailable [...] C, [address], [place], [id number], [place] tel:[phone] [facility] No Information 3 Mehbod Amir. [facility] [place], [address] [place] [address] [address], [place], [place], [id number] , [place]. tel:[phone] Office/Outpat ient Visit,Est, Mod [facility] C, [address], [place], [id number], [place] tel:[phone] [facility] Spinal stenosis, lumbar region with neurogenic claudication 3 Mehbod Amir. [facility] [place], [address] [place] [address] [address], [facility] [place], [id number] , [place]. tel:[phone] Referring Provider: Juan Pablo Amaya, [facility] [address], [place], [address]. tel:[phone] Office/Outpat ient Visit,[facility], [facility], [address], [place], [id number], [place] tel:[phone] [facility] Low back painSpinal stenosis, lumbar region with neurogenic claudication 1 Kenzie Leary. [facility], [address], [address], [place], [id number] , [place]. tel:[phone] Referring Provider: Juan Pablo Amaya, [facility] [address], [place], [address]. tel:[phone] Family History Family Member Type Diagnosis Age At Onset No Information Payers Payer name Insurance type Covered constitution party ID Authoriza tion(s) [employer] Medicare Gold Choice Ramesh CONTRERAS [id number] Social History Type Description Quantity Date [...]
--- OUTSIDE RECORDS SUMMARY | 2023-12-31 15:12 | XMS_ITS | Encounter Summary ---
Author Organization [facility] [place] Address [address] [place] [address] Care Team Providers Care Recreation Facility Manager Name Role Phone No Ref-Primary, Physician [...] on filedocumented in this encounter Care Teams Recreation Facility Manager Relationship Specialty Start Date End Date No Ref-Primary, Physician PCP - General 03/25/23 10/19/23 documented as of this encounter
--- OUTSIDE RECORDS SUMMARY | 2023-12-31 15:12 | XMS_ITS | Encounter Summary ---
Author Organization [place] Address [address] [place] [address]. [place] [address] Care Team Providers Care Sack Sewer Name Role Phone No Ref-Primary, Physician Primary Care Provider Juan Pablo Buckley MD Primary Care Provider [phone] Encounter Details Date Type Department Care Team (Late st Contact Info) Description 08/17/2023 Orders Only [facility] [address] [place] [address] Carlyn Barba MD [facility] [address] [id number] Social History Tobacco Use Types Packs/Day Years [...] Out C-difficile 08/18/2023 08/18/2023 024 5:02 AM TRAFFIC ENUMERATOR C-difficile 08/18/2023 08/18/2023 09/17/2023 11:3 9 PM TRAFFIC ENUMERATOR documented as of this encounter Care Teams Sack Sewer Relationship Specialty Start Date End Date No Ref-Primary, Physician PCP - General 03/25/23 10/19/23 Juan Pablo Buckley MD PCP - General Family Medicine 10/20/23 documented as of this encounter
--- OUTSIDE RECORDS SUMMARY | 2023-12-31 15:12 | XMS_ITS | Encounter Summary ---
Author Organization [place] Address [facility] [place] [address] Care Team Providers Care Mason Tender Name Role Phone No Ref-Primary, Physician Primary Care Provider Juan Pablo Buckley MD Primary Care Provider [phone] Encounter Details Date Type Department Care Team (Late st Contact Info) Description 08/12/2023 Hospital Encounter [facility] [address] [address] Carlyn Barba MD [facility]O [facility] RECTAL SURGERY [address] [id number] Social History Tobacco Use Types Packs/Day Years [...] C-difficile 07/16/2023 07/16/2023 08/15/2023 11:3 9 PM FUR DRY CLEANER HAND Rule Out C-difficile 08/18/2023 08/18/2023 024 5:02 AM FUR DRY CLEANER HAND C-difficile 08/18/2023 08/18/2023 09/17/2023 11:3 9 PM FUR DRY CLEANER HAND documented as of this encounter Care Teams Mason Tender Relationship Specialty Start Date End Date No Ref-Primary, Physician PCP - General 03/25/23 10/19/23 Juan Pablo Buckley MD PCP - General Family Medicine 10/20/23 documented as of this encounter
--- OUTSIDE RECORDS SUMMARY | 2023-12-31 15:12 | XMS_ITS ---
Author Organization [facility] Address [address] [place] [address] Care Team Providers Care Taxi Dancer Name Role Phone Juan Pablo Buckley MD Primary Care Provider Transitional Care Management Status:Closed (Closed) Start date:10/28/2023 Enrollment date:10/29/2023 End date:11/11/2023 Close reason:Goals met Continued Care and Services Coordination
--- OUTSIDE RECORDS SUMMARY | 2023-12-31 15:12 | XMS_ITS | Continuity of Care Document ---
Author Organization [facility] Address [address] [place] [address] Phone Care Team Providers Care Office Technician Name Role Phone Linwood DAVID, Amisathya Unavailable [...] C, [address], [place], [id number], [place] tel:[phone] [facility] No Information 3 Mehbod Amir. [facility] [place], [address] [place] [address] [address], [place], [place], [id number] , [place]. tel:[phone] Office/Outpat ient Visit,Est, Mod [facility], [address], [place], [id number], [place] tel:[phone] [facility] Spinal stenosis, lumbar region with neurogenic claudication 3 Mehbod Amir. [facility] [place], [address] [place] [address] [address], [place], [place], [id number] , [place]. tel:[phone] Referring Provider: Juan Pablo Amaya, [facility] [address], [place], [address]. tel:[phone] Office/Outpat ient Visit,[facility], [facility], [address], [place], [id number], [place] tel:[phone] [facility] Low back painSpinal stenosis, lumbar region with neurogenic claudication 1 Kenzie Leary. [facility], [address], [address], [place], [id number] , [place]. tel:[phone] Referring Provider: Juan Pablo Amaya, [facility] [address], [place], [address]. tel:[phone] Family History Family Member Type Diagnosis Age At Onset No Information Payers Payer name Insurance type Covered democrat ID Authoriza tion(s) [employer] Medicare Gold Choice Ramesh CONTRERAS [id number] Social History Type Description Quantity Date [...]
--- OUTSIDE RECORDS SUMMARY | 2023-12-31 15:12 | XMS_ITS | Encounter Summary ---
Author Organization [facility] Address [address] [place] [address] Care Team Providers Care Maintenance Analyst Name Role Phone Juan Pablo Buckley MD Primary Care Provider [phone] Reason for Visit * Auth/Cert (Routine) Specialty [...] possible stoma Periop Services [address] [place] [address] Referral ID Status Reason Start Date Expiration Date Visits Re quested Visits Authorized [id number] 1 1 Encounter Details Date Type Department Care Team (Late st Contact Info) Description 10/20/2023 12:50 PM CDT - 10/20/2023 6:30 PM CDT Surgery [facility] PeriOp Services [address] [place] [phone] Tammy Montoya MD COLO & RECTAL SURGERY [address] [id number] Intraoperative colonoscopy Surgery Details Date/Time Status Location [...] Role Service Panel Kalyn Villagomez PA-C Assisting Solar Fabrication Technician Authori zation 1 Tammy Montoya MD Primary General 1 Milli Jacobs MD Fellow - Assisting [place]-Rectal 1 Special Needs 4hr req documented in [...] Villagomez PA-C - 10/27/2023 1:28 PM CDT [facility] Discharge Summary Christi Wu Age: [age] year old Date of : 1945 Date of Admission: 10/20/2023 Date of Discharge:: 10/27/2023 Admitting Physician: Tammy Montoya MD Discharge Physician: Tammy Montoya MD PCP: Juan Pablo Buckley Disposition: Patient discharged from [facility] to home in stable condition. Primary Diagnosis: [...] No DVT No PE No CVA No ID No Enterocutaneous fistula No Peripheral nerve injury [...] Your home care referral was sent to [facility] If you haven't heard from them within the next 24-48 hours, Please call them at [phone] documented in this encounter Medications at Time [...] and faxed them the pt's discharge orders P:[phone] F: [phone]. Sw will continue to be available as needed until discharge. TATIANNA Alvarenga, [facility] Inpatient Care Coordination [facility] [phone] * Lexie Bang PT - 10/27/2023 1:52 PM CDT PT: Noted in chart pt with discharge orders. Stopped in pt's room to check in if he had any additional mobility concerns to address prior to discharge and pt denied concern. Has been mobilizing well with previous PT sessions and with [facility] staff. Physical Therapy Discharge Summary Reason for [...] questions/paging, please contact the CRS office at [phone]. Galen Moffett PA-C Colon & Rectal Surgery [...] questions/paging, please contact the CRS office at [phone]. Galen Moffett PA-C [facility] Associated attestation - Luara Rojo MD - 10/26/2023 1:08 PM CDT Physician Attestation I saw and evaluated Christi Wu as part of a shared COMPUTER INFORMATION SYSTEMS INSTRUCTOR/PA visit. I personally reviewed the vital signs, [...] questions/paging, please contact the CRS office at [phone]. Galen Moffett PA-C [facility] CRS Staff. Seen and examined independently. Agree with above. I performed a history and physical examination of the patient and discussed their management with the physician marketing assistant retail division. I reviewed the physician assistants note and agree with the documented findings and plan of care. MD JEANE Villegas Colorectal Surgeon [facility] [address] , [address] [place] [address] T: [phone] F: [phone] Pager: [phone] [email or web address] * Adán Mcneal MD - 10/24/2023 [...] Colorectal Surgeon [facility] [address] , [address] [place] [address] T: [phone] F: [phone] Pager: [phone] [email or web address] Interval History: Xray demonstrating some ileus yesterday. [...] Colorectal Surgeon [facility] [address], [address] [place] [address] T: [phone] F: [phone] Pager: [phone] [email or web address] Interval History: Hypertensive overnight. Reports bloating and [...] PLT 315 10/20/2023 PLT 136 (L) 08/21/2023 [facility] Recent Labs Lab Test 10/22/23 0613 10/21/23 [...] needed, minimize narcotics - Encourage ambulation - [facility] for ppx Disposition: Expected discharge in 1-2 days. Barriers to discharge: Tolerating low fiber diet, pain controlled with oral meds, return of bowel function. Clinically Significant Risk Factors # Financial/Environmental Concerns: For questions/paging, please contact the CRS office at [phone]. Kalyn Villagomez PA-C Colon & Rectal Surgery [...] Evaluation Time PT Eval, Moderate Complexity Minutes (94496) 10 Physical Therapy Goals PT Frequency Daily PT Predicted Duration/Target Date for Goal Attainment 10/27/23 PT Goals Bed Mobility;Transfers;Gait PT: Bed Mobility Supine to/from sit;Rolling;Within precautions;Independent PT: Transfers Modified independent;Bed to/from chair;Sit to/from stand;Assistive device;Within precautions PT: Gait Supervision/stand-by assist;Rolling walker;150 feet Interventions Interventions Quick Adds Therapeutic Activity;Gait Training Therapeutic Activity Therapeutic Activities: dynamic activities to improve functional performance Minutes (14799) 8 Symptoms Noted During/After Treatment Increased pain;Fatigue [...] of session. Gait Training Gait Training Minutes (31883) 8 Symptoms Noted During/After Treatment (Gait Training) [...] questions/paging, please contact the CRS office at [phone]. Kalyn Villagomez PA-C [facility] Associated attestation - Laura Rojo MD - 10/21/2023 6:45 PM CDT Physician Attestation I saw and evaluated Christi Wu as part of a shared COMPUTER INFORMATION SYSTEMS INSTRUCTOR/PA visit. I personally reviewed the vital signs, [...] in Home spouse Current Living Arrangements house ([facility]) Home Accessibility no concerns Self-Care Usual [...] weakness Bed Mobility Bed Mobility supine-sit;sit-supine Supine-Sit Dundy (Bed Mobility) minimum assist (75% patient effort) Sit-Supine Dundy (Bed Mobility) minimum assist (75% patient effort) Transfers Transfers sit-stand transfer;toilet transfer Sit-Stand Transfer Sit-Stand Dundy (Transfers) supervision Toilet Transfer Dundy Level (Toilet Transfer) supervision Balance Balance Comments Benefits from FWW, history of falls. Activities of Daily Living BADL Assessment/Intervention lower body dressing;grooming Lower Body Dressing Assessment/Training Dundy Level (Lower Body Dressing) contact guard assist Grooming Assessment/Training Dundy Level (Grooming) supervision Clinical Impression Criteria for [...] Evaluation Time OT Eval, Low Complexity Minutes (10844) 10 OT Goals Therapy Frequency (OT) Daily [...] Management Self-Care/Home Mgmt/ADL, Compensatory, Meal Prep Minutes (89358) 8 Symptoms Noted During/After Treatment (Meal Preparation/Planning [...] at sink. Therapeutic Activities Therapeutic Activity Minutes (58456) 29 Symptoms noted during/after treatment increased pain;fatigue [...] Communication Assessment Patient's communication style: spoken language (Burmese or Bilingual) Hearing Difficulty or Deaf: no [...] will transport at discharge. Referral sent to [facility] hub for home PT. Addendum Pt accepted by [facility] for home PT. AVS updated. Mili Proctor/TATIANNA Coley, [facility] Inpatient Care Coordination Emergency Room Hydro Plant Operator/Float [phone] Mili Proctor LGSW documented in this encounter Miscellaneous Notes * Plan of Care - Luisa Montes OT - 10/27/2023 3:38 PM CDT Occupational Therapy Discharge Summary Reason for therapy discharge: Discharged to home with home therapy. Progress towards therapy goal(s). See goals on Care Plan in [facility] electronic health record for goal details. [...] and complete assessments, please see documentation flowsheets. [id number] Pertinent assessments: Pt A&Ox4. SBA with walker [...] shift note. Outcome: Progressing Flowsheets (Taken 10/27/2023 6838) Outcome Evaluation: Pt is passing gas & [...] shift note. Outcome: Progressing Flowsheets (Taken 10/26/2023 5872) Outcome Evaluation: had large bm, passing lots [...] shift note. Outcome: Progressing Flowsheets (Taken 10/26/2023 3296) Outcome Evaluation: ambulating in [place], pain controlled [...] Documentation Taken 10/25/2023 0916 by Lili Kemp, heater mechanic Interventions: rest medication (see MAR) Goal: Nausea [...] note. Outcome: Not Progressing Flowsheets (Taken 10/22/2023 9325) Outcome Evaluation: no gas yet, intermittent abdominal [...] and complete assessments, please see documentation flowsheets. [id number] Pertinent assessments: POD#2. Pt A&Ox4. On 2L NC. Afebrile.Elevated BP other VSS. C/O pain, nausea, & hiccups given prn oxy, one time order of baclofen, & zofran odt. PIV infusing LR at 75mls/hr. MARIZA drain in place with bloody output. B Major Shift Events: After taking oxy & tylenol Pt had a small emesis episode witnessed by studio operations engineer in charge. In addition Pt was found to have [...] note. Outcome: Not Progressing Flowsheets (Taken 10/22/2023 3471) Outcome Evaluation: Pt is voiding, on 2L [...] Documentation Taken 10/21/2023 0910 by Milli Morales RNheater mechanic Interventions: medication (see MAR) Taken 10/21/2023824 by Milli Morales RNheater mechanic Interventions: medication (see MAR) Goal: Readiness for [...] Documentation Taken 10/21/2023 09 by Milli Morales RNheater mechanic Interventions: medication (see MAR) Taken 10/21/2023824 by Milli Morales RNheater mechanic Interventions: medication (see MAR) Goal: Nausea and [...] and complete assessments, please see documentation flowsheets. [id number] Pertinent assessments: POD#1. Pt A&Ox4. On 3L [...] Zaldivar RN Outcome: Not Progressing 10/21/2023702 by aStish Zaldivar RN Outcome: Progressing Goal: Effective Bowel [...] Goal: Effective Urinary Elimination 10/21/2023703 by Satish Zalidvar RN Outcome: Not Progressing 10/21/2023702 by Satish [...] Jacobs MD - 10/20/2023 6:06 PM CDT [facility] Brief Operative Note Pre-operative diagnosis: [...] pneumatic leak testing Surgeon: Maddi Montoya MD Solar Fabrication Technician: Kalyn Villagomez PA-C A skilled assistant case manager was necessary due to the technical complexity of the procedure and for the patient's safety. The marketing assistant retail division helped me with positioning, retraction, visualization of the operative field, meticulous wound closure and moreover helped to complete the procedures in a technicallysafe and efficient manner. Second Solar Fabrication Technician: Milli Jacbos MD (colorectal surgery fellow) Anesthesia: General EBL: [...] gown and gloves. We placed a 19 Faroese Lit channel drain through the left most [...] * Pharmacy-Admission Medication History - [facility] - 10/15/2023 2:21 PM CDT Pre-Admission Medication History Medication history and patient interview completed by pre-admitting RN or pre- op/PLASTICS TOOLING ENGINEER. Reviewed by pharmacist, including [facility] dispense records, [facility] Care Everywhere, and chart review. [facility], Pharm.D., [facility] Last Reviewed by Lesa Reyes, MEDHAT on 10/12/2023 at 4:31 PM CONFERENCE TRANSLATOR Med List Medication Sig Last Dose acetaminophen [...] MD LAB - BLOOD ORDER CHANEL LABORATORY [facility] Acute Care Lab [address] Lab (1st floor, no room number) [place] [address], [facility] * (ABNORMAL) CBC with platelets (10/25/2023 7:49 [...] MD LAB - BLOOD ORDERABL ES LABORATORY [facility] Acute Care Lab [address] [facility] Lab (1st floor, no room number) [place] [address], [facility] * Basic [...] Mcneal MD LAB - BLOOD ORDERABL ES [facility] Acute Care Lab [address] Lab (1st floor, no room number) [place] [address] * XR [...] EXAM: XR ABDOMEN PORT 1 VIEW LOCATION: [facility] DATE: 10/23/2023 INDICATION: NG tube placement COMPARISON: None. Procedure Note Venkat Martinez MD - 10/23/2023 EXAM: XR ABDOMEN PORT 1 VIEW LOCATION: [facility] DATE: 10/23/2023 INDICATION: NG tube placement COMPARISON: [...] MD LAB - BLOOD ORDERABL ES LABORATORY [facility] Acute [facility] [address] [facility] (1st floor, no room number) [place] [address] * XR Abdomen 2 Views (10/23/2023 9:42 [...] CDT EXAM: XR ABDOMEN 2 VIEWS LOCATION: [facility] DATE: 10/23/2023 INDICATION: Evaluate for ileus. COMPARISON: CT abdomen and pelvis 08/18/2023. Procedure Note Jillian Nicole MD - 10/23/2023 EXAM: XR ABDOMEN 2 VIEWS LOCATION: [facility] DATE: 10/23/2023 INDICATION: Evaluate for ileus. COMPARISON: [...] Mcneal MD LAB - BLOOD ORDERABL ES [facility] Care Lab [address] Lab (1st floor, no room number) [address] [place] [address] * Platelet count (10/23/2023 8:45 AM CDT) Platelet Count 320 150 - 450 10e3/uL 10/23/2023 9:00 AM CDT LABORATORY Blood STRUCTURE OF LEFT UPPER LIMB / Unknown Venipuncture / Unknown 10/23/2023 8:45 AM CDT 10/23/2023 8:57 AM CDT Tammy Montoya MD LAB - BLOOD ORDER CHANEL [facility] Care Lab [address] Lab (1st floor, no room number) [place] [phone] [place] [address] * (ABNORMAL) Glucose by meter (10/22/2023 6:13 AM CDT) GLUCOSE BY METER POCT 149(H) 70 - 99 mg/dL 10/22/2023 6:20 AM CDT RH LABORATORY POC Blood, Capillary BLOOD SPECIMEN / Unknown 10/22/2023 6:13 AM CDT 10/22/2023 6:20 AM CDT Tammy ALMARAZ - BEAKER POCT LABORATORY [facility] Care Lab [address] Lab (1st floor, no room number) [place] [phone] [place] [address] * (ABNORMAL) Glucose by meter (10/21/2023 6:35 AM CDT) GLUCOSE BY METER POCT 133(H) 70 - 99 mg/dL 10/21/2023 6:42 AM CDT LABORATORY POC Blood, Capillary BLOOD SPECIMEN / Unknown 10/21/2023 6:35 AM CDT 10/21/2023 6:42 AM CDT Tammy ALMARAZ - BEAKER POCT LABORATORY [facility] Lab [address] Lab (1st floor, no room number) [place] [phone], [facility] * Phosphorus (10/21/2023 6:22 AM CDT) Phosphorus 2.9 2.5 - 4.5 mg/dL 10/21/2023 6:58 AM CDT LABORATORY Blood STRUCTURE OF RIGHT UPPER LIMB / Unknown Venipuncture / Unknown 10/21/2023 6:22 AM CDT 10/21/2023 6:31 AM CDT Tammy Montoya MD LAB - BLOOD ORDER CHANEL [facility] Lab [address] Lab (1st floor, no room number) [place] [address], [facility] * Magnesium (10/21/2023 6:22 AM CDT) Magnesium 1.8 1.7 - 2.3 mg/dL 10/21/2023 6:58 AM CDT RH LABORATORY Blood STRUCTURE OF RIGHT UPPER LIMB / Unknown Venipuncture / Unknown 10/21/2023 6:22 AM CDT 10/21/2023 6:31 AM CDT Tammy Montoya MD LAB - BLOOD ORDER CHANEL [facility] LABORATORY [facility] Acute Care Lab [address] [facility] Lab (1st floor, no room number) [place] [address] * (ABNORMAL) CBC with platelets (10/21/2023 6:22 [...] MD LAB - BLOOD ORDER CHANEL LABORATORY [facility] Acute Care Lab [address] Lab (1st floor, no room number) [place] [address], [facility] * (ABNORMAL) Basic metabolic panel (10/21/2023 6:22 AM CDT) [facility] Sodium 137 135 - 145 mmol/L 10/21/2023 [...] - BLOOD ORDER CHANEL Performing Organization Address [facility] de Phone Number LABORATORY [facility] Acute Care Lab [address] Lab (1st floor, no room number) [address] * Platelet count (10/20/2023 8:56 PM CDT) Platelet Count 315 150 - 450 10e3/uL 10/20/2023 9:10 PM CDT LABORATORY Blood STRUCTURE OF LEFT UPPER LIMB / Unknown Venipuncture / Unknown 10/20/2023 8:56 PM CDT 10/20/2023 9:03 PM CDT Tammy Montoya MD LAB - BLOOD ORDER CHANEL Performing Organization Address [facility] de Phone Number [facility] Acute Care Lab [address] Lab (1st floor, no room number) [address] * Surgical Pathology Exam (10/20/2023 1:59 PM CDT) Case Report Surgical Pathology Report ? Case: [id number] ? Authorizing Provider: ??Tammy Montoya MD ?? Collected: ? 10/20/2023 01:59 PM ? Ordering Location: ? [facility] ?? Received: ?10/20/2023 02:44 PM ? Main [...] flowers-pink and contains a normal folding pattern. Computer Art Instructor sections are submitted as follows: B1-proximal margin, en face B2-distal margin, en face Q7-B5-mhqsdx diverticula and mucosa B7-additional portion of bowel mucosa (MEET Oliveira) 10/22/2023 2:54 PM CDT LABORATORY Microscopic Description Microscopic examination was performed. 10/22/2023 2:54 PM CDT LABORATORY Performing Labs The technical component of this testing was completed at [facility] Laboratory 10/22/2023 2:54 PM CDT LABORATORY Case Images 10/22/2023 2:54 PM CDT LABORATORY Polyp ASCENDING COLON STRUCTURE / Unknown 10/20/2023 1:59 PM CDT 10/20/2023 2:44 PM CDT Tissue specimen (specimen) SIGMOID COLON PART / Unknown 10/20/2023 4:32 PM CDT 10/20/2023 6:13 PM CDT Tammy Montoya MD LAB - KAYKAY LOPEZ LABORATORY [facility] Acute Care Lab [address] [facility] Lab (1st floor, no room number) [place] [address] * COLONOSCOPY (10/20/2023 1:02 PM CDT) COLONOSCOPY [facility] Patient Name: Christi Wu ? Procedure [...] continuously. The ?Olympus Adult Colonoscope, Model # CF-KT513V, ?Censitrac # [id number] was introduced through the ?anus and advanced [...] Procedure Code(s): ? --- Professional --- ? 03920, Colonoscopy, flexible; with removal of tumor(s), polyp(s), or ? other lesion(s) by snare technique CPT copyright 2021 [employer]. All rights reserved. The codes documented in this report are preliminary and upon customer quality engineer review may be revised to meet current compliance requirements. TAMMY MONTOYA MD 10/22/2023 5:35:05 PM I was physically present for the entire viewing portion of the exam. TAMMY MONTOYA MD Number of Addenda: 0 Note Initiated On: 10/20/2023 1:02 PM MRN: ?[id number] Procedure Date: ? 10/20/2023 1:02:04 PM Scope [...] MD LAB - BEAKER POCT LABORATORY POC [facility] Acute Care Lab [address] Lab (1st floor, no room number) [place] [address], [facility] * EKG CARDIAC - HIM SCAN (10/06/2023 [...] analgesic side effects. Hold while on IV METAL SANDER or with regular IV opioid dosing. $Given [...] analgesic side effects. Hold while on IV METAL SANDER or with regular IV opioid dosing. $Given [...] Provider: Lili Kemp RN)1751 ($Given - Provider: eWs Bui, MEDHAT) 0029 ($Given - Provider: Luanne [...] Wes Bui RN) 212 ($Given - Provider: eWs Bui, MEDHAT) sodium chloride (PF) 0.9% PF [...] analgesic side effects. Hold while on IV METAL SANDER or with regular IV opioid dosing. 0435 [...] analgesic side effects. Hold while on IV METAL SANDER or with regular IV opioid dosing. 0435 [...] analgesic side effects. Hold while on IV METAL SANDER or with regular IV opioid dosing. Or oxyCODONE (ROXICODONE) tablet 10 mgJump to med 10 mg, Oral, EVERY 4 HOURS PRN, severe pain, Starting on Wed10/20/23 at 2038, Hold oral PRN dose for analgesic side effects. Notify provider to assess for uncontrolled pain or analgesic side effects. Hold while on IV METAL SANDER or with regular IV opioid dosing. documented in this encounter Care Teams Maintenance Analyst Relationship Specialty Start Date End Date Juan Pablo Buckley MD PCP - General Family Medicine 10/20/23 documented as of this encounter
--- OUTSIDE RECORDS SUMMARY | 2023-12-31 15:12 | XMS_ITS | Encounter Summary ---
Author Organization [place] Address [address] [place] [address] Care Team Providers Care Sole Splitter Name Role Phone No Ref-Primary, Physician Primary Care Provider Juan Pablo Buckley MD Primary Care Provider [phone] 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] Procedures MD LAP,SURG,COLECTOMY, PARTIAL, W/ANAST MD LAP,SURG,COLECTOMY,W/REMVL TERM ILEUM MD LAP,SURG,COLECTOMY,W/END COLOST & CLOSUR MD LAP,SURG,COLECTOMY,W/ANAST MD LAP, SURG, COLECTOMY, W/ANAST, W/COLOSTOMY MD LAP,SURG,COLECTOMY,TOTAL,W/O PROCTECTOMY MD LAP,SURG,COLECTOMY,TOTAL,W/PROCT ECTOMY MD LAP,SURG,COLECT,TOT,W/PROCTECT,W /ILEOST MD CYSTOURETHROSCOPY W URETERAL CATH MD CYSTOURETHROSCOPY W URETERAL CATH MD CYSTOSCOPY,INSERT URETERAL STENT cystoscopy with bilateral ureteral catheter insertion Periop Services [address] [place] [address] Referral ID Status Reason Start Date Expiration Date Visits Re quested Visits Authorized [id number] 1 1 Encounter Details Date Type Department Care Team (Latest Contact Info) Description 08/20/2023 Hospital Encounter [facility] [address] [place] [address] Mauricio Padilla MD [address] [place] [address] Colonic diverticular abscess Social History Tobacco Use [...] C-difficile 08/18/2023 08/18/2023 09/17/2023 11:3 9 PM SALES SUPERVISOR documented as of this encounter Care Teams Sole Splitter Relationship Specialty Start Date End Date No Ref-Primary, Physician PCP - General 03/25/23 10/19/23 Juan Pablo Buckley MD PCP - General Family Medicine 10/20/23 documented as of this encounter
--- OUTSIDE RECORDS SUMMARY | 2023-12-31 15:12 | XMS_ITS | Clinical Summary ---
Author Organization [facility] Address [place], [place] [address] Care Team Providers Care Armament Repairer Name Role Phone Marco A Buckley MD Primary Care Provider [phone] Allergies No known active allergies Medications Medication [...] Comments Blood Pressure 147/74 07/09/2020 3:17 PM YARDER ENGINEER Pulse 77 07/09/2020 3:17 PM YARDER ENGINEER Temperature 36.3 ??C (97.4 ??F) 10/21/2015 9:36 AM CD T Respiratory Rate - - Oxygen Saturation 100% 07/09/2020 3:17 PM YARDER ENGINEER Inhaled Oxygen Concentration - - Weight 85.4 kg (188 lb 3.2 oz) 07/09/2020 3:17 P M YARDER ENGINEER Height 172.1 cm (5' 7.75) 10/21/2015 9:36 [...] Influenza for age 65+ 03/26/2024 Care Teams Armament Repairer Relationship Specialty Start Date End Date Marco A Buckley MD PCP - General Family Practice 03/18/23
--- OUTSIDE RECORDS SUMMARY | 2023-12-31 15:12 | XMS_ITS | Encounter Summary ---
Author Organization [place] Address [address] [place] [address]. [place] [address] Care Team Providers Care Horse Show Judge Name Role Phone No Ref-Primary, Physician Primary Care Provider Juan Pablo Buckley MD Primary Care Provider [phone] Encounter Details Date Type Department Care Team (Late st Contact Info) Description 08/18/2023 Orders Only [facility] [address] [place] [address] Carlyn Barba MD COLO & RECTAL SURGERY [address] [address] C. difficile diarrhea (Primary Dx) Social History [...] Out C-difficile 08/18/2023 08/18/2023 024 5:02 AM BELTING AND WEBBING INSPECTOR C-difficile 08/18/2023 08/18/2023 09/17/2023 11:3 9 PM BELTING AND WEBBING INSPECTOR documented as of this encounter Care Teams Horse Show Judge Relationship Specialty Start Date End Date No Ref-Primary, Physician PCP - General 03/25/23 10/19/23 Juan Pablo Buckley MD PCP - General Family Medicine 10/20/23 documented as of this encounter
--- OUTSIDE RECORDS SUMMARY | 2023-12-31 15:12 | XMS_ITS | Continuity of Care Document ---
Author Organization LUNA Ly Address [address] [facility] [address] [place] [address] Phone Care Team Providers Care Ticket Counter Name Role Phone Emmanuel Marya ROMAN Unavailable [...] by oral route 2 times every week [address] UNITS - Active Procedures Procedure Date Est [...] Providers Copied on Encounter MONSERRAT Ly, [address], [place], [place], [address], [place] tel:[phone] [facility] No Information 3 [facility]. [address], [place], [address], [place]. tel:[phone] Referring Provider: Kaleb Lee, [address], [place], [address] . tel:[phone] Est Pt Eval [address] [facility], [address], [place], [place], [address], [place] tel:[phone] [facility] back pain (chief complaint) Body mass index (BMI) 26.0-26.9, adultRadiculopathy, lumbar region 3 Emmanuel Marya. [address], [place], [address], [place]. tel:[phone] Referring Provider: Kaleb Lee, [address], [place], [address] . tel:[phone] [facility], [address], [place], [place], [address], [place] tel:[phone] [facility] [place] No Information 3 Jesus Zapaat. [address], [address], [place], [place], [id number], [place]. tel:[phone] Referring Provider: Benny Lee, [address], [place], [address] . tel:[phone] [facility], [address], [place], [address], [place] tel:[phone] [facility] back pain (chief complaint) Radiculopathy, lumbar regionRadiculopathy , lumbar region 3 [facility]. [address], [place], [address], [place]. tel:[phone] Referring Provider: Benny Lee, [address], [place], [address] . tel:[phone] [facility], [facility], [address], [place], [place], [address], [place] tel:[phone] [facility] No Information 3 Jesus Zapata. [address], [address], [place], [address], [place]. tel:[phone] Referring Provider: Benny Lee, [address], [place], [address] . tel:[phone] New Pt Eval [address] [facility], [facility], [address], [place], [place], [address], [place] tel:[phone] [facility] back pain (chief complaint) Radiculopathy, lumbar regionVertebrogenic low back painBody mass index (BMI) 27.0-27.9, adult Fe- 3 Foster Florin. [address], [place], [address], [place]. tel:[phone] Referring Provider: Kaleb Lee, [address], [place], [address] . tel:[phone] Family History Family Member Type Diagnosis Age At Onset No Information Payers Payer name Insurance type Covered libertarian ID Anne brian(s) Jacki Medicare PPO 16 [id number] Social History Type Description Quantity Date Captured [...]
[2023-12-31 15:51] LABS: Basophils Percent Auto 0.1 % (0.0-3.0); Eosinophils Percent Auto 0.2 % (0.0-7.0); Hematocrit 38.6 % (37.0-53.0); Hemoglobin* 12.7 gm/dL (13.5-17.5); Immature Granulocytes Pct Auto 0.3 %; Mean Corpuscular HGB Conc 33 gm/dL (32-36); Mean Corpuscular Hemoglobin 32 pg (26-34); Mean Corpuscular Volume 96 fL (80-100); Monocytes Percent Auto 6.6 % (0.0-11.0); Neutrophils Percent Auto 88.8 % (42.0-72.0); Platelet Count* 265 K/uL (140-440); RDW Coefficient of Variation % 14.6 % (11.5-15.5); Red Blood Count 4.03 m/uL (4.30-5.90); White Blood Count* 18.86 K/uL (4.50-11.00)
[2023-12-31 15:57] LABS: Troponin, Point-of-Care* 0.01 ng/ml (0.01-0.04)
[2023-12-31 16:09] LABS: Chloride* 106 mmol/L (96-114); Potassium* 4.4 mmol/L (3.6-5.1); Sodium* 136 mmol/L (135-149)
[2023-12-31 16:12] LABS: Anion Gap 3 mEq/L (7-15); Blood Urea Nitrogen* 25 mg/dL (7-30); Carbon Dioxide* 27 mmol/L (20-32); Creatinine* 0.9 mg/dL (0.5-1.5); Est. Creatinine Clearance* 55.72; Estimated Glomerular Filt Rate 87 ml/min
[2023-12-31 16:13] LABS: Calcium* 8.7 mg/dL (8.4-10.6); Glucose* 100 mg/dL (60-115); Slide Review Reflex No
== END 2023-12-31 16:51 | disposition home or self-care (01) ==
PROVIDERS: Emergency Provider Emergency Medicine Emergency Medical Services; PCP Family Medicine
DX: R55 Syncope and collapse (principal)
CPT/HCPCS: 36415; 70450; 80048; 84484; 85025; 93005; 99213; 99284; J7030

== ENCOUNTER 2024-03-16 15:09 | Outpatient (CLI) | payer MEDICARE, SELFPAY ==
--- OUTSIDE RECORDS SUMMARY | 2024-03-16 15:13 | XMS_ITS | Continuity of Care Document ---
Author Organization [facility] Address [address] [place] [address] Phone Care Team Providers Care Rehab Director Name Role Phone Linwood DAVID, Amisathya Unavailable Unavailable Allergies, Adverse Reactions, Alerts Substance Reaction Status Criticality No Known Allergies Active No Inform ation Medications Medication Instructions Dosage Effective Dates (start - stop) Status Comments LISINOPRIL (unknown strength) Not Available - Active ASPIRIN (unknown strength) Not Available - Active SIMVASTATIN (unknown strength) Not Available - Active Procedures Procedure Date Office/Outpatient Visit,Est, Mod 2023 Office/Outpatient Visit,Est, Mod 2022 Office/Outpatient Visit,New, Mod 2020 Advance Directives Directive Yes / No Effective Date File Name No Information Encounters Encounter Description Practice Location Reason(s) For Visit Diagnoses Date Provider Providers Copied on Encounter [facility], [address], [facility] [place], [id number], [place] tel:[phone] [facility] 4 Mehbod Amir. [facility], [address], [place], [place], [id number] , [place]. tel:[phone] Office/Outpat ient Visit,Est, Mod [facility], [address], [place], [address], [place] tel:[phone] [facility] Spinal stenosis, lumbar region with neurogenic claudication 4 Mehbod Amir. [facility], [address] [place] [address] [address], [place], [place], [address] , . tel:[phone] Referring Provider: Juan Pablo Amaya, [address], [facility]. tel:[phone] Office/Outpat ient Visit,Est, Mod [facility], [address], [place], [place], [id number], [place] tel:[phone] [facility] Spinal stenosis, lumbar region with neurogenic claudication 3 Mehbod Amir. [facility], [address] [place] [address] [address], [place], [place], [address] , . tel:[phone] Referring Provider: Juan Pablo Amaya, [address], [facility]. tel:[phone] Office/Outpat ient Visit,New, Mod [facility], [address], [place], [place], [address], [place] tel:[phone] [facility] Low back painSpinal stenosis, lumbar region with neurogenic claudication 1 Kenzie Leary. [facility], [address] [place] [address], [address], [place], [place], [address] , . tel:[phone] Referring Provider: Juan Pablo Amaya, [address], [facility]. tel:[phone] Family History Family Member Type Diagnosis Age At Onset No Information Payers Payer name Insurance type Covered alliance party ID Anne brian(s) [facility] Medicare [facility] 2021 CI [id number] Social History Type Description Quantity Date Captured Comments Sex Male Smoking Status No Information Chief Complaint And Reason For Visit No Information Reason For Referral Reason For Referral No Information Plan Of Treatment Date Type Action Status Appointment Theodore Wu BOOKED Appointment Theodore Wu BOOKED Appointment Theodore Wu BOOKED History Of Present Illness Encounter Date Complaint History Of Prese nt Illness No Information Functional Status Date Functional Assessmen t No Information Instructions Date Instruction Additional Infor mation No Information Assessments Type Assessment Date No Information Patient Care Teams Name Effective Dates (start - stop) Status Members No Information
--- OUTSIDE RECORDS SUMMARY | 2024-03-16 15:13 | XMS_ITS | Encounter Summary ---
Author Organization [facility] Address [address] [place] [address] Care Team Providers Care Water Mechanic Name Role Phone No Ref-Primary, Physician Primary Care Provider Juan Pablo Buckley MD Primary Care Provider [phone] 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] Procedures PA LAP,SURG,COLECTOMY, PARTIAL, W/ANAST PA LAP,SURG,COLECTOMY,W/REMVL TERM ILEUM PA LAP,SURG,COLECTOMY,W/END COLOST & CLOSUR PA LAP,SURG,COLECTOMY,W/ANAST PA LAP, SURG, COLECTOMY, W/ANAST, W/COLOSTOMY PA LAP,SURG,COLECTOMY,TOTAL,W/O PROCTECTOMY PA LAP,SURG,COLECTOMY,TOTAL,W/PROCT ECTOMY PA LAP,SURG,COLECT,TOT,W/PROCTECT,W /ILEOST PA CYSTOURETHROSCOPY W URETERAL CATH PA CYSTOURETHROSCOPY W URETERAL CATH PA CYSTOSCOPY,INSERT URETERAL STENT cystoscopy with bilateral ureteral catheter insertion [facility] [address] [place] [address] Referral ID Status Reason Start Date Expiration Date Visits Re quested Visits Authorized [id number] 1 1 Encounter Details Date Type Department Care Team (Latest Contact Info) Description 08/20/2023 Hospital Encounter [facility] Services [address] [place] [address] Mauricio Padilla MD [address] [place] [id number] Colonic diverticular abscess Social History Tobacco Use [...] C-difficile 08/18/2023 08/18/2023 09/17/2023 11:3 9 PM AUTOMATIC DIE CUTTING MACHINE OPERATOR documented as of this encounter Care Teams Water Mechanic Relationship Specialty Start Date End Date No Ref-Primary, Physician PCP - General 03/25/23 10/19/23 Juan Pablo Buckley MD PCP - General Family Medicine 10/20/23 documented as of this encounter
--- OUTSIDE RECORDS SUMMARY | 2024-03-16 15:13 | XMS_ITS | Encounter Summary ---
Author Organization [facility] Address [address] [place] [address]. [place] [address] Care Team Providers Care Barrel Racer Name Role Phone No Ref-Primary, Physician Primary Care Provider Juan Pablo Buckley MD Primary Care Provider [phone] Encounter Details Date Type Department Care Team (Late st Contact Info) Description 08/18/[address] [facility] [address] [place] [address] Carlyn Barba MD [facility] [address] [address] C. difficile diarrhea (Primary Dx) Social History [...] Out C-difficile 08/18/2023 08/18/2023 024 5:02 AM SHIPPING WEIGHER C-difficile 08/18/2023 08/18/2023 09/17/2023 11:3 9 PM SHIPPING WEIGHER documented as of this encounter Care Teams Barrel Racer Relationship Specialty Start Date End Date No Ref-Primary, Physician PCP - General 03/25/23 10/19/23 Juan Pablo Buckley MD PCP - General Family Medicine 10/20/23 documented as of this encounter
--- OUTSIDE RECORDS SUMMARY | 2024-03-16 15:13 | XMS_ITS | Referral Summary ---
Author Organization [facility] Address [address] [place] [address] Care Team Providers Care Marketing Assistant Name Role Phone Juan Pablo Buckley MD Primary Care Provider [phone] Allergies No known active allergies Medications Medication [...] Associated Diagnosis Comments BASIC METABOLIC PANEL Routine 10/25/2023 7:49 AM CDT from Last 3 Months or Most Recently Relevant to Health Maintenance Results * Basic metabolic panel (10/25/2023 7:49 AM [...] MD LAB - BLOOD ORDERABL ES LABORATORY [facility] [address] Lab (1st floor, no room number) [place] [address], [facility] from Last 3 Months or Most Recently Relevant to Health Maintenance Advance Directives For more information, please contact: [phone] * Full Code (Latest Code Status on [...] patie nt/ legal decision maker Care Teams Marketing Assistant Relationship Specialty Start Date End Date Juan Pablo Buckley MD PCP - General Family Medicine 10/20/23
--- OUTSIDE RECORDS SUMMARY | 2024-03-16 15:13 | XMS_ITS | Continuity of Care Document ---
Author Organization [facility] Address [address] [facility] [address] [place] [address] Phone Care Team Providers Care Furnace Setter Name Role Phone Emmanuel Marya ROMAN Unavailable [...] by oral route 2 times every week [address] UNITS - Active Procedures Procedure Date Est [...] Providers Copied on Encounter [facility], [address], [place], [place], [address], [place] tel:[phone] [facility] No Information 3 [facility]. [address], [place], [address], [place]. tel:[phone] Referring Provider: Kaleb Lee, [address], [place], [address] . tel:[phone] Est Pt Eval 25 Min Malachi [facility], [address], [place], [place], [address], [place] tel:[phone] [facility] back pain (chief complaint) Body mass index (BMI) 26.0-26.9, adultRadiculopathy, lumbar region 3 Emmanuel Marya. [address], [place], [address], [place]. tel:[phone] Referring Provider: Kaleb Lee, [address], [place], [address] . tel:[phone] Malachi [facility], [address], [place], [place], [address], [place] tel:[phone] [facility] No Information 3 Jesus Zapata. [address], [address], [place], [place], [address], [place]. tel:[phone] Referring Provider: Benny Lee, [address], [place], [address] . tel:[phone] [facility], [address], [place], [address], [place] tel:[phone] [facility] back pain (chief complaint) Radiculopathy, lumbar regionRadiculopathy , lumbar region 3 [facility]. [address], [place], [address], [place]. tel:[phone] Referring Provider: Benny Lee, [address], [place], [address] . tel:[phone] [facility], [facility], [address], [place], [place], [address], [place] tel:[phone] [facility] No Information 3 Jesus Zapata. [address], [address], [place], [address], [place]. tel:[phone] Referring Provider: Benny Lee, [address], [place], [address] . tel:[phone] New Pt Eval 60 Min [facility], [facility], [address], [place], [place], [address], [place] tel:[phone] [facility] back pain (chief complaint) Radiculopathy, lumbar regionVertebrogenic low back painBody mass index (BMI) 27.0-27.9, adult Fe- 3 Foster Florin. [address], [place], [address], [place]. tel:[phone] Referring Provider: Kaleb Lee, [address], [place], [address] . tel:[phone] Family History Family Member Type Diagnosis Age At Onset No Information Payers Payer name Insurance type Covered libertarian ID Anne brian(s) Jacki Medicare PPO 16 [id number] Social History Type Description Quantity Date Captured [...]
--- OUTSIDE RECORDS SUMMARY | 2024-03-16 15:13 | XMS_ITS | Encounter Summary ---
Author Organization [facility] Address [address] [place] [address] Care Team Providers Care Secondary Art Teacher Name Role Phone Juan Pablo Buckley MD Primary Care Provider [phone] Encounter Details Date Type Department Care Team (Late st Contact Info) Description 11/19/2023 Orders Only [facility] [address] [place] [address] Galen Moffett PA-C [facility] [address] [place] [address] Fatigue (Primary Dx) Social History Tobacco Use [...] fatigue documented in this encounter Care Teams Secondary Art Teacher Relationship Specialty Start Date End Date Juan Pablo Buckley MD PCP - General Family Medicine 10/20/23 documented as of this encounter
--- OUTSIDE RECORDS SUMMARY | 2024-03-16 15:13 | XMS_ITS | Clinical Summary ---
Author Organization [facility] Address [place], [place] [address] Care Team Providers Care Slab Puller Name Role Phone Marco A Buckley MD Primary Care Provider [phone] Allergies No known active allergies Medications Medication [...] Comments Blood Pressure 147/74 07/09/2020 3:17 PM MEDICATION AIDE Pulse 77 07/09/2020 3:17 PM MEDICATION AIDE Temperature 36.3 ??C (97.4 ??F) 10/21/2015 9:36 AM CD T Respiratory Rate - - Oxygen Saturation 100% 07/09/2020 3:17 PM MEDICATION AIDE Inhaled Oxygen Concentration - - Weight 85.4 kg (188 lb 3.2 oz) 07/09/2020 3:17 P M MEDICATION AIDE Height 172.1 cm (5' 7.75) 10/21/2015 9:36 AM CD T Body Mass Index 28.83 10/21/2015 9:36 AM CDT Plan of Treatment Upcoming Encounters Date Type Department Care Team (Latest Contact Info) Description 04/19/2024 11:45 AM CDT Hospital Encounter [facility] [address] [place] [address] Magalie Palumbo MD [address] [place] [address] 04/19/2024 11:45 AM CDT - 04/19/2024 2:56 PM CDT Surgery [facility] [address] [place] [address] Magalie Palumbo MD [address] [place] [address] PROCEDURE(S): Decompression - Lateral recess Levels: L1 to: L4 Scheduled Procedures Name Priority Associated Diagnoses Date/Ti me LAMINECTOMY DECOMPRESSION SPINE LEVEL 03 Class E Urgent Stenosis, 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 04/19/2024 11:45 AM CDT Health Maintenance Due Date Last Done Comments Tdap 1955 Depression screening for age 12+ 1956 Tetanus booster 1964 Zoster (shingles) series for age 50+ (1 of 2) 1994 Medicare Wellness for age 65+ 2009 Pneumococcal series for age 65+ (1 of 1 - PCV) 2009 BMI (ht and wt on same day) for age 18+ 10/20/2016 10/21/2015 COVID-19 vaccine series (2022- season) 2023 04/20/2022, 01/01/2022, 06/10/2021, Additional history exists Influenza for age 65+ 03/26/2024 Care Teams Slab Puller Relationship Specialty Start Date End Date Marco A Buckley MD PCP - General Family Practice 03/18/23
--- OUTSIDE RECORDS SUMMARY | 2024-03-16 15:13 | XMS_ITS | Encounter Summary ---
Author Organization [facility] Address [address] [place] [address]. [place] [address] Care Team Providers Care Compressor Operator Adjuster Name Role Phone No Ref-Primary, Physician Primary Care Provider Juan Pablo Buckley MD Primary Care Provider [phone] Encounter Details Date Type Department Care Team (Late st Contact Info) Description 08/17/2023 Orders Only [facility] [address] [place] [address] Carlyn Barba MD [facility] [address] [address] Social History Tobacco Use Types Packs/Day Years [...] Out C-difficile 08/18/2023 08/18/2023 024 5:02 AM IRIDOLOGIST C-difficile 08/18/2023 08/18/2023 09/17/2023 11:3 9 PM IRIDOLOGIST documented as of this encounter Care Teams Compressor Operator Adjuster Relationship Specialty Start Date End Date No Ref-Primary, Physician PCP - General 03/25/23 10/19/23 Juan Pablo Buckley MD PCP - General Family Medicine 10/20/23 documented as of this encounter
--- OUTSIDE RECORDS SUMMARY | 2024-03-16 15:13 | XMS_ITS | Clinical Summary ---
Author Organization [facility] Address [address] [place] [address] Phone Care Team Providers Care Gastroenterology Physician Name Role Phone Unavailable Primary Care Provider [...] mg by mouth Taper called in to [facility] pharmacy in [place] 125 mg qid x 4 weeks 125 [...] Encounters Date Type Department Care Team Description 02/09/2024 11:00 AM CDT Office Visit [employer] [place] [id number] [facility] [address] [place] [address] Sybil Steinberg MD Clostridium difficile colitis (Primary Dx) from Last 3 Months Social History Tobacco [...] Orientation Not on file Plan of Treatment Health Maintenance Due Date Last Done Comments Pneumococcal PPSV23/PCV13 65 + Years / High and Highest Risk (1 of 4 - PCV) 1951 Influenza Vaccine (#1) [address] [place] [id number]
--- OUTSIDE RECORDS SUMMARY | 2024-03-16 15:13 | XMS_ITS | Clinical Summary ---
Author Organization [facility] Address [address] [place] [address] Care Team Providers Care Red Lead Burner Name Role Phone Juan Pablo Buckley MD Primary Care Provider [phone] Allergies No known active allergies Medications Medication [...] NICOTINE/TOBACCO CESSATION COUNSELING Q 1 YR 1944 ZOSTER IMMUNIZATION (1 of 2) 1963 RSV VACCINE ( & 60+) (1 - 1-dose 60+ series) 2004 FALL RISK ASSESSMENT 2009 MEDICARE ANNUAL WELLNESS VISIT 2009 DTAP/TDAP/TD IMMUNIZATION (1 - Tdap) 07/03/2018 07/02/2018 COVID-19 Vaccine (24 season) 2023 05/07/2023, 04/20/2022, 01/01/2022, Additional history exists PHQ-2 (once per calendar year) 2023 INFLUENZA VACCINE (#1) 2024 , 03/11/2022, 04/11/2021, Additional history exists GLUCOSE 10/24/2026 10/25/2023, 09/25, 10/22/2023, Additional history exists Pneumococcal Vaccine: 65+ Years Completed 04/15/2018, 07/25/2014 HPV IMMUNIZATION Aged Out No longer e [...] LAB - BLOOD ORDERABL ES RH LABORATORY [facility] Lab [address] [facility] Lab (1st floor, no room number) [place] [address], [facility] from Last 3 Months or Most Recently Relevant to Health Maintenance Advance Directives For more information, please contact: [phone] * Full Code (Latest Code Status on [...] Code status determined by: Discussion with deidre hart/ legal decision maker Care Teams Red Lead Burner Relationship Specialty Start Date End Date Juan Pablo Buckley MD PCP - General Family Medicine 10/20/23
--- OUTSIDE RECORDS SUMMARY | 2024-03-16 15:13 | XMS_ITS | Encounter Summary ---
Author Organization [facility] Address [facility] [place] [address] Care Team Providers Care Interventional Tech Name Role Phone No Ref-Primary, Physician Primary Care Provider Juan Pablo Buckley MD Primary Care Provider [phone] Encounter Details Date Type Department Care Team (Late st Contact Info) Description 08/12/[address] [facility] [address] [address] Carlyn Barba MD [facility] [address] [address] Social History Tobacco Use Types Packs/Day Years [...] C-difficile 07/16/2023 07/16/2023 08/15/2023 11:3 9 PM BAND MAKER Rule Out C-difficile 08/18/2023 08/18/2023 024 5:02 AM BAND MAKER C-difficile 08/18/2023 08/18/2023 09/17/2023 11:3 9 PM BAND MAKER documented as of this encounter Care Teams Interventional Tech Relationship Specialty Start Date End Date No Ref-Primary, Physician PCP - General 03/25/23 10/19/23 Juan Pablo Buckley MD PCP - General Family Medicine 10/20/23 documented as of this encounter
--- OUTSIDE RECORDS SUMMARY | 2024-03-16 15:13 | XMS_ITS | Encounter Summary ---
Author Organization [facility] Address [address] [place] [address] Phone Care Team Providers Care Road Conductor Name Role Phone Unavailable Primary Care Provider Unavailabl e Encounter Details Date Type Department Care Team (Late st Contact Info) Description 02/09/2024 11:00 AM CDT Office Visit [facility] [address] [place], [place] [address] Sybil Steinberg MD [address] [place] [address] Clostridium difficile colitis (Primary Dx) [...] Progress Notes * Sybil Steinberg MD - 02/09/2024 11:00 AM CDT Telephone encounter Doing well Only 1- 3 formed stool a day Done with vanco oral taper No new recommendations Fu is PRN documented in this encounter Plan of Treatment Not on file documented as of this encounter Visit Diagnoses Diagnosis Clostridium difficile colitis- Primary documented in this encounter
--- NOTE | 2024-03-16 15:30 | CRLHL7_ITS ---
For Patients: As a result of the Century Cures Act, medical imaging exams and procedure reports are released immediately into your electronic medical record. You may view this report before your referring provider. If you have questions, please contact your health care provider. INDICATION: Lumbar stenosis. COMPARISON: 02/27/2021. Technique Sagittal T1, T2, and STIR sequences. Axial T1 and T2 weighted sequences. FINDINGS: Normal vertebral body alignment. No fractures. No vertebral body loss of height. No spondylolisthesis. No ligamentous injury. No suspicious osseous lesions. Normal conus terminates at L1-2. Lumbar spondylosis with multilevel disc degeneration and facet arthropathy. T12-L1: Disc degeneration. Loss disc height. Modic type 1 endplate changes. Diffuse disc bulge eccentric to the left. Central disc protrusion measures approximately 3 mm in short axis. Mild narrowing of spinal canal. No neural foraminal narrowing. L1-2: Disc degeneration loss disc height. Diffuse disc bulge and endplate osteophytic ridging eccentric to the left. Mild to moderate narrowing of spinal canal. Left subarticular recess narrowing with potential impingement of the traversing left L2 nerve root. Mild narrowing of the left neural foramen. No narrowing of the right neural foramen. Mild facet arthropathy. L2-3: Disc degeneration. Diffuse disc bulge and endplate osteophytic ridging eccentric to the left. Moderate narrowing of spinal canal. Mild narrowing of bilateral foramina. Mild os arthropathy. L3-4: Disc degeneration. Loss disc height. Modic type 1 endplate changes. Diffuse disc bulge eccentric to the right. Combined with ligamentum flavum facet hypertrophy, there is moderate severe narrowing of spinal canal. Mild narrowing of the right neural foramen. No narrowing of left neural foramen. Mild os arthropathy. L4-5: Disc degeneration. Diffuse disc bulge eccentric to the left. No narrowing of spinal canal. Mild narrowing of the left neural foramen. No narrowing of the right neural foramen. Moderate arthropathy. L5-S1: Sacralization of L5 on the left. No narrowing of the spinal canal. No impingement of the traversing S1 nerve roots. Mild narrowing of the right neural foramen. No narrowing of left neural foramen. Moderate facet arthropathy. Degenerative changes of the SI joints. IMPRESSION: 1. Normal alignment. No fractures. 2. Lumbar spondylosis. 3. At T12-L1, disc degeneration. Diffuse disc bulge asymmetric to the left. Central disc protrusion. Mild narrowing of the spinal canal 4. At L1-2, mild to moderate narrowing of the spinal canal. Potential impingement of the traversing left L2 nerve root. Mild narrowing of left neural foramen 5. At L2-3, moderate narrowing of the spinal canal 6. At L3-4, moderate to severe narrowing of the spinal canal. Mild narrowing of the right neural foramen 7. At L4-5, mild narrowing of the left neural foramen 8. At L5-S1, mild narrowing of the right neural foramen Dictated by Kaleb Matthews MD @ 03/17/2024 12:16:02 PM (Electronically Signed)
== END 2024-03-16 15:10 | disposition home or self-care (01) ==
LOC: MRI 15:10
PROVIDERS: PCP Family Medicine; Visit Provider Specialist
DX: M48.062 Spinal stenosis, lumbar region with neurogenic claudication (principal); M47.896 Other spondylosis, lumbar region; M51.35 Other intervertebral disc degeneration, thoracolumbar region; M51.26 Other intervertebral disc displacement, lumbar region
CPT/HCPCS: 72148

== ENCOUNTER 2024-04-03 09:16 | Outpatient (CLI) | payer MEDICARE, SELFPAY | END 2024-04-03 09:17 | disposition home or self-care (01) | LOC: LKVREF 09:18 | PROVIDERS: PCP Family Medicine; Visit Provider Family Medicine | DX: Z01.818 Encounter for other preprocedural examination (principal) | CPT/HCPCS: 80053 ==

== ENCOUNTER 2024-04-13 07:35 | Outpatient (CLI) | payer MEDICARE, SELFPAY ==
--- OUTSIDE RECORDS SUMMARY | 2024-04-13 07:41 | XMS_ITS | Continuity of Care Document ---
Author Organization [facility] Address [address] [place] [address] Phone Care Team Providers Care Special Events Planner Name Role Phone Linwood DAVID, Amisathya Unavailable [...] on Encounter [facility], [address], [facility] [place], [id number], [place] tel:[phone] [facility] No Information 4 Mehbod Amir. [facility], [address], [place], [place], [address] , [place]. tel:[phone] Office/Outpat ient Visit,Est, Mod [facility], [address], [place], [id number], [place] tel:[phone] [facility] Spinal stenosis, lumbar region with neurogenic claudication 4 Mehbod Amir. [facility], [address] [place] [address] [address], [place], [place], [id number] , . tel:[phone] Referring Provider: Juan Pablo Amaya, [address], [facility]. tel:[phone] Office/Outpat ient Visit,Est, Mod [facility], [address], [place], [place], [id number], [place] tel:[phone] [facility] Spinal stenosis, lumbar region with neurogenic claudication 3 Mehbod Amir. [facility], [address] [place] [address] [address], [place], [place], [id number] , [place]. tel:[phone] Referring Provider: Juan Pablo Amaya, [address], [facility]. tel:[phone] Office/Outpat ient Visit,New, Mod [facility], [address], [place], [place], [id number], [place] tel:[phone] [facility] Low back painSpinal stenosis, lumbar region with neurogenic claudication 1 Kenzie Leary. [facility], [address] [place] [address], [address], [place], [place], [address] , . tel:[phone] Referring Provider: Juan Pablo Amaya, [address], [facility]. tel:[phone] Family History Family Member Type Diagnosis Age At Onset No Information Payers Payer name Insurance type Covered libertarian ID Anne brian(s) [employer] [facility] 2021 CI [id number] Social History Type Description Quantity Date Captured [...]
--- OUTSIDE RECORDS SUMMARY | 2024-04-13 07:41 | XMS_ITS | Clinical Summary ---
Author Organization [facility] Address [place], [place] [address] Care Team Providers Care Lard Refiner Name Role Phone Marco A Buckley MD Primary Care Provider [phone] Allergies No known active allergies Medications Medication [...] Comments Blood Pressure 147/74 07/09/2020 3:17 PM COMMUNICATIONS EDITOR Pulse 77 07/09/2020 3:17 PM COMMUNICATIONS EDITOR Temperature 36.3 ??C (97.4 ??F) 10/21/2015 9:36 AM CD T Respiratory Rate - - Oxygen Saturation 100% 07/09/2020 3:17 PM COMMUNICATIONS EDITOR Inhaled Oxygen Concentration - - Weight 85.4 kg (188 lb 3.2 oz) 07/09/2020 3:17 P M COMMUNICATIONS EDITOR Height 172.1 cm (5' 7.75) 10/21/2015 9:36 AM CD T Body Mass Index 28.83 10/21/2015 9:36 AM CDT Plan of Treatment Upcoming Encounters Date Type Department Care Team (Latest Contact Info) Description 04/13/2024 8:30 AM CDT Ancillary Procedure [facility] [address] [place] [address] 04/19/2024 11:45 AM CDT Hospital Encounter [facility] [address] [place] [address] Magalie Palumbo MD [address] [place] [address] 04/19/2024 11:45 AM CDT - 04/19/2024 2:56 PM CDT Surgery [facility] [address] [place] [address] Magalie Palumbo MD [address] [place] [address] PROCEDURE(S): Decompression - Lateral recess Levels: L1 to: L4 Scheduled Procedures Name Priority Associated Diagnoses Date/Ti me LAMINECTOMY DECOMPRESSION SPINE LEVEL 03 Class E Urgent Stenosis, 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 04/19/2024 11:45 AM CDT Health Maintenance Due Date Last Done Comments Tdap 1955 Depression screening for age 12+ 1956 Tetanus booster 1964 Zoster (shingles) series for age 50+ (1 of 2) 1994 RSV vaccine for adults or (1 - 1-dose 60+ series) 2004 Medicare Wellness for age 65+ 2009 Pneumococcal series for age 65+ (1 of 1 - PCV) 2009 BMI (ht and wt on same day) for age 18+ 10/20/2016 10/21/2015 COVID-19 vaccine series (2022- season) 2024 05/07/2023, 04/20/2022, 01/01/2022, Additional history exists Influenza for age 65+ 03/26/2024 Care Teams Lard Refiner Relationship Specialty Start Date End Date Marco A Buckley MD PCP - General Family Practice 03/18/23
--- OUTSIDE RECORDS SUMMARY | 2024-04-13 07:41 | XMS_ITS | Referral Summary ---
Author Organization [facility] Address [address] [place] [address] Care Team Providers Care Head Transfer Clerk Name Role Phone Juan Pablo Buckley MD Primary Care Provider [phone] Allergies No known active allergies Medications Medication [...] MD LAB - BLOOD ORDERABL ES LABORATORY [facility] Acute Care Lab [address] Lab (1st floor, no room number) [place] [address], [facility] from Last 3 Months or Most Recently Relevant to Health Maintenance Advance Directives For more information, please contact: [phone] * Full Code (Latest Code Status on [...] Comments Code status determined by: Discussion with Hav[employer] nt/ legal decision maker Care Teams Head Transfer Clerk Relationship Specialty Start Date End Date Juan Pablo Buckley MD PCP - General Family Medicine 10/20/23
--- OUTSIDE RECORDS SUMMARY | 2024-04-13 07:41 | XMS_ITS | Clinical Summary ---
Author Organization [facility] Address [address] [place] [address] Phone Care Team Providers Care Music Autographer Name Role Phone Unavailable Primary Care Provider [...] mg by mouth Taper called in to [facility] pharmacy in [place] 125 mg qid x 4 weeks 125 [...] Description 02/09/2024 11:00 AM CDT Office Visit [facility] [place] 899[address] [facility] [address] [place] [address] Sybil Steinberg MD Clostridium difficile colitis (Primary [...] 1951 Influenza Vaccine (#1) [address] [place] [address]
--- OUTSIDE RECORDS SUMMARY | 2024-04-13 07:41 | XMS_ITS | Encounter Summary ---
Author Organization [facility] Address [facility] [place] [address] Care Team Providers Care Team Coordinator Name Role Phone No Ref-Primary, Physician Primary Care Provider Juan Pablo Buckley MD Primary Care Provider [phone] Encounter Details Date Type Department Care Team (Late st Contact Info) Description 08/12/[address] [facility] [address] [address] Carlyn Barba MD [facility] [address] [id number] Social History Tobacco Use Types Packs/Day Years [...] C-difficile 07/16/2023 07/16/2023 08/15/2023 11:3 9 PM INCIDENT HANDLER Rule Out C-difficile 08/18/2023 08/18/2023 024 5:02 AM INCIDENT HANDLER C-difficile 08/18/2023 08/18/2023 09/17/2023 11:3 9 PM INCIDENT HANDLER documented as of this encounter Care Teams Team Coordinator Relationship Specialty Start Date End Date No Ref-Primary, Physician PCP - General 03/25/23 10/19/23 Juan Pablo Buckley MD PCP - General Family Medicine 10/20/23 documented as of this encounter
--- OUTSIDE RECORDS SUMMARY | 2024-04-13 07:41 | XMS_ITS | Encounter Summary ---
Author Organization [facility] Address [address] [place] [address] Care Team Providers Care Pantry Goods Maker Name Role Phone Juan Pablo Buckley MD Primary Care Provider [phone] Encounter Details Date Type Department Care Team (Late st Contact Info) Description 11/19/2023 Orders Only [facility] [address] [place] [address] Galen Moffett PA-C [facility] [address] [place] [address] Fatigue (Primary Dx) Social History Tobacco Use [...] fatigue documented in this encounter Care Teams Pantry Goods Maker Relationship Specialty Start Date End Date Juan Pablo Buckley MD PCP - General Family Medicine 10/20/23 documented as of this encounter
--- OUTSIDE RECORDS SUMMARY | 2024-04-13 07:41 | XMS_ITS | Encounter Summary ---
Author Organization [facility] Address [address] [place] [address] Care Team Providers Care Histotechnologist Supervisor Name Role Phone No Ref-Primary, Physician Primary Care Provider Juan Pablo Buckley MD Primary Care Provider [phone] 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] Procedures AR LAP,SURG,COLECTOMY, PARTIAL, W/ANAST AR LAP,SURG,COLECTOMY,W/REMVL TERM ILEUM AR LAP,SURG,COLECTOMY,W/END COLOST & CLOSUR AR LAP,SURG,COLECTOMY,W/ANAST AR LAP, SURG, COLECTOMY, W/ANAST, W/COLOSTOMY AR LAP,SURG,COLECTOMY,TOTAL,W/O PROCTECTOMY AR LAP,SURG,COLECTOMY,TOTAL,W/PROCT ECTOMY AR LAP,SURG,COLECT,TOT,W/PROCTECT,W /ILEOST AR CYSTOURETHROSCOPY W URETERAL CATH AR CYSTOURETHROSCOPY W URETERAL CATH AR CYSTOSCOPY,INSERT URETERAL STENT cystoscopy with bilateral ureteral catheter insertion [facility] [address] [place] [address] Referral ID Status Reason Start Date Expiration Date Visits Re quested Visits Authorized [id number] 1 1 Encounter Details Date Type Department Care Team (Latest Contact Info) Description 08/20/2023 Hospital Encounter [facility] [address] [place] [address] [place] [address] Mauricio Padilla MD [address] [place] [address] Colonic diverticular abscess Social History Tobacco Use [...] C-difficile 08/18/2023 08/18/2023 09/17/2023 11:3 9 PM WAD BLANKING PRESS ADJUSTER documented as of this encounter Care Teams Histotechnologist Supervisor Relationship Specialty Start Date End Date No Ref-Primary, Physician PCP - General 03/25/23 10/19/23 Juan Pablo Buckley MD PCP - General Family Medicine 10/20/23 documented as of this encounter
--- OUTSIDE RECORDS SUMMARY | 2024-04-13 07:41 | XMS_ITS | Encounter Summary ---
Author Organization [facility] Address [address] [place] [address]. [place] [address] Care Team Providers Care Compensation Consultant Name Role Phone No Ref-Primary, Physician Primary Care Provider Juan Pablo Buckley MD Primary Care Provider [phone] Encounter Details Date Type Department Care Team (Late st Contact Info) Description 08/18/2023 Orders Only [facility] [address] [place] [address] Carlyn Barba MD [facility] [address] [id number] C. difficile diarrhea (Primary Dx) Social History [...] Out C-difficile 08/18/2023 08/18/2023 024 5:02 AM THROUGH FREIGHT ENGINEER C-difficile 08/18/2023 08/18/2023 09/17/2023 11:3 9 PM THROUGH FREIGHT ENGINEER documented as of this encounter Care Teams Compensation Consultant Relationship Specialty Start Date End Date No Ref-Primary, Physician PCP - General 03/25/23 10/19/23 Juan Pablo Buckley MD PCP - General Family Medicine 10/20/23 documented as of this encounter
--- OUTSIDE RECORDS SUMMARY | 2024-04-13 07:41 | XMS_ITS | Encounter Summary ---
Author Organization [facility] Address [address] [place] [address] Phone Care Team Providers Care Embedded Systems Software Engineer Name Role Phone Unavailable Primary Care Provider Unavailabl e Encounter Details Date Type Department Care Team (Late st Contact Info) Description 02/09/2024 11:00 AM CDT Office Visit [facility] [address] [place], [place] [address] Sybil Steinberg MD [address] [place] [address] Clostridium difficile colitis (Primary Dx) [...]
--- OUTSIDE RECORDS SUMMARY | 2024-04-13 07:41 | XMS_ITS | Clinical Summary ---
Author Organization [facility] Address [address] [place] [address] Care Team Providers Care Stamping Operator Name Role Phone Juan Pablo Buckley MD Primary Care Provider [phone] Allergies No known active allergies Medications Medication [...] 1944 ZOSTER IMMUNIZATION (1 of 2) 1963 FALL RISK ASSESSMENT 2009 MEDICARE ANNUAL WELLNESS VISIT 2009 DTAP/TDAP/TD IMMUNIZATION (1 - Tdap) 07/03/2018 07/02/2018 RSV VACCINE (1 - 1-dose 75+ series) 2019 PHQ-2 (once per calendar year) 2023 COVID-19 Vaccine ( season) 2024 05/07/2023, 04/20/2022, 01/01/2022, Additional history exists INFLUENZA VACCINE (#1) 2024 , 03/11/2022, 04/11/2021, [...] LAB - BLOOD ORDERABL ES RH LABORATORY [facility] Acute Care Lab [address] Lab (1st floor, no room number) [place] [address], [facility] from Last 3 Months or Most Recently Relevant to Health Maintenance Advance Directives For more information, please contact: [phone] * Full Code (Latest Code Status on File) Date Activated Date Inactivated Comments 10/20/2023 8:39 PM 10/27/2023 5:48 PM All basic and advanced life-sustaining interventions are performed as appropriate Question Answer Comments Code status determined by: Discussion with deidre hart/ legal decision maker * Full Code Date [...] deidre nt/ legal decision maker Care Teams Stamping Operator Relationship Specialty Start Date End Date Juan Pablo Buckley MD PCP - General Family Medicine 10/20/23
--- OUTSIDE RECORDS SUMMARY | 2024-04-13 07:41 | XMS_ITS | Encounter Summary ---
Author Organization [facility] Address [address] [place] [address]. [place] [address] Care Team Providers Care Historiographer Name Role Phone No Ref-Primary, Physician Primary Care Provider Juan Pablo Buckley MD Primary Care Provider [phone] Encounter Details Date Type Department Care Team (Late st Contact Info) Description 08/17/2023 Orders Only [facility] [address] [place] [address] Carlyn Barba MD [facility] [address] [address] Social History Tobacco Use Types Packs/Day Years [...] Out C-difficile 08/18/2023 08/18/2023 024 5:02 AM GAMEROOM TECHNICIAN C-difficile 08/18/2023 08/18/2023 09/17/2023 11:3 9 PM GAMEROOM TECHNICIAN documented as of this encounter Care Teams Historiographer Relationship Specialty Start Date End Date No Ref-Primary, Physician PCP - General 03/25/23 10/19/23 Juan Pablo Buckley MD PCP - General Family Medicine 10/20/23 documented as of this encounter
--- OUTSIDE RECORDS SUMMARY | 2024-04-13 07:41 | XMS_ITS | Continuity of Care Document ---
Author Organization [facility] Address [address] [facility] [address] [place] [address] Phone Care Team Providers Care Insurance Risk Analyst Name Role Phone Emmanuel BOX COVERING MACHINE OPERATORGraham, Marya Unavailable Unavailable Allergies, Adverse Reactions, Alerts Substance Reaction Status Criticality No Known Allergies Active No Inform ation Medications Medication Instructions Dosage Effective Dates (start - stop) Status Comments Vitamin D2 1,250 mcg (50,000 unit) capsule take 1 capsule by oral route 2 times every week [address] UNITS - Active Vitamin C 500 mg tablet take 2 tablet by oral route every day 2 tablet - Active tramadol 50 mg tablet take 1 tablet by oral route every 12 hours as needed 50 MG - Active simvastatin 40 mg tablet take 1 tablet by oral route every day in the evening 40 MG - Active nitroglycerin 0.[address] 1 tablet by sublingual route every 5 minutes as needed for chest pain. Do not exceed 3 doses in 15 minutes. 0.4 MG - Active multivitamin tablet take 1 tablet by oral route every day for 1 day 1 tablet - Active lisinopril 20 mg tablet take 1 tablet by oral route 2 times every day 20 MG - Active latanoprost 0.005 % eye drops instill 1 drop by ophthalmic route every day into affected eye(s) in the evening 1.00 drop - Active aspirin 325 mg tablet take 2 tablet by oral route 5 times every day 650 MG - Active alprazolam 0.25 mg tablet take 1 tablet by oral route 3 times every day 0.25 MG - Active Procedures Procedure Date Est Pt [...] Providers Copied on Encounter [facility], [address], [place], [place], [id number], [place] tel:[phone] [facility] No Information 3 [facility]. [address], [place], [address], [place]. tel:[phone] Referring Provider: Kaleb Lee, [address], [place], [address] . tel:[phone] Est Pt Eval 25 Min Malachi [facility], [address], [place], [place], [address], [place] tel:[phone] [facility] back pain (chief complaint) Body mass index (BMI) 26.0-26.9, adultRadiculopathy, lumbar region 3 Emmanuel Marya. [address], [place], [address], [place]. tel:[phone] Referring Provider: Kaleb Lee, [address], [place], [address] . tel:[phone] Malachi [facility], [address], [place], [place], [id number], [place] tel:[phone] [facility] No Information 3 Jesus Zapata. [address], [address], [place], [place], [address], [place]. tel:[phone] Referring Provider: Benny Lee, [address], [place], [address] . tel:[phone] [facility], [address], [place], [address], [place] tel:[phone] [facility] back pain (chief complaint) Radiculopathy, lumbar regionRadiculopathy , lumbar region 3 [facility]. [address], [place], [place], [address], [place]. tel:[phone] Referring Provider: Benny Lee, [address], [place], [address] . tel:[phone] [facility], [facility], [address], [place], [place], [address], [place] tel:[phone] [facility] No Information 3 Jesus Zapata. [address], [address], [place], [place], [address], [place]. tel:[phone] Referring Provider: Benny Lee, [address], [place], [address] . tel:[phone] New Pt Eval 60 Min [facility], [facility], [address], [place], [place], [address], [place] tel:[phone] [facility] back pain (chief complaint) Radiculopathy, lumbar regionVertebrogenic low back painBody mass index (BMI) 27.0-27.9, adult Fe- 3 Foster Florin. [address], [place], [address], [place]. tel:[phone] Referring Provider: Kaleb Lee, [address], [place], [address] . tel:[phone] Family History Family Member Type Diagnosis Age At Onset No Information Payers Payer name Insurance type Covered libertarian ID Anne brian(s) Jacki Medicare PPO 16 [id number] Social History Type Description Quantity Date Captured [...]
[2024-04-13] MEDS: SODIUM CHLORIDE 0.9 % (FLUSH) 10 ML SYRINGE IVF (09:45)
[2024-04-13] MEDS: REGADENOSON 0.4 MG/5 ML SYRINGE IVP (09:45)
[2024-04-13 10:30] VITALS: BP 147/71; PULSE 72
--- NOTE | 2024-04-13 11:50 | P.STN_ITS ---
Stress Test Note Date Date Seen: 04/13/24 Date of test: 04/13/24 Providers Primary care provider: Marco A Buckley Stress test physician: Maryan Mckeon Stress Test Note Stress test ordered: Lexiscan Indication for test: Known CAD, preoperative assessment prior to laminectomy Stress test medicine: Lexiscan Results discussion: Resting EKG: Sinus bradycardia, 55 beats per minute. Nonspecific T-wave changes. Resting blood pressure: 159/74 Stress test: Patient was consented on stress test ordered. Patient underwent a nonwalking Lexiscan. With the infusion of the regadenoson, patient experienced lightheadedness and then had some abdominal cramping. Patient had no chest pain, symptoms were short lived. There was no arrhythmia noted, there was no diagnostic criteria for ischemia. Patient continued to have the nonspecific T- wave changes in observed leads without significant worsening. Patient was asymptomatic at termination of the test. Await nuclear medicine images to couple this for a full formal diagnostic. Impression: Subjectively negative, objectively negative EKG portion of this Lexiscan. Follow up suggested: Patient will have post stressed nuclear medicine images obtained and then discharge to home. He will await final report from his primary provider.
== END 2024-04-13 07:36 | disposition home or self-care (01) ==
LOC: STRESS 07:38
PROVIDERS: PCP Family Medicine; Visit Provider Family Medicine
DX: I25.810 Atherosclerosis of coronary artery bypass graft(s) without angina pectoris (principal); Z72.0 Tobacco use; E78.00 Pure hypercholesterolemia, unspecified
CPT/HCPCS: 78452; 93016; 93017; A9500; J2785

== ENCOUNTER 2024-04-23 14:55 | Emergency (ER) | payer MEDICARE, SELFPAY ==
--- OUTSIDE RECORDS SUMMARY | 2024-04-23 14:56 | XMS_ITS | Encounter Summary ---
Author Organization [facility] Address [address] [place] [address] Phone Care Team Providers Care Guest Services Attendant Name Role Phone Unavailable Primary Care Provider Unavailabl e Encounter Details Date Type Department Care Team (Late st Contact Info) Description 02/09/2024 11:00 AM CDT Office Visit [facility] [address] [place], [place] [address] Sybil Steinberg MD [address] [place] [address] Clostridium difficile colitis (Primary Dx) [...]
--- OUTSIDE RECORDS SUMMARY | 2024-04-23 14:56 | XMS_ITS | Continuity of Care Document ---
Author Organization [facility] Address [address] [place] [address] Phone Care Team Providers Care Food Services Coordinator Name Role Phone Theodore Valladares Unavailable Unavailable Allergies, Adverse Reactions, Alerts Substance Reaction Status Criticality No Known Allergies Active No Inform ation Medications Medication Instructions Dosage Effective Dates (start - stop) Status Comments SIMVASTATIN (unknown strength) Not Available - Active ASPIRIN (unknown strength) Not Available - Active LISINOPRIL (unknown strength) Not Available - Active Procedures Procedure Date Lami, Facetectomy/Foraminotomy, Lumbar ( Stenosis) Lami, Facetectomy/Foraminotomy - Additio nal Level(s) - PA Lami, Facetectomy/Foraminotomy, Lumbar ( Stenosis) [place]ami, Facetectomy/Foraminotomy - Additio nal Level(s) Office/Outpatient Visit,Est, Mod 2023 Office/Outpatient Visit,Est, Mod 2022 Office/Outpatient Visit,New, Mod 2020 Advance Directives Directive Yes / No Effective Date File Name No Information Encounters Encounter Description Practice Location Reason(s) For Visit Diagnoses Date Provider Providers Copied on Encounter Ramesh/KOSTAS Amaya, [address], [place], [id number], [place] tel:[phone] [facility] No Information Willy Jaimes. [address] [address], [place], [id number] , [place]. tel:[phone] Referring Provider: Juan Pablo Amaya, [address], [address]. tel:[phone] [facility], [address], [place], [place], [id number], [place] tel:[phone] [facility] No Information Mar- 4 Mehbod Amir. [facility], [address] [place] [address] [address], [facility] [place], [id number] , [place]. tel:[phone] Referring Provider: Juan Pablo Amaya, [address], [facility]. tel:[phone] Office/Outpat ient Visit,Est, Mod [facility], [address], [place], [id number], [place] tel:[phone] [facility] Spinal stenosis, lumbar region with neurogenic claudication 4 Mehbod Amir. [facility], [address] [place] [address] [address], [place], [place], [id number] , [place]. tel:[phone] Referring Provider: Juan Pablo Amaya, [address], [address]. tel:[phone] Office/Outpat ient Visit,Est, Mod [facility], [address], [place], [id number], [place] tel:[phone] [facility] Spinal stenosis, lumbar region with neurogenic claudication 3 Mehbod Amir. [facility], [address] [place] [address] [address], [place], [place], [id number] , [place]. tel:[phone] Referring Provider: Juan Pablo Amaya, [address], [address]. tel:[phone] Office/Outpat ient Visit,New, Mod [facility], [address], [place], [id number], [place] tel:[phone] [facility] Low back painSpinal stenosis, lumbar region with neurogenic claudication 1 Kenzie Leary. [facility], [address] [place] [address], [address], [place], [place], [id number] , [place]. tel:[phone] Referring Provider: Juan Pablo Amaya, [facility] [address] [place] [address], [address]. tel:[phone] Family History Family Member Type Diagnosis Age At Onset No Information Payers Payer name Insurance type Covered constitution party ID Anne brian(s) [employer] [facility] 2021 CI [id number] Social History Type Description Quantity Date Captured [...]
--- OUTSIDE RECORDS SUMMARY | 2024-04-23 14:56 | XMS_ITS | Clinical Summary ---
Author Organization [facility] Sil[facility]al Address [address] [place] [address] Phone Care Team Providers Care County Director Welfare Name Role Phone Unavailable Primary Care Provider [...] mg by mouth Taper called in to [facility] in [place] 125 mg qid x 4 weeks 125 [...] Description 02/09/2024 11:00 AM CDT Office Visit [address] [facility] [address] [place] [address] Sybil Steinberg MD Clostridium difficile colitis (Primary [...] 1951 Influenza Vaccine (#1) 20[address] [place] [address]
--- OUTSIDE RECORDS SUMMARY | 2024-04-23 14:56 | XMS_ITS | Continuity of Care Document ---
Author Organization [facility] Address [address] [facility] [address] [place] [address] Phone Care Team Providers Care Office Inspector Name Role Phone Emmanuel Marya ROMAN Unavailable [...] by oral route 2 times every week [address] UNITS - Active Procedures Procedure Date Est [...] Providers Copied on Encounter MONSERRAT Ly, [address], [place], [place], [id number], [place] tel:[phone] [facility] No Information 3 [facility]. [address], [place], [address], [place]. tel:[phone] Referring Provider: Kaleb Lee, [address], [place], [address] . tel:[phone] Est Pt Eval 25 Min Malachi [facility], [address], [place], [place], [address], [place] tel:[phone] [facility] back pain (chief complaint) Body mass index (BMI) 26.0-26.9, adultRadiculopathy, lumbar region 3 Emmanuel Marya. [address], [place], [address], [place]. tel:[phone] Referring Provider: Kaleb Lee, [address], [place], [address] . tel:[phone] Malachi [facility], [address], [place], [place], [id number], [place] tel:[phone] [facility] No Information 3 Jesus Zapata. [address], [address], [place], [place], [id number], [place]. tel:[phone] Referring Provider: Benny Lee, [address], [place], [address] . tel:[phone] [facility], [address], [place], [address], [place] tel:[phone] [facility] back pain (chief complaint) Radiculopathy, lumbar regionRadiculopathy , lumbar region 3 [facility]. [address], [place], [address], [place]. tel:[phone] Referring Provider: Benny Lee, [address], [place], [address] . tel:[phone] [facility], [facility], [address], [place], [place], [address], [place] tel:[phone] [facility] No Information 3 Jesus Zapata. [address], [address], [place], [address], [place]. tel:[phone] Referring Provider: Benny Lee, [address], [place], [address] . tel:[phone] New Pt Eval 60 Min [facility], [facility], [address], [place], [place], [id number], [place] tel:[phone] [facility] back pain (chief complaint) Radiculopathy, lumbar regionVertebrogenic low back painBody mass index (BMI) 27.0-27.9, adult Fe- 3 Foster Florin. [address], [place], [address], [place]. tel:[phone] Referring Provider: Kaleb Lee, [address], [place], [address] . tel:[phone] Family History Family Member Type Diagnosis Age At Onset No Information Payers Payer name Insurance type Covered green party ID Anne brian(s) [employer] Medicare PPO 16 [id number] Social History Type Description Quantity Date Captured [...]
--- OUTSIDE RECORDS SUMMARY | 2024-04-23 14:57 | XMS_ITS | Encounter Summary ---
Author Organization [facility] Address [address] [place] [address]. [place] [address] Care Team Providers Care Dressing Machine Operator Name Role Phone No Ref-Primary, Physician Primary Care Provider Juan Pablo Buckley MD Primary Care Provider [phone] Encounter Details Date Type Department Care Team (Late st Contact Info) Description 08/17/2023 Orders Only [facility] [address] [place] [address] Carlyn Barba MD [facility] [address] [id number] Social History Tobacco Use Types Packs/Day Years [...] Out C-difficile 08/18/2023 08/18/2023 024 5:02 AM STRUCTURAL METAL FABRICATOR APPRENTICE C-difficile 08/18/2023 08/18/2023 09/17/2023 11:3 9 PM STRUCTURAL METAL FABRICATOR APPRENTICE documented as of this encounter Care Teams Dressing Machine Operator Relationship Specialty Start Date End Date No Ref-Primary, Physician PCP - General 03/25/23 10/19/23 Juan Pablo Buckley MD PCP - General Family Medicine 10/20/23 documented as of this encounter
--- OUTSIDE RECORDS SUMMARY | 2024-04-23 14:57 | XMS_ITS | Encounter Summary ---
Author Organization [facility] Address [facility] [place] [address] Care Team Providers Care Boardmarker Name Role Phone No Ref-Primary, Physician Primary Care Provider Juan Pablo Buckley MD Primary Care Provider [phone] Encounter Details Date Type Department Care Team (Late st Contact Info) Description 08/12/2023 Hospital Encounter [facility] [address] [address] Carlyn Barba MD [facility] [address] [place] [id number] Social History Tobacco Use Types Packs/Day Years [...] C-difficile 07/16/2023 07/16/2023 08/15/2023 11:3 9 PM INSPECTOR GENERAL Rule Out C-difficile 08/18/2023 08/18/2023 024 5:02 AM INSPECTOR GENERAL C-difficile 08/18/2023 08/18/2023 09/17/2023 11:3 9 PM INSPECTOR GENERAL documented as of this encounter Care Teams Boardmarker Relationship Specialty Start Date End Date No Ref-Primary, Physician PCP - General 03/25/23 10/19/23 Juan Pablo Buckley MD PCP - General Family Medicine 10/20/23 documented as of this encounter
--- OUTSIDE RECORDS SUMMARY | 2024-04-23 14:57 | XMS_ITS | Encounter Summary ---
Author Organization [facility] Address [address] [place] [address]. [place] [address] Care Team Providers Care Hazardous Substances Engineer Name Role Phone No Ref-Primary, Physician Primary Care Provider Juan Pablo Buckley MD Primary Care Provider [phone] Encounter Details Date Type Department Care Team (Late st Contact Info) Description 08/18/2023 Orders Only [facility] [address] [place] [address] Carlyn Barba MD [facility] SURGERY [address] [id number] C. difficile diarrhea (Primary Dx) Social History [...] Out C-difficile 08/18/2023 08/18/2023 024 5:02 AM EGG GRADER C-difficile 08/18/2023 08/18/2023 09/17/2023 11:3 9 PM EGG GRADER documented as of this encounter Care Teams Hazardous Substances Engineer Relationship Specialty Start Date End Date No Ref-Primary, Physician PCP - General 03/25/23 10/19/23 Juan Pablo Buckley MD PCP - General Family Medicine 10/20/23 documented as of this encounter
--- OUTSIDE RECORDS SUMMARY | 2024-04-23 14:57 | XMS_ITS | Clinical Summary ---
Author Organization [facility] Address [address] [place] [address] Care Team Providers Care Wardrobe Supervisor Name Role Phone Juan Pablo Buckley MD Primary Care Provider [phone] Allergies No known active allergies Medications Medication [...] into both eyes every 3 days Active lactobacillus rhamnosus, GG, (CULTURELL) capsule Take [...] for moderate pain 15 tablet 10/27/2023 Active nitroGLYcerin (NITROSTAT) 0.[address] 0.4 mg under the tongue every 5 minutes as needed for chest pain 08/05/2022 Discontinue d(Patient Discharge) Active Problems Problem Noted Date Diagnosed [...] YR 1945 ZOSTER IMMUNIZATION (1 of 2) 1994 FALL RISK ASSESSMENT 2009 MEDICARE ANNUAL WELLNESS VISIT 2009 DTAP/TDAP/TD IMMUNIZATION (1 - Tdap) 07/03/2018 07/02/2018 RSV VACCINE (1 - 1-dose 75+ series) 2019 PHQ-2 (once per calendar year) 2023 COVID-19 Vaccine (2023- season) 2024 05/07/2023, 04/20/2022, 01/01/2022, Additional history [...] Basic metabolic panel (10/25/2023 7:49 AM CDT) [facility] Sodium 140 135 - 145 mmol/L 10/25/2023 [...] LAB - BLOOD ORDERABL ES [facility] [address] [facility] (1st floor, no room number) [place] [address] from Last 3 Months or Most Recently Relevant to Health Maintenance Advance Directives For more information, please contact: [phone] * Full Code (Latest Code Status on [...] deidre nt/ legal decision maker Care Teams Wardrobe Supervisor Relationship Specialty Start Date End Date Juan Pablo Buckley MD PCP - General Family Medicine 10/20/23
--- OUTSIDE RECORDS SUMMARY | 2024-04-23 14:57 | XMS_ITS | Clinical Summary ---
Author Organization [facility] Address [place], [place] [address] Care Team Providers Care Director Style Name Role Phone Marco A Mello MD Primary Care Provider [phone] Allergies Active Allergy Reactions Criticality Noted Date Comments Unlisted Allergen (Include Detail In Comments) Other - Describe In Comment Field 04/18/2024 Seasonal and environmental allergies Medications Medication Sig Dispensed Refills Start Date End Date Status ASPIRIN 325 MG ORAL TAB Take 325 mg by mouth once daily. ? 0 4 Active nitroglycerin (NITROSTAT) 0.[address] 0.4 mg under the tongue every 5 minutes if needed for Chest Pain. ? 0 4 Active MULTIVITAMIN ORAL TAB Take 1 Tablet by mouth once daily. ? 0 4 Active ALPRAZolam (XANAX) 0.5 mg tablet Take 0.5 mg by mouth 2 times daily if needed for Anxiety. 5 Active lisinopril (PRINIVIL; ZESTRIL) 20 mg tablet Take 20 mg by mouth once daily in the evening. 5 Active simvastatin (ZOCOR) 20 mg tablet Take 20 mg by mouth at bedtime. 4 Active latanoprost (XALATAN) 0.005 % ophthalmic solution Place 1 Drop into both eyes at bedtime. 2.5 mL 0 5 Active cholecalciferol, Vitamin D3, (Vitamin D-3) 5,000 unit tab tablet Take 5,000 units by mouth once daily. Active acetaminophen (Tylenol Extra Strength) 500 mg tablet Take 500-1,000 mg by mouth every 6 hours if needed. Max acetaminophen dose: 4000mg in 24 hrs. Active oxyCODONE (ROXICODONE) 5 mg immediate release tabletIndications: Spinal stenosis of lumbar region with neurogenic claudication Take 1-2 Tablets (5-10 mg) by mouth every 4 hours if needed for Pain (First choice for severe pain.). 25 Tablet 4 Active ondansetron (ZOFRAN ODT) 4 mg disintegrating tabletIndications: Spinal stenosis of lumbar region with neurogenic claudication Place 1 Tablet (4 mg) on the tongue every 8 hours if needed for Nausea/Vomiting. 30 Tablet 4 Active polyethylene glycoL (MIRALAX) 17 gram/scoop powderIndications: Spinal stenosis of lumbar region with neurogenic claudication Take 1 scoop (17 g) mixed in liquid by mouth or nasogastric tube once daily if needed for Constipation. 510 g 4 Active sennosides-docusat e (SENOKOT S) (8.6-50 mg) tabletIndications: Spinal stenosis of lumbar region with neurogenic claudication Take 1-4 Tablets by mouth two times daily. 240 Tablet 4 024 Active methocarbamoL (ROBAXIN) 500 mg tabletIndications: Spinal stenosis of lumbar region with neurogenic claudication Take 1 Tablet (500 mg) by mouth every 6 hours if needed for Muscle Spasm 1st choice. 30 Tablet 4 Active WalkerIndications: Spinal stenosis of lumbar region with neurogenic claudication Walker with front wheels for home use for 3 months. 1 Each 4 Active albuterol HFA (PRO-AIR; VENTOLIN; PROVENTIL) 90 mcg/actuation inhalerIndications :Chronic obstructive pulmonary disease, unspecified COPD type (HC) Inhale 1 to 2 Puffs by mouth every 4 hours if needed for Shortness of Breath 1st choice or Wheezing 1st choice. 8.5 g 4 Active IBUPROFEN ORAL Take 200-400 mg by mouth every 6 hours if needed. As needed 024 Discontinued( Pharmacist change per medication history (E-cancel not sent)) naproxen sodium (ALEVE ORAL) Take 1 Tablet by mouth 2 times daily if needed. As needed 024 Discontinued( Pharmacist change per medication history (E-cancel not sent)) Active Problems Problem Noted Date Diagnosed Date COPD (chronic obstructive pulmonary disease) CAD (coronary artery disease) 04/19/2024 Overview (04/19/2024): S/p PCI to CFX 2003 Hypertension 04/19/2024 Hyperlipidemia 04/19/2024 Increased intraocular pressure 04/19/2024 Anxiety 04/19/2024 S/P colectomy 04/19/2024 Overview (04/19/2024): 09/2023 at [place] for h/o sigmoid diverticulitis with intra-abdominal abscess, c diff colitis. Followed with Dr. Idris BAEZ, off vancomycin taper ~01/2024 Spinal stenosis 04/19/2024 Penile pain 10/21/2015 Encounters Date Type Department Care Team Description 04/19/2024 12:29 PM CDT Anesthesia Event [facility] [address] [place] [address] Yamil Tinsley MD 04/19/2024 11:45 AM CDT - 04/19/2024 2:56 PM CDT Surgery [facility] [address] [place] [address] Magalie Palumbo MD Decompression - Lateral recess Levels: L1 to: L4 04/19/2024 9:02 AM CDT - 04/21/2024 4:27 PM CDT Hospital Encounter [facility] [address] [place] [address] Magalie Palumbo MD Spinal stenosis of lumbar region with neurogenic claudication (Primary Dx); Chronic obstructive pulmonary disease, unspecified COPD type (HC) Discharge Disposition: Home Self Care 04/18/2024 Travel 04/13/2024 8:30 AM CDT Ancillary Procedure [facility] [address] [place] [address] from Last 3 Months Social History Tobacco Use Types Packs/Day Years Used Date Smoking Tobacco: Every Day Cigarettes Smokeless Tobacco: Never Tobacco Cessation:Ready to Q uit: Not Asked; Counseling Given: Not Answered Comments:1 ppd per day per 04/03/24 H&P Alcohol Use Standard Drinks/Week Comments No 0 (1 standard drink = 0.6 oz pur e alcohol) sober since 1990 Social Connections Answer Date Recorded Frequency of [...] Sign Reading Time Taken Comments Blood Pressure 164/92 04/21/2024 9:18 AM CDT Pulse 75 04/21/2024 9:18 AM CDT Temperature 36.6 ??C (97.8 ??F) 04/21/2024 9:18 AM CD T Respiratory Rate 18 04/21/2024 11:23 AM CDT Oxygen Saturation 94% 04/21/2024 11:23 AM CDT Inhaled Oxygen Concentration - - Weight 68.9 kg (152 lb) 04/19/2024 9:30 AM CDT Height 170.2 cm (5' 7) 04/19/2024 9:30 AM CDT Body Mass Index 23.81 04/19/2024 9:30 AM CDT Plan of Treatment Health Maintenance Due Date Last Done Comments Pneumococcal series for age 65+ (1 of 2 - PCV) 1950 Tdap 1955 Depression screening for age 12+ 1956 Tetanus booster 1964 Zoster (shingles) series for age 50+ (1 of 2) 1994 Medicare Wellness for age 65+ 2009 BMI (ht and wt on same day) for age 18+ 10/20/2016 10/21/2015 RSV vaccine for adults or (1 - 1-dose 75+ series) 2019 COVID-19 vaccine series ( season) 2024 05/07/2023, 04/20/2022, 01/01/2022, Additional history exists Influenza for age 65+ 03/26/2024 Procedures Procedure Name Priority Date/Time Associated Diagnosis Comments HEMOGLOBIN Today 04/21/2024 11:29 AM CDT CREATININE Early AM 04/20/2024 6:36 AM CDT POTASSIUM Early AM 04/20/2024 6:36 AM CDT SODIUM Early AM 04/20/2024 6:36 AM CDT XR SPINE 1 VIEW PORTABLE Routine 04/19/2024 1:05 PM CDT ENDOTRACHEAL TUBE Routine 04/19/2024 12: 50 PM CDT ENDOTRACHEAL TUBE Routine 04/19/2024 12: 50 PM CDT LAMINECTOMY DECOMPRESSION SPINE LEVEL 03 Class E Urgent 04/19/2024 12:11 PM CDT Stenosis, 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 Case Notes DEBBIE DE JESUS, OLD STYLE ARMBOARDS, as GLUCOSE METER Timed 04/19/2024 9:51 AM CDT SCAN-CARDIAC STRIP 04/19/2024 12 :00 AM CDT SCAN CORRESP-EKG RESULTS 04/14/2024 1:08 PM CDT NM CARDIAC MPI STRESS TEST Routine 04/13/2024 1:37 PM CDT Arteriosclerosis of coronary artery bypass graft from Last 3 Months Results * (ABNORMAL) Hemoglobin TODAY (04/21/2024 11:29 AM CDT) HEMOGLOBIN 12.4(L) 13.5 - 17.5 g/dL 04/21/2024 11:41 AM CDT [facility] MCV 93 80 - 100 fL 04/21/2024 11:41 AM CDT [facility] Blood BLOOD SPECIMEN / Unknown Venipuncture / Unknown 04/21/2024 11:29 AM CDT 04/21/2024 11:35 AM CDT Raulito Gudino MD HEMATOLOGY Performing Organization Address City/[facility]/ZIP Co de Phone Number [facility] [address] [place] [address], * SODIUM (04/20/2024 6:36 AM CDT) SODIUM 137 136 - 145 mmol/L 04/20/2024 7:42 AM CDT [facility] Blood BLOOD SPECIMEN / Unknown Venipuncture / Unknown 04/20/2024 6:36 AM CDT 04/20/2024 7:05 AM CDT Maritza Gregg MD CHEMISTRY Performing Organization Address [facility] Co de Phone Number [facility] [address] [place] [address], [place] * POTASSIUM (04/20/2024 6:36 AM CDT) POTASSIUM 4.0 3.5 - 5.1 mmol/L 04/20/2024 7:42 AM CDT [facility] Blood BLOOD SPECIMEN / Unknown Venipuncture / Unknown 04/20/2024 6:36 AM CDT 04/20/2024 7:05 AM CDT Maritza Gregg MD CHEMISTRY Performing Organization Address City/[facility] Co de Phone Number [facility] [address] [place] [address], [place] * (ABNORMAL) CREATININE (04/20/2024 6:36 AM CDT) eGFR 88(L) >90 mL/min/1.7 3m2 04/20/2024 7:42 AM CDT [facility] Comment:As of 2021, eG FR is calculated by the CKD-EPI creatinine equation without race adjustment. ??eGFR can be influenced by muscle mass, exercise, and diet. ??The reported eGFR is an estimation only and is only applicable if the renal function is stable. CREATININE 0.85 0.70 - 1.20 mg/dL 04/20/2024 7:42 AM CDT [facility] Blood BLOOD SPECIMEN / Unknown Venipuncture / Unknown 04/20/2024 6:36 AM CDT 04/20/2024 7:05 AM CDT Maritza Gregg MD CHEMISTRY [facility] [address] [place] [address], * XR SPINE 1 VIEW PORTABLE (04/19/2024 1:05 PM CDT) Anatomical Region Laterality Modality Spine, CERVICAL SPINE, THORACIC SPINE, LUMBAR SP INE Digital Radiography 04/19/2024 2:59 PM CDT Narrative 04/19/2024 2:59 PM CDT For Patients: ??As a result of the Cures Act, medical imaging exams and procedure reports are released immediately into your electronic medical record. ??You may view this report before your referring provider. ??If you have questions, please contact your health care provider. Indication: Spine surgery Technique: A single portable cross-table lateral x-ray of the lumbar spine is obtained in surgery at 1251 hours. Comparison: None Findings: The surgical probe tip is directed over the spinous process of L3, and the probe is directed towards the posterior aspect of the L3-4 disc space. Impression: Intraoperative localization of the L3 level. Dictated by Sanju Mcdaniel MD @ Apr 19 2024 ??2:59PM (Electronically Signed) Neuroradiologist [email or web address] Procedure Note Sanju Mcdaniel MD - 04/19/2024 For Patients: As a result of the Cures Act, medical imagingexams and procedure reports are released immediately into your electronicmedical record. You may view this report before your referring provider.If you have questions, please contact your health care provider. Indication: Spine surgery Technique: A single portable cross-table lateral x-ray of the lumbar spine isobtained in surgery at 1251 hours. Comparison: None Findings: The surgical probe tip is directed over the spinous process of L3, and theprobe is directed towards the posterior aspect of the L3-4 disc space. Impression: Intraoperative localization of the L3 level. Dictated by Sanju Mcdaniel MD @ Apr 19 2024 2:59PM (Electronically Signed) Neuroradiologist [email or web address] Magalie Palumbo MD GENERAL IMAGING * HCHG TUBE PR1, HCHG STYLET PR1 (04/19/2024 12:50 PM CDT) Narrative Patsy German CRNA - 04/19/2024 12:50 PM CDT Patsy German CRNA ? 04/19/2024 12:50 PM Procedure: ETT Patient location during procedure: OR ETT Properties Mask Ventilation: easy and oral airway Final Technique: direct laryngoscopy Type: straight Location: oral Cuffed: yes Tube Size: 7.5 mm Stylet: yes Laryngoscope Blade: Mac Blade Size: 4 Cormack-Lehane Grade View: 1 Insertion Attempts: 1 Placement Verification: auscultation, end tidal CO2 and symmetrical chest wall movement Assessment: pharynx clear, atraumatic and dentition unchanged Secured at: 22 Measured From: lips Difficulty: 0 (not difficult) Yamil Tinsley MD ANESTHESIA PX NOT E ORDERABLES * GLUCOSE METER (04/19/2024 9:51 AM CDT) [facility] GLUCOSE METER 89 65 - 100 mg/dL 04/19/2024 9:51 AM CDT [facility] Blood BLOOD SPECIMEN / Unknown 04/19/2024 9:51 AM CDT 04/19/2024 9:51 AM CDT Magalie Palumbo MD CHEMISTRY [facility] [employer] [facility] [address] [place] [address], * SCAN-CARDIAC STRIP (04/19/2024 12:00 AM CDT) Narrative 04/19/2024 12:00 AM CDT Ordered by an unspecified provider. Other Clinical Staff OTHER * SCAN CORRESP-EKG RESULTS (04/14/2024 1:08 PM CDT) Narrative 04/14/2024 1:08 PM CDT Ordered by an unspecified provider. Other Clinical Staff OTHER * NM CARDIAC MPI STRESS TEST (04/13/2024 1:37 PM CDT) Anatomical Region Laterality Modality HEART Ultrasound 04/13/2024 9:00 AM CDT Narrative 04/13/2024 2:26 PM CDT ? Toll -free: [phone] ?[employer] ? MYOCARDIAL PERFUSION IMAGING REPORT REST/STRESS SINGLE ISOTOPE GATED SPECT IMAGING Patient Name: ?? MATTHEW WU ? Gender: ? M ? Height: ? 67 in Accession #: ?[id number] ?Weight: ? 158 lb Study Date: ? 04/13/2024 9:00:26 AM ? BSA: ?1.83 m? ? ? : ?1945 79 years ? BMI: ?24.75 kg/m? ? ? Ord. Prov.: ? MARCO A MELLO ?Monitoring Prov.: Maryan Wagoner Performing [facility] Clinical History: ? No symptoms. Known coronary artery disease. Cardiac Risk Factors: Tobacco use and hypercholesterolemia. Cardiac History: ?PCI. Beta aundrea/calcium channel aundrea/nitrate taken today: No. Caffeine/methylxanthine taken within 12 hrs: ?Unknown. Chest pain/discomfort at baseline: ?No. IMPRESSION 1. Myocardial perfusion was normal. 2. Left ventricular cavity size was normal (resting EDV 115 ml). 3. Overall left ventricular systolic function was normal without wall motion abnormalities. The post stress LVEF was calculated to be 62 %. 4. See separate report for EKG intrepretation. 5. Compared to prior study of June 25, 2004, there is no significant change. STRESS MPI PROCEDURE The patient was studied utilizing a same day rest/stress protocol. Myocardial perfusion imaging was performed at rest, 35 minutes following the intravenous injection of 8.2 mCi of 99mTc sestamibi. 30 seconds after the 15 second IV regadenoson injection, the patient was injected via IV with 29.6 mCi of 99mTc sestamibi. Gated post-stress tomographic imaging was performed 45 minutes after stress. After image acquisition was completed, data was reconstructed in short, horizontal long and vertical long axis views and tomographic slices were generated. - Pharmacologic stress testing was performed with an IV regadenoson dose of 0.4 mg. - No low level exercise was performed. - Resting heart rate was 56 bpm, peak heart rate was 91 bpm. - Resting blood pressure was 159 mmHg/74 mmHg; peak blood pressure was 147 mmHg/71 mmHg. - Patient did not develop significant symptoms. FINDINGS Imaging - The overall quality of the study was excellent with mild soft tissue attenuation on rest and stress studies. Computerized motion correction was not applied. - SPECT perfusion images were normal without evidence of ischemia or infarction. - Computer processed gated imaging revealed normal left ventricular size with a calculated LVEF of 62 %. (Lab normals: LVEF >50%, LV Size <150 ml). - There was normal post-stress myocardial thickening and wall motion. - No right ventricular abnormalities were identified. - There was no evidence of abnormal lung or extracardiac activity. - Risk/extent of ischemia per ACC Noninvasive Risk Stratification Guideline: LOW RISK. This study was interpreted and electronically signed by Raulito Hubbard MD on 04/13/2024 2:26:23 PM. ??Final ?? Procedure Note Raulito Hubbard MD - 04/13/2024 Toll -free: [phone] [employer] MYOCARDIAL PERFUSION IMAGING REPORT REST/STRESS SINGLE ISOTOPE GATED SPECT IMAGING Patient Name: MATTHEW WU Gender: Jonah Height: 67 in Weight: 158 lb Study Date: 04/13/2024 9:00:26 AM BSA: 1.83 m? ? ? : 1945 79 years BMI: 24.75kg/m? ? ? Ord. Prov.: MARCO A MELLO Monitoring Prov.: Maryan Wagoner Performing Site [facility] Clinical History: No symptoms. Known coronary artery disease. Cardiac Risk Factors: Tobacco use and hypercholesterolemia. Cardiac History: PCI. Beta aundrea/calcium channel aundrea/nitrate taken today: No. Caffeine/methylxanthine taken within 12 hrs: Unknown. Chest pain/discomfort at baseline: No. IMPRESSION 1. Myocardial perfusion was normal. 2. Left ventricular cavity size was normal (resting EDV 115 ml). 3. Overall left ventricular systolic function was normal without wallmotion abnormalities. The post stress LVEF was calculated to be 62 %. 4. See separate report for EKG intrepretation. 5. Compared to prior study of June 25, 2004, there is no significantchange. STRESS MPI PROCEDURE The patient was studied utilizing a same day rest/stress protocol.Myocardial perfusion imaging was performed at rest, 35 minutes followingthe intravenous injection of 8.2 mCi of 99mTc sestamibi. 30 seconds afterthe 15 second IV regadenoson injection, the patient was injected via IVwith 29.6 mCi of 99mTc sestamibi. Gated post-stress tomographic imagingwas performed 45 minutes after stress. After image acquisition wascompleted, data was reconstructed in short, horizontal long and verticallong axis views and tomographic slices were generated. - Pharmacologic stress testing was performed with an IV regadenoson doseof 0.4 mg. - No low level exercise was performed. - Resting heart rate was 56 bpm, peak heart rate was 91 bpm. - Resting blood pressure was 159 mmHg/74 mmHg; peak blood pressure lnj313 mmHg/71 mmHg. - Patient did not develop significant symptoms. FINDINGS Imaging - The overall quality of the study was excellent with mild soft tissue attenuation on rest and stress studies. Computerized motion correction wasnot applied. - SPECT perfusion images were normal without evidence of ischemia orinfarction. - Computer processed gated imaging revealed normal left ventricular sizewith a calculated LVEF of 62 %. (Lab normals: LVEF >50%, LV Size <150 ml). - There was normal post-stress myocardial thickening and wall motion. - No right ventricular abnormalities were identified. - There was no evidence of abnormal lung or extracardiac activity. - Risk/extent of ischemia per ACC Noninvasive Risk StratificationGuideline: LOW RISK. This study was interpreted and electronically signed by Opal Ambrose 04/13/2024 2:26:23 PM. Final Marco A Mello MD NM from Last 3 Months Advance Directives * Full Code (Latest Code Status on File) Date Activated Date Inactivated Comments 04/19/2024 5:27 PM 04/21/2024 6:32 PM Question Answer Comments Code Status Discussion: Unable to Assess Preferences, Provider to review later Care Teams Director Style Relationship Specialty Start Date End Date Marco A Mello MD [address] [place] [address] PCP - General Family Practice 03/18/23
--- OUTSIDE RECORDS SUMMARY | 2024-04-23 14:57 | XMS_ITS | Referral Summary ---
Author Organization [facility] Address [address] [place] [address] Care Team Providers Care Telecine Operator Name Role Phone Juan Pablo Buckley MD Primary Care Provider [phone] Allergies No known active allergies Medications Medication [...] LAB - BLOOD ORDERABL ES RH LABORATORY [facility] [address] Lab (1st floor, no room number) [place] [address], [facility] from Last 3 Months or Most Recently Relevant to Health Maintenance Advance Directives For more information, please contact: [phone] * Full Code (Latest Code Status on [...] patie nt/ legal decision maker Care Teams Telecine Operator Relationship Specialty Start Date End Date Juan Pablo Buckley MD PCP - General Family Medicine 10/20/23
--- OUTSIDE RECORDS SUMMARY | 2024-04-23 14:57 | XMS_ITS | Encounter Summary ---
Author Organization [facility] Address [address] [place] [address] Care Team Providers Care Code And Test Clerk Name Role Phone Juan Pablo Buckley MD Primary Care Provider [phone] Encounter Details Date Type Department Care Team (Late st Contact Info) Description 11/19/2023 Orders Only [facility] [address] [place] [id number] Galen Moffett PA-C [facility] [address] [place] [id number] Fatigue (Primary Dx) Social History Tobacco Use [...] fatigue documented in this encounter Care Teams Code And Test Clerk Relationship Specialty Start Date End Date Juan Pablo Buckley MD PCP - General Family Medicine 10/20/23 documented as of this encounter
[2024-04-23 15:36] VITALS: BP 148/71; PULSE 88; RESP 12; TEMP 36.8; O2SAT 96; BMI 24.3
--- NOTE | 2024-04-23 16:14 | ED_ITS ---
HPI - General Adult General Chief complaint: Post Op Complication Stated complaint: post-op concerns Time Seen by Provider: 04/23/24 16:00 History of Present Illness HPI narrative: Patient is 79 year white male had a 2 level lumbar decompression on Wednesday at [facility] with Dr. Makeda epps. He was in short-stay recovery for a couple days then came home. He is does not sure he is presenting today unsure when to route move his dressing and if he should exercise or not. He is feeling well. He has had no leg pain or fevers or chills. He has reviewed his literature he got from the surgical visit and does not know that information. Related Data Home Medications ?Medication ?Instructions ?Recorded ?Confirmed latanoprost 0.005 % eye drops 1 drp ophthalmic (eye) QDAY 08/05/22 04/03/24 multivitamin (Multiple Vitamins 1 tab PO QDAY 08/05/22 04/03/24 tablet) cholecalciferol (vitamin D3) 125 125 mcg PO QDAY 10/06/23 04/03/24 mcg (5,000 unit) capsule Previous Rx's ?Medication ?Instructions ?Recorded lisinopril 20 mg tablet 20 mg PO DAILY #90 tabs 04/27/23 nitroglycerin 0.4 mg sublingual 0.4 mg sublingual Q5-15M PRN chest 12/27/23 tablet pain #25 tabs simvastatin 20 mg tablet 20 mg PO QPM #180 tabs 02/08/24 alprazolam 0.5 mg tablet 0.5 mg PO BID PRN anxiety #30 tabs 04/07/24 Allergies Allergy/AdvReac Type Severity Reaction Status Date / Time No Known Allergies Allergy Unknown Unknown Verified 04/03/24 08:27 Review of Systems Status of ROS: Reports: 6 or more systems reviewed and unremarkable except as noted in History and below [facility] Medical History C. difficile colitis ?A04.72 - Enterocolitis due to Clostridium difficile, not specified as recurrent (ICD-10) Health care directive on file ?Z78.9 - Other specified health status (ICD-10) History of tinnitus (09/18/09) ?Z86.69 - Personal history of other diseases of the nervous system and sense organs (ICD-10) Surgical History S/P anal fissurectomy ?Z98.890 - Other specified postprocedural states (ICD-10) ?Z87.19 - Personal history of other diseases of the digestive system (ICD-10) Status post coronary artery stent placement ?Z95.5 - Presence of coronary angioplasty implant and graft (ICD-10) Status post cataract extraction ?Z98.49 - Cataract extraction status, unspecified eye (ICD-10) History of tonsillectomy and adenoidectomy (03/07/13) ?Z90.89 - Acquired absence of other organs (ICD-10) History of rhinoplasty (03/07/13) ?Z98.890 - Other specified postprocedural states (ICD-10) Social History Smoking Status: Current every day smoker What tobacco products do you use: cigarettes Smoking packs per day: 2 Smoking cigarettes per day: 40.0 Years smoked: 65 Smoking pack-years: 130.00 Do you use any of these nicotine containing products: None Second hand tobacco smoke exposure: No How often do you have a drink containing alcohol: never AUDIT-C Alcohol total score: 0 Non-prescribed substance use: denies use Little interest or pleasure in doing things: several days Feeling down, depressed, or hopeless: several days service: Yes Exam Narrative: Exam Narrative: Objective: Patient's vital signs are within normal limits he is afebrile he is slightly systolic hypertension at 1:48 a.m. His wound is clean dry he has got Steri-Strips on there is no erythema or cellulitis, they been on for 5 days as mention He has got a sq dressing on the left side of his wound that was removed that is intact and there does appear to be any findings there. No cellulitis. Const: Vital Signs, click to edit/add: Vital Signs - 24 hr 04/23/24 15:36 Temperature 98.2 F Pulse Rate [Pulse Oximeter] 88 Respiratory Rate 12 Blood Pressure [Ri ght Upper Arm] 148/71 H Pulse Oximetry 96 Oxygen Delivery Me thod Room Air Course Vital Signs Vital signs: Initial Vital Signs Temperature 98.2 F 04/23/24 15:36 Temperature Source Temporal Artery Scan 04/23/24 15:36 Pulse Rate 88 04/23/24 15:36 Pulse Rhythm Regular 04/23/24 15:36 Respiratory Rate 12 04/23/24 15:36 Blood Pressure 148/71 H 04/23/24 15:36 Blood Pressure Mean 96 04/23/24 15:36 Blood Pressure Position Sitting 04/23/24 15:36 Pulse Oximetry 96 04/23/24 15:36 Oxygen Delivery Method Room Air 04/23/24 15:36 Vital Signs Temperature 98.2 F 04/23/24 15:36 Pulse Rate 88 04/23/24 15:36 Respiratory Rate 12 04/23/24 15:36 Blood Pressure 148/71 H 04/23/24 15:36 Pulse Oximetry 96 04/23/24 15:36 Oxygen Delivery Method Room Air 04/23/24 15:36 Temperature 98.2 F 04/23/24 15:36 Pulse Rate 88 04/23/24 15:36 Respiratory Rate 12 04/23/24 15:36 Blood Pressure 148/71 H 04/23/24 15:36 Pulse Oximetry 96 04/23/24 15:36 Oxygen Delivery Method Room Air 04/23/24 15:36 Medical Decision Making MDM Narrative Medical decision making narrative: Postop wound check, at this point the patient should leave the Steri-Strips on, consult with Dr. Diamond freeman office regarding when he can shower and bathe, and usually these are left on to come off for the next 5-7 days. He can also check with the office regarding exercise. He can return as needed. Discharge Plan Discharge Clinical Impression: Encounter for post surgical wound check Patient Disposition: Home w/ Parent or Adult Condition: Stable Additional Instructions: Check with the surgeon's office regarding exercise and when you can shower bathe, and then when to remove the Steri-Strips. Return as needed. Activity Level: Light activity Discharge Diet: Regular Prescriptions: No Action cholecalciferol (vitamin D3) 125 mcg (5,000 unit) capsule 125 mcg PO QDAY multivitamin [Multiple Vitamins] Tablet 1 tab PO QDAY latanoprost 0.005 % drops 1 drp ophthalmic (eye) QDAY lisinopril 20 mg tablet 20 mg PO DAILY Qty: 90 3RF nitroglycerin 0.4 mg tablet, sublingual 0.4 mg sublingual Q5-15M PRN (Reason: chest pain) Qty: 25 1RF Rx Instructions: PRN CHEST PAIN/ MAX 3 DOSES simvastatin 20 mg tablet 20 mg PO QPM Qty: 180 1RF alprazolam 0.5 mg tablet 0.5 mg PO BID PRN (Reason: anxiety) Qty: 30 0RF Follow Up/Referrals: Marco A Buckley MD [Primary Care Provider] - Stand Alone Forms: [employer] Info Instructions
--- OUTSIDE RECORDS SUMMARY | 2024-04-23 16:22 | XMS_ITS | Clinical Summary ---
Author Organization [facility] Sil[facility] bansal Address [address] [place] [address] Phone Care Team Providers Care Outpatient Clerk Name Role Phone Unavailable Primary Care [...] mg by mouth Taper called in to [facility] pharmacy in [place] 125 mg qid x 4 weeks 125 [...] Description 02/09/2024 11:00 AM CDT Office Visit [employer] [place] [id number] [facility] [address] [place] [address] Sybil Steinberg MD Clostridium difficile colitis (Primary [...] 1951 Influenza Vaccine (#1) 2024 [place] [address]
--- OUTSIDE RECORDS SUMMARY | 2024-04-23 16:23 | XMS_ITS | Clinical Summary ---
Author Organization [place] [facility] Address [address] [place] [address] Care Team Providers Care Armoring Machine Operator Name Role Phone Juan Pablo Buckley MD Primary Care Provider [phone] Allergies No known active allergies Medications Medication [...] Basic metabolic panel (10/25/2023 7:49 AM CDT) [facility] Sodium 140 135 - [...] LAB - BLOOD ORDERABL ES RH LABORATORY [facility] [address] [facility] (1st floor, no room number) [place] [address] from Last 3 Months or Most Recently Relevant to Health Maintenance Advance Directives For more information, please contact: [phone] * Full Code (Latest Code Status on [...] deidre nt/ legal decision maker Care Teams Armoring Machine Operator Relationship Specialty Start Date End Date Juan Pablo Buckley MD PCP - General Family Medicine 10/20/23
--- OUTSIDE RECORDS SUMMARY | 2024-04-23 16:23 | XMS_ITS | Continuity of Care Document ---
Author Organization [facility] Address [address] [place] [address] Phone Care Team Providers Care Fine Patcher Name Role Phone Theodore Valladares Unavailable Unavailable [...] Copied on Encounter Ramesh/KOSTAS Amaya, [address], [place], [id number], [place] tel:[phone] [facility] No Information Willy Jaimes. [address] [address], [place], [id number] , [place]. tel:[phone] Referring Provider: Juan Pablo Amaya, [address], [address]. tel:[phone] [facility], [address], [place], [id number], [place] tel:[phone] [facility] No Information Mar- 4 Mehbod Amir. [facility] [place], [address] [place] [address] [address], [facility] [place], [id number] , [place]. tel:[phone] Referring Provider: Juan Pablo Amaya, [address], [facility]. tel:[phone] Office/Outpat ient Visit,Est, Mod [facility], [address], [place], [id number], [place] tel:[phone] [facility] Spinal stenosis, lumbar region with neurogenic claudication 4 Mehbod Amir. [facility], [address] [place] [address] [address], [place], [place], [id number] , [place]. tel:[phone] Referring Provider: Juan Pablo Amaya, [address], [address]. tel:[phone] Office/Outpat ient Visit,Est, Mod [facility], [address], [place], [id number], [place] tel:[phone] [facility] Spinal stenosis, lumbar region with neurogenic claudication 3 Mehbod Amir. [facility], [address] [place] [address] [address], [place], [place], [id number] , [place]. tel:[phone] Referring Provider: Juan Pablo Amaya, [address], [address]. tel:[phone] Office/Outpat ient Visit,New, Mod [facility], [address], [place], [id number], [place] tel:[phone] [facility] Low back painSpinal stenosis, lumbar region with neurogenic claudication 1 Kenzie Leary. [facility], [address] [place] [address], [address], [place], [place], [id number] , [place]. tel:[phone] Referring Provider: Juan Pablo Amaya, [facility] [address] [place] [address], [address]. tel:[phone] Family History Family Member Type Diagnosis Age At Onset No Information Payers Payer name Insurance type Covered republican ID Anne brian(s) [employer] Medicare [facility] 2021 CI [id number] Social History Type Description Quantity Date Captured [...]
--- OUTSIDE RECORDS SUMMARY | 2024-04-23 16:23 | XMS_ITS | Encounter Summary ---
Author Organization [facility] Address [address] [place] [address] Care Team Providers Care Technician Chemical Cleaning Name Role Phone Juan Pablo Buckley MD Primary Care Provider [phone] Encounter Details Date Type Department Care Team (Late st Contact Info) Description 11/19/2023 Orders Only [facility] [address] [place] [address] Galen Moffett PA-C [facility] [address] [place] [id number] Fatigue (Primary Dx) Social History Tobacco Use [...] fatigue documented in this encounter Care Teams Technician Chemical Cleaning Relationship Specialty Start Date End Date Juan Pablo Buckley MD PCP - General Family Medicine 10/20/23 documented as of this encounter
--- OUTSIDE RECORDS SUMMARY | 2024-04-23 16:23 | XMS_ITS | Clinical Summary ---
Author Organization [facility] Address [place], [place] [address] Care Team Providers Care Coating Mixer Name Role Phone Marco A Mello MD Primary Care Provider [phone] Allergies Active Allergy Reactions Criticality Noted Date [...] S/P colectomy 04/19/2024 Overview (04/19/2024): 09/2023 at [facility] for h/o sigmoid diverticulitis with intra-abdominal abscess, c diff colitis. Followed with Dr. Idris BAEZ, off vancomycin taper ~01/2024 Spinal stenosis 04/19/2024 Penile pain 10/21/2015 Encounters Date Type Department Care Team Description 04/19/2024 12:29 PM CDT Anesthesia Event [facility] [address] [place] [address] Yamil Tinsley MD 04/19/2024 11:45 AM CDT - 04/19/2024 2:56 PM CDT Surgery [facility] [address] [place] [address] Magalie Palumbo MD Decompression - Lateral recess Levels: L1 to: L4 04/19/2024 9:02 AM CDT - 04/21/2024 4:27 PM CDT Hospital Encounter [facility] [address] [place] [address] Magalie Palumbo MD Spinal stenosis of lumbar region with neurogenic claudication (Primary Dx); Chronic obstructive pulmonary disease, unspecified COPD type (HC) Discharge Disposition: Home Self Care 04/18/2024 Travel 04/13/2024 8:30 AM CDT Ancillary Procedure [facility] [address] [place] [address] from Last 3 Months Social History Tobacco [...] - 17.5 g/dL 04/21/2024 11:41 AM CDT [facility] MCV 93 80 - 100 fL 04/21/2024 11:41 AM CDT [facility] Blood BLOOD SPECIMEN / Unknown Venipuncture / Unknown 04/21/2024 11:29 AM CDT 04/21/2024 11:35 AM CDT Raulito Gudino MD HEMATOLOGY Performing Organization Address City/[facility]/ZIP Co de Phone Number [facility] [address] [place] [address], * SODIUM (04/20/2024 6:36 AM CDT) SODIUM 137 136 - 145 mmol/L 04/20/2024 7:42 AM CDT [facility] Blood BLOOD SPECIMEN / Unknown Venipuncture / Unknown 04/20/2024 6:36 AM CDT 04/20/2024 7:05 AM CDT Maritza Gregg MD CHEMISTRY Performing Organization Address [facility] Co de Phone Number [facility] [address] [place] [address], [place] * POTASSIUM (04/20/2024 6:36 AM CDT) POTASSIUM 4.0 3.5 - 5.1 mmol/L 04/20/2024 7:42 AM CDT [facility] Blood BLOOD SPECIMEN / Unknown Venipuncture / Unknown 04/20/2024 6:36 AM CDT 04/20/2024 7:05 AM CDT Maritza Gregg MD CHEMISTRY Performing Organization Address City/[facility] Co de Phone Number [facility] [address] [place] [address], [place] * (ABNORMAL) CREATININE (04/20/2024 6:36 AM CDT) eGFR 88(L) >90 mL/min/1.7 3m2 04/20/2024 7:42 AM CDT [facility] Comment:As of 2021, eG FR is calculated by the CKD-EPI creatinine equation without race adjustment. ??eGFR can be influenced by muscle mass, exercise, and diet. ??The reported eGFR is an estimation only and is only applicable if the renal function is stable. CREATININE 0.85 0.70 - 1.20 mg/dL 04/20/2024 7:42 AM CDT [facility] Blood BLOOD SPECIMEN / Unknown Venipuncture / Unknown 04/20/2024 6:36 AM CDT 04/20/2024 7:05 AM CDT Maritza Gregg MD CHEMISTRY [facility] [address] [place] [address], * XR SPINE 1 VIEW PORTABLE (04/19/2024 [...] * GLUCOSE METER (04/19/2024 9:51 AM CDT) [facility] GLUCOSE METER 89 65 - 100 mg/dL 04/19/2024 9:51 AM CDT [facility] Blood BLOOD SPECIMEN / Unknown 04/19/2024 9:51 AM CDT 04/19/2024 9:51 AM CDT Magalie Palumbo MD CHEMISTRY [facility] Big Cont[facility] [address] [place] [address], * SCAN-CARDIAC STRIP (04/19/2024 12:00 AM CDT) [...] 04/13/2024 2:26 PM CDT ? Toll -free: [phone] ?[facility] ? MYOCARDIAL PERFUSION IMAGING REPORT REST/STRESS SINGLE ISOTOPE GATED SPECT IMAGING Patient Name: ?? MATTHEW WU ? Gender: ? M ? Height: ? 67 in Accession #: ?[id number] ?Weight: ? 158 lb Study Date: ? 04/13/2024 9:00:26 AM ? BSA: ?1.83 m? ? ? : ?1945 79 years ? BMI: ?24.75 kg/m? ? ? Ord. Prov.: ? MARCO A MELLO ?Monitoring Prov.: Maryan Wagoner Performing [facility] Clinical History: ? No symptoms. Known coronary [...] Raulito Hubbard MD - 04/13/2024 Toll -free: [phone] [facility] MYOCARDIAL PERFUSION IMAGING REPORT REST/STRESS SINGLE ISOTOPE GATED SPECT IMAGING Patient Name: MATTHEW WU Gender: Jonah Height: 67 in Weight: 158 lb Study Date: 04/13/2024 9:00:26 AM BSA: 1.83 m? ? ? : 1945 79 years BMI: 24.75kg/m? ? ? Ord. Prov.: MARCO A MELLO Monitoring Prov.: Maryan Wagoner Performing Site [facility] Clinical History: No symptoms. [...] was 159 mmHg/74 mmHg; peak blood pressure mzt434 mmHg/71 mmHg. - Patient did not develop [...] Preferences, Provider to review later Care Teams Coating Mixer Relationship Specialty Start Date End Date Marco A Mello MD [address] [place] [address] PCP - General Family Practice 03/18/23
--- OUTSIDE RECORDS SUMMARY | 2024-04-23 16:23 | XMS_ITS | Continuity of Care Document ---
Author Organization [facility] Address [address] [facility] [address] [place] [address] Phone Care Team Providers Care Pump Press Operator Name Role Phone Emmanuel Marya ROMAN [...] by oral route 2 times every week [address] UNITS - Active Procedures Procedure Date Est [...] Copied on Encounter [facility], [address], [place], [place], [id number], [place] tel:[phone] [facility] No Information 3 [facility]. [address], [place], [address], [place]. tel:[phone] Referring Provider: Kaleb Lee, [address], [place], [address] . tel:[phone] Est Pt Eval 25 Min Malachi [facility], [address], [place], [place], [id number], [place] tel:[phone] [facility] back pain (chief complaint) Body mass index (BMI) 26.0-26.9, adultRadiculopathy, lumbar region 3 Emmanuel Marya. [address], [place], [address], [place]. tel:[phone] Referring Provider: Kaleb Lee, [address], [place], [address] . tel:[phone] Malachi [facility], [address], [place], [place], [id number], [place] tel:[phone] [facility] [place] No Information 3 Jesus Zapata. [address], [address], [place], [place], [id number], [place]. tel:[phone] Referring Provider: Benny Lee, [address], [place], [address] . tel:[phone] [facility], [address], [place], [address], [place] tel:[phone] [facility] back pain (chief complaint) Radiculopathy, lumbar regionRadiculopathy , lumbar region 3 [facility]. [address], [place], [address], [place]. tel:[phone] Referring Provider: Benny Lee, [address], [place], [address] . tel:[phone] [facility], [facility], [address], [place], [place], [address], [place] tel:[phone] [facility] No Information 3 Jesus Zapata. [address], [address], [place], [address], [place]. tel:[phone] Referring Provider: Benny Lee, [address], [place], [address] . tel:[phone] New Pt Eval [address] [facility], [facility], [address], [place], [place], [id number], [place] tel:[phone] [facility] back pain (chief complaint) Radiculopathy, lumbar regionVertebrogenic low back painBody mass index (BMI) 27.0-27.9, adult Fe- 3 Foster Florin. [address], [place], [address], [place]. tel:[phone] Referring Provider: Kaleb Lee, [address], [place], [address] . tel:[phone] Family History Family Member Type Diagnosis Age At Onset No Information Payers Payer name Insurance type Covered constitution party ID Anne brian(s) Jack[employer] Medicare PPO 16 [id number] Social History Type Description Quantity Date Captured [...]
--- OUTSIDE RECORDS SUMMARY | 2024-04-23 16:23 | XMS_ITS | Encounter Summary ---
Author Organization [facility] Address [address] [place] [address]. [place] [address] Care Team Providers Care Drama Teacher Name Role Phone No Ref-Primary, Physician Primary Care Provider Juan Pablo Buckley MD Primary Care Provider [phone] Encounter Details Date Type Department Care Team (Late st Contact Info) Description 08/17/2023 Orders Only [facility] [address] [place] [address] Carlyn Barba MD [facility] [address] [address] Social History Tobacco Use Types Packs/Day Years [...] Out C-difficile 08/18/2023 08/18/2023 024 5:02 AM DYED YARN OPERATOR C-difficile 08/18/2023 08/18/2023 09/17/2023 11:3 9 PM DYED YARN OPERATOR documented as of this encounter Care Teams Drama Teacher Relationship Specialty Start Date End Date No Ref-Primary, Physician PCP - General 03/25/23 10/19/23 Juan Pablo Buckley MD PCP - General Family Medicine 10/20/23 documented as of this encounter
--- OUTSIDE RECORDS SUMMARY | 2024-04-23 16:23 | XMS_ITS | Referral Summary ---
Author Organization [facility] Address [address] [place] [address] Care Team Providers Care Sales Assistant Entertainment And Media Name Role Phone Juan Pablo Buckley MD Primary Care Provider [phone] Allergies No known active allergies Medications Medication [...] LAB - BLOOD ORDERABL ES RH LABORATORY [facility] [address] Lab (1st floor, no room number) [place] [address], [facility] from Last 3 Months or Most Recently Relevant to Health Maintenance Advance Directives For more information, please contact: [phone] * Full Code (Latest Code Status on [...] patie nt/ legal decision maker Care Teams Sales Assistant Entertainment And Media Relationship Specialty Start Date End Date Juan Pablo Buckley MD PCP - General Family Medicine 10/20/23
--- OUTSIDE RECORDS SUMMARY | 2024-04-23 16:23 | XMS_ITS | Encounter Summary ---
Author Organization [facility] Address [address] [place] [address]. [place] [address] Care Team Providers Care Digital Service Engineer Name Role Phone No Ref-Primary, Physician Primary Care Provider Juan Pablo Buckley MD Primary Care Provider [phone] Encounter Details Date Type Department Care Team (Late st Contact Info) Description 08/18/2023 Orders Only [facility] [address] [place] [address] Carlyn Barba MD [facility] [address] [id number] C. difficile diarrhea (Primary Dx) Social History [...] Out C-difficile 08/18/2023 08/18/2023 024 5:02 AM KILN DOOR REPAIRER C-difficile 08/18/2023 08/18/2023 09/17/2023 11:3 9 PM KILN DOOR REPAIRER documented as of this encounter Care Teams Digital Service Engineer Relationship Specialty Start Date End Date No Ref-Primary, Physician PCP - General 03/25/23 10/19/23 Juan Pablo Buckley MD PCP - General Family Medicine 10/20/23 documented as of this encounter
--- OUTSIDE RECORDS SUMMARY | 2024-04-23 16:23 | XMS_ITS | Continuity of Care Document ---
Author Organization [facility] Address [address] [place] [address] Phone Care Team Providers Care Director Hematology Name Role Phone Theodore Valladares Unavailable Unavailable [...] Copied on Encounter Ramesh/KOSTAS Amaya, [address], [place], [id number], [place] tel:[phone] [facility] No Information Willy Jaimes. [address] [address], [place], [id number] , [place]. tel:[phone] Referring Provider: Juan Pablo Amaya, [address], [address]. tel:[phone] [facility], [address], [place], [id number], [place] tel:[phone] [facility] No Information Mar- 4 Mehbod Amir. [facility], [address] [place] [address] [address], [facility] [place], [place], [id number] , [place]. tel:[phone] Referring Provider: Juan Pablo Amaya, [address], [facility]. tel:[phone] Office/Outpat ient Visit,Est, Mod [facility], [address], [place], [id number], [place] tel:[phone] [facility] Spinal stenosis, lumbar region with neurogenic claudication 4 Mehbod Amir. [facility], [address] [place] [address] [address], [place], [place], [id number] , [place]. tel:[phone] Referring Provider: Juan Pablo Amaya, [address], [address]. tel:[phone] Office/Outpat ient Visit,Est, Mod [facility], [address], [place], [id number], [place] tel:[phone] [facility] Spinal stenosis, lumbar region with neurogenic claudication 3 Mehbod Amir. [facility], [address] [place] [address] [address], [place], [place], [id number] , [place]. tel:[phone] Referring Provider: Juan Pablo Amaya, [address], [address]. tel:[phone] Office/Outpat ient Visit,New, Mod [facility], [address], [place], [id number], [place] tel:[phone] [facility] [place] Low back painSpinal stenosis, lumbar region with neurogenic claudication 1 Kenzie Leary. [facility], [address] [place] [address], [address], [place], [place], [address] , [place]. tel:[phone] Referring Provider: Juan Pablo Amaya, [facility] [address] [place] [address], [address]. tel:[phone] Family History Family Member Type Diagnosis Age At Onset No Information Payers Payer name Insurance type Covered constitution party ID Anne brian(s) [employer] Medicare [facility] 2021 CI [id number] Social History Type Description Quantity Date Captured [...]
--- OUTSIDE RECORDS SUMMARY | 2024-04-23 16:23 | XMS_ITS | Encounter Summary ---
Author Organization [facility] Address [facility] [address] Care Team Providers Care Business Solutions Architect Name Role Phone No Ref-Primary, Physician Primary Care Provider Juan Pablo Buckley MD Primary Care Provider [phone] Encounter Details Date Type Department Care Team (Late st Contact Info) Description 08/12/2023 Hospital Encounter [facility] [address] [address] Carlyn Barba MD [facility] [address] [id number] Social History Tobacco Use Types Packs/Day Years [...] 07/16/2023 07/16/2023 08/15/2023 11:3 9 PM DIRECTOR SUPPLIER QUALITY Rule Out C-difficile 08/18/2023 08/18/2023 024 5:02 AM DIRECTOR SUPPLIER QUALITY C-difficile 08/18/2023 08/18/2023 09/17/2023 11:3 9 PM DIRECTOR SUPPLIER QUALITY documented as of this encounter Care Teams Business Solutions Architect Relationship Specialty Start Date End Date No Ref-Primary, Physician PCP - General 03/25/23 10/19/23 Juan Pablo Buckley MD PCP - General Family Medicine 10/20/23 documented as of this encounter
--- OUTSIDE RECORDS SUMMARY | 2024-04-23 16:23 | XMS_ITS | Continuity of Care Document ---
Author Organization [facility] Address [address] [facility] [address] [place] [address] Phone Care Team Providers Care Director Client Name Role Phone Emmanuel Marya ROMAN Unavailable [...] by oral route 2 times every week [id number] UNITS - Active Procedures Procedure Date Est [...] Providers Copied on Encounter [facility], [address], [place], [place], [id number], [place] tel:[phone] [facility] No Information 3 [facility]. [address], [place], [address], [place]. tel:[phone] Referring Provider: Kaleb Lee, [address], [place], [address] . tel:[phone] Est Pt Eval 25 Min Malachi [facility], [address], [place], [place], [address], [place] tel:[phone] [facility] back pain (chief complaint) Body mass index (BMI) 26.0-26.9, adultRadiculopathy, lumbar region 3 Emmanuel Marya. [address], [place], [address], [place]. tel:[phone] Referring Provider: Kaleb Lee, [address], [place], [address] . tel:[phone] Malachi [facility], [address], [place], [place], [address], [place] tel:[phone] [facility] No Information 3 Jesus Zapata. [address], [address], [place], [place], [id number], [place]. tel:[phone] Referring Provider: Benny Lee, [address], [place], [address] . tel:[phone] [facility], [address], [place], [address], [place] tel:[phone] [facility] back pain (chief complaint) Radiculopathy, lumbar regionRadiculopathy , lumbar region 3 [facility]. [address], [place], [address], [place]. tel:[phone] Referring Provider: Benny Lee, [address], [place], [address] . tel:[phone] [facility], [facility], [address], [place], [place], [address], [place] tel:[phone] [facility] No Information 3 Jesus Zapata. [address], [address], [place], [address], [place]. tel:[phone] Referring Provider: Benny Lee, [address], [place], [address] . tel:[phone] New Pt Eval 60 Min [facility], [facility], [address], [place], [place], [address], [place] tel:[phone] [facility] back pain (chief complaint) Radiculopathy, lumbar regionVertebrogenic low back painBody mass index (BMI) 27.0-27.9, adult Fe- 3 Foster Florin. [address], [place], [address], [place]. tel:[phone] Referring Provider: Kaleb Lee, [address], [place], [address] . tel:[phone] Family History Family Member Type Diagnosis Age At Onset No Information Payers Payer name Insurance type Covered green party ID Anne brian(s) Jacki Medicare PPO 16 [id number] Social History Type Description Quantity Date Captured [...]
--- OUTSIDE RECORDS SUMMARY | 2024-04-23 16:23 | XMS_ITS | Encounter Summary ---
Author Organization [facility] Address [address] [place] [address] Phone Care Team Providers Care Desktop Manager Name Role Phone Unavailable Primary Care Provider Unavailabl e Encounter Details Date Type Department Care Team (Late st Contact Info) Description 02/09/2024 11:00 AM CDT Office Visit [facility] [address] [place], [place] [address] Sybil Steinberg MD [address] [place] [address] Clostridium difficile colitis (Primary Dx) [...]
== END 2024-04-23 16:29 | disposition home or self-care (01) ==
LOC: ED 16:21
PROVIDERS: Emergency Provider Family Medicine; PCP Family Medicine
DX: Z48.89 Encounter for other specified surgical aftercare (principal)
CPT/HCPCS: 99282; 99283

== ENCOUNTER 2024-08-30 12:30 | Outpatient (RCR) | payer MEDICARE, SELFPAY ==
--- NOTE | 2024-08-14 15:03 | PT.OPEX ---
PT [facility] Outpatient Eval PT [facility] Outpatient Eval Start: 08/07/24 08:23 Freq: Status: Active Protocol: Document 08/14/24 08:38 CRP (Rec: 08/14/24 15:00 CRP [id number]) E-signed By Vincenzo Bui PT Physical Therapy Outpatient Evaluation Insurance Information Recert Due Date 11/12/24 Insurance Name Medicare B,RAFAELAare Medical Diagnosis Chronic LBP Lumbar Decompression surgery Referring MD Dr Aparicio Subjective Subjective Pt reports he does have some issues with LBP and pain into the back of the L hip. Pts biggest c.o is that he cannot walk well. Walks with cane most of the time. Does end up stooped forward and struggles staying up straight. Had lumbar decompression 03/2024 secondary to LBP. Back pain is mild at this time. Not having pains going into his legs. No numbness or tingling. No falls in recent past. Sleep is OK. Morning stiffness noted but not necessarily pain. Several times per week he is getting to [address] [place] [address] Colon Abscess surgery C-diff - 2 rounds prior to low back surgery Pain Comments 10/02 Current Work Status Retired Objective Other/Pertinent Objective Posture: Flattened lumbar spine. Slight knee flexion. Trunk ROM: flex WNL, Ext mod dec, R SB WNL, L SB min dec with crepitus, rotation mod dec bilat Hip ROM WNL SLR shows adverse neurodynamics bilat Sit to stand - WNL without arm use Feet together - eyes closed - shows balance deficit Functional Test Performed & Score Tinetti 19/28 Assessment Assessment/Impression Pt presents to the clinic with long standing issue of LBP, low back tightness, weakness and gait difficulties. Within the last two years the pt has had colon surgery, C-diff x 2 and lumbar spine decompression surgery. Pt demonstrates loss of lumbar spine ROM, poor lumbopelvic control, closed-chain weakness with LE functional strength and balance deficits which are related to increased risk for falls as noted on Tinetti score of 19/28. Skilled PT is necessary to incorporate ther ex, nm brody, manual therapy and pt education to improve functional strength and reduce risk for falling. Primary Functional Limitations Standing Walking Lifting Carrying Balance deficits with risk for falls Plan of Care Rehabilitation Potential Excellent Physical Therapy Goals 1. Pt will be independent with HEP in 8 weeks. 2. 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 Pt will score 23/28 or higher on Tinetti scored demonstrating a reduced risk for falls in 12 weeks. Coordination/Communication With Referral Source Treatment Plan/Direct Interventions Manual Therapy,Neuromuscular Re-ed,Self-Care/Home Management,Therapeutic Activities,Therapeutic Exercises Patient Will Be Discharged From Therapy Completion of LTG(s),Skills Plateau,Independent w/HEP, Independently Progressing Evaluation Billing Untimed Code Treatment Minutes 40 Complexity Moderate Certification Information Initial Certification Date 08/14/24 Ending Certification Date 11/12/24 Provider Signature Required Yes Provider Signature Shows Agreement With POC & Medical Necessity Physician NPI Number Write NPI# Here Physician Comment/Change : Physician Signature & Date Requested Please Sign/Date Here
== END 2024-12-28 23:59 | disposition home or self-care (01) ==
PROVIDERS: PCP Family Medicine; Visit Provider Family Medicine
DX: M54.50 Low back pain, unspecified (principal); G89.29 Other chronic pain; Z98.890 Other specified postprocedural states; Z51.89 Encounter for other specified aftercare
CPT/HCPCS: 97110; 97162

== ENCOUNTER 2024-11-03 17:46 | Emergency (ER) | payer MEDICARE, SELFPAY ==
--- OUTSIDE RECORDS SUMMARY | 2024-11-03 17:49 | XMS_ITS | Encounter Summary ---
Author Organization [facility] Address [address] [place] [address] Care Team Providers Care Brusher Machine Name Role Phone No Ref-Primary, Physician Primary Care Provider Juan Pablo Buckley MD Primary Care Provider [phone] Encounter Details Date Type Department Care Team (Late st Contact Info) Description 08/18/[address] [facility] [address] [place] [address] Carlyn Barba MD [facility] [address] [id number] C. difficile diarrhea (Primary Dx) Social History [...] Recorded Sex Assigned at Not on file Legal Sex Male 12:01 AM CDT Gender Identity Not on file Sexual Orientation [...] Out C-difficile 08/18/2023 08/18/2023 024 5:02 AM [facility] C-difficile 08/18/2023 08/18/2023 09/17/2023 11:3 9 PM [facility] documented as of this encounter Care Teams Brusher Machine Relationship Specialty Start Date End Date No Ref-Primary, Physician PCP - General 03/25/23 10/19/23 Juan Pablo Buckley MD PCP - General Family Medicine 10/20/23 documented as of this encounter
--- OUTSIDE RECORDS SUMMARY | 2024-11-03 17:49 | XMS_ITS | Encounter Summary ---
Author Organization [facility] Address [address] [place] [address] Care Team Providers Care Motocross Racer Name Role Phone Juan Pablo Buckley MD Primary Care Provider Encounter Details Date Type Department Care Team (Late st Contact Info) Description 11/19/2023 Orders Only [facility] [address] [place] [address] Galen Moffett PA-C [facility] [address] [place] [id number] Fatigue (Primary Dx) Social History Tobacco Use [...] fatigue documented in this encounter Care Teams Motocross Racer Relationship Specialty Start Date End Date Juan Pablo Buckley MD PCP - General Family Medicine 10/20/23 documented as of this encounter
--- OUTSIDE RECORDS SUMMARY | 2024-11-03 17:49 | XMS_ITS | Encounter Summary ---
Author Organization [facility] Address [address] [place] [address] Care Team Providers Care Epic Anesthesia Analyst Name Role Phone No Ref-Primary, Physician Primary Care Provider Juan Pablo Buckley MD Primary Care Provider Encounter Details Date Type Department Care Team (Late st Contact Info) Description 08/17/2023 Orders Only [facility] [address] [place] [address] Carlyn Barba MD [facility] [address] [address] Social History Tobacco Use Types Packs/Day Years [...] Out C-difficile 08/18/2023 08/18/2023 024 5:02 AM COUPON CLERK C-difficile 08/18/2023 08/18/2023 09/17/2023 11:3 9 PM COUPON CLERK documented as of this encounter Care Teams Epic Anesthesia Analyst Relationship Specialty Start Date End Date No Ref-Primary, Physician PCP - General 03/25/23 10/19/23 Juan Pablo Buckley MD PCP - General Family Medicine 10/20/23 documented as of this encounter
--- OUTSIDE RECORDS SUMMARY | 2024-11-03 17:49 | XMS_ITS | Clinical Summary ---
Author Organization [facility] Address [address] [place] [address] Phone Care Team Providers Care Explosive Ordnance Specialist Name Role Phone Unavailable Primary Care Provider Unavailabl e Allergies No known active allergies Medications acetaminophen (TYLENOL) 325 MG tablet Take 650 [...] mouth 1 (one) time each day Active cholecalciferol , vitamin D3, 5,000 Units tablet tablet Take 5,000 Units by mouth 1 (one) time each day Active ibuprofen (ADVIL) 200 MG tablet Take 600-800 mg by mouth every 6 (six) hours if needed for mild pain Active Lactobacillus-I nulin (CULTURELLE DIGESTIVE DAILY PO) Take 1 capsule by mouth 1 (one) time each day Active escitalopram (LEXAPRO) 10 MG tablet Take 10 mg by mouth 1 (one) time each day in the morning 4 Active vancomycin (VANCOCIN) 125 MG capsule Take 125 mg by mouth Taper called in to [facility] pharmacy in [place] 125 mg qid x 4 weeks 125 mg tid x 2 weeks 125 mg bid x 2 weeks 125 mg daily x 28 days No refills Active niacin 50 MG tablet Take 50 mg by mouth in the morning. Active oxyCODONE (ROXICODONE) 5 MG immediate release tablet Take 5 mg by mouth 4 Active Active Problems Problem Noted Date Diagnosed Date Diverticulitis 10/20/2023 Clostridium difficile colitis 08/18/2023 Pancolitis 08/18/2023 Clostridioides difficile infection 07/16/2023 Abdominal abscess 03/25/2023 Pain in penis 10/21/2015 Social History Tobacco Use Types Packs/Day [...] at Not on file Legal Sex Male 10:26 AM [facility] Gender Identity Not on file Sexual Orientation Not on file Plan of Treatment Health Maintenance Due Date Last Done Comments Pneumococcal PPSV23/PCV13 65 + Years / High and Highest Risk (1 of 5 - PCV) 1964 Influenza Vaccine (Season Ended) [address] [place] [id number] PM INTERFACED INSURANCE PM INTERFACED INSURANCE
--- OUTSIDE RECORDS SUMMARY | 2024-11-03 17:49 | XMS_ITS | Clinical Summary ---
Author Organization [facility] Address [address] [place] [address] Care Team Providers Care Family Centered Specialist Name Role Phone Marco A Buckley MD Primary Care Provider [phone] Allergies Active Allergy Reactions Criticality Noted Date Comments Unlisted Allergen (Include Detail In Comments) Other - Describe In Comment Field 04/18/2024 Seasonal and environmental allergies Medications ASPIRIN 325 MG ORAL TAB Take 325 mg by mouth once daily. ? 0 06/25/20 04 Active nitroglycerin (NITROSTAT) 0.[address] 0.4 mg under the tongue every 5 minutes if needed for Chest Pain. ? 0 06/25/20 04 Active MULTIVITAMIN ORAL TAB Take 1 Tablet by mouth once daily. ? 0 06/25/20 04 Active ALPRAZolam (XANAX) 0.5 mg tablet Take 0.5 mg by mouth 2 times daily if needed for Anxiety. 10/05/19 15 Active lisinopril (PRINIVIL; ZESTRIL) 20 mg tablet Take 20 mg by mouth once daily in the evening. 07/30/19 15 Active simvastatin (ZOCOR) 20 mg tablet Take 20 mg by mouth at bedtime. 07/05/20 14 Active latanoprost (XALATAN) 0.005 % ophthalmic solution Place 1 Drop into both eyes at bedtime. 2.5 mL 0 10/12/19 15 Active cholecalciferol, Vitamin D3, (Vitamin D-3) 5,000 [...] choice for severe pain.). 25 Tablet 4 10:08 AM CDT 04/20/20 24 Active ondansetron (ZOFRAN ODT) 4 mg disintegrating tabletIndications: Spinal stenosis of lumbar region with neurogenic claudication Place 1 Tablet (4 mg) on the tongue every 8 hours if needed for Nausea/Vomiting. 30 Tablet 4 10:08 AM CDT 04/20/20 24 Active polyethylene glycoL (MIRALAX) 17 gram/scoop powderIndications: Spinal stenosis of lumbar region with neurogenic claudication Take 1 scoop (17 g) mixed in liquid by mouth or nasogastric tube once daily if needed for Constipation. 510 g 4 10:08 AM CDT 04/20/20 24 Active methocarbamoL (ROBAXIN) 500 mg tabletIndications: Spinal stenosis of lumbar region with neurogenic claudication Take 1 Tablet (500 mg) by mouth every 6 hours if needed for Muscle Spasm 1st choice. 30 Tablet 4 10:08 AM CDT 04/20/20 24 Active WalkerIndications: Spinal stenosis of lumbar region with neurogenic claudication Walker with front wheels for home use for 3 months. 1 Each 04/20/20 24 Active albuterol HFA (PRO-AIR; VENTOLIN; PROVENTIL) 90 mcg/actuation inhalerIndications :Chronic obstructive pulmonary disease, unspecified COPD type (HC) Inhale 1 to 2 Puffs by mouth every 4 hours if needed for Shortness of Breath 1st choice or Wheezing 1st choice. 8.5 g 04/21/20 24 Active Active Problems Problem Noted Date Diagnosed Date COPD (chronic obstructive pulmonary disease) CAD (coronary artery disease) 04/19/2024 Overview (04/19/2024): S/p PCI to CFX 2004 Hypertension 04/19/2024 Hyperlipidemia 04/19/2024 Increased intraocular pressure 04/19/2024 Anxiety 04/19/2024 S/P colectomy 04/19/2024 Overview (04/19/2024): 09/2023 at [place] for h/o sigmoid diverticulitis with intra-abdominal abscess, c diff colitis. Followed with Dr. 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 Gender Identity Not on file Sexual Orientation Not on file Obstetrics History Last Filed Vital Signs Vital Sign Reading Time Taken Comments Blood Pressure 164/92 04/21/2024 9:18 AM CDT Pulse 75 04/21/2024 9:18 AM CDT Temperature 36.6 C (97.8 F) 04/21/2024 9:18 AM CDT Respiratory Rate 18 04/21/2024 11:23 AM CDT Oxygen Saturation 94% 04/21/2024 11:23 AM CDT Inhaled Oxygen Concentration - - Weight 68.9 kg (152 lb) 04/19/2024 9:30 AM CDT Height 170.2 cm (5' 7) 04/19/2024 9:30 AM CDT Body Mass Index 23.81 04/19/2024 9:30 AM CDT Plan of Treatment Health Maintenance Due Date Last Done Comments Tdap 1955 Depression screening for age 12+ 1956 Pneumococcal series for age 50+ (1 of 2 - PCV) 1963 Tetanus booster 1964 Zoster (shingles) series for age 50+ (1 of 2) 1994 Medicare Wellness for age 65+ 2009 BMI (ht and wt on same day) for age 18+ 10/20/2016 10/21/2015 RSV vaccine for adults or (1 - 1-dose 75+ series) 2019 COVID-19 vaccine series ( season) 2024 05/07/2023, 04/20/2022, 01/01/2022, Additional history exists Influenza Vaccine (Season Ended) 2025 [place] [id number] MEDICARE PART A HB ONLY [employer] MEDICARE ADVANTAGE Advance Directives * Full Code (Latest Code Status on File) Date Activated Date Inactivated Comments 04/19/2024 5:27 PM 04/21/2024 6:32 PM Question Answer Comments Code Status Discussion: Unable to Assess Preferences, Provider to review later Care Teams Family Centered Specialist Relationship Specialty Start Date End Date Marco A Buckley MD [address] [place] [address] PCP - General Family Practice 03/18/23
--- OUTSIDE RECORDS SUMMARY | 2024-11-03 17:49 | XMS_ITS | Clinical Summary ---
Author Organization [facility] Address [address] [place] [address] Care Team Providers Care Auto Rental Clerk Name Role Phone Juan Pablo Buckley MD Primary Care Provider [phone] Allergies No known active allergies Medications simvastatin (ZOCOR) 20 MG tablet Take 20 mg by mouth At Bedtime Active lisinopril (ZESTRIL) 20 MG tablet Take 20 mg by mouth at bedtime Active multivitamin w/minerals (MULTI-VITAMIN ) tablet Take 1 tablet by mouth daily Active acetaminophen (TYLENOL) 325 MG tabletIndicati ons:Intra-abdo jade abscess (H) Take 2 tablets (650 mg) by mouth every 6 hours as needed for mild pain Maximum of 4,000 mg of acetaminophen in any 24 hour period. 3 Active ALPRAZolam (XANAX) 0.5 MG tablet Take [...] times daily Active oxyCODONE (ROXICODONE) 5 MG tabletIndicati ons:S/P colectomy Take 1 tablet (5 mg) by mouth every 4 hours as needed for moderate pain 15 tablet Active Active Problems Problem Noted Date Diagnosed [...] 62 10/27/2023 7:23 AM CDT Temperature 36.7 C (98.1 F) 10/27/2023 7:23 AM CDT Respiratory Rate 16 10/27/2023 7:23 AM CDT [...] REVIEW OF HM ORDERS 1944 LIPID 1944 ZOSTER IMMUNIZATION (1 of 2) 1994 FALL RISK ASSESSMENT 2009 MEDICARE ANNUAL WELLNESS VISIT 2009 DTAP/TDAP/TD IMMUNIZATION (1 - Tdap) 07/03/2018 07/02/2018 RSV VACCINE (1 - 1-dose 75+ series) 2019 COVID-19 Vaccine ( season) 2024 05/07/2023, 04/20/2022, 01/01/2022, Additional history exists INFLUENZA VACCINE (#1) 2024 , 03/11/2022, 04/11/2021, Additional history exists PHQ-2 (once per calendar year) 2024 DIABETES SCREENING 10/24/2026 10/25/2023, 0 10/23/2023, 10/22/2023, Additional history exists Pneumococcal Vaccine: 50+ Years Completed 04/15/2018, 07/25/2014 HPV IMMUNIZATION Aged [...] CDT Adán Mcneal MD LAB - BLOOD ORDERABLES Final R esult [facility] [address] [facility] (1st floor, no room number) [place] [address] from Last 3 Months or Most Recently Relevant to Health Maintenance Insurance UCARE MEDICARE UC[employer] MEDICARE Advance Directives For more information, please contact: [phone] * Full Code (Latest Code Status on [...] patie nt/ legal decision maker Care Teams Auto Rental Clerk Relationship Specialty Start Date End Date Juan Pablo Buckley MD PCP - General Family Medicine 10/20/23
--- OUTSIDE RECORDS SUMMARY | 2024-11-03 17:49 | XMS_ITS | Continuity of Care Document ---
[facility] [address] [place] [address] Phone Care Team Providers Care Contact Manager Name Role Phone Emmanuel Marya ROMAN [...] by oral route 2 times every week [id number] UNITS - Active Procedures Procedure Date Est [...] Providers Copied on Encounter MONSERRAT Ly, [address], [place], [place], [id number], [place] tel:[phone] [facility] No Information [facility]. [address], [place], [place], [id number], [place]. tel:[phone] Referring Provider: Kaleb Lee, [address], [place], [address] . tel:[phone] Est Pt Eval 25 Min MONSERRAT Ly, [address], [place], [place], [id number], [place] tel:[phone] [facility] back pain (chief complaint) Body mass index (BMI) 26.0-26.9, adultRadiculopathy, lumbar region 3 Emmanuel Marya. [address], [place], [place], [id number], [place]. tel:[phone] Referring Provider: aKleb Lee, [address], [place], [address] . tel:[phone] Malachi [facility], [address], [place], [place], [id number], [place] tel:[phone] [facility] No Information 3 Jesus Zapata. [address], [address], [place], [place], [id number], [place]. tel:[phone] Referring Provider: Benny Lee, [address], [place], [address] . tel:[phone] [facility], [address], [place], [address], [place] tel:[phone] [facility] back pain (chief complaint) Radiculopathy, lumbar regionRadiculopathy , lumbar region 3 [facility]. [address], [place], [address], [place]. tel:[phone] Referring Provider: Benny Lee, [address], [place], [address] . tel:[phone] Malachi, [facility], [address], [place], [place], [id number], [place] tel:[phone] [facility] No Information 3 Jesus Zapata. [address], [address], [place], [address], [place]. tel:[phone] Referring Provider: Benny Lee, [address], [place], [address] . tel:[phone] New Pt Eval 60 Min [facility], [facility], [address], [place], [place], [id number], [place] tel:[phone] [facility] back pain (chief complaint) Radiculopathy, lumbar regionVertebrogenic low back painBody mass index (BMI) 27.0-27.9, adult Fe- 3 Foster Florin. [address], [place], [address], [place]. tel:[phone] Referring Provider: Kaleb Lee, [address], [place], [address] . tel:[phone] Family History Family Member Type Diagnosis Age At Onset No Information Payers Payer name Insurance type Covered democrat ID Anne brian(s) Jacki Medicare PPO [id number] Social History Type Description Quantity Date Captured [...]
[2024-11-03 17:53] VITALS: BP 162/76; PULSE 89; RESP 16; TEMP 36.7; O2SAT 97; BMI 25.1
--- NOTE | 2024-11-03 17:56 | ED.GENADULT ---
HPI - General Adult General Date Seen: 11/03/24 Chief complaint: Syncope/Fainted Stated complaint: fell Time Seen by Provider: 11/03/24 17:56 History of Present Illness HPI narrative: 79-year-old male with a complex past medical history including hypertension, hyperlipidemia, coronary artery disease, COPD, tobacco use, pulmonary fibrosis, asthma, anemia , anxiety, dysthymia., spinal stenosis (lumbar surgery at [facility] in 2023, but still having quite a lot of back pain and is frustrated with his surgeon), arthritis. He presents to the ER today by private car from home with his . History is obtained from the patient and his together. Neither the patient nor his seem to be completely reliable historians and sometimes they argue somewhat bitterly about details. Best history I can put together is below. He does have some chronic pain and trouble with his back but is generally trying to rehab. He tries to walk is best he can and can not probably walk about 1 block at a time. He usually uses a cane for balance but sometimes a walker and occasionally will walk without a cane or walker. He has been doing pretty well on that front for the past few weeks. Beginning last night he started to have some pain in his low back, very low in the lumbar spine on the posterior sacrum and more off to the right than in the midline. This pain does not radiate down his legs. Early This morning he was able to get out of bed to go to the bathroom to urinate and that went fine. Later this morning he had another episode where he walked to the bathroom and apparently needed to have diarrhea but in the bathroom his body or his legs became so weak that he just could not move. It does not sound like he had any focal paralysis of 1 side or 1 arm or 1 leg but just in general his body was weak. He had to lean over the bathroom counter to keep his balance. He was incontinent of soft mushy stool. Nonbloody. He called his for help. He was so weak that she had to a system in transferring from the bathroom and getting him cleaned up. He apparently moved to the couch and was resting there for awhile. Later on he was able to get off the couch but had a lot of trouble with weakness. His said he actually had to crawl across the house at 1 point. He was not really dizzy or vertiginous. He was not really presyncopal. No chest pain. No palpitations. He was just very weak. No headache. He had a couple more episodes when he was trying to walk at home where he lost his balance and actually fell sideways against the wall and had to hold himself up. He had another episode when he was in the kitchen where apparently got weak and he had leaned on the cabinet and then lower himself to the floor. His had been under the impression that he fainted, but the patient disagrees and says that he just got weak and had to lower himself to the floor. He did not black out. Finally this afternoon and his called a family friend and they came over to help him transfer and helped him come here to the ER. Related Data Home Medications ?Medication ?Instructions ?Recorded ?Confirmed multivitamin (Multiple Vitamins 1 tab PO QDAY 08/05/22 11/03/24 tablet) cholecalciferol (vitamin D3) 125 125 mcg PO QDAY 10/06/23 11/03/24 mcg (5,000 unit) capsule epinephrine 0.125 mg/actuation 1 puff inhalation Q6H PRN 08/29/24 08/29/24 aerosol inhaler (Primatene Mist) latanoprost 0.005 % eye drops 1 drp ophthalmic (eye) QDAY PRN 08/29/24 11/03/24 Previous Rx's ?Medication ?Instructions ?Recorded nitroglycerin 0.4 mg sublingual 0.4 mg sublingual Q5-15M PRN chest 12/27/23 tablet pain #25 tabs simvastatin 20 mg tablet 20 mg PO QPM #180 tabs 02/08/24 lisinopril 20 mg tablet 20 mg PO DAILY #90 tabs 07/17/24 bupropion HCl 150 mg 24 hr tablet, 150 mg PO QAM #30 tabs 08/29/24 extended release alprazolam 0.5 mg tablet 0.5 mg PO BID PRN anxiety #30 tabs 09/06/24 doxycycline monohydrate 100 mg 100 mg PO BID #14 caps 11/03/24 capsule Allergies Allergy/AdvReac Type Severity Reaction Status Date / Time No Known Allergies Allergy Unknown Unknown Verified 11/03/24 20:46 PFSH [facility] Medical History Marital stress ?Z63.0 - Problems in relationship with spouse or partner (ICD-10) Tobacco use (03/07/13) ?Z72.0 - Tobacco use (ICD-10) Osteoarthritis of left knee ?M17.12 - Unilateral primary osteoarthritis, left knee (ICD-10) Spinal stenosis ?M48.00 - Spinal stenosis, site unspecified (ICD-10) Hypertension (02/04/07) ?I10 - Essential (primary) hypertension (ICD-10) Hyperlipidemia (02/04/07) ?E78.5 - Hyperlipidemia, unspecified (ICD-10) Coronary artery disease (09/07/06) ?I25.10 - Atherosclerotic heart disease of [place] coronary artery without angina pectoris (ICD-10) Chronic obstructive pulmonary disease (03/07/13) ?J44.9 - Chronic obstructive pulmonary disease, unspecified (ICD-10) Pulmonary fibrosis ?J84.10 - Pulmonary fibrosis, unspecified (ICD-10) Back pain ?M54.9 - Dorsalgia, unspecified (ICD-10) Osteoarthritis of lumbar spine ?M47.816 - Spondylosis without myelopathy or radiculopathy, lumbar region (ICD-10) Anemia ?D64.9 - Anemia, unspecified (ICD-10) Vitamin D deficiency ?E55.9 - Vitamin D deficiency, unspecified (ICD-10) Anxiety ?F41.9 - Anxiety disorder, unspecified (ICD-10) Trigger thumb of both thumbs ?M65.311 - Trigger thumb, right thumb (ICD-10) ?M65.312 - Trigger thumb, left thumb (ICD-10) Degeneration of intervertebral disc of cervical region ?M50.30 - Other cervical disc degeneration, unspecified cervical region (ICD-10) Osteoarthritis of carpometacarpal joint of left thumb ?M18.12 - Unilateral primary osteoarthritis of first carpometacarpal joint, left hand (ICD-10) Osteoarthritis of carpometacarpal joint of right thumb ?M18.11 - Unilateral primary osteoarthritis of first carpometacarpal joint, right hand (ICD-10) Osteoarthritis of right knee ?M17.11 - Unilateral primary osteoarthritis, right knee (ICD-10) Acquired pes planus of both feet ?M21.41 - Flat foot [pes planus] (acquired), right foot (ICD-10) ?M21.42 - Flat foot [pes planus] (acquired), left foot (ICD-10) Elevated IOP ?H40.059 - Ocular hypertension, unspecified eye (ICD-10) Rosacea (01/01/10) ?L71.9 - Rosacea, unspecified (ICD-10) Erectile dysfunction ?N52.9 - Male erectile dysfunction, unspecified (ICD-10) Asthma (02/04/07) ?J45.909 - Unspecified asthma, uncomplicated (ICD-10) C. difficile colitis ?A04.72 - Enterocolitis due to Clostridium difficile, not specified as recurrent (ICD-10) Health care directive on file ?Z78.9 - Other specified health status (ICD-10) History of tinnitus (09/18/09) ?Z86.69 - Personal history of other diseases of the nervous system and sense organs (ICD-10) Surgical History Status post lumbar spine surgery for decompression of spinal cord ?Z98.890 - Other specified postprocedural states (ICD-10) S/P anal fissurectomy ?Z98.890 - Other specified postprocedural states (ICD-10) ?Z87.19 - Personal history of other diseases of the digestive system (ICD-10) Status post coronary artery stent placement ?Z95.5 - Presence of coronary angioplasty implant and graft (ICD-10) Status post cataract extraction ?Z98.49 - Cataract extraction status, unspecified eye (ICD-10) History of tonsillectomy and adenoidectomy (03/07/13) ?Z90.89 - Acquired absence of other organs (ICD-10) History of rhinoplasty (03/07/13) ?Z98.890 - Other specified postprocedural states (ICD-10) Social History Smoking Status: Current every day smoker What tobacco products do you use: cigarettes Smoking packs per day: 0.5 Smoking cigarettes per day: 10.0 Years smoked: 65 Smoking pack-years: 32.50 Do you use any of these nicotine containing products: None Second hand tobacco smoke exposure: No How often do you have a drink containing alcohol: never How often do you have six or more drinks on one occasion: Never AUDIT-C Alcohol total score: 0 Non-prescribed substance use: denies use service: Yes Exam Narrative: Exam Narrative: Constitutional: Appears well-developed and well-nourished. Alert. Conversant but somewhat 10 gentle and disorganized historian. Seems a little confused.. Non toxic. HENT: Head: Atraumatic. No depressed skull fracture, [place], Jo's sign, or hemotympanum. Face normal. TMs normal Nose: Nose normal. Mouth/Throat: Oral mucosa is clear and moist. no trismus. Pharynx normal. Tonsils symmetric. No tonsillar enlargement, erythema, or exudate. Eyes: Conjunctivae normal. EOM normal. Pupils equal, round, and reactive to light. No scleral icterus. Neck: Normal range of motion. Neck supple. No tracheal deviation present. Cardiovascular: Normal rate, regular rhythm. No gallop. No friction rub. No murmur heard. Symmetric radial artery pulses Pulmonary/Chest: Effort normal. No stridor. No respiratory distress. No wheezes. No rales. No rhonchi . L>R lower rib tenderness. Abdominal: Soft. Bowel sounds normal. No distension. No mass. No tenderness. No rebound. No guarding. Musculoskeletal: Healed midline lumbar incision. He is tender over the lower lumbar spine/posterior sacrum. Pelvis is stable RUE: Normal range of motion. No tenderness. No deformity LUE: Normal range of motion. No tenderness. No deformity RLE: Normal range of motion. No edema. No tenderness. No deformity LLE: Normal range of motion. No edema. No tenderness. No deformity Neurological: Alert and oriented to person, place, and time. Normal strength. CN II-VII intact. No sensory deficit. GCS eye subscore is 4. GCS verbal subscore is 5. GCS motor subscore is 6. Normal coordination Sensory: Normal light touch sensation bilaterally on the anteromedial thigh (L3), medial malleolus (L4), dorsal first web space (L5), lateral malleolus (S1). Strength: He is able to sit up for posterior exam unassisted. 5/5 strength hip flexors (L3) on the right and left 5/5 strength in the quadriceps (L4) on the right and left 5/5 strength in the tibialis anterior 5/5 strength in the EHL (L5) on the right and left 5/5 strength in the gastrocnemius (S1) on the right and left 5/5 strength in the hamstring on the right and left DTRs: symmetric in the patella (2/4) Negative straight leg raise bilaterally. Skin: Skin is warm and dry. No rash noted. No pallor. Normal capillary refill. Psychiatric: Normal mood. At times gets somewhat feisty 1 arguing with his . Const: Vital Signs, click to edit/add: Vital Signs - 24 hr 11/03/24 17:53 11/03/24 18:53 11/03/24 19:30 Temperature 98.1 F Pulse Rate [Pulse Oximeter] 89 81 Pulse Rate [orthos tatic lying] 78 Pulse Rate [orthos tatic sitting] 86 Pulse Rate [orthos tatic standing] 93 Respiratory Rate 16 16 Blood Pressure [Ri ght Upper Arm] 162/76 H 131/66 Blood Pressure [or thostatic lying] 153/68 H Blood Pressure [or thostatic sitting] 142/77 H Blood Pressure [or thostatic standing ] 131/61 Pulse Oximetry 97 96 Oxygen Delivery Me thod Room Air Room Air 11/03/24 20:00 11/03/24 21:04 Temperature Pulse Rate [Pulse Oximeter] 78 80 Pulse Rate [orthos tatic lying] Pulse Rate [orthos tatic sitting] Pulse Rate [orthos tatic standing] Respiratory Rate 16 16 Blood Pressure [Ri ght Upper Arm] 130/72 160/82 H Blood Pressure [or thostatic lying] Blood Pressure [or thostatic sitting] Blood Pressure [or thostatic standing ] Pulse Oximetry 95 95 Oxygen Delivery Me thod Room Air Room Air Course Vital Signs Vital signs: Initial Vital Signs Temperature 98.1 F 11/03/24 17:53 Temperature Source Temporal Artery Scan 11/03/24 17:53 Pulse Rate 89 11/03/24 17:53 Respiratory Rate 16 11/03/24 17:53 Blood Pressure 162/76 H 11/03/24 17:53 Blood Pressure Mean 104 11/03/24 17:53 Blood Pressure Position Semi-Fowlers 11/03/24 17:53 Pulse Oximetry 97 11/03/24 17:53 Oxygen Delivery Method Room Air 11/03/24 17:53 Vital Signs Temperature 98.1 F 11/03/24 17:53 Pulse Rate 89 11/03/24 17:53 Respiratory Rate 16 11/03/24 17:53 Blood Pressure 162/76 H 11/03/24 17:53 Pulse Oximetry 97 11/03/24 17:53 Oxygen Delivery Method Room Air 11/03/24 17:53 Temperature 98.1 F 11/03/24 17:53 Pulse Rate 80 11/03/24 21:04 Respiratory Rate 16 11/03/24 21:04 Blood Pressure 160/82 H 11/03/24 21:04 Pulse Oximetry 95 11/03/24 21:04 Oxygen Delivery Method Room Air 11/03/24 21:04 Medications Administered Medications: Discontinued Medications Generic Name Dose Route Start Last Admin Trade Name Freq PRN Reason Stop Dose Admin Doxycycline Hyclate 100 mg 11/03/24 21:49 11/03/24 21:54 Doxycycline Hyclate 100 Mg PO 11/03/24 21:50 100 mg ONCE ONE Administration Sodium Chloride 1,000 mls @ 1,000 mls/hr 11/03/24 18:30 11/03/24 19:24 0.9 % Sodium Chloride 1000 Ml IV 11/03/24 19:29 1,000 mls/hr .Q1H TALAT Administration Ceftriaxone Sodium 1 gm/ 100 mls @ 200 mls/hr 11/03/24 21:23 11/03/24 21:45 Sodium Chloride IVPB 11/03/24 21:24 200 mls/hr ONCE ONE Administration Medical Decision Making MDM Narrative Medical decision making narrative: 79-year-old male presenting to the ER today with his with concern for trouble with his balance, unsteadiness, generalized weakness, leading to a couple of episodes where he had trouble walking and falls at home today. He also has chronic ongoing trouble with his low back and has had a bit of an upper check in his low back pain today but no specific back injury that he knows of. Differential is broad. In terms of trauma CT scan of his head, C-spine, L-spine and chest/abdomen/pelvis show no sign of any acute traumatic injury. Although he does have some chronic low back pain he is not having any new focal neurologic deficits in his leg nor is a having any new true bowel or bladder dysfunction to suggest cauda equina. L-spine CT negative for any acute injury. At this point I do not think he needs transfer to an alternative Hospital for emergent L-spine MRI. History varies between the patient and his whether not he actually fainted in lost consciousness or just fell because of weakness. compliance monitor shows sinus rhythm an EKG confirms sinus rhythm with no arrhythmia or other ischemia. Troponin is negative. He is not having any chest pain. No murmurs to suggest valvular disease. At this point I do not think he needs further workup for cardiac causes of dizziness or falls. He did have 1 episode of loose soft mushy stool this morning but has not had any further diarrhea. He does have a distant history of C diff but no recent C diff or recent antibiotics. He also has abdominal pain. CT scan is obtained and is essentially normal. I ordered a stool C diff test but the patient was not having any further diarrhea and therefore not able to provide a stool sample tonight. At this point I have low clinical suspicions for C diff given the absence of ongoing diarrhea. Electrolytes, kidney function, blood sugar are normal. No clear cause for falls or unsteadiness from a metabolic standpoint[place] [address]. Prompting workup for possible infections although he is not febrile. Urinalysis negative for UTI. Initially denied any cough but reported chronic COPD. Chest CT scan did reveal evidence for right middle lobe infiltrate. When I asked him directly about cough he does note that he has had a cough that started this morning which he thought was just due to all the excitement and has got a little bit worse here in the ER. The oxygen saturations are normal. He is not having any respiratory distress. Pulse and blood pressure are stable. No evidence for septic shock as result of his pneumonia. Patient overall is feeling much better after IV fluids here in the ER. I had a detailed discussion with the patient and his about the results of his workup and the finding of pneumonia. We discussed possible admission. He is firmly requesting discharge and says he feels much better. Will start him on antibiotics for community-acquired pneumonia-Rocephin and doxycycline with 1st doses being given here in the ER. Will then discharge home with a 7 day course of doxycycline 1 mg p.o. did b.i.d.. He is not having any wheezing or bronchospasm to require nebulizers or steroids at this point Precautions for return to the ER reviewed. Need for follow-up reviewed. Lab Data Labs: Lab Results 11/03/24 11/03/24 Range/Units 18:35 20:06 WBC 16.99 H (4.50-11.00) K/uL RBC 4.44 (4.30-5.90) m/uL Hgb 14.1 (13.5-17.5) gm/dL Hct 41.5 (37.0-53.0) % MCV 94 (80-100) fL MCH 32 (26-34) pg MCHC 34 (32-36) gm/dL RDW Coeff of Jose 13.6 (11.5-15.5) % Plt Count 257 (140-440) K/uL Neut % (Auto) 79.9 H (42.0-72.0) % Lymph % (Auto) 11.8 L (20-44) % [place] % (Auto) 7.9 (0.0-11.0) % Eos % (Auto) 0.1 (0.0-7.0) % Baso % (Auto) 0.1 (0.0-3.0) % Neut # (Auto) 13.60 H (1.7-7.0) K/uL Lymph # (Auto) 2.00 (0.90-2.90) K/uL [place] # (Auto) 1.30 H (0.00-0.90) K/UL Eos # (Auto) 0.00 (0.00-0.50) K/uL Baso # (Auto) 0.00 (0.00-0.30) K/uL Abs Immat Gran (auto) 0.00 (0.00-0.30) K/uL Imm/Tot Granulo (auto) 0.2 % VBG pH 7.387 (7.32-7.43) VBG pCO2 45 (40-50) mmHG VBG pO2 41.4 (25-47) mmHG VBG HCO3 27 (21-28) mmol/L Sodium 135 (135-149) mmol/L Potassium 3.6 (3.6-5.1) mmol/L Chloride 102 (96-114) mmol/L Carbon Dioxide 25 (20-32) mmol/L Anion Gap 8 (7-15) mEq/L BUN 26 (7-30) mg/dL Creatinine 0.8 (0.5-1.5) mg/dL Estimated Creat Clear 55.08 Estimated GFR 89 ml/min Glucose 113 (60-115) mg/dL Lactate 1.4 (0.5-1.9) mmol/L Calcium 9.7 (8.4-10.6) mg/dL Total Bilirubin 0.7 (0.1-1.5) mg/dL AST 192 H (12-35) U/L ALT 58 H (4-50) U/L Alkaline Phosphatase 128 (40-150) U/L Troponin I < 0.01 (0.01-0.04) ng/mL Total Protein 7.7 (6.0-8.3) g/dL Albumin 4.5 (3.3-5.0) g/dL Urine Color Yellow (Yellow) Urine Appearance Clear (Clear) Urine pH 6.0 (5.0-8.5) Ur Specific [place] 1.025 (1.000-1.030) Urine Protein 2+ A (Negative) Urine Glucose (UA) Negative (Negative) Urine Ketones Negative (Negative) Urine Blood 3+ A (Negative) Urine Nitrite Negative (Negative) Urine Bilirubin Negative (Negative) Urine Urobilinogen 0.2 (0.2-1.0) Ur Leukocyte Esterase Negative (Negative) Urine RBC 5-10 A (0-2) Urine WBC 0-2 (0-5) Ur Squamous Epith Cells Few (None-Few) Urine Bacteria Few A (None) SARS-CoV-2 (PCR) Negative SARS-CoV-2 (Negative) Influenza Type A (PCR) Negative PCR FLU A (Negative) Influenza Type B (PCR) Negative PCR FLU B (Negative) Imaging Data CT scan - head: Attestation: I have reviewed the pertinent imaging results. Radiologist's impression: Impression: Stable age-related and chronic small-vessel disease changes of the brain without acute intracranial abnormality. CT C spine: Attestation: I have reviewed the pertinent imaging results. Radiologist's impression: Impression: Stable severe degenerative changes of the cervical spine from comparison exam without evidence of acute osseous abnormality. CT scan - abdomen: Attestation: I have reviewed the pertinent imaging results. Radiologist's impression: IMPRESSION: 1. No CT correlate for the patient`s symptoms seen. CT scan - chest: Attestation: I have reviewed the pertinent imaging results. My impression: It looks like there may be a right lower lobe/right middle lobe pneumonia. Awaiting radiology read. Radiologist's impression: Preliminary report IMPRESSIONS: 1. No CT evidence of acute pulmonary emboli seen. 2. Consolidation is seen in the base of the lateral right middle lobe with central cystic spaces measuring up to 2 cm. Clinical correlation is recommended to exclude pneumonia. CT L spine: Attestation: I have reviewed the pertinent imaging results. Radiologist's impression: IMPRESSION: 1. Normal alignment. No fractures. 2. Advanced lumbar spondylosis 3. At L1-2, [id number] narrowing of the spinal canal. 4. At L3-4, [id number] narrowing of the spinal canal. Mild narrowing of the right neural foramen 5. At L4-5, Mild narrowing of the right neural foramen ECG Data Interpretation: Normal sinus rhythm Rate: 85 MN: 160 QRS axis: Left axis deviation. ST segment/T wave: No ST segment elevation or depression. Nonspecific T-wave flattening in V1 and V2 and V3. QTc: Prolonged QT. 4 85 Discharge Plan Discharge Clinical Impression: Pneumonia, Generalized weakness, Falls Patient Disposition: Home, Self-Care Condition: Stable Instructions: Weakness (ED), Pneumonia (ED) Additional Instructions: Please continue on the antibiotics treat your pneumonia tomorrow. Take the antibiotic twice daily for 1 week. As we discussed, if you have any worsening trouble breathing, worsening cough, high fever, weakness, more falls, or any problems, please come back to the emergency department right away. Please recheck with your regular doctor for a recheck visit within 1 week Prescriptions: New doxycycline monohydrate 100 mg capsule 100 mg PO BID Qty: 14 0RF No Action cholecalciferol (vitamin D3) 125 mcg (5,000 unit) capsule 125 mcg PO QDAY multivitamin [Multiple Vitamins] Tablet 1 tab PO QDAY latanoprost 0.005 % drops 1 drp ophthalmic (eye) QDAY PRN Primatene Mist 0.125 mg/actuation HFA aerosol inhaler 1 puff inhalation Q6H PRN Rx Instructions: may repeat once after 1 minute bupropion HCl 150 mg tablet extended release 24 hr 150 mg PO QAM Qty: 30 5RF nitroglycerin 0.4 mg tablet, sublingual 0.4 mg sublingual Q5-15M PRN (Reason: chest pain) Qty: 25 1RF Rx Instructions: PRN CHEST PAIN/ MAX 3 DOSES simvastatin 20 mg tablet 20 mg PO QPM Qty: 180 1RF lisinopril 20 mg tablet 20 mg PO DAILY Qty: 90 3RF alprazolam 0.5 mg tablet 0.5 mg PO BID PRN (Reason: anxiety) Qty: 30 2RF Follow Up/Referrals: Marco A Buckley MD [Primary Care Provider] - Stand Alone Forms: peerTransfer Info Instructions
--- NOTE | 2024-11-03 18:27 | CRLHL7_ITS ---
For Patients: As a result of the Century Cures Act, medical imaging exams and procedure reports are released immediately into your electronic medical record. You may view this report before your referring provider. If you have questions, please contact your health care provider. Indication: Falls, weakness and confusion, left-sided chest pain Technique: Volumetric multidetector CT images of the head were obtained without the administration of low osmolar intravenous contrast. Comparison: CT head July 15, 2023 Findings: There is no intra-axial or extra-axial fluid collection. There is no mass effect or midline shift. There is again seen moderate global cortical atrophy with sulcal widening and ex vacuo dilatation of the lateral ventricles. There are chronic small vessel disease changes in the subcortical and periventricular white matter without lost foote-white differentiation. The orbits and their contents are grossly within normal limits. The bony calvarium is grossly intact. The paranasal sinuses are clear. The mastoid air cells are well aerated. Impression: Stable age-related and chronic small-vessel disease changes of the brain without acute intracranial abnormality. Please note that all CT scans at this facility use dose modulation, iterative reconstruction, and/or weight-based dosing when appropriate to reduce radiation dose to as low as reasonably achievable. Dictated by Yusuf Howard MD @ 11/03/2024 9:00:38 PM (Electronically Signed)
--- NOTE | 2024-11-03 18:27 | CRLHL7_ITS ---
For Patients: As a result of the Century Cures Act, medical imaging exams and procedure reports are released immediately into your electronic medical record. You may view this report before your referring provider. If you have questions, please contact your health care provider. INDICATION: Back pain. Trauma. Falls. Weakness. COMPARISON: 03/16/2024. TECHNIQUE: Noncontrast CT lumbar spine. FINDINGS: Normal vertebral body alignment. No acute fractures. No vertebral body loss of height. No spondylolisthesis. No fractures visualized lower ribs. No sacral fractures. Advanced lumbar spondylosis with multilevel disc degeneration and facet arthropathy. [id number]: Disc degeneration. Loss disc height. Vacuum disc. No spinal canal or neural foraminal narrowing. L1-2: Disc degeneration loss disc height. Vacuum disc. Diffuse disc bulge and endplate osteophytic ridging eccentric to left. Imed-nb-fyqprdlh narrowing of spinal canal. Mild narrowing of the left neural foramen. No narrowing of the right neural foramen. L2-3: Disc degeneration loss disc height. Vacuum disc. Mild narrowing of spinal canal. No neural foraminal narrowing. L3-4: Disc degeneration loss disc height. Vacuum disc. Hwku-ss-jrnwfsmy narrowing of spinal canal. Mild narrowing of the right neural foramen. No narrowing of left neural foramen. Mild facet arthropathy. L4-5: Disc degeneration. Loss disc height. No narrowing of spinal canal. Mild narrowing of the right neural foramen. No narrowing of left neural foramen. Moderate arthropathy. L5-S1: No narrowing of the spinal canal. No impingement of the traversing S1 nerve roots. No neural foraminal narrowing. Moderate arthropathy. Degenerative changes of the SI joints. Vascular calcifications. IMPRESSION: 1. Normal alignment. No fractures. 2. Advanced lumbar spondylosis 3. At L1-2, mriv-lg-kbslqsev narrowing of the spinal canal. 4. At L3-4, rucx-zn-ohyamxcw narrowing of the spinal canal. Mild narrowing of the right neural foramen 5. At L4-5, Mild narrowing of the right neural foramen Please note that all CT scans at this facility use dose modulation, iterative reconstruction, and/or weight-based dosing when appropriate to reduce radiation dose to as low as reasonably achievable. Dictated by Kaleb Matthews MD @ 11/03/2024 9:05:23 PM (Electronically Signed)
--- NOTE | 2024-11-03 18:28 | CRLHL7_ITS ---
For Patients: As a result of the Century Cures Act, medical imaging exams and procedure reports are released immediately into your electronic medical record. You may view this report before your referring provider. If you have questions, please contact your health care provider. INDICATION: Fall. Weakness. Confusion. Left-sided chest pain. TECHNIQUE: CT pulmonary angiogram with 95 cc of Isovue-370 given intravenously. FINDINGS: No pulmonary emboli. No aneurysmal dilatation of the thoracic aorta. Atherosclerotic vascular calcifications. Small mediastinal lymph nodes do not meet size criteria for adenopathy. No hilar adenopathy. No axillary adenopathy. The lungs show emphysema. Consolidation/airspace opacity in the lower portion of the right middle lobe. No pneumothorax. No focal abnormalities identified in the visualized portions of the liver, spleen, pancreas, and adrenal glands. 3.2 cm probable cyst extending off the superior pole the right kidney. Degenerative changes of the spine. IMPRESSION: 1. No pulmonary emboli. 2. Emphysema. 3. Consolidation/airspace opacity in the lower portion of the right middle lobe may represent a pneumonia. Recommend follow-up chest CT scan in 3 months to document resolution. Please note that all CT scans at this facility use dose modulation, iterative reconstruction, and/or weight-based dosing when appropriate to reduce radiation dose to as low as reasonably achievable. Dictated by Christiano Bonilla MD @ 11/06/2024 9:02:10 AM (Electronically Signed)
--- NOTE | 2024-11-03 18:28 | CRLHL7_ITS ---
For Patients: As a result of the Century Cures Act, medical imaging exams and procedure reports are released immediately into your electronic medical record. You may view this report before your referring provider. If you have questions, please contact your health care provider. INDICATION: Diarrhea, weakness, abdominal pain from a fall TECHNIQUE: CT Abdomen and pelvis with i.v. contrast. Coronal and sagittal reformats were obtained. CONTRAST: 95 mL Isovue 370 COMPARISON: 07/15/2023 FINDINGS: Liver: Unremarkable. Spleen: Unremarkable. Pancreas: Unremarkable. Gallbladder: Unremarkable. Kidney: There is a cyst in the upper pole of the right kidney measuring 3.8 cm. Adrenal: Unremarkable. Bowel: An anastomotic staple line is present in the mid sigmoid colon. The appendix is normal in appearance and size. Vascular: Moderate atherosclerotic calcifications of the abdominal aorta and its tributaries are present. Lymph: Unremarkable. Peritoneum: Unremarkable. No pneumoperitoneum is seen. No significant ascites is noted. Pelvis: Unremarkable. Soft tissue: Unremarkable. Bone: Lumbar spinal findings are described on separate report. IMPRESSION: 1. No CT correlate for the patient`s symptoms seen. Dictated by Suresh Murray MD @ 11/03/2024 9:01:44 PM Please note that all CT scans at this facility use dose modulation, iterative reconstruction, and/or weight-based dosing when appropriate to reduce radiation dose to as low as reasonably achievable. Dictated by: Suresh Murray MD @ 11/03/2024 21:01:54 (Electronically Signed)
--- NOTE | 2024-11-03 18:28 | CRLHL7_ITS ---
For Patients: As a result of the Cures Act, medical imaging exams and procedure reports are released immediately into your electronic medical record. You may view this report before your referring provider. If you have questions, please contact your health care provider. Indication: Falls, weakness and confusion, left-sided chest pain Technique: Volumetric multidetector CT images of the cervical spine were obtained without the administration of IV contrast. Comparison: CT cervical spine July 15, 2023 Findings: The cervical vertebral body heights are grossly maintained with minimal endplate Schmorl`s defects. Again seen is mild reversal of the normal cervical lordosis with anterolisthesis of C3 on C4 and C4 on C5. There is no displaced fracture or dislocation. There is moderate to severe degenerative disc disease with disc desiccation, height loss and marginal osteophyte formation. Severe facet arthrosis. Mild biapical pleural thickening is appreciated. Impression: Stable severe degenerative changes of the cervical spine from comparison exam without evidence of acute osseous abnormality. Please note that all CT scans at this facility use dose modulation, iterative reconstruction, and/or weight-based dosing when appropriate to reduce radiation dose to as low as reasonably achievable. Dictated by Yusuf Howard MD @ 11/03/2024 8:58:16 PM (Electronically Signed)
[2024-11-03 18:46] LABS: HCO3 VBG 27 mmol/L (21-28); Lactate* 1.4 mmol/L (0.5-1.9); PCO2 VBG 45 mmHG (40-50); PO2 VBG 41.4 mmHG (25-47); pH VBG 7.387 (7.32-7.43)
--- OUTSIDE RECORDS SUMMARY | 2024-11-03 18:47 | XMS_ITS | Encounter Summary ---
Author Organization [facility] Address [address] [place] [address] Care Team Providers Care Bond Broker Name Role Phone Juan Pablo Buckley MD Primary Care Provider [phone] Encounter Details Date Type Department Care Team (Late st Contact Info) Description 11/19/2023 Orders Only [facility] [address] [place] [address] Galen Moffett PA-C [facility] [address] [place] [id number] Fatigue (Primary Dx) Social History Tobacco Use [...] fatigue documented in this encounter Care Teams Bond Broker Relationship Specialty Start Date End Date Juan Pablo Buckley MD PCP - General Family Medicine 10/20/23 documented as of this encounter
--- OUTSIDE RECORDS SUMMARY | 2024-11-03 18:47 | XMS_ITS | Clinical Summary ---
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 Gender Identity Not on file Sexual Orientation [...] exists Influenza Vaccine (Season Ended) [address] [place] [phone] MEDICARE PART A HB ONLY [employer] MEDICARE ADVANTAGE Advance Directives * Full Code (Latest Code Status on File) Date Activated Date Inactivated Comments 04/19/2024 5:27 PM 04/21/2024 6:32 PM Question Answer Comments Code Status Discussion: Unable to Assess Preferences, Provider to review later Care Teams Telecommunications Field Engineer Relationship Specialty Start Date End Date Marco A Buckley MD [address] [place] [address] PCP - General Family Practice 03/18/23
--- OUTSIDE RECORDS SUMMARY | 2024-11-03 18:47 | XMS_ITS | Clinical Summary ---
Author Organization [facility] Address [address] [place] [address] Phone Care Team Providers Care Chain Pegger Name Role Phone Unavailable Primary Care Provider [...] mg by mouth Taper called in to [facility] pharmacy in [place] 125 mg qid x 4 weeks 125 [...] on file Legal Sex Male 10:26 AM [facility] Gender Identity Not on file Sexual Orientation Not on file Plan of Treatment Health Maintenance Due Date Last Done Comments Pneumococcal PPSV23/PCV13 65 + Years / High and Highest Risk (1 of 5 - PCV) 1964 Influenza Vaccine (Season Ended) [address] [place] [id number] PM INTERFACED INSURANCE PM INTERFACED INSURANCE
--- OUTSIDE RECORDS SUMMARY | 2024-11-03 18:47 | XMS_ITS | Clinical Summary ---
Author Organization [facility] Address [address] [place] [address] Care Team Providers Care Automatic Vulcanizing Lead Operator Name Role Phone Juan Pablo Buckley MD Primary Care Provider [phone] Allergies No known active allergies Medications simvastatin [...] BLOOD ORDERABLES Final R esult [facility] [address] [facility] (1st floor, no room number) [place] [address] from Last 3 Months or Most Recently Relevant to Health Maintenance Insurance UCARE MEDICARE UCARE MEDICARE Advance Directives For more information, please contact: [phone] * Full Code (Latest Code Status on [...] patie nt/ legal decision maker Care Teams Automatic Vulcanizing Lead Operator Relationship Specialty Start Date End Date Juan Pablo Buckley MD PCP - General Family Medicine 10/20/23
--- OUTSIDE RECORDS SUMMARY | 2024-11-03 18:48 | XMS_ITS | Encounter Summary ---
Author Organization [facility] Address [address] [place] [address] Care Team Providers Care K 9 Police Officer Name Role Phone No Ref-Primary, Physician Primary Care Provider Juan Pablo Buckley MD Primary Care Provider [phone] Encounter Details Date Type Department Care Team (Late st Contact Info) Description 08/18/2023 Orders Only [facility] [address] [place] [address] Carlyn Barba MD [facility] [address] [id number] C. 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
--- OUTSIDE RECORDS SUMMARY | 2024-11-03 18:48 | XMS_ITS | Encounter Summary ---
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
--- OUTSIDE RECORDS SUMMARY | 2024-11-03 18:48 | XMS_ITS | Continuity of Care Document ---
Author Organization [facility] Address [address] [place] [address] Phone Care Team Providers Care Factory Machine Computer Operator Name Role Phone Emmanuel Marya ROMAN [...] by oral route 2 times every week [id number] UNITS - Active Procedures Procedure Date Est [...] Providers Copied on Encounter MONSERRAT Ly, [address], [place], [place], [address], [place] tel:[phone] [facility] No Information [address] [facility]. [address], [place], [place], [id number], [place]. tel:[phone] Referring Provider: Kaleb Lee, [address], [place], [address] . tel:[phone] Est Pt Eval 25 Min MONSERRAT Ly, [address], [place], [place], [address], [place] tel:[phone] [facility] back pain (chief complaint) Body mass index (BMI) 26.0-26.9, adultRadiculopathy, lumbar region 3 Emmanuel Marya. [address], [place], [place], [address], [place]. tel:[phone] Referring Provider: Kaleb Lee, [address], [place], [address] . tel:[phone] [facility], [address], [place], [place], [address], [place] tel:[phone] [facility] No Information 3 Jesus Zapata. [address], [place], [place], [address], [place]. tel:[phone] Referring Provider: Benny Lee, [address], [place], [address] . tel:[phone] [facility], [address], [place], [address], [place] tel:[phone] [facility] back pain (chief complaint) Radiculopathy, lumbar regionRadiculopathy , lumbar region 3 [facility]. [address], [place], [place], [address], [place]. tel:[phone] Referring Provider: Benny Lee, [address], [place], [address] . tel:[phone] [facility], [facility], [address], [place], [place], [address], [place] tel:[phone] [facility] No Information 3 Jesus Zapata. [address], [address], [place], [place], [address], [place]. tel:[phone] Referring Provider: Benny Lee, [address], [place], [address] . tel:[phone] New Pt Eval [address] [facility], [facility], [address], [place], [place], [address], [place] tel:[phone] [facility] back pain (chief complaint) Radiculopathy, lumbar regionVertebrogenic low back painBody mass index (BMI) 27.0-27.9, adult Fe- 3 Foster [facility]. [address], [place], [address], [place]. tel:[phone] Referring Provider: Kaleb Lee, [address], [place], [address] . tel:[phone] Family History Family Member Type Diagnosis Age At Onset No Information Payers Payer name Insurance type Covered constitution party ID Anne brian(s) Jacki Medicare PPO 16 [id number] Social History Type Description Quantity Date Captured Comments Alcohol Use Details Unknown Caffeine Use Details Unknown Tobacco Use Status Smoking Status No Information Sex Male Chief Complaint And Reason For Visit No Information Reason For Referral Reason For Referral No Information Plan Of Treatment Date Type Action Status Goal Lifestyle education regardin g diet completed Goal Tobacco cessation counseling completed Goal Lifestyle [...]
[2024-11-03 18:49] LABS: Basophils Percent Auto 0.1 % (0.0-3.0); Eosinophils Percent Auto 0.1 % (0.0-7.0); Hematocrit 41.5 % (37.0-53.0); Hemoglobin* 14.1 gm/dL (13.5-17.5); Immature Granulocytes Pct Auto 0.2 %; Lymphocytes Percent Auto 11.8 % (20-44); Mean Corpuscular HGB Conc 34 gm/dL (32-36); Mean Corpuscular Hemoglobin 32 pg (26-34); Mean Corpuscular Volume 94 fL (80-100); Monocytes Percent Auto 7.9 % (0.0-11.0); Neutrophils Percent Auto 79.9 % (42.0-72.0); Platelet Count* 257 K/uL (140-440); RDW Coefficient of Variation % 13.6 % (11.5-15.5); Red Blood Count 4.44 m/uL (4.30-5.90); White Blood Count* 16.99 K/uL (4.50-11.00)
[2024-11-03 18:53] VITALS: BP 131/61; BP 142/77; BP 153/68; PULSE 78; PULSE 86; PULSE 93
[2024-11-03 18:56] LABS: Slide Review Reflex No
[2024-11-03 19:24] LABS: PCR FLU A Negative PCR FLU A (Negative); PCR FLU B Negative PCR FLU B (Negative); SARS PCR* Negative SARS-CoV-2 (Negative)
[2024-11-03] MEDS: 0.9 % SODIUM CHLORIDE 1000 ml 1,000 ML IV (19:24)
[2024-11-03 19:30] VITALS: BP 131/66; PULSE 81; RESP 16; O2SAT 96
[2024-11-03 19:33] LABS: Chloride* 102 mmol/L (96-114)
[2024-11-03 19:34] LABS: Albumin* 4.5 g/dL (3.3-5.0); Potassium* 3.6 mmol/L (3.6-5.1); Sodium* 135 mmol/L (135-149)
[2024-11-03 19:36] LABS: Alanine Aminotransferase* 58 U/L (4-50); Anion Gap 8 mEq/L (7-15); Aspartate Amino Transferase* 192 U/L (12-35); Blood Urea Nitrogen* 26 mg/dL (7-30); Carbon Dioxide* 25 mmol/L (20-32); Creatinine* 0.8 mg/dL (0.5-1.5); Est. Creatinine Clearance* 55.08; Estimated Glomerular Filt Rate 89 ml/min
[2024-11-03 19:37] LABS: Alkaline Phosphatase* 128 U/L (40-150); Bilirubin Total* 0.7 mg/dL (0.1-1.5); Calcium* 9.7 mg/dL (8.4-10.6); Glucose* 113 mg/dL (60-115); Total Protein* 7.7 g/dL (6.0-8.3)
[2024-11-03 19:54] LABS: Troponin I* < 0.01 ng/mL (0.01-0.04)
[2024-11-03 20:00] VITALS: BP 130/72; PULSE 78; RESP 16; O2SAT 95
[2024-11-03 20:15] LABS: Appearance Urine Clear (Clear); Bilirubin Urine Negative (Negative); Blood Urine 3+ (Negative); Color Urine Yellow (Yellow); Glucose Urine Negative (Negative); Ketones Urine Negative (Negative); Leukocyte Esterase Urine Negative (Negative); Nitrite Urine Negative (Negative); Protein Urine 2+ (Negative); Specific Gravity Urine 1.025 (1.000-1.030); Urobilinogen Urine 0.2 (0.2-1.0)
[2024-11-03 20:34] LABS: Bacteria Urine Few; Squamous Epithelial Cell Urine Few (None-Few); WBC Urine 0-2 (0-5)
[2024-11-03 21:04] VITALS: BP 160/82; PULSE 80; RESP 16; O2SAT 95
[2024-11-03] MEDS: cefTRIAXone 1 GM in 0.9 % SODIUM CHLORIDE Mini-bag 100 ML IVPB (21:45)
[2024-11-03] MEDS: DOXYCYCLINE HYCLATE 100 MG PO (21:54)
== END 2024-11-03 22:51 | disposition home or self-care (01) ==
PROVIDERS: Emergency Provider Emergency Medicine; PCP Family Medicine
DX: J18.9 Pneumonia, unspecified organism (principal); R53.1 Weakness; R03.0 Elevated blood-pressure reading, without diagnosis of hypertension; W19.XXXA Unspecified fall, initial encounter
CPT/HCPCS: 36415; 70450; 71275; 72125; 72131; 74177; 80053; 81001; 82803; 83605; 84484; 85025; 87040; 87086; 87493; 87631; 93005; 96365; 99284; 99285; A9270; J0696; J7030; Q9967

== ENCOUNTER 2024-11-23 12:25 | Inpatient (IN) | payer MEDICARE, SELFPAY ==
[2024-11-23 12:58] VITALS: BP 108/55; PULSE 85; RESP 16; TEMP 36.3; O2SAT 98; BMI 25.1
[2024-11-23 13:23] LABS: Basophils Percent Auto 0.1 % (0.0-3.0); Eosinophils Percent Auto 0.2 % (0.0-7.0); Hematocrit 39.8 % (37.0-53.0); Hemoglobin* 13.2 gm/dL (13.5-17.5); Immature Granulocytes Pct Auto 0.5 %; Lymphocytes Percent Auto 4.2 % (20-44); Mean Corpuscular HGB Conc 33 gm/dL (32-36); Mean Corpuscular Hemoglobin 32 pg (26-34); Mean Corpuscular Volume 95 fL (80-100); Monocytes Percent Auto 8.8 % (0.0-11.0); Neutrophils Percent Auto 86.2 % (42.0-72.0); Platelet Count* 310 K/uL (140-440); Red Blood Count 4.18 m/uL (4.30-5.90); White Blood Count* 21.18 K/uL (4.50-11.00)
--- NOTE | 2024-11-23 13:23 | CRLHL7_ITS ---
For Patients: As a result of the 21st Century Cures Act, medical imaging exams and procedure reports are released immediately into your electronic medical record. You may view this report before your referring provider. If you have questions, please contact your health care provider. INDICATION: Abdominal pain, diarrhea, history of C difficile colitis, rectal pain. COMPARISON: 11/03/2024, 08/31/2023 TECHNIQUE: CT of the abdomen and pelvis with intravenous contrast. Multiplanar axial, coronal, and sagittal reformats were reconstructed. Contrast: 79 mL Isovue 370. FINDINGS: Lung bases: Peripheral reticulation and borderline honeycombing again noted. No new consolidations. Liver: Normal. No mass. Gallbladder and bile ducts: Normal gallbladder. No bile duct dilation. Pancreas: Normal. Spleen: Normal. Adrenal glands: Normal. Kidneys: Normal renal size and position. Normal renal enhancement. There is a 2.7 x 3.7 centimeter right upper pole cyst. Small left lower pole parapelvic cyst and tiny left lower pole cortical cyst. Calcifications appear to be atherosclerotic and not renal calculi. No definitive collecting system calculi. No urinary tract dilation. Urinary bladder: Normal. Pelvis: No cyst or mass. Vessels: Heavy atherosclerosis. Ectasia of the infrarenal abdominal aorta with a maximum diameter of about 2.4 centimeters. Patent mesenteric arteries and veins. Bowel: There is mucosal hyperenhancement with submucosal edema that begins at the mid transverse colon and extends through the rectum. There is a sigmoid anastomotic suture line that is unremarkable. Rectal wall thickening and hyperemia is severe. The inflamed bowel has a normal caliber without dilatation. No pneumatosis. No perirectal abscess. No perianal abscess. The remainder of the bowel has a normal appearance without significant inflammation. Normal appendix. Mild proximal stool burden. Lymph nodes: No adenopathy. Peritoneum: No ascites. No free air. Abdominal wall: High-riding testicle in the left inguinal canal. No bowel containing hernia. Bones: No fractures. No focal worrisome bone lesions. IMPRESSION: Severe proctocolitis. No perforation or abscess. No findings specific to inflammatory bowel disease. No obstruction. There is atherosclerosis but there is not any substantial mesenteric arterial stenosis. Please note that all CT scans at this facility use dose modulation, iterative reconstruction, and/or weight-based dosing when appropriate to reduce radiation dose to as low as reasonably achievable. Dictated by Bozena Raymundo MD @ 11/23/2024 2:28:56 PM (Electronically Signed)
--- NOTE | 2024-11-23 13:27 | ED.GENADULT ---
HPI - General Adult General Chief complaint: Diarrhea Stated complaint: doesn't have much mobility on legs Time Seen by Provider: 11/23/24 12:30 Source: patient Mode of arrival: ambulatory Limitations: no limitations History of Present Illness HPI narrative: 79-year-old male with a notable prior history of C diff presents to the emergency department for evaluation of diarrhea that started this morning, severe in nature per his report. Prior history of C diff last year after he will underwent abscess removal and partial colon resection for what sounds like a diverticular abscess at [facility]. Limited records. It sounds like he developed C diff as a postoperative complication and this was treated with no other complication or relapse. He has not required subsequent treatment in the interim. Reports he was started on a new medication 2 days ago, records reflect that it was prescribed 6 days ago. He reports that he had small caliber stools for a couple of days leading up to the diarrhea starting this morning. No weakness, no fever. He does feel little distended in the abdomen but denies bloody stools, abdominal trauma or severe pain. No nausea or vomiting. Appetite has been normal. No recent abdominal surgeries, no recent colonoscopy. Apparently a polyp was found as part of the resected part of colon, has not had a reason to have a follow-up colonoscopy. He wonders if the new medication could be the culprit. It looks as though this was Lexapro. Denies use of this medication frequently. He admits that he and his both have some memory problems and they are a bit unclear on their details, interview did take quite a while. They are adamant that if this is C diff again, they do not want a new prescription for an antibiotic. They list a medication that is not a known medication to treat this condition and are adamant that this is what they were given. They report they have the bottle here with them somewhere but it cannot be located. It was a rather confusing interview. Past medical history per his report is notable for hypertension, hyperlipidemia and the prior C diff. According Dr. Concepcion notes, also has a history of anxiety. Prior colon resection and C diff as stated above. Does also have a history of COPD. No anticoagulation. ROS is notable for the abdominal symptoms otherwise denies times 12 systems. Related Data Home Medications ?Medication ?Instructions ?Recorded ?Confirmed multivitamin (Multiple Vitamins 1 tab PO QDAY 08/05/22 11/23/24 tablet) cholecalciferol (vitamin D3) 125 125 mcg PO QDAY 10/06/23 11/23/24 mcg (5,000 unit) capsule epinephrine 0.125 mg/actuation 1 puff inhalation Q6H PRN 08/29/24 11/23/24 aerosol inhaler (Primatene Mist) latanoprost 0.005 % eye drops 1 drp ophthalmic (eye) QDAY PRN 08/29/24 11/23/24 ephedrine sulfate 25 mg tablet 25 mg PO Q4H 11/16/24 11/23/24 (Bronkaid Max) Previous Rx's ?Medication ?Instructions ?Recorded nitroglycerin 0.4 mg sublingual 0.4 mg sublingual Q5-15M PRN chest 12/27/23 tablet pain #25 tabs simvastatin 20 mg tablet 20 mg PO QPM #180 tabs 02/08/24 lisinopril 20 mg tablet 20 mg PO DAILY #90 tabs 07/17/24 alprazolam 0.5 mg tablet 0.5 mg PO BID PRN anxiety #30 tabs 09/06/24 escitalopram oxalate 10 mg tablet 10 mg PO QDAY #90 tabs 11/17/24 Allergies Allergy/AdvReac Type Severity Reaction Status Date / Time No Known Allergies Allergy Unknown Unknown Verified 11/23/24 13:49 [facility] Medical History Marital stress ?Z63.0 - Problems in relationship with spouse or partner (ICD-10) Tobacco use (03/07/13) ?Z72.0 - Tobacco use (ICD-10) Osteoarthritis of left knee ?M17.12 - Unilateral primary osteoarthritis, left knee (ICD-10) Spinal stenosis ?M48.00 - Spinal stenosis, site unspecified (ICD-10) Hypertension (02/04/07) ?I10 - Essential (primary) hypertension (ICD-10) Hyperlipidemia (02/04/07) ?E78.5 - Hyperlipidemia, unspecified (ICD-10) Coronary artery disease (09/07/06) ?I25.10 - Atherosclerotic heart disease of [place] coronary artery without angina pectoris (ICD-10) Chronic obstructive pulmonary disease (03/07/13) ?J44.9 - Chronic obstructive pulmonary disease, unspecified (ICD-10) Pulmonary fibrosis ?J84.10 - Pulmonary fibrosis, unspecified (ICD-10) Back pain ?M54.9 - Dorsalgia, unspecified (ICD-10) Osteoarthritis of lumbar spine ?M47.816 - Spondylosis without myelopathy or radiculopathy, lumbar region (ICD-10) Anemia ?D64.9 - Anemia, unspecified (ICD-10) Vitamin D deficiency ?E55.9 - Vitamin D deficiency, unspecified (ICD-10) Anxiety ?F41.9 - Anxiety disorder, unspecified (ICD-10) Trigger thumb of both thumbs ?M65.311 - Trigger thumb, right thumb (ICD-10) ?M65.312 - Trigger thumb, left thumb (ICD-10) Degeneration of intervertebral disc of cervical region ?M50.30 - Other cervical disc degeneration, unspecified cervical region (ICD-10) Osteoarthritis of carpometacarpal joint of left thumb ?M18.12 - Unilateral primary osteoarthritis of first carpometacarpal joint, left hand (ICD-10) Osteoarthritis of carpometacarpal joint of right thumb ?M18.11 - Unilateral primary osteoarthritis of first carpometacarpal joint, right hand (ICD-10) Osteoarthritis of right knee ?M17.11 - Unilateral primary osteoarthritis, right knee (ICD-10) Acquired pes planus of both feet ?M21.41 - Flat foot [pes planus] (acquired), right foot (ICD-10) ?M21.42 - Flat foot [pes planus] (acquired), left foot (ICD-10) Elevated IOP ?H40.059 - Ocular hypertension, unspecified eye (ICD-10) Rosacea (01/01/10) ?L71.9 - Rosacea, unspecified (ICD-10) Erectile dysfunction ?N52.9 - Male erectile dysfunction, unspecified (ICD-10) Asthma (02/04/07) ?J45.909 - Unspecified asthma, uncomplicated (ICD-10) C. difficile colitis ?A04.72 - Enterocolitis due to Clostridium difficile, not specified as recurrent (ICD-10) Health care directive on file ?Z78.9 - Other specified health status (ICD-10) History of tinnitus (09/18/09) ?Z86.69 - Personal history of other diseases of the nervous system and sense organs (ICD-10) Surgical History Status post lumbar spine surgery for decompression of spinal cord ?Z98.890 - Other specified postprocedural states (ICD-10) S/P anal fissurectomy ?Z98.890 - Other specified postprocedural states (ICD-10) ?Z87.19 - Personal history of other diseases of the digestive system (ICD-10) Status post coronary artery stent placement ?Z95.5 - Presence of coronary angioplasty implant and graft (ICD-10) Status post cataract extraction ?Z98.49 - Cataract extraction status, unspecified eye (ICD-10) History of tonsillectomy and adenoidectomy (03/07/13) ?Z90.89 - Acquired absence of other organs (ICD-10) History of rhinoplasty (03/07/13) ?Z98.890 - Other specified postprocedural states (ICD-10) Social History Smoking Status: Current every day smoker What tobacco products do you use: cigarettes Smoking packs per day: 0.5 Smoking cigarettes per day: 10.0 Years smoked: 65 Smoking pack-years: 32.50 Do you use any of these nicotine containing products: None Second hand tobacco smoke exposure: No How often do you have a drink containing alcohol: never How often do you have six or more drinks on one occasion: Never AUDIT-C Alcohol total score: 0 Non-prescribed substance use: denies use service: Yes Exam Const: Vital Signs, click to edit/add: Vital Signs - 24 hr 11/23/24 12:58 Temperature 97.3 F L Pulse Rate [Pulse Oximeter] 85 Respiratory Rate 16 Blood Pressure [Ri ght Upper Arm] 108/55 L Pulse Oximetry 98 Oxygen Delivery Me thod Room Air Documenting provider has reviewed patient's vital signs: yes Other: Mild cognitive impairment, appears well nourished and well hydrated. HENMT: Common normals: moist oral mucous membranes and oropharynx normal Head and scalp: normal to inspection Face and sinus: normal facial exam Mouth: oral and palatal mucosa normal Throat: posterior oropharynx normal Eye: Common normals: conjunctivae normal General eye: normal appearance of both eyes Conjunctiva: conjunctiva(e) normal Neck & C-Spine: Common normals: full ROM and no lymphadenopathy Resp: Common normals: normal respiratory effort, no use of accessory muscles and clear to auscultation bilaterally Effort & inspection: able to speak in complete sentences Auscultation: clear to auscultation bilaterally Cardio: Common normals: regular rate, regular rhythm, S1 normal heart sound and S2 normal heart sound Rate: regular rate Rhythm: regular rhythm Heart sounds: S1 normal and S2 normal GI: Other: Abdomen does seem slightly distended. Bowel sounds are present in all 4 quadrants. He is very distracted and talking with his during the exam is difficult that interpret his tenderness. Does not seem to have rebound tenderness or guarding of any particular area. No obvious mass. Back & Pelvis: Common normals: thoracic and lumbar spine normal to inspection Thoracic spine/upper back: normal to inspection Extremity: Common normals: normal to inspection and normal capillary refill Neuro: Speech: speech normal Motor exam: strength 5/5 throughout Psych: Appearance: grossly normal Activity/motor behavior: appropriate eye contact Insight: fair Judgement: fair Skin: Common normals: no rashes or lesions noted General skin exam: no rashes or lesions noted Course Course ED Course: 7-year-old male with diarrhea suspicious for recurrence of C diff. No recent antibiotic use. No bloody stools. Differential diagnosis so including bowel obstruction, gastroenteritis, volvulus, other intra-abdominal pathology. Recommended CT of the abdomen and pelvis, C diff, stool culture, 500 mL of LR bolus, typical intra-abdominal labs. Await findings. Reevaluation(s) Time of Reevaluation #1: 14:59 Reevaluation #1: Counseled patient on CT findings. Significant leukocytosis. Somehow the comprehensive metabolic panel cut canceled instead of the duplicate C diff test. C diff test is still currently pending. Have clarified with lab and they will be completing the metabolic panel as well. No spoke with the hospitalist and he is in agreement that the patient requires admission. I have spoken with General surgery and I have asked them to consult as well, but we are hoping the patient does not require surgical intervention. Will start vancomycin 250 p.o. q.i.d.. Has been given 500 mL LR bolus. Awaiting final C diff test. Update: Thanks to the sharp chart digging of Dr. Hensley, we have determined that the patient was in fact on doxycycline 3 weeks ago for pneumonia. This certainly could have been the etiology of his C diff. transferred for inpatient care. Vital Signs Vital signs: Initial Vital Signs Temperature 97.3 F L 11/23/24 12:58 Temperature Source Temporal Artery Scan 11/23/24 12:58 Pulse Rate 85 11/23/24 12:58 Respiratory Rate 16 11/23/24 12:58 Blood Pressure 108/55 L 11/23/24 12:58 Blood Pressure Mean 72 11/23/24 12:58 Blood Pressure Position Sitting 11/23/24 12:58 Pulse Oximetry 98 11/23/24 12:58 Oxygen Delivery Method Room Air 11/23/24 12:58 Vital Signs Temperature 97.3 F L 11/23/24 12:58 Pulse Rate 85 11/23/24 12:58 Respiratory Rate 16 11/23/24 12:58 Blood Pressure 108/55 L 11/23/24 12:58 Pulse Oximetry 98 11/23/24 12:58 Oxygen Delivery Method Room Air 11/23/24 12:58 Temperature 97.3 F L 11/23/24 12:58 Pulse Rate 85 11/23/24 12:58 Respiratory Rate 16 11/23/24 12:58 Blood Pressure 108/55 L 11/23/24 12:58 Pulse Oximetry 98 11/23/24 12:58 Oxygen Delivery Method Room Air 11/23/24 12:58 Medications Administered Medications: Discontinued Medications Generic Name Dose Route Start Last Admin Trade Name Freq PRN Reason Stop Dose Admin Sodium Chloride 500 mls @ 500 mls/hr 11/23/24 13:22 11/23/24 14:35 0.9 % Sodium Chloride 500 Ml IV 11/23/24 14:21 Infused .Q1H ONE Infusion Medical Decision Making Lab Data Lab results reviewed: Yes I reviewed the patient's lab results Lab results narrative: Significant leukocytosis, elevated CRP. Overall pattern is quite suspicious for C diff. Update: Remainder of labs have come back and have indicated some mild dehydration with elevated BUN but otherwise reassuring. Labs: Lab Results 11/23/24 11/23/24 Range/Units 13:15 14:58 WBC 21.18 H (4.50-11.00) K/uL RBC 4.18 L (4.30-5.90) m/uL Hgb 13.2 L (13.5-17.5) gm/dL Hct 39.8 (37.0-53.0) % MCV 95 (80-100) fL MCH 32 (26-34) pg MCHC 33 (32-36) gm/dL RDW Coeff of Jose 14.0 (11.5-15.5) % Plt Count 310 (140-440) K/uL Neut % (Auto) 86.2 H (42.0-72.0) % Lymph % (Auto) 4.2 L (20-44) % Bradley % (Auto) 8.8 (0.0-11.0) % Eos % (Auto) 0.2 (0.0-7.0) % Baso % (Auto) 0.1 (0.0-3.0) % Neut # (Auto) 18.30 H (1.7-7.0) K/uL Lymph # (Auto) 0.90 (0.90-2.90) K/uL Bradley # (Auto) 1.90 H (0.00-0.90) K/UL Eos # (Auto) 0.00 (0.00-0.50) K/uL Baso # (Auto) 0.00 (0.00-0.30) K/uL Abs Immat Gran (auto) 0.10 (0.00-0.30) K/uL Imm/Tot Granulo (auto) 0.5 % Sodium 135 (135-149) mmol/L Potassium 4.1 (3.6-5.1) mmol/L Chloride 104 (96-114) mmol/L Carbon Dioxide 20 (20-32) mmol/L Anion Gap 11 (7-15) mEq/L BUN 35 H (7-30) mg/dL Creatinine 1.2 (0.5-1.5) mg/dL Estimated Creat Clear 45.90 Estimated GFR 61 ml/min Glucose 115 (60-115) mg/dL Lactate 2.0 H (0.5-1.9) mmol/L Calcium 9.3 (8.4-10.6) mg/dL Magnesium 1.8 (1.5-2.6) mg/dL Total Bilirubin 1.0 (0.1-1.5) mg/dL AST 56 H (12-35) U/L ALT 22 (4-50) U/L Alkaline Phosphatase 98 (40-150) U/L C-Reactive Protein 8.3 H (0.5-1.0) mg/dL Total Protein 7.4 (6.0-8.3) g/dL Albumin 4.0 (3.3-5.0) g/dL Lab Acknowledgement Test Added Imaging Data CT scan - abdomen: Attestation: I have reviewed the pertinent imaging results. My impression: Inflammation of lower colon, no obvious abscess or free air. No obvious obstruction or inflammation of other organs. Radiologist's impression: FINDINGS: Lung bases: Peripheral reticulation and borderline honeycombing again noted. No new consolidations. Liver: Normal. No mass. Gallbladder and bile ducts: Normal gallbladder. No bile duct dilation. Pancreas: Normal. Spleen: Normal. Adrenal glands: Normal. Kidneys: Normal renal size and position. Normal renal enhancement. There is a 2.7 x 3.7 centimeter right upper pole cyst. Small left lower pole parapelvic cyst and tiny left lower pole cortical cyst. Calcifications appear to be atherosclerotic and not renal calculi. No definitive collecting system calculi. No urinary tract dilation. Urinary bladder: Normal. Pelvis: No cyst or mass. Vessels: Heavy atherosclerosis. Ectasia of the infrarenal abdominal aorta with a maximum diameter of about 2.4 centimeters. Patent mesenteric arteries and veins. Bowel: There is mucosal hyperenhancement with submucosal edema that begins at the mid transverse colon and extends through the rectum. There is a sigmoid anastomotic suture line that is unremarkable. Rectal wall thickening and hyperemia is severe. The inflamed bowel has a normal caliber without dilatation. No pneumatosis. No perirectal abscess. No perianal abscess. The remainder of the bowel has a normal appearance without significant inflammation. Normal appendix. Mild proximal stool burden. Lymph nodes: No adenopathy. Peritoneum: No ascites. No free air. Abdominal wall: High-riding testicle in the left inguinal canal. No bowel containing hernia. Bones: No fractures. No focal worrisome bone lesions. IMPRESSION: Severe proctocolitis. No perforation or abscess. No findings specific to inflammatory bowel disease. No obstruction. There is atherosclerosis but there is not any substantial mesenteric arterial stenosis. Please note that all CT scans at this facility use dose modulation, iterative reconstruction, and/or weight-based dosing when appropriate to reduce radiation dose to as low as reasonably achievable. Dictated by Bozena Raymundo MD @ 11/23/2024 2:28:56 PM
[2024-11-23] MEDS: 0.9 % SODIUM CHLORIDE 500 ML 500 ML IV (13:30)
[2024-11-23 13:31] LABS: Slide Review Reflex No
[2024-11-23 13:42] LABS: Magnesium* 1.8 mg/dL (1.5-2.6)
[2024-11-23 13:45] LABS: C Reactive Protein* 8.3 mg/dL (0.5-1.0)
[2024-11-23 13:55] LABS: CDIFFEPI 027 PRESUMPTIVE NEGATIVE (Negative)
--- OUTSIDE RECORDS SUMMARY | 2024-11-23 14:31 | XMS_ITS | Encounter Summary ---
Author Organization [facility] Address [address] [place] [address] Care Team Providers Care Software Reliability Engineer Name Role Phone No Ref-Primary, Physician Primary Care Provider Juan Pablo Buckley MD Primary Care Provider Encounter Details Date Type Department Care Team (Late st Contact Info) Description 08/17/2023 Orders Only [facility] [address] [place] [address] Carlyn Barba MD [facility] [address] [id number] Social History Tobacco Use Types Packs/Day Years [...] Out C-difficile 08/18/2023 08/18/2023 024 5:02 AM MANAGER [place] C-difficile 08/18/2023 08/18/2023 09/17/2023 11:3 9 PM MANAGER [place] documented as of this encounter Care Teams Software Reliability Engineer Relationship Specialty Start Date End Date No Ref-Primary, Physician PCP - General 03/25/23 10/19/23 Juan Pablo Buckley MD PCP - General Family Medicine 10/20/23 documented as of this encounter
--- OUTSIDE RECORDS SUMMARY | 2024-11-23 14:31 | XMS_ITS | Clinical Summary ---
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
--- OUTSIDE RECORDS SUMMARY | 2024-11-23 14:31 | XMS_ITS | Clinical Summary ---
Author Organization [facility] Address [address] [place] [address] Care Team Providers Care Court Crier Name Role Phone Juan Pablo Buckley MD Primary Care Provider [phone] Allergies No known active allergies Medications simvastatin [...] 2024 05/07/2023, 04/20/2022, 01/01/2022, Additional history exists PHQ-2 (once per calendar year) 2024 INFLUENZA VACCINE (Season Ended) 2025 05/07/2023, 03/11/2022, 04/11/2021, Additional history exists DIABETES SCREENING 10/24/2026 10/25/2023, 0 10/23/2023, 10/22/2023, [...] BLOOD ORDERABLES Final R esult [facility] [address] [facility] (1st floor, no room number) [place] [address] from Last 3 Months or Most Recently Relevant to Health Maintenance Insurance UCARE MEDICARE [employer] MEDICARE Advance Directives For more information, please contact: [phone] * Full Code (Latest Code Status on [...] patie nt/ legal decision maker Care Teams Court Crier Relationship Specialty Start Date End Date Juan Pablo Buckley MD PCP - General Family Medicine 10/20/23
--- OUTSIDE RECORDS SUMMARY | 2024-11-23 14:31 | XMS_ITS | Encounter Summary ---
Author Organization [facility] Address [address] [place] [address] Care Team Providers Care Ditch Repairer Name Role Phone Juan Pablo Buckley MD Primary Care Provider [phone] Encounter Details Date Type Department Care Team (Late st Contact Info) Description 11/19/2023 Orders Only [facility] [address] [place] [id number] Galen Moffett PA-C [facility] [address] [place] [id number] Fatigue (Primary Dx) Social History Tobacco Use [...] fatigue documented in this encounter Care Teams Ditch Repairer Relationship Specialty Start Date End Date Juan Pablo Buckley MD PCP - General Family Medicine 10/20/23 documented as of this encounter
--- OUTSIDE RECORDS SUMMARY | 2024-11-23 14:31 | XMS_ITS | Encounter Summary ---
Author Organization [facility] Address [address] [place] [address] Care Team Providers Care Finished Hardware Erector Name Role Phone No Ref-Primary, Physician Primary Care Provider Juan Pablo Buckley MD Primary Care Provider [phone] Encounter Details Date Type Department Care Team (Late st Contact Info) Description 08/18/2023 Orders Only [facility] [address] [place] [address] Carlyn Barba MD [facility] [address] [id number] C. 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
--- OUTSIDE RECORDS SUMMARY | 2024-11-23 14:31 | XMS_ITS | Clinical Summary ---
Author Organization [facility] Address [address] [place] [address] Phone Care Team Providers Care Hem Marker Name Role Phone Unavailable Primary Care [...] mg by mouth Taper called in to [facility] pharmacy in [place] 125 mg qid x 4 weeks 125 [...] on file Legal Sex Male 10:26 AM [facility] Gender Identity Not on file Sexual Orientation Not on file Plan of Treatment Health Maintenance Due Date Last Done Comments Pneumococcal PPSV23/PCV13 65 + Years / High and Highest Risk (1 of 5 - PCV) 1964 Influenza Vaccine (Season Ended) [address] [place] [id number] PM INTERFACED INSURANCE PM INTERFACED INSURANCE
[2024-11-23 15:17] LABS: Chloride* 104 mmol/L (96-114); Sodium* 135 mmol/L (135-149)
[2024-11-23 15:18] LABS: Potassium* 4.1 mmol/L (3.6-5.1)
[2024-11-23 15:20] LABS: Alanine Aminotransferase* 22 U/L (4-50); Alkaline Phosphatase* 98 U/L (40-150); Aspartate Amino Transferase* 56 U/L (12-35); Blood Urea Nitrogen* 35 mg/dL (7-30); Calcium* 9.3 mg/dL (8.4-10.6); Carbon Dioxide* 20 mmol/L (20-32); Creatinine* 1.2 mg/dL (0.5-1.5); Estimated Glomerular Filt Rate 61 ml/min; Glucose* 115 mg/dL (60-115); Total Protein* 7.4 g/dL (6.0-8.3)
[2024-11-23 15:21] LABS: Anion Gap 11 mEq/L (7-15)
[2024-11-23 15:32] LABS: C.Difficile POSITIVE (Negative)
--- NOTE | 2024-11-23 15:47 | PM.IMHP1 ---
Assessment and Plan Assessment and plan (1) C. difficile colitis: Problem comment: Patient has recurrent C diff colitis. He be hospitalized for IV fluid resuscitation, oral vancomycin and monitoring. Recommend prolonged treatment for this episode as well as consideration for prophylactic treatment with any future course of antibiotics Status: Acute (2) Chronic obstructive pulmonary disease: Problem comment: Not on guideline directed therapy. Recommend smoking cessation. Nicotine replacement for now Status: Acute Plan 79-year-old male with recurrent episode of C diff colitis likely related to recent antibiotics for pneumonia. He is currently got relatively low blood pressure marked elevation of white blood count and CRP. Will do fluid resuscitation and trend. Oral vancomycin. Consider prolonged treatment after hospital discharge as patient appears to be high risk for recurrences.. Total Time Spent Total Time Spent: Total time spent today is 80 minutes in review of outside records, coordination of care and discussion with patient and about ongoing management. Hospitalist- H&P: HPI History of Present Illness Date Seen: 11/23/24 Chief complaint: doesn't have much mobility on legs Narrative: Theodore Wu is a 79 year old male with history of clustered in difficile colitis admitted to the hospital with abrupt onset of fairly severe diarrhea in the last day. History from the patient and his is somewhat vague. She thinks he may have started having loose stools yesterday but primarily today he has had diarrhea. He denies fever or abdominal pain. He has been able to eat and drink without vomiting. Patient's is quite concerned because he is very weak. He apparently has been able to walk with his walker. In the emergency department he was found to have a positive C diff test on his stool and severe proctocolitis on his CT. Previous history of hospitalizations for diverticulitis and C diff colitis: February 2023 he was diagnosed with sigmoid diverticulitis and perforation with abscess. Transfer to the [facility] for possible percutaneous drainage. This was not thought technically possible and he was treated medically. He discharged against medical advice on March 25. 03/27/2023: Readmitted to the hospital with sigmoid diverticulitis and abscess. 07/15/2023: Admitted to the hospital with C diff colitis 08/18/2023: Admitted to the hospital with C diff colitis. Treated with fidaxomicin until surgery in September 2023 10/20/2023: Admitted to the hospital for partial colectomy. Procedure was attempted as laparoscopic and converted to an open procedure. He had a postop ileus. Took oral vancomycin for prophylaxis for C diff after surgery. Other recent medical care: 04/19/2024: Underwent lumbar decompression surgery for spinal stenosis and neuro claudication. No complications after surgery. 11/03/2024: Seen in our emergency department for cough and diagnosed with right middle lobe pneumonia. Treated with ceftriaxone and doxycycline. Respiratory symptoms have largely resolved. 11/17/2024: Seen by primary care provider and started on escitalopram for anxiety. Review of Systems Narrative: Review of systems is negative except as noted above [facility] Medical History (Updated 11/23/24 @ 16:08 by Shaun Hensley MD) C. difficile colitis ?A04.72 - Enterocolitis due to Clostridium difficile, not specified as recurrent (ICD-10) Marital stress ?Z63.0 - Problems in relationship with spouse or partner (ICD-10) Tobacco use (03/07/13) ?Z72.0 - Tobacco use (ICD-10) Osteoarthritis of left knee ?M17.12 - Unilateral primary osteoarthritis, left knee (ICD-10) Spinal stenosis ?M48.00 - Spinal stenosis, site unspecified (ICD-10) Hypertension (02/04/07) ?I10 - Essential (primary) hypertension (ICD-10) Hyperlipidemia (02/04/07) ?E78.5 - Hyperlipidemia, unspecified (ICD-10) Coronary artery disease (09/07/06) ?I25.10 - Atherosclerotic heart disease of [place] coronary artery without angina pectoris (ICD-10) Chronic obstructive pulmonary disease (03/07/13) ?J44.9 - Chronic obstructive pulmonary disease, unspecified (ICD-10) Pulmonary fibrosis ?J84.10 - Pulmonary fibrosis, unspecified (ICD-10) Back pain ?M54.9 - Dorsalgia, unspecified (ICD-10) Osteoarthritis of lumbar spine ?M47.816 - Spondylosis without myelopathy or radiculopathy, lumbar region (ICD-10) Anemia ?D64.9 - Anemia, unspecified (ICD-10) Vitamin D deficiency ?E55.9 - Vitamin D deficiency, unspecified (ICD-10) Anxiety ?F41.9 - Anxiety disorder, unspecified (ICD-10) Trigger thumb of both thumbs ?M65.311 - Trigger thumb, right thumb (ICD-10) ?M65.312 - Trigger thumb, left thumb (ICD-10) Degeneration of intervertebral disc of cervical region ?M50.30 - Other cervical disc degeneration, unspecified cervical region (ICD-10) Osteoarthritis of carpometacarpal joint of left thumb ?M18.12 - Unilateral primary osteoarthritis of first carpometacarpal joint, left hand (ICD-10) Osteoarthritis of carpometacarpal joint of right thumb ?M18.11 - Unilateral primary osteoarthritis of first carpometacarpal joint, right hand (ICD-10) Osteoarthritis of right knee ?M17.11 - Unilateral primary osteoarthritis, right knee (ICD-10) Acquired pes planus of both feet ?M21.41 - Flat foot [pes planus] (acquired), right foot (ICD-10) ?M21.42 - Flat foot [pes planus] (acquired), left foot (ICD-10) Elevated IOP ?H40.059 - Ocular hypertension, unspecified eye (ICD-10) Rosacea (01/01/10) ?L71.9 - Rosacea, unspecified (ICD-10) Erectile dysfunction ?N52.9 - Male erectile dysfunction, unspecified (ICD-10) Asthma (02/04/07) ?J45.909 - Unspecified asthma, uncomplicated (ICD-10) Health care directive on file ?Z78.9 - Other specified health status (ICD-10) History of tinnitus (09/18/09) ?Z86.69 - Personal history of other diseases of the nervous system and sense organs (ICD-10) Surgical History Status post lumbar spine surgery for decompression of spinal cord ?Z98.890 - Other specified postprocedural states (ICD-10) S/P anal fissurectomy ?Z98.890 - Other specified postprocedural states (ICD-10) ?Z87.19 - Personal history of other diseases of the digestive system (ICD-10) Status post coronary artery stent placement ?Z95.5 - Presence of coronary angioplasty implant and graft (ICD-10) Status post cataract extraction ?Z98.49 - Cataract extraction status, unspecified eye (ICD-10) History of tonsillectomy and adenoidectomy (08/13/13) ?Z90.89 - Acquired absence of other organs (ICD-10) History of rhinoplasty (03/07/13) ?Z98.890 - Other specified postprocedural states (ICD-10) Social History (Updated 11/23/24 @ 16:01 by Shaun Hensley MD) Narrative: Patient does not know family history. He is adopted. He lives with his Cynthia. They live on [address] level. He normally walks with a walker or cane. Healthcare power of attorney lawyer he does not needs his daughter Pita who lives in [facility]. Code status is DNR. He smokes about half pack cigarettes a day. Does not drink alcohol. Smoking Status: Current every day smoker What tobacco products do you use: cigarettes Smoking packs per day: 0.5 Smoking cigarettes per day: 10.0 Years smoked: 65 Smoking pack-years: 32.50 Do you use any of these nicotine containing products: None Second hand tobacco smoke exposure: No How often do you have a drink containing alcohol: never How often do you have six or more drinks on one occasion: Never AUDIT-C Alcohol total score: 0 Non-prescribed substance use: denies use service: Yes Meds Home Medications and Allergies Home Medications ?Medication ?Instructions ?Recorded ?Confirmed ?Type multivitamin (Multiple Vitamins 1 tab PO QDAY 08/05/22 11/23/24 History tablet) cholecalciferol (vitamin D3) 125 125 mcg PO QDAY 10/06/23 11/23/24 History mcg (5,000 unit) capsule epinephrine 0.125 mg/actuation 1 puff inhalation Q6H PRN 08/29/24 11/23/24 History aerosol inhaler (Primatene Mist) latanoprost 0.005 % eye drops 1 drp ophthalmic (eye) QDAY PRN 08/29/24 11/23/24 History ephedrine sulfate 25 mg tablet 25 mg PO Q4H 11/16/24 11/23/24 History (Bronkaid Max) Allergies Allergy/AdvReac Type Severity Reaction Status Date / Time No Known Allergies Allergy Unknown Unknown Verified 11/23/24 13:49 Exam Narrative: Exam Narrative: He is alert and appears in no distress. He gives his own history but does not recall significant portions of medical history including his recent treatment with antibiotics. Head is without trauma. Eyes normal. Oropharynx with dry mucous membranes. Neck is supple without mass or adenopathy. Respirations are clear to auscultation. Diminished breath sounds without wheezing rales or rhonchi. Cardiovascular: S1, S2 very distant heart sounds. Regular rhythm. Abdomen: Bowel sounds active. Abdomen is soft he has mild right upper quadrant tenderness no mass no peritonitis. External genitalia normal. Extremities without edema. No tenderness. Intact pulses. Feet are cool to touch with sluggish capillary refill. No rash Const: Vital Signs, click to edit/add: Vital Signs - 24 hr 11/23/24 12:58 Temperature 97.3 F L Pulse Rate [Pulse Oximeter] 85 Respiratory Rate 16 Blood Pressure [Ri ght Upper Arm] 108/55 L Pulse Oximetry 98 Oxygen Delivery Me thod Room Air Documenting provider has reviewed patient's vital signs: yes Hospitalist - H&P: Result Labs Labs: Short CBC 11/23/24 Range/Units 13:15 WBC 21.18 H (4.50-11.00) K/uL Hgb 13.2 L (13.5-17.5) gm/dL Hct 39.8 (37.0-53.0) % Plt Count 310 (140-440) K/uL BMP 11/23/24 14:58 Sodium 135 Potassium 4.1 Chloride 104 Carbon Dioxide 20 BUN 35 H Creatinine 1.2 Glucose 115 Calcium 9.3 Liver Function 11/23/24 Range/Units 14:58 Total Bilirubin 1.0 (0.1-1.5) mg/dL AST 56 H (12-35) U/L ALT 22 (4-50) U/L Alkaline Phosphatase 98 (40-150) U/L Albumin 4.0 (3.3-5.0) g/dL Imaging CT scan - abdomen: Radiologist's impression: INDICATION: Abdominal pain, diarrhea, history of C difficile colitis, rectal pain. COMPARISON: 11/03/2024, 08/31/2023 TECHNIQUE: CT of the abdomen and pelvis with intravenous contrast. Multiplanar axial, coronal, and sagittal reformats were reconstructed. Contrast: 79 mL Isovue 370. FINDINGS: Lung bases: Peripheral reticulation and borderline honeycombing again noted. No new consolidations. Liver: Normal. No mass. Gallbladder and bile ducts: Normal gallbladder. No bile duct dilation. Pancreas: Normal. Spleen: Normal. Adrenal glands: Normal. Kidneys: Normal renal size and position. Normal renal enhancement. There is a 2.7 x 3.7 centimeter right upper pole cyst. Small left lower pole parapelvic cyst and tiny left lower pole cortical cyst. Calcifications appear to be atherosclerotic and not renal calculi. No definitive collecting system calculi. No urinary tract dilation. Urinary bladder: Normal. Pelvis: No cyst or mass. Vessels: Heavy atherosclerosis. Ectasia of the infrarenal abdominal aorta with a maximum diameter of about 2.4 centimeters. Patent mesenteric arteries and veins. Bowel: There is mucosal hyperenhancement with submucosal edema that begins at the mid transverse colon and extends through the rectum. There is a sigmoid anastomotic suture line that is unremarkable. Rectal wall thickening and hyperemia is severe. The inflamed bowel has a normal caliber without dilatation. No pneumatosis. No perirectal abscess. No perianal abscess. The remainder of the bowel has a normal appearance without significant inflammation. Normal appendix. Mild proximal stool burden. Lymph nodes: No adenopathy. Peritoneum: No ascites. No free air. Abdominal wall: High-riding testicle in the left inguinal canal. No bowel containing hernia. Bones: No fractures. No focal worrisome bone lesions. IMPRESSION: Severe proctocolitis. No perforation or abscess. No findings specific to inflammatory bowel disease. No obstruction. There is atherosclerosis but there is not any substantial mesenteric arterial stenosis.
[2024-11-23] MEDS: LACTATED RINGERS 1000 ML 1,000 ML 500 ML IV ×2 (16:10→19:34)
[2024-11-23 16:11] VITALS: BP 115/64; PULSE 79; RESP 15; TEMP 36.7; O2SAT 96; BMI 25.6
[2024-11-23 16:17] VITALS: BP 115/64; PULSE 79; RESP 15; TEMP 36.7; O2SAT 96
[2024-11-23] MEDS: NICOTINE 2 MG LOZENGE BUCCAL (17:17)
[2024-11-23] MEDS: VANCOMYCIN 125 MG CAPSULE 250 MG PO ×2 (17:18→21:27)
[2024-11-23 18:32] VITALS: BP 129/59; PULSE 70; RESP 14; TEMP 36.6; O2SAT 98
[2024-11-23 18:56] LABS: Lactate* 2.8 mmol/L (0.5-1.9)
--- NOTE | 2024-11-23 20:21 | W.PM.CROSSCO ---
Subjective Subjective Time Seen by Provider: 20:00 Date Seen: 11/23/24 Interval history: Patient has C diff colitis. Lactate increased from 2.0-2.8 after initial fluid resuscitation. Ongoing fluid resuscitation. Treated with oral vancomycin. Patient reports feeling fine. Not had any further diarrhea since admission. He is making urine regularly. Blood pressure has been good. No shortness of breath. Objective Objective Data Details: He is alert and oriented. Breathing is unlabored. Abdomen is soft. Unchanged mild tenderness in the right upper quadrant. No peritonitis. Extremities with good perfusion, pulses, capillary refill. Warm to touch. No edema Assessment and Plan Assessment and plan (1) C. difficile colitis: Problem comment: Patient has recurrent C diff colitis. He be hospitalized for IV fluid resuscitation, oral vancomycin and monitoring. Recommend prolonged treatment for this episode as well as consideration for prophylactic treatment with any future course of antibiotics Status: Acute Plan Continue oral vancomycin, IV fluids and monitoring of signs and symptoms of illness.
[2024-11-23] MEDS: ENOXAPARIN 40 MG/0.4 ML INJ SUBCUT (21:27)
[2024-11-23] MEDS: SIMVASTATIN 20 MG TABLET PO (21:27)
[2024-11-23] MEDS: 5 % DEXTROSE IN LAC RINGER'S 1,000 ML 125 ML IV (21:33)
[2024-11-23 22:19] LABS: Lactate* 2.3 mmol/L (0.5-1.9)
--- NOTE | 2024-11-23 22:19 | PC.NURSE ---
Patient admitted for C-diff, Patient tolerating clear liquid diet. Patient received 2 liter bolus and had D5LR @ 125 maintenance fluids infusing. Patient ambulates with SBA, at bedside. Patients bed alarm on for safety.
[2024-11-23 23:00] VITALS: BP 133/57; PULSE 87; RESP 16; TEMP 37.9; O2SAT 92
[2024-11-24] VITALS (8 sets, daily range): BP systolic 110–165; BP diastolic 58–99; PULSE 64–90; RESP 16–18; TEMP 36.6–38.1; O2SAT 94–97
[2024-11-24] MEDS: ACETAMINOPHEN 325 MG TABLET 650 MG PO (02:31)
[2024-11-24] MEDS: 5 % DEXTROSE IN LAC RINGER'S 1,000 ML 125 ML IV ×3 (05:45→21:59)
--- NOTE | 2024-11-24 06:26 | PC.NURSE ---
Shift note: Patient continuous to have the diarrhea both continence and incontinence. He had fever tonight. At that time he appeared confused, uses call light more frequently without knowing the reason for the call. Tylenol given. Ambulated with A1 to and from BR. has been with patient throughout the night.
[2024-11-24 06:52] LABS: Lactate* 1.3 mmol/L (0.5-1.9)
[2024-11-24 07:09] LABS: Basophils Percent Auto 0.1 % (0.0-3.0); Eosinophils Percent Auto 0.8 % (0.0-7.0); Hematocrit 32.4 % (37.0-53.0); Hemoglobin* 10.9 gm/dL (13.5-17.5); Immature Granulocytes Pct Auto 0.8 %; Lymphocytes Percent Auto 10.5 % (20-44); Mean Corpuscular HGB Conc 34 gm/dL (32-36); Mean Corpuscular Hemoglobin 32 pg (26-34); Mean Corpuscular Volume 95 fL (80-100); Monocytes Percent Auto 7.8 % (0.0-11.0); Platelet Count* 274 K/uL (140-440); RDW Coefficient of Variation % 14.2 % (11.5-15.5); Red Blood Count 3.43 m/uL (4.30-5.90)
[2024-11-24 07:17] LABS: Slide Review Reflex No
[2024-11-24 07:37] LABS: Chloride* 105 mmol/L (96-114)
[2024-11-24 07:38] LABS: Potassium* 3.4 mmol/L (3.6-5.1); Sodium* 135 mmol/L (135-149)
[2024-11-24 07:41] LABS: Anion Gap 7 mEq/L (7-15); Blood Urea Nitrogen* 26 mg/dL (7-30); Calcium* 8.9 mg/dL (8.4-10.6); Carbon Dioxide* 23 mmol/L (20-32); Creatinine* 0.8 mg/dL (0.5-1.5); Est. Creatinine Clearance* 55.08; Estimated Glomerular Filt Rate 89 ml/min; Glucose* 104 mg/dL (60-115)
[2024-11-24 07:56] LABS: C Reactive Protein* 21.7 mg/dL (0.5-1.0)
[2024-11-24] MEDS: VANCOMYCIN 125 MG CAPSULE 250 MG PO ×4 (08:50→21:54)
--- NOTE | 2024-11-24 11:02 | PM.IMPN1 ---
Assessment and Plan Assessment and plan (1) C. difficile colitis: Problem comment: - 11/23/2024: Patient has recurrent C diff colitis - first episode 1 year ago fully treated. Now hospitalized for IV fluid resuscitation, oral vancomycin and monitoring. - 11/24/2024: mild to moderate improvement already. - Will need prolonged treatment for this episode, such as vancomycin 125 mg po QID x 2 weeks, then 125 mg po BID x 1 wk, then 125 mg po QD x 1 wk, then 125 mg po q // x 2 wks, then stop, plus prophylactic treatment with any future course of antibiotics. - Should he have another recurrence in the future, will likely need treatment with Fidaxomycin. Status: Acute (2) Spinal stenosis: Problem comment: Lumbar spine, decompression surgery L1 through L4, 04/19/2024 Status: Acute (3) Weakness: Problem comment: - PT and OT consultation in hospital Status: Acute (4) Unsteady gait: Status: Acute Plan 1. Reviewed impression and plan and recommendations with patient and 2. Answered their questions are satisfaction 3. Urge thorough household cleaning and discussed adequate hand washing and other protective measures 4. Will advance diet as tolerated starting tomorrow 5. They are agreeable with above stated plans and recommendations Total Time Spent Total Time Spent: 45 minutes Subjective Date Seen: 11/24/24 Interval history: Admission history of present illness: ?79 year old male with history of clustered in difficile colitis admitted to the hospital with abrupt onset of fairly severe diarrhea in the last day. History from the patient and his is somewhat vague. She thinks he may have started having loose stools yesterday but primarily today he has had diarrhea. He denies fever or abdominal pain. He has been able to eat and drink without vomiting. Patient's is quite concerned because he is very weak. He apparently has been able to walk with his walker. In the emergency department he was found to have a positive C diff test on his stool and severe proctocolitis on his CT. Previous history of hospitalizations for diverticulitis and C diff colitis: February 2023 he was diagnosed with sigmoid diverticulitis and perforation with abscess. Transfer to the [facility] for possible percutaneous drainage. This was not thought technically possible and he was treated medically. He discharged against medical advice on March 25. 03/27/2023: Readmitted to the hospital with sigmoid diverticulitis and abscess. 07/15/2023: Admitted to the hospital with C diff colitis 08/18/2023: Admitted to the hospital with C diff colitis. Treated with fidaxomicin until surgery in September 2023 10/20/2023: Admitted to the hospital for partial colectomy. Procedure was attempted as laparoscopic and converted to an open procedure. He had a postop ileus. Took oral vancomycin for prophylaxis for C diff after surgery. Other recent medical care: 04/19/2024: Underwent lumbar decompression surgery for spinal stenosis and neuro claudication. No complications after surgery. 11/03/2024: Seen in our emergency department for cough and diagnosed with right middle lobe pneumonia. Treated with ceftriaxone and doxycycline. Respiratory symptoms have largely resolved. 11/17/2024: Seen by primary care provider and started on escitalopram for anxiety.? Hospital day 2, 11/24/2024: Feels slightly improved. Has baseline lower extremity weakness in association with spinal stenosis and prior neural surgery interventions. Lower extremity weakness markedly worse over the last couple of days. He thinks this is starting to improve now. Loose stools are less today than yesterday. Appetite slowly improving. Denies nausea or vomiting. Denies abdominal pain. Exam Narrative: Exam Narrative: Examined patient in his hospital room with his present as well. Appears comfortable no acute distress. Able to independently transfer from supine to sitting position on edge of bed. Lungs are clear to auscultation save some end inspiratory rales bibasilarly. Initially had some rhonchi that cleared with coughing. No wheezing. Chest wall excursions are full. Heart tones with regular rhythm, normal S1-S2. Abdomen with active bowel sounds, soft, nontender. No rebound or guarding. Appearance of being mildly distended. Extremities with trace edema pretibially bilaterally. Cool extremities. Capillary refill less than 3 seconds upper and lower extremities. Const: Vital Signs, click to edit/add: Vital Signs - 24 hr 11/23/24 12:58 11/23/24 16:11 11/23/24 16:11 Temperature 97.3 F L 98.0 F Pulse Rate [Pulse Oximeter] 85 Pulse Rate [Right Pulse Oximeter] 79 Respiratory Rate 16 15 15 Blood Pressure [Le ft Arm] 115/64 Blood Pressure [Ri ght Upper Arm] 108/55 L Pulse Oximetry 98 96 96 Oxygen Delivery Me thod Room Air Room Air Room Air 11/23/24 16:17 11/23/24 18:32 11/23/24 23:00 Temperature 98.0 F 97.9 F Pulse Rate [Pulse Oximeter] Pulse Rate [Right Pulse Oximeter] 79 70 87 Respiratory Rate 15 14 16 Blood Pressure [Le ft Arm] 115/64 129/59 L Blood Pressure [Ri ght Upper Arm] Pulse Oximetry 96 98 Oxygen Delivery Me thod Room Air Room Air 11/23/24 23:00 11/24/24 02:27 11/24/24 02:31 Temperature 100.3 F H 100.6 F H 100.6 F H Pulse Rate [Pulse Oximeter] Pulse Rate [Right Pulse Oximeter] 87 86 Respiratory Rate 16 16 Blood Pressure [Le ft Arm] 133/57 L 110/86 Blood Pressure [Ri ght Upper Arm] Pulse Oximetry 92 94 Oxygen Delivery Me thod Room Air Room Air Labs Labs: Laboratory Results - last 24 hr 11/23/24 11/23/24 11/23/24 13:05 13:15 14:58 WBC 21.18 H RBC 4.18 L Hgb 13.2 L Hct 39.8 MCV 95 MCH 32 MCHC 33 RDW Coeff of Jose 14.0 Plt Count 310 Neut % (Auto) 86.2 H Lymph % (Auto) 4.2 L Woods % (Auto) 8.8 Eos % (Auto) 0.2 Baso % (Auto) 0.1 Neut # (Auto) 18.30 H Lymph # (Auto) 0.90 Woods # (Auto) 1.90 H Eos # (Auto) 0.00 Baso # (Auto) 0.00 Abs Immat Gran (auto) 0.10 Imm/Tot Granulo (auto) 0.5 Sodium 135 Potassium 4.1 Chloride 104 Carbon Dioxide 20 Anion Gap 11 BUN 35 H Creatinine 1.2 Estimated Creat Clear 45.90 Estimated GFR 61 Glucose 115 Lactate 2.0 H Calcium 9.3 Magnesium 1.8 Total Bilirubin 1.0 AST 56 H ALT 22 Alkaline Phosphatase 98 C-Reactive Protein 8.3 H Total Protein 7.4 Albumin 4.0 Stl C. diff Tox B Gene POSITIVE A* Stl C. diff [id number] PRESUMPTIVE NEGATIVE Lab Acknowledgement Test Added 11/23/24 11/23/24 11/24/24 17:00 22:15 06:02 WBC 17.20 H RBC 3.43 L Hgb 10.9 L Hct 32.4 L MCV 95 MCH 32 MCHC 34 RDW Coeff of Jose 14.2 Plt Count 274 Neut % (Auto) 80.0 H Lymph % (Auto) 10.5 L Woods % (Auto) 7.8 Eos % (Auto) 0.8 Baso % (Auto) 0.1 Neut # (Auto) 13.80 H Lymph # (Auto) 1.80 Woods # (Auto) 1.30 H Eos # (Auto) 0.10 Baso # (Auto) 0.00 Abs Immat Gran (auto) 0.10 Imm/Tot Granulo (auto) 0.8 Sodium 135 Potassium 3.4 L Chloride 105 Carbon Dioxide 23 Anion Gap 7 BUN 26 Creatinine 0.8 Estimated Creat Clear 55.08 Estimated GFR 89 Glucose 104 Lactate 2.8 H 2.3 H 1.3 Calcium 8.9 Magnesium Total Bilirubin AST ALT Alkaline Phosphatase C-Reactive Protein 21.7 H Total Protein Albumin Stl C. diff Tox B Gene Stl C. diff [id number] Lab Acknowledgement Imaging CT scan - abdomen: Attestation: I have reviewed the pertinent imaging results. Radiologist's impression: IMPRESSION: Severe proctocolitis. No perforation or abscess. No findings specific to inflammatory bowel disease. No obstruction. There is atherosclerosis but there is not any substantial mesenteric arterial stenosis.
[2024-11-24] MEDS: POTASSIUM BICARB 25 MEQ EFFERVESCENT TAB PO ×2 (11:23→13:53)
--- NOTE | 2024-11-24 16:54 | PC.SOCIAL ---
Social work consult: gas pit worker left a message for pt's , Cynthia, this afternoon asking for a call back if she had any questions or concerns to discuss. Social work to follow-up as needed.
--- NOTE | 2024-11-24 17:23 | PC.NURSE ---
Addendum entered by Aurea Deras RN 11/24/24 18:36: Supervisor Pipe Manufacture assisted patient to BR this evening, the patient shuffled and did not tolerate this well. He became quite frustrated when trying to pull his brief down to urinate. Incontinent of smears of stool in his brief multiple times this shift. The patient also could not lay himself down correctly in bed or scoot up into bed without assistance. Aurea Original Note: The patient is alert and orientated to self, month and year... although was disorientated to place. The patient reports no abdominal discomfort this shift, active bowel sounds. The patient has had 4 episodes of small loose stools this shift. Advanced to a full liquid diet with no issues. SBA w/ RW to the BR PRN. The patient declined walking in the hallway after multiple attempts to do so. No reports of pain. R AC IV infusing fluids @ 125. The patients is present this afternoon, call light within reach. Afebrile the whole day shift. Aurea MELÉNDEZ BSN
[2024-11-24] MEDS: ENOXAPARIN 40 MG/0.4 ML INJ SUBCUT (21:52)
[2024-11-24] MEDS: SODIUM CHLORIDE 0.9 % (FLUSH) 10 ML SYRINGE 5 ML IVF (21:53)
[2024-11-24] MEDS: SIMVASTATIN 20 MG TABLET PO (21:54)
[2024-11-25 02:36] VITALS: BP 160/83; PULSE 71; RESP 20; O2SAT 93
[2024-11-25 02:48] VITALS: RESP 20
[2024-11-25] MEDS: IPRAT-ALBUT 0.5-2.5 MG/3 ML NEB 1 NEB IH (05:55)
--- NOTE | 2024-11-25 06:34 | PC.NURSE ---
19-: pleasant and cooperative. appears much improved from prev shift with pt. SBA with gb and walker. VSS. pt c/o wheezing and dyspnea around 0230, audible wheeze when walked into rm. Updated MD, received order for DuoNeb, given x 1 - pt stated it offered relief, mild exp wheeze auscultated post neb treatment, encouraging breathing exercises. D/c'd IVF as well.
[2024-11-25 06:41] LABS: Basophils Percent Auto 0.2 % (0.0-3.0); Eosinophils Percent Auto 2.5 % (0.0-7.0); Hemoglobin* 11.9 gm/dL (13.5-17.5); Immature Granulocytes Pct Auto 0.4 %; Lymphocytes Percent Auto 16.2 % (20-44); Mean Corpuscular HGB Conc 34 gm/dL (32-36); Mean Corpuscular Hemoglobin 32 pg (26-34); Mean Corpuscular Volume 95 fL (80-100); Monocytes Percent Auto 6.1 % (0.0-11.0); Neutrophils Percent Auto 74.6 % (42.0-72.0); Platelet Count* 285 K/uL (140-440)
[2024-11-25 06:46] LABS: Slide Review Reflex No
[2024-11-25 06:48] LABS: Chloride* 106 mmol/L (96-114)
[2024-11-25 06:49] LABS: Potassium* 3.4 mmol/L (3.6-5.1); Sodium* 137 mmol/L (135-149)
[2024-11-25 06:51] LABS: Blood Urea Nitrogen* 11 mg/dL (7-30); Creatinine* 0.8 mg/dL (0.5-1.5); Est. Creatinine Clearance* 55.08; Estimated Glomerular Filt Rate 89 ml/min
[2024-11-25 06:52] LABS: Anion Gap 3 mEq/L (7-15); Calcium* 8.8 mg/dL (8.4-10.6); Carbon Dioxide* 28 mmol/L (20-32); Glucose* 85 mg/dL (60-115)
[2024-11-25 08:26] VITALS: BP 139/76; PULSE 72; RESP 20; TEMP 36.6; O2SAT 96
[2024-11-25] MEDS: VANCOMYCIN 125 MG CAPSULE 250 MG PO ×2 (08:27→13:45)
[2024-11-25] MEDS: ESCITALOPRAM 10 MG TABLET PO (08:27)
[2024-11-25] MEDS: SODIUM CHLORIDE 0.9 % (FLUSH) 10 ML SYRINGE 5 ML IVF (08:28)
[2024-11-25 09:17] LABS: C Reactive Protein* 17.5 mg/dL (0.5-1.0)
[2024-11-25] MEDS: POTASSIUM CHLORIDE 10 MEQ CAPSULE ER 40 MEQ PO (10:14)
[2024-11-25 11:01] VITALS: BP 178/87; PULSE 75; RESP 18; TEMP 36.8; O2SAT 95
--- NOTE | 2024-11-25 15:08 | PC.NURSE ---
Discharge Note: The patient was educated along with his regarding the discharge plan for out patient therapies, and appt follow up. Informed him that he is still weak, so he should be using the walker to ambulate. High fiber diet was recommended due to CDIFF and colitis. Prescriptions were sent to [facility] for greens picker. All belongings were sent home with the patient. No N/V. Has some intermittent confusion as well. Aurea MELÉNDEZ BSN
--- NOTE | 2024-11-25 15:58 | PM.DS1 ---
DS: Providers Provider Date Seen: 11/25/24 Date of admission: 11/23/24 16:09 Primary care physician: Marco A Buckley MD Admitting Clinician: Waldo Sosa MD Consults: 11/23/24 15:03 Consult to Physician [CONS] Urgent Comment: Consulting Provider: Christopher Luna Has provider been notified: Yes 11/23/24 16:11 Consult to Occupational Therapy [CONS] Routine Comment: Reason(s) for OT Consult:: Evaluate and Treat Any Restrictions?:: No Restrictions Consult to Physical Therapy [CONS] Routine Comment: Reason(s) for PT Consult:: Evaluate and Treat Any Restrictions?:: No Restrictions 11/25/24 13:18 Consult to Occupational Therapy [CONS] Routine Comment: Reason(s) for OT Consult:: Evaluate and Treat Any Restrictions?:: No Restrictions Comment: cognitive Attending Physician on discharge: Waldo Sosa MD Date of Discharge: 11/25/24 DS: Diagnosis Discharge Diagnosis (1) C. 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 Now hospitalized for IV fluid resuscitation, oral vancomycin and monitoring. - 11/24/2024: mild to moderate improvement already. - Will need prolonged treatment for this episode, such as vancomycin 125 mg po QID x 2 weeks, then 125 mg po BID x 1 wk, then 125 mg po QD x 1 wk, then 125 mg po q M/W/F x 2 wks, then stop, plus prophylactic treatment with any future course of antibiotics. - Should he have another recurrence in the future, will likely need treatment with Fidaxomycin. (2) Weakness: Status: Acute Problem details: - PT and OT consultation in hospital (3) Unsteady gait: Status: Acute (4) Spinal stenosis: Status: Acute Problem details: Lumbar spine, decompression surgery L1 through L4, 04/19/2024 (5) Hypertension: Status: Acute (6) Hyperlipidemia: Status: Acute (7) Coronary artery disease: Status: Acute Problem details: s/p stent 2004, Circumflex artery (8) Chronic obstructive pulmonary disease: Status: Acute Problem details: Not on guideline directed therapy. Recommend smoking cessation. 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 History from the patient and his is somewhat vague. She thinks he may have started having loose stools yesterday but primarily today he has had diarrhea. He denies fever or abdominal pain. He has been able to eat and drink without vomiting. Patient's is quite concerned because he is very weak. He apparently has been able to walk with his walker. In the emergency department he was found to have a positive C diff test on his stool and severe proctocolitis on his CT. Previous history of hospitalizations for diverticulitis and C diff colitis: February 2023 he was diagnosed with sigmoid diverticulitis and perforation with abscess. Transfer to the [facility] for possible percutaneous drainage. This was not thought technically possible and he was treated medically. He discharged against medical advice on March 25. 03/27/2023: Readmitted to the hospital with sigmoid diverticulitis and abscess. 07/15/2023: Admitted to the hospital with C diff colitis 08/18/2023: Admitted to the hospital with C diff colitis. Treated with fidaxomicin until surgery in September 2023 10/20/2023: Admitted to the hospital for partial colectomy. Procedure was attempted as laparoscopic and converted to an open procedure. He had a postop ileus. Took oral vancomycin for prophylaxis for C diff after surgery. Other recent medical care: 04/19/2024: Underwent lumbar decompression surgery for spinal stenosis and neuro claudication. No complications after surgery. 11/03/2024: Seen in our emergency department for cough and diagnosed with right middle lobe pneumonia. Treated with ceftriaxone and doxycycline. Respiratory symptoms have largely resolved. 11/17/2024: Seen by primary care provider and started on escitalopram for anxiety.? Hospital day 2, 11/24/2024: Feels slightly improved. Has baseline lower extremity weakness in association with spinal stenosis and prior neural surgery interventions. Lower extremity weakness markedly worse over the last couple of days. He thinks this is starting to improve now. Loose stools are less today than yesterday. Appetite slowly improving. Denies nausea or vomiting. Denies abdominal pain. Hospital day 3, 11/25/2024: He states he is back to baseline in terms of his ability to walk. Physical therapy and occupational therapy determined that it is safe for him to return to his own. Patient agreeable to outpatient physical therapy and occupational therapy assessment and treatment of his weakness and evolving cognitive loss. Status at Discharge Functional status at discharge: uses cane/walker Overall status at discharge: patient is progressing back to baseline Time Spent with Patient Time attestation: Total time spent providing and/or coordinating discharge services: Time spent: Greater than 30 minutes Exam Narrative: Exam Narrative: Examined patient in his hospital room with his present as well. Appears comfortable no acute distress. Able to independently transfer from supine to sitting position on edge of bed. Lungs are clear to auscultation save some end inspiratory rales bibasilarly. Initially had some rhonchi that cleared with coughing. No wheezing. Chest wall excursions are full. Heart tones with regular rhythm, normal S1-S2. Abdomen with active bowel sounds, soft, nontender. No rebound or guarding. Appearance of being mildly distended. Extremities with trace edema pretibially bilaterally. Cool extremities. Capillary refill less than 3 seconds upper and lower extremities. Ambulating with walker in room without assistance. Const: Vital Signs, click to edit/add: Vital Signs - 24 hr 11/24/24 19:45 11/24/24 23:00 11/25/24 02:36 Temperature 98.2 F 98.3 F Pulse Rate [Right Pulse Oximeter] 78 76 71 Respiratory Rate 16 18 20 Blood Pressure [Le ft Arm] 163/80 H 149/99 H 160/83 H Pulse Oximetry 97 94 93 Oxygen Delivery Me thod Room Air Room Air Room Air 11/25/24 02:48 11/25/24 08:26 11/25/24 11:01 Temperature 97.9 F 98.2 F Pulse Rate [Right Pulse Oximeter] 72 75 Respiratory Rate 20 20 18 Blood Pressure [Le ft Arm] 139/76 178/87 H Pulse Oximetry 96 95 Oxygen Delivery Me thod Room Air Room Air DS: Data Data Completed and Pending Labs on day of discharge: Labs from last 24 hours 11/25/24 05:48 WBC 13.00 H RBC 3.70 L Hgb 11.9 L Hct 35.0 L MCV 95 MCH 32 MCHC 34 RDW Coeff of Jose 14.0 Plt Count 285 Neut % (Auto) 74.6 H Lymph % (Auto) 16.2 L Mercer % (Auto) 6.1 Eos % (Auto) 2.5 Baso % (Auto) 0.2 Neut # (Auto) 9.70 H Lymph # (Auto) 2.10 Mercer # (Auto) 0.80 Eos # (Auto) 0.30 Baso # (Auto) 0.00 Abs Immat Gran (auto) 0.10 Imm/Tot Granulo (auto) 0.4 Sodium 137 Potassium 3.4 L Chloride 106 Carbon Dioxide 28 Anion Gap 3 L BUN 11 Creatinine 0.8 Estimated Creat Clear 55.08 Estimated GFR 89 Glucose 85 Calcium 8.8 C-Reactive Protein 17.5 H Preliminary micro results at discharge 11/23/24 16:41 Stool Culture - Preliminary Stool Imaging CT scan - abdomen: Radiologist's impression: IMPRESSION: Severe proctocolitis. No perforation or abscess. No findings specific to inflammatory bowel disease. No obstruction. There is atherosclerosis but there is not any substantial mesenteric arterial stenosis. Discharge Plan Discharge Disposition: Home, Self-Care Date of Admission: 11/23/24 16:09 Attending Provider on Discharge: Waldo Soas Consulting Providers: Christopher Luna Primary Care Provider: Marco A Buckley Condition: Improved Anticipated Discharge Date/Time: 11/25/24 14:30 Discharge Medications: New vancomycin 250 mg capsule 250 mg PO QID Qty: 70 0RF Rx Instructions: 1 capsule orally 4 times daily for 10 days, then 1 capsule orally 2 times daily x 7 days, then 1 capsule orally daily x 7 days, then 1 capsule every Wednesday/Wednesday/Wednesday for 2 weeks, then stop. Continued cholecalciferol (vitamin D3) 125 mcg (5,000 unit) capsule 125 mcg PO DAILY multivitamin [Multiple Vitamins] Tablet 1 tab PO DAILY latanoprost 0.005 % drops 1 drp ophthalmic (eye) DAILY PRN Primatene Mist 0.125 mg/actuation HFA aerosol inhaler 1 puff inhalation Q6H PRN Rx Instructions: may repeat once after 1 minute Bronkaid Max 25 mg tablet 25 mg PO Q4H simvastatin 20 mg tablet 20 mg PO HS escitalopram oxalate 10 mg tablet 10 mg PO DAILY nitroglycerin 0.4 mg tablet, sublingual 0.4 mg sublingual Q5-15M PRN (Reason: chest pain) Qty: 25 1RF Rx Instructions: PRN CHEST PAIN/ MAX 3 DOSES lisinopril 20 mg tablet 20 mg PO DAILY Qty: 90 3RF alprazolam 0.5 mg tablet 0.5 mg PO BID PRN (Reason: anxiety) Qty: 30 2RF Discharge Orders: Discharge Order (Routine); Ordered 11/25/24 Ordered By: Waldo Sosa Patient Education: Vancomycin (By mouth), C. Diff (Clostridioides Difficile) Infection (DC) Additional Instructions: 1. Follow-up with primary healthcare receptionist in 2-3 weeks; 2. Recommend outpatient Physical therapy and Occupational therapy assessment and treatment due to increased lower extremity weaknes and declining ability to safely ambulate, and evolving cognitive decline Activity Level: Activity as Tolerated and Use Walker Activity Detail: Strive to be as safely independent as possible for as long as possible Discharge Diet: Regular and High Fiber Follow Up Appointments: Marco A Buckley MD [Primary Care Provider] - 12/06/24 3:15 pm ([facility] for hospital follow-up.) Forms: [employer] Info Instructions
--- NOTE | 2024-11-30 14:15 | PC.SOCIAL ---
Social work consult: child care worker spoke to pt's , Cynthia, today via phone as a follow-up from the pt's discharge this past weekend. Pt's stated that she had concerns about the pt coming home because he was dependant on his to do everything for him and she stated that she just doesn't have the physical strength to do that anymore. Pt's stated that things have been going well since he discharged back home and that he has been doing things on his own and he will plan to go to outpatient occupational and physical therapy. Pt's has social media senior associate contact number if anything should come up and she needs help with resources or more information. Social work to follow-up as needed.
== END 2024-11-25 15:00 | disposition home or self-care (01) | DRG 372 ==
LOC: ED 14:28 → MEDSURG 15:20
PROVIDERS: Admitting Provider Family Medicine; Emergency Provider Family Medicine; PCP Family Medicine; Visit Provider Family Medicine
DX: A04.71 Enterocolitis due to Clostridium difficile, recurrent (principal); K51.20 Ulcerative (chronic) proctitis without complications; R26.81 Unsteadiness on feet; R53.1 Weakness; J84.10 Pulmonary fibrosis, unspecified; J44.9 Chronic obstructive pulmonary disease, unspecified; I25.10 Atherosclerotic heart disease of native coronary artery without angina pectoris; I10 Essential (primary) hypertension; M48.061 Spinal stenosis, lumbar region without neurogenic claudication; F17.210 Nicotine dependence, cigarettes, uncomplicated; F41.9 Anxiety disorder, unspecified; E78.5 Hyperlipidemia, unspecified; Z63.0 Problems in relationship with spouse or partner; Z90.49 Acquired absence of other specified parts of digestive tract; Z95.5 Presence of coronary angioplasty implant and graft; Z87.19 Personal history of other diseases of the digestive system; M47.896 Other spondylosis, lumbar region
CPT/HCPCS: 36415; 51798; 74177; 80048; 80053; 83605; 83735; 83789; 85025; 86140; 87045; 87046; 87427; 87493; 97161; 97165; 99284; 99285; A9270; J1650; J7030; J7120; Q9967

== ENCOUNTER 2025-01-03 11:04 | Outpatient (RCR) | payer MEDICARE, SELFPAY ==
--- NOTE | 2025-01-03 11:58 | PT.OPEX ---
PT [place] Outpatient Eval PT [facility] Outpatient Eval Start: 12/11/24 17:05 Freq: Status: Active Protocol: Document 01/03/25 07:05 MLS (Rec: 01/03/25 11:56 MLS [email or web address]) E-signed By Candis Lee DPT Physical Therapy Outpatient Evaluation Insurance Information Recert Due Date 04/02/25 Insurance Name Medicare B,[employer]are Medical Diagnosis M62.81 Muscle weakness M54.50 LBP Treating Diagnosis Bilateral LE weakness, spinal stenosis and cognitive decline (per referrel) Referring MD Dr. Marcio Lei Preferred Name Estevan Lei Patient is a 79 year old male who presents to physical therapy with signs and symptoms consistent with generalized m weakness and spinal stenosis. He is here today with his Cynthia. He states that he had back surgery about a year ago and he was on Vantamyacin for c diff. He reports that it knocked out his immune system. He states that the last year he has noticed a significant decrease in strength. He reports that last year he had a lumbar surgery to clean it out but can 't remember the name or location. He states that he is doing worse since his lumbar surgery. He states that he would like a home program because he has a high copay. He goes to the [address] [place] [address] and uses the [facility] 15- 20 min a day. He reports that too much activity will tire his legs out. He reports that he has not had any falls for a few months. His last fall was when he had pneumonia. Significant past medical history includes COPD, coronary occlusion (20 years ago), skin cancer. Patient would like to get a home program to strengthen his legs through physical therapy sessions. Pain Comments Today: 3-4/10 on a 0-10 pain scale with 10 = extreme pain At its worst: 10/10 At its best: 3/10 Current Work Status Retired Objective Other/Pertinent GAIT/FUNCTIONAL MOBILITY Objective Ambulates with forward flexed posture and uses SPC today and FWW Romberg eyes open: 30 sec with perturbation Romberg eyes closes: 10 sec 30 second sts: 5 5 time sts: 30 sec Age Bracket Time (sec) 60-69 yo 11.4 / 70-79 yo 12.6 / 80-89 yo 14.8 TUG 20 sec - 13.5 seconds is cut off for norm 60 ? 69 years 8.1 (7.1 ? 9.0) / 70 ? 79 years 9.2 (8.2 ? 10.2) / 80 ? 99 years 11.3 (10.0 ? 12.7) LLE MMT: Hip flexion: R 4-/5 L 4+/5 Hip abduction: R 4-/5 L 3+/5 Hip extension: R 3+/5 L 3+/5 Knee flexion: R 4-/5 L 4-/5 Knee extension: R 4-/5 L 4-/5 Access Code: [email or web address] URL: [email or web address] Date: 01/03/2025 Prepared by: Candis Lee Exercises - Supine Bridge - 1 x daily - 7 x weekly - 3 sets - 10 reps - Sidelying Hip Abduction - 1 x daily - 7 x weekly - 3 sets - 10 reps - Supine Active Straight Leg Raise - 1 x daily - 7 x weekly - 3 sets - 10 reps - Supine Heel Slide - 1 x daily - 7 x weekly - 3 sets - 10 reps - Seated Long Arc Quad - 1 x daily - 7 x weekly - 3 sets - 10 reps - Seated Heel Toe Raises - 1 x daily - 7 x weekly - 3 sets - 10 reps Access Code: [email or web address] URL: [email or web address] Date: 01/03/2025 Prepared by: Candis Lee Exercises - Standing Hip Abduction with Counter Support - 1 x daily - 7 x weekly - 3 sets - 10 reps - Standing Hip Extension with Counter Support - 1 x daily - 7 x weekly - 3 sets - 10 reps - Standing March with Counter Support - 1 x daily - 7 x weekly - 3 sets - 10 reps - Mini Squat with Counter Support - 1 x daily - 7 x weekly - 3 sets - 10 reps - Heel Raises with Counter Support - 1 x daily - 7 x weekly - 3 sets - 10 reps - Standing Hip Flexion with Counter Support - 1 x daily - 7 x weekly - 3 sets - 10 reps - Standing Knee Flexion with Unilateral Counter Support - 1 x daily - 7 x weekly - 3 sets - 10 reps Functional Test Fulton Balance Test Performed & Score Assessment Assessment/ Pt is a 79 year old male who presents with concerns of Impression generalized muscle weakness and spinal stenosis. Patient also has notable objective findings including limited ROM, tenderness to palpation, and decreased strength which are also likely contributing to the problem. Patient is a good candidate for skilled therapy to target deficits described above. Skilled PT intervention is necessary for use of therapeutic exercise manual therapy, neuromuscular re-education, gait training, and therapeutic activity. Functional impairments include difficulty with: standing, walking, exercising, and ADLs. See appropriate sections of PT eval for complete list of goals and POC. D/C plan and criteria is for pt to achieve the goals as listed below or until max rehab potential is met. Pt was agreeable with plan of care and goals established. Primary Functional standing Limitations walking exercising ADLS Plan of Care Rehabilitation Good Potential Physical Therapy Within 10-12 weeks: Goals 1.Pt will demonstrate independence in performance of home exercise program with the use of video and/or handouts in order to optimize functional mobility and reduce risk for re-injury. 2.Pt will demonstrate consistent HEP compliance to ensure progress in reaching established goals during course of care. 3.Patient will be able to do yard work for 30 minutes without pain. 4.Patient will report pain levels <2/10 with all activities in order to improve functional mobility at home, work and during functional leisure activities. 5.Patient is able to sleep without waking more than one time due to pain in a 6-8 hour time frame. 6.Patient will be able to walk up to one mile without pain. 7.Patient will be able to bend and lift household items from the floor to shoulder height to perform ADLs without pain. 8.Pt will be able to ascend/descend 1 flight of stairs in order to perform ADLs pain free. 9.Pt will exhibit 5 pt improvement in Fulton Balance Test to demonstrate functional improvement and progress towards goals Coordination/ Referral Source Communication With Treatment Plan/ Joint Mobilization,Manual Therapy,Neuromuscular Re-ed, Direct Interventions Therapeutic Activities,Therapeutic Exercises Patient Will Be Independently Progressing Discharged From Therapy Evaluation Billing Untimed Code 30 Treatment Minutes Complexity Low Certification Information Provider Signature Yes Required Provider Signature POC & Medical Necessity Shows Agreement With Physician NPI Number Write NPI# Here Physician Comment/ : Change Physician Signature Please Sign/Date Here & Date Requested
== END 2025-03-23 15:27 | disposition home or self-care (01) ==
PROVIDERS: PCP Family Medicine; Visit Provider Family Medicine
DX: M54.50 Low back pain, unspecified (principal); M62.81 Muscle weakness (generalized); Z51.89 Encounter for other specified aftercare
CPT/HCPCS: 97110; 97161